=== PATIENT | female | born 1935 | race Caucasian/White ===

== ENCOUNTER → 2017-10-12 11:05 | Outpatient (CLI) | payer MEDICARE, SELFPAY ==
[2017-10-12 15:52] LABS: Absolute Lymphocyte Count 2.11 X10^3/ul (0.83-4.51); Absolute Neutrophil Count 4.8 X10^3/uL (2.0-7.7); Basophil# 0.07 X10^3/uL; Basophil% 0.9 % (0-1); Eosinophils% 1.3 % (0-5); Hematocrit 35.8 % (37-47); Hemoglobin 11.7 g/dl (12.0-15.0); Lymphocyte # 2.11 X10^3/ul (4.0); Lymphocyte % 27.9 % (19-41); Mean Corp Hgb Conc 32.7 g/gl (32-36); Mean Corpuscular Hgb 29.8 pg (27.0-32.0); Mean Corpuscular Volume 91.1 fL (81-99); Mean Platelet Vol. 10.2 fl (6.2-12.0); Monocyte# 0.51 X10^3/uL; Monocyte% 6.7 % (0-10); Neutrophil # 4.77 X10^3/uL (2.7-7.7); Neutrophil % 63.1 % (47-70); Platelet Count 355 K/mm3 (150-450); RBC Distribution Width CV 13.1 % (11.6-14.6); RBC Distribution Width SD 43.2 fl (35.1-43.9); Red Blood Count 3.93 M/mm3 (4.2-5.4); White Blood Count 7.6 K/mm3 (4.4-11.0)
[2017-10-12 16:01] LABS: POSITIVE COUNT NO; POSITIVE DIFFERENTIAL NO; POSITIVE MORPHOLOGY NO
[2017-10-12 16:15] LABS: ALB/GLOB Ratio 0.9 RATIO (0.9-2.4); AST(SGOT) 16 U/L (15-37); Alanine Aminotransfer ALT/SGPT 18 U/L (13-56); Albumin, Serum 3.4 g/dL (3.2-5.0); Alkaline Phosphatase 74 U/L (45-117); Anion Gap 10 (5-15); BUN 19 mg/dL (7-18); CRP 5.39 mg/L (0.0-3.0); Calcium,Total 8.9 mg/dL (8.5-10.1); Chloride 105 mmol/L (98-107); Creatinine, Serum 0.79 mg/dL (0.55-1.02); EST Glomerular Filtration Rate 74 mL/min (>60); Est Glom Filt Rate - Afr Amer 89 mL/min (>60); Globulin 3.6 g/dL (2.2-4.2); Glucose 134 mg/dL (74-106); Potassium 3.9 mmol/L (3.5-5.1); Sodium Level 140 mmol/L (136-145)
[2017-10-12 16:29] LABS: Erythrocyte Sedimentation Rate 13 mm/hr (0-30)
== END ==
PROVIDERS: Family Provider Family Medicine; PCP Family Medicine; Visit Provider Family Medicine
DX: R19.7 Diarrhea, unspecified (principal)
CPT/HCPCS: 36415; 80053; 85025; 85652; 86140

== ENCOUNTER → 2017-10-26 10:35 | Outpatient (CLI) | payer OTHER, SELFPAY ==
[2017-10-26 12:29] LABS: Vitamin B12 801 pg/mL (211-911)
[2017-10-26 12:40] LABS: Ferritin 54 ng/mL (8-252); Iron 81 ug/dL (50-170); T4 Free Direct 1.25 ng/dL (0.76-1.46); Thyroid Stim Hormone (TSH) 2.53 uIU/mL (0.358-3.74)
== END ==
PROVIDERS: Family Provider Family Medicine; PCP Family Medicine; Visit Provider Family Medicine
DX: E03.9 Hypothyroidism, unspecified (principal); E11.9 Type 2 diabetes mellitus without complications; E53.8 Deficiency of other specified B group vitamins; D64.9 Anemia, unspecified
CPT/HCPCS: 36415; 82607; 82728; 83540; 84439; 84443

== ENCOUNTER 2018-06-04 18:01 | Emergency (ER) | payer MEDICARE, SELFPAY ==
[2018-06-04 18:01] VITALS: BP 157/71; PULSE 52; RESP 16; TEMP 36.4; O2SAT 98; BMI 26.5
--- NOTE | 2018-06-04 18:41 | ED.VISSUMM ---
- ER Visit Summary Date of Service: 06/04/18 Chief Complaint: Left knee pain History of Present Illness: The patient is a 82 F increasing knee pain over the past 2 weeks. Worse with standing improved with rest. No trauma. Has had problem for years ago saw her PCP had had an injection at one time, states at that time did not help. Pain is worse today. Using Aleve worsening her stomach. Has tried Tylenol. No paresthesias. No injuries. Has not seen an orthopedist for this. Denies any catching or locking sensations. Physical Examination: General: Alert and oriented ?3, no acute distress HEENT: Normocephalic, atraumatic. Moist mucosa membranes Neck: supple, nontender. Cardiovascular: Regular rate and rhythm, no murmurs Respiratory: Normal breath sounds, symmetric, no distress Abdomen: Soft, nontender, nondistended Extremities: Left lower extremity: Negative logroll. Knee extensor mechanism intact. There is some effusion medial aspect of the knee no warmth or redness. Range of motion is intact. Negative varus and valgus. Neuro: no focal neurological deficits. Test Results: Left knee x-ray: Degenerative changes of the knee primary medially. Emergency Department Course and Treatment: Patient nontraumatic knee pain with swelling. No catching or locking. X-ray confirms degenerative changes. Discussed with patient due to diabetes history for joint injection to try to help with symptoms. She was given tramadol which she tolerated. Total of 40 mg Kenalog and 2 mL of Sensorcaine placed syringe of sterile conditions with a lateral approach joint injection performed with no complications. Provide tramadol use as needed she is given follow-up with orthopedic on-call along with her PCP for outpatient reevaluation. OARRS negative. Discussed side effects of constipation and sedation. Patient states she has been having loose stools. She will monitor, stool softeners as needed. Treatment Plan: [] Disposition: Discharge Impression: Left knee osteoarthritis status post joint injection This note was generated with [employer] dictation software. It may contain incorrect words, spelling, and punctuation that were not noted in review of the chart prior to signing ED Disposition - Plan for ED Patient: Disposition: Home or Assisted Living Chief Complaint: Lower Extremity Injury Diagnosis: Osteoarthritis of left knee Instructions: Osteoarthritis: Injections or Surgery Prescriptions: traMADol [Ultram] 50 mg PO Q4H PRN PRN 3 Days #12 tablet PRN Reason: Pain Referrals: Mariano Dao MD [Primary Care Provider] - 3-5 Days Julio Bennett MD [STAFF PHYSICIAN] - 3-5 Days Additional Instructions: Status post 40 mg Kenalog and 2 mL of Sensorcaine injection left knee lateral approach. Follow-up as an outpatient for reevaluation.
--- NOTE | 2018-06-04 18:57 | RAD_ITS ---
STUDY: X-RAY - LEFT KNEE REASON FOR EXAM: Female, 82 years old. Pain, swelling TECHNIQUE: 4 view(s) of the knee. COMPARISON: None. FINDINGS: Normal visualized distal femur. Normal visualized proximal tibia and fibula. Normal proximal tibiofibular articulation. Degenerative spurring and narrowing at the medial femorotibial compartment. Degenerative spurring at the lateral femorotibial compartment. Degenerative spurring slightly narrowed patellofemoral articulation. The soft tissue structures are unremarkable. RAD/Knee 4 or More Views IMPRESSION: Degenerative changes of the knee. Electronically Signed: Yayo Mcmullen DO at 19:22 EST Tel [phone], Service support ,
[2018-06-04] MEDS: traMADol 50 MG Tablet PO (19:05)
[2018-06-04] MEDS: Bupivacaine Mpf 0.5% 30 ML VIAL INFILT (19:06)
[2018-06-04] MEDS: Triamcinolone Acetonide 40 MG/ML Vial IU (19:06)
[2018-06-04 19:56] VITALS: BP 127/81; PULSE 59; RESP 15; O2SAT 98
== END 2018-06-04 20:03 | disposition home or self-care (01) ==
PROVIDERS: Emergency Provider Emergency Medicine; Family Provider Family Medicine; PCP Family Medicine
DX: M17.12 Unilateral primary osteoarthritis, left knee (principal); K21.9 Gastro-esophageal reflux disease without esophagitis; E11.9 Type 2 diabetes mellitus without complications; I10 Essential (primary) hypertension; Z79.84 Long term (current) use of oral hypoglycemic drugs; Z79.899 Other long term (current) drug therapy
CPT/HCPCS: 20610; 73564; 99284

== ENCOUNTER → 2018-09-06 10:29 | Outpatient (CLI) | payer MEDICARE, SELFPAY ==
[2018-09-06 12:43] LABS: Absolute Lymphocyte Count 2.25 X10^3/ul (0.83-4.51); Absolute Neutrophil Count 5.4 X10^3/uL (2.0-7.7); Basophil% 1.2 % (0-1); Eosinophil# 0.15 X10^3/uL; Eosinophils% 1.8 % (0-5); Hematocrit 37.5 % (37-47); Hemoglobin 12.3 g/dl (12.0-15.0); Lymphocyte # 2.25 X10^3/ul (4.0); Lymphocyte % 26.6 % (19-41); Mean Corp Hgb Conc 32.8 g/gl (32-36); Mean Corpuscular Hgb 31.5 pg (27.0-32.0); Mean Corpuscular Volume 95.9 fL (81-99); Mean Platelet Vol. 10.1 fl (6.2-12.0); Monocyte# 0.56 X10^3/uL; Monocyte% 6.6 % (0-10); Neutrophil % 63.7 % (47-70); Platelet Count 385 K/mm3 (150-450); RBC Distribution Width CV 12.9 % (11.6-14.6); RBC Distribution Width SD 43.4 fl (35.1-43.9); Red Blood Count 3.91 M/mm3 (4.2-5.4); White Blood Count 8.5 K/mm3 (4.4-11.0)
[2018-09-06 12:46] LABS: POSITIVE COUNT NO; POSITIVE DIFFERENTIAL NO; POSITIVE MORPHOLOGY NO
[2018-09-06 12:56] LABS: Vitamin B12 813 pg/mL (211-911)
[2018-09-06 13:23] LABS: Anion Gap 8 (5-15); BUN 13 mg/dL (7-18); BUN/Creat Ratio 16.5 RATIO (10-20); Chloride 106 mmol/L (98-107); Creatinine, Serum 0.79 mg/dL (0.55-1.02); EST Glomerular Filtration Rate 74 mL/min (>60); Est Glom Filt Rate - Afr Amer 90 mL/min (>60); Glucose 142 mg/dL (74-106); Iron 92 ug/dL (50-170); Potassium 3.8 mmol/L (3.5-5.1); Sodium Level 140 mmol/L (136-145); T4 Free Direct 1.24 ng/dL (0.76-1.46); Thyroid Stim Hormone (TSH) 1.86 uIU/mL (0.358-3.74)
== END ==
PROVIDERS: Family Provider Family Medicine; PCP Family Medicine; Visit Provider Family Medicine
DX: E11.9 Type 2 diabetes mellitus without complications (principal); E03.9 Hypothyroidism, unspecified; D64.9 Anemia, unspecified
CPT/HCPCS: 36415; 80048; 82607; 83540; 84439; 84443; 85025

== ENCOUNTER → 2019-02-22 10:52 | Outpatient (CLI) | payer MEDICARE, SELFPAY ==
--- NOTE | 2019-02-22 11:08 | BD_ITS ---
STUDY: DUAL ENERGY X-RAY ABSORPTIOMETRY / DXA REASON FOR EXAM: Female, 83 years old. The patient is postmenopausal. Loss of height. TECHNIQUE: Bone Mineral Density (BMD) measurements of lumbar spine and bilateral hips were obtained. COMPARISON: Comparison is made with prior examination dated June 15, 2012. FINDINGS: Lumbar Spine (L1-L4): g/cm2 (1.286) / T-score (1.0) / Z-score (2.9) Findings are suggestive of normal bone density with a low fracture risk. Left Femur Total: g/cm2 (0.726) / T-score (-2.2) / Z-score (-0.1) Left Femoral Neck: g/cm2 (0.707) / T-score (-2.4) / Z-score (-0.1) Right Femur Total: g/cm2 (0.731) / T-score (-2.2) / Z-score (-0.1) Right Femoral Neck: g/cm2 (0.698) / T-score (-2.4) / Z-score (-0.2) The T-Scores on the most recent prior examination were: Lumbar Spine (L1-L4): There has been improvement of bone density since the previous examination. Left Femur Total: which represents a worsening of 14.5%. Right Femur Total: which represents a worsening of 12.9%. BD/Dexa Bone Density Study IMPRESSION: The patient is considered osteopenic as outlined below according to World Biju Organization (WHO) criteria with a high fracture risk. There has been worsening of bone density since the previous examination. Reference Information: The T-score is the number of standard deviations above or below the standard which is normal for young adults at their peak bone mineral density. The World Health Organization (WHO) interprets the T-scores as follows: Above -1 Normal bone density Between -1 and -2.5 Osteopenia Equal to / or below -2.5 Osteoporosis As a practical clinical guideline, osteopenia may be graded as follows: Mild -1 through -1.5 Moderate -1.6 through -2.0 Severe -2.1 through -2.4 The Z-score is the number of standard deviations above or below age-matched controls. A Z-score of less than -1.5 would be considered abnormal. References: 1. NIH Osteoporosis and Related Bone Diseases http://www.osteo.org 2. International Society for Clinical Densitometry http://www.iscd.org 3. National Osteoporosis Foundation http://www.nof.org Electronically Signed: Sunil Laguna, at 11:00 EDT , Service support ,
== END ==
PROVIDERS: Family Provider Family Medicine; PCP Family Medicine; Referring Provider Family Medicine; Visit Provider Family Medicine
DX: M85.80 Other specified disorders of bone density and structure, unspecified site (principal); Z78.0 Asymptomatic menopausal state; R29.890 Loss of height
CPT/HCPCS: 77080

== ENCOUNTER → 2019-08-30 | Outpatient (CLI) | payer MEDICARE, SELFPAY ==
[2019-08-30 18:09] LABS: Absolute Lymphocyte Count 3.17 X10^3/uL (0.83-4.51); Eosinophil# 0.14 X10^3/uL; Eosinophils% 1.4 % (0-5); Hematocrit 36.8 % (37-47); Lymphocyte # 3.17 X10^3/ul (4.0); Lymphocyte % 31.2 % (19-41); Mean Corp Hgb Conc 32.6 g/dL (32-36); Mean Corpuscular Hgb 30.5 pg (27.0-32.0); Mean Corpuscular Volume 93.6 fL (81-99); Mean Platelet Vol. 9.9 fl (6.2-12.0); Monocyte# 0.76 X10^3/uL; Monocyte% 7.5 % (0-10); NRBC Flagged by Analyzer 0 % (0-5); Neutrophil # 5.96 X10^3/uL (2.7-7.7); Neutrophil % 58.5 % (47-70); Platelet Count 407 K/mm3 (150-450); RBC Distribution Width CV 12.5 % (11.6-14.6); Red Blood Count 3.93 M/mm3 (4.2-5.4); White Blood Count 10.2 K/mm3 (4.4-11.0)
[2019-08-30 19:15] LABS: Vitamin B12 675 pg/mL (211-911)
[2019-08-30 19:18] LABS: Anion Gap 5 (5-15); BUN 20 mg/dL (7-18); Calcium,Total 9.2 mg/dL (8.5-10.1); Chloride 107 mmol/L (98-107); Creatinine, Serum 1.05 mg/dL (0.55-1.02); EST Glomerular Filtration Rate 53 mL/min (>60); Est Glom Filt Rate - Afr Amer 64 mL/min (>60); Ferritin 81 ng/mL (8-252); Glucose 142 mg/dL (74-106); Iron 58 ug/dL (50-170); Potassium 4.1 mmol/L (3.5-5.1); Sodium Level 140 mmol/L (136-145); Thyroid Stim Hormone (TSH) 2.49 uIU/mL (0.358-3.74)
== END | disposition home or self-care (01) ==
LOC: BFHLAB 16:35
PROVIDERS: PCP Family Medicine; Visit Provider Family Medicine
DX: E78.5 Hyperlipidemia, unspecified (principal); E03.9 Hypothyroidism, unspecified; D64.9 Anemia, unspecified; E11.9 Type 2 diabetes mellitus without complications
CPT/HCPCS: 36415; 80048; 82607; 82728; 83540; 84443; 85025

== ENCOUNTER 2022-11-11 16:35 | Inpatient (IN) | payer MEDICARE, MEDICAID, SELFPAY ==
[2022-11-11 16:37] VITALS: BP 140/61; PULSE 76; RESP 19; TEMP 36.1; O2SAT 99; BMI 26.2
[2022-11-11 16:48] VITALS: BP 139/48; PULSE 69; RESP 13; O2SAT 99
--- NOTE | 2022-11-11 17:06 | CT_ITS ---
STUDY: CT BRAIN WITHOUT CONTRAST REASON FOR EXAM: Female, 87 years old. altered mental status Individualized dose optimization techniques were used for this CT. TECHNIQUE: Transaxial CT imaging of the brain was performed without administration of intravenous contrast material. COMPARISON: 02.07.17 FINDINGS: There are calcifications around the carotid artery. These are noted in the cavernous carotid arteries. Normal calvarium. Normal soft tissues. There is mild cerebral atrophy with widening of the extra-axial spaces and ventricular dilatation. There are areas of decreased attenuation within the white matter tracts of the supratentorial brain, consistent with microvascular disease changes. Normal basal ganglia and thalami. Normal brainstem. There is mild cerebellar atrophy. There is no intracranial hemorrhage. There are no findings of an acute ischemic infarction. Normal visualized paranasal sinuses. ASPECTS Score for Acute Strokes: 10/10 CT/Brain/Head without Contrast IMPRESSION: There are no acute findings. Chronic involutional changes of the brain. Electronically Signed: Abran Collins MD at 18:15 EDT ,
--- NOTE | 2022-11-11 17:07 | EKG12_ITS ---
Test Reason : GENERAL Blood Pressure : / mmHG Vent. Rate : 074 BPM Atrial Rate : 074 BPM P-R Int : 152 ms QRS Dur : 082 ms QT Int : 396 ms P-R-T Axes : 052 006 049 degrees QTc Int : 439 ms Normal sinus rhythm Normal ECG Confirmed by LLOYD SAMUELS, RAIZA ([id number]), associate editor BULMARO PAK ([id number]) on 11/13/2022 9:07:52 AM Referred By: Confirmed By:RAIZA DESAI MD
[2022-11-11] MEDS: 0.9% Normal Saline 1,000 ML 150 ML IV (17:13)
--- NOTE | 2022-11-11 17:30 | EDS_ITS ---
HPI History of Present Illness Chief Complaint: Nausea/Vomiting/Diarrhea Detail of Chief Complaint: Generalized weakness Informant: patient and family Onset/Context/Timing Onset: Weeks Narrative Narrative: Patient presents via EMS from assisted living at [facility]. Son is at bedside and provides much of the history. He notes that over the last 2+ weeks patient has had increasing lethargy. She has not been wanting to get up to walk at all and has been refusing her meals. Lab work today reportedly showed that her sodium had dropped to 127 and she was sent in. Patient complains of allover body pain. She denies fever or cough. [facility] Medical History Alzheimer's disease, unspecified Depression, unspecified GERD (gastroesophageal reflux disease) Hypertensive chronic kidney disease with stage 1 through stage 4 chronic kidney disease, or unspecified chronic kidney disease Hypothyroidism, unspecified Type 2 diabetes mellitus with unspecified complications Home Medications metformin 500 mg tablet 500 mg PO DAILY DIABETES 11/10/13 [History Last Taken 02/06/17 08:00] propranolol 20 mg tablet 20 mg PO DAILY BLOOD PRESSURE 11/10/13 [History Last Taken 02/06/17 08:00] levothyroxine 25 mcg tablet 25 mcg PO DAILY THYROID 02/08/17 [History Last Taken 02/06/17 08:00] atorvastatin 10 mg tablet 10 mg PO QHS CHOLESTEROL 11/11/22 [History Last Taken Unknown] cholecalciferol (vitamin D3) 1,250 mcg (50,000 unit) tablet 1,250 mcg PO WE SUPPLEMENT 11/11/22 [History Last Taken Unknown] donepezil 10 mg tablet 100 mg PO QHS MEMORY 11/11/22 [History Last Taken Unknown] sertraline 25 mg tablet 25 mg PO QODAY DEPRESSION/ANXIETY 11/11/22 [History Last Taken Unknown] Allergy/AdvReac Type Severity Reaction Status Date / Time Penicillins [PCN] AdvReac Diarrhea Verified 11/11/22 16:49 Social History Smoking Status: Never smoker ROS ROS ED Constitutional Constitutional ED: Denies chills or fever(s) ENT ENT ED: Denies rhinorrhea or sore throat Cardiovascular Cardiovascular: Denies chest pain or palpitations Respiratory/Chest Respiratory/Chest: Denies cough or dyspnea Gastrointestinal Gastrointestinal: Reports abdominal pain, diarrhea, nausea and vomiting Genitourinary Genitourinary ED: Denies dysuria Musculoskeletal Musculoskeletal: Reports myalgias; Denies back pain or extremity pain Integumentary Denies Abrasions or rash Neurologic Neurologic: Reports weakness; Denies headache(s) Allergic/Immunologic Allergic/Immunologic ED: Denies lip swelling or urticaria EXAM Physical Exam Narrative Exam Narrative: Resting both eyes closed. Will answer questions of specifically asked, however let son answer most questions. Const Vital Signs: 11/11/22 16:37 11/11/22 16:48 11/11/22 18:38 Temperature 97 F L Temperature Source Temporal Pulse Rate 76 69 72 Respiratory Rate 19 H 13 14 Blood Pressure 140/61 H 139/48 H 123/48 H Blood Pressure Mean 87 78 73 Pulse Ox 99 99 96 Oxygen Delivery Method Room Air Room Air Room Air 11/11/22 19:04 Temperature Temperature Source Pulse Rate 70 Respiratory Rate 70 H Blood Pressure 118/50 L Blood Pressure Mean 72 Pulse Ox 96 Oxygen Delivery Method Room Air Positive well nourished and well developed General Appearance ED: well developed HEENT Reports normocephalic and head/scalp atraumatic Eyes PERRL and EOMs intact bilaterally Neck supple Chest Wall inspection of chest normal and palpation of chest normal Resp normal respiratory effort and clear to auscultation bilaterally Cardio regular rate and regular rhythm GI non-tender Auscultation: hypoactive bowel sounds Palpation: soft Extremity Extremity Narrative: 2+ bilateral lower extremity edema, symmetric Neuro Neuro Narrative: Patient alert and answers questions if directly asked. Speaks slowly. Psych mental status grossly normal Skin no rashes or lesions noted MDM MDM MDM Narrative Medical decision making narrative: Patient placed on scientific investigator. EKG obtained to evaluate for cardiac arrhythmia/ischemia. Labwork obtained to evaluate for leukocytosis, anemia, and electrolyte derangement. Urinalysis obtained to evaluate for infection/hematuria. Normal saline initiated. History & Record Review Discussion w/independent historian: Family Lab Data Attestation: I reviewed the patient's lab results. Labs: Laboratory Results - last 24 hr 11/11/22 11/11/22 11/11/22 16:42 16:42 17:43 WBC 13.9 H RBC 4.23 Hgb 13.5 Hct 37.5 MCV 88.7 MCH 31.9 MCHC 36.0 RDW Std Deviation 39.2 RDW Coeff of Kristal 12.0 Plt Count 506 H MPV 8.8 Immature Gran % (Auto) 0.400 Neut % (Auto) 59.4 Lymph % (Auto) 31.3 [place] % (Auto) 7.4 Eos % (Auto) 0.9 Baso % (Auto) 0.6 Absolute Neuts (auto) 8.3 H Absolute Lymphs (auto) 4.35 Nucleated RBC % 0 Sodium 127 L Potassium 3.4 L Chloride 91 L Carbon Dioxide 28.0 Anion Gap 8 BUN 21 H Creatinine 1.30 H Estim Creat Clear Calc 27.90 Est GFR (MDRD) Af Amer 50 L Est GFR (MDRD) Non-Af 41 L BUN/Creatinine Ratio 16.2 Glucose 159 H Calcium 9.9 Total Bilirubin 1.90 H Direct Bilirubin 0.47 H AST 25 ALT 30 Alkaline Phosphatase 45 Ammonia 16.0 Troponin I High Sens 13 Total Protein 7.4 Albumin 3.9 Globulin 3.5 Urine Color Urine Clarity Urine pH Ur Specific [place] Urine Protein Urine Glucose (UA) Urine Ketones Urine Occult Blood Urine Nitrite Urine Bilirubin Urine Urobilinogen Ur Leukocyte Esterase Urine RBC Urine WBC Ur Squamous Epith Cells Urine Bacteria Urine Mucus 11/11/22 19:47 WBC RBC Hgb Hct MCV MCH MCHC RDW Std Deviation RDW Coeff of Kristal Plt Count MPV Immature Gran % (Auto) Neut % (Auto) Lymph % (Auto) [place] % (Auto) Eos % (Auto) Baso % (Auto) Absolute Neuts (auto) Absolute Lymphs (auto) Nucleated RBC % Sodium Potassium Chloride Carbon Dioxide Anion Gap BUN Creatinine Estim Creat Clear Calc Est GFR (MDRD) Af Amer Est GFR (MDRD) Non-Af BUN/Creatinine Ratio Glucose Calcium Total Bilirubin Direct Bilirubin AST ALT Alkaline Phosphatase Ammonia Troponin I High Sens Total Protein Albumin Globulin Urine Color Yellow Urine Clarity Clear Urine pH 6.0 Ur Specific [place] 1.010 Urine Protein Negative Urine Glucose (UA) Normal Urine Ketones 5 H Urine Occult Blood Negative Urine Nitrite Negative Urine Bilirubin Negative Urine Urobilinogen Normal Ur Leukocyte Esterase Negative Urine RBC 0 SEEN Urine WBC 0 SEEN Ur Squamous Epith Cells 0 SEEN Urine Bacteria 0 SEEN Urine Mucus 0 SEEN Radiography Chest X-Ray - ED: 1 View, Read by ED Physician, Chronic Changes and No Infiltrates Diagnostic Testing: Clinical Impression(s) from Imaging Studies Brain CT 11/11/22 17:06 IMPRESSION: There are no acute findings. Chronic involutional changes of the brain. Electronically Signed: Abran Collins MD at 18:15 EDT , Chest X-Ray 11/11/22 17:33 IMPRESSION: There are no acute findings. Electronically Signed: Abran Collins MD at 18:17 EDT , Abdomen/Pelvis CT 11/11/22 19:02 IMPRESSION: (NOT LISTED IN ORDER OF SIGNIFICANCE) There are multiple colonic diverticula consistent with diverticulosis. Other findings as above. Electronically Signed: Abran Collins MD at 20:31 EDT , EKG Initial EKG: Attestation: I personally reviewed and interpreted this EKG as follows: Interpretation: Sinus Rhythm (Sinus at 74 with no acute ischemia.) Treatment and Re-Evaluation :: CBC reveals a white count of 13.9 with normal differential. Hemoglobin normal at 13.5. Chemistry studies reveal a serum of 127 with a potassium of 3.4 and a chloride of 91. BUN is 21 and creatinine is 1.3. LFTs reveal a total bili of 1.9 and direct bili 0.47. ALT and AST are normal. Ammonia is normal at 16. Urinalysis reveals no evidence of acute infection. Nursing staff initially straight cath the patient for urinalysis. They report that her depends was dry with a were unable to get any urine with a catheter. In light of that a CT flank was obtained to ensure no obstructing cause. No acute findings are noted on CT of the abdomen and pelvis. At this time patient is being given normal saline secondary to her hyponatremia. IV potassium replacement is being given for her potassium level of 3.4. Patient has not been able to get up and ambulate or care for herself and is only in assisted living at this time. I will speak with hospitalist regarding admission for electrolyte correction and further evaluation by physical therapy. Son at bedside is updated. Discharge Plan Triage Chief Complaint: Nausea/Vomiting/Diarrhea ED Provider: Nancy Ewing Dx/Rx/DC Orders Clinical Impression: Weakness, Declining functional status, Hyponatremia, Hypokalemia Prescriptions: No Action metformin 500 MG tablet 500 mg PO DAILY propranolol 20 MG tablet 20 mg PO DAILY levothyroxine 25 MCG tablet 25 mcg PO DAILY atorvastatin 10 mg tablet 10 mg PO QHS donepezil 10 mg tablet 100 mg PO QHS sertraline 25 mg tablet 25 mg PO QODAY cholecalciferol (vitamin D3) 1,250 mcg (50,000 unit) Tablet 1,250 mcg PO WE Primary Care Provider: ALANNAH BENITO Referrals: Mariano Dao MD [Non-Staff] - Disposition Disposition: Acute Care Hospital [facility]
--- NOTE | 2022-11-11 17:33 | RAD_ITS ---
STUDY: XR Chest 1 View 11/11/2022 5:32 PM REASON FOR EXAM: Female, 87 years old. CHEST PAIN cough COMPARISON: None TECHNIQUE: XR Chest 1 View FINDINGS: There is no demonstrated pleural abnormality. Normal heart size. Normal mediastinum. Normal joon. Prominent appearing increased interstitial lung markings. Normal visualized pulmonary arteries. There is atherosclerotic calcification of the aortic arch with tortuosity. There are diffuse degenerative changes of the visualized thoracic spine. There is degenerative osteoarthritis of the bilateral shoulders. There is no demonstrated abnormality of the visualized soft tissue structures of the upper abdomen. RAD/Chest 1 View (Portable) IMPRESSION: There are no acute findings. Electronically Signed: Abran Collins MD at 18:17 EDT ,
[2022-11-11 17:38] LABS: Absolute Lymphocyte Count 4.35 X10^3/uL (0.83-4.51); Absolute Neutrophil Count 8.3 X10^3/uL (2.0-7.7); Basophil# 0.08 X10^3/uL; Basophil% 0.6 % (0-1); Eosinophil# 0.13 X10^3/uL; Eosinophils% 0.9 % (0-5); Hematocrit 37.5 % (37-47); Hemoglobin 13.5 g/dL (12.0-15.0); Lymphocyte # 4.35 X10^3/ul (0.83-4.51); Lymphocyte % 31.3 % (19-41); Mean Corpuscular Hgb 31.9 pg (27.0-32.0); Mean Corpuscular Volume 88.7 fL (81-99); Mean Platelet Vol. 8.8 fl (6.2-12.0); Monocyte# 1.03 X10^3/uL; Monocyte% 7.4 % (0-10); NRBC Flagged by Analyzer 0 % (0-5); Neutrophil # 8.25 X10^3/uL (2.7-7.7); Neutrophil % 59.4 % (47-70); Platelet Count 506 K/mm3 (150-450); RBC Distribution Width SD 39.2 fl (35.1-43.9); Red Blood Count 4.23 M/mm3 (4.2-5.4); White Blood Count 13.9 K/mm3 (4.4-11.0)
[2022-11-11 17:55] LABS: AST(SGOT) 25 U/L (15-37); Alanine Aminotransfer ALT/SGPT 30 U/L (13-56); Albumin, Serum 3.9 g/dL (3.2-5.0); Alkaline Phosphatase 45 U/L (45-117); Anion Gap 8 (5-15); BUN 21 mg/dL (7-18); BUN/Creat Ratio 16.2 RATIO (10-20); Bilirubin, Direct 0.47 mg/dL (0.00-0.30); Calcium,Total 9.9 mg/dL (8.5-10.1); Chloride 91 mmol/L (98-107); EST Glomerular Filtration Rate 41 mL/min (>60); Est Glom Filt Rate - Afr Amer 50 mL/min (>60); Globulin 3.5 g/dL (2.2-4.2); Glucose 159 mg/dL (74-106); Potassium 3.4 mmol/L (3.5-5.1); Protein, Total 7.4 g/dL (6.4-8.2); Sodium Level 127 mmol/L (136-145); Troponin-I HS 13 pg/mL (3.0-54.0)
[2022-11-11] MEDS: Potassium Chloride 10mEq/100mL 10 MEQ/100 ML IV.SOLN. 100 MEQ IV BOLUS ×4 (18:22→22:56)
[2022-11-11 18:38] VITALS: BP 123/48; PULSE 72; RESP 14; O2SAT 96
--- NOTE | 2022-11-11 19:02 | CT_ITS ---
STUDY: CT Abdomen And Pelvis W/O Contrast Injection 11/11/2022 8:27 PM REASON FOR EXAM: Female, 87 years old. Abdominal pain abd pain Individualized dose optimization techniques were used for this CT. COMPARISON: 02.07.17. TECHNIQUE: CT Abdomen And Pelvis W/O Contrast Injection FINDINGS: There are atherosclerotic calcifications of visualized coronary arteries. The visualized portions of the heart are within normal limits. Normal liver. There is non-visualization of the gallbladder, which may be secondary to either contraction or a prior cholecystectomy. Normal spleen. Normal pancreas. Normal bilateral adrenal glands. No acute findings of the right kidney. There is a 12mm hypodensities in the left kidney. These are consistent for cysts. No follow up required. Normal visualized stomach. Normal small intestine. There are multiple colonic diverticula consistent with diverticulosis. There is non-visualization of the appendix. There are calcifications of the abdominal aorta. This is consistent for atherosclerotic disease. There is NO abdominal aortic aneurysm. Vascular workup can be obtained based on clinical correlation. Normal inferior vena cava. Subcentimeter mesenteric lymph nodes. Normal urinary bladder. Stable t12 compression fracture. There is an umbilical hernia containing fat. There are diffuse degenerative changes of the visualized lumbar spine. Scoliosis CT/Abdomen/Pelvis without Cont IMPRESSION: (NOT LISTED IN ORDER OF SIGNIFICANCE) There are multiple colonic diverticula consistent with diverticulosis. Other findings as above. Electronically Signed: Abran Collins MD at 20:31 EDT ,
[2022-11-11 19:04] VITALS: BP 118/50; PULSE 70; RESP 70; O2SAT 96
--- NOTE | 2022-11-11 19:04 | ED.RN ---
straight cath unsuccessful at this time.
[2022-11-11 19:55] LABS: Bacteria 0 SEEN /hpf (None Seen); Mucous, Urine 0 SEEN /hpf (<or=2+); Red Blood Cells-Urine 0 SEEN /hpf (0-5); Squamous Epithelial Cells - UA 0 SEEN /hpf (5-10); White Blood Cells 0 SEEN /hpf (0-5)
[2022-11-11 20:00] LABS: Color, Urine Yellow (Yellow); Glucose, Dipstick Normal (Normal); Ketone-Dipstick 5 mg/dl (Negative); Leukocyte Esterase-Dipstick Negative /ul (Negative); Nitrite-Dipstick Negative (Negative); Occult Blood-Urine Negative /ul (Negative); Protein-Dipstick Negative (Negative); Urine Bilirubin Dipstick Negative (Negative); Urine Clarity Clear (Clear); Urine Urobilinogen Normal (Normal)
--- NOTE | 2022-11-11 21:33 | PCM.HP.STD ---
HPI - General General Date of Admission: 11/11/22 Date of Service: 11/11/22 Chief Complaint: Abnormal labs HPI Narrative MAXIME AMARAL, is a 87 F with a significant history of hypothyroidism and dementia; and who lives at assisted medicine facility at [facility] presenting to the emergency department with abnormal labs. Patient's sodium on the day of presentation was 127 at assisted living facility. For the past 2 to 3 weeks ago patient has been lethargic. She has been sleeping a lot. She has not been eating or drinking. Further patient has not been involving herself in any activity. Reportedly she has been very weak. Also two days before presentation patient had nausea vomiting and diarrhea which has since resolved. At the emergency department initially urine catheterization produced no urine. However during the course of patient's stay at the emergency department patient could not urinate. [facility] Medical History Alzheimer's disease, unspecified Depression, unspecified GERD (gastroesophageal reflux disease) Hypertensive chronic kidney disease with stage 1 through stage 4 chronic kidney disease, or unspecified chronic kidney disease Hypothyroidism, unspecified Type 2 diabetes mellitus with unspecified complications Home Medications metformin 500 mg tablet 500 mg PO DAILY DIABETES 11/10/13 [History Last Taken 02/06/17 08:00] propranolol 20 mg tablet 20 mg PO DAILY BLOOD PRESSURE 11/10/13 [History Last Taken 02/06/17 08:00] levothyroxine 25 mcg tablet 25 mcg PO DAILY THYROID 02/08/17 [History Last Taken 02/06/17 08:00] atorvastatin 10 mg tablet 10 mg PO QHS CHOLESTEROL 11/11/22 [History Last Taken Unknown] cholecalciferol (vitamin D3) 1,250 mcg (50,000 unit) tablet 1,250 mcg PO WE SUPPLEMENT 11/11/22 [History Last Taken Unknown] donepezil 10 mg tablet 100 mg PO QHS MEMORY 11/11/22 [History Last Taken Unknown] sertraline 25 mg tablet 25 mg PO QODAY DEPRESSION/ANXIETY 11/11/22 [History Last Taken Unknown] Allergy/AdvReac Type Severity Reaction Status Date / Time Penicillins [PCN] AdvReac Diarrhea Verified 11/11/22 16:49 Family History Other Diabetes Surgical History H/O section History of bowel resection Social History Smoking Status: Never smoker ROS ROS Narrative Pertinent positives and pertinent negatives as noted in HPI. All other systems were reviewed and are negative Vital Signs Vital Signs Vital Signs: 11/11/22 16:37 11/11/22 16:48 11/11/22 18:38 Temperature 97 F L Temperature Source Temporal Pulse Rate 76 69 72 Respiratory Rate 19 H 13 14 Blood Pressure 140/61 H 139/48 H 123/48 H Blood Pressure Mean 87 78 73 Pulse Ox 99 99 96 Oxygen Delivery Method Room Air Room Air Room Air 11/11/22 19:04 Temperature Temperature Source Pulse Rate 70 Respiratory Rate 70 H Blood Pressure 118/50 L Blood Pressure Mean 72 Pulse Ox 96 Oxygen Delivery Method Room Air Weight Weight: 56.9 kg Body Mass Index (BMI) 26.2 Physical Exam Narrative Physical exam: General: Well-nourished, well-developed. Head: Normocephalic, atraumatic, no tenderness Eyes: Vision is grossly intact. EOMI ENT, no trauma, moist mucous membranes, no rhinorrhea Neck: Nontender, No thyromegaly. CVS: Regular rate and rhythm. S1-S2 present. No murmur, gallop or rub. Respiratory : clear to auscultation bilaterally, chest wall nontender Abdomen: Soft, nontender, nondistended, normal bowel sounds, no masses : Deferred Back: Nontender, no CVA tenderness Extremities: Nontender full range of motion, no trauma Skin: Normal color, no trauma, abrasions Neuro: Alert, oriented, cranial nerves II through XII grossly intact. Psychiatry: With family by bedside. Normal mood. Normal affect. Laughing. Results Lab / Micro Data Result Diagrams: 11/11/22 16:42 11/11/22 16:42 Labs: Laboratory Results - last 24 hr 11/11/22 16:42: WBC 13.9 H, RBC 4.23, Hgb 13.5, Hct 37.5, MCV 88.7, MCH 31.9, MCHC 36.0, RDW Std Deviation 39.2, RDW Coeff of Kristal 12.0, Plt Count 506 H, MPV 8.8, Immature Gran % (Auto) 0.400, Neut % (Auto) 59.4, Lymph % (Auto) 31.3, [place] % (Auto) 7.4, Eos % (Auto) 0.9, Baso % (Auto) 0.6, Absolute Neuts (auto) 8.3 H, Absolute Lymphs (auto) 4.35, Nucleated RBC % 0 11/11/22 16:42: Sodium 127 L, Potassium 3.4 L, Chloride 91 L, Carbon Dioxide 28.0, Anion Gap 8, BUN 21 H, Creatinine 1.30 H, Estim Creat Clear Calc 27.90, Est GFR (MDRD) Af Amer 50 L, Est GFR (MDRD) Non-Af 41 L, BUN/Creatinine Ratio 16.2, Glucose 159 H, Calcium 9.9, Total Bilirubin 1.90 H, Direct Bilirubin 0.47 H, AST 25, ALT 30, Alkaline Phosphatase 45, Troponin I High Sens 13, Total Protein 7.4, Albumin 3.9, Globulin 3.5 11/11/22 17:43: Ammonia 16.0 11/11/22 19:47: Urine Color Yellow, Urine Clarity Clear, Urine pH 6.0, Ur Specific [place] 1.010, Urine Protein Negative, Urine Glucose (UA) Normal, Urine Ketones 5 H, Urine Occult Blood Negative, Urine Nitrite Negative, Urine Bilirubin Negative, Urine Urobilinogen Normal, Ur Leukocyte Esterase Negative, Urine RBC 0 SEEN, Urine WBC 0 SEEN, Ur Squamous Epith Cells 0 SEEN, Urine Bacteria 0 SEEN, Urine Mucus 0 SEEN Radiology Impression Brain CT 11/11/22 17:06 IMPRESSION: There are no acute findings. Chronic involutional changes of the brain. Electronically Signed: Abran Collisn MD at 18:15 EDT , Chest X-Ray 11/11/22 17:33 IMPRESSION: There are no acute findings. Electronically Signed: Abran Collins MD at 18:17 EDT , Abdomen/Pelvis CT 11/11/22 19:02 IMPRESSION: (NOT LISTED IN ORDER OF SIGNIFICANCE) There are multiple colonic diverticula consistent with diverticulosis. Other findings as above. Electronically Signed: Abran Collins MD at 20:31 EDT Reading Location ID and State: [facility] / [place] , Service support , Assessment & Plan Assessment/Plan (1) Hyponatremia: (2) Hypokalemia: (3) Hypertension: (4) Weakness: (5) Declining functional status: PLAN: Plan Hyponatremia Sodium level at the assisted nursing facility on the day of presentation was 127 and repeat at the hospital on presentation was also 127. Chloride at the nursing facility was 87 and repeat at the hospital on presentation was 91. Review of patient record that patient brought from her assisted nursing facility shows that in August of 2022 her sodium was 137; and chloride at that time was 102. Likely secondary to poor intake and recent vomiting and diarrhea.. Normal saline hydration ordered. Trend BMP. Check a.m. cortisol. Check uric acid. Check urine sodium. Check serum and urine osmolality Hypokalemia On presentation her potassium was mildly low at 3.4. Received IV replacement. Will check magnesium. Trend BMP as above. Decline in functional status: Review of outpatient labs showed a TSH on 08/25/2022 was 3.19. PT and OT to work with patient. Case management consult. Leukocytosis: White count of 13.9. With normocytosis of 506, likely reactive/dehydration. Review of outpatient labs showed that her white count on 08/25/2022 was 6.6. Trend. Abdomen pelvis CT?impression by radiologist?There are multiple colonic diverticula consistent with diverticulosis. Abdomen/pelvis CT reviewed by hospitalist: Agrees with radiology interpretation. Urinalysis on presentation was reviewed: Not impressive. Hyperbilirubinemia: Total bilirubin on presentation was 1.90. Direct bilirubin was 0.47. Review of outpatient labs shows that on 08/25/2022 T. bili was 0.6. Likely secondary to acute disease/stress. Trend. Hypothyroidism Stable Levothyroxine continued. Of note thyroid level on 08/25/2022 was 3.19. Diabetes mellitus Blood glucose is stable. In the setting of patient not eating Accu-Chek QACHS without correction scale insulin ordered. Hold metformin. DVT prophylaxis Subcutaneous Lovenox ordered. Charges/Coding Visit Charges Inpatient E&M: 68137 Init Hosp L3
[2022-11-11 21:44] VITALS: BP 134/60; PULSE 75; RESP 17; TEMP 36.6; O2SAT 100
[2022-11-11 22:19] LABS: Osmolality, Urine 227 mOsm/KG
[2022-11-11 22:22] LABS: Urine Sodium 8 mmol/L (Not Establ.)
[2022-11-11 22:32] LABS: Osmolality, Serum 277 mOsm/KG (280-301)
[2022-11-11 22:57] VITALS: BMI 25.5
[2022-11-11 23:01] LABS: Magnesium 1.6 mg/dL (1.6-2.6); Uric Acid 4.3 mg/dL (2.6-6.0)
[2022-11-11 23:08] VITALS: BP 106/41; PULSE 72; RESP 18; TEMP 36.6; O2SAT 99
[2022-11-11] MEDS: Acetaminophen 325 MG Tablet 650 MG PO (23:53)
[2022-11-11] MEDS: MELATONIN 3 MG TABLET PO (23:54)
[2022-11-11] MEDS: Atorvastatin Calcium 10 MG Tablet PO (23:54)
[2022-11-12] VITALS (8 sets, daily range): BP systolic 109–128; BP diastolic 38–54; PULSE 73–85; RESP 14–18; TEMP 36.6–36.9; O2SAT 97–100
[2022-11-12 00:30] LABS: Bedside Glucose 136 mg/dL (74-106)
[2022-11-12] MEDS: 0.9% Normal Saline 1,000 ML 100 ML IV ×2 (00:32→09:16)
[2022-11-12 01:23] LABS: Anion Gap 5 (5-15); BUN 17 mg/dL (7-18); BUN/Creat Ratio 16.5 RATIO (10-20); Calcium,Total 8.4 mg/dL (8.5-10.1); Chloride 102 mmol/L (98-107); Creatinine, Serum 1.03 mg/dL (0.55-1.02); EST Glomerular Filtration Rate 54 mL/min (>60); Est Glom Filt Rate - Afr Amer 65 mL/min (>60); Estimated Creatinine Clearance 34.35 ml/min; Glucose 139 mg/dL (74-106); Potassium 4.1 mmol/L (3.5-5.1); Sodium Level 132 mmol/L (136-145)
[2022-11-12] MEDS: Levothyroxine 25 MCG TABLET PO (04:53)
[2022-11-12] MEDS: Acetaminophen 325 MG Tablet 650 MG PO ×2 (05:48→14:53)
[2022-11-12 06:06] LABS: AST(SGOT) 20 U/L (15-37); Alanine Aminotransfer ALT/SGPT 19 U/L (13-56); Albumin, Serum 2.9 g/dL (3.2-5.0); Alkaline Phosphatase 36 U/L (45-117); Bilirubin, Direct 0.41 mg/dL (0.00-0.30); Globulin 2.8 g/dL (2.2-4.2); Protein, Total 5.7 g/dL (6.4-8.2)
[2022-11-12 06:07] LABS: Vitamin D,25 Hydroxy 43.8 ng/mL
[2022-11-12 06:11] LABS: Bedside Glucose 121 mg/dL (74-106)
[2022-11-12 06:32] LABS: Absolute Lymphocyte Count 3.14 X10^3/uL (0.83-4.51); Absolute Neutrophil Count 7.5 X10^3/uL (2.0-7.7); Basophil# 0.09 X10^3/uL; Basophil% 0.8 % (0-1); Eosinophil# 0.16 X10^3/uL; Eosinophils% 1.4 % (0-5); Hematocrit 31.9 % (37-47); Lymphocyte # 3.14 X10^3/ul (0.83-4.51); Lymphocyte % 26.7 % (19-41); Mean Corp Hgb Conc 34.5 g/dL (32-36); Mean Corpuscular Hgb 31.5 pg (27.0-32.0); Mean Corpuscular Volume 91.4 fL (81-99); Mean Platelet Vol. 8.3 fl (6.2-12.0); Monocyte# 0.84 X10^3/uL; Monocyte% 7.1 % (0-10); NRBC Flagged by Analyzer 0 % (0-5); Neutrophil # 7.49 X10^3/uL (2.7-7.7); Neutrophil % 63.6 % (47-70); Platelet Count 359 K/mm3 (150-450); RBC Distribution Width CV 12.6 % (11.6-14.6); RBC Distribution Width SD 41.6 fl (35.1-43.9); Red Blood Count 3.49 M/mm3 (4.2-5.4); White Blood Count 11.8 K/mm3 (4.4-11.0)
--- NOTE | 2022-11-12 06:59 | PN.HOSP_ITS ---
Reason for Visit Reason for Visit: Diagnoses Hypo-osmolality and hyponatremia (11/11/22) Hypokalemia (11/11/22) Essential (primary) hypertension (11/11/22) Weakness (11/11/22) Other malaise (11/11/22) Subjective Subjective Reports feeling somewhat tired today but does feel better than she did yesterday Objective Data Objective Data Vital Signs: Vital Signs Temp Pulse Resp BP Pulse Ox O2 Del Method 98.3 F 78 18 124/41 H 99 Room Air 11/12/22 04:50 11/12/22 04:50 11/12/22 04:50 11/12/22 04:50 11/12/22 04:50 11/12/22 04:50 Oxygen Delivery Method Room Air Weight: 55.5 kg Body Mass Index (BMI) 25.5 Intake & Output: Intake and Output for Last 24 Hours 11/10/22 11/11/22 11/12/22 23:59 23:59 23:59 Intake Total 1400 / 1400 Balance 1400 / 1400 Lab / Micro Data Result Diagrams: 11/12/22 06:16 11/12/22 00:09 Labs: Laboratory Results - last 24 hr 11/11/22 16:42: WBC 13.9 H, RBC 4.23, Hgb 13.5, Hct 37.5, MCV 88.7, MCH 31.9, MCHC 36.0, RDW Std Deviation 39.2, RDW Coeff of Kristal 12.0, Plt Count 506 H, MPV 8.8, Immature Gran % (Auto) 0.400, Neut % (Auto) 59.4, Lymph % (Auto) 31.3, [place] % (Auto) 7.4, Eos % (Auto) 0.9, Baso % (Auto) 0.6, Absolute Neuts (auto) 8.3 H, Absolute Lymphs (auto) 4.35, Nucleated RBC % 0 11/11/22 16:42: Sodium 127 L, Potassium 3.4 L, Chloride 91 L, Carbon Dioxide 28.0, Anion Gap 8, BUN 21 H, Creatinine 1.30 H, Estim Creat Clear Calc 27.90, Est GFR (MDRD) Af Amer 50 L, Est GFR (MDRD) Non-Af 41 L, BUN/Creatinine Ratio 16.2, Glucose 159 H, Calcium 9.9, Total Bilirubin 1.90 H, Direct Bilirubin 0.47 H, AST 25, ALT 30, Alkaline Phosphatase 45, Troponin I High Sens 13, Total Protein 7.4, Albumin 3.9, Globulin 3.5 11/11/22 16:42: Uric Acid 4.3, Magnesium 1.6 11/11/22 17:43: Ammonia 16.0 11/11/22 19:47: Urine Color Yellow, Urine Clarity Clear, Urine pH 6.0, Ur Specific [place] 1.010, Urine Protein Negative, Urine Glucose (UA) Normal, Urine Ketones 5 H, Urine Occult Blood Negative, Urine Nitrite Negative, Urine Bilirubin Negative, Urine Urobilinogen Normal, Ur Leukocyte Esterase Negative, Urine RBC 0 SEEN, Urine WBC 0 SEEN, Ur Squamous Epith Cells 0 SEEN, Urine Bacteria 0 SEEN, Urine Mucus 0 SEEN 11/11/22 19:47: Urine Osmolality 227, Ur Random Sodium 8 11/11/22 22:17: Serum Osmolality 277 L 11/12/22 00:09: Sodium 132 L, Potassium 4.1, Chloride 102, Carbon Dioxide 25.0, Anion Gap 5, BUN 17, Creatinine 1.03 H, Estim Creat Clear Calc 34.35, Est GFR (MDRD) Af Amer 65, Est GFR (MDRD) Non-Af 54 L, BUN/Creatinine Ratio 16.5, Glucose 139 H, Calcium 8.4 L 11/12/22 00:09: POC Glucose 136 H 11/12/22 05:26: WBC Cancelled, Corrected WBC Cancelled, RBC Cancelled, Hgb Cancelled, Hct Cancelled, MCV Cancelled, MCH Cancelled, MCHC Cancelled, RDW Std Deviation Cancelled, RDW Coeff of Kristal Cancelled, Plt Count Cancelled, MPV Can celled, Immature Gran % (Auto) Cancelled, Neut % (Auto) Cancelled, Lymph % (Auto) Cancelled, [place] % (Auto) Cancelled, Eos % (Auto) Cancelled, Baso % (Auto) Cancelled, Absolute Neuts (auto) Cancelled, Absolute Lymphs (auto) Cancelled, Total Counted Cancelled, Neutrophils % (Manual) Cancelled, Band Neutrophils % Cancelled, Lymphocytes % (Manual) Cancelled, Monocytes % (Manual) Cancelled, Eosinophils % (Manual) Cancelled, Basophils % (Manual) Cancelled, Metamyelocytes % Cancelled, Myelocytes % Cancelled, Promyelocytes % Cancelled, Blast Cells % Cancelled, Plasma Cell % (Manual) Cancelled, Other Cells % Cancelled, Nucleated RBC % Cancelled, Nucleated RBCs/100 WBC Cancelled, Differential Comment Cancelled, Diff Path Review Cancelled, Hypersegmented Neuts Cancelled, Atypical Lymphocytes Cancelled, Reactive Lymphocytes Cancelled, Smudge Cells Cancelled, Toxic Granulation Cancelled, Toxic Vacuolation Cancelled, Dohle Bodies Cancelled, Joaquín Rods Cancelled, Platelet Estimate Cancelled, Plt Morphology Comment Cancelled, RBC Morphology Cancelled, Polychromasia Cancelled, Hypochromasia Cancelled, Poikilocytosis Cancelled, Basophilic Stippling Cancelled, Anisocytosis Cancelled, Microcytosis Cancelled, Macrocytosis Cancelled, Spherocytes Cancelled, Sickle Cells Cancelled, Target Cells Cancelled , Tear Drop Cells Cancelled, Ovalocytes Cancelled, Stomatocytes Cancelled, [place] Bodies Cancelled, [place] Cells Cancelled, Bite Cells Cancelled, Crenated Cell Cancelled, Acanthocytes (Spur) Cancelled, Rouleaux Cancelled, Schistocytes Cancelled 11/12/22 05:26: Vitamin D 25-Hydroxy 43.8, Cortisol 28.20 H 11/12/22 05:26: Total Bilirubin 1.60 H, Direct Bilirubin 0.41 H, AST 20, ALT 19, Alkaline Phosphatase 36 L, Total Protein 5.7 L, Albumin 2.9 L, Globulin 2.8 11/12/22 05:47: POC Glucose 121 H 11/12/22 06:16: WBC 11.8 H, RBC 3.49 L, Hgb 11.0 L, Hct 31.9 L, MCV 91.4, MCH 31.5, MCHC 34.5, RDW Std Deviation 41.6, RDW Coeff of Kristal 12.6, Plt Count 359, MPV 8.3, Immature Gran % (Auto) 0.400, Neut % (Auto) 63.6, Lymph % (Auto) 26.7, [place] % (Auto) 7.1, Eos % (Auto) 1.4, Baso % (Auto) 0.8, Absolute Neuts (auto) 7.5, Absolute Lymphs (auto) 3.14, Nucleated RBC % 0 Radiography Diagnostic Testing: Radiology Impression Brain CT 11/11/22 17:06 IMPRESSION: There are no acute findings. Chronic involutional changes of the brain. Electronically Signed: Abran Collins MD at 18:15 EDT , Chest X-Ray 11/11/22 17:33 IMPRESSION: There are no acute findings. Electronically Signed: Abran Collins MD at 18:17 EDT , Abdomen/Pelvis CT 11/11/22 19:02 IMPRESSION: (NOT LISTED IN ORDER OF SIGNIFICANCE) There are multiple colonic diverticula consistent with diverticulosis. Other findings as above. Electronically Signed: Abran Collins MD at 20:31 EDT , Physical Exam Narrative General: Alert though appears tired, oriented, no apparent distress HEENT: Atraumatic, normocephalic Eyes: Anicteric, normal conjunctiva, extraocular movements grossly intact Neck: Supple Respiratory: Clear to auscultation bilaterally, normal respiratory effort Cardiovascular: Regular rate and rhythm GI: Soft, nontender, nondistended Extremities: Nonpitting edema lower extremities Musculoskeletal: Moving all extremities Neuro: No overt focal neurological deficits Skin: No rashes appreciated Psych: Cooperative Assessment & Plan Assessment/Plan (1) Hyponatremia: (2) Hypokalemia: (3) Hypertension: (4) Weakness: (5) Declining functional status: PLAN: Plan #Failure to thrive -Poor appetite, weakness, functional decline -Sodium 127 on arrival which was felt to be due to her dehydration and was hydrated and this improved -Had a cortisol of 20.2 but given acute hospitalization and illness suspect this is reactive and she does not have any predictive features and does not seem to have any unexplained severe features so do not feel an overnight suppression test is warranted at this time and am cortisol can be rechecked after acute issues resolve -We will obtain TSH and vitamin B12 -PT/OT -Will consider remeron to help with appetite pending her AM labs and progress with continued hydration #Hyponatremia -127 on admission, improved to 132 with hydration -Have continue gentle hydration and consulted nutrition #Elevated bilirubin -Bilirubin 1.6 with direct 0.41 slightly down from yesterday but no elevation in AST or ALT and ALP is low at 36 -CT abd pelvis in ED unimpressive -Tbili was 0.6 on 08/25/22, likely reactive to acute stress and dz, continue to trend. May require further evaluation if not improving. #Hypothyroidism -We will check TSH -Continue Synthroid DVT prophylaxis Subcutaneous Lovenox ordered. Charges/Coding Visit Charges Inpatient E&M: 86825 Subs Hosp L2
[2022-11-12] MEDS: Glucerna Shake 120 ML LIQUID PO (09:16)
[2022-11-12] MEDS: Enoxaparin 30 MG/0.3 ML Syringe SC (09:17)
[2022-11-12] MEDS: Propranolol 10 MG Tablet 20 MG PO (09:17)
[2022-11-12] MEDS: Ergocalciferol 1.25 MG (50, 000 UNIT) Capsule PO (09:18)
--- NOTE | 2022-11-12 11:55 | CASEMGMT ---
Addendum entered by Ariella Nieves 11/12/22 15:37: Ana Rosa informed that precert will be started today. Addendum entered by Ariella Nieves 11/12/22 14:55: [facility] pending pharmacy approval. Ana Rosa informed pharmacy may not approve until tomorrow d/t pharmacist being out today. Ana Rosa states only one med that may be questioned and if so pt could bring it from home. BARBY updated pt daughter, Odette, of plan to accept. Odette shared [place] [facility] of [place] meds at [place] facility and family can bring in whatever may be needed. Addendum entered by Ariella Nieves 11/12/22 13:16: Pt daughter left choices for SNF. [facility] BARBY sent referral to Ana Rosa at [facility]. Ana Rosa to review and update on acceptance after looking over pt case. Original Note: Social Work ? [facility] SW in to meet with pt daughter and on phone with pt son, Daniel, following update from therapy team that pt will need skilled therapy/rehab. SW introduced self and role at the hospital. Family agreeable to discussing discharge planning. A list of SNF providers including quality and resource use data consistent with the patient?s preferred geographic region, medical needs, and insurance network were provided from the [employer] Guide. Family reports not sure if they would want pt to return to [facility] or another option for rehab. Care providers, pharmacy, and demographics verified/updated at this time. PCP: Jeimy Specialists: N/A Preferred Pharmacy: [place] Insurance: [facility] AARP and Medicaid Prescription Benefit:?Yes Living Will/HCPOA: Son Daniel and Daughter Odette?share HCPOA responsibilities LNOK:Son Daniel and Daughter Odette? Living Arrangements: [facility] Transportation:?Pt does not leave [place] facility often but children assist with transportation, if needed. DME: Daughter Odette stated pt walked independent at baseline but has had decrease in ability to ambulate for the past month. ? Pt son and daughter to review choices and respond to SW today after discussing. PLAN: SNF for skilled therapy ELVIA Man
--- NOTE | 2022-11-12 12:03 | CHAPLAIN ---
Type of Pastoral Visit _x__ Initial Visit ___ Follow-up Visit ___ On-call Visit ___ General Patient Visit ___ Spiritual Assessment ___ Family Conference ___ Bereavement ___ Rapid Response ___ Code Blue ___ Other (describe below) Pastoral Care Referral From _x__ Patient _x__ Family ___ Nurse ___ Physician ___ Ld Teacher ___ Starting Gate Driver ___ Other (describe below) Sacrament/Intervention ___ Active listening ___ Anointing ___ Anglican ___ Bereavement ___ Communion ___ Ann-Marie exploration ___ ___ Life review _x__ Prayer ___ Reconciliation ___ Sacrament of Sick _x__ Supportive presence ___ Wedding ___ Other (describe below) Pastoral Comments patient is napping but awakens easily to her name; daughter is sitting with her; pt keeps closing her eyes and states that she is so tired; pt said her only need was sleep but that a prayer would be welcomed; offered ongoing support to patient and daughter
[2022-11-12] MEDS: Ensure Plus High Protein 120 ML LIQUID PO ×3 (13:17→21:56)
[2022-11-12] MEDS: Nystatin Powder 15gm Bottle 1 APPLIC TOPICAL (15:02)
[2022-11-12] MEDS: 0.9% Normal Saline 1,000 ML 50 ML IV (18:58)
[2022-11-12] MEDS: Donepezil HCl 10 MG Tablet PO (21:56)
[2022-11-12] MEDS: Propranolol 10 MG Tablet PO (21:56)
[2022-11-12] MEDS: Atorvastatin Calcium 10 MG Tablet PO (21:56)
[2022-11-13] MEDS: Acetaminophen 325 MG Tablet 650 MG PO (01:03)
[2022-11-13 05:25] VITALS: BP 146/48; PULSE 85; RESP 16; TEMP 37.2; O2SAT 96
[2022-11-13] MEDS: Levothyroxine 25 MCG TABLET PO (05:38)
[2022-11-13 05:46] LABS: Absolute Lymphocyte Count 3.26 X10^3/uL (0.83-4.51); Absolute Neutrophil Count 8.7 X10^3/uL (2.0-7.7); Basophil# 0.09 X10^3/uL; Basophil% 0.7 % (0-1); Eosinophil# 0.23 X10^3/uL; Eosinophils% 1.7 % (0-5); Hematocrit 30.7 % (37-47); Hemoglobin 10.5 g/dL (12.0-15.0); Lymphocyte # 3.26 X10^3/ul (0.83-4.51); Lymphocyte % 24.7 % (19-41); Mean Corp Hgb Conc 34.2 g/dL (32-36); Mean Corpuscular Hgb 31.6 pg (27.0-32.0); Mean Corpuscular Volume 92.5 fL (81-99); Mean Platelet Vol. 8.6 fl (6.2-12.0); Monocyte# 0.82 X10^3/uL; Monocyte% 6.2 % (0-10); NRBC Flagged by Analyzer 0 % (0-5); Neutrophil # 8.74 X10^3/uL (2.7-7.7); Neutrophil % 66.3 % (47-70); Platelet Count 370 K/mm3 (150-450); RBC Distribution Width CV 12.7 % (11.6-14.6); RBC Distribution Width SD 42.5 fl (35.1-43.9); Red Blood Count 3.32 M/mm3 (4.2-5.4); White Blood Count 13.2 K/mm3 (4.4-11.0)
[2022-11-13] MEDS: 0.9% Normal Saline 1,000 ML 50 ML IV (06:02)
[2022-11-13 06:20] LABS: Anion Gap 3 (5-15); BUN 12 mg/dL (7-18); BUN/Creat Ratio 17.2 RATIO (10-20); Calcium,Total 8.3 mg/dL (8.5-10.1); Chloride 106 mmol/L (98-107); EST Glomerular Filtration Rate 85 mL/min (>60); Est Glom Filt Rate - Afr Amer 103 mL/min (>60); Estimated Creatinine Clearance 35.38 ml/min; Glucose 150 mg/dL (74-106); Potassium 3.9 mmol/L (3.5-5.1); Sodium Level 132 mmol/L (136-145); T4 Free Direct 1.48 ng/dL (0.76-1.46); Thyroid Stim Hormone (TSH) 1.14 uIU/mL (0.358-3.74)
[2022-11-13 07:14] VITALS: O2SAT 96
[2022-11-13 07:39] LABS: AST(SGOT) 16 U/L (15-37); Alanine Aminotransfer ALT/SGPT 19 U/L (13-56); Albumin, Serum 2.8 g/dL (3.2-5.0); Alkaline Phosphatase 35 U/L (45-117); Bilirubin, Direct 0.34 mg/dL (0.00-0.30); Ferritin 195 ng/mL (8-252); Globulin 2.8 g/dL (2.2-4.2); Iron 48 ug/dL (50-170); Iron Binding Capacity,Total 214 ug/dL (250-450); Protein, Total 5.6 g/dL (6.4-8.2)
[2022-11-13 08:35] LABS: Vitamin B12 583 pg/mL (211-911)
[2022-11-13] MEDS: Propranolol 10 MG Tablet PO (10:46)
[2022-11-13] MEDS: Enoxaparin 30 MG/0.3 ML Syringe SC (10:47)
[2022-11-13] MEDS: buPROPion (XL) 150 MG TABLET.XL PO (10:47)
[2022-11-13] MEDS: Ensure Plus High Protein 120 ML LIQUID PO ×2 (10:48→14:38)
[2022-11-13 10:58] VITALS: BP 131/42; PULSE 72; RESP 18; TEMP 36.6; O2SAT 98
--- NOTE | 2022-11-13 12:15 | CASEMGMT ---
Social Work SW printed living will from [facility] and placed on pt chart. SW spoke with pt and dgt who state pt does not have a health care POA. Pt states she is not up to discussing this today. SW updated that when she feels better she can request to complete while in the TCU. ELVIA Springer
--- NOTE | 2022-11-13 12:23 | CASEMGMT ---
Social Work Pt's family brought in living will and HCPOA and documents are on the chart. Pt HCPOA designee is her spouse Aniceto Bhatti who has . Pt's alternates are 1. Daniel Bhatti 2. Odette Bhatti and 3. Mariano Bhatti. Pt confirms the accuracy of HCPOA. ELVIA Springer
--- NOTE | 2022-11-13 12:25 | CASEMGMT ---
Social Work Precert has been obtained and pt can discharge to TCU today. Physician updated and states pt is ready for discharge today. SW met with pt and dgt Odette and updated. Pt agreeable to d/c to TCU today. Ana Rosa in TCU notified that pt will admit today. BABRY will fax d/c orders when obtained. Disposition: TCU, skilled level of care ELVIA Springer
--- NOTE | 2022-11-13 13:34 | CASEMGMT ---
Social work Mohit XIONG updated that pt is discharging to TCU. VM left for Direction ssn/ssbn assistant navigator Nano Vázquez updating on disposition. Discharge summary will be faxed to [facility]. ELVIA Springer
--- NOTE | 2022-11-13 13:55 | PCM.TXEXTCAR ---
Diet Diet Order/Speech Therapy: 11/12/22 11:06 Diet: Regular - General Is pt able to select menu?: Yes Routine Orders/Code Status Suppository Type: Dulcolax 10mg Suppository Frequency: Daily PRN Routine Lab Work: BMP (3-5 days) Code Status: DNRCC Therapies Physical Therapy: Eval and Treat Occupational Therapy: Eval and Treat Problem/Diagnosis (1) Hyponatremia: Status: Acute Code(s): E87.1 - Hypo-osmolality and hyponatremia (2) Hypokalemia: Status: Acute Code(s): E87.6 - Hypokalemia (3) Hypertension: Status: Chronic Code(s): I10 - Essential (primary) hypertension (4) Weakness: Status: Acute Code(s): R53.1 - Weakness (5) Declining functional status: Status: Acute Code(s): R53.81 - Other malaise Plan 87-year-old female with hypothyroidism and dementia who presented to [facility] 11/11/2022 with a sodium of 127 at her assisted living that day. She had been down and tired for 2 to 3 weeks and had been sleeping a lot and not eating or drinking and then she had 2 days of nausea vomiting and diarrhea which had since resolved. She was admitted for her sodium and failure to thrive and weakness given her presentation it seemed to be due to dehydration. She was hydrated and improved though did still seem somewhat tired and down despite improvement in strength and sodium. Had a cortisol of 20.2 and slightly elevated bilirubin but suspect this was due to the acute stress and given no signs or symptoms of hypercortisolism do not perform stim test, count was repeated on outpatient basis and consider further work-up if indicated after acute hospitalization. Patient did end up having a downtrend in hemoglobin though given the fluids suspect this is delusional. Discussed with her and her daughter at bedside about FOBT risks and benefits and ultimately they decided if it was positive they would not want to pursue any further work-up or interventions and this was canceled. Iron panel suggestive of anemia of chronic disease. Vitamin D43.8 And vitamin B12 583, TSH 1.14. No indication of any abnormality that would lead to fatigue and down mood. After discussing with daughter do suspect there may be an aspect of depression and it reports that Zoloft if anything made things worse, this has been discontinued and discussed Wellbutrin with her and her daughter and they were agreeable to help with energy. Discussed that weight will need to be monitored but suspect if her mood improves her appetite will as well. Had discussed initially with Jailene but given her feelings of being tired all the time feel Wellbutrin would be a better fit. Denies history of seizure disorder. On day of discharge overall she had felt better but still feeling down and somewhat tired. No other complaints voiced. Discharge instructions as followed: -It is recommended that you focus on nutrition and hydration, recommend a food supplement 4 times daily like Ensure or similar -Recommend BMP to check your creatinine and sodium in 3 to 5 days -You have been taken off of Zoloft, please discontinue this -You have been started on Wellbutrin to help with energy and mood, you will take this in the morning daily -Your propranolol was changed to 10 mg twice daily #Failure to thrive #Hyponatremia improving #Low mood #Elevated total bi resolved #Hypothyroidism Allergies/Procedures Done in Hospital Allergies Penicillins [PCN] Adverse Reaction (Verified 11/11/22 16:49) Diarrhea Procedures: - (CT abd) Type of Care/Length of Stay Estimated LOS: Convalescent Care Less Than 30 days Type of Care Needed: Skilled Rehab Potential: Fair Prognosis: Fair Additional Orders/Day of Discharge Day of Discharge: 11/13/22 Dietary and Speech Recommendations Dietitian Recommendations/Changes: will liberalize diet to regular and adjust ONS to ensure plus high protein 120mL 4x/day w/ medpass given advanced age, evidence of malnutrition. Discharge Plan Admission Admit Date/Time: 11/11/22 21:22 Primary Reason for Your Visit: Abnormal labs and weakness Attending Provider: Bernice Betancur Primary Care Provider: ALANNAH BENITO Consulting Providers: Ryder Brody Instructions Patient Instructions: ED Fall Prevention Additional Instructions / Restrictions: DISCHARGE INSTRUCTIONS PLEASE READ *Please take this with you to your next doctors appointment* -It is recommended that you focus on nutrition and hydration, recommend a food supplement 4 times daily like Ensure or similar -You have been taken off of Zoloft, please discontinue this -You have been started on Wellbutrin to help with energy and mood, you will take this in the morning daily -Your propranolol was changed to 10 mg twice daily -Please call your primary care provider's office upon discharge to schedule a hospital follow up within 1 week. -For any concerning signs or symptoms please call 911 or proceed to the nearest emergency department Discharge Orders/Prescriptions Prescriptions: New bupropion HCl 150 mg Tablet Extended Release 24 Hr 150 mg PO DAILY 30 Days Qty: 30 0RF Ensure Plus High Protein 0.08 gram-1.5 kcal/mL Liquid 120 ml PO 4X/DAY Qty: 237 0RF Continued metformin 500 MG tablet 500 mg PO DAILY propranolol 20 MG tablet 20 mg PO DAILY levothyroxine 25 MCG tablet 25 mcg PO DAILY atorvastatin 10 mg tablet 10 mg PO QHS donepezil 10 mg tablet 100 mg PO QHS cholecalciferol (vitamin D3) 1,250 mcg (50,000 unit) Tablet 1,250 mcg PO WE raloxifene 60 mg Tablet 60 mg PO DAILY Referrals / Follow Up: ALANNAH BENITO [Other] Mariano Dao MD [Non-Staff] - Within 1 Week Disposition Disposition (needs filled in before D/C Order can be placed): [facility]irement Facility
--- NOTE | 2022-11-13 14:06 | PCM.DC.SUM ---
Providers Date of Admission: 11/11/22 Date of Discharge: 11/13/22 Primary Care Physician: ALANNAH BENITO Reason For Visit: DEBILITY, DEHYDRATION Diagnosis Discharge Diagnosis (1) Hyponatremia: Status: Acute Code(s): E87.1 - Hypo-osmolality and hyponatremia (2) Hypokalemia: Status: Acute Code(s): E87.6 - Hypokalemia (3) Hypertension: Status: Chronic Code(s): I10 - Essential (primary) hypertension (4) Weakness: Status: Acute Code(s): R53.1 - Weakness (5) Declining functional status: Status: Acute Code(s): R53.81 - Other malaise Plan #Failure to thrive #Hyponatremia improving #Low mood #Elevated total bi resolved #Hypothyroidism Medications at Discharge Home Medications metformin 500 mg tablet 500 mg PO DAILY DIABETES 11/10/13 propranolol 20 mg tablet 20 mg PO DAILY tremors 11/10/13 levothyroxine 25 mcg tablet 25 mcg PO DAILY THYROID 02/08/17 atorvastatin 10 mg tablet 10 mg PO QHS CHOLESTEROL 11/11/22 cholecalciferol (vitamin D3) 1,250 mcg (50,000 unit) tablet 1,250 mcg PO WE SUPPLEMENT 11/11/22 donepezil 10 mg tablet 100 mg PO QHS MEMORY 11/11/22 raloxifene 60 mg tablet 60 mg PO DAILY Check with primary doctor 11/12/22 bupropion HCl 150 mg 24 hr tablet, extended release 150 mg PO DAILY mood 11/13/22 food supplemt, lactose-reduced 0.08 gram-1.5 kcal/mL oral liquid (Ensure Plus High Protein) 120 ml PO 4X/DAY ensure 11/13/22 Hospital Course Summary of Care Provided Minutes Spent on Discharge: 32 Hospital Course: 87-year-old female with hypothyroidism and dementia who presented to [facility] 11/11/2022 with a sodium of 127 at her assisted living that day. She had been down and tired for 2 to 3 weeks and had been sleeping a lot and not eating or drinking and then she had 2 days of nausea vomiting and diarrhea which had since resolved. She was admitted for her sodium and failure to thrive and weakness given her presentation it seemed to be due to dehydration. She was hydrated and improved though did still seem somewhat tired and down despite improvement in strength and sodium. Had a cortisol of 20.2 and slightly elevated bilirubin but suspect this was due to the acute stress and given no signs or symptoms of hypercortisolism do not perform stim test, count was repeated on outpatient basis and consider further work-up if indicated after acute hospitalization. Patient did end up having a downtrend in hemoglobin though given the fluids suspect this is delusional. Discussed with her and her daughter at bedside about FOBT risks and benefits and ultimately they decided if it was positive they would not want to pursue any further work-up or interventions and this was canceled. Iron panel suggestive of anemia of chronic disease. Vitamin D43.8 And vitamin B12 583, TSH 1.14. No indication of any abnormality that would lead to fatigue and down mood. After discussing with daughter do suspect there may be an aspect of depression and it reports that Zoloft if anything made things worse, this has been discontinued and discussed Wellbutrin with her and her daughter and they were agreeable to help with energy. Discussed that weight will need to be monitored but suspect if her mood improves her appetite will as well. Had discussed initially with Jailene but given her feelings of being tired all the time feel Wellbutrin would be a better fit. Denies history of seizure disorder. On day of discharge overall she had felt better but still feeling down and somewhat tired. No other complaints voiced. Discharge instructions as followed: -It is recommended that you focus on nutrition and hydration, recommend a food supplement 4 times daily like Ensure or similar -Recommend BMP to check your creatinine and sodium in 3 to 5 days -You have been taken off of Zoloft, please discontinue this -You have been started on Wellbutrin to help with energy and mood, you will take this in the morning daily -Your propranolol was changed to 10 mg twice daily Physical Exam Narrative General: Alert though appears tired, oriented, no apparent distress HEENT: Atraumatic, normocephalic Eyes: Anicteric, normal conjunctiva, extraocular movements grossly intact Neck: Supple Respiratory: Clear to auscultation bilaterally, normal respiratory effort Cardiovascular: Regular rate and rhythm GI: Soft, nontender, nondistended Extremities: Nonpitting edema lower extremities Musculoskeletal: Moving all extremities Neuro: No overt focal neurological deficits Skin: No rashes appreciated Psych: Cooperative Medical Records Data Medical Nutrition Assessment Dietitian: Malnutrition Criteria Met Start: 11/12/22 12:44 Freq: Status: Active Protocol: Document 11/12/22 12:44 AG (Rec: 11/12/22 12:44 AG [id number]) Nutrition Malnutrition Evidence of Malnutrition Exists Yes Malnutrition (severe): Acute Illness/Injury Evidenced By Suboptimal Energy Intake ( Severe),Weight Loss (Severe) Clinical Problem Acute Disease or Injury Related Malnutrition Etiology severe, acute on likely chronic malnutrition related to inadequate energy intake Signs/Symptoms as evidenced by estimated PO intake meeting <50% of estimated energy needs > 5 days; unintentional wt loss of 14.6#/11% x <1 month Status Active Problem Recommendation Dietitian Recommendations/Changes will liberalize diet to regular and adjust ONS to ensure plus high protein 120mL 4x/day w/ medpass given advanced age, evidence of malnutrition. Weight / BMI Weight Weight: 55.5 kg Body Mass Index (BMI) 25.5 ABG / Lab / Microbiology Data Result Diagrams: 11/13/22 05:20 11/13/22 05:20 Laboratory: Laboratory Results - last 24 hr 11/13/22 05:20: WBC 13.2 H, RBC 3.32 L, Hgb 10.5 L, Hct 30.7 L, MCV 92.5, MCH 31.6, MCHC 34.2, RDW Std Deviation 42.5, RDW Coeff of Kristal 12.7, Plt Count 370, MPV 8.6, Immature Gran % (Auto) 0.400, Neut % (Auto) 66.3, Lymph % (Auto) 24.7, [place] % (Auto) 6.2, Eos % (Auto) 1.7, Baso % (Auto) 0.7, Absolute Neuts (auto) 8.7 H, Absolute Lymphs (auto) 3.26, Nucleated RBC % 0 11/13/22 05:20: Sodium 132 L, Potassium 3.9, Chloride 106, Carbon Dioxide 23.0, Anion Gap 3 L, BUN 12, Creatinine 0.70, Estim Creat Clear Calc 35.38, Est GFR (MDRD) Af Amer 103, Est GFR (MDRD) Non-Af 85, BUN/Creatinine Ratio 17.2, Glucose 150 H, Calcium 8.3 L, TSH 1.14, Free T4 1.48 H 11/13/22 05:20: Vitamin B12 583 04/27/23 05:20: Iron 48 L, TIBC 214 L, Ferritin 195, Total Bilirubin 1.00, Direct Bilirubin 0.34 H, AST 16, ALT 19, Alkaline Phosphatase 35 L, Total Protein 5.6 L, Albumin 2.8 L, Globulin 2.8 Microbiology: Microbiology 11/13/22 11:05 Nasal Secretion SARS-CoV-2 Antigen (Rapid) - Final Meaningful Use Info Meaningful Use Diagnoses (Choose all that apply): None applicable Discharge Plan Admission Admit Date/Time: 11/11/22 21:22 Primary Reason for Your Visit: Abnormal labs and weakness Attending Provider: Bernice Betancur Primary Care Provider: ALANNAH BENITO Consulting Providers: Ryder Brody Instructions Patient Instructions: ED Fall Prevention Additional Instructions / Restrictions: DISCHARGE INSTRUCTIONS PLEASE READ *Please take this with you to your next doctors appointment* -It is recommended that you focus on nutrition and hydration, recommend a food supplement 4 times daily like Ensure or similar -You have been taken off of Zoloft, please discontinue this -You have been started on Wellbutrin to help with energy and mood, you will take this in the morning daily -Your propranolol was changed to 10 mg twice daily -Please call your primary care provider's office upon discharge to schedule a hospital follow up within 1 week. -For any concerning signs or symptoms please call 911 or proceed to the nearest emergency department Discharge Orders/Prescriptions Prescriptions: Continued metformin 500 MG tablet 500 mg PO DAILY propranolol 20 MG tablet 20 mg PO DAILY levothyroxine 25 MCG tablet 25 mcg PO DAILY atorvastatin 10 mg tablet 10 mg PO QHS donepezil 10 mg tablet 100 mg PO QHS cholecalciferol (vitamin D3) 1,250 mcg (50,000 unit) Tablet 1,250 mcg PO WE raloxifene 60 mg Tablet 60 mg PO DAILY No Action bupropion HCl 150 mg tablet extended release 24 hr 150 mg PO DAILY Ensure Plus High Protein 0.08 gram-1.5 kcal/mL liquid 120 ml PO 4X/DAY Referrals / Follow Up: ALANNAH BENITO [Other] Mariano Dao MD [Non-Staff] - Within 1 Week Disposition Disposition (needs filled in before D/C Order can be placed): [facility] Facility Charges/Coding Visit Charges Inpatient E&M: 15627 Disch Hosp >30min
[2022-11-13 14:35] VITALS: BP 123/48; PULSE 71; RESP 18; TEMP 36.6; O2SAT 100
[2022-11-13] MEDS: 0.9% Saline Lock 10 ML Syringe IV (14:39)
== END 2022-11-13 16:34 | disposition skilled nursing facility (03) | DRG 640 ==
LOC: ED 21:45 → MS3 22:03
PROVIDERS: Admitting Provider Hospitalist; Emergency Provider Emergency Medicine; Visit Provider Internal Medicine
DX: E86.0 Dehydration (principal); E43 Unspecified severe protein-calorie malnutrition; E11.22 Type 2 diabetes mellitus with diabetic chronic kidney disease; F02.80 Dementia in other diseases classified elsewhere, unspecified severity, without behavioral disturbance, psychotic disturbance, mood disturbance, and anxiety; G30.9 Alzheimer's disease, unspecified; E87.1 Hypo-osmolality and hyponatremia; E03.9 Hypothyroidism, unspecified; E87.6 Hypokalemia; I10 Essential (primary) hypertension; E80.7 Disorder of bilirubin metabolism, unspecified; R62.7 Adult failure to thrive; F32.A Depression, unspecified; Z68.26 Body mass index [BMI] 26.0-26.9, adult; Z79.84 Long term (current) use of oral hypoglycemic drugs; Z79.890 Hormone replacement therapy; Z79.899 Other long term (current) drug therapy
CPT/HCPCS: 36415; 70450; 71045; 74176; 80048; 80076; 81001; 82140; 82306; 82533; 82607; 82728; 82962; 83036; 83540; 83550; 83735; 83930; 83935; 84300; 84439; 84443; 84484; 84550; 85025; 87811; 93005; 97162; 97166; 97535; 97802; 99285; J7030; J7040; P9612; A4216

== ENCOUNTER 2022-11-13 16:43 | Inpatient (IN) | payer MEDICARE, MEDICAID, SELFPAY ==
[2022-11-13 16:49] VITALS: BP 146/50; PULSE 69; RESP 16; TEMP 36.2; O2SAT 98
[2022-11-13 16:51] VITALS: BMI 26.0
--- NOTE | 2022-11-13 19:40 | HP.PCM_ITS ---
HPI - General General Date of Admission: 11/13/22 Date of Service: 11/13/22 Chief Complaint: Here for rehabilitation. HPI Narrative 11/11/2022 MAXIME AMARAL, is a 87 Female who presents to [facility] Emergency Department with nausea, vomiting, diarrhea. 11/11/2022 EKG normal sinus rhythm, normal EKG. Increasing lethargy for 2 weeks, not walking, refusing meals. Sodium 127, Pain all over. WBC 13.9, Hemoglobin 13.5, Sodium 127, K 3.4. BUN 21, Creatinine 1.3, Ammonia okay. CT abdomen/pelvis negative. IV fluids, IV potassium given. 11/11/2022 Admit to Hospital. Evaluate low sodium, check AM cortisol, give normal saline IV. IV potassium, check magnesium for hypokalemia. PT/OT for debility. Urinalysis negative. 11/12/2022 Feeling tired, but better. consider Mirtazapine for appetite loss. 11/13/2022 Admit to TCU with debility, here for rehabilitation, strengthening, prior to discharge to [facility]. [facility] Medical History Alzheimer's disease, unspecified Depression, unspecified GERD (gastroesophageal reflux disease) Hypertensive chronic kidney disease with stage 1 through stage 4 chronic kidney disease, or unspecified chronic kidney disease Hypothyroidism, unspecified Type 2 diabetes mellitus with unspecified complications Home Medications metformin 500 mg tablet 500 mg PO DAILY DIABETES 11/10/13 [History Last Taken 11/10/22] propranolol 20 mg tablet 20 mg PO DAILY tremors 11/10/13 [History Last Taken 11/10/22] levothyroxine 25 mcg tablet 25 mcg PO DAILY THYROID 02/08/17 [History Last Taken 11/10/22] atorvastatin 10 mg tablet 10 mg PO QHS CHOLESTEROL 11/11/22 [History Last Taken 11/10/22] cholecalciferol (vitamin D3) 1,250 mcg (50,000 unit) tablet 1,250 mcg PO WE SUPPLEMENT 11/11/22 [History Last Taken Unknown] donepezil 10 mg tablet 100 mg PO QHS MEMORY 11/11/22 [History Last Taken 11/09/22] raloxifene 60 mg tablet 60 mg PO DAILY Check with primary doctor 11/12/22 [History Last Taken 11/10/22] bupropion HCl 150 mg 24 hr tablet, extended release 150 mg PO DAILY mood 11/13/22 [History Last Taken Unknown] food supplemt, lactose-reduced 0.08 gram-1.5 kcal/mL oral liquid (Ensure Plus High Protein) 120 ml PO 4X/DAY ensure 11/13/22 [History Last Taken Unknown] Allergy/AdvReac Type Severity Reaction Status Date / Time Penicillins [PCN] AdvReac Diarrhea Verified 11/11/22 16:49 Family History Other Diabetes Surgical History H/O section History of bowel resection Social History (Updated 11/13/22 @ 19:[address] Sylvester Crooks MD) housing: assisted living facility Smoking Status: Never smoker alcohol intake: never substance use type: does not use ROS Constitutional Constitutional: Denies chills, fever(s) or weight gain ENT HEENT: Denies headache(s), nasal congestion or nasal discharge Cardiovascular Cardiovascular: Denies chest pain or palpitations Respiratory/Chest Respiratory/Chest: Denies cough, excessive phlegm production or shortness of breath with exertion Gastrointestinal Gastrointestinal: Denies abdominal pain, nausea or vomiting Genitourinary Genitourinary: Denies dysuria Musculoskeletal Musculoskeletal: Denies joint pain or joint swelling Integumentary Integumentary: Denies rash or wounds Neurologic Neurologic: Denies focal weakness, numbness or tingling Psychiatric Psychiatric: Denies anxiety, auditory hallucinations, depression, homicidal ideation or suicidal ideation Vital Signs Vital Signs Vital Signs: 11/13/22 16:49 Temperature 97.1 F L Temperature Source Temporal Pulse Rate 69 Respiratory Rate 16 Blood Pressure 146/50 H Blood Pressure Mean 82 Blood Pressure Source Monitor Blood Pressure Position Semi-Fowlers Blood Pressure Location Left Arm Pulse Ox 98 Oxygen Delivery Method Room Air Weight Weight: 56.472 kg Body Mass Index (BMI) 26.0 Physical Exam Const alert General Appearance: cooperative HEENT normocephalic Eyes PERRL and EOMs intact bilaterally Neck supple, no JVD and no carotid bruits Resp normal respiratory effort, normal air movement and clear to auscultation bilaterally Cardio regular rate and regular rhythm GI normal to inspection, nondistended, normoactive bowel sounds, non-tender and non-distended Extremity normal capillary refill General Extremity: Negative for edema Skin no rashes or lesions noted General Skin Exam: no breakdown Psych affect normal Appearance: appropriate Assessment & Plan Assessment/Plan (1) Debility: (2) Hyponatremia: (3) Dehydration: (4) Diabetes mellitus: (5) Hypertension: (6) Hypothyroidism: (7) Hyperlipidemia: (8) Alzheimer disease: (9) Depression: PLAN: Plan 87 year old female with below past medical history hospitalized for weakness secondary to hyponatremia, dehydration, admitted to TCU with debility, here for rehabilitation, strengthening, prior to discharge to [facility]. * Debility - PT/OT. * Cognition - ST. * Pain - Tylenol 1000mg q6h prn pain (1-10). * Bowel - senna/colace 1 tablet bid, Dulcolax 10mg pr daily prn. * Adult immunization - Administer pneumonia vaccine, covid19 vaccine, flu vaccine as appropriate. * DVT prophylaxis - HAS-BLED 1 intermediate risk of bleeding, Maru 4 high risk of blood clots, overall risk intermediate, Rx Xarelto 10mg daily x 2 weeks. * Hyperlipidemia - Atorvastatin 10mg qhs. * Depression - Bupropion XL 150mg daily, stable chronic exterminator helper use, GDR not recommended. * Alzheimer Disease - Donepezil 10mg qhs. * Nutrition - Ensure Plus 120ml 4x/day. * Vitamin D deficiency - D2 1.25mg qweek. * Hypothyroidism - Levothyroxine 25mcg daily. * Diabetes Mellitus II - Metformin 500mg daily. * Hypertension - Propranolol 20mg daily. * Osteoporosis - Evista 60mg daily.
--- NOTE | 2022-11-13 21:06 | NURSING ---
Received phone call from Dr. Crooks, new order received for Loratadine 10mg oral daily give first dose now. Order repeated back.
[2022-11-13] MEDS: Donepezil HCl 10 MG Tablet PO (21:23)
[2022-11-13] MEDS: Ensure Plus High Protein 120 ML LIQUID PO (21:23)
[2022-11-13] MEDS: Senna/Docusate Sodium 1 Tablet PO (21:23)
[2022-11-13] MEDS: Loratadine 10 MG Tablet PO (21:23)
[2022-11-13] MEDS: Atorvastatin Calcium 10 MG Tablet PO (21:23)
[2022-11-14 05:29] VITALS: BP 158/65; PULSE 82
[2022-11-14] MEDS: Senna/Docusate Sodium 1 Tablet PO (05:32)
[2022-11-14] MEDS: Propranolol 10 MG Tablet 20 MG PO (05:32)
[2022-11-14] MEDS: Raloxifene HCl 60 MG Tablet PO (05:33)
[2022-11-14] MEDS: Ensure Plus High Protein 120 ML LIQUID PO ×4 (05:33→21:23)
[2022-11-14] MEDS: Levothyroxine 25 MCG TABLET PO (05:33)
[2022-11-14] MEDS: buPROPion (XL) 150 MG TABLET.XL PO (05:33)
[2022-11-14] MEDS: Loratadine 10 MG Tablet PO (05:35)
[2022-11-14 06:01] LABS: Basophil% 0.9 % (0-1); Eosinophil# 0.32 X10^3/uL; Eosinophils% 2.8 % (0-5); Hematocrit 32.6 % (37-47); Hemoglobin 11.1 g/dL (12.0-15.0); Lymphocyte % 28.6 % (19-41); Mean Corpuscular Hgb 31.5 pg (27.0-32.0); Mean Corpuscular Volume 92.6 fL (81-99); Mean Platelet Vol. 8.8 fl (6.2-12.0); Monocyte# 0.79 X10^3/uL; Monocyte% 6.9 % (0-10); NRBC Flagged by Analyzer 0 % (0-5); Neutrophil # 6.96 X10^3/uL (2.7-7.7); Neutrophil % 60.4 % (47-70); Platelet Count 369 K/mm3 (150-450); RBC Distribution Width CV 13.1 % (11.6-14.6); RBC Distribution Width SD 44.5 fl (35.1-43.9); Red Blood Count 3.52 M/mm3 (4.2-5.4); White Blood Count 11.5 K/mm3 (4.4-11.0)
[2022-11-14 06:24] LABS: Anion Gap 2 (5-15); BUN 8 mg/dL (7-18); BUN/Creat Ratio 11.2 RATIO (10-20); Calcium,Total 8.9 mg/dL (8.5-10.1); Chloride 104 mmol/L (98-107); Creatinine, Serum 0.71 mg/dL (0.55-1.02); EST Glomerular Filtration Rate 83 mL/min (>60); Est Glom Filt Rate - Afr Amer 100 mL/min (>60); Glucose 148 mg/dL (74-106); Potassium 3.8 mmol/L (3.5-5.1); Sodium Level 134 mmol/L (136-145)
[2022-11-14] MEDS: Arthritis Pain Compound 60 CLICK TUBE TOPICAL ×2 (08:47→17:27)
[2022-11-14] MEDS: metFORMIN HCl 500 MG Tablet PO (08:47)
[2022-11-14 08:51] LABS: Bedside Glucose 172 mg/dL (74-106)
[2022-11-14] MEDS: 0.9% Saline Lock 10 ML Syringe IV (08:54)
--- NOTE | 2022-11-14 10:35 | NURSING ---
Savage x6 removed from right forehead. No bleeding noted. Laceration well approximated. Patient tolerated well.
[2022-11-14 10:45] LABS: Mucous, Urine 0 SEEN /hpf (<or=2+)
[2022-11-14 10:46] LABS: Color, Urine Yellow (Yellow); Glucose, Dipstick 100 mg/dl (Normal); Ketone-Dipstick Negative (Negative); Leukocyte Esterase-Dipstick 100 /ul (Negative); Nitrite-Dipstick Negative (Negative); Occult Blood-Urine 10 /ul (Negative); Protein-Dipstick Negative (Negative); Urine Bilirubin Dipstick Negative (Negative); Urine Clarity Sl. Cloudy (Clear); Urine Urobilinogen Normal (Normal)
[2022-11-14] MEDS: Tuberculin,Purif.prot.deriv. 50 TU/ML Vial 0.1 ML ID (10:49)
[2022-11-14 10:52] LABS: Bacteria 1+ /hpf (None Seen); Red Blood Cells-Urine 0-5 SEEN /hpf (0-5); Squamous Epithelial Cells - UA 0-5 SEEN /hpf (5-10); White Blood Cells 10-25 SEEN /hpf (0-5)
[2022-11-14 10:53] LABS: Transitional Epithelial - Ur 0-5 SEEN /hpf (0-5)
--- NOTE | 2022-11-14 11:02 | CASEMGMT ---
Social Work Met with patient to complete initial assessment. Introduced self and role. Verified/updated contacts. Discussed code status and MOLST form. Pt confirmed DNR-CC and MOLST placed in Dr folder. Educated to [facility] insurance and continued stay is not guaranteed with each review. Pt's goal is to return to [facility] to continue to follow for DC planning. Della Escobedo, RAILROAD SIGNAL TECHNICIAN DENTAL TECHNOLOGY ADVISOR
[2022-11-14] MEDS: Acetaminophen 500 MG Tablet 1000 MG PO (11:56)
--- NOTE | 2022-11-14 12:15 | NURSING ---
RN placed call to [facility], inquiring about vaccinations. Nurse unavailable at this time. Return number left with boiler engineer. Waiting return call.
--- NOTE | 2022-11-14 15:31 | PCM.PN.DRR ---
TCU RX Drug Regimen Review Subjective: TCU Admission. 87 YOF presented to the ER with nausea/vomiting/diarrhea. Hospitalized for weakness secondary to hyponatremia, dehydration. Admitted to TCU with debility for strengthening and rehabilitation. Objective: Allergies Penicillins [PCN] Adverse Reaction (Verified 11/11/22 16:49) Diarrhea Current Medications Generic Name Dose Route Start Last Admin Trade Name Freq PRN Reason Stop Dose Admin Acetaminophen 1,000 mg 11/13/22 19:54 11/14/22 11:56 Acetaminophen 500 Mg Tablet PO 1,000 mg Q6H PRN PRN Administration Pain Score 1-10 Atorvastatin Calcium 10 mg 11/13/22 22:00 11/13/22 21:23 Atorvastatin Calcium 10 Mg Tablet PO 10 mg QHS ZOHRA Administration Bisacodyl 10 mg 11/13/22 16:55 Bisacodyl 10 Mg Suppository RC DAILY PRN Constipation Bupropion HCl 150 mg 11/14/22 06:00 11/14/22 05:33 Bupropion (Xl) 150 Mg Tablet.Xl PO 150 mg DAILY ZOHRA Administration Compound Med 2 click 11/14/22 08:00 11/14/22 08:47 Arthritis Pain Compound 60 Click Tube TOPICAL 2 click BID ZOHRA Administration Protocol Donepezil HCl 10 mg 11/13/22 22:00 11/13/22 21:23 Donepezil Hcl 10 Mg Tablet PO 10 mg QHS ZOHRA Administration Ergocalciferol 1.25 mg 11/19/22 06:00 Ergocalciferol 1.25 Mg (50, 000 Unit) Capsule PO [facility] Hydrocortisone 1 applic 11/14/22 08:00 Hydrocortisone 2.5% Crm TOPICAL TID PRN PRN Hemorrhoids Protocol Levothyroxine Sodium 25 mcg 11/14/22 06:00 11/14/22 05:33 Levothyroxine 25 Mcg Tablet PO 25 mcg DAILY ZOHRA Administration Loratadine 10 mg 11/13/22 21:00 11/14/22 05:35 Loratadine 10 Mg Tablet PO 10 mg DAILY ZOHRA Administration Melatonin 10 mg 11/14/22 22:00 Melatonin 10 Mg Tablet PO QHS ZOHRA Metformin HCl 500 mg 11/14/22 08:00 11/14/22 08:47 Metformin Hcl 500 Mg Tablet PO 500 mg DAILYCM ZOHRA Administration Nutritional Formula (Lactose Free) 120 ml 11/13/22 17:00 11/14/22 11:59 Ensure Plus High Protein 120 Ml Liquid PO 120 ml 4X/DAY ZOHRA Administration Propranolol HCl 20 mg 11/14/22 06:00 11/14/22 05:32 Propranolol 10 Mg Tablet PO 20 mg DAILY ZOHRA Administration Raloxifene HCl 60 mg 11/14/22 06:00 11/14/22 05:33 Raloxifene Hcl 60 Mg Tablet PO 60 mg DAILY ZOHRA Administration Rivaroxaban 10 mg 11/14/22 17:00 Rivaroxaban 10 Mg Tablet PO 11/28/22 17:01 DINNER ZOHRA Senna/Docusate Sodium 1 tablet 11/13/22 20:00 11/14/22 05:32 Senna/Docusate Sodium 1 Tablet PO 1 tablet BID ZOHRA Administration Sodium Chloride 10 - 40 ml 11/13/22 17:16 11/14/22 08:54 0.9% Saline Lock 10 Ml Syringe IV 10 ml UD PRN Administration SALINE FLUSH Tuberculin PPD 0.1 ml 11/21/22 10:00 Tuberculin,Purif.Prot.Deriv. 50 Tu/Ml Vial ID 11/21/22 10:01 X1 ONE Problem List (Last Reviewed 11/13/22 @ 19:[address] Sylvester Crooks MD) Depression (Acute) Alzheimer disease (Acute) Hyperlipidemia (Acute) Hypothyroidism (Acute) Hypertension (Chronic) Diabetes mellitus (Acute) Dehydration (Acute) Hyponatremia (Acute) Debility (Acute) Vital Signs Temp Pulse Resp BP Pulse Ox O2 Del Method 97.1 F L 82 16 158/65 H 98 Room Air 11/13/22 16:49 11/14/22 05:29 11/13/22 16:49 11/14/22 05:29 11/13/22 16:49 11/13/22 23:00 Oxygen Delivery Method Room Air Weight: 56.472 kg Body Mass Index (BMI) 26.0 Sodium 134 mmol/L (136-145) L 11/14/22 05:15 Potassium 3.8 mmol/L (3.5-5.1) 11/14/22 05:15 Chloride 104 mmol/L (98-107) 11/14/22 05:15 Carbon Dioxide 28.0 mmol/L (21.0-32.0) 11/14/22 05:15 Anion Gap 2 (5-15) L 11/14/22 05:15 BUN 8 mg/dL (7-18) 11/14/22 05:15 Creatinine 0.71 mg/dL (0.55-1.02) 11/14/22 05:15 Est GFR (MDRD) Af Amer 100 mL/min (>60) 11/14/22 05:15 Est GFR (MDRD) Non-Af 83 mL/min (>60) 11/14/22 05:15 BUN/Creatinine Ratio 11.2 RATIO (10-20) 11/14/22 05:15 Glucose 148 mg/dL (74-106) H 11/14/22 05:15 Assessment/Plan: 1. Pain: acetaminophen 1000mg PO Q6H PRN pain 1-10 and Arthritis Pain compound 2 clicks topically to the left knee BID. Resident has used 1 dose for generalized pain of 4. Please continue to monitor for increased pain and PRN usage. 2. Bowel: senna/docusate 1T PO BID and bisacodyl 10mg RC daily PRN constipation. Please continue to monitor for constipation and PRN usage. No PRN doses have been given and last documented bowel movement from 11/12. 3. DVT prophylaxis: rivaroxaban 10mg PO dinner thru 11/28/22. Please continue to monitor for S/S of bleeding/DVT and hemoglobin (last 11.1g/dL). 4. Hyperlipidemia: atorvastatin 10mg PO QHS. Please considering order a lipid panel if clinically appropriate as this resident has not had one since 12/2016. Thanks. Please continue to monitor for muscle pain and LFTs (last WNL 11/13/22). 5. Alzheimer disease: donepezil 10mg PO QHS. Please continue to monitor for S/S of Alzheimer disease and GI side effects (resident was admitted due to nausea/vomiting/diarrhea which is common with this medication). 6. Hypothyroidism: levothyroxine 25mcg PO daily. Please continue to monitor for S/S of hypo/hyperthyroidism and TSH (last 11/13/22). 7. Diabetes mellitus II: metformin 500mg PO DAILYCM. Please continue to monitor hemoglobin A1c (last 7% 11/12/22), glucose (last 172mg/dL), hypoglycemia, diarrhea/nausea and GFR (last >60mL/min). 8. Hypertension: propranolol 20mg PO daily. Please continue to monitor HR (last 82) and BP (last 158/65). 9. Osteoporosis: raloxifene 60mg PO daily. Please continue to monitor for VTE (black box warning), hot flashes and LFTs. 10. Vitamin D deficiency: ergocalciferol 1.25mg PO Wednesdays. Please continue to monitor vitamin D levels (last 11/12/22). 11. Hemorrhoids: hydrocortisone 2.5% cream 1 application TID PRN hemorrhoids. Resident has not used any PRN doses. Please continue to monitor for hemorrhoids and PRN usage. Assessment/Plan for indications treated with psychotropic medications: 1. Depression: bupropion XL 150mg PO daily. Please see physician note regarding GDR. Please continue to monitor for suicidal ideation (black box warning) and agitation. Medical chart and medication regimen reviewed. The following medication irregularities or issues were identified: *1. Atorvastatin 10mg PO QHS. Please considering order a lipid panel if clinically appropriate as this resident has not had one since 12/2016. Thanks. *2. Loratadine 10mg PO daily and melatonin 10mg PO QHS do not have documented indications. Please consider adding the indications if medications as needed. Thanks. Date of Note:: 11/14/22
[2022-11-14 16:00] VITALS: BP 147/54; PULSE 73; RESP 16; TEMP 37; O2SAT 96
[2022-11-14] MEDS: Rivaroxaban 10 MG Tablet PO (17:26)
[2022-11-14] MEDS: Atorvastatin Calcium 10 MG Tablet PO (21:23)
[2022-11-14] MEDS: Donepezil HCl 10 MG Tablet PO (21:23)
[2022-11-14] MEDS: MELATONIN 10 MG TABLET PO (21:23)
[2022-11-15 06:36] LABS: Bedside Glucose 144 mg/dL (74-106)
[2022-11-15] MEDS: Ensure Plus High Protein 120 ML LIQUID PO ×4 (06:56→20:33)
[2022-11-15] MEDS: Arthritis Pain Compound 60 CLICK TUBE TOPICAL ×2 (06:56→17:37)
[2022-11-15] MEDS: Loratadine 10 MG Tablet PO (06:56)
[2022-11-15] MEDS: buPROPion (XL) 150 MG TABLET.XL PO (06:57)
[2022-11-15] MEDS: Raloxifene HCl 60 MG Tablet PO (06:57)
[2022-11-15] MEDS: Levothyroxine 25 MCG TABLET PO (06:57)
[2022-11-15] MEDS: Propranolol 10 MG Tablet 20 MG PO (06:57)
[2022-11-15] MEDS: Senna/Docusate Sodium 1 Tablet PO (06:57)
[2022-11-15] MEDS: metFORMIN HCl 500 MG Tablet PO (08:21)
[2022-11-15] MEDS: Acetaminophen 500 MG Tablet 1000 MG PO ×2 (11:11→20:34)
--- NOTE | 2022-11-15 14:19 | NURSING ---
Pt's daughter brought in Pneumonia Vaccine record. Pt has received Prevnar 13 and an unspecified pneumococcal vaccine. Dr. Crooks updated per Dr. Crooks d/c PCV 20. Order read back.
[2022-11-15 16:00] VITALS: BP 151/62; PULSE 71; RESP 16; TEMP 36.6; O2SAT 96
[2022-11-15] MEDS: Rivaroxaban 10 MG Tablet PO (17:37)
--- NOTE | 2022-11-15 20:00 | NURSING ---
Daughter from [place] at bedside. Assists this nurse w/ transfer to [facility]. After toileting and pericare completed, changed into gown. Pt moans and winces. In no acute distress. Transferred to bed and pt was unable to get comfortable. Asked this nurse and her daughter to frequently reposition her. Pt then c/o difficulty taking a deep breath. SpO2 95-95% on room air. Skin pink.pale, warm, and dry. Lips are pink. Respirations even and unlabored. No cough or wheeze noted. HR 80 and rhythm is slightly irregular. Denies any chest pain when asked. O2 applied at 2 lpm via nc and pt did not tolerate well. Liter flow decreased to 1 lpm and appears more comfortable. Daughter remains at bedside. Bed alarm in use. Call light w/ in reach. Will continue to monitor.
[2022-11-15] MEDS: Atorvastatin Calcium 10 MG Tablet PO (20:33)
[2022-11-15] MEDS: MELATONIN 10 MG TABLET PO (20:34)
[2022-11-15] MEDS: Donepezil HCl 10 MG Tablet PO (20:34)
[2022-11-16] MEDS: Senna/Docusate Sodium 1 Tablet PO (05:46)
[2022-11-16] MEDS: Propranolol 10 MG Tablet 20 MG PO (05:46)
[2022-11-16] MEDS: buPROPion (XL) 150 MG TABLET.XL PO (05:46)
[2022-11-16] MEDS: Levothyroxine 25 MCG TABLET PO (05:46)
[2022-11-16] MEDS: Loratadine 10 MG Tablet PO (05:46)
[2022-11-16] MEDS: Raloxifene HCl 60 MG Tablet PO (05:47)
[2022-11-16] MEDS: 0.9% Saline Lock 10 ML Syringe IV ×2 (05:55→18:46)
--- NOTE | 2022-11-16 06:24 | NURSING ---
Ensure held at this time. Warm prune juice given at this time for constipation. Arthritis compound cream to be applied after bathing.
[2022-11-16 06:51] LABS: Bedside Glucose 154 mg/dL (74-106)
[2022-11-16] MEDS: metFORMIN HCl 500 MG Tablet PO (08:01)
[2022-11-16] MEDS: Arthritis Pain Compound 60 CLICK TUBE TOPICAL ×2 (08:01→17:46)
[2022-11-16] MEDS: Bisacodyl 10 MG Suppository RC (09:53)
[2022-11-16] MEDS: Ensure Plus High Protein 120 ML LIQUID PO ×3 (12:04→20:14)
--- NOTE | 2022-11-16 13:00 | NURSING ---
Addendum entered by Anisa Min 11/16/22 16:47: Results of KUB came back and Dr. Crooks updated per Dr. Crooks discontinue Lactulose 20gm x1. Addendum entered by Anisa Min 11/16/22 16:45: Pt had moderate amount of brown liquid results from enema. Pt c/o of feeling like she had some stool Stuck. Dr. Crooks updated N.O. for KUB and Lactulose. Order read back Original Note: Pt c/o of constipation. Dr. Crooks updated and N.O. for SSE.
[2022-11-16] MEDS: Nitrofurantoin Macrocrystals 100 MG Capsule PO ×2 (13:51→17:46)
[2022-11-16 15:45] VITALS: BP 136/64; PULSE 88; RESP 16; TEMP 36.6; O2SAT 97
--- NOTE | 2022-11-16 16:00 | RAD_ITS ---
STUDY: X-RAY - ABDOMEN/PELVIS REASON FOR EXAM: Female, 87 years old. Constipation TECHNIQUE: Single AP view of the abdomen / pelvis. COMPARISON: None. FINDINGS: Normal visualized lung bases. There is an unremarkable bowel gas pattern. The visualized liver, spleen and kidneys are grossly normal in size and morphology. Normal soft tissue structures. Moderate levoscoliosis of the thoracolumbar spine with degenerative disc disease. RAD/Abdomen Single View IMPRESSION: Normal x-ray examination of the abdomen and pelvis. Electronically Signed: Wil Lilly MD at 16:20 EDT ,
[2022-11-16] MEDS: Rivaroxaban 10 MG Tablet PO (17:46)
[2022-11-16] MEDS: MELATONIN 10 MG TABLET PO (20:14)
[2022-11-16] MEDS: Donepezil HCl 10 MG Tablet PO (20:14)
[2022-11-16] MEDS: Atorvastatin Calcium 10 MG Tablet PO (20:15)
[2022-11-17] MEDS: Acetaminophen 500 MG Tablet 1000 MG PO (05:54)
[2022-11-17] MEDS: Propranolol 10 MG Tablet 20 MG PO (05:55)
[2022-11-17] MEDS: Senna/Docusate Sodium 1 Tablet PO (05:55)
[2022-11-17] MEDS: Ensure Plus High Protein 120 ML LIQUID PO ×3 (05:55→21:39)
[2022-11-17] MEDS: Loratadine 10 MG Tablet PO (05:55)
[2022-11-17] MEDS: Nitrofurantoin Macrocrystals 100 MG Capsule PO ×2 (05:56→17:16)
[2022-11-17] MEDS: Raloxifene HCl 60 MG Tablet PO (05:56)
[2022-11-17] MEDS: Levothyroxine 25 MCG TABLET PO (05:56)
[2022-11-17] MEDS: buPROPion (XL) 150 MG TABLET.XL PO (05:57)
[2022-11-17 06:00] VITALS: BP 123/54; PULSE 91
[2022-11-17] MEDS: Glycerin/Hypromellose/PEG400 15 ml Bottle 2 DRP EACH EYE (06:02)
[2022-11-17] MEDS: 0.9% Saline Lock 10 ML Syringe IV ×2 (06:05→17:27)
--- NOTE | 2022-11-17 06:09 | NURSING ---
Arthritis compound cream to be applied after bathing.
[2022-11-17 06:30] LABS: Bedside Glucose 144 mg/dL (74-106)
[2022-11-17] MEDS: metFORMIN HCl 500 MG Tablet PO (08:21)
[2022-11-17] MEDS: Arthritis Pain Compound 60 CLICK TUBE TOPICAL ×2 (08:22→17:18)
[2022-11-17 09:46] VITALS: PULSE 79; RESP 16; O2SAT 97
--- NOTE | 2022-11-17 12:52 | NURSING ---
Lumber Buyer Note; Activity Asset: nupur Pittman is independent in her choice of daily activities. She watches tv, works on word puzzles, visits w/family and friends and welcomes visits from environmental protection inspector and therapy dog. Toya will come to small group activities when feeling better. Staff will continue to visit weekly and offer in and out of room activities and respect her right to say no.
--- NOTE | 2022-11-17 14:24 | CASEMGMT ---
Social Work Received call from Carlyn at [facility] providing updates that pt must be minimal assistance to return to [place]. [facility] to [facility], out of [place], due to increased level of assistance. Carlyn will need to complete an onsite assessment if pt will be returning to AL to ensure appropriateness, unless IDT recommends SNF at [place]. Pt is able to admit to their SNF, if pt/family chooses. BARBY clarified level of assistance needed. Carlyn explained there are no nurses at night and tax assessor are not STNAs and cannot handle incontinence. tax assessor can assist with ADLs if pt is helping for the majority of the task, CGA for ambulation and transfers, if needed. SW to update IDT and family at POC. Will continue to follow. RAUL BatistaW
[2022-11-17 14:58] VITALS: BP 130/46; PULSE 72; RESP 14; TEMP 36.4; O2SAT 98
[2022-11-17] MEDS: Rivaroxaban 10 MG Tablet PO (17:16)
[2022-11-17] MEDS: Donepezil HCl 10 MG Tablet PO (21:39)
[2022-11-17] MEDS: MELATONIN 10 MG TABLET PO (21:39)
[2022-11-17] MEDS: Atorvastatin Calcium 10 MG Tablet PO (21:39)
[2022-11-18] MEDS: Acetaminophen 500 MG Tablet 1000 MG PO (05:34)
[2022-11-18] MEDS: Arthritis Pain Compound 60 CLICK TUBE TOPICAL ×2 (05:35→17:41)
[2022-11-18] MEDS: Ensure Plus High Protein 120 ML LIQUID PO ×4 (05:36→21:24)
[2022-11-18] MEDS: Raloxifene HCl 60 MG Tablet PO (05:36)
[2022-11-18] MEDS: Senna/Docusate Sodium 1 Tablet PO ×2 (05:36→17:42)
[2022-11-18] MEDS: Propranolol 10 MG Tablet 20 MG PO (05:36)
[2022-11-18] MEDS: Nitrofurantoin Macrocrystals 100 MG Capsule PO ×2 (05:36→17:42)
[2022-11-18] MEDS: Loratadine 10 MG Tablet PO (05:36)
[2022-11-18] MEDS: Levothyroxine 25 MCG TABLET PO (05:36)
[2022-11-18] MEDS: buPROPion (XL) 150 MG TABLET.XL PO (05:37)
[2022-11-18 05:47] VITALS: BP 133/49; PULSE 89
[2022-11-18 06:16] LABS: Bedside Glucose 143 mg/dL (74-106)
[2022-11-18] MEDS: metFORMIN HCl 500 MG Tablet PO (09:28)
[2022-11-18 12:52] VITALS: BMI 25.8
[2022-11-18 16:00] VITALS: BP 163/73; PULSE 76; RESP 16; TEMP 36.2; O2SAT 98
[2022-11-18] MEDS: Rivaroxaban 10 MG Tablet PO (17:41)
[2022-11-18] MEDS: Donepezil HCl 10 MG Tablet PO (21:19)
[2022-11-18] MEDS: Atorvastatin Calcium 10 MG Tablet PO (21:19)
[2022-11-18] MEDS: MELATONIN 10 MG TABLET PO (21:19)
[2022-11-18 22:00] VITALS: RESP 16
[2022-11-19] MEDS: Propranolol 10 MG Tablet 20 MG PO (06:06)
[2022-11-19] MEDS: buPROPion (XL) 150 MG TABLET.XL PO (06:06)
[2022-11-19] MEDS: Loratadine 10 MG Tablet PO (06:06)
[2022-11-19] MEDS: Nitrofurantoin Macrocrystals 100 MG Capsule PO ×2 (06:07→17:38)
[2022-11-19] MEDS: Raloxifene HCl 60 MG Tablet PO (06:07)
[2022-11-19] MEDS: Levothyroxine 25 MCG TABLET PO (06:08)
[2022-11-19] MEDS: Senna/Docusate Sodium 1 Tablet PO ×2 (06:08→17:38)
[2022-11-19] MEDS: Ergocalciferol 1.25 MG (50, 000 UNIT) Capsule PO (06:09)
[2022-11-19] MEDS: Arthritis Pain Compound 60 CLICK TUBE TOPICAL ×2 (06:09→17:38)
[2022-11-19] MEDS: Ensure Plus High Protein 120 ML LIQUID PO ×4 (06:14→19:53)
[2022-11-19] MEDS: Acetaminophen 500 MG Tablet 1000 MG PO (06:17)
[2022-11-19 06:50] LABS: Bedside Glucose 147 mg/dL (74-106)
[2022-11-19] MEDS: metFORMIN HCl 500 MG Tablet PO (08:52)
[2022-11-19 09:43] VITALS: O2SAT 97
--- NOTE | 2022-11-19 11:05 | CASEMGMT ---
Social Work IDT met with patient, son then dtr via conference call for care plan meeting. Discussed patient's progress in PT/OT/ST/SN. Educated to [facility] insurance with NRD 11/26 and EDC 11/29. Educated to level of care needed to return to [facility] and possible need for SNF placement. Family expressed understanding and realistic to that need. Discussed options for SNF placement with [facility] benefit. Explored AL vs SNF options and memory care units. Family requesting referrals to [facility], [facility] and [facility] all for AL and SNF placement. SW also discussed palliative services. Family aware of services and interested in referral. SW sent referral to [facility] Palliative. Referrals sent via CarePort to SNFs. SW to continue to follow. RAUL BatistaW
--- NOTE | 2022-11-19 11:05 | CASEMGMT ---
Social Work IDT met with patient, son then dtr via conference call for care plan meeting. Discussed patient's progress in PT/OT/ST/SN. Educated to [facility] insurance with NRD 11/26 and EDC 11/29. Educated to level of care needed to return to [facility] and possible need for SNF placement. Family expressed understanding and realistic to that need. Discussed options for SNF placement with [facility] benefit. Explored AL vs SNF options and memory care units. Family requesting referrals to [facility], [facility] and [facility] all for AL and SNF placement. SW also discussed palliative services. Family aware of services and interested in referral. SW sent referral to [facility] Palliative. Referraps ka
[2022-11-19 13:44] VITALS: BP 143/73; PULSE 83; RESP 16; TEMP 36.7; O2SAT 99
[2022-11-19] MEDS: Rivaroxaban 10 MG Tablet PO (17:38)
[2022-11-19] MEDS: Menthol/Lanolin/Calamine/Znox 113 GM Tube 1 APPLIC TOPICAL (17:39)
[2022-11-19] MEDS: Donepezil HCl 10 MG Tablet PO (19:53)
[2022-11-19] MEDS: Atorvastatin Calcium 10 MG Tablet PO (19:53)
[2022-11-19] MEDS: MELATONIN 10 MG TABLET PO (19:54)
[2022-11-19] MEDS: Mirtazapine 15 MG Tablet 7.5 MG PO (19:57)
[2022-11-20] MEDS: Menthol/Lanolin/Calamine/Znox 113 GM Tube 1 APPLIC TOPICAL ×2 (06:01→17:21)
[2022-11-20] MEDS: buPROPion (XL) 150 MG TABLET.XL PO (06:01)
[2022-11-20] MEDS: Arthritis Pain Compound 60 CLICK TUBE TOPICAL ×2 (06:01→17:20)
[2022-11-20] MEDS: Levothyroxine 25 MCG TABLET PO (06:01)
[2022-11-20] MEDS: Propranolol 10 MG Tablet 20 MG PO (06:01)
[2022-11-20] MEDS: Senna/Docusate Sodium 1 Tablet PO ×2 (06:01→17:21)
[2022-11-20] MEDS: Nitrofurantoin Macrocrystals 100 MG Capsule PO ×2 (06:01→17:20)
[2022-11-20] MEDS: Loratadine 10 MG Tablet PO (06:02)
[2022-11-20] MEDS: Ensure Plus High Protein 120 ML LIQUID PO ×4 (06:02→20:06)
[2022-11-20] MEDS: Raloxifene HCl 60 MG Tablet PO (06:02)
[2022-11-20 06:41] LABS: Bedside Glucose 141 mg/dL (74-106)
[2022-11-20] MEDS: metFORMIN HCl 500 MG Tablet PO (08:35)
--- NOTE | 2022-11-20 10:44 | CASEMGMT ---
Social Work SW left message with son updating him that [facility] can accept, but will start pt in SNF to assess level of care for AL - there are AL beds available; [facility] will complete and onsite 11/21 at 10:30 am; [facility] can accept to SNF. Will continue to follow. Della Escobedo, OVEN BUILDER SUSTAINMENT LOGISTICS ANALYST
[2022-11-20] MEDS: Acetaminophen 500 MG Tablet 1000 MG PO (12:06)
--- NOTE | 2022-11-20 14:14 | CASEMGMT ---
Social Work BIMS (06/03) and PHQ-9 (03/15) completed for MDS assessment. SW explored positive responses with pt. Pt reports to medical decline, lethargy as the reason for feeling tired and poor appetite. pt acknowledges moving slower since medical change. Pt remains motivated on improving with ongoing therapy. SW to continue to monitor. Della Escobedo, HEAD WELL PULLER PERSONAL SECURITY SPECIALIST
[2022-11-20 15:28] VITALS: BP 92/47; PULSE 82; RESP 16; TEMP 36.9; O2SAT 99
[2022-11-20 15:45] VITALS: BP 113/44; PULSE 82
[2022-11-20] MEDS: 0.9% Saline Lock 10 ML Syringe IV (15:46)
--- NOTE | 2022-11-20 16:35 | CASEMGMT ---
Social Work [facility] is meeting with pt and son on 11/24 at 11:15 am. Della Escobedo MSW INSPECTOR METAL CAN
--- NOTE | 2022-11-20 17:02 | NURSING ---
Addendum entered by Pao Clarke 11/20/22 18:08: alarm placed on chair and bed. Original Note: no order for alarm, spoke with ORNAMENT SETTER staff and they were not aware of any unassisted transfers. then spoke with BO Cheng and he did state pt was observed ambulating self to BR yesterday. note left for Dr Crooks.
[2022-11-20] MEDS: Rivaroxaban 10 MG Tablet PO (17:20)
[2022-11-20 20:00] VITALS: PULSE 86; RESP 16; O2SAT 95
[2022-11-20] MEDS: Atorvastatin Calcium 10 MG Tablet PO (20:06)
[2022-11-20] MEDS: Donepezil HCl 10 MG Tablet PO (20:06)
[2022-11-20] MEDS: Mirtazapine 15 MG Tablet 7.5 MG PO (20:07)
[2022-11-20] MEDS: MELATONIN 10 MG TABLET PO (20:07)
[2022-11-21] MEDS: Propranolol 10 MG Tablet 20 MG PO (05:05)
[2022-11-21] MEDS: Arthritis Pain Compound 60 CLICK TUBE TOPICAL ×2 (05:05→17:06)
[2022-11-21] MEDS: Menthol/Lanolin/Calamine/Znox 113 GM Tube 1 APPLIC TOPICAL ×2 (05:05→17:06)
[2022-11-21] MEDS: Ensure Plus High Protein 120 ML LIQUID PO ×4 (05:06→21:18)
[2022-11-21] MEDS: Raloxifene HCl 60 MG Tablet PO (05:06)
[2022-11-21] MEDS: Loratadine 10 MG Tablet PO (05:06)
[2022-11-21] MEDS: buPROPion (XL) 150 MG TABLET.XL PO (05:06)
[2022-11-21] MEDS: Levothyroxine 25 MCG TABLET PO (05:06)
[2022-11-21] MEDS: Nitrofurantoin Macrocrystals 100 MG Capsule PO ×2 (05:06→17:06)
[2022-11-21] MEDS: Senna/Docusate Sodium 1 Tablet PO ×2 (05:06→17:06)
[2022-11-21 05:48] LABS: Absolute Lymphocyte Count 2.62 X10^3/uL (0.83-4.51); Absolute Neutrophil Count 7.6 X10^3/uL (2.0-7.7); Basophil# 0.09 X10^3/uL; Basophil% 0.8 % (0-1); Eosinophil# 0.31 X10^3/uL; Eosinophils% 2.7 % (0-5); Hemoglobin 11.7 g/dL (12.0-15.0); Lymphocyte # 2.62 X10^3/ul (0.83-4.51); Lymphocyte % 22.7 % (19-41); Mean Corp Hgb Conc 32.5 g/dL (32-36); Mean Corpuscular Hgb 30.8 pg (27.0-32.0); Mean Corpuscular Volume 94.7 fL (81-99); Mean Platelet Vol. 8.8 fl (6.2-12.0); Monocyte# 0.91 X10^3/uL; Monocyte% 7.9 % (0-10); NRBC Flagged by Analyzer 0 % (0-5); Neutrophil # 7.58 X10^3/uL (2.7-7.7); Neutrophil % 65.6 % (47-70); Platelet Count 411 K/mm3 (150-450); RBC Distribution Width CV 12.9 % (11.6-14.6); RBC Distribution Width SD 44.5 fl (35.1-43.9); White Blood Count 11.5 K/mm3 (4.4-11.0)
[2022-11-21 06:16] LABS: Anion Gap 9 (5-15); BUN 17 mg/dL (7-18); BUN/Creat Ratio 16.3 RATIO (10-20); Calcium,Total 9.7 mg/dL (8.5-10.1); Chloride 99 mmol/L (98-107); Creatinine, Serum 1.04 mg/dL (0.55-1.02); EST Glomerular Filtration Rate 53 mL/min (>60); Est Glom Filt Rate - Afr Amer 65 mL/min (>60); Estimated Creatinine Clearance 34.39 ml/min; Glucose 161 mg/dL (74-106); Potassium 4.1 mmol/L (3.5-5.1); Sodium Level 139 mmol/L (136-145)
[2022-11-21 06:35] LABS: Bedside Glucose 189 mg/dL (74-106)
[2022-11-21] MEDS: metFORMIN HCl 500 MG Tablet PO (07:46)
[2022-11-21] MEDS: Tuberculin,Purif.prot.deriv. 50 TU/ML Vial 0.1 ML ID (11:39)
[2022-11-21] MEDS: Acetaminophen 500 MG Tablet 1000 MG PO (11:39)
[2022-11-21] MEDS: 0.9% Saline Lock 10 ML Syringe IV (11:40)
--- NOTE | 2022-11-21 12:25 | NS ---
Res requesting fruit smoothie w/ all meals and fortified pudding w/ lunch and dinner. Likes these ONS and accepting of them so will continue.
--- NOTE | 2022-11-21 13:14 | CASEMGMT ---
Social Work [facility] accepted. SW contacted son to update. Reviewed choices and answered questions. Son requested referrals to [facility] and [facility] SNF. Referrals made via CarePort. Will continue to follow. Della Escobedo MSW LABORATORY TESTER
[2022-11-21 14:54] VITALS: BP 114/41; PULSE 80; RESP 14; TEMP 36.7; O2SAT 97
[2022-11-21] MEDS: Rivaroxaban 10 MG Tablet PO (17:04)
[2022-11-21] MEDS: Carbidopa/Levodopa 25/100 Tablet PO (17:10)
[2022-11-21] MEDS: Atorvastatin Calcium 10 MG Tablet PO (21:20)
[2022-11-21] MEDS: Donepezil HCl 10 MG Tablet PO (21:20)
[2022-11-21] MEDS: MELATONIN 10 MG TABLET PO (21:20)
[2022-11-21] MEDS: Mirtazapine 15 MG Tablet 7.5 MG PO (21:20)
[2022-11-22] MEDS: Acetaminophen 500 MG Tablet 1000 MG PO ×2 (00:38→12:23)
[2022-11-22] MEDS: Raloxifene HCl 60 MG Tablet PO (05:13)
[2022-11-22] MEDS: Loratadine 10 MG Tablet PO (05:13)
[2022-11-22] MEDS: Propranolol 10 MG Tablet 20 MG PO (05:14)
[2022-11-22] MEDS: Levothyroxine 25 MCG TABLET PO (05:14)
[2022-11-22] MEDS: Nitrofurantoin Macrocrystals 100 MG Capsule PO ×2 (05:15→17:58)
[2022-11-22] MEDS: buPROPion (XL) 150 MG TABLET.XL PO (05:15)
[2022-11-22] MEDS: Senna/Docusate Sodium 1 Tablet PO ×2 (05:15→17:58)
[2022-11-22] MEDS: Carbidopa/Levodopa 25/100 Tablet PO ×3 (05:18→17:57)
[2022-11-22] MEDS: Ensure Plus High Protein 120 ML LIQUID PO ×3 (05:18→20:21)
[2022-11-22] MEDS: Arthritis Pain Compound 60 CLICK TUBE TOPICAL ×2 (05:19→17:58)
[2022-11-22] MEDS: Menthol/Lanolin/Calamine/Znox 113 GM Tube 1 APPLIC TOPICAL ×2 (05:21→17:58)
[2022-11-22 05:33] VITALS: BP 126/55; PULSE 65
[2022-11-22 06:50] LABS: Bedside Glucose 176 mg/dL (74-106)
[2022-11-22] MEDS: metFORMIN HCl 500 MG Tablet PO (08:26)
--- NOTE | 2022-11-22 10:15 | NURSING ---
RN notified by CLINIC OFFICE MANAGER patient having episode of emesis. RN provided gingerale.
--- NOTE | 2022-11-22 12:12 | NURSING ---
Patient refused lunch. States I don't feel well. Patient in good spirits, pleasant, and cooperative. Will continue to monitor.
[2022-11-22 12:21] VITALS: BP 138/79; PULSE 81; RESP 16; TEMP 36.4; O2SAT 97
[2022-11-22 13:01] LABS: Bedside Glucose 155 mg/dL (74-106)
[2022-11-22] MEDS: Rivaroxaban 10 MG Tablet PO (17:58)
[2022-11-22] MEDS: MELATONIN 10 MG TABLET PO (20:22)
[2022-11-22] MEDS: Donepezil HCl 10 MG Tablet PO (20:22)
[2022-11-22] MEDS: Mirtazapine 15 MG Tablet 7.5 MG PO (20:23)
[2022-11-22] MEDS: Atorvastatin Calcium 10 MG Tablet PO (20:23)
[2022-11-22 20:34] VITALS: PULSE 93; RESP 16; O2SAT 97
[2022-11-23] MEDS: Menthol/Lanolin/Calamine/Znox 113 GM Tube 1 APPLIC TOPICAL ×2 (05:50→17:45)
[2022-11-23] MEDS: Arthritis Pain Compound 60 CLICK TUBE TOPICAL ×2 (05:50→17:45)
[2022-11-23] MEDS: Propranolol 10 MG Tablet 20 MG PO (05:50)
[2022-11-23] MEDS: Loratadine 10 MG Tablet PO (05:51)
[2022-11-23] MEDS: Raloxifene HCl 60 MG Tablet PO (05:51)
[2022-11-23] MEDS: Senna/Docusate Sodium 1 Tablet PO ×2 (05:51→17:45)
[2022-11-23] MEDS: Nitrofurantoin Macrocrystals 100 MG Capsule PO (05:51)
[2022-11-23] MEDS: Ensure Plus High Protein 120 ML LIQUID PO ×3 (05:51→17:45)
[2022-11-23] MEDS: Levothyroxine 25 MCG TABLET PO (05:51)
[2022-11-23] MEDS: Carbidopa/Levodopa 25/100 Tablet PO ×3 (05:51→17:45)
[2022-11-23] MEDS: buPROPion (XL) 150 MG TABLET.XL PO (05:51)
[2022-11-23 06:41] LABS: Bedside Glucose 145 mg/dL (74-106)
[2022-11-23] MEDS: metFORMIN HCl 500 MG Tablet PO (07:58)
[2022-11-23 09:15] VITALS: PULSE 74; O2SAT 92
[2022-11-23 13:41] VITALS: BP 163/94; PULSE 80; RESP 19; TEMP 36.6; O2SAT 99
--- NOTE | 2022-11-23 14:56 | NURSING ---
Dr. Crooks notified of patient's on/off nausea/vomiting x2 days. Reviewed recent med changes with MD. Order to stop Macrobid (patient received last dose this AM) and N.O. for ODT 4mg Q8H PRN.
[2022-11-23] MEDS: Ondansetron ODT 4 MG Tablet PO (15:35)
[2022-11-23] MEDS: Rivaroxaban 10 MG Tablet PO (17:45)
[2022-11-23] MEDS: Donepezil HCl 10 MG Tablet PO (20:34)
[2022-11-23] MEDS: Atorvastatin Calcium 10 MG Tablet PO (20:35)
[2022-11-23] MEDS: Mirtazapine 15 MG Tablet 7.5 MG PO (20:35)
[2022-11-23] MEDS: MELATONIN 10 MG TABLET PO (20:35)
[2022-11-24] MEDS: Ondansetron ODT 4 MG Tablet PO (05:18)
[2022-11-24] MEDS: Arthritis Pain Compound 60 CLICK TUBE TOPICAL ×2 (05:20→17:51)
[2022-11-24] MEDS: Menthol/Lanolin/Calamine/Znox 113 GM Tube 1 APPLIC TOPICAL ×2 (05:20→17:51)
[2022-11-24] MEDS: buPROPion (XL) 150 MG TABLET.XL PO (05:21)
[2022-11-24] MEDS: Loratadine 10 MG Tablet PO (05:21)
[2022-11-24] MEDS: Propranolol 10 MG Tablet 20 MG PO (05:21)
[2022-11-24] MEDS: Raloxifene HCl 60 MG Tablet PO (05:21)
[2022-11-24] MEDS: Ensure Plus High Protein 120 ML LIQUID PO ×4 (05:21→19:44)
[2022-11-24] MEDS: Senna/Docusate Sodium 1 Tablet PO (05:21)
[2022-11-24] MEDS: Levothyroxine 25 MCG TABLET PO (05:21)
[2022-11-24] MEDS: Carbidopa/Levodopa 25/100 Tablet PO ×3 (05:22→16:24)
[2022-11-24 06:45] LABS: Bedside Glucose 206 mg/dL (74-106)
--- NOTE | 2022-11-24 08:40 | NURSING ---
Pt c/o of nausea this morning. Pt had emesis x2 and Diarrhea. Dr. Crooks updated N.O. for KUB.
--- NOTE | 2022-11-24 10:10 | RAD_ITS ---
STUDY: X-RAY - ABDOMEN/PELVIS REASON FOR EXAM: Female, 87 years old. Nausea, Vomiting, Diarrhea TECHNIQUE: Single AP view of the abdomen / pelvis. COMPARISON: Comparison is made with prior study November 16, 2022. FINDINGS: Stable mild elevation of the right hemidiaphragm. There is an unremarkable bowel gas pattern. The visualized liver, spleen and kidneys are grossly normal in size and morphology. Phleboliths are seen in the pelvis. There are diffuse degenerative changes of the visualized lumbar spine. Stable levoscoliosis of the lumbar spine. RAD/Abdomen Single View IMPRESSION: Stable examination. Nonspecific bowel gas pattern. Electronically Signed: Sunil Laguna MD at 10:34 EDT ,
[2022-11-24 15:38] VITALS: BP 142/65; PULSE 82; RESP 16; TEMP 36.4; O2SAT 97
[2022-11-24] MEDS: Rivaroxaban 10 MG Tablet PO (17:51)
[2022-11-24] MEDS: Donepezil HCl 10 MG Tablet PO (19:44)
[2022-11-24] MEDS: MELATONIN 10 MG TABLET PO (19:44)
[2022-11-24] MEDS: Mirtazapine 15 MG Tablet 7.5 MG PO (19:45)
[2022-11-24] MEDS: Atorvastatin Calcium 10 MG Tablet PO (19:45)
--- NOTE | 2022-11-24 19:50 | NURSING ---
Addendum entered by Marita Bailey 11/24/22 21:35: CT results came back and Dr. Crooks notified. No new orders at this time. RN aware. Addendum entered by Domo Byrd 11/24/22 20:34: supervisor respiratory notified of patient fall. Original Note: Patient heard yell for help, chair alarm sounding, PHONE BANKER and this nurse respond to patient room. Patient observed laying on floor with back resting against head of bed, legs extended, gripper socks in place. Active ROM x4 extremities. No inward/outward rotation or shortening of any extremity. when patient asked what she was attempting to do prior to fall patient states, I was going to go to the bathroom and fell. Fall unwitnessed by staff. Confusion at times per usual. When patient asked if hit head during fall, patient states yes but just a little, I'm fine. Pain assessed, patient states just sore from therapy. Raised red area observed to top left side of head. Neurochecks initiated. Pupils unequal, right pupil 2mm sluggish, left pupil 4mm sluggish. paged and notified of above, patient discussed medication, patient on Xarelto. New order received for STAT CT head without contrast, in unable to complete tonight, send to ED. Order repeated back to Dr. Crooks. CT called and states able to complete CT STAT as ordered. Patient primary nurse/PHONE BANKER (Shy) notified of new orders.
[2022-11-24 19:52] VITALS: BP 162/79; PULSE 114; RESP 16; TEMP 36.6; O2SAT 93
[2022-11-24 19:56] VITALS: PULSE 114; RESP 16; O2SAT 93
[2022-11-25] MEDS: Arthritis Pain Compound 60 CLICK TUBE TOPICAL ×2 (05:30→17:28)
[2022-11-25] MEDS: Carbidopa/Levodopa 25/100 Tablet PO (05:31)
[2022-11-25] MEDS: Propranolol 10 MG Tablet 20 MG PO (05:31)
[2022-11-25] MEDS: Loratadine 10 MG Tablet PO (05:31)
[2022-11-25] MEDS: Raloxifene HCl 60 MG Tablet PO (05:32)
[2022-11-25] MEDS: buPROPion (XL) 150 MG TABLET.XL PO (05:32)
[2022-11-25] MEDS: Menthol/Lanolin/Calamine/Znox 113 GM Tube 1 APPLIC TOPICAL ×2 (05:32→17:28)
[2022-11-25] MEDS: Ensure Plus High Protein 120 ML LIQUID PO ×3 (05:32→17:27)
[2022-11-25] MEDS: Levothyroxine 25 MCG TABLET PO (05:32)
[2022-11-25 06:26] LABS: Bedside Glucose 154 mg/dL (74-106)
--- NOTE | 2022-11-25 06:28 | NURSING ---
Contact informed of fall and CT scan at 0621: Daniel Bhatti
[2022-11-25] MEDS: metFORMIN HCl 500 MG Tablet PO (07:35)
[2022-11-25 07:40] VITALS: PULSE 85; RESP 16; O2SAT 94
--- NOTE | 2022-11-25 07:57 | NURSING ---
pt oriented to self and place, states she is very tired, no energy. resting in bed, hob elevated 45 degrees. able to move all extremities but very weak. rt pupil 2 cm sluggish, LT pupil 4cm reactive. pt refusing food but willing to drink juice. pts own josue wraps applied to BLEs.
--- NOTE | 2022-11-25 08:30 | CASEMGMT ---
Social Work Pt signed to accept Palliative services. Della Escobedo, CRITICAL CARE PARAMEDIC SLEEVE IRONER
[2022-11-25 10:20] VITALS: BP 146/60; PULSE 82; RESP 16; TEMP 36.7; O2SAT 95
--- NOTE | 2022-11-25 10:43 | NURSING ---
Addendum entered by Pao Clarke 11/25/22 17:15: [facility] Original Note: pt c/o nausea, gingerale given. message left for Dr kahn related to nausea, vomiting & loose stools yesterday.
[2022-11-25 12:48] VITALS: BMI 25.0
[2022-11-25 13:15] VITALS: BP 157/57; PULSE 86; RESP 16; TEMP 36.5; O2SAT 97
[2022-11-25 15:11] VITALS: BP 115/55; PULSE 84; RESP 14; TEMP 36.7; O2SAT 98
[2022-11-25] MEDS: Rivaroxaban 10 MG Tablet PO (17:27)
[2022-11-25] MEDS: Mirtazapine 15 MG Tablet 7.5 MG PO (21:01)
[2022-11-25] MEDS: MELATONIN 10 MG TABLET PO (21:01)
[2022-11-25] MEDS: Donepezil HCl 10 MG Tablet PO (21:02)
[2022-11-25] MEDS: Acetaminophen 500 MG Tablet 1000 MG PO (21:02)
[2022-11-25] MEDS: Atorvastatin Calcium 10 MG Tablet PO (21:03)
[2022-11-26] MEDS: Ensure Plus High Protein 120 ML LIQUID PO ×3 (05:19→16:58)
[2022-11-26] MEDS: Levothyroxine 25 MCG TABLET PO (05:20)
[2022-11-26] MEDS: buPROPion (XL) 150 MG TABLET.XL PO (05:20)
[2022-11-26] MEDS: Propranolol 10 MG Tablet 20 MG PO (05:20)
[2022-11-26] MEDS: Loratadine 10 MG Tablet PO (05:20)
[2022-11-26] MEDS: Ergocalciferol 1.25 MG (50, 000 UNIT) Capsule PO (05:21)
[2022-11-26] MEDS: Menthol/Lanolin/Calamine/Znox 113 GM Tube 1 APPLIC TOPICAL ×2 (05:21→16:58)
[2022-11-26] MEDS: Raloxifene HCl 60 MG Tablet PO (05:21)
[2022-11-26 05:29] VITALS: BP 141/75; PULSE 96
--- NOTE | 2022-11-26 05:47 | NURSING ---
Compound arthritis cream to be applied after bathing.
[2022-11-26 06:40] LABS: Bedside Glucose 170 mg/dL (74-106)
[2022-11-26] MEDS: metFORMIN HCl 500 MG Tablet PO (08:35)
[2022-11-26] MEDS: Arthritis Pain Compound 60 CLICK TUBE TOPICAL ×2 (08:37→16:58)
[2022-11-26] MEDS: Ondansetron ODT 4 MG Tablet PO (10:23)
--- NOTE | 2022-11-26 12:51 | MDS.RN ---
Information for the mds was obtained from review of the medical record, interview of resident, staff, and direct observation of resident's care.
--- NOTE | 2022-11-26 13:16 | CASEMGMT ---
Addendum entered by Della Escobedo 11/26/22 15:36: [facility] accepted pt but they are not in network with pt's insurance. SW contacted son and explained above. Son will sleep on it and talk to the family before making the final decision, but most likely will be [facility]. Answered further questions. Will continue to follow. Original Note: Social Work Insurance LCD 11/28, [place] 11/29. SW contacted son to update. Explained appeal rights. Son denied appealing. SW reviewed accepting facilities. Son's top choices from touring are [facility]. SW to refer to [facility] to get official acceptance. Son appreciative. SW updated all other SNFs and placed referral via CarePort. Plan: DC 11/29 to [facility] or [facility], intermediate Della Escobedo, RAUL HARVEYW
[2022-11-26 15:44] VITALS: BP 135/62; PULSE 88; RESP 20; TEMP 35.9; O2SAT 93
[2022-11-26] MEDS: Rivaroxaban 10 MG Tablet PO (16:58)
--- NOTE | 2022-11-26 21:04 | PCM.DC.SUM ---
Providers Date of Admission: 11/13/22 Primary Care Physician: ALANNAH BENITO Consultations 11/19/22 15:35 Consult: Hospice / Palliative Care Routine Consulting Provider: [facility] Reason for Consult: PALLIATIVE - per family request, Alzheimer's EMERGENT Consult: No MD Notified: Yes Date Notified: 11/19/22 Time Notified: 15:35 Method of Notification: Text Reason For Visit: DEBILITY Diagnosis Discharge Diagnosis (1) Debility: Status: Acute Code(s): R53.81 - Other malaise (2) Hyponatremia: Status: Acute Code(s): E87.1 - Hypo-osmolality and hyponatremia (3) Dehydration: Status: Acute Code(s): E86.0 - Dehydration (4) Diabetes mellitus: Status: Acute Code(s): E11.9 - Type 2 diabetes mellitus without complications (5) Hypertension: Status: Chronic Code(s): I10 - Essential (primary) hypertension (6) Hypothyroidism: Status: Acute Code(s): E03.9 - Hypothyroidism, unspecified (7) Hyperlipidemia: Status: Acute Code(s): E78.5 - Hyperlipidemia, unspecified (8) Alzheimer disease: Status: Acute Code(s): G30.9 - Alzheimer's disease, unspecified; F02.80 - Dementia in other diseases classified elsewhere, unspecified severity, without behavioral disturbance, psychotic disturbance, mood disturbance, and anxiety (9) Depression: Status: Acute Code(s): F32.A - Depression, unspecified Plan 87 year old female with below past medical history hospitalized for weakness secondary to hyponatremia, dehydration, admitted to TCU with debility, here for rehabilitation, strengthening, prior to discharge to [facility]. Debility - PT/OT. Cognition - ST. Pain - Tylenol 1000mg q6h prn pain (1-10). Bowel - senna/colace 1 tablet bid, Dulcolax 10mg pr daily prn. Adult immunization - Administer pneumonia vaccine, covid19 vaccine, flu vaccine as appropriate. DVT prophylaxis - HAS-BLED 1 intermediate risk of bleeding, Maru 4 high risk of blood clots, overall risk intermediate, Rx Xarelto 10mg daily x 2 weeks. Hyperlipidemia - Atorvastatin 10mg qhs. 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 Alzheimer Disease - Donepezil 10mg qhs. Nutrition - Ensure Plus 120ml 4x/day. Vitamin D deficiency - D2 1.25mg qweek. Hypothyroidism - Levothyroxine 25mcg daily. Diabetes Mellitus II - Metformin 500mg daily. Hypertension - Propranolol 20mg daily. Osteoporosis - Evista 60mg daily. Medications at Discharge Home Medications metformin 500 mg tablet 500 mg PO DAILY DIABETES 11/10/13 propranolol 20 mg tablet 20 mg PO DAILY tremors 11/10/13 levothyroxine 25 mcg tablet 25 mcg PO DAILY THYROID 02/08/17 atorvastatin 10 mg tablet 10 mg PO QHS CHOLESTEROL 11/11/22 cholecalciferol (vitamin D3) 1,250 mcg (50,000 unit) tablet 1,250 mcg PO WE SUPPLEMENT 11/11/22 raloxifene 60 mg tablet 60 mg PO DAILY Check with primary doctor 11/12/22 bupropion HCl 150 mg 24 hr tablet, extended release 150 mg PO DAILY mood 11/13/22 food supplemt, lactose-reduced 0.08 gram-1.5 kcal/mL oral liquid (Ensure Plus High Protein) 120 ml PO 4X/DAY ensure 11/13/22 acetaminophen 500 mg tablet 1,000 mg PO Q6H PRN PRN Pain Score 1-10 #0 tabs 11/26/22 donepezil 10 mg tablet 10 mg PO QHS #0 tabs 11/26/22 mirtazapine 15 mg tablet 7.5 mg PO QHS #0 tabs 11/26/22 Hospital Course Operations None Procedures None Summary of Care Provided Minutes Spent on Discharge: 35 Hospital Course: 87 year old female with below past medical history hospitalized for weakness secondary to hyponatremia, dehydration, admitted to TCU with debility, here for rehabilitation, strengthening, prior to discharge to [facility]. Discharge to [facility] 11/29/2022, intermediate. Physical Exam Const alert General Appearance: cooperative HEENT normocephalic Eyes PERRL and EOMs intact bilaterally Neck supple, no JVD and no carotid bruits Resp normal respiratory effort, normal air movement and clear to auscultation bilaterally Cardio regular rate and regular rhythm GI normal to inspection, nondistended, normoactive bowel sounds, non-tender and non-distended Extremity normal capillary refill General Extremity: Negative for edema Skin no rashes or lesions noted General Skin Exam: no breakdown Psych affect normal Appearance: appropriate Medical Records Data Medical Nutrition Assessment Dietitian: Malnutrition Criteria Met Start: 11/14/22 16:46 Freq: Status: Active Protocol: Document 11/26/22 14:47 HUSEYIN (Rec: 11/26/22 14:47 HUSEYIN [id number]) Nutrition Malnutrition Evidence of Malnutrition Exists Yes Malnutrition (severe): Acute Illness/Injury Evidenced By Suboptimal Energy Intake ( Severe),Weight Loss (Severe) Clinical Problem Acute Disease or Injury Related Malnutrition Etiology related to alzheimers and inadequate energy intake Signs/Symptoms related to <50% po intake of est nutritional needs and 2.9% unintended wt loss x past 1 wk d/t having issues w/ n/d Status Active Problem Recommendation Dietitian Recommendations/Changes Continue Regular diet - w/ fortified foods w/ all meals and small portions per res/ daughter request Continue fruit smoothie w/ breakfast and ensure pudding w / lunch and dinner Continue ONS w/ medpass ( ensure plus high protein 4x/ day) - prefers vanilla and strawberry Continue appetite stimulant to help encourage increased appetite. Weight / BMI Weight Weight: 54.295 kg Body Mass Index (BMI) 25.0 ABG / Lab / Microbiology Data Result Diagrams: 11/21/22 05:16 11/21/22 05:16 Laboratory: Laboratory Results - last 24 hr 11/26/22 06:12: POC Glucose 170 H Microbiology: Microbiology 11/14/22 09:53 Urine, Clean Catch Urine Culture - Final Escherichia coli Klebsiella pneumoniae sp pneum 11/16/22 05:50 Nasal Secretion SARS-CoV-2 Antigen (Rapid) - Final 11/15/22 11:17 Nasal Secretion SARS-CoV-2 Antigen (Rapid) - Final D/C Instructions Discharge Diet: No restrictions Discharge Activity: Return to Normal Activity, May Shower and Use Walker Weight Bearing Status: Weight bearing as tolerated Call your doctor if you observe: Fever of 101 or Higher, Inability to urinate, Inability to have a bowel movement, Shortness of breath, Dizziness, Fainting spells, Swelling in the ankles, Chest pain and Uncontrolled pain Additional Instructions: Discharge to [facility] 11/29/2022, intermediate. Meaningful Use Info Meaningful Use Diagnoses (Choose all that apply): None applicable Discharge Plan Admission Admit Date/Time: 11/13/22 16:43 Primary Reason for Your Visit: Debility. Attending Provider: Sylvester Crooks Chi Primary Care Provider: ALANNAH BENITO Consulting Providers: Magnolia Tafoya ; Steven Dean ; Fany Dao ; Tanisha Henriquez ; Britany White CONSTRUCTION PERSON Instructions Additional Instructions / Restrictions: Discharge to [facility] 11/29/2022, intermediate. Discharge Orders/Prescriptions Prescriptions: New donepezil 10 mg Tablet 10 mg PO QHS Qty: 0 0RF acetaminophen 500 mg Tablet 1,000 mg PO Q6H PRN PRN (Reason: Pain Score 1-10) Qty: 0 0RF mirtazapine 15 mg Tablet 7.5 mg PO QHS Qty: 0 0RF Continued metformin 500 MG tablet 500 mg PO DAILY propranolol 20 MG tablet 20 mg PO DAILY levothyroxine 25 MCG tablet 25 mcg PO DAILY atorvastatin 10 mg tablet 10 mg PO QHS cholecalciferol (vitamin D3) 1,250 mcg (50,000 unit) Tablet 1,250 mcg PO WE raloxifene 60 mg Tablet 60 mg PO DAILY bupropion HCl 150 mg tablet extended release 24 hr 150 mg PO DAILY Ensure Plus High Protein 0.08 gram-1.5 kcal/mL liquid 120 ml PO 4X/DAY Discontinued donepezil 10 mg tablet 100 mg PO QHS Referrals / Follow Up: ALANNAH BENITO [Other] Disposition Disposition (needs filled in before D/C Order can be placed): NonSkilled NH/Intermed Care
--- NOTE | 2022-11-26 21:09 | TREXTCAR_ITS ---
Diet Diet Order/Speech Therapy: 11/13/22 16:54 Diet: Regular - General Food consistency:: Regular Liquid Consistency:: Regular/Thin Dietary Modifications:: Fortified Foods Type of Dietary Supplement:: ensure pudding L and D Is pt able to select menu?: Yes Diet Comments: SMALL PORTIONS - 8 oz fruit smoothie at all meals; continue EP w/ L&D Routine Orders/Code Status Code Status: DNRCC Therapies Weight Bearing: Weight bearing as tolerated Extremity Affected:: Bilateral Lower Physical Therapy: Eval and Treat Occupational Therapy: Eval and Treat Speech Therapy: Eval and Treat Problem/Diagnosis (1) Debility: Status: Acute Code(s): R53.81 - Other malaise (2) Hyponatremia: Status: Acute Code(s): E87.1 - Hypo-osmolality and hyponatremia (3) Dehydration: Status: Acute Code(s): E86.0 - Dehydration (4) Diabetes mellitus: Status: Acute Code(s): E11.9 - Type 2 diabetes mellitus without complications (5) Hypertension: Status: Chronic Code(s): I10 - Essential (primary) hypertension (6) Hypothyroidism: Status: Acute Code(s): E03.9 - Hypothyroidism, unspecified (7) Hyperlipidemia: Status: Acute Code(s): E78.5 - Hyperlipidemia, unspecified (8) Alzheimer disease: Status: Acute Code(s): G30.9 - Alzheimer's disease, unspecified; F02.80 - Dementia in other diseases classified elsewhere, unspecified severity, without behavioral disturbance, psychotic disturbance, mood disturbance, and anxiety (9) Depression: Status: Acute Code(s): F32.A - Depression, unspecified Plan 87 year old female with below past medical history hospitalized for weakness secondary to hyponatremia, dehydration, admitted to TCU with debility, here for rehabilitation, strengthening, prior to discharge to [facility]. * Debility - PT/OT. * Cognition - ST. * Pain - Tylenol 1000mg q6h prn pain (1-10). * Bowel - senna/colace 1 tablet bid, Dulcolax 10mg pr daily prn. * Adult immunization - Administer pneumonia vaccine, covid19 vaccine, flu vaccine as appropriate. * DVT prophylaxis - HAS-BLED 1 intermediate risk of bleeding, Maru 4 high risk of blood clots, overall risk intermediate, Rx Xarelto 10mg daily x 2 weeks. * Hyperlipidemia - Atorvastatin 10mg qhs. * Depression - Bupropion XL 150mg daily, stable chronic usp use, GDR not recommended. * Alzheimer Disease - Donepezil 10mg qhs. * Nutrition - Ensure Plus 120ml 4x/day. * Vitamin D deficiency - D2 1.25mg qweek. * Hypothyroidism - Levothyroxine 25mcg daily. * Diabetes Mellitus II - Metformin 500mg daily. * Hypertension - Propranolol 20mg daily. * Osteoporosis - Evista 60mg daily. Allergies/Procedures Done in Hospital Allergies Penicillins [PCN] Adverse Reaction (Verified 11/11/22 16:49) Diarrhea Procedures: None Type of Care/Length of Stay Estimated LOS: Convalescent Care Less Than 30 days Type of Care Needed: Intermediate Rehab Potential: Fair Prognosis: Poor Additional Orders/Day of Discharge Day of Discharge: 11/29/22 Dietary and Speech Recommendations Dietitian Recommendations/Changes: Continue Regular diet - w/ fortified foods w/ all meals and small portions per res/daughter request Continue fruit smoothie w/ breakfast and ensure pudding w/ lunch and dinner Continue ONS w/ medpass (ensure plus high protein 4x/day) - prefers vanilla and strawberry Continue appetite stimulant to help encourage increased appetite. Discharge Plan Admission Admit Date/Time: 11/13/22 16:43 Primary Reason for Your Visit: Debility. Attending Provider: Sylvester Crooks Chi Primary Care Provider: ALANNAH BENITO Consulting Providers: Magnolia Tafoya ; Steven Dean ; Fany Dao ; Tanisha Henriquez ; Britany White DUPLICATING MACHINE MECHANIC Instructions Additional Instructions / Restrictions: Discharge to [facility] 11/29/2022, intermediate. Discharge Orders/Prescriptions Prescriptions: New donepezil 10 mg Tablet 10 mg PO QHS Qty: 0 0RF acetaminophen 500 mg Tablet 1,000 mg PO Q6H PRN PRN (Reason: Pain Score 1-10) Qty: 0 0RF mirtazapine 15 mg Tablet 7.5 mg PO QHS Qty: 0 0RF Continued metformin 500 MG tablet 500 mg PO DAILY propranolol 20 MG tablet 20 mg PO DAILY levothyroxine 25 MCG tablet 25 mcg PO DAILY atorvastatin 10 mg tablet 10 mg PO QHS cholecalciferol (vitamin D3) 1,250 mcg (50,000 unit) Tablet 1,250 mcg PO WE raloxifene 60 mg Tablet 60 mg PO DAILY bupropion HCl 150 mg tablet extended release 24 hr 150 mg PO DAILY Ensure Plus High Protein 0.08 gram-1.5 kcal/mL liquid 120 ml PO 4X/DAY Discontinued donepezil 10 mg tablet 100 mg PO QHS Referrals / Follow Up: ALANNAH BENITO [Other] Disposition Disposition (needs filled in before D/C Order can be placed): NonSkilled NH/Intermed Care
[2022-11-26] MEDS: Mirtazapine 15 MG Tablet 7.5 MG PO (21:28)
[2022-11-26] MEDS: Donepezil HCl 10 MG Tablet PO (21:28)
[2022-11-26] MEDS: Atorvastatin Calcium 10 MG Tablet PO (21:28)
[2022-11-26] MEDS: MELATONIN 10 MG TABLET PO (21:28)
[2022-11-26 21:33] VITALS: BP 136/58; PULSE 73; RESP 14; O2SAT 96
[2022-11-26 21:51] VITALS: PULSE 74; RESP 14; O2SAT 94
[2022-11-27 05:57] VITALS: BP 122/45; PULSE 90
[2022-11-27] MEDS: Loratadine 10 MG Tablet PO (05:58)
[2022-11-27] MEDS: Propranolol 10 MG Tablet 20 MG PO (05:58)
[2022-11-27] MEDS: buPROPion (XL) 150 MG TABLET.XL PO (05:58)
[2022-11-27] MEDS: Arthritis Pain Compound 60 CLICK TUBE TOPICAL ×2 (05:58→17:07)
[2022-11-27] MEDS: Menthol/Lanolin/Calamine/Znox 113 GM Tube 1 APPLIC TOPICAL ×2 (05:59→17:15)
[2022-11-27] MEDS: Levothyroxine 25 MCG TABLET PO (05:59)
[2022-11-27] MEDS: Raloxifene HCl 60 MG Tablet PO (05:59)
[2022-11-27] MEDS: Ensure Plus High Protein 120 ML LIQUID PO ×4 (06:00→22:13)
[2022-11-27 07:46] LABS: Bedside Glucose 148 mg/dL (74-106)
[2022-11-27] MEDS: metFORMIN HCl 500 MG Tablet PO (08:47)
--- NOTE | 2022-11-27 11:47 | CASEMGMT ---
Social Work Received call from son confirming placement at [facility] and requesting transport. SW confirmed with [facility]. PASRR completed. LOC sent to [facility]. DC paperwork and PASRR sent to [facility]. SW left voicemail with [facility] W[facility] CM of DC date and plans. Sent DC paperwork to [facility]. Scheduled cot transport through [facility] for [facility]. Della Escobedo, RAUL MANAGER FILM
--- NOTE | 2022-11-27 14:01 | MDS.RN ---
Pain interview for EUSEBIO 11/29/22
[2022-11-27 15:25] VITALS: BP 135/54; PULSE 84; RESP 14; TEMP 36.8; O2SAT 98
[2022-11-27] MEDS: Rivaroxaban 10 MG Tablet PO (17:06)
[2022-11-27 21:20] VITALS: PULSE 78; RESP 16; O2SAT 99
[2022-11-27] MEDS: MELATONIN 10 MG TABLET PO (22:13)
[2022-11-27] MEDS: Atorvastatin Calcium 10 MG Tablet PO (22:13)
[2022-11-27] MEDS: Donepezil HCl 10 MG Tablet PO (22:13)
[2022-11-27] MEDS: Mirtazapine 15 MG Tablet 7.5 MG PO (22:13)
[2022-11-28 05:27] LABS: Absolute Lymphocyte Count 2.74 X10^3/uL (0.83-4.51); Absolute Neutrophil Count 7.4 X10^3/uL (2.0-7.7); Basophil% 0.9 % (0-1); Eosinophil# 0.25 X10^3/uL; Eosinophils% 2.2 % (0-5); Hematocrit 34.9 % (37-47); Hemoglobin 11.2 g/dL (12.0-15.0); Lymphocyte # 2.74 X10^3/ul (0.83-4.51); Lymphocyte % 24.1 % (19-41); Mean Corp Hgb Conc 32.1 g/dL (32-36); Mean Corpuscular Hgb 30.9 pg (27.0-32.0); Mean Corpuscular Volume 96.4 fL (81-99); Mean Platelet Vol. 9.3 fl (6.2-12.0); Monocyte# 0.82 X10^3/uL; Monocyte% 7.2 % (0-10); NRBC Flagged by Analyzer 0 % (0-5); Neutrophil # 7.41 X10^3/uL (2.7-7.7); Platelet Count 445 K/mm3 (150-450); RBC Distribution Width CV 12.4 % (11.6-14.6); RBC Distribution Width SD 43.3 fl (35.1-43.9); Red Blood Count 3.62 M/mm3 (4.2-5.4); White Blood Count 11.4 K/mm3 (4.4-11.0)
[2022-11-28 05:49] LABS: Anion Gap 5 (5-15); BUN 17 mg/dL (7-18); BUN/Creat Ratio 18.2 RATIO (10-20); Calcium,Total 8.9 mg/dL (8.5-10.1); Chloride 104 mmol/L (98-107); Creatinine, Serum 0.93 mg/dL (0.55-1.02); EST Glomerular Filtration Rate 61 mL/min (>60); Est Glom Filt Rate - Afr Amer 73 mL/min (>60); Estimated Creatinine Clearance 37.22 ml/min; Glucose 146 mg/dL (74-106); Potassium 4.2 mmol/L (3.5-5.1); Sodium Level 137 mmol/L (136-145)
[2022-11-28] MEDS: Levothyroxine 25 MCG TABLET PO (06:17)
[2022-11-28] MEDS: Propranolol 10 MG Tablet 20 MG PO (06:17)
[2022-11-28] MEDS: buPROPion (XL) 150 MG TABLET.XL PO (06:17)
[2022-11-28] MEDS: Loratadine 10 MG Tablet PO (06:18)
[2022-11-28] MEDS: Raloxifene HCl 60 MG Tablet PO (06:18)
[2022-11-28] MEDS: Ensure Plus High Protein 120 ML LIQUID PO ×4 (06:18→21:20)
[2022-11-28] MEDS: Arthritis Pain Compound 60 CLICK TUBE TOPICAL ×2 (06:23→16:48)
[2022-11-28 06:24] VITALS: BP 131/55; PULSE 76
[2022-11-28] MEDS: Menthol/Lanolin/Calamine/Znox 113 GM Tube 1 APPLIC TOPICAL ×2 (06:24→16:49)
[2022-11-28 06:36] LABS: Bedside Glucose 146 mg/dL (74-106)
[2022-11-28] MEDS: metFORMIN HCl 500 MG Tablet PO (08:09)
[2022-11-28 10:00] VITALS: PULSE 72; O2SAT 97
[2022-11-28 13:27] VITALS: BP 133/61; PULSE 65; RESP 16; TEMP 36.2; O2SAT 95
[2022-11-28] MEDS: Rivaroxaban 10 MG Tablet PO (16:46)
[2022-11-28] MEDS: MELATONIN 10 MG TABLET PO (21:10)
[2022-11-28] MEDS: Atorvastatin Calcium 10 MG Tablet PO (21:11)
[2022-11-28] MEDS: Mirtazapine 15 MG Tablet 7.5 MG PO (21:12)
[2022-11-28] MEDS: Donepezil HCl 10 MG Tablet PO (21:14)
[2022-11-28] MEDS: Acetaminophen 500 MG Tablet 1000 MG PO (21:17)
[2022-11-29] MEDS: Ondansetron ODT 4 MG Tablet PO ×2 (01:53→10:22)
[2022-11-29] MEDS: Ensure Plus High Protein 120 ML LIQUID PO (06:38)
[2022-11-29] MEDS: Levothyroxine 25 MCG TABLET PO (06:39)
[2022-11-29] MEDS: Propranolol 10 MG Tablet 20 MG PO (06:39)
[2022-11-29] MEDS: Loratadine 10 MG Tablet PO (06:39)
[2022-11-29] MEDS: buPROPion (XL) 150 MG TABLET.XL PO (06:39)
[2022-11-29] MEDS: Raloxifene HCl 60 MG Tablet PO (06:39)
[2022-11-29] MEDS: Menthol/Lanolin/Calamine/Znox 113 GM Tube 1 APPLIC TOPICAL (06:39)
[2022-11-29] MEDS: Arthritis Pain Compound 60 CLICK TUBE TOPICAL (06:40)
[2022-11-29 06:50] LABS: Bedside Glucose 95 mg/dL (74-106)
[2022-11-29] MEDS: metFORMIN HCl 500 MG Tablet PO (08:16)
[2022-11-29 09:41] VITALS: BP 144/59; PULSE 92; RESP 16; TEMP 36.4; O2SAT 97
[2022-11-29 09:42] VITALS: PULSE 92; RESP 16; O2SAT 97
--- NOTE | 2022-11-29 11:08 | NURSING ---
Addendum entered by Pao Clarke 11/29/22 11:53: report called to [facility] Addendum entered by Pao Clarke 11/29/22 11:30: Correction, pt going to [facility]. Original Note: report called to Tete at [facility]. daughter here at bedside awaiting [facility]
== END 2022-11-29 11:30 | disposition intermediate care facility (04) | DRG 641 ==
PROVIDERS: Admitting Provider Family Medicine Geriatric Medicine; Visit Provider Family Medicine Geriatric Medicine
DX: E87.1 Hypo-osmolality and hyponatremia (principal); F02.80 Dementia in other diseases classified elsewhere, unspecified severity, without behavioral disturbance, psychotic disturbance, mood disturbance, and anxiety; E03.9 Hypothyroidism, unspecified; E11.22 Type 2 diabetes mellitus with diabetic chronic kidney disease; G30.9 Alzheimer's disease, unspecified; E78.5 Hyperlipidemia, unspecified; E55.9 Vitamin D deficiency, unspecified; I10 Essential (primary) hypertension; F32.A Depression, unspecified; Z79.84 Long term (current) use of oral hypoglycemic drugs; Z79.899 Other long term (current) drug therapy; Z79.810 Long term (current) use of selective estrogen receptor modulators (SERMs)
CPT/HCPCS: 36415; 70450; 71045; 74018; 74176; 80048; 80076; 81001; 82140; 82306; 82533; 82607; 82728; 82962; 83036; 83540; 83550; 83735; 83930; 83935; 84300; 84439; 84443; 84484; 84550; 85025; 87077; 87086; 87088; 87186; 87811; 92508; 92526; 92610; 93005; 97110; 97112; 97116; 97162; 97166; 97530; 97535; 97802; 99285; J7030; J7040; P9612; A4216

== ENCOUNTER → 2022-11-24 | Outpatient (CLI) | payer MEDICARE, MEDICAID, SELFPAY ==
--- NOTE | 2022-11-24 18:00 | CT_ITS ---
STUDY: CT BRAIN WITHOUT CONTRAST REASON FOR EXAM: Female, 87 years old. FALL RADIATION DOSAGE (If Supplied By Facility): CTDIvol = ( 44.99 ) mGy, DLP = ( 745.49 ) mGycm TECHNIQUE: Transaxial CT imaging of the brain was performed without administration of intravenous contrast material. Individualized dose optimization techniques were used for this CT. COMPARISON: 2022 FINDINGS: Focal left parietal scalp swelling. Normal calvarium. Prominent ventricles and extra-axial spaces with atrophy. Bilateral white matter microangiopathic ischemic change of the cerebral hemispheres. Normal basal ganglia and thalami. Normal brainstem. Normal cerebellum. There is no intracranial hemorrhage. There are no findings of an acute ischemic infarction. Normal visualized paranasal sinuses. CT/Brain/Head without Contrast IMPRESSION: Age-related changes of the brain. Electronically Signed: Yayo Mcmullen DO at 20:49 EDT ,
== END | disposition home or self-care (01) ==
LOC: CT 19:59
PROVIDERS: Referring Provider Family Medicine Geriatric Medicine; Visit Provider Family Medicine Geriatric Medicine
DX: S09.90XA Unspecified injury of head, initial encounter (principal); X58.XXXA Exposure to other specified factors, initial encounter
CPT/HCPCS: 70450

== ENCOUNTER → 2022-12-01 | Outpatient (REF) | payer MEDICARE, MEDICAID, SELFPAY ==
[2022-12-01 08:22] LABS: Absolute Lymphocyte Count 2.66 X10^3/uL (0.83-4.51); Absolute Neutrophil Count 5.8 X10^3/uL (2.0-7.7); Eosinophil# 0.22 X10^3/uL; Eosinophils% 2.3 % (0-5); Hematocrit 33.6 % (37-47); Hemoglobin 10.8 g/dL (12.0-15.0); Lymphocyte # 2.66 X10^3/ul (0.83-4.51); Lymphocyte % 27.5 % (19-41); Mean Corp Hgb Conc 32.1 g/dL (32-36); Mean Corpuscular Hgb 31.2 pg (27.0-32.0); Mean Corpuscular Volume 97.1 fL (81-99); Mean Platelet Vol. 9.9 fl (6.2-12.0); Monocyte# 0.81 X10^3/uL; Monocyte% 8.4 % (0-10); NRBC Flagged by Analyzer 0 % (0-5); Neutrophil # 5.81 X10^3/uL (2.7-7.7); Neutrophil % 60.2 % (47-70); Platelet Count 517 K/mm3 (150-450); RBC Distribution Width CV 12.5 % (11.6-14.6); RBC Distribution Width SD 44.6 fl (35.1-43.9); Red Blood Count 3.46 M/mm3 (4.2-5.4); White Blood Count 9.7 K/mm3 (4.4-11.0)
[2022-12-01 08:33] LABS: ALB/GLOB Ratio 0.8 RATIO (0.9-2.4); AST(SGOT) 15 U/L (15-37); Alanine Aminotransfer ALT/SGPT 22 U/L (13-56); Albumin, Serum 2.8 g/dL (3.2-5.0); Alkaline Phosphatase 60 U/L (45-117); Anion Gap 9 (5-15); BUN 18 mg/dL (7-18); BUN/Creat Ratio 16.1 RATIO (10-20); Chloride 100 mmol/L (98-107); Creatinine, Serum 1.12 mg/dL (0.55-1.02); EST Glomerular Filtration Rate 49 mL/min (>60); Est Glom Filt Rate - Afr Amer 59 mL/min (>60); Globulin 3.3 g/dL (2.2-4.2); Glucose 152 mg/dL (74-106); Potassium 4.3 mmol/L (3.5-5.1); Protein, Total 6.1 g/dL (6.4-8.2); Sodium Level 138 mmol/L (136-145)
== END ==
LOC: OLS.WHLTCC 05:00
PROVIDERS: Visit Provider Internal Medicine
DX: R53.83 Other fatigue (principal)
CPT/HCPCS: 36415; 80053; 85025

== ENCOUNTER 2023-01-20 01:59 | Emergency (ER) | payer MEDICARE, MEDICAID, SELFPAY ==
[2023-01-20 02:01] VITALS: BP 154/68; PULSE 77; RESP 16; TEMP 36.4; O2SAT 97; BMI 26.9
--- NOTE | 2023-01-20 02:21 | RAD_ITS ---
INDICATION: FALL EXAMINATION/TECHNIQUE: X-RAY - BILATERAL XR Knees Bilateral 1 or 2 Views Ea - [id number] VIEWS COMPARISON: FINDINGS: SOFT TISSUES: Prepatellar soft tissue swelling is worse in the left knee. No radiopaque foreign body. BONES/JOINTS: No acute fracture or subluxation.. Normal alignment. Moderate to severe degenerative arthrosis worse in the left knee more prominent in the medial femorotibial joints. RAD/Knee 1 or 2 Views IMPRESSION: Moderate to severe degenerative arthrosis worse in the left knee more prominent in the medial femorotibial joints. Electronically Signed: Netta Delarosa MD at 3:35 EDT ,
--- NOTE | 2023-01-20 02:21 | RAD_ITS ---
INDICATION: pain EXAMINATION/TECHNIQUE: X-RAY - BILATERAL XR Shoulders Bilateral Min 2 Views Ea - [id number] VIEWS COMPARISON: No relevant prior comparison study available FINDINGS: SOFT TISSUES: No soft tissue swelling or gas. No radiopaque foreign body. BONES/JOINTS: Severe narrowing of the subacromial space in both shoulders consistent with complete bilateral rotator cuff tear . Mild degenerative arthrosis in both shoulders. RAD/Shoulder min 2 Views IMPRESSION: Severe narrowing of the subacromial space in both shoulders consistent with complete bilateral rotator cuff tear . Mild degenerative arthrosis in both shoulders. Electronically Signed: Netta Delarosa MD at 3:36 EDT ,
--- NOTE | 2023-01-20 02:21 | CT_ITS ---
INDICATION: head injury EXAMINATION: CT CERVICAL SPINE - CT Spine Cervical W/O Contrast Injection TECHNIQUE: Helically acquired images were obtained of the cervical spine. 2D reformatted images were reviewed. A radiation dose optimization technique was used for this scan. IV Contrast dosage and agent: None. RADIATION DOSAGE (If Supplied By Facility): CTDIvol = ( 12.61 ) mGy, DLP = ( 248.00 ) mGycm COMPARISON: FINDINGS: Normal craniovertebral junction. Normal anterior atlantoaxial articulation. Normal odontoid process. There is straightening of the normal cervical lordosis. Normal vertebral bodies and posterior osseous elements. C2-3: Normal endplates. Normal disc height and morphology. Normal central canal and intervertebral neuroforamina. C3-4, C4-5, C5-6, C6-7: Endplate spondylosis. Central and paracentral disc bulge. Degenerative changes of the bilateral facet joints and uncovertebral joints. Zozx-in-oyakuued narrowing of the central canal and the bilateral intervertebral neural foramina. C7-T1: Normal endplates. Normal disc height and morphology. Normal central canal and intervertebral neuroforamina. Normal visualized soft tissue structures. CT/Spine Cervical without Contras IMPRESSION: Multilevel degenerative changes, as described above. Electronically Signed: Netta Delarosa MD at 3:18 EDT ,
--- NOTE | 2023-01-20 02:21 | CT_ITS ---
INDICATION: head injury EXAMINATION: CT BRAIN - CT Head or Brain W/O Contrast Injection TECHNIQUE: Multiple axial images were obtained of the head without intravenous contrast. A radiation dose optimization technique was used for this scan. IV Contrast dosage and agent: None. RADIATION DOSAGE (If Supplied By Facility): CTDIvol = ( 44.99 ) mGy, DLP = ( 796.11 ) mGycm COMPARISON: FINDINGS: BRAIN PARENCHYMA: No intra- or extra-axial hemorrhage. No evidence of acute infarct. No intracranial mass or mass effect. Moderate periventricular white matter chronic microvascular ischemic changes. Posterior fossa structures are unremarkable. CSF SPACES: Appropriate for age. No hydrocephalus. Basal cisterns are patent. CALVARIUM, SKULL BASE, PARANASAL SINUSES AND MASTOID AIR CELLS: Clear. No discrete lytic or blastic abnormalities. ORBITS: Both globes, extraocular muscles, optic nerves and retrobulbar fat appear unremarkable. ASPECTS Score for Acute Strokes: 10 CT/Brain/Head without Contrast IMPRESSION: No acute intracranial abnormality. Electronically Signed: Netta Delarosa MD at 3:16 EDT ,
--- NOTE | 2023-01-20 02:21 | RAD_ITS ---
INDICATION: pain EXAMINATION/TECHNIQUE: X-RAY - XR Pelvis 1 or 2 Views COMPARISON: FINDINGS: PELVIC BONES: No displaced fracture, destructive or sclerotic lesions. Note that overlapping bowel shadows may however obscure fine detail. Sacroiliac joints demonstrate mild degenerative arthrosis. No widening of the pubic symphysis. HIPS: Moderate degenerative arthrosis. No displaced fracture seen in this frontal view. SOFT TISSUES: No soft tissue swelling or gas. RAD/Pelvis 1 or 2 Views IMPRESSION: Degenerative arthrosis. No evidence of displaced pelvic or hip fracture. Electronically Signed: Netta Delarosa MD at 3:32 EDT ,
--- NOTE | 2023-01-20 03:42 | EX.ED.DYSGE1 ---
HPI History of Present Illness Chief Complaint: Fall Informant: patient and EMS Limited: dementia Narrative Narrative: Patient is a 87-year-old female with past medical history of dementia who stays in a skilled nursing in their dementia unit. Nursing reports that patient was reportedly wandering this evening and had a fall. They found the patient awake and alert but with trauma to her head/face. They deny any blood thinners but states secondary to the fall and patient complaining of pain in her knees and shoulders she was sent in for evaluation [facility] Medical History Alzheimer's disease, unspecified Depression, unspecified GERD (gastroesophageal reflux disease) Hypertensive chronic kidney disease with stage 1 through stage 4 chronic kidney disease, or unspecified chronic kidney disease Hypothyroidism, unspecified Type 2 diabetes mellitus with unspecified complications Home Medications metformin 500 mg tablet 500 mg PO DAILY DIABETES 11/10/13 [History Last Taken 11/10/22] propranolol 20 mg tablet 20 mg PO DAILY tremors 11/10/13 [History Last Taken 11/10/22] levothyroxine 25 mcg tablet 25 mcg PO DAILY THYROID 02/08/17 [History Last Taken 11/10/22] atorvastatin 10 mg tablet 10 mg PO QHS CHOLESTEROL 11/11/22 [History Last Taken 11/10/22] cholecalciferol (vitamin D3) 1,250 mcg (50,000 unit) tablet 1,250 mcg PO WE SUPPLEMENT 11/11/22 [History Last Taken Unknown] raloxifene 60 mg tablet 60 mg PO DAILY Check with primary doctor 11/12/22 [History Last Taken 11/10/22] bupropion HCl 150 mg 24 hr tablet, extended release 150 mg PO DAILY mood 11/13/22 [History Last Taken Unknown] food supplemt, lactose-reduced 0.08 gram-1.5 kcal/mL oral liquid (Ensure Plus High Protein) 120 ml PO 4X/DAY ensure 11/13/22 [History Last Taken Unknown] acetaminophen 500 mg tablet 1,000 mg (2 x 500 mg) PO Q6H PRN PRN Pain Score 1-10 #0 tabs 11/26/22 [Rx Last Taken Unknown] donepezil 10 mg tablet 10 mg PO QHS #0 tabs 11/26/22 [Rx Last Taken Unknown] mirtazapine 15 mg tablet 7.5 mg (1/2 x 15 mg) PO QHS #0 tabs 11/26/22 [Rx Last Taken Unknown] Allergy/AdvReac Type Severity Reaction Status Date / Time Penicillins [PCN] AdvReac Diarrhea Verified 11/11/22 16:49 Family History Other Diabetes Surgical History H/O section History of bowel resection Social History (Updated 11/13/22 @ 19:[address] Sylvester Crooks MD) housing: assisted living facility Smoking Status: Never smoker alcohol intake: never substance use type: does not use ROS ROS ED Constitutional Constitutional ED: Denies chills or fever(s) Eyes Eyes: Denies change in vision ENT ENT ED: Reports other Details: Positive nosebleed ; Denies sore throat Cardiovascular Cardiovascular: Denies chest pain Respiratory/Chest Respiratory/Chest: Denies cough or dyspnea Gastrointestinal Gastrointestinal: Denies abdominal pain, diarrhea, nausea or vomiting Genitourinary Genitourinary ED: Denies dysuria Musculoskeletal Musculoskeletal: Reports other Details: Positive bilateral shoulder and bilateral knee pain ; Denies back pain or neck pain Integumentary Reports Abrasions; Denies rash Neurologic Neurologic: Denies headache(s) Hematologic/Lymphatic Hematologic/Lymphatic: Denies easy bleeding or easy bruising EXAM Physical Exam Const Vital Signs: 01/20/23 02:01 01/20/23 03:50 Temperature 97.5 F L Temperature Source Temporal Pulse Rate 77 78 Respiratory Rate 16 18 Blood Pressure 154/68 H 146/61 H Blood Pressure Mean 96 Pulse Ox 97 97 Positive well nourished and well developed General Appearance ED: well developed HEENT HEENT Narrative: Patient has a 1 x 2 hematoma to the midportion of the forehead as well as ecchymosis and soft tissue swelling to the bridge of the nose. There is dried blood in the right nostril but no septal hematoma. No signs of depressed or basilar skull fracture Eyes PERRL and EOMs intact bilaterally Eyes Narrative: No hyphema Neck Neck Narrative: C collar in place without bony deformity or step-off of the cervical spine but there is midline pain on palpation Chest Wall palpation of chest normal Chest Narrative: No bony deformity or crepitance noted Resp normal respiratory effort and clear to auscultation bilaterally Cardio regular rate and regular rhythm Rate: other Other Details: Radial pulses are plus 2 out of 4 bilaterally are equal and symmetric GI normal to inspection, nondistended, normoactive bowel sounds, non-tender, non-distended and no masses GI Narrative: No voluntary guarding or rigidity no pulsatile mass or fluid wave Auscultation: normoactive bowel sounds Palpation: soft Back/Spine Back/Spine Narrative: No bony deformity or step-off of the thoracic or lumbar spine no midline pain with palpation Extremity Extremity Narrative: Pelvis is stable there is no shortening or external rotation of either lower extremity Patient has soft tissue swelling ecchymosis to the anterior aspects of bilateral knees that are tender to palpation without obvious bony deformity or joint effusion. Patellar tendon is intact bilaterally and knee ligaments are stable Patient also has pain on palpation of bilateral shoulders without bony deformity or joint effusion or sulcus sign present Neuro CN's II-XII intact bilaterally Neuro Narrative: Patient is at her baseline mental status without focal neurologic deficit Sensorium / Orientation: alert Psych mental status grossly normal Skin no rashes or lesions noted Skin Narrative: Soft tissue swelling with ecchymosis over top bilateral knees as documented above as well as ecchymosis and swelling to the forehead and bridge of nose MDM MDM MDM Narrative Medical decision making narrative: Patient presented to the ER at her baseline mental status. With report of fall and facial trauma there is concern for underlying skull fracture or epidural or subdural hematoma or cervical spine fracture. Patient also could have possible shoulder fracture clavicle fracture and shoulder dislocation patellar fracture or ligamentous or tendon disruption. X-rays and CTs were obtained which revealed age-related findings without acute fracture dislocation or bleed. Therefore at this time as patient's work-up reveals no acute traumatic findings and she is at her baseline mental status and vitals are stable there is no need for further work-up and he is otherwise safe for discharge History & Record Review Discussion w/independent historian: EMS personnel and Patient Radiography Diagnostic Testing: Clinical Impression(s) from Imaging Studies Brain CT 01/20/23 02:21 IMPRESSION: No acute intracranial abnormality. Electronically Signed: Netta Delarosa MD at 3:16 EDT Reading Location ID and State: [facility] / [place] Tel , Service support , Cervical Spine CT 01/20/23 02:21 IMPRESSION: Multilevel degenerative changes, as described above. 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 Electronically Signed: Netta Delarosa MD at 3:35 EDT Reading Location ID and State: [facility] / [place] Tel , Service support , Pelvis X-Ray 01/20/23 02:21 IMPRESSION: Degenerative arthrosis. No evidence of displaced pelvic or hip fracture. Electronically Signed: Netta Delarosa MD at 3:32 EDT , Shoulder X-Ray 01/20/23 02:21 IMPRESSION: Severe narrowing of the subacromial space in both shoulders consistent with complete bilateral rotator cuff tear . Mild degenerative arthrosis in both shoulders. Electronically Signed: Netta Delarosa MD at 3:36 EDT , Pelvis x-rays interpreted by the emergency medicine physician reveals age-related degenerative changes without acute fracture or dislocation Bilateral knee x-ray as interpreted by the emergency medicine physician reveals age-related degenerative changes without acute fracture or dislocation Bilateral shoulder x-rays as interpreted by the emergency medicine physician reveal chronic dislocation or joint effusion Discharge Plan Triage Chief Complaint: Fall ED Provider: Jos Rush Dx/Rx/DC Orders Clinical Impression: Traumatic hematoma of face, Closed head injury, Contusion of multiple sites, Type 2 diabetes mellitus, Alzheimer disease, Hypertension Instructions: Bruises (Contusions), ED Head Injury (Adult), ED Hematoma Prescriptions: No Action metformin 500 MG tablet 500 mg PO DAILY propranolol 20 MG tablet 20 mg PO DAILY levothyroxine 25 MCG tablet 25 mcg PO DAILY atorvastatin 10 mg tablet 10 mg PO QHS cholecalciferol (vitamin D3) 1,250 mcg (50,000 unit) Tablet 1,250 mcg PO WE raloxifene 60 mg Tablet 60 mg PO DAILY bupropion HCl 150 mg tablet extended release 24 hr 150 mg PO DAILY Ensure Plus High Protein 0.08 gram-1.5 kcal/mL liquid 120 ml PO 4X/DAY donepezil 10 mg Tablet 10 mg PO QHS Qty: 0 0RF acetaminophen 500 mg Tablet 1,000 mg PO Q6H PRN PRN (Reason: Pain Score 1-10) Qty: 0 0RF mirtazapine 15 mg Tablet 7.5 mg PO QHS Qty: 0 0RF Primary Care Provider: Pete Payne Referrals: Pete Payne MD [Primary Care Provider] - Disposition Disposition: Home, Self Care
--- NOTE | 2023-01-20 03:49 | ED.RN ---
REPORT CALLED TO JADEN, FACILITY NURSE AT [facility]
[2023-01-20 03:50] VITALS: BP 146/61; PULSE 78; RESP 18; O2SAT 97
== END 2023-01-20 06:57 | disposition home or self-care (01) ==
LOC: ED 04:01
PROVIDERS: Emergency Provider Emergency Medicine; PCP Internal Medicine; Visit Provider Emergency Medicine
DX: S00.83XA Contusion of other part of head, initial encounter (principal); G30.9 Alzheimer's disease, unspecified; F02.80 Dementia in other diseases classified elsewhere, unspecified severity, without behavioral disturbance, psychotic disturbance, mood disturbance, and anxiety; E11.22 Type 2 diabetes mellitus with diabetic chronic kidney disease; S09.90XA Unspecified injury of head, initial encounter; I12.9 Hypertensive chronic kidney disease with stage 1 through stage 4 chronic kidney disease, or unspecified chronic kidney disease; N18.9 Chronic kidney disease, unspecified; S00.33XA Contusion of nose, initial encounter; S80.211A Abrasion, right knee, initial encounter; S80.212A Abrasion, left knee, initial encounter; S00.81XA Abrasion of other part of head, initial encounter; W19.XXXA Unspecified fall, initial encounter
CPT/HCPCS: 70450; 72125; 72170; 73030; 73560; 99284

== ENCOUNTER → 2023-03-12 | Outpatient (REF) | payer MEDICARE, MEDICAID, SELFPAY ==
[2023-03-12 10:22] LABS: Absolute Lymphocyte Count 2.46 X10^3/uL (0.83-4.51); Absolute Neutrophil Count 4.8 X10^3/uL (2.0-7.7); Basophil# 0.09 X10^3/uL; Basophil% 1.1 % (0-1); Eosinophil# 0.23 X10^3/uL; Eosinophils% 2.8 % (0-5); Hematocrit 33.7 % (37-47); Lymphocyte # 2.46 X10^3/ul (0.83-4.51); Lymphocyte % 29.5 % (19-41); Mean Corp Hgb Conc 32.6 g/dL (32-36); Mean Corpuscular Hgb 30.6 pg (27.0-32.0); Mean Corpuscular Volume 93.9 fL (81-99); Mean Platelet Vol. 9.8 fl (6.2-12.0); Monocyte# 0.77 X10^3/uL; Monocyte% 9.2 % (0-10); NRBC Flagged by Analyzer 0 % (0-5); Neutrophil # 4.75 X10^3/uL (2.7-7.7); Platelet Count 361 K/mm3 (150-450); RBC Distribution Width CV 12.4 % (11.6-14.6); RBC Distribution Width SD 42.9 fl (35.1-43.9); Red Blood Count 3.59 M/mm3 (4.2-5.4); White Blood Count 8.3 K/mm3 (4.4-11.0)
[2023-03-12 10:38] LABS: ALB/GLOB Ratio 0.9 RATIO (0.9-2.4); AST(SGOT) 13 U/L (15-37); Alanine Aminotransfer ALT/SGPT 16 U/L (13-56); Albumin, Serum 2.9 g/dL (3.2-5.0); Alkaline Phosphatase 57 U/L (45-117); Anion Gap 7 (5-15); BUN 17 mg/dL (7-18); Chloride 106 mmol/L (98-107); Cholesterol 106 mg/dL (200); Creatinine, Serum 1.06 mg/dL (0.55-1.02); EST Glomerular Filtration Rate 52 mL/min (>60); Est Glom Filt Rate - Afr Amer 63 mL/min (>60); Globulin 3.4 g/dL (2.2-4.2); Glucose 151 mg/dL (74-106); High Density Lipoprotein 46 mg/dL; Potassium 4.1 mmol/L (3.5-5.1); Protein, Total 6.3 g/dL (6.4-8.2); Sodium Level 138 mmol/L (136-145); Thyroid Stim Hormone (TSH) 4.75 uIU/mL (0.358-3.74); Triglycerides 135 mg/dL; Very Low Density Lipoprotein 27 mg/dL (5-40)
[2023-03-12 10:39] LABS: Vitamin D,25 Hydroxy 107.1 ng/mL
[2023-03-12 10:47] LABS: Hemoglobin A1c 7.2 % (3.8-5.6)
== END ==
LOC: OLS.WHLCAR 05:00
PROVIDERS: PCP Internal Medicine; Visit Provider Internal Medicine
DX: E11.22 Type 2 diabetes mellitus with diabetic chronic kidney disease (principal); I12.9 Hypertensive chronic kidney disease with stage 1 through stage 4 chronic kidney disease, or unspecified chronic kidney disease; E55.9 Vitamin D deficiency, unspecified; E78.5 Hyperlipidemia, unspecified; G30.9 Alzheimer's disease, unspecified; F02.A3 Dementia in other diseases classified elsewhere, mild, with mood disturbance; N18.9 Chronic kidney disease, unspecified
CPT/HCPCS: 36415; 80053; 80061; 82306; 83036; 84443; 85025

== ENCOUNTER → 2023-03-16 | Outpatient (REF) | payer MEDICARE, MEDICAID, SELFPAY ==
[2023-03-16 09:56] LABS: T4 Free Direct 1.07 ng/dL (0.76-1.46); Thyroid Stim Hormone (TSH) 4.03 uIU/mL (0.358-3.74)
[2023-03-16 12:49] LABS: T3 Total - Triiodothyronine 1.24 ng/mL (0.6-1.81)
== END ==
LOC: OLS.WHLCAR 05:00
PROVIDERS: PCP Internal Medicine; Visit Provider Internal Medicine
DX: E03.9 Hypothyroidism, unspecified (principal)
CPT/HCPCS: 36415; 84439; 84443; 84480

== ENCOUNTER 2023-07-25 04:39 | Emergency (ER) | payer OTHER, MEDICAID, SELFPAY ==
[2023-07-25] VITALS (11 sets, daily range): BP systolic 132–150; BP diastolic 50–108; PULSE 70–91; RESP 11–16; TEMP 36.4–36.7; O2SAT 95–99; BMI 29.0; BMI 29.2
--- NOTE | 2023-07-25 04:58 | CT_ITS ---
EXAM: CT CERVICAL SPINE WITHOUT INTRAVENOUS CONTRAST CLINICAL INDICATION: fall TECHNIQUE: Helically acquired images were obtained of the cervical spine without intravenous contrast. 2D reformatted images were reviewed. This CT exam was performed using one or more of the following dose reduction techniques: automated exposure control, adjustment of the mA and/or kV according to patient size, and/or use of iterative reconstruction technique. RADIATION DOSE: CTDIvol = 14.01 mGy, DLP = 282.50 mGy-cm COMPARISON: No relevant prior studies available. FINDINGS: VERTEBRAE: Nonunited posterior ring of C1 with well-corticated margins, a common developmental variation. DISCS/SPINAL CANAL/NEURAL FORAMINA: Marked disc space narrowing and moderate endplate sclerosis and spondylosis at C4-5 and C5-6 milder disc space narrowing and mild spondylosis at C3-4 C6-7 spine minimal ventral thecal sac narrowing at multiple levels. Moderate narrowing of the left C2-3 neural foramen and marked narrowing of the proximal left C3-4 neural foramen due to hypertrophic facet joint changes. SOFT TISSUES: Unremarkable. No prevertebral soft tissue swelling. VASCULATURE: Mild cervical carotid calcifications, greater on the left. Moderate calcifications of the aortic arch and proximal left subclavian artery. LYMPH NODES: Unremarkable. No cervical adenopathy. THYROID: Small homogeneous thyroid appears unremarkable. LUNG APICES: Incidentally noted azygos lobe at the medial right lung apex, normal variation. OTHER FINDINGS: Mildly rotated and asymmetric patient positioning. CT/Spine Cervical without Contras IMPRESSION: No acute posttraumatic abnormality. Multilevel degenerative changes. Electronically Signed: Gabrielle Gallegos MD at 6:35 EST ,
--- NOTE | 2023-07-25 04:58 | RAD_ITS ---
EXAM: XR RIGHT KNEE COMPLETE, 4 OR MORE VIEWS CLINICAL INDICATION: pain TECHNIQUE: Four or more views of the right knee. COMPARISON: No relevant prior studies available. FINDINGS: BONES/JOINTS: Narrowing of the patellofemoral joint compartment. Fairly well-maintained medial and lateral joint compartments mild periarticular osteophytes at the medial and lateral knee. Small double density anterior to the medial femoral condyle on the sunrise patellar view, likely due to degenerative change on the lateral view. No convincing fracture. SOFT TISSUES: Slight apparent fluid in the suprapatellar bursa on the lateral view, no fat-fluid level. No soft tissue swelling or gas. No radiopaque foreign body. RAD/Knee 4 or More Views IMPRESSION: 1. Small suprapatellar joint effusion. 2. Multi compartmental degenerative changes. 3. Mild double bone density at the anterior-medial femoral condyle on the sunrise patellar view, not confirmed on other views. Consider CT if there is strong clinical suspicion of acute fracture, especially anterior-medial pain. Electronically Signed: Gabrielle Gallegos MD at 6:40 EST ,
--- NOTE | 2023-07-25 04:58 | CT_ITS ---
EXAM: CT HEAD WITHOUT INTRAVENOUS CONTRAST CLINICAL INDICATION: head injury TECHNIQUE: Multiple axial images were obtained of the head without intravenous contrast. This CT exam was performed using one or more of the following dose reduction techniques: automated exposure control, adjustment of the mA and/or kV according to patient size, and/or use of iterative reconstruction technique. RADIATION DOSE: CTDIvol = 44.99 mGy, DLP = 779.24 mGy-cm. COMPARISON: No relevant prior studies available. FINDINGS: BRAIN AND EXTRA-AXIAL SPACES: Moderate cerebral volume loss, mild hydrocephalus ex vacuo, mild-moderate low-attenuation deep periventricular and centrum semiovale white matter changes. No intra- or extra-axial hemorrhage. No evidence of acute infarct. No intracranial mass or mass effect. There is preservation of the peraza/white matter interface. Posterior fossa structures are unremarkable. Basal cisterns are patent. BONES/JOINTS: Unremarkable. No discrete lytic or blastic abnormalities. VASCULATURE: Intracranial carotid calcifications. SINUSES: Unremarkable as visualized. Clear. MASTOID AIR CELLS: Unremarkable. Clear. ORBITS: Visualized globes, extraocular muscles, optic nerves and retrobulbar fat appear unremarkable. OTHER FINDINGS: Moderate. CT/Brain/Head without Contrast IMPRESSION: No acute intracranial abnormality. Stable moderate chronic changes. Electronically Signed: Gabrielle Gallegos MD at 6:20 EST ,
--- NOTE | 2023-07-25 05:47 | RAD_ITS ---
EXAM: XR LEFT HIP WITH PELVIS WHEN PERFORMED, 2 OR 3 VIEWS CLINICAL INDICATION: pain TECHNIQUE: AP view of the pelvis, AP and frog-leg lateral views of the left hip. COMPARISON: Pelvic radiograph January 20, 2023 FINDINGS: BONES/JOINTS: Pelvis included hips and pubic symphysis and symmetric SI joint appears intact. There is a sclerotic bone density inferior to the left anterior-inferior iliac spine which may be avulsion fracture, uncertain chronicity but it was present and projected over the mid left iliac body on the prior exam. Proximal femurs appear intact. SOFT TISSUES: Unremarkable. No soft tissue swelling or gas. RAD/HIP, UNI W/ Pelvis 2-3 Views IMPRESSION: No acute pelvic or left hip fracture demonstrated. Electronically Signed: Gabrielle Gallegos MD at 6:45 EST ,
--- NOTE | 2023-07-25 06:44 | CT_ITS ---
EXAM: CT RIGHT LOWER EXTREMITY WITHOUT INTRAVENOUS CONTRAST CLINICAL INDICATION: Abnormal x-ray/ ? Patellar fracture TECHNIQUE: Helically acquired images were obtained of the right lower extremity without intravenous contrast. 2-D reformats were performed by the technologist. This CT exam was performed using one or more of the following dose reduction techniques: automated exposure control, adjustment of the mA and/or kV according to patient size, and/or use of iterative reconstruction technique. RADIATION DOSE: CTDIvol = 15.35 mGy, DLP = 380.63 mGy-cmContrast: COMPARISON: No relevant prior studies available. FINDINGS: BONES/JOINTS: Mild but mildly dense fluid in the suprapatellar bursa, possibly mild hemarthrosis. No fat-fluid level. Subchondral sclerosis in the posterior lateral tibial plateau and in the anterior to posterior medial tibial plateau. Irregular cortex at the posterior-lateral medial tibial plateau small oblique incomplete lucent line not typical for acute fracture., The more inferior cortex appears intact. Double density appearance at the posterior medial femoral condyle appears to be due to hypertrophic changes. Small ossific densities superior to the patella appear chronic. Preservation of the joint space. SOFT TISSUES: Unremarkable. No soft tissue swelling or gas. No radiopaque foreign body. CT/Extremity Lower without Contra IMPRESSION: 1. Small amount of presumed hemarthrosis or other complex mildly dense fluid in the suprapatellar bursa. No lipohemarthrosis or convincing acute fracture. 2. Irregular posterior-medial tibial plateau corner is not typical of acute fracture. Demineralization and degenerative changes. Electronically Signed: Gabrielle Gallegos MD at 8:18 EST ,
--- NOTE | 2023-07-25 08:39 | EX.ED.DYSGE1 ---
HPI History of Present Illness Chief Complaint: Fall Informant: patient and SNF Narrative Narrative: Patient is a 87-year-old female with history of hypertension hyperlipidemia hypothyroidism type 2 diabetes and debility as well as Alzheimer's disease. She is typically A&O x 1. [facility] states that she was found on her knees in front of of her doorway and that they did not see her fall and based on her Alzheimer's she does not have any recollection of falling. They concerned she may have struck her head or sustained a fracture and therefore sent her to the hospital for evaluation. Patient admits to knee pain and left hip pain at this time but otherwise denies any symptoms [facility] Medical History Alzheimer's disease, unspecified CKD (chronic kidney disease) Constipation Depression, unspecified Dry eye syndrome of bilateral lacrimal glands GERD (gastroesophageal reflux disease) Hyperlipidemia Hypertensive chronic kidney disease with stage 1 through stage 4 chronic kidney disease, or unspecified chronic kidney disease Hypokalemia Hypothyroidism, unspecified Type 2 diabetes mellitus with unspecified complications Weakness Home Medications metformin 500 mg tablet 500 mg PO DAILY DIABETES 11/10/13 [History Last Taken 07/24/23] propranolol 20 mg tablet 20 mg PO DAILY tremors 11/10/13 [History Last Taken 07/24/23] levothyroxine 25 mcg tablet 25 mcg PO DAILY THYROID 02/08/17 [History Last Taken 07/24/23] atorvastatin 10 mg tablet 10 mg PO QHS CHOLESTEROL 11/11/22 [History Last Taken 07/24/23] cholecalciferol (vitamin D3) 1,250 mcg (50,000 unit) tablet 1,250 mcg PO WE SUPPLEMENT 11/11/22 [History Last Taken 07/24/23] raloxifene 60 mg tablet 60 mg PO DAILY Check with primary doctor 11/12/22 [History Last Taken 07/24/23] bupropion HCl 150 mg 24 hr tablet, extended release 150 mg PO DAILY mood 11/13/22 [History Last Taken 07/24/23] food supplemt, lactose-reduced 0.08 gram-1.5 kcal/mL oral liquid (Ensure Plus High Protein) 120 ml PO 4X/DAY ensure 11/13/22 [History Last Taken 07/24/23] acetaminophen 500 mg tablet 1,000 mg (2 x 500 mg) PO Q6H PRN PRN Pain Score 1-10 #0 tabs 11/26/22 [Rx Last Taken Unknown] donepezil 10 mg tablet 10 mg PO QHS #0 tabs 11/26/22 [Rx Last Taken 07/24/23] mirtazapine 15 mg tablet 7.5 mg (1/2 x 15 mg) PO QHS #0 tabs 11/26/22 [Rx Last Taken 07/24/23] citalopram 10 mg tablet (Celexa) 10 mg PO DAILY 07/25/23 [History Last Taken Unknown] Allergy/AdvReac Type Severity Reaction Status Date / Time Penicillins [PCN] AdvReac Diarrhea Verified 07/25/23 07:59 Family History Other Diabetes Surgical History H/O section History of bowel resection Social History (Updated 11/13/22 @ 19:[address] Sylvester Crooks MD) housing: assisted living facility Smoking Status: Never smoker alcohol intake: never substance use type: does not use ROS ROS ED ROS Narrative Please note review of systems may be unreliable secondary to history of dementia Constitutional Constitutional ED: Denies chills or fever(s) Eyes Eyes: Denies change in vision ENT ENT ED: Denies sore throat Cardiovascular Cardiovascular: Reports other Details: Patient denies syncope ; Denies chest pain Respiratory/Chest Respiratory/Chest: Denies cough or dyspnea Gastrointestinal Gastrointestinal: Denies abdominal pain, diarrhea, nausea or vomiting Genitourinary Genitourinary ED: Denies dysuria Musculoskeletal Musculoskeletal: Reports other Details: Positive bilateral knee pain and left hip pain Integumentary Denies rash Neurologic Neurologic: Denies headache(s) Hematologic/Lymphatic Hematologic/Lymphatic: Denies easy bleeding or easy bruising EXAM Physical Exam Const Vital Signs: 07/25/23 04:40 07/25/23 04:49 07/25/23 05:39 Temperature 97.9 F Temperature Source Temporal Pulse Rate 79 81 Respiratory Rate 11 L 14 Respiratory Effort Normal Respiratory Depth Normal Respiratory Pattern Normal Blood Pressure 132/62 H Blood Pressure Mean 85 Pulse Ox 97 98 Oxygen Delivery Method Room Air Room Air Room Air 07/25/23 06:00 07/25/23 07:00 07/25/23 08:00 Temperature 97.6 F L 97.7 F L 97.8 F Temperature Source Temporal Temporal Temporal Pulse Rate 85 89 80 Respiratory Rate 16 14 15 Respiratory Effort Respiratory Depth Respiratory Pattern Blood Pressure 138/108 H 132/104 H 144/57 H Blood Pressure Mean 118 113 86 Pulse Ox 97 98 95 Oxygen Delivery Method Room Air Room Air Room Air Positive well nourished and well developed General Appearance ED: well developed HEENT HEENT Narrative: Patient has a superficial abrasion with soft tissue swelling along the left temporal portion of the scalp concerning for potential fall. No signs of depressed or basilar skull fracture Eyes PERRL and EOMs intact bilaterally Neck supple Neck Narrative: No bony deformity or step-off of the cervical spine Chest Wall palpation of chest normal Chest Narrative: No bony deformity or crepitance Resp normal respiratory effort and clear to auscultation bilaterally Resp Narrative: Breath sounds are diminished throughout but overall clear to auscultation without signs of distress Cardio regular rate and regular rhythm GI normal to inspection, nondistended, normoactive bowel sounds, non-tender, non-distended and no masses Auscultation: normoactive bowel sounds Palpation: soft Back/Spine Back/Spine Narrative: No bony deformity or step-off of the thoracic or lumbar spine Extremity Extremity Narrative: Patient has soft tissue swelling with ecchymosis to the anterior aspect of the right knee Patient has limited range of motion secondary to pain of the right knee but is still able to straight leg raise the right leg off the bed There is no shortening or external rotation of either lower extremity Patient does admit to pain on palpation of the left hip near the greater trochanter but there is no pain over top the pubic rami Patient will lift both upper extremities without difficulty Neuro CN's II-XII intact bilaterally Neuro Narrative: Patient is at her baseline mental status without focal neurologic deficit Sensorium / Orientation: alert Psych Psych Narrative: Patient is at her baseline mental status Skin Skin Narrative: Superficial abrasion to the left side of the scalp as well as the swelling and ecchymosis to the right knee as documented above MDM MDM MDM Narrative Medical decision making narrative: Patient presented to the ER slightly hypertensive but has a past medical history of this and otherwise with stable vitals. She did not remember falling but has Alzheimer disease and is typically alert and oriented to person only. At this time she is at her baseline mental status with stable vitals and therefore do not feel need for laboratory studies. Based on the patient's physical exam concerning for fall CTs of the head and cervical spine were obtained as well as the hip/pelvis and right knee. Differential diagnosis is for skull fracture versus subdural or epidural hematoma versus compression fracture of the cervical spine. There is also concern for pubic rami versus femoral neck fracture versus patellar or tibial plateau fracture. The x-ray of the right knee questioned a fracture and recommended CT scan so this was obtained. This revealed findings consistent with hemarthrosis/suprapatellar effusion which does correlate with her physical exam and fall. But there was no acute fracture noted which also correlates with the fact she has ability to straight leg raise. I did discuss the case with orthopedics Dr. Villalba. He recommends just an Marvel wrap at this time as the CT scan does not reveal an acute fracture and her physical exam does not indicate any type of missed fracture or ligamentous or patellar injury. Therefore this was placed and the patient is otherwise safe to return to the custodial Radiography Diagnostic Testing: Clinical Impression(s) from Imaging Studies Brain CT 07/25/23 04:58 IMPRESSION: No acute intracranial abnormality. Stable moderate chronic changes. Electronically Signed: Gabrielle Gallegos MD at 6:20 EST , Cervical Spine CT 07/25/23 04:58 IMPRESSION: No acute posttraumatic abnormality. Multilevel degenerative changes. Electronically Signed: Gabrielle Gallegos MD at 6:35 EST , Knee X-Ray 07/25/23 04:58 IMPRESSION: 1. Small suprapatellar joint effusion. 2. Multi compartmental degenerative changes. 3. Mild double bone density at the anterior-medial femoral condyle on the sunrise patellar view, not confirmed on other views. Consider CT if there is strong clinical suspicion of acute fracture, especially anterior-medial pain. Electronically Signed: Gabrielle Gallegos MD at 6:40 EST Reading Location ID and State: [facility] / [place] Tel , Service support , Hip/Pelvis X-Ray 07/25/23 05:47 IMPRESSION: No acute pelvic or left hip fracture demonstrated. Electronically Signed: Gabrielle Gallegos MD at 6:45 EST Reading Location ID and State: [place] / [place] Tel , Service support , Lower Extremity CT 07/25/23 06:44 IMPRESSION: 1. Small amount of presumed hemarthrosis or other complex mildly dense fluid in the suprapatellar bursa. No lipohemarthrosis or convincing acute fracture. 2. Irregular posterior-medial tibial plateau corner is not typical of acute fracture. Demineralization and degenerative changes. Electronically Signed: Gabrielle Gallegos MD at 8:18 EST Reading [facility] [place] Tel , Service support , Left hip x-ray with 1 view pelvis as interpreted by the emergency medicine physician reveals no acute fracture or dislocation Right knee x-ray as interpreted by the emergency medicine physician questions potential fracture off the medial aspect of the patella with small joint effusion Discharge Plan Triage Chief Complaint: Fall Other Complaint: Neuro S/Sx ED Provider: Jos Rush Dx/Rx/DC Orders Clinical Impression: Accidental fall, Hypertension, Type 2 diabetes mellitus, Alzheimer disease, Closed head injury, Suprapatellar effusion of knee Instructions: ED Head Injury (Adult), ED Knee Effusion Prescriptions: No Action metformin 500 MG tablet 500 mg PO DAILY propranolol 20 MG tablet 20 mg PO DAILY levothyroxine 25 MCG tablet 25 mcg PO DAILY atorvastatin 10 mg tablet 10 mg PO QHS cholecalciferol (vitamin D3) 1,250 mcg (50,000 unit) Tablet 1,250 mcg PO WE raloxifene 60 mg Tablet 60 mg PO DAILY bupropion HCl 150 mg tablet extended release 24 hr 150 mg PO DAILY Ensure Plus High Protein 0.08 gram-1.5 kcal/mL liquid 120 ml PO 4X/DAY donepezil 10 mg Tablet 10 mg PO QHS Qty: 0 0RF acetaminophen 500 mg Tablet 1,000 mg PO Q6H PRN PRN (Reason: Pain Score 1-10) Qty: 0 0RF mirtazapine 15 mg Tablet 7.5 mg PO QHS Qty: 0 0RF citalopram [Celexa] 10 mg tablet 10 mg PO DAILY Primary Care Provider: Pete Payne Referrals: Pete Payne MD [Primary Care Provider] - Disposition Disposition: Home, Self Care
[2023-07-25] MEDS: NUTRITIONAL SUPPLEMENT 120 ML PO (12:32)
--- NOTE | 2023-07-25 12:34 | NURSING ---
07/25/23@ 1230- PT ATE A BOWL OF PEACHES AND DRANK ENTIRE GLUCERNA.
--- NOTE | 2023-07-25 13:05 | NURSING ---
07/25/23@1240 [place] NURSE FROM [facility] CALLED FOR REPORT. REPORT GIVEN PRIOR TO DC. AWAITING TRANSPORT FOR DC BACK TO [facility]. ALL QUESTIONS ANSWERED.
== END 2023-07-25 13:53 | disposition home or self-care (01) ==
PROVIDERS: Emergency Provider Emergency Medicine; PCP Internal Medicine; Referring Provider Emergency Medicine; Visit Provider Emergency Medicine
DX: S09.90XA Unspecified injury of head, initial encounter (principal); G30.9 Alzheimer's disease, unspecified; E11.22 Type 2 diabetes mellitus with diabetic chronic kidney disease; S00.01XA Abrasion of scalp, initial encounter; S80.211A Abrasion, right knee, initial encounter; M25.552 Pain in left hip; I12.9 Hypertensive chronic kidney disease with stage 1 through stage 4 chronic kidney disease, or unspecified chronic kidney disease; M25.461 Effusion, right knee; E78.5 Hyperlipidemia, unspecified; E03.9 Hypothyroidism, unspecified; N18.9 Chronic kidney disease, unspecified; Z79.84 Long term (current) use of oral hypoglycemic drugs; Z79.890 Hormone replacement therapy; Z79.899 Other long term (current) drug therapy; M25.562 Pain in left knee
CPT/HCPCS: 70450; 72125; 73502; 73564; 73700; 99283

== ENCOUNTER → 2023-08-25 | Outpatient (REF) | payer MEDICARE, MEDICAID, SELFPAY ==
[2023-08-25 09:57] LABS: Absolute Lymphocyte Count 2.56 X10^3/uL (0.83-4.51); Absolute Neutrophil Count 5.5 X10^3/uL (2.0-7.7); Basophil# 0.09 X10^3/uL; Eosinophil# 0.31 X10^3/uL; Eosinophils% 3.4 % (0-5); Hematocrit 34.5 % (37-47); Hemoglobin 11.1 g/dL (12.0-15.0); Lymphocyte # 2.56 X10^3/ul (0.83-4.51); Lymphocyte % 28.1 % (19-41); Mean Corp Hgb Conc 32.2 g/dL (32-36); Mean Corpuscular Hgb 30.1 pg (27.0-32.0); Mean Corpuscular Volume 93.5 fL (81-99); Mean Platelet Vol. 10.2 fl (6.2-12.0); Monocyte# 0.63 X10^3/uL; Monocyte% 6.9 % (0-10); NRBC Flagged by Analyzer 0 % (0-5); Neutrophil # 5.49 X10^3/uL (2.7-7.7); Neutrophil % 60.3 % (47-70); Platelet Count 373 K/mm3 (150-450); RBC Distribution Width CV 12.9 % (11.6-14.6); RBC Distribution Width SD 44.3 fl (35.1-43.9); Red Blood Count 3.69 M/mm3 (4.2-5.4); White Blood Count 9.1 K/mm3 (4.4-11.0)
[2023-08-25 10:09] LABS: ALB/GLOB Ratio 0.8 RATIO (0.9-2.4); AST(SGOT) 13 U/L (15-37); Alanine Aminotransfer ALT/SGPT 14 U/L (13-56); Alkaline Phosphatase 62 U/L (45-117); Anion Gap 8 (5-15); BUN 20 mg/dL (7-18); BUN/Creat Ratio 20.9 RATIO (10-20); Calcium,Total 9.4 mg/dL (8.5-10.1); Chloride 107 mmol/L (98-107); Creatinine, Serum 0.96 mg/dL (0.55-1.02); EST Glomerular Filtration Rate 59 mL/min (>60); Est Glom Filt Rate - Afr Amer 71 mL/min (>60); Globulin 3.8 g/dL (2.2-4.2); Glucose 143 mg/dL (74-106); Potassium 4.1 mmol/L (3.5-5.1); Protein, Total 6.8 g/dL (6.4-8.2); Sodium Level 140 mmol/L (136-145)
[2023-08-25 12:29] LABS: Hemoglobin A1c 6.9 % (3.8-5.6)
== END ==
LOC: OLS.WHLCAR 05:00
PROVIDERS: PCP Internal Medicine; Visit Provider Internal Medicine
DX: I12.9 Hypertensive chronic kidney disease with stage 1 through stage 4 chronic kidney disease, or unspecified chronic kidney disease (principal); E11.22 Type 2 diabetes mellitus with diabetic chronic kidney disease; N18.9 Chronic kidney disease, unspecified
CPT/HCPCS: 36415; 80053; 83036; 85025

== ENCOUNTER → 2023-11-10 | Outpatient (REF) | payer MEDICARE, MEDICAID, SELFPAY ==
[2023-11-10 08:38] LABS: Absolute Lymphocyte Count 2.44 X10^3/uL (0.83-4.51); Absolute Neutrophil Count 5.7 X10^3/uL (2.0-7.7); Basophil# 0.04 X10^3/uL; Basophil% 0.4 % (0-1); Eosinophil# 0.21 X10^3/uL; Eosinophils% 2.3 % (0-5); Hematocrit 32.1 % (37-47); Hemoglobin 10.5 g/dL (12.0-15.0); Lymphocyte # 2.44 X10^3/ul (0.83-4.51); Lymphocyte % 26.7 % (19-41); Mean Corp Hgb Conc 32.7 g/dL (32-36); Mean Corpuscular Hgb 30.9 pg (27.0-32.0); Mean Corpuscular Volume 94.4 fL (81-99); Mean Platelet Vol. 10.1 fl (6.2-12.0); Monocyte# 0.72 X10^3/uL; Monocyte% 7.9 % (0-10); NRBC Flagged by Analyzer 0 % (0-5); Neutrophil % 62.3 % (47-70); Platelet Count 378 K/mm3 (150-450); RBC Distribution Width CV 13.2 % (11.6-14.6); RBC Distribution Width SD 46.3 fl (35.1-43.9); White Blood Count 9.2 K/mm3 (4.4-11.0)
[2023-11-10 08:40] LABS: Anion Gap 6 (5-15); BUN 21 mg/dL (7-18); BUN/Creat Ratio 20.2 RATIO (10-20); Calcium,Total 8.7 mg/dL (8.5-10.1); Chloride 107 mmol/L (98-107); Creatinine, Serum 1.04 mg/dL (0.55-1.02); EST Glomerular Filtration Rate 53 mL/min (>60); Est Glom Filt Rate - Afr Amer 65 mL/min (>60); Glucose 147 mg/dL (74-106); Potassium 4.4 mmol/L (3.5-5.1); Sodium Level 137 mmol/L (136-145)
== END ==
LOC: OLS.WHLCAR 05:00
PROVIDERS: PCP Internal Medicine; Visit Provider Internal Medicine
DX: I12.9 Hypertensive chronic kidney disease with stage 1 through stage 4 chronic kidney disease, or unspecified chronic kidney disease (principal); N18.9 Chronic kidney disease, unspecified; R19.7 Diarrhea, unspecified
CPT/HCPCS: 36415; 80048; 85025

== ENCOUNTER → 2023-11-24 | Outpatient (REF) | payer MEDICARE, MEDICAID, SELFPAY ==
[2023-11-24 12:39] LABS: Hemoglobin A1c 7.1 % (3.8-5.6)
== END ==
LOC: OLS.WHLCAR 05:00
PROVIDERS: PCP Internal Medicine; Visit Provider Internal Medicine
DX: E11.22 Type 2 diabetes mellitus with diabetic chronic kidney disease (principal); N18.9 Chronic kidney disease, unspecified
CPT/HCPCS: 36415; 83036

== ENCOUNTER → 2023-12-09 | Outpatient (REF) | payer MEDICARE, MEDICAID, SELFPAY ==
[2023-12-09 06:52] LABS: Thyroid Stim Hormone (TSH) 8.41 uIU/mL (0.358-3.74)
== END ==
LOC: OLS.WHLCAR 04:00
PROVIDERS: PCP Internal Medicine; Referring Provider Internal Medicine; Visit Provider Internal Medicine
DX: E03.9 Hypothyroidism, unspecified (principal); I12.9 Hypertensive chronic kidney disease with stage 1 through stage 4 chronic kidney disease, or unspecified chronic kidney disease; N18.9 Chronic kidney disease, unspecified
CPT/HCPCS: 36415; 84443

== ENCOUNTER → 2024-01-08 | Outpatient (REF) | payer MEDICARE, MEDICAID, SELFPAY | LOC: OLS.WHLCAR 11:30 | PROVIDERS: PCP Internal Medicine; Referring Provider Nurse Practitioner Adult Health; Visit Provider Nurse Practitioner Adult Health | DX: R19.7 Diarrhea, unspecified (principal) | CPT/HCPCS: 87493 ==

== ENCOUNTER → 2024-01-25 | Outpatient (REF) | payer MEDICARE, MEDICAID, SELFPAY ==
[2024-01-25 10:31] LABS: Thyroid Stim Hormone (TSH) 2.73 uIU/mL (0.358-3.74)
== END ==
LOC: OLS.WHLCAR 04:00
PROVIDERS: PCP Internal Medicine; Referring Provider Internal Medicine; Visit Provider Internal Medicine
DX: E03.9 Hypothyroidism, unspecified (principal)
CPT/HCPCS: 36415; 84443

== ENCOUNTER → 2024-02-23 | Outpatient (REF) | payer MEDICARE, MEDICAID, SELFPAY ==
[2024-02-23 10:49] LABS: Absolute Lymphocyte Count 2.65 X10^3/uL (0.83-4.51); Absolute Neutrophil Count 6.9 X10^3/uL (2.0-7.7); Basophil# 0.11 X10^3/uL; Eosinophil# 0.35 X10^3/uL; Eosinophils% 3.2 % (0-5); Hematocrit 35.8 % (37-47); Hemoglobin 11.3 g/dL (12.0-15.0); Lymphocyte # 2.65 X10^3/ul (0.83-4.51); Lymphocyte % 24.6 % (19-41); Mean Corp Hgb Conc 31.6 g/dL (32-36); Mean Corpuscular Hgb 29.9 pg (27.0-32.0); Mean Corpuscular Volume 94.7 fL (81-99); Monocyte# 0.73 X10^3/uL; Monocyte% 6.8 % (0-10); NRBC Flagged by Analyzer 0 % (0-5); Neutrophil % 63.9 % (47-70); Platelet Count 457 K/mm3 (150-450); RBC Distribution Width CV 13.1 % (11.6-14.6); Red Blood Count 3.78 M/mm3 (4.2-5.4); White Blood Count 10.8 K/mm3 (4.4-11.0)
[2024-02-23 11:08] LABS: Hemoglobin A1c 7.2 % (3.8-5.6)
[2024-02-23 11:09] LABS: ALB/GLOB Ratio 0.8 RATIO (0.9-2.4); AST(SGOT) 20 U/L (15-37); Alanine Aminotransfer ALT/SGPT 21 U/L (13-56); Alkaline Phosphatase 71 U/L (45-117); Anion Gap 7 (5-15); BUN 21 mg/dL (7-18); BUN/Creat Ratio 21.2 RATIO (10-20); Calcium,Total 9.2 mg/dL (8.5-10.1); Chloride 103 mmol/L (98-107); Cholesterol 151 mg/dL (200); Creatinine, Serum 0.99 mg/dL (0.55-1.02); EST Glomerular Filtration Rate 56 mL/min (>60); Est Glom Filt Rate - Afr Amer 68 mL/min (>60); Globulin 3.9 g/dL (2.2-4.2); Glucose 142 mg/dL (74-106); High Density Lipoprotein 40 mg/dL; Protein, Total 6.9 g/dL (6.4-8.2); Sodium Level 139 mmol/L (136-145); Triglycerides 278 mg/dL; Very Low Density Lipoprotein 56 mg/dL (5-40)
== END ==
LOC: OLS.WHLCAR 05:00
PROVIDERS: PCP Internal Medicine; Visit Provider Internal Medicine
DX: I12.9 Hypertensive chronic kidney disease with stage 1 through stage 4 chronic kidney disease, or unspecified chronic kidney disease (principal); N18.9 Chronic kidney disease, unspecified; E11.22 Type 2 diabetes mellitus with diabetic chronic kidney disease; G30.9 Alzheimer's disease, unspecified; E78.5 Hyperlipidemia, unspecified; E55.9 Vitamin D deficiency, unspecified
CPT/HCPCS: 36415; 80053; 80061; 82306; 83036; 85025

== ENCOUNTER → 2024-03-07 | Outpatient (REF) | payer MEDICARE, MEDICAID, SELFPAY ==
[2024-03-07 08:11] LABS: Anion Gap 6 (5-15); BUN 22 mg/dL (7-18); Calcium,Total 8.9 mg/dL (8.5-10.1); Chloride 105 mmol/L (98-107); Creatinine, Serum 1.05 mg/dL (0.55-1.02); EST Glomerular Filtration Rate 53 mL/min (>60); Est Glom Filt Rate - Afr Amer 64 mL/min (>60); Glucose 164 mg/dL (74-106); Sodium Level 139 mmol/L (136-145)
== END ==
LOC: OLS.WHLCAR 04:00
PROVIDERS: PCP Internal Medicine; Visit Provider Internal Medicine
DX: I12.9 Hypertensive chronic kidney disease with stage 1 through stage 4 chronic kidney disease, or unspecified chronic kidney disease (principal); N18.9 Chronic kidney disease, unspecified; G30.9 Alzheimer's disease, unspecified
CPT/HCPCS: 36415; 80048; 84443

== ENCOUNTER → 2024-04-18 | Outpatient (REF) | payer MEDICARE, MEDICAID, SELFPAY | LOC: OLS.WHLCAR 05:00 | PROVIDERS: PCP Internal Medicine; Visit Provider Internal Medicine | DX: E03.9 Hypothyroidism, unspecified (principal) | CPT/HCPCS: 36415; 84443 ==

== ENCOUNTER → 2024-05-24 | Outpatient (REF) | payer MEDICARE, MEDICAID, SELFPAY ==
[2024-05-24 11:17] LABS: Hemoglobin A1c 7.6 % (3.8-5.6)
== END ==
LOC: OLS.WHLCAR 05:00
PROVIDERS: PCP Internal Medicine; Visit Provider Internal Medicine
DX: E11.22 Type 2 diabetes mellitus with diabetic chronic kidney disease (principal); I12.9 Hypertensive chronic kidney disease with stage 1 through stage 4 chronic kidney disease, or unspecified chronic kidney disease; N18.9 Chronic kidney disease, unspecified
CPT/HCPCS: 36415; 83036

== ENCOUNTER → 2024-05-30 | Outpatient (REF) | payer MEDICARE, MEDICAID, SELFPAY | LOC: OLS.WHLCAR 04:00 | PROVIDERS: PCP Internal Medicine; Referring Provider Internal Medicine; Visit Provider Internal Medicine | DX: E03.9 Hypothyroidism, unspecified (principal) | CPT/HCPCS: 36415; 84443 ==

== ENCOUNTER → 2024-07-11 | Outpatient (REF) | payer MEDICARE, MEDICAID, SELFPAY | LOC: OLS.WHLCAR 05:00 | PROVIDERS: PCP Internal Medicine; Visit Provider Internal Medicine | DX: E03.9 Hypothyroidism, unspecified (principal) | CPT/HCPCS: 36415; 84443 ==

== ENCOUNTER → 2024-08-23 05:00 | Outpatient (REF) | payer MEDICARE, MEDICAID, SELFPAY ==
[2024-08-23 08:37] LABS: Absolute Lymphocyte Count 2.44 X10^3/uL (0.83-4.51); Absolute Neutrophil Count 5.4 X10^3/uL (2.0-7.7); Basophil# 0.05 X10^3/uL; Basophil% 0.6 % (0-1); Eosinophils% 3.4 % (0-5); Hematocrit 34.2 % (37-47); Lymphocyte # 2.44 X10^3/ul (0.83-4.51); Lymphocyte % 27.5 % (19-41); Mean Corp Hgb Conc 32.2 g/dL (32-36); Mean Corpuscular Hgb 30.1 pg (27.0-32.0); Mean Corpuscular Volume 93.4 fL (81-99); Mean Platelet Vol. 10.2 fl (6.2-12.0); Monocyte# 0.64 X10^3/uL; Monocyte% 7.2 % (0-10); NRBC Flagged by Analyzer 0 % (0-5); Neutrophil # 5.38 X10^3/uL (2.7-7.7); Neutrophil % 60.7 % (47-70); Platelet Count 352 K/mm3 (150-450); RBC Distribution Width CV 13.8 % (11.6-14.6); RBC Distribution Width SD 47.5 fl (35.1-43.9); Red Blood Count 3.66 M/mm3 (4.2-5.4); White Blood Count 8.9 K/mm3 (4.4-11.0)
[2024-08-23 09:24] LABS: ALB/GLOB Ratio 0.7 RATIO (0.9-2.4); AST(SGOT) 12 U/L (15-37); Alanine Aminotransfer ALT/SGPT 12 U/L (13-56); Albumin, Serum 2.6 g/dL (3.2-5.0); Alkaline Phosphatase 54 U/L (45-117); Anion Gap 8 (5-15); BUN 19 mg/dL (7-18); BUN/Creat Ratio 19.5 RATIO (10-20); Calcium,Total 8.5 mg/dL (8.5-10.1); Chloride 108 mmol/L (98-107); Creatinine, Serum 0.98 mg/dL (0.55-1.02); EST Glomerular Filtration Rate 57 mL/min (>60); Est Glom Filt Rate - Afr Amer 69 mL/min (>60); Globulin 3.5 g/dL (2.2-4.2); Glucose 122 mg/dL (74-106); Protein, Total 6.1 g/dL (6.4-8.2); Sodium Level 141 mmol/L (136-145)
[2024-08-23 09:59] LABS: Hemoglobin A1c 6.5 % (3.8-5.6)
== END ==
LOC: OLS.WHLCAR 05:00
PROVIDERS: PCP Internal Medicine; Visit Provider Internal Medicine
DX: E11.22 Type 2 diabetes mellitus with diabetic chronic kidney disease (principal); I12.9 Hypertensive chronic kidney disease with stage 1 through stage 4 chronic kidney disease, or unspecified chronic kidney disease; G30.9 Alzheimer's disease, unspecified; F02.A3 Dementia in other diseases classified elsewhere, mild, with mood disturbance
CPT/HCPCS: 36415; 80053; 83036; 84443; 85025

== ENCOUNTER → 2024-10-03 | Outpatient (REF) | payer MEDICARE, MEDICAID, SELFPAY | LOC: OLS.WHLCAR 05:00 | PROVIDERS: PCP Internal Medicine; Visit Provider Internal Medicine | DX: E03.9 Hypothyroidism, unspecified (principal); I12.9 Hypertensive chronic kidney disease with stage 1 through stage 4 chronic kidney disease, or unspecified chronic kidney disease; N18.9 Chronic kidney disease, unspecified | CPT/HCPCS: 36415; 84439; 84443 ==

== ENCOUNTER → 2024-10-06 | Outpatient (REF) | payer MEDICARE, MEDICAID, SELFPAY ==
[2024-10-06 07:47] LABS: Absolute Lymphocyte Count 2.51 X10^3/uL (0.83-4.51); Absolute Neutrophil Count 4.8 X10^3/uL (2.0-7.7); Basophil# 0.08 X10^3/uL; Eosinophil# 0.26 X10^3/uL; Eosinophils% 3.1 % (0-5); Hematocrit 33.2 % (37-47); Hemoglobin 11.2 g/dL (12.0-15.0); Lymphocyte # 2.51 X10^3/ul (0.83-4.51); Lymphocyte % 30.2 % (19-41); Mean Corp Hgb Conc 33.7 g/dL (32-36); Mean Corpuscular Hgb 30.9 pg (27.0-32.0); Mean Corpuscular Volume 91.5 fL (81-99); Mean Platelet Vol. 9.8 fl (6.2-12.0); Monocyte# 0.66 X10^3/uL; Monocyte% 7.9 % (0-10); NRBC Flagged by Analyzer 0 % (0-5); Neutrophil # 4.78 X10^3/uL (2.7-7.7); Neutrophil % 57.4 % (47-70); Platelet Count 348 K/mm3 (150-450); RBC Distribution Width CV 13.3 % (11.6-14.6); RBC Distribution Width SD 44.4 fl (35.1-43.9); Red Blood Count 3.63 M/mm3 (4.2-5.4); White Blood Count 8.3 K/mm3 (4.4-11.0)
== END ==
LOC: OLS.WHLCAR 05:00
PROVIDERS: PCP Internal Medicine; Visit Provider Internal Medicine
DX: K64.9 Unspecified hemorrhoids (principal); I12.9 Hypertensive chronic kidney disease with stage 1 through stage 4 chronic kidney disease, or unspecified chronic kidney disease; N18.9 Chronic kidney disease, unspecified
CPT/HCPCS: 36415; 85025

== ENCOUNTER → 2024-10-10 | Outpatient (REF) | payer MEDICARE, MEDICAID, SELFPAY ==
[2024-10-10 08:59] LABS: Absolute Lymphocyte Count 2.36 X10^3/uL (0.83-4.51); Absolute Neutrophil Count 5.5 X10^3/uL (2.0-7.7); Basophil# 0.08 X10^3/uL; Basophil% 0.9 % (0-1); Eosinophil# 0.25 X10^3/uL; Eosinophils% 2.8 % (0-5); Hemoglobin 11.3 g/dL (12.0-15.0); Lymphocyte # 2.36 X10^3/ul (0.83-4.51); Lymphocyte % 26.6 % (19-41); Mean Corp Hgb Conc 32.3 g/dL (32-36); Mean Corpuscular Hgb 29.9 pg (27.0-32.0); Mean Corpuscular Volume 92.6 fL (81-99); Mean Platelet Vol. 10.1 fl (6.2-12.0); Monocyte# 0.59 X10^3/uL; Monocyte% 6.7 % (0-10); NRBC Flagged by Analyzer 0 % (0-5); Neutrophil # 5.54 X10^3/uL (2.7-7.7); Neutrophil % 62.5 % (47-70); Platelet Count 361 K/mm3 (150-450); RBC Distribution Width CV 13.2 % (11.6-14.6); Red Blood Count 3.78 M/mm3 (4.2-5.4); White Blood Count 8.9 K/mm3 (4.4-11.0)
== END ==
LOC: OLS.WHLCAR 05:00
PROVIDERS: PCP Internal Medicine; Visit Provider Internal Medicine
DX: I12.9 Hypertensive chronic kidney disease with stage 1 through stage 4 chronic kidney disease, or unspecified chronic kidney disease (principal); N18.9 Chronic kidney disease, unspecified; D63.1 Anemia in chronic kidney disease
CPT/HCPCS: 36415; 85025

== ENCOUNTER → 2024-10-17 | Outpatient (REF) | payer MEDICARE, MEDICAID, SELFPAY ==
[2024-10-17 09:17] LABS: Absolute Lymphocyte Count 3.03 X10^3/uL (0.83-4.51); Absolute Neutrophil Count 5.3 X10^3/uL (2.0-7.7); Basophil# 0.08 X10^3/uL; Basophil% 0.8 % (0-1); Eosinophil# 0.34 X10^3/uL; Eosinophils% 3.6 % (0-5); Hematocrit 34.1 % (37-47); Hemoglobin 11.1 g/dL (12.0-15.0); Lymphocyte # 3.03 X10^3/ul (0.83-4.51); Lymphocyte % 31.8 % (19-41); Mean Corp Hgb Conc 32.6 g/dL (32-36); Mean Corpuscular Hgb 30.1 pg (27.0-32.0); Mean Corpuscular Volume 92.4 fL (81-99); Monocyte# 0.71 X10^3/uL; Monocyte% 7.4 % (0-10); NRBC Flagged by Analyzer 0 % (0-5); Neutrophil # 5.34 X10^3/uL (2.7-7.7); Platelet Count 346 K/mm3 (150-450); RBC Distribution Width CV 13.4 % (11.6-14.6); RBC Distribution Width SD 45.9 fl (35.1-43.9); Red Blood Count 3.69 M/mm3 (4.2-5.4); White Blood Count 9.5 K/mm3 (4.4-11.0)
== END ==
LOC: OLS.WHLCAR 05:00
PROVIDERS: PCP Internal Medicine; Visit Provider Internal Medicine
DX: I12.9 Hypertensive chronic kidney disease with stage 1 through stage 4 chronic kidney disease, or unspecified chronic kidney disease (principal); N18.9 Chronic kidney disease, unspecified; D63.1 Anemia in chronic kidney disease; G30.9 Alzheimer's disease, unspecified
CPT/HCPCS: 36415; 85025

== ENCOUNTER 2024-11-03 21:06 | Emergency (ER) | payer MEDICARE, MEDICAID, SELFPAY ==
[2024-11-03 21:08] VITALS: BP 136/61; PULSE 80; RESP 18; TEMP 36.5; O2SAT 95; BMI 29.4
--- NOTE | 2024-11-03 21:48 | RAD_ITS ---
PROCEDURE: SHOULDER MIN 2 VIEWS 11/03/2024 REASON FOR EXAM: INJURY TECHNIQUE: 3 view(s) of the right shoulder COMPARISON: None FINDINGS: Bones: No acute fracture. Joints: Normal alignment of the acromioclavicular and glenohumeral joints. Soft tissues: Soft tissues are unremarkable. Other: RAD/Shoulder min 2 Views IMPRESSION: NO ACUTE FRACTURE OR DISLOCATION. Reading Location: [facility]
--- NOTE | 2024-11-03 21:49 | ED.VIS.FALL ---
HPI HPI - Fall History of Present Illness Chief Complaint: Fall Informant: patient and family Narrative Narrative: Patient brought in by EMS from [facility] witnessed fall head injury. Patient history of dementia ambulatory per son. Mostly wheelchair, can weight-bear transfer. From paperwork gaited bowel with walking. Reports she did walk with a walker minimally a week ago. Reported getting off the commode she turned down hitting her head on a radiator. No anticoagulants. She is DNR CC as of 2022 from paperwork. She has baseline per son. [facility] Medical History Dry eye syndrome of bilateral lacrimal glands Constipation Hyperlipidemia Hypokalemia CKD (chronic kidney disease) Weakness Depression, unspecified Alzheimer's disease, unspecified Hypertensive chronic kidney disease with stage 1 through stage 4 chronic kidney disease, or unspecified chronic kidney disease Type 2 diabetes mellitus with unspecified complications Hypothyroidism, unspecified GERD (gastroesophageal reflux disease) Home Medications ?Medication ?Instructions ?Recorded ?Last Taken ?Type metformin 500 mg tablet 500 mg PO DAILY DIABETES 11/10/13 07/24/23 History propranolol 20 mg tablet 20 mg PO DAILY tremors 11/10/13 07/24/23 History levothyroxine 25 mcg tablet 25 mcg PO DAILY THYROID 02/08/17 07/24/23 History atorvastatin 10 mg tablet 10 mg PO QHS CHOLESTEROL 11/11/22 07/24/23 History cholecalciferol (vitamin D3) 1,250 1,250 mcg PO WE SUPPLEMENT 11/11/22 07/24/23 History mcg (50,000 unit) tablet raloxifene 60 mg tablet 60 mg PO DAILY Check with primary 11/12/22 07/24/23 History doctor bupropion HCl 150 mg 24 hr tablet, 150 mg PO DAILY mood 11/13/22 07/24/23 History extended release food supplemt, lactose-reduced 120 ml PO 4X/DAY ensure 11/13/22 07/24/23 History 0.08 gram-1.5 kcal/mL oral liquid (Ensure Plus High Protein) acetaminophen 500 mg tablet 1,000 mg (2 x 500 mg) PO Q6H PRN 11/26/22 Unknown Rx PRN Pain Score 1-10 #0 tabs donepezil 10 mg tablet 10 mg PO QHS #0 tabs 11/26/22 07/24/23 Rx mirtazapine 15 mg tablet 7.5 mg (1/2 x 15 mg) PO QHS #0 tabs 11/26/22 07/24/23 Rx citalopram 10 mg tablet (Celexa) 10 mg PO DAILY 07/25/23 Unknown History Allergy/AdvReac Type Severity Reaction Status Date / Time Penicillins (PCN) AdvReac Diarrhea Verified 11/03/24 21:07 Family History Other Diabetes Surgical History H/O section History of bowel resection Social History housing: assisted living facility Smoking Status: Never smoker alcohol intake: never substance use type: does not use ROS ROS ED Constitutional Constitutional ED: Denies chills, fever(s) or sweats ENT ENT ED: Denies sore throat Cardiovascular Cardiovascular: Denies chest pain Respiratory/Chest Respiratory/Chest: Denies cough Gastrointestinal Gastrointestinal: Denies abdominal pain, diarrhea, nausea or vomiting Musculoskeletal Musculoskeletal: Denies back pain, extremity pain or neck pain Integumentary Reports wounds; Denies rash Neurologic Neurologic: Reports headache(s); Denies paresthesias or weakness EXAM Physical Exam Const Vital Signs: 11/03/24 21:08 11/03/24 21:16 11/03/24 23:07 Temperature 97.7 F L Temperature Source Oral Pulse Rate 80 88 Respiratory Rate 18 19 H Respiratory Effort Normal Non-Labored Respiratory Depth Normal Respiratory Pattern Normal Blood Pressure 136/61 H Blood Pressure Mean 86 Pulse Ox 95 97 Oxygen Delivery Method Room Air Room Air Room Air 11/04/24 00:21 Temperature 98.2 F Temperature Source Pulse Rate 84 Respiratory Rate 17 Respiratory Effort Respiratory Depth Respiratory Pattern Blood Pressure 143/60 H Blood Pressure Mean 87 Pulse Ox 97 Oxygen Delivery Method Positive well nourished and well developed Constitutional Narrative: GCS 15. General Appearance ED: well developed and NAD HEENT Reports moist mucous membranes HEENT Narrative: Laceration above right brow 4 cm controlled with pressure. normocephalic and atraumatic Eyes General Eye ED: Yes normal appearance of both eyes Neck full ROM Chest Wall inspection of chest normal and palpation of chest normal Chest: Negative for tenderness Resp normal respiratory effort and normal air movement Effort and Inspection: symmetric chest movement; Negative for respiratory distress Cardio regular rate, regular rhythm and no murmurs Peripheral Pulses: pulses 2+ throughout GI normal to inspection, nondistended, normoactive bowel sounds and non-tender Palpation: Negative for guarding or rebound tenderness present Extremity normal to inspection Extremity Narrative: Mild tenderness right proximal shoulder no deformities. No elbow tenderness. Soft compartments. No pain left upper extremity. Negative logroll of the lower extremities bilaterally. General Extremety ED: Yes tenderness; Negative for edema General Extremity: Negative for edema Neuro no sensory deficits noted Neuro Narrative: Alert to person and place. Told me the year is 1950. Sensorium / Orientation: awake and alert Skin no rashes or lesions noted and no wounds MDM MDM MDM Narrative Medical decision making narrative: Interventions / MDM: Differential diagnosis: Facial laceration, closed head injury, DNR CC, shoulder contusion Diagnosis considered but do not suspect: Fracture however x-ray and CT negative. Intracranial hemorrhage however CT negative. My EKG interpretation: N/A Imaging independently reviewed and interpreted by myself: CT brain/cervical spine/facial bones no intracranial hemorrhage no fractures also read by radiology. Right shoulder x-ray 3 views: No fracture or dislocation also read by radiology. External documents reviewed: N/A Test considered but not ordered:N/A ED course: Witnessed fall baseline dementia no anticoagulants. Head injury. Right proximal shoulder pain. Trauma scans head neck and face ordered. Right shoulder x-ray ordered. Patient declines any medications at this time. Trauma scans all negative. Preparation for laceration repair. Procedure note: Normal sterile conditions. Total of 2 cc 1% lidocaine used for local analgesia. After dressing removed there is full-thickness laceration noted. No gross foreign bodies noted. Cleanse with sterile saline. A total of 7, 6-0 nylon simple interrupted sutures were placed with good approximation of the wound. Bacitracin placed over the wound. Patient tolerated the procedure well. Son updated on findings. She will be transported back to facility. Wound care at facility with sutures to removed in 5 to 7 days. All questions were answered. Re-evaluation: stable Disposition discussed with patient/family/significant other: Patient and son Case discussed with consulting clinician: N/A This note was generated with FlashSoftation software. It may contain incorrect words, spelling, and punctuation that were not noted in checking the note before signing. Radiography Diagnostic Testing: Clinical Impression(s) from Imaging Studies Shoulder X-Ray 11/03/24 21:48 IMPRESSION: NO ACUTE FRACTURE OR DISLOCATION. [facility] 11/03/24 22:10 IMPRESSION: CHRONIC CHANGES. NO ACUTE FINDINGS. Reading Location: [facility] Cervical Spine CT 11/03/24 22:10 IMPRESSION: NO ACUTE CERVICAL FRACTURE. DEGENERATIVE CHANGES. No acute fracture or subluxation. Reading Location: [facility] Facial/Sinus 11/03/24 22:10 IMPRESSION: Small soft tissue laceration along the right supraorbital region. No acute fracture. Reading Location: [facility] Discharge Plan Triage Chief Complaint: Fall Other Complaint: Laceration ED Provider: Alirio Edward Dx/Rx/DC Orders Clinical Impression: Face lacerations, CHI (closed head injury), Contusion of right shoulder, Dementia Instructions: ED Head Injury (Adult), ED FACIAL LACERATION Suture Tape Prescriptions: No Action metformin 500 MG tablet 500 mg PO DAILY propranolol 20 MG tablet 20 mg PO DAILY levothyroxine 25 MCG tablet 25 mcg PO DAILY atorvastatin 10 mg tablet 10 mg PO QHS cholecalciferol (vitamin D3) 1,250 mcg (50,000 unit) Tablet 1,250 mcg PO WE raloxifene 60 mg Tablet 60 mg PO DAILY bupropion HCl 150 mg tablet extended release 24 hr 150 mg PO DAILY Ensure Plus High Protein 0.08 gram-1.5 kcal/mL liquid 120 ml PO 4X/DAY donepezil 10 mg Tablet 10 mg PO QHS Qty: 0 0RF acetaminophen 500 mg Tablet 1,000 mg PO Q6H PRN PRN (Reason: Pain Score 1-10) Qty: 0 0RF mirtazapine 15 mg Tablet 7.5 mg PO QHS Qty: 0 0RF citalopram [Celexa] 10 mg tablet 10 mg PO DAILY Primary Care Provider: Pete Payne Referrals: Pete Payne MD [Primary Care Provider] - Activity Restrictions/Additional Instructions: CT head face and neck negative. Right shoulder x-ray negative. 7 sutures placed. Have removed in 5 to 7 days. Print Language: Kosovan Disposition Disposition: Home, Self Care
[2024-11-03] MEDS: Lidocaine 1% (20 ml mdv) 20 ML Vial INFILT (22:02)
--- NOTE | 2024-11-03 22:10 | CT_ITS ---
PROCEDURE: SINUS/FACIAL BONE REASON FOR EXAM: INJURY TECHNIQUE: CT of the facial bones without contrast. One or more dose reduction techniques were used (e.g., Automated exposure control, adjustment of the mA and/or kV according to patient size, use of iterative reconstruction technique). COMPARISON: None. FINDINGS: Bones: No acute fracture. Sinuses: Paranasal sinuses are clear. Orbits: Unremarkable. Soft Tissues: Small soft tissue laceration along the right supraorbital region. CT/Sinus/Facial Bone IMPRESSION: Small soft tissue laceration along the right supraorbital region. No acute fra cture. Reading Location: [facility]
--- NOTE | 2024-11-03 22:10 | CT_ITS ---
PROCEDURE: BRAIN/HEAD WITHOUT CONTRAST 11/03/2024 REASON FOR EXAM: HEAD INJURY TECHNIQUE: Head CT without intravenous contrast. Coronal and Sagittal reconstruction series were provided. One or more dose reduction techniques were used (e.g., Automated exposure control, adjustment of the mA and/or kV according to patient size, use of iterative reconstruction technique. RADIATION DOSE SUMMARY: CTDlvol: 45 mGy DLP: 762 mGycm COMPARISON: None FINDINGS: Brain: Extensive low density in the deep cerebral white matter most likely represents advanced chronic small vessel ischemic disease. CSF Spaces: Moderate generalized cerebral atrophy Sinuses/Mastoids: Clear at visualized levels Bones: No acute fracture. CT/Brain/Head without Contrast IMPRESSION: CHRONIC CHANGES. NO ACUTE FINDINGS. Reading Location: [facility]
--- NOTE | 2024-11-03 22:10 | CT_ITS ---
PROCEDURE: SPINE CERVICAL WITHOUT CONTRAS 11/03/2024 REASON FOR EXAM: INJURY TECHNIQUE: Cervical spine CT without contrast. Coronal and Sagittal reconstruction series were provided. One or more dose reduction techniques were used (e.g., Automated exposure control, adjustment of the mA and/or kV according to patient size, use of iterative reconstruction technique RADIATION DOSE SUMMARY: CTDlvol: 19 mGy DLP: 337 mGycm FINDINGS: Alignment: Straightening of the cervical alignment likely due to positioning. Disc: Multilevel narrowing of the intervertebral disc spaces. Extensive anterior endplates osteophyte formation. Vertebrae: The cervical vertebral body heights are preserved. No acute fracture or subluxation. Soft Tissues: Lung apical sac clear. Other: Carotid artery calcifications. CT/Spine Cervical without Contras IMPRESSION: NO ACUTE CERVICAL FRACTURE. DEGENERATIVE CHANGES. No acute fracture or sublux ation. Reading [facility]
[2024-11-03 23:07] VITALS: PULSE 88; RESP 19; O2SAT 97
[2024-11-04 00:21] VITALS: BP 143/60; PULSE 84; RESP 17; TEMP 36.8; O2SAT 97
--- NOTE | 2024-11-04 01:18 | ED.RN ---
CALLED [facility] TO GIVE REPORT. NO ANSWER AT THIS TIME.
[2024-11-04 03:00] VITALS: RESP 16
== END 2024-11-04 03:36 | disposition home or self-care (01) ==
PROVIDERS: Emergency Provider Emergency Medicine; PCP Internal Medicine; Visit Provider Emergency Medicine
DX: S01.111A Laceration without foreign body of right eyelid and periocular area, initial encounter (principal); F03.90 Unspecified dementia, unspecified severity, without behavioral disturbance, psychotic disturbance, mood disturbance, and anxiety; E11.22 Type 2 diabetes mellitus with diabetic chronic kidney disease; N18.9 Chronic kidney disease, unspecified; S40.011A Contusion of right shoulder, initial encounter; E78.5 Hyperlipidemia, unspecified; Z66 Do not resuscitate; I12.9 Hypertensive chronic kidney disease with stage 1 through stage 4 chronic kidney disease, or unspecified chronic kidney disease; K21.9 Gastro-esophageal reflux disease without esophagitis; S09.90XA Unspecified injury of head, initial encounter; W26.8XXA Contact with other sharp object(s), not elsewhere classified, initial encounter
CPT/HCPCS: 12013; 70450; 70486; 72125; 73030; 99285

== ENCOUNTER → 2024-11-14 | Outpatient (REF) | payer MEDICARE, MEDICAID, SELFPAY | LOC: OLS.WHLCAR 04:00 | PROVIDERS: PCP Internal Medicine; Referring Provider Internal Medicine; Visit Provider Internal Medicine | DX: I12.9 Hypertensive chronic kidney disease with stage 1 through stage 4 chronic kidney disease, or unspecified chronic kidney disease (principal); N18.9 Chronic kidney disease, unspecified; E03.9 Hypothyroidism, unspecified | CPT/HCPCS: 36415; 84443 ==

== ENCOUNTER → 2024-11-22 | Outpatient (REF) | payer MEDICARE, MEDICAID, SELFPAY | LOC: OLS.WHLCAR 05:00 | PROVIDERS: PCP Internal Medicine; Visit Provider Internal Medicine | DX: E11.22 Type 2 diabetes mellitus with diabetic chronic kidney disease (principal); I12.9 Hypertensive chronic kidney disease with stage 1 through stage 4 chronic kidney disease, or unspecified chronic kidney disease; N18.9 Chronic kidney disease, unspecified | CPT/HCPCS: 36415; 83036 ==

== ENCOUNTER → 2024-12-13 | Outpatient (REF) | payer MEDICARE, MEDICAID, SELFPAY ==
[2024-12-13 07:28] LABS: Absolute Lymphocyte Count 2.57 X10^3/uL (0.83-4.51); Absolute Neutrophil Count 5.1 X10^3/uL (2.0-7.7); Basophil# 0.07 X10^3/uL; Basophil% 0.8 % (0-1); Eosinophil# 0.31 X10^3/uL; Eosinophils% 3.5 % (0-5); Hemoglobin 10.6 g/dL (12.0-15.0); Lymphocyte # 2.57 X10^3/ul (0.83-4.51); Lymphocyte % 29.2 % (19-41); Mean Corp Hgb Conc 32.1 g/dL (32-36); Mean Corpuscular Hgb 30.2 pg (27.0-32.0); Mean Platelet Vol. 9.9 fl (6.2-12.0); Monocyte# 0.71 X10^3/uL; Monocyte% 8.1 % (0-10); NRBC Flagged by Analyzer 0 % (0-5); Neutrophil # 5.12 X10^3/uL (2.7-7.7); Neutrophil % 58.1 % (47-70); Platelet Count 309 K/mm3 (150-450); RBC Distribution Width CV 13.4 % (11.6-14.6); Red Blood Count 3.51 M/mm3 (4.2-5.4); White Blood Count 8.8 K/mm3 (4.4-11.0)
== END ==
LOC: OLS.WHLCAR 05:00
PROVIDERS: PCP Internal Medicine; Visit Provider Internal Medicine
DX: I12.9 Hypertensive chronic kidney disease with stage 1 through stage 4 chronic kidney disease, or unspecified chronic kidney disease (principal); N18.9 Chronic kidney disease, unspecified; D63.1 Anemia in chronic kidney disease
CPT/HCPCS: 36415; 85025

== ENCOUNTER → 2024-12-26 04:00 | Outpatient (REF) | payer MEDICARE, MEDICAID, SELFPAY ==
--- OUTSIDE RECORDS SUMMARY | 2024-12-26 04:05 | XMS RPT_ITS | CCD ---
Author Organization [facility] Care Team Providers Care Professor Of Communication Arts Name Role Phone Dr. Nancy Ewing Emergency Provider [phone] ALANNAH BENITO Primary Care Provider Unavail able Dr. Ryder Brody Admit Provider Dr. Ryder Brody Attending Provider Dr. Ryder Brody Other Provider ALANNAH BENITO Primary Care Provider Dr. Bernice Betancur Attending Provider Dr. Bernice Betancur Other Provider [facility] Doctor, Out of Primary Care Provider Silvia Mccracken MARINE MECHANIC, MARINE MECHANIC-C Poppy Attending Provider Dr. Pete Dietz Attending Provider [phone] Dr. Pete Payne Primary Care Provider [phone] Dr. Pete Payne Attending Provider [phone] Kaykay MARINE MECHANIC, MARINE MECHANIC-C Poppy Attending Provider Dr. Pete Dietz Primary Care Provider [phone] Dr. Pete Payne Attending Provider [phone] Kaykay MARINE MECHANIC, MARINE MECHANIC-C Poppy Attending Provider Dr. Pete Dietz Primary Care Provider [phone] Dr. Pete Payne Attending Provider [phone] Kaykay MARINE MECHANIC, MARINE MECHANIC-C Poppy Attending Provider Elmer SAMUELS, Dr. Freeman Primary Care Provider Kaykay MARINE MECHANIC-CPoppy Attending Provider Elmer SAMUELS, Pete Attending Provider Unavaila ble Mateo Cardoza Attending Provider Elmer SAMUELS, Dr. Freeman Primary Care Provider Elmer SAMUELS, Dr. Freeman Attending Provider Cheyanne DRISCOLL, Dr. Amezquita Emergency Provider Oleghe OLS, Efewongbe Attending Unavailabl e Oleghe, Efewongbe Primary Care Unavailable Oleghe OLS, Efewongbe Attending Unavailabl e Oleghe, Efewongbe Primary Care Unavailable Oleghe, Efewongbe Attending Unavailable Oleghe, Efewongbe Primary Care Unavailable Oleghe OLS, Efewongbe Attending Unavailabl e Oleghe, Efewongbe Primary Care Unavailable Oleghe OLS, Efewongbe Attending Unavailabl e Oleghe, Efewongbe Primary Care Unavailable Oleghe OLS, Efewongbe Attending Unavailabl e Oleghe, Efewongbe Primary Care Unavailable Oleghe, Efewongbe Primary Care Unavailable Oleghe OLS, Efewongbe Attending Unavailabl e Oleghe OLS, Efewongbe Attending Unavailabl e Oleghe, Efewongbe Primary Care Unavailable Tickton Poppy ALARCON Attending Unavailable Oleghe, Efewongbe Primary Care Unavailable Oleghe, Efewongbe Primary Care Unavailable Mateo Cardoza Attending Unavailable Oleghe, Efewongbe Primary Care Unavailable Tickton Poppy ALARCON Attending Unavailable Oleghe, Efewongbe Primary Care Unavailable Tickton Mildred ROBERTSara Referring Unavailable Tickton Poppy ROBERTS Attending Unavailable Oleghe, Efewongbe Primary Care Unavailable Alirio Edward Attending Unavailable Oleghe OLS, Efewongbe Attending Unavailabl e Oleghe, Efewongbe Primary Care Unavailable Oleghe OLS, Efewongbe Attending Unavailabl e Oleghe OLS, Efewongbe Referring Unavailabl e Oleghe, Efewongbe Primary Care Unavailable Oleghe OLS, Efewongbe Attending Unavailabl e Oleghe, Efewongbe Primary Care Unavailable Oleghe, Efewongbe Primary Care Unavailable Mateo Cardoza Attending Unavailable Oleghe, Efewongbe Primary Care Unavailable Kaykay MARINE MECHANIC, Poppy Attending Unavailable Oleghe, Efewongbe Primary Care Unavailable Mateo Cardoza Attending Unavailable Tickton MARINE MECHANIC, Poppy Attending Unavailable Oleghe, Efewongbe Primary Care Unavailable Oleghe OLS, Efewongbe Referring Unavailabl e Oleghe, Efewongbe Primary Care Unavailable Oleghe OLS, Efewongbe Attending Unavailabl e Oleghe, Efewongbe Primary Care Unavailable Oleghe OLS, Efewongbe Attending Unavailabl e Oleghe, Efewongbe Attending Unavailable Oleghe, Efewongbe Primary Care Unavailable Oleghe OLS, Efewongbe Attending Unavailabl e Oleghe OLS, Efewongbe Referring Unavailabl e Oleghe, Efewongbe Primary Care Unavailable Oleghe, Efewongbe Primary Care Unavailable Kaykay MARINE MECHANIC, Poppy Attending Unavailable Oleghe, Efewongbe Primary Care Unavailable Oleghe, Efewongbe Attending Unavailable Oleghe, Efewongbe Primary Care Unavailable Tickton MARINE MECHANIC, Poppy Attending Unavailable Oleghe, Efewongbe Primary Care Unavailable Oleghe, Efewongbe Attending Unavailable Oleghe OLS, Efewongbe Attending Unavailabl e Oleghe, Efewongbe Primary Care Unavailable Oleghe OLS, Efewongbe Attending Unavailabl e Oleghe, Efewongbe Primary Care Unavailable Allergies Allergy Classification Reported Allergen(s) Allergy Type Date of Onset Reaction(s) Facility (14 sources) Penicillins Propensity to adverse reactions 3 Diarrhea [facility] (1 source) Penicillins Drug allergy (disorder) 5 [facility] Repository Medications Current Medications Medication Drug Class(es) Dates Sig (Normalized) Sig (Original) acetaminophen 500 mg oral tablet (12 sources) Start: 11-26-2022 take 2 tablets by mouth every six hours as needed for pain Acetaminophen 500 mg Tablet Active 1000 mg PO EVERY 6 HOURS NEEDED as needed for Pain Score 1-10 0 November 26, 2022 12:00am Start: 11-26-2022 take 1000 mg by mout h every six hours as needed Acetaminophen Active 1000 MG PO EVERY 6 HOURS NEEDED 0 November 25, 2022 11:00pm atorvastatin 10 mg oral tablet (14 sources) HMG-CoA Reductase Inhibitor Start: 11-11-2022 take 1 tablet by mouth at bedtime Atorvastatin 10 mg tablet Active 10 mg PO AT BEDTIME November 11, 2022 12:00am 24 hr buPROPion hydrochloride 150 mg extended release oral tablet (20 sources) Aminoketone Start: 11-13-2022 End: 11-13-2022 take 1 tablet by mouth once daily Bupropion Hcl 150 mg tablet extended release 24 hr Active 150 mg PO DAILY November 13, 2022 4:51pm Cholecalciferol (14 sources) Vitamin D Start: 11-11-2022 Cholecalciferol (Vitamin D3) 1,250 mcg (50,000 unit) Tablet Active 1250 ug PO WE November 11, 2022 12:00am Start: 11-11-2022 Cholecalcifero l (Vitamin D3) Active 1250 MCG PO WE November 10, 2022 11:00pm Start: 11-11-2022 Cholecalcifero l (Vitamin D3) Active 1250 MCG PO WE November 11, 2022 12:00am citalopram 10 mg oral tablet (7 sources) Serotonin Reuptake Inhibitor Start: 07-25-2023 take 1 tablet by mouth once daily Citalopram (Celexa) 10 mg tablet Active 10 mg PO DAILY July 25, 2023 1:00am donepezil hydrochloride 10 mg oral tablet (20 sources) Start: 11-26-2022 take 1 tablet by mouth at bedtime Donepezil 10 mg Tablet Active 10 mg PO AT BEDTIME 0 November 26, 2022 12:00am Start: 11-11-2022 End: 11-26-2022 Donepezil 10 mg tablet Disco ntinued 100 mg PO AT BEDTIME November 11, 2022 12:00am November 26, 2022 9:05pm Start: 11-11-2022 End: 11-26-2022 take 100 mg by mouth at bedtime Donepezil Discontinued 100 MG PO AT BEDTIME November 10, 2022 11:00pm November 26, 2022 8:05pm Food Supplemt, Lactose-Reduc ed (Ensure Plus High Protein) 0.08 gram-1.5 kcal/mL liquid (12 sources) Start: 11-13-2022 Food Supplemt, Lactose-Reduced (Ensure Plus High Protein) 0.08 gram-1.5 kcal/mL liquid Active 120 mL PO 4 TIMES DAILY November 13, 2022 4:51pm Start: 11-13-2022 Food Supplemt, Lactose-Reduced (Ensure Plus High Protein) 0.08 gram-1.5 kcal/mL liquid Active 120 ML PO 4 TIMES DAILY November 13, 2022 3:51pm Start: 11-13-2022 Food Supplemt, Lactose-Reduced (Ensure Plus High Protein) 0.08 gram-1.5 kcal/mL liquid Active 120 ML PO 4 TIMES DAILY November 13, 2022 4:51pm levothyroxine sodium 0.025 mg oral tablet (14 sources) l-Thyroxine Start: 02-08-2017 take 1 tablet by mouth once daily Levothyroxine 25 MCG tablet Active 25 ug PO DAILY February 08, 2017 12:00am metFORMIN hydrochloride 500 mg oral tablet (14 sources) Biguanide Start: 11-10-2013 take 1 tablet by mouth once daily Metformin 500 MG tablet Active 500 mg PO DAILY November 10, 2013 12:00am mirtazapine 15 mg oral tablet (12 sources) Start: 11-26-2022 take 7.5 mg by mouth at bedtime Mirtazapine 15 mg Tablet Active 7.5 mg PO AT BEDTIME 0 November 26, 2022 12:00am Start: 11-26-2022 take 7.5 mg by mouth at bedtim e Mirtazapine Active 7.5 MG PO AT BEDTIME 0 November 25, 2022 11:00pm propranolol hydrochloride 20 mg oral tablet (14 sources) beta-Adrenergic Nathanael Start: 11-10-2013 take 1 tablet by mouth once daily Propranolol 20 MG tablet Active 20 mg PO DAILY November 10, 2013 12:00am raloxifene hydrochloride 60 mg oral tablet (13 sources) Estrogen Agonist/Antagonist Start: 11-12-2022 take 1 tablet by mouth once daily Raloxifene 60 mg Tablet Active 60 mg PO DAILY November 12, 2022 12:00am sertraline 25 mg oral tablet (1 source) Serotonin Reuptake Inhibitor Start: 11-11-2022 take 25 mg by mouth every other day Sertraline Active 25 MG PO EVERY OTHER DAY November 11, 2022 12:00am Completed/Discontinued Medications Medication Drug Class(es) Dates Sig (Normalized) Sig (Original) Food Supplemt, Lactose-Reduced (Ensure Plus High Protein) 0.08 gram-1.5 kcal/mL Liquid (13 sources) Start: 11-13-2022 End: 11-13-2022 Food Supplemt, Lactose-Reduced (Ensure Plus High Protein) 0.08 gram-1.5 kcal/mL Liquid Discontinued 120 mL PO 4 TIMES DAILY November 13, 2022 12:00am November 13, 2022 4:51pm Start: 11-13-2022 End: 11-13-2022 Food Supplemt, Lactose-Reduc ed (Ensure Plus High Protein) 0.08 gram-1.5 kcal/mL Liquid Discontinued 120 ML PO 4 TIMES DAILY November 12, 2022 11:00pm November 13, 2022 3:51pm Start: 11-13-2022 End: 11-13-2022 Food Supplemt, Lactose-Reduc ed (Ensure Plus High Protein) 0.08 gram-1.5 kcal/mL Liquid Discontinued 120 ML PO 4 TIMES DAILY November 13, 2022 12:00am November 13, 2022 4:51pm Start: 11-13-2022 Food Supplemt, Lactose-Reduced (Ensure Plus High Protein) 0.08 gram-1.5 kcal/mL Liquid Active 120 ML PO 4 TIMES DAILY November 13, 2022 12:00am ondansetron 4 mg disintegrating oral tablet (14 sources) Serotonin-3 Receptor Antagonist Start: 01-18-2014 End: 02-09-2017 take 1 tablet by mouth every eight hours as needed for nausea Ondansetron 4 MG tablet Discontinued 4 mg PO EVERY 8 HOURS NEEDED as needed for Nausea January 18, 2014 12:00am February 09, 2017 9:05am traMADol hydrochloride 50 mg oral tablet (14 sources) Opioid Agonist Start: 06-04-2018 End: 06-07-2018 take 1 tablet by mouth every four hours as needed for pain Tramadol 50 MG tablet Discontinued 50 mg PO EVERY 4 HOURS NEEDED as needed for Pain 12 3 June 04, 2018 1:00am June 06, 2018 1:00am June 07, 2018 1:12am Problems Active Problems Problem Classification Problem Date Documented Date Episodic/Chronic Deficiency and other anemia (1 source) Anemia in chronic kidney disease; Translations: [Anemia in chronic kidney disease] Onset: 11-08-2024 Chronic Delirium, dementia, and amnestic and other cognitive disorders (19 sources) Alzheimer's disease; Translations: [Alzheimer's disease, unspecified] Onset: 08-31-2024 11-13-2022 Chronic Diabetes mellitus with complications (3 sources) Type 2 diabetes mellitus with diabetic chronic kidney disease; Translations: [Type 2 diabetes mellitus with diabetic nephropathy] Onset: 06-24-2024 Chronic Diabetes mellitus without complication (20 sources) Type 2 diabetes mellitus; Translations: [Type 2 diabetes mellitus without complications] 02-07-2017 Chronic Disorders of lipid metabolism (15 sources) Hyperlipidemia; Translations: [Hyperlipidemia, unspecified] 11-13-2022 Chronic E Codes: Fall (7 sources) Accidental fall ; Translations: [Unspecified fall, initial encounter] 07-25-2023 Episodic Esophageal disorders (14 sources) Gastroesophageal reflux disease; Translations: [Gastro-esophageal reflux disease without esophagitis] 11-11-2022 Chronic Essential hypertension (20 sources) Hypertensive disorder; Translations: [Essential (primary) hypertension] 02-07-2017 Chronic Fluid and electrolyte disorders (20 sources) Hyponatremia; Translations: [Hypo-osmolality and hyponatremia] 11-11-2022 Episodic Hemorrhoids (1 source) Unspecified hemorrhoids; Translations: [Unspecified hemorrhoids] Onset: 10-25-2024 Episodic Hypertension with complications and secondary hypertension (2 sources) Hypertensive chronic kidney disease with stage 1 through stage 4 chronic kidney disease, or unspecified chronic kidney disease; Translations: [Hypertensive chronic kidney disease with stage 1 through stage 4 chronic kidney disease, or unspecified chronic kidney disease] Onset: 08-31-2024 Chronic Malaise and fatigue (20 sources) Decline in functional status; Translations: [Other malaise] 11-11-2022 Episodic Mood disorders (15 sources) Depressive disorder; Translations: [Depression] 11-13-2022 Chronic Noninfectious gastroenteritis (14 sources) Gastroenteritis; Translations: [Noninfective gastroenteritis and colitis, unspecified] 02-09-2017 Episodic Open wounds of head; neck; and trunk (3 sources) Facial laceration ; Translations: [Laceration without foreign body of other part of head, initial encounter] Onset: 11-08-2024 11-04-2024 Episodic Osteoarthritis (14 sources) Osteoarthritis of left knee joint; Translations: [Unilateral primary osteoarthritis, left knee] 06-05-2018 Chronic Osteoporosis (14 sources) Osteoporosis; Translations: [Age-related osteoporosis without current pathological fracture] 02-09-2017 Chronic Other injuries and conditions due to external causes (19 sources) Closed injury of head; Translations: [Unspecified injury of head, initial encounter] 01-20-2023 Episodic Other injuries and conditions due to external causes (10 sources) Contusion of multiple sites; Translations: [Unspecified multiple injuries, initial encounter] 01-20-2023 Episodic Other non-traumatic joint disorders (7 sources) Knee joint effusion; Translations: [Effusion, unspecified knee] 07-25-2023 Episodic Superficial injury; contusion (12 sources) Hematoma of face; Translations: [Contusion of other part of head, initial encounter] 01-20-2023 Episodic Thyroid disorders (16 sources) Hypothyroidism; Translations: [Hypothyroidism, unspecified] Onset: 12-21-2024 11-13-2022 Chronic Unclassified (2 sources) Dementia in other diseases classified elsewhere, mild, with mood disturbance; Translations: [Dementia in other diseases classified elsewhere, mild, with mood disturbance] Onset: 08-31-2024 Past or Other Problems Problem Classification Problem Date Documented Da te Episodic/Chronic Other gastrointestinal disorders (1 source) Diarrhea, unspecified; Translations: [Diarrhea, unspecified] Onset: 02-19-2024 Episodic Results Test Name Value Interpretation Reference Range Facility Brain/Head without Contrasto n 11-03-2024 Brain/Head without Contrast [facility] Imaging Services [address] [place] [address] [id number] Brain/Head without Contrast MR#: [id number] Acct: [id number] Name: MAXIME AMARAL Rep #: [id number] : 1935 F 89 From: Davin Sotelo DO PCP: Dr. Pete Payne MD Status: REG ER Study: Brain/Head without Contrast Date of Exam: 10/18 02/10 Exam# [id number] Ordering Dr: Alirio Edward DO PROCEDURE: BRAIN/HEAD WITHOUT CONTRAST 11/03/2024 REASON FOR EXAM: HEAD INJURY TECHNIQUE: Head CT without intravenous contrast. Coronal and Sagittal reconstruction series were provided. One or more dose reduction techniques were used (e.g., Automated exposure control, adjustment of the mA and/or kV according to patient size, use of iterative reconstruction technique. RADIATION DOSE SUMMARY: CTDlvol: 45 mGy DLP: 762 mGycm COMPARISON: None FINDINGS: Brain: Extensive low density in the deep cerebral white matter most likely represents advanced chronic small vessel ischemic disease. CSF Spaces: Moderate generalized cerebral atrophy Sinuses/Mastoids: Clear at visualized levels Bones: No acute fracture. CT/Brain/Head without Contrast IMPRESSION: CHRONIC CHANGES. NO ACUTE FINDINGS. Reading [facility] CC: Dr. Pete Payne MD; Dr. Alirio Edward DO Anesthesiologist: Signed Normal [facility] Emergency Department Summary on 11-03-2024 Emergency Department Summary [facility] Medical Records Department [address] [place] [id number] Emergency Department Summary 11/03/24 MR#: [id number] Acct: [id number] Name: MAXIME AMARAL Rep #: [id number] : 1935 89 From: Alirio Patel PCP: Dr. Pete Payne MD Status:REG ER Location: ED HPI HPI - Fall History of Present Illness Chief Complaint: Fall Informant: patient and family Narrative Narrative: Patient brought in by EMS from [facility] witnessed fall head injury. Patient history of dementia ambulatory per son. Mostly wheelchair, can weight-bear transfer. From paperwork gaited bowel with walking. Reports she did walk with a walker minimally a week ago. Reported getting off the commode she turned down hitting her head on a radiator. No anticoagulants. She is DNR CC as of 2022 from paperwork. She has baseline per son. [facility] Medical History Dry eye syndrome of bilateral lacrimal glands Constipation Hyperlipidemia Hypokalemia CKD (chronic kidney disease) Weakness Depression, unspecified Alzheimer's disease, unspecified Hypertensive chronic kidney disease with stage 1 through stage 4 chronic kidney disease, or unspecified chronic kidney disease Type 2 diabetes mellitus with unspecified complications Hypothyroidism, unspecified GERD (gastroesophageal reflux disease) Home Medications ???Medication ???Instructions ???Recorded ???Last Taken ???Type metformin 500 mg tablet 500 mg PO DAILY DIABETES 11/10/13 07/24/23 History propranolol 20 mg tablet 20 mg PO DAILY tremors 11/10/13 History levothyroxine 25 mcg tablet 25 mcg PO DAILY THYROID 02/08/17 0 07/24/23 History atorvastatin 10 mg tablet 10 mg PO QHS CHOLESTEROL 11/11/22 07/24/23 History cholecalciferol (vitamin D3) 1,250 1,250 mcg PO WE SUPPLEMENT 11/1107/24/23 History mcg (50,000 unit) tablet raloxifene 60 mg tablet 60 mg PO DAILY Check with primary 11/12/22 07/24/23 History doctor bupropion HCl 150 mg 24 hr tablet, 150 mg PO DAILY mood 11/13/22 History extended release food supplemt, lactose-reduced 120 ml PO 4X/DAY ensure 11/13/22 0 07/24/23 History 0.08 gram-1.5 kcal/mL oral liquid (Ensure Plus High Protein) acetaminophen 500 mg tablet 1,000 mg (2 x 500 mg) PO Q6H PRN 0 11/26/22 Unknown Rx PRN Pain Score 1-10 #0 tabs donepezil 10 mg tablet 10 mg PO QHS #0 tabs 11/26/2212/10 Rx mirtazapine 15 mg tablet 7.5 mg (1/2 x 15 mg) PO QHS #0 tab s 11/26/22 07/24/23 Rx citalopram 10 mg tablet (Celexa) 10 mg PO DAILY 07/25/23 Unknown Hi story Allergy/AdvReac Type Severity Reaction Status Date / Time Penicillins (PCN) AdvReac Diarrhea Verified 11/03/24 21:07 Family History Other Diabetes Surgical History H/O section History of bowel resection Social History housing: assisted living facility Smoking Status: Never smoker alcohol intake: never substance use type: does not use ROS ROS ED Constitutional Constitutional ED: Denies chills, fever(s) or sweats ENT ENT ED: Denies sore throat Cardiovascular Cardiovascular: Denies chest pain Respiratory/Chest Respiratory/Chest: Denies cough Gastrointestinal Gastrointestinal: Denies abdominal pain, diarrhea, nausea or vomiting Musculoskeletal Musculoskeletal: Denies back pain, extremity pain or neck pain Integumentary Reports wounds; Denies rash Neurologic Neurologic: Reports headache(s); Denies paresthesias or weakness EXAM Physical Exam Const Vital Signs: 11/03/24 21:08 11/03/24 21:16 11/03/24 23:07 Temperature 97.7 F L Temperature Source Oral Pulse Rate 80 88 Respiratory Rate 18 19 H Respiratory Effort Normal Non-Labored Respiratory Depth Normal Respiratory Pattern Normal Blood Pressure 136/61 H Blood Pressure Mean 86 Pulse Ox 95 97 Oxygen Delivery Method Room Air Room Air Room Air 11/04/24 00:21 Temperature 98.2 F Temperature Source Pulse Rate 84 Respiratory Rate 17 Respiratory Effort Respiratory Depth Respiratory Pattern Blood Pressure 143/60 H Blood Pressure Mean 87 Pulse Ox 97 Oxygen Delivery Method Positive well nourished and well developed Constitutional Narrative: GCS 15. General Appearance ED: well developed and NAD HEENT Reports moist mucous membranes HEENT Narrative: Laceration above right brow 4 cm controlled with pressure. normocephalic and atraumatic Eyes General Eye ED: Yes normal appearance of both eyes Neck full ROM Chest Wall inspection of chest normal and palpation of chest normal Chest: Negative for te (more content not included)... Normal [facility] Shoulder min 2 Viewson 11-03 Shoulder min 2 Views [facility] Imaging Services [address] [place], [place] [id number] Shoulder min 2 Views MR#: [id number] Acct: [id number] Name: MAXIME AMARAL Rep #: [id number] : 1935 F 89 From: Davin Sotelo DO PCP: Dr. Pete Payne MD Status: REG ER Study: Shoulder min 2 Views Date of Exam: 11/03/24 Exam# [id number] Ordering Dr: Alirio Edward DO PROCEDURE: SHOULDER MIN 2 VIEWS 11/03/2024 REASON FOR EXAM: INJURY TECHNIQUE: 3 view(s) of the right shoulder COMPARISON: None FINDINGS: Bones: No acute fracture. Joints: Normal alignment of the acromioclavicular and glenohumeral joints. Soft tissues: Soft tissues are unremarkable. Other: RAD/Shoulder min 2 Views IMPRESSION: NO ACUTE FRACTURE OR DISLOCATION. [facility] CC: Dr. Pete Payne MD; Dr. Alirio Edward DO Anesthesiologist: Signed Normal [facility] Sinus/Facial Boneon 11-04-19 Sinus/Facial Bone [facility] Imaging Services [address] [place] [address] Sinus/Facial Bone MR#: [id number] Acct: [id number] Name: MAXIME AMARAL Rep #: [id number] : 1935 F 89 From: Davin Sotelo DO PCP: Dr. Pete Payne MD Status: [facility] Study: Sinus/Facial Bone Date of Exam: 11/03/24 Exam# [id number] Ordering Dr: Alirio Edward DO PROCEDURE: SINUS/FACIAL BONE REASON FOR EXAM: INJURY TECHNIQUE: CT of the facial bones without contrast. One or more dose reduction techniques were used (e.g., Automated exposure control, adjustment of the mA and/or kV according to patient size, use of iterative reconstruction technique). COMPARISON: None. FINDINGS: Bones: No acute fracture. Sinuses: Paranasal sinuses are clear. Orbits: Unremarkable. Soft Tissues: Small soft tissue laceration along the right supraorbital region. CT/Sinus/Facial Bone IMPRESSION: Small soft tissue laceration along the right supraorbital region. No acute fracture. Reading Location: [facility] CC: Dr. Pete Payne MD; Dr. Alirio Edward DO Anesthesiologist: Signed Normal [facility] Spine Cervical without Contr ason 11-03-2024 Spine Cervical without Contras [facility] Imaging Services [address] [place] [address] Spine Cervical without Contras MR#: [id number] Acct: [id number] Name: MAXIME AMARAL Rep #: [id number] : 1935 F 89 From: Davin Sotelo DO PCP: Dr. Pete Payne MD Status: REG ER Study: Spine Cervical without Contras Date of Exam: 0 11/03/24 Exam# [id number] Ordering Dr: Alirio Edward DO PROCEDURE: SPINE CERVICAL WITHOUT CONTRAS 11/03/2024 REASON FOR EXAM: INJURY TECHNIQUE: Cervical spine CT without contrast. Coronal and Sagittal reconstruction series were provided. One or more dose reduction techniques were used (e.g., Automated exposure control, adjustment of the mA and/or kV according to patient size, use of iterative reconstruction technique RADIATION DOSE SUMMARY: CTDlvol: 19 mGy DLP: 337 mGycm FINDINGS: Alignment: Straightening of the cervical alignment likely due to positioning. Disc: Multilevel narrowing of the intervertebral disc spaces. Extensive anterior endplates osteophyte formation. Vertebrae: The cervical vertebral body heights are preserved. No acute fracture or subluxation. Soft Tissues: Lung apical sac clear. Other: Carotid artery calcifications. CT/Spine Cervical without Contras IMPRESSION: NO ACUTE CERVICAL FRACTURE. DEGENERATIVE CHANGES. No acute fracture or subluxation. [facility] CC: Dr. Pete Payne MD; Dr. Alirio Edward DO Anesthesiologist: Signed Normal [facility] Absolute neutrophil countOrd ered By: Pete Payne on 10-17-2024 Neutrophils (Bld) [#/Vol] 5.3 10*3/uL 2.0-7.7 [facility] Basophil percentageOrdered B y: Pete Payne on 10-17-2024 Basophils/100 WBC (Bld) 0.8 % 0-1 [facility] Eosinophil percentageOrdered By: Pete Payne on 10-17-2024 Eosinophils/100 WBC (Bld) 3.6 % 0-5 [facility] Erythrocyte distribution wid th (RBC) [Ratio]Ordered By: [facility] Payne on 10-17-2024 Erythrocyte distribution width (RBC) [Entitic vol] 45.9 fL High 35.1-43.9 [facility] Erythrocyte distribution wid th ratioOrdered By: [facility] Kentrellyulia on 10-17-2024 Erythrocyte distribution width (RBC) [Ratio] 13.4 % 11.6-14.6 [facility] Hematocrit Auto (Bld) [Volum e fraction]Ordered By: [facility] Pfeifferyulia on 10-17-2024 Hematocrit (Bld) [Volume fraction] 34.1 % Low 37-47 [facility] Hemoglobin measurementOrdere d By: [facility] Kentrellyulia on 10-17-2024 Hemoglobin (Bld) [Mass/Vol] 11.1 g/dL Low 12.0-15.0 [facility] Immature granulocytes/100 WB C Auto (Bld)[facility] Immature granulocytes/100 WBC (Bld) 0.400 % 0.0-0.9 [facility] Comment on above: IG% - Immature Granu locytes (promyelocytes, myelocytes and metamyelocytes) > 1% indicates that a LEFT SHIFT is Present. Lymphocytes Auto (Unsp spec) [#/Vol]Ordered By: [facility] Kentrellyulia on 10-17-2024 Lymphocytes (Bld) [#/Vol] 3.03 10*3/uL 0.83-4.51 [facility] Lymphocytes/100 WBC Auto (Un sp spec)Ordered By: alexissanta barbarasudarshan Pfeifferyulia on 10-17-2024 Lymphocytes/100 WBC (Bld) 31.8 % 19-41 [facility] MCV (mean corpuscular volume ) determinationOrdered By: [facility] Pfeifferyulia on 10-17-2024 MCV (RBC) [Entitic vol] 92.4 fL 81-99 [facility] Mean corpuscular hemoglobin (MCH) determinationOrdered By: [facility] Kentrellyulia on 10-17-2024 MCH (RBC) [Entitic mass] 30.1 pg 27.0-32.0 [facility] Mean corpuscular hemoglobin concentration (MCHC) determinationOrdered By: Celestealexiskeishasudarshan Payne on 10-17-2024 MCHC (RBC) [Mass/Vol] 32.6 g/dL 32-36 [facility] Mean platelet volume determi nationOrdered By: Pete Kentrellriteshe on 10-17-2024 Platelet mean volume (Bld) [Entitic vol] 10.0 fL 6.2-12.0 [facility] Monocyte percentageOrdered B y: Efterezasudarshan Pfeifferriteshe on 10-17-2024 Monocytes/100 WBC (Bld) 7.4 % 0-10 [facility] Neutrophil percentageOrdered By: Efgeena Pfeifferriteshe on 10-17-2024 Neutrophils/100 WBC (Bld) 56.0 % 47-70 [facility] Nucleated red blood cell per centageOrdered By: Celestealexisanne Kentrellriteshe on 10-17-2024 Nucleated RBC/100 WBC (Bld) [Ratio] 0 % 0-5 [facility] Platelet countOrdered By: Celeste geena Kentrellriteshyulia on 10-17-2024 Platelets (Bld) [#/Vol] 346 10*3/uL 150-450 [facility] RBC Auto (Bld) [#/Vol]Ordere d By: Pete Kentrellriteshyulia on 10-17-2024 RBC (Bld) [#/Vol] 3.69 10*6/uL Low 4.2-5.4 [facility] White blood cell (WBC) count Ordered By: Pete Pfeifferriteshyulia on 10-17-2024 WBC (Bld) [#/Vol] 9.5 10*3/uL 4.4-11.0 [facility] Absolute neutrophil countOrd ered By: Nithinsudarshan Pfeifferriteshyulia on 10-10-2024 Neutrophils (Bld) [#/Vol] 5.5 10*3/uL 2.0-7.7 [facility] Basophil percentageOrdered B y: Pete Kentrellriteshe on 10-10-2024 Basophils/100 WBC (Bld) 0.9 % 0-1 [facility] Eosinophil percentageOrdered By: Pete Pfeifferriteshe on 10-10-2024 Eosinophils/100 WBC (Bld) 2.8 % 0-5 [facility] Erythrocyte distribution wid th (RBC) [Ratio]Ordered By: Pete Payne on 10-10-2024 Erythrocyte distribution width (RBC) [Entitic vol] 45.0 fL High 35.1-43.9 [facility] Erythrocyte distribution wid th ratioOrdered By: [facility] Payne on 10-10-2024 Erythrocyte distribution width (RBC) [Ratio] 13.2 % 11.6-14.6 [facility] Hematocrit Auto (Bld) [Volum e fraction]Ordered By: [facility] Payne on 10-10-2024 Hematocrit (Bld) [Volume fraction] 35.0 % Low 37-47 [facility] Hemoglobin measurementOrdere d By: [facility] Payne on 10-10-2024 Hemoglobin (Bld) [Mass/Vol] 11.3 g/dL Low 12.0-15.0 [facility] Immature granulocytes/100 WB C Auto (Bld)Ordered By: alexissanta barbarasudarshan Payne on 10-10-2024 Immature granulocytes/100 WBC (Bld) 0.500 % 0.0-0.9 [facility] Comment on above: IG% - Immature Granu locytes (promyelocytes, myelocytes and metamyelocytes) > 1% indicates that a LEFT SHIFT is Present. Lymphocytes Auto (Unsp spec) [#/Vol]Ordered By: alexissanta barbarasudarshan Pfeifferyulia on 10-10-2024 Lymphocytes (Bld) [#/Vol] 2.36 10*3/uL 0.83-4.51 [facility] Lymphocytes/100 WBC Auto (Un sp spec)Ordered By: Pete Payne on 10-10-2024 Lymphocytes/100 WBC (Bld) 26.6 % 19-41 [facility] MCV (mean corpuscular volume ) determinationOrdered By: Pete Payne on 10-10-2024 MCV (RBC) [Entitic vol] 92.6 fL 81-99 [facility] Mean corpuscular hemoglobin (MCH) determinationOrdered By: geena Payne on 10-10-2024 MCH (RBC) [Entitic mass] 29.9 pg 27.0-32.0 [facility] Mean corpuscular hemoglobin concentration (MCHC) determinationOrdered By: Pete Payne on 10-10-2024 MCHC (RBC) [Mass/Vol] 32.3 g/dL 32-36 [facility] Mean platelet volume determi nationOrdered By: Efalexisongbe Kentrellriteshe on 10-10-2024 Platelet mean volume (Bld) [Entitic vol] 10.1 fL 6.2-12.0 [facility] Monocyte percentageOrdered B y: Efewongbe Oleghe on 10-10-2024 Monocytes/100 WBC (Bld) 6.7 % 0-10 [facility] Neutrophil percentageOrdered By: Efalexisongbe Kentrellriteshe on 10-10-2024 Neutrophils/100 WBC (Bld) 62.5 % 47-70 [facility] Nucleated red blood cell per centageOrdered By: Efalexisongbe Kentrellriteshe on 10-10-2024 Nucleated RBC/100 WBC (Bld) [Ratio] 0 % 0-5 [facility] Platelet countOrdered By: Ef alexisongbe Kentrellriteshe on 10-10-2024 Platelets (Bld) [#/Vol] 361 10*3/uL 150-450 [facility] RBC Auto (Bld) [#/Vol]Ordere d By: Efalexisongbe Kentrellriteshe on 10-10-2024 RBC (Bld) [#/Vol] 3.78 10*6/uL Low 4.2-5.4 [facility] White blood cell (WBC) count Ordered By: Nithinbe Kentrellriteshe on 10-10-2024 WBC (Bld) [#/Vol] 8.9 10*3/uL 4.4-11.0 [facility] Absolute neutrophil countOrd ered By: Efalexisongbe Kentrellriteshe on 10-06-2024 Neutrophils (Bld) [#/Vol] 4.8 10*3/uL 2.0-7.7 [facility] Basophil percentageOrdered B y: Efalexisongbe Kentrellriteshe on 10-06-2024 Basophils/100 WBC (Bld) 1.0 % 0-1 [facility] Eosinophil percentageOrdered By: Efewongbe Kentrellghe on 10-06-2024 Eosinophils/100 WBC (Bld) 3.1 % 0-5 [facility] Erythrocyte distribution wid th (RBC) [Ratio]Ordered By: Celestealexisanne Kentrellriteshyulia on 10-06-2024 Erythrocyte distribution width (RBC) [Entitic vol] 44.4 fL High 35.1-43.9 [facility] Erythrocyte distribution wid th ratioOrdered By: [facility] Pfeifferriteshyulia on 10-06-2024 Erythrocyte distribution width (RBC) [Ratio] 13.3 % 11.6-14.6 [facility] Hematocrit Auto (Bld) [Volum e fraction]Ordered By: [facility] Pfeifferriteshyulia on 10-06-2024 Hematocrit (Bld) [Volume fraction] 33.2 % Low 37-47 [facility] Hemoglobin measurementOrdere d By: Saturninosanta barbarasudarshan Kentrellsarthak on 10-06-2024 Hemoglobin (Bld) [Mass/Vol] 11.2 g/dL Low 12.0-15.0 [facility] Immature granulocytes/100 WB C Auto (Bld)Ordered By: alexissanta barbarasudarshan Pfeifferriteshyulia on 10-06-2024 Immature granulocytes/100 WBC (Bld) 0.400 % 0.0-0.9 [facility] Comment on above: IG% - Immature Granu locytes (promyelocytes, myelocytes and metamyelocytes) > 1% indicates that a LEFT SHIFT is Present. Lymphocytes Auto (Unsp spec) [#/Vol]Ordered By: alexissanta barbarasudarshan Pfeifferyulia on 10-06-2024 Lymphocytes (Bld) [#/Vol] 2.51 10*3/uL 0.83-4.51 [facility] Lymphocytes/100 WBC Auto (Un sp spec)Ordered By: alexissanta barbarasudarshan Pfeifferriteshyulia on 10-06-2024 Lymphocytes/100 WBC (Bld) 30.2 % 19-41 [facility] MCV (mean corpuscular volume ) determinationOrdered By: Celestegeena Pfeifferriteshyulia on 10-06-2024 MCV (RBC) [Entitic vol] 91.5 fL 81-99 [facility] Mean corpuscular hemoglobin (MCH) determinationOrdered By: geena Payne on 10-06-2024 MCH (RBC) [Entitic mass] 30.9 pg 27.0-32.0 [facility] Mean corpuscular hemoglobin concentration (MCHC) determinationOrdered By: Celestealexiskeishasudarshan Pfeifferriteshyulia on 10-06-2024 MCHC (RBC) [Mass/Vol] 33.7 g/dL 32-36 [facility] Mean platelet volume determi nationOrdered By: Celestealexisanne Kentrellriteshyulia on 10-06-2024 Platelet mean volume (Bld) [Entitic vol] 9.8 fL 6.2-12.0 [facility] Monocyte percentageOrdered B y: Saturninokeishasudarshan Pfeifferriteshe on 10-06-2024 Monocytes/100 WBC (Bld) 7.9 % 0-10 [facility] Neutrophil percentageOrdered By: Celestegeena Pfeifferriteshe on 10-06-2024 Neutrophils/100 WBC (Bld) 57.4 % 47-70 [facility] Nucleated red blood cell per centageOrdered By: Saturninokeishasudarshan Pfeifferriteshyulia on 10-06-2024 Nucleated RBC/100 WBC (Bld) [Ratio] 0 % 0-5 [facility] Platelet countOrdered By: Celeste geena Kentrellriteshyulia on 10-06-2024 Platelets (Bld) [#/Vol] 348 10*3/uL 150-450 [facility] RBC Auto (Bld) [#/Vol]Ordere d By: Celestegeena Kentrellriteshyulia on 10-06-2024 RBC (Bld) [#/Vol] 3.63 10*6/uL Low 4.2-5.4 [facility] White blood cell (WBC) count Ordered By: Pete Pfeifferriteshyulia on 10-06-2024 WBC (Bld) [#/Vol] 8.3 10*3/uL 4.4-11.0 [facility] T4 freeOrdered By: Celestealexisanne Kentrellriteshyulia on 10-03-2024 Free T4 [Mass/Vol] 1.20 ng/dL 0.76-1.46 [facility] TSH DL <= 0.005 mIU/L QnOrde red By: Saturninokeishasudarshan Pfeifferriteshyulia on 10-03-2024 Thyroid Stimulating Hormone (TSH) 4.480 uIU/mL High 0.300-4.200 [facility] Absolute neutrophil countOrd ered By: Pete Payne on 08-23-2024 Neutrophils (Bld) [#/Vol] 5.4 10*3/uL 2.0-7.7 [facility] Albumin to globulin ratioOrd ered By: Pete Payne on 08-23-2024 Albumin/Globulin [Mass ratio] 0.7 {ratio} Low 0.9-2.4 [facility] Basophil percentageOrdered B y: Pete Payne on 08-23-2024 Basophils/100 WBC (Bld) 0.6 % 0-1 [facility] Bilirubin, totalOrdered By: Pete Payne on 08-23-2024 Bilirubin [Mass/Vol] 0.90 mg/dL 0.20-1.00 [facility] Comment on above: For patients on eltr ombopag therapy, use of Dimension [place] TBIL is not recommended. Blood urea nitrogen (BUN)/cr eatinine ratioOrdered By: Pete Payne on 08-23-2024 Urea nitrogen/Creatinine [Mass ratio] 19.5 mg/mg 10-20 [facility] Carbon dioxide measurementOr dered By: Pete Payne on 08-23-2024 CO2 [Moles/Vol] 25.0 mmol/L 21.0-32.0 [facility] Chloride measurementOrdered By: Saturninosanta barbarasudarshan Payne on 08-23-2024 Chloride [Moles/Vol] 108 mmol/L High 98-107 [facility] Eosinophil percentageOrdered By: Pete Payne on 08-23-2024 Eosinophils/100 WBC (Bld) 3.4 % 0-5 [facility] Erythrocyte distribution wid th (RBC) [Ratio]Ordered By: Pete Payne on 08-23-2024 Erythrocyte distribution width (RBC) [Entitic vol] 47.5 fL High 35.1-43.9 [facility] Erythrocyte distribution wid th ratioOrdered By: Saturninosanta barbarasudarshan Payne on 08-23-2024 Erythrocyte distribution width (RBC) [Ratio] 13.8 % 11.6-14.6 [facility] Estimated glomerular filtrat ion rate (GFR) AmericanOrdered By: Pete Payne on 08-23-2024 Estimated GFR (MDRD) Amer 69 mL/min >60 [facility] Comment on above: GFR Calc Glomerular filtration rate ( GFR) estimationOrdered By: ePte Payne on 08-23-2024 Estimated GFR (MDRD) Non-Af Amer 57 mL/min Low >60 [facility] Comment on above: Non- GFR Calc Glucose measurementOrdered B y: Pete Payne on 08-23-2024 Glucose [Mass/Vol] 122 mg/dL High 74-106 [facility] Comment on above: Fasting Glucose resu lt from 100 to 125 mg/dL suggests IMPAIRED HOMEOSTASIS per A.D.A. criteria. Hematocrit Auto (Bld) [Volum e fraction]Ordered By: Pete Payne on 08-23-2024 Hematocrit (Bld) [Volume fraction] 34.2 % Low 37-47 [facility] Hemoglobin A1c percentageOrd ered By: Pete Payne on 08-23-2024 HbA1c (Bld) [Mass fraction] 6.5 % High 3.8-5.6 [facility] Comment on above: Normal < 5.7 % Predi abetic 5.7 - 6.4 % Diabetic >or= 6.5 % Please note range changes. Hemoglobin measurementOrdere d By: Pete Payne on 08-23-2024 Hemoglobin (Bld) [Mass/Vol] 11.0 g/dL Low 12.0-15.0 [facility] Immature granulocytes/100 WB C Auto (Bld)Ordered By: Pete Payne on 08-23-2024 Immature granulocytes/100 WBC (Bld) 0.600 % 0.0-0.9 [facility] Comment on above: IG% - Immature Granu locytes (promyelocytes, myelocytes and metamyelocytes) > 1% indicates that a LEFT SHIFT is Present. Laboratory - Chemistry and C hemistry - challengeOrdered By: Pete Payne on 08-23-2024 AST [Catalytic activity/Vol] 12 U/L Low 15-37 [facility] Lymphocytes Auto (Unsp spec) [#/Vol]Ordered By: Pete Payne on 08-23-2024 Lymphocytes (Bld) [#/Vol] 2.44 10*3/uL 0.83-4.51 [facility] Lymphocytes/100 WBC Auto (Un sp spec)Ordered By: Pete Payne on 08-23-2024 Lymphocytes/100 WBC (Bld) 27.5 % 19-41 [facility] MCV (mean corpuscular volume ) determinationOrdered By: Pete Payne on 08-23-2024 MCV (RBC) [Entitic vol] 93.4 fL 81-99 [facility] Mean corpuscular hemoglobin (MCH) determinationOrdered By: Pete Payne on 08-23-2024 MCH (RBC) [Entitic mass] 30.1 pg 27.0-32.0 [facility] Mean corpuscular hemoglobin concentration (MCHC) determinationOrdered By: Pete Payne on 08-23-2024 MCHC (RBC) [Mass/Vol] 32.2 g/dL 32-36 [facility] Mean platelet volume determi nationOrdered By: Pete Payne on 08-23-2024 Platelet mean volume (Bld) [Entitic vol] 10.2 fL 6.2-12.0 [facility] Monocyte percentageOrdered B y: Pete Payne on 08-23-2024 Monocytes/100 WBC (Bld) 7.2 % 0-10 [facility] Neutrophil percentageOrdered By: Pete Payne on 08-23-2024 Neutrophils/100 WBC (Bld) 60.7 % 47-70 [facility] Nucleated red blood cell per centageOrdered By: Pete Payne on 08-23-2024 Nucleated RBC/100 WBC (Bld) [Ratio] 0 % 0-5 [facility] Platelet countOrdered By: Celeste Payne on 08-23-2024 Platelets (Bld) [#/Vol] 352 10*3/uL 150-450 [facility] Potassium measurementOrdered By: Pete Payne on 08-23-2024 Potassium [Moles/Vol] 4.0 mmol/L 3.5-5.1 [facility] RBC Auto (Bld) [#/Vol]Ordere d By: Pete Payne on 08-23-2024 RBC (Bld) [#/Vol] 3.66 10*6/uL Low 4.2-5.4 [facility] Serum anion gap measurementO rdered By: Pete Payne on 08-23-2024 Anion gap [Moles/Vol] 8 mmol/L 5-15 [facility] Serum globulin measurementOr dered By: Pete Payne on 08-23-2024 Globulin (S) [Mass/Vol] 3.5 g/dL 2.2-4.2 [facility] Serum or plasma alanine castro otransferase (ALT) measurementOrdered By: Pete Payne on 08-23-2024 ALT [Catalytic activity/Vol] 12 U/L Low 13-56 [facility] Serum or plasma albumin karri urement (mass/volume)Ordered By: Pete Payne on 08-23-2024 Albumin [Mass/Vol] 2.6 g/dL Low 3.2-5.0 [facility] Serum or plasma alkaline corky sphatase measurementOrdered By: Pete Payne on 08-23-2024 ALP [Catalytic activity/Vol] 54 U/L 45-117 [facility] Serum or plasma calcium karri urement (mass/volume)Ordered By: Pete Payne 08-23-2024 Calcium [Mass/Vol] 8.5 mg/dL 8.5-10.1 [facility] Serum or plasma creatinine m easurement (mass/volume)Ordered By: Pete Payne on 08-23-2024 Creatinine [Mass/Vol] 0.98 mg/dL 0.55-1.02 [facility] Comment on above: The validity of the calculated GFR & GFRAA in patients over 70 years has not been determined. Clinical correlation is essential. Serum or plasma urea nitroge n measurement (mass/volume)Ordered By: Pete Payne on 08-23-2024 Urea nitrogen [Mass/Vol] 19 mg/dL High 7-18 [facility] Sodium levelOrdered By: Saturnino Pyane on 08-23-2024 Sodium [Moles/Vol] 141 mmol/L 136-145 [facility] TSH QnOrdered By: Pete Payne on 08-23-2024 Thyroid Stimulating Hormone (TSH) 3.840 uIU/mL High 0.358-3.740 [facility] Total proteinOrdered By: Ramsey Payne on 08-23-2024 Protein [Mass/Vol] 6.1 g/dL Low 6.4-8.2 [facility] White blood cell (WBC) count Ordered By: Pete Payne on 08-23-2024 WBC (Bld) [#/Vol] 8.9 10*3/uL 4.4-11.0 [facility] TSH QnOrdered By: Pete Payne on 07-11-2024 Thyroid Stimulating Hormone (TSH) 3.030 uIU/mL 0.358-3.740 [facility] Absolute lymphocyte countOrd ered By: Pete Payne on 08-25-2023 Lymphocytes Auto (Unsp spec) [#/Vol] 2.56 10*3/uL 0.83-4.51 [facility] Automated lymphocyte count a s percentage of total leukocytesOrdered By: Pete Payne on 08-25-2023 Lymphocytes/100 WBC Auto (Unsp spec) 28.1 % 19-41 [facility] Basophil percentageOrdered B y: Pete Payne on 08-25-2023 Basophils/100 WBC (Bld) 1.0 % 0-1 [facility] Bilirubin [Mass/Vol] 1.00 mg/dL 0.20-1.00 [facility] Comment on above: For patients on eltr ombopag therapy, use of Dim[employer] [place] TBIL is not recommended. Chloride [Moles/Vol] 107 mmol/L 98-107 [facility] Eosinophils/100 WBC (Bld) 3.4 % 0-5 [facility] Glucose [Mass/Vol] 143 mg/dL 74-106 [facility] Comment on above: Fasting Glucose resu lt greater than or equal to 126 mg/dL suggests DIABETES MELLITUS per A.D.A. criteria. Hemoglobin (Bld) [Mass/Vol] 11.1 g/dL 12.0-15.0 [facility] Monocytes/100 WBC (Bld) 6.9 % 0-10 [facility] Neutrophils (Bld) [#/Vol] 5.5 10*3/uL 2.0-7.7 [facility] Neutrophils/100 WBC (Bld) 60.3 % 47-70 [facility] Potassium [Moles/Vol] 4.1 mmol/L 3.5-5.1 [facility] Protein [Mass/Vol] 6.8 g/dL 6.4-8.2 [facility] Sodium [Moles/Vol] 140 mmol/L 136-145 [facility] WBC (Bld) [#/Vol] 9.1 10*3/uL 4.4-11.0 [facility] Determination of erythrocyte mean corpuscular volume (MCV)Ordered By: Pete Payne on 08-25-2023 MCV (RBC) [Entitic vol] 93.5 fL 81-99 [facility] Erythrocyte distribution wid th ratioOrdered By: alexissanta barbarasudarshan Payne on 08-25-2023 Erythrocyte distribution width (RBC) [Ratio] 12.9 % 11.6-14.6 [facility] Erythrocyte distribution wid th standard deviationOrdered By: Saturninosanta barbarasudarshan Payne on 08-25-2023 Erythrocyte distribution width (RBC) [Entitic vol] 44.3 fL 35.1-43.9 [facility] Hematocrit Auto (Bld) [Volum e fraction]Ordered By: Pete Payne on 08-25-2023 Hematocrit (Bld) [Volume fraction] 34.5 % 37-47 [facility] Immature granulocytes/100 WB C Auto (Bld)Ordered By: Pete Payne on 08-25-2023 Immature granulocytes/100 WBC (Bld) 0.300 % 0.0-0.9 [facility] Comment on above: IG% - Immature Granu locytes (promyelocytes, myelocytes and metamyelocytes) > 1% indicates that a LEFT SHIFT is Present. Laboratory - Chemistry and C hemistry - challengeOrdered By: Pete Payne on 08-25-2023 Albumin/Globulin [Mass ratio] 0.8 {ratio} 0.9-2.4 [facility] ALP [Catalytic activity/Vol] 62 U/L 45-117 [facility] ALT [Catalytic activity/Vol] 14 U/L 13-56 [facility] CO2 [Moles/Vol] 25.0 mmol/L 21.0-32.0 [facility] Globulin (S) [Mass/Vol] 3.8 g/dL 2.2-4.2 [facility] Urea nitrogen/Creatinine [Mass ratio] 20.9 mg/mg 10-20 [facility] Laboratory - Hematology and Cell countsOrdered By: Pete Payne on 08-25-2023 MCH (RBC) [Entitic mass] 30.1 pg 27.0-32.0 [facility] MCHC (RBC) [Mass/Vol] 32.2 g/dL 32-36 [facility] Nucleated RBC/100 WBC (Bld) [Ratio] 0 % 0-5 [facility] Platelet mean volume (Bld) [Entitic vol] 10.2 fL 6.2-12.0 [facility] Platelets (Bld) [#/Vol] 373 10*3/uL 150-450 [facility] No Panel InformationOrdered By: Pete Payne on 08-25-2023 Estimated GFR (MDRD) Amer 71 mL/min >60 [facility] Comment on above: GFR Calc Estimated GFR (MDRD) Non-Af Amer 59 mL/min >60 [facility] Comment on above: Non- GFR Calc RBC Auto (Bld) [#/Vol]Ordere d By: Pete Payne on 08-25-2023 RBC (Bld) [#/Vol] 3.69 10*6/uL 4.2-5.4 [facility] Serum or plasma calcium karri urement (mass/volume)Ordered By: Pete Payne on 08-25-2023 Calcium [Mass/Vol] 9.4 mg/dL 8.5-10.1 [facility] Serum or plasma creatinine m easurement (mass/volume)Ordered By: Pete Payne on 08-25-2023 Creatinine [Mass/Vol] 0.96 mg/dL 0.55-1.02 [facility] Comment on above: The validity of the calculated GFR & GFRAA in patients over 70 years has not been determined. Clinical correlation is essential. Serum or plasma urea nitroge n measurement (mass/volume)Ordered By: Pete Payne on 08-25-2023 Urea nitrogen [Mass/Vol] 20 mg/dL 7-18 [facility] Thin prep Papanicolaou smear with manual screeningOrdered By: geena Payne on 08-25-2023 Thin prep Papanicolaou smear with manual screening 3.0 g/dL 3.2-5.0 [facility] Thin prep Papanicolaou smear with manual screening 13 U/L 15-37 [facility] Thin prep Papanicolaou smear with manual screening 8 5-15 [facility] Whole blood hemoglobin A1c/t otal hemoglobin ratio (mass fraction)Ordered By: Pete Payne on 08-25-2023 HbA1c (Bld) [Mass fraction] 6.9 % 3.8-5.6 [facility] Comment on above: Normal < 5.7 % Predi abetic 5.7 - 6.4 % Diabetic >or= 6.5 % Please note range changes. Laboratory - Chemistry and C hemistry - challengeOrdered By: Pete Payne on 03-16-2023 Free T4 [Mass/Vol] 1.07 ng/dL 0.76-1.46 [facility] No Panel InformationOrdered By: Pete Payne on 03-16-2023 Thyroid Stimulating Hormone (TSH) 4.03 uIU/mL 0.358-3.74 [facility] Total Triiodothyronine 1.24 ng/mL 0.6-1.81 [facility] Absolute lymphocyte countOrd ered By: Pete Payne on 03-12-2023 Lymphocytes Auto (Unsp spec) [#/Vol] 2.46 10*3/uL 0.83-4.51 [facility] Basophil percentageOrdered B y: Pete Payne on 03-12-2023 Basophils/100 WBC (Bld) 1.1 % 0-1 [facility] Bilirubin [Mass/Vol] 0.70 mg/dL 0.20-1.00 [facility] Comment on above: For patients on eltr ombopag therapy, use of Dimension [place] TBIL is not recommended. Chloride [Moles/Vol] 106 mmol/L 98-107 [facility] Cholesterol [Mass/Vol] 106 mg/dL <200 [facility] Comment on above: <200 mg/dL Desirable 200-240 mg/dL Borderline >240 mg/dL High Risk Eosinophils/100 WBC (Bld) 2.8 % 0-5 [facility] Glucose [Mass/Vol] 151 mg/dL 74-106 [facility] Comment on above: Fasting Glucose resu lt greater than or equal to 126 mg/dL suggests DIABETES MELLITUS per A.D.A. criteria. Neutrophils (Bld) [#/Vol] 4.8 10*3/uL 2.0-7.7 [facility] Neutrophils/100 WBC (Bld) 57.0 % 47-70 [facility] Potassium [Moles/Vol] 4.1 mmol/L 3.5-5.1 [facility] Protein [Mass/Vol] 6.3 g/dL 6.4-8.2 [facility] Sodium [Moles/Vol] 138 mmol/L 136-145 [facility] Triglyceride [Mass/Vol] 135 mg/dL <199 [facility] Comment on above: The drugs N-Acetylcy steine and Metamizole may falsely depress this assay.Serum Triglycerides Reference Interval Normal <150 mg/dL Borderline high 150 - 199 mg/dL High 200 - 499 mg/dL Very High > or = 500 mg/dL WBC (Bld) [#/Vol] 8.3 10*3/uL 4.4-11.0 [facility] Blood erythrocytes count (nu mber/volume)Ordered By: Pete Payne on 03-12-2023 RBC (Bld) [#/Vol] 3.59 10*6/uL 4.2-5.4 [facility] Blood hemoglobin measurement (mass/volume)Ordered By: Pete Payne on 03-12-2023 Hemoglobin (Bld) [Mass/Vol] 11.0 g/dL 12.0-15.0 [facility] Blood lymphocytes/100 leukoc ytesOrdered By: Celestegeena Payne on 03-12-2023 Lymphocytes/100 WBC (Bld) 29.5 % 19-41 [facility] Blood monocytes/100 leukocyt esOrdered By: Nithinsudarshan Pfeifferriteshyulia on 03-12-2023 Monocytes/100 WBC (Bld) 9.2 % 0-10 [facility] Blood platelet mean volumeOr dered By: Celestegeena Payne on 03-12-2023 Platelet mean volume (Bld) [Entitic vol] 9.8 fL 6.2-12.0 [facility] Determination of erythrocyte mean corpuscular volume (MCV)Ordered By: Pete Payne on 03-12-2023 MCV (RBC) [Entitic vol] 93.9 fL 81-99 [facility] Hematocrit Auto (Bld) [Volum e fraction]Ordered By: Pete Payne on 03-12-2023 Hematocrit (Bld) [Volume fraction] 33.7 % 37-47 [facility] Laboratory - Chemistry and C hemistry - challengeOrdered By: geena Payne on 03-12-2023 ALP [Catalytic activity/Vol] 57 U/L 45-117 [facility] ALT [Catalytic activity/Vol] 16 U/L 13-56 [facility] CO2 [Moles/Vol] 25.0 mmol/L 21.0-32.0 [facility] Globulin (S) [Mass/Vol] 3.4 g/dL 2.2-4.2 [facility] Urea nitrogen/Creatinine [Mass ratio] 16.0 mg/mg 10-20 [facility] Laboratory - Hematology and Cell countsOrdered By: Pete Payne on 03-12-2023 Erythrocyte distribution width (RBC) [Entitic vol] 42.9 fL 35.1-43.9 [facility] Erythrocyte distribution width (RBC) [Ratio] 12.4 % 11.6-14.6 [facility] Immature granulocytes/100 WBC (Bld) 0.400 % 0.0-0.9 [facility] Comment on above: IG% - Immature Granu locytes (promyelocytes, myelocytes and metamyelocytes) > 1% indicates that a LEFT SHIFT is Present. MCH (RBC) [Entitic mass] 30.6 pg 27.0-32.0 [facility] Nucleated RBC/100 WBC (Bld) [Ratio] 0 % 0-5 [facility] MCHC Auto (RBC) [Mass/Vol]Or dered By: Pete Payne on 03-12-2023 MCHC (RBC) [Mass/Vol] 32.6 g/dL 32-36 [facility] No Panel InformationOrdered By: Pete Payne on 03-12-2023 Estimated GFR (MDRD) Amer 63 mL/min >60 [facility] Comment on above: GFR Calc Estimated GFR (MDRD) Non-Af Amer 52 mL/min >60 [facility] Comment on above: Non- GFR Calc Thyroid Stimulating Hormone (TSH) 4.75 uIU/mL 0.358-3.74 [facility] Vitamin D 25-Hydroxy 107.1 ng/mL [facility] Comment on above: Vitamin D 25(OH) Sta tus Range Deficiency <20 ng/mL (50nmol/L) Insufficiency 20 - 30 ng/mL (50 - 75 nmol/L) Sufficiency 30 - 100 ng/mL (75 - 250 nmol/L) Toxicity >100 ng/mL (>250 nmol/L)Evidence suggests that patients undergoing fluorescein dye angiography can retain small amounts of fluorescein in the body for up to 48 to 72 hours post-treatment. In the cases of patients with renal insufficiency, retention could be much longer. Samples containing fluorescein can produce falsely elevated values when tested with the [employer] Cent[employer] Vitamin D assay. With fluorescein interference, observed Vitamin D values can be as high as >150 ng/mL (>375 nmol/L). Samples should be resubmitted post fluorescein clearance to ensure there is no interference with Vitamin D test results. Platelets bldOrdered By: Ramsey Payne on 03-12-2023 Platelets (Bld) [#/Vol] 361 10*3/uL 150-450 [facility] Serum or plasma albumin akrri urement (mass/volume)Ordered By: Pete Payne on 03-12-2023 Albumin [Mass/Vol] 2.9 g/dL 3.2-5.0 [facility] Serum or plasma albumin/glob ulin mass ratioOrdered By: Pete Payne on 03-12-2023 Albumin/Globulin [Mass ratio] 0.9 {ratio} 0.9-2.4 [facility] Serum or plasma calcium karri urement (mass/volume)Ordered By: Pete Payne on 03-12-2023 Calcium [Mass/Vol] 9.0 mg/dL 8.5-10.1 [facility] Serum or plasma cholesterol in HDL measurement (mass/volume)Ordered By: Pete Payne on 03-12-2023 Cholesterol in HDL [Mass/Vol] 46 mg/dL >40 [facility] Comment on above: The drugs N-Acetylcy steine and Metamizole may falsely depress this assay. Reference Range HDL <40 mg/dL Low HDL Cholesterol HDL >or= 60 mg/dL High HDL Cholesterol Serum or plasma cholesterol in VLDL measurement (mass/volume)Ordered By: Pete Payne on 03-12-2023 Cholesterol in VLDL [Mass/Vol] 27 mg/dL 5-40 [facility] Serum or plasma creatinine m easurement (mass/volume)Ordered By: Pete Payne on 03-12-2023 Creatinine [Mass/Vol] 1.06 mg/dL 0.55-1.02 [facility] Comment on above: The validity of the calculated GFR & GFRAA in patients over 70 years has not been determined. Clinical correlation is essential. Serum or plasma low density lipoprotein (LDL) cholesterol measurement (mass/volume)Ordered By: Pete Payne on 03-12-2023 Cholesterol in LDL [Mass/Vol] 33 mg/dL 0-130 [facility] Serum or plasma urea nitroge n measurement (mass/volume)Ordered By: Pete Payne on 03-12-2023 Urea nitrogen [Mass/Vol] 17 mg/dL 7-18 [facility] Thin prep Papanicolaou smear with manual screeningOrdered By: Pete Payne on 03-12-2023 Thin prep Papanicolaou smear with manual screening 13 U/L 15-37 [facility] Thin prep Papanicolaou smear with manual screening 7 5-15 [facility] Whole blood hemoglobin A1c/t otal hemoglobin ratio (mass fraction)Ordered By: Pete Payne on 03-12-2023 HbA1c (Bld) [Mass fraction] 7.2 % 3.8-5.6 [facility] Comment on above: Normal < 5.7 % Predi abetic 5.7 - 6.4 % Diabetic >or= 6.5 % Please note range changes. Absolute lymphocyte countOrd ered By: Pete Payne on 12-01-2022 Lymphocytes Auto (Unsp spec) [#/Vol] 2.66 10*3/uL 0.83-4.51 [facility] Basophil percentageOrdered B y: Pete Payne on 12-01-2022 Basophils/100 WBC (Bld) 1.0 % 0-1 [facility] Bilirubin [Mass/Vol] 1.00 mg/dL 0.20-1.00 [facility] Comment on above: For patients on eltr ombopag therapy, use of Dimension [place] TBIL is not recommended. Chloride [Moles/Vol] 100 mmol/L 98-107 [facility] Eosinophils/100 WBC (Bld) 2.3 % 0-5 [facility] Glucose [Mass/Vol] 152 mg/dL 74-106 [facility] Comment on above: Fasting Glucose resu lt greater than or equal to 126 mg/dL suggests DIABETES MELLITUS per A.D.A. criteria. Neutrophils (Bld) [#/Vol] 5.8 10*3/uL 2.0-7.7 [facility] Neutrophils/100 WBC (Bld) 60.2 % 47-70 [facility] Potassium [Moles/Vol] 4.3 mmol/L 3.5-5.1 [facility] Protein [Mass/Vol] 6.1 g/dL 6.4-8.2 [facility] Sodium [Moles/Vol] 138 mmol/L 136-145 [facility] WBC (Bld) [#/Vol] 9.7 10*3/uL 4.4-11.0 [facility] Blood erythrocytes count (nu mber/volume)Ordered By: Pete Payne on 12-01-2022 RBC (Bld) [#/Vol] 3.46 10*6/uL 4.2-5.4 [facility] Blood hemoglobin measurement (mass/volume)Ordered By: Celestealexiskeishasudarshan Pfeifferriteshyulia on 12-01-2022 Hemoglobin (Bld) [Mass/Vol] 10.8 g/dL 12.0-15.0 [facility] Blood lymphocytes/100 leukoc ytesOrdered By: Celestegeena Payne on 12-01-2022 Lymphocytes/100 WBC (Bld) 27.5 % 19-41 [facility] Blood monocytes/100 leukocyt esOrdered By: alexiskeishasudarshan Pfeifferriteshyulia on 12-01-2022 Monocytes/100 WBC (Bld) 8.4 % 0-10 [facility] Blood platelet mean volumeOr dered By: Celestegeena Pfeifferriteshyulia on 12-01-2022 Platelet mean volume (Bld) [Entitic vol] 9.9 fL 6.2-12.0 [facility] Determination of erythrocyte mean corpuscular volume (MCV)Ordered By: Pete Payne on 12-01-2022 MCV (RBC) [Entitic vol] 97.1 fL 81-99 [facility] Hematocrit Auto (Bld) [Volum e fraction]Ordered By: Celestealexiskeishasudarshan Pfeifferriteshyulia on 12-01-2022 Hematocrit (Bld) [Volume fraction] 33.6 % 37-47 [facility] Laboratory - Chemistry and C hemistry - challengeOrdered By: Pete Payne on 12-01-2022 ALP [Catalytic activity/Vol] 60 U/L 45-117 [facility] ALT [Catalytic activity/Vol] 22 U/L 13-56 [facility] CO2 [Moles/Vol] 29.0 mmol/L 21.0-32.0 [facility] Globulin (S) [Mass/Vol] 3.3 g/dL 2.2-4.2 [facility] Urea nitrogen/Creatinine [Mass ratio] 16.1 mg/mg 10-20 [facility] Laboratory - Hematology and Cell countsOrdered By: Celestegeena Payne on 12-01-2022 Erythrocyte distribution width (RBC) [Entitic vol] 44.6 fL 35.1-43.9 [facility] Erythrocyte distribution width (RBC) [Ratio] 12.5 % 11.6-14.6 [facility] Immature granulocytes/100 WBC (Bld) 0.600 % 0.0-0.9 [facility] Comment on above: IG% - Immature Granu locytes (promyelocytes, myelocytes and metamyelocytes) > 1% indicates that a LEFT SHIFT is Present. MCH (RBC) [Entitic mass] 31.2 pg 27.0-32.0 [facility] Nucleated RBC/100 WBC (Bld) [Ratio] 0 % 0-5 [facility] MCHC Auto (RBC) [Mass/Vol]Or dered By: Pete Payne on 12-01-2022 MCHC (RBC) [Mass/Vol] 32.1 g/dL 32-36 [facility] No Panel InformationOrdered By: Pete Payne on 12-01-2022 Estimated GFR (MDRD) Amer 59 mL/min >60 [facility] Comment on above: GFR Calc Estimated GFR (MDRD) Non-Af Amer 49 mL/min >60 [facility] Comment on above: Non- GFR Calc Platelets bldOrdered By: Ramsey Payne on 12-01-2022 Platelets (Bld) [#/Vol] 517 10*3/uL 150-450 [facility] Serum or plasma albumin karri urement (mass/volume)Ordered By: Pete Payne on 12-01-2022 Albumin [Mass/Vol] 2.8 g/dL 3.2-5.0 [facility] Serum or plasma albumin/glob ulin mass ratioOrdered By: Pete Payne on 12-01-2022 Albumin/Globulin [Mass ratio] 0.8 {ratio} 0.9-2.4 [facility] Serum or plasma calcium karri urement (mass/volume)Ordered By: Pete Payne on 12-01-2022 Calcium [Mass/Vol] 9.0 mg/dL 8.5-10.1 [facility] Serum or plasma creatinine m easurement (mass/volume)Ordered By: Pete Payne on 12-01-2022 Creatinine [Mass/Vol] 1.12 mg/dL 0.55-1.02 [facility] Comment on above: The validity of the calculated GFR & GFRAA in patients over 70 years has not been determined. Clinical correlation is essential. Serum or plasma urea nitroge n measurement (mass/volume)Ordered By: Pete Payne on 12-01-2022 Urea nitrogen [Mass/Vol] 18 mg/dL 7-18 [facility] Thin prep Papanicolaou smear with manual screeningOrdered By: Pete Payne on 12-01-2022 Thin prep Papanicolaou smear with manual screening 15 U/L 15-37 [facility] Thin prep Papanicolaou smear with manual screening 9 5-15 [facility] Glucose Glucometer (BldC) [M ass/Vol]Ordered By: Dr. Crooks on 11-29-2022 Glucose [Mass/Vol] 95 mg/dL 74-106 [facility] Comment on above: MANAGEMENT OF PATIEN T CARE PER NURSING PROTOCOL Absolute lymphocyte countOrd ered By: Dr. Crooks on 11-28-2022 Lymphocytes Auto (Unsp spec) [#/Vol] 2.74 10*3/uL 0.83-4.51 [facility] Basophil percentageOrdered B y: Dr. Crooks on 11-28-2022 Basophils/100 WBC (Bld) 0.9 % 0-1 [facility] Chloride [Moles/Vol] 104 mmol/L 98-107 [facility] Eosinophils/100 WBC (Bld) 2.2 % 0-5 [facility] Glucose [Mass/Vol] 146 mg/dL 74-106 [facility] Comment on above: Fasting Glucose resu lt greater than or equal to 126 mg/dL suggests DIABETES MELLITUS per A.D.A. criteria. Neutrophils (Bld) [#/Vol] 7.4 10*3/uL 2.0-7.7 [facility] Neutrophils/100 WBC (Bld) 65.0 % 47-70 [facility] Potassium [Moles/Vol] 4.2 mmol/L 3.5-5.1 [facility] Sodium [Moles/Vol] 137 mmol/L 136-145 [facility] WBC (Bld) [#/Vol] 11.4 10*3/uL 4.4-11.0 [facility] Blood erythrocytes count (nu mber/volume)Ordered By: Dr. Crooks on 11-28-2022 RBC (Bld) [#/Vol] 3.62 10*6/uL 4.2-5.4 [facility] Blood hemoglobin measurement (mass/volume)Ordered By: Dr. Crooks on 11-28-2022 Hemoglobin (Bld) [Mass/Vol] 11.2 g/dL 12.0-15.0 [facility] Blood lymphocytes/100 leukoc ytesOrdered By: Dr. Crooks on 11-28-2022 Lymphocytes/100 WBC (Bld) 24.1 % 19-41 [facility] Blood monocytes/100 leukocyt esOrdered By: Dr. Crooks on 11-28-2022 Monocytes/100 WBC (Bld) 7.2 % 0-10 [facility] Blood platelet mean volumeOr dered By: Dr. Crooks on 11-28-2022 Platelet mean volume (Bld) [Entitic vol] 9.3 fL 6.2-12.0 [facility] Determination of erythrocyte mean corpuscular volume (MCV)Ordered By: Dr. Coroks on 11-28-2022 MCV (RBC) [Entitic vol] 96.4 fL 81-99 [facility] Glucose Glucometer (BldC) [M ass/Vol]Ordered By: Dr. Crooks on 11-28-2022 Glucose [Mass/Vol] 146 mg/dL 74-106 [facility] Comment on above: MANAGEMENT OF PATIEN T CARE PER NURSING PROTOCOL Hematocrit Auto (Bld) [Volum e fraction]Ordered By: Dr. Crooks on 11-28-2022 Hematocrit (Bld) [Volume fraction] 34.9 % 37-47 [facility] Laboratory - Chemistry and C hemistry - challengeOrdered By: Dr. Crooks on 11-28-2022 CO2 [Moles/Vol] 28.0 mmol/L 21.0-32.0 [facility] Urea nitrogen/Creatinine [Mass ratio] 18.2 mg/mg 10-20 [facility] Laboratory - Hematology and Cell countsOrdered By: Dr. Crooks on 11-28-2022 Erythrocyte distribution width (RBC) [Entitic vol] 43.3 fL 35.1-43.9 [facility] Erythrocyte distribution width (RBC) [Ratio] 12.4 % 11.6-14.6 [facility] Immature granulocytes/100 WBC (Bld) 0.600 % 0.0-0.9 [facility] Comment on above: IG% - Immature Granu locytes (promyelocytes, myelocytes and metamyelocytes) > 1% indicates that a LEFT SHIFT is Present. MCH (RBC) [Entitic mass] 30.9 pg 27.0-32.0 [facility] Nucleated RBC/100 WBC (Bld) [Ratio] 0 % 0-5 [facility] MCHC Auto (RBC) [Mass/Vol]Or dered By: Dr. Crooks on 11-28-2022 MCHC (RBC) [Mass/Vol] 32.1 g/dL 32-36 [facility] No Panel InformationOrdered By: Dr. Crooks on 11-28-2022 Estimated Creatinine Clearance Calc 37.22 ml/min [facility] Estimated GFR (MDRD) Amer 73 mL/min >60 [facility] Comment on above: GFR Calc Estimated GFR (MDRD) Non-Af Amer 61 mL/min >60 [facility] Comment on above: Non- GFR Calc Platelets bldOrdered By: Dr. Crooks on 11-28-2022 Platelets (Bld) [#/Vol] 445 10*3/uL 150-450 [facility] Serum or plasma calcium karri urement (mass/volume)Ordered By: Dr. Crooks on 11-28-2022 Calcium [Mass/Vol] 8.9 mg/dL 8.5-10.1 [facility] Serum or plasma creatinine m easurement (mass/volume)Ordered By: Dr. Crooks on 11-28-2022 Creatinine [Mass/Vol] 0.93 mg/dL 0.55-1.02 [facility] Comment on above: The validity of the calculated GFR & GFRAA in patients over 70 years has not been determined. Clinical correlation is essential. Serum or plasma urea nitroge n measurement (mass/volume)Ordered By: Dr. Crooks on 11-28-2022 Urea nitrogen [Mass/Vol] 17 mg/dL 7-18 [facility] Thin prep Papanicolaou smear with manual screeningOrdered By: Dr. Crooks on 11-28-2022 Thin prep Papanicolaou smear with manual screening 5 5-15 [facility] COVID-19 virus antigen assay Ordered By: Sylvester Crooks on 11-16-2022 SARS-CoV-2 (COVID-19) Ag IA.rapid Ql (Resp) [facility] COVID-19 virus antigen assay Ordered By: Dr. Crooks on 11-16-2022 SARS-CoV-2 (COVID-19) Ag IA.rapid Ql (Resp) [facility] Culture, urineOrdered By: Dr Néstor Crooks on 11-16-2022 Bacteria identified Cx Nom (U) Escherichia coli [facility] Bacteria identified Cx Nom (U) Klebsiella pneumoniae sp pneum [facility] Basophil percentageOrdered B y: Dr. Crooks on 11-14-2022 Basophil percentage 10-25 SEEN /hpf 0-5 [facility] Bilirubin Test strip Ql (U)O rdered By: Dr. Crooks on 11-14-2022 Bilirubin Ql (U) Negative Negative [facility] Culture, urineOrdered By: Raffi Crooks on 11-14-2022 Bacteria identified Cx Nom (U) Escherichia coli [facility] Bacteria identified Cx Nom (U) Klebsiella pneumoniae sp pneum [facility] Ketones Test strip Ql (U)Ord ered By: Dr. Crooks on 11-14-2022 Ketones Ql (U) Negative Negative [facility] Mucus LM Ql (Urine sed)Order ed By: Dr. Crooks on 11-14-2022 Mucus Ql (Urine sed) 0 SEEN /hpf [facility] Nitrite Test strip Ql (U)Ord ered By: Dr. Crooks on 11-14-2022 Nitrite Ql (U) Negative Negative [facility] No Panel InformationOrdered By: Dr. Crooks on 11-14-2022 Urine Transitional Epithelial Cells 0-5 SEEN /hpf 0-5 [facility] Protein Test strip Ql (U)Ord ered By: Dr. Crooks on 11-14-2022 Protein Ql (U) Negative Negative [facility] Squamous epithelial cells de tection in urine sediment by light microscopyOrdered By: Dr. Crooks on 11-14-2022 Epithelial cells.squamous LM Ql (Urine sed) 0-5 SEEN /hpf 5-10 [facility] Urine blood detectionOrdered By: Dr. Crooks on 11-14-2022 RBC Ql (U) 10 /ul Negative [facility] RBC Ql (U) 0-5 SEEN /hpf 0-5 [facility] Urine clarityOrdered By: Dr. Crooks on 11-14-2022 Clarity (U) Sl. Cloudy Clear [facility] Urine color determinationOrd ered By: Dr. Crooks on 11-14-2022 Color (U) Yellow Yellow [facility] Urine glucose detectionOrder ed By: Dr. Crooks on 11-14-2022 Glucose Ql (U) 100 mg/dl Normal [facility] Urine leukocyte esterase det ection by dipstickOrdered By: Dr. Crooks on 11-14-2022 Leukocyte esterase Test strip Ql (U) 100 /ul Negative [facility] Urine pHOrdered By: Dr. Crooks on 11-14-2022 pH (U) 6.0 [pH] 5.0 - 8.0 [facility] Urine sediment bacteria coun t by microscopy (number/high power field)Ordered By: Dr. Crooks on 11-14-2022 Bacteria LM.HPF (Urine sed) [#/Area] 1 /[HPF] None Seen [facility] Urine specific gravity measu rementOrdered By: Dr. Crooks on 11-14-2022 Specific gravity (U) [Rel density] 1.010 1.002-1.030 [facility] Urobilinogen Auto test strip Ql (U)Ordered By: Dr. Crooks on 11-14-2022 Urobilinogen Ql (U) Normal mg/dl Normal [facility] Absolute lymphocyte countOrd ered By: Dr. Betancur on 11-13-2022 Lymphocytes Auto (Unsp spec) [#/Vol] 3.26 10*3/uL 0.83-4.51 [facility] Basophil percentageOrdered B y: Dr. Betancur on 11-13-2022 Basophils/100 WBC (Bld) 0.7 % 0-1 [facility] Bilirubin [Mass/Vol] 1.00 mg/dL 0.20-1.00 [facility] Comment on above: For patients on eltr ombopag therapy, use of Dimension [place] TBIL is not recommended. Chloride [Moles/Vol] 106 mmol/L 98-107 [facility] Eosinophils/100 WBC (Bld) 1.7 % 0-5 [facility] Glucose [Mass/Vol] 150 mg/dL 74-106 [facility] Comment on above: Fasting Glucose resu lt greater than or equal to 126 mg/dL suggests DIABETES MELLITUS per A.D.A. criteria. Neutrophils (Bld) [#/Vol] 8.7 10*3/uL 2.0-7.7 [facility] Neutrophils/100 WBC (Bld) 66.3 % 47-70 [facility] Potassium [Moles/Vol] 3.9 mmol/L 3.5-5.1 [facility] Protein [Mass/Vol] 5.6 g/dL 6.4-8.2 [facility] Sodium [Moles/Vol] 132 mmol/L 136-145 [facility] WBC (Bld) [#/Vol] 13.2 10*3/uL 4.4-11.0 [facility] Blood erythrocytes count (nu mber/volume)Ordered By: Dr. Betancur on 11-13-2022 RBC (Bld) [#/Vol] 3.32 10*6/uL 4.2-5.4 [facility] Blood hemoglobin measurement (mass/volume)Ordered By: Dr. Betancur on 11-13-2022 Hemoglobin (Bld) [Mass/Vol] 10.5 g/dL 12.0-15.0 [facility] Blood lymphocytes/100 leukoc ytesOrdered By: Dr. Betancur on 11-13-2022 Lymphocytes/100 WBC (Bld) 24.7 % 19-41 [facility] Blood monocytes/100 leukocyt esOrdered By: Dr. Betancur on 11-13-2022 Monocytes/100 WBC (Bld) 6.2 % 0-10 [facility] Blood platelet mean volumeOr dered By: Dr. Betancur on 11-13-2022 Platelet mean volume (Bld) [Entitic vol] 8.6 fL 6.2-12.0 [facility] COVID-19 virus antigen assay Ordered By: Bernice Betancur on 11-13-2022 SARS-CoV-2 (COVID-19) Ag IA.rapid Ql (Resp) [facility] COVID-19 virus antigen assay Ordered By: Dr. Betancur on 11-13-2022 SARS-CoV-2 (COVID-19) Ag IA.rapid Ql (Resp) [facility] Determination of erythrocyte mean corpuscular volume (MCV)Ordered By: Dr. Betancur on 11-13-2022 MCV (RBC) [Entitic vol] 92.5 fL 81-99 [facility] Direct bilirubinOrdered By: Dr. Betancur on 11-13-2022 Bilirubin.direct [Mass/Vol] 0.34 mg/dL 0.00-0.30 [facility] Hematocrit Auto (Bld) [Volum e fraction]Ordered By: Dr. Betancur on 11-13-2022 Hematocrit (Bld) [Volume fraction] 30.7 % 37-47 [facility] Iron measurement (mass/mass) Ordered By: Dr. Betancur on 11-13-2022 Iron (Unsp spec) [Mass/Mass] 48 ug/dL 50-170 [facility] Laboratory - Chemistry and C hemistry - challengeOrdered By: Dr. Betancur on 11-13-2022 ALP [Catalytic activity/Vol] 35 U/L 45-117 [facility] ALT [Catalytic activity/Vol] 19 U/L 13-56 [facility] CO2 [Moles/Vol] 23.0 mmol/L 21.0-32.0 [facility] Cobalamin (Vitamin B12) [Mass/Vol] 583 pg/mL 211-911 [facility] Free T4 [Mass/Vol] 1.48 ng/dL 0.76-1.46 [facility] Globulin (S) [Mass/Vol] 2.8 g/dL 2.2-4.2 [facility] Urea nitrogen/Creatinine [Mass ratio] 17.2 mg/mg 10-20 [facility] Laboratory - Hematology and Cell countsOrdered By: Dr. Betancur on 11-13-2022 Erythrocyte distribution width (RBC) [Entitic vol] 42.5 fL 35.1-43.9 [facility] Erythrocyte distribution width (RBC) [Ratio] 12.7 % 11.6-14.6 [facility] Immature granulocytes/100 WBC (Bld) 0.400 % 0.0-0.9 [facility] Comment on above: IG% - Immature Granu locytes (promyelocytes, myelocytes and metamyelocytes) > 1% indicates that a LEFT SHIFT is Present. MCH (RBC) [Entitic mass] 31.6 pg 27.0-32.0 [facility] Nucleated RBC/100 WBC (Bld) [Ratio] 0 % 0-5 [facility] MCHC Auto (RBC) [Mass/Vol]Or dered By: Dr. Betancur on 11-13-2022 MCHC (RBC) [Mass/Vol] 34.2 g/dL 32-36 [facility] No Panel InformationOrdered By: Dr. Betancur on 11-13-2022 Estimated Creatinine Clearance Calc 35.38 ml/min [facility] Estimated GFR (MDRD) Amer 103 mL/min >60 [facility] Comment on above: GFR Calc Estimated GFR (MDRD) Non-Af Amer 85 mL/min >60 [facility] Comment on above: Non- GFR Calc Thyroid Stimulating Hormone (TSH) 1.14 uIU/mL 0.358-3.74 [facility] Total Iron Binding Capacity 214 ug/dL 250-450 [facility] Platelets bldOrdered By: Dr. Betancur on 11-13-2022 Platelets (Bld) [#/Vol] 370 10*3/uL 150-450 [facility] Serum or plasma albumin karri urement (mass/volume)Ordered By: Dr. Betancur on 11-13-2022 Albumin [Mass/Vol] 2.8 g/dL 3.2-5.0 [facility] Serum or plasma calcium karri urement (mass/volume)Ordered By: Dr. Betancur on 11-13-2022 Calcium [Mass/Vol] 8.3 mg/dL 8.5-10.1 [facility] Serum or plasma creatinine m easurement (mass/volume)Ordered By: Dr. Betancur on 11-13-2022 Creatinine [Mass/Vol] 0.70 mg/dL 0.55-1.02 [facility] Comment on above: The validity of the calculated GFR & GFRAA in patients over 70 years has not been determined. Clinical correlation is essential. Serum or plasma ferritin jolanta surement (mass/volume)Ordered By: Dr. Betancur on 11-13-2022 Ferritin [Mass/Vol] 195 ng/mL 8-252 [facility] Serum or plasma urea nitroge n measurement (mass/volume)Ordered By: Dr. Betancur on 11-13-2022 Urea nitrogen [Mass/Vol] 12 mg/dL 7-18 [facility] Thin prep Papanicolaou smear with manual screeningOrdered By: Dr. Betancur on 11-13-2022 Thin prep Papanicolaou smear with manual screening 16 U/L 15-37 [facility] Thin prep Papanicolaou smear with manual screening 3 5-15 [facility] Glucose Glucometer (BldC) [M ass/Vol]Ordered By: Dr. Brody on 11-12-2022 Glucose [Mass/Vol] 121 mg/dL 74-106 [facility] Comment on above: MANAGEMENT OF PATIEN T CARE PER NURSING PROTOCOL No Panel InformationOrdered By: Dr. Brody on 11-12-2022 Vitamin D 25-Hydroxy 43.8 ng/mL [facility] Comment on above: Vitamin D 25(OH) Sta tus Range Deficiency <20 ng/mL (50nmol/L) Insufficiency 20 - 30 ng/mL (50 - 75 nmol/L) Sufficiency 30 - 100 ng/mL (75 - 250 nmol/L) Toxicity >100 ng/mL (>250 nmol/L) Serum or plasma cortisol jolanta surement (mass/volume)Ordered By: Dr. Brody on 11-12-2022 Cortisol [Mass/Vol] 28.20 ug/dL 3.44-22.45 [facility] Comment on above: Adult (AM) 5.27 - 22 .45 ug/dL Adult (PM) 3.44 - 16.76 ug/dLPlease note revised CORTISOL reference range effective 2019. Whole blood hemoglobin A1c/t otal hemoglobin ratio (mass fraction)Ordered By: Dr. Betancur on 11-12-2022 HbA1c (Bld) [Mass fraction] 7.0 % 3.8-5.6 [facility] Comment on above: Normal < 5.7 % Predi abetic 5.7 - 6.4 % Diabetic >or= 6.5 % Please note range changes. Absolute lymphocyte countOrd ered By: Dr. Ewing on 11-11-2022 Lymphocytes Auto (Unsp spec) [#/Vol] 4.35 10*3/uL 0.83-4.51 [facility] Basophil percentageOrdered B y: Dr. Ewing on 11-11-2022 Basophil percentage 0 SEEN /hpf 0-5 [facility] Ammonia (P) [Moles/Vol] 16.0 umol/L 11-32 [facility] Basophils/100 WBC (Bld) 0.6 % 0-1 [facility] Bilirubin [Mass/Vol] 1.90 mg/dL 0.20-1.00 [facility] Comment on above: For patients on eltr ombopag therapy, use of Dimension [place] TBIL is not recommended. Chloride [Moles/Vol] 91 mmol/L 98-107 [facility] Eosinophils/100 WBC (Bld) 0.9 % 0-5 [facility] Glucose [Mass/Vol] 159 mg/dL 74-106 [facility] Comment on above: Fasting Glucose resu lt greater than or equal to 126 mg/dL suggests DIABETES MELLITUS per A.D.A. criteria. Neutrophils (Bld) [#/Vol] 8.3 10*3/uL 2.0-7.7 [facility] Neutrophils/100 WBC (Bld) 59.4 % 47-70 [facility] Potassium [Moles/Vol] 3.4 mmol/L 3.5-5.1 [facility] Protein [Mass/Vol] 7.4 g/dL 6.4-8.2 [facility] Sodium [Moles/Vol] 127 mmol/L 136-145 [facility] WBC (Bld) [#/Vol] 13.9 10*3/uL 4.4-11.0 [facility] Bilirubin Test strip Ql (U)O rdered By: Dr. Ewing on 11-11-2022 Bilirubin Ql (U) Negative Negative [facility] Blood erythrocytes count (nu mber/volume)Ordered By: Dr. Ewing on 11-11-2022 RBC (Bld) [#/Vol] 4.23 10*6/uL 4.2-5.4 [facility] Blood hemoglobin measurement (mass/volume)Ordered By: Dr. Ewing on 11-11-2022 Hemoglobin (Bld) [Mass/Vol] 13.5 g/dL 12.0-15.0 [facility] Blood lymphocytes/100 leukoc ytesOrdered By: Dr. Ewing on 11-11-2022 Lymphocytes/100 WBC (Bld) 31.3 % 19-41 [facility] Blood monocytes/100 leukocyt esOrdered By: Dr. Ewing on 11-11-2022 Monocytes/100 WBC (Bld) 7.4 % 0-10 [facility] Blood platelet mean volumeOr dered By: Dr. Ewing on 11-11-2022 Platelet mean volume (Bld) [Entitic vol] 8.8 fL 6.2-12.0 [facility] Determination of erythrocyte mean corpuscular volume (MCV)Ordered By: Dr. Ewing on 11-11-2022 MCV (RBC) [Entitic vol] 88.7 fL 81-99 [facility] Direct bilirubinOrdered By: Dr. Ewing on 11-11-2022 Bilirubin.direct [Mass/Vol] 0.47 mg/dL 0.00-0.30 [facility] Hematocrit Auto (Bld) [Volum e fraction]Ordered By: Dr. Ewing on 11-11-2022 Hematocrit (Bld) [Volume fraction] 37.5 % 37-47 [facility] Ketones Test strip Ql (U)Ord ered By: Dr. Ewing on 11-11-2022 Ketones Ql (U) 5 mg/dl Negative [facility] Laboratory - Chemistry and C hemistry - challengeOrdered By: Dr. Brody on 11-11-2022 Sodium (U) [Moles/Vol] 8 mmol/L Not Establ. [facility] Magnesium [Mass/Vol] 1.6 mg/dL 1.6-2.6 [facility] Laboratory - Chemistry and C hemistry - challengeOrdered By: Dr. Ewing on 11-11-2022 ALP [Catalytic activity/Vol] 45 U/L 45-117 [facility] ALT [Catalytic activity/Vol] 30 U/L 13-56 [facility] CO2 [Moles/Vol] 28.0 mmol/L 21.0-32.0 [facility] Globulin (S) [Mass/Vol] 3.5 g/dL 2.2-4.2 [facility] Urea nitrogen/Creatinine [Mass ratio] 16.2 mg/mg 10-20 [facility] Laboratory - Hematology and Cell countsOrdered By: Dr. Ewing on 11-11-2022 Erythrocyte distribution width (RBC) [Entitic vol] 39.2 fL 35.1-43.9 [facility] Erythrocyte distribution width (RBC) [Ratio] 12.0 % 11.6-14.6 [facility] Immature granulocytes/100 WBC (Bld) 0.400 % 0.0-0.9 [facility] Comment on above: IG% - Immature Granu locytes (promyelocytes, myelocytes and metamyelocytes) > 1% indicates that a LEFT SHIFT is Present. MCH (RBC) [Entitic mass] 31.9 pg 27.0-32.0 [facility] Nucleated RBC/100 WBC (Bld) [Ratio] 0 % 0-5 [facility] MCHC Auto (RBC) [Mass/Vol]Or dered By: Dr. Ewing on 11-11-2022 MCHC (RBC) [Mass/Vol] 36.0 g/dL 32-36 [facility] Mucus LM Ql (Urine sed)Order ed By: Dr. Ewing on 11-11-2022 Mucus Ql (Urine sed) 0 SEEN /hpf [facility] Nitrite Test strip Ql (U)Ord ered By: Dr. Ewing on 11-11-2022 Nitrite Ql (U) Negative Negative [facility] No Panel InformationOrdered By: Dr. Ewing on 11-11-2022 Estimated Creatinine Clearance Calc 27.90 ml/min [facility] Estimated GFR (MDRD) Amer 50 mL/min >60 [facility] Comment on above: GFR Calc Estimated GFR (MDRD) Non-Af Amer 41 mL/min >60 [facility] Comment on above: Non- GFR Calc Troponin I High Sensitivity 13 pg/mL 3.0-54.0 [facility] Comment on above: Please Note: New Denia t Units and Gender Specific Reference Ranges. For more information see Policy Stat Procedure [place] High Sensitivity Troponin (TNIH) and attachments. Platelets bldOrdered By: Dr. Ewing on 11-11-2022 Platelets (Bld) [#/Vol] 506 10*3/uL 150-450 [facility] Protein Test strip Ql (U)Ord ered By: Dr. Ewing on 11-11-2022 Protein Ql (U) Negative Negative [facility] Serum or plasma albumin karri urement (mass/volume)Ordered By: Dr. Ewing on 11-11-2022 Albumin [Mass/Vol] 3.9 g/dL 3.2-5.0 [facility] Serum or plasma calcium karri urement (mass/volume)Ordered By: Dr. Ewing on 11-11-2022 Calcium [Mass/Vol] 9.9 mg/dL 8.5-10.1 [facility] Serum or plasma creatinine m easurement (mass/volume)Ordered By: Dr. Ewing on 11-11-2022 Creatinine [Mass/Vol] 1.30 mg/dL 0.55-1.02 [facility] Comment on above: The validity of the calculated GFR & GFRAA in patients over 70 years has not been determined. Clinical correlation is essential. Serum or plasma urea nitroge n measurement (mass/volume)Ordered By: Dr. Ewing on 11-11-2022 Urea nitrogen [Mass/Vol] 21 mg/dL 7-18 [facility] Serum or plasma uric acid me asurement (mass/volume)Ordered By: Dr. Brody on 11-11-2022 Urate [Mass/Vol] 4.3 mg/dL 2.6-6.0 [facility] Comment on above: The drugs N-Acetylcy steine and Metamizole may falsely depress this assay. Squamous epithelial cells de tection in urine sediment by light microscopyOrdered By: Dr. Ewing on 11-11-2022 Epithelial cells.squamous LM Ql (Urine sed) 0 SEEN /hpf 5-10 [facility] Thin prep Papanicolaou smear with manual screeningOrdered By: Dr. Brody on 11-11-2022 Thin prep Papanicolaou smear with manual screening 277 mOsm/KG 280-301 [facility] Thin prep Papanicolaou smear with manual screeningOrdered By: Dr. Ewing on 11-11-2022 Thin prep Papanicolaou smear with manual screening 25 U/L 15-37 [facility] Thin prep Papanicolaou smear with manual screening 8 5-15 [facility] Urine blood detectionOrdered By: Dr. Ewing on 11-11-2022 RBC Ql (U) Negative Negative [facility] RBC Ql (U) 0 SEEN /hpf 0-5 [facility] Urine clarityOrdered By: Dr. Ewing on 11-11-2022 Clarity (U) Clear Clear [facility] Urine color determinationOrd ered By: Dr. Ewing on 11-11-2022 Color (U) Yellow Yellow [facility] Urine glucose detectionOrder ed By: Dr. Ewing on 11-11-2022 Glucose Ql (U) Normal mg/dl Normal [facility] Urine leukocyte esterase det ection by dipstickOrdered By: Dr. Ewing on 11-11-2022 Leukocyte esterase Test strip Ql (U) Negative Negative [facility] Urine osmolality measurement Ordered By: Dr. Brody on 11-11-2022 Osmolality (U) [Osmolality] 227 mOsm/KG >50 [facility] Comment on above: Normal Urine Referen ce Ranges Random: 50 - 1200 mOsm/kg H20 depending on fluid intake Random: >850 mOsm/kg after 12 hour fluid restriction 24 hour: ~300 - 900 mOsm/kg H2O Urine pHOrdered By: Dr. Atiya bender on 11-11-2022 pH (U) 6.0 [pH] 5.0 - 8.0 [facility] Urine sediment bacteria coun t by microscopy (number/high power field)Ordered By: Dr. Ewing on 11-11-2022 Bacteria LM.HPF (Urine sed) [#/Area] 0 /[HPF] None Seen [facility] Urine specific gravity measu rementOrdered By: Dr. Ewing on 11-11-2022 Specific gravity (U) [Rel density] 1.010 1.002-1.030 [facility] Urobilinogen Auto test strip Ql (U)Ordered By: Dr. Ewing on 11-11-2022 Urobilinogen Ql (U) Normal mg/dl Normal [facility] Vital Signs Date Time Vital Sign Value Performing Clinician Paulo cerda 11-04-2024 03:00-0400 Respiratory rate 16 /min Dr. Pete Payne MD Work Phone: [facility] 11-04-2024 00:21-0400 Body temperature 98.2 [degF] Dr. Pete Payne MD Work Phone: [facility] 11-04-2024 00:21-0400 Diastolic blood pressure 60 mm[Hg] Dr. Pete Payne MD Work Phone: [facility] 11-04-2024 00:21-0400 Heart rate 84 /min Dr. Pete Payne MD Work Phone: [facility] 11-04-2024 00:21-0400 SaO2% (BldA) [Mass fraction] 97 % Dr. Pete Payne MD Work Phone: [facility] 11-04-2024 00:21-0400 Systolic blood pressure 143 mm[Hg] Dr. Pete Payne MD Work Phone: [facility] 11-03-2024 21:08-0400 Body height 147.[address] Pete Payne MD Work Phone: [facility] 11-03-2024 21:08-0400 Body mass index (BMI) [Ratio] 29.4 kg/m2 Dr. Pete Payne MD Work Phone: [facility] 11-03-2024 21:08-0400 Body weight 63.[address] Pete Payne MD Work Phone: [facility] 07-25-2023 13:00-0500 Body temperature 97.7 [degF] Dr. Pete Payne Work Phone: [facility] 07-25-2023 13:00-0500 Diastolic blood pressure 74 mm[Hg] Dr. Pete Payne Work Phone: [facility] 07-25-2023 13:00-0500 Heart rate 86 /min Dr. Pete Payne Work Phone: [facility] 07-25-2023 13:00-0500 Respiratory rate 16 /min Dr. Pete Payne Work Phone: [facility] 07-25-2023 13:00-0500 SaO2% (BldA) [Mass fraction] 98 % Dr. Pete Payne Work Phone: [facility] 07-25-2023 13:00-0500 Systolic blood pressure 136 mm[Hg] Dr. Pete Payne Work Phone: [facility] 07-25-2023 08:00-0500 Body height 147.[address] Pete Payne Work Phone: [facility] 07-25-2023 08:00-0500 Body mass index (BMI) [Ratio] 29.2 kg/m2 Dr. Pete Payne Work Phone: [facility] 07-25-2023 08:00-0500 Body weight 63.[address] Pete Payne Work Phone: [facility] 01-20-2023 03:50-0400 Diastolic blood pressure 61 mm[Hg] Dr. Nancy Ewing Work Phone: [facility] 01-20-2023 03:50-0400 Heart rate 78 /min Dr. Nancy Ewing Work Phone: [facility] 01-20-2023 03:50-0400 Respiratory rate 18 /min Dr. Nancy Ewing Work Phone: [facility] 01-20-2023 03:50-0400 SaO2% (BldA) [Mass fraction] 97 % Dr. Nancy Ewing Work Phone: [facility] 01-20-2023 03:50-0400 Systolic blood pressure 146 mm[Hg] Dr. Nancy Ewing Work Phone: [facility] 01-20-2023 02:01-0400 Body height 147.[address] Nancy Ewing Work Phone: [facility] 01-20-2023 02:01-0400 Body mass index (BMI) [Ratio] 26.9 kg/m2 Dr. Nancy Ewing Work Phone: [facility] 01-20-2023 02:01-0400 Body temperature 97.5 [degF] Dr. Nancy Ewing Work Phone: 4(829)489-425489 [place] [address] 01-20-2023 02:01-0400 Body weight 58.[address] Nancy Ewing Work Phone: 2(761)039-967467 [address] 11-29-2022 09:42-0400 Heart rate 92 /min Dr. Nancy Ewing Work Phone: 0(003)381-877551 [place] [address] 11-29-2022 09:42-0400 Respiratory rate 16 /min Dr. Nancy Ewing Work Phone: 4(792)401-857451 [place] [address] 11-29-2022 09:42-0400 SaO2% (BldA) [Mass fraction] 97 % Dr. Nancy Ewing Work Phone: 2(080)605-966667 [address] 11-29-2022 09:41-0400 Body temperature 97.6 [degF] Dr. Nancy Ewing Work Phone: 7(826)779-718489 [place] [address] 11-29-2022 09:41-0400 Diastolic blood pressure 59 mm[Hg] Dr. Nancy wEing Work Phone: 3(828)051-014167 [address] 11-29-2022 09:41-0400 Systolic blood pressure 144 mm[Hg] Dr. Nancy Ewing Work Phone: 9(732)896-189067 [address] 11-28-2022 13:27-0400 Body temperature 97.1 [degF] Dr. Nancy Ewing Work Phone: 8(392)487-638589 [place] [address] 11-28-2022 13:27-0400 Diastolic blood pressure 61 mm[Hg] Dr. Nancy Ewing Work Phone: 6(074)221-607689 [place] [address] 11-28-2022 13:27-0400 Heart rate 65 /min Dr. Nancy Ewing Work Phone: 2(730)302-696389 [place] [address] 11-28-2022 13:27-0400 Respiratory rate 16 /min Dr. Nancy Ewing Work Phone: 7(732)584-833851 [place] [address] 11-28-2022 13:27-0400 SaO2% (BldA) [Mass fraction] 95 % Dr. Nancy Ewing Work Phone: 8(631)380-513751 [place] [address] 11-28-2022 13:27-0400 Systolic blood pressure 133 mm[Hg] Dr. Nancy Ewing Work Phone: 7(450)173-705951 [place] [address] 11-26-2022 14:37-0400 Body height 147.[address] Nancy Ewing Work Phone: 4(744)378-174551 [place] [address] 11-26-2022 14:37-0400 Body weight 54.[address] Nancy Ewing Work Phone: 1(668)673-335451 [place] [address] 11-25-2022 12:48-0400 Body mass index (BMI) [Ratio] 25 kg/m2 Dr. Nancy Ewing Work Phone: 8(591)769-000151 [place] [address] 11-13-2022 14:35-0400 Body temperature 98 [degF] Dr. Nancy Ewing Work Phone: 7(658)482-467551 [place] [address] 11-13-2022 14:35-0400 Diastolic blood pressure 48 mm[Hg] Dr. Nancy Ewing Work Phone: 6(480)529-269951 [place] [address] 11-13-2022 14:35-0400 Heart rate 71 /min Dr. Nancy Ewing Work Phone: 2(220)326-286451 [place] [address] 11-13-2022 14:35-0400 Respiratory rate 18 /min Dr. Nancy Ewing Work Phone: 0(130)270-686751 [place] [address] 11-13-2022 14:35-0400 SaO2% (BldA) [Mass fraction] 100 % Dr. Nancy Ewing Work Phone: 9(344)840-729351 [place] [address] 11-13-2022 14:35-0400 Systolic blood pressure 123 mm[Hg] Dr. Nancy Ewing Work Phone: 8(043)944-164951 [place] [address] 11-12-2022 12:32-0400 Body height 147.[address] Nancy Ewing Work Phone: 2(607)503-235351 [place] [address] 11-12-2022 12:32-0400 Body weight 55.[address] Nancy Ewing Work Phone: 7(840)136-113351 [place] [address] 11-11-2022 22:57-0400 Body mass index (BMI) [Ratio] 25.5 kg/m2 Dr. Nancy Ewing Work Phone: 0(229)558-353351 [place] [address] 11-11-2022 21:44-0400 Body temperature 97.8 [degF] Dr. Nancy Ewing Work Phone: 4(549)376-714951 [place] [address] 11-11-2022 21:44-0400 Diastolic blood pressure 60 mm[Hg] Dr. Nancy Ewing Work Phone: 0(692)360-832351 [place] [address] 11-11-2022 21:44-0400 Heart rate 75 /min Dr. Nancy Ewing Work Phone: 4(203)968-193651 [place] [address] 11-11-2022 21:44-0400 Respiratory rate 17 /min Dr. Nancy Ewing Work Phone: 4(673)169-450151 [place] [address] 11-11-2022 21:44-0400 SaO2% (BldA) [Mass fraction] 100 % Dr. Nancy Ewing Work Phone: 2(512)137-681451 [place] [address] 11-11-2022 21:44-0400 Systolic blood pressure 134 mm[Hg] Dr. Nancy Ewing Work Phone: 6(882)634-591551 [place] [address] 11-11-2022 16:37-0400 Body height 147.[address] Nancy Ewing Work Phone: 9(998)356-724151 [place] [address] 11-11-2022 16:37-0400 Body mass index (BMI) [Ratio] 26.2 kg/m2 Dr. Nancy Ewing Work Phone: [phone] [place] [address] 11-11-2022 [id number] Body weight 56.[address] Nancy Ewing Work Phone: [facility] Encounters Encounter Date Encounter Type Care Provider Facility Start: 12-13-2024 ambulatory Pete Payne Facili ty:[facility] Start: 11-22-2024 End: 11-22-2024 ambulatory Pete Beltrane Facility:[facility] Start: 11-14-2024 End: 11-14-2024 ambulatory Pete Beltrane OLS Facility:[facility] Start: 11-03-2024 End: 11-04-2024 Emergency department patient visit Dr. Pete Payne MD Work Phone: -Emergency Department Work Phone: Start: 10-21-2024 End: 10-21-2024 ambulatory Pete Payne Facility:[facility] Start: 10-17-2024 End: 10-17-[address] Pete Payne MD Work Phone: [facility] Work Phone: Start: 10-17-2024 End: 10-17-2024 Departed Referred Pete Virk Start: 10-17-2024 Registered Referred Pete Virk Start: 10-17-2024 End: 10-17-2024 ambulatory Pete Payne OLS Facility:[facility] Start: 10-10-2024 End: 10-10-[address] Pete Payne MD Work Phone: [facility] Work Phone: Start: 10-10-2024 End: 10-10-2024 Departed Referred Pete Virk Start: 10-10-2024 Registered Referred Pete Virk Start: 10-10-2024 End: 10-10-2024 ambulatory Celestegeena Payne OLS Facility:[facility] Start: 10-06-2024 End: 10-06-[address] Pete Payne MD Work Phone: [facility] Work Phone: Start: 10-06-2024 End: 10-06-2024 Departed Referred Pete Virk Start: 10-06-2024 Registered Referred Pete Virk Start: 10-06-2024 End: 10-06-2024 ambulatory Efalexisanne ROBERTS Facility:[facility] Start: 10-03-2024 End: 10-03-[address] Pete Payne MD Work Phone: [facility] Work Phone: Start: 10-03-2024 End: 10-03-2024 Departed Referred Pete Virk Start: 10-03-2024 End: 10-03-2024 ambulatory Efalexisanne Payne OLS Facility:[facility] Start: 09-20-2024 End: 09-20-2024 ambulatory Efterezabe Devine Facility:[facility] Start: 09-20-2024 End: 09-20-[address] Pete Payne MD -[facility] Work Phone: Start: 09-01-2024 End: 09-01-2024 ambulatory Efgeena Beltrane Facility:[facility] Start: 09-01-2024 End: 09-01-2024 Patient encounter procedure Mateo CRANDALL -[facility] Work Phone: Start: 08-23-2024 ambulatory Efgeena Payne OLS Fa cility:[facility] Start: 08-23-2024 Registered Referred Pete Virk Start: 07-11-2024 End: 07-11-2024 Departed Referred Pete Virk Start: 07-11-2024 End: 07-11-2024 ambulatory Efewongbe Oleghe OLS Facility:[facility] Start: 06-21-2024 End: 06-21-2024 ambulatory Efewongbe Oleghe Facility:[facility] Start: 06-21-2024 End: 06-21-2024 Patient encounter procedure Poppy Mccracken MARINE MECHANIC-C -[facility] Work Phone: Start: 05-31-2024 End: 05-31-2024 ambulatory Efewongbe Oleghe Facility:[facility] Start: 05-30-2024 End: 05-30-2024 ambulatory Efewongbe Oleghe OLS Facility:[facility] Start: 05-24-2024 End: 05-24-2024 ambulatory Efewongbe Oleghe OLS Facility:[facility] Start: 05-03-2024 End: 05-03-2024 ambulatory Poppy Mccracken MARINE MECHANIC Facility:[facility] Start: 04-18-2024 End: 04-18-2024 ambulatory Efewongbe Oleghe OLS Facility:[facility] Start: 03-22-2024 End: 03-22-2024 ambulatory Efewongbe Oleghe Facility:[facility] Start: 03-07-2024 End: 03-07-2024 ambulatory Efewongbe Oleghe OLS Facility:[facility] Start: 03-03-2024 End: 03-03-2024 ambulatory Poppy Mccracken MARINE MECHANIC Facility:[facility] Start: 02-25-2024 End: 02-25-2024 ambulatory Efewongbe Oleghe Facility:[facility] Start: 02-23-2024 End: 02-23-2024 ambulatory Efewongbe Oleghe OLS Facility:[facility] Start: 02-17-2024 End: 02-17-2024 ambulatory Efewongbe Oleghe Facility:[facility] Start: 01-26-2024 End: 01-26-2024 ambulatory Efewongbe Oleghe Facility:[facility] Start: 01-25-2024 End: 01-25-2024 ambulatory Efewongbe Oleghe OLS Facility:[facility] Start: 01-07-2024 End: 01-08-2024 ambulatory Efewongbe Oleghe Facility:[facility] Start: 12-23-2023 End: 12-23-2023 ambulatory Pete Loepz:[facility] Start: 08-25-2023 End: 08-25-[address] Pete Payne Work Phone: [facility] Work Phone: Start: 08-25-2023 End: 08-25-[address] Pete Payne Work Phone: [facility] Start: 07-25-2023 End: 07-25-2023 Emergency department patient visit Dr. Pete Pyane Work Phone: [facility]-Emergency Department Work Phone: Start: 07-02-2023 End: 07-02-[address] Pete Payne Work Phone: [facility] Work Phone: Start: 06-02-2023 End: 06-02-[address] Pete Payne Work Phone: [facility] Work Phone: Start: 05-04-2023 End: 05-04-[address] Pete Payne Work Phone: [facility] Work Phone: Start: 03-31-2023 End: 03-31-[address] Pete Payne Work Phone: [facility] Work Phone: Start: 03-16-2023 End: 03-16-[address] Pete Payne Work Phone: [facility] Work Phone: Start: 03-16-2023 End: 03-16-[address] Pete Payne Work Phone: [facility] Start: 03-16-[address] Madison Payne Work Phone: [facility] Start: 03-14-2023 End: 03-14-[address] Pete Payne Work Phone: [facility] Work Phone: Start: 03-12-2023 End: 03-12-[address] Pete Payne Work Phone: [facility] Work Phone: Start: 03-12-2023 End: 03-12-[address] Pete Payne Work Phone: [facility] Start: 01-27-2023 End: 01-27-[address] Pete Payne Work Phone: [facility] Work Phone: Start: 01-20-2023 End: 01-20-2023 Emergency department patient visit Dr. Nancy Ewing Work Phone: [facility]-Emergency Department Work Phone: Start: 12-23-2022 End: 12-23-[address] Pete Payne Work Phone: [facility] Work Phone: Start: 12-02-2022 End: 12-02-[address] Nancy Ewing Work Phone: [facility] Work Phone: Start: 12-01-2022 End: 12-01-[address] Nancy Ewing Work Phone: [facility] Work Phone: Start: 12-01-2022 End: 12-01-[address] [facility] Start: 11-24-2022 End: 11-24-[address] Nancy Ewing Work Phone: [facility] Work Phone: Start: 11-24-2022 End: 11-24-[address] Nancy Ewing Work Phone: [facility]-Cat [facility] Start: 11-13-2022 End: 11-29-2022 Evaluation and management of inpatient Dr. Nancy Ewing Work Phone: [facility]-Transitional Care Unit Start: 11-13-2022 Non-patient / Non-visit Dr. Christophe Ewing Work Phone: [facility] Start: 11-12-2022 Non-patient / Non-visit Dr. Christophe Ewing Work Phone: [facility] Start: 11-11-2022 Non-patient / Non-visit Dr. Christophe Ewing Work Phone: [facility] Start: 11-11-2022 End: 11-13-2022 Evaluation and management of inpatient Dr. Nancy Ewing Work Phone: [facility]-Medical Surgical 3 Procedures Date Procedure Procedure Detail Performing Clinician Start: 11-03-2024 CT cervical spine wi thout contrast Dr. Pete Payne MD Work Phone: Start: 11-03-[address] Madison Payne MD Work Phone: Start: 11-03-2024 CT of head without contrast Dr. Pete Payne MD Work Phone: Start: 11-03-2024 Plain X-ray of shoulder Dr. Pete Payne MD Work Phone: Start: 07-25-2023 MRI of lower extremity Dr. Pete Payne Work Phone: Start: 07-25-2023 Plain x-ray of pelvi s and lower extremity Dr. Pete Payne Work Phone: Start: 07-25-2023 CT cervical spine wi thout contrast Dr. Pete Payne Work Phone: Start: 07-25-2023 CT of head without contrast Dr. Pete Payne Work Phone: Start: 07-25-2023 Radiologic examinati on of knee Dr. Pete Payne Work Phone: Start: 01-20-2023 CT cervical spine wi thout contrast Dr. Nancy Ewing Work Phone: Start: 01-20-2023 CT of head without contrast Dr. Nancy Ewing Work Phone: Start: 01-20-2023 Pelvis X-ray Dr. Ortega Ewing Work Phone: Start: 01-20-2023 Plain X-ray of shoulder Dr. Nancy Ewing Work Phone: Start: 01-20-2023 Radiologic examinati on of knee Dr. Nancy Ewing Work Phone: Start: 11-24-2022 CT of head without contrast Dr. Nancy Ewing Work Phone: Start: 11-24-2022 Diagnostic radiograp hy of abdomen Dr. Nancy Ewing Work Phone: Start: 11-16-2022 Diagnostic radiograp hy of abdomen Dr. Nancy Ewing Work Phone: Start: 11-16-[address] Nancy Ewing Work Phone: Start: 11-14-[address] Doreen Ewing Work Phone: Start: 11-13-[address] Nancy Ewing Work Phone: Start: 11-11-2022 CT of abdomen and pe lvis without contrast Dr. Nancy Ewing Work Phone: Start: 11-11-2022 Plain chest X-ray Dr. Hernando Ewing Work Phone: Start: 11-11-2022 CT of head without contrast Dr. Nancy Ewing Work Phone: Urine culture Dr. Nancy allred Work Phone: Plan of Treatment Date Care Activity Detail Author Start: 11-04-2024 [facility] Start: 07-25-2023 [facility] Start: 01-02-2023 Blood chemistry [facility] Start: 12-26-2022 Blood chemistry [facility] Start: 12-19-2022 Blood chemistry [facility] Start: 12-12-2022 Blood chemistry [facility] Start: 12-05-2022 Blood chemistry [facility] Start: 11-29-2022 Patient discharge [facility] Start: 11-28-2022 Development of care plan [facility] Start: 11-20-2022 [facility] Start: 11-20-2022 [facility] Start: 11-19-2022 Palliative care [facility] Start: 11-19-2022 [facility] Start: 11-18-2022 [facility] Start: 11-17-2022 [facility] Start: 11-16-2022 [facility] Start: 11-15-2022 [facility] Start: 11-14-2022 Developing a treatment plan [facility] Start: 11-14-2022 Speech therapy management [facility] Start: 11-14-2022 Development of care plan [facility] Start: 11-14-2022 End: 11-14-[address] [facility] Start: 11-13-2022 Patient referral to dietitian [facility] Start: 11-13-2022 Speech therapy assessment [facility] Start: 11-13-2022 Following clinical p athway protocol [facility] Start: 11-13-2022 Admission procedure [facility] Start: 11-13-2022 Measuring intake and output [facility] Start: 11-13-2022 Patient referral to dietitian [facility] Start: 11-13-2022 Referral to occupational therapist [facility] Start: 11-13-2022 Referral to service [facility] Start: 11-13-2022 Verification routine [facility] Start: 11-13-2022 Vital signs measurements [facility] Start: 11-13-2022 [facility] Start: 11-13-2022 Patient discharge [facility] Start: 11-12-2022 Vitamin D, 25-hydroxy measurement [facility] Start: 11-12-2022 [facility] Start: 11-12-2022 Patient referral to dietitian [facility] Start: 11-11-2022 Blood chemistry [facility] Start: 11-11-2022 Following clinical p athway protocol [facility] Start: 11-11-2022 Assessment of risk o f venous thromboembolism [facility] Start: 11-11-2022 Insertion of cathete r into peripheral vein [facility] Start: 11-11-2022 Oxygen therapy [facility] Start: 11-11-2022 Providing care accor ding to standard [facility] Start: 11-11-2022 Provision of activity privileges [facility] Start: 11-11-2022 Referral to occupational therapist [facility] Start: 11-11-2022 Referral to service [facility] Start: 11-11-2022 [facility] Start: 11-11-2022 Verification routine [facility] Start: 11-11-2022 Admission procedure [facility] Start: 11-11-2022 Patient referral to dietitian [facility] Alanine aminotransfe rase [Enzymatic activity/volume] in Serum or Plasma [facility] Albumin [Mass/volume ] in Serum or Plasma [facility] Alkaline phosphatase [Enzymatic activity/volume] in Serum or Plasma [facility] Anion gap measurement [facility] Anion gap measurement [facility] Anion gap measurement [facility] Anion gap measurement [facility] Anion gap measurement [facility] Anion gap measurement [facility] Aspartate aminotrans ferase [Enzymatic activity/volume] in Serum or Plasma [facility] Bilirubin, total measurement [facility] Bilirubin.direct [Ma ss/volume] in Serum or Plasma [facility] BUN/Creatinine ratio [facility] BUN/Creatinine ratio [facility] BUN/Creatinine ratio [facility] BUN/Creatinine ratio [facility] BUN/Creatinine ratio [facility] BUN/Creatinine ratio [facility] Calcium [Mass/volume ] in Serum or Plasma [facility] Calcium [Mass/volume ] in Serum or Plasma [facility] Calcium [Mass/volume ] in Serum or Plasma [facility] Calcium [Mass/volume ] in Serum or Plasma [facility] Calcium [Mass/volume ] in Serum or Plasma [facility] Calcium [Mass/volume ] in Serum or Plasma [facility] Carbon dioxide, tota l [Moles/volume] in Serum or Plasma [facility] Carbon dioxide, tota l [Moles/volume] in Serum or Plasma [facility] Carbon dioxide, tota l [Moles/volume] in Serum or Plasma [facility] Carbon dioxide, tota l [Moles/volume] in Serum or Plasma [facility] Carbon dioxide, tota l [Moles/volume] in Serum or Plasma [facility] Carbon dioxide, tota l [Moles/volume] in Serum or Plasma [facility] Chloride [Moles/volu me] in Serum or Plasma [facility] Chloride [Moles/volu me] in Serum or Plasma [facility] Chloride [Moles/volu me] in Serum or Plasma [facility] Chloride [Moles/volu me] in Serum or Plasma [facility] Chloride [Moles/volu me] in Serum or Plasma [facility] Chloride [Moles/volu me] in Serum or Plasma [facility] Cortisol [Mass/volum e] in Serum or Plasma [facility] Creatinine [Moles/vo lume] in Serum or Plasma [facility] Creatinine [Moles/vo lume] in Serum or Plasma [facility] Creatinine [Moles/vo lume] in Serum or Plasma [facility] Creatinine [Moles/vo lume] in Serum or Plasma [facility] Creatinine [Moles/vo lume] in Serum or Plasma [facility] Creatinine [Moles/vo lume] in Serum or Plasma [facility] Glucose [Mass/volume ] in Serum or Plasma [facility] Glucose [Mass/volume ] in Serum or Plasma [facility] Glucose [Mass/volume ] in Serum or Plasma [facility] Glucose [Mass/volume ] in Serum or Plasma [facility] Glucose [Mass/volume ] in Serum or Plasma [facility] Glucose [Mass/volume ] in Serum or Plasma [facility] Hematocrit [Volume F raction] of Blood [facility] Hematocrit [Volume F raction] of Blood [facility] Hematocrit [Volume F raction] of Blood [facility] Hematocrit [Volume F raction] of Blood [facility] Hematocrit [Volume F raction] of Blood [facility] Hematocrit [Volume F raction] of Blood [facility] Hemoglobin [Mass/volume] in Blood [facility] Hemoglobin [Mass/volume] in Blood [facility] Hemoglobin [Mass/volume] in Blood [facility] Hemoglobin [Mass/volume] in Blood [facility] Hemoglobin [Mass/volume] in Blood [facility] Hemoglobin [Mass/volume] in Blood [facility] Leukocytes [#/volume] in Blood [facility] Leukocytes [#/volume] in Blood [facility] Leukocytes [#/volume] in Blood [facility] Leukocytes [#/volume] in Blood [facility] Leukocytes [#/volume] in Blood [facility] Leukocytes [#/volume] in Blood [facility] Magnesium [Mass/volu me] in Serum or Plasma [facility] Mean corpuscular hem oglobin concentration determination [facility] Mean corpuscular hem oglobin concentration determination [facility] Mean corpuscular hem oglobin concentration determination [facility] Mean corpuscular hem oglobin concentration determination [facility] Mean corpuscular hem oglobin concentration determination [facility] Mean corpuscular hem oglobin concentration determination [facility] Mean corpuscular hem oglobin determination [facility] Mean corpuscular hem oglobin determination [facility] Mean corpuscular hem oglobin determination [facility] Mean corpuscular hem oglobin determination [facility] Mean corpuscular hem oglobin determination [facility] Mean corpuscular hem oglobin determination [facility] Measurement of renal function [facility] Measurement of renal function [facility] Measurement of renal function [facility] Measurement of renal function [facility] Measurement of renal function [facility] Measurement of renal function [facility] Neutrophil count [facility] Neutrophil count [facility] Neutrophil count [facility] Neutrophil count [facility] Neutrophil count [facility] Neutrophil count [facility] Neutrophil percent d ifferential count [facility] Neutrophil percent d ifferential count [facility] Neutrophil percent d ifferential count [facility] Neutrophil percent d ifferential count [facility] Neutrophil percent d ifferential count [facility] Neutrophil percent d ifferential count [facility] Patient Education [facility] Work Phone: Patient referral [facility] Work Phone: Platelets [#/volume] in Blood [facility] Platelets [#/volume] in Blood [facility] Platelets [#/volume] in Blood [facility] Platelets [#/volume] in Blood [facility] Platelets [#/volume] in Blood [facility] Platelets [#/volume] in Blood [facility] Potassium [Moles/vol ume] in Serum or Plasma [facility] Potassium [Moles/vol ume] in Serum or Plasma [facility] Potassium [Moles/vol ume] in Serum or Plasma [facility] Potassium [Moles/vol ume] in Serum or Plasma [facility] Potassium [Moles/vol ume] in Serum or Plasma [facility] Potassium [Moles/vol ume] in Serum or Plasma [facility] Red blood cell count [facility] Red blood cell count [facility] Red blood cell count [facility] Red blood cell count [facility] [place] Red blood cell count [facility] Red blood cell count [facility] Red cell distributio n width determination [facility] Red cell distributio n width determination [facility] [place] Red cell distributio n width determination [facility] [place] Red cell distributio n width determination [facility] [place] Red cell distributio n width determination [facility] [place] Red cell distributio n width determination [facility] [place] Sodium [Moles/volume ] in Serum or Plasma [facility] [place] Sodium [Moles/volume ] in Serum or Plasma [facility] Sodium [Moles/volume ] in Serum or Plasma [facility] Sodium [Moles/volume ] in Serum or Plasma [facility] Sodium [Moles/volume ] in Serum or Plasma [facility] Sodium [Moles/volume ] in Serum or Plasma [facility] Total protein measurement [facility] Urate [Mass/volume] in Serum or Plasma [facility] [place] Urea nitrogen [Mass/ volume] in Serum or Plasma [facility] [place] Urea nitrogen [Mass/ volume] in Serum or Plasma [facility] [place] Urea nitrogen [Mass/ volume] in Serum or Plasma [facility] [place] Urea nitrogen [Mass/ volume] in Serum or Plasma [facility] [place] Urea nitrogen [Mass/ volume] in Serum or Plasma [facility] [place] Urea nitrogen [Mass/ volume] in Serum or Plasma [facility] Immunizations Immunization Date Immunization Notes Care Provider [facility] 07-03-2022 Covid Pfizer Bivalen t Booster Dr. Nancy Ewing Work Phone: [facility] 06-06-2021 Covid (Pfizer) Dr. Nancy Ewing Work Phone: [facility] 08-16-2020 Covid (Pfizer) Dr. Nancy Ewing Work Phone: [facility] 07-26-2020 Covid (Pfizer) Dr. Nancy Ewing Work Phone: [facility] 07-20-2012 pneumococcal conjuga te vaccine, [address] Nancy Ewing Work Phone: [facility] 07-20-2001 pneumococcal vaccine , unspecified formulation Dr. Nancy Ewing Work Phone: [facility] Payers Date Payer Category Payer Medicaid [id number] 2023 Self-pay [id number] 2015 Private Health Insurance [id number] 2001 Medicare MEDICARE PART A B [id number] Unknown AARP MCR ADV [id number] Unknown [id number] 2.16.840.1.731486.3.579.2.462 Unknown [id number] 2.16.840.1.275967.3.579.2.462 Unknown [id number] 2.16.840.1.775302.3.579.2.462 Unknown [id number] 2.16.840.1.405626.3.579.2.462 Unknown [id number] 2.16.840.1.068627.3.579.2.462 Unknown [id number] 2.16.840.1.792731.3.579.2.462 Unknown [id number] 2.16.840.1.154526.3.579.2.462 Unknown [id number] 2.16.840.1.191363.3.579.2.462 Unknown [id number] 2.16.840.1.155177.3.579.2.462 Unknown [id number] 2.16.840.1.534391.3.579.2.462 Unknown [id number] 2.16.840.1.022363.3.579.2.462 Unknown [id number] 2.16.840.1.066303.3.579.2.462 Unknown [id number] 2.16.840.1.975297.3.579.2.462 Unknown [id number] 2.16840.1.989331.3.579.2.462 Unknown [id number] 2.16.840.1.407057.3.579.2.462 Unknown [id number] 2.16840.1.776005.3.579.2.462 Unknown [id number] 2.840.1.109378.3.579.2.462 Unknown [id number] 2.840.1.895348.3.579.2.462 Unknown [id number] 2.840.1.742587.3.579.2.462 Unknown [id number] 2.840.1.744791.3.579.2.462 Unknown [id number] 2.840.1.777042.3.579.2.462 Unknown [id number] 2.840.1.732003.3.579.2.462 Unknown [id number] 2.840.1.808380.3.579.2.462 Unknown [id number] 2.840.1.878598.3.579.2.462 Unknown [id number] 2.840.1.333736.3.579.2.462 Unknown [id number] 2.840.1.443553.3.579.2.462 Unknown [id number] 2.840.1.448640.3.579.2.462 Unknown [id number] 2.840.1.560872.3.579.2.462 Unknown [id number] 2.16840.1.527804.3.579.2.462 Unknown [id number] 2.840.1.459468.3.579.2.462 Social History Date Type Detail Facility Start: 11-11-2022 End: 07-25-2023 Tobacco smoking status NHIS Unknown if ever smoked [facility] Start: 11-11-2022 Rare [facility] Start: 11-11-2022 None [facility] Start: 11-11-2022 Homeless [facility] Start: 11-11-2022 Non-smoker [facility] Start: 1935 Sex Assigned At Female [facility] Start: 07-25-2023 End: 11-03-2024 Tobacco smoking status NHIS Never smoked tobacco (finding) [facility] Start: 10-19-2024 End: 11-08-2024 Sex Female (finding) [facility] Goals Date Patient Goal Desired Activity /State Functional Status Date Assessment Result Facility 11-29-2022 Functional status Ambulates [facility] Work Phone: 11-28-2022 Functional status Ambulates [facility] Work Phone: 11-13-2022 Functional status 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 [facility] Work Phone: Mental Status Date Assessment Result Facility 07-25-2023 Cognitive function Voice/Name [facility] Work Phone: 11-29-2022 Cognitive function Voice/Name [facility] Work Phone: 11-27-2022 Cognitive function Voice/Name [facility] Work Phone: 11-26-2022 Cognitive function Appropriate;Cooperativ e [facility] Work Phone: 11-13-2022 Cognitive function Voice/Name [facility] Work Phone: Clinical Notes 11-12-2022 to 11-04-2024 Note Date & Type Note Facility 11-04-2024 Discharge summary Note Date/Time November 04, 2024 12:36am [facility] Medical Records Department [address] [place] [address] Emergency Department Summary 11/03/24 MR#: [id number] Acct: [id number] Name: MAXIME AMARAL Rep #:[id number] : 1935 89 From: Alirio Patel PCP: Dr. Pete Payne MD Status:R EG ER Location: ED HPI HPI - Fall History of Present Illness Chief Complaint: Fall Informant: patient and family Narrative Narrative: Patient brought in by EMS from [facility] witnessed fall head injury. Patient history of dementia ambulatory per son. Mostly wheelchair, can weight-bear transfer. From paperwork gaited bowel with walking. Reports she did walk with a walker minimally a week ago. Reported getting off the commode she turneddown hitting her head on a radiator. No anticoagulants. She is DNR CC as of 2022 from paperwork. She has baseline per son. [facility] Medical History Dry eye syndrome of bilateral lacrimal glands Constipation Hyperlipidemia Hypokalemia CKD (chronic kidney disease) Weakness Depression, unspecified Alzheimer's disease, unspecified Hypertensive chronic kidney disease with stage 1 through stage 4 chronic kidney disease, or unspecified chronic kidney disease Type 2 diabetes mellitus with unspecified complications Hypothyroidism, unspecified GERD (gastroesophageal reflux disease) Home Medications ?Medication ?Instructions ?Recorded ?Last Taken ?Type metformin 500 mg tablet 500 mg PO DAILY DIABETES 07/24/23 History propranolol 20 mg tablet 20 mg PO DAILY tremors 11/1007/24/23 History levothyroxine 25 mcg tablet 25 mcg PO DAILY THYROID 07/24/23 History atorvastatin 10 mg tablet 10 mg PO QHS CHOLESTEROL 07/24/23 History cholecalciferol (vitamin D3) 1,250 1,250 mcg PO WE SUP PLEMENT 11/11/22 07/24/23 History mcg (50,000 unit) tablet raloxifene 60 mg tablet 60 mg PO DAILY Check with pr imary 11/12/22 07/24/23 [address] doctor bupropion HCl 150 mg 24 hr tablet, 150 mg PO DAILY moo d 11/13/22 07/24/23 History extended release food supplemt, lactose-reduced 120 ml PO 4X/DAY ensure 11/13/22 07/24/23 History 0.08 gram-1.5 kcal/mL oral liquid (Ensure Plus High Protein) acetaminophen 500 mg tablet 1,000 mg (2 x 500 mg) PO Q 6H PRN 11/26/22 Unknown Rx PRN Pain Score 1-10 #0 tabs donepezil 10 mg tablet 10 mg PO QHS #0 tabs 3 07/24/23 Rx mirtazapine 15 mg tablet 7.5 mg (1/2 x 15 mg) PO QHS #0 tabs 11/26/22 07/24/23 Rx citalopram 10 mg tablet (Celexa) 10 mg PO DAILY Unknown History Allergy/AdvReac Type Severity Reaction Status Date / Time Penicillins (PCN) AdvReac Diarrhea Verified 11/03/24 21:07 Family History Other Diabetes Surgical History H/O section History of bowel resection Social History housing: assisted living facility Smoking Status: Never smoker alcohol intake: never substance use type: does not use ROS ROS ED Constitutional Constitutional ED: Denies chills, fever(s) or sweats ENT ENT ED: Denies sore throat Cardiovascular Cardiovascular: Denies chest pain Respiratory/Chest Respiratory/Chest: Denies cough Gastrointestinal Gastrointestinal: Denies abdominal pain, diarrhea, nausea or vomiting Musculoskeletal Musculoskeletal: Denies back pain, extremity pain or neck pain Integumentary Reports wounds; Denies rash Neurologic Neurologic: Reports headache(s); Denies paresthesias or weakness EXAM Physical Exam Const Vital Signs: 11/03/24 21:08 11/03/24 21:16 11/03/24 23:07 Temperature 97.7 F L Temperature Source Oral Pulse Rate 80 88 Respiratory Rate 18 19 H Respiratory Effort Normal Non-Labored Respiratory Depth Normal Respiratory Pattern Normal Blood Pressure 136/61 H Blood Pressure Mean 86 Pulse Ox 95 97 Oxygen Delivery Method Room Air Room Air Room Air 11/04/24 00:21 Temperature 98.2 F Temperature Source Pulse Rate 84 Respiratory Rate 17 Respiratory Effort Respiratory Depth Respiratory Pattern Blood Pressure 143/60 H Blood Pressure Mean 87 Pulse Ox 97 Oxygen Delivery Method Positive well nourished and well developed Constitutional Narrative: GCS 15. General Appearance ED: well developed and NAD HEENT Reports moist mucous membranes HEENT Narrative: Laceration above right brow 4 cm controlled with pressure. normocephalic and atraumatic Eyes General Eye ED: Yes normal appearance of both eyes Neck full ROM Chest Wall inspection of chest normal and palpation of chest normal Chest: Negative for tenderness Resp normal respiratory effort and normal air movement Effort and Inspection: symmetric chest movement; Negative for respiratory distress Cardio regular rate, regular rhythm and no murmurs Peripheral Pulses: pulses 2+ throughout GI normal to inspection, nondistended, normoactive bowel sounds and non-tender Palpation: Negative for guarding or rebound tenderness present Extremity normal to inspection Extremity Narrative: Mild tenderness right proximal shoulder no deformities. No elbow tenderness. Soft compartments. No pain left upper extremity. Negative logroll of the lower extremities bilaterally. General Extremety ED: Yes tenderness; Negative for edema General Extremity: Negative for edema Neuro no sensory deficits noted Neuro Narrative: Alert to person and place. Told me the year is 1950. Sensorium / Orientation: awake and alert Skin no rashes or lesions noted and no wounds MDM MDM MDM Narrative Medical decision making narrative: Interventions / MDM: Differential diagnosis: Facial laceration, closed head injury, DNR CC, shoulder contusion Diagnosis considered but do not suspect: Fracture however x-ray and CT negative. Intracranial hemorrhage however CT negative. My EKG interpretation: N/A Imaging independently reviewed and interpreted by myself: CT brain/cervical spine/facial bones no intracranial hemorrhage no fractures also read by radiology. Right shoulder x-ray 3 views: No fracture or dislocation also read by radiology. External documents reviewed: N/A Test considered but not ordered:N/A ED course: Witnessed fall baseline dementia no anticoagulants. Head injury. Right proximal shoulder pain. Trauma scans head neck and face ordered. Right shoulder x-ray ordered. Patient declines any medications at this time. Trauma scans all negative. Preparation for laceration repair. Procedure note: Normal sterile conditions. Total of 2 cc 1% lidocaine used for local analgesia. After dressing removed there is full-thickness laceration noted. No gross foreign bodies noted. Cleanse with sterile saline. A total of7, 6-0 nylon simple interrupted sutures were placed with good approximation of the wound. Bacitracin placed over the wound. Patient tolerated the procedure well. Son updated on findings. She will be transported back to facility. Wound care at facility with sutures to removed in 5 to 7 days. All questions were answered. Re-evaluation: stable Disposition discussed with patient/family/significant other: Patient and son Case discussed with consulting clinician: N/A This note was generated with [employer] dictation software. It may contain incorrectwords, spelling, and punctuation that were not noted in checking the note beforesigning. Radiography Diagnostic Testing: Clinical Impression(s) from Imaging Studies Shoulder X-Ray 11/03/24 21:48 IMPRESSION: NO ACUTE FRACTURE OR DISLOCATION. Reading Location: [facility] Brain CT 11/03/24 22:10 IMPRESSION: CHRONIC CHANGES. NO ACUTE FINDINGS. Reading Location: [facility] Cervical Spine CT 11/03/24 22:10 IMPRESSION: NO ACUTE CERVICAL FRACTURE. DEGENERATIVE CHANGES. No acute fracture or subluxation. Reading Location: [facility] Facial/Sinus 11/03/24 22:10 IMPRESSION: Small soft tissue laceration along the right supraorbital region. No acute fracture. Reading Location: [facility] Discharge Plan Triage Chief Complaint: Fall Other Complaint: Laceration ED Provider: Alirio Edward Dx/Rx/DC Orders Clinical Impression: Face lacerations, CHI (closed head injury), Contusion of right shoulder, Dementia Instructions: ED Head Injury (Adult), ED FACIAL LACERATION Suture Tape Prescriptions: No Action metformin 500 MG tablet 500 mg PO DAILY propranolol 20 MG tablet 20 mg PO DAILY levothyroxine 25 MCG tablet 25 mcg PO DAILY atorvastatin 10 mg tablet 10 mg PO QHS cholecalciferol (vitamin D3) 1,250 mcg (50,000 unit) Tablet 1,250 mcg PO WE raloxifene 60 mg Tablet 60 mg PO DAILY bupropion HCl 150 mg tablet extended release 24 hr 150 mg PO DAILY Ensure Plus High Protein 0.08 gram-1.5 kcal/mL liquid 120 ml PO 4X/DAY donepezil 10 mg Tablet 10 mg PO QHS Qty: 0 0RF acetaminophen 500 mg Tablet 1,000 mg PO Q6H PRN PRN (Reason: Pain Score 1-10) Qty: 0 0RF mirtazapine 15 mg Tablet 7.5 mg PO QHS Qty: 0 0RF citalopram [Celexa] 10 mg tablet 10 mg PO DAILY Primary Care Provider: Pete Payne Referrals: Pete Payne MD [Primary Care Provider] - Activity Restrictions/Additional Instructions: CT head face and neck negative. Right shoulder x-ray negative. 7 sutures placed. Have removed in 5 to 7 days. Print Language: Cymro Disposition Disposition: Home, Self Care What to do if you have Problems For any increased pain, shortness of breath, bleeding, nausea or vomiting, chestpain, or any unexpected problems, contact your Primary Care Provider. Call [facility] ([phone]) or report to the closest Emergency Room. Call 911 if necessary. 11/04/24 0036 <Electronically signed by Alirio Patel> Cosigner Signature (if applicable): CC: Dr. Pete Payne MD ~ Signed [facility] Work Phone: [phone] Discharge summary [facility] Medical Records Department [address] [place] [id number] Emergency Department Summary 11/03/24 MR#: [id number] Acct: [id number] Name: MAXIME AMARAL Rep #:[id number] : 1935 89 From: Alirio Patel PCP: Dr. Pete Payne MD Status:R EG ER Location: ED HPI HPI - Fall History of Present Illness Chief Complaint: Fall Informant: patient and family Narrative Narrative: Patient brought in by EMS from [facility] witnessed fall head injury. Patient history of dementia ambulatory per son. Mostly wheelchair, can weight- bear transfer. From paperwork gaited bowel withwalking. Reports she did walk with a walker minimally a week ago. Reported getting off the commode she turneddown hitting her head on a radiator. No anticoagulants. She is DNR CC as of 2022 from paperwork. She has baseline per son. PFSH [facility] Medical History Dry eye syndrome of bilateral lacrimal glands Constipation Hyperlipidemia Hypokalemia CKD (chronic kidney disease) Weakness Depression, unspecified Alzheimer's disease, unspecified Hypertensive chronic kidney disease with stage 1 through stage 4 chronic kidney disease, or unspecified chronic kidney disease Type 2 diabetes mellitus with unspecified complications Hypothyroidism, unspecified GERD (gastroesophageal reflux disease) Home Medications ?Medication ?Instructions ?Recorded ?Last Taken ?Type metformin 500 mg tablet 500 mg PO DAILY DIABETES 07/24/23 History propranolol 20 mg tablet 20 mg PO DAILY tremors 11/1007/24/23 History levothyroxine 25 mcg tablet 25 mcg PO DAILY THYROID 07/24/23 History atorvastatin 10 mg tablet 10 mg PO QHS CHOLESTEROL 07/24/23 History cholecalciferol (vitamin D3) 1,250 1,250 mcg PO WE SUP PLEMENT 11/11/22 07/24/23 History mcg (50,000 unit) tablet raloxifene 60 mg tablet 60 mg PO DAILY Check with pr imary 11/12/22 07/24/23 History doctor bupropion HCl 150 mg 24 hr tablet, 150 mg PO DAILY moo d 11/13/22 07/24/23 History extended release food supplemt, lactose-reduced 120 ml PO 4X/DAY ensure 11/13/22 07/24/23 History 0.08 gram-1.5 kcal/mL oral liquid (Ensure Plus High Protein) acetaminophen 500 mg tablet 1,000 mg (2 x 500 mg) PO Q 6H PRN 11/26/22 Unknown Rx PRN Pain Score 1-10 #0 tabs donepezil 10 mg tablet 10 mg PO QHS #0 tabs 2 3 07/24/23 Rx mirtazapine 15 mg tablet 7.5 mg (1/2 x 15 mg) PO QHS #0 tabs 11/26/22 07/24/23 Rx citalopram 10 mg tablet (Celexa) 10 mg PO DAILY Unknown History Allergy/AdvReac Type Severity Reaction Status Date / Time Penicillins (PCN) AdvReac Diarrhea Verified 11/03/24 21:07 Family History Other Diabetes Surgical History H/O section History of bowel resection Social History housing: assisted living facility Smoking Status: Never smoker alcohol intake: never substance use type: does not use ROS ROS ED Constitutional Constitutional ED: Denies chills, fever(s) or sweats ENT ENT ED: Denies sore throat Cardiovascular Cardiovascular: Denies chest pain Respiratory/Chest Respiratory/Chest: Denies cough Gastrointestinal Gastrointestinal: Denies abdominal pain, diarrhea, nausea or vomiting Musculoskeletal Musculoskeletal: Denies back pain, extremity pain or neck pain Integumentary Reports wounds; Denies rash Neurologic Neurologic: Reports headache(s); Denies paresthesias or weakness EXAM Physical Exam Const Vital Signs: 11/03/24 21:08 11/03/24 21:16 11/03/24 23:07 Temperature 97.7 F L Temperature Source Oral Pulse Rate 80 88 Respiratory Rate 18 19 H Respiratory Effort Normal Non-Labored Respiratory Depth Normal Respiratory Pattern Normal Blood Pressure 136/61 H Blood Pressure Mean 86 Pulse Ox 95 97 Oxygen Delivery Method Room Air Room Air Room Air 11/04/24 00:21 Temperature 98.2 F Temperature Source Pulse Rate 84 Respiratory Rate 17 Respiratory Effort Respiratory Depth Respiratory Pattern Blood Pressure 143/60 H Blood Pressure Mean 87 Pulse Ox 97 Oxygen Delivery Method Positive well nourished and well developed Constitutional Narrative: GCS 15. General Appearance ED: well developed and NAD HEENT Reports moist mucous membranes HEENT Narrative: Laceration above right brow 4 cm controlled with pressure. normocephalic and atraumatic Eyes General Eye ED: Yes normal appearance of both eyes Neck full ROM Chest Wall inspection of chest normal and palpation of chest normal Chest: Negative for tenderness Resp normal respiratory effort and normal air movement Effort and Inspection: symmetric chest movement; Negative for respiratory distress Cardio regular rate, regular rhythm and no murmurs Peripheral Pulses: pulses 2+ throughout GI normal to inspection, nondistended, normoactive bowel sounds and non-tender Palpation: Negative for guarding or rebound tenderness present Extremity normal to inspection Extremity Narrative: Mild tenderness right proximal shoulder no deformities. No elbow tenderness. Soft compartments. No pain left upper extremity. Negative logroll of the lower extremities bilaterally. General Extremety ED: Yes tenderness; Negative for edema General Extremity: Negative for edema Neuro no sensory deficits noted Neuro Narrative: Alert to person and place. Told me the year is 1950. Sensorium / Orientation: awake and alert Skin no rashes or lesions noted and no wounds MDM MDM MDM Narrative Medical decision making narrative: Interventions / MDM: Differential diagnosis: Facial laceration, closed head injury, DNR CC, shoulder contusion Diagnosis considered but do not suspect: Fracture however x-ray and CT negative. Intracranial hemorrhage however CT negative. My EKG interpretation: N/A Imaging independently reviewed and interpreted by myself: CT brain/cervical spine/facial bones no intracranial hemorrhage no fractures also read by radiology. Right shoulder x-ray 3 views: No fracture or dislocation also read by radiology. External documents reviewed: N/A Test considered but not ordered:N/A ED course: Witnessed fall baseline dementia no anticoagulants. Head injury. Right proximal shoulderpain. Trauma scans head neck and face ordered. Right shoulder x-ray ordered. Patient declines any medications at this time. Trauma scans all negative. Preparation for laceration repair. Procedure note: Normal sterile conditions. Total of 2 cc 1% lidocaine used for local analgesia. After dressing removed there is full-thickness laceration noted. No gross foreign bodies noted. Cleansewith sterile saline. A total of7, 6-0 nylon simple interrupted sutures were placed with good approximation of the wound. Bacitracin placed over the wound. Patient tolerated the procedure well. Son updated on findings. She will be transported back to facility. Wound care at facility with sutures to removed in 5 to 7 days. All questions were answered. Re-evaluation: stable Disposition discussed with patient/family/significant other: Patient and son Case discussed with consulting clinician: N/A This note was generated with [employer] dictation software. It may contain incorrectwords, spelling, and punctuation that were not noted in checking the note beforesigning. Radiography Diagnostic Testing: Clinical Impression(s) from Imaging Studies Shoulder X-Ray 11/03/24 21:48 IMPRESSION: NO ACUTE FRACTURE OR DISLOCATION. Reading Location: [facility] Brain CT 11/03/24 22:10 IMPRESSION: CHRONIC CHANGES. NO ACUTE FINDINGS. [facility] C[facility] Spine CT 11/03/24 22:10 IMPRESSION: NO ACUTE CERVICAL FRACTURE. DEGENERATIVE CHANGES. No acute fracture or subluxation. Reading Location: [facility] Facial/Sinus 11/03/24 22:10 IMPRESSION: Small soft tissue laceration along the right supraorbital region. No acute fracture. [facility] Discharge Plan Triage Chief Complaint: Fall Other Complaint: Laceration ED Provider: Alirio Edward Dx/Rx/DC Orders Clinical Impression: Face lacerations, CHI (closed head injury), Contusion of right shoulder, Dementia Instructions: ED Head Injury (Adult), ED FACIAL LACERATION Suture Tape Prescriptions: No Action metformin 500 MG tablet 500 mg PO DAILY propranolol 20 MG tablet 20 mg PO DAILY levothyroxine 25 MCG tablet 25 mcg PO DAILY atorvastatin 10 mg tablet 10 mg PO QHS cholecalciferol (vitamin D3) 1,250 mcg (50,000 unit) Tablet 1,250 mcg PO WE raloxifene 60 mg Tablet 60 mg PO DAILY bupropion HCl 150 mg tablet extended release 24 hr 150 mg PO DAILY Ensure Plus High Protein 0.08 gram-1.5 kcal/mL liquid 120 ml PO 4X/DAY donepezil 10 mg Tablet 10 mg PO QHS Qty: 0 0RF acetaminophen 500 mg Tablet 1,000 mg PO Q6H PRN PRN (Reason: Pain Score 1-10) Qty: 0 0RF mirtazapine 15 mg Tablet 7.5 mg PO QHS Qty: 0 0RF citalopram [Celexa] 10 mg tablet 10 mg PO DAILY Primary Care Provider: Pete Payne Referrals: Pete Payne MD [Primary Care Provider] - Activity Restrictions/Additional Instructions: CT head face and neck negative. Right shoulder x-ray negative. 7 sutures placed. Have removed in 5 to 7 days. Print Language: Cymro Disposition Disposition: Home, Self Care What to do if you have Problems For any increased pain, shortness of breath, bleeding, nausea or vomiting, chestpain, or any unexpected problems, contact your Primary Care Provider. Call [facility] ([phone]) or report tothe closest Emergency Room. Call 911 if necessary. 11/04/24 0036 Cosigner Signature (if applicable): CC: Dr. Pete Payne MD ~ Signed [facility]04-17-2025 Radiology Diagnostic study note [facility] Imaging Services [address] [place] [address] Spine Cervical without Contras MR#: [id number] Acct: [id number] Name: MAXIME AMARAL Rep #: [id number] : 1935 F 89 From: Steve Sotelo DO PCP: Dr. Pete Payne MD Status: R EG ER Study:Spine Cervical without Contras Date of Exam: 11/03/24 Exam# [id number] Ordering Dr: Alirio Edward DO PROCEDURE: SPINE CERVICAL WITHOUT CONTRAS 11/03/2024 REASON FOR EXAM: INJURY TECHNIQUE: Cervical spine CT without contrast. Coronal and Sagittal reconstruction series were provided. One or more dose reduction techniques were used (e.g., Automated exposure control, adjustment of the mA and/or kV according to patient size, use of iterative reconstruction technique RADIATION DOSE SUMMARY: CTDlvol: 19 mGy DLP: 337 mGycm FINDINGS: Alignment: Straightening of the cervical alignment likely due to positioning. Disc: Multilevel narrowing of the intervertebral disc spaces. Extensive anterior endplates osteophyte formation. Vertebrae: The cervical vertebral body heights are preserved. No acute fractureor subluxation. Soft Tissues: Lung apical sac clear. Other: Carotid artery calcifications. CT/Spine Cervical without Contras IMPRESSION: NO ACUTE CERVICAL FRACTURE. DEGENERATIVE CHANGES. No acute fracture or subluxation. Reading Location: [facility] CC: Dr. Pete Payne MD; Dr. Alirio Edward DO ~ Anesthesiologist: Signed [facility]04-17-2025 Radiology Diagnostic study note [facility] Imaging Services [address] [place] [address] Sinus/Facial Bone MR#: [id number] Acct: [id number] Name: MAXIME AMARAL Rep #: [id number] : 1935 F 89 From: Steve Sotelo DO PCP: Dr. Pete Payne MD Status: R EG ER Study:Sinus/Facial Bone Date of Exam: Exam# [id number] Ordering Dr: Alirio Edward DO PROCEDURE: SINUS/FACIAL BONE REASON FOR EXAM: INJURY TECHNIQUE: CT of the facial bones without contrast. One or more dose reduction techniques were used (e.g., Automated exposure control, adjustment of the mA and/or kV according to patient size, use of iterative reconstruction technique). COMPARISON: None. FINDINGS: Bones: No acute fracture. Sinuses: Paranasal sinuses are clear. Orbits: Unremarkable. Soft Tissues: Small soft tissue laceration along the right supraorbital region. CT/Sinus/Facial Bone IMPRESSION: Small soft tissue laceration along the right supraorbital region. No acute fracture. Reading Location: [facility] CC: Dr. Pete Payne MD; Dr. Alirio Edward DO ~ Anesthesiologist: Signed [facility]04-17-2025 Radiology Diagnostic study note [facility] Imaging Services [address] [place], [place] [id number] Brain/Head without Contrast MR#: [id number] Acct: [id number] Name: MAXIME AMARAL Rep #: [id number] : 1935 F 89 From: Steve Sotelo DO PCP: Dr. Pete Payne MD Status: R EG ER Study:Brain/Head without Contrast Date of Exa m: 11/03/24 Exam# [id number] Ordering Dr: Alirio Edward DO PROCEDURE: BRAIN/HEAD WITHOUT CONTRAST 11/03/2024 REASON FOR EXAM: HEAD INJURY TECHNIQUE: Head CT without intravenous contrast. Coronal and Sagittal reconstruction serieswere provided. One or more dose reduction techniques were used (e.g., Automated exposure control, adjustment of the mA and/or kV according to patient size, use of iterative reconstruction technique. RADIATION DOSE SUMMARY: CTDlvol: 45 mGy DLP: 762 mGycm COMPARISON: None FINDINGS: Brain: Extensive low density in the deep cerebral white matter most likely represents advanced chronic small vessel ischemic disease. CSF Spaces: Moderate generalized cerebral atrophy Sinuses/Mastoids: Clear at visualized levels Bones: No acute fracture. CT/Brain/Head without Contrast IMPRESSION: CHRONIC CHANGES. NO ACUTE FINDINGS. Reading [facility] CC: Dr. Pete Payne MD; Dr. Alirio Edward DO ~ Anesthesiologist: Signed [facility]04-17-2025 Radiology Diagnostic study note [facility] Imaging Services [address] [place] [address] [id number] Shoulder min 2 Views MR#: [id number] Acct: [id number] Name: MAXIME AMARAL Rep #: [id number] : 1935 F 89 From: Steve Sotelo DO PCP: Dr. Pete Payne MD Status: R ER Study:Shoulder min 2 Views Date of Exam: 11/03/24 Exam# [id number] Ordering Dr: Alirio Edward DO PROCEDURE: SHOULDER MIN 2 VIEWS 11/03/2024 REASON FOR EXAM: INJURY TECHNIQUE: 3 view(s) of the right shoulder COMPARISON: None FINDINGS: Bones: No acute fracture. Joints: Normal alignment of the acromioclavicular and glenohumeral joints. Soft tissues: Soft tissues are unremarkable. Other: RAD/Shoulder min 2 Views IMPRESSION: NO ACUTE FRACTURE OR DISLOCATION. Reading Location: [facility] CC: Dr. Pete Payne MD; Dr. Alirio Edward DO ~ Anesthesiologist: Signed [facility]01-06-2024 Discharge summary Author Jos Rush [facility] July 25, 2023 8:48am Note Date/Time July 25, 2023 8: 48am [facility] Medical Records Department [address] [place] [address] Emergency Department Summary 07/25/23 MR#: [id number] Acct: [id number] Name: MAXIME AMARAL Rep #:[id number] : 1935 87 From: Jos Rush DO PCP: Dr. Pete Payne MD Status:R EG ER Location: ED HPI History of Present Illness Chief Complaint: Fall Informant: patient and SNF Narrative Narrative: Patient is a 87-year-old female with history of hypertension hyperlipidemia hypothyroidism type 2 diabetes and debility as well as Alzheimer's disease. Sheis typically A&O x 1. intermediate states that she was found on her knees in front of of her doorway and that they did not see her fall and based on her Alzheimer's she does not have any recollection of falling. They concerned she may have struck her head or sustained a fracture and therefore sent her to the hospital for evaluation. Patient admits to knee pain and left hip pain at this time but otherwise denies any symptoms [facility] Medical History Alzheimer's disease, unspecified CKD (chronic kidney disease) Constipation Depression, unspecified Dry eye syndrome of bilateral lacrimal glands GERD (gastroesophageal reflux disease) Hyperlipidemia Hypertensive chronic kidney disease with stage 1 through stage 4 chronic kidney disease, or unspecified chronic kidney disease Hypokalemia Hypothyroidism, unspecified Type 2 diabetes mellitus with unspecified complications Weakness Home Medications metformin 500 mg tablet 500 mg PO DAILY DIABETES 11/10/13 [History Last Taken 07/24/23] propranolol 20 mg tablet 20 mg PO DAILY tremors 11/10/13 [History Last Taken 07/24/23] levothyroxine 25 mcg tablet 25 mcg PO DAILY THYROID 02/08/17 [History Last Taken 07/24/23] atorvastatin 10 mg tablet 10 mg PO QHS CHOLESTEROL 11/11/22 [History Last Taken 07/24/23] cholecalciferol (vitamin D3) 1,250 mcg (50,000 unit) tablet 1,250 mcg PO WE SUPPLEMENT 11/11/22 [History Last Taken 07/24/23] raloxifene 60 mg tablet 60 mg PO DAILY Check with primary doctor 11/12/22 [History Last Taken 07/24/23] bupropion HCl 150 mg 24 hr tablet, extended release 150 mg PO DAILY mood 11/13/22 [History Last Taken 07/24/23] food supplemt, lactose-reduced 0.08 gram-1.5 kcal/mL oral liquid (Ensure Plus High Protein) 120 ml PO 4X/DAY ensure 11/13/22 [History Last Taken 07/24/23] acetaminophen 500 mg tablet 1,000 mg (2 x 500 mg) PO Q6H PRN PRN Pain Score 1- 10#0 tabs 11/26/22 [Rx Last Taken Unknown] donepezil 10 mg tablet 10 mg PO QHS #0 tabs 11/26/22 [Rx Last Taken 07/24/23] mirtazapine 15 mg tablet 7.5 mg (1/2 x 15 mg) PO QHS #0 tabs 11/26/22 [Rx Last Taken 07/24/23] citalopram 10 mg tablet (Celexa) 10 mg PO DAILY 07/25/23 [History Last Taken Unknown] Allergy/AdvReac Type Severity Reaction Status Date / Time Penicillins [PCN] AdvReac Diarrhea Verified 07/25/23 07:59 Family History Other Diabetes Surgical History H/O section History of bowel resection Social History (Updated 11/13/22 @ 19:[address] Sylvester Crooks MD) housing: assisted living facility Smoking Status: Never smoker alcohol intake: never substance use type: does not use ROS ROS ED ROS Narrative Please note review of systems may be unreliable secondary to history of dementia Constitutional Constitutional ED: Denies chills or fever(s) Eyes Eyes: Denies change in vision ENT ENT ED: Denies sore throat Cardiovascular Cardiovascular: Reports other Details: Patient denies syncope ; Denies chest pain Respiratory/Chest Respiratory/Chest: Denies cough or dyspnea Gastrointestinal Gastrointestinal: Denies abdominal pain, diarrhea, nausea or vomiting Genitourinary Genitourinary ED: Denies dysuria Musculoskeletal Musculoskeletal: Reports other Details: Positive bilateral knee pain and left hip pain Integumentary Denies rash Neurologic Neurologic: Denies headache(s) Hematologic/Lymphatic Hematologic/Lymphatic: Denies easy bleeding or easy bruising EXAM Physical Exam Const Vital Signs: 07/25/23 04:40 07/25/23 04:49 07/25/23 05:39 Temperature 97.9 F Temperature Source Temporal Pulse Rate 79 81 Respiratory Rate 11 L 14 Respiratory Effort Normal Respiratory Depth Normal Respiratory Pattern Normal Blood Pressure 132/62 H Blood Pressure Mean 85 Pulse Ox 97 98 Oxygen Delivery Method Room Air Room Air Room Air 07/25/23 06:00 07/25/23 07:00 07/25/23 08:00 Temperature 97.6 F L 97.7 F L 97.8 F Temperature Source Temporal Temporal Temporal Pulse Rate 85 89 80 Respiratory Rate 16 14 15 Respiratory Effort Respiratory Depth Respiratory Pattern Blood Pressure 138/108 H 132/104 H 144/57 H Blood Pressure Mean 118 113 86 Pulse Ox 97 98 95 Oxygen Delivery Method Room Air Room Air Room Air Positive well nourished and well developed General Appearance ED: well developed HEENT HEENT Narrative: Patient has a superficial abrasion with soft tissue swelling along the left temporal portion of the scalp concerning for potential fall. No signs of depressed or basilar skull fracture Eyes PERRL and EOMs intact bilaterally Neck supple Neck Narrative: No bony deformity or step-off of the cervical spine Chest Wall palpation of chest normal Chest Narrative: No bony deformity or crepitance Resp normal respiratory effort and clear to auscultation bilaterally Resp Narrative: Breath sounds are diminished throughout but overall clear to auscultation without signs of distress Cardio regular rate and regular rhythm GI normal to inspection, nondistended, normoactive bowel sounds, non-tender, non-distended and no masses Auscultation: normoactive bowel sounds Palpation: soft Back/Spine Back/Spine Narrative: No bony deformity or step-off of the thoracic or lumbar spine Extremity Extremity Narrative: Patient has soft tissue swelling with ecchymosis to the anterior aspect of the right knee Patient has limited range of motion secondary to pain of the right knee but is still able to straight leg raise the right leg off the bed There is no shortening or external rotation of either lower extremity Patient does admit to pain on palpation of the left hip near the greater trochanter but there is no pain over top the pubic rami Patient will lift both upper extremities without difficulty Neuro CN's II-XII intact bilaterally Neuro Narrative: Patient is at her baseline mental status without focal neurologic deficit Sensorium / Orientation: alert Psych Psych Narrative: Patient is at her baseline mental status Skin Skin Narrative: Superficial abrasion to the left side of the scalp as well as the swelling and ecchymosis to the right knee as documented above MDM MDM MDM Narrative Medical decision making narrative: Patient presented to the ER slightly hypertensive but has a past medical history of this and otherwise with stable vitals. She did not remember falling but has Alzheimer disease and is typically alert and oriented to person only. At this time she is at her baseline mental status with stable vitals and therefore do not feel need for laboratory studies. Based on the patient's physical exam concerning for fall CTs of the head and cervical spine were obtained as well as the hip/pelvis and right knee. Differential diagnosis is for skull fracture versus subdural or epidural hematoma versus compression fracture of the cervical spine. There is also concern for pubic rami versus femoral neck fracture versus patellar or tibial plateau fracture. The x-ray of the right knee questioned a fracture and recommended CT scan so this was obtained. This revealed findings consistent with hemarthrosis/suprapatellar effusion which does correlate with her physical exam and fall. But there was no acute fracture noted which also correlates with the fact she has ability to straight leg raise. I did discuss the case with orthopedics Dr. Villalba. He recommends just an Marvel wrap at this time as the CT scan does not reveal an acute fracture and her physical exam does not indicate any type of missed fracture or ligamentous or patellar injury. Therefore this was placed and the patient is otherwise safe to return to the detention Radiography Diagnostic Testing: Clinical Impression(s) from Imaging Studies Brain CT 07/25/23 04:58 IMPRESSION: No acute intracranial abnormality. Stable moderate chronic changes. Electronically Signed: Gabrielle Gallegos MD at 6:20 EST , Cervical Spine CT 07/25/23 04:58 IMPRESSION: No acute posttraumatic abnormality. Multilevel degenerative changes. Electronically Signed: Gabrielle Gallegos MD at 6:35 EST , Knee X-Ray 07/25/23 04:58 IMPRESSION: 1. Small suprapatellar joint effusion. 2. Multi compartmental degenerative changes. 3. Mild double bone density at the anterior-medial femoral condyle on the sunrise patellar view, not confirmed on other views. Consider CT if there is strong clinical suspicion of acute fracture, especially anterior-medial pain. Electronically Signed: Gabrielle Gallegos MD at 6:40 EST Reading Location ID and State: [facility] / [place] Tel , Service support , Hip/Pelvis X-Ray 07/25/23 05:47 IMPRESSION: No acute pelvic or left hip fracture demonstrated. Electronically Signed: Gabrielle Gallegos MD at 6:45 EST Reading Location ID and State: [facility] / [place] Tel , Service support , Lower Extremity CT 07/25/23 06:44 IMPRESSION: 1. Small amount of presumed hemarthrosis or other complex mildly dense fluid in the suprapatellar bursa. No lipohemarthrosis or convincing acute fracture. 2. Irregular posterior-medial tibial plateau corner is not typical of acute fracture. Demineralization and degenerative changes. Electronically Signed: Gabrielle Gallegos MD at 8:18 EST Reading Location ID and State: [facility] / [place] Tel , Service support , Left hip x-ray with 1 view pelvis as interpreted by the emergency medicine physician reveals no acute fracture or dislocation Right knee x-ray as interpreted by the emergency medicine physician questions potential fracture off the medial aspect of the patella with small joint effusion Discharge Plan Triage Chief Complaint: Fall Other Complaint: Neuro S/Sx ED Provider: Jos Rush Dx/Rx/DC Orders Clinical Impression: Accidental fall, Hypertension, Type 2 diabetes mellitus, Alzheimer disease, Closed head injury, Suprapatellar effusion of knee Instructions: ED Head Injury (Adult), ED Knee Effusion Prescriptions: No Action metformin 500 MG tablet 500 mg PO DAILY propranolol 20 MG tablet 20 mg PO DAILY levothyroxine 25 MCG tablet 25 mcg PO DAILY atorvastatin 10 mg tablet 10 mg PO QHS cholecalciferol (vitamin D3) 1,250 mcg (50,000 unit) Tablet 1,250 mcg PO WE raloxifene 60 mg Tablet 60 mg PO DAILY bupropion HCl 150 mg tablet extended release 24 hr 150 mg PO DAILY Ensure Plus High Protein 0.08 gram-1.5 kcal/mL liquid 120 ml PO 4X/DAY donepezil 10 mg Tablet 10 mg PO QHS Qty: 0 0RF acetaminophen 500 mg Tablet 1,000 mg PO Q6H PRN PRN (Reason: Pain Score 1-10) Qty: 0 0RF mirtazapine 15 mg Tablet 7.5 mg PO QHS Qty: 0 0RF citalopram [Celexa] 10 mg tablet 10 mg PO DAILY Primary Care Provider: Pete Payne Referrals: Pete Payne MD [Primary Care Provider] - Disposition Disposition: Home, Self Care What to do if you have Problems For any increased pain, shortness of breath, bleeding, nausea or vomiting, chestpain, or any unexpected problems, contact your Primary Care Provider. Call [facility] ([phone]) or report to the closest Emergency Room. Call 911 if necessary. 07/25/23 0848 <Electronically signed by Jos Rush DO> Cosigner Signature (if applicable): CC: Dr. Pete Payne MD ~ Signed [facility] Work Phone: [phone]) 529-938307-04-2023 Discharge summary Author [facility] January 20, 2023 4:32am Note Date/Time January 20, 2023 3:43a m [facility] Medical Records Department [address] [place] [address] Emergency Department Summary 01/20/23 MR#: [id number] Acct: [id number] Name: MAXIME AMARAL Rep #:[id number] : 1935 87 From: Jos Rush DO PCP: Dr. Pete Payne MD Status:R EG ER Location: ED HPI History of Present Illness Chief Complaint: Fall Informant: patient and EMS Limited: dementia Narrative Narrative: Patient is a 87-year-old female with past medical history of dementia who stays in a detention in their dementia unit. Nursing reports that patient was reportedly wandering this evening and had a fall. They found the patient awake and alert but with trauma to her head/face. They deny any blood thinners but states secondary to the fall and patient complaining of pain in her knees and shoulders she was sent in for evaluation [facility] Medical History Alzheimer's disease, unspecified Depression, unspecified GERD (gastroesophageal reflux disease) Hypertensive chronic kidney disease with stage 1 through stage 4 chronic kidney disease, or unspecified chronic kidney disease Hypothyroidism, unspecified Type 2 diabetes mellitus with unspecified complications Home Medications metformin 500 mg tablet 500 mg PO DAILY DIABETES 11/10/13 [History Last Taken 11/10/22] propranolol 20 mg tablet 20 mg PO DAILY tremors 11/10/13 [History Last Taken 11/10/22] levothyroxine 25 mcg tablet 25 mcg PO DAILY THYROID 02/08/17 [History Last Taken 11/10/22] atorvastatin 10 mg tablet 10 mg PO QHS CHOLESTEROL 11/11/22 [History Last Taken 11/10/22] cholecalciferol (vitamin D3) 1,250 mcg (50,000 unit) tablet 1,250 mcg PO WE SUPPLEMENT 11/11/22 [History Last Taken Unknown] raloxifene 60 mg tablet 60 mg PO DAILY Check with primary doctor 11/12/22 [History Last Taken 11/10/22] bupropion HCl 150 mg 24 hr tablet, extended release 150 mg PO DAILY mood 11/13/22 [History Last Taken Unknown] food supplemt, lactose-reduced 0.08 gram-1.5 kcal/mL oral liquid (Ensure Plus High Protein) 120 ml PO 4X/DAY ensure 11/13/22 [History Last Taken Unknown] acetaminophen 500 mg tablet 1,000 mg (2 x 500 mg) PO Q6H PRN PRN Pain Score 1- 10#0 tabs 11/26/22 [Rx Last Taken Unknown] donepezil 10 mg tablet 10 mg PO QHS #0 tabs 11/26/22 [Rx Last Taken Unknown] mirtazapine 15 mg tablet 7.5 mg (1/2 x 15 mg) PO QHS #0 tabs 11/26/22 [Rx Last Taken Unknown] Allergy/AdvReac Type Severity Reaction Status Date / Time Penicillins [PCN] AdvReac Diarrhea Verified 11/11/22 16:49 Family History Other Diabetes Surgical History H/O section History of bowel resection Social History (Updated 11/13/22 @ 19:[address] Sylvester Crooks MD) housing: assisted living facility Smoking Status: Never smoker alcohol intake: never substance use type: does not use ROS ROS ED Constitutional Constitutional ED: Denies chills or fever(s) Eyes Eyes: Denies change in vision ENT ENT ED: Reports other Details: Positive nosebleed ; Denies sore throat Cardiovascular Cardiovascular: Denies chest pain Respiratory/Chest Respiratory/Chest: Denies cough or dyspnea Gastrointestinal Gastrointestinal: Denies abdominal pain, diarrhea, nausea or vomiting Genitourinary Genitourinary ED: Denies dysuria Musculoskeletal Musculoskeletal: Reports other Details: Positive bilateral shoulder and bilateral knee pain ; Denies back pain or neck pain Integumentary Reports Abrasions; Denies rash Neurologic Neurologic: Denies headache(s) Hematologic/Lymphatic Hematologic/Lymphatic: Denies easy bleeding or easy bruising EXAM Physical Exam Const Vital Signs: 01/20/23 02:01 01/20/23 03:50 Temperature 97.5 F L Temperature Source Temporal Pulse Rate 77 78 Respiratory Rate 16 18 Blood Pressure 154/68 H 146/61 H Blood Pressure Mean 96 Pulse Ox 97 97 Positive well nourished and well developed General Appearance ED: well developed HEENT HEENT Narrative: Patient has a 1 x 2 hematoma to the midportion of the forehead as well as ecchymosis and soft tissue swelling to the bridge of the nose. There is dried blood in the right nostril but no septal hematoma. No signs of depressed or basilar skull fracture Eyes PERRL and EOMs intact bilaterally Eyes Narrative: No hyphema Neck Neck Narrative: C collar in place without bony deformity or step-off of the cervical spine but there is midline pain on palpation Chest Wall palpation of chest normal Chest Narrative: No bony deformity or crepitance noted Resp normal respiratory effort and clear to auscultation bilaterally Cardio regular rate and regular rhythm Rate: other Other Details: Radial pulses are plus 2 out of 4 bilaterally are equal and symmetric GI normal to inspection, nondistended, normoactive bowel sounds, non-tender, non-distended and no masses GI Narrative: No voluntary guarding or rigidity no pulsatile mass or fluid wave Auscultation: normoactive bowel sounds Palpation: soft Back/Spine Back/Spine Narrative: No bony deformity or step-off of the thoracic or lumbar spine no midline pain with palpation Extremity Extremity Narrative: Pelvis is stable there is no shortening or external rotation of either lower extremity Patient has soft tissue swelling ecchymosis to the anterior aspects of bilateral knees that are tender to palpation without obvious bony deformity or joint effusion. Patellar tendon is intact bilaterally and knee ligaments are stable Patient also has pain on palpation of bilateral shoulders without bony deformity or joint effusion or sulcus sign present Neuro CN's II-XII intact bilaterally Neuro Narrative: Patient is at her baseline mental status without focal neurologic deficit Sensorium / Orientation: alert Psych mental status grossly normal Skin no rashes or lesions noted Skin Narrative: Soft tissue swelling with ecchymosis over top bilateral knees as documented above as well as ecchymosis and swelling to the forehead and bridge of nose MDM MDM MDM Narrative Medical decision making narrative: Patient presented to the ER at her baseline mental status. With report of fall and facial trauma there is concern for underlying skull fracture or epidural or subdural hematoma or cervical spine fracture. Patient also could have possible shoulder fracture clavicle fracture and shoulder dislocation patellar fracture or ligamentous or tendon disruption. X-rays and CTs were obtained which revealed age-related findings without acute fracture dislocation or bleed. Therefore at this time as patient's work-up reveals no acute traumatic findings and she is at her baseline mental status and vitals are stable there is no need for further work-up and he is otherwise safe for discharge History & Record Review Discussion w/independent historian: EMS personnel and Patient Radiography Diagnostic Testing: Clinical Impression(s) from Imaging Studies Brain CT 01/20/23 02:21 IMPRESSION: No acute intracranial abnormality. Electronically Signed: Netta Delarosa MD at 3:16 EDT Reading Location ID and State: [facility] / [place] Tel , Service support , Cervical Spine CT 01/20/23 02:21 IMPRESSION: Multilevel degenerative changes, as described above. 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 Electronically Signed: Netta Delarosa MD at 3:35 EDT Reading Location ID and State: [facility] / [place] Tel , Service support , Pelvis X-Ray 01/20/23 02:21 IMPRESSION: Degenerative arthrosis. No evidence of displaced pelvic or hip fracture. Electronically Signed: Netta Delarosa MD at 3:32 EDT Reading Location ID and State: [facility] / [place] Tel , Service support , Shoulder X-Ray 01/20/23 02:21 IMPRESSION: Severe narrowing of the subacromial space in both shoulders consistent with complete bilateral rotator cuff tear . Mild degenerative arthrosis in both shoulders. Electronically Signed: Netta Delarosa MD at 3:36 EDT , Pelvis x-rays interpreted by the emergency medicine physician reveals age- related degenerative changes without acute fracture or dislocation Bilateral knee x-ray as interpreted by the emergency medicine physician reveals age-related degenerative changes without acute fracture or dislocation Bilateral shoulder x-rays as interpreted by the emergency medicine physician reveal chronic dislocation or joint effusion Discharge Plan Triage Chief Complaint: Fall ED Provider: Jos Rush Dx/Rx/DC Orders Clinical Impression: Traumatic hematoma of face, Closed head injury, Contusion of multiple sites, Type 2 diabetes mellitus, Alzheimer disease, Hypertension Instructions: Bruises (Contusions), ED Head Injury (Adult), ED Hematoma Prescriptions: No Action metformin 500 MG tablet 500 mg PO DAILY propranolol 20 MG tablet 20 mg PO DAILY levothyroxine 25 MCG tablet 25 mcg PO DAILY atorvastatin 10 mg tablet 10 mg PO QHS cholecalciferol (vitamin D3) 1,250 mcg (50,000 unit) Tablet 1,250 mcg PO WE raloxifene 60 mg Tablet 60 mg PO DAILY bupropion HCl 150 mg tablet extended release 24 hr 150 mg PO DAILY Ensure Plus High Protein 0.08 gram-1.5 kcal/mL liquid 120 ml PO 4X/DAY donepezil 10 mg Tablet 10 mg PO QHS Qty: 0 0RF acetaminophen 500 mg Tablet 1,000 mg PO Q6H PRN PRN (Reason: Pain Score 1-10) Qty: 0 0RF mirtazapine 15 mg Tablet 7.5 mg PO QHS Qty: 0 0RF Primary Care Provider: Pete Payne Referrals: Pete Payne MD [Primary Care Provider] - Disposition Disposition: Home, Self Care What to do if you have Problems For any increased pain, shortness of breath, bleeding, nausea or vomiting, chestpain, or any unexpected problems, contact your Primary Care Provider. Call [facility] ([phone]) or report to the closest Emergency Room. Call 911 if necessary. 01/20/23 0432 <Electronically signed by Jos Rush DO> Cosigner Signature (if applicable): CC: Dr. Pete Payne MD ~ Signed [facility] Work Phone: [phone]) 806-503305-10-[address] Crooks [facility] November 26, 2022 9:10pm Note Date/Time November 26, 2022 9:10p m [facility] Medical Records Department [address] [place] [address] Transfer to [facility] MR#: [id number] Acct: [id number] Name: MAXIME AMARAL Rep #:[id number] : 1935 [id number] From: Sylvester Crooks MD PCP: ALANNAH BENITO Status:ADM IN Certification of patient admission REQUIRED AT TIME OF ADMISSION. I CERTIFY THAT POST-HOSPITAL ECF SERVICES ARE REQUIRED TO BE GIVEN ON AN IN-PATIENT BASIS BECAUSE OF THE ABOVE NAMED PATIENT'S NEED FOR RESIDENTIAL CARE ON A CONTINUING BASIS FOR THE CONDITION(S) FOR WHICH HE/SHE WAS RECEIVING IN-PATIENT HOSPITAL SERVICES PRIOR TO HIS/HER TRANSFER TO THE ECF. 11/26/222109<Electronically signed by Sylvester Crooks MD> Diet Diet Order/Speech Therapy: 11/13/22 16:54 Diet: Regular - General Food consistency:: Regular Liquid Consistency:: Regular/Thin Dietary Modifications:: Fortified Foods Type of Dietary Supplement:: ensure pudding L and D Is pt able to select menu?: Yes Diet Comments: SMALL PORTIONS - 8 oz fruit smoothie at all meals; continue EPw/ L&D Routine Orders/Code Status Code Status: DNRCC Therapies Weight Bearing: Weight bearing as tolerated Extremity Affected:: Bilateral Lower Physical Therapy: Eval and Treat Occupational Therapy: Eval and Treat Speech Therapy: Eval and Treat Problem/Diagnosis (1) Debility: Status: Acute Code(s): R53.81 - Other malaise (2) Hyponatremia: Status: Acute Code(s): E87.1 - Hypo-osmolality and hyponatremia (3) Dehydration: Status: Acute Code(s): E86.0 - Dehydration (4) Diabetes mellitus: Status: Acute Code(s): E11.9 - Type 2 diabetes mellitus without complications (5) Hypertension: Status: Chronic Code(s): I10 - Essential (primary) hypertension (6) Hypothyroidism: Status: Acute Code(s): E03.9 - Hypothyroidism, unspecified (7) Hyperlipidemia: Status: Acute Code(s): E78.5 - Hyperlipidemia, unspecified (8) Alzheimer disease: Status: Acute Code(s): G30.9 - Alzheimer's disease, unspecified; F02.80 - Dementia in other diseases classified elsewhere, unspecified severity, without behavioral disturbance, psychotic disturbance, mood disturbance, and anxiety (9) Depression: Status: Acute Code(s): F32.A - Depression, unspecified Plan 87 year old female with below past medical history hospitalized for weakness secondary to hyponatremia, dehydration, admitted to TCU with debility, here for rehabilitation, strengthening, prior to discharge to [facility]. * Debility - PT/OT. * Cognition - ST. * Pain - Tylenol 1000mg q6h prn pain (1-10). * Bowel - senna/colace 1 tablet bid, Dulcolax 10mg pr daily prn. * Adult immunization - Administer pneumonia vaccine, covid19 vaccine, flu vaccine as appropriate. * DVT prophylaxis - HAS-BLED 1 intermediate risk of bleeding, Maru 4 high risk of blood clots, overall risk intermediate, Rx Xarelto 10mg daily x 2 weeks. * Hyperlipidemia - Atorvastatin 10mg qhs. * Depression - Bupropion XL 150mg daily, stable chronic [place] [facility] use, GDR not recommended. * Alzheimer Disease - Donepezil 10mg qhs. * Nutrition - Ensure Plus 120ml 4x/day. * Vitamin D deficiency - D2 1.25mg qweek. * Hypothyroidism - Levothyroxine 25mcg daily. * Diabetes Mellitus II - Metformin 500mg daily. * Hypertension - Propranolol 20mg daily. * Osteoporosis - Evista 60mg daily. Allergies/Procedures Done in Hospital Allergies Penicillins [PCN] Adverse Reaction (Verified 11/11/22 16:49) Diarrhea Procedures: None Type of Care/Length of Stay Estimated LOS: Convalescent Care Less Than 30 days Type of Care Needed: Intermediate Rehab Potential: Fair Prognosis: Poor Additional Orders/Day of Discharge Day of Discharge: 11/29/22 Dietary and Speech Recommendations Dietitian Recommendations/Changes: Continue Regular diet - w/ fortified foods w/ all meals and small portions per res/daughter request Continue fruit smoothie w/ breakfast and ensure pudding w/ lunch and dinner Continue ONS w/ medpass (ensure plus high protein 4x/day) - prefers vanilla and strawberry Continue appetite stimulant to help encourage increased appetite. Discharge Plan Admission Admit Date/Time: 11/13/22 16:43 Primary Reason for Your Visit: Debility. Attending Provider: Sylvester Crooks Chi Primary Care Provider: ALANNAH BENITO Consulting Providers: Magnolia Tafoya ; Steven Dean ; Fany Dao ; Tanisha Henriquez ; Britany White MARINE MECHANIC Instructions Additional Instructions / Restrictions: Discharge to [facility] 11/29/2022, intermediate. Discharge Orders/Prescriptions Prescriptions: New donepezil 10 mg Tablet 10 mg PO QHS Qty: 0 0RF acetaminophen 500 mg Tablet 1,000 mg PO Q6H PRN PRN (Reason: Pain Score 1-10) Qty: 0 0RF mirtazapine 15 mg Tablet 7.5 mg PO QHS Qty: 0 0RF Continued metformin 500 MG tablet 500 mg PO DAILY propranolol 20 MG tablet 20 mg PO DAILY levothyroxine 25 MCG tablet 25 mcg PO DAILY atorvastatin 10 mg tablet 10 mg PO QHS cholecalciferol (vitamin D3) 1,250 mcg (50,000 unit) Tablet 1,250 mcg PO WE raloxifene 60 mg Tablet 60 mg PO DAILY bupropion HCl 150 mg tablet extended release 24 hr 150 mg PO DAILY Ensure Plus High Protein 0.08 gram-1.5 kcal/mL liquid 120 ml PO 4X/DAY Discontinued donepezil 10 mg tablet 100 mg PO QHS Referrals / Follow Up: ALANNAH BENITO [Other] Disposition Disposition (needs filled in before D/C Order can be placed): NonSkilled [facility] 11/26/222109 <Electronically signed by Sylvester Crooks MD> Cosigner Signature (if applicable): CC: MARINE MECHANICJavier Tafoya; JAYASHREE Henriquez; JAYASHREE hWite; Dr. Steven Dean DO; Dr. Fany Dao MD; ALANNAH BENITO ~ [facility] Work Phone: [phone] 800-643305-10-[address] Crooks [facility] November 26, 2022 9:09pm Note Date/Time November 26, 2022 9:05p [facility] Medical Records Department [address] [place] [address] Discharge Summary 11/26/222103 MR#: [id number] Acct: [id number] Name: MAXIME AMARAL Rep #:[id number] : 1935 87 From: Sylvester Crooks MD PCP: ALANNAH BENITO Status:ADM IN Location: [place] [id number] Providers Date of Admission: 11/13/22 Primary Care Physician: ALANNAH BENITO Consultations 11/19/22 15:35 Consult: Hospice / Palliative Care Routine Consulting Provider: [facility] Reason for Consult: PALLIATIVE - per family request, Alzheimer's EMERGENT Consult: No MD Notified: Yes Date Notified: 11/19/22 Time Notified: 15:35 Method of Notification: Text Reason For Visit: DEBILITY Diagnosis Discharge Diagnosis (1) Debility: Status: Acute Code(s): R53.81 - Other malaise (2) Hyponatremia: Status: Acute Code(s): E87.1 - Hypo-osmolality and hyponatremia (3) Dehydration: Status: Acute Code(s): E86.0 - Dehydration (4) Diabetes mellitus: Status: Acute Code(s): E11.9 - Type 2 diabetes mellitus without complications (5) Hypertension: Status: Chronic Code(s): I10 - Essential (primary) hypertension (6) Hypothyroidism: Status: Acute Code(s): E03.9 - Hypothyroidism, unspecified (7) Hyperlipidemia: Status: Acute Code(s): E78.5 - Hyperlipidemia, unspecified (8) Alzheimer disease: Status: Acute Code(s): G30.9 - Alzheimer's disease, unspecified; F02.80 - Dementia in other diseases classified elsewhere, unspecified severity, without behavioral disturbance, psychotic disturbance, mood disturbance, and anxiety (9) Depression: Status: Acute Code(s): F32.A - Depression, unspecified Plan 87 year old female with below past medical history hospitalized for weakness secondary to hyponatremia, dehydration, admitted to TCU with debility, here for rehabilitation, strengthening, prior to discharge to [facility]. * Debility - PT/OT. * Cognition - ST. * Pain - Tylenol 1000mg q6h prn pain (1-10). * Bowel - senna/colace 1 tablet bid, Dulcolax 10mg pr daily prn. * Adult immunization - Administer pneumonia vaccine, covid19 vaccine, flu vaccine as appropriate. * DVT prophylaxis - HAS-BLED 1 intermediate risk of bleeding, Maru 4 high risk of blood clots, overall risk intermediate, Rx Xarelto 10mg daily x 2 weeks. * Hyperlipidemia - Atorvastatin 10mg qhs. * Depression - Bupropion XL 150mg daily, stable chronic [place] [facility] use, GDR not recommended. * Alzheimer Disease - Donepezil 10mg qhs. * Nutrition - Ensure Plus 120ml 4x/day. * Vitamin D deficiency - D2 1.25mg qweek. * Hypothyroidism - Levothyroxine 25mcg daily. * Diabetes Mellitus II - Metformin 500mg daily. * Hypertension - Propranolol 20mg daily. * Osteoporosis - Evista 60mg daily. Medications at Discharge Home Medications metformin 500 mg tablet 500 mg PO DAILY DIABETES 11/10/13 propranolol 20 mg tablet 20 mg PO DAILY tremors 11/10/13 levothyroxine 25 mcg tablet 25 mcg PO DAILY THYROID 02/08/17 atorvastatin 10 mg tablet 10 mg PO QHS CHOLESTEROL 11/11/22 cholecalciferol (vitamin D3) 1,250 mcg (50,000 unit) tablet 1,250 mcg PO WE SUPPLEMENT 11/11/22 raloxifene 60 mg tablet 60 mg PO DAILY Check with primary doctor 11/12/22 bupropion HCl 150 mg 24 hr tablet, extended release 150 mg PO DAILY mood 11/13/22 food supplemt, lactose-reduced 0.08 gram-1.5 kcal/mL oral liquid (Ensure Plus High Protein) 120 ml PO 4X/DAY ensure 11/13/22 acetaminophen 500 mg tablet 1,000 mg PO Q6H PRN PRN Pain Score 1-10 #0 tabs 11/26/22 donepezil 10 mg tablet 10 mg PO QHS #0 tabs 11/26/22 mirtazapine 15 mg tablet 7.5 mg PO QHS #0 tabs 11/26/22 Hospital Course Operations None Procedures None Summary of Care Provided Minutes Spent on Discharge: 35 Hospital Course: 87 year old female with below past medical history hospitalized for weakness secondary to hyponatremia, dehydration, admitted to TCU with debility, here for rehabilitation, strengthening, prior to discharge to [facility]. Discharge to [facility] 11/29/2022, intermediate. Physical Exam Const alert General Appearance: cooperative HEENT normocephalic Eyes PERRL and EOMs intact bilaterally Neck supple, no JVD and no carotid bruits Resp normal respiratory effort, normal air movement and clear to auscultation bilaterally Cardio regular rate and regular rhythm GI normal to inspection, nondistended, normoactive bowel sounds, non-tender and non-distended Extremity normal capillary refill General Extremity: Negative for edema Skin no rashes or lesions noted General Skin Exam: no breakdown Psych affect normal Appearance: appropriate Medical Records Data Medical Nutrition Assessment Dietitian: Malnutrition Criteria Met Start: 11/14/22 16:46 Freq: Status: Active Protocol: Document 11/26/22 14:47 HUSEYIN (Rec: 11/26/22 14:47 HUSEYIN [id number]) Nutrition Malnutrition Evidence of Malnutrition Exists Yes Malnutrition (severe): Acute Illness/Injury Evidenced By Suboptimal Energy Intake ( Severe),Weight Loss (Severe) Clinical Problem Acute Disease or Injury Related Malnutrition Etiology related to alzheimers and inadequate energy intake Signs/Symptoms related to <50% po intake of est nutritional needs and 2.9% unintended wt loss x past 1 wk d/t having issues w/ n/d Status Active Problem Recommendation Dietitian Recommendations/Changes Continue Regular diet - w/ fortified foods w/ all meals and small portions per res/ daughter request Continue fruit smoothie w/ breakfast and ensure pudding w / lunch and dinner Continue ONS w/ medpass ( ensure plus high protein 4x/ day) - prefers vanilla and strawberry Continue appetite stimulant to help encourage increased appetite. Weight / BMI Weight Weight: 54.295 kg Body Mass Index (BMI) 25.0 ABG / Lab / Microbiology Data Result Diagrams: 11/21/22 05:16 11/21/22 05:16 Laboratory: Laboratory Results - last 24 hr 11/26/22 06:12: POC Glucose 170 H Microbiology: Microbiology 11/14/22 09:53 Urine, Clean Catch Urine Culture - Final Escherichia coli Klebsiella pneumoniae sp pneum 11/16/22 05:50 Nasal Secretion SARS-CoV-2 Antigen (Rapid) - Final 11/15/22 11:17 Nasal Secretion SARS-CoV-2 Antigen (Rapid) - Final D/C Instructions Discharge Diet: No restrictions Discharge Activity: Return to Normal Activity, May Shower and Use Walker Weight Bearing Status: Weight bearing as tolerated Call your doctor if you observe: Fever of 101 or Higher, Inability to urinate, Inability to have a bowel movement, Shortness of breath, Dizziness, Fainting spells, Swelling in the ankles, Chest pain and Uncontrolled pain Additional Instructions: Discharge to [facility] 11/29/2022, intermediate. Meaningful Use Info Meaningful Use Diagnoses (Choose all that apply): None applicable Discharge Plan Admission Admit Date/Time: 11/13/22 16:43 Primary Reason for Your Visit: Debility. Attending Provider: Sylvester Crooks Chi Primary Care Provider: ALANNAH BENITO Consulting Providers: Magnolia Tafoya ; Steven Dean ; Fany Dao ; Tanisha Henriquez ; Britany White MARINE MECHANIC Instructions Additional Instructions / Restrictions: Discharge to [facility] 11/29/2022, intermediate. Discharge Orders/Prescriptions Prescriptions: New donepezil 10 mg Tablet 10 mg PO QHS Qty: 0 0RF acetaminophen 500 mg Tablet 1,000 mg PO Q6H PRN PRN (Reason: Pain Score 1-10) Qty: 0 0RF mirtazapine 15 mg Tablet 7.5 mg PO QHS Qty: 0 0RF Continued metformin 500 MG tablet 500 mg PO DAILY propranolol 20 MG tablet 20 mg PO DAILY levothyroxine 25 MCG tablet 25 mcg PO DAILY atorvastatin 10 mg tablet 10 mg PO QHS cholecalciferol (vitamin D3) 1,250 mcg (50,000 unit) Tablet 1,250 mcg PO WE raloxifene 60 mg Tablet 60 mg PO DAILY bupropion HCl 150 mg tablet extended release 24 hr 150 mg PO DAILY Ensure Plus High Protein 0.08 gram-1.5 kcal/mL liquid 120 ml PO 4X/DAY Discontinued donepezil 10 mg tablet 100 mg PO QHS Referrals / Follow Up: ALANNAH BENITO [Other] Disposition Disposition (needs filled in before D/C Order can be placed): NonSkilled [place] 11/26/222108 <Electronically signed by Sylvester Crooks MD> Cosigner Signature (if applicable): CC: Dr. Sylvester Crooks MD; ALANNAH BENITO~ Signed [facility] Work Phone: [phone]) 328-563005-03-2023 History and physical note Author Dr. Crooks [facility] November 19, 2022 5:00pm Note Date/Time November 13, 2022 7:4 6pm [facility] Medical Records Department [address] [place] [address] History & Physical Exam 11/13/221939 MR#: [id number] Acct: [id number] Name: MAXIME AMARAL Rep #:[id number] : 1935 87 From: Sylvester Crooks MD PCP: ALANNAH BENITO Status:ADM IN Location: TCU TCU10-1 HPI - General General Date of Admission: 11/13/22 Date of Service: 11/13/22 Chief Complaint: Here for rehabilitation. HPI Narrative 11/11/2022 MAXIME AMARAL, is a 87 Female who presents to [facility] Emergency Department with nausea, vomiting, diarrhea. 11/11/2022 EKG normal sinus rhythm, normal EKG. Increasing lethargy for 2 weeks, not walking, refusing meals. Sodium 127, Pain all over. WBC 13.9, Hemoglobin 13.5, Sodium 127, K 3.4. BUN 21, Creatinine 1.3, Ammonia okay. CT abdomen/pelvis negative. IV fluids, IV potassium given. 11/11/2022 Admit to Hospital. Evaluate low sodium, check AM cortisol, give normal saline IV. IV potassium, check magnesium for hypokalemia. PT/OT for debility. Urinalysis negative. 11/12/2022 Feeling tired, but better. consider Mirtazapine for appetite loss. 11/13/2022 Admit to TCU with debility, here for rehabilitation, strengthening, prior to discharge to [facility]. [facility] Medical History Alzheimer's disease, unspecified Depression, unspecified GERD (gastroesophageal reflux disease) Hypertensive chronic kidney disease with stage 1 through stage 4 chronic kidney disease, or unspecified chronic kidney disease Hypothyroidism, unspecified Type 2 diabetes mellitus with unspecified complications Home Medications metformin 500 mg tablet 500 mg PO DAILY DIABETES 11/10/13 [History Last Taken 11/10/22] propranolol 20 mg tablet 20 mg PO DAILY tremors 11/10/13 [History Last Taken 11/10/22] levothyroxine 25 mcg tablet 25 mcg PO DAILY THYROID 02/08/17 [History Last Taken 11/10/22] atorvastatin 10 mg tablet 10 mg PO QHS CHOLESTEROL 11/11/22 [History Last Taken 11/10/22] cholecalciferol (vitamin D3) 1,250 mcg (50,000 unit) tablet 1,250 mcg PO WE SUPPLEMENT 11/11/22 [History Last Taken Unknown] donepezil 10 mg tablet 100 mg PO QHS MEMORY 11/11/22 [History Last Taken 11/09/22] raloxifene 60 mg tablet 60 mg PO DAILY Check with primary doctor 11/12/22 [History Last Taken 11/10/22] bupropion HCl 150 mg 24 hr tablet, extended release 150 mg PO DAILY mood 11/13/22 [History Last Taken Unknown] food supplemt, lactose-reduced 0.08 gram-1.5 kcal/mL oral liquid (Ensure Plus High Protein) 120 ml PO 4X/DAY ensure 11/13/22 [History Last Taken Unknown] Allergy/AdvReac Type Severity Reaction Status Date / Time Penicillins [PCN] AdvReac Diarrhea Verified 11/11/22 16:49 Family History Other Diabetes Surgical History H/O section History of bowel resection Social History (Updated 11/13/22 @ 19:[address] Sylvester Crooks MD) housing: assisted living facility Smoking Status: Never smoker alcohol intake: never substance use type: does not use ROS Constitutional Constitutional: Denies chills, fever(s) or weight gain ENT HEENT: Denies headache(s), nasal congestion or nasal discharge Cardiovascular Cardiovascular: Denies chest pain or palpitations Respiratory/Chest Respiratory/Chest: Denies cough, excessive phlegm production or shortness of breath with exertion Gastrointestinal Gastrointestinal: Denies abdominal pain, nausea or vomiting Genitourinary Genitourinary: Denies dysuria Musculoskeletal Musculoskeletal: Denies joint pain or joint swelling Integumentary Integumentary: Denies rash or wounds Neurologic Neurologic: Denies focal weakness, numbness or tingling Psychiatric Psychiatric: Denies anxiety, auditory hallucinations, depression, homicidal ideation or suicidal ideation Vital Signs Vital Signs Vital Signs: 11/13/22 16:49 Temperature 97.1 F L Temperature Source Temporal Pulse Rate 69 Respiratory Rate 16 Blood Pressure 146/50 H Blood Pressure Mean 82 Blood Pressure Source Monitor Blood Pressure Position Semi-Fowlers Blood Pressure Location Left Arm Pulse Ox 98 Oxygen Delivery Method Room Air Weight Weight: 56.472 kg Body Mass Index (BMI) 26.0 Physical Exam Const alert General Appearance: cooperative HEENT normocephalic Eyes PERRL and EOMs intact bilaterally Neck supple, no JVD and no carotid bruits Resp normal respiratory effort, normal air movement and clear to auscultation bilaterally Cardio regular rate and regular rhythm GI normal to inspection, nondistended, normoactive bowel sounds, non-tender and non-distended Extremity normal capillary refill General Extremity: Negative for edema Skin no rashes or lesions noted General Skin Exam: no breakdown Psych affect normal Appearance: appropriate Assessment & Plan Assessment/Plan (1) Debility: (2) Hyponatremia: (3) Dehydration: (4) Diabetes mellitus: (5) Hypertension: (6) Hypothyroidism: (7) Hyperlipidemia: (8) Alzheimer disease: (9) Depression: PLAN: Plan 87 year old female with below past medical history hospitalized for weakness secondary to hyponatremia, dehydration, admitted to TCU with debility, here for rehabilitation, strengthening, prior to discharge to [facility]. * Debility - PT/OT. * Cognition - ST. * Pain - Tylenol 1000mg q6h prn pain (1-10). * Bowel - senna/colace 1 tablet bid, Dulcolax 10mg pr daily prn. * Adult immunization - Administer pneumonia vaccine, covid19 vaccine, flu vaccine as appropriate. * DVT prophylaxis - HAS-BLED 1 intermediate risk of bleeding, Maru 4 high risk of blood clots, overall risk intermediate, Rx Xarelto 10mg daily x 2 weeks. * Hyperlipidemia - Atorvastatin 10mg qhs. * Depression - Bupropion XL 150mg daily, stable chronic [place] [facility] use, GDR not recommended. * Alzheimer Disease - Donepezil 10mg qhs. * Nutrition - Ensure Plus 120ml 4x/day. * Vitamin D deficiency - D2 1.25mg qweek. * Hypothyroidism - Levothyroxine 25mcg daily. * Diabetes Mellitus II - Metformin 500mg daily. * Hypertension - Propranolol 20mg daily. * Osteoporosis - Evista 60mg daily. 11/13/221953 <Electronically signed by Sylvester Crooks MD> Cosigner Signature (if applicable): CC: Dr. Sylvester Crooks MD; ALANNAH BENITO~ Signed ADDENDUM by Dr. Sylvester Crooks MD on 11/19/22 at 1700 Addendum Appetite loss - Rx Mirtazapine 7.5mg qhs. 11/19/22 1700<Electronically signed by Sylvester Crooks MD> Cosigner Signature (if applicable): cc: Dr. Sylvester Crooks MD; ALANNAH BENITO ~* Signed [facility] Work Phone: [phone] Crooks [facility] November 14, 2022 7:27pm Note Date/Time November 14, 2022 3:5 3pm [facility] Medical Records Department [address] [place] [address] Progress Note - Pharmacy 11/14/22 1531 MR#: [id number] Acct: [id number] Name: MAXIME AMARAL Rep #:[id number] : 1935 87 From: Roselyn Garzon PCP: ALANNAH BENITO Status:ADM IN Location: TCU [place] [address] TCU RX Drug Regimen Review Subjective: TCU Admission. 87 YOF presented to the ER with nausea/vomiting/diarrhea. Hospitalized for weakness secondary to hyponatremia, dehydration. Admitted to TCU with debility for strengthening and rehabilitation. Objective: Allergies Penicillins [PCN] Adverse Reaction (Verified 11/11/22 16:49) Diarrhea Current Medications Generic Name Dose Route Start Last Admin Trade Name Freq PRN Reason Stop Dose Admin Acetaminophen 1,000 mg 11/13/22 19:54 11/14/22 11:56 Acetaminophen 500 Mg Tablet PO 1,000 mg Q6H PRN PRN Administration Pain Score 1-10 Atorvastatin Calcium 10 mg 11/13/22 22:00 11/13/22 21:23 Atorvastatin Calcium 10 Mg Tablet PO 10 mg QHS ZOHRA Administration Bisacodyl 10 mg 11/13/22 16:55 Bisacodyl 10 Mg Suppository RC DAILY PRN Constipation Bupropion HCl 150 mg 11/14/22 06:00 11/14/22 05:33 Bupropion (Xl) 150 Mg Tablet.Xl PO 150 mg DAILY ZOHRA Administration Compound Med 2 click 11/14/22 08:00 11/14/22 08:47 Arthritis Pain Compound 60 Click Tube TOPICAL 2 click BID ZOHRA Administration Protocol Donepezil HCl 10 mg 11/13/22 22:00 11/13/22 21:23 Donepezil Hcl 10 Mg Tablet PO 10 mg QHS ZOHRA Administration Ergocalciferol 1.25 mg 11/19/22 06:00 Ergocalciferol 1.25 Mg (50, 000 Unit) Capsule PO [facility] Hydrocortisone 1 applic 11/14/22 08:00 Hydrocortisone 2.5% Crm TOPICAL TID PRN PRN Hemorrhoids Protocol Levothyroxine Sodium 25 mcg 11/14/22 06:00 11/14/22 05:33 Levothyroxine 25 Mcg Tablet PO 25 mcg DAILY ZOHRA Administration Loratadine 10 mg 11/13/22 21:00 11/14/22 05:35 Loratadine 10 Mg Tablet PO 10 mg DAILY ZOHRA Administration Melatonin 10 mg 11/14/22 22:00 Melatonin 10 Mg Tablet PO QHS ZOHRA Metformin HCl 500 mg 11/14/22 08:00 11/14/22 08:47 Metformin Hcl 500 Mg Tablet PO 500 mg DAILYCM ZOHRA Administration Nutritional Formula (Lactose Free) 120 ml 11/13/22 17:00 11/14/22 11:59 Ensure Plus High Protein 120 Ml Liquid PO 120 ml 4X/DAY ZOHRA Administration Propranolol HCl 20 mg 11/14/22 06:00 11/14/22 05:32 Propranolol 10 Mg Tablet PO 20 mg DAILY ZOHRA Administration Raloxifene HCl 60 mg 11/14/22 06:00 11/14/22 05:33 Raloxifene Hcl 60 Mg Tablet PO 60 mg DAILY ZOHRA Administration Rivaroxaban 10 mg 11/14/22 17:00 Rivaroxaban 10 Mg Tablet PO 11/28/22 17:01 DINNER ZOHRA Senna/Docusate Sodium 1 tablet 11/13/22 20:00 11/14/22 05:32 Senna/Docusate Sodium 1 Tablet PO 1 tablet BID ZOHRA Administration Sodium Chloride 10 - 40 ml 11/13/22 17:16 11/14/22 08:54 0.9% Saline Lock 10 Ml Syringe IV 10 ml UD PRN Administration SALINE FLUSH Tuberculin PPD 0.1 ml 11/21/22 10:00 Tuberculin,Purif.Prot.Deriv. 50 Tu/Ml Vial ID 11/21/22 10:01 X1 ONE Problem List (Last Reviewed 11/13/22 @ 19:[address] Sylvester Crooks MD) Depression (Acute) Alzheimer disease (Acute) Hyperlipidemia (Acute) Hypothyroidism (Acute) Hypertension (Chronic) Diabetes mellitus (Acute) Dehydration (Acute) Hyponatremia (Acute) Debility (Acute) Vital Signs Temp Pulse Resp BP Pulse Ox O2 Del Method 97.1 F L 82 16 158/65 H 98 Room Air 11/13/22 16:49 11/14/22 05:29 11/13/22 16:49 11/14/22 05:29 11/13/22 16:49 11/13/22 23:00 Oxygen Delivery Method Room Air Weight: 56.472 kg Body Mass Index (BMI) 26.0 Sodium 134 mmol/L (136-145) L 11/14/22 05:15 Potassium 3.8 mmol/L (3.5-5.1) 11/14/22 05:15 Chloride 104 mmol/L (98-107) 11/14/22 05:15 Carbon Dioxide 28.0 mmol/L (21.0-32.0) 11/14/22 05:15 Anion Gap 2 (5-15) L 11/14/22 05:15 BUN 8 mg/dL (7-18) 11/14/22 05:15 Creatinine 0.71 mg/dL (0.55-1.02) 11/14/22 05:15 Est GFR (MDRD) Af Amer 100 mL/min (>60) 11/14/22 05:15 Est GFR (MDRD) Non-Af 83 mL/min (>60) 11/14/22 05:15 BUN/Creatinine Ratio 11.2 RATIO (10-20) 11/14/22 05:15 Glucose 148 mg/dL (74-106) H 11/14/22 05:15 Assessment/Plan: 1. Pain: acetaminophen 1000mg PO Q6H PRN pain 1-10 and Arthritis Pain compound 2 clicks topically to the left knee BID. Resident has used 1 dose for generalized pain of 4. Please continue to monitor for increased pain and PRN usage. 2. Bowel: senna/docusate 1T PO BID and bisacodyl 10mg RC daily PRN constipation. Please continue to monitor for constipation and PRN usage. No PRN doses have been given and last documented bowel movement from 11/12. 3. DVT prophylaxis: rivaroxaban 10mg PO dinner thru 11/28/22. Please continue to monitor for S/S of bleeding/DVT and hemoglobin (last 11.1g/dL). 4. Hyperlipidemia: atorvastatin 10mg PO QHS. Please considering order a lipid panel if clinically appropriate as this resident has not had one since 12/2016. Thanks. Please continue to monitor for muscle pain and LFTs (last WNL 11/13/22). 5. Alzheimer disease: donepezil 10mg PO QHS. Please continue to monitor for S/S of Alzheimer disease and GI side effects (resident was admitted due to nausea/vomiting/diarrhea which is common with this medication). 6. Hypothyroidism: levothyroxine 25mcg PO daily. Please continue to monitor for S/S of hypo/hyperthyroidism and TSH (last 11/13/22). 7. Diabetes mellitus II: metformin 500mg PO DAILYCM. Please continue to monitor hemoglobin A1c (last 7% 11/12/22), glucose (last 172mg/dL), hypoglycemia, diarrhea/nausea and GFR (last >60mL/min). 8. Hypertension: propranolol 20mg PO daily. Please continue to monitor HR (last 82) and BP (last 158/65). 9. Osteoporosis: raloxifene 60mg PO daily. Please continue to monitor for VTE (black box warning), hot flashes and LFTs. 10. Vitamin D deficiency: ergocalciferol 1.25mg PO Wednesdays. Please continue to monitor vitamin D levels (last 11/12/22). 11. Hemorrhoids: hydrocortisone 2.5% cream 1 application TID PRN hemorrhoids. Resident has not used any PRN doses. Please continue to monitor for hemorrhoids and PRN usage. Assessment/Plan for indications treated with psychotropic medications: 1. Depression: bupropion XL 150mg PO daily. Please see physician note regarding GDR. Please continue to monitor for suicidal ideation (black box warning) and agitation. Medical chart and medication regimen reviewed. The following medication irregularities or issues were identified: *1. Atorvastatin 10mg PO QHS. Please considering order a lipid panel if clinically appropriate as this resident has not had one since 12/2016. Thanks. *2. Loratadine 10mg PO daily and melatonin 10mg PO QHS do not have documented indications. Please consider adding the indications if medications as needed. Thanks. Date of Note:: 11/14/22 11/14/22 7813 <Electronically signed by Roselyn Garzon > Roselyn Garzon Cosigner Signature (if applicable): 11/14/221926 <Electronically signed by Sylvester Crooks MD> CC: ~ Signed [facility] Work Phone: [phone]) 706-367004-27-[address] Betancur [facility] November 13, 2022 2:06pm Note Date/Time November 13, 2022 1:5 6pm [facility] Medical Records Department [address] [place] [address] Transfer to [facility] Care MR#: [id number] Acct: [id number] Name: MAXIEM AMARAL Rep #:[id number] : 1935 87 From: Bernice Betancur MD PCP: ALANNAH BENITO Status:ADM IN Certification of patient admission REQUIRED AT TIME OF ADMISSION. I CERTIFY THAT POST-HOSPITAL ECF SERVICES ARE REQUIRED TO BE GIVEN ON AN IN-PATIENT BASIS BECAUSE OF THE ABOVE NAMED PATIENT'S NEED FOR RESIDENTIAL CARE ON A CONTINUING BASIS FOR THE CONDITION(S) FOR WHICH HE/SHE WAS RECEIVING IN-PATIENT HOSPITAL SERVICES PRIOR TO HIS/HER TRANSFER TO THE [facility]. 11/13/22 1406<Electronically signed by Bernice Betancur MD> Diet Diet Order/Speech Therapy: 11/12/22 11:06 Diet: Regular - General Is pt able to select menu?: Yes Routine Orders/Code Status Suppository Type: Dulcolax 10mg Suppository Frequency: Daily PRN Routine Lab Work: BMP (3-5 days) Code Status: DNRCC Therapies Physical Therapy: Eval and Treat Occupational Therapy: Eval and Treat Problem/Diagnosis (1) Hyponatremia: Status: Acute Code(s): E87.1 - Hypo-osmolality and hyponatremia (2) Hypokalemia: Status: Acute Code(s): E87.6 - Hypokalemia (3) Hypertension: Status: Chronic Code(s): I10 - Essential (primary) hypertension (4) Weakness: Status: Acute Code(s): R53.1 - Weakness (5) Declining functional status: Status: Acute Code(s): R53.81 - Other malaise Plan 87-year-old female with hypothyroidism and dementia who presented to [facility] 11/11/2022 with a sodium of 127 at her assisted living that day. She had been down and tired for 2 to 3 weeks and had been sleeping a lot and not eating or drinking and then she had 2 days of nausea vomiting and diarrhea which had since resolved. She was admitted for her sodium and failure to thrive and weakness given her presentation it seemed to be due to dehydration. She was hydrated and improved though did still seem somewhat tired and down despite improvement in strength and sodium. Had a cortisol of 20.2 and slightlyelevated bilirubin but suspect this was due to the acute stress and given no signs or symptoms of hypercortisolism do not perform stim test, count was repeated on outpatient basis and consider further work-up if indicated after acute hospitalization. Patient did end up having a downtrend in hemoglobin though given the fluids suspect this is delusional. Discussed with her and her daughter at bedside about FOBT risks and benefits and ultimately they decided ifit was positive they would not want to pursue any further work-up or interventions and this was canceled. Iron panel suggestive of anemia of chronicdisease. Vitamin D43.8 And vitamin B12 583, TSH 1.14. No indication of any abnormality that would lead to fatigue and down mood. After discussing with daughter do suspect there may be an aspect of depression and it reports that Zoloft if anything made things worse, this has been discontinued and discussed Wellbutrin with her and her daughter and they were agreeable to help with energy. Discussed that weight will need to be monitored but suspect if her moodimproves her appetite will as well. Had discussed initially with Jailene but given her feelings of being tired all the time feel Wellbutrin would be a betterfit. Denies history of seizure disorder. On day of discharge overall she had felt better but still feeling down and somewhat tired. No other complaints voiced. Discharge instructions as followed: -It is recommended that you focus on nutrition and hydration, recommend a food supplement 4 times daily like Ensure or similar -Recommend BMP to check your creatinine and sodium in 3 to 5 days -You have been taken off of Zoloft, please discontinue this -You have been started on Wellbutrin to help with energy and mood, you will takethis in the morning daily -Your propranolol was changed to 10 mg twice daily #Failure to thrive #Hyponatremia improving #Low mood #Elevated total bi resolved #Hypothyroidism Allergies/Procedures Done in Hospital Allergies Penicillins [PCN] Adverse Reaction (Verified 11/11/22 16:49) Diarrhea Procedures: - (CT abd) Type of Care/Length of Stay Estimated LOS: Convalescent Care Less Than 30 days Type of Care Needed: Skilled Rehab Potential: Fair Prognosis: Fair Additional Orders/Day of Discharge Day of Discharge: 11/13/22 Dietary and Speech Recommendations Dietitian Recommendations/Changes: will liberalize diet to regular and adjust ONS to ensure plus high protein 120mL 4x/day w/ medpass given advanced age, evidence of malnutrition. Discharge Plan Admission Admit Date/Time: 11/11/22 21:22 Primary Reason for Your Visit: Abnormal labs and weakness Attending Provider: Bernice Betancur Primary Care Provider: ALANNAH BENITO Consulting Providers: Ryder Brody Instructions Patient Instructions: ED Fall Prevention Additional Instructions / Restrictions: DISCHARGE INSTRUCTIONS PLEASE READ *Please take this with you to your next doctors appointment* -It is recommended that you focus on nutrition and hydration, recommend a food supplement 4 times daily like Ensure or similar -You have been taken off of Zoloft, please discontinue this -You have been started on Wellbutrin to help with energy and mood, you will take this in the morning daily -Your propranolol was changed to 10 mg twice daily -Please call your primary care provider's office upon discharge to schedule a hospital follow up within 1 week. -For any concerning signs or symptoms please call 911 or proceed to the nearest emergency department Discharge Orders/Prescriptions Prescriptions: New bupropion HCl 150 mg Tablet Extended Release 24 Hr 150 mg PO DAILY 30 Days Qty: 30 0RF Ensure Plus High Protein 0.08 gram-1.5 kcal/mL Liquid 120 ml PO 4X/DAY Qty: 237 0RF Continued metformin 500 MG tablet 500 mg PO DAILY propranolol 20 MG tablet 20 mg PO DAILY levothyroxine 25 MCG tablet 25 mcg PO DAILY atorvastatin 10 mg tablet 10 mg PO QHS donepezil 10 mg tablet 100 mg PO QHS cholecalciferol (vitamin D3) 1,250 mcg (50,000 unit) Tablet 1,250 mcg PO WE raloxifene 60 mg Tablet 60 mg PO DAILY Referrals / Follow Up: ALANNAH BENITO [Other] Mariano Dao MD [Non-Staff] - Within 1 Week Disposition Disposition (needs filled in before D/C Order can be placed): Alf Facility 11/13/22 1406 <Electronically signed by Bernice Betancur MD> Cosigner Signature (if applicable): CC: Dr. Ryder Brody MD; ALANNAH BENITO ~ [facility] Work Phone: [phone] Betancur [facility] November 12, 2022 4:53pm Note Date/Time November 12, 2022 7:0 0am [facility] Medical Records Department [address] [place] [address] Progress Note - Hospitalist 11/12/22 0659 MR#: [id number] Acct: [id number] Name: MAXIME AMARAL Rep #:[id number] : 1935 87 From: Bernice Betancur MD PCP: ALANNAH BENITO Status:ADM IN Location: [place] [address] Reason for Visit Reason for Visit: Diagnoses Hypo-osmolality and hyponatremia (11/11/22) Hypokalemia (11/11/22) Essential (primary) hypertension (11/11/22) Weakness (11/11/22) Other malaise (11/11/22) Subjective Subjective Reports feeling somewhat tired today but does feel better than she did yesterday Objective Data Objective Data Vital Signs: Vital Signs Temp Pulse Resp BP Pulse Ox O2 Del Method 98.3 F 78 18 124/41 H 99 Room Air 11/12/22 04:50 11/12/22 04:50 11/12/22 04:50 11/12/22 04:50 11/12/22 04:50 11/12/22 04:50 Oxygen Delivery Method Room Air Weight: 55.5 kg Body Mass Index (BMI) 25.5 Intake & Output: Intake and Output for Last 24 Hours 11/10/22 11/11/22 11/12/22 23:59 23:59 23:59 Intake Total 1400 / 1400 Balance 1400 / 1400 Lab / Micro Data Result Diagrams: 11/12/22 06:16 11/12/22 00:09 Labs: Laboratory Results - last 24 hr 11/11/22 16:42: WBC 13.9 H, RBC 4.23, Hgb 13.5, Hct 37.5, MCV 88.7, MCH 31.9, MCHC 36.0, RDW Std Deviation 39.2, RDW Coeff of Kristal 12.0, Plt Count 506 H, MPV 8.8, Immature Gran % (Auto) 0.400, Neut % (Auto) 59.4, Lymph % (Auto) 31.3, Jewell% (Auto) 7.4, Eos % (Auto) 0.9, Baso % (Auto) 0.6, Absolute Neuts (auto) 8.3 H, Absolute Lymphs (auto) 4.35, Nucleated RBC % 0 11/11/22 16:42: Sodium 127 L, Potassium 3.4 L, Chloride 91 L, Carbon Dioxide 28.0, Anion Gap 8, BUN 21 H, Creatinine 1.30 H, Estim Creat Clear Calc 27.90, Est GFR (MDRD) Af Amer 50 L, Est GFR (MDRD) Non-Af 41 L, BUN/Creatinine Ratio 16.2, Glucose 159 H, Calcium 9.9, Total Bilirubin 1.90 H, Direct Bilirubin 0.47 H, AST 25, ALT 30, Alkaline Phosphatase 45, Troponin I High Sens 13, Total Protein 7.4, Albumin 3.9, Globulin 3.5 11/11/22 16:42: Uric Acid 4.3, Magnesium 1.6 11/11/22 17:43: Ammonia 16.0 11/11/22 19:47: Urine Color Yellow, Urine Clarity Clear, Urine pH 6.0, Ur Specific [place] 1.010, Urine Protein Negative, Urine Glucose (UA) Normal, UrineKetones 5 H, Urine Occult Blood Negative, Urine Nitrite Negative, Urine Bilirubin Negative, Urine Urobilinogen Normal, Ur Leukocyte Esterase Negative, Urine RBC 0 SEEN, Urine WBC 0 SEEN, Ur Squamous Epith Cells 0 SEEN, Urine Bacteria 0 SEEN, Urine Mucus 0 SEEN 11/11/22 19:47: Urine Osmolality 227, Ur Random Sodium 8 11/11/22 22:17: Serum Osmolality 277 L 11/12/22 00:09: Sodium 132 L, Potassium 4.1, Chloride 102, Carbon Dioxide 25.0, Anion Gap 5, BUN 17, Creatinine 1.03 H, Estim Creat Clear Calc 34.35, Est GFR (MDRD) Af Amer 65, Est GFR (MDRD) Non-Af 54 L, BUN/Creatinine Ratio 16.5, Glucose 139 H, Calcium 8.4 L 11/12/22 00:09: POC Glucose 136 H 11/12/22 05:26: WBC Cancelled, Corrected WBC Cancelled, RBC Cancelled, Hgb Cancelled, Hct Cancelled, MCV Cancelled, MCH Cancelled, MCHC Cancelled, RDW Std Deviation Cancelled, RDW Coeff of Kristal Cancelled, Plt Count Cancelled, MPV Cancelled, Immature Gran % (Auto) Cancelled, Neut % (Auto) Cancelled, Lymph % (Auto) Cancelled, Jewell % (Auto) Cancelled, Eos % (Auto) Cancelled, Baso % (Auto)Cancelled, Absolute Neuts (auto) Cancelled, Absolute Lymphs (auto) Cancelled, Total Counted Cancelled, Neutrophils % (Manual) Cancelled, Band Neutrophils % Cancelled, Lymphocytes % (Manual) Cancelled, Monocytes % (Manual) Cancelled, Eosinophils % (Manual) Cancelled, Basophils % (Manual) Cancelled, Metamyelocytes% Cancelled, Myelocytes % Cancelled, Promyelocytes % Cancelled, Blast Cells % Cancelled, Plasma Cell % (Manual) Cancelled, Other Cells % Cancelled, Nucleated RBC % Cancelled, Nucleated RBCs/100 WBC Cancelled, Differential Comment Cancelled, Diff Path Review Cancelled, Hypersegmented Neuts Cancelled, Atypical Lymphocytes Cancelled, Reactive Lymphocytes Cancelled, Smudge Cells Cancelled, Toxic Granulation Cancelled, Toxic Vacuolation Cancelled, Dohle Bodies Cancelled, Joaquín Rods Cancelled, Platelet Estimate Cancelled, Plt Morphology Comment Cancelled, RBC Morphology Cancelled, Polychromasia Cancelled, Hypochromasia Cancelled, Poikilocytosis Cancelled, Basophilic Stippling Cancelled, Anisocytosis Cancelled, Microcytosis Cancelled, Macrocytosis Cancelled, Spherocytes Cancelled, Sickle Cells Cancelled, Target Cells Cancelled, Tear Drop Cells Cancelled, Ovalocytes Cancelled, Stomatocytes Cancelled, [place] Bodies Cancelled, Dixie Cells Cancelled, Bite Cells Cancelled, Crenated Cell Cancelled, Acanthocytes (Spur) Cancelled, Rouleaux Cancelled, Schistocytes Cancelled 11/12/22 05:26: Vitamin D 25-Hydroxy 43.8, Cortisol 28.20 H 11/12/22 05:26: Total Bilirubin 1.60 H, Direct Bilirubin 0.41 H, AST 20, ALT 19,Alkaline Phosphatase 36 L, Total Protein 5.7 L, Albumin 2.9 L, Globulin 2.8 11/12/22 05:47: POC Glucose 121 H 11/12/22 06:16: WBC 11.8 H, RBC 3.49 L, Hgb 11.0 L, Hct 31.9 L, MCV 91.4, MCH 31.5, MCHC 34.5, RDW Std Deviation 41.6, RDW Coeff of Kristal 12.6, Plt Count 359, MPV 8.3, Immature Gran % (Auto) 0.400, Neut % (Auto) 63.6, Lymph % (Auto) 26.7, Jewell % (Auto) 7.1, Eos % (Auto) 1.4, Baso % (Auto) 0.8, Absolute Neuts (auto) 7.5, Absolute Lymphs (auto) 3.14, Nucleated RBC % 0 Radiography Diagnostic Testing: Radiology Impression Brain CT 11/11/22 17:06 IMPRESSION: There are no acute findings. Chronic involutional changes of the brain. Electronically Signed: Abran Collins MD at 18:15 EDT , Chest X-Ray 11/11/22 17:33 IMPRESSION: There are no acute findings. Electronically Signed: Abran Collins MD at 18:17 EDT , Abdomen/Pelvis CT 11/11/22 19:02 IMPRESSION: (NOT LISTED IN ORDER OF SIGNIFICANCE) There are multiple colonic diverticula consistent with diverticulosis. Other findings as above. Electronically Signed: Abran Collins MD at 20:31 EDT , Physical Exam Narrative General: Alert though appears tired, oriented, no apparent distress HEENT: Atraumatic, normocephalic Eyes: Anicteric, normal conjunctiva, extraocular movements grossly intact Neck: Supple Respiratory: Clear to auscultation bilaterally, normal respiratory effort Cardiovascular: Regular rate and rhythm GI: Soft, nontender, nondistended Extremities: Nonpitting edema lower extremities Musculoskeletal: Moving all extremities Neuro: No overt focal neurological deficits Skin: No rashes appreciated Psych: Cooperative Assessment & Plan Assessment/Plan (1) Hyponatremia: (2) Hypokalemia: (3) Hypertension: (4) Weakness: (5) Declining functional status: PLAN: Plan #Failure to thrive -Poor appetite, weakness, functional decline -Sodium 127 on arrival which was felt to be due to her dehydration and was hydrated and this improved -Had a cortisol of 20.2 but given acute hospitalization and illness suspect thisis reactive and she does not have any predictive features and does not seem to have any unexplained severe features so do not feel an overnight suppression test is warranted at this time and am cortisol can be rechecked after acute issues resolve -We will obtain TSH and vitamin B12 -PT/OT -Will consider remeron to help with appetite pending her AM labs and progress with continued hydration #Hyponatremia -127 on admission, improved to 132 with hydration -Have continue gentle hydration and consulted nutrition #Elevated bilirubin -Bilirubin 1.6 with direct 0.41 slightly down from yesterday but no elevation inAST or ALT and ALP is low at 36 -CT abd pelvis in ED unimpressive -Tbili was 0.6 on 08/25/22, likely reactive to acute stress and dz, continue to trend. May require further evaluation if not improving. #Hypothyroidism -We will check TSH -Continue Synthroid DVT prophylaxis Subcutaneous Lovenox ordered. Charges/Coding Visit Charges Inpatient E&M: 21619 Subs Hosp L2 11/12/22 4143 <Electronically signed by Bernice Betancur MD> Cosigner Signature (if applicable): CC: ~ Signed [facility] Work Phone: [phone]) [phone] Ewing [facility] November 11, 2022 11:41pm Note Date/Time November 11, 2022 5:3 3pm [facility] Medical Records Department [address] [place] [address] [place] [address] Emergency Department Summary 11/11/22 MR#: [id number] Acct: [id number] Name: MAXIME AMARAL Rep #:[id number] : 1935 87 From: Nancy Ewing MD PCP: ALANNAH BENITO Status:ADM IN Location: MS3 XM118-0 HPI History of Present Illness Chief Complaint: Nausea/Vomiting/Diarrhea Detail of Chief Complaint: Generalized weakness Informant: patient and family Onset/Context/Timing Onset: Weeks Narrative Narrative: Patient presents via EMS from assisted living at [facility]. Son is at bedside and provides much of the history. He notes that over the last 2+ weeks patient has had increasing lethargy. She has not been wanting to get up to walk at all and has been refusing her meals. Lab work today reportedly showed that her sodium had dropped to 127 and she was sent in. Patient complains of allover body pain. She denies fever or cough. [facility] Medical History Alzheimer's disease, unspecified Depression, unspecified GERD (gastroesophageal reflux disease) Hypertensive chronic kidney disease with stage 1 through stage 4 chronic kidney disease, or unspecified chronic kidney disease Hypothyroidism, unspecified Type 2 diabetes mellitus with unspecified complications Home Medications metformin 500 mg tablet 500 mg PO DAILY DIABETES 11/10/13 [History Last Taken 02/06/17 08:00] propranolol 20 mg tablet 20 mg PO DAILY BLOOD PRESSURE 11/10/13 [History Last Taken 02/06/17 08:00] levothyroxine 25 mcg tablet 25 mcg PO DAILY THYROID 02/08/17 [History Last Taken 02/06/17 08:00] atorvastatin 10 mg tablet 10 mg PO QHS CHOLESTEROL 11/11/22 [History Last Taken Unknown] cholecalciferol (vitamin D3) 1,250 mcg (50,000 unit) tablet 1,250 mcg PO WE SUPPLEMENT 11/11/22 [History Last Taken Unknown] donepezil 10 mg tablet 100 mg PO QHS MEMORY 11/11/22 [History Last Taken Unknown] sertraline 25 mg tablet 25 mg PO QODAY DEPRESSION/ANXIETY 11/11/22 [History Last Taken Unknown] Allergy/AdvReac Type Severity Reaction Status Date / Time Penicillins [PCN] AdvReac Diarrhea Verified 11/11/22 16:49 Social History Smoking Status: Never smoker ROS ROS ED Constitutional Constitutional ED: Denies chills or fever(s) ENT ENT ED: Denies rhinorrhea or sore throat Cardiovascular Cardiovascular: Denies chest pain or palpitations Respiratory/Chest Respiratory/Chest: Denies cough or dyspnea Gastrointestinal Gastrointestinal: Reports abdominal pain, diarrhea, nausea and vomiting Genitourinary Genitourinary ED: Denies dysuria Musculoskeletal Musculoskeletal: Reports myalgias; Denies back pain or extremity pain Integumentary Denies Abrasions or rash Neurologic Neurologic: Reports weakness; Denies headache(s) Allergic/Immunologic Allergic/Immunologic ED: Denies lip swelling or urticaria EXAM Physical Exam Narrative Exam Narrative: Resting both eyes closed. Will answer questions of specifically asked, however let son answer most questions. Const Vital Signs: 11/11/22 16:37 11/11/22 16:48 11/11/22 18:38 Temperature 97 F L Temperature Source Temporal Pulse Rate 76 69 72 Respiratory Rate 19 H 13 14 Blood Pressure 140/61 H 139/48 H 123/48 H Blood Pressure Mean 87 78 73 Pulse Ox 99 99 96 Oxygen Delivery Method Room Air Room Air Room Air 11/11/22 19:04 Temperature Temperature Source Pulse Rate 70 Respiratory Rate 70 H Blood Pressure 118/50 L Blood Pressure Mean 72 Pulse Ox 96 Oxygen Delivery Method Room Air Positive well nourished and well developed General Appearance ED: well developed HEENT Reports normocephalic and head/scalp atraumatic Eyes PERRL and EOMs intact bilaterally Neck supple Chest Wall inspection of chest normal and palpation of chest normal Resp normal respiratory effort and clear to auscultation bilaterally Cardio regular rate and regular rhythm GI non-tender Auscultation: hypoactive bowel sounds Palpation: soft Extremity Extremity Narrative: 2+ bilateral lower extremity edema, symmetric Neuro Neuro Narrative: Patient alert and answers questions if directly asked. Speaks slowly. Psych mental status grossly normal Skin no rashes or lesions noted MDM MDM MDM Narrative Medical decision making narrative: Patient placed on potline monitor. EKG obtained to evaluate for cardiac arrhythmia/ischemia. Labwork obtained to evaluate for leukocytosis, anemia, and electrolyte derangement. Urinalysis obtained to evaluate for infection/hematuria. Normal saline initiated. History & Record Review Discussion w/independent historian: Family Lab Data Attestation: I reviewed the patient's lab results. Labs: Laboratory Results - last 24 hr 11/11/22 11/11/22 11/11/22 16:42 16:42 17:43 WBC 13.9 H RBC 4.23 Hgb 13.5 Hct 37.5 MCV 88.7 MCH 31.9 MCHC 36.0 RDW Std Deviation 39.2 RDW Coeff of Kristal 12.0 Plt Count 506 H MPV 8.8 Immature Gran % (Auto) 0.400 Neut % (Auto) 59.4 Lymph % (Auto) 31.3 Jewell % (Auto) 7.4 Eos % (Auto) 0.9 Baso % (Auto) 0.6 Absolute Neuts (auto) 8.3 H Absolute Lymphs (auto) 4.35 Nucleated RBC % 0 Sodium 127 L Potassium 3.4 L Chloride 91 L Carbon Dioxide 28.0 Anion Gap 8 BUN 21 H Creatinine 1.30 H Estim Creat Clear Calc 27.90 Est GFR (MDRD) Af Amer 50 L Est GFR (MDRD) Non-Af 41 L BUN/Creatinine Ratio 16.2 Glucose 159 H Calcium 9.9 Total Bilirubin 1.90 H Direct Bilirubin 0.47 H AST 25 ALT 30 Alkaline Phosphatase 45 Ammonia 16.0 Troponin I High Sens 13 Total Protein 7.4 Albumin 3.9 Globulin 3.5 Urine Color Urine Clarity Urine pH Ur Specific Acton Urine Protein Urine Glucose (UA) Urine Ketones Urine Occult Blood Urine Nitrite Urine Bilirubin Urine Urobilinogen Ur Leukocyte Esterase Urine RBC Urine WBC Ur Squamous Epith Cells Urine Bacteria Urine Mucus 11/11/22 19:47 WBC RBC Hgb Hct MCV MCH MCHC RDW Std Deviation RDW Coeff of Kristal Plt Count MPV Immature Gran % (Auto) Neut % (Auto) Lymph % (Auto) Jewell % (Auto) Eos % (Auto) Baso % (Auto) Absolute Neuts (auto) Absolute Lymphs (auto) Nucleated RBC % Sodium Potassium Chloride Carbon Dioxide Anion Gap BUN Creatinine Estim Creat Clear Calc Est GFR (MDRD) Af Amer Est GFR (MDRD) Non-Af BUN/Creatinine Ratio Glucose Calcium Total Bilirubin Direct Bilirubin AST ALT Alkaline Phosphatase Ammonia Troponin I High Sens Total Protein Albumin Globulin Urine Color Yellow Urine Clarity Clear Urine pH 6.0 Ur Specific Acton 1.010 Urine Protein Negative Urine Glucose (UA) Normal Urine Ketones 5 H Urine Occult Blood Negative Urine Nitrite Negative Urine Bilirubin Negative Urine Urobilinogen Normal Ur Leukocyte Esterase Negative Urine RBC 0 SEEN Urine WBC 0 SEEN Ur Squamous Epith Cells 0 SEEN Urine Bacteria 0 SEEN Urine Mucus 0 SEEN Radiography Chest X-Ray - ED: 1 View, Read by ED Physician, Chronic Changes and No Infiltrates Diagnostic Testing: Clinical Impression(s) from Imaging Studies Brain CT 11/11/22 17:06 IMPRESSION: There are no acute findings. Chronic involutional changes of the brain. Electronically Signed: Abran Collins MD at 18:15 EDT , Chest X-Ray 11/11/22 17:33 IMPRESSION: There are no acute findings. Electronically Signed: Abran Collins MD at 18:17 EDT , Abdomen/Pelvis CT 11/11/22 19:02 IMPRESSION: (NOT LISTED IN ORDER OF SIGNIFICANCE) There are multiple colonic diverticula consistent with diverticulosis. Other findings as above. Electronically Signed: Abran Collins MD at 20:31 EDT , EKG Initial EKG: Attestation: I personally reviewed and interpreted this EKG as follows: Interpretation: Sinus Rhythm (Sinus at 74 with no acute ischemia.) Treatment and Re-Evaluation :: CBC reveals a white count of 13.9 with normal differential. Hemoglobin normal at 13.5. Chemistry studies reveal a serum of 127 with a potassium of 3.4 and a chloride of 91. BUN is 21 and creatinine is 1.3. LFTs reveal a total bili of 1.9 and direct bili 0.47. ALT and AST are normal. Ammonia is normal at 16. Urinalysis reveals no evidence of acute infection. Nursing staff initially straight cath the patient for urinalysis. They report that her depends was dry with a were unable to get any urine with a catheter. In light of that a CT flank was obtained to ensure no obstructing cause. No acute findings are noted on CT of the abdomen and pelvis. At this time patient is being given normal saline secondary to her hyponatremia. IV potassium replacement is being given for her potassium level of 3.4. Patient has not been able to get up and ambulate or care for herself and is only in assisted living at this time. I will speak with hospitalist regarding admission for electrolyte correction and further evaluation by physical therapy. Son at bedside is updated. Discharge Plan Triage Chief Complaint: Nausea/Vomiting/Diarrhea ED Provider: Nancy Ewing Dx/Rx/DC Orders Clinical Impression: Weakness, Declining functional status, Hyponatremia, Hypokalemia Prescriptions: No Action metformin 500 MG tablet 500 mg PO DAILY propranolol 20 MG tablet 20 mg PO DAILY levothyroxine 25 MCG tablet 25 mcg PO DAILY atorvastatin 10 mg tablet 10 mg PO QHS donepezil 10 mg tablet 100 mg PO QHS sertraline 25 mg tablet 25 mg PO QODAY cholecalciferol (vitamin D3) 1,250 mcg (50,000 unit) Tablet 1,250 mcg PO WE Primary Care Provider: ALANNAH BENITO Referrals: Mariano Dao MD [Non-Staff] - Disposition Disposition: Acute Care Hospital [facility] What to do if you have Problems For any increased pain, shortness of breath, bleeding, nausea or vomiting, chestpain, or any unexpected problems, contact your Primary Care Provider. Call [facility] ([phone]) or report to the closest Emergency Room. Call 911 if necessary. 11/11/222340 <Electronically signed by Nancy Ewing MD> Cosigner Signature (if applicable): CC: ALANNAH BENITO ~ Signed [facility] Work Phone: [phone] [phone] History and physical note Author Dr. Brody [facility] November 11, 2022 10:26pm Note Date/Time November 11, 2022 9:3 3pm [facility] Medical Records Department [address] [place] [address] [place] [address] H&P Exam - Hospitalist 11/11/222132 MR#: [id number] Acct: [id number] Name: MAXIME AMARAL Rep #:[id number] : 1935 87 From: Ryder Brody MD PCP: ALANNAH BENITO Status:ADM IN Location: [place] PI133-3 HPI - General General Date of Admission: 11/11/22 Date of Service: 11/11/22 Chief Complaint: Abnormal labs HPI Narrative MAXIME AMARAL, is a 87 F with a significant history of hypothyroidism and dementia; and who lives at assisted medicine facility at [facility] presenting to the emergency department with abnormal labs. Patient's sodium on the day of presentation was 127 at assisted living facility. For the past 2 to 3 weeks ago patient has been lethargic. She has been sleepinga lot. She has not been eating or drinking. Further patient has not been involving herself in any activity. Reportedly she has been very weak. Also twodays before presentation patient had nausea vomiting and diarrhea which has since resolved. At the emergency department initially urine catheterization produced no urine. However during the course of patient's stay at the emergency department patient could not urinate. [facility] Medical History Alzheimer's disease, unspecified Depression, unspecified GERD (gastroesophageal reflux disease) Hypertensive chronic kidney disease with stage 1 through stage 4 chronic kidney disease, or unspecified chronic kidney disease Hypothyroidism, unspecified Type 2 diabetes mellitus with unspecified complications Home Medications metformin 500 mg tablet 500 mg PO DAILY DIABETES 11/10/13 [History Last Taken 02/06/17 08:00] propranolol 20 mg tablet 20 mg PO DAILY BLOOD PRESSURE 11/10/13 [History Last Taken 02/06/17 08:00] levothyroxine 25 mcg tablet 25 mcg PO DAILY THYROID 02/08/17 [History Last Taken 02/06/17 08:00] atorvastatin 10 mg tablet 10 mg PO QHS CHOLESTEROL 11/11/22 [History Last Taken Unknown] cholecalciferol (vitamin D3) 1,250 mcg (50,000 unit) tablet 1,250 mcg PO WE SUPPLEMENT 11/11/22 [History Last Taken Unknown] donepezil 10 mg tablet 100 mg PO QHS MEMORY 11/11/22 [History Last Taken Unknown] sertraline 25 mg tablet 25 mg PO QODAY DEPRESSION/ANXIETY 11/11/22 [History Last Taken Unknown] Allergy/AdvReac Type Severity Reaction Status Date / Time Penicillins [PCN] AdvReac Diarrhea Verified 11/11/22 16:49 Family History Other Diabetes Surgical History H/O section History of bowel resection Social History Smoking Status: Never smoker ROS ROS Narrative Pertinent positives and pertinent negatives as noted in HPI. All other systems were reviewed and are negative Vital Signs Vital Signs Vital Signs: 11/11/22 16:37 11/11/22 16:48 11/11/22 18:38 Temperature 97 F L Temperature Source Temporal Pulse Rate 76 69 72 Respiratory Rate 19 H 13 14 Blood Pressure 140/61 H 139/48 H 123/48 H Blood Pressure Mean 87 78 73 Pulse Ox 99 99 96 Oxygen Delivery Method Room Air Room Air Room Air 11/11/22 19:04 Temperature Temperature Source Pulse Rate 70 Respiratory Rate 70 H Blood Pressure 118/50 L Blood Pressure Mean 72 Pulse Ox 96 Oxygen Delivery Method Room Air Weight Weight: 56.9 kg Body Mass Index (BMI) 26.2 Physical Exam Narrative Physical exam: General: Well-nourished, well-developed. Head: Normocephalic, atraumatic, no tenderness Eyes: Vision is grossly intact. EOMI ENT, no trauma, moist mucous membranes, no rhinorrhea Neck: Nontender, No thyromegaly. CVS: Regular rate and rhythm. S1-S2 present. No murmur, gallop or rub. Respiratory : clear to auscultation bilaterally, chest wall nontender Abdomen: Soft, nontender, nondistended, normal bowel sounds, no masses : Deferred Back: Nontender, no CVA tenderness Extremities: Nontender full range of motion, no trauma Skin: Normal color, no trauma, abrasions Neuro: Alert, oriented, cranial nerves II through XII grossly intact. Psychiatry: With family by bedside. Normal mood. Normal affect. Laughing. Results Lab / Micro Data Result Diagrams: 11/11/22 16:42 11/11/22 16:42 Labs: Laboratory Results - last 24 hr 11/11/22 16:42: WBC 13.9 H, RBC 4.23, Hgb 13.5, Hct 37.5, MCV 88.7, MCH 31.9, MCHC 36.0, RDW Std Deviation 39.2, RDW Coeff of Kristal 12.0, Plt Count 506 H, MPV 8.8, Immature Gran % (Auto) 0.400, Neut % (Auto) 59.4, Lymph % (Auto) 31.3, Jewell % (Auto) 7.4, Eos % (Auto) 0.9, Baso % (Auto) 0.6, Absolute Neuts (auto) 8.3 H, Absolute Lymphs (auto) 4.35, Nucleated RBC % 0 11/11/22 16:42: Sodium 127 L, Potassium 3.4 L, Chloride 91 L, Carbon Dioxide 28.0, Anion Gap 8, BUN 21 H, Creatinine 1.30 H, Estim Creat Clear Calc 27.90, Est GFR (MDRD) Af Amer 50 L, Est GFR (MDRD) Non-Af 41 L, BUN/Creatinine Ratio 16.2, Glucose 159 H, Calcium 9.9, Total Bilirubin 1.90 H, Direct Bilirubin 0.47 H, AST 25, ALT 30, Alkaline Phosphatase 45, Troponin I High Sens 13, Total Protein 7.4, Albumin 3.9, Globulin 3.5 11/11/22 17:43: Ammonia 16.0 11/11/22 19:47: Urine Color Yellow, Urine Clarity Clear, Urine pH 6.0, Ur Specific Acton 1.010, Urine Protein Negative, Urine Glucose (UA) Normal, Urine Ketones 5 H, Urine Occult Blood Negative, Urine Nitrite Negative, Urine Bilirubin Negative, Urine Urobilinogen Normal, Ur Leukocyte Esterase Negative, Urine RBC 0 SEEN, Urine WBC 0 SEEN, Ur Squamous Epith Cells 0 SEEN, Urine Bacteria 0 SEEN, Urine Mucus 0 SEEN Radiology Impression Brain CT 11/11/22 17:06 IMPRESSION: There are no acute findings. Chronic involutional changes of the brain. Electronically Signed: Abran Collins MD at 18:15 EDT , Chest X-Ray 11/11/22 17:33 IMPRESSION: There are no acute findings. Electronically Signed: Abran Collins MD at 18:17 EDT , Abdomen/Pelvis CT 11/11/22 19:02 IMPRESSION: (NOT LISTED IN ORDER OF SIGNIFICANCE) There are multiple colonic diverticula consistent with diverticulosis. Other findings as above. Electronically Signed: Abran Collins MD at 20:31 EDT , Assessment & Plan Assessment/Plan (1) Hyponatremia: (2) Hypokalemia: (3) Hypertension: (4) Weakness: (5) Declining functional status: PLAN: Plan Hyponatremia Sodium level at the assisted nursing facility on the day of presentation was 127 and repeat at the hospital on presentation was also 127. Chloride at the nursing facility was 87 and repeat at the hospital on presentation was 91. Review of patient record that patient brought from her assisted nursing facility shows that in August of 2022 her sodium was 137; and chloride at that time was 102. Likely secondary to poor intake and recent vomiting and diarrhea.. Normal saline hydration ordered. Trend BMP. Check a.m. cortisol. Check uric acid. Check urine sodium. Check serum and urine osmolality Hypokalemia On presentation her potassium was mildly low at 3.4. Received IV replacement. Will check magnesium. Trend BMP as above. Decline in functional status: Review of outpatient labs showed a TSH on 08/25/2022 was 3.19. PT and OT to work with patient. Case management consult. Leukocytosis: White count of 13.9. With normocytosis of 506, likely reactive/dehydration. Review of outpatient labs showed that her white count on 08/25/2022 was 6.6. Trend. Abdomen pelvis CT?impression by radiologist?There are multiple colonic diverticula consistent with diverticulosis. Abdomen/pelvis CT reviewed by hospitalist: Agrees with radiology interpretation. Urinalysis on presentation was reviewed: Not impressive. Hyperbilirubinemia: Total bilirubin on presentation was 1.90. Direct bilirubin was 0.47. Review of outpatient labs shows that on 08/25/2022 T. bili was 0.6. Likely secondary to acute disease/stress. Trend. Hypothyroidism Stable Levothyroxine continued. Of note thyroid level on 08/25/2022 was 3.19. Diabetes mellitus Blood glucose is stable. In the setting of patient not eating Accu-Chek QACHS without correction scale insulin ordered. Hold metformin. DVT prophylaxis Subcutaneous Lovenox ordered. Charges/Coding Visit Charges Inpatient E&M: 87631 Init Hosp L3 11/11/222225 <Electronically signed by Ryder Brody MD> Cosigner Signature (if applicable): CC: Dr. Ryder Brody MD; ALANNAH BENITO~ Signed [facility] Work Phone: Evaluation note* Diagnosis Onset Date Resolution Status Declining functional status acute Hypokalemia acute Hyponatremia acute Weakness acute Hypertension [facility] Work Phone: Evaluation note* Diagnosis Onset Date Resolution Status Declining functional status acute Hyponatremia acute Hypertension chronic Alzheimer disease acute Debility acute Dehydration acute Depression acute Diabetes mellitus acute Hyperlipidemia acute Hyponatremia acute Hypothyroidism acute Hypertension chronic [facility] Work Phone: Evaluation note* Diagnosis Onset Date Resolution Status Declining functional status acute Hyponatremia acute Hypertension chronic Alzheimer disease acute Debility acute Depression acute Diabetes mellitus acute Hyperlipidemia acute Hypothyroidism acute Hypertension chronic Dehydration resolved Hyponatremia resolved [facility] Work Phone: Evaluation noteNo assessment information available [facility] Work Phone: History and physical note Author Dr. Brody [facility] November 11, 2022 10:26pm Note Date/Time November 11, 2022 9:3 3pm [facility] Medical Records Department [address] [place] [address] H&P Exam - Hospitalist 11/11/222132 MR#: [id number] Acct: [id number] Name: MAXIME AMARAL Rep #:[id number] : 1935 87 From: Ryder Brody MD PCP: ALANNAH BENITO Status:ADM IN Location: [place]3 [id number] HPI - General General Date of Admission: 11/11/22 Date of Service: 11/11/22 Chief Complaint: Abnormal labs HPI Narrative MAXIME AMARAL, is a 87 F with a significant history of hypothyroidism and dementia; and who lives at assisted medicine facility at [facility] presenting to the emergency department with abnormal labs. Patient's sodium on the day of presentation was 127 at assisted living facility. For the past 2 to 3 weeks ago patient has been lethargic. She has been sleepinga lot. She has not been eating or drinking. Further patient has not been involving herself in any activity. Reportedly she has been very weak. Also twodays before presentation patient had nausea vomiting and diarrhea which has since resolved. At the emergency department initially urine catheterization produced no urine. However during the course of patient's stay at the emergency department patient could not urinate. [facility] Medical History Alzheimer's disease, unspecified Depression, unspecified GERD (gastroesophageal reflux disease) Hypertensive chronic kidney disease with stage 1 through stage 4 chronic kidney disease, or unspecified chronic kidney disease Hypothyroidism, unspecified Type 2 diabetes mellitus with unspecified complications Home Medications metformin 500 mg tablet 500 mg PO DAILY DIABETES 11/10/13 [History Last Taken 02/06/17 08:00] propranolol 20 mg tablet 20 mg PO DAILY BLOOD PRESSURE 11/10/13 [History Last Taken 02/06/17 08:00] levothyroxine 25 mcg tablet 25 mcg PO DAILY THYROID 02/08/17 [History Last Taken 02/06/17 08:00] atorvastatin 10 mg tablet 10 mg PO QHS CHOLESTEROL 11/11/22 [History Last Taken Unknown] cholecalciferol (vitamin D3) 1,250 mcg (50,000 unit) tablet 1,250 mcg PO WE SUPPLEMENT 11/11/22 [History Last Taken Unknown] donepezil 10 mg tablet 100 mg PO QHS MEMORY 11/11/22 [History Last Taken Unknown] sertraline 25 mg tablet 25 mg PO QODAY DEPRESSION/ANXIETY 11/11/22 [History Last Taken Unknown] Allergy/AdvReac Type Severity Reaction Status Date / Time Penicillins [PCN] AdvReac Diarrhea Verified 11/11/22 16:49 Family History Other Diabetes Surgical History H/O section History of bowel resection Social History Smoking Status: Never smoker ROS ROS Narrative Pertinent positives and pertinent negatives as noted in HPI. All other systems were reviewed and are negative Vital Signs Vital Signs Vital Signs: 11/11/22 16:37 11/11/22 16:48 11/11/22 18:38 Temperature 97 F L Temperature Source Temporal Pulse Rate 76 69 72 Respiratory Rate 19 H 13 14 Blood Pressure 140/61 H 139/48 H 123/48 H Blood Pressure Mean 87 78 73 Pulse Ox 99 99 96 Oxygen Delivery Method Room Air Room Air Room Air 11/11/22 19:04 Temperature Temperature Source Pulse Rate 70 Respiratory Rate 70 H Blood Pressure 118/50 L Blood Pressure Mean 72 Pulse Ox 96 Oxygen Delivery Method Room Air Weight Weight: 56.9 kg Body Mass Index (BMI) 26.2 Physical Exam Narrative Physical exam: General: Well-nourished, well-developed. Head: Normocephalic, atraumatic, no tenderness Eyes: Vision is grossly intact. EOMI ENT, no trauma, moist mucous membranes, no rhinorrhea Neck: Nontender, No thyromegaly. CVS: Regular rate and rhythm. S1-S2 present. No murmur, gallop or rub. Respiratory : clear to auscultation bilaterally, chest wall nontender Abdomen: Soft, nontender, nondistended, normal bowel sounds, no masses : Deferred Back: Nontender, no CVA tenderness Extremities: Nontender full range of motion, no trauma Skin: Normal color, no trauma, abrasions Neuro: Alert, oriented, cranial nerves II through XII grossly intact. Psychiatry: With family by bedside. Normal mood. Normal affect. Laughing. Results Lab / Micro Data Result Diagrams: 11/11/22 16:42 11/11/22 16:42 Labs: Laboratory Results - last 24 hr 11/11/22 16:42: WBC 13.9 H, RBC 4.23, Hgb 13.5, Hct 37.5, MCV 88.7, MCH 31.9, MCHC 36.0, RDW Std Deviation 39.2, RDW Coeff of Kristal 12.0, Plt Count 506 H, MPV 8.8, Immature Gran % (Auto) 0.400, Neut % (Auto) 59.4, Lymph % (Auto) 31.3, Jewell % (Auto) 7.4, Eos % (Auto) 0.9, Baso % (Auto) 0.6, Absolute Neuts (auto) 8.3 H, Absolute Lymphs (auto) 4.35, Nucleated RBC % 0 11/11/22 16:42: Sodium 127 L, Potassium 3.4 L, Chloride 91 L, Carbon Dioxide 28.0, Anion Gap 8, BUN 21 H, Creatinine 1.30 H, Estim Creat Clear Calc 27.90, Est GFR (MDRD) Af Amer 50 L, Est GFR (MDRD) Non-Af 41 L, BUN/Creatinine Ratio 16.2, Glucose 159 H, Calcium 9.9, Total Bilirubin 1.90 H, Direct Bilirubin 0.47 H, AST 25, ALT 30, Alkaline Phosphatase 45, Troponin I High Sens 13, Total Protein 7.4, Albumin 3.9, Globulin 3.5 11/11/22 17:43: Ammonia 16.0 11/11/22 19:47: Urine Color Yellow, Urine Clarity Clear, Urine pH 6.0, Ur Specific Acton 1.010, Urine Protein Negative, Urine Glucose (UA) Normal, Urine Ketones 5 H, Urine Occult Blood Negative, Urine Nitrite Negative, Urine Bilirubin Negative, Urine Urobilinogen Normal, Ur Leukocyte Esterase Negative, Urine RBC 0 SEEN, Urine WBC 0 SEEN, Ur Squamous Epith Cells 0 SEEN, Urine Bacteria 0 SEEN, Urine Mucus 0 SEEN Radiology Impression Brain CT 11/11/22 17:06 IMPRESSION: There are no acute findings. Chronic involutional changes of the brain. Electronically Signed: Abran Collins MD at 18:15 EDT , Chest X-Ray 11/11/22 17:33 IMPRESSION: There are no acute findings. Electronically Signed: Abran Collins MD at 18:17 EDT , Abdomen/Pelvis CT 11/11/22 19:02 IMPRESSION: (NOT LISTED IN ORDER OF SIGNIFICANCE) There are multiple colonic diverticula consistent with diverticulosis. Other findings as above. Electronically Signed: Abran Collins MD at 20:31 EDT , Assessment & Plan Assessment/Plan (1) Hyponatremia: (2) Hypokalemia: (3) Hypertension: (4) Weakness: (5) Declining functional status: PLAN: Plan Hyponatremia Sodium level at the assisted nursing facility on the day of presentation was 127 and repeat at the hospital on presentation was also 127. Chloride at the nursing facility was 87 and repeat at the hospital on presentation was 91. Review of patient record that patient brought from her assisted nursing facility shows that in August of 2022 her sodium was 137; and chloride at that time was 102. Likely secondary to poor intake and recent vomiting and diarrhea.. Normal saline hydration ordered. Trend BMP. Check a.m. cortisol. Check uric acid. Check urine sodium. Check serum and urine osmolality Hypokalemia On presentation her potassium was mildly low at 3.4. Received IV replacement. Will check magnesium. Trend BMP as above. Decline in functional status: Review of outpatient labs showed a TSH on 08/25/2022 was 3.19. PT and OT to work with patient. Case management consult. Leukocytosis: White count of 13.9. With normocytosis of 506, likely reactive/dehydration. Review of outpatient labs showed that her white count on 08/25/2022 was 6.6. Trend. Abdomen pelvis CT?impression by radiologist?There are multiple colonic diverticula consistent with diverticulosis. Abdomen/pelvis CT reviewed by hospitalist: Agrees with radiology interpretation. Urinalysis on presentation was reviewed: Not impressive. Hyperbilirubinemia: Total bilirubin on presentation was 1.90. Direct bilirubin was 0.47. Review of outpatient labs shows that on 08/25/2022 T. bili was 0.6. Likely secondary to acute disease/stress. Trend. Hypothyroidism Stable Levothyroxine continued. Of note thyroid level on 08/25/2022 was 3.19. Diabetes mellitus Blood glucose is stable. In the setting of patient not eating Accu-Chek QACHS without correction scale insulin ordered. Hold metformin. DVT prophylaxis Subcutaneous Lovenox ordered. Charges/Coding Visit Charges Inpatient E&M: 09334 Init Hosp L3 11/11/222225 <Electronically signed by Ryder Brody MD> Cosigner Signature (if applicable): CC: Dr. Ryder Brody MD; ALANNAH BENITO~ Signed [facility] Work Phone: Hospital Discharge instructions Additional Instructions CT head face and neck negative. Right shoulder x-ray negative. 7 sutures placed. Have removed in 5 to 7 days.[facility] Work Phone: Reason for referral (narrative)No reason for referral information availableWooSy[facility] Work Phone: Chief Complaint and Reason for Visit Chief Complaint DEBILITY, DEHYDRATIO N DEBILITY, DEHYDRATION Reason for Visit Declining functional status Hypokalemia Hyponatremia Weakness Hypertension Chief Complaint DEBILITY, DEHYDRATIO N DEBILITY, DEHYDRATION DEBILITY, DEHYDRATION DEBILITY, DEHYDRATION Reason for Visit Declining functional status Hypokalemia Hyponatremia Weakness Hypertension Chief Complaint DEBILITY, DEHYDRATIO N DEBILITY, DEHYDRATION DEBILITY, DEHYDRATION DEBILITY, DEHYDRATION DEBILITY HEAD CT Reason for Visit Declining functional status Hyponatremia Hypertension Alzheimer disease Debility Dehydration Depression Diabetes mellitus Hyperlipidemia Hyponatremia Hypothyroidism Hypertension Chief Complaint DEBILITY, DEHYDRATIO N DEBILITY, DEHYDRATION DEBILITY, DEHYDRATION DEBILITY, DEHYDRATION DEBILITY HEAD CT LABWORK ADMISSION EXAM ADMISSION EXAM UNWITNESSED FALL Reason for Visit Declining functional status Hyponatremia Hypertension Alzheimer disease Debility Depression Diabetes mellitus Hyperlipidemia Hypothyroidism Hypertension Dehydration Hyponatremia Chief Complaint MONTHLY EXAM UNWITNESSED FALL MONTHLY EXAM RESIDENTIAL LAB WORK MONTHLY EXAM NURIS HOME LABWORK Chief Complaint MONTHLY EXAM MONTHLY EXAM MONTHLY EXAM FALL Chief Complaint MONTHLY EXAM MONTHLY EXAM FALL LABWORK Chief Complaint Admit Date NEW CONCERN June 21, 2024 5 :08pm RESIDENTIAL LAB WORK July 11 5:00am RESIDENTIAL LAB WORK August 23, 2024 5:00am MONTHLY EXAM September 01, 2024 11:29am LABWORK October 03, 2024 5:0 0am Chief Complaint Admit Date RESIDENTIAL LAB WORK July 11 5:00am RESIDENTIAL LAB WORK August 23, 2024 5:00am MONTHLY EXAM September 01, 2024 11:29am MONTHLY EXAM September 20, 2024 3:13 pm LABWORK October 03, 2024 5:0 0am RESIDENTIAL LAB WORK October 06, 2024 5 :00am Chief Complaint Admit Date RESIDENTIAL LAB WORK July 11 5:00am RESIDENTIAL LAB WORK August 23, 2024 5:00am MONTHLY EXAM September 01, 2024 11:29am MONTHLY EXAM September 20, 2024 3:13 pm LABWORK October 03, 2024 5:0 0am RESIDENTIAL LAB WORK October 06, 2024 5 :00am LABWORK October 10, 2024 5:0 0am Chief Complaint Admit Date RESIDENTIAL LAB WORK July 11 5:00am RESIDENTIAL LAB WORK August 23, 2024 5:00am MONTHLY EXAM September 01, 2024 11:29am MONTHLY EXAM September 20, 2024 3:13 pm LABWORK October 03, 2024 5:0 0am RESIDENTIAL LAB WORK October 06, 2024 5 :00am LABWORK October 10, 2024 5:0 0am FALL, LACERATION November 03, 2024 9:0 6pm Chief Complaint Admit Date RESIDENTIAL LAB WORK July 11 5:00am RESIDENTIAL LAB WORK August 23, 2024 5:00am MONTHLY EXAM September 01, 2024 11:29am MONTHLY EXAM September 20, 2024 3:13 pm LABWORK October 03, 2024 5:0 0am RESIDENTIAL LAB WORK October 06, 2024 5 :00am LABWORK October 10, 2024 5:0 0am RESIDENTIAL LAB WORK October 17, 2024 5 :00am FALL, LACERATION November 03, 2024 9:0 6pm Advance Directives No Advanced Directives Records Found Advance Directive Response Recorded Date/ Time Name of Medical Power of Publishing Editor ? November 11, 2022 4:49pm Living Will Yes November 11, 2022 4:49pm Power of Publishing Editor Yes November 11 4:49pm Advance Directive Response Recorded Date/ Time Name of Medical Power of Publishing Editor Matilda Pritchett November 11, 2022 10:59pm Living Will Yes November 11, 2022 10:59pm Power of Publishing Editor Yes November 11 10:59pm Advance Directive Response Recorded Date/ Time Name of Medical Power of Publishing Editor Matilda Pritchett November 11, 2022 10:59pm Name of Medical Power of Publishing Editor christine Pritchett November 14, 2022 10:44am Living Will Yes November 14, 2022 10:44am Power of Publishing Editor Yes November 14 10:44am Advance Directive Response Recorded Date/ Time Living Will Yes November 14, 2022 10:44am Power of Publishing Editor Yes November 14 10:44am Advance Directive Response Recorded Date/ Time Name of Medical Power of Publishing Editor NYA MORRIS July 25, 2023 4:49am Living Will Yes July 25 4:49am Power of Publishing Editor Yes July 25 4:49am Advance Directive Response Recorded Date/ Time Living Will Yes November 03, 2024 9:16pm Do you have a Healthcare Power of Publishing Editor? Yes November 03, 2024 9:16pm Name of Medical Power of Publishing Editor Daniel Amaral November 03, 2024 9:16pm Summary Purpose Family History No Family History Records Found Additional Source Comments Care Teams (unrecognized sec tion and content) Team Status: Active Member Role Status Dates Dr. Mariano Dao MD Family Provider Active ALANNAH [facility] Primary Care Provider Active Team Status: Active Member Role Status Dates Dr. Nancy Ewing MD Emergency Provider [facility] Provider Active Dr. Ryder Brody MD Admit Provider, Attending Provider, Other Provider Active Team Status: Active Member Role Status Dates Dr. Nancy Ewing MD Emergency Provider [facility] Primary Care Provider Active Dr. Ryder Brody MD Admit Provider, Attending Pro vider Active Team Status: Active Member Role Status Dates Dr. Nancy Ewing MD Emergency Provider Active [facility] Primary Care Provider Active Dr. Ryder Brody MD Admit Provider, Other Provide r Active Dr. Bernice Betancur MD Attending Provider, Other Provid er Active Team Status: Inactive Member Role Status Dates Dr. Nancy Ewing MD Emergency Provider [facility] Care Provider Active Dr. Ryder Brody MD Admit Provider, Other Provide r Active Dr. Bernice Betancur MD Attending Provider Active Team Status: Active Member Role Status Dates THONG JAFFE Primary Care Provider Active Dr. Sylvester Crooks MD Admit Provider, Attending Provid er Active Magnolia Teach , MARINE MECHANIC-C Other Provider Active Dr. Steven Dean DO Other Provider Active Dr. Fany Dao MD Other Provider Active Tanisha Henriquez , MARINE MECHANIC-C Other Provider Active Britany White MARINE MECHANIC, MARINE MECHANIC-C Other Provider Active Team Status: Inactive Member Role Status Dates THONG JAFFE Primary Care Provider Active Dr. Sylvester Crooks MD Attending Provider, Referring Pr ovider Active Team Status: Inactive Member Role Status Dates THONG JAFFE Primary Care Provider Active Dr. Sylvester Crooks MD Admit Provider, Attending Provid er Active [employer] , MARINE MECHANIC-C Other Provider Active Dr. Steven Dean DO Other Provider Active Dr. Fany Dao MD Other Provider Active Tanisha Henriquez , MARINE MECHANIC-C Other Provider Active Britany White MARINE MECHANIC, MARINE MECHANIC-C Other Provider Active Team Status: Active Member Role Status Dates Dr. Mariano Dao MD Family Provider Active Dr. Pete Payne MD Primary Care Provider Active Team Status: Inactive Member Role Status Dates Out of [facility] Doctor Primary Care Provider Active Dr. Pete Payne MD Attending Provider Active Team Status: Inactive Member Role Status Dates Out of [facility] Doctor Primary Care Provider Active Poppy Mccracken MARINE MECHANIC, MARINE MECHANIC-C Attending Provider Active Team Status: Inactive Member Role Status Dates Out [facility] Doctor Primary Care Provider Active Pete ROBERTS MD Attending Provider Active Team Status: Inactive Member Role Status Dates Dr. Pete Payne MD Primary Care Provider Active Dr. Jos Rush DO Emergency Provider Active Team Status: Inactive Member Role Status Dates Dr. Pete Payne MD Primary Care Provider, Atten ding Provider Active Team Status: Inactive Member Role Status Dates Dr. Pete Payne MD Primary Care Provider Active Poppy Mccracken MARINE MECHANIC, MARINE MECHANIC-C Attending Provider Active Team Status: Inactive Member Role Status Dates Dr. Pete Payne MD Primary Care Provider Active Pete ROBERTS MD Attending Provider Active Team Status: Inactive Member Role Status Dates Dr. Pete Payne MD Primary Care Provider Active Dr. Jos Rush DO Attending Provider, Emergency Pr ovider Active Team Status: Active Member Role Status Dates Dr. Pete Payne MD Primary Care Provider Active Pete ROBERTS MD Attending Provider Active Team Status: Inactive Member Role Status Dates Dr. Pete Payne MD Primary Care Provider Active Dr. Jos Rush DO Referring Provider, Emergency Pr ovider Active Team Status: Inactive Member Role Status Dates Dr. Pete Payne MD Primary Care Provider Active Dr. Jos Rush DO Attending Provider , Referring Provider, Emergency Provider Active Team Status: Inactive Member Role Status Dates Dr. Pete Payne MD Primary Care Provider Active Start: June 21, 2024 End: June 21, 2024 Poppy Mccracken MARINE MECHANIC, MARINE MECHANIC-C Attending Provider Active Start: June 21, 2024 End: June 21, 2024 Team Status: Inactive Member Role Status Dates Dr. Pete Payne MD Primary Care Provider Active Start: July 11, 2024 End: July 11, 2024 Pete ROBERTS MD Attending Provider Active Start: July 11, 2024 End: July 11, 2024 Team Status: Active Member Role Status Dates Dr. Pete Payne MD Primary Care Provider Active Start: August 23, 2024 Pete ROBERTS MD Attending Provider Active Start: August 23, 2024 Team Status: Inactive Member Role Status Dates Dr. Pete Payne MD Primary Care Provider Active Start: September 01, 2024 End: September 01, 2024 Mateo CRANDALL PA Attending Provider Active St art: September 01, 2024 End: September 01, 2024 Team Status: Inactive Member Role Status Dates Dr. Pete Payne MD Primary Care Provider Active Start: October 03, 2024 End: October 03, 2024 Pete ROBERTS MD Attending Provider Active Start: October 03, 2024 End: October 03, 2024 Team Status: Active Member Role Status Dates Dr. Pete Payne MD Primary Care Provider Active Start: October 06, 2024 Pete ROBERTS MD Attending Provider Active Start: October 06, 2024 Team Status: Active Member Role Status Dates Dr. Pete Payne MD Primary Care Provider Active Start: October 10, 2024 Pete ROBERTS MD Attending Provider Active Start: October 10, 2024 Team Status: Active Member Role Status Dates Dr. Pete Payne MD Primary Care Provider Active Start: October 17, 2024 Pete ROBERTS MD Attending Provider Active Start: October 17, 2024 Team Status: Inactive Member Role Status Dates Dr. Pete Payne MD Primary Care Provider Active Start: September 20, 2024 End: September 20, 2024 Dr. Pete Payne MD Attending Provider Active Start: September 20, 2024 End: September 20, 2024 Team Status: Inactive Member Role Status Dates Dr. Pete Payne MD Primary Care Provider Active Start: October 06, 2024 End: October 06, 2024 Pete ROBERTS MD Attending Provider Active Start: October 06, 2024 End: October 06, 2024 Team Status: Inactive Member Role Status Dates Dr. Pete Payne MD Primary Care Provider Active Start: October 10, 2024 End: October 10, 2024 Pete ROBERTS MD Attending Provider Active Start: October 10, 2024 End: October 10, 2024 Team Status: Active Member Role Status Dates Dr. Pete Payne MD Primary Care Provider Active Team Status: Inactive Member Role Status Dates Dr. Pete Payne MD Primary Care Provider Active Start: November 03, 2024 End: November 04, 2024 Dr. Alirio Edward DO Emergency Provider Active Start : November 03, 2024 End: November 04, 2024 Team Status: Inactive Member Role Status Dates Dr. Pete Payne MD Primary Care Provider Active Start: October 17, 2024 End: October 17, 2024 Pete ROBERTS MD Attending Provider Active Start: October 17, 2024 End: October 17, 2024 Goals (unrecognized section and content) Goals may be documented in a n alternate sectionGoals may be documented in an alternate sectionGoals may be documented in an alternate sectionGoals may be documented in an alternate sectionGoals may be documented in an alternate sectionGoals may be documented in an alternate sectionGoals may be documented in an alternate sectionGoals may be documented in an alternate sectionGoals may be documented in an alternate sectionGoals may be documented in an alternate section INFORMATION SOURCE (unrecogn ized section and content) DATE CREATED AUTHOR 12/22/2024 [facility] FOR RECORDS PERTAINING TO PATIENTS WHO ARE OR HAVE BEEN ENROLLED IN A CHEMICAL DEPENDENCY/SUBSTANCEABUSE PROGRAM, SOME INFORMATION MAY BE OMITTED. This clinical summary was aggregated from multiple sources. Caution should be exercised in using it in the provision of clinical care. This summary normalizes information from multiple sources, and as a consequence, information in this document may materially change the coding, format and clinical context of patient data. In addition, data may be omitted in some cases. CLINICAL DECISIONS SHOULD BE BASED ON THE PRIMARY CLINICAL RECORDS. [employer] provides no warranty or guarantee of the accuracy or completeness of information in this document.
== END ==
LOC: OLS.WHLCAR 04:00
PROVIDERS: PCP Internal Medicine; Referring Provider Internal Medicine; Visit Provider Internal Medicine
DX: E03.9 Hypothyroidism, unspecified (principal)
CPT/HCPCS: 36415; 84443

== ENCOUNTER → 2025-01-13 | Outpatient (REF) | payer MEDICARE, MEDICAID, SELFPAY ==
--- OUTSIDE RECORDS SUMMARY | 2025-01-13 04:17 | XMS RPT_ITS | CCD ---
Author Organization [facility] Care Team Providers Care [employer] Fe[employer] Name Role Phone Dr. Nancy Ewing Emergency Provider [phone] THONG ALANNAH Primary Care Provider Unavail able Dr. Ryder Brody Admit Provider Dr. Ryder Brody Attending Provider Dr. Ryder Brody Other Provider ALANNAH BENITO Primary Care Provider Dr. Bernice Betancur Attending Provider Dr. Bernice Betancur Other Provider [facility] Doctor, Out of Primary Care Provider Silvia Mccracken CONCRETE CONVEYOR OPERATOR, CONCRETE CONVEYOR OPERATOR-C Poppy Attending Provider Dr. Pete Dietz Attending Provider Dr. Pete Payne Primary Care Provider Dr. Pete Payne Attending Provider Kaykay CONCRETE CONVEYOR OPERATOR, CONCRETE CONVEYOR OPERATOR-C Poppy Attending Provider Dr. Pete Dietz Primary Care Provider Dr. Pete Payne Attending Provider Kaykay CONCRETE CONVEYOR OPERATOR, CONCRETE CONVEYOR OPERATOR-C Poppy Attending Provider Dr. Pete Dietz Primary Care Provider Dr. Pete Payne Attending Provider Kaykay CONCRETE CONVEYOR OPERATOR, CONCRETE CONVEYOR OPERATOR-C Poppy Attending Provider Elmer SAMUELS, Dr. Fereman Primary Care Provider Kaykay CONCRETE CONVEYOR OPERATOR-CPoppy Attending Provider Pete Payne MD Attending Provider Unavaila Mateo Romero Attending Provider Elmer SAMUELS, Dr. Freeman Primary Care Provider Elmer SAMUELS, Dr. Freeman Attending Provider [phone] Cheyanne DRISCOLL, Dr. Amezquita Emergency Provider Elmer SAMUELS, Dr. Freeman Primary Care Provider Pete Payen MD Attending Provider Unavaila naun Mccracken CONCRETE CONVEYOR OPERATOR-CPoppy Attending Provider Cheyanne DRISCOLL, Dr. Amezquita Attending Provider Pete Payne MD Referring Provider Unavaila naun Payne MD, Dr. Freeman Primary Care Provider Pete Payne MD Attending Provider Unavaila ble Oleghe, Efewongbe Primary Care Unavailable Tickton Poppy ROBERTS Referring Unavailable Tickton Poppy ROBERTS Attending Unavailable Oleghe OLS, Efewongbe Referring Unavailabl e Oleghe, Efewongbe Primary Care Unavailable Oleghe OLS, Efewongbe Attending Unavailabl e Oleghe, Efewongbe Primary Care Unavailable Poppy Mccracken NP Attending Unavailable Oleghe OLS, Efewongbe Attending Unavailabl [...] Care Unavailable Oleghe, Efewongbe Primary Care Unavailable Tickton CONCRETE CONVEYOR OPERATORPoppy Attending Unavailable Oleghe, Efewongbe Primary Care Unavailable Wayt, Mateo Attending Unavailable Oleghe OLS, Efewongbe Attending Unavailabl e Oleghe, Efewongbe Primary Care Unavailable Oleghe OLS, Efewongbe Attending Unavailabl e Oleghe, Efewongbe Primary Care Unavailable Oleghe OLS, Efewongbe Attending Unavailabl e Oleghe, Efewongbe Primary Care Unavailable Oleghe, Efewongbe Primary Care Unavailable Alirio Edward Attending Unavailable Oleghe OLS, Efewongbe Referring Unavailabl e Oleghe OLS, Efewongbe Attending Unavailabl e Oleghe, Efewongbe Primary Care Unavailable Oleghe OLS, Efewongbe Attending Unavailabl e Oleghe, Efewongbe Primary Care Unavailable Oleghe, Efewongbe Primary Care Unavailable Mateo Cha Attending Unavailable Oleghe, Efewongbe Primary Care Unavailable Kaykay CONCRETE CONVEYOR OPERATORPoppy Attending Unavailable Oleghe, Efewongbe Primary Care Unavailable Oleghe, Efewongbe Attending Unavailable Oleghe, Efewongbe Attending Unavailable Oleghe, Efewongbe Primary Care Unavailable Oleghe OLS, Efewongbe Attending Unavailabl e Oleghe, Efewongbe Primary Care Unavailable Oleghe OLS, Efewongbe Attending Unavailabl e Oleghe, Efewongbe Primary Care Unavailable Oleghe, Efewongbe Attending Unavailable Oleghe, Efewongbe Primary Care Unavailable Oleghe OLS, Efewongbe Attending Unavailabl e Oleghe, Efewongbe Primary Care Unavailable Kaykay CONCRETE CONVEYOR OPERATOR, Poppy Attending Unavailable Oleghe, Efewongbe Primary Care Unavailable Oleghe, Efewongbe Attending Unavailable Oleghe, Efewongbe Primary Care Unavailable Kaykay CONCRETE CONVEYOR OPERATORPoppy Attending Unavailable Oleghe, Efewongbe Primary Care Unavailable Oleghe OLS, Efewongbe Attending Unavailabl e Oleghe, Efewongbe Primary Care Unavailable Oleghe OLS, Efewongbe Attending Unavailabl e Oleghe, Efewongbe Primary Care Unavailable Allergies Allergy Classification Reported Allergen(s) Allergy Type Date of Onset Reaction(s) Facility (17 sources) Penicillins Propensity to adverse reactions 3 Diarrhea [facility] (1 source) Penicillins Drug allergy (disorder) 5 [facility] Repository Medications Current Medications Medication Drug Class(es) Dates Sig (Normalized) Sig (Original) acetaminophen 500 mg oral tablet (15 sources) Start: 11-26-2022 take 2 tablets by [...] 2022 11:00pm atorvastatin 10 mg oral tablet (17 sources) HMG-CoA Reductase Inhibitor Start: 11-11-2022 take [...] PO DAILY November 13, 2022 4:51pm Cholecalciferol (17 sources) Vitamin D Start: 11-11-2022 Cholecalciferol (Vitamin D3) 1,250 mcg (50,000 unit) Tablet Active 1250 ug PO WE November 11, 2022 12:00am Start: 11-11-2022 Cholecalcifero l (Vitamin D3) Active 1250 MCG PO WE November 10, 2022 11:00pm Start: 11-11-2022 Cholecalcifero l (Vitamin D3) Active 1250 MCG PO WE November 11, 2022 12:00am citalopram 10 mg oral tablet (10 sources) Serotonin Reuptake Inhibitor Start: 07-25-2023 take [...] Plus High Protein) 0.08 gram-1.5 kcal/mL liquid (15 sources) Start: 11-13-2022 Food Supplemt, Lactose-Reduced (Ensure [...] 4:51pm levothyroxine sodium 0.025 mg oral tablet (17 sources) l-Thyroxine Start: 02-08-2017 take 1 tablet by mouth once daily Levothyroxine 25 MCG tablet Active 25 ug PO DAILY February 08, 2017 12:00am metFORMIN hydrochloride 500 mg oral tablet (17 sources) Biguanide Start: 11-10-2013 take 1 tablet by mouth once daily Metformin 500 MG tablet Active 500 mg PO DAILY November 10, 2013 12:00am mirtazapine 15 mg oral tablet (15 sources) Start: 11-26-2022 take 7.5 mg by mouth at bedtime Mirtazapine 15 mg Tablet Active 7.5 mg PO AT BEDTIME 0 November 26, 2022 12:00am Start: 11-26-2022 take 7.5 mg by mouth at bedtim e Mirtazapine Active 7.5 MG PO AT BEDTIME 0 November 25, 2022 11:00pm propranolol hydrochloride 20 mg oral tablet (17 sources) beta-Adrenergic Nathanael Start: 11-10-2013 take 1 tablet by mouth once daily Propranolol 20 MG tablet Active 20 mg PO DAILY November 10, 2013 12:00am raloxifene hydrochloride 60 mg oral tablet (16 sources) Estrogen Agonist/Antagonist Start: 11-12-2022 take 1 [...] Plus High Protein) 0.08 gram-1.5 kcal/mL Liquid (16 sources) Start: 11-13-2022 End: 11-13-2022 Food Supplemt, [...] 12:00am ondansetron 4 mg disintegrating oral tablet (17 sources) Serotonin-3 Receptor Antagonist Start: 01-18-2014 End: 02-09-2017 take 1 tablet by mouth every eight hours as needed for nausea Ondansetron 4 MG tablet Discontinued 4 mg PO EVERY 8 HOURS NEEDED as needed for Nausea January 18, 2014 12:00am February 09, 2017 9:05am traMADol hydrochloride 50 mg oral tablet (17 sources) Opioid Agonist Start: 06-04-2018 End: 06-07-2018 [...] dementia, and amnestic and other cognitive disorders (20 sources) Alzheimer's disease; Translations: [Alzheimer's disease, unspecified] Onset: 12-30-2024 11-13-2022 Chronic Diabetes mellitus with complications (3 sources) Type 2 diabetes mellitus with diabetic chronic kidney disease; Translations: [Type 2 diabetes mellitus with diabetic nephropathy] Onset: 06-24-2024 Chronic Diabetes mellitus without complication (20 sources) Type 2 diabetes mellitus; Translations: [Type 2 diabetes mellitus without complications] 02-07-2017 Chronic Disorders of lipid metabolism (18 sources) Hyperlipidemia; Translations: [Hyperlipidemia, unspecified] 11-13-2022 Chronic E Codes: Fall (10 sources) Accidental fall ; Translations: [Unspecified fall, initial encounter] 07-25-2023 Episodic Esophageal disorders (17 sources) Gastroesophageal reflux disease; Translations: [Gastro-esophageal reflux [...] disease, or unspecified chronic kidney disease] Onset: 12-30-2024 Chronic Malaise and fatigue (20 sources) Decline in functional status; Translations: [Other malaise] 11-11-2022 Episodic Mood disorders (18 sources) Depressive disorder; Translations: [Depression] 11-13-2022 Chronic Noninfectious gastroenteritis (17 sources) Gastroenteritis; Translations: [Noninfective gastroenteritis and colitis, unspecified] 02-09-2017 Episodic Open wounds of head; neck; and trunk (6 sources) Facial laceration ; Translations: [Laceration without foreign body of other part of head, initial encounter] Onset: 11-08-2024 11-04-2024 Episodic Osteoarthritis (17 sources) Osteoarthritis of left knee joint; Translations: [Unilateral primary osteoarthritis, left knee] 06-05-2018 Chronic Osteoporosis (17 sources) Osteoporosis; Translations: [Age-related osteoporosis without current pathological fracture] 02-09-2017 Chronic Other injuries and conditions due to external causes (20 sources) Closed injury of head; Translations: [Unspecified injury of head, initial encounter] 01-20-2023 Episodic Other injuries and conditions due to external causes (13 sources) Contusion of multiple sites; Translations: [Unspecified multiple injuries, initial encounter] 01-20-2023 Episodic Other non-traumatic joint disorders (10 sources) Knee joint effusion; Translations: [Effusion, unspecified knee] 07-25-2023 Episodic Superficial injury; contusion (18 sources) Hematoma of face; Translations: [Contusion of other part of head, initial encounter] 01-20-2023 Episodic Thyroid disorders (20 sources) Hypothyroidism; Translations: [Hypothyroidism, unspecified] Onset: 12-21-2024 11-13-2022 Chronic Unclassified (2 sources) Dementia in other diseases classified elsewhere, mild, with mood disturbance; Translations: [Dementia in other diseases classified elsewhere, mild, with mood disturbance] Onset: 12-30-2024 Past or Other Problems Problem Classification Problem Date Documented Da te Episodic/Chronic Other gastrointestinal disorders (1 source) Diarrhea, unspecified; Translations: [Diarrhea, unspecified] Onset: 02-19-2024 Episodic Results Test Name Value Interpretation Reference Range Facility TSH DL <= 0.005 mIU/L QnOrde red By: Pete Payne on 12-26-2024 TSH Qn 4.080 uIU/mL 0.300-4.200 [facility] Absolute lymphocyte countOrd ered By: Pete Payne on 12-13-2024 Lymphocytes Auto (Unsp spec) [#/Vol] 2.57 10*3/uL 0.83-4.51 [facility] Absolute neutrophil countOrd ered By: alexishomersudarshan Payne on 12-13-2024 Neutrophils (Bld) [#/Vol] 5.1 10*3/uL 2.0-7.7 [facility] Automated lymphocyte count a s percentage of total leukocytesOrdered By: alexishomersudarshan Pfeifferriteshyulia on 12-13-2024 Lymphocytes/100 WBC Auto (Unsp spec) 29.2 % 19-41 [facility] Basophil percentageOrdered B y: Pete Payne on 12-13-2024 Basophils/100 WBC (Bld) 0.8 % 0-1 [facility] Eosinophil percentageOrdered By: [facility] Kentrellyulia on 12-13-2024 Eosinophils/100 WBC (Bld) 3.5 % 0-5 [facility] Erythrocyte distribution wid th ratioOrdered By: [facility] Kentrellyulia on 12-13-2024 Erythrocyte distribution width (RBC) [Ratio] 13.4 % 11.6-14.6 [facility] Erythrocyte distribution wid th standard deviationOrdered By: [facility] Devinyulia on 12-13-2024 Erythrocyte distribution width (RBC) [Ratio] 46.0 fl High 35.1-43.9 [facility] Hematocrit Auto (Bld) [Volum e fraction]Ordered By: alexishomersudarshan Payne on 12-13-2024 Hematocrit (Bld) [Volume fraction] 33.0 % Low 37-47 [facility] Hemoglobin measurementOrdere d By: alexiskeishasudarshan Pfeifferriteshyulia on 12-13-2024 Hemoglobin (Bld) [Mass/Vol] 10.6 g/dL Low 12.0-15.0 [facility] Immature granulocytes/100 WB C Auto (Bld)Ordered By: [facility] Camdensudarshan Payne on 12-13-2024 Immature granulocytes/100 WBC (Bld) 0.300 % 0.0-0.9 [facility] Comment on above: IG% - Immature Granu locytes (promyelocytes, myelocytes and metamyelocytes) > 1% indicates that a LEFT SHIFT is Present. MCV (mean corpuscular volume ) determinationOrdered By: Pete Payne on 12-13-2024 MCV (RBC) [Entitic vol] 94.0 fL 81-99 [facility] Mean corpuscular hemoglobin (MCH) determinationOrdered By: Pete Payne on 12-13-2024 MCH (RBC) [Entitic mass] 30.2 pg 27.0-32.0 [facility] Mean corpuscular hemoglobin concentration (MCHC) determinationOrdered By: Pete Payne on 12-13-2024 MCHC (RBC) [Mass/Vol] 32.1 g/dL 32-36 [facility] Mean platelet volume determi nationOrdered By: Pete Payne on 12-13-2024 Platelet mean volume (Bld) [Entitic vol] 9.9 fL 6.2-12.0 [facility] Monocyte percentageOrdered B y: Pete Payne on 12-13-2024 Monocytes/100 WBC (Bld) 8.1 % 0-10 [facility] Neutrophil percentageOrdered By: Pete Payne on 12-13-2024 Neutrophils/100 WBC (Bld) 58.1 % 47-70 [facility] Nucleated red blood cell per centageOrdered By: Pete Payne on 12-13-2024 Nucleated RBC/100 WBC (Bld) [Ratio] 0 % 0-5 [facility] Platelet countOrdered By: Celeste alexisanne Payne on 12-13-2024 Platelets (Bld) [#/Vol] 309 10*3/uL 150-450 [facility] RBC Auto (Bld) [#/Vol]Ordere d By: Pete Payne on 12-13-2024 RBC (Bld) [#/Vol] 3.51 10*6/uL Low 4.2-5.4 [facility] White blood cell (WBC) count Ordered By: Pete Payne on 12-13-2024 WBC (Bld) [#/Vol] 8.8 10*3/uL 4.4-11.[address] [facility] Hemoglobin A1c percentageOrd ered By: Pete Payne on 11-22-2024 HbA1c (Bld) [Mass fraction] 7.0 % High <5.7 [facility] Comment on above: Normal < 5.7 % Predi abetic 5.7 - 6.4 % Diabetic >or= 6.5 % Please note range changes. TSH DL <= 0.005 mIU/L QnOrde red By: Pete Payne on 11-14-2024 TSH Qn 3.270 uIU/mL 0.300-4.200 [facility] Brain/Head without Contrasto n 11-03-2024 Brain/Head without Contrast [facility] Imaging Services [address] [place], [place] [id number] Brain/Head without Contrast MR#: [id number] Acct: [id number] Name: MAXIME AMARAL Rep #: [id number] : 1935 F 89 From: Davin Sotelo DO PCP: Dr. Pete Payne MD Status: REG ER Study: Brain/Head without Contrast Date of Exam: 10/18 02/10 Exam# [id number] Ordering Dr: Alirio Edward DO PROCEDURE: BRAIN/HEAD [...] CHRONIC CHANGES. NO ACUTE FINDINGS. Reading Location: [facility] CC: Dr. Pete Payne MD; Dr. Alirio Edward DO Flash Ranging Crewmember: Signed Normal [facility] Emergency Department Summary on 11-03-2024 Emergency Department Summary [facility] Medical Records Department [address] [place] [address] Emergency Department Summary 11/03/24 MR#: [id number] Acct: [id number] Name: MAXIME AMARAL Rep #: [id number] : 1935 89 From: Alirio Patel PCP: Dr. Pete Payne MD Status:REG ER Location: ED HPI HPI - Fall History of Present Illness Chief Complaint: Fall Informant: patient and family Narrative Narrative: Patient brought in by EMS from [facility] witnessed fall head injury. Patient history of dementia ambulatory per son. Mostly wheelchair, can weight-bear transfer. From paperwork gaited bowel with walking. Reports she did walk with a walker minimally a week ago. Reported getting off the commode she turned down hitting her head on a radiator. No anticoagulants. She is DNR CC as of 2022 from paperwork. She has baseline per son. [facility] Medical History Dry eye syndrome of [...] for te (more content not included)... Normal [facility] Shoulder min 2 Viewson 11-03 Shoulder min 2 Views [facility] Imaging Services [address], [place] [id number] Shoulder min 2 Views MR#: [id number] Acct: [id number] Name: MAXIME AMARAL Rep #: [id number] : 1935 F 89 From: Davin Sotelo DO PCP: Dr. Pete Payne MD Status: REG ER Study: Shoulder min 2 Views Date of Exam: 11/03/24 Exam# [id number] Ordering Dr: Alirio Edward DO PROCEDURE: SHOULDER MIN 2 VIEWS 11/03/2024 REASON FOR EXAM: INJURY TECHNIQUE: 3 view(s) of the right shoulder COMPARISON: None FINDINGS: Bones: No acute fracture. Joints: Normal alignment of the acromioclavicular and glenohumeral joints. Soft tissues: Soft tissues are unremarkable. Other: RAD/Shoulder min 2 Views IMPRESSION: NO ACUTE FRACTURE OR DISLOCATION. Reading Location: [facility] CC: Dr. Pete Payne MD; Dr. Alirio Edward DO [employer] Ranging Crewmember: Signed Normal [facility] Sinus/Facial Boneon 11-04-19 Sinus/Facial Bone [facility] Imaging Services [address], [place] [id number] Sinus/Facial Bone MR#: [id number] Acct: [id number] Name: MAXIME AMARAL Rep #: [id number] : 1935 F 89 From: Davin Sotelo DO PCP: Dr. Pete Payne MD Status: REG ER Study: Sinus/Facial Bone Date of Exam: 11/03/24 Exam# [id number] Ordering Dr: Alirio Edward DO PROCEDURE: SINUS/FACIAL [...] supraorbital region. No acute fracture. [facility] CC: Dr. Pete Payne MD; Dr. Alirio Edward DO [employer] Ranging Crewmember: Signed Normal [facility] Spine Cervical without Contr ason 11-03-2024 Spine Cervical without Contras [facility] Imaging Services [address] [place], [place] [address] Spine Cervical without Contras MR#: [id number] Acct: [id number] Name: MAXIME AMARAL Rep #: [id number] : 1935 F 89 From: Davin Sotelo DO PCP: Dr. Pete Payne MD Status: REG ER Study: Spine Cervical without Contras Date of Exam: 0 11/03/24 Exam# [id number] Ordering Dr: Alirio Edward DO PROCEDURE: SPINE [...] No acute fracture or subluxation. [facility] CC: Dr. Pete Payne MD; Dr. Alirio Edward DO [employer] Ranging Crewmember: Signed Normal [facility] Absolute lymphocyte countOrd ered By: Pete Payne on 10-17-2024 Lymphocytes Auto (Unsp spec) [#/Vol] 3.03 10*3/uL 0.83-4.51 [facility] Absolute neutrophil countOrd ered By: Pete Payne on 10-17-2024 Neutrophils (Bld) [#/Vol] 5.3 10*3/uL 2.0-7.7 [facility] Automated lymphocyte count a s percentage of total leukocytesOrdered By: Pete Payne on 10-17-2024 Lymphocytes/100 WBC Auto (Unsp spec) 31.8 % 19-41 [facility] Basophil percentageOrdered B y: Pete Payne on 10-17-2024 Basophils/100 WBC (Bld) 0.8 % 0-1 [facility] Eosinophil percentageOrdered By: geena Payne on 10-17-2024 Eosinophils/100 WBC (Bld) 3.6 % 0-5 [facility] Erythrocyte distribution wid th (RBC) [Ratio]Ordered By: Pete Payne on 10-17-2024 Erythrocyte distribution width (RBC) [Entitic vol] 45.9 fL High 35.1-43.9 [facility] Erythrocyte distribution wid th ratioOrdered By: Pete Payne on 10-17-2024 Erythrocyte distribution width (RBC) [Ratio] 13.4 % 11.6-14.6 [facility] Erythrocyte distribution wid th standard deviationOrdered By: Pete Payne on 10-17-2024 Erythrocyte distribution width (RBC) [Ratio] 45.9 fl High 35.1-43.9 [facility] Hematocrit Auto (Bld) [Volum e fraction]Ordered By: Pete Payne on 10-17-2024 Hematocrit (Bld) [Volume fraction] 34.1 % Low 37-47 [facility] Hemoglobin measurementOrdere d By: Pete Payne on 10-17-2024 Hemoglobin (Bld) [Mass/Vol] 11.1 g/dL Low 12.0-15.0 [facility] Immature granulocytes/100 WB C Auto (Bld)Ordered By: [facility] Camdensudarshan Payne on 10-17-2024 Immature granulocytes/100 WBC (Bld) 0.400 % 0.0-0.9 [facility] Comment on above: IG% - Immature Granu locytes (promyelocytes, myelocytes and metamyelocytes) > 1% indicates that a LEFT SHIFT is Present. Lymphocytes Auto (Unsp spec) [#/Vol]Ordered By: Saturninohomersudarshan Payne on 10-17-2024 Lymphocytes (Bld) [#/Vol] 3.03 10*3/uL 0.83-4.51 [facility] Lymphocytes/100 WBC Auto (Un sp spec)Ordered By: Pete Payne on 10-17-2024 Lymphocytes/100 WBC (Bld) 31.8 % 19-41 [facility] MCV (mean corpuscular volume ) determinationOrdered By: Pete Payne on 10-17-2024 MCV (RBC) [Entitic vol] 92.4 fL 81-99 [facility] Mean corpuscular hemoglobin (MCH) determinationOrdered By: alexishomersudarshan Payne on 10-17-2024 MCH (RBC) [Entitic mass] 30.1 pg 27.0-32.0 [facility] Mean corpuscular hemoglobin concentration (MCHC) determinationOrdered By: alexishomersudarshan Payne on 10-17-2024 MCHC (RBC) [Mass/Vol] 32.6 g/dL 32-36 [facility] Mean platelet volume determi nationOrdered By: Pete Payne on 10-17-2024 Platelet mean volume (Bld) [Entitic vol] 10.0 fL 6.2-12.0 [facility] Monocyte percentageOrdered B y: Pete Beltrane on 10-17-2024 Monocytes/100 WBC (Bld) 7.4 % 0-10 [facility] Neutrophil percentageOrdered By: Pete Beltrane on 10-17-2024 Neutrophils/100 WBC (Bld) 56.0 % 47-70 [facility] Nucleated red blood cell per centageOrdered By: Pete Beltrane on 10-17-2024 Nucleated RBC/100 WBC (Bld) [Ratio] 0 % 0-5 [facility] Platelet countOrdered By: Ef geena Payne on 10-17-2024 Platelets (Bld) [#/Vol] 346 10*3/uL 150-450 [facility] RBC Auto (Bld) [#/Vol]Ordere d By: Pete Payne on 10-17-2024 RBC (Bld) [#/Vol] 3.69 10*6/uL Low 4.2-5.4 [facility] White blood cell (WBC) count Ordered By: Pete Payne on 10-17-2024 WBC (Bld) [#/Vol] 9.5 10*3/uL 4.4-11.[address] [facility] Absolute lymphocyte countOrd ered By: Pete Beltrane on 10-10-2024 Lymphocytes Auto (Unsp spec) [#/Vol] 2.36 10*3/uL 0.83-4.51 [facility] Absolute neutrophil countOrd ered By: Pete Beltrane on 10-10-2024 Neutrophils (Bld) [#/Vol] 5.5 10*3/uL 2.0-7.7 [facility] Automated lymphocyte count a s percentage of total leukocytesOrdered By: Pete Beltrane on 10-10-2024 Lymphocytes/100 WBC Auto (Unsp spec) 26.6 % 19-41 [facility] Basophil percentageOrdered B y: Pete Beltrane on 10-10-2024 Basophils/100 WBC (Bld) 0.9 % 0-1 [facility] Eosinophil percentageOrdered By: Pete Payne on 10-10-2024 Eosinophils/100 WBC (Bld) 2.8 % 0-5 [facility] Erythrocyte distribution wid th (RBC) [Ratio]Ordered By: Pete Payne on 10-10-2024 Erythrocyte distribution width (RBC) [Entitic vol] 45.0 fL High 35.1-43.9 [facility] Erythrocyte distribution wid th ratioOrdered By: Pete Payne on 10-10-2024 Erythrocyte distribution width (RBC) [Ratio] 13.2 % 11.6-14.6 [facility] Erythrocyte distribution wid th standard deviationOrdered By: geena Payne on 10-10-2024 Erythrocyte distribution width (RBC) [Ratio] 45.0 fl High 35.1-43.9 [facility] Hematocrit Auto (Bld) [Volum e fraction]Ordered By: Pete Payne on 10-10-2024 Hematocrit (Bld) [Volume fraction] 35.0 % Low 37-47 [facility] Hemoglobin measurementOrdere d By: alexishomersudarshan Payne on 10-10-2024 Hemoglobin (Bld) [Mass/Vol] 11.3 g/dL Low 12.0-15.0 [facility] Immature granulocytes/100 WB C Auto (Bld)Ordered By: Pete Payne on 10-10-2024 Immature granulocytes/100 WBC (Bld) 0.500 % 0.0-0.9 [facility] Comment on above: IG% - Immature Granu locytes (promyelocytes, myelocytes and metamyelocytes) > 1% indicates that a LEFT SHIFT is Present. Lymphocytes Auto (Unsp spec) [#/Vol]Ordered By: Pete Payne on 10-10-2024 Lymphocytes (Bld) [#/Vol] 2.36 10*3/uL 0.83-4.51 [facility] Lymphocytes/100 WBC Auto (Un sp spec)Ordered By: Pete Payne on 10-10-2024 Lymphocytes/100 WBC (Bld) 26.6 % 19-41 [facility] MCV (mean corpuscular volume ) determinationOrdered By: Pete Payne on 10-10-2024 MCV (RBC) [Entitic vol] 92.6 fL 81-99 [facility] Mean corpuscular hemoglobin (MCH) determinationOrdered By: Pete Payne on 10-10-2024 MCH (RBC) [Entitic mass] 29.9 pg 27.0-32.0 [facility] Mean corpuscular hemoglobin concentration (MCHC) determinationOrdered By: Pete Payne on 10-10-2024 MCHC (RBC) [Mass/Vol] 32.3 g/dL 32-36 [facility] Mean platelet volume determi nationOrdered By: Pete Payne on 10-10-2024 Platelet mean volume (Bld) [Entitic vol] 10.1 fL 6.2-12.0 [facility] Monocyte percentageOrdered B y: Pete Payne on 10-10-2024 Monocytes/100 WBC (Bld) 6.7 % 0-10 [facility] Neutrophil percentageOrdered By: Pete Payne on 10-10-2024 Neutrophils/100 WBC (Bld) 62.5 % 47-70 [facility] Nucleated red blood cell per centageOrdered By: Pete Payne on 10-10-2024 Nucleated RBC/100 WBC (Bld) [Ratio] 0 % 0-5 [facility] Platelet countOrdered By: Celeste alexisanne Payne on 10-10-2024 Platelets (Bld) [#/Vol] 361 10*3/uL 150-450 [facility] RBC Auto (Bld) [#/Vol]Ordere d By: Saturninokeishasudarshan Payne on 10-10-2024 RBC (Bld) [#/Vol] 3.78 10*6/uL Low 4.2-5.4 [facility] White blood cell (WBC) count Ordered By: Pete Payne on 10-10-2024 WBC (Bld) [#/Vol] 8.9 10*3/uL 4.4-11.[address] [facility] Absolute lymphocyte countOrd ered By: Pete Payne on 10-06-2024 Lymphocytes Auto (Unsp spec) [#/Vol] 2.51 10*3/uL 0.83-4.51 [facility] Absolute neutrophil countOrd ered By: Pete Payne on 10-06-2024 Neutrophils (Bld) [#/Vol] 4.8 10*3/uL 2.0-7.7 [facility] Automated lymphocyte count a s percentage of total leukocytesOrdered By: Pete Payne on 10-06-2024 Lymphocytes/100 WBC Auto (Unsp spec) 30.2 % 19-41 [facility] Basophil percentageOrdered B y: Pete Payne on 10-06-2024 Basophils/100 WBC (Bld) 1.0 % 0-1 [facility] Eosinophil percentageOrdered By: Saturninohomersudarshan Payne on 10-06-2024 Eosinophils/100 WBC (Bld) 3.1 % 0-5 [facility] Erythrocyte distribution wid th (RBC) [Ratio]Ordered By: Pete Payne on 10-06-2024 Erythrocyte distribution width (RBC) [Entitic vol] 44.4 fL High 35.1-43.9 [facility] Erythrocyte distribution wid th ratioOrdered By: [facility] Camdensudarshan Payne on 10-06-2024 Erythrocyte distribution width (RBC) [Ratio] 13.3 % 11.6-14.6 [facility] Erythrocyte distribution wid th standard deviationOrdered By: Saturninohomersudarshan Payne on 10-06-2024 Erythrocyte distribution width (RBC) [Ratio] 44.4 fl High 35.1-43.9 [facility] Hematocrit Auto (Bld) [Volum e fraction]Ordered By: Pete Beltranyulia on 10-06-2024 Hematocrit (Bld) [Volume fraction] 33.2 % Low 37-47 [facility] Hemoglobin measurementOrdere d By: Pete Payne on 10-06-2024 Hemoglobin (Bld) [Mass/Vol] 11.2 g/dL Low 12.0-15.0 [facility] Immature granulocytes/100 WB C Auto (Bld)Ordered By: Pete Beltranyulia on 10-06-2024 Immature granulocytes/100 WBC (Bld) 0.400 % 0.0-0.9 [facility] Comment on above: IG% - Immature Granu locytes (promyelocytes, myelocytes and metamyelocytes) > 1% indicates that a LEFT SHIFT is Present. Lymphocytes Auto (Unsp spec) [#/Vol]Ordered By: Pete Payne on 10-06-2024 Lymphocytes (Bld) [#/Vol] 2.51 10*3/uL 0.83-4.51 [facility] Lymphocytes/100 WBC Auto (Un sp spec)Ordered By: Pete Payne on 10-06-2024 Lymphocytes/100 WBC (Bld) 30.2 % 19-41 [facility] MCV (mean corpuscular volume ) determinationOrdered By: Pete Payne on 10-06-2024 MCV (RBC) [Entitic vol] 91.5 fL 81-99 [facility] Mean corpuscular hemoglobin (MCH) determinationOrdered By: Saturninohomersudarshan Payne on 10-06-2024 MCH (RBC) [Entitic mass] 30.9 pg 27.0-32.0 [facility] Mean corpuscular hemoglobin concentration (MCHC) determinationOrdered By: geena Payne on 10-06-2024 MCHC (RBC) [Mass/Vol] 33.7 g/dL 32-36 [facility] Mean platelet volume determi nationOrdered By: Pete Payne on 10-06-2024 Platelet mean volume (Bld) [Entitic vol] 9.8 fL 6.2-12.0 [facility] Monocyte percentageOrdered B y: Pete Payne on 10-06-2024 Monocytes/100 WBC (Bld) 7.9 % 0-10 [facility] Neutrophil percentageOrdered By: alexishomersudarshan Payne on 10-06-2024 Neutrophils/100 WBC (Bld) 57.4 % 47-70 [facility] Nucleated red blood cell per centageOrdered By: Pete Payne on 10-06-2024 Nucleated RBC/100 WBC (Bld) [Ratio] 0 % 0-5 [facility] Platelet countOrdered By: Celeste Payne on 10-06-2024 Platelets (Bld) [#/Vol] 348 10*3/uL 150-450 [facility] RBC Auto (Bld) [#/Vol]Ordere d By: Pete Payne on 10-06-2024 RBC (Bld) [#/Vol] 3.63 10*6/uL Low 4.2-5.4 [facility] White blood cell (WBC) count Ordered By: Celestealexisanne Kentrellriteshyulia on 10-06-2024 WBC (Bld) [#/Vol] 8.3 10*3/uL 4.4-11.[address] [facility] T4 freeOrdered By: Celestealexisanne Kentrellriteshyulia on 10-03-2024 Free T4 [Mass/Vol] 1.20 ng/dL 0.76-1.[address] [facility] TSH DL <= 0.005 mIU/L QnOrde red By: Celestealexiskeishasudarshan Pfeifferriteshyulia on 10-03-2024 Thyroid Stimulating Hormone (TSH) 4.480 uIU/mL High 0.300-4.200 [facility] TSH Qn 4.480 uIU/mL High 0.300-4.200 [facility] Absolute lymphocyte countOrd ered By: Pete Payne on 08-23-2024 Lymphocytes Auto (Unsp spec) [#/Vol] 2.44 10*3/uL 0.83-4.51 [facility] Absolute neutrophil countOrd ered By: Pete Beltranyulia on 08-23-2024 Neutrophils (Bld) [#/Vol] 5.4 10*3/uL 2.0-7.7 [facility] Albumin to globulin ratioOrd ered By: Pete Payne on 08-23-2024 Albumin/Globulin [Mass ratio] 0.7 {ratio} Low 0.9-2.4 [facility] Automated lymphocyte count a s percentage of total leukocytesOrdered By: Celestealexiskeishasudarshan Pfeifferriteshyulia on 08-23-2024 Lymphocytes/100 WBC Auto (Unsp spec) 27.5 % 19-41 [facility] Basophil percentageOrdered B y: Celestealexiskeishasudarshan Pfeifferriteshyulia on 08-23-2024 Basophils/100 WBC (Bld) 0.6 % 0-1 [facility] Bilirubin, totalOrdered By: Pete Payne on 08-23-2024 Bilirubin [Mass/Vol] 0.90 mg/dL 0.20-1.00 [facility] Comment on above: For patients on eltr ombopag therapy, use of Dim[employer] [place] TBIL is not recommended. Blood urea nitrogen (BUN)/cr eatinine ratioOrdered By: Pete Payne on 08-23-2024 Urea nitrogen/Creatinine [Mass ratio] 19.5 mg/mg 10-20 [facility] Carbon dioxide measurementOr dered By: Pete Payne on 08-23-2024 CO2 [Moles/Vol] 25.0 mmol/L 21.0-32.0 [facility] Chloride measurementOrdered By: Pete Payne on 08-23-2024 Chloride [Moles/Vol] 108 mmol/L High 98-107 [facility] Eosinophil percentageOrdered By: Pete Payne on 08-23-2024 Eosinophils/100 WBC (Bld) 3.4 % 0-5 [facility] Erythrocyte distribution wid th (RBC) [Ratio]Ordered By: Pete Payne on 08-23-2024 Erythrocyte distribution width (RBC) [Entitic vol] 47.5 fL High 35.1-43.9 [facility] Erythrocyte distribution wid th ratioOrdered By: Pete Payne on 08-23-2024 Erythrocyte distribution width (RBC) [Ratio] 13.8 % 11.6-14.6 [facility] Erythrocyte distribution wid th standard deviationOrdered By: Pete Payne on 08-23-2024 Erythrocyte distribution width (RBC) [Ratio] 47.5 fl High 35.1-43.9 [facility] Estimated glomerular filtrat ion rate (GFR) AmericanOrdered By: Pete Payne on 08-23-2024 Estimated GFR (MDRD) Amer 69 mL/min >60 [facility] Comment on above: GFR Calc Glomerular filtration rate ( GFR) estimationOrdered By: Pete Payne on 08-23-2024 Estimated GFR (MDRD) Non-Af Amer 57 mL/min Low >60 [facility] Comment on above: Non- GFR Calc GFR/1.73 sq M.predicted among non-blacks MDRD (S/P/Bld) [Vol rate/Area] 57 mL/min/{1.73_m2} Low >60 [facility] Comment on above: Non- GFR Calc Glucose measurementOrdered B y: Pete Payne on 08-23-2024 Glucose [Mass/Vol] 122 mg/dL High 74-[address] [facility] Comment on above: Fasting Glucose resu lt from 100 to 125 mg/dL suggests IMPAIRED HOMEOSTASIS per A.D.A. criteria. Hematocrit Auto (Bld) [Volum e fraction]Ordered By: Pete Payne on 08-23-2024 Hematocrit (Bld) [Volume fraction] 34.2 % Low 37-47 [facility] Hemoglobin A1c percentageOrd ered By: Pete Payne on 08-23-2024 HbA1c (Bld) [Mass fraction] 6.5 % High 3.8-5.6 [facility] Comment on above: Normal < 5.7 % Predi abetic 5.7 - 6.4 % Diabetic >or= 6.5 % Please note range changes. Hemoglobin measurementOrdere d By: Pete Payne on 08-23-2024 Hemoglobin (Bld) [Mass/Vol] 11.0 g/dL Low 12.0-15.0 [facility] Immature granulocytes/100 WB C Auto (Bld)Ordered By: Pete Payne on 08-23-2024 Immature granulocytes/100 WBC (Bld) 0.600 % 0.0-0.9 [facility] Comment on above: IG% - Immature Granu locytes (promyelocytes, myelocytes and metamyelocytes) > 1% indicates that a LEFT SHIFT is Present. Laboratory - Chemistry and C hemistry - challengeOrdered By: Pete Payne on 08-23-2024 AST [Catalytic activity/Vol] 12 U/L Low 15-37 [facility] Lymphocytes Auto (Unsp spec) [#/Vol]Ordered By: Pete Payne on 08-23-2024 Lymphocytes (Bld) [#/Vol] 2.44 10*3/uL 0.83-4.51 [facility] Lymphocytes/100 WBC Auto (Un sp spec)Ordered By: Pete Payne on 08-23-2024 Lymphocytes/100 WBC (Bld) 27.5 % 19-41 [facility] MCV (mean corpuscular volume ) determinationOrdered By: Pete Payne on 08-23-2024 MCV (RBC) [Entitic vol] 93.4 fL 81-99 [facility] Mean corpuscular hemoglobin (MCH) determinationOrdered By: Pete Payne on 08-23-2024 MCH (RBC) [Entitic mass] 30.1 pg 27.0-32.0 [facility] Mean corpuscular hemoglobin concentration (MCHC) determinationOrdered By: Pete Payne on 08-23-2024 MCHC (RBC) [Mass/Vol] 32.2 g/dL 32-36 [facility] Mean platelet volume determi nationOrdered By: Pete Payne on 08-23-2024 Platelet mean volume (Bld) [Entitic vol] 10.2 fL 6.2-12.0 [facility] Monocyte percentageOrdered B y: Pete Payne on 08-23-2024 Monocytes/100 WBC (Bld) 7.2 % 0-10 [facility] Neutrophil percentageOrdered By: Pete Payne on 08-23-2024 Neutrophils/100 WBC (Bld) 60.7 % 47-70 [facility] Nucleated red blood cell per centageOrdered By: Pete Payne on 08-23-2024 Nucleated RBC/100 WBC (Bld) [Ratio] 0 % 0-5 [facility] Platelet countOrdered By: Celeste Payne on 08-23-2024 Platelets (Bld) [#/Vol] 352 10*3/uL 150-450 [facility] Potassium measurementOrdered By: Pete Payne on 08-23-2024 Potassium [Moles/Vol] 4.0 mmol/L 3.5-5.1 [facility] RBC Auto (Bld) [#/Vol]Ordere d By: Pete Payne on 08-23-2024 RBC (Bld) [#/Vol] 3.66 10*6/uL Low 4.2-5.4 [facility] Serum anion gap measurementO rdered By: Pete Payne on 08-23-2024 Anion gap [Moles/Vol] 8 mmol/L 5-15 [facility] Serum globulin measurementOr dered By: Pete Payne on 08-23-2024 Globulin (S) [Mass/Vol] 3.5 g/dL 2.2-4.2 [facility] Serum or plasma alanine castro otransferase (ALT) measurementOrdered By: Pete Payne on 08-23-2024 ALT [Catalytic activity/Vol] 12 U/L Low 13-56 [facility] Serum or plasma albumin karri urement (mass/volume)Ordered By: Pete Payne on 08-23-2024 Albumin [Mass/Vol] 2.6 g/dL Low 3.2-5.[address] [facility] Serum or plasma alkaline corky sphatase measurementOrdered By: Pete Payne on 08-23-2024 ALP [Catalytic activity/Vol] 54 U/L 45-117 [facility] Serum or plasma calcium karri urement (mass/volume)Ordered By: Pete Payne on 08-23-2024 Calcium [Mass/Vol] 8.5 mg/dL 8.5-10.[address] [facility] Serum or plasma creatinine m easurement (mass/volume)Ordered By: Pete Payne on 08-23-2024 Creatinine [Mass/Vol] 0.98 mg/dL 0.55-1.02 [facility] Comment on above: The validity of the calculated GFR & GFRAA in patients over 70 years has not been determined. Clinical correlation is essential. Serum or plasma thyroid stim ulating hormone (TSH) measurement (units/volume)Ordered By: Pete Payne on 08-23-2024 TSH Qn 3.840 uIU/mL High 0.358-3.740 [facility] Serum or plasma urea nitroge n measurement (mass/volume)Ordered By: Pete Payne on 08-23-2024 Urea nitrogen [Mass/Vol] 19 mg/dL High 7-18 [facility] Sodium levelOrdered By: Saturnino Payne on 08-23-2024 Sodium [Moles/Vol] 141 mmol/L 136-[address] [facility] TSH QnOrdered By: Pete Payne on 08-23-2024 Thyroid Stimulating Hormone (TSH) 3.840 uIU/mL High 0.358-3.740 [facility] Total proteinOrdered By: Ramsey Payne on 08-23-2024 Protein [Mass/Vol] 6.1 g/dL Low 6.4-8.[address] [facility] White blood cell (WBC) count Ordered By: Pete Payne on 08-23-2024 WBC (Bld) [#/Vol] 8.9 10*3/uL 4.4-11.[address] [facility] TSH QnOrdered By: Pete Payne on 07-11-2024 Thyroid Stimulating Hormone (TSH) 3.030 uIU/mL 0.358-3.740 [facility] Absolute lymphocyte countOrd ered By: Pete Payne on 08-25-2023 Lymphocytes Auto (Unsp spec) [#/Vol] 2.56 10*3/uL 0.83-4.51 [facility] Automated lymphocyte count a s percentage of total leukocytesOrdered By: Pete Payne on 08-25-2023 Lymphocytes/100 WBC Auto (Unsp spec) 28.1 % 19-41 [facility] Basophil percentageOrdered B y: Pete Payne on 08-25-2023 Basophils/100 WBC (Bld) 1.0 % 0-1 [facility] Bilirubin [Mass/Vol] 1.00 mg/dL 0.20-1.00 [facility] Comment on above: For patients on eltr ombopag therapy, use of [employer] [place] TBIL is not recommended. Chloride [Moles/Vol] 107 mmol/L 98-107 [facility] Eosinophils/100 WBC (Bld) 3.4 % 0-5 [facility] Glucose [Mass/Vol] 143 mg/dL 74-[address] [facility] Comment on above: Fasting Glucose resu lt greater than or equal to 126 mg/dL suggests DIABETES MELLITUS per A.D.A. criteria. Hemoglobin (Bld) [Mass/Vol] 11.1 g/dL 12.0-15.0 [facility] Monocytes/100 WBC (Bld) 6.9 % 0-10 [facility] Neutrophils (Bld) [#/Vol] 5.5 10*3/uL 2.0-7.7 [facility] Neutrophils/100 WBC (Bld) 60.3 % 47-70 [facility] Potassium [Moles/Vol] 4.1 mmol/L 3.5-5.1 [facility] Protein [Mass/Vol] 6.8 g/dL 6.4-8.[address] [facility] Sodium [Moles/Vol] 140 mmol/L 136-[address] [facility] WBC (Bld) [#/Vol] 9.1 10*3/uL 4.4-11.[address] [facility] Determination of erythrocyte mean corpuscular volume (MCV)Ordered By: Pete Payne on 08-25-2023 MCV (RBC) [Entitic vol] 93.5 fL 81-99 [facility] Erythrocyte distribution wid th ratioOrdered By: [facility] Camdensudarshan Payne on 08-25-2023 Erythrocyte distribution width (RBC) [Ratio] 12.9 % 11.6-14.6 [facility] Erythrocyte distribution wid th standard deviationOrdered By: [facility] Kentrellyulia on 08-25-2023 Erythrocyte distribution width (RBC) [Entitic vol] 44.3 fL 35.1-43.9 [facility] Hematocrit Auto (Bld) [Volum e fraction]Ordered By: Saturninohomersudarshan Payne on 08-25-2023 Hematocrit (Bld) [Volume fraction] 34.5 % 37-47 [facility] Immature granulocytes/100 WB C Auto (Bld)Ordered By: alexishomersudarshan Payne on 08-25-2023 Immature granulocytes/100 WBC (Bld) 0.300 % 0.0-0.9 [facility] Comment on above: IG% - Immature Granu locytes (promyelocytes, myelocytes and metamyelocytes) > 1% indicates that a LEFT SHIFT is Present. Laboratory - Chemistry and C hemistry - challengeOrdered By: Pete Payne on 08-25-2023 Albumin/Globulin [Mass ratio] 0.8 {ratio} 0.9-2.4 [facility] ALP [Catalytic activity/Vol] 62 U/L 45-117 [facility] ALT [Catalytic activity/Vol] 14 U/L 13-56 [facility] CO2 [Moles/Vol] 25.0 mmol/L 21.0-32.0 [facility] Globulin (S) [Mass/Vol] 3.8 g/dL 2.2-4.2 [facility] Urea nitrogen/Creatinine [Mass ratio] 20.9 mg/mg 10-20 [facility] Laboratory - Hematology and Cell countsOrdered By: Pete Payne on 08-25-2023 MCH (RBC) [Entitic mass] 30.1 pg 27.0-32.0 [facility] MCHC (RBC) [Mass/Vol] 32.2 g/dL 32-36 [facility] Nucleated RBC/100 WBC (Bld) [Ratio] 0 % 0-5 [facility] Platelet mean volume (Bld) [Entitic vol] 10.2 fL 6.2-12.0 [facility] Platelets (Bld) [#/Vol] 373 10*3/uL 150-450 [facility] No Panel InformationOrdered By: Pete Payne on 08-25-2023 Estimated GFR (MDRD) Amer 71 mL/min >60 [facility] Comment on above: GFR Calc Estimated GFR (MDRD) Non-Af Amer 59 mL/min >60 [facility] Comment on above: Non- GFR Calc RBC Auto (Bld) [#/Vol]Ordere d By: Pete Payne on 08-25-2023 RBC (Bld) [#/Vol] 3.69 10*6/uL 4.2-5.4 [facility] Serum or plasma calcium karri urement (mass/volume)Ordered By: Pete Payne on 08-25-2023 Calcium [Mass/Vol] 9.4 mg/dL 8.5-10.[address] [facility] Serum or plasma creatinine m easurement (mass/volume)Ordered By: Pete Payne on 08-25-2023 Creatinine [Mass/Vol] 0.96 mg/dL 0.55-1.02 [facility] Comment on above: The validity of the calculated GFR & GFRAA in patients over 70 years has not been determined. Clinical correlation is essential. Serum or plasma urea nitroge n measurement (mass/volume)Ordered By: Pete Payne on 08-25-2023 Urea nitrogen [Mass/Vol] 20 mg/dL 7-18 [facility] Thin prep Papanicolaou smear with manual screeningOrdered By: alexishomersudarshan Payne on 08-25-2023 Thin prep Papanicolaou smear with manual screening 3.0 g/dL 3.2-5.0 [facility] Thin prep Papanicolaou smear with manual screening 13 U/L 15-37 [facility] Thin prep Papanicolaou smear with manual screening 8 5-15 [facility] Whole blood hemoglobin A1c/t otal hemoglobin ratio (mass fraction)Ordered By: Pete Payne on 08-25-2023 HbA1c (Bld) [Mass fraction] 6.9 % 3.8-5.6 [facility] Comment on above: Normal < 5.7 % Predi abetic 5.7 - 6.4 % Diabetic >or= 6.5 % Please note range changes. Laboratory - Chemistry and C hemistry - challengeOrdered By: Pete Payne on 03-16-2023 Free T4 [Mass/Vol] 1.07 ng/dL 0.76-1.[address] [facility] No Panel InformationOrdered By: Pete Payne on 03-16-2023 Thyroid Stimulating Hormone (TSH) 4.03 uIU/mL 0.358-3.74 [facility] Total Triiodothyronine 1.24 ng/mL 0.6-1.81 [facility] Absolute lymphocyte countOrd ered By: Pete Payne on 03-12-2023 Lymphocytes Auto (Unsp spec) [#/Vol] 2.46 10*3/uL 0.83-4.51 [facility] Basophil percentageOrdered B y: Pete Payne on 03-12-2023 Basophils/100 WBC (Bld) 1.1 % 0-1 [facility] Bilirubin [Mass/Vol] 0.70 mg/dL 0.20-1.00 [facility] Comment on above: For patients on eltr ombopag therapy, use of [employer] [place] TBIL is not recommended. Chloride [Moles/Vol] 106 mmol/L 98-107 [facility] Cholesterol [Mass/Vol] 106 mg/dL <200 [facility] Comment on above: <200 mg/dL Desirable 200-240 mg/dL Borderline >240 mg/dL High Risk Eosinophils/100 WBC (Bld) 2.8 % 0-5 [facility] Glucose [Mass/Vol] 151 mg/dL 74-[address] [facility] Comment on above: Fasting Glucose resu lt greater than or equal to 126 mg/dL suggests DIABETES MELLITUS per A.D.A. criteria. Neutrophils (Bld) [#/Vol] 4.8 10*3/uL 2.0-7.7 [facility] Neutrophils/100 WBC (Bld) 57.0 % 47-70 [facility] Potassium [Moles/Vol] 4.1 mmol/L 3.5-5.1 [facility] Protein [Mass/Vol] 6.3 g/dL 6.4-8.[address] [facility] Sodium [Moles/Vol] 138 mmol/L 136-[address] [facility] Triglyceride [Mass/Vol] 135 mg/dL <199 [facility] Comment on above: The drugs N-Acetylcy steine and Metamizole may falsely depress this assay.Serum Triglycerides Reference Interval Normal <150 mg/dL Borderline high 150 - 199 mg/dL High 200 - 499 mg/dL Very High > or = 500 mg/dL WBC (Bld) [#/Vol] 8.3 10*3/uL 4.4-11.[address] [facility] Blood erythrocytes count (nu mber/volume)Ordered By: Peet aPyne on 03-12-2023 RBC (Bld) [#/Vol] 3.59 10*6/uL 4.2-5.4 [facility] Blood hemoglobin measurement (mass/volume)Ordered By: Pete Payne on 03-12-2023 Hemoglobin (Bld) [Mass/Vol] 11.0 g/dL 12.0-15.0 [facility] Blood lymphocytes/100 leukoc ytesOrdered By: Celestealexiskeishasudarshan Pfeifferriteshyulia on 03-12-2023 Lymphocytes/100 WBC (Bld) 29.5 % 19-41 [facility] Blood monocytes/100 leukocyt esOrdered By: alexishomersudarshan Pfeifferriteshyulia on 03-12-2023 Monocytes/100 WBC (Bld) 9.2 % 0-10 [facility] Blood platelet mean volumeOr dered By: Celestegeena Payne on 03-12-2023 Platelet mean volume (Bld) [Entitic vol] 9.8 fL 6.2-12.0 [facility] Determination of erythrocyte mean corpuscular volume (MCV)Ordered By: Pete Payne on 03-12-2023 MCV (RBC) [Entitic vol] 93.9 fL 81-99 [facility] Hematocrit Auto (Bld) [Volum e fraction]Ordered By: Pete Payne on 03-12-2023 Hematocrit (Bld) [Volume fraction] 33.7 % 37-47 [facility] Laboratory - Chemistry and C hemistry - challengeOrdered By: Celestegeena Payne on 03-12-2023 ALP [Catalytic activity/Vol] 57 U/L 45-117 [facility] ALT [Catalytic activity/Vol] 16 U/L 13-56 [facility] CO2 [Moles/Vol] 25.0 mmol/L 21.0-32.0 [facility] Globulin (S) [Mass/Vol] 3.4 g/dL 2.2-4.2 [facility] Urea nitrogen/Creatinine [Mass ratio] 16.0 mg/mg 10-20 [facility] Laboratory - Hematology and Cell countsOrdered By: Pete Payne on 03-12-2023 Erythrocyte distribution width (RBC) [Entitic vol] 42.9 fL 35.1-43.9 [facility] Erythrocyte distribution width (RBC) [Ratio] 12.4 % 11.6-14.6 [facility] Immature granulocytes/100 WBC (Bld) 0.400 % 0.0-0.9 [facility] Comment on above: IG% - Immature Granu locytes (promyelocytes, myelocytes and metamyelocytes) > 1% indicates that a LEFT SHIFT is Present. MCH (RBC) [Entitic mass] 30.6 pg 27.0-32.0 [facility] Nucleated RBC/100 WBC (Bld) [Ratio] 0 % 0-5 [facility] MCHC Auto (RBC) [Mass/Vol]Or dered By: Pete Payne on 03-12-2023 MCHC (RBC) [Mass/Vol] 32.6 g/dL 32-36 [facility] No Panel InformationOrdered By: Pete Payne on 03-12-2023 Estimated GFR (MDRD) Amer 63 mL/min >60 [facility] Comment on above: GFR Calc Estimated GFR (MDRD) Non-Af Amer 52 mL/min >60 [facility] Comment on above: Non- GFR Calc Thyroid Stimulating Hormone (TSH) 4.75 uIU/mL 0.358-3.74 [facility] Vitamin D 25-Hydroxy 107.1 ng/mL [facility] Comment on above: Vitamin D 25(OH) [...] 03-12-2023 Platelets (Bld) [#/Vol] 361 10*3/uL 150-450 [facility] Serum or plasma albumin karri urement (mass/volume)Ordered By: Pete Payne on 03-12-2023 Albumin [Mass/Vol] 2.9 g/dL 3.2-5.[address] [facility] Serum or plasma albumin/glob ulin mass ratioOrdered By: Pete Payne on 03-12-2023 Albumin/Globulin [Mass ratio] 0.9 {ratio} 0.9-2.4 [facility] Serum or plasma calcium karri urement (mass/volume)Ordered By: Pete Payne on 03-12-2023 Calcium [Mass/Vol] 9.0 mg/dL 8.5-10.[address] [facility] Serum or plasma cholesterol in HDL measurement (mass/volume)Ordered By: Pete Payne on 03-12-2023 Cholesterol in HDL [Mass/Vol] 46 mg/dL >40 [facility] Comment on above: The drugs N-Acetylcy steine and Metamizole may falsely depress this assay. Reference Range HDL <40 mg/dL Low HDL Cholesterol HDL >or= 60 mg/dL High HDL Cholesterol Serum or plasma cholesterol in VLDL measurement (mass/volume)Ordered By: Pete Payne on 03-12-2023 Cholesterol in VLDL [Mass/Vol] 27 mg/dL 5-40 [facility] Serum or plasma creatinine m easurement (mass/volume)Ordered By: Pete Payne on 03-12-2023 Creatinine [Mass/Vol] 1.06 mg/dL 0.55-1.02 [facility] Comment on above: The validity of the calculated GFR & GFRAA in patients over 70 years has not been determined. Clinical correlation is essential. Serum or plasma low density lipoprotein (LDL) cholesterol measurement (mass/volume)Ordered By: Pete Payne on 03-12-2023 Cholesterol in LDL [Mass/Vol] 33 mg/dL 0-130 [facility] Serum or plasma urea nitroge n measurement (mass/volume)Ordered By: Pete Payne on 03-12-2023 Urea nitrogen [Mass/Vol] 17 mg/dL 7-18 [facility] Thin prep Papanicolaou smear with manual screeningOrdered By: Pete Payne on 03-12-2023 Thin prep Papanicolaou smear with manual screening 13 U/L 15-37 [facility] Thin prep Papanicolaou smear with manual screening 7 5-15 [facility] Whole blood hemoglobin A1c/t otal hemoglobin ratio (mass fraction)Ordered By: Pete Payne on 03-12-2023 HbA1c (Bld) [Mass fraction] 7.2 % 3.8-5.6 [facility] Comment on above: Normal < 5.7 % Predi abetic 5.7 - 6.4 % Diabetic >or= 6.5 % Please note range changes. Absolute lymphocyte countOrd ered By: alexishomersudarshan Payne on 12-01-2022 Lymphocytes Auto (Unsp spec) [#/Vol] 2.66 10*3/uL 0.83-4.51 [facility] Basophil percentageOrdered B y: Pete Payne on 12-01-2022 Basophils/100 WBC (Bld) 1.0 % 0-1 [facility] Bilirubin [Mass/Vol] 1.00 mg/dL 0.20-1.00 [facility] Comment on above: For patients on eltr ombopag therapy, use of Dimension [place] TBIL is not recommended. Chloride [Moles/Vol] 100 mmol/L 98-107 [facility] Eosinophils/100 WBC (Bld) 2.3 % 0-5 [facility] Glucose [Mass/Vol] 152 mg/dL 74-[address] [facility] Comment on above: Fasting Glucose resu lt greater than or equal to 126 mg/dL suggests DIABETES MELLITUS per A.D.A. criteria. Neutrophils (Bld) [#/Vol] 5.8 10*3/uL 2.0-7.7 [facility] Neutrophils/100 WBC (Bld) 60.2 % 47-70 [facility] Potassium [Moles/Vol] 4.3 mmol/L 3.5-5.1 [facility] Protein [Mass/Vol] 6.1 g/dL 6.4-8.[address] [facility] Sodium [Moles/Vol] 138 mmol/L 136-[address] [facility] WBC (Bld) [#/Vol] 9.7 10*3/uL 4.4-11.[address] [facility] Blood erythrocytes count (nu mber/volume)Ordered By: Pete Payne on 12-01-2022 RBC (Bld) [#/Vol] 3.46 10*6/uL 4.2-5.4 [facility] Blood hemoglobin measurement (mass/volume)Ordered By: Pete Payne on 12-01-2022 Hemoglobin (Bld) [Mass/Vol] 10.8 g/dL 12.0-15.0 [facility] Blood lymphocytes/100 leukoc ytesOrdered By: Pete Payne on 12-01-2022 Lymphocytes/100 WBC (Bld) 27.5 % 19-41 [facility] Blood monocytes/100 leukocyt esOrdered By: geena Payne on 12-01-2022 Monocytes/100 WBC (Bld) 8.4 % 0-10 [facility] Blood platelet mean volumeOr dered By: Pete Payne on 12-01-2022 Platelet mean volume (Bld) [Entitic vol] 9.9 fL 6.2-12.0 [facility] Determination of erythrocyte mean corpuscular volume (MCV)Ordered By: Pete Payne on 12-01-2022 MCV (RBC) [Entitic vol] 97.1 fL 81-99 [facility] Hematocrit Auto (Bld) [Volum e fraction]Ordered By: Pete Payne on 12-01-2022 Hematocrit (Bld) [Volume fraction] 33.6 % 37-47 [facility] Laboratory - Chemistry and C hemistry - challengeOrdered By: Pete Payne on 12-01-2022 ALP [Catalytic activity/Vol] 60 U/L 45-117 [facility] ALT [Catalytic activity/Vol] 22 U/L 13-56 [facility] CO2 [Moles/Vol] 29.0 mmol/L 21.0-32.0 [facility] Globulin (S) [Mass/Vol] 3.3 g/dL 2.2-4.2 [facility] Urea nitrogen/Creatinine [Mass ratio] 16.1 mg/mg 10-20 [facility] Laboratory - Hematology and Cell countsOrdered By: Pete Payne on 12-01-2022 Erythrocyte distribution width (RBC) [Entitic vol] 44.6 fL 35.1-43.9 [facility] Erythrocyte distribution width (RBC) [Ratio] 12.5 % 11.6-14.6 [facility] Immature granulocytes/100 WBC (Bld) 0.600 % 0.0-0.9 [facility] Comment on above: IG% - Immature Granu locytes (promyelocytes, myelocytes and metamyelocytes) > 1% indicates that a LEFT SHIFT is Present. MCH (RBC) [Entitic mass] 31.2 pg 27.0-32.0 [facility] Nucleated RBC/100 WBC (Bld) [Ratio] 0 % 0-5 [facility] MCHC Auto (RBC) [Mass/Vol]Or dered By: Pete Payne on 12-01-2022 MCHC (RBC) [Mass/Vol] 32.1 g/dL 32-36 [facility] No Panel InformationOrdered By: Pete Payne on 12-01-2022 Estimated GFR (MDRD) Amer 59 mL/min >60 [facility] Comment on above: GFR Calc Estimated GFR (MDRD) Non-Af Amer 49 mL/min >60 [facility] Comment on above: Non- GFR Calc Platelets bldOrdered By: Ramsey Payne on 12-01-2022 Platelets (Bld) [#/Vol] 517 10*3/uL 150-450 [facility] Serum or plasma albumin krari urement (mass/volume)Ordered By: Pete Payne on 12-01-2022 Albumin [Mass/Vol] 2.8 g/dL 3.2-5.[address] [facility] Serum or plasma albumin/glob ulin mass ratioOrdered By: Pete Payne on 12-01-2022 Albumin/Globulin [Mass ratio] 0.8 {ratio} 0.9-2.4 [facility] Serum or plasma calcium karri urement (mass/volume)Ordered By: Pete Payne on 12-01-2022 Calcium [Mass/Vol] 9.0 mg/dL 8.5-10.[address] [facility] Serum or plasma creatinine m easurement (mass/volume)Ordered By: Pete Payne on 12-01-2022 Creatinine [Mass/Vol] 1.12 mg/dL 0.55-1.02 [facility] Comment on above: The validity of the calculated GFR & GFRAA in patients over 70 years has not been determined. Clinical correlation is essential. Serum or plasma urea nitroge n measurement (mass/volume)Ordered By: Pete Payne on 12-01-2022 Urea nitrogen [Mass/Vol] 18 mg/dL 7-18 [facility] Thin prep Papanicolaou smear with manual screeningOrdered By: [facility] on 12-01-2022 Thin prep Papanicolaou smear with manual screening 15 U/L 15-37 [facility] Thin prep Papanicolaou smear with manual screening 9 5-15 [facility] Glucose Glucometer (BldC) [M ass/Vol]Ordered By: Dr. Crooks on 11-29-2022 Glucose [Mass/Vol] 95 mg/dL 74-[address] [facility] Comment on above: MANAGEMENT OF PATIEN T CARE PER NURSING PROTOCOL Absolute lymphocyte countOrd ered By: Dr. Crooks on 11-28-2022 Lymphocytes Auto (Unsp spec) [#/Vol] 2.74 10*3/uL 0.83-4.51 [facility] Basophil percentageOrdered B y: Dr. Crooks on 11-28-2022 Basophils/100 WBC (Bld) 0.9 % 0-1 [facility] Chloride [Moles/Vol] 104 mmol/L 98-107 [facility] Eosinophils/100 WBC (Bld) 2.2 % 0-5 [facility] Glucose [Mass/Vol] 146 mg/dL 74-[address] [facility] Comment on above: Fasting Glucose resu lt greater than or equal to 126 mg/dL suggests DIABETES MELLITUS per A.D.A. criteria. Neutrophils (Bld) [#/Vol] 7.4 10*3/uL 2.0-7.7 [facility] Neutrophils/100 WBC (Bld) 65.0 % 47-70 [facility] Potassium [Moles/Vol] 4.2 mmol/L 3.5-5.1 [facility] Sodium [Moles/Vol] 137 mmol/L 136-[address] [facility] WBC (Bld) [#/Vol] 11.4 10*3/uL 4.4-11.0 [facility] Blood erythrocytes count (nu mber/volume)Ordered By: Dr. Coroks on 11-28-2022 RBC (Bld) [#/Vol] 3.62 10*6/uL 4.2-5.4 [facility] Blood hemoglobin measurement (mass/volume)Ordered By: Dr. Crooks on 11-28-2022 Hemoglobin (Bld) [Mass/Vol] 11.2 g/dL 12.0-15.0 [facility] Blood lymphocytes/100 leukoc ytesOrdered By: Dr. Crooks on 11-28-2022 Lymphocytes/100 WBC (Bld) 24.1 % 19-41 [facility] Blood monocytes/100 leukocyt esOrdered By: Dr. Crooks on 11-28-2022 Monocytes/100 WBC (Bld) 7.2 % 0-10 [facility] Blood platelet mean volumeOr dered By: Dr. Crooks on 11-28-2022 Platelet mean volume (Bld) [Entitic vol] 9.3 fL 6.2-12.0 [facility] Determination of erythrocyte mean corpuscular volume (MCV)Ordered By: Dr. Crooks on 11-28-2022 MCV (RBC) [Entitic vol] 96.4 fL 81-99 [facility] Glucose Glucometer (BldC) [M ass/Vol]Ordered By: Dr. Crooks on 11-28-2022 Glucose [Mass/Vol] 146 mg/dL 74-[address] [facility] Comment on above: MANAGEMENT OF PATIEN T CARE PER NURSING PROTOCOL Hematocrit Auto (Bld) [Volum e fraction]Ordered By: Dr. Crooks on 11-28-2022 Hematocrit (Bld) [Volume fraction] 34.9 % 37-47 [facility] Laboratory - Chemistry and C hemistry - challengeOrdered By: Dr. Crooks on 11-28-2022 CO2 [Moles/Vol] 28.0 mmol/L 21.0-32.0 [facility] Urea nitrogen/Creatinine [Mass ratio] 18.2 mg/mg 10-20 [facility] Laboratory - Hematology and Cell countsOrdered By: Dr. Crooks on 11-28-2022 Erythrocyte distribution width (RBC) [Entitic vol] 43.3 fL 35.1-43.9 [facility] Erythrocyte distribution width (RBC) [Ratio] 12.4 % 11.6-14.6 [facility] Immature granulocytes/100 WBC (Bld) 0.600 % 0.0-0.9 [facility] Comment on above: IG% - Immature Granu locytes (promyelocytes, myelocytes and metamyelocytes) > 1% indicates that a LEFT SHIFT is Present. MCH (RBC) [Entitic mass] 30.9 pg 27.0-32.0 [facility] Nucleated RBC/100 WBC (Bld) [Ratio] 0 % 0-5 [facility] MCHC Auto (RBC) [Mass/Vol]Or dered By: Dr. Crooks on 11-28-2022 MCHC (RBC) [Mass/Vol] 32.1 g/dL 32-36 [facility] No Panel InformationOrdered By: Dr. Crooks on 11-28-2022 Estimated Creatinine Clearance Calc 37.22 ml/min [facility] Estimated GFR (MDRD) Amer 73 mL/min >60 [facility] Comment on above: GFR Calc Estimated GFR (MDRD) Non-Af Amer 61 mL/min >60 [facility] Comment on above: Non- GFR Calc Platelets bldOrdered By: Dr. Crooks on 11-28-2022 Platelets (Bld) [#/Vol] 445 10*3/uL 150-450 [facility] Serum or plasma calcium karri urement (mass/volume)Ordered By: Dr. Crooks on 11-28-2022 Calcium [Mass/Vol] 8.9 mg/dL 8.5-10.[address] [facility] Serum or plasma creatinine m easurement (mass/volume)Ordered By: Dr. Crooks on 11-28-2022 Creatinine [Mass/Vol] 0.93 mg/dL 0.55-1.02 [facility] Comment on above: The validity of the calculated GFR & GFRAA in patients over 70 years has not been determined. Clinical correlation is essential. Serum or plasma urea nitroge n measurement (mass/volume)Ordered By: Dr. Crooks on 11-28-2022 Urea nitrogen [Mass/Vol] 17 mg/dL 7-18 [facility] Thin prep Papanicolaou smear with manual screeningOrdered By: Dr. Crooks on 11-28-2022 Thin prep Papanicolaou smear with manual screening 5 5-15 [facility] COVID-19 virus antigen assay Ordered By: Sylvester Crooks on 11-16-2022 SARS-CoV-2 (COVID-19) Ag IA.rapid Ql (Resp) [facility] COVID-19 virus antigen assay Ordered By: Dr. Crooks on 11-16-2022 SARS-CoV-2 (COVID-19) Ag IA.rapid Ql (Resp) [facility] Culture, urineOrdered By: Dr Néstor Crooks on 11-16-2022 Bacteria identified Cx Nom (U) Escherichia coli [facility] Bacteria identified Cx Nom (U) Klebsiella pneumoniae sp pneum [facility] Basophil percentageOrdered B y: Dr. Crooks on 11-14-2022 Basophil percentage 10-25 SEEN /hpf 0-5 [facility] Bilirubin Test strip Ql (U)O rdered By: Dr. Crooks on 11-14-2022 Bilirubin Ql (U) Negative Negative [facility] Culture, urineOrdered By: Raffi Crooks on 11-14-2022 Bacteria identified Cx Nom (U) Escherichia coli [facility] Bacteria identified Cx Nom (U) Klebsiella pneumoniae sp pneum [facility] Ketones Test strip Ql (U)Ord ered By: Dr. Crooks on 11-14-2022 Ketones Ql (U) Negative Negative [facility] Mucus LM Ql (Urine sed)Order ed By: Dr. Crooks on 11-14-2022 Mucus Ql (Urine sed) 0 SEEN /hpf [facility] Nitrite Test strip Ql (U)Ord ered By: Dr. Crooks on 11-14-2022 Nitrite Ql (U) Negative Negative [facility] No Panel InformationOrdered By: Dr. Crooks on 11-14-2022 Urine Transitional Epithelial Cells 0-5 SEEN /hpf 0-5 [facility] Protein Test strip Ql (U)Ord ered By: Dr. Crooks on 11-14-2022 Protein Ql (U) Negative Negative [facility] Squamous epithelial cells de tection in urine sediment by light microscopyOrdered By: Dr. Crooks on 11-14-2022 Epithelial cells.squamous LM Ql (Urine sed) 0-5 SEEN /hpf 5-10 [facility] Urine blood detectionOrdered By: Dr. Crooks on 11-14-2022 RBC Ql (U) 10 /ul Negative [facility] RBC Ql (U) 0-5 SEEN /hpf 0-5 [facility] Urine clarityOrdered By: Dr. Crooks on 11-14-2022 Clarity (U) Sl. Cloudy Clear [facility] Urine color determinationOrd ered By: Dr. Crooks on 11-14-2022 Color (U) Yellow Yellow [facility] Urine glucose detectionOrder ed By: Dr. Crooks on 11-14-2022 Glucose Ql (U) 100 mg/dl Normal [facility] Urine leukocyte esterase det ection by dipstickOrdered By: Dr. Crooks on 11-14-2022 Leukocyte esterase Test strip Ql (U) 100 /ul Negative [facility] Urine pHOrdered By: Dr. Crooks on 11-14-2022 pH (U) 6.0 [pH] 5.0 - 8.0 [facility] Urine sediment bacteria coun t by microscopy (number/high power field)Ordered By: Dr. Crooks on 11-14-2022 Bacteria LM.HPF (Urine sed) [#/Area] 1 /[HPF] None Seen [facility] Urine specific gravity measu rementOrdered By: Dr. Crooks on 11-14-2022 Specific gravity (U) [Rel density] 1.010 1.002-1.030 [facility] Urobilinogen Auto test strip Ql (U)Ordered By: Dr. Crooks on 11-14-2022 Urobilinogen Ql (U) Normal mg/dl Normal [facility] Absolute lymphocyte countOrd ered By: Dr. Betancur on 11-13-2022 Lymphocytes Auto (Unsp spec) [#/Vol] 3.26 10*3/uL 0.83-4.51 [facility] Basophil percentageOrdered B y: Dr. Betancur on 11-13-2022 Basophils/100 WBC (Bld) 0.7 % 0-1 [facility] Bilirubin [Mass/Vol] 1.00 mg/dL 0.20-1.00 [facility] Comment on above: For patients on eltr ombopag therapy, use of Dim[employer] [place] TBIL is not recommended. Chloride [Moles/Vol] 106 mmol/L 98-107 [facility] Eosinophils/100 WBC (Bld) 1.7 % 0-5 [facility] Glucose [Mass/Vol] 150 mg/dL 74-[address] [facility] Comment on above: Fasting Glucose resu lt greater than or equal to 126 mg/dL suggests DIABETES MELLITUS per A.D.A. criteria. Neutrophils (Bld) [#/Vol] 8.7 10*3/uL 2.0-7.7 [facility] Neutrophils/100 WBC (Bld) 66.3 % 47-70 [facility] Potassium [Moles/Vol] 3.9 mmol/L 3.5-5.1 [facility] Protein [Mass/Vol] 5.6 g/dL 6.4-8.[address] [facility] Sodium [Moles/Vol] 132 mmol/L 136-[address] [facility] WBC (Bld) [#/Vol] 13.2 10*3/uL 4.4-11.0 [facility] Blood erythrocytes count (nu mber/volume)Ordered By: Dr. Betancur on 11-13-2022 RBC (Bld) [#/Vol] 3.32 10*6/uL 4.2-5.4 [facility] Blood hemoglobin measurement (mass/volume)Ordered By: Dr. Betancur on 11-13-2022 Hemoglobin (Bld) [Mass/Vol] 10.5 g/dL 12.0-15.0 [facility] Blood lymphocytes/100 leukoc ytesOrdered By: Dr. Betancur on 11-13-2022 Lymphocytes/100 WBC (Bld) 24.7 % 19-41 [facility] Blood monocytes/100 leukocyt esOrdered By: Dr. Betancur on 11-13-2022 Monocytes/100 WBC (Bld) 6.2 % 0-10 [facility] Blood platelet mean volumeOr dered By: Dr. Betancur on 11-13-2022 Platelet mean volume (Bld) [Entitic vol] 8.6 fL 6.2-12.0 [facility] COVID-19 virus antigen assay Ordered By: Bernice Betancur on 11-13-2022 SARS-CoV-2 (COVID-19) Ag IA.rapid Ql (Resp) [facility] COVID-19 virus antigen assay Ordered By: Dr. Betancur on 11-13-2022 SARS-CoV-2 (COVID-19) Ag IA.rapid Ql (Resp) [facility] Determination of erythrocyte mean corpuscular volume (MCV)Ordered By: Dr. Betancur on 11-13-2022 MCV (RBC) [Entitic vol] 92.5 fL 81-99 [facility] Direct bilirubinOrdered By: Dr. Betancur on 11-13-2022 Bilirubin.direct [Mass/Vol] 0.34 mg/dL 0.00-0.30 [facility] Hematocrit Auto (Bld) [Volum e fraction]Ordered By: Dr. Betancur on 11-13-2022 Hematocrit (Bld) [Volume fraction] 30.7 % 37-47 [facility] Iron measurement (mass/mass) Ordered By: Dr. Betancur on 11-13-2022 Iron (Unsp spec) [Mass/Mass] 48 ug/dL 50-170 [facility] Laboratory - Chemistry and C hemistry - challengeOrdered By: Dr. Betancur on 11-13-2022 ALP [Catalytic activity/Vol] 35 U/L 45-117 [facility] ALT [Catalytic activity/Vol] 19 U/L 13-56 [facility] CO2 [Moles/Vol] 23.0 mmol/L 21.0-32.0 [facility] Cobalamin (Vitamin B12) [Mass/Vol] 583 pg/mL 211-911 [facility] Free T4 [Mass/Vol] 1.48 ng/dL 0.76-1.[address] [facility] Globulin (S) [Mass/Vol] 2.8 g/dL 2.2-4.2 [facility] Urea nitrogen/Creatinine [Mass ratio] 17.2 mg/mg 10-20 [facility] Laboratory - Hematology and Cell countsOrdered By: Dr. Betancur on 11-13-2022 Erythrocyte distribution width (RBC) [Entitic vol] 42.5 fL 35.1-43.9 [facility] Erythrocyte distribution width (RBC) [Ratio] 12.7 % 11.6-14.6 [facility] Immature granulocytes/100 WBC (Bld) 0.400 % 0.0-0.9 [facility] Comment on above: IG% - Immature Granu locytes (promyelocytes, myelocytes and metamyelocytes) > 1% indicates that a LEFT SHIFT is Present. MCH (RBC) [Entitic mass] 31.6 pg 27.0-32.0 [facility] Nucleated RBC/100 WBC (Bld) [Ratio] 0 % 0-5 [facility] MCHC Auto (RBC) [Mass/Vol]Or dered By: Dr. Betancur on 11-13-2022 MCHC (RBC) [Mass/Vol] 34.2 g/dL 32-36 [facility] No Panel InformationOrdered By: Dr. Betancur on 11-13-2022 Estimated Creatinine Clearance Calc 35.38 ml/min [facility] Estimated GFR (MDRD) Amer 103 mL/min >60 [facility] Comment on above: GFR Calc Estimated GFR (MDRD) Non-Af Amer 85 mL/min >60 [facility] Comment on above: Non- GFR Calc Thyroid Stimulating Hormone (TSH) 1.14 uIU/mL 0.358-3.74 [facility] Total Iron Binding Capacity 214 ug/dL 250-450 [facility] Platelets bldOrdered By: Dr. Betancur on 11-13-2022 Platelets (Bld) [#/Vol] 370 10*3/uL 150-450 [facility] Serum or plasma albumin karri urement (mass/volume)Ordered By: Dr. Betancur on 11-13-2022 Albumin [Mass/Vol] 2.8 g/dL 3.2-5.[address] [facility] Serum or plasma calcium karri urement (mass/volume)Ordered By: Dr. Betancur on 11-13-2022 Calcium [Mass/Vol] 8.3 mg/dL 8.5-10.[address] [facility] Serum or plasma creatinine m easurement (mass/volume)Ordered By: Dr. Betancur on 11-13-2022 Creatinine [Mass/Vol] 0.70 mg/dL 0.55-1.02 [facility] Comment on above: The validity of the calculated GFR & GFRAA in patients over 70 years has not been determined. Clinical correlation is essential. Serum or plasma ferritin jolanta surement (mass/volume)Ordered By: Dr. Betancur on 11-13-2022 Ferritin [Mass/Vol] 195 ng/mL 8-252 [facility] Serum or plasma urea nitroge n measurement (mass/volume)Ordered By: Dr. Betancur on 11-13-2022 Urea nitrogen [Mass/Vol] 12 mg/dL 7-18 [facility] Thin prep Papanicolaou smear with manual screeningOrdered By: Dr. Betancur on 11-13-2022 Thin prep Papanicolaou smear with manual screening 16 U/L 15-37 [facility] Thin prep Papanicolaou smear with manual screening 3 5-15 [facility] Glucose Glucometer (BldC) [M ass/Vol]Ordered By: Dr. Brody on 11-12-2022 Glucose [Mass/Vol] 121 mg/dL 74-[address] [facility] Comment on above: MANAGEMENT OF PATIEN T CARE PER NURSING PROTOCOL No Panel InformationOrdered By: Dr. Brody on 11-12-2022 Vitamin D 25-Hydroxy 43.8 ng/mL [facility] Comment on above: Vitamin D 25(OH) Sta tus Range Deficiency <20 ng/mL (50nmol/L) Insufficiency 20 - 30 ng/mL (50 - 75 nmol/L) Sufficiency 30 - 100 ng/mL (75 - 250 nmol/L) Toxicity >100 ng/mL (>250 nmol/L) Serum or plasma cortisol jolanta surement (mass/volume)Ordered By: Dr. Brody on 11-12-2022 Cortisol [Mass/Vol] 28.20 ug/dL 3.44-22.45 [facility] Comment on above: Adult (AM) 5.27 - 22 .45 ug/dL Adult (PM) 3.44 - 16.76 ug/dLPlease note revised CORTISOL reference range effective 2019. Whole blood hemoglobin A1c/t otal hemoglobin ratio (mass fraction)Ordered By: Dr. Betancur on 11-12-2022 HbA1c (Bld) [Mass fraction] 7.0 % 3.8-5.6 [facility] Comment on above: Normal < 5.7 % Predi abetic 5.7 - 6.4 % Diabetic >or= 6.5 % Please note range changes. Absolute lymphocyte countOrd ered By: Dr. Ewing on 11-11-2022 Lymphocytes Auto (Unsp spec) [#/Vol] 4.35 10*3/uL 0.83-4.51 [facility] Basophil percentageOrdered B y: Dr. Ewing on 11-11-2022 Basophil percentage 0 SEEN /hpf 0-5 [facility] Ammonia (P) [Moles/Vol] 16.0 umol/L 11-32 [facility] Basophils/100 WBC (Bld) 0.6 % 0-1 [facility] Bilirubin [Mass/Vol] 1.90 mg/dL 0.20-1.00 [facility] Comment on above: For patients on eltr ombopag therapy, use of Dimension [place] TBIL is not recommended. Chloride [Moles/Vol] 91 mmol/L 98-107 [facility] Eosinophils/100 WBC (Bld) 0.9 % 0-5 [facility] Glucose [Mass/Vol] 159 mg/dL 74-[address] [facility] Comment on above: Fasting Glucose resu lt greater than or equal to 126 mg/dL suggests DIABETES MELLITUS per A.D.A. criteria. Neutrophils (Bld) [#/Vol] 8.3 10*3/uL 2.0-7.7 [facility] Neutrophils/100 WBC (Bld) 59.4 % 47-70 [facility] Potassium [Moles/Vol] 3.4 mmol/L 3.5-5.1 [facility] Protein [Mass/Vol] 7.4 g/dL 6.4-8.[address] [facility] Sodium [Moles/Vol] 127 mmol/L 136-[address] [facility] WBC (Bld) [#/Vol] 13.9 10*3/uL 4.4-11.0 [facility] Bilirubin Test strip Ql (U)O rdered By: Dr. Ewing on 11-11-2022 Bilirubin Ql (U) Negative Negative [facility] Blood erythrocytes count (nu mber/volume)Ordered By: Dr. Ewing on 11-11-2022 RBC (Bld) [#/Vol] 4.23 10*6/uL 4.2-5.4 [facility] Blood hemoglobin measurement (mass/volume)Ordered By: Dr. Ewing on 11-11-2022 Hemoglobin (Bld) [Mass/Vol] 13.5 g/dL 12.0-15.0 [facility] Blood lymphocytes/100 leukoc ytesOrdered By: Dr. Ewing on 11-11-2022 Lymphocytes/100 WBC (Bld) 31.3 % 19-41 [facility] Blood monocytes/100 leukocyt esOrdered By: Dr. Ewing on 11-11-2022 Monocytes/100 WBC (Bld) 7.4 % 0-10 [facility] Blood platelet mean volumeOr dered By: Dr. Ewing on 11-11-2022 Platelet mean volume (Bld) [Entitic vol] 8.8 fL 6.2-12.0 [facility] Determination of erythrocyte mean corpuscular volume (MCV)Ordered By: Dr. Ewing on 11-11-2022 MCV (RBC) [Entitic vol] 88.7 fL 81-99 [facility] Direct bilirubinOrdered By: Dr. Ewing on 11-11-2022 Bilirubin.direct [Mass/Vol] 0.47 mg/dL 0.00-0.30 [facility] Hematocrit Auto (Bld) [Volum e fraction]Ordered By: Dr. Ewing on 11-11-2022 Hematocrit (Bld) [Volume fraction] 37.5 % 37-47 [facility] Ketones Test strip Ql (U)Ord ered By: Dr. Ewing on 11-11-2022 Ketones Ql (U) 5 mg/dl Negative [facility] Laboratory - Chemistry and C hemistry - challengeOrdered By: Dr. Brody on 11-11-2022 Sodium (U) [Moles/Vol] 8 mmol/L Not Establ. [facility] Magnesium [Mass/Vol] 1.6 mg/dL 1.6-2.6 [facility] Laboratory - Chemistry and C hemistry - challengeOrdered By: Dr. Ewing on 11-11-2022 ALP [Catalytic activity/Vol] 45 U/L 45-117 [facility] ALT [Catalytic activity/Vol] 30 U/L 13-56 [facility] CO2 [Moles/Vol] 28.0 mmol/L 21.0-32.0 [facility] Globulin (S) [Mass/Vol] 3.5 g/dL 2.2-4.2 [facility] Urea nitrogen/Creatinine [Mass ratio] 16.2 mg/mg 10-20 [facility] Laboratory - Hematology and Cell countsOrdered By: Dr. Ewing on 11-11-2022 Erythrocyte distribution width (RBC) [Entitic vol] 39.2 fL 35.1-43.9 [facility] Erythrocyte distribution width (RBC) [Ratio] 12.0 % 11.6-14.6 [facility] Immature granulocytes/100 WBC (Bld) 0.400 % 0.0-0.9 [facility] Comment on above: IG% - Immature Granu locytes (promyelocytes, myelocytes and metamyelocytes) > 1% indicates that a LEFT SHIFT is Present. MCH (RBC) [Entitic mass] 31.9 pg 27.0-32.0 [facility] Nucleated RBC/100 WBC (Bld) [Ratio] 0 % 0-5 [facility] MCHC Auto (RBC) [Mass/Vol]Or dered By: Dr. Ewing on 11-11-2022 MCHC (RBC) [Mass/Vol] 36.0 g/dL 32-36 [facility] Mucus LM Ql (Urine sed)Order ed By: Dr. Ewing on 11-11-2022 Mucus Ql (Urine sed) 0 SEEN /hpf [facility] Nitrite Test strip Ql (U)Ord ered By: Dr. Ewing on 11-11-2022 Nitrite Ql (U) Negative Negative [facility] No Panel InformationOrdered By: Dr. Ewing on 11-11-2022 Estimated Creatinine Clearance Calc 27.90 ml/min [facility] Estimated GFR (MDRD) Amer 50 mL/min >60 [facility] Comment on above: GFR Calc Estimated GFR (MDRD) Non-Af Amer 41 mL/min >60 [facility] Comment on above: Non- GFR Calc Troponin I High Sensitivity 13 pg/mL 3.0-54.0 [facility] Comment on above: Please Note: New Denia t Units and Gender Specific Reference Ranges. For more information see Policy Stat Procedure [facility] High Sensitivity Troponin (TNIH) and attachments. Platelets bldOrdered By: Dr. Ewing on 11-11-2022 Platelets (Bld) [#/Vol] 506 10*3/uL 150-450 [facility] Protein Test strip Ql (U)Ord ered By: Dr. Ewing on 11-11-2022 Protein Ql (U) Negative Negative [facility] Serum or plasma albumin karri urement (mass/volume)Ordered By: Dr. Ewing on 11-11-2022 Albumin [Mass/Vol] 3.9 g/dL 3.2-5.[address] [facility] Serum or plasma calcium karri urement (mass/volume)Ordered By: Dr. Ewing on 11-11-2022 Calcium [Mass/Vol] 9.9 mg/dL 8.5-10.[address] [facility] Serum or plasma creatinine m easurement (mass/volume)Ordered By: Dr. Ewing on 11-11-2022 Creatinine [Mass/Vol] 1.30 mg/dL 0.55-1.02 [facility] Comment on above: The validity of the calculated GFR & GFRAA in patients over 70 years has not been determined. Clinical correlation is essential. Serum or plasma urea nitroge n measurement (mass/volume)Ordered By: Dr. Ewing on 11-11-2022 Urea nitrogen [Mass/Vol] 21 mg/dL 7-18 [facility] Serum or plasma uric acid me asurement (mass/volume)Ordered By: Dr. Brody on 11-11-2022 Urate [Mass/Vol] 4.3 mg/dL 2.6-6.0 [facility] Comment on above: The drugs N-Acetylcy steine and Metamizole may falsely depress this assay. Squamous epithelial cells de tection in urine sediment by light microscopyOrdered By: Dr. Ewing on 11-11-2022 Epithelial cells.squamous LM Ql (Urine sed) 0 SEEN /hpf 5-10 [facility] Thin prep Papanicolaou smear with manual screeningOrdered By: Dr. Brody on 11-11-2022 Thin prep Papanicolaou smear with manual screening 277 mOsm/KG 280-301 [facility] Thin prep Papanicolaou smear with manual screeningOrdered By: Dr. Ewing on 11-11-2022 Thin prep Papanicolaou smear with manual screening 25 U/L 15-37 [facility] Thin prep Papanicolaou smear with manual screening 8 5-15 [facility] Urine blood detectionOrdered By: Dr. Ewing on 11-11-2022 RBC Ql (U) Negative Negative [facility] RBC Ql (U) 0 SEEN /hpf 0-5 [facility] Urine clarityOrdered By: Dr. Ewing on 11-11-2022 Clarity (U) Clear Clear [facility] Urine color determinationOrd ered By: Dr. Ewing on 11-11-2022 Color (U) Yellow Yellow [facility] Urine glucose detectionOrder ed By: Dr. Ewing on 11-11-2022 Glucose Ql (U) Normal mg/dl Normal [facility] Urine leukocyte esterase det ection by dipstickOrdered By: Dr. Ewing on 11-11-2022 Leukocyte esterase Test strip Ql (U) Negative Negative [facility] Urine osmolality measurement Ordered By: Dr. Brody on 11-11-2022 Osmolality (U) [Osmolality] 227 mOsm/KG >50 [facility] Comment on above: Normal Urine Referen ce Ranges Random: 50 - 1200 mOsm/kg H20 depending on fluid intake Random: >850 mOsm/kg after 12 hour fluid restriction 24 hour: ~300 - 900 mOsm/kg H2O Urine pHOrdered By: Dr. Atiya bender on 11-11-2022 pH (U) 6.0 [pH] 5.0 - 8.0 [facility] Urine sediment bacteria coun t by microscopy (number/high power field)Ordered By: Dr. Ewing on 11-11-2022 Bacteria LM.HPF (Urine sed) [#/Area] 0 /[HPF] None Seen [facility] Urine specific gravity measu rementOrdered By: Dr. Ewing on 11-11-2022 Specific gravity (U) [Rel density] 1.010 1.002-1.030 [facility] Urobilinogen Auto test strip Ql (U)Ordered By: Dr. Ewing on 11-11-2022 Urobilinogen Ql (U) Normal mg/dl Normal [facility] Vital Signs Date Time Vital Sign Value Performing Clinician Faci lity 11-04-2024 03:00-0400 Respiratory rate 16 /min Dr. Pete Payne MD Work Phone: [facility] 11-04-2024 00:21-0400 Body temperature 98.2 [degF] Dr. Pete Payne MD Work Phone: [facility] 11-04-2024 00:21-0400 Diastolic blood pressure 60 mm[Hg] Dr. Pete Payne MD Work Phone: [facility] 11-04-2024 00:21-0400 Heart rate 84 /min Dr. Pete Payne MD Work Phone: [facility] 11-04-2024 00:21-0400 SaO2% (BldA) [Mass fraction] 97 % Dr. Pete Payne MD Work Phone: [facility] 11-04-2024 00:21-0400 Systolic blood pressure 143 mm[Hg] Dr. Pete Payne MD Work Phone: [facility] 11-03-2024 21:08-0400 Body height 147.[address] Pete Payne MD Work Phone: [facility] 11-03-2024 21:08-0400 Body mass index (BMI) [Ratio] 29.4 kg/m2 Dr. Pete Payne MD Work Phone: [facility] 11-03-2024 21:08-0400 Body weight 63.[address] Pete Payne MD Work Phone: [facility] 07-25-2023 13:00-0500 Body temperature 97.7 [degF] Dr. Pete Payne Work Phone: [facility] 07-25-2023 13:00-0500 Diastolic blood pressure 74 mm[Hg] Dr. Pete Payne Work Phone: [facility] 07-25-2023 13:00-0500 Heart rate 86 /min Dr. Pete Payne Work Phone: [facility] 07-25-2023 13:00-0500 Respiratory rate 16 /min Dr. Pete Payne Work Phone: [facility] 07-25-2023 13:00-0500 SaO2% (BldA) [Mass fraction] 98 % Dr. Pete Payne Work Phone: [facility] 07-25-2023 13:00-0500 Systolic blood pressure 136 mm[Hg] Dr. Pete Payne Work Phone: [facility] 07-25-2023 08:00-0500 Body height 147.[address] Pete Payne Work Phone: [facility] 07-25-2023 08:00-0500 Body mass index (BMI) [Ratio] 29.2 kg/m2 Dr. Pete Payne Work Phone: [facility] 07-25-2023 08:00-0500 Body weight 63.[address] Pete Payne Work Phone: [facility] 01-20-2023 03:50-0400 Diastolic blood pressure 61 mm[Hg] Dr. Nancy Ewing Work Phone: [facility] 01-20-2023 03:50-0400 Heart rate 78 /min Dr. Nancy Ewing Work Phone: [facility] 01-20-2023 03:50-0400 Respiratory rate 18 /min Dr. Nancy Ewing Work Phone: [facility] 01-20-2023 03:50-0400 SaO2% (BldA) [Mass fraction] 97 % Dr. Nancy Ewing Work Phone: [facility] 01-20-2023 03:50-0400 Systolic blood pressure 146 mm[Hg] Dr. Nancy Ewing Work Phone: 5(794)186-106125 [place] [address] 01-20-2023 02:01-0400 Body height 147.[address] Nancy Ewing Work Phone: [facility] 01-20-2023 02:01-0400 Body mass index (BMI) [Ratio] 26.9 kg/m2 Dr. Nancy Ewing Work Phone: [facility] 01-20-2023 02:01-0400 Body temperature 97.5 [degF] Dr. Nancy Ewing Work Phone: [facility] 01-20-2023 02:01-0400 Body weight 58.[address] Nancy Ewing Work Phone: [facility] 11-29-2022 09:42-0400 Heart rate 92 /min Dr. Nancy Ewing Work Phone: [facility] 11-29-2022 09:42-0400 Respiratory rate 16 /min Dr. Nancy Ewing Work Phone: [facility] 11-29-2022 09:42-0400 SaO2% (BldA) [Mass fraction] 97 % Dr. Nancy Ewing Work Phone: [facility] 11-29-2022 09:41-0400 Body temperature 97.6 [degF] Dr. Nancy Ewing Work Phone: [facility] 11-29-2022 09:41-0400 Diastolic blood pressure 59 mm[Hg] Dr. Nancy Ewing Work Phone: [facility] 11-29-2022 09:41-0400 Systolic blood pressure 144 mm[Hg] Dr. Nancy Ewing Work Phone: [facility] 11-28-2022 13:27-0400 Body temperature 97.1 [degF] Dr. Nancy Ewing Work Phone: [facility] 11-28-2022 13:27-0400 Diastolic blood pressure 61 mm[Hg] Dr. Nancy Ewing Work Phone: [facility] 11-28-2022 13:27-0400 Heart rate 65 /min Dr. Nancy Ewing Work Phone: [facility] 11-28-2022 13:27-0400 Respiratory rate 16 /min Dr. Nancy Ewing Work Phone: [facility] 11-28-2022 13:27-0400 SaO2% (BldA) [Mass fraction] 95 % Dr. Nancy Ewing Work Phone: 9(431)952-845757 [place] [address] 11-28-2022 13:27-0400 Systolic blood pressure 133 mm[Hg] Dr. Nancy Ewing Work Phone: 1(346)512-451357 [place] [address] 11-26-2022 14:37-0400 Body height 147.[address] Nancy Ewing Work Phone: 8(583)141-192597 [address] 11-26-2022 14:37-0400 Body weight 54.[address] Nancy Ewing Work Phone: 7(457)903-684757 [place] [address] 11-25-2022 12:48-0400 Body mass index (BMI) [Ratio] 25 kg/m2 Dr. Nancy Ewing Work Phone: 4(044)252-611557 [place] [address] 11-13-2022 14:35-0400 Body temperature 98 [degF] Dr. Nancy Ewing Work Phone: 5(228)103-442557 [place] [address] 11-13-2022 14:35-0400 Diastolic blood pressure 48 mm[Hg] Dr. Nancy Ewing Work Phone: 4(294)126-902057 [place] [address] 11-13-2022 14:35-0400 Heart rate 71 /min Dr. Nancy Ewing Work Phone: [facility] 11-13-2022 14:35-0400 Respiratory rate 18 /min Dr. Nancy Ewing Work Phone: [facility] 11-13-2022 14:35-0400 SaO2% (BldA) [Mass fraction] 100 % Dr. Nancy Ewing Work Phone: 8(976)252-378457 [place] [address] 11-13-2022 14:35-0400 Systolic blood pressure 123 mm[Hg] Dr. Nancy Ewing Work Phone: 0(165)949-625347 [place] [address] 11-12-2022 12:32-0400 Body height 147.[address] Nancy Ewing Work Phone: 1(278)609-778147 [place] [address] 11-12-2022 12:32-0400 Body weight 55.[address] Nancy Ewing Work Phone: 3(155)224-129547 [place] [address] 11-11-2022 22:57-0400 Body mass index (BMI) [Ratio] 25.5 kg/m2 Dr. Nancy Ewing Work Phone: 8(553)047-297947 [place] [address] 11-11-2022 21:44-0400 Body temperature 97.8 [degF] Dr. Nancy Ewing Work Phone: 6(466)789-516247 [place] [address] 11-11-2022 21:44-0400 Diastolic blood pressure 60 mm[Hg] Dr. Nancy Ewing Work Phone: 1(620)647-704347 [place] [address] 11-11-2022 21:44-0400 Heart rate 75 /min Dr. Nancy Ewing Work Phone: 8(351)850-242847 [place] [address] 11-11-2022 21:44-0400 Respiratory rate 17 /min Dr. Nancy Ewing Work Phone: 6(807)598-652447 [place] [address] 11-11-2022 21:44-0400 SaO2% (BldA) [Mass fraction] 100 % Dr. Nancy Ewing Work Phone: 8(912)742-158147 [place] [address] 11-11-2022 21:44-0400 Systolic blood pressure 134 mm[Hg] Dr. Nancy Ewing Work Phone: 5(892)790-524947 [place] [address] 11-11-2022 16:37-0400 Body height 147.[address] Nancy Ewing Work Phone: 1(865)365-549147 [place] [address] 11-11-2022 16:37-0400 Body mass index (BMI) [Ratio] 26.2 kg/m2 Dr. Nancy Ewing Work Phone: [facility] 11-11-2022 16:37-0400 Body weight 56.[address] Nancy Ewing Work Phone: [facility] Encounters Encounter Date Encounter Type Care Provider Facility Start: 12-26-2024 ambulatory Pete ROBERTS Fa cility:[facility] Start: 12-26-2024 Registered Referred Pete Virk Start: 12-13-2024 End: 12-13-[address] Pete Payne MD Work Phone: [facility] Work Phone: Start: 12-13-2024 End: 12-13-2024 Departed Referred Pete Virk Start: 12-13-2024 Registered Referred Pete Virk Start: 12-13-2024 End: 12-13-2024 ambulatory Pete Payne Facility:[facility] Start: 11-22-2024 End: 11-22-[address] Pete Payne MD Work Phone: [facility] Work Phone: Start: 11-22-2024 End: 11-22-2024 Departed Referred Pete Virk Start: 11-22-2024 Registered Referred Pete Virk Start: 11-22-2024 End: 11-22-2024 ambulatory Pete ROBERTS Facility:[facility] Start: 11-14-2024 End: 11-14-[address] Pete Payne MD Work Phone: [facility] Work Phone: Start: 11-14-2024 End: 11-14-2024 Departed Referred Pete Virk Start: 11-14-2024 End: 11-14-2024 ambulatory Pete ROBERTS Facility:[facility] Start: 11-03-2024 End: 11-04-2024 Emergency department patient visit Dr. Pete Payne MD Work Phone: -Emergency Department Work Phone: Start: 10-21-2024 End: 10-21-2024 ambulatory Pete Payne [facility] Start: 10-21-2024 End: 10-21-2024 Patient encounter procedure Poppy Cadenanickie CONCRETE CONVEYOR OPERATORJavier -[facility] Work Phone: Start: 10-17-2024 End: 10-17-[address] ePte Payne MD Work Phone: [facility] Work Phone: Start: 10-17-2024 End: 10-17-2024 Departed Referred Pete Virk Start: 10-17-2024 Registered Referred Pete Virk Start: 10-17-2024 End: 10-17-2024 ambulatory Pete ROBERTS Facility:[facility] Start: 10-10-2024 End: 10-10-[address] Pete Payne MD Work Phone: [facility] Work Phone: Start: 10-10-2024 End: 10-10-2024 Departed Referred Pete Virk Start: 10-10-2024 Registered Referred Pete Virk Start: 10-10-2024 End: 10-10-2024 ambulatory Pete ROBERTS Facility:[facility] Start: 10-06-2024 End: 10-06-[address] Pete Payne MD Work Phone: [facility] Work Phone: Start: 10-06-2024 End: 10-06-2024 Departed Referred Pete Virk Start: 10-06-2024 Registered Referred Pete Virk Start: 10-06-2024 End: 10-06-2024 ambulatory Pete ROBERTS Facility:[facility] Start: 10-03-2024 End: 10-03-[address] Pete Payne MD Work Phone: [facility] Work Phone: Start: 10-03-2024 End: 10-03-2024 Departed Referred Pete Virk Start: 10-03-2024 End: 10-03-2024 ambulatory Pete ROBERTS Facility:[facility] Start: 09-20-2024 End: 09-20-2024 ambulatory Celestealexisanne Payne Facility:[facility] Start: 09-20-2024 End: 09-20-[address] Pete Payne MD -[facility] Work Phone: Start: 09-01-2024 End: 09-01-2024 ambulatory Celestegeena Payne Facility:[facility] Start: 09-01-2024 End: 09-01-2024 Patient encounter procedure Mateo CRANDALL [facility] Work Phone: Start: 08-23-2024 ambulatory Pete ROBERTS Fa cility:[facility] Start: 08-23-2024 Registered Referred Pete Virk Start: 07-11-2024 End: 07-11-2024 Departed Referred Pete Virk Start: 07-11-2024 End: 07-11-2024 ambulatory Pete ROBERTS Facility:[facility] Start: 06-21-2024 End: 06-21-2024 ambulatory Poppy Mccracken NP Facility:[facility] Start: 06-21-2024 End: 06-21-2024 [facility] Start: 05-31-2024 End: 05-31-2024 ambulatory Efewongbe Oleghe Facility:[facility] Start: 05-30-2024 End: 05-30-2024 ambulatory Efewongbe Oleghe OLS Facility:[facility] Start: 05-24-2024 End: 05-24-2024 ambulatory Efewongbe Oleghe OLS Facility:[facility] Start: 05-03-2024 End: 05-03-2024 ambulatory Poppy Mccracken CONCRETE CONVEYOR OPERATOR Facility:[facility] Start: 04-18-2024 End: 04-18-2024 ambulatory Efewongbe Oleghe OLS Facility:[facility] Start: 03-22-2024 End: 03-22-2024 ambulatory Efewongbe Oleghe Facility:[facility] Start: 03-07-2024 End: 03-07-2024 ambulatory Efewongbe Oleghe OLS Facility:[facility] Start: 03-03-2024 End: 03-03-2024 ambulatory Efewongbe Oleghe Facility:[facility] Start: 02-25-2024 End: 02-25-2024 ambulatory Efewongbe Oleghe Facility:[facility] Start: 02-23-2024 End: 02-23-2024 ambulatory Efewongbe Oleghe OLS Facility:[facility] Start: 02-17-2024 End: 02-17-2024 ambulatory Efewongbe Oleghe Facility:[facility] Start: 01-26-2024 End: 01-26-2024 ambulatory Efewongbe Oleghe Facility:[facility] Start: 01-25-2024 End: 01-25-2024 ambulatory Efewongbe Oleghe OLS Facility:[facility] Start: 01-08-2024 End: 01-08-2024 ambulatory Efewongbe Oleghe Facility:[facility] Start: 08-25-2023 End: 08-25-[address] Pete Payne Work Phone: [facility] Work Phone: Start: 08-25-2023 End: 08-25-[address] Pete Payne Work Phone: [facility] Start: 07-25-2023 End: 07-25-2023 Emergency department patient visit Dr. Pete Payne Work Phone: [facility]-Emergency Department Work Phone: Start: 07-02-2023 End: 07-02-[address] Pete Payne Work Phone: [facility] Work Phone: Start: 06-02-2023 End: 06-02-[address] Pete Payne Work Phone: [facility] Work Phone: Start: 05-04-2023 End: 05-04-[address] Pete Payne Work Phone: [facility] Work Phone: Start: 03-31-2023 End: 03-31-[address] Pete Payne Work Phone: [facility] Work Phone: Start: 03-16-2023 End: 03-16-[address] Pete Payne Work Phone: [facility] Work Phone: Start: 03-16-2023 End: 03-16-[address] Pete Payne Work Phone: [facility] Start: 03-16-[address] Madison Payne Work Phone: [facility] Start: 03-14-2023 End: 03-14-[address] Pete Payne Work Phone: [facility] Work Phone: Start: 03-12-2023 End: 03-12-[address] Pete Payne Work Phone: [facility] Work Phone: Start: 03-12-2023 End: 03-12-[address] Pete Payne Work Phone: [facility] Start: 01-27-2023 End: 01-27-[address] Pete Payne Work Phone: [facility] Work Phone: Start: 01-20-2023 End: 01-20-2023 Emergency department patient visit Dr. Nancy Ewing Work Phone: [facility]-Emergency Department Work Phone: Start: 12-23-2022 End: 12-23-[address] Pete Payne Work Phone: [facility] Work Phone: Start: 12-02-2022 End: 12-02-[address] Nancy Ewing Work Phone: [facility] Work Phone: Start: 12-01-2022 End: 12-01-[address] Nancy Ewing Work Phone: [facility] Work Phone: Start: 12-01-2022 End: 12-01-[address] Nancy Ewing Work Phone: [facility] Start: 11-24-2022 End: 11-24-[address] Nancy Ewing Work Phone: [facility] Work Phone: Start: 11-24-2022 End: 11-24-[address] Nancy Ewing Work Phone: [facility] Start: 11-13-2022 End: 11-29-2022 Evaluation and management of inpatient Dr. Nancy Ewing Work Phone: [facility]-Transitional Care Unit Start: 11-13-2022 Non-patient / Non-visit Dr. Christophe Ewing Work Phone: [facility] Start: 11-12-2022 Non-patient / Non-visit Dr. Christophe Ewing Work Phone: [facility] Start: 11-11-2022 Non-patient / Non-visit Dr. Christophe Ewing Work Phone: [facility] Start: 11-11-2022 End: 11-13-2022 Evaluation and management of inpatient Dr. Nancy Ewing Work Phone: [facility]-Medical Surgical 3 Procedures Date Procedure Procedure Detail Performing Clinician Start: 11-03-2024 CT cervical spine wi thout contrast Dr. Pete Payne MD Work Phone: Start: 11-03-[address] Madison Payne MD Work Phone: Start: 11-03-2024 CT of head without contrast Dr. Pete Payne MD Work Phone: Start: 11-03-2024 Plain X-ray of shoulder Dr. Pete Payne MD Work Phone: Start: 08-23-2024 Measurement of renal function Dr. Pete Payne MD Work Phone: Comment on above: GFR Calc Start: 07-25-2023 MRI of lower extremity Dr. [...] Date Care Activity Detail Author Start: 11-04-2024 [facility] Start: 11-03-2024 Simple repair f/e/e/ n/l/m 2.6cm-5.0 cm RPR F/E/E/N/L/M 2.6-5.0 CM [facility] Start: 07-25-2023 [facility] Start: 01-02-2023 Blood chemistry [facility] Start: 12-26-2022 Blood chemistry [facility] Start: 12-19-2022 Blood chemistry [facility] Start: 12-12-2022 Blood chemistry [facility] Start: 12-05-2022 Blood chemistry [facility] Start: 11-29-2022 Patient discharge [facility] Start: 11-28-2022 Development of care plan [facility] Start: 11-20-2022 [facility] Start: 11-20-2022 [facility] Start: 11-19-2022 Palliative care [facility] Start: 11-19-2022 [facility] Start: 11-18-2022 [facility] Start: 11-17-2022 [facility] Start: 11-16-2022 [facility] Start: 11-15-2022 [facility] Start: 11-14-2022 Developing a treatment plan [facility] Start: 11-14-2022 Speech therapy management [facility] Start: 11-14-2022 Development of care plan [facility] Start: 11-14-2022 End: 11-14-2022 [facility] Start: 11-13-2022 Patient referral to dietitian [facility] Start: 11-13-2022 Speech therapy assessment [facility] Start: 11-13-2022 Following clinical p athway protocol [facility] Start: 11-13-2022 Admission procedure [facility] Start: 11-13-2022 Measuring intake and output [facility] Start: 11-13-2022 Patient referral to dietitian [facility] Start: 11-13-2022 Referral to occupati onal therapist [facility] Start: 11-13-2022 Referral to service [facility] Start: 11-13-2022 Verification routine [facility] Start: 11-13-2022 Vital signs measurements [facility] Start: 11-13-2022 [facility] Start: 11-13-2022 Patient discharge [facility] Start: 11-12-2022 Vitamin D, 25-hydrox y measurement [facility] Start: 11-12-2022 [facility] Start: 11-12-2022 Patient referral to dietitian [facility] Start: 11-11-2022 Blood chemistry [facility] Start: 11-11-2022 Following clinical p athway protocol [facility] Start: 11-11-2022 Assessment of risk o f venous thromboembolism [facility] Start: 11-11-2022 Insertion of cathete r into peripheral vein [facility] Start: 11-11-2022 Oxygen therapy [facility] Start: 11-11-2022 Providing care accor ding to standard [facility] Start: 11-11-2022 Provision of activit y privileges [facility] Start: 11-11-2022 Referral to occupati onal therapist [facility] Start: 11-11-2022 Referral to service [facility] Start: 11-11-2022 [facility] Start: 11-11-2022 Verification routine [facility] Start: 11-11-2022 Admission procedure [facility] Start: 11-11-2022 Patient referral to dietitian [facility] Alanine aminotransfe rase [Enzymatic activity/volume] in Serum or Plasma [facility] Albumin [Mass/volume ] in Serum or Plasma [facility] Alkaline phosphatase [Enzymatic activity/volume] in Serum or Plasma [facility] Anion gap measurement [facility] Anion gap measurement [facility] Anion gap measurement [facility] Anion gap measurement [facility] Anion gap measurement [facility] Anion gap measurement [facility] Aspartate aminotrans ferase [Enzymatic activity/volume] in Serum or Plasma [facility] Bilirubin, total measurement [facility] Bilirubin.direct [Mass/volume] in Serum or Plasma [facility] BUN/Creatinine ratio [facility] BUN/Creatinine ratio [facility] BUN/Creatinine ratio [facility] BUN/Creatinine ratio [facility] BUN/Creatinine ratio [facility] BUN/Creatinine ratio [facility] Calcium [Mass/volume ] in Serum or Plasma [facility] Calcium [Mass/volume ] in Serum or Plasma [facility] Calcium [Mass/volume ] in Serum or Plasma [facility] Calcium [Mass/volume ] in Serum or Plasma [facility] Calcium [Mass/volume ] in Serum or Plasma [facility] Calcium [Mass/volume ] in Serum or Plasma [facility] Carbon dioxide, tota l [Moles/volume] in Serum or Plasma [facility] Carbon dioxide, tota l [Moles/volume] in Serum or Plasma [facility] Carbon dioxide, tota l [Moles/volume] in Serum or Plasma [facility] Carbon dioxide, tota l [Moles/volume] in Serum or Plasma [facility] Carbon dioxide, tota l [Moles/volume] in Serum or Plasma [facility] Carbon dioxide, tota l [Moles/volume] in Serum or Plasma [facility] Chloride [Moles/volu me] in Serum or Plasma [facility] Chloride [Moles/volu me] in Serum or Plasma [facility] Chloride [Moles/volu me] in Serum or Plasma [facility] Chloride [Moles/volu me] in Serum or Plasma [facility] Chloride [Moles/volu me] in Serum or Plasma [facility] Chloride [Moles/volu me] in Serum or Plasma [facility] Cortisol [Mass/volum e] in Serum or Plasma [facility] Creatinine [Moles/vo lume] in Serum or Plasma [facility] Creatinine [Moles/vo lume] in Serum or Plasma [facility] Creatinine [Moles/vo lume] in Serum or Plasma [facility] Creatinine [Moles/vo lume] in Serum or Plasma [facility] Creatinine [Moles/vo lume] in Serum or Plasma [facility] Creatinine [Moles/vo lume] in Serum or Plasma [facility] Glucose [Mass/volume ] in Serum or Plasma [facility] Glucose [Mass/volume ] in Serum or Plasma [facility] Glucose [Mass/volume ] in Serum or Plasma [facility] Glucose [Mass/volume ] in Serum or Plasma [facility] Glucose [Mass/volume ] in Serum or Plasma [facility] Glucose [Mass/volume ] in Serum or Plasma [facility] Hematocrit [Volume F raction] of Blood [facility] Hematocrit [Volume F raction] of Blood [facility] Hematocrit [Volume F raction] of Blood [facility] Hematocrit [Volume F raction] of Blood [facility] Hematocrit [Volume F raction] of Blood [facility] Hematocrit [Volume F raction] of Blood [facility] Hemoglobin [Mass/vol ume] in Blood [facility] Hemoglobin [Mass/vol ume] in Blood [facility] Hemoglobin [Mass/vol ume] in Blood [facility] Hemoglobin [Mass/vol ume] in Blood [facility] Hemoglobin [Mass/vol ume] in Blood [facility] Hemoglobin [Mass/vol ume] in Blood [facility] Leukocytes [#/volume ] in Blood [facility] Leukocytes [#/volume ] in Blood [facility] Leukocytes [#/volume ] in Blood [facility] Leukocytes [#/volume ] in Blood [facility] Leukocytes [#/volume ] in Blood [facility] Leukocytes [#/volume ] in Blood [facility] Magnesium [Mass/volu me] in Serum or Plasma [facility] Mean corpuscular hem oglobin concentration determination [facility] Mean corpuscular hem oglobin concentration determination [facility] Mean corpuscular hem oglobin concentration determination [facility] Mean corpuscular hem oglobin concentration determination [facility] Mean corpuscular hem oglobin concentration determination [facility] Mean corpuscular hem oglobin concentration determination [facility] Mean corpuscular hem oglobin determination [facility] Mean corpuscular hem oglobin determination [facility] Mean corpuscular hem oglobin determination [facility] Mean corpuscular hem oglobin determination [facility] Mean corpuscular hem oglobin determination [facility] Mean corpuscular hem oglobin determination [facility] Measurement of renal function [facility] Measurement of renal function [facility] Measurement of renal function [facility] Measurement of renal function [facility] Measurement of renal function [facility] Measurement of renal function [facility] Neutrophil count [facility] Neutrophil count [facility] Neutrophil count [facility] Neutrophil count [facility] Neutrophil count [facility] Neutrophil count [facility] Neutrophil percent differential count [facility] Neutrophil percent differential count [facility] Neutrophil percent differential count [facility] Neutrophil percent differential count [facility] Neutrophil percent differential count [facility] Neutrophil percent differential count [facility] Patient Education [facility] Work Phone: Patient referral [facility] Work Phone: Platelets [#/volume] in Blood [facility] Platelets [#/volume] in Blood [facility] Platelets [#/volume] in Blood [facility] Platelets [#/volume] in Blood [facility] Platelets [#/volume] in Blood [facility] Platelets [#/volume] in Blood [facility] Potassium [Moles/vol ume] in Serum or Plasma [facility] Potassium [Moles/vol ume] in Serum or Plasma [facility] Potassium [Moles/vol ume] in Serum or Plasma [facility] Potassium [Moles/vol ume] in Serum or Plasma [facility] Potassium [Moles/vol ume] in Serum or Plasma [facility] Potassium [Moles/vol ume] in Serum or Plasma [facility] Red blood cell count [facility] Red blood cell count [facility] Red blood cell count [facility] Red blood cell count [facility] Red blood cell count [facility] Red blood cell count [facility] Red cell distributio n width determination [facility] Red cell distributio n width determination [facility] Red cell distributio n width determination [facility] Red cell distributio n width determination [facility] Red cell distributio n width determination [facility] Red cell distributio n width determination [facility] Sodium [Moles/volume ] in Serum or Plasma [facility] Sodium [Moles/volume ] in Serum or Plasma [facility] Sodium [Moles/volume ] in Serum or Plasma [facility] Sodium [Moles/volume ] in Serum or Plasma [facility] Sodium [Moles/volume ] in Serum or Plasma [facility] Sodium [Moles/volume ] in Serum or Plasma [facility] Total protein measurement [facility] Urate [Mass/volume] in Serum or Plasma [facility] Urea nitrogen [Mass/ volume] in Serum or Plasma [facility] Urea nitrogen [Mass/ volume] in Serum or Plasma [facility] Urea nitrogen [Mass/ volume] in Serum or Plasma [facility] Urea nitrogen [Mass/ volume] in Serum or Plasma [facility] Urea nitrogen [Mass/ volume] in Serum or Plasma [facility] Urea nitrogen [Mass/ volume] in Serum or Plasma [facility] Immunizations Immunization Date Immunization Notes Care Provider [facility] 07-03-2022 Covid Pfizer Bival[place] t Booster Dr. Nancy Ewing Work Phone: [facility] 06-06-2021 Covid (Pfizer) Dr. Nancy Ewing Work Phone: [facility] 08-16-2020 Covid (Pfizer) Dr. Nancy Ewing Work Phone: [facility] 07-26-2020 Covid (Pfizer) Dr. Nancy Ewing Work Phone: [facility] 07-20-2012 pneumococcal conjuga te vaccine, [address] Nancy Ewing Work Phone: [facility] 07-20-2001 pneumococcal vaccine , unspecified formulation Dr. Nancy Ewing Work Phone: [facility] Payers Date Payer Category Payer Medicaid [id number] 2024 Self-pay [id number] 2015 Private Health Insurance [id number] 2001 Medicare MEDICARE PART A B [id number] Unknown AARP MCR ADV [id number] Unknown [id number] 2.16.840.1.119552.3.579.2.462 Unknown [id number] 2.16.840.1.100849.3.579.2.462 Unknown [id number] 2.16.840.1.957369.3.579.2.462 Unknown [id number] 2.16.840.1.916600.3.579.2.462 Unknown [id number] 2.16.840.1.203833.3.579.2.462 Unknown [id number] 2.16.840.1.283671.3.579.2.462 Unknown [id number] 2.16.840.1.798662.3.579.2.462 Unknown [id number] 2.16.840.1.107752.3.579.2.462 Unknown [id number] 2.16.840.1.798335.3.579.2.462 Unknown [id number] 2.16.840.1.884624.3.579.2.462 Unknown [id number] 2.16.840.1.859715.3.579.2.462 Unknown [id number] 2.16.840.1.055074.3.579.2.462 Unknown [id number] 2.16.840.1.091188.3.579.2.462 Unknown [id number] 2.16.840.1.401944.3.579.2.462 Unknown [id number] 2.16.840.1.831107.3.579.2.462 Unknown [id number] 2.16.840.1.066419.3.579.2.462 Unknown [id number] 2.16840.1.403314.3.579.2.462 Unknown [id number] 2.16840.1.491683.3.579.2.462 Unknown [id number] 2.16840.1.868019.3.579.2.462 Unknown [id number] 2.840.1.317551.3.579.2.462 Unknown [id number] 2.840.1.077224.3.579.2.462 Unknown [id number] 2.840.1.639843.3.579.2.462 Unknown [id number] 2.840.1.107326.3.579.2.462 Unknown [id number] 2.16840.1.613158.3.579.2.462 Unknown [id number] 2.16840.1.000814.3.579.2.462 Unknown [id number] 2.840.1.196530.3.579.2.462 Unknown [id number] 2.840.1.014887.3.579.2.462 Unknown [id number] 2.840.1.098464.3.579.2.462 Unknown [id number] 2.840.1.083322.3.579.2.462 Social History Date Type Detail Facility Start: 11-11-2022 End: 07-25-2023 Tobacco smoking status AKIS Unknown if ever smoked [facility] Start: 11-11-2022 Rare [facility] Start: 11-11-2022 None [facility] Start: 11-11-2022 Homeless [facility] Start: 11-11-2022 Non-smoker [facility] Start: 1935 Sex Assigned At Female [facility] Start: 07-25-2023 End: 11-03-2024 Tobacco smoking status NHIS Never smoked tobacco (finding) [facility] Start: 10-19-2024 End: 11-08-2024 Sex Female (finding) [facility] Goals Date Patient Goal Desired Activity /State Functional Status Date Assessment Result Facility 11-29-2022 Functional status Ambulates [facility] Work Phone: 11-28-2022 Functional status Ambulates [facility] Work Phone: 11-13-2022 Functional status 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 [facility] Work Phone: Mental Status Date Assessment Result Facility 07-25-2023 Cognitive function Voice/Name [facility] Work Phone: 11-29-2022 Cognitive function Voice/Name [facility] Work Phone: 11-27-2022 Cognitive function Voice/Name [facility] Work Phone: 11-26-2022 Cognitive function Appropriate;Cooperativ e [facility] Work Phone: 11-13-2022 Cognitive function Voice/Name [facility] Work Phone: Clinical Notes 11-12-2022 to 11-04-2024 Note Date & Type Note Facility 11-04-2024 Discharge summary Note Date/Time November 04, 2024 12:36am [facility] Medical Records Department [address] [place] [address] Emergency Department Summary 11/03/24 MR#: [id number] Acct: [id number] Name: MAXIME AMARAL Rep #:[id number] : 1935 89 From: Alirio Patel PCP: Dr. Pete Payne MD Status:R EG ER Location: ED HPI HPI - Fall History of Present Illness Chief Complaint: Fall Informant: patient and family Narrative Narrative: Patient brought in by EMS from [facility] witnessed fall head injury. Patient history of dementia ambulatory per son. Mostly wheelchair, can weight-bear transfer. From paperwork gaited bowel with walking. Reports she did walk with a walker minimally a week ago. Reported getting off the commode she turneddown hitting her head on a radiator. No anticoagulants. She is DNR CC as of 2022 from paperwork. She has baseline per son. [facility] Medical History Dry eye syndrome of [...] x 500 mg) PO Q 6H PRN 05/10/23 Unknown Rx PRN Pain Score 1-10 #0 tabs donepezil 10 mg tablet 10 mg PO QHS #0 tabs 3 07/24/23 Rx mirtazapine 15 mg tablet 7.5 mg (1/2 x 15 mg) PO QHS #0 tabs 23 07/24/23 Rx citalopram 10 mg tablet (Celexa) [...] clinician: N/A This note was generated with [employer] dictation software. It may contain incorrectwords, spelling, and punctuation that were not noted in checking the note beforesigning. Radiography Diagnostic Testing: Clinical Impression(s) from Imaging Studies Shoulder X-Ray 11/03/24 21:48 IMPRESSION: NO ACUTE FRACTURE OR DISLOCATION. Reading [facility] Brain [facility] 11/03/24 22:10 IMPRESSION: CHRONIC CHANGES. NO ACUTE FINDINGS. Reading Location: [employer] Cervical Spine CT 11/03/24 22:10 IMPRESSION: NO ACUTE CERVICAL FRACTURE. DEGENERATIVE CHANGES. No acute fracture or subluxation. Reading Location: [facility] Facial/Sinus 11/03/24 22:10 IMPRESSION: Small soft tissue laceration along the right supraorbital region. No acute fracture. Reading Location: [facility] Discharge Plan Triage Chief Complaint: Fall [...] in 5 to 7 days. Print Language: Slovak Disposition Disposition: Home, Self Care What to do if you have Problems For any increased pain, shortness of breath, bleeding, nausea or vomiting, chestpain, or any unexpected problems, contact your Primary Care Provider. Call [facility] ([phone]) or report to the closest Emergency Room. Call 911 if necessary. 11/04/24 003 <Electronically signed by Alirio Patel> Cosigner Signature (if applicable): CC: Dr. Pete Payne MD ~ Signed [facility] Work Phone: [phone] 216-353804-18-2025 Discharge summary [facility] Medical Records Department [address] [place] [address] Emergency Department Summary 11/03/24 MR#: [id number] Acct: [id number] Name: MAXIME AMARAL Rep #:[id number] : 1935 89 From: Alirio Patel PCP: Dr. Pete Payne MD Status:R EG ER Location: ED HPI HPI - Fall History of Present Illness Chief Complaint: Fall Informant: patient and family Narrative Narrative: Patient brought in by EMS from [facility] witnessed fall head injury. Patient history of dementia ambulatory per son. Mostly wheelchair, can weight- bear transfer. From paperwork gaited bowel withwalking. Reports she did walk with a walker minimally a week ago. Reported getting off the commode she turneddown hitting her head on a radiator. No anticoagulants. She is DNR CC as of 2022 from paperwork. She has baseline per son. [facility] Medical History Dry eye syndrome of [...] clinician: N/A This note was generated with [employer] dictation software. It may contain incorrectwords, spelling, and punctuation that were not noted in checking the note beforesigning. Radiography Diagnostic Testing: Clinical Impression(s) from Imaging Studies Shoulder X-Ray 11/03/24 21:48 IMPRESSION: NO ACUTE FRACTURE OR DISLOCATION. Reading Location: [facility] Brain CT 11/03/24 22:10 IMPRESSION: CHRONIC CHANGES. NO ACUTE FINDINGS. Reading Location: [facility] Cervical Spine CT 11/03/24 22:10 IMPRESSION: NO ACUTE CERVICAL FRACTURE. DEGENERATIVE CHANGES. No acute fracture or subluxation. Reading Location: [facility] Facial/Sinus 11/03/24 22:10 IMPRESSION: Small soft tissue laceration along the right supraorbital region. No acute fracture. Reading Location: [facility] Discharge Plan Triage Chief Complaint: Fall Other [...] in 5 to 7 days. Print Language: Slovak Disposition Disposition: Home, Self Care What to do if you have Problems For any increased pain, shortness of breath, bleeding, nausea or vomiting, chestpain, or any unexpected problems, contact your Primary Care Provider. Call [facility] ([phone]) or report tothe closest Emergency Room. Call 911 if necessary. 11/04/24 0036 Cosigner Signature (if applicable): CC: Dr. Pete Payne MD ~ Signed [facility]04-17-2025 Radiology Diagnostic study note [facility] Imaging Services [address] [place], [place] [id number] Spine Cervical without Contras MR#: [id number] Acct: [id number] Name: MAXIME AMARAL Rep #: [id number] : 1935 F 89 From: Steve Sotelo DO PCP: Dr. Pete Payne MD Status: R EG ER Study:Spine Cervical without Contras Date of Exam: 11/03/24 Exam# [id number] Ordering Dr: Alirio Edward DO PROCEDURE: SPINE [...] No acute fracture or subluxation. Reading Location: [facility] CC: Dr. Pete Payne MD; Dr. Alirio Edward DO ~ [employer] Crewmember: Signed [facility]04-17-2025 Radiology Diagnostic study note [facility] Imaging Services [address] [place] [address] Sinus/Facial Bone MR#: [id number] Acct: [id number] Name: MAXIME AMARAL Rep #: [id number] : 1935 F 89 From: Steve Sotelo DO PCP: Dr. Pete Payne MD Status: R EG ER Study:Sinus/Facial Bone Date of Exam: Exam# [id number] Ordering Dr: Alirio Edward DO PROCEDURE: SINUS/FACIAL [...] supraorbital region. No acute fracture. Reading Location[facility] CC: Dr. Pete Payne MD; Dr. Alirio Edward DO ~ [employer] Crewmember: Signed [facility]04-17-2025 Radiology Diagnostic study note [facility] Imaging Services [address] [place], [place] [id number] Brain/Head without Contrast MR#: [id number] Acct: [id number] Name: MAXIME AMARAL Rep #: [id number] : 1935 F 89 From: Steve Sotelo DO PCP: Dr. Pete Payne MD Status: R EG ER Study:Brain/Head without Contrast Date of Exa m: 11/03/24 Exam# [id number] Ordering Dr: Alirio Edward DO PROCEDURE: BRAIN/HEAD [...] CHRONIC CHANGES. NO ACUTE FINDINGS. Reading [facility] CC: Dr. Pete Payne MD; Dr. Alirio Edward DO ~ [employer] Crewmember: Signed [facility]04-17-2025 Radiology Diagnostic study note [facility] Imaging Services [address] [place], [place] [id number] Shoulder min 2 Views MR#: [id number] Acct: [id number] Name: MAXIME AMARAL Rep #: [id number] : 1935 F 89 From: Steve Sotelo DO PCP: Dr. Pete Payne MD Status: R ER Study:Shoulder min 2 Views Date of Exam: 11/03/24 Exam# [id number] Ordering Dr: Alirio Edward DO PROCEDURE: SHOULDER MIN 2 VIEWS 11/03/2024 REASON FOR EXAM: INJURY TECHNIQUE: 3 view(s) of the right shoulder COMPARISON: None FINDINGS: Bones: No acute fracture. Joints: Normal alignment of the acromioclavicular and glenohumeral joints. Soft tissues: Soft tissues are unremarkable. Other: RAD/Shoulder min 2 Views IMPRESSION: NO ACUTE FRACTURE OR DISLOCATION. Reading [facility] CC: Dr. Pete Payne MD; Dr. Alirio Edward DO ~ [employer] Crewmember: Signed [facility]01-06-2024 Discharge summary Author Jos Rush [facility] July 25, 2023 8:48am Note Date/Time July 25, 2023 8: 48am [facility] Medical Records Department [address] [place] [address] Emergency Department Summary 07/25/23 MR#: [id number] Acct: [id number] Name: MAXIME AMARAL Rep #:[id number] : 1935 87 From: Jos Rush DO PCP: Dr. Pete Payne MD Status:R EG ER Location: ED HPI History of Present Illness Chief Complaint: Fall Informant: patient and SNF Narrative Narrative: Patient is a 87-year-old female with history of hypertension hyperlipidemia hypothyroidism type 2 diabetes and debility as well as Alzheimer's disease. Sheis typically A&O x 1. [facility] states that she was found on her [...] this time but otherwise denies any symptoms [facility] Medical History Alzheimer's disease, unspecified CKD [...] is otherwise safe to return to the retirement Radiography Diagnostic Testing: Clinical Impression(s) from Imaging Studies Brain CT 07/25/23 04:58 IMPRESSION: No acute intracranial abnormality. Stable moderate chronic changes. Electronically Signed: aGbrielle Gallegos MD at 6:20 EST , Cervical [...] 6:40 EST Reading Location ID and State: [facility] / [place] Tel , Service support , Hip/Pelvis X-Ray 07/25/23 05:47 IMPRESSION: No acute pelvic or left hip fracture demonstrated. Electronically Signed: Gabrielle Gallegos MD at 6:45 EST Reading Location ID and State: [facility] / [place] Tel , Service support , Lower Extremity CT 07/25/23 06:44 IMPRESSION: 1. Small amount of presumed hemarthrosis or other complex mildly dense fluid in the suprapatellar bursa. No lipohemarthrosis or convincing acute fracture. 2. Irregular posterior-medial tibial plateau corner is not typical of acute fracture. Demineralization and degenerative changes. Electronically Signed: Gabrielle Gallegos MD at 8:18 EST Reading Location ID and State: [facility] / [place] Tel , Service support , Left hip [...] your Primary Care Provider. Call [facility] ([phone]) or report to the closest Emergency Room. Call 911 if necessary. 07/25/23 0848 <Electronically signed by Jos Rush DO> Cosigner Signature (if applicable): CC: Dr. Ptee Payne MD ~ Signed [facility] Work Phone: 1(715) 792-626307-04-2023 Discharge summary Author Jos [facility] January 20, 2023 4:32am Note Date/Time January 20, 2023 3:43a m [facility] Medical Records Department [address] [place] [address] Emergency Department Summary 01/20/23 MR#: [id number] Acct: [id number] Name: MAXIME AMARAL Ellie Rep #:[id number] : 1935 87 From: Jos Rush DO PCP: Dr. Pete Payne MD Status:R EG ER Location: ED HPI History of Present Illness Chief Complaint: Fall Informant: patient and EMS Limited: dementia Narrative Narrative: Patient is a 87-year-old female with past medical history of dementia who stays in a retirement in their dementia unit. Nursing reports that patient was reportedly wandering this evening and had a fall. They found the patient awake and alert but with trauma to her head/face. They deny any blood thinners but states secondary to the fall and patient complaining of pain in her knees and shoulders she was sent in for evaluation [facility] Medical History Alzheimer's disease, unspecified Depression, [...] 3:16 EDT Reading Location ID and State: [address] [place] [address] Tel , Service support , Cervical Spine CT 01/20/23 02:21 IMPRESSION: Multilevel degenerative changes, as described above. Electronically Signed: Netta Delarosa MD at 3:18 EDT Reading Location ID and State: [facility] / [place] Tel , Service support , Knee X-Ray 01/20/23 02:21 IMPRESSION: Moderate to severe degenerative arthrosis worse in the left knee more prominent in the medial femorotibial joints. Electronically Signed: Netta Delarosa MD at 3:35 EDT Reading Location ID and State: [facility] / [place] Tel , Service support , Pelvis X-Ray 01/20/23 02:21 IMPRESSION: Degenerative arthrosis. No evidence of displaced pelvic or hip fracture. Electronically Signed: Netta Delarosa MD at 3:32 EDT Reading Location ID and State: [facility] / [place] Tel , Service support , Shoulder X-Ray 01/20/23 02:21 IMPRESSION: Severe narrowing of the subacromial space in both shoulders consistent with complete bilateral rotator cuff tear . Mild degenerative arthrosis in both shoulders. Electronically Signed: Netta Delarosa MD at 3:36 EDT Reading Location ID and State: [facility] / [place] Tel , Service support , Pelvis x-rays interpreted by the emergency [...] your Primary Care Provider. Call [facility] ([phone]) or report to the closest Emergency Room. Call 911 if necessary. 01/20/23431 <Electronically signed by Jos Rush DO> Cosigner Signature (if applicable): CC: Dr. Pete Payne MD ~ Signed [facility] Work Phone: 1([phone]) 165-138305-10-[address] Crooks [facility] November 26, 2022 9:10pm Note Date/Time November 26, 2022 9:10p m [facility] Medical Records Department [address] [place] [address] Transfer to [facility] MR#: [id number] Acct: [id number] Name: MAXIME AMARAL Ellie Rep #:[id number] : 1935 87 From: Sylvester Crooks MD PCP: ALANNAH BENITO Status:ADM IN Certification of patient admission REQUIRED AT TIME OF ADMISSION. I CERTIFY THAT POST-HOSPITAL ECF SERVICES ARE REQUIRED TO BE GIVEN ON AN IN-PATIENT BASIS BECAUSE OF THE ABOVE NAMED PATIENT'S NEED FOR ALF CARE ON A CONTINUING BASIS FOR THE CONDITION(S) FOR WHICH HE/SHE WAS RECEIVING IN-PATIENT HOSPITAL SERVICES PRIOR TO HIS/HER TRANSFER TO THE [facility]. 11/26/222109<Electronically signed by Sylvester Crooks MD> Diet [...] for rehabilitation, strengthening, prior to discharge to [facility]. * Debility - PT/OT. * Cognition [...] - Bupropion XL 150mg daily, stable chronic long term care social worker use, GDR not recommended. * Alzheimer Disease [...] Dao ; Tanisha Henriquez ; Britany White CONCRETE CONVEYOR OPERATOR Instructions Additional Instructions / Restrictions: Discharge to [facility] 11/29/2022, intermediate. Discharge Orders/Prescriptions Prescriptions: New donepezil [...] Crooks MD> Cosigner Signature (if applicable): CC: CONCRETE CONVEYOR OPERATOR-C Magnolia Tafoya; CONCRETE CONVEYOR OPERATOR-C Tanisha Henriquez; CONCRETE CONVEYOR OPERATOR-C Britany White; Dr. Steven Dean DO; Dr. Fany Dao MD; ALANNAH BENITO ~ [facility] Work Phone: [phone]) 492-528605-10-[address] Crooks [facility] November 26, 2022 9:09pm Note Date/Time November 26, 2022 9:05p [facility] Medical Records Department [address] [place] [address] Discharge Summary 11/26/222103 MR#: [id number] Acct: [id number] Name: MAXIME AMARAL Rep #:[id number] : 1935 87 From: Sylvester Crooks MD PCP: ALANNAH BENITO Status:ADM IN Location: [facility] TCU10-1 Providers Date of Admission: 11/13/22 Primary Care [...] for rehabilitation, strengthening, prior to discharge to [facility]. * Debility - PT/OT. * Cognition [...] - Bupropion XL 150mg daily, stable chronic correction use, GDR not recommended. * Alzheimer Disease [...] for rehabilitation, strengthening, prior to discharge to [facility]. Discharge to [facility] 11/29/2022, intermediate. Physical Exam Const alert General [...] Document 11/26/22 14:47 HUSEYIN (Rec: 11/26/22 14:47 [facility] [id number]) Nutrition Malnutrition Evidence of Malnutrition Exists Yes [...] and Uncontrolled pain Additional Instructions: Discharge to [facility] 11/29/2022, intermediate. Meaningful Use Info Meaningful Use Diagnoses (Choose all that apply): None applicable Discharge Plan Admission Admit Date/Time: 11/13/22 16:43 Primary Reason for Your Visit: Debility. Attending Provider: Sylvester Crooks Chi Primary Care Provider: ALANNAH BENITO Consulting Providers: Magnolia Tafoya ; Steven Dean ; Fany Dao ; Tanisha Henriquez ; Britany White CONCRETE CONVEYOR OPERATOR Instructions Additional Instructions / Restrictions: Discharge to [facility] 11/29/2022, intermediate. Discharge Orders/Prescriptions Prescriptions: New donepezil [...] Order can be placed): NonSkilled NH/Intermed Care 11/26/222108 <Electronically signed by Sylvester Crooks MD> Cosigner Signature (if applicable): CC: Dr. Sylvester Crooks MD; ALANNAH BENITO~ Signed [facility] Work Phone: [phone]) 165-574505-03-2023 History and physical note Author Dr. Crooks [facility] November 19, 2022 5:00pm Note Date/Time November 13, 2022 7:4 6pm [facility] Medical Records Department [address] [place] [address] History & Physical Exam 11/13/221939 MR#: [id number] Acct: [id number] Name: MAXIME AMARAL Rep #:[id number] : 1935 87 From: Sylvester Crooks MD PCP: ALANNAH BENITO Status:ADM IN [facility] [id number] - General General Date of Admission: 11/13/22 Date of Service: 11/13/22 Chief Complaint: Here for rehabilitation. HPI Narrative 11/11/2022 MAXIME AMARAL, is a 87 Female who presents to [facility] Emergency Department with nausea, vomiting, diarrhea. 11/11/2022 [...] for rehabilitation, strengthening, prior to discharge to [facility]. [facility] Medical History Alzheimer's disease, unspecified Depression, [...] for rehabilitation, strengthening, prior to discharge to [facility]. * Debility - PT/OT. * Cognition [...] - Bupropion XL 150mg daily, stable chronic correction use, GDR not recommended. * Alzheimer Disease [...] Sylvester Crooks MD; ALANNAH BENITO ~* Signed [facility] Work Phone: 1([phone]) 317-473404-28-[address] Crooks [facility] November 14, 2022 7:27pm Note Date/Time November 14, 2022 3:5 3pm [facility] Medical Records Department [address] [place] [address] Progress Note - Pharmacy 11/14/22 1531 MR#: [id number] Acct: [id number] Name: MAXIME AMARAL Rep #:[id number] : 1935 87 From: Roselyn Garzon PCP: ALANNAH BENITO Status:ADM IN Location: [facility] T[facility] RX Drug Regimen Review Subjective: TCU [...] 10 Mg Tablet PO 10 mg QHS ZOHAR Administration Ergocalciferol 1.25 mg 11/19/22 06:00 Ergocalciferol 1.25 Mg (50, 000 Unit) Capsule PO WE ZOHRA Hydrocortisone 1 applic 11/14/22 08:00 Hydrocortisone 2.5% [...] needed. Thanks. Date of Note:: 11/14/22 11/14/22 1553 <Electronically signed by Roselyn Garzon > Roselyn Garzon Cosignleela Signature (if applicable): 11/14/221926 <Electronically signed by Sylvester Crooks MD> CC: ~ Signed [facility] Work Phone: 1(518) 574-546504-27-[address] Betancur [facility] November 13, 2022 2:06pm Note Date/Time November 13, 2022 1:5 6pm [facility] Medical Records Department [address] [place] [address] Transfer to [facility] MR#: [id number] Acct: [id number] Name: MAXIME AMARAL Rep #:[id number] : 1935 87 From: Bernice Betancur MD PCP: ALANNAH BENITO Status:ADM IN Certification of patient admission REQUIRED AT TIME OF ADMISSION. I CERTIFY THAT POST-HOSPITAL ECF SERVICES ARE REQUIRED TO BE GIVEN ON AN IN-PATIENT BASIS BECAUSE OF THE ABOVE NAMED PATIENT'S NEED FOR ALF CARE ON A CONTINUING BASIS FOR THE CONDITION(S) FOR WHICH HE/SHE WAS RECEIVING IN-PATIENT HOSPITAL SERVICES PRIOR TO HIS/HER TRANSFER TO THE F. 11/13/22 1406<Electronically signed by Bernice Betancur MD> [...] with hypothyroidism and dementia who presented to [facility] 11/11/2022 with a sodium of 127 at [...] in before D/C Order can be placed): [facility] 11/13/22 1406 <Electronically signed by Bernice Betancur MD> Cosigner Signature (if applicable): CC: Dr. Ryder Brody MD; ALANNAH BENITO ~ [facility] Work Phone: [phone]) [phone] Betancur [facility] November 12, 2022 4:53pm Note Date/Time November 12, 2022 7:0 0am [facility] Medical Records Department [address] [place] [address] Progress Note - Hospitalist 11/12/22 0659 MR#: [id number] Acct: [id number] Name: MAXIME AMARAL Rep #:[id number] : 1935 87 From: Bernice Betancur MD PCP: ALANNAH BENITO Status:ADM IN [facility] Reason for Visit Reason for Visit: Diagnoses [...] % (Auto) 59.4, Lymph % (Auto) 31.3, [place]% (Auto) 7.4, Eos % (Auto) 0.9, Baso [...] Clarity Clear, Urine pH 6.0, Ur Specific [place] 1.010, Urine Protein Negative, Urine Glucose (UA) [...] % (Auto) Cancelled, Lymph % (Auto) Cancelled, [place] % (Auto) Cancelled, Eos % (Auto) Cancelled, [...] Drop Cells Cancelled, Ovalocytes Cancelled, Stomatocytes Cancelled, [place] Bodies Cancelled, [place] Cells Cancelled, Bite Cells Cancelled, Crenated Cell [...] % (Auto) 63.6, Lymph % (Auto) 26.7, [place] % (Auto) 7.1, Eos % (Auto) 1.4, [...] Lovenox ordered. Charges/Coding Visit Charges Inpatient E&M: 52766 Subs Hosp L2 11/12/223 <Electronically signed by Bernice Betancur MD> Cosigner Signature (if applicable): CC: ~ Signed [facility] Work Phone: [phone]) [phone] Ewing [facility] November 11, 2022 11:41pm Note Date/Time November 11, 2022 5:3 3pm [facility] Medical Records Department [address] [place] [address] Emergency Department Summary 11/11/22 MR#: [id number] Acct: [id number] Name: MAXIME AMARAL Rep #:[id number] : 1935 87 From: Nancy Ewing MD PCP: ALANNAH BENITO Status:ADM IN Location: [facility] XS240-7 HPI History of Present Illness Chief Complaint: Nausea/Vomiting/Diarrhea Detail of Chief Complaint: Generalized weakness Informant: patient and family Onset/Context/Timing Onset: Weeks Narrative Narrative: Patient presents via EMS from assisted living at [facility]. Son is at bedside and provides much [...] body pain. She denies fever or cough. [facility] Medical History Alzheimer's disease, unspecified Depression, [...] Medical decision making narrative: Patient placed on music specialist. EKG obtained to evaluate for cardiac arrhythmia/ischemia. [...] % (Auto) 59.4 Lymph % (Auto) 31.3 [place] % (Auto) 7.4 Eos % (Auto) 0.9 [...] Color Urine Clarity Urine pH Ur Specific [place] Urine Protein Urine Glucose (UA) Urine Ketones Urine Occult Blood Urine Nitrite Urine Bilirubin Urine Urobilinogen Ur Leukocyte Esterase Urine RBC Urine WBC Ur Squamous Epith Cells Urine Bacteria Urine Mucus 11/11/22 19:47 WBC RBC Hgb Hct MCV MCH MCHC RDW Std Deviation RDW Coeff of Kristal Plt Count MPV Immature Gran % (Auto) Neut % (Auto) Lymph % (Auto) [place] % (Auto) Eos % (Auto) Baso % [...] Clarity Clear Urine pH 6.0 Ur Specific [place] 1.010 Urine Protein Negative Urine Glucose (UA) [...] [Non-Staff] - Disposition Disposition: Acute Care Hospital [facility] What to do if you have Problems For any increased pain, shortness of breath, bleeding, nausea or vomiting, chestpain, or any unexpected problems, contact your Primary Care Provider. Call [facility] ([phone]) or report to the closest Emergency Room. Call 911 if necessary. 11/11/222340 <Electronically signed by Nancy Ewing MD> Cosigner Signature (if applicable): CC: ALANNAH BENITO ~ Signed [facility] Work Phone: [phone] History and physical note Author Dr. Brody [facility] November 11, 2022 10:26pm Note Date/Time November 11, 2022 9:3 3pm [facility] Medical Records Department [address] [place] [address] H&P Exam - Hospitalist 11/11/222132 MR#: [id number] Acct: [id number] Name: MAXIME AMARAL Rep #:[id number] : 1935 87 From: Ryder Brody MD PCP: ALANNAH BENITO Status:ADM IN Location: [facility] EK015-7 HPI - General General Date of Admission: 11/11/22 Date of Service: 11/11/22 Chief Complaint: Abnormal labs HPI Narrative MAXIME AMARAL, is a 87 F with a significant history of hypothyroidism and dementia; and who lives at assisted medicine facility at [facility] presenting to the emergency department with abnormal [...] department patient could not urinate. [facility] Medical History Alzheimer's disease, unspecified Depression, [...] % (Auto) 59.4, Lymph % (Auto) 31.3, [place] % (Auto) 7.4, Eos % (Auto) 0.9, [...] Clarity Clear, Urine pH 6.0, Ur Specific [place] 1.010, Urine Protein Negative, Urine Glucose (UA) [...] Lovenox ordered. Charges/Coding Visit Charges Inpatient E&M: 56834 Init Hosp L3 11/11/222225 <Electronically signed by Ryder Brody MD> Cosigner Signature (if applicable): CC: Dr. Ryder Brody MD; ALANNAH BENITO~ Signed [facility] Work Phone: Evaluation note* Diagnosis Onset Date Resolution Status Declining functional status acute Hypokalemia acute Hyponatremia acute Weakness acute Hypertension [facility] Work Phone: Evaluation note* Diagnosis Onset Date Resolution Status Declining functional status acute Hyponatremia acute Hypertension chronic Alzheimer disease acute Debility acute Dehydration acute Depression acute Diabetes mellitus acute Hyperlipidemia acute Hyponatremia acute Hypothyroidism acute Hypertension chronic [facility] Work Phone: Evaluation note* Diagnosis Onset Date Resolution Status Declining functional status acute Hyponatremia acute Hypertension chronic Alzheimer disease acute Debility acute Depression acute Diabetes mellitus acute Hyperlipidemia acute Hypothyroidism acute Hypertension chronic Dehydration resolved Hyponatremia resolved [facility] Work Phone: Evaluation noteNo assessment information available [facility] Work Phone: History and physical note Author Dr. Brody [facility] November 11, 2022 10:26pm Note Date/Time November 11, 2022 9:3 3pm [facility] Medical Records Department [address] [place] [address] H&P Exam - Hospitalist 11/11/222132 MR#: [id number] Acct: [id number] Name: MAXIME AMARAL Rep #:[id number] : 1935 87 From: Ryder Brody MD PCP: ALANNAH BENITO Status:ADM IN Location: [facility] KU740-1 HPI - General General Date of Admission: 11/11/22 Date of Service: 11/11/22 Chief Complaint: Abnormal labs HPI Jose AMARAL, is a 87 F with a significant history of hypothyroidism and dementia; and who lives at assisted medicine facility at [facility] presenting to the emergency department with abnormal [...] department patient could not urinate. [facility] Medical History Alzheimer's disease, unspecified Depression, [...] % (Auto) 59.4, Lymph % (Auto) 31.3, [place] % (Auto) 7.4, Eos % (Auto) 0.9, [...] Clarity Clear, Urine pH 6.0, Ur Specific [place] 1.010, Urine Protein Negative, Urine Glucose (UA) [...] Lovenox ordered. Charges/Coding Visit Charges Inpatient E&M: 07156 Init Hosp L3 11/11/222225 <Electronically signed by Ryder Brody MD> Cosigner Signature (if applicable): CC: Dr. Ryder Brody MD; ALANNAH BENITO~ Signed [facility] Work Phone: Hospital Discharge instructions Additional Instructions CT head face and neck negative. Right shoulder x-ray negative. 7 sutures placed. Have removed in 5 to 7 days.[facility] Work Phone: Reason for referral (narrative)No reason for referral information availableWBarberton [facility] Work Phone: Chief Complaint and Reason for [...] Complaint MONTHLY EXAM UNWITNESSED FALL MONTHLY EXAM ALF LAB WORK MONTHLY EXAM NURIS HOME LABWORK Chief Complaint MONTHLY EXAM MONTHLY EXAM MONTHLY EXAM FALL Chief Complaint MONTHLY EXAM MONTHLY EXAM FALL LABWORK Chief Complaint Admit Date NEW CONCERN June 21, 2024 5 :08pm ALF LAB WORK July 11 5:00am ALF LAB WORK August 23, 2024 5:00am MONTHLY EXAM September 01, 2024 11:29am LABWORK October 03, 2024 5:0 0am Chief Complaint Admit Date ALF LAB WORK July 11 5:00am ALF LAB WORK August 23, 2024 5:00am MONTHLY EXAM September 01, 2024 11:29am MONTHLY EXAM September 20, 2024 3:13 pm LABWORK October 03, 2024 5:0 0am ALF LAB WORK October 06, 2024 5 :00am Chief Complaint Admit Date ALF LAB WORK July 11 5:00am ALF LAB WORK August 23, 2024 5:00am MONTHLY EXAM September 01, 2024 11:29am MONTHLY EXAM September 20, 2024 3:13 pm LABWORK October 03, 2024 5:0 0am ALF LAB WORK October 06, 2024 5 :00am LABWORK October 10, 2024 5:0 0am Chief Complaint Admit Date ALF LAB WORK July 11 5:00am ALF LAB WORK August 23, 2024 5:00am MONTHLY EXAM September 01, 2024 11:29am MONTHLY EXAM September 20, 2024 3:13 pm LABWORK October 03, 2024 5:0 0am ALF LAB WORK October 06, 2024 5 :00am LABWORK October 10, 2024 5:0 0am FALL, LACERATION November 03, 2024 9:0 6pm Chief Complaint Admit Date ALF LAB WORK July 11 5:00am ALF LAB WORK August 23, 2024 5:00am MONTHLY EXAM September 01, 2024 11:29am MONTHLY EXAM September 20, 2024 3:13 pm LABWORK October 03, 2024 5:0 0am ALF LAB WORK October 06, 2024 5 :00am LABWORK October 10, 2024 5:0 0am ALF LAB WORK October 17, 2024 5 :00am FALL, LACERATION November 03, 2024 9:0 6pm Chief Complaint Admit Date MONTHLY EXAM September 01, 2024 11:29am MONTHLY EXAM September 20, 2024 3:13 pm LABWORK October 03, 2024 5:0 0am ALF LAB WORK October 06, 2024 5 :00am LABWORK October 10, 2024 5:0 0am ALF LAB WORK October 17, 2024 5 :00am MONTHLY EXAM October 21, 2024 1:47 pm FALL, LACERATION November 03, 2024 9:0 6pm ALF LAB WORK November 14, 2024 4 :00am ALF LAB WORK November 22, 2024 5:00 am ALF LAB WORK December 13, 2024 5:0 0am Chief Complaint Admit Date ALF LAB WORK August 23, 2024 5:00am MONTHLY EXAM September 01, 2024 11:29am MONTHLY EXAM September 20, 2024 3:13 pm LABWORK October 03, 2024 5:0 0am ALF LAB WORK October 06, 2024 5 :00am LABWORK October 10, 2024 5:0 0am ALF LAB WORK October 17, 2024 5 :00am MONTHLY EXAM October 21, 2024 1:47 pm FALL, LACERATION November 03, 2024 9:0 6pm ALF LAB WORK November 14, 2024 4 :00am ALF LAB WORK November 22, 2024 5:00 am Advance Directives No Advanced Directives Records Found Advance Directive Response Recorded Date/ Time Name of Medical Power of Pumping Supervisor ? November 11, 2022 4:49pm Living Will Yes November 11, 2022 4:49pm Power of Pumping Supervisor Yes November 11 4:49pm Advance Directive Response Recorded Date/ Time Name of Medical Power of Pumping Supervisor Matilda Pritchett November 11, 2022 10:59pm Living Will Yes November 11, 2022 10:59pm Power of Pumping Supervisor Yes November 11 10:59pm Advance Directive Response Recorded Date/ Time Name of Medical Power of Pumping Supervisor Matilda Pritchett November 11, 2022 10:59pm Name of Medical Power of Pumping Supervisor christine Pritchett November 14, 2022 10:44am Living Will Yes November 14, 2022 10:44am Power of Pumping Supervisor Yes November 14 10:44am Advance Directive Response Recorded Date/ Time Living Will Yes November 14, 2022 10:44am Power of Pumping Supervisor Yes November 14 10:44am Advance Directive Response Recorded Date/ Time Name of Medical Power of Pumping Supervisor NYA MORRIS July 25, 2023 4:49am Living Will Yes July 25 4:49am Power of Pumping Supervisor Yes July 25 4:49am Advance Directive Response Recorded Date/ Time Living Will Yes November 03, 2024 9:16pm Do you have a Healthcare Power of Pumping Supervisor? Yes November 03, 2024 9:16pm Name of Medical Power of Pumping Supervisor Daniel Amaral November 03, 2024 9:16pm Summary Purpose Family History No Family History Records Found Additional Source Comments Care Teams (unrecognized sec tion and content) Team Status: Active Member Role Status Dates Dr. Pete Payne MD Primary Care Provider Active Team Status: Active Member Role Status Dates Dr. Pete Payne MD Primary Care Provider Active Start: August 23, 2024 Pete ROBERTS MD Attending Provider Active Start: August 23, 2024 Team Status: Inactive Member Role Status Dates Dr. Pete Payne MD Primary Care Provider Active Start: September 01, 2024 End: September 01, 2024 KARLEY Clemens Attending Provider Active St art: September 01, [...] 2024 End: October 03, 2024 Team Status: Inactive Member Role Status [...] 2024 End: October 10, 2024 Team Status: Inactive Member Role Status Dates Dr. Pete Payne MD Primary Care Provider Active Start: October 17, 2024 End: October 17, 2024 Pete ROBERTS MD Attending Provider Active Start: October 17, 2024 End: October 17, 2024 Team Status: Inactive Member Role Status Dates Dr. Pete Payne MD Primary Care Provider Active Start: October 21, 2024 End: October 21, 2024 Poppy Mccracken CONCRETE CONVEYOR OPERATOR, CONCRETE CONVEYOR OPERATOR-C Attending Provider Active Start: October 21, 2024 End: October 21, 2024 Team Status: Inactive Member Role Status Dates Dr. Pete Payne MD Primary Care Provider Active Start: November 03, 2024 End: November 04, 2024 Dr. Alirio Edward DO Attending Provider Active Start : November 03, 2024 End: November 04, 2024 Dr. Alirio Edward DO Emergency Provider Active Start : November 03, 2024 End: November 04, 2024 Team Status: Inactive Member Role Status Dates Dr. Pete Payne MD Primary Care Provider Active Start: November 14, 2024 End: November 14, 2024 Pete ROBERTS MD Attending Provider Active Start: November 14, 2024 End: November 14, 2024 Pete ROBERTS MD Referring Provider Active Start: November 14, 2024 End: November 14, 2024 Team Status: Active Member Role Status Dates Dr. Pete Payne MD Primary Care Provider Active Start: November 22, 2024 Pete ROBERTS MD Attending Provider Active Start: November 22, 2024 Team Status: Active Member Role Status Dates Dr. Pete Payne MD Primary Care Provider Active Start: December 13, 2024 Pete ROBERTS MD Attending Provider Active Start: December 13, 2024 Team Status: Active Member Role Status Dates Dr. Mariano Dao MD Family Provider Active ALANNAH BENTIO Primary Care Provider Active Team Status: Active Member Role Status Dates Dr. Nancy Ewing MD Emergency Provider Active THONG JAFFE Primary Care Provider Active Dr. Ryder Brody MD Admit Provider, Attending Provider, Other Provider Active Team Status: Active Member Role Status Dates Dr. Nancy Ewing MD Emergency Provider Active THONG JAFFE Primary Care Provider Active Dr. Ryder Brody MD Admit Provider, Attending Pro vider Active Team Status: Active Member Role Status Dates Dr. Nancy Ewing MD Emergency Provider Active [facility] Primary Care Provider Active Dr. Ryder Brody MD Admit Provider, Other Provide r Active Dr. Bernice Betancur MD Attending Provider, Other Provid er Active Team Status: Inactive Member Role Status Dr. Nancy Ewing MD Emergency Provider Active [facility] Primary Care Provider Active Dr. Ryder Brody MD Admit Provider, Other Provide r Active Dr. Bernice Betancur MD Attending Provider Active Team Status: Active Member Role Status [facility] Primary Care Provider Active Dr. Sylvester Crooks MD Admit Provider, Attending Provid er Active Magnolia Tafoya , CONCRETE CONVEYOR OPERATOR-C Other Provider Active Dr. Steven Dean DO Other Provider Active Dr. Fany Dao MD Other Provider Active Tanisha Henriquez , CONCRETE CONVEYOR OPERATOR-C Other Provider Active Britany White CONCRETE CONVEYOR OPERATOR, CONCRETE CONVEYOR OPERATOR-C Other Provider Active Team Status: Inactive Member Role Status [facility] Primary Care Provider Active Dr. Sylvester Crooks MD Attending Provider, Referring Pr ovider Active Team Status: Inactive Member Role Status [facility]NA[facility] Primary Care Provider Active Dr. Sylvester Crooks MD Admit Provider, Attending Provid er Active Magnolia Tafoya CONCRETE CONVEYOR OPERATOR-C Other Provider Active Dr. Steven Dean DO Other Provider Active Dr. aFny Dao MD Other Provider Active Tanisha Henriquez , CONCRETE CONVEYOR OPERATOR-C Other Provider Active Britany White CONCRETE CONVEYOR OPERATOR, CONCRETE CONVEYOR OPERATOR-C Other Provider Active Team Status: Active Member Role Status Dr. Mariano Dao MD Family Provider Active Dr. Pete Payne MD Primary Care Provider Active Team Status: Inactive Member Role Status Dates Out of [facility] Doctor Primary Care Provider Active Dr. Pete Payne MD Attending Provider Active Team Status: Inactive Member Role Status Dates Out of [facility] Doctor Primary Care Provider Active Poppy Mccracken CONCRETE CONVEYOR OPERATOR, CONCRETE CONVEYOR OPERATOR-C Attending Provider Active Team Status: Inactive Member Role Status Dates Out [facility] Doctor Primary Care Provider Active Pete ROBERTS [...] MD Primary Care Provider Active Poppy Mccracken CONCRETE CONVEYOR OPERATOR, CONCRETE CONVEYOR OPERATOR-C Attending Provider Active Team Status: Inactive Member [...] 2024 End: June 21, 2024 Poppy Mccracken CONCRETE CONVEYOR OPERATOR, CONCRETE CONVEYOR OPERATOR-C Attending Provider Active Start: June 21, 2024 [...] MD Primary Care Provider Active Start: November 22, 2024 End: November 22, 2024 Pete ROBERTS MD Attending Provider Active Start: November 22, 2024 End: November 22, 2024 Team Status: Inactive Member Role Status Dates Dr. Pete Payne MD Primary Care Provider Active Start: December 13, 2024 End: December 13, 2024 Pete ROBERTS MD Attending Provider Active Start: December 13, 2024 End: December 13, 2024 Team Status: Active Member Role Status Dates Dr. Pete Payne MD Primary Care Provider Active Start: December 26, 2024 Pete ROBERTS MD Attending Provider Active Start: December 26, 2024 Goals (unrecognized section and content) Goals [...] ized section and content) DATE CREATED AUTHOR 01/07/2025 [facility] FOR RECORDS PERTAINING TO PATIENTS WHO ARE [...] BE BASED ON THE PRIMARY CLINICAL RECORDS. [employer] [facility] provides no warranty or guarantee of the accuracy or completeness of information in this document.
--- OUTSIDE RECORDS SUMMARY | 2025-01-13 04:17 | XMS RPT_ITS | CCD ---
Author Organization [facility] Care Team Providers Care Sheet Writer Name Role Phone Dr. Nancy Ewing Emergency Provider THONG ALANNAH Primary Care Provider Unavail able Dr. Ryder Brody Admit Provider Dr. Ryder Brody Attending Provider Dr. Ryder Brody Other Provider ALANNAH BENITO Primary Care Provider Dr. Bernice Betancur Attending Provider Dr. Bernice Betancur Other Provider [facility] Doctor, Out of Primary Care Provider Silvia Mccracken CONSULTING SALES MANAGER, CONSULTING SALES MANAGER-C Poppy Attending Provider Dr. Pete Dietz Attending Provider Dr. Pete Payne Primary Care Provider Dr. Pete Payne Attending Provider Kaykay CONSULTING SALES MANAGER, CONSULTING SALES MANAGER-C Poppy Attending Provider Dr. Pete Dietz Primary Care Provider Dr. Pete Payne Attending Provider Kaykay CONSULTING SALES MANAGER, CONSULTING SALES MANAGER-C Poppy Attending Provider Dr. Pete Dietz Primary Care Provider Dr. Pete Payne Attending Provider Kaykay CONSULTING SALES MANAGER, CONSULTING SALES MANAGER-C Poppy Attending Provider Elmer SAMUELS, Dr. Freeman Primary Care Provider Kaykay CONSULTING SALES MANAGER-CPoppy Attending Provider Pete Payne MD Attending Provider Unavaila Mateo Romero Attending Provider Elmer SAMUELS, Dr. Freeman Primary Care Provider Elmer SAMUELS, Dr. Freeman Attending Provider [phone] Cheyanne DRISCOLL, Dr. Amezquita Emergency Provider [phone] Elmer SAMUELS, Dr. Freeman Primary Care Provider Pete Payne MD Attending Provider Unavaila naun Mccracken CONSULTING SALES MANAGER-CPoppy Attending Provider Cheyanne DRISCOLL, Dr. Amezquita Attending [...] Unavailable Oleghe, Efewongbe Primary Care Unavailable Tickton CONSULTING SALES MANAGERPoppy Attending Unavailable Oleghe, Efewongbe Primary Care Unavailable [...] Unavailable Oleghe, Efewongbe Primary Care Unavailable Kaykay CONSULTING SALES MANAGERPoppy Attending Unavailable Oleghe, Efewongbe Primary Care Unavailable Oleghe, Efewongbe Attending Unavailable Oleghe, Efewongbe Attending Unavailable Oleghe, Efewongbe Primary Care Unavailable Oleghe OLS, Efewongbe Attending Unavailabl e Oleghe, Efewongbe Primary Care Unavailable Oleghe OLS, Efewongbe Attending Unavailabl e Oleghe, Efewongbe Primary Care Unavailable Oleghe, Efewongbe Attending Unavailable Oleghe, Efewongbe Primary Care Unavailable Oleghe OLS, Efewongbe Attending Unavailabl e Oleghe, Efewongbe Primary Care Unavailable Kaykay CONSULTING SALES MANAGER, Poppy Attending Unavailable Oleghe, Efewongbe Primary Care Unavailable Oleghe, Efewongbe Attending Unavailable Oleghe, Efewongbe Primary Care Unavailable Kaykay CONSULTING SALES MANAGERPoppy Attending Unavailable Oleghe, Efewongbe Primary Care Unavailable Oleghe OLS, Efewongbe Attending Unavailabl e Oleghe, Efewongbe Primary Care Unavailable Oleghe OLS, Efewongbe Attending Unavailabl e Oleghe, Efewongbe Primary Care Unavailable Allergies Allergy Classification Reported Allergen(s) Allergy Type Date of Onset Reaction(s) Facility (17 sources) Penicillins Propensity to adverse reactions 3 Diarrhea [facility] (1 source) Penicillins Drug allergy (disorder) 5 [facility] Repository Medications Current Medications Medication Drug Class(es) [...] <= 0.005 mIU/L QnOrde red By: Pete aPyne on 12-26-2024 TSH Qn 4.080 uIU/mL 0.300-4.200 [facility] Absolute lymphocyte countOrd ered By: Pete Payne on 12-13-2024 Lymphocytes Auto (Unsp spec) [#/Vol] 2.57 10*3/uL 0.83-4.51 [facility] Absolute neutrophil countOrd ered By: alexiscanonsburgsudarshan Payne on 12-13-2024 Neutrophils (Bld) [#/Vol] 5.1 10*3/uL 2.0-7.7 [facility] Automated lymphocyte count a s percentage of total leukocytesOrdered By: alexiscanonsburgsudarshan Pfeifferriteshyulia on 12-13-2024 Lymphocytes/100 WBC Auto (Unsp spec) 29.2 % 19-41 [facility] Basophil percentageOrdered B y: Pete Payne on 12-13-2024 Basophils/100 WBC (Bld) 0.8 % 0-1 [facility] Eosinophil percentageOrdered By: [facility] Kentrellyulia on 12-13-2024 Eosinophils/100 WBC (Bld) 3.5 % 0-5 [facility] Erythrocyte distribution wid th ratioOrdered By: [facility] Kentrellyulia on 12-13-2024 Erythrocyte distribution width (RBC) [Ratio] 13.4 % 11.6-14.6 [facility] Erythrocyte distribution wid th standard deviationOrdered By: [facility] Devinyulia on 12-13-2024 Erythrocyte distribution width (RBC) [Ratio] 46.0 fl High 35.1-43.9 [facility] Hematocrit Auto (Bld) [Volum e fraction]Ordered By: alexiscanonsburgsudarshan Payne on 12-13-2024 Hematocrit (Bld) [Volume fraction] 33.0 % Low 37-47 [facility] Hemoglobin measurementOrdere d By: alexiskeishasudarshan Pfeifferriteshyulia on 12-13-2024 Hemoglobin (Bld) [Mass/Vol] 10.6 g/dL Low 12.0-15.0 [facility] Immature granulocytes/100 WB C Auto (Bld)Ordered By: [facility] on 12-13-2024 Immature granulocytes/100 WBC (Bld) 0.300 % 0.0-0.9 [facility] Comment on above: IG% - Immature Granu locytes (promyelocytes, myelocytes and metamyelocytes) > 1% indicates that a LEFT SHIFT is Present. MCV (mean corpuscular volume ) determinationOrdered By: Pete Payne on 12-13-2024 MCV (RBC) [Entitic vol] 94.0 fL 81-99 [facility] Mean corpuscular hemoglobin (MCH) determinationOrdered By: Pete Payne on 12-13-2024 MCH (RBC) [Entitic mass] 30.2 pg 27.0-32.0 [facility] Mean corpuscular hemoglobin concentration (MCHC) determinationOrdered By: Pete Payne on 12-13-2024 MCHC (RBC) [Mass/Vol] 32.1 g/dL 32-36 [facility] Mean platelet volume determi nationOrdered By: Pete Payne on 12-13-2024 Platelet mean volume (Bld) [Entitic vol] 9.9 fL 6.2-12.0 [facility] Monocyte percentageOrdered B y: Pete Payne on 12-13-2024 Monocytes/100 WBC (Bld) 8.1 % 0-10 [facility] Neutrophil percentageOrdered By: Pete Payne on 12-13-2024 Neutrophils/100 WBC (Bld) 58.1 % 47-70 [facility] Nucleated red blood cell per centageOrdered By: Pete Payne on 12-13-2024 Nucleated RBC/100 WBC (Bld) [Ratio] 0 % 0-5 [facility] Platelet countOrdered By: Celeste alexisanne Payne on 12-13-2024 Platelets (Bld) [#/Vol] 309 10*3/uL 150-450 [facility] RBC Auto (Bld) [#/Vol]Ordere d By: Pete Payne on 12-13-2024 RBC (Bld) [#/Vol] 3.51 10*6/uL Low 4.2-5.4 [facility] White blood cell (WBC) count Ordered By: Pete Payne on 12-13-2024 WBC (Bld) [#/Vol] 8.8 10*3/uL 4.4-11.0 [facility] Hemoglobin A1c percentageOrd ered By: Pete Payne on 11-22-2024 HbA1c (Bld) [Mass fraction] 7.0 % High <5.7 [facility] Comment on above: Normal < 5.7 % Predi abetic 5.7 - 6.4 % Diabetic >or= 6.5 % Please note range changes. TSH DL <= 0.005 mIU/L QnOrde red By: Pete Payne on 11-14-2024 TSH Qn 3.270 uIU/mL 0.300-4.200 [facility] Brain/Head without Contrasto n 11-03-2024 Brain/Head without Contrast [facility] Imaging Services [address] [place], [place] [address] Brain/Head without Contrast MR#: [id number] Acct: [id number] Name: MAXIME AMAARL Rep #: [id number] : 1935 F 89 From: Davin Sotelo DO PCP: Dr. Pete Payne MD Status: REG ER Study: Brain/Head without Contrast Date of Exam: 10/18 02/10 Exam# [id number] Ordering Dr: Alirio Edward DO PROCEDURE: BRAIN/HEAD [...] Pete Payne MD; Dr. Alirio Edward DO Senior Ios Developer: Signed Normal [facility] Emergency Department Summary on 11-03-2024 Emergency Department Summary [facility] Medical Records Department [address] [place] [address] Emergency Department Summary 11/03/24 MR#: [id number] Acct: [id number] Name: MAXIME AMARAL Rep #: [id number] : 1935 89 From: Alirio Patel PCP: Dr. Pete Payne MD Status:REG ER Location: ED HPI HPI - Fall History of Present Illness Chief Complaint: Fall Informant: patient and family Narrative Narrative: Patient brought in by EMS from [facility] witnessed fall head injury. Patient history of dementia ambulatory per son. Mostly wheelchair, can weight-bear transfer. From paperwork gaited bowel with walking. Reports she did walk with a walker minimally a week ago. Reported getting off the commode she turned down hitting her head on a radiator. No anticoagulants. She is DNR CC as of 2022 from paperwork. She has baseline per son. [facility] Medical History Dry eye syndrome of [...] for te (more content not included)... Normal [facility] Shoulder min 2 Viewson 11-03 Shoulder min 2 Views [facility] Imaging Services [address] [place], [place] [id number] Shoulder min 2 Views MR#: [id number] Acct: [id number] Name: MAXIME AMARAL Rep #: [id number] : 1935 F 89 From: Davin Sotelo DO PCP: Dr. Pete Payne MD Status: REG ER Study: Shoulder min 2 Views Date of Exam: 11/03/24 Exam# [id number] Ordering Dr: Alirio Edward DO PROCEDURE: SHOULDER [...] Pete Payne MD; Dr. Alirio Edward DO Senior Ios Developer: Signed Normal [facility] Sinus/Facial Boneon 11-04-19 Sinus/Facial Bone [facility] Imaging Services [address] [place], [place] [id number] Sinus/Facial Bone MR#: [id number] Acct: [id number] Name: MAXIME AMARAL Rep #: [id number] : 1935 F 89 From: Davin Sotelo DO PCP: Dr. Pete Payne MD Status: REG ER Study: Sinus/Facial Bone Date of Exam: 11/03/24 Exam# [id number] Ordering Dr: Alirio Edward DO PROCEDURE: SINUS/FACIAL [...] supraorbital region. No acute fracture. [facility]: Dr. Pete Payne MD; Dr. Alirio Edward DO Senior Ios Developer: Signed Normal [facility] Spine Cervical without Contr ason 11-03-2024 Spine Cervical without Contras [facility] Imaging Services [address] [place], [place] [address] Spine Cervical without Contras MR#: [id number] Acct: [id number] Name: MAXIME AMARAL Rep #: [id number] : 1935 F 89 From: Davin Sotelo DO PCP: Dr. Pete Payne MD Status: REG ER Study: Spine Cervical without Contras Date of Exam: 0 11/03/24 Exam# [id number] Ordering Dr: Alirio Edward DO PROCEDURE: SPINE [...] No acute fracture or subluxation. [facility]: Dr. Pete Payne MD; Dr. Alirio Edward DO Senior Ios Developer: Signed Normal [facility] Absolute lymphocyte countOrd ered By: Pete Payne on 10-17-2024 Lymphocytes Auto (Unsp spec) [#/Vol] 3.03 10*3/uL 0.83-4.51 [facility] Absolute neutrophil countOrd ered By: Pete Payne on 10-17-2024 Neutrophils (Bld) [#/Vol] 5.3 10*3/uL 2.0-7.7 [facility] Automated lymphocyte count a s percentage of total leukocytesOrdered By: Pete Payne on 10-17-2024 Lymphocytes/100 WBC Auto (Unsp spec) 31.8 % 19-41 [facility] Basophil percentageOrdered B y: Pete Payne on 10-17-2024 Basophils/100 WBC (Bld) 0.8 % 0-1 [facility] Eosinophil percentageOrdered By: geena Payne on 10-17-2024 Eosinophils/100 WBC (Bld) 3.6 % 0-5 [facility] Erythrocyte distribution wid th (RBC) [Ratio]Ordered By: Pete Payne on 10-17-2024 Erythrocyte distribution width (RBC) [Entitic vol] 45.9 fL High 35.1-43.9 [facility] Erythrocyte distribution wid th ratioOrdered By: Pete Payne on 10-17-2024 Erythrocyte distribution width (RBC) [Ratio] 13.4 % 11.6-14.6 [facility] Erythrocyte distribution wid th standard deviationOrdered By: Pete Payne on 10-17-2024 Erythrocyte distribution width (RBC) [Ratio] 45.9 fl High 35.1-43.9 [facility] Hematocrit Auto (Bld) [Volum e fraction]Ordered By: Pete Payne on 10-17-2024 Hematocrit (Bld) [Volume fraction] 34.1 % Low 37-47 [facility] Hemoglobin measurementOrdere d By: Pete Payne on 10-17-2024 Hemoglobin (Bld) [Mass/Vol] 11.1 g/dL Low 12.0-15.0 [facility] Immature granulocytes/100 WB C Auto (Bld)Ordered By: [facility] Payne on 10-17-2024 Immature granulocytes/100 WBC (Bld) 0.400 % 0.0-0.9 [facility] Comment on above: IG% - Immature Granu locytes (promyelocytes, myelocytes and metamyelocytes) > 1% indicates that a LEFT SHIFT is Present. Lymphocytes Auto (Unsp spec) [#/Vol]Ordered By: [place]udarshan Payne on 10-17-2024 Lymphocytes (Bld) [#/Vol] 3.03 10*3/uL 0.83-4.51 [facility] Lymphocytes/100 WBC Auto (Un sp spec)Ordered By: Pete Payne on 10-17-2024 Lymphocytes/100 WBC (Bld) 31.8 % 19-41 [facility] MCV (mean corpuscular volume ) determinationOrdered By: Pete Payne on 10-17-2024 MCV (RBC) [Entitic vol] 92.4 fL 81-99 [facility] Mean corpuscular hemoglobin (MCH) determinationOrdered By: alexiscanonsburgsudarshan Payne on 10-17-2024 MCH (RBC) [Entitic mass] 30.1 pg 27.0-32.0 [facility] Mean corpuscular hemoglobin concentration (MCHC) determinationOrdered By: alexiscanonsburgsudarshan Payne on 10-17-2024 MCHC (RBC) [Mass/Vol] 32.6 g/dL 32-36 [facility] Mean platelet volume determi nationOrdered By: Pete Payne on 10-17-2024 Platelet mean volume (Bld) [Entitic vol] 10.0 fL 6.2-12.0 [facility] Monocyte percentageOrdered B y: Pete Beltrane on 10-17-2024 Monocytes/100 WBC (Bld) 7.4 % 0-10 [facility] Neutrophil percentageOrdered By: Pete Beltrane on 10-17-2024 Neutrophils/100 WBC (Bld) 56.0 % 47-70 [facility] Nucleated red blood cell per centageOrdered By: Pete Beltrane on 10-17-2024 Nucleated RBC/100 WBC (Bld) [Ratio] 0 % 0-5 [facility] Platelet countOrdered By: Ef geena Payne on 10-17-2024 Platelets (Bld) [#/Vol] 346 10*3/uL 150-450 [facility] RBC Auto (Bld) [#/Vol]Ordere d By: Pete Payne on 10-17-2024 RBC (Bld) [#/Vol] 3.69 10*6/uL Low 4.2-5.4 [facility] White blood cell (WBC) count Ordered By: Pete Payne on 10-17-2024 WBC (Bld) [#/Vol] 9.5 10*3/uL 4.4-11.0 [facility] Absolute lymphocyte countOrd ered By: Pete Beltrane on 10-10-2024 Lymphocytes Auto (Unsp spec) [#/Vol] 2.36 10*3/uL 0.83-4.51 [facility] Absolute neutrophil countOrd ered By: Pete Beltrane on 10-10-2024 Neutrophils (Bld) [#/Vol] 5.5 10*3/uL 2.0-7.7 [facility] Automated lymphocyte count a s percentage of total leukocytesOrdered By: Pete Beltrane on 10-10-2024 Lymphocytes/100 WBC Auto (Unsp spec) 26.6 % 19-41 [facility] Basophil percentageOrdered B y: Pete Beltrane on 10-10-2024 Basophils/100 WBC (Bld) 0.9 % 0-1 [facility] Eosinophil percentageOrdered By: Pete Payne on 10-10-2024 Eosinophils/100 WBC (Bld) 2.8 % 0-5 [facility] Erythrocyte distribution wid th (RBC) [Ratio]Ordered By: Pete Payne on 10-10-2024 Erythrocyte distribution width (RBC) [Entitic vol] 45.0 fL High 35.1-43.9 [facility] Erythrocyte distribution wid th ratioOrdered By: Pete Payne on 10-10-2024 Erythrocyte distribution width (RBC) [Ratio] 13.2 % 11.6-14.6 [facility] Erythrocyte distribution wid th standard deviationOrdered By: geena Payne on 10-10-2024 Erythrocyte distribution width (RBC) [Ratio] 45.0 fl High 35.1-43.9 [facility] Hematocrit Auto (Bld) [Volum e fraction]Ordered By: Pete Payne on 10-10-2024 Hematocrit (Bld) [Volume fraction] 35.0 % Low 37-47 [facility] Hemoglobin measurementOrdere d By: alexiscanonsburgsudarshan Payne on 10-10-2024 Hemoglobin (Bld) [Mass/Vol] 11.3 g/dL Low 12.0-15.0 [facility] Immature granulocytes/100 WB C Auto (Bld)Ordered By: Pete Payne on 10-10-2024 Immature granulocytes/100 WBC (Bld) 0.500 % 0.0-0.9 [facility] Comment on above: IG% - Immature Granu locytes (promyelocytes, myelocytes and metamyelocytes) > 1% indicates that a LEFT SHIFT is Present. Lymphocytes Auto (Unsp spec) [#/Vol]Ordered By: Pete Payne on 10-10-2024 Lymphocytes (Bld) [#/Vol] 2.36 10*3/uL 0.83-4.51 [facility] Lymphocytes/100 WBC Auto (Un sp spec)Ordered By: Pete Payne on 10-10-2024 Lymphocytes/100 WBC (Bld) 26.6 % 19-41 [facility] MCV (mean corpuscular volume ) determinationOrdered By: Pete Payne on 10-10-2024 MCV (RBC) [Entitic vol] 92.6 fL 81-99 [facility] Mean corpuscular hemoglobin (MCH) determinationOrdered By: Pete Payne on 10-10-2024 MCH (RBC) [Entitic mass] 29.9 pg 27.0-32.0 [facility] Mean corpuscular hemoglobin concentration (MCHC) determinationOrdered By: Pete Payne on 10-10-2024 MCHC (RBC) [Mass/Vol] 32.3 g/dL 32-36 [facility] Mean platelet volume determi nationOrdered By: Pete Payne on 10-10-2024 Platelet mean volume (Bld) [Entitic vol] 10.1 fL 6.2-12.0 [facility] Monocyte percentageOrdered B y: Pete Payne on 10-10-2024 Monocytes/100 WBC (Bld) 6.7 % 0-10 [facility] Neutrophil percentageOrdered By: Pete Payne on 10-10-2024 Neutrophils/100 WBC (Bld) 62.5 % 47-70 [facility] Nucleated red blood cell per centageOrdered By: Pete Payne on 10-10-2024 Nucleated RBC/100 WBC (Bld) [Ratio] 0 % 0-5 [facility] Platelet countOrdered By: Celeste alexisanne Payne on 10-10-2024 Platelets (Bld) [#/Vol] 361 10*3/uL 150-450 [facility] RBC Auto (Bld) [#/Vol]Ordere d By: Saturninokeishasudarshan Payne on 10-10-2024 RBC (Bld) [#/Vol] 3.78 10*6/uL Low 4.2-5.4 [facility] White blood cell (WBC) count Ordered By: Pete Payne on 10-10-2024 WBC (Bld) [#/Vol] 8.9 10*3/uL 4.4-11.0 [facility] Absolute lymphocyte countOrd ered By: Pete Payne on 10-06-2024 Lymphocytes Auto (Unsp spec) [#/Vol] 2.51 10*3/uL 0.83-4.51 [facility] Absolute neutrophil countOrd ered By: Pete Payne on 10-06-2024 Neutrophils (Bld) [#/Vol] 4.8 10*3/uL 2.0-7.7 [facility] Automated lymphocyte count a s percentage of total leukocytesOrdered By: Pete Payne on 10-06-2024 Lymphocytes/100 WBC Auto (Unsp spec) 30.2 % 19-41 [facility] Basophil percentageOrdered B y: Pete Payne on 10-06-2024 Basophils/100 WBC (Bld) 1.0 % 0-1 [facility] Eosinophil percentageOrdered By: [place]udarshan Payne on 10-06-2024 Eosinophils/100 WBC (Bld) 3.1 % 0-5 [facility] Erythrocyte distribution wid th (RBC) [Ratio]Ordered By: Pete Payne on 10-06-2024 Erythrocyte distribution width (RBC) [Entitic vol] 44.4 fL High 35.1-43.9 [facility] Erythrocyte distribution wid th ratioOrdered By: [facility] Payne on 10-06-2024 Erythrocyte distribution width (RBC) [Ratio] 13.3 % 11.6-14.6 [facility] Erythrocyte distribution wid th standard deviationOrdered By: [place]inoc[place]sudarshan Payne on 10-06-2024 Erythrocyte distribution width (RBC) [Ratio] 44.4 fl High 35.1-43.9 [facility] Hematocrit Auto (Bld) [Volum e fraction]Ordered By: Pete Beltranyulia on 10-06-2024 Hematocrit (Bld) [Volume fraction] 33.2 % Low 37-47 [facility] Hemoglobin measurementOrdere d By: Pete Payne on 10-06-2024 Hemoglobin (Bld) [Mass/Vol] 11.2 g/dL Low 12.0-15.0 [facility] Immature granulocytes/100 WB C Auto (Bld)Ordered By: Pete Beltranyulia on 10-06-2024 Immature granulocytes/100 WBC (Bld) 0.400 % 0.0-0.9 [facility] Comment on above: IG% - Immature Granu locytes (promyelocytes, myelocytes and metamyelocytes) > 1% indicates that a LEFT SHIFT is Present. Lymphocytes Auto (Unsp spec) [#/Vol]Ordered By: Pete Payne on 10-06-2024 Lymphocytes (Bld) [#/Vol] 2.51 10*3/uL 0.83-4.51 [facility] Lymphocytes/100 WBC Auto (Un sp spec)Ordered By: Pete Payne on 10-06-2024 Lymphocytes/100 WBC (Bld) 30.2 % 19-41 [facility] MCV (mean corpuscular volume ) determinationOrdered By: Pete Payne on 10-06-2024 MCV (RBC) [Entitic vol] 91.5 fL 81-99 [facility] Mean corpuscular hemoglobin (MCH) determinationOrdered By: [place]inoc[place]sudarshan Payne on 10-06-2024 MCH (RBC) [Entitic mass] 30.9 pg 27.0-32.0 [facility] Mean corpuscular hemoglobin concentration (MCHC) determinationOrdered By: geena Payne on 10-06-2024 MCHC (RBC) [Mass/Vol] 33.7 g/dL 32-36 [facility] Mean platelet volume determi nationOrdered By: Pete Payne on 10-06-2024 Platelet mean volume (Bld) [Entitic vol] 9.8 fL 6.2-12.0 [facility] Monocyte percentageOrdered B y: Pete Payne on 10-06-2024 Monocytes/100 WBC (Bld) 7.9 % 0-10 [facility] Neutrophil percentageOrdered By: alexiscanonsburgsudarshan Payne on 10-06-2024 Neutrophils/100 WBC (Bld) 57.4 % 47-70 [facility] Nucleated red blood cell per centageOrdered By: Pete Payne on 10-06-2024 Nucleated RBC/100 WBC (Bld) [Ratio] 0 % 0-5 [facility] Platelet countOrdered By: Celeste Payne on 10-06-2024 Platelets (Bld) [#/Vol] 348 10*3/uL 150-450 [facility] RBC Auto (Bld) [#/Vol]Ordere d By: Pete Payne on 10-06-2024 RBC (Bld) [#/Vol] 3.63 10*6/uL Low 4.2-5.4 [facility] White blood cell (WBC) count Ordered By: Celestealexisanne Kentrellriteshyulia on 10-06-2024 WBC (Bld) [#/Vol] 8.3 10*3/uL 4.4-11.0 [facility] T4 freeOrdered By: Celestealexisanne Kentrellriteshyulia on 10-03-2024 Free T4 [Mass/Vol] 1.20 ng/dL 0.76-1.46 [facility] TSH DL <= 0.005 mIU/L QnOrde red By: Celestealexiskeishasudarshan Pfeifferriteshyulia on 10-03-2024 Thyroid Stimulating Hormone (TSH) 4.480 uIU/mL High 0.300-4.200 [facility] TSH Qn 4.480 uIU/mL High 0.300-4.200 [facility] Absolute lymphocyte countOrd ered By: Pete Payne on 08-23-2024 Lymphocytes Auto (Unsp spec) [#/Vol] 2.44 10*3/uL 0.83-4.51 [facility] Absolute neutrophil countOrd ered By: Pete Beltranyulia on 08-23-2024 Neutrophils (Bld) [#/Vol] 5.4 10*3/uL 2.0-7.7 [facility] Albumin to globulin ratioOrd ered By: Pete Payne on 08-23-2024 Albumin/Globulin [Mass ratio] 0.7 {ratio} Low 0.9-2.4 [facility] Automated lymphocyte count a s percentage of total leukocytesOrdered By: Celestealexiskeishasudarshan Pfeifferriteshyulia on 08-23-2024 Lymphocytes/100 WBC Auto (Unsp spec) 27.5 % 19-41 [facility] Basophil percentageOrdered B y: Celestealexiskeishasudarshan Pfeifferriteshyulia on 08-23-2024 Basophils/100 WBC (Bld) 0.6 % 0-1 [facility] Bilirubin, totalOrdered By: Pete Payne on 08-23-2024 Bilirubin [Mass/Vol] 0.90 mg/dL 0.20-1.00 [facility] Comment on above: For patients on eltr ombopag therapy, use of Dimension [place] TBIL is not recommended. Blood urea nitrogen (BUN)/cr eatinine ratioOrdered By: Pete Payne on 08-23-2024 Urea nitrogen/Creatinine [Mass ratio] 19.5 mg/mg 10-20 [facility] Carbon dioxide measurementOr dered By: Pete Payne on 08-23-2024 CO2 [Moles/Vol] 25.0 mmol/L 21.0-32.0 [facility] Chloride measurementOrdered By: Pete Payne on 08-23-2024 Chloride [Moles/Vol] 108 mmol/L High 98-107 [facility] Eosinophil percentageOrdered By: Pete Payne on 08-23-2024 Eosinophils/100 WBC (Bld) 3.4 % 0-5 [facility] Erythrocyte distribution wid th (RBC) [Ratio]Ordered By: Pete Payne on 08-23-2024 Erythrocyte distribution width (RBC) [Entitic vol] 47.5 fL High 35.1-43.9 [facility] Erythrocyte distribution wid th ratioOrdered By: Pete Payne on 08-23-2024 Erythrocyte distribution width (RBC) [Ratio] 13.8 % 11.6-14.6 [facility] Erythrocyte distribution wid th standard deviationOrdered By: Pete Payne on 08-23-2024 Erythrocyte distribution width (RBC) [Ratio] 47.5 fl High 35.1-43.9 [facility] Estimated glomerular filtrat ion rate (GFR) AmericanOrdered By: Pete Payne on 08-23-2024 Estimated GFR (MDRD) Amer 69 mL/min >60 [facility] Comment on above: GFR Calc Glomerular filtration rate ( GFR) estimationOrdered By: Pete Payne on 08-23-2024 Estimated GFR (MDRD) Non-Af Amer 57 mL/min Low >60 [facility] Comment on above: Non- GFR Calc GFR/1.73 sq M.predicted among non-blacks MDRD (S/P/Bld) [Vol rate/Area] 57 mL/min/{1.73_m2} Low >60 [facility] Comment on above: Non- GFR Calc Glucose measurementOrdered B y: Pete Payne on 08-23-2024 Glucose [Mass/Vol] 122 mg/dL High 74-106 [facility] Comment on above: Fasting Glucose resu lt from 100 to 125 mg/dL suggests IMPAIRED HOMEOSTASIS per A.D.A. criteria. Hematocrit Auto (Bld) [Volum e fraction]Ordered By: Pete Payne on 08-23-2024 Hematocrit (Bld) [Volume fraction] 34.2 % Low 37-47 [facility] Hemoglobin A1c percentageOrd ered By: Pete Payne on 08-23-2024 HbA1c (Bld) [Mass fraction] 6.5 % High 3.8-5.6 [facility] Comment on above: Normal < 5.7 % Predi abetic 5.7 - 6.4 % Diabetic >or= 6.5 % Please note range changes. Hemoglobin measurementOrdere d By: Pete Payne on 08-23-2024 Hemoglobin (Bld) [Mass/Vol] 11.0 g/dL Low 12.0-15.0 [facility] Immature granulocytes/100 WB C Auto (Bld)Ordered By: Pete Payne on 08-23-2024 Immature granulocytes/100 WBC (Bld) 0.600 % 0.0-0.9 [facility] Comment on above: IG% - Immature Granu locytes (promyelocytes, myelocytes and metamyelocytes) > 1% indicates that a LEFT SHIFT is Present. Laboratory - Chemistry and C hemistry - challengeOrdered By: Pete Payne on 08-23-2024 AST [Catalytic activity/Vol] 12 U/L Low 15-37 [facility] Lymphocytes Auto (Unsp spec) [#/Vol]Ordered By: Pete Payne on 08-23-2024 Lymphocytes (Bld) [#/Vol] 2.44 10*3/uL 0.83-4.51 [facility] Lymphocytes/100 WBC Auto (Un sp spec)Ordered By: Pete Payne on 08-23-2024 Lymphocytes/100 WBC (Bld) 27.5 % 19-41 [facility] MCV (mean corpuscular volume ) determinationOrdered By: Pete Payne on 08-23-2024 MCV (RBC) [Entitic vol] 93.4 fL 81-99 [facility] Mean corpuscular hemoglobin (MCH) determinationOrdered By: Pete Payne on 08-23-2024 MCH (RBC) [Entitic mass] 30.1 pg 27.0-32.0 [facility] Mean corpuscular hemoglobin concentration (MCHC) determinationOrdered By: Pete Payne on 08-23-2024 MCHC (RBC) [Mass/Vol] 32.2 g/dL 32-36 [facility] Mean platelet volume determi nationOrdered By: Pete Payne on 08-23-2024 Platelet mean volume (Bld) [Entitic vol] 10.2 fL 6.2-12.0 [facility] Monocyte percentageOrdered B y: Pete Payne on 08-23-2024 Monocytes/100 WBC (Bld) 7.2 % 0-10 [facility] Neutrophil percentageOrdered By: Pete Payne on 08-23-2024 Neutrophils/100 WBC (Bld) 60.7 % 47-70 [facility] Nucleated red blood cell per centageOrdered By: Pete Payne on 08-23-2024 Nucleated RBC/100 WBC (Bld) [Ratio] 0 % 0-5 [facility] Platelet countOrdered By: Celeste Payne on 08-23-2024 Platelets (Bld) [#/Vol] 352 10*3/uL 150-450 [facility] Potassium measurementOrdered By: Pete Payne on 08-23-2024 Potassium [Moles/Vol] 4.0 mmol/L 3.5-5.1 [facility] RBC Auto (Bld) [#/Vol]Ordere d By: Pete Payne on 08-23-2024 RBC (Bld) [#/Vol] 3.66 10*6/uL Low 4.2-5.4 [facility] Serum anion gap measurementO rdered By: Pete Payne on 08-23-2024 Anion gap [Moles/Vol] 8 mmol/L 5-15 [facility] Serum globulin measurementOr dered By: Pete Payne on 08-23-2024 Globulin (S) [Mass/Vol] 3.5 g/dL 2.2-4.2 [facility] Serum or plasma alanine castro otransferase (ALT) measurementOrdered By: Pete Payne on 08-23-2024 ALT [Catalytic activity/Vol] 12 U/L Low 13-56 [facility] Serum or plasma albumin karri urement (mass/volume)Ordered By: Pete Payne on 08-23-2024 Albumin [Mass/Vol] 2.6 g/dL Low 3.2-5.0 [facility] Serum or plasma alkaline corky sphatase measurementOrdered By: Pete Payne on 08-23-2024 ALP [Catalytic activity/Vol] 54 U/L 45-117 [facility] Serum or plasma calcium karri urement (mass/volume)Ordered By: Pete Payne on 08-23-2024 Calcium [Mass/Vol] 8.5 mg/dL 8.5-10.1 [facility] Serum or plasma creatinine m easurement (mass/volume)Ordered By: Pete Payne on 08-23-2024 Creatinine [Mass/Vol] 0.98 mg/dL 0.55-1.02 [facility] Comment on above: The validity of the calculated GFR & GFRAA in patients over 70 years has not been determined. Clinical correlation is essential. Serum or plasma thyroid stim ulating hormone (TSH) measurement (units/volume)Ordered By: Pete Payne on 08-23-2024 TSH Qn 3.840 uIU/mL High 0.358-3.740 [facility] Serum or plasma urea nitroge n measurement (mass/volume)Ordered By: Pete Payne on 08-23-2024 Urea nitrogen [Mass/Vol] 19 mg/dL High 7-18 [facility] Sodium levelOrdered By: Saturnino Payne on 08-23-2024 Sodium [Moles/Vol] 141 mmol/L 136-145 [facility] TSH QnOrdered By: Pete Payne on 08-23-2024 Thyroid Stimulating Hormone (TSH) 3.840 uIU/mL High 0.358-3.740 [facility] Total proteinOrdered By: Rasmey Payne on 08-23-2024 Protein [Mass/Vol] 6.1 g/dL Low 6.4-8.2 [facility] White blood cell (WBC) count Ordered By: Pete Payne on 08-23-2024 WBC (Bld) [#/Vol] 8.9 10*3/uL 4.4-11.0 [facility] TSH QnOrdered By: Pete Payne on 07-11-2024 Thyroid Stimulating Hormone (TSH) 3.030 uIU/mL 0.358-3.740 [facility] Absolute lymphocyte countOrd ered By: Pete Payne on 08-25-2023 Lymphocytes Auto (Unsp spec) [#/Vol] 2.56 10*3/uL 0.83-4.51 [facility] Automated lymphocyte count a s percentage of total leukocytesOrdered By: Pete Payne on 08-25-2023 Lymphocytes/100 WBC Auto (Unsp spec) 28.1 % 19-41 [facility] Basophil percentageOrdered B y: Pete Payne on 08-25-2023 Basophils/100 WBC (Bld) 1.0 % 0-1 [facility] Bilirubin [Mass/Vol] 1.00 mg/dL 0.20-1.00 [facility] Comment on above: For patients on eltr ombopag therapy, use of Dimension [place] TBIL is not recommended. Chloride [Moles/Vol] 107 mmol/L 98-107 [facility] Eosinophils/100 WBC (Bld) 3.4 % 0-5 [facility] Glucose [Mass/Vol] 143 mg/dL 74-106 [facility] Comment on above: Fasting Glucose resu lt greater than or equal to 126 mg/dL suggests DIABETES MELLITUS per A.D.A. criteria. Hemoglobin (Bld) [Mass/Vol] 11.1 g/dL 12.0-15.0 [facility] Monocytes/100 WBC (Bld) 6.9 % 0-10 [facility] Neutrophils (Bld) [#/Vol] 5.5 10*3/uL 2.0-7.7 [facility] Neutrophils/100 WBC (Bld) 60.3 % 47-70 [facility] Potassium [Moles/Vol] 4.1 mmol/L 3.5-5.1 [facility] Protein [Mass/Vol] 6.8 g/dL 6.4-8.2 [facility] Sodium [Moles/Vol] 140 mmol/L 136-145 [facility] WBC (Bld) [#/Vol] 9.1 10*3/uL 4.4-11.0 [facility] Determination of erythrocyte mean corpuscular volume (MCV)Ordered By: Pete Payne on 08-25-2023 MCV (RBC) [Entitic vol] 93.5 fL 81-99 [facility] Erythrocyte distribution wid th ratioOrdered By: [facility] on 08-25-2023 Erythrocyte distribution width (RBC) [Ratio] 12.9 % 11.6-14.6 [facility] Erythrocyte distribution wid th standard deviationOrdered By: [facility] Kentrellyulia on 08-25-2023 Erythrocyte distribution width (RBC) [Entitic vol] 44.3 fL 35.1-43.9 [facility] Hematocrit Auto (Bld) [Volum e fraction]Ordered By: Saturninocanonsburgsudarshan Payne on 08-25-2023 Hematocrit (Bld) [Volume fraction] 34.5 % 37-47 [facility] Immature granulocytes/100 WB C Auto (Bld)Ordered By: alexiscanonsburgsudarshan Payne on 08-25-2023 Immature granulocytes/100 WBC (Bld) 0.300 % 0.0-0.9 [facility] Comment on above: IG% - Immature Granu locytes (promyelocytes, myelocytes and metamyelocytes) > 1% indicates that a LEFT SHIFT is Present. Laboratory - Chemistry and C hemistry - challengeOrdered By: Pete Payne on 08-25-2023 Albumin/Globulin [Mass ratio] 0.8 {ratio} 0.9-2.4 [facility] ALP [Catalytic activity/Vol] 62 U/L 45-117 [facility] ALT [Catalytic activity/Vol] 14 U/L 13-56 [facility] CO2 [Moles/Vol] 25.0 mmol/L 21.0-32.0 [facility] Globulin (S) [Mass/Vol] 3.8 g/dL 2.2-4.2 [facility] Urea nitrogen/Creatinine [Mass ratio] 20.9 mg/mg 10-20 [facility] Laboratory - Hematology and Cell countsOrdered By: Pete Payne on 08-25-2023 MCH (RBC) [Entitic mass] 30.1 pg 27.0-32.0 [facility] MCHC (RBC) [Mass/Vol] 32.2 g/dL 32-36 [facility] Nucleated RBC/100 WBC (Bld) [Ratio] 0 % 0-5 [facility] Platelet mean volume (Bld) [Entitic vol] 10.2 fL 6.2-12.0 [facility] Platelets (Bld) [#/Vol] 373 10*3/uL 150-450 [facility] No Panel InformationOrdered By: Pete Payne on 08-25-2023 Estimated GFR (MDRD) Amer 71 mL/min >60 [facility] Comment on above: GFR Calc Estimated GFR (MDRD) Non-Af Amer 59 mL/min >60 [facility] Comment on above: Non- GFR Calc RBC Auto (Bld) [#/Vol]Ordere d By: Pete Payne on 08-25-2023 RBC (Bld) [#/Vol] 3.69 10*6/uL 4.2-5.4 [facility] Serum or plasma calcium karri urement (mass/volume)Ordered By: Pete Payne on 08-25-2023 Calcium [Mass/Vol] 9.4 mg/dL 8.5-10.1 [facility] Serum or plasma creatinine m easurement (mass/volume)Ordered By: Pete Payne on 08-25-2023 Creatinine [Mass/Vol] 0.96 mg/dL 0.55-1.02 [facility] Comment on above: The validity of the calculated GFR & GFRAA in patients over 70 years has not been determined. Clinical correlation is essential. Serum or plasma urea nitroge n measurement (mass/volume)Ordered By: Pete Payne on 08-25-2023 Urea nitrogen [Mass/Vol] 20 mg/dL 7-18 [facility] Thin prep Papanicolaou smear with manual screeningOrdered By: alexiscanons[place]sudarshan Payne on 08-25-2023 Thin prep Papanicolaou smear with manual screening 3.0 g/dL 3.2-5.0 [facility] Thin prep Papanicolaou smear with manual screening 13 U/L 15-37 [facility] Thin prep Papanicolaou smear with manual screening 8 5-15 [facility] Whole blood hemoglobin A1c/t otal hemoglobin ratio (mass fraction)Ordered By: Pete Payne on 08-25-2023 HbA1c (Bld) [Mass fraction] 6.9 % 3.8-5.6 [facility] Comment on above: Normal < 5.7 % Predi abetic 5.7 - 6.4 % Diabetic >or= 6.5 % Please note range changes. Laboratory - Chemistry and C hemistry - challengeOrdered By: Pete Payne on 03-16-2023 Free T4 [Mass/Vol] 1.07 ng/dL 0.76-1.46 [facility] No Panel InformationOrdered By: Pete Payne on 03-16-2023 Thyroid Stimulating Hormone (TSH) 4.03 uIU/mL 0.358-3.74 [facility] Total Triiodothyronine 1.24 ng/mL 0.6-1.81 [facility] Absolute lymphocyte countOrd ered By: Pete Payne on 03-12-2023 Lymphocytes Auto (Unsp spec) [#/Vol] 2.46 10*3/uL 0.83-4.51 [facility] Basophil percentageOrdered B y: Pete Payne on 03-12-2023 Basophils/100 WBC (Bld) 1.1 % 0-1 [facility] Bilirubin [Mass/Vol] 0.70 mg/dL 0.20-1.00 [facility] Comment on above: For patients on eltr ombopag therapy, use of Dimension [place] TBIL is not recommended. Chloride [Moles/Vol] 106 mmol/L 98-107 [facility] Cholesterol [Mass/Vol] 106 mg/dL <200 [facility] Comment on above: <200 mg/dL Desirable 200-240 mg/dL Borderline >240 mg/dL High Risk Eosinophils/100 WBC (Bld) 2.8 % 0-5 [facility] Glucose [Mass/Vol] 151 mg/dL 74-106 [facility] Comment on above: Fasting Glucose resu lt greater than or equal to 126 mg/dL suggests DIABETES MELLITUS per A.D.A. criteria. Neutrophils (Bld) [#/Vol] 4.8 10*3/uL 2.0-7.7 [facility] Neutrophils/100 WBC (Bld) 57.0 % 47-70 [facility] Potassium [Moles/Vol] 4.1 mmol/L 3.5-5.1 [facility] Protein [Mass/Vol] 6.3 g/dL 6.4-8.2 [facility] Sodium [Moles/Vol] 138 mmol/L 136-145 [facility] Triglyceride [Mass/Vol] 135 mg/dL <199 [facility] Comment on above: The drugs N-Acetylcy steine and Metamizole may falsely depress this assay.Serum Triglycerides Reference Interval Normal <150 mg/dL Borderline high 150 - 199 mg/dL High 200 - 499 mg/dL Very High > or = 500 mg/dL WBC (Bld) [#/Vol] 8.3 10*3/uL 4.4-11.0 [facility] Blood erythrocytes count (nu mber/volume)Ordered By: Pete Payne on 03-12-2023 RBC (Bld) [#/Vol] 3.59 10*6/uL 4.2-5.4 [facility] Blood hemoglobin measurement (mass/volume)Ordered By: Pete Payne on 03-12-2023 Hemoglobin (Bld) [Mass/Vol] 11.0 g/dL 12.0-15.0 [facility] Blood lymphocytes/100 leukoc ytesOrdered By: Celestealexiskeishasudarshan Pfeifferriteshyulia on 03-12-2023 Lymphocytes/100 WBC (Bld) 29.5 % 19-41 [facility] Blood monocytes/100 leukocyt esOrdered By: alexiscanons[place]sudarshan Pfeifferriteshyulia on 03-12-2023 Monocytes/100 WBC (Bld) 9.2 % 0-10 [facility] Blood platelet mean volumeOr dered By: Celestegeena Payne on 03-12-2023 Platelet mean volume (Bld) [Entitic vol] 9.8 fL 6.2-12.0 [facility] Determination of erythrocyte mean corpuscular volume (MCV)Ordered By: Pete Payne on 03-12-2023 MCV (RBC) [Entitic vol] 93.9 fL 81-99 [facility] Hematocrit Auto (Bld) [Volum e fraction]Ordered By: Pete Payne on 03-12-2023 Hematocrit (Bld) [Volume fraction] 33.7 % 37-47 [facility] Laboratory - Chemistry and C hemistry - challengeOrdered By: Celestegeena Payne on 03-12-2023 ALP [Catalytic activity/Vol] 57 U/L 45-117 [facility] ALT [Catalytic activity/Vol] 16 U/L 13-56 [facility] CO2 [Moles/Vol] 25.0 mmol/L 21.0-32.0 [facility] Globulin (S) [Mass/Vol] 3.4 g/dL 2.2-4.2 [facility] Urea nitrogen/Creatinine [Mass ratio] 16.0 mg/mg 10-20 [facility] Laboratory - Hematology and Cell countsOrdered By: Pete Payne on 03-12-2023 Erythrocyte distribution width (RBC) [Entitic vol] 42.9 fL 35.1-43.9 [facility] Erythrocyte distribution width (RBC) [Ratio] 12.4 % 11.6-14.6 [facility] Immature granulocytes/100 WBC (Bld) 0.400 % 0.0-0.9 [facility] Comment on above: IG% - Immature Granu locytes (promyelocytes, myelocytes and metamyelocytes) > 1% indicates that a LEFT SHIFT is Present. MCH (RBC) [Entitic mass] 30.6 pg 27.0-32.0 [facility] Nucleated RBC/100 WBC (Bld) [Ratio] 0 % 0-5 [facility] MCHC Auto (RBC) [Mass/Vol]Or dered By: Pete Payne on 03-12-2023 MCHC (RBC) [Mass/Vol] 32.6 g/dL 32-36 [facility] No Panel InformationOrdered By: Pete Payne on 03-12-2023 Estimated GFR (MDRD) Amer 63 mL/min >60 [facility] Comment on above: GFR Calc Estimated GFR (MDRD) Non-Af Amer 52 mL/min >60 [facility] Comment on above: Non- GFR Calc Thyroid Stimulating Hormone (TSH) 4.75 uIU/mL 0.358-3.74 [facility] Vitamin D 25-Hydroxy 107.1 ng/mL [facility] Comment on above: Vitamin D 25(OH) Sta [...] 03-12-2023 Platelets (Bld) [#/Vol] 361 10*3/uL 150-450 [facility] Serum or plasma albumin karri urement (mass/volume)Ordered By: Pete Payne on 03-12-2023 Albumin [Mass/Vol] 2.9 g/dL 3.2-5.0 [facility] Serum or plasma albumin/glob ulin mass ratioOrdered By: Pete Payne on 03-12-2023 Albumin/Globulin [Mass ratio] 0.9 {ratio} 0.9-2.4 [facility] Serum or plasma calcium karri urement (mass/volume)Ordered By: Pete Payne on 03-12-2023 Calcium [Mass/Vol] 9.0 mg/dL 8.5-10.1 [facility] Serum or plasma cholesterol in HDL measurement (mass/volume)Ordered By: Pete Payne on 03-12-2023 Cholesterol in HDL [Mass/Vol] 46 mg/dL >40 [facility] Comment on above: The drugs N-Acetylcy steine and Metamizole may falsely depress this assay. Reference Range HDL <40 mg/dL Low HDL Cholesterol HDL >or= 60 mg/dL High HDL Cholesterol Serum or plasma cholesterol in VLDL measurement (mass/volume)Ordered By: Pete Payne on 03-12-2023 Cholesterol in VLDL [Mass/Vol] 27 mg/dL 5-40 [facility] Serum or plasma creatinine m easurement (mass/volume)Ordered By: Pete Payne on 03-12-2023 Creatinine [Mass/Vol] 1.06 mg/dL 0.55-1.02 [facility] Comment on above: The validity of the calculated GFR & GFRAA in patients over 70 years has not been determined. Clinical correlation is essential. Serum or plasma low density lipoprotein (LDL) cholesterol measurement (mass/volume)Ordered By: Pete Payne on 03-12-2023 Cholesterol in LDL [Mass/Vol] 33 mg/dL 0-130 [facility] Serum or plasma urea nitroge n measurement (mass/volume)Ordered By: Pete Payne on 03-12-2023 Urea nitrogen [Mass/Vol] 17 mg/dL 7-18 [facility] Thin prep Papanicolaou smear with manual screeningOrdered By: Pete Payne on 03-12-2023 Thin prep Papanicolaou smear with manual screening 13 U/L 15-37 [facility] Thin prep Papanicolaou smear with manual screening 7 5-15 [facility] Whole blood hemoglobin A1c/t otal hemoglobin ratio (mass fraction)Ordered By: Pete Payne on 03-12-2023 HbA1c (Bld) [Mass fraction] 7.2 % 3.8-5.6 [facility] Comment on above: Normal < 5.7 % Predi abetic 5.7 - 6.4 % Diabetic >or= 6.5 % Please note range changes. Absolute lymphocyte countOrd ered By: alexisc[place]ons[place]sudarshan Payne on 12-01-2022 Lymphocytes Auto (Unsp spec) [#/Vol] 2.66 10*3/uL 0.83-4.51 [facility] Basophil percentageOrdered B y: Pete Payne on 12-01-2022 Basophils/100 WBC (Bld) 1.0 % 0-1 [facility] Bilirubin [Mass/Vol] 1.00 mg/dL 0.20-1.00 [facility] Comment on above: For patients on eltr ombopag therapy, use of Dimension [place] TBIL is not recommended. Chloride [Moles/Vol] 100 mmol/L 98-107 [facility] Eosinophils/100 WBC (Bld) 2.3 % 0-5 [facility] Glucose [Mass/Vol] 152 mg/dL 74-106 [facility] Comment on above: Fasting Glucose resu lt greater than or equal to 126 mg/dL suggests DIABETES MELLITUS per A.D.A. criteria. Neutrophils (Bld) [#/Vol] 5.8 10*3/uL 2.0-7.7 [facility] Neutrophils/100 WBC (Bld) 60.2 % 47-70 [facility] Potassium [Moles/Vol] 4.3 mmol/L 3.5-5.1 [facility] Protein [Mass/Vol] 6.1 g/dL 6.4-8.2 [facility] Sodium [Moles/Vol] 138 mmol/L 136-145 [facility] WBC (Bld) [#/Vol] 9.7 10*3/uL 4.4-11.0 [facility] Blood erythrocytes count (nu mber/volume)Ordered By: Pete Payne on 12-01-2022 RBC (Bld) [#/Vol] 3.46 10*6/uL 4.2-5.4 [facility] Blood hemoglobin measurement (mass/volume)Ordered By: Pete Payne on 12-01-2022 Hemoglobin (Bld) [Mass/Vol] 10.8 g/dL 12.0-15.0 [facility] Blood lymphocytes/100 leukoc ytesOrdered By: Pete Payne on 12-01-2022 Lymphocytes/100 WBC (Bld) 27.5 % 19-41 [facility] Blood monocytes/100 leukocyt esOrdered By: geena Payne on 12-01-2022 Monocytes/100 WBC (Bld) 8.4 % 0-10 [facility] Blood platelet mean volumeOr dered By: Pete Payne on 12-01-2022 Platelet mean volume (Bld) [Entitic vol] 9.9 fL 6.2-12.0 [facility] Determination of erythrocyte mean corpuscular volume (MCV)Ordered By: Pete Payne on 12-01-2022 MCV (RBC) [Entitic vol] 97.1 fL 81-99 [facility] Hematocrit Auto (Bld) [Volum e fraction]Ordered By: Pete Payne on 12-01-2022 Hematocrit (Bld) [Volume fraction] 33.6 % 37-47 [facility] Laboratory - Chemistry and C hemistry - challengeOrdered By: Pete Payne on 12-01-2022 ALP [Catalytic activity/Vol] 60 U/L 45-117 [facility] ALT [Catalytic activity/Vol] 22 U/L 13-56 [facility] CO2 [Moles/Vol] 29.0 mmol/L 21.0-32.0 [facility] Globulin (S) [Mass/Vol] 3.3 g/dL 2.2-4.2 [facility] Urea nitrogen/Creatinine [Mass ratio] 16.1 mg/mg 10-20 [facility] Laboratory - Hematology and Cell countsOrdered By: Pete Payne on 12-01-2022 Erythrocyte distribution width (RBC) [Entitic vol] 44.6 fL 35.1-43.9 [facility] Erythrocyte distribution width (RBC) [Ratio] 12.5 % 11.6-14.6 [facility] Immature granulocytes/100 WBC (Bld) 0.600 % 0.0-0.9 [facility] Comment on above: IG% - Immature Granu locytes (promyelocytes, myelocytes and metamyelocytes) > 1% indicates that a LEFT SHIFT is Present. MCH (RBC) [Entitic mass] 31.2 pg 27.0-32.0 [facility] Nucleated RBC/100 WBC (Bld) [Ratio] 0 % 0-5 [facility] MCHC Auto (RBC) [Mass/Vol]Or dered By: Pete Payne on 12-01-2022 MCHC (RBC) [Mass/Vol] 32.1 g/dL 32-36 [facility] No Panel InformationOrdered By: Pete Payne on 12-01-2022 Estimated GFR (MDRD) Amer 59 mL/min >60 [facility] Comment on above: GFR Calc Estimated GFR (MDRD) Non-Af Amer 49 mL/min >60 [facility] Comment on above: Non- GFR Calc Platelets bldOrdered By: Ramsey Payne on 12-01-2022 Platelets (Bld) [#/Vol] 517 10*3/uL 150-450 [facility] Serum or plasma albumin karri urement (mass/volume)Ordered By: Pete Payne on 12-01-2022 Albumin [Mass/Vol] 2.8 g/dL 3.2-5.0 [facility] Serum or plasma albumin/glob ulin mass ratioOrdered By: Pete Payne on 12-01-2022 Albumin/Globulin [Mass ratio] 0.8 {ratio} 0.9-2.4 [facility] Serum or plasma calcium karri urement (mass/volume)Ordered By: Pete Payne on 12-01-2022 Calcium [Mass/Vol] 9.0 mg/dL 8.5-10.1 [facility] Serum or plasma creatinine m easurement (mass/volume)Ordered By: Pete Payne on 12-01-2022 Creatinine [Mass/Vol] 1.12 mg/dL 0.55-1.02 [facility] Comment on above: The validity of the calculated GFR & GFRAA in patients over 70 years has not been determined. Clinical correlation is essential. Serum or plasma urea nitroge n measurement (mass/volume)Ordered By: Pete Payne on 12-01-2022 Urea nitrogen [Mass/Vol] 18 mg/dL 7-18 [facility] Thin prep Papanicolaou smear with manual screeningOrdered By: [facility] Payne on 12-01-2022 Thin prep Papanicolaou smear with manual screening 15 U/L 15-37 [facility] Thin prep Papanicolaou smear with manual screening 9 5-15 [facility] Glucose Glucometer (BldC) [M ass/Vol]Ordered By: Dr. Crooks on 11-29-2022 Glucose [Mass/Vol] 95 mg/dL 74-106 [facility] Comment on above: MANAGEMENT OF PATIEN T CARE PER NURSING PROTOCOL Absolute lymphocyte countOrd ered By: Dr. Crooks on 11-28-2022 Lymphocytes Auto (Unsp spec) [#/Vol] 2.74 10*3/uL 0.83-4.51 [facility] Basophil percentageOrdered B y: Dr. Crooks on 11-28-2022 Basophils/100 WBC (Bld) 0.9 % 0-1 [facility] Chloride [Moles/Vol] 104 mmol/L 98-107 [facility] Eosinophils/100 WBC (Bld) 2.2 % 0-5 [facility] Glucose [Mass/Vol] 146 mg/dL 74-106 [facility] Comment on above: Fasting Glucose resu lt greater than or equal to 126 mg/dL suggests DIABETES MELLITUS per A.D.A. criteria. Neutrophils (Bld) [#/Vol] 7.4 10*3/uL 2.0-7.7 [facility] Neutrophils/100 WBC (Bld) 65.0 % 47-70 [facility] Potassium [Moles/Vol] 4.2 mmol/L 3.5-5.1 [facility] Sodium [Moles/Vol] 137 mmol/L 136-145 [facility] WBC (Bld) [#/Vol] 11.4 10*3/uL 4.4-11.0 [facility] Blood erythrocytes count (nu mber/volume)Ordered By: Dr. Crooks on 11-28-2022 RBC (Bld) [#/Vol] 3.62 10*6/uL 4.2-5.4 [facility] Blood hemoglobin measurement (mass/volume)Ordered By: Dr. Crooks on 11-28-2022 Hemoglobin (Bld) [Mass/Vol] 11.2 g/dL 12.0-15.0 [facility] Blood lymphocytes/100 leukoc ytesOrdered By: Dr. Crooks on 11-28-2022 Lymphocytes/100 WBC (Bld) 24.1 % 19-41 [facility] Blood monocytes/100 leukocyt esOrdered By: Dr. Crooks on 11-28-2022 Monocytes/100 WBC (Bld) 7.2 % 0-10 [facility] Blood platelet mean volumeOr dered By: Dr. Crooks on 11-28-2022 Platelet mean volume (Bld) [Entitic vol] 9.3 fL 6.2-12.0 [facility] Determination of erythrocyte mean corpuscular volume (MCV)Ordered By: Dr. Crooks on 11-28-2022 MCV (RBC) [Entitic vol] 96.4 fL 81-99 [facility] Glucose Glucometer (BldC) [M ass/Vol]Ordered By: Dr. Crooks on 11-28-2022 Glucose [Mass/Vol] 146 mg/dL 74-106 [facility] Comment on above: MANAGEMENT OF PATIEN T CARE PER NURSING PROTOCOL Hematocrit Auto (Bld) [Volum e fraction]Ordered By: Dr. Crooks on 11-28-2022 Hematocrit (Bld) [Volume fraction] 34.9 % 37-47 [facility] Laboratory - Chemistry and C hemistry - challengeOrdered By: Dr. Crooks on 11-28-2022 CO2 [Moles/Vol] 28.0 mmol/L 21.0-32.0 [facility] Urea nitrogen/Creatinine [Mass ratio] 18.2 mg/mg 10-20 [facility] Laboratory - Hematology and Cell countsOrdered By: Dr. Crooks on 11-28-2022 Erythrocyte distribution width (RBC) [Entitic vol] 43.3 fL 35.1-43.9 [facility] Erythrocyte distribution width (RBC) [Ratio] 12.4 % 11.6-14.6 [facility] Immature granulocytes/100 WBC (Bld) 0.600 % 0.0-0.9 [facility] Comment on above: IG% - Immature Granu locytes (promyelocytes, myelocytes and metamyelocytes) > 1% indicates that a LEFT SHIFT is Present. MCH (RBC) [Entitic mass] 30.9 pg 27.0-32.0 [facility] Nucleated RBC/100 WBC (Bld) [Ratio] 0 % 0-5 [facility] MCHC Auto (RBC) [Mass/Vol]Or dered By: Dr. Crooks on 11-28-2022 MCHC (RBC) [Mass/Vol] 32.1 g/dL 32-36 [facility] No Panel InformationOrdered By: Dr. Crooks on 11-28-2022 Estimated Creatinine Clearance Calc 37.22 ml/min [facility] Estimated GFR (MDRD) Amer 73 mL/min >60 [facility] Comment on above: GFR Calc Estimated GFR (MDRD) Non-Af Amer 61 mL/min >60 [facility] Comment on above: Non- GFR Calc Platelets bldOrdered By: Dr. Crooks on 11-28-2022 Platelets (Bld) [#/Vol] 445 10*3/uL 150-450 [facility] Serum or plasma calcium karri urement (mass/volume)Ordered By: Dr. Crooks on 11-28-2022 Calcium [Mass/Vol] 8.9 mg/dL 8.5-10.1 [facility] Serum or plasma creatinine m easurement (mass/volume)Ordered By: Dr. Crooks on 11-28-2022 Creatinine [Mass/Vol] 0.93 mg/dL 0.55-1.02 [facility] Comment on above: The validity of the calculated GFR & GFRAA in patients over 70 years has not been determined. Clinical correlation is essential. Serum or plasma urea nitroge n measurement (mass/volume)Ordered By: Dr. Crooks on 11-28-2022 Urea nitrogen [Mass/Vol] 17 mg/dL 7-18 [facility] Thin prep Papanicolaou smear with manual screeningOrdered By: Dr. Crooks on 11-28-2022 Thin prep Papanicolaou smear with manual screening 5 5-15 [facility] COVID-19 virus antigen assay Ordered By: Sylvester Crooks on 11-16-2022 SARS-CoV-2 (COVID-19) Ag IA.rapid Ql (Resp) [facility] COVID-19 virus antigen assay Ordered By: Dr. Crooks on 11-16-2022 SARS-CoV-2 (COVID-19) Ag IA.rapid Ql (Resp) [facility] Culture, urineOrdered By: Dr Néstor Crooks on 11-16-2022 Bacteria identified Cx Nom (U) Escherichia coli [facility] Bacteria identified Cx Nom (U) Klebsiella pneumoniae sp pneum [facility] Basophil percentageOrdered B y: Dr. Crooks on 11-14-2022 Basophil percentage 10-25 SEEN /hpf 0-5 [facility] Bilirubin Test strip Ql (U)O rdered By: Dr. Crooks on 11-14-2022 Bilirubin Ql (U) Negative Negative [facility] Culture, urineOrdered By: Raffi Crooks on 11-14-2022 Bacteria identified Cx Nom (U) Escherichia coli [facility] Bacteria identified Cx Nom (U) Klebsiella pneumoniae sp pneum [facility] Ketones Test strip Ql (U)Ord ered By: Dr. Crooks on 11-14-2022 Ketones Ql (U) Negative Negative [facility] Mucus LM Ql (Urine sed)Order ed By: Dr. Crooks on 11-14-2022 Mucus Ql (Urine sed) 0 SEEN /hpf [facility] Nitrite Test strip Ql (U)Ord ered By: Dr. Crooks on 11-14-2022 Nitrite Ql (U) Negative Negative [facility] No Panel InformationOrdered By: Dr. Crooks on 11-14-2022 Urine Transitional Epithelial Cells 0-5 SEEN /hpf 0-5 [facility] Protein Test strip Ql (U)Ord ered By: Dr. Crooks on 11-14-2022 Protein Ql (U) Negative Negative [facility] Squamous epithelial cells de tection in urine sediment by light microscopyOrdered By: Dr. Crooks on 11-14-2022 Epithelial cells.squamous LM Ql (Urine sed) 0-5 SEEN /hpf 5-10 [facility] Urine blood detectionOrdered By: Dr. Crooks on 11-14-2022 RBC Ql (U) 10 /ul Negative [facility] RBC Ql (U) 0-5 SEEN /hpf 0-5 [facility] Urine clarityOrdered By: Dr. Crooks on 11-14-2022 Clarity (U) Sl. Cloudy Clear [facility] Urine color determinationOrd ered By: Dr. Crooks on 11-14-2022 Color (U) Yellow Yellow [facility] Urine glucose detectionOrder ed By: Dr. Crooks on 11-14-2022 Glucose Ql (U) 100 mg/dl Normal [facility] Urine leukocyte esterase det ection by dipstickOrdered By: Dr. Crooks on 11-14-2022 Leukocyte esterase Test strip Ql (U) 100 /ul Negative [facility] Urine pHOrdered By: Dr. Crooks on 11-14-2022 pH (U) 6.0 [pH] 5.0 - 8.0 [facility] Urine sediment bacteria coun t by microscopy (number/high power field)Ordered By: Dr. Crooks on 11-14-2022 Bacteria LM.HPF (Urine sed) [#/Area] 1 /[HPF] None Seen [facility] Urine specific gravity measu rementOrdered By: Dr. Crooks on 11-14-2022 Specific gravity (U) [Rel density] 1.010 1.002-1.030 [facility] Urobilinogen Auto test strip Ql (U)Ordered By: Dr. Crooks on 11-14-2022 Urobilinogen Ql (U) Normal mg/dl Normal [facility] Absolute lymphocyte countOrd ered By: Dr. Betancur on 11-13-2022 Lymphocytes Auto (Unsp spec) [#/Vol] 3.26 10*3/uL 0.83-4.51 [facility] Basophil percentageOrdered B y: Dr. Betancur on 11-13-2022 Basophils/100 WBC (Bld) 0.7 % 0-1 [facility] Bilirubin [Mass/Vol] 1.00 mg/dL 0.20-1.00 [facility] Comment on above: For patients on eltr ombopag therapy, use of Dimension [place] TBIL is not recommended. Chloride [Moles/Vol] 106 mmol/L 98-107 [facility] Eosinophils/100 WBC (Bld) 1.7 % 0-5 [facility] Glucose [Mass/Vol] 150 mg/dL 74-106 [facility] Comment on above: Fasting Glucose resu lt greater than or equal to 126 mg/dL suggests DIABETES MELLITUS per A.D.A. criteria. Neutrophils (Bld) [#/Vol] 8.7 10*3/uL 2.0-7.7 [facility] Neutrophils/100 WBC (Bld) 66.3 % 47-70 [facility] Potassium [Moles/Vol] 3.9 mmol/L 3.5-5.1 [facility] Protein [Mass/Vol] 5.6 g/dL 6.4-8.2 [facility] Sodium [Moles/Vol] 132 mmol/L 136-145 [facility] WBC (Bld) [#/Vol] 13.2 10*3/uL 4.4-11.0 [facility] Blood erythrocytes count (nu mber/volume)Ordered By: Dr. Betancur on 11-13-2022 RBC (Bld) [#/Vol] 3.32 10*6/uL 4.2-5.4 [facility] Blood hemoglobin measurement (mass/volume)Ordered By: Dr. Betancur on 11-13-2022 Hemoglobin (Bld) [Mass/Vol] 10.5 g/dL 12.0-15.0 [facility] Blood lymphocytes/100 leukoc ytesOrdered By: Dr. Betancur on 11-13-2022 Lymphocytes/100 WBC (Bld) 24.7 % 19-41 [facility] Blood monocytes/100 leukocyt esOrdered By: Dr. Betancur on 11-13-2022 Monocytes/100 WBC (Bld) 6.2 % 0-10 [facility] Blood platelet mean volumeOr dered By: Dr. Betancur on 11-13-2022 Platelet mean volume (Bld) [Entitic vol] 8.6 fL 6.2-12.0 [facility] COVID-19 virus antigen assay Ordered By: Bernice Betancur on 11-13-2022 SARS-CoV-2 (COVID-19) Ag IA.rapid Ql (Resp) [facility] COVID-19 virus antigen assay Ordered By: Dr. Betancur on 11-13-2022 SARS-CoV-2 (COVID-19) Ag IA.rapid Ql (Resp) [facility] Determination of erythrocyte mean corpuscular volume (MCV)Ordered By: Dr. Betancur on 11-13-2022 MCV (RBC) [Entitic vol] 92.5 fL 81-99 [facility] Direct bilirubinOrdered By: Dr. Betancur on 11-13-2022 Bilirubin.direct [Mass/Vol] 0.34 mg/dL 0.00-0.30 [facility] Hematocrit Auto (Bld) [Volum e fraction]Ordered By: Dr. Betancur on 11-13-2022 Hematocrit (Bld) [Volume fraction] 30.7 % 37-47 [facility] Iron measurement (mass/mass) Ordered By: Dr. Betancur on 11-13-2022 Iron (Unsp spec) [Mass/Mass] 48 ug/dL 50-170 [facility] Laboratory - Chemistry and C hemistry - challengeOrdered By: Dr. Betancur on 11-13-2022 ALP [Catalytic activity/Vol] 35 U/L 45-117 [facility] ALT [Catalytic activity/Vol] 19 U/L 13-56 [facility] CO2 [Moles/Vol] 23.0 mmol/L 21.0-32.0 [facility] Cobalamin (Vitamin B12) [Mass/Vol] 583 pg/mL 211-911 [facility] Free T4 [Mass/Vol] 1.48 ng/dL 0.76-1.46 [facility] Globulin (S) [Mass/Vol] 2.8 g/dL 2.2-4.2 [facility] Urea nitrogen/Creatinine [Mass ratio] 17.2 mg/mg 10-20 [facility] Laboratory - Hematology and Cell countsOrdered By: Dr. Betancur on 11-13-2022 Erythrocyte distribution width (RBC) [Entitic vol] 42.5 fL 35.1-43.9 [facility] Erythrocyte distribution width (RBC) [Ratio] 12.7 % 11.6-14.6 [facility] Immature granulocytes/100 WBC (Bld) 0.400 % 0.0-0.9 [facility] Comment on above: IG% - Immature Granu locytes (promyelocytes, myelocytes and metamyelocytes) > 1% indicates that a LEFT SHIFT is Present. MCH (RBC) [Entitic mass] 31.6 pg 27.0-32.0 [facility] Nucleated RBC/100 WBC (Bld) [Ratio] 0 % 0-5 [facility] MCHC Auto (RBC) [Mass/Vol]Or dered By: Dr. Betancur on 11-13-2022 MCHC (RBC) [Mass/Vol] 34.2 g/dL 32-36 [facility] No Panel InformationOrdered By: Dr. Betancur on 11-13-2022 Estimated Creatinine Clearance Calc 35.38 ml/min [facility] Estimated GFR (MDRD) Amer 103 mL/min >60 [facility] Comment on above: GFR Calc Estimated GFR (MDRD) Non-Af Amer 85 mL/min >60 [facility] Comment on above: Non- GFR Calc Thyroid Stimulating Hormone (TSH) 1.14 uIU/mL 0.358-3.74 [facility] Total Iron Binding Capacity 214 ug/dL 250-450 [facility] Platelets bldOrdered By: Dr. Betancur on 11-13-2022 Platelets (Bld) [#/Vol] 370 10*3/uL 150-450 [facility] Serum or plasma albumin karri urement (mass/volume)Ordered By: Dr. Betancur on 11-13-2022 Albumin [Mass/Vol] 2.8 g/dL 3.2-5.0 [facility] Serum or plasma calcium karri urement (mass/volume)Ordered By: Dr. Betancur on 11-13-2022 Calcium [Mass/Vol] 8.3 mg/dL 8.5-10.1 [facility] Serum or plasma creatinine m easurement (mass/volume)Ordered By: Dr. Betancur on 11-13-2022 Creatinine [Mass/Vol] 0.70 mg/dL 0.55-1.02 [facility] Comment on above: The validity of the calculated GFR & GFRAA in patients over 70 years has not been determined. Clinical correlation is essential. Serum or plasma ferritin jolanta surement (mass/volume)Ordered By: Dr. Betancur on 11-13-2022 Ferritin [Mass/Vol] 195 ng/mL 8-252 [facility] Serum or plasma urea nitroge n measurement (mass/volume)Ordered By: Dr. Betancur on 11-13-2022 Urea nitrogen [Mass/Vol] 12 mg/dL 7-18 [facility] Thin prep Papanicolaou smear with manual screeningOrdered By: Dr. Betancur on 11-13-2022 Thin prep Papanicolaou smear with manual screening 16 U/L 15-37 [facility] Thin prep Papanicolaou smear with manual screening 3 5-15 [facility] Glucose Glucometer (BldC) [M ass/Vol]Ordered By: Dr. Brody on 11-12-2022 Glucose [Mass/Vol] 121 mg/dL 74-106 [facility] Comment on above: MANAGEMENT OF PATIEN T CARE PER NURSING PROTOCOL No Panel InformationOrdered By: Dr. Brody on 11-12-2022 Vitamin D 25-Hydroxy 43.8 ng/mL [facility] Comment on above: Vitamin D 25(OH) Sta tus Range Deficiency <20 ng/mL (50nmol/L) Insufficiency 20 - 30 ng/mL (50 - 75 nmol/L) Sufficiency 30 - 100 ng/mL (75 - 250 nmol/L) Toxicity >100 ng/mL (>250 nmol/L) Serum or plasma cortisol jolanta surement (mass/volume)Ordered By: Dr. Brody on 11-12-2022 Cortisol [Mass/Vol] 28.20 ug/dL 3.44-22.45 [facility] Comment on above: Adult (AM) 5.27 - 22 .45 ug/dL Adult (PM) 3.44 - 16.76 ug/dLPlease note revised CORTISOL reference range effective 2019. Whole blood hemoglobin A1c/t otal hemoglobin ratio (mass fraction)Ordered By: Dr. Betancur on 11-12-2022 HbA1c (Bld) [Mass fraction] 7.0 % 3.8-5.6 [facility] Comment on above: Normal < 5.7 % Predi abetic 5.7 - 6.4 % Diabetic >or= 6.5 % Please note range changes. Absolute lymphocyte countOrd ered By: Dr. Ewing on 11-11-2022 Lymphocytes Auto (Unsp spec) [#/Vol] 4.35 10*3/uL 0.83-4.51 [facility] Basophil percentageOrdered B y: Dr. Ewing on 11-11-2022 Basophil percentage 0 SEEN /hpf 0-5 [facility] Ammonia (P) [Moles/Vol] 16.0 umol/L 11-32 [facility] Basophils/100 WBC (Bld) 0.6 % 0-1 [facility] Bilirubin [Mass/Vol] 1.90 mg/dL 0.20-1.00 [facility] Comment on above: For patients on eltr ombopag therapy, use of Dimension [place] TBIL is not recommended. Chloride [Moles/Vol] 91 mmol/L 98-107 [facility] Eosinophils/100 WBC (Bld) 0.9 % 0-5 [facility] Glucose [Mass/Vol] 159 mg/dL 74-106 [facility] Comment on above: Fasting Glucose resu lt greater than or equal to 126 mg/dL suggests DIABETES MELLITUS per A.D.A. criteria. Neutrophils (Bld) [#/Vol] 8.3 10*3/uL 2.0-7.7 [facility] Neutrophils/100 WBC (Bld) 59.4 % 47-70 [facility] Potassium [Moles/Vol] 3.4 mmol/L 3.5-5.1 [facility] Protein [Mass/Vol] 7.4 g/dL 6.4-8.2 [facility] Sodium [Moles/Vol] 127 mmol/L 136-145 [facility] WBC (Bld) [#/Vol] 13.9 10*3/uL 4.4-11.0 [facility] Bilirubin Test strip Ql (U)O rdered By: Dr. Ewing on 11-11-2022 Bilirubin Ql (U) Negative Negative [facility] Blood erythrocytes count (nu mber/volume)Ordered By: Dr. Ewing on 11-11-2022 RBC (Bld) [#/Vol] 4.23 10*6/uL 4.2-5.4 [facility] Blood hemoglobin measurement (mass/volume)Ordered By: Dr. Ewing on 11-11-2022 Hemoglobin (Bld) [Mass/Vol] 13.5 g/dL 12.0-15.0 [facility] Blood lymphocytes/100 leukoc ytesOrdered By: Dr. Ewing on 11-11-2022 Lymphocytes/100 WBC (Bld) 31.3 % 19-41 [facility] Blood monocytes/100 leukocyt esOrdered By: Dr. Ewing on 11-11-2022 Monocytes/100 WBC (Bld) 7.4 % 0-10 [facility] Blood platelet mean volumeOr dered By: Dr. Ewing on 11-11-2022 Platelet mean volume (Bld) [Entitic vol] 8.8 fL 6.2-12.0 [facility] Determination of erythrocyte mean corpuscular volume (MCV)Ordered By: Dr. Ewing on 11-11-2022 MCV (RBC) [Entitic vol] 88.7 fL 81-99 [facility] Direct bilirubinOrdered By: Dr. Ewing on 11-11-2022 Bilirubin.direct [Mass/Vol] 0.47 mg/dL 0.00-0.30 [facility] Hematocrit Auto (Bld) [Volum e fraction]Ordered By: Dr. Ewing on 11-11-2022 Hematocrit (Bld) [Volume fraction] 37.5 % 37-47 [facility] Ketones Test strip Ql (U)Ord ered By: Dr. Ewing on 11-11-2022 Ketones Ql (U) 5 mg/dl Negative [facility] Laboratory - Chemistry and C hemistry - challengeOrdered By: Dr. Brody on 11-11-2022 Sodium (U) [Moles/Vol] 8 mmol/L Not Establ. [facility] Magnesium [Mass/Vol] 1.6 mg/dL 1.6-2.6 [facility] Laboratory - Chemistry and C hemistry - challengeOrdered By: Dr. Ewing on 11-11-2022 ALP [Catalytic activity/Vol] 45 U/L 45-117 [facility] ALT [Catalytic activity/Vol] 30 U/L 13-56 [facility] CO2 [Moles/Vol] 28.0 mmol/L 21.0-32.0 [facility] Globulin (S) [Mass/Vol] 3.5 g/dL 2.2-4.2 [facility] Urea nitrogen/Creatinine [Mass ratio] 16.2 mg/mg 10-20 [facility] Laboratory - Hematology and Cell countsOrdered By: Dr. Ewing on 11-11-2022 Erythrocyte distribution width (RBC) [Entitic vol] 39.2 fL 35.1-43.9 [facility] Erythrocyte distribution width (RBC) [Ratio] 12.0 % 11.6-14.6 [facility] Immature granulocytes/100 WBC (Bld) 0.400 % 0.0-0.9 [facility] Comment on above: IG% - Immature Granu locytes (promyelocytes, myelocytes and metamyelocytes) > 1% indicates that a LEFT SHIFT is Present. MCH (RBC) [Entitic mass] 31.9 pg 27.0-32.0 [facility] Nucleated RBC/100 WBC (Bld) [Ratio] 0 % 0-5 [facility] MCHC Auto (RBC) [Mass/Vol]Or dered By: Dr. Ewing on 11-11-2022 MCHC (RBC) [Mass/Vol] 36.0 g/dL 32-36 [facility] Mucus LM Ql (Urine sed)Order ed By: Dr. Ewing on 11-11-2022 Mucus Ql (Urine sed) 0 SEEN /hpf [facility] Nitrite Test strip Ql (U)Ord ered By: Dr. Ewing on 11-11-2022 Nitrite Ql (U) Negative Negative [facility] No Panel InformationOrdered By: Dr. Ewing on 11-11-2022 Estimated Creatinine Clearance Calc 27.90 ml/min [facility] Estimated GFR (MDRD) Amer 50 mL/min >60 [facility] Comment on above: GFR Calc Estimated GFR (MDRD) Non-Af Amer 41 mL/min >60 [facility] Comment on above: Non- GFR Calc Troponin I High Sensitivity 13 pg/mL 3.0-54.0 [facility] Comment on above: Please Note: New Denia t Units and Gender Specific Reference Ranges. For more information see Policy Stat Procedure [place] High Sensitivity Troponin (TNIH) and attachments. Platelets bldOrdered By: Dr. Ewing on 11-11-2022 Platelets (Bld) [#/Vol] 506 10*3/uL 150-450 [facility] Protein Test strip Ql (U)Ord ered By: Dr. Ewing on 11-11-2022 Protein Ql (U) Negative Negative [facility] Serum or plasma albumin karri urement (mass/volume)Ordered By: Dr. Ewing on 11-11-2022 Albumin [Mass/Vol] 3.9 g/dL 3.2-5.0 [facility] Serum or plasma calcium karri urement (mass/volume)Ordered By: Dr. Ewing on 11-11-2022 Calcium [Mass/Vol] 9.9 mg/dL 8.5-10.1 [facility] Serum or plasma creatinine m easurement (mass/volume)Ordered By: Dr. Ewing on 11-11-2022 Creatinine [Mass/Vol] 1.30 mg/dL 0.55-1.02 [facility] Comment on above: The validity of the calculated GFR & GFRAA in patients over 70 years has not been determined. Clinical correlation is essential. Serum or plasma urea nitroge n measurement (mass/volume)Ordered By: Dr. Ewing on 11-11-2022 Urea nitrogen [Mass/Vol] 21 mg/dL 7-18 [facility] Serum or plasma uric acid me asurement (mass/volume)Ordered By: Dr. Brody on 11-11-2022 Urate [Mass/Vol] 4.3 mg/dL 2.6-6.0 [facility] Comment on above: The drugs N-Acetylcy steine and Metamizole may falsely depress this assay. Squamous epithelial cells de tection in urine sediment by light microscopyOrdered By: Dr. Ewing on 11-11-2022 Epithelial cells.squamous LM Ql (Urine sed) 0 SEEN /hpf 5-10 [facility] Thin prep Papanicolaou smear with manual screeningOrdered By: Dr. Brody on 11-11-2022 Thin prep Papanicolaou smear with manual screening 277 mOsm/KG 280-301 [facility] Thin prep Papanicolaou smear with manual screeningOrdered By: Dr. Ewing on 11-11-2022 Thin prep Papanicolaou smear with manual screening 25 U/L 15-37 [facility] Thin prep Papanicolaou smear with manual screening 8 5-15 [facility] Urine blood detectionOrdered By: Dr. Ewing on 11-11-2022 RBC Ql (U) Negative Negative [facility] RBC Ql (U) 0 SEEN /hpf 0-5 [facility] Urine clarityOrdered By: Dr. Ewing on 11-11-2022 Clarity (U) Clear Clear [facility] Urine color determinationOrd ered By: Dr. Ewing on 11-11-2022 Color (U) Yellow Yellow [facility] Urine glucose detectionOrder ed By: Dr. Ewing on 11-11-2022 Glucose Ql (U) Normal mg/dl Normal [facility] Urine leukocyte esterase det ection by dipstickOrdered By: Dr. Ewing on 11-11-2022 Leukocyte esterase Test strip Ql (U) Negative Negative [facility] Urine osmolality measurement Ordered By: Dr. Brody on 11-11-2022 Osmolality (U) [Osmolality] 227 mOsm/KG >50 [facility] Comment on above: Normal Urine Referen ce Ranges Random: 50 - 1200 mOsm/kg H20 depending on fluid intake Random: >850 mOsm/kg after 12 hour fluid restriction 24 hour: ~300 - 900 mOsm/kg H2O Urine pHOrdered By: Dr. Atiya bender on 11-11-2022 pH (U) 6.0 [pH] 5.0 - 8.0 [facility] Urine sediment bacteria coun t by microscopy (number/high power field)Ordered By: Dr. Ewing on 11-11-2022 Bacteria LM.HPF (Urine sed) [#/Area] 0 /[HPF] None Seen [facility] Urine specific gravity measu rementOrdered By: Dr. Ewing on 11-11-2022 Specific gravity (U) [Rel density] 1.010 1.002-1.030 [facility] Urobilinogen Auto test strip Ql (U)Ordered By: Dr. Ewing on 11-11-2022 Urobilinogen Ql (U) Normal mg/dl Normal [facility] Vital Signs Date Time Vital Sign Value Performing Clinician Faci lity 11-04-2024 03:00-0400 Respiratory rate 16 /min Dr. Pete Payne MD Work Phone: [facility] 11-04-2024 00:21-0400 Body temperature 98.2 [degF] Dr. Pete Payne MD Work Phone: [facility] 11-04-2024 00:21-0400 Diastolic blood pressure 60 mm[Hg] Dr. Pete Payne MD Work Phone: [facility] 11-04-2024 00:21-0400 Heart rate 84 /min Dr. Pete Payne MD Work Phone: [facility] 11-04-2024 00:21-0400 SaO2% (BldA) [Mass fraction] 97 % Dr. Pete Payne MD Work Phone: [facility] 11-04-2024 00:21-0400 Systolic blood pressure 143 mm[Hg] Dr. Pete Payne MD Work Phone: [facility] 11-03-2024 21:08-0400 Body height 147.[address] Pete Payne MD Work Phone: [facility] 11-03-2024 21:08-0400 Body mass index (BMI) [Ratio] 29.4 kg/m2 Dr. Pete Payne MD Work Phone: [facility] 11-03-2024 21:08-0400 Body weight 63.[address] Pete Payne MD Work Phone: [facility] 07-25-2023 13:00-0500 Body temperature 97.7 [degF] Dr. Pete Payne Work Phone: [facility] 07-25-2023 13:00-0500 Diastolic blood pressure 74 mm[Hg] Dr. Pete Payne Work Phone: [facility] 07-25-2023 13:00-0500 Heart rate 86 /min Dr. Pete Payne Work Phone: [facility] 07-25-2023 13:00-0500 Respiratory rate 16 /min Dr. Pete Payne Work Phone: [facility] 07-25-2023 13:00-0500 SaO2% (BldA) [Mass fraction] 98 % Dr. Pete Payne Work Phone: [facility] 07-25-2023 13:00-0500 Systolic blood pressure 136 mm[Hg] Dr. Pete Payne Work Phone: [facility] 07-25-2023 08:00-0500 Body height 147.[address] Pete Payne Work Phone: [facility] 07-25-2023 08:00-0500 Body mass index (BMI) [Ratio] 29.2 kg/m2 Dr. Pete Payne Work Phone: [facility] 07-25-2023 08:00-0500 Body weight 63.[address] Pete Payne Work Phone: [facility] 01-20-2023 03:50-0400 Diastolic blood pressure 61 mm[Hg] Dr. Nancy Ewing Work Phone: [facility] 01-20-2023 03:50-0400 Heart rate 78 /min Dr. Nancy Ewing Work Phone: [facility] 01-20-2023 03:50-0400 Respiratory rate 18 /min Dr. Nancy Ewing Work Phone: [facility] 01-20-2023 03:50-0400 SaO2% (BldA) [Mass fraction] 97 % Dr. Nancy Ewing Work Phone: [facility] 01-20-2023 03:50-0400 Systolic blood pressure 146 mm[Hg] Dr. Nancy Ewing Work Phone: 7(760)396-408782 [place] [address] 01-20-2023 02:01-0400 Body height 147.[address] Nancy Ewing Work Phone: [facility] 01-20-2023 02:01-0400 Body mass index (BMI) [Ratio] 26.9 kg/m2 Dr. Nancy Ewing Work Phone: [facility] 01-20-2023 02:01-0400 Body temperature 97.5 [degF] Dr. Nancy Ewing Work Phone: [facility] 01-20-2023 02:01-0400 Body weight 58.[address] Nancy Ewing Work Phone: [facility] 11-29-2022 09:42-0400 Heart rate 92 /min Dr. Nancy Ewing Work Phone: [facility] 11-29-2022 09:42-0400 Respiratory rate 16 /min Dr. Nancy Ewing Work Phone: [facility] 11-29-2022 09:42-0400 SaO2% (BldA) [Mass fraction] 97 % Dr. Nancy Ewing Work Phone: [facility] 11-29-2022 09:41-0400 Body temperature 97.6 [degF] Dr. Nancy Ewing Work Phone: [facility] 11-29-2022 09:41-0400 Diastolic blood pressure 59 mm[Hg] Dr. Nancy Ewing Work Phone: [facility] 11-29-2022 09:41-0400 Systolic blood pressure 144 mm[Hg] Dr. Nancy Ewing Work Phone: [facility] 11-28-2022 13:27-0400 Body temperature 97.1 [degF] Dr. Nancy Ewing Work Phone: [facility] 11-28-2022 13:27-0400 Diastolic blood pressure 61 mm[Hg] Dr. Nancy Ewing Work Phone: [facility] 11-28-2022 13:27-0400 Heart rate 65 /min Dr. Nancy Ewing Work Phone: [facility] 11-28-2022 13:27-0400 Respiratory rate 16 /min Dr. Nancy Ewing Work Phone: [facility] 11-28-2022 13:27-0400 SaO2% (BldA) [Mass fraction] 95 % Dr. Nancy Ewing Work Phone: 5(282)796-926789 [place] [address] 11-28-2022 13:27-0400 Systolic blood pressure 133 mm[Hg] Dr. Nancy Ewing Work Phone: 0(742)898-906289 [place] [address] 11-26-2022 14:37-0400 Body height 147.[address] Nancy Ewing Work Phone: 4(755)806-308768 [address] 11-26-2022 14:37-0400 Body weight 54.[address] Nancy Ewing Work Phone: 3(887)014-679489 [place] [address] 11-25-2022 12:48-0400 Body mass index (BMI) [Ratio] 25 kg/m2 Dr. Nancy Ewing Work Phone: 4(337)308-778289 [place] [address] 11-13-2022 14:35-0400 Body temperature 98 [degF] Dr. Nancy Ewing Work Phone: 9(313)439-291889 [place] [address] 11-13-2022 14:35-0400 Diastolic blood pressure 48 mm[Hg] Dr. Nancy Ewing Work Phone: 9(472)057-948489 [place] [address] 11-13-2022 14:35-0400 Heart rate 71 /min Dr. Nancy Ewing Work Phone: [facility] 11-13-2022 14:35-0400 Respiratory rate 18 /min Dr. Nancy Ewing Work Phone: [facility] 11-13-2022 14:35-0400 SaO2% (BldA) [Mass fraction] 100 % Dr. Nancy Ewing Work Phone: 7(734)462-345889 [place] [address] 11-13-2022 14:35-0400 Systolic blood pressure 123 mm[Hg] Dr. Nancy Ewing Work Phone: 1(248)529-366979 [place] [address] 11-12-2022 12:32-0400 Body height 147.[address] Nancy Ewing Work Phone: 3(745)949-243979 [place] [address] 11-12-2022 12:32-0400 Body weight 55.[address] Nancy Ewing Work Phone: 9(574)957-777179 [place] [address] 11-11-2022 22:57-0400 Body mass index (BMI) [Ratio] 25.5 kg/m2 Dr. Nancy Ewing Work Phone: 4(888)641-545679 [place] [address] 11-11-2022 21:44-0400 Body temperature 97.8 [degF] Dr. Nancy Ewing Work Phone: 3(430)958-457479 [place] [address] 11-11-2022 21:44-0400 Diastolic blood pressure 60 mm[Hg] Dr. Nancy Ewing Work Phone: 5(621)124-433179 [place] [address] 11-11-2022 21:44-0400 Heart rate 75 /min Dr. Nancy Ewing Work Phone: 4(507)833-142479 [place] [address] 11-11-2022 21:44-0400 Respiratory rate 17 /min Dr. Nancy Ewing Work Phone: 0(346)936-727979 [place] [address] 11-11-2022 21:44-0400 SaO2% (BldA) [Mass fraction] 100 % Dr. Nancy Ewing Work Phone: 2(935)461-116379 [place] [address] 11-11-2022 21:44-0400 Systolic blood pressure 134 mm[Hg] Dr. Nancy Ewing Work Phone: 0(941)803-445279 [place] [address] 11-11-2022 16:37-0400 Body height 147.[address] Nancy Ewing Work Phone: 7(856)177-925179 [place] [address] 11-11-2022 16:37-0400 Body mass index (BMI) [Ratio] 26.2 kg/m2 Dr. Nancy Ewing Work Phone: [facility] 11-11-2022 16:37-0400 Body weight 56.[address] Nancy Ewing Work Phone: [facility] Encounters Encounter Date Encounter Type Care Provider Facility Start: 12-26-2024 ambulatory Pete ROBERTS Fa cility:[facility] Start: 12-26-2024 Registered Referred Pete Virk Start: 12-13-2024 End: 12-13-[address] Pete Payne MD Work Phone: [facility] Work Phone: Start: 12-13-2024 End: 12-13-2024 Departed Referred Pete Virk Start: 12-13-2024 Registered Referred Pete Virk Start: 12-13-2024 End: 12-13-2024 ambulatory Pete Payne Facility:[facility] Start: 11-22-2024 End: 11-22-[address] Pete Payne MD Work Phone: [facility] Work Phone: Start: 11-22-2024 End: 11-22-2024 Departed Referred Pete Virk Start: 11-22-2024 Registered Referred Pete Virk Start: 11-22-2024 End: 11-22-2024 ambulatory Pete ROBERTS Facility:[facility] Start: 11-14-2024 End: 11-14-[address] Pete Payne MD Work Phone: [facility] Work Phone: Start: 11-14-2024 End: 11-14-2024 Departed Referred Pete Virk Start: 11-14-2024 End: 11-14-2024 ambulatory Pete ROBERTS Facility:[facility] Start: 11-03-2024 End: 11-04-2024 Emergency department patient visit Dr. Pete Payne MD Work Phone: -Emergency Department Work Phone: Start: 10-21-2024 End: 10-21-2024 ambulatory Pete Payne Facility[place] Start: 10-21-2024 End: 10-21-2024 Patient encounter procedure Poppy Cadenanickie CONSULTING SALES MANAGERJavier -[facility] Work Phone: Start: 10-17-2024 End: 10-17-[address] Pete Payne MD Work Phone: [facility] Work Phone: Start: 10-17-2024 End: 10-17-2024 Departed Referred Pete Virk Start: 10-17-2024 Registered Referred Pete Virk Start: 10-17-2024 End: 10-17-2024 ambulatory Pete ROBERTS Facility:[facility] Start: 10-10-2024 End: 10-10-[address] Pete Payne MD Work Phone: [facility] Work Phone: Start: 10-10-2024 End: 10-10-2024 Departed Referred Pete Virk Start: 10-10-2024 Registered Referred Pete Virk Start: 10-10-2024 End: 10-10-2024 ambulatory Pete ROBERTS Facility:[facility] Start: 10-06-2024 End: 10-06-[address] Pete Payne MD Work Phone: [facility] Work Phone: Start: 10-06-2024 End: 10-06-2024 Departed Referred Pete Virk Start: 10-06-2024 Registered Referred Pete Virk Start: 10-06-2024 End: 10-06-2024 ambulatory Pete ROBERTS Facility:[facility] Start: 10-03-2024 End: 10-03-[address] Pete Payne MD Work Phone: [facility] Work Phone: Start: 10-03-2024 End: 10-03-2024 Departed Referred Pete Virk Start: 10-03-2024 End: 10-03-2024 ambulatory Pete ROBERTS Facility:[facility] Start: 09-20-2024 End: 09-20-2024 ambulatory Celestealexisanne Payne Facility:[facility] Start: 09-20-2024 End: 09-20-[address] Pete Payne MD -[facility] Work Phone: Start: 09-01-2024 End: 09-01-2024 ambulatory Celestegeena Payne Facility:[facility] Start: 09-01-2024 End: 09-01-2024 Patient encounter procedure Mateo CRANDALL [facility] Work Phone: Start: 08-23-2024 ambulatory Pete ROBERTS Fa cility:[facility] Start: 08-23-2024 Registered Referred Pete Virk Start: 07-11-2024 End: 07-11-2024 Departed Referred Pete Virk Start: 07-11-2024 End: 07-11-2024 ambulatory Pete ROBERTS Facility:[facility] Start: 06-21-2024 End: 06-21-2024 ambulatory Poppy Mccracken NP Facility:[facility] Start: 06-21-2024 End: 06-21-2024 Patient encounter procedure Poppy Mccracken [facility]ly [facility] Work Phone: Start: 05-31-2024 End: 05-31-2024 ambulatory Efewongbe Oleghe Facility:[facility] Start: 05-30-2024 End: 05-30-2024 ambulatory Efewongbe Oleghe OLS Facility:[facility] Start: 05-24-2024 End: 05-24-2024 ambulatory Efewongbe Oleghe OLS Facility:[facility] Start: 05-03-2024 End: 05-03-2024 ambulatory Poppy Mccracken CONSULTING SALES MANAGER Facility:[facility] Start: 04-18-2024 End: 04-18-2024 ambulatory Efewongbe Oleghe OLS Facility:[facility] Start: 03-22-2024 End: 03-22-2024 ambulatory Efewongbe Oleghe Facility:[facility] Start: 03-07-2024 End: 03-07-2024 ambulatory Efewongbe Oleghe OLS Facility:[facility] Start: 03-03-2024 End: 03-03-2024 ambulatory Efewongbe Oleghe Facility:[facility] Start: 02-25-2024 End: 02-25-2024 ambulatory Efewongbe Oleghe Facility:[facility] Start: 02-23-2024 End: 02-23-2024 ambulatory Efewongbe Oleghe OLS Facility:[facility] Start: 02-17-2024 End: 02-17-2024 ambulatory Efewongbe Oleghe Facility:[facility] Start: 01-26-2024 End: 01-26-2024 ambulatory Efewongbe Oleghe Facility:[facility] Start: 01-25-2024 End: 01-25-2024 ambulatory Efewongbe Oleghe OLS Facility:[facility] Start: 01-08-2024 End: 01-08-2024 ambulatory Efewongbe Oleghe Facility:[facility] Start: 08-25-2023 End: 08-25-[address] Pete Payne Work Phone: [facility] Work Phone: Start: 08-25-2023 End: 08-25-[address] Pete Payne Work Phone: [facility] Start: 07-25-2023 End: 07-25-2023 Emergency department patient visit Dr. Pete Payne Work Phone: [facility]-Emergency Department Work Phone: Start: 07-02-2023 End: 07-02-[address] Pete Payne Work Phone: [facility] Work Phone: Start: 06-02-2023 End: 06-02-[address] Pete Payne Work Phone: [facility] Work Phone: Start: 05-04-2023 End: 05-04-[address] Pete Payne Work Phone: [facility] Work Phone: Start: 03-31-2023 End: 03-31-[address] Pete Payne Work Phone: [facility] Work Phone: Start: 03-16-2023 End: 03-16-[address] Ptee Payne Work Phone: [facility] Work Phone: Start: 03-16-2023 End: 03-16-[address] Pete Payen Work Phone: [facility] Start: 03-16-[address] Madison Payne Work Phone: [facility] Start: 03-14-2023 End: 03-14-[address] Pete Payne Work Phone: [facility] Work Phone: Start: 03-12-2023 End: 03-12-[address] Pete Payne Work Phone: [facility] Work Phone: Start: 03-12-2023 End: 03-12-[address] Pete Payne Work Phone: [facility] Start: 01-27-2023 End: 01-27-[address] Pete Payne Work Phone: [facility] Work Phone: Start: 01-20-2023 End: 01-20-2023 Emergency department patient visit Dr. Nancy Ewing Work Phone: [facility]-Emergency Department Work Phone: Start: 12-23-2022 End: 12-23-[address] Pete Payne Work Phone: [facility] Work Phone: Start: 12-02-2022 End: 12-02-[address] Nancy Ewing Work Phone: [facility] Work Phone: Start: 12-01-2022 End: 12-01-[address] Nancy Ewing Work Phone: [facility] Work Phone: Start: 12-01-2022 End: 12-01-[address] Nancy Ewing Work Phone: [facility] Start: 11-24-2022 End: 11-24-[address] Nancy Ewing Work Phone: [facility] Work Phone: Start: 11-24-2022 End: 11-24-[address] Nancy Ewing Work Phone: [facility] Start: 11-13-2022 End: 11-29-2022 Evaluation and management of inpatient Dr. Nancy Ewing Work Phone: [facility]-Transitional Care Unit Start: 11-13-2022 Non-patient / Non-visit Dr. Christophe Ewing Work Phone: [facility] Start: 11-12-2022 Non-patient / Non-visit Dr. Christophe Ewing Work Phone: [facility] Start: 11-11-2022 Non-patient / Non-visit Dr. Christophe Ewing Work Phone: [facility] Start: 11-11-2022 End: 11-13-2022 Evaluation and management of inpatient Dr. Nancy Ewing Work Phone: [facility]-Medical Surgical 3 Procedures Date Procedure Procedure Detail [...] Activity Detail Author Start: 11-04-2024 [facility] Start: 11-03-2024 Simple repair f/e/e/ n/l/m 2.6cm-5.0 cm RPR F/E/E/N/L/M 2.6-5.0 CM [facility] Start: 07-25-2023 [facility] Start: 01-02-2023 Blood chemistry [facility] Start: 12-26-2022 Blood chemistry [facility] Start: 12-19-2022 Blood chemistry [facility] Start: 12-12-2022 Blood chemistry [facility] Start: 12-05-2022 Blood chemistry [facility] Start: 11-29-2022 Patient discharge [facility] Start: 11-28-2022 Development of care plan [facility] Start: 11-20-2022 [facility] Start: 11-20-2022 [facility] Start: 11-19-2022 Palliative care [facility] Start: 11-19-2022 [facility] Start: 11-18-2022 [facility] Start: 11-17-2022 [facility] Start: 11-16-2022 [facility] Start: 11-15-2022 [facility] Start: 11-14-2022 Developing a treatment plan [facility] Start: 11-14-2022 Speech therapy management [facility] Start: 11-14-2022 Development of care plan [facility] Start: 11-14-2022 End: 11-14-2022 [facility] Start: 11-13-2022 Patient referral to dietitian [facility] Start: 11-13-2022 Speech therapy assessment [facility] Start: 11-13-2022 Following clinical p athway protocol [facility] Start: 11-13-2022 Admission procedure [facility] Start: 11-13-2022 Measuring intake and output [facility] Start: 11-13-2022 Patient referral to dietitian [facility] Start: 11-13-2022 Referral to occupati onal therapist [facility] Start: 11-13-2022 Referral to service [facility] Start: 11-13-2022 Verification routine [facility] Start: 11-13-2022 Vital signs measurements [facility] Start: 11-13-2022 [facility] Start: 11-13-2022 Patient discharge [facility] Start: 11-12-2022 Vitamin D, 25-hydrox y measurement [facility] Start: 11-12-2022 [facility] Start: 11-12-2022 Patient referral to dietitian [facility] Start: 11-11-2022 Blood chemistry [facility] Start: 11-11-2022 Following clinical p athway protocol [facility] Start: 11-11-2022 Assessment of risk o f venous thromboembolism [facility] Start: 11-11-2022 Insertion of cathete r into peripheral vein [facility] Start: 11-11-2022 Oxygen therapy [facility] Start: 11-11-2022 Providing care accor ding to standard [facility] Start: 11-11-2022 Provision of activit y privileges [facility] Start: 11-11-2022 Referral to occupati onal therapist [facility] Start: 11-11-2022 Referral to service [facility] Start: 11-11-2022 [facility] Start: 11-11-2022 Verification routine [facility] Start: 11-11-2022 Admission procedure [facility] Start: 11-11-2022 Patient referral to dietitian [facility] Alanine aminotransfe rase [Enzymatic activity/volume] in Serum or Plasma [facility] Albumin [Mass/volume ] in Serum or Plasma [facility] Alkaline phosphatase [Enzymatic activity/volume] in Serum or Plasma [facility] Anion gap measurement [facility] Anion gap measurement [facility] Anion gap measurement [facility] Anion gap measurement [facility] Anion gap measurement [facility] Anion gap measurement [facility] Aspartate aminotrans ferase [Enzymatic activity/volume] in Serum or Plasma [facility] Bilirubin, total measurement [facility] Bilirubin.direct [Mass/volume] in Serum or Plasma [facility] BUN/Creatinine ratio [facility] BUN/Creatinine ratio [facility] BUN/Creatinine ratio [facility] BUN/Creatinine ratio [facility] BUN/Creatinine ratio [facility] BUN/Creatinine ratio [facility] Calcium [Mass/volume ] in Serum or Plasma [facility] Calcium [Mass/volume ] in Serum or Plasma [facility] Calcium [Mass/volume ] in Serum or Plasma [facility] Calcium [Mass/volume ] in Serum or Plasma [facility] Calcium [Mass/volume ] in Serum or Plasma [facility] Calcium [Mass/volume ] in Serum or Plasma [facility] Carbon dioxide, tota l [Moles/volume] in Serum or Plasma [facility] Carbon dioxide, tota l [Moles/volume] in Serum or Plasma [facility] Carbon dioxide, tota l [Moles/volume] in Serum or Plasma [facility] Carbon dioxide, tota l [Moles/volume] in Serum or Plasma [facility] Carbon dioxide, tota l [Moles/volume] in Serum or Plasma [facility] Carbon dioxide, tota l [Moles/volume] in Serum or Plasma [facility] Chloride [Moles/volu me] in Serum or Plasma [facility] Chloride [Moles/volu me] in Serum or Plasma [facility] Chloride [Moles/volu me] in Serum or Plasma [facility] Chloride [Moles/volu me] in Serum or Plasma [facility] Chloride [Moles/volu me] in Serum or Plasma [facility] Chloride [Moles/volu me] in Serum or Plasma [facility] Cortisol [Mass/volum e] in Serum or Plasma [facility] Creatinine [Moles/vo lume] in Serum or Plasma [facility] Creatinine [Moles/vo lume] in Serum or Plasma [facility] Creatinine [Moles/vo lume] in Serum or Plasma [facility] Creatinine [Moles/vo lume] in Serum or Plasma [facility] Creatinine [Moles/vo lume] in Serum or Plasma [facility] Creatinine [Moles/vo lume] in Serum or Plasma [facility] Glucose [Mass/volume ] in Serum or Plasma [facility] Glucose [Mass/volume ] in Serum or Plasma [facility] Glucose [Mass/volume ] in Serum or Plasma [facility] Glucose [Mass/volume ] in Serum or Plasma [facility] Glucose [Mass/volume ] in Serum or Plasma [facility] Glucose [Mass/volume ] in Serum or Plasma [facility] Hematocrit [Volume F raction] of Blood [facility] Hematocrit [Volume F raction] of Blood [facility] Hematocrit [Volume F raction] of Blood [facility] Hematocrit [Volume F raction] of Blood [facility] Hematocrit [Volume F raction] of Blood [facility] Hematocrit [Volume F raction] of Blood [facility] Hemoglobin [Mass/vol ume] in Blood [facility] Hemoglobin [Mass/vol ume] in Blood [facility] Hemoglobin [Mass/vol ume] in Blood [facility] Hemoglobin [Mass/vol ume] in Blood [facility] Hemoglobin [Mass/vol ume] in Blood [facility] Hemoglobin [Mass/vol ume] in Blood [facility] Leukocytes [#/volume ] in Blood [facility] Leukocytes [#/volume ] in Blood [facility] Leukocytes [#/volume ] in Blood [facility] Leukocytes [#/volume ] in Blood [facility] Leukocytes [#/volume ] in Blood [facility] Leukocytes [#/volume ] in Blood [facility] Magnesium [Mass/volu me] in Serum or Plasma [facility] Mean corpuscular hem oglobin concentration determination [facility] Mean corpuscular hem oglobin concentration determination [facility] Mean corpuscular hem oglobin concentration determination [facility] Mean corpuscular hem oglobin concentration determination [facility] Mean corpuscular hem oglobin concentration determination [facility] Mean corpuscular hem oglobin concentration determination [facility] Mean corpuscular hem oglobin determination [facility] Mean corpuscular hem oglobin determination [facility] Mean corpuscular hem oglobin determination [facility] Mean corpuscular hem oglobin determination [facility] Mean corpuscular hem oglobin determination [facility] Mean corpuscular hem oglobin determination [facility] Measurement of renal function [facility] Measurement of renal function [facility] Measurement of renal function [facility] Measurement of renal function [facility] Measurement of renal function [facility] Measurement of renal function [facility] Neutrophil count [facility] Neutrophil count [facility] Neutrophil count [facility] Neutrophil count [facility] Neutrophil count [facility] Neutrophil count [facility] Neutrophil percent differential count [facility] Neutrophil percent differential count [facility] Neutrophil percent differential count [facility] Neutrophil percent differential count [facility] Neutrophil percent differential count [facility] Neutrophil percent differential count [facility] Patient Education [facility] Work Phone: Patient referral [facility] Work Phone: Platelets [#/volume] in Blood [facility] Platelets [#/volume] in Blood [facility] Platelets [#/volume] in Blood [facility] Platelets [#/volume] in Blood [facility] Platelets [#/volume] in Blood [facility] Platelets [#/volume] in Blood [facility] Potassium [Moles/vol ume] in Serum or Plasma [facility] Potassium [Moles/vol ume] in Serum or Plasma [facility] Potassium [Moles/vol ume] in Serum or Plasma [facility] Potassium [Moles/vol ume] in Serum or Plasma [facility] Potassium [Moles/vol ume] in Serum or Plasma [facility] Potassium [Moles/vol ume] in Serum or Plasma [facility] Red blood cell count [facility] Red blood cell count [facility] Red blood cell count [facility] Red blood cell count [facility] Red blood cell count [facility] Red blood cell count [facility] Red cell distributio n width determination [facility] Red cell distributio n width determination [facility] Red cell distributio n width determination [facility] Red cell distributio n width determination [facility] Red cell distributio n width determination [facility] Red cell distributio n width determination [facility] Sodium [Moles/volume ] in Serum or Plasma [facility] Sodium [Moles/volume ] in Serum or Plasma [facility] Sodium [Moles/volume ] in Serum or Plasma [facility] Sodium [Moles/volume ] in Serum or Plasma [facility] Sodium [Moles/volume ] in Serum or Plasma [facility] Sodium [Moles/volume ] in Serum or Plasma [facility] Total protein measurement [facility] Urate [Mass/volume] in Serum or Plasma [facility] Urea nitrogen [Mass/ volume] in Serum or Plasma [facility] Urea nitrogen [Mass/ volume] in Serum or Plasma [facility] Urea nitrogen [Mass/ volume] in Serum or Plasma [facility] Urea nitrogen [Mass/ volume] in Serum or Plasma [facility] Urea nitrogen [Mass/ volume] in Serum or Plasma [facility] Urea nitrogen [Mass/ volume] in Serum or Plasma [facility] Immunizations Immunization Date Immunization Notes Care Provider [facility] 07-03-2022 Covid Pfizer Bivalen t Booster Dr. Nancy Ewing Work Phone: [facility] 06-06-2021 Covid (Pfizer) Dr. Nancy Ewing Work Phone: [facility] 08-16-2020 Covid (Pfizer) Dr. Nancy Ewing Work Phone: [facility] 07-26-2020 Covid (Pfizer) Dr. Nancy Ewing Work Phone: [facility] 07-20-2012 pneumococcal conjuga te vaccine, [address] Nancy Ewing Work Phone: [facility] 07-20-2001 pneumococcal vaccine , unspecified formulation Dr. Nancy Ewing Work Phone: [facility] Payers Date Payer Category Payer Medicaid [id number] 2024 Self-pay [id number] 2015 Private Health Insurance [id number] 2001 Medicare MEDICARE PART A B [id number] Unknown AARP MCR ADV [id number] Unknown [id number] [id number]2 Unknown [id number] 2.16.840.1.086039.3.579.2.462 Unknown [id number] 2.16.840.1.944563.3.579.2.462 Unknown [id number] 2.16.840.1.464219.3.579.2.462 Unknown [id number] 2.16.840.1.868144.3.579.2.462 Unknown [id number] 2.16.840.1.187063.3.579.2.462 Unknown [id number] 2.16.840.1.050719.3.579.2.462 Unknown [id number] 2.16.840.1.227186.3.579.2.462 Unknown [id number] 2.16.840.1.196974.3.579.2.462 Unknown [id number] 2.16.840.1.816170.3.579.2.462 Unknown [id number] 2.16.840.1.668291.3.579.2.462 Unknown [id number] 2.16.840.1.904759.3.579.2.462 Unknown [id number] 2.16.840.1.296776.3.579.2.462 Unknown [id number] 2.16.840.1.377960.3.579.2.462 Unknown [id number] 2.16.840.1.618054.3.579.2.462 Unknown [id number] 2.16.840.1.016665.3.579.2.462 Unknown [id number] 2.16840.1.106302.3.579.2.462 Unknown [id number] 2.16840.1.446778.3.579.2.462 Unknown [id number] 2.16840.1.187002.3.579.2.462 Unknown [id number] 2.840.1.574287.3.579.2.462 Unknown [id number] 2.840.1.476235.3.579.2.462 Unknown [id number] 2.840.1.456279.3.579.2.462 Unknown [id number] 2.840.1.899317.3.579.2.462 Unknown [id number] 2.16840.1.174587.3.579.2.462 Unknown [id number] 2.16840.1.575037.3.579.2.462 Unknown [id number] 2.840.1.091518.3.579.2.462 Unknown [id number] 2.840.1.747567.3.579.2.462 Unknown [id number] 2.840.1.500246.3.579.2.462 Unknown [id number] 2.840.1.015114.3.579.2.462 Social History Date Type Detail Facility Start: 11-11-2022 End: 07-25-2023 Tobacco smoking status MAIS Unknown if ever smoked [facility] Start: 11-11-2022 Rare [facility] Start: 11-11-2022 None [facility] Start: 11-11-2022 Homeless [facility] Start: 11-11-2022 Non-smoker [facility] Start: 1935 Sex Assigned At Female W [facility] Start: 07-25-2023 End: 11-03-2024 Tobacco smoking status NHIS Never smoked tobacco (finding) [facility] Start: 10-19-2024 End: 11-08-2024 Sex Female (finding) [facility] Goals Date Patient Goal Desired Activity /State Functional Status Date Assessment Result Facility 11-29-2022 Functional status Ambulates [facility] Work Phone: 11-28-2022 Functional status Ambulates [facility] Work Phone: 11-13-2022 Functional status 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 [facility] Work Phone: Mental Status Date Assessment Result Facility 07-25-2023 Cognitive function Voice/Name [facility] Work Phone: 11-29-2022 Cognitive function Voice/Name [facility] Work Phone: 11-27-2022 Cognitive function Voice/Name [facility] Work Phone: 11-26-2022 Cognitive function Appropriate;Cooperativ e [facility] Work Phone: 11-13-2022 Cognitive function Voice/Name [facility] Work Phone: Clinical Notes 11-12-2022 to 11-04-2024 Note Date & Type Note Facility 11-04-2024 Discharge summary Note Date/Time November 04, 2024 12:36am [facility] Medical Records Department [address] [place] [address] Emergency Department Summary 11/03/24 MR#: [id number] Acct: [id number] Name: MAXIME AMARAL Rep #:[id number] : 1935 89 From: Alirio Patel PCP: Dr. Pete Payne MD Status:R EG ER Location: ED HPI HPI - Fall History of Present Illness Chief Complaint: Fall Informant: patient and family Narrative Narrative: Patient brought in by EMS from [facility] witnessed fall head injury. Patient history of dementia ambulatory per son. Mostly wheelchair, can weight-bear transfer. From paperwork gaited bowel with walking. Reports she did walk with a walker minimally a week ago. Reported getting off the commode she turneddown hitting her head on a radiator. No anticoagulants. She is DNR CC as of 2022 from paperwork. She has baseline per son. [facility] Medical History Dry eye syndrome of [...] clinician: N/A This note was generated with [employer] dictation software. It may contain incorrectwords, spelling, and punctuation that were not noted in checking the note beforesigning. Radiography Diagnostic Testing: Clinical Impression(s) from Imaging Studies Shoulder X-Ray 11/03/24 21:48 IMPRESSION: NO ACUTE FRACTURE OR DISLOCATION. Reading Location[facility] Brain CT 11/03/24 22:10 IMPRESSION: CHRONIC CHANGES. NO ACUTE FINDINGS. Reading Location: [facility] Cervical Spine CT 11/03/24 22:10 IMPRESSION: NO ACUTE CERVICAL FRACTURE. DEGENERATIVE CHANGES. No acute fracture or subluxation. Reading [facility] Facial/Sinus 11/03/24 22:10 IMPRESSION: Small soft tissue laceration along the right supraorbital region. No acute fracture. Reading Location[facility] Discharge Plan Triage Chief Complaint: Fall Other [...] in 5 to 7 days. Print Language: Nepali Disposition Disposition: Home, Self Care What to do if you have Problems For any increased pain, shortness of breath, bleeding, nausea or vomiting, chestpain, or any unexpected problems, contact your Primary Care Provider. Call [facility] ([phone]) or report to the closest Emergency Room. Call 911 if necessary. 11/04/24 003 <Electronically signed by Alirio Patel> Cosigner Signature (if applicable): CC: Dr. Pete Payne MD ~ Signed [facility] Work Phone: 1(543) 617-855304-18-2025 Discharge summary [facility] Medical Records Department [address] [place] [address] Emergency Department Summary 11/03/24 MR#: [id number] Acct: [id number] Name: MAXIME AMARAL Rep #:[id number] : 1935 89 From: Alirio Patel PCP: Dr. Pete Payne MD Status:R EG ER Location: ED HPI HPI - Fall History of Present Illness Chief Complaint: Fall Informant: patient and family Narrative Narrative: Patient brought in by EMS from [facility] witnessed fall head injury. Patient history of dementia ambulatory per son. Mostly wheelchair, can weight- bear transfer. From paperwork gaited bowel withwalking. Reports she did walk with a walker minimally a week ago. Reported getting off the commode she turneddown hitting her head on a radiator. No anticoagulants. She is DNR CC as of 2022 from paperwork. She has baseline per son. [facility] Medical History Dry eye syndrome of [...] clinician: N/A This note was generated with [employer] dictation software. It may contain incorrectwords, spelling, and punctuation that were not noted in checking the note beforesigning. Radiography Diagnostic Testing: Clinical Impression(s) from Imaging Studies Shoulder X-Ray 11/03/24 21:48 IMPRESSION: NO ACUTE FRACTURE OR DISLOCATION. Reading Location: [facility] Brain CT 11/03/24 22:10 IMPRESSION: CHRONIC CHANGES. NO ACUTE FINDINGS. Reading Location: [facility] Cervical Spine CT 11/03/24 22:10 IMPRESSION: [...] in 5 to 7 days. Print Language: Nepali Disposition Disposition: Home, Self Care What to do if you have Problems For any increased pain, shortness of breath, bleeding, nausea or vomiting, chestpain, or any unexpected problems, contact your Primary Care Provider. Call [facility] ([phone]) or report tothe closest Emergency Room. Call 911 if necessary. 11/04/24 0036 Cosigner Signature (if applicable): CC: Dr. Pete Payne MD ~ Signed [facility]04-17-2025 Radiology Diagnostic study note [facility] Imaging Services [address] [place], [place] [id number] Spine Cervical without Contras MR#: [id number] Acct: [id number] Name: MAXIME AMARAL Rep #: [id number] : 1935 F 89 From: Steve Sotelo DO PCP: Dr. Pete Payne MD Status: R EG ER Study:Spine Cervical without Contras Date of Exam: 11/03/24 Exam# [id number] Ordering Dr: Alirio Edward DO PROCEDURE: SPINE [...] No acute fracture or subluxation. Reading Location: [facility] CC: Dr. Pete Payne MD; Dr. Alirio Edward DO ~ Senior Ios Developer: Signed [facility]04-17-2025 Radiology Diagnostic study note [facility] Imaging Services [address] [place] [address] Sinus/Facial Bone MR#: [id number] Acct: [id number] Name: MAXIME AMARAL Rep #: [id number] : 1935 F 89 From: Steve Sotelo DO PCP: Dr. Pete Payne MD Status: R EG ER Study:Sinus/Facial Bone Date of Exam: Exam# [id number] Ordering Dr: Alirio Edward DO PROCEDURE: SINUS/FACIAL [...] supraorbital region. No acute fracture. Reading [facility] CC: Dr. Pete Payne MD; Dr. Alirio Edward DO ~ Senior Ios Developer: Signed [facility]04-17-2025 Radiology Diagnostic study note [facility] Imaging Services [address] [place], [place] [id number] Brain/Head without Contrast MR#: [id number] Acct: [id number] Name: MAXIME AMARAL Rep #: [id number] : 1935 F 89 From: Steve Sotelo DO PCP: Dr. Pete Payne MD Status: R EG ER Study:Brain/Head without Contrast Date of Exa m: 11/03/24 Exam# [id number] Ordering Dr: Alirio Edward DO PROCEDURE: BRAIN/HEAD [...] CHRONIC CHANGES. NO ACUTE FINDINGS. Reading [facility] CC: Dr. Pete Payne MD; Dr. Alirio Edward DO ~ Senior Ios Developer: Signed [facility]04-17-2025 Radiology Diagnostic study note [facility] Imaging Services [address] [place], [place] [id number] Shoulder min 2 Views MR#: [id number] Acct: [id number] Name: MAXIME AMARAL Rep #: [id number] : 1935 F 89 From: Steve Sotelo DO PCP: Dr. Pete Payne MD Status: R ER Study:Shoulder min 2 Views Date of Exam: 11/03/24 Exam# [id number] Ordering Dr: Alirio Edward DO PROCEDURE: SHOULDER MIN 2 VIEWS 11/03/2024 REASON FOR EXAM: INJURY TECHNIQUE: 3 view(s) of the right shoulder COMPARISON: None FINDINGS: Bones: No acute fracture. Joints: Normal alignment of the acromioclavicular and glenohumeral joints. Soft tissues: Soft tissues are unremarkable. Other: RAD/Shoulder min 2 Views IMPRESSION: NO ACUTE FRACTURE OR DISLOCATION. Reading [facility] CC: Dr. Pete Payne MD; Dr. Alirio Edward DO ~ Senior Ios Developer: Signed [facility]01-06-2024 Discharge summary Author Jos Rush [facility] July 25, 2023 8:48am Note Date/Time July 25, 2023 8: 48am [facility] Medical Records Department [address] [place] [address] Emergency Department Summary 07/25/23 MR#: [id number] Acct: [id number] Name: MAXIME AMARAL Rep #:[id number] : 1935 87 From: Jos Rush DO PCP: Dr. Pete Payne MD Status:R EG ER Location: ED HPI History of Present Illness Chief Complaint: Fall Informant: patient and SNF Narrative Narrative: Patient is a 87-year-old female with history of hypertension hyperlipidemia hypothyroidism type 2 diabetes and debility as well as Alzheimer's disease. Sheis typically A&O x 1. FDC states that she was found on her [...] this time but otherwise denies any symptoms [facility] Medical History Alzheimer's disease, unspecified CKD (chronic [...] orthopedics Dr. Villalba. He recommends just an Amrvel wrap at this time as the CT scan does not reveal an acute fracture and her physical exam does not indicate any type of missed fracture or ligamentous or patellar injury. Therefore this was placed and the patient is otherwise safe to return to the prison Radiography Diagnostic Testing: Clinical Impression(s) from Imaging [...] 6:40 EST Reading Location ID and State: [facility] / [place] Tel , Service support , Hip/Pelvis X-Ray 07/25/23 05:47 IMPRESSION: No acute pelvic or left hip fracture demonstrated. Electronically Signed: Gabrielle Gallegos MD at 6:45 EST Reading Location ID and State: [facility] / [place] Tel , Service support , Lower Extremity CT 07/25/23 06:44 IMPRESSION: 1. Small amount of presumed hemarthrosis or other complex mildly dense fluid in the suprapatellar bursa. No lipohemarthrosis or convincing acute fracture. 2. Irregular posterior-medial tibial plateau corner is not typical of acute fracture. Demineralization and degenerative changes. Electronically Signed: Gabrielle Gallegos MD at 8:18 EST Reading Location ID and State: [facility] / [place] Tel , Service support , Left hip [...] your Primary Care Provider. Call [facility] ([phone]) or report to the closest Emergency Room. Call 911 if necessary. 07/25/23 0848 <Electronically signed by Jos Rush DO> Cosigner Signature (if applicable): CC: Dr. Pete Payne MD ~ Signed [facility] Work Phone: 1(382) 660-588207-04-2023 Discharge summary Author Jos [facility] January 20, 2023 4:32am Note Date/Time January 20, 2023 3:43a m [facility] Medical Records Department [address] [place] [address] Emergency Department Summary 01/20/23 MR#: [id number] Acct: [id number] Name: MAXIME AMARAL Ellie Rep #:[id number] : 1935 87 From: Jos Rush DO PCP: Dr. Pete Payne MD Status:R EG ER Location: ED HPI History of Present Illness Chief Complaint: Fall Informant: patient and EMS Limited: dementia Narrative Narrative: Patient is a 87-year-old female with past medical history of dementia who stays in a prison in their dementia unit. Nursing reports that patient was reportedly wandering this evening and had a fall. They found the patient awake and alert but with trauma to her head/face. They deny any blood thinners but states secondary to the fall and patient complaining of pain in her knees and shoulders she was sent in for evaluation [facility] Medical History Alzheimer's disease, unspecified Depression, [...] 3:16 EDT Reading Location ID and State: [address] [place] [address] Tel , Service support , Cervical Spine CT 01/20/23 02:21 IMPRESSION: Multilevel degenerative changes, as described above. Electronically Signed: Netta Delarosa MD at 3:18 EDT Reading Location ID and State: [facility] / [place] Tel , Service support , Knee X-Ray 01/20/23 02:21 IMPRESSION: Moderate to severe degenerative arthrosis worse in the left knee more prominent in the medial femorotibial joints. Electronically Signed: Netta Delarosa MD at 3:35 EDT Reading Location ID and State: [facility] / [place] Tel , Service support , Pelvis X-Ray 01/20/23 02:21 IMPRESSION: Degenerative arthrosis. No evidence of displaced pelvic or hip fracture. Electronically Signed: Netta Delarosa MD at 3:32 EDT Reading Location ID and State: [facility] / [place] Tel , Service support , Shoulder X-Ray 01/20/23 02:21 IMPRESSION: Severe narrowing of the subacromial space in both shoulders consistent with complete bilateral rotator cuff tear . Mild degenerative arthrosis in both shoulders. Electronically Signed: Netta Delarosa MD at 3:36 EDT Reading Location ID and State: [facility] / [place] Tel , Service support , Pelvis x-rays [...] your Primary Care Provider. Call [facility] ([phone]) or report to the closest Emergency Room. Call 911 if necessary. 01/20/23431 <Electronically signed by Jos Rush DO> Cosigner Signature (if applicable): CC: Dr. Pete Payne MD ~ Signed [facility] Work Phone: 1(633) 451-889305-10-[address] Crooks [facility] November 26, 2022 9:10pm Note Date/Time November 26, 2022 9:10p m [facility] Medical Records Department [address] [place] [address] Transfer to [facility] MR#: [id number] Acct: [id number] Name: MAXIME AMARAL Ellie Rep #:[id number] : 1935 87 From: Sylvester Crooks MD PCP: [facility] BENITO Status:ADM IN Certification of patient admission REQUIRED AT TIME OF ADMISSION. I CERTIFY THAT POST-HOSPITAL ECF SERVICES ARE REQUIRED TO BE GIVEN ON AN IN-PATIENT BASIS BECAUSE OF THE ABOVE NAMED PATIENT'S NEED FOR [facility] CARE ON A CONTINUING BASIS FOR THE CONDITION(S) FOR WHICH HE/SHE WAS RECEIVING IN-PATIENT HOSPITAL SERVICES PRIOR TO HIS/HER TRANSFER TO [facility]. 11/26/222109<Electronically signed by ySlvester Crooks MD> Diet Diet Order/Speech Therapy: 11/13/22 [...] for rehabilitation, strengthening, prior to discharge to [facility]. * Debility - PT/OT. * [...] - Bupropion XL 150mg daily, stable chronic pss delivery professional use, GDR not recommended. * Alzheimer Disease [...] Dao ; Tanisha Henriquez ; Britany White CONSULTING SALES MANAGER Instructions Additional Instructions / Restrictions: Discharge to [facility] 11/29/2022, intermediate. Discharge Orders/Prescriptions Prescriptions: New [...] Crooks MD> Cosigner Signature (if applicable): CC: CONSULTING SALES MANAGER-C Magnolia Tafoya; CONSULTING SALES MANAGER-C Tanisha Henriquez; CONSULTING SALES MANAGER-C Britany White; Dr. Steven Dean DO; Dr. Fany Dao MD; ALANNAH BENITO ~ [facility] Work Phone: [phone]) 389-667405-10-[address] Crooks [facility] November 26, 2022 9:09pm Note Date/Time November 26, 2022 9:05p [facility] Medical Records Department [address] [place] [address] Discharge Summary 11/26/222103 MR#: [id number] Acct: [id number] Name: MAXIME AMARAL Rep #:[id number] : 1935 87 From: Sylvester Crooks MD PCP: ALANNAH BENITO Status:ADM IN Location: [facility] TCU10-1 Providers Date of Admission: 11/13/22 [...] for rehabilitation, strengthening, prior to discharge to [facility]. * Debility - PT/OT. * [...] - Bupropion XL 150mg daily, stable chronic halfway use, GDR not recommended. * Alzheimer Disease [...] for rehabilitation, strengthening, prior to discharge to [facility]. Discharge to [facility] 11/29/2022, intermediate. Physical Exam Const alert [...] Document 11/26/22 14:47 HUSEYIN (Rec: 11/26/22 14:47 [facility] [id number]) Nutrition Malnutrition Evidence of Malnutrition Exists Yes [...] and Uncontrolled pain Additional Instructions: Discharge to [facility] 11/29/2022, intermediate. Meaningful Use Info Meaningful Use Diagnoses (Choose all that apply): None applicable Discharge Plan Admission Admit Date/Time: 11/13/22 16:43 Primary Reason for Your Visit: Debility. Attending Provider: Sylvester Crooks Chi Primary Care Provider: ALANNAH BENITO Consulting Providers: Magnolia Tafoya ; Steven Dean ; Fany Dao ; Tanisha Henriquez ; Britany White CONSULTING SALES MANAGER Instructions Additional Instructions / Restrictions: Discharge to [facility] 11/29/2022, intermediate. Discharge Orders/Prescriptions Prescriptions: New [...] Dr. Sylvester Crooks MD; ALANNAH BENITO~ Signed [facility] Work Phone: [phone]) 943-933405-03-2023 History and physical note Author Dr. Crooks [facility] November 19, 2022 5:00pm Note Date/Time November 13, 2022 7:4 6pm [facility] Medical Records Department [address] [place] [address] History & Physical Exam 11/13/221939 MR#: [id number] Acct: [id number] Name: MAXIME AMARAL Rep #:[id number] : 1935 87 From: Sylvester Crooks MD PCP: ALANNAH BENITO Status:ADM IN Location: [place] [id number] [facility] - General General Date of Admission: 11/13/22 Date of Service: 11/13/22 Chief Complaint: Here for rehabilitation. HPI Narrative 11/11/2022 MAXIME AMARAL, is a 87 Female who presents to [facility] Emergency Department with nausea, vomiting, diarrhea. 11/11/2022 [...] for rehabilitation, strengthening, prior to discharge to [facility]. [facility] Medical History Alzheimer's disease, unspecified Depression, [...] for rehabilitation, strengthening, prior to discharge to [facility]. * Debility - PT/OT. * [...] - Bupropion XL 150mg daily, stable chronic halfway use, GDR not recommended. * Alzheimer Disease [...] Sylvester Crooks MD; ALANNAH BENITO ~* Signed [facility] Work Phone: [phone]) 476-274104-28-[address] Crooks [facility] November 14, 2022 7:27pm Note Date/Time November 14, 2022 3:5 3pm [facility] Medical Records Department [address] [place] [address] Progress Note - Pharmacy 11/14/22 1531 MR#: [id number] Acct: [id number] Name: MAXIME AMARAL Rep #:[id number] : 1935 87 From: Roselyn Garzon PCP: ALANNAH BNEITO Status:ADM IN Location: [facility] TCU RX Drug Regimen Review Subjective: TCU [...] by Sylvester Crooks MD> CC: ~ Signed [facility] Work Phone: [phone]) [phone] Betancur [facility] November 13, 2022 2:06pm Note Date/Time November 13, 2022 1:5 6pm [facility] Medical Records Department [address] [place] [address] Transfer to [facility] MR#: [id number] Acct: [id number] Name: MAXIME AMARAL Rep #:[id number] : 1935 87 From: Bernice Betancur MD PCP: ALANNAH BENITO Status:ADM IN Certification of patient admission REQUIRED AT TIME OF ADMISSION. I CERTIFY THAT POST-HOSPITAL ECF SERVICES ARE REQUIRED TO BE GIVEN ON AN IN-PATIENT BASIS BECAUSE OF THE ABOVE NAMED PATIENT'S NEED FOR [facility] CARE ON A CONTINUING BASIS FOR THE [...] with hypothyroidism and dementia who presented to [facility] 11/11/2022 with a sodium of 127 at [...] in before D/C Order can be placed): [facility] 11/13/22 1406 <Electronically signed by Bernice Betancur MD> Cosigner Signature (if applicable): CC: Dr. Ryder Brody MD; ALANNAH BENITO ~ [facility] Work Phone: 1(989) 489-406604-26-[address] Betancur [facility] November 12, 2022 4:53pm Note Date/Time November 12, 2022 7:0 0am [facility] Medical Records Department [address] [place] [address] Progress Note - Hospitalist 11/12/22 0659 MR#: [id number] Acct: [id number] Name: MAXIME AMARAL Rep #:[id number] : 1935 87 From: Bernice Betancur MD PCP: ALANNAH BENITO Status:ADM IN [facility] Reason for Visit Reason for Visit: Diagnoses [...] % (Auto) 59.4, Lymph % (Auto) 31.3, Brooke% (Auto) 7.4, Eos % (Auto) 0.9, Baso [...] Clarity Clear, Urine pH 6.0, Ur Specific [place] 1.010, Urine Protein Negative, Urine Glucose (UA) [...] % (Auto) Cancelled, Lymph % (Auto) Cancelled, Brooke % (Auto) Cancelled, Eos % (Auto) Cancelled, [...] Drop Cells Cancelled, Ovalocytes Cancelled, Stomatocytes Cancelled, [place] Bodies Cancelled, [place] Cells Cancelled, Bite Cells Cancelled, Crenated Cell [...] % (Auto) 63.6, Lymph % (Auto) 26.7, Brooke % (Auto) 7.1, Eos % (Auto) 1.4, [...] Lovenox ordered. Charges/Coding Visit Charges Inpatient E&M: 31744 Subs Hosp L2 11/12/223 <Electronically signed by Bernice Betancur MD> Cosigner Signature (if applicable): CC: ~ Signed [facility] Work Phone: [phone]) 310-275604-26-[address] Ewing [facility] November 11, 2022 11:41pm Note Date/Time November 11, 2022 5:3 3pm [facility] Medical Records Department [address] [place] [address] Emergency Department Summary 11/11/22 MR#: [id number] Acct: [id number] Name: MAXIME AMARAL Rep #:[id number] : 1935 87 From: Nancy Ewing MD PCP: ALANNAH BENITO Status:ADM IN Location: MS3 LD785-1 HPI History of Present Illness Chief Complaint: Nausea/Vomiting/Diarrhea Detail of Chief Complaint: Generalized weakness Informant: patient and family Onset/Context/Timing Onset: Weeks Narrative Narrative: Patient presents via EMS from assisted living at [facility]. Son is at bedside and provides much [...] body pain. She denies fever or cough. [facility] Medical History Alzheimer's disease, unspecified Depression, [...] Medical decision making narrative: Patient placed on park worker supervisor. EKG obtained to evaluate for cardiac arrhythmia/ischemia. [...] % (Auto) 59.4 Lymph % (Auto) 31.3 Brooke % (Auto) 7.4 Eos % (Auto) 0.9 [...] Color Urine Clarity Urine pH Ur Specific [place] Urine Protein Urine Glucose (UA) Urine Ketones Urine Occult Blood Urine Nitrite Urine Bilirubin Urine Urobilinogen Ur Leukocyte Esterase Urine RBC Urine WBC Ur Squamous Epith Cells Urine Bacteria Urine Mucus 11/11/22 19:47 WBC RBC Hgb Hct MCV MCH MCHC RDW Std Deviation RDW Coeff of Kristal Plt Count MPV Immature Gran % (Auto) Neut % (Auto) Lymph % (Auto) Brooke % (Auto) Eos % (Auto) Baso % [...] Clarity Clear Urine pH 6.0 Ur Specific [place] 1.010 Urine Protein Negative Urine Glucose (UA) [...] [Non-Staff] - Disposition Disposition: Acute Care Hospital [facility] What to do if you have Problems For any increased pain, shortness of breath, bleeding, nausea or vomiting, chestpain, or any unexpected problems, contact your Primary Care Provider. Call [facility] ([phone]) or report to the closest Emergency Room. Call 911 if necessary. 11/11/222340 <Electronically signed by Nancy Ewing MD> Cosigner Signature (if applicable): CC: ALANNAH BENITO ~ Signed [facility] Work Phone: [phone]) [phone] History and physical note Author Dr. Brody [facility] November 11, 2022 10:26pm Note Date/Time November 11, 2022 9:3 3pm [facility] Medical Records Department [address] [place] [address] H&P Exam - Hospitalist 11/11/222132 MR#: [id number] Acct: [id number] Name: MAXIME AMARAL Rep #:[id number] : 1935 87 From: Ryder Brody MD PCP: ALANNAH BENITO Status:ADM IN Location: [facility] RB318-5 HPI - General General Date of Admission: 11/11/22 Date of Service: 11/11/22 Chief Complaint: Abnormal labs HPI Narrative MAXIME AMARAL, is a 87 F with a significant history of hypothyroidism and dementia; and who lives at assisted medicine facility at [facility] presenting to the emergency department with abnormal [...] the emergency department patient could not urinate. [facility] Medical History Alzheimer's disease, unspecified Depression, [...] % (Auto) 59.4, Lymph % (Auto) 31.3, Brooke % (Auto) 7.4, Eos % (Auto) 0.9, [...] Clarity Clear, Urine pH 6.0, Ur Specific [place] 1.010, Urine Protein Negative, Urine Glucose (UA) [...] Lovenox ordered. Charges/Coding Visit Charges Inpatient E&M: 25449 Init Hosp L3 11/11/222225 <Electronically signed by Ryder Brody MD> Cosigner Signature (if applicable): CC: Dr. Ryder Brody MD; ALANNAH BENITO~ Signed [facility] Work Phone: Evaluation note* Diagnosis Onset Date Resolution Status Declining functional status acute Hypokalemia acute Hyponatremia acute Weakness acute Hypertension [facility] Work Phone: Evaluation note* Diagnosis Onset Date Resolution Status Declining functional status acute Hyponatremia acute Hypertension chronic Alzheimer disease acute Debility acute Dehydration acute Depression acute Diabetes mellitus acute Hyperlipidemia acute Hyponatremia acute Hypothyroidism acute Hypertension chronic [facility] Work Phone: Evaluation note* Diagnosis Onset Date Resolution Status Declining functional status acute Hyponatremia acute Hypertension chronic Alzheimer disease acute Debility acute Depression acute Diabetes mellitus acute Hyperlipidemia acute Hypothyroidism acute Hypertension chronic Dehydration resolved Hyponatremia resolved [facility] Work Phone: Evaluation noteNo assessment information available [facility] Work Phone: History and physical note Author Dr. Brody [facility] November 11, 2022 10:26pm Note Date/Time November 11, 2022 9:3 3pm [facility] Medical Records Department [address] [place] [address] H&P Exam - Hospitalist 11/11/222132 MR#: [id number] Acct: [id number] Name: MAXIME AMARAL Rep #:[id number] : 1935 87 From: Ryder Brody MD PCP: ALANNAH BENITO Status:ADM IN Location: [facility] ET137-0 HPI - General General Date of Admission: 11/11/22 Date of Service: 11/11/22 Chief Complaint: Abnormal labs HPI Jose AMARAL, is a 87 F with a significant history of hypothyroidism and dementia; and who lives at assisted medicine facility at [facility] presenting to the emergency department with abnormal [...] the emergency department patient could not urinate. [facility] Medical History Alzheimer's disease, unspecified Depression, [...] % (Auto) 59.4, Lymph % (Auto) 31.3, Brooke % (Auto) 7.4, Eos % (Auto) 0.9, [...] Clarity Clear, Urine pH 6.0, Ur Specific [place] 1.010, Urine Protein Negative, Urine Glucose (UA) [...] Lovenox ordered. Charges/Coding Visit Charges Inpatient E&M: 55034 Init Hosp L3 11/11/222225 <Electronically signed by Ryder Brody MD> Cosigner Signature (if applicable): CC: Dr. Ryder Brody MD; ALANNAH BENITO~ Signed [facility] Work Phone: Hospital Discharge instructions Additional Instructions CT head face and neck negative. Right shoulder x-ray negative. 7 sutures placed. Have removed in 5 to 7 days.[facility] Work Phone: Reason for referral (narrative)No reason for referral information availableWProMed[facility] Work Phone: Chief Complaint and Reason [...] Complaint MONTHLY EXAM UNWITNESSED FALL MONTHLY EXAM [facility] WORK MONTHLY EXAM NURIS HOME LABWORK Chief Complaint MONTHLY EXAM MONTHLY EXAM MONTHLY EXAM FALL Chief Complaint MONTHLY EXAM MONTHLY EXAM FALL LABWORK Chief Complaint Admit Date NEW CONCERN June 21, 2024 5 :08pm [facility] July 11 5:00am [facility] August 23, 2024 5:00am MONTHLY EXAM September 01, 2024 11:29am LABWORK October 03, 2024 5:0 0am Chief Complaint Admit Date [facility] July 11 5:00am [facility] August 23, 2024 5:00am MONTHLY EXAM September 01, 2024 11:29am MONTHLY EXAM September 20, 2024 3:13 pm LABWORK October 03, 2024 5:0 0am [facility] October 06, 2024 5 :00am Chief Complaint Admit Date [facility] July 11 5:00am [facility] August 23, 2024 5:00am MONTHLY EXAM September 01, 2024 11:29am MONTHLY EXAM September 20, 2024 3:13 pm LABWORK October 03, 2024 5:0 0am [facility] October 06, 2024 5 :00am LABWORK October 10, 2024 5:0 0am Chief Complaint Admit Date [facility] July 11 5:00am [facility] August 23, 2024 5:00am MONTHLY EXAM September 01, 2024 11:29am MONTHLY EXAM September 20, 2024 3:13 pm LABWORK October 03, 2024 5:0 0am [facility] October 06, 2024 5 :00am LABWORK October 10, 2024 5:0 0am FALL, LACERATION November 03, 2024 9:0 6pm Chief Complaint Admit Date [facility] July 11 5:00am [facility] August 23, 2024 5:00am MONTHLY EXAM September 01, 2024 11:29am MONTHLY EXAM September 20, 2024 3:13 pm LABWORK October 03, 2024 5:0 0am [facility] October 06, 2024 5 :00am LABWORK October 10, 2024 5:0 0am [facility] October 17, 2024 5 :00am FALL, LACERATION November 03, 2024 9:0 6pm Chief Complaint Admit Date MONTHLY EXAM September 01, 2024 11:29am MONTHLY EXAM September 20, 2024 3:13 pm LABWORK October 03, 2024 5:0 0am [facility] October 06, 2024 5 :00am LABWORK October 10, 2024 5:0 0am [facility] October 17, 2024 5 :00am MONTHLY EXAM October 21, 2024 1:47 pm FALL, LACERATION November 03, 2024 9:0 6pm [facility] November 14, 2024 4 :00am [facility] November 22, 2024 5:00 am [facility] December 13, 2024 5:0 0am Chief Complaint Admit Date [facility] August 23, 2024 5:00am MONTHLY EXAM September 01, 2024 11:29am MONTHLY EXAM September 20, 2024 3:13 pm LABWORK October 03, 2024 5:0 0am [facility] October 06, 2024 5 :00am LABWORK October 10, 2024 5:0 0am [facility] October 17, 2024 5 :00am MONTHLY EXAM October 21, 2024 1:47 pm FALL, LACERATION November 03, 2024 9:0 6pm [facility] November 14, 2024 4 :00am [facility] November 22, 2024 5:00 am Advance Directives No Advanced Directives Records Found Advance Directive Response Recorded Date/ Time Name of Medical Power of Thread Laster ? November 11, 2022 4:49pm Living Will Yes November 11, 2022 4:49pm Power of Thread Laster Yes November 11 4:49pm Advance Directive Response Recorded Date/ Time Name of Medical Power of Thread Laster Matilda Pritchett November 11, 2022 10:59pm Living Will Yes November 11, 2022 10:59pm Power of Thread Laster Yes November 11 10:59pm Advance Directive Response Recorded Date/ Time Name of Medical Power of Thread Laster Matilda Pritchett November 11, 2022 10:59pm Name of Medical Power of Thread Laster christine Pritchett November 14, 2022 10:44am Living Will Yes November 14, 2022 10:44am Power of Thread Laster Yes November 14 10:44am Advance Directive Response Recorded Date/ Time Living Will Yes November 14, 2022 10:44am Power of Thread Laster Yes November 14 10:44am Advance Directive Response Recorded Date/ Time Name of Medical Power of Thread Laster NYA MORRIS July 25, 2023 4:49am Living Will Yes July 25 4:49am Power of Thread Laster Yes July 25 4:49am Advance Directive Response Recorded Date/ Time Living Will Yes November 03, 2024 9:16pm Do you have a Healthcare Power of Thread Laster? Yes November 03, 2024 9:16pm Name of Medical Power of Thread Laster Daniel Amaral November 03, 2024 9:16pm Summary [...] 2024 End: October 21, 2024 Poppy Mccracken CONSULTING SALES MANAGER, CONSULTING SALES MANAGER-C Attending Provider Active Start: October 21, 2024 [...] Mariano Dao MD Family Provider Active ALANNAH BENITO Primary Care Provider Active Team Status: Active Member Role Status Dates Dr. Nancy Ewing MD Emergency Provider Active THONG JAFFE Primary Care Provider Active Dr. Ryder Brody MD Admit Provider, Attending Provider, Other Provider Active Team Status: Active Member Role Status Dates Dr. Nancy Ewing MD Emergency Provider Active THONG JAFFE Primary Care Provider Active Dr. Rdyer Brody MD Admit Provider, Attending Pro vider Active Team Status: Active Member Role Status Dates Dr. Nancy Ewing MD Emergency Provider Active [facility] Primary Care Provider Active Dr. Ryder Brody MD Admit Provider, Other Provide r Active Dr. Bernice Betancur MD Attending Provider, Other Provid er Active Team Status: Inactive Member Role Status Dr. Nancy Ewing MD Emergency Provider Active [facility] Primary Care Provider Active Dr. Ryder Brody MD Admit Provider, Other Provide r Active Dr. Bernice Betancur MD Attending Provider Active Team Status: Active Member Role Status ALANNAH [facility] Primary Care Provider Active Dr. Sylvester Crooks MD Admit Provider, Attending Provid er Active Magnolia Tafoya , CONSULTING SALES MANAGER-C Other Provider Active Dr. Steven Dean DO Other Provider Active Dr. Fany Dao MD Other Provider Active Tanisha Henriquez , CONSULTING SALES MANAGER-C Other Provider Active Britany White CONSULTING SALES MANAGER, CONSULTING SALES MANAGER-C Other Provider Active Team Status: Inactive Member Role Status [facility] Primary Care Provider Active Dr. Sylvester Crooks MD Attending Provider, Referring Pr ovider Active Team Status: Inactive Member Role Status ALANNAH [facility] Primary Care Provider Active Dr. Sylvester Crooks MD Admit Provider, Attending Provid er Active Magnolia Tafoya CONSULTING SALES MANAGER-C Other Provider Active Dr. Steven Dean DO Other Provider Active Dr. Fany Dao MD Other Provider Active Tanisha Henriquez , CONSULTING SALES MANAGER-C Other Provider Active Britany White CONSULTING SALES MANAGER, CONSULTING SALES MANAGER-C Other Provider Active Team Status: Active Member Role Status Dr. Mariano Dao MD Family Provider Active Dr. Pete Payne MD Primary Care Provider Active Team Status: Inactive Member Role Status Dates Out of [facility] Doctor Primary Care Provider Active Dr. Pete Payne MD Attending Provider Active Team Status: Inactive Member Role Status Dates Out of [facility] Doctor Primary Care Provider Active Poppy Mccracken CONSULTING SALES MANAGER, CONSULTING SALES MANAGER-C Attending Provider Active Team Status: Inactive Member Role Status Dates Out [facility] Doctor Primary Care Provider Active Pete [...] MD Primary Care Provider Active Poppy Mccracken CONSULTING SALES MANAGER, CONSULTING SALES MANAGER-C Attending Provider Active Team Status: Inactive Member [...] 2024 End: June 21, 2024 Poppy Mccracken CONSULTING SALES MANAGER, CONSULTING SALES MANAGER-C Attending Provider Active Start: June 21, 2024 [...] section and content) DATE CREATED AUTHOR 01/07/2025 [facility] FOR RECORDS PERTAINING TO PATIENTS WHO ARE [...] BE BASED ON THE PRIMARY CLINICAL RECORDS. [employer] [facility]. provides no warranty or guarantee of the accuracy or completeness of information in this document.
[2025-01-13 08:48] LABS: Absolute Lymphocyte Count 2.32 X10^3/uL (0.83-4.51); Absolute Neutrophil Count 5.2 X10^3/uL (2.0-7.7); Basophil# 0.08 X10^3/uL; Basophil% 0.9 % (0-1); Eosinophil# 0.29 X10^3/uL; Eosinophils% 3.4 % (0-5); Hemoglobin 11.4 g/dL (12.0-15.0); Lymphocyte # 2.32 X10^3/ul (0.83-4.51); Lymphocyte % 27.3 % (19-41); Mean Corp Hgb Conc 31.7 g/dL (32-36); Mean Corpuscular Hgb 29.5 pg (27.0-32.0); Mean Corpuscular Volume 93.3 fL (81-99); Mean Platelet Vol. 10.8 fl (6.2-12.0); Monocyte# 0.59 X10^3/uL; Monocyte% 6.9 % (0-10); NRBC Flagged by Analyzer 0 % (0-5); Neutrophil # 5.17 X10^3/uL (2.7-7.7); Platelet Count 316 K/mm3 (150-450); RBC Distribution Width CV 13.2 % (11.6-14.6); RBC Distribution Width SD 45.4 fl (35.1-43.9); Red Blood Count 3.86 M/mm3 (4.2-5.4); White Blood Count 8.5 K/mm3 (4.4-11.0)
== END ==
LOC: OLS.WHLCAR 05:00
PROVIDERS: PCP Internal Medicine; Visit Provider Internal Medicine
DX: I12.9 Hypertensive chronic kidney disease with stage 1 through stage 4 chronic kidney disease, or unspecified chronic kidney disease (principal); N18.9 Chronic kidney disease, unspecified; D63.1 Anemia in chronic kidney disease
CPT/HCPCS: 36415; 85025

== ENCOUNTER → 2025-02-06 | Outpatient (REF) | payer MEDICARE, MEDICAID, SELFPAY ==
--- OUTSIDE RECORDS SUMMARY | 2025-02-06 04:55 | XMS RPT_ITS | CCD ---
Author Organization [facility] Care Team Providers Care Pyridine Operator Name Role Phone Dr. Nancy Ewing Emergency Provider THONG ALANNAH Primary Care Provider Unavail able Dr. Ryder Brody Admit Provider Dr. Ryder Brody Attending Provider Dr. Ryder Brody Other Provider ALANNAH BENITO Primary Care Provider Dr. Bernice Betancur Attending Provider Dr. Bernice Betancur Other Provider [facility] Doctor, Out of Primary Care Provider Silvia Mccracken POST COMMANDER, POST COMMANDER-C Poppy Attending Provider Dr. Pete Dietz Attending Provider Dr. Pete Payne Primary Care Provider Dr. Pete Payne Attending Provider Kaykay POST COMMANDER, POST COMMANDER-C Poppy Attending Provider Dr. Pete Dietz Primary Care Provider Dr. Pete Payne Attending Provider Kaykay POST COMMANDER, POST COMMANDER-C Poppy Attending Provider Dr. Pete Dietz Primary Care Provider Dr. Pete Payne Attending Provider Kaykay POST COMMANDER, POST COMMANDER-C Poppy Attending Provider Elmer SAMUELS, Dr. Freeman Primary Care Provider Kaykay POST COMMANDER-CPoppy Attending Provider Pete Payne MD Attending Provider UnavailMateo Cordova Attending Provider Elmer SAMUELS, Dr. Freeman Primary Care Provider Elmer SAMUELS, Dr. Freeman Attending Provider [phone] Cheyanne DRISCOLL, Dr. Amezquita Emergency Provider Dr. Pete Payne MD Primary Care Provider Pete Payne MD Attending Provider Unavaila naun Mccracken POST COMMANDER-CPoppy Attending Provider Cheyanne DRISCOLL, Dr. Amezquita Attending Provider Pete Payne MD Referring Provider UnavailDr. Pete Gaytan MD Primary Care Provider Pete Payne MD Attending Provider UnavailDr. Pete Gaytan MD Primary Care Provider Pete Payne MD Attending Provider Unavaildeisy Payne MD, Dr. Freeman Attending Provider [phone] Oleghe OLS, Efewongbe Attending Unavailabl e Oleghe, Efewongbe Primary Care Unavailable Oleghe OLS, Efewongbe Referring Unavailabl e Oleghe OLS, Efewongbe Attending Unavailabl e Oleghe, Efewongbe Primary Care Unavailable Oleghe, Efewongbe Primary Care Unavailable Mateo Cardoza Attending Unavailable Oleghe OLS, Efewongbe Attending Unavailabl e Oleghe, Efewongbe Primary Care Unavailable Oleghe OLS, Efewongbe Attending Unavailabl e Oleghe, Efewongbe Primary Care Unavailable Oleghe OLS, Efewongbe Attending Unavailabl e Oleghe, Efewongbe Primary Care Unavailable Oleghe, Efewongbe Primary Care Unavailable Oleghe OLS, Efewongbe Attending Unavailabl e Oleghe, Efewongbe Primary Care Unavailable Oleghe OLS, Efewongbe Attending Unavailabl e Tickton POST COMMANDER, Poppy Attending Unavailable Oleghe, Efewongbe Primary Care Unavailable Oleghe, Efewongbe Attending Unavailable Oleghe, Efewongbe Primary Care Unavailable Tickton POST COMMANDERPoppy Attending Unavailable Oleghe, Efewongbe Primary Care Unavailable [...] Care Unavailable Oleghe, Efewongbe Primary Care Unavailable Oleghe, Efewongbe Attending Unavailable Oleghe, Efewongbe Attending Unavailable Oleghe, Efewongbe Primary Care Unavailable Oleghe, Efewongbe Primary Care Unavailable Mateo Cardoza Attending Unavailable Oleghe, Efewongbe Primary Care Unavailable Tickton POST COMMANDER, Poppy Attending Unavailable Oleghe OLS, Efewongbe Referring Unavailabl e Oleghe OLS, Efewongbe Attending Unavailabl e Oleghe, Efewongbe Primary Care Unavailable Oleghe OLS, Efewongbe Attending Unavailabl e Oleghe, Efewongbe Primary Care Unavailable Oleghe, Efewongbe Primary Care Unavailable Kaykay POST COMMANDERPoppy Attending Unavailable Oleghe, Efewongbe Primary Care Unavailable Oleghe OLS, Efewongbe Attending Unavailabl e Oleghe, Efewongbe Primary Care Unavailable Tickton POST COMMANDER, Poppy Attending Unavailable Oleghe, Efewongbe Primary Care Unavailable Oleghe, Efewongbe Attending Unavailable Tickton POST COMMANDER, Poppy Attending Unavailable Oleghe, Efewongbe Primary Care Unavailable Oleghe OLS, Efewongbe Attending Unavailabl e Oleghe OLS, Efewongbe Referring Unavailabl e Oleghe, Efewongbe Primary Care Unavailable Oleghe, Efewongbe Primary Care Unavailable Oleghe OLS, Efewongbe Attending Unavailabl e Allergies Allergy Classification Reported Allergen(s) Allergy Type Date of Onset Reaction(s) Facility (19 sources) Penicillins Propensity to adverse reactions 3 Diarrhea [facility] (1 source) Penicillins Drug allergy (disorder) 5 [facility] Repository Medications Current Medications Medication Drug Class(es) Dates Sig (Normalized) Sig (Original) acetaminophen 500 mg oral tablet (17 sources) Start: 11-26-2022 take 2 tablets by mouth every six hours as needed for pain Acetaminophen 500 mg Tablet Active 1000 mg PO EVERY 6 HOURS NEEDED as needed for Pain Score 1-10 0 0 November 26, 2022 12:00am Start: 11-26-2022 take 1000 mg by mout h every six hours as needed Acetaminophen Active 1000 MG PO EVERY 6 HOURS NEEDED 0 November 25, 2022 11:00pm atorvastatin 10 mg oral tablet (19 sources) HMG-CoA Reductase Inhibitor Start: 11-11-2022 take 1 tablet by mouth at bedtime Atorvastatin 10 mg tablet Active 10 mg PO AT BEDTIME November 11, 2022 12:00am CHOLESTEROL 24 hr buPROPion hydrochloride 150 mg extended release oral tablet (20 sources) Aminoketone Start: 11-13-2022 End: 11-13-2022 take 1 tablet by mouth once daily Bupropion Hcl 150 mg tablet extended release 24 hr Active 150 mg PO DAILY November 13, 2022 4:51pm mood Cholecalciferol (19 sources) Vitamin D Start: 11-11-2022 Cholecalciferol (Vitamin D3) 1,250 mcg (50,000 unit) Tablet Active 1250 ug PO WE November 11, 2022 12:00am SUPPLEMENT Start: 11-11-2022 Cholecalcifero l (Vitamin D3) 1,250 mcg (50,000 unit) Tablet Active 1250 ug PO WE November 11, 2022 12:00am Start: 11-11-2022 Cholecalcifero l (Vitamin D3) Active 1250 MCG PO WE November 10, 2022 11:00pm Start: 11-11-2022 Cholecalcifero l (Vitamin D3) Active 1250 MCG PO WE November 11, 2022 12:00am citalopram 10 mg oral tablet (12 sources) Serotonin Reuptake Inhibitor Start: 07-25-2023 take 1 tablet by mouth once daily Citalopram (Celexa) 10 mg tablet Active 10 mg PO DAILY July 25, 2023 1:00am donepezil hydrochloride 10 mg oral tablet (20 sources) Start: 11-26-2022 take 1 tablet by mouth at bedtime Donepezil 10 mg Tablet Active 10 mg PO AT BEDTIME 0 0 November 26, 2022 12:00am Start: 11-11-2022 End: 11-26-2022 Donepezil 10 mg tablet Disco ntinued 100 mg PO AT BEDTIME November 11, 2022 12:00am November 26, 2022 9:05pm MEMORY Start: 11-11-2022 End: 11-26-2022 take 100 mg by mouth at bedtime Donepezil Discontinued 100 MG PO AT BEDTIME November 10, 2022 11:00pm November 26, 2022 8:05pm Food Supplemt, Lactose-Reduc ed (Ensure Plus High Protein) 0.08 gram-1.5 kcal/mL liquid (17 sources) Start: 11-13-2022 Food Supplemt, Lactose-Reduced (Ensure Plus High Protein) 0.08 gram-1.5 kcal/mL liquid Active 120 mL PO 4 TIMES DAILY November 13, 2022 4:51pm ensure Start: 11-13-2022 Food Supplemt, Lactose-Reduced (Ensure Plus [...] 4:51pm levothyroxine sodium 0.025 mg oral tablet (19 sources) l-Thyroxine Start: 02-08-2017 take 1 tablet by mouth once daily Levothyroxine 25 MCG tablet Active 25 ug PO DAILY February 08, 2017 12:00am THYROID metFORMIN hydrochloride 500 mg oral tablet (19 sources) Biguanide Start: 11-10-2013 take 1 tablet by mouth once daily Metformin 500 MG tablet Active 500 mg PO DAILY November 10, 2013 12:00am DIABETES mirtazapine 15 mg oral tablet (17 sources) Start: 05-10-2023 take 7.5 mg by mouth at bedtime Mirtazapine 15 mg Tablet Active 7.5 mg PO AT BEDTIME 0 November 26, 2022 12:00am Start: 11-26-2022 take 7.5 mg by mouth at bedtim e Mirtazapine Active 7.5 MG PO AT BEDTIME 0 November 25, 2022 11:00pm propranolol hydrochloride 20 mg oral tablet (19 sources) beta-Adrenergic Nathanael Start: 11-10-2013 take 1 tablet by mouth once daily Propranolol 20 MG tablet Active 20 mg PO DAILY November 10, 2013 12:00am tremors raloxifene hydrochloride 60 mg oral tablet (18 sources) Estrogen Agonist/Antagonist Start: 11-12-2022 take 1 tablet by mouth once daily Raloxifene 60 mg Tablet Active 60 mg PO DAILY November 12, 2022 12:00am Check with primary doctor sertraline 25 mg oral tablet (1 source) Serotonin Reuptake Inhibitor Start: 11-11-2022 take 25 mg by mouth every other day Sertraline Active 25 MG PO EVERY OTHER DAY November 11, 2022 12:00am Completed/Discontinued Medications Medication Drug Class(es) Dates Sig (Normalized) Sig (Original) Food Supplemt, Lactose-Reduced (Ensure Plus High Protein) 0.08 gram-1.5 kcal/mL Liquid (18 sources) Start: 11-13-2022 End: 11-13-2022 Food Supplemt, Lactose-Reduced (Ensure Plus High Protein) 0.08 gram-1.5 kcal/mL Liquid Discontinued 120 mL PO 4 TIMES DAILY 237 0 November 13, 2022 12:00am November 13, 2022 4:51pm Start: 11-13-2022 End: 11-13-2022 Food Supplemt, Lactose-Reduc ed (Ensure Plus High Protein) 0.08 gram-1.5 kcal/mL Liquid Discontinued 120 mL PO 4 TIMES DAILY 237 November 13, 2022 12:00am November 13, 2022 4:51pm Start: 11-13-2022 End: 11-13-2022 Food Supplemt, Lactose-Reduc ed (Ensure Plus High Protein) 0.08 gram-1.5 kcal/mL Liquid Discontinued 120 ML PO 4 TIMES DAILY November 12, 2022 11:00pm November 13, 2022 3:51pm Start: 11-13-2022 End: 11-13-2022 Food Supplemt, Lactose-Reduc ed (Ensure Plus High Protein) 0.08 gram-1.5 kcal/mL Liquid Discontinued 120 ML PO 4 TIMES DAILY 237 November 13, 2022 12:00am November 13, 2022 4:51pm Start: 11-13-2022 Food Supplemt, Lactose-Reduced (Ensure Plus High Protein) 0.08 gram-1.5 kcal/mL Liquid Active 120 ML PO 4 TIMES DAILY 237 November 13, 2022 12:00am ondansetron 4 mg disintegrating oral tablet (19 sources) Serotonin-3 Receptor Antagonist Start: 01-18-2014 End: 02-09-2017 take 1 tablet by mouth every eight hours as needed for nausea Ondansetron 4 MG tablet Discontinued 4 mg PO EVERY 8 HOURS NEEDED as needed for Nausea January 18, 2014 12:00am February 09, 2017 9:05am traMADol hydrochloride 50 mg oral tablet (19 sources) Opioid Agonist Start: 06-04-2018 End: 06-07-2018 take 1 tablet by mouth every four hours as needed for pain Tramadol 50 MG tablet Discontinued 50 mg PO EVERY 4 HOURS NEEDED as needed for Pain 12 June 04, 2018 1:00am June 06, 2018 1:00am June 07, 2018 1:12am Osteoarthritis Unspecified osteoarthritis, unspecified site Problems Active Problems Problem Classification Problem Date [...] complications] 02-07-2017 Chronic Disorders of lipid metabolism (20 sources) Hyperlipidemia; Translations: [Hyperlipidemia, unspecified] 11-13-2022 Chronic E Codes: Fall (12 sources) Accidental fall ; Translations: [Unspecified fall, initial encounter] 07-25-2023 Episodic Esophageal disorders (19 sources) Gastroesophageal reflux disease; Translations: [Gastro-esophageal reflux disease without esophagitis] 11-11-2022 Chronic Essential hypertension (20 sources) Hypertensive disorder; Translations: [Essential (primary) hypertension] 02-07-2017 Chronic Fluid and electrolyte disorders (20 sources) Hyponatremia; Translations: [Hypo-osmolality and hyponatremia] 11-11-2022 Episodic Hypertension with complications and secondary hypertension [...] Translations: [Other malaise] 11-11-2022 Episodic Mood disorders (20 sources) Depressive disorder; Translations: [Depression] 11-13-2022 Chronic Noninfectious gastroenteritis (19 sources) Gastroenteritis; Translations: [Noninfective gastroenteritis and colitis, unspecified] 02-09-2017 Episodic Open wounds of head; neck; and trunk (8 sources) Facial laceration ; Translations: [Laceration without foreign body of other part of head, initial encounter] Onset: 11-08-2024 11-04-2024 Episodic Osteoarthritis (19 sources) Osteoarthritis of left knee joint; Translations: [Unilateral primary osteoarthritis, left knee] 06-05-2018 Chronic Osteoporosis (19 sources) Osteoporosis; Translations: [Age-related osteoporosis without current pathological fracture] 02-09-2017 Chronic Other injuries and conditions due to external causes (20 sources) Closed injury of head; Translations: [Unspecified injury of head, initial encounter] 01-20-2023 Episodic Other injuries and conditions due to external causes (15 sources) Contusion of multiple sites; Translations: [Unspecified multiple injuries, initial encounter] 01-20-2023 Episodic Other non-traumatic joint disorders (12 sources) Knee joint effusion; Translations: [Effusion, unspecified knee] 07-25-2023 Episodic Superficial injury; contusion (20 sources) Hematoma of face; Translations: [Contusion of [...] Classification Problem Date Documented Da te Episodic/Chronic Hemorrhoids (1 source) Unspecified hemorrhoids; Translations: [Unspecified hemorrhoids] Onset: 10-25-2024 Episodic Results Test Name Value Interpretation Reference Range Facility Absolute lymphocyte countOrd ered By: Pete Payne on 01-13-2025 Lymphocytes Auto (Unsp spec) [#/Vol] 2.32 10*3/uL 0.83-4.51 [facility] Absolute neutrophil countOrd ered By: Pete Payne on 01-13-2025 Neutrophils (Bld) [#/Vol] 5.2 10*3/uL 2.0-7.7 [facility] Automated lymphocyte count a s percentage of total leukocytesOrdered By: Pete Payne on 01-13-2025 Lymphocytes/100 WBC Auto (Unsp spec) 27.3 % 19-41 [facility] Basophil percentageOrdered B y: Pete Payne on 01-13-2025 Basophils/100 WBC (Bld) 0.9 % 0-1 [facility] Eosinophil percentageOrdered By: [facility] Payne on 01-13-2025 Eosinophils/100 WBC (Bld) 3.4 % 0-5 [facility] Erythrocyte distribution wid th ratioOrdered By: Pete Payne on 01-13-2025 Erythrocyte distribution width (RBC) [Ratio] 13.2 % 11.6-14.6 [facility] Erythrocyte distribution wid th standard deviationOrdered By: [facility] Payne on 01-13-2025 Erythrocyte distribution width (RBC) [Ratio] 45.4 fl High 35.1-43.9 [facility] Hematocrit Auto (Bld) [Volum e fraction]Ordered By: Pete Payne on 01-13-2025 Hematocrit (Bld) [Volume fraction] 36.0 % Low 37-47 [facility] Hemoglobin measurementOrdere d By: Pete Payne on 01-13-2025 Hemoglobin (Bld) [Mass/Vol] 11.4 g/dL Low 12.0-15.0 [facility] Immature granulocytes/100 WB C Auto (Bld)Ordered By: Pete Payne on 01-13-2025 Immature granulocytes/100 WBC (Bld) 0.500 % 0.0-0.9 [facility] Comment on above: IG% - Immature Granu locytes (promyelocytes, myelocytes and metamyelocytes) > 1% indicates that a LEFT SHIFT is Present. MCV (mean corpuscular volume ) determinationOrdered By: Pete Payne on 01-13-2025 MCV (RBC) [Entitic vol] 93.3 fL 81-99 [facility] Mean corpuscular hemoglobin (MCH) determinationOrdered By: Pete Payne on 01-13-2025 MCH (RBC) [Entitic mass] 29.5 pg 27.0-32.0 [facility] Mean corpuscular hemoglobin concentration (MCHC) determinationOrdered By: Pete Payne on 01-13-2025 MCHC (RBC) [Mass/Vol] 31.7 g/dL Low 32-36 [facility] Mean platelet volume determi nationOrdered By: Pete Payne on 01-13-2025 Platelet mean volume (Bld) [Entitic vol] 10.8 fL 6.2-12.0 [facility] Monocyte percentageOrdered B y: Pete Payne on 01-13-2025 Monocytes/100 WBC (Bld) 6.9 % 0-10 [facility] Neutrophil percentageOrdered By: Pete Payne on 01-13-2025 Neutrophils/100 WBC (Bld) 61.0 % 47-70 [facility] Nucleated red blood cell per centageOrdered By: Pete Payne on 01-13-2025 Nucleated RBC/100 WBC (Bld) [Ratio] 0 % 0-5 [facility] Platelet countOrdered By: Celeste Payne on 01-13-2025 Platelets (Bld) [#/Vol] 316 10*3/uL 150-450 [facility] RBC Auto (Bld) [#/Vol]Ordere d By: Pete Beltranyulia on 01-13-2025 RBC (Bld) [#/Vol] 3.86 10*6/uL Low 4.2-5.4 [facility] White blood cell (WBC) count Ordered By: Celestealexisanne Beltranyulia on 01-13-2025 WBC (Bld) [#/Vol] 8.5 10*3/uL 4.4-11.0 [facility] TSH DL <= 0.005 mIU/L QnOrde red By: Pete Payne on 12-26-2024 TSH Qn 4.080 uIU/mL 0.300-4.200 [facility] Absolute lymphocyte countOrd ered By: Pete Beltranyulia on 12-13-2024 Lymphocytes Auto (Unsp spec) [#/Vol] 2.57 10*3/uL 0.83-4.51 [facility] Absolute neutrophil countOrd ered By: Pete Payne on 12-13-2024 Neutrophils (Bld) [#/Vol] 5.1 10*3/uL 2.0-7.7 [facility] Automated lymphocyte count a s percentage of total leukocytesOrdered By: Nithinsudarshan Devinyulia on 12-13-2024 Lymphocytes/100 WBC Auto (Unsp spec) 29.2 % 19-41 [facility] Basophil percentageOrdered B y: Nithinsudarshan Pfeifferriteshyulia on 12-13-2024 Basophils/100 WBC (Bld) 0.8 % 0-1 [facility] Eosinophil percentageOrdered By: alexisolympiasudarshan Devinyulia on 12-13-2024 Eosinophils/100 WBC (Bld) 3.5 % 0-5 [facility] Erythrocyte distribution wid th ratioOrdered By: alexisolympiasudarshan Beltranyulia on 12-13-2024 Erythrocyte distribution width (RBC) [Ratio] 13.4 % 11.6-14.6 [facility] Erythrocyte distribution wid th standard deviationOrdered By: Celestegeena Pfeifferriteshyulia on 12-13-2024 Erythrocyte distribution width (RBC) [Ratio] 46.0 fl High 35.1-43.9 [facility] Hematocrit Auto (Bld) [Volum e fraction]Ordered By: Pete Payne on 12-13-2024 Hematocrit (Bld) [Volume fraction] 33.0 % Low 37-47 [facility] Hemoglobin measurementOrdere d By: Pete Payne on 12-13-2024 Hemoglobin (Bld) [Mass/Vol] 10.6 g/dL Low 12.0-15.0 [facility] Immature granulocytes/100 WB C Auto (Bld)Ordered By: Pete Payne on 12-13-2024 Immature granulocytes/100 WBC (Bld) 0.300 % 0.0-0.9 [facility] Comment on above: IG% - Immature Granu locytes (promyelocytes, myelocytes and metamyelocytes) > 1% indicates that a LEFT SHIFT is Present. MCV (mean corpuscular volume ) determinationOrdered By: Pete Payne on 12-13-2024 MCV (RBC) [Entitic vol] 94.0 fL 81-99 [facility] Mean corpuscular hemoglobin (MCH) determinationOrdered By: geena Payne on 12-13-2024 MCH (RBC) [Entitic mass] 30.2 pg 27.0-32.0 [facility] Mean corpuscular hemoglobin concentration (MCHC) determinationOrdered By: geena Payne on 12-13-2024 MCHC (RBC) [Mass/Vol] 32.1 g/dL 32-36 [facility] Mean platelet volume determi nationOrdered By: geena Payne on 12-13-2024 Platelet mean volume (Bld) [Entitic vol] 9.9 fL 6.2-12.0 [facility] Monocyte percentageOrdered B y: Pete Payne on 12-13-2024 Monocytes/100 WBC (Bld) 8.1 % 0-10 [facility] Neutrophil percentageOrdered By: alexisolympiasudarshan Payne on 12-13-2024 Neutrophils/100 WBC (Bld) 58.1 % 47-70 [facility] Nucleated red blood cell per centageOrdered By: alexisolympiasudarshan Payne on 12-13-2024 Nucleated RBC/100 WBC (Bld) [Ratio] 0 % 0-5 [facility] Platelet countOrdered By: Celeste terezasudarshan Payne on 12-13-2024 Platelets (Bld) [#/Vol] 309 10*3/uL 150-450 [facility] RBC Auto (Bld) [#/Vol]Ordere d By: Pete Kentrellsarthak on 12-13-2024 RBC (Bld) [#/Vol] 3.51 10*6/uL Low 4.2-5.4 [facility] White blood cell (WBC) count Ordered By: Nithinsudarshan Payne on 12-13-2024 WBC (Bld) [#/Vol] 8.8 10*3/uL 4.4-11.0 [facility] Hemoglobin A1c percentageOrd ered By: Nithinsudarshan Payne on 11-22-2024 HbA1c (Bld) [Mass fraction] 7.0 % High <5.7 [facility] Comment on above: Normal < 5.7 % Predi abetic 5.7 - 6.4 % Diabetic >or= 6.5 % Please note range changes. TSH DL <= 0.005 mIU/L QnOrde red By: Nithinsudarshan Payne on 11-14-2024 TSH Qn 3.270 uIU/mL 0.300-4.200 [facility] Brain/Head without Contrasto n 11-03-2024 Brain/Head without Contrast [facility] Imaging Services [address] [place] [address] [id number] Brain/Head without Contrast MR#: [id number] Acct: [id number] Name: MAXIME AMARAL Ellie Rep #: [id number] : 1935 F 89 From: Davin Sotelo DO PCP: Dr. Pete Payne MD Status: [facility] ER Study: Brain/Head without Contrast Date of Exam: 10/18 02/10 Exam# [id number] Ordering Dr: Alirio Edward DO PROCEDURE: BRAIN/HEAD [...] CHRONIC CHANGES. NO ACUTE FINDINGS. [facility] CC: Dr. Pete Payne MD; Dr. Alirio Edward DO Melter Caster: Signed Normal [facility] Emergency Department Summary on 11-03-2024 Emergency Department Summary [facility] Medical Records Department [address] [place] [address] Emergency Department Summary 11/03/24 MR#: [id number] Acct: [id number] Name: MAXIME AMARAL Rep #: [id number] : 1935 89 From: Alirio Patel PCP: Dr. Pete Payne MD Status:REG ER Location: ED HPI HPI - Fall History of Present Illness Chief Complaint: Fall Informant: patient and family Narrative Narrative: Patient brought in by EMS from [facility] witnessed fall head injury. Patient history [...] paperwork. She has baseline per son. [facility] Medical History Dry eye syndrome of [...] for te (more content not included)... Normal [facility] Shoulder min 2 Viewson 11-03 Shoulder min 2 Views [facility] Imaging Services [address] [place], [place] [id number] Shoulder min 2 Views MR#: [id number] Acct: [id number] Name: MAXIME AMARAL Rep #: [id number] : 1935 F 89 From: Davin Sotelo DO PCP: Dr. Pete Payne MD Status: REG ER Study: Shoulder min 2 Views Date of Exam: 11/03/24 Exam# [id number] Ordering Dr: Alirio Edward DO PROCEDURE: SHOULDER MIN 2 VIEWS 11/03/2024 REASON FOR EXAM: INJURY TECHNIQUE: 3 view(s) of the right shoulder COMPARISON: None FINDINGS: Bones: No acute fracture. Joints: Normal alignment of the acromioclavicular and glenohumeral joints. Soft tissues: Soft tissues are unremarkable. Other: RAD/Shoulder min 2 Views IMPRESSION: NO ACUTE FRACTURE OR DISLOCATION. Reading Location: [facility] CC: Dr. Pete Payne MD; Dr. Alirio Edward DO Melter Caster: Signed Normal [facility] Sinus/Facial Boneon 11-04-19 Sinus/Facial Bone [facility] Imaging Services [address] [place] [address] Sinus/Facial Bone MR#: [id number] Acct: [id number] Name: MAXIME AMARAL Rep #: [id number] : 1935 F 89 From: Davin Sotelo DO PCP: Dr. Pete Payne MD Status: REG ER Study: Sinus/Facial Bone Date of Exam: 11/03/24 Exam# [id number] Ordering Dr: Alirio Edward DO PROCEDURE: SINUS/FACIAL [...] supraorbital region. No acute fracture. Reading Location: [facility] CC: Dr. Pete Payne MD; Dr. Alirio Edward DO Melter Caster: Signed Normal [facility] Spine Cervical without Contr ason 11-03-2024 Spine Cervical without Contras [facility] Imaging Services [address] [place] [address] Spine Cervical without Contras MR#: [id number] Acct: [id number] Name: MAXIME AMARAL Rep #: [id number] : 1935 F 89 From: Davin Sotelo DO PCP: Dr. Pete Payne MD Status: REG ER Study: Spine Cervical without Contras Date of Exam: 0 11/03/24 Exam# [id number] Ordering Dr: Alirio Edward DO PROCEDURE: SPINE [...] No acute fracture or subluxation. Reading Location: [facility] CC: Dr. Pete Payne MD; Dr. Alirio Edward DO Melter Caster: Signed Normal [facility] Absolute lymphocyte countOrd ered By: Pete Payne on 10-17-2024 Lymphocytes Auto (Unsp spec) [#/Vol] 3.03 10*3/uL 0.83-4.51 [facility] Absolute neutrophil countOrd ered By: Pete Payne on 10-17-2024 Neutrophils (Bld) [#/Vol] 5.3 10*3/uL 2.0-7.7 [facility] Automated lymphocyte count a s percentage of total leukocytesOrdered By: Pete Payne on 10-17-2024 Lymphocytes/100 WBC Auto (Unsp spec) 31.8 % 19-41 [facility] Basophil percentageOrdered B y: Pete Payne on 10-17-2024 Basophils/100 WBC (Bld) 0.8 % 0-1 [facility] Eosinophil percentageOrdered By: [facility] Payne on 10-17-2024 Eosinophils/100 WBC (Bld) 3.6 % 0-5 [facility] Erythrocyte distribution wid th (RBC) [Ratio]Ordered By: Pete Payne on 10-17-2024 Erythrocyte distribution width (RBC) [Entitic vol] 45.9 fL High 35.1-43.9 [facility] Erythrocyte distribution wid th ratioOrdered By: [facility] Kentrellyulia on 10-17-2024 Erythrocyte distribution width (RBC) [Ratio] 13.4 % 11.6-14.6 [facility] Erythrocyte distribution wid th standard deviationOrdered By: [facility] Kentrellyulia on 10-17-2024 Erythrocyte distribution width (RBC) [Ratio] 45.9 fl High 35.1-43.9 [facility] Hematocrit Auto (Bld) [Volum e fraction]Ordered By: alxeisolympiasudarshan Beltranyulia on 10-17-2024 Hematocrit (Bld) [Volume fraction] 34.1 % Low 37-47 [facility] Hemoglobin measurementOrdere d By: Pete Payne on 10-17-2024 Hemoglobin (Bld) [Mass/Vol] 11.1 g/dL Low 12.0-15.0 [facility] Immature granulocytes/100 WB C Auto (Bld)Ordered By: Celestealexiskeishasudarshan Pfeifferriteshyulia on 10-17-2024 Immature granulocytes/100 WBC (Bld) 0.400 % 0.0-0.9 [facility] Comment on above: IG% - Immature Granu locytes (promyelocytes, myelocytes and metamyelocytes) > 1% indicates that a LEFT SHIFT is Present. Lymphocytes Auto (Unsp spec) [#/Vol]Ordered By: Celestealexiskeishasudarshan Pfeifferriteshyulia on 10-17-2024 Lymphocytes (Bld) [#/Vol] 3.03 10*3/uL 0.83-4.51 [facility] Lymphocytes/100 WBC Auto (Un sp spec)Ordered By: Nithinsudarshan Pfeiffersarthak on 10-17-2024 Lymphocytes/100 WBC (Bld) 31.8 % 19-41 [facility] MCV (mean corpuscular volume ) determinationOrdered By: Pete Payne on 10-17-2024 MCV (RBC) [Entitic vol] 92.4 fL 81-99 [facility] Mean corpuscular hemoglobin (MCH) determinationOrdered By: Pete Beltrane on 10-17-2024 MCH (RBC) [Entitic mass] 30.1 pg 27.0-32.0 [facility] Mean corpuscular hemoglobin concentration (MCHC) determinationOrdered By: Pete Payne on 10-17-2024 MCHC (RBC) [Mass/Vol] 32.6 g/dL 32-36 [facility] Mean platelet volume determi nationOrdered By: Pete Payne on 10-17-2024 Platelet mean volume (Bld) [Entitic vol] 10.0 fL 6.2-12.0 [facility] Monocyte percentageOrdered B y: Pete Payne on 10-17-2024 Monocytes/100 WBC (Bld) 7.4 % 0-10 [facility] Neutrophil percentageOrdered By: alexisolympiasudarshan Payne on 10-17-2024 Neutrophils/100 WBC (Bld) 56.0 % 47-70 [facility] Nucleated red blood cell per centageOrdered By: Pete Payne on 10-17-2024 Nucleated RBC/100 WBC (Bld) [Ratio] 0 % 0-5 [facility] Platelet countOrdered By: Ef alexisanne Payne on 10-17-2024 Platelets (Bld) [#/Vol] 346 10*3/uL 150-450 [facility] RBC Auto (Bld) [#/Vol]Ordere d By: Saturninoongbe Devine on 10-17-2024 RBC (Bld) [#/Vol] 3.69 10*6/uL Low 4.2-5.4 [facility] White blood cell (WBC) count Ordered By: Pete Payne on 10-17-2024 WBC (Bld) [#/Vol] 9.5 10*3/uL 4.4-11.0 [facility] Absolute lymphocyte countOrd ered By: Pete Payne on 10-10-2024 Lymphocytes Auto (Unsp spec) [#/Vol] 2.36 10*3/uL 0.83-4.51 [facility] Absolute neutrophil countOrd ered By: Pete Payne on 10-10-2024 Neutrophils (Bld) [#/Vol] 5.5 10*3/uL 2.0-7.7 [facility] Automated lymphocyte count a s percentage of total leukocytesOrdered By: Pete Beltrane on 10-10-2024 Lymphocytes/100 WBC Auto (Unsp spec) 26.6 % 19-41 [facility] Basophil percentageOrdered B y: Pete Beltrane on 10-10-2024 Basophils/100 WBC (Bld) 0.9 % 0-1 [facility] Eosinophil percentageOrdered By: alexisolympiasudarshan Beltrane on 10-10-2024 Eosinophils/100 WBC (Bld) 2.8 % 0-5 [facility] Erythrocyte distribution wid th (RBC) [Ratio]Ordered By: alexisolympiasudarshan Beltrane on 10-10-2024 Erythrocyte distribution width (RBC) [Entitic vol] 45.0 fL High 35.1-43.9 [facility] Erythrocyte distribution wid th ratioOrdered By: Saturninoolympiasudarshan Beltrane on 10-10-2024 Erythrocyte distribution width (RBC) [Ratio] 13.2 % 11.6-14.6 [facility] Erythrocyte distribution wid th standard deviationOrdered By: Pete Beltrane on 10-10-2024 Erythrocyte distribution width (RBC) [Ratio] 45.0 fl High 35.1-43.9 [facility] Hematocrit Auto (Bld) [Volum e fraction]Ordered By: Pete Payne on 10-10-2024 Hematocrit (Bld) [Volume fraction] 35.0 % Low 37-47 [facility] Hemoglobin measurementOrdere d By: Pete Payne on 10-10-2024 Hemoglobin (Bld) [Mass/Vol] 11.3 g/dL Low 12.0-15.0 [facility] Immature granulocytes/100 WB C Auto (Bld)Ordered By: Pete Payne on 10-10-2024 Immature granulocytes/100 WBC (Bld) 0.500 % 0.0-0.9 [facility] Comment on above: IG% - Immature Granu locytes (promyelocytes, myelocytes and metamyelocytes) > 1% indicates that a LEFT SHIFT is Present. Lymphocytes Auto (Unsp spec) [#/Vol]Ordered By: Pete Payne on 10-10-2024 Lymphocytes (Bld) [#/Vol] 2.36 10*3/uL 0.83-4.51 [facility] Lymphocytes/100 WBC Auto (Un sp spec)Ordered By: Pete Payne on 10-10-2024 Lymphocytes/100 WBC (Bld) 26.6 % 19-41 [facility] MCV (mean corpuscular volume ) determinationOrdered By: Pete Payne on 10-10-2024 MCV (RBC) [Entitic vol] 92.6 fL 81-99 [facility] Mean corpuscular hemoglobin (MCH) determinationOrdered By: alexisolympiasudarshan Payne on 10-10-2024 MCH (RBC) [Entitic mass] 29.9 pg 27.0-32.0 [facility] Mean corpuscular hemoglobin concentration (MCHC) determinationOrdered By: Saturninoolympiasudarshan Payne on 10-10-2024 MCHC (RBC) [Mass/Vol] 32.3 g/dL 32-36 [facility] Mean platelet volume determi nationOrdered By: Pete Payne on 10-10-2024 Platelet mean volume (Bld) [Entitic vol] 10.1 fL 6.2-12.0 [facility] Monocyte percentageOrdered B y: Pete Payne on 10-10-2024 Monocytes/100 WBC (Bld) 6.7 % 0-10 [facility] Neutrophil percentageOrdered By: Pete Payne on 10-10-2024 Neutrophils/100 WBC (Bld) 62.5 % 47-70 [facility] Nucleated red blood cell per centageOrdered By: Pete Payne on 10-10-2024 Nucleated RBC/100 WBC (Bld) [Ratio] 0 % 0-5 [facility] Platelet countOrdered By: Celeste Payne on 10-10-2024 Platelets (Bld) [#/Vol] 361 10*3/uL 150-450 [facility] RBC Auto (Bld) [#/Vol]Ordere d By: Pete Beltrane on 10-10-2024 RBC (Bld) [#/Vol] 3.78 10*6/uL Low 4.2-5.4 [facility] White blood cell (WBC) count Ordered By: Pete Payne on 10-10-2024 WBC (Bld) [#/Vol] 8.9 10*3/uL 4.4-11.0 [facility] Absolute lymphocyte countOrd ered By: Pete Payne on 10-06-2024 Lymphocytes Auto (Unsp spec) [#/Vol] 2.51 10*3/uL 0.83-4.51 [facility] Absolute neutrophil countOrd ered By: Pete Payne on 10-06-2024 Neutrophils (Bld) [#/Vol] 4.8 10*3/uL 2.0-7.7 [facility] Automated lymphocyte count a s percentage of total leukocytesOrdered By: Ptee Payne on 10-06-2024 Lymphocytes/100 WBC Auto (Unsp spec) 30.2 % 19-41 [facility] Basophil percentageOrdered B y: Pete Beltrane on 10-06-2024 Basophils/100 WBC (Bld) 1.0 % 0-1 [facility] Eosinophil percentageOrdered By: Efalexisongsudarshan Beltrane on 10-06-2024 Eosinophils/100 WBC (Bld) 3.1 % 0-5 [facility] Erythrocyte distribution wid th (RBC) [Ratio]Ordered By: Pete Beltrane on 10-06-2024 Erythrocyte distribution width (RBC) [Entitic vol] 44.4 fL High 35.1-43.9 [facility] Erythrocyte distribution wid th ratioOrdered By: Pete Beltrane on 10-06-2024 Erythrocyte distribution width (RBC) [Ratio] 13.3 % 11.6-14.6 [facility] Erythrocyte distribution wid th standard deviationOrdered By: Pete Payne on 10-06-2024 Erythrocyte distribution width (RBC) [Ratio] 44.4 fl High 35.1-43.9 [facility] Hematocrit Auto (Bld) [Volum e fraction]Ordered By: Pete Payne on 10-06-2024 Hematocrit (Bld) [Volume fraction] 33.2 % Low 37-47 [facility] Hemoglobin measurementOrdere d By: Pete Payne on 10-06-2024 Hemoglobin (Bld) [Mass/Vol] 11.2 g/dL Low 12.0-15.0 [facility] Immature granulocytes/100 WB C Auto (Bld)Ordered By: alexisolympiasudarshan Payne on 10-06-2024 Immature granulocytes/100 WBC (Bld) 0.400 % 0.0-0.9 [facility] Comment on above: IG% - Immature Granu locytes (promyelocytes, myelocytes and metamyelocytes) > 1% indicates that a LEFT SHIFT is Present. Lymphocytes Auto (Unsp spec) [#/Vol]Ordered By: alexisolympiasudarshan Payne on 10-06-2024 Lymphocytes (Bld) [#/Vol] 2.51 10*3/uL 0.83-4.51 [facility] Lymphocytes/100 WBC Auto (Un sp spec)Ordered By: Pete Payne on 10-06-2024 Lymphocytes/100 WBC (Bld) 30.2 % 19-41 [facility] MCV (mean corpuscular volume ) determinationOrdered By: Pete Payne on 10-06-2024 MCV (RBC) [Entitic vol] 91.5 fL 81-99 [facility] Mean corpuscular hemoglobin (MCH) determinationOrdered By: geena Payne on 10-06-2024 MCH (RBC) [Entitic mass] 30.9 pg 27.0-32.0 [facility] Mean corpuscular hemoglobin concentration (MCHC) determinationOrdered By: geena Payne on 10-06-2024 MCHC (RBC) [Mass/Vol] 33.7 g/dL 32-36 [facility] Mean platelet volume determi nationOrdered By: Nithinsudarshan Pfeifferriteshyulia on 10-06-2024 Platelet mean volume (Bld) [Entitic vol] 9.8 fL 6.2-12.0 [facility] Monocyte percentageOrdered B y: Pete Payne on 10-06-2024 Monocytes/100 WBC (Bld) 7.9 % 0-10 [facility] Neutrophil percentageOrdered By: Pete Beltranyulia on 10-06-2024 Neutrophils/100 WBC (Bld) 57.4 % 47-70 [facility] Nucleated red blood cell per centageOrdered By: Pete Kentrellriteshyulia on 10-06-2024 Nucleated RBC/100 WBC (Bld) [Ratio] 0 % 0-5 [facility] Platelet countOrdered By: Celeste geena Kentrellriteshyulia on 10-06-2024 Platelets (Bld) [#/Vol] 348 10*3/uL 150-450 [facility] RBC Auto (Bld) [#/Vol]Ordere d By: Pete Kentrellsarthak on 10-06-2024 RBC (Bld) [#/Vol] 3.63 10*6/uL Low 4.2-5.4 [facility] White blood cell (WBC) count Ordered By: Celestealexisanne Kentrellriteshyulia on 10-06-2024 WBC (Bld) [#/Vol] 8.3 10*3/uL 4.4-11.0 [facility] T4 freeOrdered By: Celestealexisanne Kentrellriteshyulia on 10-03-2024 Free T4 [Mass/Vol] 1.20 ng/dL 0.76-1.46 [facility] TSH DL <= 0.005 mIU/L QnOrde red By: Pete Kentrellriteshyulia on 10-03-2024 Thyroid Stimulating Hormone (TSH) 4.480 uIU/mL High 0.300-4.200 [facility] TSH Qn 4.480 uIU/mL High 0.300-4.200 [facility] Absolute lymphocyte countOrd ered By: Pete Kentrellriteshyulia on 08-23-2024 Lymphocytes Auto (Unsp spec) [#/Vol] 2.44 10*3/uL 0.83-4.51 [facility] Absolute neutrophil countOrd ered By: Pete Payne on 08-23-2024 Neutrophils (Bld) [#/Vol] 5.4 10*3/uL 2.0-7.7 [facility] Albumin to globulin ratioOrd ered By: geena Payne on 08-23-2024 Albumin/Globulin [Mass ratio] 0.7 {ratio} Low 0.9-2.4 [facility] Automated lymphocyte count a s percentage of total leukocytesOrdered By: Pete Payne on 08-23-2024 Lymphocytes/100 WBC Auto (Unsp spec) 27.5 % 19-41 [facility] Basophil percentageOrdered B y: Pete Payne on 08-23-2024 Basophils/100 WBC (Bld) 0.6 % 0-1 [facility] Bilirubin, totalOrdered By: Pete Payne on 08-23-2024 Bilirubin [Mass/Vol] 0.90 mg/dL 0.20-1.00 [facility] Comment on above: For patients on eltr ombopag therapy, use of Dimension [place] TBIL is not recommended. Blood urea nitrogen (BUN)/cr eatinine ratioOrdered By: Pete Payne on 08-23-2024 Urea nitrogen/Creatinine [Mass ratio] 19.5 mg/mg 10-20 [facility] Carbon dioxide measurementOr dered By: Pete Payne on 08-23-2024 CO2 [Moles/Vol] 25.0 mmol/L 21.0-32.0 [facility] Chloride measurementOrdered By: Pete Payne on 08-23-2024 Chloride [Moles/Vol] 108 mmol/L High 98-107 [facility] Eosinophil percentageOrdered By: geena Pfeifferyulia on 08-23-2024 Eosinophils/100 WBC (Bld) 3.4 % 0-5 [facility] Erythrocyte distribution wid th (RBC) [Ratio]Ordered By: Pete Payne on 08-23-2024 Erythrocyte distribution width (RBC) [Entitic vol] 47.5 fL High 35.1-43.9 [facility] Erythrocyte distribution wid th ratioOrdered By: Pete Payne on 08-23-2024 Erythrocyte distribution width (RBC) [Ratio] 13.8 % 11.6-14.6 [facility] Erythrocyte distribution wid th standard deviationOrdered By: Pete Payne on 08-23-2024 Erythrocyte distribution width (RBC) [Ratio] 47.5 fl High 35.1-43.9 [facility] Estimated glomerular filtrat ion rate (GFR) AmericanOrdered By: Pete Payne on 08-23-2024 Estimated GFR (MDRD) Amer 69 mL/min >60 [facility] Comment on above: GFR Calc Glomerular filtration rate ( GFR) estimationOrdered By: Pete Payne on 08-23-2024 Estimated GFR (MDRD) Non-Af Amer 57 mL/min Low >60 [facility] Comment on above: Non- GFR Calc GFR/1.73 sq M.predicted among non-blacks MDRD (S/P/Bld) [Vol rate/Area] 57 mL/min/{1.73_m2} Low >60 [facility] Comment on above: Non- GFR Calc Glucose measurementOrdered B y: Pete Payne on 08-23-2024 Glucose [Mass/Vol] 122 mg/dL High 74-106 [facility] Comment on above: Fasting Glucose resu lt from 100 to 125 mg/dL suggests IMPAIRED HOMEOSTASIS per A.D.A. criteria. Hematocrit Auto (Bld) [Volum e fraction]Ordered By: Pete Payne on 08-23-2024 Hematocrit (Bld) [Volume fraction] 34.2 % Low 37-47 [facility] Hemoglobin A1c percentageOrd ered By: Pete Payne on 08-23-2024 HbA1c (Bld) [Mass fraction] 6.5 % High 3.8-5.6 [facility] Comment on above: Normal < 5.7 % Predi abetic 5.7 - 6.4 % Diabetic >or= 6.5 % Please note range changes. Hemoglobin measurementOrdere d By: Pete Payne on 08-23-2024 Hemoglobin (Bld) [Mass/Vol] 11.0 g/dL Low 12.0-15.0 [facility] Immature granulocytes/100 WB C Auto (Bld)Ordered By: Pete Payne on 08-23-2024 Immature granulocytes/100 WBC (Bld) 0.600 % 0.0-0.9 [facility] Comment on above: IG% - Immature Granu locytes (promyelocytes, myelocytes and metamyelocytes) > 1% indicates that a LEFT SHIFT is Present. Laboratory - Chemistry and C hemistry - challengeOrdered By: Pete Payne on 08-23-2024 AST [Catalytic activity/Vol] 12 U/L Low 15-37 [facility] Lymphocytes Auto (Unsp spec) [#/Vol]Ordered By: Pete Payne on 08-23-2024 Lymphocytes (Bld) [#/Vol] 2.44 10*3/uL 0.83-4.51 [facility] Lymphocytes/100 WBC Auto (Un sp spec)Ordered By: Pete Payne on 08-23-2024 Lymphocytes/100 WBC (Bld) 27.5 % 19-41 [facility] MCV (mean corpuscular volume ) determinationOrdered By: Pete Payne on 08-23-2024 MCV (RBC) [Entitic vol] 93.4 fL 81-99 [facility] Mean corpuscular hemoglobin (MCH) determinationOrdered By: alexisolympiasudarshan Payne on 08-23-2024 MCH (RBC) [Entitic mass] 30.1 pg 27.0-32.0 [facility] Mean corpuscular hemoglobin concentration (MCHC) determinationOrdered By: Pete Payne on 08-23-2024 MCHC (RBC) [Mass/Vol] 32.2 g/dL 32-36 [facility] Mean platelet volume determi nationOrdered By: Pete Payne on 08-23-2024 Platelet mean volume (Bld) [Entitic vol] 10.2 fL 6.2-12.0 [facility] Monocyte percentageOrdered B y: Pete Payne on 08-23-2024 Monocytes/100 WBC (Bld) 7.2 % 0-10 [facility] Neutrophil percentageOrdered By: Pete Payne on 08-23-2024 Neutrophils/100 WBC (Bld) 60.7 % 47-70 [facility] Nucleated red blood cell per centageOrdered By: Pete Payne on 08-23-2024 Nucleated RBC/100 WBC (Bld) [Ratio] 0 % 0-5 [facility] Platelet countOrdered By: Celeste Payne on 08-23-2024 Platelets (Bld) [#/Vol] 352 10*3/uL 150-450 [facility] Potassium measurementOrdered By: Pete Payne on 08-23-2024 Potassium [Moles/Vol] 4.0 mmol/L 3.5-5.1 [facility] RBC Auto (Bld) [#/Vol]Ordere d By: Pete Payne on 08-23-2024 RBC (Bld) [#/Vol] 3.66 10*6/uL Low 4.2-5.4 [facility] Serum anion gap measurementO rdered By: Pete Payne on 08-23-2024 Anion gap [Moles/Vol] 8 mmol/L 5-15 [facility] Serum globulin measurementOr dered By: Pete Payne on 08-23-2024 Globulin (S) [Mass/Vol] 3.5 g/dL 2.2-4.2 [facility] Serum or plasma alanine castro otransferase (ALT) measurementOrdered By: Pete Payne on 08-23-2024 ALT [Catalytic activity/Vol] 12 U/L Low 13-56 [facility] Serum or plasma albumin karri urement (mass/volume)Ordered By: Pete Payne on 08-23-2024 Albumin [Mass/Vol] 2.6 g/dL Low 3.2-5.0 [facility] Serum or plasma alkaline corky sphatase measurementOrdered By: Pete Payne on 08-23-2024 ALP [Catalytic activity/Vol] 54 U/L 45-117 [facility] Serum or plasma calcium karri urement (mass/volume)Ordered By: Pete Payne on 08-23-2024 Calcium [Mass/Vol] 8.5 mg/dL 8.5-10.1 [facility] Serum or plasma creatinine m easurement (mass/volume)Ordered By: Pete Kentrellriteshyulia on 08-23-2024 Creatinine [Mass/Vol] 0.98 mg/dL 0.55-1.02 [facility] Comment on above: The validity of the calculated GFR & GFRAA in patients over 70 years has not been determined. Clinical correlation is essential. Serum or plasma thyroid stim ulating hormone (TSH) measurement (units/volume)Ordered By: Pete Payne on 08-23-2024 TSH Qn 3.840 uIU/mL High 0.358-3.740 [facility] Serum or plasma urea nitroge n measurement (mass/volume)Ordered By: Pete Pfeifferriteshyulia on 08-23-2024 Urea nitrogen [Mass/Vol] 19 mg/dL High 7-18 [facility] Sodium levelOrdered By: Saturnino anne Elmer on 08-23-2024 Sodium [Moles/Vol] 141 mmol/L 136-145 [facility] TSH QnOrdered By: Saturninoanne Kentrellriteshyulia on 08-23-2024 Thyroid Stimulating Hormone (TSH) 3.840 uIU/mL High 0.358-3.740 [facility] Total proteinOrdered By: Ramsey felix Kentrellriteshyulia on 08-23-2024 Protein [Mass/Vol] 6.1 g/dL Low 6.4-8.2 [facility] White blood cell (WBC) count Ordered By: Pete Payne on 08-23-2024 WBC (Bld) [#/Vol] 8.9 10*3/uL 4.4-11.0 [facility] TSH QnOrdered By: Saturninokeishasudarshan Payne on 07-11-2024 Thyroid Stimulating Hormone (TSH) 3.030 uIU/mL 0.358-3.740 [facility] Absolute lymphocyte countOrd ered By: Pete Payne on 08-25-2023 Lymphocytes Auto (Unsp spec) [#/Vol] 2.56 10*3/uL 0.83-4.51 [facility] Automated lymphocyte count a s percentage of total leukocytesOrdered By: Pete Payne on 08-25-2023 Lymphocytes/100 WBC Auto (Unsp spec) 28.1 % 19-41 [facility] Basophil percentageOrdered B y: Pete Payne on 08-25-2023 Basophils/100 WBC (Bld) 1.0 % 0-1 [facility] Bilirubin [Mass/Vol] 1.00 mg/dL 0.20-1.00 [facility] Comment on above: For patients on eltr ombopag therapy, use of Dim[employer] [place] TBIL is not recommended. Chloride [Moles/Vol] 107 mmol/L 98-107 [facility] Eosinophils/100 WBC (Bld) 3.4 % 0-5 [facility] Glucose [Mass/Vol] 143 mg/dL 74-106 [facility] Comment on above: Fasting Glucose resu lt greater than or equal to 126 mg/dL suggests DIABETES MELLITUS per A.D.A. criteria. Hemoglobin (Bld) [Mass/Vol] 11.1 g/dL 12.0-15.0 [facility] Monocytes/100 WBC (Bld) 6.9 % 0-10 [facility] Neutrophils (Bld) [#/Vol] 5.5 10*3/uL 2.0-7.7 [facility] Neutrophils/100 WBC (Bld) 60.3 % 47-70 [facility] Potassium [Moles/Vol] 4.1 mmol/L 3.5-5.1 [facility] Protein [Mass/Vol] 6.8 g/dL 6.4-8.2 [facility] Sodium [Moles/Vol] 140 mmol/L 136-145 [facility] WBC (Bld) [#/Vol] 9.1 10*3/uL 4.4-11.0 [facility] Determination of erythrocyte mean corpuscular volume (MCV)Ordered By: Pete Payne on 08-25-2023 MCV (RBC) [Entitic vol] 93.5 fL 81-99 [facility] Erythrocyte distribution wid th ratioOrdered By: Pete Payne on 08-25-2023 Erythrocyte distribution width (RBC) [Ratio] 12.9 % 11.6-14.6 [facility] Erythrocyte distribution wid th standard deviationOrdered By: Pete Payne on 08-25-2023 Erythrocyte distribution width (RBC) [Entitic vol] 44.3 fL 35.1-43.9 [facility] Hematocrit Auto (Bld) [Volum e fraction]Ordered By: Pete Payne on 08-25-2023 Hematocrit (Bld) [Volume fraction] 34.5 % 37-47 [facility] Immature granulocytes/100 WB C Auto (Bld)Ordered By: alexisolympiasudarshan Payne on 08-25-2023 Immature granulocytes/100 WBC (Bld) 0.300 % 0.0-0.9 [facility] Comment on above: IG% - Immature Granu locytes (promyelocytes, myelocytes and metamyelocytes) > 1% indicates that a LEFT SHIFT is Present. Laboratory - Chemistry and C hemistry - challengeOrdered By: Saturninoolympiasudarshan Payne on 08-25-2023 Albumin/Globulin [Mass ratio] 0.8 {ratio} 0.9-2.4 [facility] ALP [Catalytic activity/Vol] 62 U/L 45-117 [facility] ALT [Catalytic activity/Vol] 14 U/L 13-56 [facility] CO2 [Moles/Vol] 25.0 mmol/L 21.0-32.0 [facility] Globulin (S) [Mass/Vol] 3.8 g/dL 2.2-4.2 [facility] Urea nitrogen/Creatinine [Mass ratio] 20.9 mg/mg 10-20 [facility] Laboratory - Hematology and Cell countsOrdered By: Pete Payne on 08-25-2023 MCH (RBC) [Entitic mass] 30.1 pg 27.0-32.0 [facility] MCHC (RBC) [Mass/Vol] 32.2 g/dL 32-36 [facility] Nucleated RBC/100 WBC (Bld) [Ratio] 0 % 0-5 [facility] Platelet mean volume (Bld) [Entitic vol] 10.2 fL 6.2-12.0 [facility] Platelets (Bld) [#/Vol] 373 10*3/uL 150-450 [facility] No Panel InformationOrdered By: Pete Payne on 08-25-2023 Estimated GFR (MDRD) Amer 71 mL/min >60 [facility] Comment on above: GFR Calc Estimated GFR (MDRD) Non-Af Amer 59 mL/min >60 [facility] Comment on above: Non- GFR Calc RBC Auto (Bld) [#/Vol]Ordere d By: Pete Payne on 08-25-2023 RBC (Bld) [#/Vol] 3.69 10*6/uL 4.2-5.4 [facility] Serum or plasma calcium karri urement (mass/volume)Ordered By: Pete Payne on 08-25-2023 Calcium [Mass/Vol] 9.4 mg/dL 8.5-10.1 [facility] Serum or plasma creatinine m easurement (mass/volume)Ordered By: Pete Payne on 08-25-2023 Creatinine [Mass/Vol] 0.96 mg/dL 0.55-1.02 [facility] Comment on above: The validity of the calculated GFR & GFRAA in patients over 70 years has not been determined. Clinical correlation is essential. Serum or plasma urea nitroge n measurement (mass/volume)Ordered By: Pete Payne on 08-25-2023 Urea nitrogen [Mass/Vol] 20 mg/dL 7-18 [facility] Thin prep Papanicolaou smear with manual screeningOrdered By: Pete Payne on 08-25-2023 Thin prep Papanicolaou smear with manual screening 3.0 g/dL 3.2-5.0 [facility] Thin prep Papanicolaou smear with manual screening 13 U/L 15-37 [facility] Thin prep Papanicolaou smear with manual screening 8 5-15 [facility] Whole blood hemoglobin A1c/t otal hemoglobin ratio (mass fraction)Ordered By: Pete Payne on 08-25-2023 HbA1c (Bld) [Mass fraction] 6.9 % 3.8-5.6 [facility] Comment on above: Normal < 5.7 % Predi abetic 5.7 - 6.4 % Diabetic >or= 6.5 % Please note range changes. Laboratory - Chemistry and C hemistry - challengeOrdered By: Pete Payne on 03-16-2023 Free T4 [Mass/Vol] 1.07 ng/dL 0.76-1.46 [facility] No Panel InformationOrdered By: [facility] Gainesvillesudarshan Pfeifferyulia on 03-16-2023 Thyroid Stimulating Hormone (TSH) 4.03 uIU/mL 0.358-3.74 [facility] Total Triiodothyronine 1.24 ng/mL 0.6-1.81 [facility] Absolute lymphocyte countOrd ered By: [facility] Kentrellyulia on 03-12-2023 Lymphocytes Auto (Unsp spec) [#/Vol] 2.46 10*3/uL 0.83-4.51 [facility] Basophil percentageOrdered B y: Pete Pfeifferyulia on 03-12-2023 Basophils/100 WBC (Bld) 1.1 % 0-1 [facility] Bilirubin [Mass/Vol] 0.70 mg/dL 0.20-1.00 [facility] Comment on above: For patients on eltr ombopag therapy, use of [employer] [place] TBIL is not recommended. Chloride [Moles/Vol] 106 mmol/L 98-107 [facility] Cholesterol [Mass/Vol] 106 mg/dL <200 [facility] Comment on above: <200 mg/dL Desirable 200-240 mg/dL Borderline >240 mg/dL High Risk Eosinophils/100 WBC (Bld) 2.8 % 0-5 [facility] Glucose [Mass/Vol] 151 mg/dL 74-106 [facility] Comment on above: Fasting Glucose resu lt greater than or equal to 126 mg/dL suggests DIABETES MELLITUS per A.D.A. criteria. Neutrophils (Bld) [#/Vol] 4.8 10*3/uL 2.0-7.7 [facility] Neutrophils/100 WBC (Bld) 57.0 % 47-70 [facility] Potassium [Moles/Vol] 4.1 mmol/L 3.5-5.1 [facility] Protein [Mass/Vol] 6.3 g/dL 6.4-8.2 [facility] Sodium [Moles/Vol] 138 mmol/L 136-145 [facility] Triglyceride [Mass/Vol] 135 mg/dL <199 [facility] Comment on above: The drugs N-Acetylcy steine and Metamizole may falsely depress this assay.Serum Triglycerides Reference Interval Normal <150 mg/dL Borderline high 150 - 199 mg/dL High 200 - 499 mg/dL Very High > or = 500 mg/dL WBC (Bld) [#/Vol] 8.3 10*3/uL 4.4-11.0 [facility] Blood erythrocytes count (nu mber/volume)Ordered By: Pete Payne on 03-12-2023 RBC (Bld) [#/Vol] 3.59 10*6/uL 4.2-5.4 [facility] Blood hemoglobin measurement (mass/volume)Ordered By: Pete Payne on 03-12-2023 Hemoglobin (Bld) [Mass/Vol] 11.0 g/dL 12.0-15.0 [facility] Blood lymphocytes/100 leukoc ytesOrdered By: Pete Payne on 03-12-2023 Lymphocytes/100 WBC (Bld) 29.5 % 19-41 [facility] Blood monocytes/100 leukocyt esOrdered By: Pete Payne on 03-12-2023 Monocytes/100 WBC (Bld) 9.2 % 0-10 [facility] Blood platelet mean volumeOr dered By: Pete Payne on 03-12-2023 Platelet mean volume (Bld) [Entitic vol] 9.8 fL 6.2-12.0 [facility] Determination of erythrocyte mean corpuscular volume (MCV)Ordered By: Pete Payne on 03-12-2023 MCV (RBC) [Entitic vol] 93.9 fL 81-99 [facility] Hematocrit Auto (Bld) [Volum e fraction]Ordered By: Pete Payne on 03-12-2023 Hematocrit (Bld) [Volume fraction] 33.7 % 37-47 [facility] Laboratory - Chemistry and C hemistry - challengeOrdered By: Pete Payne on 03-12-2023 ALP [Catalytic activity/Vol] 57 U/L 45-117 [facility] ALT [Catalytic activity/Vol] 16 U/L 13-56 [facility] CO2 [Moles/Vol] 25.0 mmol/L 21.0-32.0 [facility] Globulin (S) [Mass/Vol] 3.4 g/dL 2.2-4.2 [facility] Urea nitrogen/Creatinine [Mass ratio] 16.0 mg/mg 10-20 [facility] - Hematology and Cell countsOrdered By: Pete Payne on 03-12-2023 Erythrocyte distribution width (RBC) [Entitic vol] 42.9 fL 35.1-43.9 [facility] Erythrocyte distribution width (RBC) [Ratio] 12.4 % 11.6-14.6 [facility] Immature granulocytes/100 WBC (Bld) 0.400 % 0.0-0.9 [facility] Comment on above: IG% - Immature Granu locytes (promyelocytes, myelocytes and metamyelocytes) > 1% indicates that a LEFT SHIFT is Present. MCH (RBC) [Entitic mass] 30.6 pg 27.0-32.0 [facility] Nucleated RBC/100 WBC (Bld) [Ratio] 0 % 0-5 [facility] MCHC Auto (RBC) [Mass/Vol]Or dered By: Pete Payne on 03-12-2023 MCHC (RBC) [Mass/Vol] 32.6 g/dL 32-36 [facility] No Panel InformationOrdered By: Pete Payne on 03-12-2023 Estimated GFR (MDRD) Amer 63 mL/min >60 [facility] Comment on above: GFR Calc Estimated GFR (MDRD) Non-Af Amer 52 mL/min >60 [facility] Comment on above: Non- GFR Calc Thyroid Stimulating Hormone (TSH) 4.75 uIU/mL 0.358-3.74 [facility] Vitamin D 25-Hydroxy 107.1 ng/mL [facility] Comment on above: Vitamin D 25(OH) [...] 03-12-2023 Platelets (Bld) [#/Vol] 361 10*3/uL 150-450 [facility] Serum or plasma albumin karri urement (mass/volume)Ordered By: Pete Payne on 03-12-2023 Albumin [Mass/Vol] 2.9 g/dL 3.2-5.0 [facility] Serum or plasma albumin/glob ulin mass ratioOrdered By: Pete Payne on 03-12-2023 Albumin/Globulin [Mass ratio] 0.9 {ratio} 0.9-2.4 [facility] Serum or plasma calcium karri urement (mass/volume)Ordered By: Pete Payne on 03-12-2023 Calcium [Mass/Vol] 9.0 mg/dL 8.5-10.1 [facility] Serum or plasma cholesterol in HDL measurement (mass/volume)Ordered By: Pete Payne on 03-12-2023 Cholesterol in HDL [Mass/Vol] 46 mg/dL >40 [facility] Comment on above: The drugs N-Acetylcy steine and Metamizole may falsely depress this assay. Reference Range HDL <40 mg/dL Low HDL Cholesterol HDL >or= 60 mg/dL High HDL Cholesterol Serum or plasma cholesterol in VLDL measurement (mass/volume)Ordered By: Pete Payne on 03-12-2023 Cholesterol in VLDL [Mass/Vol] 27 mg/dL 5-40 [facility] Serum or plasma creatinine m easurement (mass/volume)Ordered By: Pete Payne on 03-12-2023 Creatinine [Mass/Vol] 1.06 mg/dL 0.55-1.02 [facility] Comment on above: The validity of the calculated GFR & GFRAA in patients over 70 years has not been determined. Clinical correlation is essential. Serum or plasma low density lipoprotein (LDL) cholesterol measurement (mass/volume)Ordered By: Pete Payne on 03-12-2023 Cholesterol in LDL [Mass/Vol] 33 mg/dL 0-130 [facility] Serum or plasma urea nitroge n measurement (mass/volume)Ordered By: Pete Payne on 03-12-2023 Urea nitrogen [Mass/Vol] 17 mg/dL 7-18 [facility] Thin prep Papanicolaou smear with manual screeningOrdered By: Pete Payne on 03-12-2023 Thin prep Papanicolaou smear with manual screening 13 U/L 15-37 [facility] Thin prep Papanicolaou smear with manual screening 7 5-15 [facility] Whole blood hemoglobin A1c/t otal hemoglobin ratio (mass fraction)Ordered By: Pete Payne on 03-12-2023 HbA1c (Bld) [Mass fraction] 7.2 % 3.8-5.6 [facility] Comment on above: Normal < 5.7 % Predi abetic 5.7 - 6.4 % Diabetic >or= 6.5 % Please note range changes. Absolute lymphocyte countOrd ered By: Pete Payne on 12-01-2022 Lymphocytes Auto (Unsp spec) [#/Vol] 2.66 10*3/uL 0.83-4.51 [facility] Basophil percentageOrdered B y: Pete Payne on 12-01-2022 Basophils/100 WBC (Bld) 1.0 % 0-1 [facility] Bilirubin [Mass/Vol] 1.00 mg/dL 0.20-1.00 [facility] Comment on above: For patients on eltr ombopag therapy, use of Dimension [place] TBIL is not recommended. Chloride [Moles/Vol] 100 mmol/L 98-107 [facility] Eosinophils/100 WBC (Bld) 2.3 % 0-5 [facility] Glucose [Mass/Vol] 152 mg/dL 74-106 [facility] Comment on above: Fasting Glucose resu lt greater than or equal to 126 mg/dL suggests DIABETES MELLITUS per A.D.A. criteria. Neutrophils (Bld) [#/Vol] 5.8 10*3/uL 2.0-7.7 [facility] Neutrophils/100 WBC (Bld) 60.2 % 47-70 [facility] Potassium [Moles/Vol] 4.3 mmol/L 3.5-5.1 [facility] Protein [Mass/Vol] 6.1 g/dL 6.4-8.2 [facility] Sodium [Moles/Vol] 138 mmol/L 136-145 [facility] WBC (Bld) [#/Vol] 9.7 10*3/uL 4.4-11.0 [facility] Blood erythrocytes count (nu mber/volume)Ordered By: Pete Payne on 12-01-2022 RBC (Bld) [#/Vol] 3.46 10*6/uL 4.2-5.4 [facility] Blood hemoglobin measurement (mass/volume)Ordered By: Pete Payne on 12-01-2022 Hemoglobin (Bld) [Mass/Vol] 10.8 g/dL 12.0-15.0 [facility] Blood lymphocytes/100 leukoc ytesOrdered By: Pete Payne on 12-01-2022 Lymphocytes/100 WBC (Bld) 27.5 % 19-41 [facility] Blood monocytes/100 leukocyt esOrdered By: Pete Payne on 12-01-2022 Monocytes/100 WBC (Bld) 8.4 % 0-10 [facility] Blood platelet mean volumeOr dered By: Pete Payne on 12-01-2022 Platelet mean volume (Bld) [Entitic vol] 9.9 fL 6.2-12.0 [facility] Determination of erythrocyte mean corpuscular volume (MCV)Ordered By: Pete Payne on 12-01-2022 MCV (RBC) [Entitic vol] 97.1 fL 81-99 [facility] Hematocrit Auto (Bld) [Volum e fraction]Ordered By: Pete Payne on 12-01-2022 Hematocrit (Bld) [Volume fraction] 33.6 % 37-47 [facility] - Chemistry and C hemistry - challengeOrdered By: Pete Payne on 12-01-2022 ALP [Catalytic activity/Vol] 60 U/L 45-117 [facility] ALT [Catalytic activity/Vol] 22 U/L 13-56 [facility] CO2 [Moles/Vol] 29.0 mmol/L 21.0-32.0 [facility] Globulin (S) [Mass/Vol] 3.3 g/dL 2.2-4.2 [facility] Urea nitrogen/Creatinine [Mass ratio] 16.1 mg/mg 10-20 [facility] - Hematology and Cell countsOrdered By: Pete Payne on 12-01-2022 Erythrocyte distribution width (RBC) [Entitic vol] 44.6 fL 35.1-43.9 [facility] Erythrocyte distribution width (RBC) [Ratio] 12.5 % 11.6-14.6 [facility] Immature granulocytes/100 WBC (Bld) 0.600 % 0.0-0.9 [facility] Comment on above: IG% - Immature Granu locytes (promyelocytes, myelocytes and metamyelocytes) > 1% indicates that a LEFT SHIFT is Present. MCH (RBC) [Entitic mass] 31.2 pg 27.0-32.0 [facility] Nucleated RBC/100 WBC (Bld) [Ratio] 0 % 0-5 [facility] MCHC Auto (RBC) [Mass/Vol]Or dered By: Pete Payne on 12-01-2022 MCHC (RBC) [Mass/Vol] 32.1 g/dL 32-36 [facility] No Panel InformationOrdered By: Pete Payne on 12-01-2022 Estimated GFR (MDRD) Amer 59 mL/min >60 [facility] Comment on above: GFR Calc Estimated GFR (MDRD) Non-Af Amer 49 mL/min >60 [facility] Comment on above: Non- GFR Calc Platelets bldOrdered By: Ramsey Payne on 12-01-2022 Platelets (Bld) [#/Vol] 517 10*3/uL 150-450 [facility] Serum or plasma albumin karri urement (mass/volume)Ordered By: Pete Payne on 12-01-2022 Albumin [Mass/Vol] 2.8 g/dL 3.2-5.0 [facility] Serum or plasma albumin/glob ulin mass ratioOrdered By: Pete Payne on 12-01-2022 Albumin/Globulin [Mass ratio] 0.8 {ratio} 0.9-2.4 [facility] Serum or plasma calcium karri urement (mass/volume)Ordered By: Pete Payne on 12-01-2022 Calcium [Mass/Vol] 9.0 mg/dL 8.5-10.1 [facility] Serum or plasma creatinine m easurement (mass/volume)Ordered By: Pete Payne on 12-01-2022 Creatinine [Mass/Vol] 1.12 mg/dL 0.55-1.02 [facility] Comment on above: The validity of the calculated GFR & GFRAA in patients over 70 years has not been determined. Clinical correlation is essential. Serum or plasma urea nitroge n measurement (mass/volume)Ordered By: Pete Payne on 12-01-2022 Urea nitrogen [Mass/Vol] 18 mg/dL 7-18 [facility] Thin prep Papanicolaou smear with manual screeningOrdered By: Pete Payne on 12-01-2022 Thin prep Papanicolaou smear with manual screening 15 U/L 15-37 [facility] Thin prep Papanicolaou smear with manual screening 9 5-15 [facility] Glucose Glucometer (BldC) [M ass/Vol]Ordered By: Dr. Crooks on 11-29-2022 Glucose [Mass/Vol] 95 mg/dL 74-106 [facility] Comment on above: MANAGEMENT OF PATIEN T CARE PER NURSING PROTOCOL Absolute lymphocyte countOrd ered By: Dr. Crooks on 11-28-2022 Lymphocytes Auto (Unsp spec) [#/Vol] 2.74 10*3/uL 0.83-4.51 [facility] Basophil percentageOrdered B y: Dr. Crooks on 11-28-2022 Basophils/100 WBC (Bld) 0.9 % 0-1 [facility] Chloride [Moles/Vol] 104 mmol/L 98-107 [facility] Eosinophils/100 WBC (Bld) 2.2 % 0-5 [facility] Glucose [Mass/Vol] 146 mg/dL 74-106 [facility] Comment on above: Fasting Glucose resu lt greater than or equal to 126 mg/dL suggests DIABETES MELLITUS per A.D.A. criteria. Neutrophils (Bld) [#/Vol] 7.4 10*3/uL 2.0-7.7 [facility] Neutrophils/100 WBC (Bld) 65.0 % 47-70 [facility] Potassium [Moles/Vol] 4.2 mmol/L 3.5-5.1 [facility] Sodium [Moles/Vol] 137 mmol/L 136-145 [facility] WBC (Bld) [#/Vol] 11.4 10*3/uL 4.4-11.0 [facility] Blood erythrocytes count (nu mber/volume)Ordered By: Dr. Crooks on 11-28-2022 RBC (Bld) [#/Vol] 3.62 10*6/uL 4.2-5.4 [facility] Blood hemoglobin measurement (mass/volume)Ordered By: Dr. Crooks on 11-28-2022 Hemoglobin (Bld) [Mass/Vol] 11.2 g/dL 12.0-15.0 [facility] Blood lymphocytes/100 leukoc ytesOrdered By: Dr. Crooks on 11-28-2022 Lymphocytes/100 WBC (Bld) 24.1 % 19-41 [facility] Blood monocytes/100 leukocyt esOrdered By: Dr. Crooks on 11-28-2022 Monocytes/100 WBC (Bld) 7.2 % 0-10 [facility] Blood platelet mean volumeOr dered By: Dr. Crooks on 11-28-2022 Platelet mean volume (Bld) [Entitic vol] 9.3 fL 6.2-12.0 [facility] Determination of erythrocyte mean corpuscular volume (MCV)Ordered By: Dr. Crooks on 11-28-2022 MCV (RBC) [Entitic vol] 96.4 fL 81-99 [facility] Glucose Glucometer (BldC) [M ass/Vol]Ordered By: Dr. Crooks on 11-28-2022 Glucose [Mass/Vol] 146 mg/dL 74-106 [facility] Comment on above: MANAGEMENT OF PATIEN T CARE PER NURSING PROTOCOL Hematocrit Auto (Bld) [Volum e fraction]Ordered By: Dr. Crooks on 11-28-2022 Hematocrit (Bld) [Volume fraction] 34.9 % 37-47 [facility] - Chemistry and C hemistry - challengeOrdered By: Dr. Crooks on 11-28-2022 CO2 [Moles/Vol] 28.0 mmol/L 21.0-32.0 [facility] Urea nitrogen/Creatinine [Mass ratio] 18.2 mg/mg 10-20 [facility] - Hematology and Cell countsOrdered By: Dr. Crooks on 11-28-2022 Erythrocyte distribution width (RBC) [Entitic vol] 43.3 fL 35.1-43.9 [facility] Erythrocyte distribution width (RBC) [Ratio] 12.4 % 11.6-14.6 [facility] Immature granulocytes/100 WBC (Bld) 0.600 % 0.0-0.9 [facility] Comment on above: IG% - Immature Granu locytes (promyelocytes, myelocytes and metamyelocytes) > 1% indicates that a LEFT SHIFT is Present. MCH (RBC) [Entitic mass] 30.9 pg 27.0-32.0 [facility] Nucleated RBC/100 WBC (Bld) [Ratio] 0 % 0-5 [facility] MCHC Auto (RBC) [Mass/Vol]Or dered By: Dr. Crooks on 11-28-2022 MCHC (RBC) [Mass/Vol] 32.1 g/dL 32-36 [facility] No Panel InformationOrdered By: Dr. Crooks on 11-28-2022 Estimated Creatinine Clearance Calc 37.22 ml/min [facility] Estimated GFR (MDRD) Amer 73 mL/min >60 [facility] Comment on above: GFR Calc Estimated GFR (MDRD) Non-Af Amer 61 mL/min >60 [facility] Comment on above: Non- GFR Calc Platelets bldOrdered By: Dr. Crooks on 11-28-2022 Platelets (Bld) [#/Vol] 445 10*3/uL 150-450 [facility] Serum or plasma calcium karri urement (mass/volume)Ordered By: Dr. Crooks on 11-28-2022 Calcium [Mass/Vol] 8.9 mg/dL 8.5-10.1 [facility] Serum or plasma creatinine m easurement (mass/volume)Ordered By: Dr. Crooks on 11-28-2022 Creatinine [Mass/Vol] 0.93 mg/dL 0.55-1.02 [facility] Comment on above: The validity of the calculated GFR & GFRAA in patients over 70 years has not been determined. Clinical correlation is essential. Serum or plasma urea nitroge n measurement (mass/volume)Ordered By: Dr. Crooks on 11-28-2022 Urea nitrogen [Mass/Vol] 17 mg/dL 7-18 [facility] Thin prep Papanicolaou smear with manual screeningOrdered By: Dr. Crooks on 11-28-2022 Thin prep Papanicolaou smear with manual screening 5 5-15 [facility] COVID-19 virus antigen assay Ordered By: Sylvester Crooks on 11-16-2022 SARS-CoV-2 (COVID-19) Ag IA.rapid Ql (Resp) [facility] COVID-19 virus antigen assay Ordered By: Dr. Crooks on 11-16-2022 SARS-CoV-2 (COVID-19) Ag IA.rapid Ql (Resp) [facility] Culture, urineOrdered By: Dr Néstor Crooks on 11-16-2022 Bacteria identified Cx Nom (U) Escherichia coli [facility] Bacteria identified Cx Nom (U) Klebsiella pneumoniae sp pneum [facility] Basophil percentageOrdered B y: Dr. Crooks on 11-14-2022 Basophil percentage 10-25 SEEN /hpf 0-5 [facility] Bilirubin Test strip Ql (U)O rdered By: Dr. Crooks on 11-14-2022 Bilirubin Ql (U) Negative Negative [facility] Culture, urineOrdered By: Raffi Crooks on 11-14-2022 Bacteria identified Cx Nom (U) Escherichia coli [facility] Bacteria identified Cx Nom (U) Klebsiella pneumoniae sp pneum [facility] Ketones Test strip Ql (U)Ord ered By: Dr. Crooks on 11-14-2022 Ketones Ql (U) Negative Negative [facility] Mucus LM Ql (Urine sed)Order ed By: Dr. Crooks on 11-14-2022 Mucus Ql (Urine sed) 0 SEEN /hpf [facility] Nitrite Test strip Ql (U)Ord ered By: Dr. Crooks on 11-14-2022 Nitrite Ql (U) Negative Negative [facility] No Panel InformationOrdered By: Dr. Crooks on 11-14-2022 Urine Transitional Epithelial Cells 0-5 SEEN /hpf 0-5 [facility] Protein Test strip Ql (U)Ord ered By: Dr. Crooks on 11-14-2022 Protein Ql (U) Negative Negative [facility] Squamous epithelial cells de tection in urine sediment by light microscopyOrdered By: Dr. Crooks on 11-14-2022 Epithelial cells.squamous LM Ql (Urine sed) 0-5 SEEN /hpf 5-10 [facility] Urine blood detectionOrdered By: Dr. Crooks on 11-14-2022 RBC Ql (U) 10 /ul Negative [facility] RBC Ql (U) 0-5 SEEN /hpf 0-5 [facility] Urine clarityOrdered By: Dr. Crooks on 11-14-2022 Clarity (U) Sl. Cloudy Clear [facility] Urine color determinationOrd ered By: Dr. Crooks on 11-14-2022 Color (U) Yellow Yellow [facility] Urine glucose detectionOrder ed By: Dr. Crooks on 11-14-2022 Glucose Ql (U) 100 mg/dl Normal [facility] Urine leukocyte esterase det ection by dipstickOrdered By: Dr. Crooks on 11-14-2022 Leukocyte esterase Test strip Ql (U) 100 /ul Negative [facility] Urine pHOrdered By: Dr. Crooks on 11-14-2022 pH (U) 6.0 [pH] 5.0 - 8.0 [facility] Urine sediment bacteria coun t by microscopy (number/high power field)Ordered By: Dr. Crooks on 11-14-2022 Bacteria LM.HPF (Urine sed) [#/Area] 1 /[HPF] None Seen [facility] Urine specific gravity measu rementOrdered By: Dr. Crooks on 11-14-2022 Specific gravity (U) [Rel density] 1.010 1.002-1.030 [facility] Urobilinogen Auto test strip Ql (U)Ordered By: Dr. Crooks on 11-14-2022 Urobilinogen Ql (U) Normal mg/dl Normal [facility] Absolute lymphocyte countOrd ered By: Dr. Betancur on 11-13-2022 Lymphocytes Auto (Unsp spec) [#/Vol] 3.26 10*3/uL 0.83-4.51 [facility] Basophil percentageOrdered B y: Dr. Betancur on 11-13-2022 Basophils/100 WBC (Bld) 0.7 % 0-1 [facility] Bilirubin [Mass/Vol] 1.00 mg/dL 0.20-1.00 [facility] Comment on above: For patients on eltr ombopag therapy, use of Dimension [place] TBIL is not recommended. Chloride [Moles/Vol] 106 mmol/L 98-107 [facility] Eosinophils/100 WBC (Bld) 1.7 % 0-5 [facility] Glucose [Mass/Vol] 150 mg/dL 74-106 [facility] Comment on above: Fasting Glucose resu lt greater than or equal to 126 mg/dL suggests DIABETES MELLITUS per A.D.A. criteria. Neutrophils (Bld) [#/Vol] 8.7 10*3/uL 2.0-7.7 [facility] Neutrophils/100 WBC (Bld) 66.3 % 47-70 [facility] Potassium [Moles/Vol] 3.9 mmol/L 3.5-5.1 [facility] Protein [Mass/Vol] 5.6 g/dL 6.4-8.2 [facility] Sodium [Moles/Vol] 132 mmol/L 136-145 [facility] WBC (Bld) [#/Vol] 13.2 10*3/uL 4.4-11.0 [facility] Blood erythrocytes count (nu mber/volume)Ordered By: Dr. Betancur on 11-13-2022 RBC (Bld) [#/Vol] 3.32 10*6/uL 4.2-5.4 [facility] Blood hemoglobin measurement (mass/volume)Ordered By: Dr. Betancur on 11-13-2022 Hemoglobin (Bld) [Mass/Vol] 10.5 g/dL 12.0-15.0 [facility] Blood lymphocytes/100 leukoc ytesOrdered By: Dr. Betancur on 11-13-2022 Lymphocytes/100 WBC (Bld) 24.7 % 19-41 [facility] Blood monocytes/100 leukocyt esOrdered By: Dr. Betancur on 11-13-2022 Monocytes/100 WBC (Bld) 6.2 % 0-10 [facility] Blood platelet mean volumeOr dered By: Dr. Betancur on 11-13-2022 Platelet mean volume (Bld) [Entitic vol] 8.6 fL 6.2-12.0 [facility] COVID-19 virus antigen assay Ordered By: Bernice Betancur on 11-13-2022 SARS-CoV-2 (COVID-19) Ag IA.rapid Ql (Resp) [facility] COVID-19 virus antigen assay Ordered By: Dr. Betancur on 11-13-2022 SARS-CoV-2 (COVID-19) Ag IA.rapid Ql (Resp) [facility] Determination of erythrocyte mean corpuscular volume (MCV)Ordered By: Dr. Betancur on 11-13-2022 MCV (RBC) [Entitic vol] 92.5 fL 81-99 [facility] Direct bilirubinOrdered By: Dr. Betancur on 11-13-2022 Bilirubin.direct [Mass/Vol] 0.34 mg/dL 0.00-0.30 [facility] Hematocrit Auto (Bld) [Volum e fraction]Ordered By: Dr. Betancur on 11-13-2022 Hematocrit (Bld) [Volume fraction] 30.7 % 37-47 [facility] Iron measurement (mass/mass) Ordered By: Dr. Betancur on 11-13-2022 Iron (Unsp spec) [Mass/Mass] 48 ug/dL 50-170 [facility] - Chemistry and C hemistry - challengeOrdered By: Dr. Betancur on 11-13-2022 ALP [Catalytic activity/Vol] 35 U/L 45-117 [facility] ALT [Catalytic activity/Vol] 19 U/L 13-56 [facility] CO2 [Moles/Vol] 23.0 mmol/L 21.0-32.0 [facility] Cobalamin (Vitamin B12) [Mass/Vol] 583 pg/mL 211-911 [facility] Free T4 [Mass/Vol] 1.48 ng/dL 0.76-1.46 [facility] Globulin (S) [Mass/Vol] 2.8 g/dL 2.2-4.2 [facility] Urea nitrogen/Creatinine [Mass ratio] 17.2 mg/mg 10-20 [facility] - Hematology and Cell countsOrdered By: Dr. Betancur on 11-13-2022 Erythrocyte distribution width (RBC) [Entitic vol] 42.5 fL 35.1-43.9 [facility] Erythrocyte distribution width (RBC) [Ratio] 12.7 % 11.6-14.6 [facility] Immature granulocytes/100 WBC (Bld) 0.400 % 0.0-0.9 [facility] Comment on above: IG% - Immature Granu locytes (promyelocytes, myelocytes and metamyelocytes) > 1% indicates that a LEFT SHIFT is Present. MCH (RBC) [Entitic mass] 31.6 pg 27.0-32.0 [facility] Nucleated RBC/100 WBC (Bld) [Ratio] 0 % 0-5 [facility] MCHC Auto (RBC) [Mass/Vol]Or dered By: Dr. Betancur on 11-13-2022 MCHC (RBC) [Mass/Vol] 34.2 g/dL 32-36 [facility] No Panel InformationOrdered By: Dr. Betancur on 11-13-2022 Estimated Creatinine Clearance Calc 35.38 ml/min [facility] Estimated GFR (MDRD) Amer 103 mL/min >60 [facility] Comment on above: GFR Calc Estimated GFR (MDRD) Non-Af Amer 85 mL/min >60 [facility] Comment on above: Non- GFR Calc Thyroid Stimulating Hormone (TSH) 1.14 uIU/mL 0.358-3.74 [facility] Total Iron Binding Capacity 214 ug/dL 250-450 [facility] Platelets bldOrdered By: Dr. Betancur on 11-13-2022 Platelets (Bld) [#/Vol] 370 10*3/uL 150-450 [facility] Serum or plasma albumin karri urement (mass/volume)Ordered By: Dr. Betancur on 11-13-2022 Albumin [Mass/Vol] 2.8 g/dL 3.2-5.0 [facility] Serum or plasma calcium karri urement (mass/volume)Ordered By: Dr. Betancur on 11-13-2022 Calcium [Mass/Vol] 8.3 mg/dL 8.5-10.1 [facility] Serum or plasma creatinine m easurement (mass/volume)Ordered By: Dr. Betancur on 11-13-2022 Creatinine [Mass/Vol] 0.70 mg/dL 0.55-1.02 [facility] Comment on above: The validity of the calculated GFR & GFRAA in patients over 70 years has not been determined. Clinical correlation is essential. Serum or plasma ferritin jolanta surement (mass/volume)Ordered By: Dr. Betancur on 11-13-2022 Ferritin [Mass/Vol] 195 ng/mL 8-252 [facility] Serum or plasma urea nitroge n measurement (mass/volume)Ordered By: Dr. Betancur on 11-13-2022 Urea nitrogen [Mass/Vol] 12 mg/dL 7-18 [facility] Thin prep Papanicolaou smear with manual screeningOrdered By: Dr. Betancur on 11-13-2022 Thin prep Papanicolaou smear with manual screening 16 U/L 15-37 [facility] Thin prep Papanicolaou smear with manual screening 3 5-15 [facility] Glucose Glucometer (BldC) [M ass/Vol]Ordered By: Dr. Brody on 11-12-2022 Glucose [Mass/Vol] 121 mg/dL 74-106 [facility] Comment on above: MANAGEMENT OF PATIEN T CARE PER NURSING PROTOCOL No Panel InformationOrdered By: Dr. Brody on 11-12-2022 Vitamin D 25-Hydroxy 43.8 ng/mL [facility] Comment on above: Vitamin D 25(OH) Sta tus Range Deficiency <20 ng/mL (50nmol/L) Insufficiency 20 - 30 ng/mL (50 - 75 nmol/L) Sufficiency 30 - 100 ng/mL (75 - 250 nmol/L) Toxicity >100 ng/mL (>250 nmol/L) Serum or plasma cortisol jolanta surement (mass/volume)Ordered By: Dr. Brody on 11-12-2022 Cortisol [Mass/Vol] 28.20 ug/dL 3.44-22.45 [facility] Comment on above: Adult (AM) 5.27 - 22 .45 ug/dL Adult (PM) 3.44 - 16.76 ug/dLPlease note revised CORTISOL reference range effective 2019. Whole blood hemoglobin A1c/t otal hemoglobin ratio (mass fraction)Ordered By: Dr. Betancur on 11-12-2022 HbA1c (Bld) [Mass fraction] 7.0 % 3.8-5.6 [facility] Comment on above: Normal < 5.7 % Predi abetic 5.7 - 6.4 % Diabetic >or= 6.5 % Please note range changes. Absolute lymphocyte countOrd ered By: Dr. Ewing on 11-11-2022 Lymphocytes Auto (Unsp spec) [#/Vol] 4.35 10*3/uL 0.83-4.51 [facility] Basophil percentageOrdered B y: Dr. Ewing on 11-11-2022 Basophil percentage 0 SEEN /hpf 0-5 [facility] Ammonia (P) [Moles/Vol] 16.0 umol/L 11-32 [facility] Basophils/100 WBC (Bld) 0.6 % 0-1 [facility] Bilirubin [Mass/Vol] 1.90 mg/dL 0.20-1.00 [facility] Comment on above: For patients on eltr ombopag therapy, use of Dimension [place] TBIL is not recommended. Chloride [Moles/Vol] 91 mmol/L 98-107 [facility] Eosinophils/100 WBC (Bld) 0.9 % 0-5 [facility] Glucose [Mass/Vol] 159 mg/dL 74-106 [facility] Comment on above: Fasting Glucose resu lt greater than or equal to 126 mg/dL suggests DIABETES MELLITUS per A.D.A. criteria. Neutrophils (Bld) [#/Vol] 8.3 10*3/uL 2.0-7.7 [facility] Neutrophils/100 WBC (Bld) 59.4 % 47-70 [facility] Potassium [Moles/Vol] 3.4 mmol/L 3.5-5.1 [facility] Protein [Mass/Vol] 7.4 g/dL 6.4-8.2 [facility] Sodium [Moles/Vol] 127 mmol/L 136-145 [facility] WBC (Bld) [#/Vol] 13.9 10*3/uL 4.4-11.0 [facility] Bilirubin Test strip Ql (U)O rdered By: Dr. Ewing on 11-11-2022 Bilirubin Ql (U) Negative Negative [facility] Blood erythrocytes count (nu mber/volume)Ordered By: Dr. Ewing on 11-11-2022 RBC (Bld) [#/Vol] 4.23 10*6/uL 4.2-5.4 [facility] Blood hemoglobin measurement (mass/volume)Ordered By: Dr. Ewing on 11-11-2022 Hemoglobin (Bld) [Mass/Vol] 13.5 g/dL 12.0-15.0 [facility] Blood lymphocytes/100 leukoc ytesOrdered By: Dr. Ewing on 11-11-2022 Lymphocytes/100 WBC (Bld) 31.3 % 19-41 [facility] Blood monocytes/100 leukocyt esOrdered By: Dr. Ewing on 11-11-2022 Monocytes/100 WBC (Bld) 7.4 % 0-10 [facility] Blood platelet mean volumeOr dered By: Dr. Ewing on 11-11-2022 Platelet mean volume (Bld) [Entitic vol] 8.8 fL 6.2-12.0 [facility] Determination of erythrocyte mean corpuscular volume (MCV)Ordered By: Dr. Ewing on 11-11-2022 MCV (RBC) [Entitic vol] 88.7 fL 81-99 [facility] Direct bilirubinOrdered By: Dr. Ewing on 11-11-2022 Bilirubin.direct [Mass/Vol] 0.47 mg/dL 0.00-0.30 [facility] Hematocrit Auto (Bld) [Volum e fraction]Ordered By: Dr. Ewing on 04-25-2023 Hematocrit (Bld) [Volume fraction] 37.5 % 37-47 [facility] Ketones Test strip Ql (U)Ord ered By: Dr. Ewing on 11-11-2022 Ketones Ql (U) 5 mg/dl Negative [facility] Laboratory - Chemistry and C hemistry - challengeOrdered By: Dr. Brody on 11-11-2022 Sodium (U) [Moles/Vol] 8 mmol/L Not Establ. [facility] Magnesium [Mass/Vol] 1.6 mg/dL 1.6-2.6 [facility] Laboratory - Chemistry and C hemistry - challengeOrdered By: Dr. Ewing on 11-11-2022 ALP [Catalytic activity/Vol] 45 U/L 45-117 [facility] ALT [Catalytic activity/Vol] 30 U/L 13-56 [facility] CO2 [Moles/Vol] 28.0 mmol/L 21.0-32.0 [facility] Globulin (S) [Mass/Vol] 3.5 g/dL 2.2-4.2 [facility] Urea nitrogen/Creatinine [Mass ratio] 16.2 mg/mg 10-20 [facility] Laboratory - Hematology and Cell countsOrdered By: Dr. Ewing on 11-11-2022 Erythrocyte distribution width (RBC) [Entitic vol] 39.2 fL 35.1-43.9 [facility] Erythrocyte distribution width (RBC) [Ratio] 12.0 % 11.6-14.6 [facility] Immature granulocytes/100 WBC (Bld) 0.400 % 0.0-0.9 [facility] Comment on above: IG% - Immature Granu locytes (promyelocytes, myelocytes and metamyelocytes) > 1% indicates that a LEFT SHIFT is Present. MCH (RBC) [Entitic mass] 31.9 pg 27.0-32.0 [facility] Nucleated RBC/100 WBC (Bld) [Ratio] 0 % 0-5 [facility] MCHC Auto (RBC) [Mass/Vol]Or dered By: Dr. Ewing on 11-11-2022 MCHC (RBC) [Mass/Vol] 36.0 g/dL 32-36 [facility] Mucus LM Ql (Urine sed)Order ed By: Dr. Ewing on 11-11-2022 Mucus Ql (Urine sed) 0 SEEN /hpf [facility] Nitrite Test strip Ql (U)Ord ered By: Dr. Ewing on 11-11-2022 Nitrite Ql (U) Negative Negative [facility] No Panel InformationOrdered By: Dr. Ewing on 11-11-2022 Estimated Creatinine Clearance Calc 27.90 ml/min [facility] Estimated GFR (MDRD) Amer 50 mL/min >60 [facility] Comment on above: GFR Calc Estimated GFR (MDRD) Non-Af Amer 41 mL/min >60 [facility] Comment on above: Non- GFR Calc Troponin I High Sensitivity 13 pg/mL 3.0-54.0 [facility] Comment on above: Please Note: New Denia t Units and Gender Specific Reference Ranges. For more information see Policy Stat Procedure [place] High Sensitivity Troponin (TNIH) and attachments. Platelets bldOrdered By: Dr. Ewing on 11-11-2022 Platelets (Bld) [#/Vol] 506 10*3/uL 150-450 [facility] Protein Test strip Ql (U)Ord ered By: Dr. Ewing on 11-11-2022 Protein Ql (U) Negative Negative [facility] Serum or plasma albumin karri urement (mass/volume)Ordered By: Dr. Ewing on 11-11-2022 Albumin [Mass/Vol] 3.9 g/dL 3.2-5.0 [facility] Serum or plasma calcium karri urement (mass/volume)Ordered By: Dr. Ewing on 11-11-2022 Calcium [Mass/Vol] 9.9 mg/dL 8.5-10.1 [facility] Serum or plasma creatinine m easurement (mass/volume)Ordered By: Dr. Ewing on 11-11-2022 Creatinine [Mass/Vol] 1.30 mg/dL 0.55-1.02 [facility] Comment on above: The validity of the calculated GFR & GFRAA in patients over 70 years has not been determined. Clinical correlation is essential. Serum or plasma urea nitroge n measurement (mass/volume)Ordered By: Dr. Ewing on 11-11-2022 Urea nitrogen [Mass/Vol] 21 mg/dL 7-18 [facility] Serum or plasma uric acid me asurement (mass/volume)Ordered By: Dr. Brody on 11-11-2022 Urate [Mass/Vol] 4.3 mg/dL 2.6-6.0 [facility] Comment on above: The drugs N-Acetylcy steine and Metamizole may falsely depress this assay. Squamous epithelial cells de tection in urine sediment by light microscopyOrdered By: Dr. Ewing on 11-11-2022 Epithelial cells.squamous LM Ql (Urine sed) 0 SEEN /hpf 5-10 [facility] Thin prep Papanicolaou smear with manual screeningOrdered By: Dr. Brody on 11-11-2022 Thin prep Papanicolaou smear with manual screening 277 mOsm/KG 280-301 [facility] Thin prep Papanicolaou smear with manual screeningOrdered By: Dr. Ewing on 11-11-2022 Thin prep Papanicolaou smear with manual screening 25 U/L 15-37 [facility] Thin prep Papanicolaou smear with manual screening 8 5-15 [facility] Urine blood detectionOrdered By: Dr. Ewing on 11-11-2022 RBC Ql (U) Negative Negative [facility] RBC Ql (U) 0 SEEN /hpf 0-5 [facility] Urine clarityOrdered By: Dr. Ewing on 11-11-2022 Clarity (U) Clear Clear [facility] Urine color determinationOrd ered By: Dr. Ewing on 11-11-2022 Color (U) Yellow Yellow [facility] Urine glucose detectionOrder ed By: Dr. Ewing on 11-11-2022 Glucose Ql (U) Normal mg/dl Normal [facility] Urine leukocyte esterase det ection by dipstickOrdered By: Dr. Ewing on 11-11-2022 Leukocyte esterase Test strip Ql (U) Negative Negative [facility] Urine osmolality measurement Ordered By: Dr. Brody on 11-11-2022 Osmolality (U) [Osmolality] 227 mOsm/KG >50 [facility] Comment on above: Normal Urine Referen ce Ranges Random: 50 - 1200 mOsm/kg H20 depending on fluid intake Random: >850 mOsm/kg after 12 hour fluid restriction 24 hour: ~300 - 900 mOsm/kg H2O Urine pHOrdered By: Dr. Atiya bender on 11-11-2022 pH (U) 6.0 [pH] 5.0 - 8.0 [facility] Urine sediment bacteria coun t by microscopy (number/high power field)Ordered By: Dr. Ewing on 11-11-2022 Bacteria LM.HPF (Urine sed) [#/Area] 0 /[HPF] None Seen [facility] Urine specific gravity measu rementOrdered By: Dr. Ewing on 11-11-2022 Specific gravity (U) [Rel density] 1.010 1.002-1.030 [facility] Urobilinogen Auto test strip Ql (U)Ordered By: Dr. Ewing on 11-11-2022 Urobilinogen Ql (U) Normal mg/dl Normal [facility] Vital Signs Date Time Vital Sign Value Performing Clinician Faci lity 11-04-2024 03:00-0400 Respiratory rate 16 /min Dr. Pete Payne MD Work Phone: [facility] 11-04-2024 00:21-0400 Body temperature 98.2 [degF] Dr. Pete Payne MD Work Phone: [facility] 11-04-2024 00:21-0400 Diastolic blood pressure 60 mm[Hg] Dr. Pete Payne MD Work Phone: [facility] 11-04-2024 00:21-0400 Heart rate 84 /min Dr. Pete Payne MD Work Phone: [facility] 11-04-2024 00:21-0400 SaO2% (BldA) [Mass fraction] 97 % Dr. Pete Payne MD Work Phone: [facility] 11-04-2024 00:21-0400 Systolic blood pressure 143 mm[Hg] Dr. Pete Payne MD Work Phone: [facility] 11-03-2024 21:08-0400 Body height 147.[address] Pete Payne MD Work Phone: [facility] 11-03-2024 21:08-0400 Body mass index (BMI) [Ratio] 29.4 kg/m2 Dr. Pete Payne MD Work Phone: [facility] 11-03-2024 21:08-0400 Body weight 63.[address] Pete Payne MD Work Phone: [facility] 07-25-2023 13:00-0500 Body temperature 97.7 [degF] Dr. Pete Payne Work Phone: [facility] 07-25-2023 13:00-0500 Diastolic blood pressure 74 mm[Hg] Dr. Pete Payne Work Phone: [facility] 07-25-2023 13:00-0500 Heart rate 86 /min Dr. Pete Payne Work Phone: [facility] 07-25-2023 13:00-0500 Respiratory rate 16 /min Dr. Pete Payne Work Phone: [facility] 07-25-2023 13:00-0500 SaO2% (BldA) [Mass fraction] 98 % Dr. Pete Payne Work Phone: [facility] 07-25-2023 13:00-0500 Systolic blood pressure 136 mm[Hg] Dr. Pete Payne Work Phone: [facility] 07-25-2023 08:00-0500 Body height 147.[address] Pete Payne Work Phone: [facility] 07-25-2023 08:00-0500 Body mass index (BMI) [Ratio] 29.2 kg/m2 Dr. Peet Payne Work Phone: [facility] 07-25-2023 08:00-0500 Body weight 63.[address] Pete Payne Work Phone: [facility] 01-20-2023 03:50-0400 Diastolic blood pressure 61 mm[Hg] Dr. Nancy Ewing Work Phone: 0(151)586-680251 [place] [address] 01-20-2023 03:50-0400 Heart rate 78 /min Dr. Nancy Ewing Work Phone: 9(363)042-281451 [place] [address] 01-20-2023 03:50-0400 Respiratory rate 18 /min Dr. Nancy Ewing Work Phone: 1(591)090-555217 [place] [address] 01-20-2023 03:50-0400 SaO2% (BldA) [Mass fraction] 97 % Dr. Nancy Ewing Work Phone: 3(996)820-160617 [place] [address] 01-20-2023 03:50-0400 Systolic blood pressure 146 mm[Hg] Dr. Nancy Ewing Work Phone: 7(550)320-316717 [place] [address] 01-20-2023 02:01-0400 Body height 147.[address] Nancy Ewing Work Phone: 6(588)074-715117 [place] [address] 01-20-2023 02:01-0400 Body mass index (BMI) [Ratio] 26.9 kg/m2 Dr. Nancy Ewing Work Phone: 0(171)113-435417 [place] [address] 01-20-2023 02:01-0400 Body temperature 97.5 [degF] Dr. Nancy Ewing Work Phone: 8(870)585-377617 [place] [address] 01-20-2023 02:01-0400 Body weight 58.[address] Nancy Ewing Work Phone: 6(481)093-687717 [place] [address] 11-29-2022 09:42-0400 Heart rate 92 /min Dr. Nancy Ewing Work Phone: 2(710)316-451017 [place] [address] 11-29-2022 09:42-0400 Respiratory rate 16 /min Dr. Nancy Ewing Work Phone: 6(964)454-859151 [place] [address] 11-29-2022 09:42-0400 SaO2% (BldA) [Mass fraction] 97 % Dr. Nancy Ewing Work Phone: 1(354)117-130951 [place] [address] 11-29-2022 09:41-0400 Body temperature 97.6 [degF] Dr. Nancy Ewing Work Phone: 8(895)747-595217 [place] [address] 11-29-2022 09:41-0400 Diastolic blood pressure 59 mm[Hg] Dr. Nancy Ewing Work Phone: 2(130)200-368017 [place] [address] 11-29-2022 09:41-0400 Systolic blood pressure 144 mm[Hg] Dr. Nancy Ewing Work Phone: 4(593)516-695617 [place] [address] 11-28-2022 13:27-0400 Body temperature 97.1 [degF] Dr. Nancy Ewing Work Phone: 7(677)548-752317 [place] [address] 11-28-2022 13:27-0400 Diastolic blood pressure 61 mm[Hg] Dr. Nancy Ewing Work Phone: 9(939)649-681117 [place] [address] 11-28-2022 13:27-0400 Heart rate 65 /min Dr. Nancy Ewing Work Phone: 9(400)207-476017 [place] [address] 11-28-2022 13:27-0400 Respiratory rate 16 /min Dr. Nancy Ewing Work Phone: 7(056)109-701917 [place] [address] 11-28-2022 13:27-0400 SaO2% (BldA) [Mass fraction] 95 % Dr. Nancy Ewing Work Phone: 1(264)371-410617 [place] [address] 11-28-2022 13:27-0400 Systolic blood pressure 133 mm[Hg] Dr. Nancy Ewing Work Phone: 5(555)812-815551 [place] [address] 11-26-2022 14:37-0400 Body height 147.[address] Nancy Ewing Work Phone: 3(724)380-058817 [place] [address] 11-26-2022 14:37-0400 Body weight 54.[address] Nancy Ewing Work Phone: 1(209)333-254617 [place] [address] 11-25-2022 12:48-0400 Body mass index (BMI) [Ratio] 25 kg/m2 Dr. Nancy Ewing Work Phone: 5(616)698-706717 [place] [address] 11-13-2022 14:35-0400 Body temperature 98 [degF] Dr. Nancy Ewing Work Phone: 5(061)324-420317 [place] [address] 11-13-2022 14:35-0400 Diastolic blood pressure 48 mm[Hg] Dr. Nancy Ewing Work Phone: 1(556)945-996317 [place] [address] 11-13-2022 14:35-0400 Heart rate 71 /min Dr. Nancy Ewing Work Phone: 2(735)445-604817 [place] [address] 11-13-2022 14:35-0400 Respiratory rate 18 /min Dr. Nancy Ewing Work Phone: 5(956)081-190617 [place] [address] 11-13-2022 14:35-0400 SaO2% (BldA) [Mass fraction] 100 % Dr. Nancy Ewing Work Phone: 1(631)639-661717 [place] [address] 11-13-2022 14:35-0400 Systolic blood pressure 123 mm[Hg] Dr. Nancy Ewing Work Phone: 2(458)554-776417 [place] [address] 11-12-2022 12:32-0400 Body height 147.[address] Nancy Ewing Work Phone: 8(038)625-567917 [place] [address] 11-12-2022 12:32-0400 Body weight 55.[address] Nancy Ewing Work Phone: 0(175)277-782917 [place] [address] 11-11-2022 22:57-0400 Body mass index (BMI) [Ratio] 25.5 kg/m2 Dr. Nancy Ewing Work Phone: 5(649)650-721017 [place] [address] 11-11-2022 21:44-0400 Body temperature 97.8 [degF] Dr. Nancy Ewing Work Phone: 3(863)140-922517 [place] [address] 11-11-2022 21:44-0400 Diastolic blood pressure 60 mm[Hg] Dr. Nancy Ewing Work Phone: 0(286)539-849717 [place] [address] 11-11-2022 21:44-0400 Heart rate 75 /min Dr. Nancy Ewing Work Phone: [facility] 11-11-2022 21:44-0400 Respiratory rate 17 /min Dr. Nancy Ewing Work Phone: [facility] 11-11-2022 21:44-0400 SaO2% (BldA) [Mass fraction] 100 % Dr. Nancy Ewing Work Phone: [facility] 11-11-2022 21:44-0400 Systolic blood pressure 134 mm[Hg] Dr. Nancy Ewing Work Phone: [facility] 11-11-2022 16:37-0400 Body height 147.[address] Nancy Ewing Work Phone: [facility] 11-11-2022 16:37-0400 Body mass index (BMI) [Ratio] 26.2 kg/m2 Dr. Nancy Ewing Work Phone: [facility] 11-11-2022 16:37-0400 Body weight 56.[address] Nancy Ewing Work Phone: [facility] Encounters Encounter Date Encounter Type Care Provider Facility Start: 01-13-2025 ambulatory Pete Hightower ty:[facility] Start: 01-13-2025 Registered Referred Pete Payne MD -[facility] Start: 01-03-2025 End: 01-03-[address] Pete Payne MD Work Phone: -[facility] Start: 01-03-2025 End: 01-03-2025 Patient encounter procedure Poppy Mccracken POST COMMANDER-C -[facility] Work Phone: Start: 12-26-2024 ambulatory Pete Issa cility:[facility] Start: 12-26-2024 Registered Referred Pete Payne MD -[facility] Start: 12-13-2024 End: 12-13-[address] Pete Payne MD Work Phone: [facility] Work Phone: Start: 12-13-2024 End: 12-13-2024 Departed Referred Pete Virk Start: 12-13-2024 Registered Referred Pete Virk Start: 12-13-2024 End: 12-13-2024 ambulatory Pete ROBERTS Facility:[facility] Start: 12-06-2024 End: 12-06-[address] Pete Payne MD Work Phone: [facility] Start: 12-06-2024 End: 12-06-[address] Pete Payne MD -[facility] Work Phone: Start: 11-22-2024 End: 11-22-[address] Pete Payne MD Work Phone: [facility] Work Phone: Start: 11-22-2024 End: 11-22-2024 Departed Referred Pete Virk Start: 11-22-2024 Registered Referred Pete Virk Start: 11-22-2024 End: 11-22-2024 ambulatory Pete ROBERTS Facility:[facility] Start: 11-14-2024 End: 11-14-[address] Pete Payne MD Work Phone: [facility] Work Phone: Start: 11-14-2024 End: 11-14-2024 Departed Referred Pete Virk Start: 11-14-2024 End: 11-14-2024 ambulatory Celestegeena ROBERTS Facility:[facility] Start: 11-03-2024 End: 11-04-2024 Emergency department patient visit Dr. Pete Payne MD Work Phone: -Emergency Department Work Phone: Start: 10-21-2024 End: 10-21-2024 ambulatory Poppyjuice Cadenanickie POST COMMANDER Facility:[facility] Start: 10-21-2024 End: 10-21-2024 Patient encounter procedure Poppy Mccracken POST COMMANDER-C -[facility] Work Phone: Start: 10-17-2024 End: 10-17-[address] Pete Payne MD Work Phone: [facility] Work Phone: Start: 10-17-2024 End: 10-17-2024 Departed Referred Pete Virk Start: 10-17-2024 Registered Referred Pete Virk Start: 10-17-2024 End: 10-17-2024 ambulatory Pete ROBERTS Facility:[facility] Start: 10-10-2024 End: 10-10-[address] Pete Payne MD Work Phone: [facility] Work Phone: Start: 10-10-2024 End: 10-10-2024 Departed Referred Pete Virk Start: 10-10-2024 Registered Referred Pete Virk Start: 10-10-2024 End: 10-10-2024 ambulatory Pete ROBERTS Facility:[facility] Start: 10-06-2024 End: 10-06-[address] Pete Payne MD Work Phone: [facility] Work Phone: Start: 10-06-2024 End: 10-06-2024 Departed Referred Pete Virk Start: 10-06-2024 Registered Referred Pete Virk Start: 10-06-2024 End: 10-06-2024 ambulatory Pete ROBERTS Facility:[facility] Start: 10-03-2024 End: 10-03-[address] Pete Payne MD Work Phone: [facility] Work Phone: Start: 10-03-2024 End: 10-03-2024 Departed Referred Pete Virk Start: 10-03-2024 End: 10-03-2024 ambulatory Efewanne Beltrane OLS Facility:[facility] Start: 09-20-2024 End: 09-20-2024 ambulatory Efewongbe Oleriteshe Facility:[facility] Start: 09-20-2024 End: 09-20-[address] Pete Payne MD -[facility] Work Phone: Start: 09-01-2024 End: 09-01-2024 ambulatory Efewongbe Kentrellriteshe Facility:[facility] Start: 09-01-2024 End: 09-01-2024 Patient encounter procedure Mateo CRANDALL -[facility] Work Phone: Start: 08-23-2024 ambulatory Efewkeishabe Devine OLS Fa cility:[facility] Start: 08-23-2024 Registered Referred Pete Virk Start: 07-11-2024 End: 07-11-2024 Departed Referred Pete Virk Start: 07-11-2024 End: 07-11-2024 ambulatory Efewongbe Devine OLS Facility:[facility] Start: 06-21-2024 End: 06-21-2024 ambulatory Poppy Mccracken NP Facility:[facility] Start: 06-21-2024 End: 06-21-2024 Patient encounter procedure Poppy Mccracken POST COMMANDER- -[facility] Work Phone: Start: 05-31-2024 End: 05-31-2024 ambulatory Efewongbe Oleghe Facility:[facility] Start: 05-30-2024 End: 05-30-2024 ambulatory Efewongbe Oleghe OLS Facility:[facility] Start: 05-24-2024 End: 05-24-2024 ambulatory Efalexisongbe Oleriteshe Facility:[facility] Start: 05-03-2024 End: 05-03-2024 [facility] Start: 04-18-2024 End: 04-18-2024 ambulatory Efewongbe Devine Facility:[facility] Start: 03-22-2024 End: 03-22-2024 ambulatory Efewongbe Oleghe Facility:[facility] Start: 03-07-2024 End: 03-07-2024 ambulatory Efewongbe Oleghe Facility:[facility] Start: 03-03-2024 End: 03-03-2024 ambulatory Efewongbe Oleghe Facility:[facility] Start: 02-25-2024 End: 02-25-2024 ambulatory Efewongbe Oleghe Facility:[facility] Start: 02-23-2024 End: 02-23-2024 ambulatory Efewolympiabe Oleghe Facility:[facility] Start: 02-17-2024 End: 02-17-2024 ambulatory Efalexisongsudasrhan Beltrane Facility:[facility] Start: 08-25-2023 End: 08-25-[address] Pete Payne Work Phone: [facility] Work Phone: Start: 08-25-2023 End: 08-25-[address] Pete Payne Work Phone: [facility] Start: 07-25-2023 End: 07-25-2023 Emergency department patient visit Dr. Pete Payne Work Phone: [facility]Emergency [facility] Work Phone: Start: 07-02-2023 End: 07-02-[address] Pete Payne Work Phone: [facility] Work Phone: Start: 06-02-2023 End: 06-02-[address] Pete Payne Work Phone: [facility] Work Phone: Start: 05-04-2023 End: 05-04-[address] Pete Payne Work Phone: [facility] Work Phone: Start: 03-31-2023 End: 03-31-[address] Pete Payne Work Phone: [facility] Work Phone: Start: 03-16-2023 End: 03-16-[address] Pete Payne Work Phone: [facility] Work Phone: Start: 03-16-2023 End: 03-16-[address] Pete Payne Work Phone: [facility] Start: 03-16-[address] Madison Payne Work Phone: [facility] Start: 03-14-2023 End: 03-14-[address] Pete Payne Work Phone: [facility] Work Phone: Start: 03-12-2023 End: 03-12-[address] Pete Payne Work Phone: [facility] Work Phone: Start: 03-12-2023 End: 03-12-[address] Pete Payne Work Phone: [facility] Start: 01-27-2023 End: 01-27-[address] Pete Payne Work Phone: [facility] Work Phone: Start: 01-20-2023 End: 01-20-2023 Emergency department patient visit Dr. Nancy Ewing Work Phone: [facility] Work Phone: Start: 12-23-2022 End: 12-23-[address] Pete Payne Work Phone: [facility] Work Phone: Start: 12-02-2022 End: 12-02-[address] Nancy Ewing Work Phone: [facility] Work Phone: Start: 12-01-2022 End: 12-01-[address] Nancy Ewing Work Phone: [facility] Work Phone: Start: 12-01-2022 End: 12-01-[address] Nancy Ewing Work Phone: [facility] Start: 11-24-2022 End: 11-24-[address] Nancy Ewing Work Phone: [facility] Work Phone: Start: 11-24-2022 End: 11-24-[address] Nancy Ewing Work Phone: [facility] Start: 11-13-2022 End: 11-29-2022 Evaluation and management of inpatient Dr. Nancy Ewing Work Phone: [facility]Transitional [facility] Start: 11-13-2022 Non-patient / Non-visit Dr. Christophe Ewing Work Phone: [facility] Start: 11-12-2022 Non-patient / Non-visit Dr. Christophe Ewing Work Phone: [facility] Start: 11-11-2022 Non-patient / Non-visit Dr. Christophe Ewing Work Phone: [facility] Start: 11-11-2022 End: 11-13-2022 Evaluation and management of inpatient Dr. Nancy Ewing Work Phone: [facility]-Medical Surgical 3 Procedures Date Procedure Procedure [...] 01-20-2023 CT of head without contrast Dr. Nacny Ewing Work Phone: Start: 01-20-2023 Pelvis X-ray [...] Date Care Activity Detail Author Start: 11-04-2024 [facility] Start: 11-03-2024 Simple repair f/e/e/ n/l/m 2.6cm-5.0 cm RPR F/E/E/N/L/M 2.6-5.0 CM [facility] Start: 07-25-2023 [facility] Start: 01-02-2023 Blood chemistry [facility] Start: 12-26-2022 Blood chemistry [facility] Start: 12-19-2022 Blood chemistry [facility] Start: 12-12-2022 Blood chemistry [facility] Start: 12-05-2022 Blood chemistry [facility] Start: 11-29-2022 Patient discharge [facility] Start: 11-28-2022 Development of care plan [facility] Start: 11-20-2022 [facility] Start: 11-20-2022 [facility] Start: 11-19-2022 Palliative care [facility] Start: 11-19-2022 [facility] Start: 11-18-2022 [facility] Start: 11-17-2022 [facility] Start: 11-16-2022 [facility] Start: 11-15-2022 [facility] Start: 11-14-2022 Developing a treatment plan [facility] Start: 11-14-2022 Speech therapy management [facility] Start: 11-14-2022 Development of care plan [facility] Start: 11-14-2022 End: 11-14-2022 [facility] Start: 11-13-2022 Patient referral to [facility] Start: 11-13-2022 Speech therapy assessment [facility] Start: 11-13-2022 Following clinical p athway protocol [facility] Start: 11-13-2022 Admission procedure [facility] Start: 11-13-2022 Measuring intake and output [facility] Start: 11-13-2022 Patient referral to dietitian [facility] Start: 11-13-2022 Referral to occupati onal therapist [facility] Start: 11-13-2022 Referral to service [facility] Start: 11-13-2022 Verification routine [facility] Start: 11-13-2022 Vital signs measurements [facility] Start: 11-13-2022 [facility] Start: 11-13-2022 Patient discharge [facility] Start: 11-12-2022 Vitamin D, 25-hydrox y measurement [facility] Start: 11-12-2022 [facility] Start: 11-12-2022 Patient referral to dietitian [facility] Start: 11-11-2022 Blood chemistry [facility] Start: 11-11-2022 Following clinical p athway protocol [facility] Start: 11-11-2022 Assessment of risk o f venous thromboembolism [facility] Start: 11-11-2022 Insertion of cathete r into peripheral vein [facility] Start: 11-11-2022 Oxygen therapy [facility] Start: 11-11-2022 Providing care accor ding to standard [facility] Start: 11-11-2022 Provision of activit y privileges [facility] Start: 11-11-2022 Referral to occupati onal therapist [facility] Start: 11-11-2022 Referral to service [facility] Start: 11-11-2022 [facility] Start: 11-11-2022 Verification routine [facility] Start: 11-11-2022 Admission procedure [facility] Start: 11-11-2022 Patient referral to dietitian [facility] Alanine aminotransfe rase [Enzymatic activity/volume] in Serum or Plasma [facility] Albumin [Mass/volume ] in Serum or Plasma [facility] Alkaline phosphatase [Enzymatic activity/volume] in Serum or Plasma [facility] Anion gap measurement [facility] Anion gap measurement [facility] Anion gap measurement [facility] Anion gap measurement [facility] Anion gap measurement [facility] Anion gap measurement [facility] Aspartate aminotrans ferase [Enzymatic activity/volume] in Serum or Plasma [facility] Bilirubin, total measurement [facility] Bilirubin.direct [Mass/volume] in Serum or Plasma [facility] BUN/Creatinine ratio [facility] BUN/Creatinine ratio [facility] BUN/Creatinine ratio [facility] BUN/Creatinine ratio [facility] BUN/Creatinine ratio [facility] BUN/Creatinine ratio [facility] Calcium [Mass/volume ] in Serum or Plasma [facility] Calcium [Mass/volume ] in Serum or Plasma [facility] Calcium [Mass/volume ] in Serum or Plasma [facility] Calcium [Mass/volume ] in Serum or Plasma [facility] Calcium [Mass/volume ] in Serum or Plasma [facility] Calcium [Mass/volume ] in Serum or Plasma [facility] Carbon dioxide, tota l [Moles/volume] in Serum or Plasma [facility] Carbon dioxide, tota l [Moles/volume] in Serum or Plasma [facility] Carbon dioxide, tota l [Moles/volume] in Serum or Plasma [facility] Carbon dioxide, tota l [Moles/volume] in Serum or Plasma [facility] Carbon dioxide, tota l [Moles/volume] in Serum or Plasma [facility] Carbon dioxide, tota l [Moles/volume] in Serum or Plasma [facility] Chloride [Moles/volu me] in Serum or Plasma [facility] Chloride [Moles/volu me] in Serum or Plasma [facility] Chloride [Moles/volu me] in Serum or Plasma [facility] Chloride [Moles/volu me] in Serum or Plasma [facility] Chloride [Moles/volu me] in Serum or Plasma [facility] Chloride [Moles/volu me] in Serum or Plasma [facility] Cortisol [Mass/volum e] in Serum or Plasma [facility] Creatinine [Moles/vo lume] in Serum or Plasma [facility] Creatinine [Moles/vo lume] in Serum or Plasma [facility] Creatinine [Moles/vo lume] in Serum or Plasma [facility] Creatinine [Moles/vo lume] in Serum or Plasma [facility] Creatinine [Moles/vo lume] in Serum or Plasma [facility] Creatinine [Moles/vo lume] in Serum or Plasma [facility] Glucose [Mass/volume ] in Serum or Plasma [facility] Glucose [Mass/volume ] in Serum or Plasma [facility] Glucose [Mass/volume ] in Serum or Plasma [facility] Glucose [Mass/volume ] in Serum or Plasma [facility] Glucose [Mass/volume ] in Serum or Plasma [facility] Glucose [Mass/volume ] in Serum or Plasma [facility] Hematocrit [Volume F raction] of Blood [facility] Hematocrit [Volume F raction] of Blood [facility] Hematocrit [Volume F raction] of Blood [facility] Hematocrit [Volume F raction] of Blood [facility] Hematocrit [Volume F raction] of Blood [facility] Hematocrit [Volume F raction] of Blood [facility] Hemoglobin [Mass/vol ume] in Blood [facility] Hemoglobin [Mass/vol ume] in Blood [facility] Hemoglobin [Mass/vol ume] in Blood [facility] Hemoglobin [Mass/vol ume] in Blood [facility] Hemoglobin [Mass/vol ume] in Blood [facility] Hemoglobin [Mass/vol ume] in Blood [facility] Leukocytes [#/volume ] in Blood [facility] Leukocytes [#/volume ] in Blood [facility] Leukocytes [#/volume ] in Blood [facility] Leukocytes [#/volume ] in Blood [facility] Leukocytes [#/volume ] in Blood [facility] Leukocytes [#/volume ] in Blood [facility] Magnesium [Mass/volu me] in Serum or Plasma [facility] Mean corpuscular hem oglobin concentration determination [facility] Mean corpuscular hem oglobin concentration determination [facility] Mean corpuscular hem oglobin concentration determination [facility] Mean corpuscular hem oglobin concentration determination [facility] Mean corpuscular hem oglobin concentration determination [facility] Mean corpuscular hem oglobin concentration determination [facility] Mean corpuscular hem oglobin determination [facility] Mean corpuscular hem oglobin determination [facility] Mean corpuscular hem oglobin determination [facility] Mean corpuscular hem oglobin determination [facility] Mean corpuscular hem oglobin determination [facility] Mean corpuscular hem oglobin determination [facility] Measurement of renal function [facility] Measurement of renal function [facility] Measurement of renal function [facility] Measurement of renal function [facility] Measurement of renal function [facility] Measurement of renal function [facility] Neutrophil count [facility] Neut[facility] count [facility] Neutrophil count [facility] Neutrophil percent differential count [facility] Neutrophil percent differential count [facility] Neutrophil percent differential count [facility] Neutrophil percent differential count [facility] Neutrophil percent differential count [facility] Neutrophil percent differential count [facility] Patient Education [facility] Work Phone: Patient referral [facility] Work Phone: Platelets [#/volume] in Blood [facility] Platelets [#/volume] in Blood [facility] Platelets [#/volume] in Blood [facility] Platelets [#/volume] in Blood [facility] Platelets [#/volume] in Blood [facility] Platelets [#/volume] in Blood [facility] Potassium [Moles/vol ume] in Serum or Plasma [facility] Potassium [Moles/vol ume] in Serum or Plasma [facility] Potassium [Moles/vol ume] in Serum or Plasma [facility] Potassium [Moles/vol ume] in Serum or Plasma [facility] Potassium [Moles/vol ume] in Serum or Plasma [facility] Potassium [Moles/vol ume] in Serum or Plasma [facility] Red blood cell count [facility] Red blood cell count [facility] Red blood cell count [facility] Red blood cell count [facility] Red blood cell count [facility] Red blood cell count [facility] Red cell distributio n width determination [facility] Red cell distributio n width determination [facility] Red cell distributio n width determination [facility] Red cell distributio n width determination [facility] Red cell distributio n width determination [facility] Red cell distributio n width determination [facility] Sodium [Moles/volume ] in Serum or Plasma [facility] Sodium [Moles/volume ] in Serum or Plasma [facility] Sodium [Moles/volume ] in Serum or Plasma [facility] Sodium [Moles/volume ] in Serum or Plasma [facility] Sodium [Moles/volume ] in Serum or Plasma [facility] Sodium [Moles/volume ] in Serum or Plasma [facility] Total protein measurement [facility] Urate [Mass/volume] in Serum or Plasma [facility] Urea nitrogen [Mass/ volume] in Serum or Plasma [facility] Urea nitrogen [Mass/ volume] in Serum or Plasma [facility] Urea nitrogen [Mass/ volume] in Serum or Plasma [facility] Urea nitrogen [Mass/ volume] in Serum or Plasma [facility] Urea nitrogen [Mass/ volume] in Serum or Plasma [facility] Urea nitrogen [Mass/ volume] in Serum or Plasma [facility] [place]izations Immunization Date Immunization Notes Care Provider Fa [facility] 07-03-2022 Covid Pfizer Bivalen t Booster Dr. Nancy Ewing Work Phone: [facility] 06-06-2021 Covid (Pfizer) Dr. Nancy Ewing Work Phone: [facility] 08-16-2020 Covid (Pfizer) Dr. Nancy Ewing Work Phone: [facility] 07-26-2020 Covid (Pfizer) Dr. Nancy Ewing Work Phone: [facility] 07-20-2012 pneumococcal conjuga te vaccine, [address] Nancy Ewing Work Phone: [facility] 07-20-2001 pneumococcal vaccine , unspecified formulation Dr. Nancy Ewing Work Phone: [facility] Payers Date Payer Category Payer Self-pay [id number] 2024 Medicaid [id number] 2015 Private Health Insurance [id number] 2001 Medicare MEDICARE PART A B [id number] Unknown AARP MCR ADV [id number] Unknown [id number] 2.16.840.1.462669.3.579.2.462 Unknown [id number] 2.16.840.1.191020.3.579.2.462 Unknown [id number] 2.16.840.1.992512.3.579.2.462 Unknown [id number] 2.16.840.1.779723.3.579.2.462 Unknown [id number] 2.16.840.1.939506.3.579.2.462 Unknown [id number] 2..840.1.273733.3.579.2.462 Unknown [id number] 2..840.1.437174.3.579.2.462 Unknown [id number] 2..840.1.520914.3.579.2.462 Unknown [id number] 2.840.1.424132.3.579.2.462 Unknown [id number] 2.840.1.435514.3.579.2.462 Unknown [id number] 2..840.1.705356.3.579.2.462 Unknown [id number] 2..840.1.281412.3.579.2.462 Unknown [id number] 2..840.1.251590.3.579.2.462 Unknown [id number] 2.840.1.132090.3.579.2.462 Unknown [id number] 2..840.1.648125.3.579.2.462 Unknown [id number] 2.16.840.1.450892.3.579.2.462 Unknown [id number] 2.16.840.1.012963.3.579.2.462 Unknown [id number] 2.16.840.1.568223.3.579.2.462 Unknown [id number] 2.16.840.1.303302.3.579.2.462 Unknown [id number] 2.16.840.1.558164.3.579.2.462 Unknown [id number] 2.16.840.1.784231.3.579.2.462 Unknown [id number] 2.16.840.1.708943.3.579.2.462 Unknown [id number] 2.16.840.1.802256.3.579.2.462 Unknown [id number] 2.16.840.1.178744.3.579.2.462 Unknown [id number] 2.16.840.1.412316.3.579.2.462 Unknown [id number] 2.16.840.1.942393.3.579.2.462 Unknown [id number] 2.16.840.1.811715.3.579.2.462 Unknown [id number] 2.16.840.1.838967.3.579.2.462 Unknown [id number] 2.16.840.1.934097.3.579.2.462 Social History Date Type Detail Facility Start: 11-11-2022 End: 07-25-2023 Tobacco smoking status NHIS Unknown if ever smoked [facility] Start: 11-11-2022 Rare [facility] Start: 11-11-2022 None [facility] Start: 11-11-2022 Homeless [facility] Start: 11-11-2022 Non-smoker [facility] Start: 1935 Sex Assigned At Female [facility] Start: 07-25-2023 End: 11-03-2024 Tobacco smoking status NHIS Never smoked tobacco (finding) [facility] Start: 10-19-2024 End: 11-08-2024 Sex Female (finding) [facility] Goals Date Patient Goal Desired Activity /State Functional Status Date Assessment Result Facility 11-29-2022 Functional status Ambulates [facility] Work Phone: 11-28-2022 Functional status Ambulates [facility] Work Phone: 11-13-2022 Functional status 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 [facility] Work Phone: Mental Status Date Assessment Result Facility 07-25-2023 Cognitive function Voice/Name [facility] Work Phone: 11-29-2022 Cognitive function Voice/Name [facility] Work Phone: 11-27-2022 Cognitive function Voice/Name [facility] Work Phone: 11-26-2022 Cognitive function Appropriate;Cooperativ e [facility] Work Phone: 11-13-2022 Cognitive function Voice/Name [facility] Work Phone: Clinical Notes 11-12-2022 to 11-04-2024 Note Date & Type Note Facility 11-04-2024 Discharge summary Note Date/Time November 04, 2024 12:36am [facility] Medical Records Department [address] [place] [address] Emergency Department Summary 11/03/24 MR#: [id number] Acct: [id number] Name: MAXIME AMARAL Rep #:[id number] : 1935 89 From: Alirio Patel PCP: Dr. Pete Payne MD Status:R EG ER Location: ED HPI HPI - Fall History of Present Illness Chief Complaint: Fall Informant: patient and family Narrative Narrative: Patient brought in by EMS from [facility] witnessed fall head injury. Patient history [...] paperwork. She has baseline per son. [facility] Medical History Dry eye syndrome of [...] clinician: N/A This note was generated with Efield dictation software. It may contain incorrectwords, spelling, and punctuation that were not noted in checking the note beforesigning. Radiography Diagnostic Testing: Clinical Impression(s) from Imaging Studies Shoulder X-Ray 11/03/24 21:48 IMPRESSION: NO ACUTE FRACTURE OR DISLOCATION. [facility] 11/03/24 22:10 IMPRESSION: CHRONIC CHANGES. NO ACUTE FINDINGS. [facility] Cervical Spine CT 11/03/24 22:10 IMPRESSION: NO ACUTE CERVICAL FRACTURE. DEGENERATIVE CHANGES. No acute fracture or subluxation. [facility] Facial/Sinus 11/03/24 22:10 IMPRESSION: Small soft tissue laceration along the right supraorbital region. No acute fracture. Reading Location: [facility] Discharge Plan Triage Chief Complaint: Fall Other [...] in 5 to 7 days. Print Language: Citizen Of [place] Disposition Disposition: Home, Self Care What to do if you have Problems For any increased pain, shortness of breath, bleeding, nausea or vomiting, chestpain, or any unexpected problems, contact your Primary Care Provider. Call [employer] [facility] ([phone]) or report to the closest Emergency Room. Call 911 if necessary. 11/04/24 0036 <Electronically signed by Alirio Patel> Cosigner Signature (if applicable): CC: Dr. Pete Payne MD ~ Signed [facility] Work Phone: 1(955) 266-459504-18-2025 Discharge summary [facility] Medical Records Department [address] [place] [address] Emergency Department Summary 11/03/24 MR#: [id number] Acct: [id number] Name: MAXIME AMARAL Rep #:[id number] : 1935 89 From: Alirio Patel PCP: Dr. Pete Payne MD Status:R EG ER Location: ED HPI HPI - Fall History of Present Illness Chief Complaint: Fall Informant: patient and family Narrative Narrative: Patient brought in by EMS from [facility] witnessed fall head injury. Patient history [...] paperwork. She has baseline per son. [facility] Medical History Dry eye syndrome of [...] clinician: N/A This note was generated with Pivtoation software. It may contain incorrectwords, spelling, and punctuation that were not noted in checking the note beforesigning. Radiography Diagnostic Testing: Clinical Impression(s) from Imaging Studies Shoulder X-Ray 11/03/24 21:48 IMPRESSION: NO ACUTE FRACTURE OR DISLOCATION. [facility] 11/03/24 22:10 IMPRESSION: CHRONIC CHANGES. NO ACUTE FINDINGS. Reading [facility] Cervical Spine CT 11/03/24 22:10 IMPRESSION: NO ACUTE CERVICAL FRACTURE. DEGENERATIVE CHANGES. No acute fracture or subluxation. Reading Location[facility] Facial/Sinus 11/03/24 22:10 IMPRESSION: Small soft tissue laceration along the right supraorbital region. No acute fracture. Reading Location[facility] Discharge Plan Triage Chief Complaint: Fall Other [...] in 5 to 7 days. Print Language: Citizen [place] Disposition Disposition: Home, Self Care What to do if you have Problems For any increased pain, shortness of breath, bleeding, nausea or vomiting, chestpain, or any unexpected problems, contact your Primary Care Provider. Call [facility] ([phone]) or report tothe closest Emergency Room. Call 911 if necessary. 11/04/24 0036 Cosigner Signature (if applicable): CC: Dr. Pete Payne MD ~ Signed [facility]04-17-2025 Radiology Diagnostic study note [facility] Imaging Services [address] [place], [place] [id number] Spine Cervical without Contras MR#: [id number] Acct: [id number] Name: JEANETTEJOSEMAXIME Ellie Rep #: [id number] : 1935 F 89 From: Steve cisneros [employer] PCP: Dr. Pete Payne MD Status: R EG ER Study:Spine Cervical without Contras Date of Exam: 11/03/24 Exam# [id number] Ordering Dr: Alirio Edward DO PROCEDURE: SPINE [...] acute fracture or subluxation. Reading Location: [facility] CC: Dr. Pete Payne MD; Dr. Alirio Edward DO ~ Melter Caster: Signed [facility]04-17-2025 Radiology Diagnostic study note [facility] Imaging Services [address] [place], [place] [id number] Sinus/Facial Bone MR#: [id number] Acct: [id number] Name: MAXIME AMARAL Rep #: [id number] : 1935 F 89 From: Steve Sotelo DO PCP: Dr. Pete Payne MD Status: [facility] Study:Sinus/Facial Bone Date of Exam: Exam# [id number] Ordering Dr: Alirio Edward DO PROCEDURE: SINUS/FACIAL [...] supraorbital region. No acute fracture. [facility] CC: Dr. Pete Payne MD; Dr. Alirio Edward DO ~ Melter Caster: Signed [facility]04-17-2025 Radiology Diagnostic study note [facility] Imaging Services [address] [place], [place] [address] Brain/Head without Contrast MR#: [id number] Acct: [id number] Name: MAXIME AMARAL Rep #: [id number] : 1935 F 89 From: Steve Sotelo DO PCP: Dr. Pete Payne MD Status: R ER Study:Brain/Head without Contrast Date of Exa m: 11/03/24 Exam# [id number] Ordering Dr: Alirio Edward DO PROCEDURE: BRAIN/HEAD [...] CHRONIC CHANGES. NO ACUTE FINDINGS. [facility] CC: Dr. Pete Payne MD; Dr. Alirio Edward DO ~ Melter Caster: Signed [facility]04-17-2025 Radiology Diagnostic study note [facility] Imaging Services [address] [place], [place] [id number] (412) Shoulder min 2 Views MR#: [id number] Acct: [id number] Name: MAXIME AMARAL Rep #: [id number] : 1935 F 89 From: Steve Sotelo DO PCP: Dr. Pete Payne MD Status: R EG ER Study:Shoulder min 2 Views Date of Exam: 11/03/24 Exam# [id number] Ordering Dr: Alirio Edward DO PROCEDURE: SHOULDER [...] Payne MD; Dr. Alirio Edward DO ~ Melter Caster: Signed [facility]01-06-2024 Discharge summary Author [facility] July 25, 2023 8:48am Note Date/Time July 25, 2023 8: 48am [facility] Medical Records Department [address] [place] [address] Emergency Department Summary 07/25/23 MR#: [id number] Acct: [id number] Name: MAXIME AMARAL Rep #:[id number] : 1935 87 From: Jos Rush DO PCP: Dr. Pete Payne MD Status:R EG ER Location: ED HPI History of Present Illness Chief Complaint: Fall Informant: patient and SNF Narrative Narrative: Patient is a 87-year-old female with history of hypertension hyperlipidemia hypothyroidism type 2 diabetes and debility as well as Alzheimer's disease. Sheis typically A&O x 1. custodial states that she was found on her [...] this time but otherwise denies any symptoms [facility] Medical History Alzheimer's disease, unspecified CKD [...] is otherwise [facility] the [facility] Radiography Diagnostic Testing: Clinical Impression(s) from Imaging [...] Signed: Gabrielle Gallegos MD at 6:40 EST , Hip/Pelvis X-Ray 07/25/23 05:47 IMPRESSION: No acute pelvic or left hip fracture demonstrated. Electronically Signed: Gabrielle Gallegos MD at 6:45 EST , Lower Extremity CT 07/25/23 06:44 IMPRESSION: 1. Small amount of presumed hemarthrosis or other complex mildly dense fluid in the suprapatellar bursa. No lipohemarthrosis or convincing acute fracture. 2. Irregular posterior-medial tibial plateau corner is not typical of acute fracture. Demineralization and degenerative changes. Electronically Signed: Gabrielle Gallegos MD at 8:18 EST , Left hip x-ray with 1 view [...] your Primary Care Provider. Call [facility] ([phone]) or report to the closest Emergency Room. Call 911 if necessary. 07/25/23 0848 <Electronically signed by Jos Rush DO> Cosigner Signature (if applicable): CC: Dr. Pete Payne MD ~ Signed [facility] Work Phone: [phone] [id number] Discharge summary Author [facility] January 20, 2023 4:32am Note Date/Time January 20, 2023 3:43a m [facility] Medical Records Department [address] [place] [address] Emergency Department Summary 01/20/23 MR#: [id number] Acct: [id number] Name: MAXIME AMARAL Rep #:[id number] : 1935 87 From: Jos Rush DO PCP: Dr. Pete Payne MD Status:R EG ER Location: ED HPI History of Present Illness Chief Complaint: Fall Informant: patient and EMS Limited: dementia Narrative Narrative: Patient is a 87-year-old female with past medical history of dementia who stays in a [facility] in their dementia unit. Nursing reports that patient was reportedly wandering this evening and had a fall. They found the patient awake and alert but with trauma to her head/face. They deny any blood thinners but states secondary to the fall and patient complaining of pain in her knees and shoulders she was sent in for evaluation [facility] Medical History Alzheimer's disease, unspecified Depression, [...] Signed: Netta Delarosa MD at 3:16 EDT , Cervical Spine CT 01/20/23 02:21 IMPRESSION: Multilevel degenerative changes, as described above. 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 Electronically Signed: Netta Delarosa MD at 3:35 EDT , Pelvis X-Ray 01/20/23 02:21 IMPRESSION: Degenerative arthrosis. No evidence of displaced pelvic or hip fracture. Electronically Signed: Netta Delarosa MD at 3:32 EDT , Shoulder X-Ray 01/20/23 02:21 IMPRESSION: Severe [...] your Primary Care Provider. Call [facility] ([phone]) or report to the closest Emergency Room. Call 911 if necessary. 01/20/23 0432 <Electronically signed by Jos Rush DO> Cosigner Signature (if applicable): CC: Dr. Pete Payne MD ~ Signed [facility] Work Phone: [phone]) 334-357005-10-[address] Crooks [facility] November 26, 2022 9:10pm Note Date/Time November 26, 2022 9:10p m [facility] Medical Records Department [address] [place] [address] [facility] MR#: [id number] Acct: [id number] Name: MAXIME AMARAL Rep #:[id number] : 1935 87 From: Sylvester Crooks MD PCP: ALANNAH BENITO Status:ADM IN Certification of patient admission REQUIRED AT TIME OF ADMISSION. I CERTIFY THAT POST-HOSPITAL F SERVICES ARE REQUIRED TO BE GIVEN ON AN IN-PATIENT BASIS BECAUSE OF THE ABOVE NAMED PATIENT'S NEED FOR GROUP HOME CARE ON A CONTINUING BASIS FOR THE CONDITION(S) FOR WHICH HE/SHE WAS RECEIVING IN-PATIENT HOSPITAL SERVICES PRIOR TO HIS/HER TRANSFER TO THE [facility]. 11/26/222109<Electronically signed by Sylvester Crooks MD> [...] for rehabilitation, strengthening, prior to discharge to [facility]. * Debility - PT/OT. * [...] Dao ; Tanisha Henriquez ; Britany White POST COMMANDER Instructions Additional Instructions / Restrictions: Discharge to [facility] 11/29/2022, intermediate. Discharge Orders/Prescriptions Prescriptions: [...] Crooks MD> Cosigner Signature (if applicable): CC: POST COMMANDER-Pérez Tafoya; POST COMMANDER-C Tanisha Henriquez; POST COMMANDER-Pérez White; Dr. Steven Dean DO; Dr. Fany Dao MD; ALANNAH BENITO ~ [facility] Work Phone: [phone]) 874-149405-10-[address] Crooks [facility] November 26, 2022 9:09pm Note Date/Time November 26, 2022 9:05p [facility] Medical Records Department [address] [place] [address] Discharge Summary 11/26/222103 MR#: [id number] Acct: [id number] Name: MAXIME AMARAL Rep #:[id number] : 1935 87 From: Sylvester Crooks MD PCP: ALANNAH BENITO Status:ADM IN Location: [place] [address] Providers Date of Admission: 11/13/22 Primary Care [...] for rehabilitation, strengthening, prior to discharge to [facility]. * Debility - PT/OT. * Cognition [...] - Bupropion XL 150mg daily, stable chronic keno terminal operator use, GDR not recommended. * Alzheimer Disease [...] for rehabilitation, strengthening, prior to discharge to [facility]. Discharge to [facility] 11/29/2022, intermediate. Physical Exam Const [...] Document 11/26/22 14:47 HUSEYIN (Rec: 11/26/22 14:47 [facility] [id number]) Nutrition Malnutrition Evidence of Malnutrition Exists Yes [...] and Uncontrolled pain Additional Instructions: Discharge to [facility] 11/29/2022, intermediate. Meaningful Use Info Meaningful Use Diagnoses (Choose all that apply): None applicable Discharge Plan Admission Admit Date/Time: 11/13/22 16:43 Primary Reason for Your Visit: Debility. Attending Provider: Sylvester Crooks [facility] Primary Care Provider: ALANNAH BENITO Consulting Providers: Magnolia Tafoya ; Steven Dean ; Fany Dao ; Tanisha Henriquez ; Britany White POST COMMANDER Instructions Additional Instructions / Restrictions: Discharge to [facility] 11/29/2022, intermediate. Discharge Orders/Prescriptions Prescriptions: [...] (50,000 unit) Tablet 1,[address] [facility] Tablet 60 mg PO DAILY [...] Dr. Sylvester Crooks MD; ALANNAH BENITO~ Signed [facility] Work Phone: [phone] 590-446405-03-2023 History and physical note Author Dr. Crooks [facility] November 19, 2022 5:00pm Note Date/Time November 13, 2022 7:4 6pm [facility] Medical Records Department [address] [place] [id number] History & Physical Exam 11/13/221939 MR#: [id number] Acct: [id number] Name: MAXIME AMARAL Rep #:[id number] : 1935 87 From: Sylvester Crooks MD PCP: ALANNAH BENITO Status:ADM IN Location: [facility] TCU10-1 HPI - General General Date of Admission: 11/13/22 Date of Service: 11/13/22 Chief Complaint: Here for rehabilitation. HPI Narrative 11/11/2022 MAXIME AMARAL, is a 87 Female who presents to [facility] Emergency Department with nausea, vomiting, diarrhea. [...] for rehabilitation, strengthening, prior to discharge to [facility] Medical History Alzheimer's disease, unspecified Depression, [...] for rehabilitation, strengthening, prior to discharge to [facility]. * Debility - PT/OT. * Cognition - [...] - Bupropion XL 150mg daily, stable chronic keno terminal operator use, GDR not recommended. * Alzheimer Disease [...] Sylvester Crooks MD; ALANNAH BENITO ~* Signed [facility] Work Phone: [phone]) 878-585104-28-[address] Crooks [facility] November 14, 2022 7:27pm Note Date/Time November 14, 2022 3:5 3pm [facility] Medical Records Department [address] [place] [address] Progress Note - Pharmacy 11/14/22 1531 MR#: [id number] Acct: [id number] Name: MAXIME AMARAL Rep #:[id number] : 1935 87 From: Roselyn Garzon PCP: ALANNAH BENITO Status:ADM IN Location: TCU TCU10-1 TCU RX Drug Regimen Review Subjective: TCU [...] by Sylvester Crooks MD> CC: ~ Signed [facility] Work Phone: [phone]) 815-858204-27-[address] Betancur [facility] November 13, 2022 2:06pm Note Date/Time November 13, 2022 1:5 6pm [facility] Medical Records Department [address] [place] [address] [facility] MR#: [id number] Acct: [id number] Name: MAXIME AMARAL Rep #:[id number] : 1935 87 From: Bernice Betancur MD PCP: ALANNAH BENITO Status:ADM IN Certification of patient admission REQUIRED AT TIME OF ADMISSION. I CERTIFY THAT POST-HOSPITAL ECF SERVICES ARE REQUIRED TO BE GIVEN ON AN IN-PATIENT BASIS BECAUSE OF THE ABOVE NAMED PATIENT'S NEED FOR GROUP HOME CARE ON A CONTINUING BASIS FOR THE CONDITION(S) FOR WHICH HE/SHE WAS RECEIVING IN-PATIENT HOSPITAL SERVICES PRIOR TO HIS/HER TRANSFER TO THE [facility]. 11/13/22 1406<Electronically signed by Bernice Betancur MD> [...] with hypothyroidism and dementia who presented to [facility] 11/11/2022 with a sodium of 127 [...] in before D/C Order can be placed): Retirement Facility 11/13/22 1406 <Electronically signed by Bernice Betancur MD> Cosigner Signature (if applicable): CC: Dr. Ryder Brody MD; ALANNAH BENITO ~ [facility] Work Phone: [phone]) 734-761804-26-[address] Betancur [facility] November 12, 2022 4:53pm Note Date/Time November 12, 2022 7:0 0am [facility] Medical Records Department [address] [place] [address] Progress Note - Hospitalist 11/12/22 0659 MR#: [id number] Acct: [id number] Name: MAXIME AMARAL Rep #:[id number] : 1935 87 From: Bernice Betancur MD PCP: ALANNAH BENITO Status:ADM IN [facility]230-4 Reason for Visit Reason for Visit: Diagnoses [...] % (Auto) 59.4, Lymph % (Auto) 31.3, Gove% (Auto) 7.4, Eos % (Auto) 0.9, Baso [...] Clarity Clear, Urine pH 6.0, Ur Specific Kirvin 1.010, Urine Protein Negative, Urine Glucose (UA) [...] % (Auto) Cancelled, Lymph % (Auto) Cancelled, Gove % (Auto) Cancelled, Eos % (Auto) Cancelled, [...] Drop Cells Cancelled, Ovalocytes Cancelled, Stomatocytes Cancelled, [place] Bodies Cancelled, Rodolfo Cells Cancelled, Bite Cells Cancelled, Crenated Cell [...] % (Auto) 63.6, Lymph % (Auto) 26.7, Gove % (Auto) 7.1, Eos % (Auto) 1.4, [...] Lovenox ordered. Charges/Coding Visit Charges Inpatient E&M: 15054 Subs Hosp L2 11/12/22 9229 <Electronically signed by Bernice Betancur MD> Cosigner Signature (if applicable): CC: ~ Signed [facility] Work Phone: [phone] Ewing [facility] November 11, 2022 11:41pm Note Date/Time November 11, 2022 5:3 3pm [facility] Medical Records Department [address] [place] [address] Emergency Department Summary 11/11/22 MR#: [id number] Acct: [id number] Name: MAXIME AMARAL Rep #:[id number] : 1935 87 From: Nancy Ewing MD PCP: ALANNAH BENITO Status:ADM IN Location[facility] GK757-8 HPI History of Present Illness Chief Complaint: Nausea/Vomiting/Diarrhea Detail of Chief Complaint: Generalized weakness Informant: patient and family Onset/Context/Timing Onset: Weeks Narrative Narrative: Patient presents via EMS from assisted living at [facility]. Son is at bedside and provides [...] pain. She denies fever or cough. [facility] Medical History Alzheimer's disease, unspecified Depression, [...] Medical decision making narrative: Patient placed on [employer]. EKG obtained to evaluate for cardiac arrhythmia/ischemia. [...] % (Auto) 59.4 Lymph % (Auto) 31.3 Gove % (Auto) 7.4 Eos % (Auto) 0.9 [...] Color Urine Clarity Urine pH Ur Specific Kirvin Urine Protein Urine Glucose (UA) Urine Ketones Urine Occult Blood Urine Nitrite Urine Bilirubin Urine Urobilinogen Ur Leukocyte Esterase Urine RBC Urine WBC Ur Squamous Epith Cells Urine Bacteria Urine Mucus 11/11/22 19:47 WBC RBC Hgb Hct MCV MCH MCHC RDW Std Deviation RDW Coeff of Kristal Plt Count MPV Immature Gran % (Auto) Neut % (Auto) Lymph % (Auto) Gove % (Auto) Eos % (Auto) Baso % [...] Clarity Clear Urine pH 6.0 Ur Specific Kirvin 1.010 Urine Protein Negative Urine Glucose (UA) [...] [Non-Staff] - Disposition Disposition: Acute Care Hospital [facility] What to do if you have Problems For any increased pain, shortness of breath, bleeding, nausea or vomiting, chestpain, or any unexpected problems, contact your Primary Care Provider. Call [facility] ([phone]) or report to the closest Emergency Room. Call 911 if necessary. 11/11/222340 <Electronically signed by Nancy Ewing MD> Cosigner Signature (if applicable): CC: ALANNAH BENITO ~ Signed [facility] Work Phone: [phone]) 711-754804-26-2023 History and physical note Author Dr. Brody [facility] November 11, 2022 10:26pm Note Date/Time November 11, 2022 9:3 3pm [facility] Medical Records Department [address] [place] [address] H&P Exam - Hospitalist 11/11/222132 MR#: [id number] Acct: [id number] Name: MAXIME AMARAL Rep #:[id number] : 1935 87 From: Ryder Brody MD PCP: ALANNAH BENITO Status:ADM IN [facility] - General General Date of Admission: 11/11/22 Date of Service: 11/11/22 Chief Complaint: Abnormal labs HPI Narrative MAXIME AMARAL, is a 87 F with a significant history of hypothyroidism and dementia; and who lives at assisted medicine facility at [facility] presenting to the emergency department with [...] the emergency department patient could not urinate. [facility] Medical History Alzheimer's disease, unspecified Depression, [...] % (Auto) 59.4, Lymph % (Auto) 31.3, Gove % (Auto) 7.4, Eos % (Auto) 0.9, [...] Clarity Clear, Urine pH 6.0, Ur Specific Kirvin 1.010, Urine Protein Negative, Urine Glucose (UA) [...] Lovenox ordered. Charges/Coding Visit Charges Inpatient E&M: 60387 Init Hosp L3 11/11/222225 <Electronically signed by Ryder Brody MD> Cosigner Signature (if applicable): CC: Dr. Ryder Brody MD; ALANNAH BENITO~ Signed [facility] Work Phone: Evaluation note* Diagnosis Onset Date Resolution Status Declining functional status acute Hypokalemia acute Hyponatremia acute Weakness acute Hypertension chronic [facility] Work Phone: Evaluation note* Diagnosis Onset Date Resolution Status Declining functional status acute Hyponatremia acute Hypertension chronic Alzheimer disease acute Debility acute Dehydration acute Depression acute Diabetes mellitus acute Hyperlipidemia acute Hyponatremia acute Hypothyroidism acute Hypertension chronic [facility] Work Phone: Evaluation note* Diagnosis Onset Date Resolution Status Declining functional status acute Hyponatremia acute Hypertension chronic Alzheimer disease acute Debility acute Depression acute Diabetes mellitus acute Hyperlipidemia acute Hypothyroidism acute Hypertension chronic Dehydration resolved Hyponatremia resolved [facility] Work Phone: Evaluation noteNo assessment information available [facility] Work Phone: History and physical note Author Dr. Brody [facility] November 11, 2022 10:26pm Note Date/Time November 11, 2022 9:3 3pm [facility] Medical Records Department [address] [place] [address] H&P Exam - Hospitalist 11/11/222132 MR#: [id number] Acct: [id number] Name: MAXIME AMARAL Rep #:[id number] : 1935 87 From: Ryder Brody MD PCP: ALANNAH BENITO Status:ADM IN [facility] [facility] BG002-4 HPI - General General Date of Admission: 11/11/22 Date of Service: 11/11/22 Chief Complaint: Abnormal labs HPI Narrative MAXIME AMARAL, is a 87 F with a significant history of hypothyroidism and dementia; and who lives at assisted medicine facility at [facility] presenting to the emergency department with [...] the emergency department patient could not urinate. [facility] Medical History Alzheimer's disease, unspecified Depression, [...] % (Auto) 59.4, Lymph % (Auto) 31.3, Gove % (Auto) 7.4, Eos % (Auto) 0.9, [...] Clarity Clear, Urine pH 6.0, Ur Specific Kirvin 1.010, Urine Protein Negative, Urine Glucose (UA) [...] PLAN: Plan Hyponatremia Sodium level at the [facility] nursing facility on the day of presentation [...] Lovenox ordered. Charges/Coding Visit Charges Inpatient E&M: 76621 Init Hosp L3 11/11/226 <Electronically signed by Ryder Brody MD> Cosigner Signature (if applicable): CC: Dr. Ryder Brody MD; ALANNAH BENITO~ Signed [facility] Work Phone: Hospital Discharge instructions Additional Instructions CT head face and neck negative. Right shoulder x-ray negative. 7 sutures placed. Have removed in 5 to 7 days.[facility] Work Phone: Reason for referral (narrative)No reason for referral information availableWMartins Ferry [facility] Work Phone: Chief Complaint and Reason [...] Complaint MONTHLY EXAM UNWITNESSED FALL MONTHLY EXAM GROUP HOME LAB WORK MONTHLY EXAM NURISNG HOME LABWORK Chief Complaint MONTHLY EXAM MONTHLY EXAM MONTHLY EXAM FALL Chief Complaint MONTHLY EXAM MONTHLY EXAM FALL LABWORK Chief Complaint Admit Date NEW CONCERN June 21, 2024 5 :08pm GROUP HOME LAB WORK July 11 5:00am GROUP HOME LAB WORK August 23, 2024 5:00am MONTHLY EXAM September 01, 2024 11:29am LABWORK October 03, 2024 5:0 0am Chief Complaint Admit Date GROUP HOME LAB WORK July 11 5:00am GROUP HOME LAB WORK August 23, 2024 5:00am MONTHLY EXAM September 01, 2024 11:29am MONTHLY EXAM September 20, 2024 3:13 pm LABWORK October 03, 2024 5:0 0am GROUP HOME LAB WORK October 06, 2024 5 :00am Chief Complaint Admit Date GROUP HOME LAB WORK July 11 5:00am GROUP HOME LAB WORK August 23, 2024 5:00am MONTHLY EXAM September 01, 2024 11:29am MONTHLY EXAM September 20, 2024 3:13 pm LABWORK October 03, 2024 5:0 0am GROUP HOME LAB WORK October 06, 2024 5 :00am LABWORK October 10, 2024 5:0 0am Chief Complaint Admit Date GROUP HOME LAB WORK July 11 5:00am GROUP HOME LAB WORK August 23, 2024 5:00am MONTHLY EXAM September 01, 2024 11:29am MONTHLY EXAM September 20, 2024 3:13 pm LABWORK October 03, 2024 5:0 0am GROUP HOME LAB WORK October 06, 2024 5 :00am LABWORK October 10, 2024 5:0 0am FALL, LACERATION November 03, 2024 9:0 6pm Chief Complaint Admit Date GROUP HOME LAB WORK July 11 5:00am GROUP HOME LAB WORK August 23, 2024 5:00am MONTHLY EXAM September 01, 2024 11:29am MONTHLY EXAM September 20, 2024 3:13 pm LABWORK October 03, 2024 5:0 0am GROUP HOME LAB WORK October 06, 2024 5 :00am LABWORK October 10, 2024 5:0 0am GROUP HOME LAB WORK October 17, 2024 5 :00am FALL, LACERATION November 03, 2024 9:0 6pm Chief Complaint Admit Date MONTHLY EXAM September 01, 2024 11:29am MONTHLY EXAM September 20, 2024 3:13 pm LABWORK October 03, 2024 5:0 0am GROUP HOME LAB WORK October 06, 2024 5 :00am LABWORK October 10, 2024 5:0 0am GROUP HOME LAB WORK October 17, 2024 5 :00am MONTHLY EXAM October 21, 2024 1:47 pm FALL, LACERATION November 03, 2024 9:0 6pm GROUP HOME LAB WORK November 14, 2024 4 :00am GROUP HOME LAB WORK November 22, 2024 5:00 am GROUP HOME LAB WORK December 13, 2024 5:0 0am Chief Complaint Admit Date GROUP HOME LAB WORK August 23, 2024 5:00am MONTHLY EXAM September 01, 2024 11:29am MONTHLY EXAM September 20, 2024 3:13 pm LABWORK October 03, 2024 5:0 0am GROUP HOME LAB WORK October 06, 2024 5 :00am LABWORK October 10, 2024 5:0 0am GROUP HOME LAB WORK October 17, 2024 5 :00am MONTHLY EXAM October 21, 2024 1:47 pm FALL, LACERATION November 03, 2024 9:0 6pm GROUP HOME LAB WORK November 14, 2024 4 :00am GROUP HOME LAB WORK November 22, 2024 5:00 am Chief Complaint Admit Date GROUP HOME LAB WORK October 06, 2024 5 :00am LABWORK October 10, 2024 5:0 0am GROUP HOME LAB WORK October 17, 2024 5 :00am MONTHLY EXAM October 21, 2024 1:47 pm FALL, LACERATION November 03, 2024 9:0 6pm GROUP HOME LAB WORK November 14, 2024 4 :00am GROUP HOME LAB WORK November 22, 2024 5:00 am MONTHLY EXAM December 06, 2024 4:15p m GROUP HOME LAB WORK December 13, 2024 5:0 0am GROUP HOME LAB WORK December 26, 2024 4:0 0am Chief Complaint Admit Date GROUP HOME LAB WORK October 06, 2024 5 :00am LABWORK October 10, 2024 5:0 0am GROUP HOME LAB WORK October 17, 2024 5 :00am MONTHLY EXAM October 21, 2024 1:47 pm FALL, LACERATION November 03, 2024 9:0 6pm GROUP HOME LAB WORK November 14, 2024 4 :00am GROUP HOME LAB WORK November 22, 2024 5:00 am MONTHLY EXAM December 06, 2024 4:15p m GROUP HOME LAB WORK December 13, 2024 5:0 0am GROUP HOME LAB WORK December 26, 2024 4:0 0am MONTHLY EXAM January 03, 2025 6:30 pm Advance Directives No Advanced Directives Records Found Advance Directive Response Recorded Date/ Time Name of Medical Power of Entry Examiner ? November 11, 2022 4:49pm Living Will Yes November 11, 2022 4:49pm Power of Entry Examiner Yes November 11 4:49pm Advance Directive Response Recorded Date/ Time Name of Medical Power of Entry Examiner Matilda Pritchett November 11, 2022 10:59pm Living Will Yes November 11, 2022 10:59pm Power of Entry Examiner Yes November 11 10:59pm Advance Directive Response Recorded Date/ Time Name of Medical Power of Entry Examiner Matilda Pritchett November 11, 2022 10:59pm Name of Medical Power of Entry Examiner christine Pritchett November 14, 2022 10:44am Living Will Yes November 14, 2022 10:44am Power of Entry Examiner Yes November 14 10:44am Advance Directive Response Recorded Date/ Time Living Will Yes November 14, 2022 10:44am Power of Entry Examiner Yes November 14 10:44am Advance Directive Response Recorded Date/ Time Name of Medical Power of Entry Examiner NYA MORRIS July 25, 2023 4:49am Living Will Yes July 25 4:49am Power of Entry Examiner Yes July 25 4:49am Advance Directive Response Recorded Date/ Time Living Will Yes November 03, 2024 9:16pm Do you have a Healthcare Power of Entry Examiner? Yes November 03, 2024 9:16pm Name of Medical Power of Entry Examiner Daniel Amaral November 03, 2024 9:16pm Summary [...] 2024 End: October 21, 2024 Poppy Mccracken NP, POST COMMANDER-C Attending Provider Active Start: October 21, 2024 [...] Dr. Mariano Dao MD Family Provider Active [facility] Primary Care Provider Active Team Status: Active Member Role Status Dates Dr. Nancy Ewing MD Emergency Provider Active ALANNAH, [facility] Primary Care Provider Active Dr. Ryder Brody MD Admit Provider, Attending Provider, Other Provider Active Team Status: Active Member Role Status Dates Dr. Nancy Ewing MD Emergency Provider [facility] Provider Active Dr. Ryder Brody MD Admit Provider, Attending Pro vider Active Team Status: Active Member Role Status Dates Dr. Nancy Ewing MD Emergency Provider Active ALANNAH [facility] Primary Care Provider Active Dr. Ryder Brody MD Admit Provider, Other Provide r Active Dr. Berince Betancur MD Attending Provider, Other Provid er Active Team Status: Inactive Member Role Status Dr. Nancy Ewing MD Emergency Provider Active ALANNAH, [facility] Primary Care Provider Active Dr. Ryder Brody MD Admit Provider, Other Provide r Active Dr. Bernice Betancur MD Attending Provider Active Team Status: Active Member Role Status [facility] Provider Active Dr. Sylvester Crooks MD Admit Provider, Attending Provid er Active Magnolia Tafoya POST COMMANDER-C Other Provider Active Dr. Steven Dean DO Other Provider Active Dr. Fany Dao MD Other Provider Active Tanisha Henriquez POST COMMANDER-C Other Provider Active Britany White POST COMMANDER, POST COMMANDER-C Other Provider Active Team Status: Inactive Member Role Status Dates ALANNAH [facility] Primary Care Provider Active Dr. Sylvester Crooks MD Attending Provider, Referring Pr ovider Active Team Status: Inactive Member Role Status Dates ALANNAH [facility] Primary Care Provider Active Dr. Sylvester Crooks MD Admit Provider, Attending Provid er Active Magnolia Tafoya POST COMMANDER-C Other Provider Active Dr. Steven Dean DO Other Provider Active Dr. Fany Dao MD Other Provider Active Tanisha Henriquez , POST COMMANDER-C Other Provider Active Britany White NP, POST COMMANDER-C Other Provider Active Team Status: Active Member Role Status Dates Dr. Mariano Dao MD Family Provider Active Dr. Pete Payne MD Primary Care Provider Active Team Status: Inactive Member Role Status Dates Out [facility] Doctor Primary Care Provider Active Dr. Pete Payne MD Attending Provider Active Team Status: Inactive Member Role Status Dates Out [facility] Doctor Primary Care Provider Active Poppy Mccracken POST COMMANDER, POST COMMANDER-C Attending Provider Active Team Status: Inactive Member Role Status Dates Out [facility] Doctor Primary Care Provider Active Pete [...] MD Primary Care Provider Active Poppy Mccracken POST COMMANDER, POST COMMANDER-C Attending Provider Active Team Status: Inactive Member [...] 2024 End: June 21, 2024 Poppy Mccracken POST COMMANDER, [employer]ER-C Attending Provider Active Start: June 21, 2024 [...] Attending Provider Active Start: December 26, 2024 Team Status: Active Member Role/Relationship Status Dates Dr. Pete Payne MD Primary Care Provider Active Team Status: Inactive Member Role/Relationship Status Dates Dr. Pete Payne MD Primary Care Provider Active Start: October 06, 2024 End: October 06, 2024 Pete ROBERTS MD Attending Provider Active Start: October 06, 2024 End: October 06, 2024 Team Status: Inactive Member Role/Relationship Status Dates Dr. Pete Payne MD Primary Care Provider Active Start: October 10, 2024 End: October 10, 2024 Pete ROBERTS MD Attending Provider Active Start: October 10, 2024 End: October 10, 2024 Team Status: Inactive Member Role/Relationship Status Dates Dr. Pete Payne MD Primary Care Provider Active Start: October 17, 2024 End: October 17, 2024 Pete ROBERTS MD Attending Provider Active Start: October 17, 2024 End: October 17, 2024 Team Status: Inactive Member Role/Relationship Status Dates Dr. Pete Payne MD Primary Care Provider Active Start: October 21, 2024 End: October 21, 2024 Poppy Mccracken POST COMMANDER, [employer] COMMANDER-C Attending Provider Active Start: October 21, 2024 End: October 21, 2024 Team Status: Inactive Member Role/Relationship Status Dates Dr. Pete Payne MD Primary Care Provider Active Start: November 03, 2024 End: November 04, 2024 Dr. Alirio Edward DO Attending Provider Active Start : November 03, 2024 End: November 04, 2024 Dr. Alirio Edward DO Emergency Provider Active Start : November 03, 2024 End: November 04, 2024 Team Status: Inactive Member Role/Relationship Status Dates Dr. Pete Payne MD Primary Care Provider Active Start: November 14, 2024 End: November 14, 2024 Pete ROBERTS MD Attending Provider Active Start: November 14, 2024 End: November 14, 2024 Pete ROBERTS MD Referring Provider Active Start: November 14, 2024 End: November 14, 2024 Team Status: Inactive Member Role/Relationship Status Dates Dr. Pete Payne MD Primary Care Provider Active Start: November 22, 2024 End: November 22, 2024 Pete ROBERTS MD Attending Provider Active Start: November 22, 2024 End: November 22, 2024 Team Status: Inactive Member Role/Relationship Status Dates Dr. Pete Payne MD Primary Care Provider Active Start: December 06, 2024 End: December 06, 2024 Dr. Pete Payne MD Attending Provider Active Start: December 06, 2024 End: December 06, 2024 Team Status: Inactive Member Role/Relationship Status Dates Dr. Pete Payne MD Primary Care Provider Active Start: December 13, 2024 End: December 13, 2024 Pete ROBERTS MD Attending Provider Active Start: December 13, 2024 End: December 13, 2024 Team Status: Active Member Role/Relationship Status Dates Dr. Pete Payne MD Primary Care Provider Active Start: December 26, 2024 Pete ROBERTS MD Attending Provider Active Start: December 26, 2024 Pete ROBERTS MD Referring Provider Active Start: December 26, 2024 Team Status: Active Member Role/Relationship Status Dates Dr. Pete Payne MD Primary Care Provider Active Start: January 13, 2025 Pete ROBERTS MD Attending Provider Active Start: January 13, 2025 Team Status: Inactive Member Role/Relationship Status Dates Dr. Pete Payne MD Primary Care Provider Active Start: January 03, 2025 End: January 03, 2025 Poppy Mccracken POST COMMANDER, [employer] COMMANDER-C Attending Provider Active Start: January 03, 2025 End: January 03, 2025 Team Status: Active Member Role/Relationship Status Dates Dr. Pete Payne MD Primary Care Provider Active Start: January 13, 2025 Pete ROBERTS MD Attending Provider Active Start: January 13, 2025 Goals (unrecognized section and content) Goals may [...] ized section and content) DATE CREATED AUTHOR 02/05/2025 [facility] FOR RECORDS PERTAINING [...] BE BASED ON THE PRIMARY CLINICAL RECORDS. [employer] [facility]. provides no warranty or guarantee of the accuracy or completeness of information in this document.
== END ==
LOC: OLS.WHLCAR 05:00
PROVIDERS: PCP Internal Medicine; Visit Provider Internal Medicine
DX: E03.9 Hypothyroidism, unspecified (principal)
CPT/HCPCS: 36415; 84443

== ENCOUNTER → 2025-02-21 05:00 | Outpatient (REF) | payer MEDICARE, MEDICAID, SELFPAY ==
--- OUTSIDE RECORDS SUMMARY | 2025-02-21 03:40 | XMS RPT_ITS | CCD ---
Author Organization [facility] Care Team Providers Care Purchasing And Fiscal Clerk Name Role Phone Dr. Nancy Ewing Emergency Provider [phone] ALANNAH BENITO Primary Care Provider Unavail able Dr. Ryder Brody Admit Provider Dr. Ryder Brody Attending Provider Dr. Ryder Brody Other Provider ALANNAH BENITO Primary Care Provider Dr. Bernice Betancur Attending Provider Dr. Bernice Betancur Other Provider [facility] Doctor, Out of Primary Care Provider Silvia Mccracken HOT BLASTER, HOT BLASTER-C Poppy Attending Provider Dr. Pete Dietz Attending Provider [phone] Dr. Pete Payne Primary Care Provider [phone] Dr. Pete Payne Attending Provider [phone] Kaykay HOT BLASTER, HOT BLASTER-C Poppy Attending Provider Dr. Pete Dietz Primary Care Provider [phone] Dr. Pete Payne Attending Provider [phone] Kaykay HOT BLASTER, HOT BLASTER-C Poppy Attending Provider Dr. Pete Dietz Primary Care Provider [phone] Dr. Pete Payne Attending Provider [phone] Kaykay HOT BLASTER, HOT BLASTER-C Poppy Attending Provider Elmer SAMUELS, Dr. Freeman Primary Care Provider Kaykay HOT BLASTER-CPoppy Attending Provider Pete Payne MD Attending Provider UnavailMateo Cordova Attending Provider Elmer SAMUELS, Dr. Freeman Primary Care Provider Elmer SAMUELS, Dr. Freeman Attending Provider Cheyanne DRISCOLL, Dr. Amezquita Emergency Provider Elmer SAMUELS, Dr. Freeman Primary Care Provider Pete Payne MD Attending Provider Unavaila naun Mccracken HOT BLASTERNadiaCPoppy Attending Provider Cheyanne DRISCOLL, Dr. Amezquita Attending Provider [phone] Pete Payne MD Referring Provider Unavaildeisy Payne MD, Dr. Freeman Primary Care Provider Pete Payne MD Attending Provider Unavaildeisy Payne MD, Dr. Freeman Primary Care Provider Pete Payne MD Attending Provider Unavaildeisy Payne MD, Dr. Freeman Attending Provider Oleghe, Efewongbe Primary Care Unavailable Oleghe OLS Efewongbe Attending Unavailabl e Oleghe, Efewongbe Primary Care Unavailable Oleghe OLS, Celesteewongbe Attending Unavailabl e Oleghe, Efewongbe Primary Care Unavailable Poppy Mccracken NP Attending Unavailable Oleghe, Efewongbe Primary Care Unavailable [...] Unavailable Oleghe, Efewongbe Primary Care Unavailable [place]ickton HOT BLASTER, Poppy Attending Unavailable Oleghe, Efewongbe Primary Care Unavailable Oleghe OLS, Efewongbe Attending Unavailabl e Oleghe, Efewongbe Primary Care Unavailable Oleghe OLS, Efewongbe Attending Unavailabl e Alirio Edward Attending Unavailable Oleghe, Efewongbe Primary Care Unavailable [...] Unavailable Oleghe, Efewongbe Primary Care Unavailable [place]ton HOT BLASTER, Poppy Attending Unavailable Oleghe, Efewongbe Primary Care Unavailable Oleghe, Efewongbe Attending Unavailable Oleghe, Efewongbe Primary Care Unavailable Oleghe OLS, Efewongbe Attending Unavailabl e Oleghe, Efewongbe Primary Care Unavailable Oleghe OLS, Efewongbe Attending Unavailabl e Oleghe, Efewongbe Primary Care Unavailable Tickton HOT BLASTER, Poppy Attending Unavailable Oleghe OLS, Efewongbe Referring Unavailabl e Oleghe, Efewongbe Primary Care Unavailable Oleghe OLS, Efewongbe Attending Unavailabl e Oleghe, Efewongbe Primary Care Unavailable Tickton HOT BLASTER, Poppy Attending Unavailable Oleghe, Efewongbe Primary Care Unavailable Oleghe, Efewongbe Attending Unavailable Oleghe, Efewongbe Primary Care Unavailable [place]ton HOT BLASTER, Poppy Attending Unavailable Oleghe, Efewongbe Primary Care Unavailable Mateo Cardoza Attending Unavailable Oleghe, Efewongbe Primary Care Unavailable Oleghe OLS, Efewongbe Attending Unavailabl e Oleghe, Efewongbe Primary Care Unavailable Oleghe OLS, Efewongbe Attending Unavailabl e Allergies Allergy Classification Reported Allergen(s) Allergy Type Date of Onset Reaction(s) Facility (19 sources) Penicillins Propensity to adverse reactions 3 Diarrhea [facility] (1 source) Penicillins Drug allergy (disorder) 5 [facility] Repository Medications Current Medications Medication Drug Class(es) [...] 15 mg oral tablet (17 sources) Start: 11-26-2022 take 7.5 mg by [...] Documented Date Episodic/Chronic Deficiency and other anemia (2 sources) Anemia in chronic kidney disease; Translations: [Anemia [...] [Noninfective gastroenteritis and colitis, unspecified] 02-09-2017 Episodic 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7 [facility] Automated lymphocyte count a s percentage of total leukocytesOrdered By: Pete Payne on 01-13-2025 Lymphocytes/100 WBC Auto (Unsp spec) 27.3 % 19-41 [facility] Basophil percentageOrdered B y: Pete Payne on 01-13-2025 Basophils/100 WBC (Bld) 0.9 % 0-1 [facility] Eosinophil percentageOrdered By: alexisalbanysudarshan Payne on 01-13-2025 Eosinophils/100 WBC (Bld) 3.4 % 0-5 [facility] Erythrocyte distribution wid th ratioOrdered By: alexisalbanysudarshan Payne on 01-13-2025 Erythrocyte distribution width (RBC) [Ratio] 13.2 % 11.6-14.6 [facility] Erythrocyte distribution wid th standard deviationOrdered By: geena Payne on 01-13-2025 Erythrocyte distribution width (RBC) [Ratio] 45.4 fl High 35.1-43.9 [facility] Hematocrit Auto (Bld) [Volum e fraction]Ordered By: Pete Payne on 01-13-2025 Hematocrit (Bld) [Volume fraction] 36.0 % Low 37-47 [facility] Hemoglobin measurementOrdere d By: Pete Payne on 01-13-2025 Hemoglobin (Bld) [Mass/Vol] 11.4 g/dL Low 12.0-15.0 [facility] Immature granulocytes/100 WB C Auto (Bld)Ordered By: Pete Payne on 01-13-2025 Immature granulocytes/100 WBC (Bld) 0.500 % 0.0-0.9 [facility] Comment on above: IG% - Immature Granu locytes (promyelocytes, myelocytes and metamyelocytes) > 1% indicates that a LEFT SHIFT is Present. MCV (mean corpuscular volume ) determinationOrdered By: Pete Payne on 01-13-2025 MCV (RBC) [Entitic vol] 93.3 fL 81-99 [facility] Mean corpuscular hemoglobin (MCH) determinationOrdered By: Pete Payne on 01-13-2025 MCH (RBC) [Entitic mass] 29.5 pg 27.0-32.0 [facility] Mean corpuscular hemoglobin concentration (MCHC) determinationOrdered By: Pete Payne on 01-13-2025 MCHC (RBC) [Mass/Vol] 31.7 g/dL Low 32-36 [facility] Mean platelet volume determi nationOrdered By: Pete Payne on 01-13-2025 Platelet mean volume (Bld) [Entitic vol] 10.8 fL 6.2-12.0 [facility] Monocyte percentageOrdered B y: Pete Payne on 01-13-2025 Monocytes/100 WBC (Bld) 6.9 % 0-10 [facility] Neutrophil percentageOrdered By: [facility] Payne on 01-13-2025 Neutrophils/100 WBC (Bld) 61.0 % 47-70 [facility] Nucleated red blood cell per centageOrdered By: Pete Payne on 01-13-2025 Nucleated RBC/100 WBC (Bld) [Ratio] 0 % 0-5 [facility] Platelet countOrdered By: Celeste Beltranyulia on 01-13-2025 Platelets (Bld) [#/Vol] 316 10*3/uL 150-450 [facility] RBC Auto (Bld) [#/Vol]Ordere d By: Pete Payne on 01-13-2025 RBC (Bld) [#/Vol] 3.86 10*6/uL Low 4.2-5.4 [facility] White blood cell (WBC) count Ordered By: Pete Beltranyulia on 01-13-2025 WBC (Bld) [#/Vol] 8.5 10*3/uL 4.4-11.0 [facility] TSH DL <= 0.005 mIU/L QnOrde red By: Pete Payne on 12-26-2024 TSH Qn 4.080 uIU/mL 0.300-4.200 [facility] Absolute lymphocyte countOrd ered By: Pete Payne on 12-13-2024 Lymphocytes Auto (Unsp spec) [#/Vol] 2.57 10*3/uL 0.83-4.51 [facility] Absolute neutrophil countOrd ered By: Pete Payne on 12-13-2024 Neutrophils (Bld) [#/Vol] 5.1 10*3/uL 2.0-7.7 [facility] Automated lymphocyte count a s percentage of total leukocytesOrdered By: Celestealexsikeishasudarshan Pfeifferriteshyulia on 12-13-2024 Lymphocytes/100 WBC Auto (Unsp spec) 29.2 % 19-41 [facility] Basophil percentageOrdered B y: Pete Beltranyulia on 12-13-2024 Basophils/100 WBC (Bld) 0.8 % 0-1 [facility] Eosinophil percentageOrdered By: Pete Beltranyulia on 12-13-2024 Eosinophils/100 WBC (Bld) 3.5 % 0-5 [facility] Erythrocyte distribution wid th ratioOrdered By: Peet Kentrellriteshyulia on 12-13-2024 Erythrocyte distribution width (RBC) [Ratio] 13.4 % 11.6-14.6 [facility] Erythrocyte distribution wid th standard deviationOrdered By: Pete Payne on 12-13-2024 Erythrocyte distribution width (RBC) [Ratio] 46.0 fl High 35.1-43.9 [facility] Hematocrit Auto (Bld) [Volum e fraction]Ordered By: Pete Payne on 12-13-2024 Hematocrit (Bld) [Volume fraction] 33.0 % Low 37-47 [facility] Hemoglobin measurementOrdere d By: Pete Payne on 12-13-2024 Hemoglobin (Bld) [Mass/Vol] 10.6 g/dL Low 12.0-15.0 [facility] Immature granulocytes/100 WB C Auto (Bld)Ordered By: alexisalbanysudarshan Payne on 12-13-2024 Immature granulocytes/100 WBC (Bld) 0.300 % 0.0-0.9 [facility] Comment on above: IG% - Immature Granu locytes (promyelocytes, myelocytes and metamyelocytes) > 1% indicates that a LEFT SHIFT is Present. MCV (mean corpuscular volume ) determinationOrdered By: Pete Payne on 12-13-2024 MCV (RBC) [Entitic vol] 94.0 fL 81-99 [facility] Mean corpuscular hemoglobin (MCH) determinationOrdered By: Pete Payne on 12-13-2024 MCH (RBC) [Entitic mass] 30.2 pg 27.0-32.0 [facility] Mean corpuscular hemoglobin concentration (MCHC) determinationOrdered By: Pete Payne on 12-13-2024 MCHC (RBC) [Mass/Vol] 32.1 g/dL 32-36 [facility] Mean platelet volume determi nationOrdered By: geena Payne on 12-13-2024 Platelet mean volume (Bld) [Entitic vol] 9.9 fL 6.2-12.0 [facility] Monocyte percentageOrdered B y: Pete Payne on 12-13-2024 Monocytes/100 WBC (Bld) 8.1 % 0-10 [facility] Neutrophil percentageOrdered By: Pete Payne on 12-13-2024 Neutrophils/100 WBC (Bld) 58.1 % 47-70 [facility] Nucleated red blood cell per centageOrdered By: Pete Payne on 12-13-2024 Nucleated RBC/100 WBC (Bld) [Ratio] 0 % 0-5 [facility] Platelet countOrdered By: Celeste alexisanne Payne on 12-13-2024 Platelets (Bld) [#/Vol] 309 10*3/uL 150-450 [facility] RBC Auto (Bld) [#/Vol]Ordere d By: Pete Payne on 12-13-2024 RBC (Bld) [#/Vol] 3.51 10*6/uL Low 4.2-5.4 [facility] White blood cell (WBC) count Ordered By: Pete Payne on 12-13-2024 WBC (Bld) [#/Vol] 8.8 10*3/uL 4.4-11.0 [facility] Hemoglobin A1c percentageOrd ered By: Pete Payne on 11-22-2024 HbA1c (Bld) [Mass fraction] 7.0 % High <5.7 [facility] Comment on above: Normal < 5.7 % Predi abetic 5.7 - 6.4 % Diabetic >or= 6.5 % Please note range changes. TSH DL <= 0.005 mIU/L QnOrde red By: Pete Payne on 11-14-2024 TSH Qn 3.270 uIU/mL 0.300-4.200 [facility] Brain/Head without Contrasto n 11-03-2024 Brain/Head without Contrast [facility] [address] [place], [place] [address] Brain/Head without Contrast MR#: [id number] Acct: [id number] Name: MAXIME AMARAL Ellie Rep #: [id number] : 1935 F 89 From: Davin Sotelo DO PCP: Dr. Pete Payne MD Status: [facility] ER Study: Brain/Head without Contrast Date of Exam: 10/18 02/10 Exam# [id number] Ordering Dr: Alirio Edward DO PROCEDURE: BRAIN/HEAD [...] NO ACUTE FINDINGS. [facility] CC: Dr. Pete Payne MD; Dr. Alirio Edward DO Field Service Manager: Signed Normal [facility] Emergency Department Summary on 11-03-2024 Emergency Department Summary [facility] Medical Records Department [address] [place] [address] Emergency Department Summary 11/03/24 MR#: [id number] Acct: [id number] Name: MAXIME AMARAL Rep #: [id number] : 1935 89 From: Alirio Patel PCP: Dr. Pete Payne MD Status:REG ER Location: ED HPI HPI - Fall History of Present Illness Chief Complaint: Fall Informant: patient and family Narrative Narrative: Patient brought in by EMS from [facility] witnessed fall head injury. Patient [...] from paperwork. She has baseline per son. [facility] Medical History Dry eye syndrome of [...] for te (more content not included)... Normal [facility] Shoulder min 2 Viewson 11-03 Shoulder min 2 Views [facility] [address] [place] [address] Shoulder min 2 Views MR#: [id number] Acct: [id number] Name: MAXIME AMARAL Rep #: [id number] : 1935 F 89 From: Davin Sotelo DO PCP: Dr. Pete Payne MD Status: REG ER Study: Shoulder min 2 Views Date of Exam: 11/03/24 Exam# [id number] Ordering Dr: Alirio Edward DO PROCEDURE: SHOULDER MIN 2 VIEWS 11/03/2024 REASON FOR EXAM: INJURY TECHNIQUE: 3 view(s) of the right shoulder COMPARISON: None FINDINGS: Bones: No acute fracture. Joints: Normal alignment of the acromioclavicular and glenohumeral joints. Soft tissues: Soft tissues are unremarkable. Other: RAD/Shoulder min 2 Views IMPRESSION: NO ACUTE FRACTURE OR DISLOCATION. [facility] CC: Dr. Pete Payne MD; Dr. Alirio Edward DO Field Service Manager: Signed [facility] Sinus/Facial Boneon 11-04-19 Sinus/Facial Bone [facility] [address] [place] [id number] Sinus/Facial Bone MR#: [id number] Acct: [id number] Name: MAXIME AMARAL Rep #: [id number] : 1935 F 89 From: Davin Sotelo DO PCP: Dr. Pete Payne MD Status: [facility] Study: Sinus/Facial Bone Date of Exam: 11/03/24 Exam# [id number] Ordering Dr: Alirio Edward DO PROCEDURE: SINUS/FACIAL [...] supraorbital region. No acute fracture. [facility] CC: Dr. Pete Payne MD; Dr. Alirio Edward DO Field Service Manager: Signed Normal [facility] Spine Cervical without Contr ason 11-03-2024 Spine Cervical without Contras [facility] [address] [place] [address] Spine Cervical without Contras MR#: [id number] Acct: [id number] Name: MAXIME AMARAL Rep #: [id number] : 1935 F 89 From: Davin Sotelo DO PCP: Dr. Pete Payne MD Status: REG ER Study: Spine Cervical without Contras Date of Exam: 0 11/03/24 Exam# [id number] Ordering Dr: Alirio Edward DO PROCEDURE: SPINE [...] No acute fracture or subluxation. Reading Location: [facility] CC: Dr. Pete Payne MD; Dr. Alirio Edward DO Field Service Manager: Signed Normal [facility] Absolute lymphocyte countOrd ered By: Pete Payne on 10-17-2024 Lymphocytes Auto (Unsp spec) [#/Vol] 3.03 10*3/uL 0.83-4.51 [facility] Absolute neutrophil countOrd ered By: Pete Payne on 10-17-2024 Neutrophils (Bld) [#/Vol] 5.3 10*3/uL 2.0-7.7 [facility] Automated lymphocyte count a s percentage of total leukocytesOrdered By: Pete Payne on 10-17-2024 Lymphocytes/100 WBC Auto (Unsp spec) 31.8 % 19-41 [facility] Basophil percentageOrdered B y: Pete Payne on 10-17-2024 Basophils/100 WBC (Bld) 0.8 % 0-1 [facility] Eosinophil percentageOrdered By: alexisalbanysudarshan Payne on 10-17-2024 Eosinophils/100 WBC (Bld) 3.6 % 0-5 [facility] Erythrocyte distribution wid th (RBC) [Ratio]Ordered By: [facility] Payne on 10-17-2024 Erythrocyte distribution width (RBC) [Entitic vol] 45.9 fL High 35.1-43.9 [facility] Erythrocyte distribution wid th ratioOrdered By: [facility] Payne on 10-17-2024 Erythrocyte distribution width (RBC) [Ratio] 13.4 % 11.6-14.6 [facility] Erythrocyte distribution wid th standard deviationOrdered By: alexisalbanysudarshan Payne on 10-17-2024 Erythrocyte distribution width (RBC) [Ratio] 45.9 fl High 35.1-43.9 [facility] Hematocrit Auto (Bld) [Volum e fraction]Ordered By: Pete Payne on 10-17-2024 Hematocrit (Bld) [Volume fraction] 34.1 % Low 37-47 [facility] Hemoglobin measurementOrdere d By: Pete Payne on 10-17-2024 Hemoglobin (Bld) [Mass/Vol] 11.1 g/dL Low 12.0-15.0 [facility] Immature granulocytes/100 WB C Auto (Bld)Ordered By: geena Beltranyulia on 10-17-2024 Immature granulocytes/100 WBC (Bld) 0.400 % 0.0-0.9 [facility] Comment on above: IG% - Immature Granu locytes (promyelocytes, myelocytes and metamyelocytes) > 1% indicates that a LEFT SHIFT is Present. Lymphocytes Auto (Unsp spec) [#/Vol]Ordered By: Pete Beltranyulia on 10-17-2024 Lymphocytes (Bld) [#/Vol] 3.03 10*3/uL 0.83-4.51 [facility] Lymphocytes/100 WBC Auto (Un sp spec)Ordered By: Celestealexiskeishasudarshan Pfeifferriteshyulia on 10-17-2024 Lymphocytes/100 WBC (Bld) 31.8 % 19-41 [facility] MCV (mean corpuscular volume ) determinationOrdered By: Pete Pfeifferriteshyulia on 10-17-2024 MCV (RBC) [Entitic vol] 92.4 fL 81-99 [facility] Mean corpuscular hemoglobin (MCH) determinationOrdered By: Pete Payne on 10-17-2024 MCH (RBC) [Entitic mass] 30.1 pg 27.0-32.0 [facility] Mean corpuscular hemoglobin concentration (MCHC) determinationOrdered By: Pete Payne on 10-17-2024 MCHC (RBC) [Mass/Vol] 32.6 g/dL 32-36 [facility] Mean platelet volume determi nationOrdered By: Saturninokeishasudarshan Pfeifferriteshyulia on 10-17-2024 Platelet mean volume (Bld) [Entitic vol] 10.0 fL 6.2-12.0 [facility] Monocyte percentageOrdered B y: Saturninokeishasudarshan Pfeifferriteshyulia on 10-17-2024 Monocytes/100 WBC (Bld) 7.4 % 0-10 [facility] Neutrophil percentageOrdered By: Pete Payne on 10-17-2024 Neutrophils/100 WBC (Bld) 56.0 % 47-70 [facility] Nucleated red blood cell per centageOrdered By: Saturninokeishasudarshan Pfeifferriteshyulia on 10-17-2024 Nucleated RBC/100 WBC (Bld) [Ratio] 0 % 0-5 [facility] Platelet countOrdered By: Celeste terezasudarshan Pfeifferriteshyulia on 10-17-2024 Platelets (Bld) [#/Vol] 346 10*3/uL 150-450 [facility] RBC Auto (Bld) [#/Vol]Ordere d By: Saturninokeishasudarshan Pfeifferriteshyulia on 10-17-2024 RBC (Bld) [#/Vol] 3.69 10*6/uL Low 4.2-5.4 [facility] White blood cell (WBC) count Ordered By: Pete Payne on 10-17-2024 WBC (Bld) [#/Vol] 9.5 10*3/uL 4.4-11.0 [facility] Absolute lymphocyte countOrd ered By: Pete Payne on 10-10-2024 Lymphocytes Auto (Unsp spec) [#/Vol] 2.36 10*3/uL 0.83-4.51 [facility] Absolute neutrophil countOrd ered By: Pete Beltrane on 10-10-2024 Neutrophils (Bld) [#/Vol] 5.5 10*3/uL 2.0-7.7 [facility] Automated lymphocyte count a s percentage of total leukocytesOrdered By: Pete Payne on 10-10-2024 Lymphocytes/100 WBC Auto (Unsp spec) 26.6 % 19-41 [facility] Basophil percentageOrdered B y: Pete Payne on 10-10-2024 Basophils/100 WBC (Bld) 0.9 % 0-1 [facility] Eosinophil percentageOrdered By: [facility] Payne on 10-10-2024 Eosinophils/100 WBC (Bld) 2.8 % 0-5 [facility] Erythrocyte distribution wid th (RBC) [Ratio]Ordered By: Pete Payne on 10-10-2024 Erythrocyte distribution width (RBC) [Entitic vol] 45.0 fL High 35.1-43.9 [facility] Erythrocyte distribution wid th ratioOrdered By: Pete Beltrane on 10-10-2024 Erythrocyte distribution width (RBC) [Ratio] 13.2 % 11.6-14.6 [facility] Erythrocyte distribution wid th standard deviationOrdered By: geena Beltrane on 10-10-2024 Erythrocyte distribution width (RBC) [Ratio] 45.0 fl High 35.1-43.9 [facility] Hematocrit Auto (Bld) [Volum e fraction]Ordered By: Pete Payne on 10-10-2024 Hematocrit (Bld) [Volume fraction] 35.0 % Low 37-47 [facility] Hemoglobin measurementOrdere d By: Pete Payne on 10-10-2024 Hemoglobin (Bld) [Mass/Vol] 11.3 g/dL Low 12.0-15.0 [facility] Immature granulocytes/100 WB C Auto (Bld)Ordered By: Pete Payne on 10-10-2024 Immature granulocytes/100 WBC (Bld) 0.500 % 0.0-0.9 [facility] Comment on above: IG% - Immature Granu locytes (promyelocytes, myelocytes and metamyelocytes) > 1% indicates that a LEFT SHIFT is Present. Lymphocytes Auto (Unsp spec) [#/Vol]Ordered By: Pete Payne on 10-10-2024 Lymphocytes (Bld) [#/Vol] 2.36 10*3/uL 0.83-4.51 [facility] Lymphocytes/100 WBC Auto (Un sp spec)Ordered By: Pete Payne on 10-10-2024 Lymphocytes/100 WBC (Bld) 26.6 % 19-41 [facility] MCV (mean corpuscular volume ) determinationOrdered By: Pete Payne on 10-10-2024 MCV (RBC) [Entitic vol] 92.6 fL 81-99 [facility] Mean corpuscular hemoglobin (MCH) determinationOrdered By: Pete Payne on 10-10-2024 MCH (RBC) [Entitic mass] 29.9 pg 27.0-32.0 [facility] Mean corpuscular hemoglobin concentration (MCHC) determinationOrdered By: Pete Payne on 10-10-2024 MCHC (RBC) [Mass/Vol] 32.3 g/dL 32-36 [facility] Mean platelet volume determi nationOrdered By: geena Payne on 10-10-2024 Platelet mean volume (Bld) [Entitic vol] 10.1 fL 6.2-12.0 [facility] Monocyte percentageOrdered B y: Pete Payne on 10-10-2024 Monocytes/100 WBC (Bld) 6.7 % 0-10 [facility] Neutrophil percentageOrdered By: geena Payne on 10-10-2024 Neutrophils/100 WBC (Bld) 62.5 % 47-70 [facility] Nucleated red blood cell per centageOrdered By: Pete Payne on 10-10-2024 Nucleated RBC/100 WBC (Bld) [Ratio] 0 % 0-5 [facility] Platelet countOrdered By: Ef geena Payne on 10-10-2024 Platelets (Bld) [#/Vol] 361 10*3/uL 150-450 [facility] RBC Auto (Bld) [#/Vol]Ordere d By: Pete Beltrane on 10-10-2024 RBC (Bld) [#/Vol] 3.78 10*6/uL Low 4.2-5.4 [facility] White blood cell (WBC) count Ordered By: Pete Payne on 10-10-2024 WBC (Bld) [#/Vol] 8.9 10*3/uL 4.4-11.0 [facility] Absolute lymphocyte countOrd ered By: Pete Payne on 10-06-2024 Lymphocytes Auto (Unsp spec) [#/Vol] 2.51 10*3/uL 0.83-4.51 [facility] Absolute neutrophil countOrd ered By: Pete Payne on 10-06-2024 Neutrophils (Bld) [#/Vol] 4.8 10*3/uL 2.0-7.7 [facility] Automated lymphocyte count a s percentage of total leukocytesOrdered By: Pete Beltranyulia on 10-06-2024 Lymphocytes/100 WBC Auto (Unsp spec) 30.2 % 19-41 [facility] Basophil percentageOrdered B y: Pete Beltrane on 10-06-2024 Basophils/100 WBC (Bld) 1.0 % 0-1 [facility] Eosinophil percentageOrdered By: Pete Beltrane on 10-06-2024 Eosinophils/100 WBC (Bld) 3.1 % 0-5 [facility] Erythrocyte distribution wid th (RBC) [Ratio]Ordered By: Pete Payne on 10-06-2024 Erythrocyte distribution width (RBC) [Entitic vol] 44.4 fL High 35.1-43.9 [facility] Erythrocyte distribution wid th ratioOrdered By: Saturninoalbanysudarshan Payne on 10-06-2024 Erythrocyte distribution width (RBC) [Ratio] 13.3 % 11.6-14.6 [facility] Erythrocyte distribution wid th standard deviationOrdered By: alexisalbanysudarshan Payne on 10-06-2024 Erythrocyte distribution width (RBC) [Ratio] 44.4 fl High 35.1-43.9 [facility] Hematocrit Auto (Bld) [Volum e fraction]Ordered By: Pete Payne on 10-06-2024 Hematocrit (Bld) [Volume fraction] 33.2 % Low 37-47 [facility] Hemoglobin measurementOrdere d By: alexisalbanysudarshan Payne on 10-06-2024 Hemoglobin (Bld) [Mass/Vol] 11.2 g/dL Low 12.0-15.0 [facility] Immature granulocytes/100 WB C Auto (Bld)Ordered By: [facility] Payne on 10-06-2024 Immature granulocytes/100 WBC (Bld) 0.400 % 0.0-0.9 [facility] Comment on above: IG% - Immature Granu locytes (promyelocytes, myelocytes and metamyelocytes) > 1% indicates that a LEFT SHIFT is Present. Lymphocytes Auto (Unsp spec) [#/Vol]Ordered By: alexisalbanysudarshan Pfeifferyulia on 10-06-2024 Lymphocytes (Bld) [#/Vol] 2.51 10*3/uL 0.83-4.51 [facility] Lymphocytes/100 WBC Auto (Un sp spec)Ordered By: Ptee Payne on 10-06-2024 Lymphocytes/100 WBC (Bld) 30.2 % 19-41 [facility] MCV (mean corpuscular volume ) determinationOrdered By: Pete Payne on 10-06-2024 MCV (RBC) [Entitic vol] 91.5 fL 81-99 [facility] Mean corpuscular hemoglobin (MCH) determinationOrdered By: alexisalbanysudarshan Payne on 10-06-2024 MCH (RBC) [Entitic mass] 30.9 pg 27.0-32.0 [facility] Mean corpuscular hemoglobin concentration (MCHC) determinationOrdered By: Pete Payne on 10-06-2024 MCHC (RBC) [Mass/Vol] 33.7 g/dL 32-36 [facility] Mean platelet volume determi nationOrdered By: Pete Payne on 10-06-2024 Platelet mean volume (Bld) [Entitic vol] 9.8 fL 6.2-12.0 [facility] Monocyte percentageOrdered B y: Efgeena Beltrane on 10-06-2024 Monocytes/100 WBC (Bld) 7.9 % 0-10 [facility] Neutrophil percentageOrdered By: Pete Payne on 10-06-2024 Neutrophils/100 WBC (Bld) 57.4 % 47-70 [facility] Nucleated red blood cell per centageOrdered By: Pete Payne on 10-06-2024 Nucleated RBC/100 WBC (Bld) [Ratio] 0 % 0-5 [facility] Platelet countOrdered By: Celeste alexisanne Payne on 10-06-2024 Platelets (Bld) [#/Vol] 348 10*3/uL 150-450 [facility] RBC Auto (Bld) [#/Vol]Ordere d By: Saturninokeishasudarshan Payne on 10-06-2024 RBC (Bld) [#/Vol] 3.63 10*6/uL Low 4.2-5.4 [facility] White blood cell (WBC) count Ordered By: Pete Payne on 10-06-2024 WBC (Bld) [#/Vol] 8.3 10*3/uL 4.4-11.0 [facility] T4 freeOrdered By: Pete Payne on 10-03-2024 Free T4 [Mass/Vol] 1.20 ng/dL 0.76-1.46 [facility] TSH DL <= 0.005 mIU/L QnOrde red By: Pete Payne on 10-03-2024 Thyroid Stimulating Hormone (TSH) 4.480 uIU/mL High 0.300-4.200 [facility] TSH Qn 4.480 uIU/mL High 0.300-4.200 [facility] Absolute lymphocyte countOrd ered By: Nithinsudarshan Pfeifferriteshyulia on 08-23-2024 Lymphocytes Auto (Unsp spec) [#/Vol] 2.44 10*3/uL 0.83-4.51 [facility] Absolute neutrophil countOrd ered By: Celestegeena Pfeifferriteshyulia on 08-23-2024 Neutrophils (Bld) [#/Vol] 5.4 10*3/uL 2.0-7.7 [facility] Albumin to globulin ratioOrd ered By: Pete Kentrellriteshyulia on 08-23-2024 Albumin/Globulin [Mass ratio] 0.7 {ratio} Low 0.9-2.4 [facility] Automated lymphocyte count a s percentage of total leukocytesOrdered By: Pete Payne on 08-23-2024 Lymphocytes/100 WBC Auto (Unsp spec) 27.5 % 19-41 [facility] Basophil percentageOrdered B y: Pete Payne on 08-23-2024 Basophils/100 WBC (Bld) 0.6 % 0-1 [facility] Bilirubin, totalOrdered By: Pete Payne on 08-23-2024 Bilirubin [Mass/Vol] 0.90 mg/dL 0.20-1.00 [facility] Comment on above: For patients on eltr ombopag therapy, use of Dimension [place] TBIL is not recommended. Blood urea nitrogen (BUN)/cr eatinine ratioOrdered By: Pete Payne on 08-23-2024 Urea nitrogen/Creatinine [Mass ratio] 19.5 mg/mg 10-20 [facility] Carbon dioxide measurementOr dered By: Pete Payne on 08-23-2024 CO2 [Moles/Vol] 25.0 mmol/L 21.0-32.0 [facility] Chloride measurementOrdered By: Pete Payne on 08-23-2024 Chloride [Moles/Vol] 108 mmol/L High 98-107 [facility] Eosinophil percentageOrdered By: Pete Payne on 08-23-2024 Eosinophils/100 WBC (Bld) 3.4 % 0-5 [facility] Erythrocyte distribution wid th (RBC) [Ratio]Ordered By: Pete Payne on 08-23-2024 Erythrocyte distribution width (RBC) [Entitic vol] 47.5 fL High 35.1-43.9 [facility] Erythrocyte distribution wid th ratioOrdered By: geena Payne on 08-23-2024 Erythrocyte distribution width (RBC) [Ratio] 13.8 % 11.6-14.6 [facility] Erythrocyte distribution wid th standard deviationOrdered By: alexisalbanysudarshan Payne on 08-23-2024 Erythrocyte distribution width (RBC) [Ratio] 47.5 fl High 35.1-43.9 [facility] Estimated glomerular filtrat ion rate (GFR) AmericanOrdered By: Pete Payne on 08-23-2024 Estimated GFR (MDRD) Amer 69 mL/min >60 [facility] Comment on above: GFR Calc Glomerular filtration rate ( GFR) estimationOrdered By: Pete Payne on 08-23-2024 Estimated GFR (MDRD) Non-Af Amer 57 mL/min Low >60 [facility] Comment on above: Non- GFR Calc GFR/1.73 sq M.predicted among non-blacks MDRD (S/P/Bld) [Vol rate/Area] 57 mL/min/{1.73_m2} Low >60 [facility] Comment on above: Non- GFR Calc Glucose measurementOrdered B y: Pete Payne on 08-23-2024 Glucose [Mass/Vol] 122 mg/dL High 74-106 [facility] Comment on above: Fasting Glucose resu lt from 100 to 125 mg/dL suggests IMPAIRED HOMEOSTASIS per A.D.A. criteria. Hematocrit Auto (Bld) [Volum e fraction]Ordered By: ePte Payne on 08-23-2024 Hematocrit (Bld) [Volume fraction] 34.2 % Low 37-47 [facility] Hemoglobin A1c percentageOrd ered By: Pete Payne on 08-23-2024 HbA1c (Bld) [Mass fraction] 6.5 % High 3.8-5.6 [facility] Comment on above: Normal < 5.7 % Predi abetic 5.7 - 6.4 % Diabetic >or= 6.5 % Please note range changes. Hemoglobin measurementOrdere d By: Pete Payne on 08-23-2024 Hemoglobin (Bld) [Mass/Vol] 11.0 g/dL Low 12.0-15.0 [facility] Immature granulocytes/100 WB C Auto (Bld)Ordered By: Pete Payne on 08-23-2024 Immature granulocytes/100 WBC (Bld) 0.600 % 0.0-0.9 [facility] Comment on above: IG% - Immature Granu locytes (promyelocytes, myelocytes and metamyelocytes) > 1% indicates that a LEFT SHIFT is Present. Laboratory - Chemistry and C hemistry - challengeOrdered By: Pete Payne on 08-23-2024 AST [Catalytic activity/Vol] 12 U/L Low 15-37 [facility] Lymphocytes Auto (Unsp spec) [#/Vol]Ordered By: Pete Payne on 08-23-2024 Lymphocytes (Bld) [#/Vol] 2.44 10*3/uL 0.83-4.51 [facility] Lymphocytes/100 WBC Auto (Un sp spec)Ordered By: Pete Payne on 08-23-2024 Lymphocytes/100 WBC (Bld) 27.5 % 19-41 [facility] MCV (mean corpuscular volume ) determinationOrdered By: Pete Payne on 08-23-2024 MCV (RBC) [Entitic vol] 93.4 fL 81-99 [facility] Mean corpuscular hemoglobin (MCH) determinationOrdered By: Pete Payne on 08-23-2024 MCH (RBC) [Entitic mass] 30.1 pg 27.0-32.0 [facility] Mean corpuscular hemoglobin concentration (MCHC) determinationOrdered By: Pete Payne on 08-23-2024 MCHC (RBC) [Mass/Vol] 32.2 g/dL 32-36 [facility] Mean platelet volume determi nationOrdered By: Pete Payne on 08-23-2024 Platelet mean volume (Bld) [Entitic vol] 10.2 fL 6.2-12.0 [facility] Monocyte percentageOrdered B y: Pete Payne on 08-23-2024 Monocytes/100 WBC (Bld) 7.2 % 0-10 [facility] Neutrophil percentageOrdered By: Pete Payne on 08-23-2024 Neutrophils/100 WBC (Bld) 60.7 % 47-70 [facility] Nucleated red blood cell per centageOrdered By: Pete Payne on 08-23-2024 Nucleated RBC/100 WBC (Bld) [Ratio] 0 % 0-5 [facility] Platelet countOrdered By: Celeste Payne on 08-23-2024 Platelets (Bld) [#/Vol] 352 10*3/uL 150-450 [facility] Potassium measurementOrdered By: Pete Payne on 08-23-2024 Potassium [Moles/Vol] 4.0 mmol/L 3.5-5.1 [facility] RBC Auto (Bld) [#/Vol]Ordere d By: Pete Payne on 08-23-2024 RBC (Bld) [#/Vol] 3.66 10*6/uL Low 4.2-5.4 [facility] Serum anion gap measurementO rdered By: Pete Payne on 08-23-2024 Anion gap [Moles/Vol] 8 mmol/L 5-15 [facility] Serum globulin measurementOr dered By: Pete Payne on 08-23-2024 Globulin (S) [Mass/Vol] 3.5 g/dL 2.2-4.2 [facility] Serum or plasma alanine castro otransferase (ALT) measurementOrdered By: Pete Payne on 08-23-2024 ALT [Catalytic activity/Vol] 12 U/L Low 13-56 [facility] Serum or plasma albumin karri urement (mass/volume)Ordered By: Pete Payne on 08-23-2024 Albumin [Mass/Vol] 2.6 g/dL Low 3.2-5.0 [facility] Serum or plasma alkaline corky sphatase measurementOrdered By: Pete Payne on 08-23-2024 ALP [Catalytic activity/Vol] 54 U/L 45-117 [facility] Serum or plasma calcium karri urement (mass/volume)Ordered By: Celestealexiskeishasudarshan Pfeifferriteshyulia on 08-23-2024 Calcium [Mass/Vol] 8.5 mg/dL 8.5-10.1 [facility] Serum or plasma creatinine m easurement (mass/volume)Ordered By: Pete Payne on 08-23-2024 Creatinine [Mass/Vol] 0.98 mg/dL 0.55-1.02 [facility] Comment on above: The validity of the calculated GFR & GFRAA in patients over 70 years has not been determined. Clinical correlation is essential. Serum or plasma thyroid stim ulating hormone (TSH) measurement (units/volume)Ordered By: Celestealexiskeishasudarshan Payne on 08-23-2024 TSH Qn 3.840 uIU/mL High 0.358-3.740 [facility] Serum or plasma urea nitroge n measurement (mass/volume)Ordered By: Pete Payne on 08-23-2024 Urea nitrogen [Mass/Vol] 19 mg/dL High 7-18 [facility] Sodium levelOrdered By: Celestealexis anne Kentrellriteshyulia on 08-23-2024 Sodium [Moles/Vol] 141 mmol/L 136-145 [facility] TSH QnOrdered By: Pete Payne on 08-23-2024 Thyroid Stimulating Hormone (TSH) 3.840 uIU/mL High 0.358-3.740 [facility] Total proteinOrdered By: Ramsey marquezsudarshan Payne on 08-23-2024 Protein [Mass/Vol] 6.1 g/dL Low 6.4-8.2 [facility] White blood cell (WBC) count Ordered By: Celestealexiskeishasudarshan Pfeifferriteshyulia on 08-23-2024 WBC (Bld) [#/Vol] 8.9 10*3/uL 4.4-11.0 [facility] TSH QnOrdered By: Saturninokeishasudarshan Payne on 07-11-2024 Thyroid Stimulating Hormone (TSH) 3.030 uIU/mL 0.358-3.740 [facility] Absolute lymphocyte countOrd ered By: Pete Payne on 08-25-2023 Lymphocytes Auto (Unsp spec) [#/Vol] 2.56 10*3/uL 0.83-4.51 [facility] Automated lymphocyte count a s percentage of total leukocytesOrdered By: Pete Payne on 08-25-2023 Lymphocytes/100 WBC Auto (Unsp spec) 28.1 % 19-41 [facility] Basophil percentageOrdered B y: Pete Payne on 08-25-2023 Basophils/100 WBC (Bld) 1.0 % 0-1 [facility] Bilirubin [Mass/Vol] 1.00 mg/dL 0.20-1.00 [facility] Comment on above: For patients on eltr ombopag therapy, use of [place] TBIL is not recommended. Chloride [Moles/Vol] 107 mmol/L 98-107 [facility] Eosinophils/100 WBC (Bld) 3.4 % 0-5 [facility] Glucose [Mass/Vol] 143 mg/dL 74-106 [facility] Comment on above: Fasting Glucose resu lt greater than or equal to 126 mg/dL suggests DIABETES MELLITUS per A.D.A. criteria. Hemoglobin (Bld) [Mass/Vol] 11.1 g/dL 12.0-15.0 [facility] Monocytes/100 WBC (Bld) 6.9 % 0-10 [facility] Neutrophils (Bld) [#/Vol] 5.5 10*3/uL 2.0-7.7 [facility] Neutrophils/100 WBC (Bld) 60.3 % 47-70 [facility] Potassium [Moles/Vol] 4.1 mmol/L 3.5-5.1 [facility] Protein [Mass/Vol] 6.8 g/dL 6.4-8.2 [facility] Sodium [Moles/Vol] 140 mmol/L 136-145 [facility] WBC (Bld) [#/Vol] 9.1 10*3/uL 4.4-11.0 [facility] Determination of erythrocyte mean corpuscular volume (MCV)Ordered By: Pete Payne on 08-25-2023 MCV (RBC) [Entitic vol] 93.5 fL 81-99 [facility] Erythrocyte distribution wid th ratioOrdered By: Pete Payne on 08-25-2023 Erythrocyte distribution width (RBC) [Ratio] 12.9 % 11.6-14.6 [facility] Erythrocyte distribution wid th standard deviationOrdered By: [facility] on 08-25-2023 Erythrocyte distribution width (RBC) [Entitic vol] 44.3 fL 35.1-43.9 [facility] Hematocrit Auto (Bld) [Volum e fraction]Ordered By: [facility] on 08-25-2023 Hematocrit (Bld) [Volume fraction] 34.5 % 37-47 [facility] Immature granulocytes/100 WB C Auto (Bld)Ordered By: [facility] on 08-25-2023 Immature granulocytes/100 WBC (Bld) 0.300 % 0.0-0.9 [facility] Comment on above: IG% - Immature Granu locytes (promyelocytes, myelocytes and metamyelocytes) > 1% indicates that a LEFT SHIFT is Present. Laboratory - Chemistry and C hemistry - challengeOrdered By: Saturninoalbanysudarshan Payne on 08-25-2023 Albumin/Globulin [Mass ratio] 0.8 {ratio} 0.9-2.4 [facility] ALP [Catalytic activity/Vol] 62 U/L 45-117 [facility] ALT [Catalytic activity/Vol] 14 U/L 13-56 [facility] CO2 [Moles/Vol] 25.0 mmol/L 21.0-32.0 [facility] Globulin (S) [Mass/Vol] 3.8 g/dL 2.2-4.2 [facility] Urea nitrogen/Creatinine [Mass ratio] 20.9 mg/mg 10-20 [facility] Laboratory - Hematology and Cell countsOrdered By: Pete Payne on 08-25-2023 MCH (RBC) [Entitic mass] 30.1 pg 27.0-32.0 [facility] MCHC (RBC) [Mass/Vol] 32.2 g/dL 32-36 [facility] Nucleated RBC/100 WBC (Bld) [Ratio] 0 % 0-5 [facility] Platelet mean volume (Bld) [Entitic vol] 10.2 fL 6.2-12.0 [facility] Platelets (Bld) [#/Vol] 373 10*3/uL 150-450 [facility] No Panel InformationOrdered By: Pete Payne on 08-25-2023 Estimated GFR (MDRD) Amer 71 mL/min >60 [facility] Comment on above: GFR Calc Estimated GFR (MDRD) Non-Af Amer 59 mL/min >60 [facility] Comment on above: Non- GFR Calc RBC Auto (Bld) [#/Vol]Ordere d By: Pete Payne on 08-25-2023 RBC (Bld) [#/Vol] 3.69 10*6/uL 4.2-5.4 [facility] Serum or plasma calcium karri urement (mass/volume)Ordered By: Pete Payne on 08-25-2023 Calcium [Mass/Vol] 9.4 mg/dL 8.5-10.1 [facility] Serum or plasma creatinine m easurement (mass/volume)Ordered By: Pete Payne on 08-25-2023 Creatinine [Mass/Vol] 0.96 mg/dL 0.55-1.02 [facility] Comment on above: The validity of the calculated GFR & GFRAA in patients over 70 years has not been determined. Clinical correlation is essential. Serum or plasma urea nitroge n measurement (mass/volume)Ordered By: Pete Payne on 08-25-2023 Urea nitrogen [Mass/Vol] 20 mg/dL 7-18 [facility] Thin prep Papanicolaou smear with manual screeningOrdered By: Pete Payne on 08-25-2023 Thin prep Papanicolaou smear with manual screening 3.0 g/dL 3.2-5.0 [facility] Thin prep Papanicolaou smear with manual screening 13 U/L 15-37 [facility] Thin prep Papanicolaou smear with manual screening 8 5-15 [facility] Whole blood hemoglobin A1c/t otal hemoglobin ratio (mass fraction)Ordered By: Pete Payne on 08-25-2023 HbA1c (Bld) [Mass fraction] 6.9 % 3.8-5.6 [facility] Comment on above: Normal < 5.7 % Predi abetic 5.7 - 6.4 % Diabetic >or= 6.5 % Please note range changes. Laboratory - Chemistry and C hemistry - challengeOrdered By: Pete Payne on 03-16-2023 Free T4 [Mass/Vol] 1.07 ng/dL 0.76-1.46 [facility] No Panel InformationOrdered By: alexisalbanysudarshan Payne on 03-16-2023 Thyroid Stimulating Hormone (TSH) 4.03 uIU/mL 0.358-3.74 [facility] Total Triiodothyronine 1.24 ng/mL 0.6-1.81 [facility] Absolute lymphocyte countOrd ered By: Saturninoalbanysudarshan Payne on 03-12-2023 Lymphocytes Auto (Unsp spec) [#/Vol] 2.46 10*3/uL 0.83-4.51 [facility] Basophil percentageOrdered B y: Pete Payne on 03-12-2023 Basophils/100 WBC (Bld) 1.1 % 0-1 [facility] Bilirubin [Mass/Vol] 0.70 mg/dL 0.20-1.00 [facility] Comment on above: For patients on eltr ombopag therapy, use of [place] TBIL is not recommended. Chloride [Moles/Vol] 106 mmol/L 98-107 [facility] Cholesterol [Mass/Vol] 106 mg/dL <200 [facility] Comment on above: <200 mg/dL Desirable 200-240 mg/dL Borderline >240 mg/dL High Risk Eosinophils/100 WBC (Bld) 2.8 % 0-5 [facility] Glucose [Mass/Vol] 151 mg/dL 74-106 [facility] Comment on above: Fasting Glucose resu lt greater than or equal to 126 mg/dL suggests DIABETES MELLITUS per A.D.A. criteria. Neutrophils (Bld) [#/Vol] 4.8 10*3/uL 2.0-7.7 [facility] Neutrophils/100 WBC (Bld) 57.0 % 47-70 [facility] Potassium [Moles/Vol] 4.1 mmol/L 3.5-5.1 [facility] Protein [Mass/Vol] 6.3 g/dL 6.4-8.2 [facility] Sodium [Moles/Vol] 138 mmol/L 136-145 [facility] Triglyceride [Mass/Vol] 135 mg/dL <199 [facility] Comment on above: The drugs N-Acetylcy steine and Metamizole may falsely depress this assay.Serum Triglycerides Reference Interval Normal <150 mg/dL Borderline high 150 - 199 mg/dL High 200 - 499 mg/dL Very High > or = 500 mg/dL WBC (Bld) [#/Vol] 8.3 10*3/uL 4.4-11.0 [facility] Blood erythrocytes count (nu mber/volume)Ordered By: Pete Payne on 03-12-2023 RBC (Bld) [#/Vol] 3.59 10*6/uL 4.2-5.4 [facility] Blood hemoglobin measurement (mass/volume)Ordered By: Pete Payne on 03-12-2023 Hemoglobin (Bld) [Mass/Vol] 11.0 g/dL 12.0-15.0 [facility] Blood lymphocytes/100 leukoc ytesOrdered By: Pete Payne on 03-12-2023 Lymphocytes/100 WBC (Bld) 29.5 % 19-41 [facility] Blood monocytes/100 leukocyt esOrdered By: Pete Payne on 03-12-2023 Monocytes/100 WBC (Bld) 9.2 % 0-10 [facility] Blood platelet mean volumeOr dered By: Pete Payne on 03-12-2023 Platelet mean volume (Bld) [Entitic vol] 9.8 fL 6.2-12.0 [facility] Determination of erythrocyte mean corpuscular volume (MCV)Ordered By: Pete Payne on 03-12-2023 MCV (RBC) [Entitic vol] 93.9 fL 81-99 [facility] Hematocrit Auto (Bld) [Volum e fraction]Ordered By: Pete Payne on 03-12-2023 Hematocrit (Bld) [Volume fraction] 33.7 % 37-47 [facility] Laboratory - Chemistry and C hemistry - challengeOrdered By: Pete Payne on 03-12-2023 ALP [Catalytic activity/Vol] 57 U/L 45-117 [facility] ALT [Catalytic activity/Vol] 16 U/L 13-56 [facility] CO2 [Moles/Vol] 25.0 mmol/L 21.0-32.0 [facility] Globulin (S) [Mass/Vol] 3.4 g/dL 2.2-4.2 [facility] Urea nitrogen/Creatinine [Mass ratio] 16.0 mg/mg 10-20 [facility] Laboratory - Hematology and Cell countsOrdered By: Pete Payne on 03-12-2023 Erythrocyte distribution width (RBC) [Entitic vol] 42.9 fL 35.1-43.9 [facility] Erythrocyte distribution width (RBC) [Ratio] 12.4 % 11.6-14.6 [facility] Immature granulocytes/100 WBC (Bld) 0.400 % 0.0-0.9 [facility] Comment on above: IG% - Immature Granu locytes (promyelocytes, myelocytes and metamyelocytes) > 1% indicates that a LEFT SHIFT is Present. MCH (RBC) [Entitic mass] 30.6 pg 27.0-32.0 [facility] Nucleated RBC/100 WBC (Bld) [Ratio] 0 % 0-5 [facility] MCHC Auto (RBC) [Mass/Vol]Or dered By: Pete Payne on 03-12-2023 MCHC (RBC) [Mass/Vol] 32.6 g/dL 32-36 [facility] No Panel InformationOrdered By: Pete Payne on 03-12-2023 Estimated GFR (MDRD) Amer 63 mL/min >60 [facility] Comment on above: GFR Calc Estimated GFR (MDRD) Non-Af Amer 52 mL/min >60 [facility] Comment on above: Non- GFR Calc Thyroid Stimulating Hormone (TSH) 4.75 uIU/mL 0.358-3.74 [facility] Vitamin D 25-Hydroxy 107.1 ng/mL [facility] Comment on above: Vitamin D 25(OH) [...] 03-12-2023 Platelets (Bld) [#/Vol] 361 10*3/uL 150-450 [facility] Serum or plasma albumin karri urement (mass/volume)Ordered By: Pete Payne on 03-12-2023 Albumin [Mass/Vol] 2.9 g/dL 3.2-5.0 [facility] Serum or plasma albumin/glob ulin mass ratioOrdered By: Pete Payne on 03-12-2023 Albumin/Globulin [Mass ratio] 0.9 {ratio} 0.9-2.4 [facility] Serum or plasma calcium karri urement (mass/volume)Ordered By: Pete Payne on 03-12-2023 Calcium [Mass/Vol] 9.0 mg/dL 8.5-10.1 [facility] Serum or plasma cholesterol in HDL measurement (mass/volume)Ordered By: Pete Payne on 03-12-2023 Cholesterol in HDL [Mass/Vol] 46 mg/dL >40 [facility] Comment on above: The drugs N-Acetylcy steine and Metamizole may falsely depress this assay. Reference Range HDL <40 mg/dL Low HDL Cholesterol HDL >or= 60 mg/dL High HDL Cholesterol Serum or plasma cholesterol in VLDL measurement (mass/volume)Ordered By: Pete Payne on 03-12-2023 Cholesterol in VLDL [Mass/Vol] 27 mg/dL 5-40 [facility] Serum or plasma creatinine m easurement (mass/volume)Ordered By: Pete Payne on 03-12-2023 Creatinine [Mass/Vol] 1.06 mg/dL 0.55-1.02 [facility] Comment on above: The validity of the calculated GFR & GFRAA in patients over 70 years has not been determined. Clinical correlation is essential. Serum or plasma low density lipoprotein (LDL) cholesterol measurement (mass/volume)Ordered By: Pete Payne on 03-12-2023 Cholesterol in LDL [Mass/Vol] 33 mg/dL 0-130 [facility] Serum or plasma urea nitroge n measurement (mass/volume)Ordered By: Pete Payne on 03-12-2023 Urea nitrogen [Mass/Vol] 17 mg/dL 7-18 [facility] Thin prep Papanicolaou smear with manual screeningOrdered By: Pete Payne on 03-12-2023 Thin prep Papanicolaou smear with manual screening 13 U/L 15-37 [facility] Thin prep Papanicolaou smear with manual screening 7 5-15 [facility] Whole blood hemoglobin A1c/t otal hemoglobin ratio (mass fraction)Ordered By: Pete Payne on 03-12-2023 HbA1c (Bld) [Mass fraction] 7.2 % 3.8-5.6 [facility] Comment on above: Normal < 5.7 % Predi abetic 5.7 - 6.4 % Diabetic >or= 6.5 % Please note range changes. Absolute lymphocyte countOrd ered By: Pete Payne on 12-01-2022 Lymphocytes Auto (Unsp spec) [#/Vol] 2.66 10*3/uL 0.83-4.51 [facility] Basophil percentageOrdered B y: Pete Payne on 12-01-2022 Basophils/100 WBC (Bld) 1.0 % 0-1 [facility] Bilirubin [Mass/Vol] 1.00 mg/dL 0.20-1.00 [facility] Comment on above: For patients on eltr ombopag therapy, use of Dimension [place] TBIL is not recommended. Chloride [Moles/Vol] 100 mmol/L 98-107 [facility] Eosinophils/100 WBC (Bld) 2.3 % 0-5 [facility] Glucose [Mass/Vol] 152 mg/dL 74-106 [facility] Comment on above: Fasting Glucose resu lt greater than or equal to 126 mg/dL suggests DIABETES MELLITUS per A.D.A. criteria. Neutrophils (Bld) [#/Vol] 5.8 10*3/uL 2.0-7.7 [facility] Neutrophils/100 WBC (Bld) 60.2 % 47-70 [facility] Potassium [Moles/Vol] 4.3 mmol/L 3.5-5.1 [facility] Protein [Mass/Vol] 6.1 g/dL 6.4-8.2 [facility] Sodium [Moles/Vol] 138 mmol/L 136-145 [facility] WBC (Bld) [#/Vol] 9.7 10*3/uL 4.4-11.0 [facility] Blood erythrocytes count (nu mber/volume)Ordered By: Pete Payne on 12-01-2022 RBC (Bld) [#/Vol] 3.46 10*6/uL 4.2-5.4 [facility] Blood hemoglobin measurement (mass/volume)Ordered By: Pete Payne on 12-01-2022 Hemoglobin (Bld) [Mass/Vol] 10.8 g/dL 12.0-15.0 [facility] Blood lymphocytes/100 leukoc ytesOrdered By: Pete Payne on 12-01-2022 Lymphocytes/100 WBC (Bld) 27.5 % 19-41 [facility] Blood monocytes/100 leukocyt esOrdered By: Pete Payne on 12-01-2022 Monocytes/100 WBC (Bld) 8.4 % 0-10 [facility] Blood platelet mean volumeOr dered By: Pete Payne on 12-01-2022 Platelet mean volume (Bld) [Entitic vol] 9.9 fL 6.2-12.0 [facility] Determination of erythrocyte mean corpuscular volume (MCV)Ordered By: Pete Payne on 12-01-2022 MCV (RBC) [Entitic vol] 97.1 fL 81-99 [facility] Hematocrit Auto (Bld) [Volum e fraction]Ordered By: [facility] on 12-01-2022 Hematocrit (Bld) [Volume fraction] 33.6 % 37-47 [facility] Laboratory - Chemistry and C hemistry - challengeOrdered By: [facility] Pfeifferyulia on 12-01-2022 ALP [Catalytic activity/Vol] 60 U/L 45-117 [facility] ALT [Catalytic activity/Vol] 22 U/L 13-56 [facility] CO2 [Moles/Vol] 29.0 mmol/L 21.0-32.0 [facility] Globulin (S) [Mass/Vol] 3.3 g/dL 2.2-4.2 [facility] Urea nitrogen/Creatinine [Mass ratio] 16.1 mg/mg 10-20 [facility] Laboratory - Hematology and Cell countsOrdered By: alexisalbanysudarshan Payne on 12-01-2022 Erythrocyte distribution width (RBC) [Entitic vol] 44.6 fL 35.1-43.9 [facility] Erythrocyte distribution width (RBC) [Ratio] 12.5 % 11.6-14.6 [facility] Immature granulocytes/100 WBC (Bld) 0.600 % 0.0-0.9 [facility] Comment on above: IG% - Immature Granu locytes (promyelocytes, myelocytes and metamyelocytes) > 1% indicates that a LEFT SHIFT is Present. MCH (RBC) [Entitic mass] 31.2 pg 27.0-32.0 [facility] Nucleated RBC/100 WBC (Bld) [Ratio] 0 % 0-5 [facility] MCHC Auto (RBC) [Mass/Vol]Or dered By: Saturninoalbanysudarshan Payne on 12-01-2022 MCHC (RBC) [Mass/Vol] 32.1 g/dL 32-36 [facility] No Panel InformationOrdered By: alexisalbanysudarshan Payne on 12-01-2022 Estimated GFR (MDRD) Amer 59 mL/min >60 [facility] Comment on above: GFR Calc Estimated GFR (MDRD) Non-Af Amer 49 mL/min >60 [facility] Comment on above: Non- GFR Calc Platelets bldOrdered By: Ramsey Payne on 12-01-2022 Platelets (Bld) [#/Vol] 517 10*3/uL 150-450 [facility] Serum or plasma albumin karri urement (mass/volume)Ordered By: Pete Payne on 12-01-2022 Albumin [Mass/Vol] 2.8 g/dL 3.2-5.0 [facility] Serum or plasma albumin/glob ulin mass ratioOrdered By: Pete Payne on 12-01-2022 Albumin/Globulin [Mass ratio] 0.8 {ratio} 0.9-2.4 [facility] Serum or plasma calcium karri urement (mass/volume)Ordered By: Pete Payne on 12-01-2022 Calcium [Mass/Vol] 9.0 mg/dL 8.5-10.1 [facility] Serum or plasma creatinine m easurement (mass/volume)Ordered By: Pete Payne on 12-01-2022 Creatinine [Mass/Vol] 1.12 mg/dL 0.55-1.02 [facility] Comment on above: The validity of the calculated GFR & GFRAA in patients over 70 years has not been determined. Clinical correlation is essential. Serum or plasma urea nitroge n measurement (mass/volume)Ordered By: Pete Payne on 12-01-2022 Urea nitrogen [Mass/Vol] 18 mg/dL 7-18 [facility] Thin prep Papanicolaou smear with manual screeningOrdered By: Pete Payne on 12-01-2022 Thin prep Papanicolaou smear with manual screening 15 U/L 15-37 [facility] Thin prep Papanicolaou smear with manual screening 9 5-15 [facility] Glucose Glucometer (BldC) [M ass/Vol]Ordered By: Dr. Crooks on 11-29-2022 Glucose [Mass/Vol] 95 mg/dL 74-106 [facility] Comment on above: MANAGEMENT OF PATIEN T CARE PER NURSING PROTOCOL Absolute lymphocyte countOrd ered By: Dr. Crooks on 11-28-2022 Lymphocytes Auto (Unsp spec) [#/Vol] 2.74 10*3/uL 0.83-4.51 [facility] Basophil percentageOrdered B y: Dr. Crooks on 11-28-2022 Basophils/100 WBC (Bld) 0.9 % 0-1 [facility] Chloride [Moles/Vol] 104 mmol/L 98-107 [facility] Eosinophils/100 WBC (Bld) 2.2 % 0-5 [facility] Glucose [Mass/Vol] 146 mg/dL 74-106 [facility] Comment on above: Fasting Glucose resu lt greater than or equal to 126 mg/dL suggests DIABETES MELLITUS per A.D.A. criteria. Neutrophils (Bld) [#/Vol] 7.4 10*3/uL 2.0-7.7 [facility] Neutrophils/100 WBC (Bld) 65.0 % 47-70 [facility] Potassium [Moles/Vol] 4.2 mmol/L 3.5-5.1 [facility] Sodium [Moles/Vol] 137 mmol/L 136-145 [facility] WBC (Bld) [#/Vol] 11.4 10*3/uL 4.4-11.0 [facility] Blood erythrocytes count (nu mber/volume)Ordered By: Dr. Crooks on 11-28-2022 RBC (Bld) [#/Vol] 3.62 10*6/uL 4.2-5.4 [facility] Blood hemoglobin measurement (mass/volume)Ordered By: Dr. Crooks on 11-28-2022 Hemoglobin (Bld) [Mass/Vol] 11.2 g/dL 12.0-15.0 [facility] Blood lymphocytes/100 leukoc ytesOrdered By: Dr. Crooks on 11-28-2022 Lymphocytes/100 WBC (Bld) 24.1 % 19-41 [facility] Blood monocytes/100 leukocyt esOrdered By: Dr. Crooks on 11-28-2022 Monocytes/100 WBC (Bld) 7.2 % 0-10 [facility] Blood platelet mean volumeOr dered By: Dr. Crooks on 11-28-2022 Platelet mean volume (Bld) [Entitic vol] 9.3 fL 6.2-12.0 [facility] Determination of erythrocyte mean corpuscular volume (MCV)Ordered By: Dr. Crooks on 11-28-2022 MCV (RBC) [Entitic vol] 96.4 fL 81-99 [facility] Glucose Glucometer (BldC) [M ass/Vol]Ordered By: Dr. Crooks on 11-28-2022 Glucose [Mass/Vol] 146 mg/dL 74-106 [facility] Comment on above: MANAGEMENT OF PATIEN T CARE PER NURSING PROTOCOL Hematocrit Auto (Bld) [Volum e fraction]Ordered By: Dr. Crooks on 11-28-2022 Hematocrit (Bld) [Volume fraction] 34.9 % 37-47 [facility] Laboratory - Chemistry and C hemistry - challengeOrdered By: Dr. Crooks on 11-28-2022 CO2 [Moles/Vol] 28.0 mmol/L 21.0-32.0 [facility] Urea nitrogen/Creatinine [Mass ratio] 18.2 mg/mg 10-20 [facility] Laboratory - Hematology and Cell countsOrdered By: Dr. Crooks on 11-28-2022 Erythrocyte distribution width (RBC) [Entitic vol] 43.3 fL 35.1-43.9 [facility] Erythrocyte distribution width (RBC) [Ratio] 12.4 % 11.6-14.6 [facility] Immature granulocytes/100 WBC (Bld) 0.600 % 0.0-0.9 [facility] Comment on above: IG% - Immature Granu locytes (promyelocytes, myelocytes and metamyelocytes) > 1% indicates that a LEFT SHIFT is Present. MCH (RBC) [Entitic mass] 30.9 pg 27.0-32.0 [facility] Nucleated RBC/100 WBC (Bld) [Ratio] 0 % 0-5 [facility] MCHC Auto (RBC) [Mass/Vol]Or dered By: Dr. Crooks on 11-28-2022 MCHC (RBC) [Mass/Vol] 32.1 g/dL 32-36 [facility] No Panel InformationOrdered By: Dr. Crooks on 11-28-2022 Estimated Creatinine Clearance Calc 37.22 ml/min [facility] Estimated GFR (MDRD) Amer 73 mL/min >60 [facility] Comment on above: GFR Calc Estimated GFR (MDRD) Non-Af Amer 61 mL/min >60 [facility] Comment on above: Non- GFR Calc Platelets bldOrdered By: Dr. Crooks on 11-28-2022 Platelets (Bld) [#/Vol] 445 10*3/uL 150-450 [facility] Serum or plasma calcium karri urement (mass/volume)Ordered By: Dr. Crooks on 11-28-2022 Calcium [Mass/Vol] 8.9 mg/dL 8.5-10.1 [facility] Serum or plasma creatinine m easurement (mass/volume)Ordered By: Dr. Crooks on 11-28-2022 Creatinine [Mass/Vol] 0.93 mg/dL 0.55-1.02 [facility] Comment on above: The validity of the calculated GFR & GFRAA in patients over 70 years has not been determined. Clinical correlation is essential. Serum or plasma urea nitroge n measurement (mass/volume)Ordered By: Dr. Crooks on 11-28-2022 Urea nitrogen [Mass/Vol] 17 mg/dL 7-18 [facility] Thin prep Papanicolaou smear with manual screeningOrdered By: Dr. Crooks on 11-28-2022 Thin prep Papanicolaou smear with manual screening 5 5-15 [facility] COVID-19 virus antigen assay Ordered By: Sylvester Crooks on 11-16-2022 SARS-CoV-2 (COVID-19) Ag IA.rapid Ql (Resp) [facility] COVID-19 virus antigen assay Ordered By: Dr. Crooks on 11-16-2022 SARS-CoV-2 (COVID-19) Ag IA.rapid Ql (Resp) [facility] Culture, urineOrdered By: Dr Néstor Crooks on 11-16-2022 Bacteria identified Cx Nom (U) Escherichia coli [facility] Bacteria identified Cx Nom (U) Klebsiella pneumoniae sp pneum [facility] Basophil percentageOrdered B y: Dr. Crooks on 11-14-2022 Basophil percentage 10-25 SEEN /hpf 0-5 [facility] Bilirubin Test strip Ql (U)O rdered By: Dr. Crooks on 11-14-2022 Bilirubin Ql (U) Negative Negative [facility] Culture, urineOrdered By: Raffi Crooks on 11-14-2022 Bacteria identified Cx Nom (U) Escherichia coli [facility] Bacteria identified Cx Nom (U) Klebsiella pneumoniae sp pneum [facility] Ketones Test strip Ql (U)Ord ered By: Dr. Crooks on 11-14-2022 Ketones Ql (U) Negative Negative [facility] Mucus LM Ql (Urine sed)Order ed By: Dr. Crooks on 11-14-2022 Mucus Ql (Urine sed) 0 SEEN /hpf [facility] Nitrite Test strip Ql (U)Ord ered By: Dr. Crooks on 11-14-2022 Nitrite Ql (U) Negative Negative [facility] No Panel InformationOrdered By: Dr. Crooks on 11-14-2022 Urine Transitional Epithelial Cells 0-5 SEEN /hpf 0-5 [facility] Protein Test strip Ql (U)Ord ered By: Dr. Crooks on 11-14-2022 Protein Ql (U) Negative Negative [facility] Squamous epithelial cells de tection in urine sediment by light microscopyOrdered By: Dr. Crooks on 11-14-2022 Epithelial cells.squamous LM Ql (Urine sed) 0-5 SEEN /hpf 5-10 [facility] Urine blood detectionOrdered By: Dr. Crooks on 11-14-2022 RBC Ql (U) 10 /ul Negative [facility] RBC Ql (U) 0-5 SEEN /hpf 0-5 [facility] Urine clarityOrdered By: Dr. Crooks on 11-14-2022 Clarity (U) Sl. Cloudy Clear [facility] Urine color determinationOrd ered By: Dr. Crooks on 11-14-2022 Color (U) Yellow Yellow [facility] Urine glucose detectionOrder ed By: Dr. Crooks on 11-14-2022 Glucose Ql (U) 100 mg/dl Normal [facility] Urine leukocyte esterase det ection by dipstickOrdered By: Dr. Crooks on 11-14-2022 Leukocyte esterase Test strip Ql (U) 100 /ul Negative [facility] Urine pHOrdered By: Dr. Crooks on 11-14-2022 pH (U) 6.0 [pH] 5.0 - 8.0 [facility] Urine sediment bacteria coun t by microscopy (number/high power field)Ordered By: Dr. Crooks on 11-14-2022 Bacteria LM.HPF (Urine sed) [#/Area] 1 /[HPF] None Seen [facility] Urine specific gravity measu rementOrdered By: Dr. Crooks on 11-14-2022 Specific gravity (U) [Rel density] 1.010 1.002-1.030 [facility] Urobilinogen Auto test strip Ql (U)Ordered By: Dr. Crooks on 11-14-2022 Urobilinogen Ql (U) Normal mg/dl Normal [facility] Absolute lymphocyte countOrd ered By: Dr. Betancur on 11-13-2022 Lymphocytes Auto (Unsp spec) [#/Vol] 3.26 10*3/uL 0.83-4.51 [facility] Basophil percentageOrdered B y: Dr. Betancur on 11-13-2022 Basophils/100 WBC (Bld) 0.7 % 0-1 [facility] Bilirubin [Mass/Vol] 1.00 mg/dL 0.20-1.00 [facility] Comment on above: For patients on eltr ombopag therapy, use of Dimension [place] TBIL is not recommended. Chloride [Moles/Vol] 106 mmol/L 98-107 [facility] Eosinophils/100 WBC (Bld) 1.7 % 0-5 [facility] Glucose [Mass/Vol] 150 mg/dL 74-106 [facility] Comment on above: Fasting Glucose resu lt greater than or equal to 126 mg/dL suggests DIABETES MELLITUS per A.D.A. criteria. Neutrophils (Bld) [#/Vol] 8.7 10*3/uL 2.0-7.7 [facility] Neutrophils/100 WBC (Bld) 66.3 % 47-70 [facility] Potassium [Moles/Vol] 3.9 mmol/L 3.5-5.1 [facility] Protein [Mass/Vol] 5.6 g/dL 6.4-8.2 [facility] Sodium [Moles/Vol] 132 mmol/L 136-145 [facility] WBC (Bld) [#/Vol] 13.2 10*3/uL 4.4-11.0 [facility] Blood erythrocytes count (nu mber/volume)Ordered By: Dr. Betancur on 11-13-2022 RBC (Bld) [#/Vol] 3.32 10*6/uL 4.2-5.4 [facility] Blood hemoglobin measurement (mass/volume)Ordered By: Dr. Betancur on 11-13-2022 Hemoglobin (Bld) [Mass/Vol] 10.5 g/dL 12.0-15.0 [facility] Blood lymphocytes/100 leukoc ytesOrdered By: Dr. Betancur on 11-13-2022 Lymphocytes/100 WBC (Bld) 24.7 % 19-41 [facility] Blood monocytes/100 leukocyt esOrdered By: Dr. Betancur on 11-13-2022 Monocytes/100 WBC (Bld) 6.2 % 0-10 [facility] Blood platelet mean volumeOr dered By: Dr. Betancur on 11-13-2022 Platelet mean volume (Bld) [Entitic vol] 8.6 fL 6.2-12.0 [facility] COVID-19 virus antigen assay Ordered By: Bernice Betancur on 11-13-2022 SARS-CoV-2 (COVID-19) Ag IA.rapid Ql (Resp) [facility] COVID-19 virus antigen assay Ordered By: Dr. Betancur on 11-13-2022 SARS-CoV-2 (COVID-19) Ag IA.rapid Ql (Resp) [facility] Determination of erythrocyte mean corpuscular volume (MCV)Ordered By: Dr. Betancur on 11-13-2022 MCV (RBC) [Entitic vol] 92.5 fL 81-99 [facility] Direct bilirubinOrdered By: Dr. Betancur on 11-13-2022 Bilirubin.direct [Mass/Vol] 0.34 mg/dL 0.00-0.30 [facility] Hematocrit Auto (Bld) [Volum e fraction]Ordered By: Dr. Betancur on 11-13-2022 Hematocrit (Bld) [Volume fraction] 30.7 % 37-47 [facility] Iron measurement (mass/mass) Ordered By: Dr. Betancur on 11-13-2022 Iron (Unsp spec) [Mass/Mass] 48 ug/dL 50-170 [facility] Laboratory - Chemistry and C hemistry - challengeOrdered By: Dr. Betancur on 11-13-2022 ALP [Catalytic activity/Vol] 35 U/L 45-117 [facility] ALT [Catalytic activity/Vol] 19 U/L 13-56 [facility] CO2 [Moles/Vol] 23.0 mmol/L 21.0-32.0 [facility] Cobalamin (Vitamin B12) [Mass/Vol] 583 pg/mL 211-911 [facility] Free T4 [Mass/Vol] 1.48 ng/dL 0.76-1.46 [facility] Globulin (S) [Mass/Vol] 2.8 g/dL 2.2-4.2 [facility] Urea nitrogen/Creatinine [Mass ratio] 17.2 mg/mg 10-20 [facility] Laboratory - Hematology and Cell countsOrdered By: Dr. Betancur on 11-13-2022 Erythrocyte distribution width (RBC) [Entitic vol] 42.5 fL 35.1-43.9 [facility] Erythrocyte distribution width (RBC) [Ratio] 12.7 % 11.6-14.6 [facility] Immature granulocytes/100 WBC (Bld) 0.400 % 0.0-0.9 [facility] Comment on above: IG% - Immature Granu locytes (promyelocytes, myelocytes and metamyelocytes) > 1% indicates that a LEFT SHIFT is Present. MCH (RBC) [Entitic mass] 31.6 pg 27.0-32.0 [facility] Nucleated RBC/100 WBC (Bld) [Ratio] 0 % 0-5 [facility] MCHC Auto (RBC) [Mass/Vol]Or dered By: Dr. Betancur on 11-13-2022 MCHC (RBC) [Mass/Vol] 34.2 g/dL 32-36 [facility] No Panel InformationOrdered By: Dr. Betancur on 11-13-2022 Estimated Creatinine Clearance Calc 35.38 ml/min [facility] Estimated GFR (MDRD) Amer 103 mL/min >60 [facility] Comment on above: GFR Calc Estimated GFR (MDRD) Non-Af Amer 85 mL/min >60 [facility] Comment on above: Non- GFR Calc Thyroid Stimulating Hormone (TSH) 1.14 uIU/mL 0.358-3.74 [facility] Total Iron Binding Capacity 214 ug/dL 250-450 [facility] Platelets bldOrdered By: Dr. Betancur on 11-13-2022 Platelets (Bld) [#/Vol] 370 10*3/uL 150-450 [facility] Serum or plasma albumin karri urement (mass/volume)Ordered By: Dr. Betancur on 11-13-2022 Albumin [Mass/Vol] 2.8 g/dL 3.2-5.0 [facility] Serum or plasma calcium karri urement (mass/volume)Ordered By: Dr. Betancur on 11-13-2022 Calcium [Mass/Vol] 8.3 mg/dL 8.5-10.1 [facility] Serum or plasma creatinine m easurement (mass/volume)Ordered By: Dr. Betancur on 11-13-2022 Creatinine [Mass/Vol] 0.70 mg/dL 0.55-1.02 [facility] Comment on above: The validity of the calculated GFR & GFRAA in patients over 70 years has not been determined. Clinical correlation is essential. Serum or plasma ferritin jolanta surement (mass/volume)Ordered By: Dr. Betancur on 11-13-2022 Ferritin [Mass/Vol] 195 ng/mL 8-252 [facility] Serum or plasma urea nitroge n measurement (mass/volume)Ordered By: Dr. Betancur on 11-13-2022 Urea nitrogen [Mass/Vol] 12 mg/dL 7-18 [facility] Thin prep Papanicolaou smear with manual screeningOrdered By: Dr. Betancur on 11-13-2022 Thin prep Papanicolaou smear with manual screening 16 U/L 15-37 [facility] Thin prep Papanicolaou smear with manual screening 3 5-15 [facility] Glucose Glucometer (BldC) [M ass/Vol]Ordered By: Dr. Brody on 11-12-2022 Glucose [Mass/Vol] 121 mg/dL 74-106 [facility] Comment on above: MANAGEMENT OF PATIEN T CARE PER NURSING PROTOCOL No Panel InformationOrdered By: Dr. Brody on 11-12-2022 Vitamin D 25-Hydroxy 43.8 ng/mL [facility] Comment on above: Vitamin D 25(OH) Sta tus Range Deficiency <20 ng/mL (50nmol/L) Insufficiency 20 - 30 ng/mL (50 - 75 nmol/L) Sufficiency 30 - 100 ng/mL (75 - 250 nmol/L) Toxicity >100 ng/mL (>250 nmol/L) Serum or plasma cortisol jolanta surement (mass/volume)Ordered By: Dr. Brody on 11-12-2022 Cortisol [Mass/Vol] 28.20 ug/dL 3.44-22.45 [facility] Comment on above: Adult (AM) 5.27 - 22 .45 ug/dL Adult (PM) 3.44 - 16.76 ug/dLPlease note revised CORTISOL reference range effective 2019. Whole blood hemoglobin A1c/t otal hemoglobin ratio (mass fraction)Ordered By: Dr. Betancur on 11-12-2022 HbA1c (Bld) [Mass fraction] 7.0 % 3.8-5.6 [facility] Comment on above: Normal < 5.7 % Predi abetic 5.7 - 6.4 % Diabetic >or= 6.5 % Please note range changes. Absolute lymphocyte countOrd ered By: Dr. Ewing on 11-11-2022 Lymphocytes Auto (Unsp spec) [#/Vol] 4.35 10*3/uL 0.83-4.51 [facility] Basophil percentageOrdered B y: Dr. Ewing on 11-11-2022 Basophil percentage 0 SEEN /hpf 0-5 [facility] Ammonia (P) [Moles/Vol] 16.0 umol/L 11-32 [facility] Basophils/100 WBC (Bld) 0.6 % 0-1 [facility] Bilirubin [Mass/Vol] 1.90 mg/dL 0.20-1.00 [facility] Comment on above: For patients on eltr ombopag therapy, use of Dimension [place] TBIL is not recommended. Chloride [Moles/Vol] 91 mmol/L 98-107 [facility] Eosinophils/100 WBC (Bld) 0.9 % 0-5 [facility] Glucose [Mass/Vol] 159 mg/dL 74-106 [facility] Comment on above: Fasting Glucose resu lt greater than or equal to 126 mg/dL suggests DIABETES MELLITUS per A.D.A. criteria. Neutrophils (Bld) [#/Vol] 8.3 10*3/uL 2.0-7.7 [facility] Neutrophils/100 WBC (Bld) 59.4 % 47-70 [facility] Potassium [Moles/Vol] 3.4 mmol/L 3.5-5.1 [facility] Protein [Mass/Vol] 7.4 g/dL 6.4-8.2 [facility] Sodium [Moles/Vol] 127 mmol/L 136-145 [facility] WBC (Bld) [#/Vol] 13.9 10*3/uL 4.4-11.0 [facility] Bilirubin Test strip Ql (U)O rdered By: Dr. Ewing on 11-11-2022 Bilirubin Ql (U) Negative Negative [facility] Blood erythrocytes count (nu mber/volume)Ordered By: Dr. Ewing on 11-11-2022 RBC (Bld) [#/Vol] 4.23 10*6/uL 4.2-5.4 [facility] Blood hemoglobin measurement (mass/volume)Ordered By: Dr. Ewing on 11-11-2022 Hemoglobin (Bld) [Mass/Vol] 13.5 g/dL 12.0-15.0 [facility] Blood lymphocytes/100 leukoc ytesOrdered By: Dr. Ewing on 11-11-2022 Lymphocytes/100 WBC (Bld) 31.3 % 19-41 [facility] Blood monocytes/100 leukocyt esOrdered By: Dr. Ewing on 11-11-2022 Monocytes/100 WBC (Bld) 7.4 % 0-10 [facility] Blood platelet mean volumeOr dered By: Dr. Ewing on 11-11-2022 Platelet mean volume (Bld) [Entitic vol] 8.8 fL 6.2-12.0 [facility] Determination of erythrocyte mean corpuscular volume (MCV)Ordered By: Dr. Ewing on 11-11-2022 MCV (RBC) [Entitic vol] 88.7 fL 81-99 [facility] Direct bilirubinOrdered By: Dr. Ewing on 11-11-2022 Bilirubin.direct [Mass/Vol] 0.47 mg/dL 0.00-0.30 [facility] Hematocrit Auto (Bld) [Volum e fraction]Ordered By: Dr. Ewing on 11-11-2022 Hematocrit (Bld) [Volume fraction] 37.5 % 37-47 [facility] Ketones Test strip Ql (U)Ord ered By: Dr. Ewing on 11-11-2022 Ketones Ql (U) 5 mg/dl Negative [facility] Laboratory - Chemistry and C hemistry - challengeOrdered By: Dr. Brody on 11-11-2022 Sodium (U) [Moles/Vol] 8 mmol/L Not Establ. [facility] Magnesium [Mass/Vol] 1.6 mg/dL 1.6-2.6 [facility] Laboratory - Chemistry and C hemistry - challengeOrdered By: Dr. Ewing on 11-11-2022 ALP [Catalytic activity/Vol] 45 U/L 45-117 [facility] ALT [Catalytic activity/Vol] 30 U/L 13-56 [facility] CO2 [Moles/Vol] 28.0 mmol/L 21.0-32.0 [facility] Globulin (S) [Mass/Vol] 3.5 g/dL 2.2-4.2 [facility] Urea nitrogen/Creatinine [Mass ratio] 16.2 mg/mg 10-20 [facility] Laboratory - Hematology and Cell countsOrdered By: Dr. Ewing on 11-11-2022 Erythrocyte distribution width (RBC) [Entitic vol] 39.2 fL 35.1-43.9 [facility] Erythrocyte distribution width (RBC) [Ratio] 12.0 % 11.6-14.6 [facility] Immature granulocytes/100 WBC (Bld) 0.400 % 0.0-0.9 [facility] Comment on above: IG% - Immature Granu locytes (promyelocytes, myelocytes and metamyelocytes) > 1% indicates that a LEFT SHIFT is Present. MCH (RBC) [Entitic mass] 31.9 pg 27.0-32.0 [facility] Nucleated RBC/100 WBC (Bld) [Ratio] 0 % 0-5 [facility] MCHC Auto (RBC) [Mass/Vol]Or dered By: Dr. Ewing on 11-11-2022 MCHC (RBC) [Mass/Vol] 36.0 g/dL 32-36 [facility] Mucus LM Ql (Urine sed)Order ed By: Dr. Ewing on 11-11-2022 Mucus Ql (Urine sed) 0 SEEN /hpf [facility] Nitrite Test strip Ql (U)Ord ered By: Dr. Ewing on 11-11-2022 Nitrite Ql (U) Negative Negative [facility] No Panel InformationOrdered By: Dr. Ewing on 11-11-2022 Estimated Creatinine Clearance Calc 27.90 ml/min [facility] Estimated GFR (MDRD) Amer 50 mL/min >60 [facility] Comment on above: GFR Calc Estimated GFR (MDRD) Non-Af Amer 41 mL/min >60 [facility] Comment on above: Non- GFR Calc Troponin I High Sensitivity 13 pg/mL 3.0-54.0 [facility] Comment on above: Please Note: New Denia t Units and Gender Specific Reference Ranges. For more information see Policy Stat Procedure [place] High Sensitivity Troponin (TNIH) and attachments. Platelets bldOrdered By: Dr. Ewing on 11-11-2022 Platelets (Bld) [#/Vol] 506 10*3/uL 150-450 [facility] Protein Test strip Ql (U)Ord ered By: Dr. Ewing on 11-11-2022 Protein Ql (U) Negative Negative [facility] Serum or plasma albumin karri urement (mass/volume)Ordered By: Dr. Ewing on 11-11-2022 Albumin [Mass/Vol] 3.9 g/dL 3.2-5.0 [facility] Serum or plasma calcium karri urement (mass/volume)Ordered By: Dr. Ewing on 11-11-2022 Calcium [Mass/Vol] 9.9 mg/dL 8.5-10.1 [facility] [facility] Serum or plasma creatinine m easurement (mass/volume)Ordered By: Dr. Ewing on 11-11-2022 Creatinine [Mass/Vol] 1.30 mg/dL 0.55-1.02 [facility] Comment on above: The validity of the calculated GFR & GFRAA in patients over 70 years has not been determined. Clinical correlation is essential. Serum or plasma urea nitroge n measurement (mass/volume)Ordered By: Dr. Ewing on 11-11-2022 Urea nitrogen [Mass/Vol] 21 mg/dL 7-18 [facility] Serum or plasma uric acid me asurement (mass/volume)Ordered By: Dr. Brody on 11-11-2022 Urate [Mass/Vol] 4.3 mg/dL 2.6-6.0 [facility] Comment on above: The drugs N-Acetylcy steine and Metamizole may falsely depress this assay. Squamous epithelial cells de tection in urine sediment by light microscopyOrdered By: Dr. Ewing on 11-11-2022 Epithelial cells.squamous LM Ql (Urine sed) 0 SEEN /hpf 5-10 [facility] Thin prep Papanicolaou smear with manual screeningOrdered By: Dr. Brody on 11-11-2022 Thin prep Papanicolaou smear with manual screening 277 mOsm/KG 280-301 [facility] Thin prep Papanicolaou smear with manual screeningOrdered By: Dr. Ewing on 11-11-2022 Thin prep Papanicolaou smear with manual screening 25 U/L 15-37 [facility] Thin prep Papanicolaou smear with manual screening 8 5-15 [facility] Urine blood detectionOrdered By: Dr. Ewing on 11-11-2022 RBC Ql (U) Negative Negative [facility] RBC Ql (U) 0 SEEN /hpf 0-5 [facility] Urine clarityOrdered By: Dr. Ewing on 11-11-2022 Clarity (U) Clear Clear [facility] Urine color determinationOrd ered By: Dr. Ewing on 11-11-2022 Color (U) Yellow Yellow [facility] Urine glucose detectionOrder ed By: Dr. Ewing on 11-11-2022 Glucose Ql (U) Normal mg/dl Normal [facility] Urine leukocyte esterase det ection by dipstickOrdered By: Dr. Ewing on 11-11-2022 Leukocyte esterase Test strip Ql (U) Negative Negative [facility] Urine osmolality measurement Ordered By: Dr. Brody on 11-11-2022 Osmolality (U) [Osmolality] 227 mOsm/KG >50 [facility] Comment on above: Normal Urine Referen ce Ranges Random: 50 - 1200 mOsm/kg H20 depending on fluid intake Random: >850 mOsm/kg after 12 hour fluid restriction 24 hour: ~300 - 900 mOsm/kg H2O Urine pHOrdered By: Dr. Atiya bender on 11-11-2022 pH (U) 6.0 [pH] 5.0 - 8.0 [facility] Urine sediment bacteria coun t by microscopy (number/high power field)Ordered By: Dr. Ewing on 11-11-2022 Bacteria LM.HPF (Urine sed) [#/Area] 0 /[HPF] None Seen [facility] Urine specific gravity measu rementOrdered By: Dr. Ewing on 11-11-2022 Specific gravity (U) [Rel density] 1.010 1.002-1.030 [facility] Urobilinogen Auto test strip Ql (U)Ordered By: Dr. Ewing on 11-11-2022 Urobilinogen Ql (U) Normal mg/dl Normal [facility] Vital Signs Date Time Vital Sign Value Performing Clinician Faci lity 11-04-2024 03:00-0400 Respiratory rate 16 /min Dr. Pete Payne MD Work Phone: [facility] 11-04-2024 00:21-0400 Body temperature 98.2 [degF] Dr. Pete Payne MD Work Phone: [facility] 11-04-2024 00:21-0400 Diastolic blood pressure 60 mm[Hg] Dr. Pete Payne MD Work Phone: [facility] 11-04-2024 00:21-0400 Heart rate 84 /min Dr. Pete Payne MD Work Phone: [facility] 11-04-2024 00:21-0400 SaO2% (BldA) [Mass fraction] 97 % Dr. Pete Payne MD Work Phone: [facility] 11-04-2024 00:21-0400 Systolic blood pressure 143 mm[Hg] Dr. Pete Payne MD Work Phone: [facility] 11-03-2024 21:08-0400 Body height 147.[address] Pete Payne MD Work Phone: [facility] 11-03-2024 21:08-0400 Body mass index (BMI) [Ratio] 29.4 kg/m2 Dr. Pete Payne MD Work Phone: [facility] 11-03-2024 21:08-0400 Body weight 63.[address] Pete Payne MD Work Phone: [facility] 07-25-2023 13:00-0500 Body temperature 97.7 [degF] Dr. Pete Payne Work Phone: [facility] 07-25-2023 13:00-0500 Diastolic blood pressure 74 mm[Hg] Dr. Pete Payne Work Phone: [facility] 07-25-2023 13:00-0500 Heart rate 86 /min Dr. Pete Payne Work Phone: [facility] 07-25-2023 13:00-0500 Respiratory rate 16 /min Dr. Pete Payne Work Phone: [facility] 07-25-2023 13:00-0500 SaO2% (BldA) [Mass fraction] 98 % Dr. Pete Payne Work Phone: [facility] 07-25-2023 13:00-0500 Systolic blood pressure 136 mm[Hg] Dr. Pete aPyne Work Phone: [facility] 07-25-2023 08:00-0500 Body height 147.[address] Pete Payne Work Phone: [facility] 07-25-2023 08:00-0500 Body mass index (BMI) [Ratio] 29.2 kg/m2 Dr. Pete Payne Work Phone: [facility] 07-25-2023 08:00-0500 Body weight 63.[address] Pete Payne Work Phone: [facility] 01-20-2023 03:50-0400 Diastolic blood pressure 61 mm[Hg] Dr. Nancy Ewing Work Phone: [facility] 01-20-2023 03:50-0400 Heart rate 78 /min Dr. Nancy Ewing Work Phone: [facility] 01-20-2023 03:50-0400 Respiratory rate 18 /min Dr. Nancy Ewing Work Phone: [facility] 01-20-2023 03:50-0400 SaO2% (BldA) [Mass fraction] 97 % Dr. Nancy Ewing Work Phone: [facility] 01-20-2023 03:50-0400 Systolic blood pressure 146 mm[Hg] Dr. Nancy Ewing Work Phone: [facility] 01-20-2023 02:01-0400 Body height 147.[address] Nancy Ewing Work Phone: [facility] 01-20-2023 02:01-0400 Body mass index (BMI) [Ratio] 26.9 kg/m2 Dr. Nancy Ewing Work Phone: [facility] 01-20-2023 02:01-0400 Body temperature 97.5 [degF] Dr. Nancy Ewing Work Phone: [facility] 01-20-2023 02:01-0400 Body weight 58.[address] Nancy Ewing Work Phone: [facility] 11-29-2022 09:42-0400 Heart rate 92 /min Dr. Nancy Ewing Work Phone: [facility] 11-29-2022 09:42-0400 Respiratory rate 16 /min Dr. Nancy Ewing Work Phone: 7(770)233-181582 [place] [address] 11-29-2022 09:42-0400 SaO2% (BldA) [Mass fraction] 97 % Dr. Nancy Ewing Work Phone: 2(948)536-611682 [place] [address] 11-29-2022 09:41-0400 Body temperature 97.6 [degF] Dr. Nancy Ewing Work Phone: 2(630)271-480286 [place] [address] 11-29-2022 09:41-0400 Diastolic blood pressure 59 mm[Hg] Dr. Nancy Ewing Work Phone: 9(084)118-537382 [place] [address] 11-29-2022 09:41-0400 Systolic blood pressure 144 mm[Hg] Dr. Nancy Ewing Work Phone: 8(942)939-739786 [place] [address] 11-28-2022 13:27-0400 Body temperature 97.1 [degF] Dr. Nancy Ewing Work Phone: 6(797)924-759086 [place] [address] 11-28-2022 13:27-0400 Diastolic blood pressure 61 mm[Hg] Dr. Nancy Ewing Work Phone: 2(252)620-632686 [place] [address] 11-28-2022 13:27-0400 Heart rate 65 /min Dr. Nancy Ewing Work Phone: 9(255)514-049086 [place] [address] 11-28-2022 13:27-0400 Respiratory rate 16 /min Dr. Nancy Ewing Work Phone: 7(597)777-576786 [place] [address] 11-28-2022 13:27-0400 SaO2% (BldA) [Mass fraction] 95 % Dr. Nancy Ewing Work Phone: 4(888)127-688482 [place] [address] 11-28-2022 13:27-0400 Systolic blood pressure 133 mm[Hg] Dr. Nancy Ewing Work Phone: 0(948)742-561459 [address] 11-26-2022 14:37-0400 Body height 147.[address] Nancy Ewing Work Phone: 3(934)026-165886 [place] [address] 11-26-2022 14:37-0400 Body weight 54.[address] Nancy Ewing Work Phone: 2(334)321-945982 [place] [address] 11-25-2022 12:48-0400 Body mass index (BMI) [Ratio] 25 kg/m2 Dr. Nancy Ewing Work Phone: 2(256)882-184586 [place] [address] 11-13-2022 14:35-0400 Body temperature 98 [degF] Dr. Nancy Ewing Work Phone: 0(723)399-681486 [place] [address] 11-13-2022 14:35-0400 Diastolic blood pressure 48 mm[Hg] Dr. Nancy Ewing Work Phone: 0(756)301-987086 [place] [address] 11-13-2022 14:35-0400 Heart rate 71 /min Dr. Nancy Ewing Work Phone: 9(573)038-844586 [place] [address] 11-13-2022 14:35-0400 Respiratory rate 18 /min Dr. Nancy Ewing Work Phone: 9(371)012-285986 [place] [address] 11-13-2022 14:35-0400 SaO2% (BldA) [Mass fraction] 100 % Dr. Nancy Ewing Work Phone: 5(587)649-452486 [place] [address] 11-13-2022 14:35-0400 Systolic blood pressure 123 mm[Hg] Dr. Nancy Ewing Work Phone: 7(221)322-818286 [place] [address] 11-12-2022 12:32-0400 Body height 147.[address] Nancy Ewing Work Phone: 2(779)495-077586 [place] [address] 11-12-2022 12:32-0400 Body weight 55.[address] Nancy Ewing Work Phone: 1(029)666-556086 [place] [address] 11-11-2022 22:57-0400 Body mass index (BMI) [Ratio] 25.5 kg/m2 Dr. Nancy Ewing Work Phone: 8(289)135-053186 [place] [address] 11-11-2022 21:44-0400 Body temperature 97.8 [degF] Dr. Nancy Ewing Work Phone: 4(348)628-489386 [place] [address] 11-11-2022 21:44-0400 Diastolic blood pressure 60 mm[Hg] Dr. Nancy Ewing Work Phone: [facility] 11-11-2022 21:44-0400 Heart rate 75 /min Dr. Nancy Ewing Work Phone: [facility] 11-11-2022 21:44-0400 Respiratory rate 17 /min Dr. Nancy Ewing Work Phone: [facility] 11-11-2022 21:44-0400 SaO2% (BldA) [Mass fraction] 100 % Dr. Nancy Ewing Work Phone: [facility] 11-11-2022 21:44-0400 Systolic blood pressure 134 mm[Hg] Dr. Nancy Ewing Work Phone: [facility] 11-11-2022 16:37-0400 Body height 147.[address] Nancy Ewing Work Phone: [facility] 11-11-2022 16:37-0400 Body mass index (BMI) [Ratio] 26.2 kg/m2 Dr. Nancy Ewing Work Phone: [facility] 11-11-2022 16:37-0400 Body weight 56.[address] Nancy Ewing Work Phone: [facility] Encounters Encounter Date Encounter Type Care Provider Facility Start: 02-06-2025 ambulatory Efgeena Hdezi ty:[facility] Start: 01-13-2025 ambulatory Efewkeishabe Olesarthak Facili ty:[facility] Start: 01-13-2025 Registered Referred Pete Payne MD [facility] Start: 01-03-2025 End: 01-03-[address] Pete Payne MD Work Phone: -[facility] Start: 01-03-2025 End: 01-03-2025 Patient encounter procedure Poppy Mccracken HOT BLASTER-C -[facility] Work Phone: Start: 12-26-2024 ambulatory Pete ROBERTS Fa cility:[facility] Start: 12-26-2024 Registered Referred Pete Virk Start: 12-13-2024 End: 12-13-[address] Pete Payne MD Work Phone: [facility] Work Phone: Start: 12-13-2024 End: 12-13-2024 Departed Referred Pete Virk Start: 12-13-2024 Registered Referred Pete Virk Start: 12-13-2024 End: 12-13-2024 ambulatory Pete Payne Facility:[facility] Start: 12-06-2024 End: 12-06-[address] Pete Payne MD Work Phone: [facility] Start: 12-06-2024 End: 12-06-[address] Pete Payne MD -[facility] Work Phone: Start: 11-22-2024 End: 11-22-[address] Pete Payne MD Work Phone: [facility] Work Phone: Start: 11-22-2024 End: 11-22-2024 Departed Referred Pete Virk Start: 11-22-2024 Registered Referred Pete Virk Start: 11-22-2024 End: 11-22-2024 ambulatory Pete Payne Facility:[facility] Start: 11-14-2024 End: 11-14-[address] Pete Payne MD Work Phone: [facility] Work Phone: Start: 11-14-2024 End: 11-14-2024 Departed Referred Pete Virk Start: 11-14-2024 End: 11-14-2024 ambulatory Pete Payne OLS Facility:[facility] Start: 11-03-2024 End: 11-04-2024 Emergency department patient visit Dr. Pete Panye MD Work Phone: -Emergency Department Work Phone: Start: 10-21-2024 End: 10-21-2024 ambulatory Celestealexisanne Payne Facility:[facility] Start: 10-21-2024 End: 10-21-2024 Patient encounter procedure Poppy Mccracken HOT BLASTERJavier -[facility] Work Phone: Start: 10-17-2024 End: 10-17-[address] Pete Payne MD Work Phone: [facility] Work Phone: Start: 10-17-2024 End: 10-17-2024 Departed Referred Pete Virk Start: 10-17-2024 Registered Referred Pete Virk Start: 10-17-2024 End: 10-17-2024 ambulatory Pete Payne Facility:[facility] Start: 10-10-2024 End: 10-10-[address] Pete Payne MD Work Phone: [facility] Work Phone: Start: 10-10-2024 End: 10-10-2024 Departed Referred Pete Virk Start: 10-10-2024 Registered Referred Pete Virk Start: 10-10-2024 End: 10-10-2024 ambulatory Pete Payne Facility:[facility] Start: 10-06-2024 End: 10-06-[address] Pete Payne MD Work Phone: [facility] Work Phone: Start: 10-06-2024 End: 10-06-2024 Departed Referred Peet Virk Start: 10-06-2024 Registered Referred Pete Virk Start: 10-06-2024 End: 10-06-2024 ambulatory Efalexisanne Beltrane Facility:[facility] Start: 10-03-2024 End: 10-03-[address] Pete Payne MD Work Phone: [facility] Work Phone: Start: 10-03-2024 End: 10-03-2024 Departed Referred Pete Virk Start: 10-03-2024 End: 10-03-2024 ambulatory Efewongsudarshan Payne Facility:[facility] Start: 09-20-2024 End: 09-20-2024 ambulatory Efewongbe Kentrellriteshe Facility:[facility] Start: 09-20-2024 End: 09-20-[address] Pete Payne MD -[facility] Work Phone: Start: 09-01-2024 End: 09-01-2024 ambulatory Efalexisongbe Devine Facility:[facility] Start: 09-01-2024 End: 09-01-2024 Patient encounter procedure Mateo CRANDALL -[facility] Work Phone: Start: 08-23-2024 ambulatory Efalexisongbe Devine Facili ty:[facility] Start: 08-23-2024 Registered Referred Pete Virk Start: 07-11-2024 End: 07-11-2024 Departed Referred Pete Virk Start: 07-11-2024 End: 07-11-2024 ambulatory Efewongbe Oleriteshe Facility:[facility] Start: 06-21-2024 End: 06-21-2024 ambulatory Efewongbe Oleriteshe Facility:[facility] Start: 06-21-2024 End: 06-21-2024 Patient encounter procedure Poppy BLANC -[facility] Work Phone: Start: 05-31-2024 End: 05-31-2024 ambulatory Efewongbe Oleghe Facility:[facility] Start: 05-30-2024 End: 05-30-2024 ambulatory Efewongbe Oleghe OLS Facility:[facility] Start: 05-24-2024 End: 05-24-2024 ambulatory Efewongbe Oleghe Facility:[facility] Start: 05-03-2024 End: 05-03-2024 ambulatory Efewongbe Oleghe Facility:[facility] Start: 04-18-2024 End: 04-18-2024 ambulatory Efewongbe Oleghe Facility:[facility] Start: 03-22-2024 End: 03-22-2024 ambulatory Efewongbe Oleghe Facility:[facility] Start: 03-07-2024 End: 03-07-2024 ambulatory Efewongbe Oleghe Facility:[facility] Start: 03-03-2024 End: 03-03-2024 ambulatory Efewongbe Oleghe Facility:[facility] Start: 02-25-2024 End: 02-25-2024 ambulatory Efewongbe Oleghe Facility:[facility] Start: 02-23-2024 End: 02-23-2024 ambulatory Efewongbe Oleghe Facility:[facility] Start: 02-17-2024 End: 02-17-2024 ambulatory Efalexisongbe Kentrellghe Facility:[facility] Start: 08-25-2023 End: 08-25-[address] Pete Payne Work Phone: [facility] Work Phone: Start: 08-25-2023 End: 08-25-[address] Pete Payne Work Phone: [facility] Start: 07-25-2023 End: 07-25-2023 Emergency department patient visit Dr. Pete Payne Work Phone: [facility] Work Phone: Start: 07-02-2023 End: 07-02-[address] Pete Payne Work Phone: [facility] Work Phone: Start: 06-02-2023 End: 06-02-[address] Pete Payne Work Phone: [facility] Work Phone: Start: 05-04-2023 End: 05-04-[address] Pete Payne Work Phone: [facility] Work Phone: Start: 03-31-2023 End: 03-31-[address] Pete Payne Work Phone: [facility] Work Phone: Start: 03-16-2023 End: 03-16-[address] Pete Payne Work Phone: [facility] Work Phone: Start: 03-16-2023 End: 03-16-[address] Pete Payne Work Phone: [facility] Start: 03-16-[address] Madison Payne Work Phone: [facility] Start: 03-14-2023 End: 03-14-[address] Pete Payne Work Phone: [facility] Work Phone: Start: 03-12-2023 End: 03-12-[address] Pete Payne Work Phone: [facility] Work Phone: Start: 03-12-2023 End: 03-12-[address] Pete Payne Work Phone: [facility] Start: 01-27-2023 End: 01-27-[address] Pete Payne Work Phone: [facility] Work Phone: Start: 01-20-2023 End: 01-20-2023 Emergency department patient visit Dr. Nancy Ewing Work Phone: [facility] Work Phone: Start: 12-23-2022 End: 12-23-[address] Pete Payne Work Phone: [facility] Work Phone: Start: 12-02-2022 End: 12-02-[address] Nancy Ewing Work Phone: [facility] Work Phone: Start: 12-01-2022 End: 12-01-[address] Nancy Ewing Work Phone: [facility] Work Phone: Start: 12-01-2022 End: 12-01-[address] Nancy Ewing Work Phone: [facility] [place] Start: 11-24-2022 End: 11-24-[address] Nancy Ewing Work Phone: [facility] Work Phone: Start: 11-24-2022 End: 11-24-[address] Nancy Ewing Work Phone: [facility] Start: 11-13-2022 End: 11-29-2022 Evaluation and management of inpatient Dr. Nancy Ewing Work Phone: [facility]Transitional [facility] Unit Start: 11-13-2022 Non-patient / Non-visit Dr. Christophe Ewing Work Phone: [facility] Start: 11-12-2022 Non-patient / Non-visit Dr. Christophe Ewing Work Phone: [facility] Start: 11-11-2022 Non-patient / Non-visit Dr. Christophe Ewing Work Phone: [facility] Start: 11-11-2022 End: 11-13-2022 Evaluation and management of inpatient Dr. Nancy Ewing Work Phone: [facility]-Medical Surgical 3 Procedures Date Procedure Procedure Detail [...] Date Care Activity Detail Author Start: 11-04-2024 [facility] Start: 11-03-2024 Simple repair f/e/e/ n/l/m 2.6cm-5.0 cm RPR F/E/E/N/L/M 2.6-5.0 CM [facility] Start: 07-25-2023 [facility] Start: 01-02-2023 Blood chemistry [facility] Start: 12-26-2022 Blood chemistry [facility] Start: 12-19-2022 Blood chemistry [facility] Start: 12-12-2022 Blood chemistry [facility] Start: 12-05-2022 Blood chemistry [facility] Start: 11-29-2022 Patient discharge [facility] Start: 11-28-2022 Development of care plan [facility] Start: 11-20-2022 [facility] Start: 11-20-2022 [facility] Start: 11-19-2022 Palliative care [facility] Start: 11-19-2022 [facility] Start: 11-18-2022 [facility] Start: 11-17-2022 [facility] Start: 11-16-2022 [facility] Start: 11-15-2022 [facility] Start: 11-14-2022 Developing a treatment plan [facility] Start: 11-14-2022 Speech therapy management [facility] Start: 11-14-2022 Development of care plan [facility] Start: 11-14-2022 End: 11-14-2022 [facility] Start: 11-13-2022 [facility] Start: 11-13-2022 Speech therapy assessment [facility] Start: 11-13-2022 Following clinical p athway protocol [facility] Start: 11-13-2022 Admission procedure [facility] Start: 11-13-2022 Measuring intake and output [facility] Start: 11-13-2022 Patient referral to dietitian [facility] Start: 11-13-2022 Referral to occupati onal therapist [facility] Start: 11-13-2022 Referral to service [facility] Start: 11-13-2022 Verification routine [facility] Start: 11-13-2022 Vital signs measurements [facility] Start: 11-13-2022 [facility] Start: 11-13-2022 Patient discharge [facility] Start: 11-12-2022 Vitamin D, 25-hydrox y measurement [facility] Start: 11-12-2022 [facility] Start: 11-12-2022 Patient referral to dietitian [facility] Start: 11-11-2022 Blood chemistry [facility] Start: 11-11-2022 Following clinical p athway protocol [facility] Start: 11-11-2022 Assessment of risk o f venous thromboembolism [facility] Start: 11-11-2022 Insertion of cathete r into peripheral vein [facility] Start: 11-11-2022 Oxygen therapy [facility] Start: 11-11-2022 Providing care accor ding to standard [facility] Start: 11-11-2022 Provision of activit y privileges [facility] Start: 11-11-2022 Referral to occupati onal therapist [facility] Start: 11-11-2022 Referral to service [facility] Start: 11-11-2022 [facility] Start: 11-11-2022 Verification routine [facility] Start: 11-11-2022 Admission procedure [facility] Start: 11-11-2022 Patient referral to dietitian [facility] Alanine aminotransfe rase [Enzymatic activity/volume] in Serum or Plasma [facility] Albumin [Mass/volume ] in Serum or Plasma [facility] Alkaline phosphatase [Enzymatic activity/volume] in Serum or Plasma [facility] Anion gap measurement [facility] Anion gap measurement [facility] Anion gap measurement [facility] Anion gap measurement [facility] Anion gap measurement [facility] Anion gap measurement [facility] Aspartate aminotrans ferase [Enzymatic activity/volume] in Serum or Plasma [facility] Bilirubin, total measurement [facility] Bilirubin.direct [Mass/volume] in Serum or Plasma [facility] BUN/Creatinine ratio [facility] BUN/Creatinine ratio [facility] BUN/Creatinine ratio [facility] BUN/Creatinine ratio [facility] BUN/Creatinine ratio [facility] BUN/Creatinine ratio [facility] Calcium [Mass/volume ] in Serum or Plasma [facility] Calcium [Mass/volume ] in Serum or Plasma [facility] Calcium [Mass/volume ] in Serum or Plasma [facility] Calcium [Mass/volume ] in Serum or Plasma [facility] Calcium [Mass/volume ] in Serum or Plasma [facility] Calcium [Mass/volume ] in Serum or Plasma [facility] Carbon dioxide, tota l [Moles/volume] in Serum or Plasma [facility] Carbon dioxide, tota l [Moles/volume] in Serum or Plasma [facility] Carbon dioxide, tota l [Moles/volume] in Serum or Plasma [facility] Carbon dioxide, tota l [Moles/volume] in Serum or Plasma [facility] Carbon dioxide, tota l [Moles/volume] in Serum or Plasma [facility] Carbon dioxide, tota l [Moles/volume] in Serum or Plasma [facility] Chloride [Moles/volu me] in Serum or Plasma [facility] Chloride [Moles/volu me] in Serum or Plasma [facility] Chloride [Moles/volu me] in Serum or Plasma [facility] Chloride [Moles/volu me] in Serum or Plasma [facility] Chloride [Moles/volu me] in Serum or Plasma [facility] Chloride [Moles/volu me] in Serum or Plasma [facility] Cortisol [Mass/volum e] in Serum or Plasma [facility] Creatinine [Moles/vo lume] in Serum or Plasma [facility] Creatinine [Moles/vo lume] in Serum or Plasma [facility] Creatinine [Moles/vo lume] in Serum or Plasma [facility] Creatinine [Moles/vo lume] in Serum or Plasma [facility] Creatinine [Moles/vo lume] in Serum or Plasma [facility] Creatinine [Moles/vo lume] in Serum or Plasma [facility] Glucose [Mass/volume ] in Serum or Plasma [facility] Glucose [Mass/volume ] in Serum or Plasma [facility] Glucose [Mass/volume ] in Serum or Plasma [facility] Glucose [Mass/volume ] in Serum or Plasma [facility] Glucose [Mass/volume ] in Serum or Plasma [facility] Glucose [Mass/volume ] in Serum or Plasma [facility] Hematocrit [Volume F raction] of Blood [facility] Hematocrit [Volume F raction] of Blood [facility] Hematocrit [Volume F raction] of Blood [facility] Hematocrit [Volume F raction] of Blood [facility] Hematocrit [Volume F raction] of Blood [facility] Hematocrit [Volume F raction] of Blood [facility] Hemoglobin [Mass/vol ume] in Blood [facility] Hemoglobin [Mass/vol ume] in Blood [facility] Hemoglobin [Mass/vol ume] in Blood [facility] Hemoglobin [Mass/vol ume] in Blood [facility] Hemoglobin [Mass/vol ume] in Blood [facility] Hemoglobin [Mass/vol ume] in Blood [facility] Leukocytes [#/volume ] in Blood [facility] Leukocytes [#/volume ] in Blood [facility] Leukocytes [#/volume ] in Blood [facility] Leukocytes [#/volume ] in Blood [facility] Leukocytes [#/volume ] in Blood [facility] Leukocytes [#/volume ] in Blood [facility] Magnesium [Mass/volu me] in Serum or Plasma [facility] Mean corpuscular hem oglobin concentration determination [facility] Mean corpuscular hem oglobin concentration determination [facility] Mean corpuscular hem oglobin concentration determination [facility] Mean corpuscular hem oglobin concentration determination [facility] Mean corpuscular hem oglobin concentration determination [facility] Mean corpuscular hem oglobin concentration determination [facility] Mean corpuscular hem oglobin determination [facility] Mean corpuscular hem oglobin determination [facility] Mean corpuscular hem oglobin determination [facility] Mean corpuscular hem oglobin determination [facility] Mean corpuscular hem oglobin determination [facility] Mean corpuscular hem oglobin determination [facility] Measurement of renal function [facility] Measurement of renal function [facility] Measurement of renal function [facility] Measurement of renal function [facility] Measurement of renal function [facility] Measurement of renal function [facility] Neutrophil count [facility] Neutrophil count [facility] Neutrophil count [facility] Neutrophil count [facility] Neutrophil count [facility] Neutrophil count [facility] Neutrophil percent differential count [facility] Neutrophil percent differential count [facility] Neutrophil percent differential count [facility] Neutrophil percent differential count [facility] Neutrophil percent differential count [facility] Neutrophil percent differential count [facility] Patient Education [facility] Work Phone: Patient referral [facility] Work Phone: Platelets [#/volume] in Blood [facility] Platelets [#/volume] in Blood [facility] Platelets [#/volume] in Blood [facility] Platelets [#/volume] in Blood [facility] Platelets [#/volume] in Blood [facility] Platelets [#/volume] in Blood [facility] Potassium [Moles/vol ume] in Serum or Plasma [facility] Potassium [Moles/vol ume] in Serum or Plasma [facility] Potassium [Moles/vol ume] in Serum or Plasma [facility] Potassium [Moles/vol ume] in Serum or Plasma [facility] Potassium [Moles/vol ume] in Serum or Plasma [facility] Potassium [Moles/vol ume] in Serum or Plasma [facility] Red blood cell count [facility] Red blood cell count [facility] Red blood cell count [facility] Red blood cell count [facility] Red blood cell count [facility] Red blood cell count [facility] Red cell distributio n width determination [facility] Red cell distributio n width determination [facility] Red cell distributio n width determination [facility] Red cell distributio n width determination [facility] Red cell distributio n width determination [facility] Red cell distributio n width determination [facility] Sodium [Moles/volume ] in Serum or Plasma [facility] Sodium [Moles/volume ] in Serum or Plasma [facility] Sodium [Moles/volume ] in Serum or Plasma [facility] Sodium [Moles/volume ] in Serum or Plasma [facility] Sodium [Moles/volume ] in Serum or Plasma [facility] Sodium [Moles/volume ] in Serum or Plasma [facility] Total protein measurement [facility] Urate [Mass/volume] in Serum or Plasma [facility] Urea nitrogen [Mass/ volume] in Serum or Plasma [facility] Urea nitrogen [Mass/ volume] in Serum or Plasma [facility] Urea nitrogen [Mass/ volume] in Serum or Plasma [facility] Urea nitrogen [Mass/ volume] in Serum or Plasma [facility] Urea nitrogen [Mass/ volume] in Serum or Plasma [facility] Urea nitrogen [Mass/ volume] in Serum or Plasma [facility] Immunizations Immunization Date Immunization Notes Care Provider [facility] 07-03-2022 Covid Pfizer Bivalen t Booster Dr. Nancy Ewing Work Phone: [facility] 06-06-2021 Covid (Pfizer) Dr. Nancy Ewing Work Phone: [facility] 08-16-2020 Covid (Pfizer) Dr. Nancy Ewing Work Phone: [facility] 07-26-2020 Covid (Pfizer) Dr. Nancy Ewing Work Phone: [facility] 07-20-2012 pneumococcal conjuga te vaccine, [address] Nancy Ewing Work Phone: [facility] 07-20-2001 pneumococcal vaccine , unspecified formulation Dr. Nancy Ewing Work Phone: [facility] Payers Date Payer Category Payer Self-pay [id number] 2024 Medicaid [id number] 2015 Private Health Insurance [id number] 2001 Medicare MEDICARE PART A B [id number] Unknown [facility] [id number] Unknown [id number] 2.16.840.1.151076.3.579.2.462 Unknown [id number] 2.16.840.1.257056.3.579.2.462 Unknown [id number] 2.16.840.1.127091.3.579.2.462 Unknown [id number] 2.16.840.1.175703.3.579.2.462 Unknown [id number] 2.16.840.1.557349.3.579.2.462 Unknown [id number] 2.16.840.1.442420.3.579.2.462 Unknown [id number] 2.16.840.1.108435.3.579.2.462 Unknown [id number] 2.16.840.1.594948.3.579.2.462 Unknown [id number] 2.16.840.1.190754.3.579.2.462 Unknown [id number] 2.16.840.1.568386.3.579.2.462 Unknown [id number] 2.16.840.1.724175.3.579.2.462 Unknown [id number] 2.16.840.1.367528.3.579.2.462 Unknown [id number] 2.16.840.1.563391.3.579.2.462 Unknown [id number] 2.16.840.1.396351.3.579.2.462 Unknown [id number] 2.16.840.1.298380.3.579.2.462 Unknown [id number] 2.16.840.1.779843.3.579.2.462 Unknown [id number] 2.16.840.1.916435.3.579.2.462 Unknown [id number] 2.16.840.1.820937.3.579.2.462 Unknown [id number] 2.16.840.1.040267.3.579.2.462 Unknown [id number] 2.16840.1.887843.3.579.2.462 Unknown [id number] 2.16.840.1.836424.3.579.2.462 Unknown [id number] 2.16840.1.210677.3.579.2.462 Unknown [id number] 2.16840.1.952803.3.579.2.462 Unknown [id number] 2.840.1.077591.3.579.2.462 Unknown [id number] 2.16840.1.626308.3.579.2.462 Unknown [id number] 2.16840.1.129463.3.579.2.462 Unknown [id number] 2.16840.1.996920.3.579.2.462 Unknown [id number] 2.16840.1.556640.3.579.2.462 Unknown [id number] 2.840.1.578975.3.579.2.462 Unknown [id number] 2.840.1.763612.3.579.2.462 Social History Date Type Detail Facility Start: 11-11-2022 End: 07-25-2023 Tobacco smoking status NHIS Unknown if ever smoked [facility] Start: 11-11-2022 Rare [facility] Start: 11-11-2022 None [facility] Start: 11-11-2022 Homeless [facility] Start: 11-11-2022 Non-smoker [facility] Start: 04-13-1936 Sex Assigned At Female W [facility] Start: 07-25-2023 End: 11-03-2024 Tobacco smoking status NHIS Never smoked tobacco (finding) [facility] Start: 10-19-2024 End: 11-08-2024 Sex Female (finding) [facility] Goals Date Patient Goal Desired Activity /State Functional Status Date Assessment Result Facility 11-29-2022 Functional status Ambulates [facility] Work Phone: 11-28-2022 Functional status Ambulates [facility] Work Phone: 11-13-2022 Functional status 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 [facility] Work Phone: Mental Status Date Assessment Result Facility 07-25-2023 Cognitive function Voice/Name [facility] Work Phone: 11-29-2022 Cognitive function Voice/Name [facility] Work Phone: 11-27-2022 Cognitive function Voice/Name [facility] Work Phone: 11-26-2022 Cognitive function Appropriate;Cooperativ e [facility] Work Phone: 11-13-2022 Cognitive function Voice/Name [facility] Work Phone: Clinical Notes 11-12-2022 to 11-04-2024 Note Date & Type Note Facility 11-04-2024 Discharge summary Note Date/Time November 04, 2024 12:36am [facility] Medical Records Department [address] [place] [address] Emergency Department Summary 11/03/24 MR#: [id number] Acct: [id number] Name: MAXIME AMARAL Rep #:[id number] : 1935 89 From: Alirio Patel PCP: Dr. Pete Payne MD Status:R EG ER Location: ED HPI HPI - Fall History of Present Illness Chief Complaint: Fall Informant: patient and family Narrative Narrative: Patient brought in by EMS from [facility] witnessed fall head injury. Patient [...] from paperwork. She has baseline per son. [facility] Medical History Dry eye syndrome of [...] clinician: N/A This note was generated with [employer] software. It may contain incorrectwords, spelling, and punctuation that were not noted in checking the note beforesigning. Radiography Diagnostic Testing: Clinical Impression(s) from Imaging Studies Shoulder X-Ray 11/03/24 21:48 IMPRESSION: NO ACUTE FRACTURE OR DISLOCATION. Reading Location: [facility] Brain CT 11/03/24 22:10 IMPRESSION: CHRONIC CHANGES. NO ACUTE FINDINGS. [facility] C[facility] Sp[facility] CT 11/03/24 22:10 IMPRESSION: NO ACUTE CERVICAL FRACTURE. DEGENERATIVE CHANGES. No acute fracture or subluxation. Reading Location: [facility] Facial/Sinus 11/03/24 22:10 IMPRESSION: Small soft tissue laceration along the right supraorbital region. No acute fracture. Reading Location: [facility] Discharge Plan Triage Chief Complaint: Fall [...] in 5 to 7 days. Print Language: Libyan Disposition Disposition: Home, Self Care What to do if you have Problems For any increased pain, shortness of breath, bleeding, nausea or vomiting, chestpain, or any unexpected problems, contact your Primary Care Provider. Call [facility] ([phone]) or report to the closest Emergency Room. Call 911 if necessary. 11/04/24 0036 <Electronically signed by Alirio Patel> Cosigner Signature (if applicable): CC: Dr. Pete Payne MD ~ Signed [facility] Work Phone: 1(424) 487-818304-18-2025 Discharge summary [facility] Medical Records Department [address] [place] [address] Emergency Department Summary 11/03/24 MR#: [id number] Acct: [id number] Name: MAXIME AMARAL Rep #:[id number] : 1935 89 From: Alirio Patel PCP: Dr. Pete Payne MD Status:R EG ER Location: ED HPI HPI - Fall History of Present Illness Chief Complaint: Fall Informant: patient and family Narrative Narrative: Patient brought in by EMS from [facility] witnessed fall head injury. Patient [...] from paperwork. She has baseline per son. [facility] Medical History Dry eye syndrome of [...] mg tablet 500 mg PO DAILY DIABETES 04/ 24/14 01/05/24 History propranolol 20 mg tablet 20 mg [...] clinician: N/A This note was generated with [employer] dictation software. It may contain incorrectwords, spelling, and punctuation that were not noted in checking the note beforesigning. Radiography Diagnostic Testing: Clinical Impression(s) from Imaging Studies Shoulder X-Ray 11/03/24 21:48 IMPRESSION: NO ACUTE FRACTURE OR DISLOCATION. [facility] 11/03/24 22:10 IMPRESSION: CHRONIC CHANGES. NO ACUTE FINDINGS. Reading Location: [facility] Cervical Spine CT 11/03/24 22:10 IMPRESSION: NO ACUTE CERVICAL FRACTURE. DEGENERATIVE CHANGES. No acute fracture or subluxation. Reading Location: [facility] Facial/Sinus 11/03/24 22:10 IMPRESSION: Small soft tissue laceration along the right supraorbital region. No acute fracture. [facility] Dis[facility] Plan Triage Chief Complaint: Fall Other [...] in 5 to 7 days. Print Language: Libyan Disposition Disposition: Home, Self Care What to do if you have Problems For any increased pain, shortness of breath, bleeding, nausea or vomiting, chestpain, or any unexpected problems, contact your Primary Care Provider. Call [facility] ([phone]) or report tothe closest Emergency Room. Call 911 if necessary. 11/04/24 0036 Cosigner Signature (if applicable): CC: Dr. Pete Payne MD ~ Signed [facility]04-17-2025 Radiology Diagnostic study note [facility] Imaging Services [address] [place], [place] [address] Spine Cervical without Contras MR#: [id number] Acct: [id number] Name: MAXIME AMARAL Rep #: [id number] : 1935 F 89 From: Steve Sotelo DO PCP: Dr. Pete Payne MD Status: R EG ER Study:Spine Cervical without Contras Date of Exam: 11/03/24 Exam# [id number] Ordering Dr: Alirio Edward DO PROCEDURE: SPINE [...] No acute fracture or subluxation. Reading Location: [facility] CC: Dr. Pete Payne MD; Dr. Alirio Edward DO ~ Field Service Manager: Signed [facility]04-17-2025 Radiology Diagnostic study note [facility] Imaging Services [address] [place] [address] Sinus/Facial Bone MR#: [id number] Acct: [id number] Name: MAXIME AMARAL Rep #: [id number] : 1935 F 89 From: Steve Sotelo DO PCP: Dr. Pete Payne MD Status: R EG ER Study:Sinus/Facial Bone Date of Exam: Exam# [id number] Ordering Dr: Alirio Edward DO PROCEDURE: SINUS/FACIAL [...] region. No acute fracture. Reading Location: [facility] CC: Dr. Pete Payne MD; Dr. Alirio Edward DO ~ Field Service Manager: Signed [facility]04-17-2025 Radiology Diagnostic study note [facility] Imaging Services [address] [place], [place] [id number] Brain/Head without Contrast MR#: [id number] Acct: [id number] Name: MAXIME AMARAL Rep #: [id number] : 1935 F 89 From: Steve Sotelo DO PCP: Dr. Pete Payne MD Status: R ER Study:Brain/Head without Contrast Date of Exa m: 11/03/24 Exam# [id number] Ordering Dr: Alirio Edward DO PROCEDURE: BRAIN/HEAD [...] CHRONIC CHANGES. NO ACUTE FINDINGS. Reading Location: [facility] CC: Dr. Pete Payne MD; Dr. Alirio Edward DO ~ Field Service Manager: Signed [facility]04-17-2025 Radiology Diagnostic study note [facility] Imaging Services [address] [place] [address] Shoulder min 2 Views MR#: [id number] Acct: [id number] Name: MAXIME AMARAL Rep #: [id number] : 1935 F 89 From: Steve Sotelo DO PCP: Dr. Pete Payne MD Status: R EG ER Study:Shoulder min 2 Views Date of Exam: 11/03/24 Exam# [id number] Ordering Dr: Alirio Edward DO PROCEDURE: SHOULDER MIN 2 VIEWS 11/03/2024 REASON FOR EXAM: INJURY TECHNIQUE: 3 view(s) of the right shoulder COMPARISON: None FINDINGS: Bones: No acute fracture. Joints: Normal alignment of the acromioclavicular and glenohumeral joints. Soft tissues: Soft tissues are unremarkable. Other: RAD/Shoulder min 2 Views IMPRESSION: NO ACUTE FRACTURE OR DISLOCATION. Reading Location: [facility] CC: Dr. Pete Payne MD; Dr. Alirio Edward DO ~ Field Service Manager: Signed [facility]01-06-2024 Discharge summary Author [facility] July 25, 2023 8:48am Note Date/Time July 25, 2023 8: 48am [facility] Medical Records Department [address] [place] [address] Emergency Department Summary 07/25/23 MR#: [id number] Acct: [id number] Name: MAXIME AMARAL Rep #:[id number] : 1935 87 From: Jos Rush DO [...] this time but otherwise denies any symptoms [facility] Medical History Alzheimer's disease, unspecified CKD [...] is otherwise safe to return to the group home Radiography Diagnostic Testing: Clinical Impression(s) from Imaging [...] 6:40 EST Reading Location ID and State: [facility] / [place] Tel , Service support , Hip/Pelvis X-Ray 07/25/23 05:47 IMPRESSION: No acute pelvic or left hip fracture demonstrated. Electronically Signed: Gabrielle Gallegos MD at 6:45 EST Reading Location ID and State: [facility] / [place] Tel , Service support , Lower Extremity CT 07/25/23 06:44 IMPRESSION: 1. Small amount of presumed hemarthrosis or other complex mildly dense fluid in the suprapatellar bursa. No lipohemarthrosis or convincing acute fracture. 2. Irregular posterior-medial tibial plateau corner is not typical of acute fracture. Demineralization and degenerative changes. Electronically Signed: Gabrielle Gallegos MD at 8:18 EST Reading [facility] [place] Tel , Service support , Left hip [...] your Primary Care Provider. Call [facility] ([phone]) or report to the closest Emergency Room. Call 911 if necessary. 07/25/23 0848 <Electronically signed by Jos Rush DO> Cosigner Signature (if applicable): CC: Dr. Pete Payne MD ~ Signed [facility] Work Phone: 1(282) 223-159807-04-2023 Discharge summary Author [facility] January 20, 2023 4:32am Note Date/Time January 20, 2023 3:43a m [facility] Medical Records Department [address] [place] [address] Emergency Department Summary 01/20/23 MR#: [id number] Acct: [id number] Name: MAXIME AMARAL Rep #:[id number] : 1935 87 From: Jos Rush DO PCP: Dr. Pete Payne MD Status:R EG ER Location: ED HPI History of Present Illness Chief Complaint: Fall Informant: patient and EMS Limited: dementia Narrative Narrative: Patient is a 87-year-old female with past medical history of dementia who stays in a group home in their dementia unit. Nursing reports that patient was reportedly wandering this evening and had a fall. They found the patient awake and alert but with trauma to her head/face. They deny any blood thinners but states secondary to the fall and patient complaining of pain in her knees and shoulders she was sent in for evaluation [facility] Medical History Alzheimer's disease, unspecified Depression, [...] 3:16 EDT Reading Location ID and State: [facility] / [place] Tel , Service support , Cervical Spine [...] your Primary Care Provider. Call [facility] ([phone]) or report to the closest Emergency Room. Call 911 if necessary. 01/20/23 0432 <Electronically signed by Jos Rush DO> Cosigner Signature (if applicable): CC: Dr. Pete Payne MD ~ Signed [facility] Work Phone: 1(195) 763-446705-10-[address] Crooks [facility] November 26, 2022 9:10pm Note Date/Time November 26, 2022 9:10p [facility] Medical Records Department [address] [place] [address] Transfer to Extended Care MR#: [id number] Acct: [id number] Name: CRISTINMAXIME Ellie Rep #:[id number] : 1935 87 From: Sylvester Crooks MD PCP: ALANNAH BENITO Status:ADM IN Certification of patient admission REQUIRED AT TIME OF ADMISSION. I CERTIFY THAT POST-HOSPITAL ECF SERVICES ARE REQUIRED TO BE GIVEN ON AN IN-PATIENT BASIS BECAUSE OF THE ABOVE NAMED PATIENT'S NEED FOR CUSTODIAL CARE ON A CONTINUING BASIS FOR THE [...] for rehabilitation, strengthening, prior to discharge to [facility]. * Debility - PT/OT. * Cognition [...] - Bupropion XL 150mg daily, stable chronic retirement use, GDR not recommended. * Alzheimer Disease [...] Dao ; Tanisha Henriquez ; Britany White HOT BLASTER Instructions Additional Instructions / Restrictions: Discharge to [facility] 11/29/2022, intermediate. Discharge Orders/Prescriptions Prescriptions: New [...] Crooks MD> Cosigner Signature (if applicable): CC: HOT BLASTERJavier Tafoya; JAYASHREE Henriquez; JAYASHREE White; Dr. Steven Dean DO; Dr. Fany Dao MD; ALANNAH BENITO ~ [facility] Work Phone: 1(993) 470-471305-10-2023 Discharge summary Author Valeriy [facility] November 26, 2022 9:09pm Note Date/Time November 26, 2022 9:05p [facility] Medical Records Department [address] [place] [address] Discharge Summary 11/26/222103 MR#: [id number] Acct: [id number] Name: MAXIME AMARAL Rep #:[id number] : 1935 87 From: Sylvester Crooks MD PCP: ALANNAH BENITO Status:ADM IN Location: [place] [address]- Providers Date of Admission: 11/13/22 Primary Care [...] for rehabilitation, strengthening, prior to discharge to [facility]. * Debility - PT/OT. * Cognition [...] - Bupropion XL 150mg daily, stable chronic exterminator helper use, GDR not recommended. * Alzheimer Disease [...] for rehabilitation, strengthening, prior to discharge to [facility]. Discharge to [facility] 11/29/2022, intermediate. Physical Exam Const alert [...] 11/26/22 14:47 HUSEYIN (Rec: 11/26/22 14:47 HUSEYIN [id number]) Nutrition Malnutrition Evidence of Malnutrition Exists Yes [...] and Uncontrolled pain Additional Instructions: Discharge to [facility] 11/29/2022, intermediate. Meaningful Use Info Meaningful Use Diagnoses (Choose all that apply): None applicable Discharge Plan Admission Admit Date/Time: 11/13/22 16:43 Primary Reason for Your Visit: Debility. Attending Provider: Sylvester Crooks Chi Primary Care Provider: ALANNAH BENITO Consulting Providers: Magnolia Tafoya ; Steven Dean ; Fany Dao ; Tanisha Henriquez ; Britany White HOT BLASTER Instructions Additional Instructions / Restrictions: Discharge to [facility] 11/29/2022, intermediate. Discharge Orders/Prescriptions Prescriptions: New [...] Dr. Sylvester Crooks MD; ALANNAH BENITO~ Signed [facility] Work Phone: 1(249) 883-373505-03-2023 History and physical note Author Dr. Crooks [facility] November 19, 2022 5:00pm Note Date/Time November 13, 2022 7:4 6pm [facility] Medical Records Department [address] [place] [address] History & Physical Exam 11/13/221939 MR#: [id number] Acct: [id number] Name: MAXIME AMARAL Rep #:[id number] : 1935 87 From: Sylvester Crooks MD PCP: ALANNAH BENITO Status:ADM IN Location: [facility] TCU10-1 HPI - General General Date of Admission: 11/13/22 Date of Service: 11/13/22 Chief Complaint: Here for rehabilitation. HPI Narrative 11/11/2022 MAXIME AMARAL, is a 87 Female who presents to [facility] Emergency Department with nausea, vomiting, diarrhea. 11/11/2022 [...] for rehabilitation, strengthening, prior to discharge to [facility]. [facility] Medical History Alzheimer's disease, unspecified [...] High Protein) 120 ml PO 4X/DAY ensure 04/27/23 [History Last Taken Unknown] Allergy/AdvReac Type Severity [...] for rehabilitation, strengthening, prior to discharge to [facility]. * Debility - PT/OT. * Cognition [...] - Bupropion XL 150mg daily, stable chronic retirement use, GDR not recommended. * Alzheimer Disease [...] loss - Rx Mirtazapine 7.5mg qhs. 11/19/22 170<Electronically signed by Sylvester Crooks MD> Cosigner Signature (if applicable): cc: Dr. Sylvester Crooks MD; ALANNAH BENITO ~* Signed [facility] Work Phone: 1(724) 887-905804-28-[address] Crooks [facility] November 14, 2022 7:27pm Note Date/Time November 14, 2022 3:5 3pm [facility] Medical Records Department [address] [place] [address] Progress Note - Pharmacy 11/14/22 1531 MR#: [id number] Acct: [id number] Name: MAXIME AMARAL Rep #:[id number] : 1935 87 From: Roselyn Garzon PCP: ALANNAH BENITO Status:ADM IN Location: TCU [place] [address] TCU RX Drug Regimen Review Subjective: TCU [...] <Electronically signed by Roselyn Garzon > Roselyn Serna Signature (if applicable): 11/14/221926 <Electronically signed by Sylvester Crooks MD> CC: ~ Signed [facility] Work Phone: [phone]) 755-751204-27-[address] Betancur [facility] November 13, 2022 2:06pm Note Date/Time November 13, 2022 1:5 6pm [facility] Medical Records Department [address] [place] [address] [place] [address] Transfer to [facility] MR#: [id number] Acct: [id number] Name: MAXIME AMARAL Rep #:[id number] : 1935 87 From: Bernice Betancur MD PCP: ALANNAH BENITO Status:ADM IN Certification of patient admission REQUIRED AT TIME OF ADMISSION. I CERTIFY THAT POST-HOSPITAL ECF SERVICES ARE REQUIRED TO BE GIVEN ON AN IN-PATIENT BASIS BECAUSE OF THE ABOVE NAMED PATIENT'S NEED FOR CUSTODIAL CARE ON A CONTINUING BASIS FOR THE CONDITION(S) FOR WHICH HE/SHE WAS RECEIVING IN-PATIENT HOSPITAL SERVICES PRIOR TO HIS/HER TRANSFER TO THE ECF. 11/13/22 1406<Electronically signed by Bernice Betancur MD> [...] with hypothyroidism and dementia who presented to [facility] 11/11/2022 with a sodium of 127 at [...] in before D/C Order can be placed): Longterm Facility 11/13/22 1406 <Electronically signed by Bernice Betancur MD> Cosigner Signature (if applicable): CC: Dr. Ryder Brody MD; ALANNAH BENITO ~ [facility] Work Phone: 1(556) 159-995804-26-[address] Betancur [facility] November 12, 2022 4:53pm Note Date/Time November 12, 2022 7:0 0am [facility] Medical Records Department [address] [place] [address] Progress Note - Hospitalist 11/12/22 0659 MR#: [id number] Acct: [id number] Name: MAXIME AMARAL Rep #:[id number] : 1935 87 From: Bernice Betancur MD PCP: ALANNAH BENITO Status:ADM IN Location: [place] [address] Reason for Visit Reason for Visit: Diagnoses [...] % (Auto) 59.4, Lymph % (Auto) 31.3, Hanson% (Auto) 7.4, Eos % (Auto) 0.9, Baso [...] Clarity Clear, Urine pH 6.0, Ur Specific [place] 1.010, Urine Protein Negative, Urine Glucose (UA) [...] % (Auto) Cancelled, Lymph % (Auto) Cancelled, Hanson % (Auto) Cancelled, Eos % (Auto) Cancelled, [...] Drop Cells Cancelled, Ovalocytes Cancelled, Stomatocytes Cancelled, Babcock-Hume Bodies Cancelled, [place] Cells Cancelled, Bite Cells Cancelled, Crenated Cell [...] % (Auto) 63.6, Lymph % (Auto) 26.7, Hanson % (Auto) 7.1, Eos % (Auto) 1.4, [...] Lovenox ordered. Charges/Coding Visit Charges Inpatient E&M: 37208 Subs Hosp L2 11/12/223 <Electronically signed by Bernice Betancur MD> Cosigner Signature (if applicable): CC: ~ Signed [facility] Work Phone: [phone]) 580-566104-26-[address] Ewing [facility] November 11, 2022 11:41pm Note Date/Time November 11, 2022 5:3 3pm [facility] Medical Records Department [address] [place] [address] Emergency Department Summary 11/11/22 MR#: [id number] Acct: [id number] Name: MAXIME AMARAL Rep #:[id number] : 1935 87 From: Nancy Ewing MD PCP: ALANNAH BENITO Status:ADM IN Location: [facility] QE577-7 HPI History of Present Illness Chief Complaint: Nausea/Vomiting/Diarrhea Detail of Chief Complaint: Generalized weakness Informant: patient and family Onset/Context/Timing Onset: Weeks Narrative Narrative: Patient presents via EMS from assisted living at [facility]. Son is at bedside and provides [...] body pain. She denies fever or cough. PFSH [facility] Medical History Alzheimer's disease, unspecified [...] Medical decision making narrative: Patient placed on traffic monitor specialist. EKG obtained to evaluate for cardiac [...] % (Auto) 59.4 Lymph % (Auto) 31.3 Hanson % (Auto) 7.4 Eos % (Auto) 0.9 [...] Color Urine Clarity Urine pH Ur Specific [place] Urine Protein Urine Glucose (UA) Urine Ketones Urine Occult Blood Urine Nitrite Urine Bilirubin Urine Urobilinogen Ur Leukocyte Esterase Urine RBC Urine WBC Ur Squamous Epith Cells Urine Bacteria Urine Mucus 11/11/22 19:47 WBC RBC Hgb Hct MCV MCH MCHC RDW Std Deviation RDW Coeff of Kristal Plt Count MPV Immature Gran % (Auto) Neut % (Auto) Lymph % (Auto) Hanson % (Auto) Eos % (Auto) Baso % [...] Clarity Clear Urine pH 6.0 Ur Specific [place] 1.010 Urine Protein Negative Urine Glucose (UA) [...] [Non-Staff] - Disposition Disposition: Acute Care Hospital [facility] What to do if you have Problems For any increased pain, shortness of breath, bleeding, nausea or vomiting, chestpain, or any unexpected problems, contact your Primary Care Provider. Call [facility] ([phone]) or report to the closest Emergency Room. Call 911 if necessary. 11/11/222340 <Electronically signed by Nancy Ewing MD> Cosigner Signature (if applicable): CC: ALANNAH BENITO ~ Signed [facility] Work Phone: [phone]) 672-613604-26-2023 History and physical note Author Dr. Brody [facility] November 11, 2022 10:26pm Note Date/Time November 11, 2022 9:3 3pm [facility] Medical Records Department [address] [facility] [place] [address] H&P Exam - Hospitalist 11/11/222132 MR#: [id number] Acct: [id number] Name: MAXIME AMARAL Rep #:[id number] : 1935 87 From: Ryder Brody MD PCP: ALANNAH BENITO Status:ADM IN Location: [facility] FV037-4 HPI - General General Date of Admission: 11/11/22 Date of Service: 11/11/22 Chief Complaint: Abnormal labs HPI Narrative MAXIME AMARAL, is a 87 F with a significant history of hypothyroidism and dementia; and who lives at assisted medicine facility at [facility] presenting to the emergency department with [...] the emergency department patient could not urinate. [facility] Medical History Alzheimer's disease, unspecified [...] % (Auto) 59.4, Lymph % (Auto) 31.3, Hanson % (Auto) 7.4, Eos % (Auto) 0.9, [...] Clarity Clear, Urine pH 6.0, Ur Specific [place] 1.010, Urine Protein Negative, Urine Glucose (UA) [...] Lovenox ordered. Charges/Coding Visit Charges Inpatient E&M: 67423 Init Hosp L3 11/11/222225 <Electronically signed by Ryder Brody MD> Cosigner Signature (if applicable): CC: Dr. Ryder Brody MD; ALANNAH BENITO~ Signed [facility] Work Phone: Evaluation note* Diagnosis Onset Date Resolution Status Declining functional status acute Hypokalemia acute Hyponatremia acute Weakness acute Hypertension chronic [facility] Work Phone: Evaluation note* Diagnosis Onset Date Resolution Status Declining functional status acute Hyponatremia acute Hypertension chronic Alzheimer disease acute Debility acute Dehydration acute Depression acute Diabetes mellitus acute Hyperlipidemia acute Hyponatremia acute Hypothyroidism acute Hypertension chronic [facility] Work Phone: Evaluation note* Diagnosis Onset Date Resolution Status Declining functional status acute Hyponatremia acute Hypertension chronic Alzheimer disease acute Debility acute Depression acute Diabetes mellitus acute Hyperlipidemia acute Hypothyroidism acute Hypertension chronic Dehydration resolved Hyponatremia resolved [facility] Work Phone: Evaluation noteNo assessment information available [facility] Work Phone: History and physical note Author Dr. Brody [facility] November 11, 2022 10:26pm Note Date/Time November 11, 2022 9:3 3pm [facility] Medical Records Department [address] [place] [address] H&P Exam - Hospitalist 11/11/222132 MR#: [id number] Acct: [id number] Name: MAXIME AMARAL Rep #:[id number] : 1935 87 From: Ryder Brody MD PCP: ALANNAH BENITO Status:ADM IN Location: [facility] DR068-4 HPI - General General Date of Admission: 11/11/22 Date of Service: 11/11/22 Chief Complaint: Abnormal labs HPI Narrative MAXIME AMARAL, is a 87 F with a significant history of hypothyroidism and dementia; and who lives at assisted medicine facility at [facility] presenting to the emergency department with [...] the emergency department patient could not urinate. [facility] Medical History Alzheimer's disease, unspecified [...] % (Auto) 59.4, Lymph % (Auto) 31.3, Hanson % (Auto) 7.4, Eos % (Auto) 0.9, [...] Clarity Clear, Urine pH 6.0, Ur Specific [place] 1.010, Urine Protein Negative, Urine Glucose (UA) [...] Lovenox ordered. Charges/Coding Visit Charges Inpatient E&M: 95556 Init Hosp L3 11/11/222225 <Electronically signed by Ryder Brody MD> Cosigner Signature (if applicable): CC: Dr. Ryder Brody MD; ALANNAH THONG~ Signed [facility] Work Phone: Hospital Discharge instructions Additional Instructions CT head face and neck negative. Right shoulder x-ray negative. 7 sutures placed. Have removed in 5 to 7 days.[facility] Work Phone: Reason for referral (narrative)No reason for referral information availableWPremier Health [facility] Work Phone: Chief Complaint and Reason for [...] Complaint MONTHLY EXAM UNWITNESSED FALL MONTHLY EXAM CUSTODIAL LAB WORK MONTHLY EXAM NURISNG HOME LABWORK Chief Complaint MONTHLY EXAM MONTHLY EXAM MONTHLY EXAM FALL Chief Complaint MONTHLY EXAM MONTHLY EXAM FALL LABWORK Chief Complaint Admit Date NEW CONCERN June 21, 2024 5 :08pm CUSTODIAL LAB WORK July 11 5:00am CUSTODIAL LAB WORK August 23, 2024 5:00am MONTHLY EXAM September 01, 2024 11:29am LABWORK October 03, 2024 5:0 0am Chief Complaint Admit Date CUSTODIAL LAB WORK July 11 5:00am CUSTODIAL LAB WORK August 23, 2024 5:00am MONTHLY EXAM September 01, 2024 11:29am MONTHLY EXAM September 20, 2024 3:13 pm LABWORK October 03, 2024 5:0 0am CUSTODIAL LAB WORK October 06, 2024 5 :00am Chief Complaint Admit Date CUSTODIAL LAB WORK July 11 5:00am CUSTODIAL LAB WORK August 23, 2024 5:00am MONTHLY EXAM September 01, 2024 11:29am MONTHLY EXAM September 20, 2024 3:13 pm LABWORK October 03, 2024 5:0 0am CUSTODIAL LAB WORK October 06, 2024 5 :00am LABWORK October 10, 2024 5:0 0am Chief Complaint Admit Date CUSTODIAL LAB WORK July 11 5:00am CUSTODIAL LAB WORK August 23, 2024 5:00am MONTHLY EXAM September 01, 2024 11:29am MONTHLY EXAM September 20, 2024 3:13 pm LABWORK October 03, 2024 5:0 0am CUSTODIAL LAB WORK October 06, 2024 5 :00am LABWORK October 10, 2024 5:0 0am FALL, LACERATION November 03, 2024 9:0 6pm Chief Complaint Admit Date CUSTODIAL LAB WORK July 11 5:00am CUSTODIAL LAB WORK August 23, 2024 5:00am MONTHLY EXAM September 01, 2024 11:29am MONTHLY EXAM September 20, 2024 3:13 pm LABWORK October 03, 2024 5:0 0am CUSTODIAL LAB WORK October 06, 2024 5 :00am LABWORK October 10, 2024 5:0 0am CUSTODIAL LAB WORK October 17, 2024 5 :00am FALL, LACERATION November 03, 2024 9:0 6pm Chief Complaint Admit Date MONTHLY EXAM September 01, 2024 11:29am MONTHLY EXAM September 20, 2024 3:13 pm LABWORK October 03, 2024 5:0 0am CUSTODIAL LAB WORK October 06, 2024 5 :00am LABWORK October 10, 2024 5:0 0am CUSTODIAL LAB WORK October 17, 2024 5 :00am MONTHLY EXAM October 21, 2024 1:47 pm FALL, LACERATION November 03, 2024 9:0 6pm CUSTODIAL LAB WORK November 14, 2024 4 :00am CUSTODIAL LAB WORK November 22, 2024 5:00 am CUSTODIAL LAB WORK December 13, 2024 5:0 0am Chief Complaint Admit Date CUSTODIAL LAB WORK August 23, 2024 5:00am MONTHLY EXAM September 01, 2024 11:29am MONTHLY EXAM September 20, 2024 3:13 pm LABWORK October 03, 2024 5:0 0am CUSTODIAL LAB WORK October 06, 2024 5 :00am LABWORK October 10, 2024 5:0 0am CUSTODIAL LAB WORK October 17, 2024 5 :00am MONTHLY EXAM October 21, 2024 1:47 pm FALL, LACERATION November 03, 2024 9:0 6pm CUSTODIAL LAB WORK November 14, 2024 4 :00am CUSTODIAL LAB WORK November 22, 2024 5:00 am Chief Complaint Admit Date CUSTODIAL LAB WORK October 06, 2024 5 :00am LABWORK October 10, 2024 5:0 0am CUSTODIAL LAB WORK October 17, 2024 5 :00am MONTHLY EXAM October 21, 2024 1:47 pm FALL, LACERATION November 03, 2024 9:0 6pm CUSTODIAL LAB WORK November 14, 2024 4 :00am CUSTODIAL LAB WORK November 22, 2024 5:00 am MONTHLY EXAM December 06, 2024 4:15p m CUSTODIAL LAB WORK December 13, 2024 5:0 0am CUSTODIAL LAB WORK December 26, 2024 4:0 0am Chief Complaint Admit Date CUSTODIAL LAB WORK October 06, 2024 5 :00am LABWORK October 10, 2024 5:0 0am CUSTODIAL LAB WORK October 17, 2024 5 :00am MONTHLY EXAM October 21, 2024 1:47 pm FALL, LACERATION November 03, 2024 9:0 6pm CUSTODIAL LAB WORK November 14, 2024 4 :00am CUSTODIAL LAB WORK November 22, 2024 5:00 am MONTHLY EXAM December 06, 2024 4:15p m CUSTODIAL LAB WORK December 13, 2024 5:0 0am CUSTODIAL LAB WORK December 26, 2024 4:0 0am MONTHLY EXAM January 03, 2025 6:30 pm Advance Directives No Advanced Directives Records Found Advance Directive Response Recorded Date/ Time Name of Medical Power of Director Of Video Analytics ? November 11, 2022 4:49pm Living Will Yes November 11, 2022 4:49pm Power of Director Of Video Analytics Yes November 11 4:49pm Advance Directive Response Recorded Date/ Time Name of Medical Power of Director Of Video Analytics Matilda Pritchett November 11, 2022 10:59pm Living Will Yes November 11, 2022 10:59pm Power of Director Of Video Analytics Yes November 11 10:59pm Advance Directive Response Recorded Date/ Time Name of Medical Power of Director Of Video Analytics Matilda Pritchett November 11, 2022 10:59pm Name of Medical Power of Director Of Video Analytics christine Pritchett November 14, 2022 10:44am Living Will Yes November 14, 2022 10:44am Power of Director Of Video Analytics Yes November 14 10:44am Advance Directive Response Recorded Date/ Time Living Will Yes November 14, 2022 10:44am Power of Director Of Video Analytics Yes November 14 10:44am Advance Directive Response Recorded Date/ Time Name of Medical Power of Director Of Video Analytics NYA MORRIS July 25, 2023 4:49am Living Will Yes July 25 4:49am Power of Director Of Video Analytics Yes July 25 4:49am Advance Directive Response Recorded Date/ Time Living Will Yes November 03, 2024 9:16pm Do you have a Healthcare Power of Director Of Video Analytics? Yes November 03, 2024 9:16pm Name of Medical Power of Director Of Video Analytics Daniel Amaral November 03, 2024 9:16pm Summary [...] 01, 2024 End: September 01, 2024 KARLEY Clemnes Attending Provider Active St art: September 01, [...] 2024 End: October 21, 2024 Poppy Mccracken HOT BLASTER, HOT BLASTER-C Attending Provider Active Start: October 21, 2024 [...] Provider Active Start: November 22, 2024 Pete ROBERST MD Attending Provider Active Start: November 22, 2024 Team Status: Active Member Role Status Dates Dr. Pete Payne MD Primary Care Provider Active Start: December 13, 2024 Pete ROBERTS MD Attending Provider Active Start: December 13, 2024 Team Status: Active Member Role Status Dates Dr. Mariano Dao MD Family Provider Active [facility] Primary Care Provider Active Team Status: Active Member Role Status Dates Dr. Nancy Ewing MD Emergency Provider Active [facility] Primary Care Provider Active Dr. Ryder Brody MD Admit Provider, Attending Provider, Other Provider Active Team Status: Active Member Role Status Dates Dr. Nancy Ewing MD Emergency Provider Active [facility] Primary Care Provider Active Dr. Ryder Brody MD Admit Provider, Attending Pro vider Active Team Status: Active Member Role Status Dates Dr. Nancy Ewing MD Emergency Provider Active [facility] Primary Care Provider Active Dr. Ryder Brody MD Admit Provider, Other Provide r Active Dr. Bernice Betancur MD Attending Provider, Other Provid er Active Team Status: Inactive Member Role Status Dates Dr. Nancy Ewing MD Emergency Provider Active [facility] Primary Care Provider Active Dr. Ryder Brody MD Admit Provider, Other Provide r Active Dr. Bernice Betancur MD Attending Provider Active Team Status: Active Member Role Status Dates ALANNAH, [facility] Primary Care Provider Active Dr. Sylvester Crooks MD Admit Provider, Attending Provid er Active Magnolia Tafoya , HOT BLASTER-C Other Provider Active Dr. Steven Dean DO Other Provider Active Dr. Fany Dao MD Other Provider Active Tanisha Henriquez NP-C Other Provider Active Britany White NP, HOT BLASTER-C Other Provider Active Team Status: Inactive Member Role Status Dates ALANNAH, [facility] Primary Care Provider Active Dr. Sylvester Crooks MD Attending Provider, Referring Pr ovider Active Team Status: Inactive Member Role Status Dates ALANNAH, [facility] Primary Care Provider Active Dr. Sylvester Crooks MD Admit Provider, Attending Provid er Active Magnolia Tafoya , HOT BLASTER-C Other Provider Active Dr. Steven Dean DO Other Provider Active Dr. Fany Dao MD Other Provider Active Tanisha Henriquez HOT BLASTER-C Other Provider Active Britany White NP, HOT BLASTER-C Other Provider Active Team Status: Active Member Role Status Dates Dr. Mariano Dao MD Family Provider Active Dr. Pete Payne MD Primary Care Provider Active Team Status: Inactive Member Role Status Dates Out [facility] Doctor Primary Care Provider Active Dr. Pete Payne MD Attending Provider Active Team Status: Inactive Member Role Status Dates Out [facility] Doctor Primary Care Provider Active Poppy Mccracken HOT BLASTER, HOT BLASTER-C Attending Provider Active Team Status: Inactive Member Role Status Dates Out [facility] Doctor Primary Care Provider Active Pete ROBERTS [...] MD Primary Care Provider Active Poppy Mccracken HOT BLASTER, HOT BLASTER-C Attending Provider Active Team Status: Inactive Member [...] 2024 End: June 21, 2024 Poppy Mccracken HOT BLASTER, HOT BLASTER-C Attending Provider Active Start: June 21, 2024 [...] Active Member Role Status Dates Dr. Pete Panye MD Primary Care Provider Active Start: October [...] 2024 End: October 21, 2024 Poppy Mccracken HOT BLASTER, HOT BLASTER-C Attending Provider Active Start: October 21, 2024 [...] 2025 End: January 03, 2025 Poppy Mccracken NP, HOT BLASTER-C Attending Provider Active Start: January 03, 2025 [...] ized section and content) DATE CREATED AUTHOR 02/13/2025 [facility] FOR RECORDS PERTAINING TO PATIENTS WHO [...] BE BASED ON THE PRIMARY CLINICAL RECORDS. [employer]. provides no warranty or guarantee of the accuracy or completeness of information in this document.
[2025-02-21 10:23] LABS: Vitamin D,25 Hydroxy 36.4 ng/mL (30-100)
[2025-02-21 11:39] LABS: Cholesterol 120 mg/dL (<=200); Low Density Lipoprotein Calc. 36 mg/dL; Triglycerides 245 mg/dL; Very Low Density Lipoprotein 49 mg/dL (5-40); cholesterol:hdl ratio screen 3.46
== END ==
LOC: OLS.WHLCAR 05:00
PROVIDERS: PCP Internal Medicine; Visit Provider Internal Medicine
DX: E11.22 Type 2 diabetes mellitus with diabetic chronic kidney disease (principal); N18.9 Chronic kidney disease, unspecified; I12.9 Hypertensive chronic kidney disease with stage 1 through stage 4 chronic kidney disease, or unspecified chronic kidney disease; G30.9 Alzheimer's disease, unspecified; F02.A3 Dementia in other diseases classified elsewhere, mild, with mood disturbance; E78.5 Hyperlipidemia, unspecified
CPT/HCPCS: 36415; 80061; 82306; 83036

== ENCOUNTER → 2025-03-15 | Outpatient (REF) | payer MEDICARE, MEDICAID, SELFPAY ==
--- OUTSIDE RECORDS SUMMARY | 2025-03-15 04:27 | XMS RPT_ITS | CCD ---
Author Organization [facility] Care Team Providers Care Director Digital Analytics Name Role Phone Dr. Nancy Ewing Emergency Provider [phone] THONG ALANNAH Primary Care Provider Unavail able Dr. Ryder Brody Admit Provider Dr. Ryder Brody Attending Provider Dr. Ryder Brody Other Provider ALANNAH BENITO Primary Care Provider Dr. Bernice Betancur Attending Provider Dr. Bernice Betancur Other Provider [facility] Doctor, Out of Primary Care Provider Silvia Mccracken [employer] FIELD COORDINATOR, [employer] FIELD COORDINATOR-C Poppy Attending Provider Dr. Pete Dietz Attending Provider Dr. Pete Payne Primary Care Provider Dr. Pete Payne Attending Provider Kaykay [employer] FIELD COORDINATOR, [employer] FIELD COORDINATOR-C Poppy Attending Provider Dr. Pete Dietz Primary Care Provider Dr. Pete Payne Attending Provider Kaykay [employer] FIELD COORDINATOR, [employer] FIELD COORDINATOR-C Poppy Attending Provider Dr. Pete Dietz Primary Care Provider Dr. Pete Payne Attending Provider Kaykay [employer] FIELD COORDINATOR, [employer] FIELD COORDINATOR-C Poppy Attending Provider Elmer SAMUELS, Dr. Freeman Primary Care Provider Kaykay [employer] FIELD COORDINATOR-C, Poppy Attending Provider Pete Payne MD Attending Provider Unavaila Mateo Romero Attending Provider Elmer SAMUELS, Dr. Freeman Primary Care Provider Elmer SAMUELS, Dr. Freeman Attending Provider [phone] Cheyanne DRISCOLL, Dr. Amezquita Emergency Provider Elmer SAMUELS, Dr. Freeman Primary Care Provider Pete Payne MD Attending Provider Unavaila naun Mccracken [employer] FIELD COORDINATOR-CPoppy Attending Provider Cheyanne DRISCOLL, Dr. Amezquita Attending Provider Pete Payne MD Referring Provider Unavaildeisy Payne MD, Dr. Freeman Primary Care Provider Pete Payne MD Attending Provider Unavaila Dr. Pete Nolan MD Primary Care Provider Pete Payne MD Attending Provider Unavaila naun Payne MD, Dr. Freeman Attending Provider [phone] Elmer SAMUELS, Dr. Freeman Primary Care Provider Pete Payne MD Attending Provider Unavaila ble Kaykay [employer] FIELD COORDINATOR-C, Poppy Attending Provider Oleriteshe OLS, Efewongbe Attending Unavailabl e Oleghe, Efewongbe Primary Care Unavailable Oleghe OLS, Efewongbe Referring Unavailabl e Oleghe OLS, Efalexisongbe Attending Unavailabl e Oleghe, Efewongbe Primary Care Unavailable Oleghe OLS, Efewongbe Referring Unavailabl e Oleghe, Efewongbe Primary Care Unavailable Oleghe OLS, Efewongbe Attending Unavailabl e Oleghe, Efewongbe Primary Care Unavailable Oleghe OLS, Efewongbe Attending Unavailabl e Oleghe, Efewongbe Primary Care Unavailable Oleghe OLS, Efalexisongbe Attending Unavailabl e Oleghe, Efewongbe Primary Care Unavailable Oleghe, Efewongbe Attending Unavailable Oleghe, Efewongbe Primary Care Unavailable T[place]ton [employer] FIELD COORDINATOR, Poppy Attending Unavailable Oleghe, Efewongbe Primary Care Unavailable Oleghe OLS, Efewongbe Attending Unavailabl e Oleghe, Efewongbe Primary Care Unavailable Alirio Edward [...] e Oleghe, Efewongbe Primary Care Unavailable [place]ton [employer] FIELD COORDINATOR, Poppy Attending Unavailable Oleghe, Efewongbe Primary Care Unavailable Oleghe, Efewongbe Primary Care Unavailable Oleghe, Efewongbe Attending Unavailable [place] [employer] FIELD COORDINATOR, Poppy Attending Unavailable Oleghe, Efewongbe Primary Care Unavailable Oleghe, Efewongbe Attending Unavailable Oleghe, Efewongbe Primary Care Unavailable [place] [employer] FIELD COORDINATOR, Poppy Attending Unavailable Oleghe, Efewongbe Primary Care Unavailable Oleghe, Efewongbe Primary Care Unavailable Oleghe, Efewongbe Attending Unavailable Oleghe, Efewongbe Primary Care Unavailable Oleghe OLS, Efewongbe Attending Unavailabl e Allergies Allergy Classification Reported Allergen(s) Allergy Type Date of Onset Reaction(s) Facility (20 sources) Penicillins Propensity to adverse reactions 3 Diarrhea [facility] (1 source) Penicillins Drug allergy (disorder) 5 [facility] Repository Medications Current Medications Medication Drug Class(es) Dates Sig (Normalized) Sig (Original) acetaminophen 500 mg oral tablet (18 sources) Start: 11-26-2022 take 2 tablets by [...] 2022 11:00pm atorvastatin 10 mg oral tablet (20 sources) HMG-CoA Reductase Inhibitor Start: 11-11-2022 take [...] DAILY November 13, 2022 4:51pm mood Cholecalciferol (20 sources) Vitamin D Start: 11-11-2022 Cholecalciferol (Vitamin [...] 2022 12:00am citalopram 10 mg oral tablet (13 sources) Serotonin Reuptake Inhibitor Start: 07-25-2023 take [...] Plus High Protein) 0.08 gram-1.5 kcal/mL liquid (18 sources) Start: 11-13-2022 Food Supplemt, Lactose-Reduced (Ensure [...] 4:51pm levothyroxine sodium 0.025 mg oral tablet (20 sources) l-Thyroxine Start: 02-08-2017 take 1 tablet by mouth once daily Levothyroxine 25 MCG tablet Active 25 ug PO DAILY February 08, 2017 12:00am THYROID metFORMIN hydrochloride 500 mg oral tablet (20 sources) Biguanide Start: 11-10-2013 take 1 tablet by mouth once daily Metformin 500 MG tablet Active 500 mg PO DAILY November 10, 2013 12:00am DIABETES mirtazapine 15 mg oral tablet (18 sources) Start: 11-26-2022 take 7.5 mg by mouth at bedtime Mirtazapine 15 mg Tablet Active 7.5 mg PO AT BEDTIME 0 0 November 26, 2022 12:00am Start: 11-26-2022 take 7.5 mg by mouth at bedtim e Mirtazapine Active 7.5 MG PO AT BEDTIME 0 November 25, 2022 11:00pm propranolol hydrochloride 20 mg oral tablet (20 sources) beta-Adrenergic Nathanael Start: 11-10-2013 take 1 tablet by mouth once daily Propranolol 20 MG tablet Active 20 mg PO DAILY November 10, 2013 12:00am tremors raloxifene hydrochloride 60 mg oral tablet (19 sources) Estrogen Agonist/Antagonist Start: 11-12-2022 take 1 [...] Plus High Protein) 0.08 gram-1.5 kcal/mL Liquid (19 sources) Start: 11-13-2022 End: 11-13-2022 Food Supplemt, [...] 12:00am ondansetron 4 mg disintegrating oral tablet (20 sources) Serotonin-3 Receptor Antagonist Start: 01-18-2014 End: 02-09-2017 take 1 tablet by mouth every eight hours as needed for nausea Ondansetron 4 MG tablet Discontinued 4 mg PO EVERY 8 HOURS NEEDED as needed for Nausea January 18, 2014 12:00am February 09, 2017 9:05am traMADol hydrochloride 50 mg oral tablet (20 sources) Opioid Agonist Start: 06-04-2018 End: 06-07-2018 [...] [Hyperlipidemia, unspecified] 11-13-2022 Chronic E Codes: Fall (13 sources) Accidental fall ; Translations: [Unspecified fall, initial encounter] 07-25-2023 Episodic Esophageal disorders (20 sources) Gastroesophageal reflux disease; Translations: [Gastro-esophageal reflux [...] disorder; Translations: [Depression] 11-13-2022 Chronic Noninfectious gastroenteritis (20 sources) Gastroenteritis; Translations: [Noninfective gastroenteritis and colitis, unspecified] 02-09-2017 Episodic Osteoarthritis (20 sources) Osteoarthritis of left knee joint; Translations: [Unilateral primary osteoarthritis, left knee] 06-05-2018 Chronic Osteoporosis (20 sources) Osteoporosis; Translations: [Age-related osteoporosis without current pathological fracture] 02-09-2017 Chronic Other injuries and conditions due to external causes (20 sources) Closed injury of head; Translations: [Unspecified injury of head, initial encounter] 01-20-2023 Episodic Other injuries and conditions due to external causes (16 sources) Contusion of multiple sites; Translations: [Unspecified multiple injuries, initial encounter] 01-20-2023 Episodic Other non-traumatic joint disorders (13 sources) Knee joint effusion; Translations: [Effusion, unspecified [...] Open wounds of head; neck; and trunk (9 sources) Facial laceration ; Translations: [Laceration without foreign body of other part of head, initial encounter] Onset: 11-08-2024 11-04-2024 Episodic Results Test Name Value Interpretation Reference Range Facility Calculated very low density lipoprotein (VLDL) cholesterol measurementOrdered By: Pete Payne on 02-21-2025 Calculated very low density lipoprotein (VLDL) cholesterol measurement 49 mg/dL High 5-40 [facility] Hemoglobin A1c percentageOrd ered By: Pete Payne on 02-21-2025 HbA1c (Bld) [Mass fraction] 7.2 % High <5.7 [facility] Comment on above: Normal < 5.7 % Predi abetic 5.7 - 6.4 % Diabetic >or= 6.5 % Please note range changes. LDL calc ser/plasOrdered By: Pete Payne on 02-21-2025 Cholesterol in LDL [Mass/Vol] 36 mg/dL [facility] Comment on above: Tkqfizgmmy=301-256 m g/dL & Higher Ueie=347 mg/dL or greaterFriedwald Equation for LDL-C Screening total cholesterol/ high density lipoprotein (HDL) cholesterol ratioOrdered By: Pete Payne on 02-21-2025 Cholesterol.total/Choles terol in HDL [Mass ratio] 3.46 {ratio} [facility] Serum or plasma cholesterol in HDL measurement (mass/volume)Ordered By: Pete Payne on 02-21-2025 Cholesterol in HDL [Mass/Vol] 35 mg/dL Low >40 [facility] Comment on above: National Cholesterol Education Program (NCEP) guidelines:<40 mg/dL: Low HDL-cholesterol (major risk factor for CHD)>= 60 mg/dL: High HDL-cholesterol (negative risk factor for CHD)HDL-cholesterol is affected by a number of factors, e.g. smoking, exercise, hormones, sex and age. Serum or plasma cholesterol measurement (mass/volume)Ordered By: Pete Payne on 02-21-2025 Cholesterol [Mass/Vol] 120 mg/dL <201 [facility] Comment on above: Cholesterol level, D esirable <200 mg/dLBorderline high cholesterol 200-239 mg/dLHigh cholesterol >=240 mg/dLRecommendations of the NCEP Adult Treatment Panel for the following risk-cutoff thresholds for the [place] population. Triglycerides measurementOrd ered By: Pete Payne on 02-21-2025 Triglyceride [Mass/Vol] 245 mg/dL High <199 [facility] Comment on above: The drugs N-Acetylcy steine and Metamizole may falsely depress this assay. Normal range: <150 mg/dLBorderline High: 150-199 mg/dLHigh: 200-499 mg/dLVery High: >500 mg/dL TSH DL <= 0.005 mIU/L QnOrde red By: Pete Payne on 02-06-2025 TSH Qn 2.850 uIU/mL 0.300-4.200 [facility] Absolute lymphocyte countOrd ered By: Pete Payne on 01-13-2025 Lymphocytes Auto (Unsp spec) [#/Vol] 2.32 10*3/uL 0.83-4.51 [facility] Absolute neutrophil countOrd ered By: alexispilot grovesudarshan Payne on 01-13-2025 Neutrophils (Bld) [#/Vol] 5.2 10*3/uL 2.0-7.7 [facility] Automated lymphocyte count a s percentage of total leukocytesOrdered By: Pete Payne on 01-13-2025 Lymphocytes/100 WBC Auto (Unsp spec) 27.3 % 19-41 [facility] Basophil percentageOrdered B y: Pete Payne on 01-13-2025 Basophils/100 WBC (Bld) 0.9 % 0-1 [facility] Eosinophil percentageOrdered By: geena Payne on 01-13-2025 Eosinophils/100 WBC (Bld) 3.4 % 0-5 [facility] Erythrocyte distribution wid th ratioOrdered By: Pete Payne on 01-13-2025 Erythrocyte distribution width (RBC) [Ratio] 13.2 % 11.6-14.6 [facility] Erythrocyte distribution wid th standard deviationOrdered By: Saturninopilot grovesudarshan Payne on 01-13-2025 Erythrocyte distribution width (RBC) [Ratio] 45.4 fl High 35.1-43.9 [facility] Hematocrit Auto (Bld) [Volum e fraction]Ordered By: Pete Payne on 01-13-2025 Hematocrit (Bld) [Volume fraction] 36.0 % Low 37-47 [facility] Hemoglobin measurementOrdere d By: Pete Payne on 01-13-2025 Hemoglobin (Bld) [Mass/Vol] 11.4 g/dL Low 12.0-15.0 [facility] Immature granulocytes/100 WB C Auto (Bld)Ordered By: alexispilot grovesudarshan Payne on 01-13-2025 Immature granulocytes/100 WBC (Bld) 0.500 % 0.0-0.9 [facility] Comment on above: IG% - Immature Granu locytes (promyelocytes, myelocytes and metamyelocytes) > 1% indicates that a LEFT SHIFT is Present. MCV (mean corpuscular volume ) determinationOrdered By: Pete Payne on 01-13-2025 MCV (RBC) [Entitic vol] 93.3 fL 81-99 [facility] Mean corpuscular hemoglobin (MCH) determinationOrdered By: Pete Payne on 01-13-2025 MCH (RBC) [Entitic mass] 29.5 pg 27.0-32.0 [facility] Mean corpuscular hemoglobin concentration (MCHC) determinationOrdered By: Pete Payne on 01-13-2025 MCHC (RBC) [Mass/Vol] 31.7 g/dL Low 32-36 [facility] Mean platelet volume determi nationOrdered By: Pete Payne on 01-13-2025 Platelet mean volume (Bld) [Entitic vol] 10.8 fL 6.2-12.0 [facility] Monocyte percentageOrdered B y: Pete Payne on 01-13-2025 Monocytes/100 WBC (Bld) 6.9 % 0-10 [facility] Neutrophil percentageOrdered By: Pete Beltrane on 01-13-2025 Neutrophils/100 WBC (Bld) 61.0 % 47-70 [facility] Nucleated red blood cell per centageOrdered By: Pete Payne on 01-13-2025 Nucleated RBC/100 WBC (Bld) [Ratio] 0 % 0-5 [facility] Platelet countOrdered By: Celeste Payne on 01-13-2025 Platelets (Bld) [#/Vol] 316 10*3/uL 150-450 [facility] RBC Auto (Bld) [#/Vol]Ordere d By: Pete Payne on 01-13-2025 RBC (Bld) [#/Vol] 3.86 10*6/uL Low 4.2-5.4 [facility] White blood cell (WBC) count Ordered By: Pete Payne on 01-13-2025 WBC (Bld) [#/Vol] 8.5 10*3/uL 4.4-11.0 [facility] TSH DL <= 0.005 mIU/L QnOrde red By: Pete Payne on 12-26-2024 TSH Qn 4.080 uIU/mL 0.300-4.200 [facility] Absolute lymphocyte countOrd ered By: Pete Payne on 12-13-2024 Lymphocytes Auto (Unsp spec) [#/Vol] 2.57 10*3/uL 0.83-4.51 [facility] Absolute neutrophil countOrd ered By: Pete Payne on 12-13-2024 Neutrophils (Bld) [#/Vol] 5.1 10*3/uL 2.0-7.7 [facility] Automated lymphocyte count a s percentage of total leukocytesOrdered By: Pete Payne on 12-13-2024 Lymphocytes/100 WBC Auto (Unsp spec) 29.2 % 19-41 [facility] Basophil percentageOrdered B y: Pete Payne on 12-13-2024 Basophils/100 WBC (Bld) 0.8 % 0-1 [facility] Eosinophil percentageOrdered By: [facility] Pfeifferriteshandrew on 12-13-2024 Eosinophils/100 WBC (Bld) 3.5 % 0-5 [facility] Erythrocyte distribution wid th ratioOrdered By: [facility] Kenterllandrew on 12-13-2024 Erythrocyte distribution width (RBC) [Ratio] 13.4 % 11.6-14.6 [facility] Erythrocyte distribution wid th standard deviationOrdered By: [facility] Beltranandrew on 12-13-2024 Erythrocyte distribution width (RBC) [Ratio] 46.0 fl High 35.1-43.9 [facility] Hematocrit Auto (Bld) [Volum e fraction]Ordered By: [facility] Payne on 12-13-2024 Hematocrit (Bld) [Volume fraction] 33.0 % Low 37-47 [facility] Hemoglobin measurementOrdere d By: [facility] Payne on 12-13-2024 Hemoglobin (Bld) [Mass/Vol] 10.6 g/dL Low 12.0-15.0 [facility] Immature granulocytes/100 WB C Auto (Bld)Ordered By: [facility] Pfeifferandrew on 12-13-2024 Immature granulocytes/100 WBC (Bld) 0.300 % 0.0-0.9 [facility] Comment on above: IG% - Immature Granu locytes (promyelocytes, myelocytes and metamyelocytes) > 1% indicates that a LEFT SHIFT is Present. MCV (mean corpuscular volume ) determinationOrdered By: Pete Payne on 12-13-2024 MCV (RBC) [Entitic vol] 94.0 fL 81-99 [facility] Mean corpuscular hemoglobin (MCH) determinationOrdered By: [facility] Kentrellandrew on 12-13-2024 MCH (RBC) [Entitic mass] 30.2 pg 27.0-32.0 [facility] Mean corpuscular hemoglobin concentration (MCHC) determinationOrdered By: [facility] Kentrellandrew on 12-13-2024 MCHC (RBC) [Mass/Vol] 32.1 g/dL 32-36 [facility] Mean platelet volume determi nationOrdered By: Pete Payne on 12-13-2024 Platelet mean volume (Bld) [Entitic vol] 9.9 fL 6.2-12.0 [facility] Monocyte percentageOrdered B y: Celestealexiskeishasudarshan Pfeifferriteshandrew on 12-13-2024 Monocytes/100 WBC (Bld) 8.1 % 0-10 [facility] Neutrophil percentageOrdered By: geena Payne on 12-13-2024 Neutrophils/100 WBC (Bld) 58.1 % 47-70 [facility] Nucleated red blood cell per centageOrdered By: alexispilot grovesudarshan Payne on 12-13-2024 Nucleated RBC/100 WBC (Bld) [Ratio] 0 % 0-5 [facility] Platelet countOrdered By: Celeste alexisanne Payne on 12-13-2024 Platelets (Bld) [#/Vol] 309 10*3/uL 150-450 [facility] RBC Auto (Bld) [#/Vol]Ordere d By: Pete Payne on 12-13-2024 RBC (Bld) [#/Vol] 3.51 10*6/uL Low 4.2-5.4 [facility] White blood cell (WBC) count Ordered By: Pete Payne on 12-13-2024 WBC (Bld) [#/Vol] 8.8 10*3/uL 4.4-11.0 [facility] Hemoglobin A1c percentageOrd ered By: Pete Payne on 11-22-2024 HbA1c (Bld) [Mass fraction] 7.0 % High <5.7 [facility] Comment on above: Normal < 5.7 % Predi abetic 5.7 - 6.4 % Diabetic >or= 6.5 % Please note range changes. TSH DL <= 0.005 mIU/L QnOrde red By: Pete Payne on 11-14-2024 TSH Qn 3.270 uIU/mL 0.300-4.200 [facility] Brain/Head without Contrasto n 11-03-2024 Brain/Head without Contrast [facility] Imaging Services [address] [place] [address] Brain/Head without Contrast MR#: [id number] Acct: [id number] Name: MAXIME AMARAL Rep #: [id number] : 1935 F 89 From: Davin Sotelo DO PCP: Dr. Pete Payne MD Status: REG ER Study: Brain/Head without Contrast Date of Exam: 10/18 02/10 Exam# [id number] Ordering Dr: Alirio Edward DO PROCEDURE: BRAIN/HEAD [...] NO ACUTE FINDINGS. Reading Location: [facility] CC: Dr. Pete Payne MD; Dr. Alirio Edward DO Superintendent Maintenance: Signed Normal [facility] Emergency Department Summary on 11-03-2024 Emergency Department Summary [facility] Medical Records Department [address] [place] [address] Emergency Department Summary 11/03/24 MR#: [id number] Acct: [id number] Name: MAXIME AMARAL Rep #: [id number] : 1935 89 From: Alirio Patel PCP: Dr. Pete Payne MD Status:REG ER Location: ED HPI HPI - Fall History of Present Illness Chief Complaint: Fall Informant: patient and family Narrative Narrative: Patient brought in by EMS from [facility] witnessed fall head injury. Patient [...] paperwork. She has baseline per son. [facility] Medical History Dry eye syndrome of [...] 10 mg PO QHS #0 tabs 11/26/22 01/0 12/10 Rx mirtazapine 15 mg tablet 7.5 mg [...] for te (more content not included)... Normal [facility] Shoulder min 2 Viewson 11-03 Shoulder min 2 Views [facility] Services [address] [place] [address] Shoulder min 2 Views MR#: [id number] Acct: [id number] Name: MAXIME AMARAL Rep #: [id number] : 1935 F 89 From: Davin Sotelo DO PCP: Dr. Pete Payne MD Status: REG ER Study: Shoulder min 2 Views Date of Exam: 11/03/24 Exam# [id number] Ordering Dr: Alirio Edward DO PROCEDURE: SHOULDER MIN 2 VIEWS 11/03/2024 REASON FOR EXAM: INJURY TECHNIQUE: 3 view(s) of the right shoulder COMPARISON: None FINDINGS: Bones: No acute fracture. Joints: Normal alignment of the acromioclavicular and glenohumeral joints. Soft tissues: Soft tissues are unremarkable. Other: RAD/Shoulder min 2 Views IMPRESSION: NO ACUTE FRACTURE OR DISLOCATION. Reading Location: [facility] CC: Dr. Pete Payen MD; Dr. Alirio Edward DO Superintendent Maintenance: Signed Normal [facility] Sinus/Facial Boneon 11-04-19 Sinus/Facial Bone [facility] Imaging Services [address] [place] [address] Sinus/Facial Bone MR#: [id number] Acct: [id number] Name: MAXIME AMARAL Rep #: [id number] : 1935 F 89 From: Davin Sotelo DO PCP: Dr. Pete Payne MD Status: REG ER Study: Sinus/Facial Bone Date of Exam: 11/03/24 Exam# [id number] Ordering Dr: Alirio Edward DO PROCEDURE: SINUS/FACIAL [...] supraorbital region. No acute fracture. [facility] CC: Dr. Pete Payne MD; Dr. Alirio Edward DO Superintendent Maintenance: Signed Normal [facility] Spine Cervical without Contr ason 11-03-2024 Spine Cervical without Contras [facility] Services [address] [place] [address] Spine Cervical without Contras MR#: [id number] Acct: [id number] Name: MAXIME AMARAL Rep #: [id number] : 1935 F 89 From: Davin Sotelo DO PCP: Dr. Pete Payne MD Status: REG ER Study: Spine Cervical without Contras Date of Exam: 0 11/03/24 Exam# [id number] Ordering Dr: Alirio Edward DO PROCEDURE: SPINE [...] fracture or subluxation. [facility] CC: Dr. Pete Payne MD; Dr. Alirio Edward DO Superintendent Maintenance: Signed Normal [facility] Absolute lymphocyte countOrd ered By: Pete Payne on 10-17-2024 Lymphocytes Auto (Unsp spec) [#/Vol] 3.03 10*3/uL 0.83-4.51 [facility] Absolute neutrophil countOrd ered By: geena Payne on 10-17-2024 Neutrophils (Bld) [#/Vol] 5.3 10*3/uL 2.0-7.7 [facility] Automated lymphocyte count a s percentage of total leukocytesOrdered By: Pete Payne on 10-17-2024 Lymphocytes/100 WBC Auto (Unsp spec) 31.8 % 19-41 [facility] Basophil percentageOrdered B y: Pete Payne on 10-17-2024 Basophils/100 WBC (Bld) 0.8 % 0-1 [facility] Eosinophil percentageOrdered By: geena Payne on 10-17-2024 Eosinophils/100 WBC (Bld) 3.6 % 0-5 [facility] Erythrocyte distribution wid th (RBC) [Ratio]Ordered By: Pete Payne on 10-17-2024 Erythrocyte distribution width (RBC) [Entitic vol] 45.9 fL High 35.1-43.9 [facility] Erythrocyte distribution wid th ratioOrdered By: alexispilot grovesudarshan Payne on 10-17-2024 Erythrocyte distribution width (RBC) [Ratio] 13.4 % 11.6-14.6 [facility] Erythrocyte distribution wid th standard deviationOrdered By: Pete Payne on 10-17-2024 Erythrocyte distribution width (RBC) [Ratio] 45.9 fl High 35.1-43.9 [facility] Hematocrit Auto (Bld) [Volum e fraction]Ordered By: Pete Payne on 10-17-2024 Hematocrit (Bld) [Volume fraction] 34.1 % Low 37-47 [facility] Hemoglobin measurementOrdere d By: Pete Payne on 10-17-2024 Hemoglobin (Bld) [Mass/Vol] 11.1 g/dL Low 12.0-15.0 [facility] Immature granulocytes/100 WB C Auto (Bld)Ordered By: Pete Payne on 10-17-2024 Immature granulocytes/100 WBC (Bld) 0.400 % 0.0-0.9 [facility] Comment on above: IG% - Immature Granu locytes (promyelocytes, myelocytes and metamyelocytes) > 1% indicates that a LEFT SHIFT is Present. Lymphocytes Auto (Unsp spec) [#/Vol]Ordered By: Pete Payne on 10-17-2024 Lymphocytes (Bld) [#/Vol] 3.03 10*3/uL 0.83-4.51 [facility] Lymphocytes/100 WBC Auto (Un sp spec)Ordered By: Pete Payne on 10-17-2024 Lymphocytes/100 WBC (Bld) 31.8 % 19-41 [facility] MCV (mean corpuscular volume ) determinationOrdered By: Pete Payne on 10-17-2024 MCV (RBC) [Entitic vol] 92.4 fL 81-99 [facility] Mean corpuscular hemoglobin (MCH) determinationOrdered By: alexispilot grovesudarshan Payne on 10-17-2024 MCH (RBC) [Entitic mass] 30.1 pg 27.0-32.0 [facility] Mean corpuscular hemoglobin concentration (MCHC) determinationOrdered By: alexispilot grovesudarshan Payne on 10-17-2024 MCHC (RBC) [Mass/Vol] 32.6 g/dL 32-36 [facility] Mean platelet volume determi nationOrdered By: Pete Payne on 10-17-2024 Platelet mean volume (Bld) [Entitic vol] 10.0 fL 6.2-12.0 [facility] Monocyte percentageOrdered B y: Pete Payne on 10-17-2024 Monocytes/100 WBC (Bld) 7.4 % 0-10 [facility] Neutrophil percentageOrdered By: Pete Payne on 10-17-2024 Neutrophils/100 WBC (Bld) 56.0 % 47-70 [facility] Nucleated red blood cell per centageOrdered By: Pete Payne on 10-17-2024 Nucleated RBC/100 WBC (Bld) [Ratio] 0 % 0-5 [facility] Platelet countOrdered By: Celeste Payne on 10-17-2024 Platelets (Bld) [#/Vol] 346 10*3/uL 150-450 [facility] RBC Auto (Bld) [#/Vol]Ordere d By: Pete Payne on 10-17-2024 RBC (Bld) [#/Vol] 3.69 10*6/uL Low 4.2-5.4 [facility] White blood cell (WBC) count Ordered By: Pete Payne on 10-17-2024 WBC (Bld) [#/Vol] 9.5 10*3/uL 4.4-11.0 [facility] Absolute lymphocyte countOrd ered By: Pete Payne on 10-10-2024 Lymphocytes Auto (Unsp spec) [#/Vol] 2.36 10*3/uL 0.83-4.51 [facility] Absolute neutrophil countOrd ered By: Pete Payne on 10-10-2024 Neutrophils (Bld) [#/Vol] 5.5 10*3/uL 2.0-7.7 [facility] Automated lymphocyte count a s percentage of total leukocytesOrdered By: Pete Payne on 10-10-2024 Lymphocytes/100 WBC Auto (Unsp spec) 26.6 % 19-41 [facility] Basophil percentageOrdered B y: Pete Payne on 10-10-2024 Basophils/100 WBC (Bld) 0.9 % 0-1 [facility] Eosinophil percentageOrdered By: Pete Beltrane on 10-10-2024 Eosinophils/100 WBC (Bld) 2.8 % 0-5 [facility] Erythrocyte distribution wid th (RBC) [Ratio]Ordered By: Pete Payne on 10-10-2024 Erythrocyte distribution width (RBC) [Entitic vol] 45.0 fL High 35.1-43.9 [facility] Erythrocyte distribution wid th ratioOrdered By: Pete Payne on 10-10-2024 Erythrocyte distribution width (RBC) [Ratio] 13.2 % 11.6-14.6 [facility] Erythrocyte distribution wid th standard deviationOrdered By: Pete Payne on 10-10-2024 Erythrocyte distribution width (RBC) [Ratio] 45.0 fl High 35.1-43.9 [facility] Hematocrit Auto (Bld) [Volum e fraction]Ordered By: Pete Payne on 10-10-2024 Hematocrit (Bld) [Volume fraction] 35.0 % Low 37-47 [facility] Hemoglobin measurementOrdere d By: Pete Payne on 10-10-2024 Hemoglobin (Bld) [Mass/Vol] 11.3 g/dL Low 12.0-15.0 [facility] Immature granulocytes/100 WB C Auto (Bld)Ordered By: alexispilot grovesudarshan Payne on 10-10-2024 Immature granulocytes/100 WBC (Bld) 0.500 % 0.0-0.9 [facility] Comment on above: IG% - Immature Granu locytes (promyelocytes, myelocytes and metamyelocytes) > 1% indicates that a LEFT SHIFT is Present. Lymphocytes Auto (Unsp spec) [#/Vol]Ordered By: [facility] on 10-10-2024 Lymphocytes (Bld) [#/Vol] 2.36 10*3/uL 0.83-4.51 [facility] Lymphocytes/100 WBC Auto (Un sp spec)Ordered By: geena Payne on 10-10-2024 Lymphocytes/100 WBC (Bld) 26.6 % 19-41 [facility] MCV (mean corpuscular volume ) determinationOrdered By: Pete Payne on 10-10-2024 MCV (RBC) [Entitic vol] 92.6 fL 81-99 [facility] Mean corpuscular hemoglobin (MCH) determinationOrdered By: Pete Payne on 10-10-2024 MCH (RBC) [Entitic mass] 29.9 pg 27.0-32.0 [facility] Mean corpuscular hemoglobin concentration (MCHC) determinationOrdered By: alexispilot grovesudarshan Payne on 10-10-2024 MCHC (RBC) [Mass/Vol] 32.3 g/dL 32-36 [facility] Mean platelet volume determi nationOrdered By: Pete Beltrane on 10-10-2024 Platelet mean volume (Bld) [Entitic vol] 10.1 fL 6.2-12.0 [facility] Monocyte percentageOrdered B y: Efterezabe Devine on 10-10-2024 Monocytes/100 WBC (Bld) 6.7 % 0-10 [facility] Neutrophil percentageOrdered By: Efalexisongbe Oleriteshe on 10-10-2024 Neutrophils/100 WBC (Bld) 62.5 % 47-70 [facility] Nucleated red blood cell per centageOrdered By: Efterezabe Devine on 10-10-2024 Nucleated RBC/100 WBC (Bld) [Ratio] 0 % 0-5 [facility] Platelet countOrdered By: Ef geena Beltrane on 10-10-2024 Platelets (Bld) [#/Vol] 361 10*3/uL 150-450 [facility] RBC Auto (Bld) [#/Vol]Ordere d By: Efterezabe Devine on 10-10-2024 RBC (Bld) [#/Vol] 3.78 10*6/uL Low 4.2-5.4 [facility] White blood cell (WBC) count Ordered By: Pete Beltrane on 10-10-2024 WBC (Bld) [#/Vol] 8.9 10*3/uL 4.4-11.0 [facility] Absolute lymphocyte countOrd ered By: Efterezabe Devine on 10-06-2024 Lymphocytes Auto (Unsp spec) [#/Vol] 2.51 10*3/uL 0.83-4.51 [facility] Absolute neutrophil countOrd ered By: Saturninoongbe Devine on 10-06-2024 Neutrophils (Bld) [#/Vol] 4.8 10*3/uL 2.0-7.7 [facility] Automated lymphocyte count a s percentage of total leukocytesOrdered By: Pete Beltrane on 10-06-2024 Lymphocytes/100 WBC Auto (Unsp spec) 30.2 % 19-41 [facility] Basophil percentageOrdered B y: Pete Payne on 10-06-2024 Basophils/100 WBC (Bld) 1.0 % 0-1 [facility] Eosinophil percentageOrdered By: Pete Payne on 10-06-2024 Eosinophils/100 WBC (Bld) 3.1 % 0-5 [facility] Erythrocyte distribution wid th (RBC) [Ratio]Ordered By: alexispilot grovesudarshan Payne on 10-06-2024 Erythrocyte distribution width (RBC) [Entitic vol] 44.4 fL High 35.1-43.9 [facility] Erythrocyte distribution wid th ratioOrdered By: [facility] Elmer on 10-06-2024 Erythrocyte distribution width (RBC) [Ratio] 13.3 % 11.6-14.6 [facility] Erythrocyte distribution wid th standard deviationOrdered By: [facility] on 10-06-2024 Erythrocyte distribution width (RBC) [Ratio] 44.4 fl High 35.1-43.9 [facility] Hematocrit Auto (Bld) [Volum e fraction]Ordered By: Pete Beltranandrew on 10-06-2024 Hematocrit (Bld) [Volume fraction] 33.2 % Low 37-47 [facility] Hemoglobin measurementOrdere d By: Pete Payne on 10-06-2024 Hemoglobin (Bld) [Mass/Vol] 11.2 g/dL Low 12.0-15.0 [facility] Immature granulocytes/100 WB C Auto (Bld)Ordered By: alexiskeishasudarshan Pfeifferriteshandrew on 10-06-2024 Immature granulocytes/100 WBC (Bld) 0.400 % 0.0-0.9 [facility] Comment on above: IG% - Immature Granu locytes (promyelocytes, myelocytes and metamyelocytes) > 1% indicates that a LEFT SHIFT is Present. Lymphocytes Auto (Unsp spec) [#/Vol]Ordered By: Pete Beltranandrew on 10-06-2024 Lymphocytes (Bld) [#/Vol] 2.51 10*3/uL 0.83-4.51 [facility] Lymphocytes/100 WBC Auto (Un sp spec)Ordered By: Celestealexiskeishasudarshan Pfeifferriteshandrew on 03-20-2025 Lymphocytes/100 WBC (Bld) 30.2 % 19-41 [facility] MCV (mean corpuscular volume ) determinationOrdered By: Pete Payne on 10-06-2024 MCV (RBC) [Entitic vol] 91.5 fL 81-99 [facility] Mean corpuscular hemoglobin (MCH) determinationOrdered By: Efalexisongbe Kentrellghe on 10-06-2024 MCH (RBC) [Entitic mass] 30.9 pg 27.0-32.0 [facility] Mean corpuscular hemoglobin concentration (MCHC) determinationOrdered By: Pete Beltrane on 10-06-2024 MCHC (RBC) [Mass/Vol] 33.7 g/dL 32-36 [facility] Mean platelet volume determi nationOrdered By: Efalexisongbe Devine on 10-06-2024 Platelet mean volume (Bld) [Entitic vol] 9.8 fL 6.2-12.0 [facility] Monocyte percentageOrdered B y: Efalexisongbe Devine on 10-06-2024 Monocytes/100 WBC (Bld) 7.9 % 0-10 [facility] Neutrophil percentageOrdered By: Saturninoongbe Devine on 10-06-2024 Neutrophils/100 WBC (Bld) 57.4 % 47-70 [facility] Nucleated red blood cell per centageOrdered By: Saturninoongbe Devine on 10-06-2024 Nucleated RBC/100 WBC (Bld) [Ratio] 0 % 0-5 [facility] Platelet countOrdered By: Ef alexisongbe Devine on 10-06-2024 Platelets (Bld) [#/Vol] 348 10*3/uL 150-450 [facility] RBC Auto (Bld) [#/Vol]Ordere d By: Efalexisongbe Kentrellghe on 10-06-2024 RBC (Bld) [#/Vol] 3.63 10*6/uL Low 4.2-5.4 [facility] White blood cell (WBC) count Ordered By: Nithinbe Kentrellghe on 10-06-2024 WBC (Bld) [#/Vol] 8.3 10*3/uL 4.4-11.0 [facility] T4 freeOrdered By: Pete Payne on 10-03-2024 Free T4 [Mass/Vol] 1.20 ng/dL 0.76-1.46 [facility] TSH DL <= 0.005 mIU/L QnOrde red By: Pete Payne on 10-03-2024 Thyroid Stimulating Hormone (TSH) 4.480 uIU/mL High 0.300-4.200 [facility] TSH Qn 4.480 uIU/mL High 0.300-4.200 [facility] Absolute lymphocyte countOrd ered By: Pete Payne on 08-23-2024 Lymphocytes Auto (Unsp spec) [#/Vol] 2.44 10*3/uL 0.83-4.51 [facility] Absolute neutrophil countOrd ered By: Pete Payne on 08-23-2024 Neutrophils (Bld) [#/Vol] 5.4 10*3/uL 2.0-7.7 [facility] Albumin to globulin ratioOrd ered By: Pete Payne on 08-23-2024 Albumin/Globulin [Mass ratio] 0.7 {ratio} Low 0.9-2.4 [facility] Automated lymphocyte count a s percentage of total leukocytesOrdered By: Pete Payne on 08-23-2024 Lymphocytes/100 WBC Auto (Unsp spec) 27.5 % 19-41 [facility] Basophil percentageOrdered B y: Pete Payne on 08-23-2024 Basophils/100 WBC (Bld) 0.6 % 0-1 [facility] Bilirubin, totalOrdered By: Pete Payne on 08-23-2024 Bilirubin [Mass/Vol] 0.90 mg/dL 0.20-1.[address] [facility] Comment on above: For patients on eltr ombopag therapy, use of Dimension [place] TBIL is not recommended. Blood urea nitrogen (BUN)/cr eatinine ratioOrdered By: Pete Payne on 08-23-2024 Urea nitrogen/Creatinine [Mass ratio] 19.5 mg/mg 10-20 [facility] Carbon dioxide measurementOr dered By: Pete Payne on 08-23-2024 CO2 [Moles/Vol] 25.0 mmol/L 21.0-32.0 [facility] Chloride measurementOrdered By: Pete Payne on 08-23-2024 Chloride [Moles/Vol] 108 mmol/L High 98-[address] [facility] Eosinophil percentageOrdered By: Pete Payne on 08-23-2024 Eosinophils/100 WBC (Bld) 3.4 % 0-5 [facility] Erythrocyte distribution wid th (RBC) [Ratio]Ordered By: Pete Pyane on 08-23-2024 Erythrocyte distribution width (RBC) [Entitic vol] 47.5 fL High 35.1-43.9 [facility] Erythrocyte distribution wid th ratioOrdered By: Pete Payne on 08-23-2024 Erythrocyte distribution width (RBC) [Ratio] 13.8 % 11.6-14.6 [facility] Erythrocyte distribution wid th standard deviationOrdered By: Pete Payne on 08-23-2024 Erythrocyte distribution width (RBC) [Ratio] 47.5 fl High 35.1-43.9 [facility] Estimated glomerular filtrat ion rate (GFR) AmericanOrdered By: Pete Payne on 08-23-2024 Estimated GFR (MDRD) Amer 69 mL/min >60 [facility] Comment on above: GFR Calc Glomerular filtration rate ( GFR) estimationOrdered By: Pete Payne on 08-23-2024 Estimated GFR (MDRD) Non-Af Amer 57 mL/min Low >60 [facility] Comment on above: Non- GFR Calc GFR/1.73 sq M.predicted among non-blacks MDRD (S/P/Bld) [Vol rate/Area] 57 mL/min/{1.73_m2} Low >60 [facility] Comment on above: Non- GFR Calc Glucose measurementOrdered B y: Pete Payne on 08-23-2024 Glucose [Mass/Vol] 122 mg/dL High 74-106 [facility] Comment on above: Fasting Glucose resu lt from 100 to 125 mg/dL suggests IMPAIRED HOMEOSTASIS per A.D.A. criteria. Hematocrit Auto (Bld) [Volum e fraction]Ordered By: Pete Payne on 08-23-2024 Hematocrit (Bld) [Volume fraction] 34.2 % Low 37-47 [facility] Hemoglobin A1c percentageOrd ered By: Pete Payne on 08-23-2024 HbA1c (Bld) [Mass fraction] 6.5 % High 3.8-5.6 [facility] Comment on above: Normal < 5.7 % Predi abetic 5.7 - 6.4 % Diabetic >or= 6.5 % Please note range changes. Hemoglobin measurementOrdere d By: Pete Payne on 08-23-2024 Hemoglobin (Bld) [Mass/Vol] 11.0 g/dL Low 12.0-15.0 [facility] Immature granulocytes/100 WB C Auto (Bld)Ordered By: Pete Payne on 08-23-2024 Immature granulocytes/100 WBC (Bld) 0.600 % 0.0-0.9 [facility] Comment on above: IG% - Immature Granu locytes (promyelocytes, myelocytes and metamyelocytes) > 1% indicates that a LEFT SHIFT is Present. Laboratory - Chemistry and C hemistry - challengeOrdered By: Pete Payne on 08-23-2024 AST [Catalytic activity/Vol] 12 U/L Low 15-37 [facility] Lymphocytes Auto (Unsp spec) [#/Vol]Ordered By: Pete Payne on 08-23-2024 Lymphocytes (Bld) [#/Vol] 2.44 10*3/uL 0.83-4.51 [facility] Lymphocytes/100 WBC Auto (Un sp spec)Ordered By: Pete Payne on 08-23-2024 Lymphocytes/100 WBC (Bld) 27.5 % 19-41 [facility] MCV (mean corpuscular volume ) determinationOrdered By: Pete Payne on 08-23-2024 MCV (RBC) [Entitic vol] 93.4 fL 81-99 [facility] Mean corpuscular hemoglobin (MCH) determinationOrdered By: Pete Payne on 08-23-2024 MCH (RBC) [Entitic mass] 30.1 pg 27.0-32.0 [facility] Mean corpuscular hemoglobin concentration (MCHC) determinationOrdered By: Pete Payne on 08-23-2024 MCHC (RBC) [Mass/Vol] 32.2 g/dL 32-36 [facility] Mean platelet volume determi nationOrdered By: Pete Payne on 08-23-2024 Platelet mean volume (Bld) [Entitic vol] 10.2 fL 6.2-12.0 [facility] Monocyte percentageOrdered B y: Pete Payne on 08-23-2024 Monocytes/100 WBC (Bld) 7.2 % 0-10 [facility] Neutrophil percentageOrdered By: Pete Payne on 08-23-2024 Neutrophils/100 WBC (Bld) 60.7 % 47-70 [facility] Nucleated red blood cell per centageOrdered By: Pete Payne on 08-23-2024 Nucleated RBC/100 WBC (Bld) [Ratio] 0 % 0-5 [facility] Platelet countOrdered By: Celeste Payne on 08-23-2024 Platelets (Bld) [#/Vol] 352 10*3/uL 150-450 [facility] Potassium measurementOrdered By: Pete Payne on 08-23-2024 Potassium [Moles/Vol] 4.0 mmol/L 3.5-5.1 [facility] RBC Auto (Bld) [#/Vol]Ordere d By: Pete Payne on 08-23-2024 RBC (Bld) [#/Vol] 3.66 10*6/uL Low 4.2-5.4 [facility] Serum anion gap measurementO rdered By: Pete Payne on 08-23-2024 Anion gap [Moles/Vol] 8 mmol/L 5-15 [facility] Serum globulin measurementOr dered By: Pete Payne on 08-23-2024 Globulin (S) [Mass/Vol] 3.5 g/dL 2.2-4.2 [facility] Serum or plasma alanine castro otransferase (ALT) measurementOrdered By: Pete Payne on 08-23-2024 ALT [Catalytic activity/Vol] 12 U/L Low 13-56 [facility] Serum or plasma albumin karri urement (mass/volume)Ordered By: Pete Payne on 08-23-2024 Albumin [Mass/Vol] 2.6 g/dL Low 3.2-5.0 [facility] Serum or plasma alkaline corky sphatase measurementOrdered By: Pete Payne on 08-23-2024 ALP [Catalytic activity/Vol] 54 U/L 45-117 [facility] Serum or plasma calcium karri urement (mass/volume)Ordered By: Pete Payne 08-23-2024 Calcium [Mass/Vol] 8.5 mg/dL 8.5-10.1 [facility] Serum or plasma creatinine m easurement (mass/volume)Ordered By: Pete Payne on 08-23-2024 Creatinine [Mass/Vol] 0.98 mg/dL 0.55-1.02 [facility] Comment on above: The validity of the calculated GFR & GFRAA in patients over 70 years has not been determined. Clinical correlation is essential. Serum or plasma thyroid stim ulating hormone (TSH) measurement (units/volume)Ordered By: Pete Payne on 08-23-2024 TSH Qn 3.840 uIU/mL High 0.358-3.740 [facility] Serum or plasma urea nitroge n measurement (mass/volume)Ordered By: Pete Payne 08-23-2024 Urea nitrogen [Mass/Vol] 19 mg/dL High 7-18 [facility] Sodium levelOrdered By: Saturnino Payne 08-23-2024 Sodium [Moles/Vol] 141 mmol/L 136-145 [facility] TSH QnOrdered By: Pete Payne 08-23-2024 Thyroid Stimulating Hormone (TSH) 3.840 uIU/mL High 0.358-3.740 [facility] Total proteinOrdered By: Ramsey Payne 08-23-2024 Protein [Mass/Vol] 6.1 g/dL Low 6.4-8.2 [facility] White blood cell (WBC) count Ordered By: Pete Payne on 08-23-2024 WBC (Bld) [#/Vol] 8.9 10*3/uL 4.4-11.0 [facility] TSH QnOrdered By: Pete Payne on 07-11-2024 Thyroid Stimulating Hormone (TSH) 3.030 uIU/mL 0.358-3.740 [facility] Absolute lymphocyte countOrd ered By: alexispilot grovesudarshan Pfeifferandrew on 08-25-2023 Lymphocytes Auto (Unsp spec) [#/Vol] 2.56 10*3/uL 0.83-4.51 [facility] Automated lymphocyte count a s percentage of total leukocytesOrdered By: Pete Payne on 08-25-2023 Lymphocytes/100 WBC Auto (Unsp spec) 28.1 % 19-41 [facility] Basophil percentageOrdered B y: Pete Payne on 08-25-2023 Basophils/100 WBC (Bld) 1.0 % 0-1 [facility] Bilirubin [Mass/Vol] 1.00 mg/dL 0.20-1.[address] [facility] Comment on above: For patients on eltr ombopag therapy, use of Dimension [place] TBIL is not recommended. Chloride [Moles/Vol] 107 mmol/L 98-[address] [facility] Eosinophils/100 WBC (Bld) 3.4 % 0-5 [facility] Glucose [Mass/Vol] 143 mg/dL 74-106 [facility] Comment on above: Fasting Glucose resu lt greater than or equal to 126 mg/dL suggests DIABETES MELLITUS per A.D.A. criteria. Hemoglobin (Bld) [Mass/Vol] 11.1 g/dL 12.0-15.0 [facility] Monocytes/100 WBC (Bld) 6.9 % 0-10 [facility] Neutrophils (Bld) [#/Vol] 5.5 10*3/uL 2.0-7.7 [facility] Neutrophils/100 WBC (Bld) 60.3 % 47-70 [facility] Potassium [Moles/Vol] 4.1 mmol/L 3.5-5.1 [facility] Protein [Mass/Vol] 6.8 g/dL 6.4-8.2 [facility] Sodium [Moles/Vol] 140 mmol/L 136-145 [facility] WBC (Bld) [#/Vol] 9.1 10*3/uL 4.4-11.0 [facility] Determination of erythrocyte mean corpuscular volume (MCV)Ordered By: Pete Payne on 08-25-2023 MCV (RBC) [Entitic vol] 93.5 fL 81-99 [facility] Erythrocyte distribution wid th ratioOrdered By: [facility] Kentrellandrew on 08-25-2023 Erythrocyte distribution width (RBC) [Ratio] 12.9 % 11.6-14.6 [facility] Erythrocyte distribution wid th standard deviationOrdered By: [facility] Kentrellandrew on 08-25-2023 Erythrocyte distribution width (RBC) [Entitic vol] 44.3 fL 35.1-43.9 [facility] Hematocrit Auto (Bld) [Volum e fraction]Ordered By: [facility] Kentrellandrew on 08-25-2023 Hematocrit (Bld) [Volume fraction] 34.5 % 37-47 [facility] Immature granulocytes/100 WB C Auto (Bld)Ordered By: [facility] Kentrellandrew on 08-25-2023 Immature granulocytes/100 WBC (Bld) 0.300 % 0.0-0.9 [facility] Comment on above: IG% - Immature Granu locytes (promyelocytes, myelocytes and metamyelocytes) > 1% indicates that a LEFT SHIFT is Present. Laboratory - Chemistry and C hemistry - challengeOrdered By: alexispilot grovesudarshan Payne on 08-25-2023 Albumin/Globulin [Mass ratio] 0.8 {ratio} 0.9-2.4 [facility] ALP [Catalytic activity/Vol] 62 U/L 45-117 [facility] ALT [Catalytic activity/Vol] 14 U/L 13-56 [facility] CO2 [Moles/Vol] 25.0 mmol/L 21.0-32.0 [facility] Globulin (S) [Mass/Vol] 3.8 g/dL 2.2-4.2 [facility] Urea nitrogen/Creatinine [Mass ratio] 20.9 mg/mg 10-20 [facility] Laboratory - Hematology and Cell countsOrdered By: Pete Payne on 08-25-2023 MCH (RBC) [Entitic mass] 30.1 pg 27.0-32.0 [facility] MCHC (RBC) [Mass/Vol] 32.2 g/dL 32-36 [facility] Nucleated RBC/100 WBC (Bld) [Ratio] 0 % 0-5 [facility] Platelet mean volume (Bld) [Entitic vol] 10.2 fL 6.2-12.0 [facility] Platelets (Bld) [#/Vol] 373 10*3/uL 150-450 [facility] No Panel InformationOrdered By: Pete Payne on 08-25-2023 Estimated GFR (MDRD) Amer 71 mL/min >60 [facility] Comment on above: GFR Calc Estimated GFR (MDRD) Non-Af Amer 59 mL/min >60 [facility] Comment on above: Non- GFR Calc RBC Auto (Bld) [#/Vol]Ordere d By: Pete Payne on 08-25-2023 RBC (Bld) [#/Vol] 3.69 10*6/uL 4.2-5.4 [facility] Serum or plasma calcium karri urement (mass/volume)Ordered By: Pete Payne on 08-25-2023 Calcium [Mass/Vol] 9.4 mg/dL 8.5-10.1 [facility] Serum or plasma creatinine m easurement (mass/volume)Ordered By: Pete Payne on 08-25-2023 Creatinine [Mass/Vol] 0.96 mg/dL 0.55-1.02 [facility] Comment on above: The validity of the calculated GFR & GFRAA in patients over 70 years has not been determined. Clinical correlation is essential. Serum or plasma urea nitroge n measurement (mass/volume)Ordered By: Pete Payne on 08-25-2023 Urea nitrogen [Mass/Vol] 20 mg/dL 7-18 [facility] Thin prep Papanicolaou smear with manual screeningOrdered By: Pete Payne on 08-25-2023 Thin prep Papanicolaou smear with manual screening 3.0 g/dL 3.2-5.0 [facility] Thin prep Papanicolaou smear with manual screening 13 U/L 15-37 [facility] Thin prep Papanicolaou smear with manual screening 8 5-15 [facility] Whole blood hemoglobin A1c/t otal hemoglobin ratio (mass fraction)Ordered By: Pete Payne on 08-25-2023 HbA1c (Bld) [Mass fraction] 6.9 % 3.8-5.6 [facility] Comment on above: Normal < 5.7 % Predi abetic 5.7 - 6.4 % Diabetic >or= 6.5 % Please note range changes. Laboratory - Chemistry and C hemistry - challengeOrdered By: Pete Payne on 03-16-2023 Free T4 [Mass/Vol] 1.07 ng/dL 0.76-1.46 [facility] No Panel InformationOrdered By: ePte Payne on 03-16-2023 Thyroid Stimulating Hormone (TSH) 4.03 uIU/mL 0.358-3.74 [facility] Total Triiodothyronine 1.24 ng/mL 0.6-1.81 [facility] Absolute lymphocyte countOrd ered By: Pete Payne on 03-12-2023 Lymphocytes Auto (Unsp spec) [#/Vol] 2.46 10*3/uL 0.83-4.51 [facility] Basophil percentageOrdered B y: Pete Payne on 03-12-2023 Basophils/100 WBC (Bld) 1.1 % 0-1 [facility] Bilirubin [Mass/Vol] 0.70 mg/dL 0.20-1.[address] [facility] Comment on above: For patients on eltr ombopag therapy, use of Dimension [place] TBIL is not recommended. Chloride [Moles/Vol] 106 mmol/L 98-[address] [facility] Cholesterol [Mass/Vol] 106 mg/dL <200 [facility] Comment on above: <200 mg/dL Desirable 200-240 mg/dL Borderline >240 mg/dL High Risk Eosinophils/100 WBC (Bld) 2.8 % 0-5 [facility] Glucose [Mass/Vol] 151 mg/dL 74-106 [facility] Comment on above: Fasting Glucose resu lt greater than or equal to 126 mg/dL suggests DIABETES MELLITUS per A.D.A. criteria. Neutrophils (Bld) [#/Vol] 4.8 10*3/uL 2.0-7.7 [facility] Neutrophils/100 WBC (Bld) 57.0 % 47-70 [facility] Potassium [Moles/Vol] 4.1 mmol/L 3.5-5.1 [facility] Protein [Mass/Vol] 6.3 g/dL 6.4-8.2 [facility] Sodium [Moles/Vol] 138 mmol/L 136-145 [facility] Triglyceride [Mass/Vol] 135 mg/dL <199 [facility] Comment on above: The drugs N-Acetylcy steine and Metamizole may falsely depress this assay.Serum Triglycerides Reference Interval Normal <150 mg/dL Borderline high 150 - 199 mg/dL High 200 - 499 mg/dL Very High > or = 500 mg/dL WBC (Bld) [#/Vol] 8.3 10*3/uL 4.4-11.0 [facility] Blood erythrocytes count (nu mber/volume)Ordered By: Pete Payne on 03-12-2023 RBC (Bld) [#/Vol] 3.59 10*6/uL 4.2-5.4 [facility] Blood hemoglobin measurement (mass/volume)Ordered By: Pete Payne on 03-12-2023 Hemoglobin (Bld) [Mass/Vol] 11.0 g/dL 12.0-15.0 [facility] Blood lymphocytes/100 leukoc ytesOrdered By: Pete Payne on 03-12-2023 Lymphocytes/100 WBC (Bld) 29.5 % 19-41 [facility] Blood monocytes/100 leukocyt esOrdered By: Pete Payne on 03-12-2023 Monocytes/100 WBC (Bld) 9.2 % 0-10 [facility] Blood platelet mean volumeOr dered By: Pete Payne on 03-12-2023 Platelet mean volume (Bld) [Entitic vol] 9.8 fL 6.2-12.0 [facility] Determination of erythrocyte mean corpuscular volume (MCV)Ordered By: Pete Payne on 03-12-2023 MCV (RBC) [Entitic vol] 93.9 fL 81-99 [facility] Hematocrit Auto (Bld) [Volum e fraction]Ordered By: [facility] on 03-12-2023 Hematocrit (Bld) [Volume fraction] 33.7 % 37-47 [facility] Laboratory - Chemistry and C hemistry - challengeOrdered By: [facility] P[facility]ifferandrew on 03-12-2023 ALP [Catalytic activity/Vol] 57 U/L 45-117 [facility] ALT [Catalytic activity/Vol] 16 U/L 13-56 [facility] CO2 [Moles/Vol] 25.0 mmol/L 21.0-32.0 [facility] Globulin (S) [Mass/Vol] 3.4 g/dL 2.2-4.2 [facility] Urea nitrogen/Creatinine [Mass ratio] 16.0 mg/mg 10-20 [facility] Laboratory - Hematology and Cell countsOrdered By: alexispilot grovesudarshan Pfeifferandrew on 03-12-2023 Erythrocyte distribution width (RBC) [Entitic vol] 42.9 fL 35.1-43.9 [facility] Erythrocyte distribution width (RBC) [Ratio] 12.4 % 11.6-14.6 [facility] Immature granulocytes/100 WBC (Bld) 0.400 % 0.0-0.9 [facility] Comment on above: IG% - Immature Granu locytes (promyelocytes, myelocytes and metamyelocytes) > 1% indicates that a LEFT SHIFT is Present. MCH (RBC) [Entitic mass] 30.6 pg 27.0-32.0 [facility] Nucleated RBC/100 WBC (Bld) [Ratio] 0 % 0-5 [facility] MCHC Auto (RBC) [Mass/Vol]Or dered By: alexispilot grovesudarshan Payne on 03-12-2023 MCHC (RBC) [Mass/Vol] 32.6 g/dL 32-36 [facility] No Panel InformationOrdered By: Pete Payne on 03-12-2023 Estimated GFR (MDRD) Amer 63 mL/min >60 [facility] Comment on above: GFR Calc Estimated GFR (MDRD) Non-Af Amer 52 mL/min >60 [facility] Comment on above: Non- GFR Calc Thyroid Stimulating Hormone (TSH) 4.75 uIU/mL 0.358-3.74 [facility] Vitamin D 25-Hydroxy 107.1 ng/mL [facility] Comment on above: Vitamin D 25(OH) Sta [...] 03-12-2023 Platelets (Bld) [#/Vol] 361 10*3/uL 150-450 [facility] Serum or plasma albumin karri urement (mass/volume)Ordered By: Pete Payne on 03-12-2023 Albumin [Mass/Vol] 2.9 g/dL 3.2-5.0 [facility] Serum or plasma albumin/glob ulin mass ratioOrdered By: Pete Payne on 03-12-2023 Albumin/Globulin [Mass ratio] 0.9 {ratio} 0.9-2.4 [facility] Serum or plasma calcium karri urement (mass/volume)Ordered By: Pete Payne on 03-12-2023 Calcium [Mass/Vol] 9.0 mg/dL 8.5-10.1 [facility] Serum or plasma cholesterol in HDL measurement (mass/volume)Ordered By: Pete Payne on 03-12-2023 Cholesterol in HDL [Mass/Vol] 46 mg/dL >40 [facility] Comment on above: The drugs N-Acetylcy steine and Metamizole may falsely depress this assay. Reference Range HDL <40 mg/dL Low HDL Cholesterol HDL >or= 60 mg/dL High HDL Cholesterol Serum or plasma cholesterol in VLDL measurement (mass/volume)Ordered By: Pete Payne on 03-12-2023 Cholesterol in VLDL [Mass/Vol] 27 mg/dL 5-40 [facility] Serum or plasma creatinine m easurement (mass/volume)Ordered By: Pete Payne on 03-12-2023 Creatinine [Mass/Vol] 1.06 mg/dL 0.55-1.02 [facility] Comment on above: The validity of the calculated GFR & GFRAA in patients over 70 years has not been determined. Clinical correlation is essential. Serum or plasma low density lipoprotein (LDL) cholesterol measurement (mass/volume)Ordered By: Pete Payne on 03-12-2023 Cholesterol in LDL [Mass/Vol] 33 mg/dL 0-130 [facility] Serum or plasma urea nitroge n measurement (mass/volume)Ordered By: Pete Payne on 03-12-2023 Urea nitrogen [Mass/Vol] 17 mg/dL 7-18 [facility] Thin prep Papanicolaou smear with manual screeningOrdered By: Pete Payne on 03-12-2023 Thin prep Papanicolaou smear with manual screening 13 U/L 15-37 [facility] Thin prep Papanicolaou smear with manual screening 7 5-15 [facility] Whole blood hemoglobin A1c/t otal hemoglobin ratio (mass fraction)Ordered By: Pete Payne on 03-12-2023 HbA1c (Bld) [Mass fraction] 7.2 % 3.8-5.6 [facility] Comment on above: Normal < 5.7 % Predi abetic 5.7 - 6.4 % Diabetic >or= 6.5 % Please note range changes. Absolute lymphocyte countOrd ered By: Pete Payne on 12-01-2022 Lymphocytes Auto (Unsp spec) [#/Vol] 2.66 10*3/uL 0.83-4.51 [facility] Basophil percentageOrdered B y: Pete Payne on 12-01-2022 Basophils/100 WBC (Bld) 1.0 % 0-1 [facility] Bilirubin [Mass/Vol] 1.00 mg/dL 0.20-1.[address] [facility] Comment on above: For patients on eltr ombopag therapy, use of Dimension [place] TBIL is not recommended. Chloride [Moles/Vol] 100 mmol/L 98-[address] [facility] Eosinophils/100 WBC (Bld) 2.3 % 0-5 [facility] Glucose [Mass/Vol] 152 mg/dL 74-106 [facility] Comment on above: Fasting Glucose resu lt greater than or equal to 126 mg/dL suggests DIABETES MELLITUS per A.D.A. criteria. Neutrophils (Bld) [#/Vol] 5.8 10*3/uL 2.0-7.7 [facility] Neutrophils/100 WBC (Bld) 60.2 % 47-70 [facility] Potassium [Moles/Vol] 4.3 mmol/L 3.5-5.1 [facility] Protein [Mass/Vol] 6.1 g/dL 6.4-8.2 [facility] Sodium [Moles/Vol] 138 mmol/L 136-145 [facility] WBC (Bld) [#/Vol] 9.7 10*3/uL 4.4-11.0 [facility] Blood erythrocytes count (nu mber/volume)Ordered By: Pete Payne on 12-01-2022 RBC (Bld) [#/Vol] 3.46 10*6/uL 4.2-5.4 [facility] Blood hemoglobin measurement (mass/volume)Ordered By: Pete Payne on 12-01-2022 Hemoglobin (Bld) [Mass/Vol] 10.8 g/dL 12.0-15.0 [facility] Blood lymphocytes/100 leukoc ytesOrdered By: Pete Payne on 12-01-2022 Lymphocytes/100 WBC (Bld) 27.5 % 19-41 [facility] Blood monocytes/100 leukocyt esOrdered By: geena Payne on 12-01-2022 Monocytes/100 WBC (Bld) 8.4 % 0-10 [facility] Blood platelet mean volumeOr dered By: alexispilot grovesudarshan Payne on 12-01-2022 Platelet mean volume (Bld) [Entitic vol] 9.9 fL 6.2-12.0 [facility] Determination of erythrocyte mean corpuscular volume (MCV)Ordered By: alexispilot grovesudarshan Payne on 12-01-2022 MCV (RBC) [Entitic vol] 97.1 fL 81-99 [facility] Hematocrit Auto (Bld) [Volum e fraction]Ordered By: [facility] on 12-01-2022 Hematocrit (Bld) [Volume fraction] 33.6 % 37-47 [facility] Laboratory - Chemistry and C hemistry - challengeOrdered By: Pete Payne on 12-01-2022 ALP [Catalytic activity/Vol] 60 U/L 45-117 [facility] ALT [Catalytic activity/Vol] 22 U/L 13-56 [facility] CO2 [Moles/Vol] 29.0 mmol/L 21.0-32.0 [facility] Globulin (S) [Mass/Vol] 3.3 g/dL 2.2-4.2 [facility] Urea nitrogen/Creatinine [Mass ratio] 16.1 mg/mg 10-20 [facility] Laboratory - Hematology and Cell countsOrdered By: Pete Payne on 12-01-2022 Erythrocyte distribution width (RBC) [Entitic vol] 44.6 fL 35.1-43.9 [facility] Erythrocyte distribution width (RBC) [Ratio] 12.5 % 11.6-14.6 [facility] Immature granulocytes/100 WBC (Bld) 0.600 % 0.0-0.9 [facility] Comment on above: IG% - Immature Granu locytes (promyelocytes, myelocytes and metamyelocytes) > 1% indicates that a LEFT SHIFT is Present. MCH (RBC) [Entitic mass] 31.2 pg 27.0-32.0 [facility] Nucleated RBC/100 WBC (Bld) [Ratio] 0 % 0-[address] [facility] ([facility]) [Mass/Vol]Or dered By: Pete Payne on 12-01-2022 MCHC (RBC) [Mass/Vol] 32.1 g/dL 32-36 [facility] No Panel InformationOrdered By: Pete Payne on 12-01-2022 Estimated GFR (MDRD) Amer 59 mL/min >60 [facility] Comment on above: GFR Calc Estimated GFR (MDRD) Non-Af Amer 49 mL/min >60 [facility] Comment on above: Non- GFR Calc Platelets bldOrdered By: Ramsey Payne on 12-01-2022 Platelets (Bld) [#/Vol] 517 10*3/uL 150-450 [facility] Serum or plasma albumin karri urement (mass/volume)Ordered By: Pete Payne on 12-01-2022 Albumin [Mass/Vol] 2.8 g/dL 3.2-5.0 [facility] Serum or plasma albumin/glob ulin mass ratioOrdered By: Pete Payne on 12-01-2022 Albumin/Globulin [Mass ratio] 0.8 {ratio} 0.9-2.4 [facility] Serum or plasma calcium karri urement (mass/volume)Ordered By: Pete Payne on 12-01-2022 Calcium [Mass/Vol] 9.0 mg/dL 8.5-10.1 [facility] Serum or plasma creatinine m easurement (mass/volume)Ordered By: Pete Payne on 12-01-2022 Creatinine [Mass/Vol] 1.12 mg/dL 0.55-1.02 [facility] Comment on above: The validity of the calculated GFR & GFRAA in patients over 70 years has not been determined. Clinical correlation is essential. Serum or plasma urea nitroge n measurement (mass/volume)Ordered By: Pete Payne on 12-01-2022 Urea nitrogen [Mass/Vol] 18 mg/dL 7-18 [facility] Thin prep Papanicolaou smear with manual screeningOrdered By: Pete Payne on 12-01-2022 Thin prep Papanicolaou smear with manual screening 15 U/L 15-37 [facility] Thin prep Papanicolaou smear with manual screening 9 5-15 [facility] Glucose Glucometer (BldC) [M ass/Vol]Ordered By: Dr. Crooks on 11-29-2022 Glucose [Mass/Vol] 95 mg/dL 74-106 [facility] Comment on above: MANAGEMENT OF PATIEN T CARE PER NURSING PROTOCOL Absolute lymphocyte countOrd ered By: Dr. Crooks on 11-28-2022 Lymphocytes Auto (Unsp spec) [#/Vol] 2.74 10*3/uL 0.83-4.51 [facility] Basophil percentageOrdered B y: Dr. Crooks on 11-28-2022 Basophils/100 WBC (Bld) 0.9 % 0-1 [facility] Chloride [Moles/Vol] 104 mmol/L 98-[address] [facility] Eosinophils/100 WBC (Bld) 2.2 % 0-5 [facility] Glucose [Mass/Vol] 146 mg/dL 74-106 [facility] Comment on above: Fasting Glucose resu lt greater than or equal to 126 mg/dL suggests DIABETES MELLITUS per A.D.A. criteria. Neutrophils (Bld) [#/Vol] 7.4 10*3/uL 2.0-7.7 [facility] Neutrophils/100 WBC (Bld) 65.0 % 47-70 [facility] Potassium [Moles/Vol] 4.2 mmol/L 3.5-5.1 [facility] Sodium [Moles/Vol] 137 mmol/L 136-145 [facility] WBC (Bld) [#/Vol] 11.4 10*3/uL 4.4-11.0 [facility] Blood erythrocytes count (nu mber/volume)Ordered By: Dr. Crooks on 11-28-2022 RBC (Bld) [#/Vol] 3.62 10*6/uL 4.2-5.4 [facility] Blood hemoglobin measurement (mass/volume)Ordered By: Dr. Crooks on 11-28-2022 Hemoglobin (Bld) [Mass/Vol] 11.2 g/dL 12.0-15.0 [facility] Blood lymphocytes/100 leukoc ytesOrdered By: Dr. Crooks on 11-28-2022 Lymphocytes/100 WBC (Bld) 24.1 % 19-41 [facility] Blood monocytes/100 leukocyt esOrdered By: Dr. Crooks on 11-28-2022 Monocytes/100 WBC (Bld) 7.2 % 0-10 [facility] Blood platelet mean volumeOr dered By: Dr. Crooks on 11-28-2022 Platelet mean volume (Bld) [Entitic vol] 9.3 fL 6.2-12.0 [facility] Determination of erythrocyte mean corpuscular volume (MCV)Ordered By: Dr. Crooks on 11-28-2022 MCV (RBC) [Entitic vol] 96.4 fL 81-99 [facility] Glucose Glucometer (BldC) [M ass/Vol]Ordered By: Dr. Crooks on 11-28-2022 Glucose [Mass/Vol] 146 mg/dL 74-106 [facility] Comment on above: MANAGEMENT OF PATIEN T CARE PER NURSING PROTOCOL Hematocrit Auto (Bld) [Volum e fraction]Ordered By: Dr. Crooks on 11-28-2022 Hematocrit (Bld) [Volume fraction] 34.9 % 37-47 [facility] Laboratory - Chemistry and C hemistry - challengeOrdered By: Dr. Crooks on 11-28-2022 CO2 [Moles/Vol] 28.0 mmol/L 21.0-32.0 [facility] Urea nitrogen/Creatinine [Mass ratio] 18.2 mg/mg 10-20 [facility] Laboratory - Hematology and Cell countsOrdered By: Dr. Crooks on 11-28-2022 Erythrocyte distribution width (RBC) [Entitic vol] 43.3 fL 35.1-43.9 [facility] Erythrocyte distribution width (RBC) [Ratio] 12.4 % 11.6-14.6 [facility] Immature granulocytes/100 WBC (Bld) 0.600 % 0.0-0.9 [facility] Comment on above: IG% - Immature Granu locytes (promyelocytes, myelocytes and metamyelocytes) > 1% indicates that a LEFT SHIFT is Present. MCH (RBC) [Entitic mass] 30.9 pg 27.0-32.0 [facility] Nucleated RBC/100 WBC (Bld) [Ratio] 0 % 0-5 [facility] MCHC Auto (RBC) [Mass/Vol]Or dered By: Dr. Crooks on 11-28-2022 MCHC (RBC) [Mass/Vol] 32.1 g/dL 32-36 [facility] No Panel InformationOrdered By: Dr. Crooks on 11-28-2022 Estimated Creatinine Clearance Calc 37.22 ml/min [facility] Estimated GFR (MDRD) Amer 73 mL/min >60 [facility] Comment on above: GFR Calc Estimated GFR (MDRD) Non-Af Amer 61 mL/min >60 [facility] Comment on above: Non- GFR Calc Platelets bldOrdered By: Dr. Crooks on 11-28-2022 Platelets (Bld) [#/Vol] 445 10*3/uL 150-450 [facility] Serum or plasma calcium karri urement (mass/volume)Ordered By: Dr. Crooks on 11-28-2022 Calcium [Mass/Vol] 8.9 mg/dL 8.5-10.1 [facility] Serum or plasma creatinine m easurement (mass/volume)Ordered By: Dr. Crooks on 11-28-2022 Creatinine [Mass/Vol] 0.93 mg/dL 0.55-1.02 [facility] Comment on above: The validity of the calculated GFR & GFRAA in patients over 70 years has not been determined. Clinical correlation is essential. Serum or plasma urea nitroge n measurement (mass/volume)Ordered By: Dr. Crooks on 11-28-2022 Urea nitrogen [Mass/Vol] 17 mg/dL 7-18 [facility] Thin prep Papanicolaou smear with manual screeningOrdered By: Dr. Crooks on 11-28-2022 Thin prep Papanicolaou smear with manual screening 5 5-15 [facility] COVID-19 virus antigen assay Ordered By: Sylvester Crooks on 11-16-2022 SARS-CoV-2 (COVID-19) Ag IA.rapid Ql (Resp) [facility] COVID-19 virus antigen assay Ordered By: Dr. Crooks on 11-16-2022 SARS-CoV-2 (COVID-19) Ag IA.rapid Ql (Resp) [facility] Culture, urineOrdered By: Dr Néstor Crooks on 11-16-2022 Bacteria identified Cx Nom (U) Escherichia coli [facility] Bacteria identified Cx Nom (U) Klebsiella pneumoniae sp pneum [facility] Basophil percentageOrdered B y: Dr. Crooks on 11-14-2022 Basophil percentage 10-25 SEEN /hpf 0-5 [facility] Bilirubin Test strip Ql (U)O rdered By: Dr. Crooks on 11-14-2022 Bilirubin Ql (U) Negative Negative [facility] Culture, urineOrdered By: Raffi Crooks on 11-14-2022 Bacteria identified Cx Nom (U) Escherichia coli [facility] Bacteria identified Cx Nom (U) Klebsiella pneumoniae sp pneum [facility] Ketones Test strip Ql (U)Ord ered By: Dr. Crooks on 11-14-2022 Ketones Ql (U) Negative Negative [facility] Mucus LM Ql (Urine sed)Order ed By: Dr. Crooks on 11-14-2022 Mucus Ql (Urine sed) 0 SEEN /hpf [facility] Nitrite Test strip Ql (U)Ord ered By: Dr. Crooks on 11-14-2022 Nitrite Ql (U) Negative Negative [facility] No Panel InformationOrdered By: Dr. Crooks on 11-14-2022 Urine Transitional Epithelial Cells 0-5 SEEN /hpf 0-5 [facility] Protein Test strip Ql (U)Ord ered By: Dr. Crooks on 11-14-2022 Protein Ql (U) Negative Negative [facility] Squamous epithelial cells de tection in urine sediment by light microscopyOrdered By: Dr. Crooks on 11-14-2022 Epithelial cells.squamous LM Ql (Urine sed) 0-5 SEEN /hpf 5-10 [facility] Urine blood detectionOrdered By: Dr. Crooks on 11-14-2022 RBC Ql (U) 10 /ul Negative [facility] RBC Ql (U) 0-5 SEEN /hpf 0-5 [facility] Urine clarityOrdered By: Dr. Crooks on 11-14-2022 Clarity (U) Sl. Cloudy Clear [facility] Urine color determinationOrd ered By: Dr. Crooks on 11-14-2022 Color (U) Yellow Yellow [facility] Urine glucose detectionOrder ed By: Dr. Crooks on 11-14-2022 Glucose Ql (U) 100 mg/dl Normal [facility] Urine leukocyte esterase det ection by dipstickOrdered By: Dr. Crooks on 11-14-2022 Leukocyte esterase Test strip Ql (U) 100 /ul Negative [facility] Urine pHOrdered By: Dr. Crooks on 11-14-2022 pH (U) 6.0 [pH] 5.0 - 8.0 [facility] Urine sediment bacteria coun t by microscopy (number/high power field)Ordered By: Dr. Crooks on 11-14-2022 Bacteria LM.HPF (Urine sed) [#/Area] 1 /[HPF] None Seen [facility] Urine specific gravity measu rementOrdered By: Dr. Crooks on 11-14-2022 Specific gravity (U) [Rel density] 1.010 1.002-1.030 [facility] Urobilinogen Auto test strip Ql (U)Ordered By: Dr. Crooks on 11-14-2022 Urobilinogen Ql (U) Normal mg/dl Normal [facility] Absolute lymphocyte countOrd ered By: Dr. Betancur on 11-13-2022 Lymphocytes Auto (Unsp spec) [#/Vol] 3.26 10*3/uL 0.83-4.51 [facility] Basophil percentageOrdered B y: Dr. Betancur on 11-13-2022 Basophils/100 WBC (Bld) 0.7 % 0-1 [facility] Bilirubin [Mass/Vol] 1.00 mg/dL 0.20-1.[address] [facility] Comment on above: For patients on eltr ombopag therapy, use of Dimension [place] TBIL is not recommended. Chloride [Moles/Vol] 106 mmol/L 98-[address] [facility] Eosinophils/100 WBC (Bld) 1.7 % 0-5 [facility] Glucose [Mass/Vol] 150 mg/dL 74-106 [facility] Comment on above: Fasting Glucose resu lt greater than or equal to 126 mg/dL suggests DIABETES MELLITUS per A.D.A. criteria. Neutrophils (Bld) [#/Vol] 8.7 10*3/uL 2.0-7.7 [facility] Neutrophils/100 WBC (Bld) 66.3 % 47-70 [facility] Potassium [Moles/Vol] 3.9 mmol/L 3.5-5.1 [facility] Protein [Mass/Vol] 5.6 g/dL 6.4-8.2 [facility] Sodium [Moles/Vol] 132 mmol/L 136-145 [facility] WBC (Bld) [#/Vol] 13.2 10*3/uL 4.4-11.0 [facility] Blood erythrocytes count (nu mber/volume)Ordered By: Dr. Betancur on 11-13-2022 RBC (Bld) [#/Vol] 3.32 10*6/uL 4.2-5.4 [facility] Blood hemoglobin measurement (mass/volume)Ordered By: Dr. Betancur on 11-13-2022 Hemoglobin (Bld) [Mass/Vol] 10.5 g/dL 12.0-15.0 [facility] Blood lymphocytes/100 leukoc ytesOrdered By: Dr. Betancur on 11-13-2022 Lymphocytes/100 WBC (Bld) 24.7 % 19-41 [facility] Blood monocytes/100 leukocyt esOrdered By: Dr. Betancur on 11-13-2022 Monocytes/100 WBC (Bld) 6.2 % 0-10 [facility] Blood platelet mean volumeOr dered By: Dr. Betancur on 11-13-2022 Platelet mean volume (Bld) [Entitic vol] 8.6 fL 6.2-12.0 [facility] COVID-19 virus antigen assay Ordered By: Bernice Betancur on 11-13-2022 SARS-CoV-2 (COVID-19) Ag IA.rapid Ql (Resp) [facility] COVID-19 virus antigen assay Ordered By: Dr. eBtancur on 11-13-2022 SARS-CoV-2 (COVID-19) Ag IA.rapid Ql (Resp) [facility] Determination of erythrocyte mean corpuscular volume (MCV)Ordered By: Dr. Betancur on 11-13-2022 MCV (RBC) [Entitic vol] 92.5 fL 81-99 [facility] Direct bilirubinOrdered By: Dr. Betancur on 11-13-2022 Bilirubin.direct [Mass/Vol] 0.34 mg/dL 0.00-0.30 [facility] Hematocrit Auto (Bld) [Volum e fraction]Ordered By: Dr. Betancur on 11-13-2022 Hematocrit (Bld) [Volume fraction] 30.7 % 37-47 [facility] Iron measurement (mass/mass) Ordered By: Dr. Betancur on 11-13-2022 Iron (Unsp spec) [Mass/Mass] 48 ug/dL 50-170 [facility] Laboratory - Chemistry and C hemistry - challengeOrdered By: Dr. Betancur on 11-13-2022 ALP [Catalytic activity/Vol] 35 U/L 45-117 [facility] ALT [Catalytic activity/Vol] 19 U/L 13-56 [facility] CO2 [Moles/Vol] 23.0 mmol/L 21.0-32.0 [facility] Cobalamin (Vitamin B12) [Mass/Vol] 583 pg/mL 211-911 [facility] Free T4 [Mass/Vol] 1.48 ng/dL 0.76-1.46 [facility] Globulin (S) [Mass/Vol] 2.8 g/dL 2.2-4.2 [facility] Urea nitrogen/Creatinine [Mass ratio] 17.2 mg/mg 10-20 [facility] Laboratory - Hematology and Cell countsOrdered By: Dr. Betancur on 11-13-2022 Erythrocyte distribution width (RBC) [Entitic vol] 42.5 fL 35.1-43.9 [facility] Erythrocyte distribution width (RBC) [Ratio] 12.7 % 11.6-14.6 [facility] Immature granulocytes/100 WBC (Bld) 0.400 % 0.0-0.9 [facility] Comment on above: IG% - Immature Granu locytes (promyelocytes, myelocytes and metamyelocytes) > 1% indicates that a LEFT SHIFT is Present. MCH (RBC) [Entitic mass] 31.6 pg 27.0-32.0 [facility] Nucleated RBC/100 WBC (Bld) [Ratio] 0 % 0-5 [facility] MCHC Auto (RBC) [Mass/Vol]Or dered By: Dr. Betancur on 11-13-2022 MCHC (RBC) [Mass/Vol] 34.2 g/dL 32-36 [facility] No Panel InformationOrdered By: Dr. Betancur on 11-13-2022 Estimated Creatinine Clearance Calc 35.38 ml/min [facility] Estimated GFR (MDRD) Amer 103 mL/min >60 [facility] Comment on above: GFR Calc Estimated GFR (MDRD) Non-Af Amer 85 mL/min >60 [facility] Comment on above: Non- GFR Calc Thyroid Stimulating Hormone (TSH) 1.14 uIU/mL 0.358-3.74 [facility] Total Iron Binding Capacity 214 ug/dL 250-450 [facility] Platelets bldOrdered By: Dr. Betancur on 11-13-2022 Platelets (Bld) [#/Vol] 370 10*3/uL 150-450 [facility] Serum or plasma albumin karri urement (mass/volume)Ordered By: Dr. Betancur on 11-13-2022 Albumin [Mass/Vol] 2.8 g/dL 3.2-5.0 [facility] Serum or plasma calcium karri urement (mass/volume)Ordered By: Dr. Betancur on 11-13-2022 Calcium [Mass/Vol] 8.3 mg/dL 8.5-10.1 [facility] Serum or plasma creatinine m easurement (mass/volume)Ordered By: Dr. Betancur on 11-13-2022 Creatinine [Mass/Vol] 0.70 mg/dL 0.55-1.02 [facility] Comment on above: The validity of the calculated GFR & GFRAA in patients over 70 years has not been determined. Clinical correlation is essential. Serum or plasma ferritin jolanta surement (mass/volume)Ordered By: Dr. Betancur on 11-13-2022 Ferritin [Mass/Vol] 195 ng/mL 8-252 [facility] Serum or plasma urea nitroge n measurement (mass/volume)Ordered By: Dr. Betancur on 11-13-2022 Urea nitrogen [Mass/Vol] 12 mg/dL 7-18 [facility] Thin prep Papanicolaou smear with manual screeningOrdered By: Dr. Betancur on 11-13-2022 Thin prep Papanicolaou smear with manual screening 16 U/L 15-37 [facility] Thin prep Papanicolaou smear with manual screening 3 5-15 [facility] Glucose Glucometer (BldC) [M ass/Vol]Ordered By: Dr. Brody on 11-12-2022 Glucose [Mass/Vol] 121 mg/dL 74-106 [facility] Comment on above: MANAGEMENT OF PATIEN T CARE PER NURSING PROTOCOL No Panel InformationOrdered By: Dr. Brody on 11-12-2022 Vitamin D 25-Hydroxy 43.8 ng/mL [facility] Comment on above: Vitamin D 25(OH) Sta tus Range Deficiency <20 ng/mL (50nmol/L) Insufficiency 20 - 30 ng/mL (50 - 75 nmol/L) Sufficiency 30 - 100 ng/mL (75 - 250 nmol/L) Toxicity >100 ng/mL (>250 nmol/L) Serum or plasma cortisol jolanta surement (mass/volume)Ordered By: Dr. Brody on 11-12-2022 Cortisol [Mass/Vol] 28.20 ug/dL 3.44-22.[address] [facility] Comment on above: Adult (AM) 5.27 - 22 .45 ug/dL Adult (PM) 3.44 - 16.76 ug/dLPlease note revised CORTISOL reference range effective 2019. Whole blood hemoglobin A1c/t otal hemoglobin ratio (mass fraction)Ordered By: Dr. Betancur on 11-12-2022 HbA1c (Bld) [Mass fraction] 7.0 % 3.8-5.6 [facility] Comment on above: Normal < 5.7 % Predi abetic 5.7 - 6.4 % Diabetic >or= 6.5 % Please note range changes. Absolute lymphocyte countOrd ered By: Dr. Ewing on 11-11-2022 Lymphocytes Auto (Unsp spec) [#/Vol] 4.35 10*3/uL 0.83-4.51 [facility] Basophil percentageOrdered B y: Dr. Ewing on 11-11-2022 Basophil percentage 0 SEEN /hpf 0-[address] [facility] Ammonia (P) [Moles/Vol] 16.0 umol/L 11-32 [facility] Basophils/100 WBC (Bld) 0.6 % 0-1 [facility] Bilirubin [Mass/Vol] 1.90 mg/dL 0.20-1.[address] [facility] Comment on above: For patients on eltr ombopag therapy, use of Dimension [place] TBIL is not recommended. Chloride [Moles/Vol] 91 mmol/L 98-[address] [facility] Eosinophils/100 WBC (Bld) 0.9 % 0-5 [facility] Glucose [Mass/Vol] 159 mg/dL 74-106 [facility] Comment on above: Fasting Glucose resu lt greater than or equal to 126 mg/dL suggests DIABETES MELLITUS per A.D.A. criteria. Neutrophils (Bld) [#/Vol] 8.3 10*3/uL 2.0-7.7 [facility] Neutrophils/100 WBC (Bld) 59.4 % 47-70 [facility] Potassium [Moles/Vol] 3.4 mmol/L 3.5-5.1 [facility] Protein [Mass/Vol] 7.4 g/dL 6.4-8.2 [facility] Sodium [Moles/Vol] 127 mmol/L 136-145 [facility] WBC (Bld) [#/Vol] 13.9 10*3/uL 4.4-11.0 [facility] Bilirubin Test strip Ql (U)O rdered By: Dr. Ewing on 11-11-2022 Bilirubin Ql (U) Negative Negative [facility] Blood erythrocytes count (nu mber/volume)Ordered By: Dr. Ewing on 11-11-2022 RBC (Bld) [#/Vol] 4.23 10*6/uL 4.2-5.4 [facility] Blood hemoglobin measurement (mass/volume)Ordered By: Dr. Ewing on 11-11-2022 Hemoglobin (Bld) [Mass/Vol] 13.5 g/dL 12.0-15.0 [facility] Blood lymphocytes/100 leukoc ytesOrdered By: Dr. Ewing on 11-11-2022 Lymphocytes/100 WBC (Bld) 31.3 % 19-41 [facility] Blood monocytes/100 leukocyt esOrdered By: Dr. Ewing on 11-11-2022 Monocytes/100 WBC (Bld) 7.4 % 0-10 [facility] Blood platelet mean volumeOr dered By: Dr. Ewing on 11-11-2022 Platelet mean volume (Bld) [Entitic vol] 8.8 fL 6.2-12.0 [facility] Determination of erythrocyte mean corpuscular volume (MCV)Ordered By: Dr. Ewing on 11-11-2022 MCV (RBC) [Entitic vol] 88.7 fL 81-99 [facility] Direct bilirubinOrdered By: Dr. Ewing on 11-11-2022 Bilirubin.direct [Mass/Vol] 0.47 mg/dL 0.00-0.30 [facility] Hematocrit Auto (Bld) [Volum e fraction]Ordered By: Dr. Ewing on 11-11-2022 Hematocrit (Bld) [Volume fraction] 37.5 % 37-47 [facility] Ketones Test strip Ql (U)Ord ered By: Dr. Ewing on 11-11-2022 Ketones Ql (U) 5 mg/dl Negative [facility] Laboratory - Chemistry and C hemistry - challengeOrdered By: Dr. Brody on 11-11-2022 Sodium (U) [Moles/Vol] 8 mmol/L Not Establ. [facility] Magnesium [Mass/Vol] 1.6 mg/dL 1.6-2.[address] [facility] Laboratory - Chemistry and C hemistry - challengeOrdered By: Dr. Ewing on 11-11-2022 ALP [Catalytic activity/Vol] 45 U/L 45-117 [facility] ALT [Catalytic activity/Vol] 30 U/L 13-56 [facility] CO2 [Moles/Vol] 28.0 mmol/L 21.0-32.0 [facility] Globulin (S) [Mass/Vol] 3.5 g/dL 2.2-4.2 [facility] Urea nitrogen/Creatinine [Mass ratio] 16.2 mg/mg 10-20 [facility] Laboratory - Hematology and Cell countsOrdered By: Dr. Ewing on 11-11-2022 Erythrocyte distribution width (RBC) [Entitic vol] 39.2 fL 35.1-43.9 [facility] Erythrocyte distribution width (RBC) [Ratio] 12.0 % 11.6-14.6 [facility] Immature granulocytes/100 WBC (Bld) 0.400 % 0.0-0.9 [facility] Comment on above: IG% - Immature Granu locytes (promyelocytes, myelocytes and metamyelocytes) > 1% indicates that a LEFT SHIFT is Present. MCH (RBC) [Entitic mass] 31.9 pg 27.0-32.0 [facility] Nucleated RBC/100 WBC (Bld) [Ratio] 0 % 0-5 [facility] MCHC Auto (RBC) [Mass/Vol]Or dered By: Dr. Ewing on 11-11-2022 MCHC (RBC) [Mass/Vol] 36.0 g/dL 32-36 [facility] Mucus LM Ql (Urine sed)Order ed By: Dr. Ewing on 11-11-2022 Mucus Ql (Urine sed) 0 SEEN /hpf [facility] Nitrite Test strip Ql (U)Ord ered By: Dr. Ewing on 11-11-2022 Nitrite Ql (U) Negative Negative [facility] No Panel InformationOrdered By: Dr. Ewing on 11-11-2022 Estimated Creatinine Clearance Calc 27.90 ml/min [facility] Estimated GFR (MDRD) Amer 50 mL/min >60 [facility] Comment on above: GFR Calc Estimated GFR (MDRD) Non-Af Amer 41 mL/min >60 [facility] Comment on above: Non- GFR Calc Troponin I High Sensitivity 13 pg/mL 3.0-54.0 [facility] Comment on above: Please Note: New Denia t Units and Gender Specific Reference Ranges. For more information see Policy Stat Procedure [place] High Sensitivity Troponin (TNIH) and attachments. Platelets bldOrdered By: Dr. Ewing on 11-11-2022 Platelets (Bld) [#/Vol] 506 10*3/uL 150-450 [facility] Protein Test strip Ql (U)Ord ered By: Dr. Ewing on 11-11-2022 Protein Ql (U) Negative Negative [facility] Serum or plasma albumin karri urement (mass/volume)Ordered By: Dr. Ewing on 11-11-2022 Albumin [Mass/Vol] 3.9 g/dL 3.2-5.0 [facility] Serum or plasma calcium karri urement (mass/volume)Ordered By: Dr. Ewing on 11-11-2022 Calcium [Mass/Vol] 9.9 mg/dL 8.5-10.1 [facility] Serum or plasma creatinine m easurement (mass/volume)Ordered By: Dr. Ewing on 11-11-2022 Creatinine [Mass/Vol] 1.30 mg/dL 0.55-1.02 [facility] Comment on above: The validity of the calculated GFR & GFRAA in patients over 70 years has not been determined. Clinical correlation is essential. Serum or plasma urea nitroge n measurement (mass/volume)Ordered By: Dr. Ewing on 11-11-2022 Urea nitrogen [Mass/Vol] 21 mg/dL 7-18 [facility] Serum or plasma uric acid me asurement (mass/volume)Ordered By: Dr. Brody on 11-11-2022 Urate [Mass/Vol] 4.3 mg/dL 2.6-6.0 [facility] Comment on above: The drugs N-Acetylcy steine and Metamizole may falsely depress this assay. Squamous epithelial cells de tection in urine sediment by light microscopyOrdered By: Dr. Ewing on 11-11-2022 Epithelial cells.squamous LM Ql (Urine sed) 0 SEEN /hpf 5-10 [facility] Thin prep Papanicolaou smear with manual screeningOrdered By: Dr. Brody on 11-11-2022 Thin prep Papanicolaou smear with manual screening 277 mOsm/KG 280-301 [facility] Thin prep Papanicolaou smear with manual screeningOrdered By: Dr. Ewing on 11-11-2022 Thin prep Papanicolaou smear with manual screening 25 U/L 15-37 [facility] Thin prep Papanicolaou smear with manual screening 8 5-15 [facility] Urine blood detectionOrdered By: Dr. Ewing on 11-11-2022 RBC Ql (U) Negative Negative [facility] RBC Ql (U) 0 SEEN /hpf 0-5 [facility] Urine clarityOrdered By: Dr. Ewing on 11-11-2022 Clarity (U) Clear Clear [facility] Urine color determinationOrd ered By: Dr. Ewing on 11-11-2022 Color (U) Yellow Yellow [facility] Urine glucose detectionOrder ed By: Dr. Ewing on 11-11-2022 Glucose Ql (U) Normal mg/dl Normal [facility] Urine leukocyte esterase det ection by dipstickOrdered By: Dr. Ewing on 11-11-2022 Leukocyte esterase Test strip Ql (U) Negative Negative [facility] Urine osmolality measurement Ordered By: Dr. Brody on 11-11-2022 Osmolality (U) [Osmolality] 227 mOsm/KG >50 [facility] Comment on above: Normal Urine Referen ce Ranges Random: 50 - 1200 mOsm/kg H20 depending on fluid intake Random: >850 mOsm/kg after 12 hour fluid restriction 24 hour: ~300 - 900 mOsm/kg H2O Urine pHOrdered By: Dr. Atiya bender on 11-11-2022 pH (U) 6.0 [pH] 5.0 - 8.0 [facility] Urine sediment bacteria coun t by microscopy (number/high power field)Ordered By: Dr. Ewing on 11-11-2022 Bacteria LM.HPF (Urine sed) [#/Area] 0 /[HPF] None Seen [facility] Urine specific gravity measu rementOrdered By: Dr. Ewing on 11-11-2022 Specific gravity (U) [Rel density] 1.010 1.002-1.030 [facility] Urobilinogen Auto test strip Ql (U)Ordered By: Dr. Ewing on 11-11-2022 Urobilinogen Ql (U) Normal mg/dl Normal [facility] Vital Signs Date Time Vital Sign Value Performing Clinician Carmencitai prashant 11-04-2024 03:00-0400 Respiratory rate 16 /min Dr. Pete Payne MD Work Phone: [facility] 11-04-2024 00:21-0400 Body temperature 98.2 [degF] Dr. Pete Payne MD Work Phone: [facility] 11-04-2024 00:21-0400 Diastolic blood pressure 60 mm[Hg] Dr. Pete Payne MD Work Phone: [facility] 11-04-2024 00:21-0400 Heart rate 84 /min Dr. Pete Payne MD Work Phone: [facility] 11-04-2024 00:21-0400 SaO2% (BldA) [Mass fraction] 97 % Dr. Pete Payne MD Work Phone: [facility] 11-04-2024 00:21-0400 Systolic blood pressure 143 mm[Hg] Dr. Pete Payne MD Work Phone: [facility] 11-03-2024 21:08-0400 Body height 147.[address] Pete Payne MD Work Phone: [facility] 11-03-2024 21:08-0400 Body mass index (BMI) [Ratio] 29.4 kg/m2 Dr. Pete Payne MD Work Phone: [facility] 11-03-2024 21:08-0400 Body weight 63.[address] Pete Payne MD Work Phone: [facility] 07-25-2023 13:00-0500 Body temperature 97.7 [degF] Dr. Pete Payne Work Phone: [facility] 07-25-2023 13:00-0500 Diastolic blood pressure 74 mm[Hg] Dr. Pete Payne Work Phone: [facility] 07-25-2023 13:00-0500 Heart rate 86 /min Dr. Pete Payne Work Phone: [facility] 07-25-2023 13:00-0500 Respiratory rate 16 /min Dr. Pete Payne Work Phone: [facility] 07-25-2023 13:00-0500 SaO2% (BldA) [Mass fraction] 98 % Dr. Pete Payne Work Phone: [facility] 07-25-2023 13:00-0500 Systolic blood pressure 136 mm[Hg] Dr. Pete Payne Work Phone: [facility] 07-25-2023 08:00-0500 Body height 147.[address] Pete Payne Work Phone: [facility] 07-25-2023 08:00-0500 Body mass index (BMI) [Ratio] 29.2 kg/m2 Dr. Pete Payne Work Phone: [facility] 07-25-2023 08:00-0500 Body weight 63.[address] Pete Payne Work Phone: [facility] 01-20-2023 03:50-0400 Diastolic blood pressure 61 mm[Hg] Dr. Nancy Ewing Work Phone: [facility] 01-20-2023 03:50-0400 Heart rate 78 /min Dr. Nancy Ewing Work Phone: [facility] 01-20-2023 03:50-0400 Respiratory rate 18 /min Dr. Nancy Ewing Work Phone: [facility] 01-20-2023 03:50-0400 SaO2% (BldA) [Mass fraction] 97 % Dr. Nancy Ewing Work Phone: [facility] 01-20-2023 03:50-0400 Systolic blood pressure 146 mm[Hg] Dr. Nancy Ewing Work Phone: [facility] 01-20-2023 02:01-0400 Body height 147.[address] Nancy Ewing Work Phone: [facility] 01-20-2023 02:01-0400 Body mass index (BMI) [Ratio] 26.9 kg/m2 Dr. Nancy Ewing Work Phone: [facility] 01-20-2023 02:01-0400 Body temperature 97.5 [degF] Dr. Nancy Ewing Work Phone: 6(659)318-257708 [place] [address] 01-20-2023 02:01-0400 Body weight 58.[address] Nancy Ewing Work Phone: 2(727)390-608908 [place] [address] 11-29-2022 09:42-0400 Heart rate 92 /min Dr. Nancy Ewing Work Phone: 4(960)305-350508 [place] [address] 11-29-2022 09:42-0400 Respiratory rate 16 /min Dr. Nancy Ewing Work Phone: 9(576)050-540708 [place] [address] 11-29-2022 09:42-0400 SaO2% (BldA) [Mass fraction] 97 % Dr. Nancy Ewing Work Phone: 2(353)360-230608 [place] [address] 11-29-2022 09:41-0400 Body temperature 97.6 [degF] Dr. Nancy Ewing Work Phone: 6(111)596-264008 [place] [address] 11-29-2022 09:41-0400 Diastolic blood pressure 59 mm[Hg] Dr. Nancy Ewing Work Phone: 5(677)708-842408 [place] [address] 11-29-2022 09:41-0400 Systolic blood pressure 144 mm[Hg] Dr. Nancy Ewing Work Phone: 3(698)822-768908 [place] [address] 11-28-2022 13:27-0400 Body temperature 97.1 [degF] Dr. Nancy Ewing Work Phone: 0(374)533-902908 [place] [address] 11-28-2022 13:27-0400 Diastolic blood pressure 61 mm[Hg] Dr. Nancy Ewing Work Phone: 3(322)759-522208 [place] [address] 11-28-2022 13:27-0400 Heart rate 65 /min Dr. Nancy Ewing Work Phone: 0(607)190-431408 [place] [address] 11-28-2022 13:27-0400 Respiratory rate 16 /min Dr. Nancy Ewing Work Phone: 5(319)713-384808 [place] [address] 11-28-2022 13:27-0400 SaO2% (BldA) [Mass fraction] 95 % Dr. Nancy Ewing Work Phone: 3(911)351-549608 [place] [address] 11-28-2022 13:27-0400 Systolic blood pressure 133 mm[Hg] Dr. Nancy Ewing Work Phone: 7(171)863-682508 [place] [address] 11-26-2022 14:37-0400 Body height 147.[address] Nancy Ewing Work Phone: 2(317)955-445408 [place] [address] 11-26-2022 14:37-0400 Body weight 54.[address] Nancy Ewing Work Phone: 4(054)921-839708 [place] [address] 11-25-2022 12:48-0400 Body mass index (BMI) [Ratio] 25 kg/m2 Dr. Nancy Ewing Work Phone: 5(708)676-736108 [place] [address] 11-13-2022 14:35-0400 Body temperature 98 [degF] Dr. Nancy Ewing Work Phone: 5(505)737-825708 [place] [address] 11-13-2022 14:35-0400 Diastolic blood pressure 48 mm[Hg] Dr. Nancy Ewing Work Phone: 5(782)765-090308 [place] [address] 11-13-2022 14:35-0400 Heart rate 71 /min Dr. Nancy Ewing Work Phone: 6(538)053-587108 [place] [address] 11-13-2022 14:35-0400 Respiratory rate 18 /min Dr. Nancy Ewing Work Phone: 4(143)822-581308 [place] [address] 11-13-2022 14:35-0400 SaO2% (BldA) [Mass fraction] 100 % Dr. Nancy Ewing Work Phone: 2(323)636-604108 [place] [address] 11-13-2022 14:35-0400 Systolic blood pressure 123 mm[Hg] Dr. Nancy Ewing Work Phone: 9(971)220-758008 [place] [address] 11-12-2022 12:32-0400 Body height 147.[address] Nancy Ewing Work Phone: 1(787)834-731008 [place] [address] 11-12-2022 12:32-0400 Body weight 55.[address] Nancy Ewing Work Phone: 0(632)414-256208 [place] [address] 11-11-2022 22:57-0400 Body mass index (BMI) [Ratio] 25.5 kg/m2 Dr. Nancy Ewing Work Phone: [facility] 11-11-2022 21:44-0400 Body temperature 97.8 [degF] Dr. Nancy Ewing Work Phone: [facility] 11-11-2022 21:44-0400 Diastolic blood pressure 60 mm[Hg] Dr. Nancy Ewing Work Phone: [facility] 11-11-2022 21:44-0400 Heart rate 75 /min Dr. Nancy Ewing Work Phone: [facility] 11-11-2022 21:44-0400 Respiratory rate 17 /min Dr. Nancy Ewing Work Phone: [facility] 11-11-2022 21:44-0400 SaO2% (BldA) [Mass fraction] 100 % Dr. Nancy Ewing Work Phone: [facility] 11-11-2022 21:44-0400 Systolic blood pressure 134 mm[Hg] Dr. Nancy Ewing Work Phone: [facility] 11-11-2022 16:37-0400 Body height 147.[address] Nancy Ewing Work Phone: [facility] 11-11-2022 16:37-0400 Body mass index (BMI) [Ratio] 26.2 kg/m2 Dr. Nancy Ewing Work Phone: [facility] 11-11-2022 16:37-0400 Body weight 56.[address] Nancy Ewing Work Phone: [facility] Encounters Encounter Date Encounter Type Care Provider Facility Start: 02-21-2025 ambulatory Pete Hightower ty:[facility] Start: 02-21-2025 Registered Referred Pete Payne MD [facility] Start: 02-06-2025 ambulatory Pete ROBERTS Fa cility:[facility] Start: 02-06-2025 Registered Referred Pete Virk Start: 01-17-2025 End: 01-17-[address] Pete Payne MD Work Phone: [facility] Start: 01-17-2025 End: 01-17-[address] Pete Payne MD -[facility] Work Phone: Start: 01-13-2025 ambulatory Pete ROBERTS Fa cility:[facility] Start: 01-13-2025 Registered Referred Pete Virk Start: 01-03-2025 End: 01-03-[address] Pete Payne MD Work Phone: [facility] Start: 01-03-2025 End: 01-03-2025 Patient encounter procedure Poppy Cadenanickie [facility] Work Phone: Start: 12-26-2024 ambulatory Pete ROBERTS Fa cility:[facility] Start: 12-26-2024 Registered Referred Pete Virk Start: 12-13-2024 End: 12-13-[address] Pete Payne MD Work Phone: [facility] Work Phone: Start: 12-13-2024 End: 12-13-2024 Departed Referred Pete Virk Start: 12-13-2024 Registered Referred Pete Virk Start: 12-13-2024 End: 12-13-2024 ambulatory Pete ROBERTS Facility:[facility] Start: 12-06-2024 End: 12-06-[address] Pete Payne MD Work Phone: [facility] Start: 12-06-2024 End: 12-06-[address] Pete Payne MD -[facility] Work Phone: Start: 11-22-2024 End: 11-22-[address] Pete Payne MD Work Phone: [facility] Work Phone: Start: 11-22-2024 End: 11-22-2024 Departed Referred Pete Payne MD -[facility] Start: 11-22-2024 Registered Referred [facility] MD -[facility] Start: 11-22-2024 End: 11-22-2024 ambulatory Pete ROBERTS Facility:[facility] Start: 11-14-2024 End: 11-14-[address] Pete Payne MD Work Phone: [facility] Work Phone: Start: 11-14-2024 End: 11-14-2024 Departed Referred Pete Payne MD -[facility] Start: 11-14-2024 End: 11-14-2024 ambulatory Pete ROBERTS Facility:[facility] Start: 11-03-2024 End: 11-04-2024 Emergency department patient visit Dr. Pete Payne MD Work Phone: -Emergency Department Work Phone: Start: 10-21-2024 End: 10-21-2024 ambulatory Poppy Mccracken NP [facility] Start: 10-21-2024 End: 10-21-2024 Patient encounter procedure Poppy Mccracken [employer]- -[facility] Work Phone: Start: 10-17-2024 End: 10-17-[address] Pete Payne MD Work Phone: [facility] Work Phone: Start: 10-17-2024 End: 10-17-2024 Departed Referred Pete Virk Start: 10-17-2024 Registered Referred Pete Virk Start: 10-17-2024 End: 10-17-2024 ambulatory Pete Payne OLS Facility:[facility] Start: 10-10-2024 End: 10-10-[address] Pete Payne MD Work Phone: [facility] Work Phone: Start: 10-10-2024 End: 10-10-2024 Departed Referred Pete Virk Start: 10-10-2024 Registered Referred Pete Virk Start: 10-10-2024 End: 10-10-2024 ambulatory Pete ROBERTS Facility:[facility] Start: 10-06-2024 End: 10-06-[address] Pete Payne MD Work Phone: [facility] Work Phone: Start: 10-06-2024 End: 10-06-2024 Departed Referred Pete Virk Start: 10-06-2024 Registered Referred Pete Virk Start: 10-06-2024 End: 10-06-2024 ambulatory Pete Payne Facility:[facility] Start: 10-03-2024 End: 10-03-[address] Pete Payne MD Work Phone: [facility] Work Phone: Start: 10-03-2024 End: 10-03-2024 Departed Referred Pete Virk Start: 10-03-2024 End: 10-03-2024 ambulatory Pete Payne Facility:[facility] Start: 09-20-2024 End: 09-20-2024 ambulatory Efewongbe Oleghe Facility:[facility] Start: 09-20-2024 End: 09-20-[address] Pete Payne MD -[facility] Work Phone: Start: 09-01-2024 End: 09-01-2024 ambulatory Mateo CRANDALL Facility:[facility] Start: 09-01-2024 End: 09-01-2024 Patient encounter procedure Mateo CRANDALL -[facility] Work Phone: Start: 08-23-2024 ambulatory Efewongbe Oleghe Facili ty:[facility] Start: 08-23-2024 Registered Referred Pete ZunigaEllie Moose Start: 07-11-2024 End: 07-11-2024 Departed Referred Pete ZunigaEllie Moose Start: 07-11-2024 End: 07-11-2024 ambulatory Efewongbe Kentrellriteshe Facility:[facility] Start: 06-21-2024 End: 06-21-2024 ambulatory Poppy Mccracken NP Facility:[facility] Start: 06-21-2024 End: 06-21-2024 Patient encounter procedure Poppy Mccracken [employer]-C -[facility] Work Phone: Start: 05-31-2024 End: 05-31-2024 ambulatory Efewongbe Kentrellghe Facility:[facility] Start: 05-30-2024 End: 05-30-2024 ambulatory Efewongbe Oleriteshe OLS Facility:[facility] Start: 05-24-2024 End: 05-24-2024 [facility] Start: 05-03-2024 End: 05-03-2024 ambulatory Efewongbe Oleghe Facility:[facility] Start: 04-18-2024 End: 04-18-2024 [facility] Start: 03-22-2024 End: 03-22-2024 ambulatory Efewongbe Oleghe Facility:[facility] Start: 03-07-2024 End: 03-07-2024 [facility] Start: 08-25-2023 End: 08-25-[address] Pete Payne Work Phone: [facility] Work Phone: Start: 08-25-2023 End: 08-25-[address] Pete Payne Work Phone: [facility] Start: 07-25-2023 End: 07-25-2023 Emergency department patient visit Dr. Pete Payne Work Phone: [facility] Work Phone: Start: 07-02-2023 End: 07-02-[address] Pete Payne Work Phone: [facility] Work Phone: Start: 06-02-2023 End: 06-02-[address] Pete Payne Work Phone: [facility] Work Phone: Start: 05-04-2023 End: 05-04-[address] Pete Payne Work Phone: [facility] Work Phone: Start: 03-31-2023 End: 03-31-[address] Pete Payne Work Phone: [facility] Work Phone: Start: 03-16-2023 End: 03-16-[address] Pete Payne Work Phone: [facility] Work Phone: Start: 03-16-2023 End: 03-16-[address] Pete Payne Work Phone: [facility] Start: 03-16-[address] Madison Payne Work Phone: [facility] Start: 03-14-2023 End: 03-14-[address] Pete Payne Work Phone: [facility] Work Phone: Start: 03-12-2023 End: 03-12-[address] Pete Payne Work Phone: [facility] Work Phone: Start: 03-12-2023 End: 03-12-[address] Pete Payne Work Phone: [facility] Start: 01-27-2023 End: 01-27-[address] Pete Payne Work Phone: [facility] Work Phone: Start: 01-20-2023 End: 01-20-2023 Emergency department patient visit Dr. Nancy Ewing Work Phone: [facility] Work Phone: Start: 12-23-2022 End: 12-23-2022 Patient encounter procedure Dr. Pete Payne Work Phone: [facility] Work Phone: Start: 12-02-2022 End: 12-02-[address] Nancy Ewing Work Phone: [facility] Work Phone: Start: 12-01-2022 End: 12-01-[address] Nancy Ewing Work Phone: [facility] Work Phone: Start: 12-01-2022 End: 12-01-[address] Nancy Ewing Work Phone: [facility] [place] Start: 11-24-2022 End: 11-24-[address] Nancy Ewing Work Phone: [facility] Work Phone: Start: 11-24-2022 End: 11-24-[address] Nancy Ewing Work Phone: [facility]-Cat Scan, [facility] Start: 11-13-2022 End: 11-29-2022 Evaluation and management of inpatient Dr. Nancy Ewing Work Phone: [facility] Start: 11-13-2022 Non-patient / Non-visit Dr. Christophe Ewing Work Phone: [facility] Start: 11-12-2022 Non-patient / Non-visit Dr. Christophe Ewing Work Phone: [facility] Start: 11-11-2022 Non-patient / Non-visit Dr. Christophe Ewing Work Phone: [facility] Start: 11-11-2022 End: 11-13-2022 Evaluation and management of inpatient Dr. Nancy Ewing Work Phone: [facility]-Medical Surgical 3 Procedures Date Procedure Procedure Detail Performing Clinician Start: 02-21-2025 Vitamin D, 25-hydrox y measurement Dr. Pete Payne MD Work Phone: Comment on above: Vitamin D StatusDefi ciency: <20 ng/mL (50nmol/L)Insufficiency: 20-30 ng/mL (50-75 nmol/L)Sufficiency: 30-100 ng/mL (75-250 nmol/L)Toxicity: >100 ng/mL (>250 nmol/L) Start: 11-03-2024 CT cervical spine wi thout [...] Activity Detail Author Start: 11-04-2024 [facility] Start: 11-03-2024 Simple repair f/e/e/ n/l/m 2.6cm-5.0 cm RPR F/E/E/N/L/M 2.6-5.0 CM [facility] Start: 07-25-2023 [facility] Start: 01-02-2023 Blood chemistry [facility] Start: 12-26-2022 Blood chemistry [facility] Start: 12-19-2022 Blood chemistry [facility] Start: 12-12-2022 Blood chemistry [facility] Start: 12-05-2022 Blood chemistry [facility] Start: 11-29-2022 Patient discharge [facility] Start: 11-28-2022 Development of care plan [facility] Start: 11-20-2022 [facility] Start: 11-20-2022 [facility] Start: 11-19-2022 Palliative care [facility] Start: 11-19-2022 [facility] Start: 11-18-2022 [facility] Start: 11-17-2022 [facility] Start: 11-16-2022 [facility] Start: 11-15-2022 [facility] Start: 11-14-2022 Developing a treatment plan [facility] Start: 11-14-2022 Speech therapy management [facility] Start: 11-14-2022 Development of care plan [facility] Start: 11-14-2022 End: 11-14-2022 [facility] Start: 11-13-2022 [facility] Start: 11-13-2022 Speech therapy assessment [facility] Start: 11-13-2022 Following clinical p athway protocol [facility] Start: 11-13-[address] [facility] Start: 11-13-2022 Measuring intake and output [facility] Start: 11-13-2022 Patient referral to dietitian [facility] Start: 11-13-2022 Referral to occupati onal therapist [facility] Start: 11-13-[address] [facility] Start: 11-13-2022 Verification routine [facility] Start: 11-13-2022 Vital signs measurements [facility] Start: 11-13-2022 [facility] Start: 11-13-2022 Patient discharge [facility] Start: 11-12-2022 Vitamin D, 25-hydrox y measurement [facility] Start: 11-12-2022 [facility] Start: 11-12-2022 [facility] Start: 11-11-2022 Blood chemistry [facility] Start: 11-11-2022 Following clinical p athway protocol [facility] Start: 11-11-2022 Assessment of risk o f venous thromboembolism [facility] Start: 11-11-2022 Insertion of cathete r into peripheral vein [facility] Start: 11-11-2022 Oxygen therapy [facility] Start: 11-11-2022 Providing care accor ding to standard [facility] Start: 11-11-2022 Provision of activit y privileges [facility] Start: 11-11-2022 Referral to occupati onal therapist [facility] Start: 11-11-[address] [facility] Start: 11-11-2022 [facility] Start: 11-11-2022 Verification routine [facility] Start: 11-11-[address] [facility] Start: 11-11-2022 Patient referral to dietitian [facility] Alanine aminotransfe rase [Enzymatic activity/volume] in Serum or Plasma [facility] Albumin [Mass/volume ] in Serum or Plasma [facility] Alkaline phosphatase [Enzymatic activity/volume] in Serum or Plasma [facility] Anion gap measurement [facility] Anion gap measurement [facility] Anion gap measurement [facility] Anion gap measurement [facility] Anion gap measurement [facility] Anion gap measurement [facility] Aspartate aminotrans ferase [Enzymatic activity/volume] in Serum or Plasma [facility] Bilirubin, total measurement [facility] Bilirubin.direct [Mass/volume] in Serum or Plasma [facility] BUN/Creatinine ratio [facility] BUN/Creatinine ratio [facility] BUN/Creatinine ratio [facility] BUN/Creatinine ratio [facility] BUN/Creatinine ratio [facility] BUN/Creatinine ratio [facility] Calcium [Mass/volume ] in Serum or Plasma [facility] Calcium [Mass/volume ] in Serum or Plasma [facility] Calcium [Mass/volume ] in Serum or Plasma [facility] Calcium [Mass/volume ] in Serum or Plasma [facility] Calcium [Mass/volume ] in Serum or Plasma [facility] Calcium [Mass/volume ] in Serum or Plasma [facility] Carbon dioxide, tota l [Moles/volume] in Serum or Plasma [facility] Carbon dioxide, tota l [Moles/volume] in Serum or Plasma [facility] Carbon dioxide, tota l [Moles/volume] in Serum or Plasma [facility] Carbon dioxide, tota l [Moles/volume] in Serum or Plasma [facility] Carbon dioxide, tota l [Moles/volume] in Serum or Plasma [facility] Carbon dioxide, tota l [Moles/volume] in Serum or Plasma [facility] Chloride [Moles/volu me] in Serum or Plasma [facility] Chloride [Moles/volu me] in Serum or Plasma [facility] Chloride [Moles/volu me] in Serum or Plasma [facility] Chloride [Moles/volu me] in Serum or Plasma [facility] Chloride [Moles/volu me] in Serum or Plasma [facility] Chloride [Moles/volu me] in Serum or Plasma [facility] Cortisol [Mass/volum e] in Serum or Plasma [facility] Creatinine [Moles/vo lume] in Serum or Plasma [facility] Creatinine [Moles/vo lume] in Serum or Plasma [facility] Creatinine [Moles/vo lume] in Serum or Plasma [facility] Creatinine [Moles/vo lume] in Serum or Plasma [facility] Creatinine [Moles/vo lume] in Serum or Plasma [facility] Creatinine [Moles/vo lume] in Serum or Plasma [facility] Glucose [Mass/volume ] in Serum or Plasma [facility] Glucose [Mass/volume ] in Serum or Plasma [facility] Glucose [Mass/volume ] in Serum or Plasma [facility] Glucose [Mass/volume ] in Serum or Plasma [facility] Glucose [Mass/volume ] in Serum or Plasma [facility] Glucose [Mass/volume ] in Serum or Plasma [facility] Hematocrit [Volume F raction] of Blood [facility] Hematocrit [Volume F raction] of Blood [facility] Hematocrit [Volume F raction] of Blood [facility] Hematocrit [Volume F raction] of Blood [facility] Hematocrit [Volume F raction] of Blood [facility] Hematocrit [Volume F raction] of Blood [facility] Hemoglobin [Mass/vol ume] in Blood [facility] Hemoglobin [Mass/vol ume] in Blood [facility] Hemoglobin [Mass/vol ume] in Blood [facility] Hemoglobin [Mass/vol ume] in Blood [facility] Hemoglobin [Mass/vol ume] in Blood [facility] Hemoglobin [Mass/vol ume] in Blood [facility] Leukocytes [#/volume ] in Blood [facility] Leukocytes [#/volume ] in Blood [facility] Leukocytes [#/volume ] in Blood [facility] Leukocytes [#/volume ] in Blood [facility] Leukocytes [#/volume ] in Blood [facility] Leukocytes [#/volume ] in Blood [facility] Magnesium [Mass/volu me] in Serum or Plasma [facility] Mean corpuscular hem oglobin concentration determination [facility] Mean corpuscular hem oglobin concentration determination [facility] Mean corpuscular hem oglobin concentration determination [facility] Mean corpuscular hem oglobin concentration determination [facility] Mean corpuscular hem oglobin concentration determination [facility] Mean corpuscular hem oglobin concentration determination [facility] Mean corpuscular hem oglobin determination [facility] Mean corpuscular hem oglobin determination [facility] Mean corpuscular hem oglobin determination [facility] Mean corpuscular hem oglobin determination [facility] Mean corpuscular hem oglobin determination [facility] Mean corpuscular hem oglobin determination [facility] Measurement of renal function [facility] Measurement of renal function [facility] Measurement of renal function [facility] Measurement of renal function [facility] Measurement of renal function [facility] Measurement of renal function [facility] Neutrophil count [facility] Neutrophil count [facility] Neutrophil count [facility] Neutrophil count [facility] Neutrophil count [facility] Neutrophil count [facility] Neutrophil percent differential count [facility] Neutrophil percent differential count [facility] Neutrophil percent differential count [facility] Neutrophil percent differential count [facility] Neutrophil percent differential count [facility] Neutrophil percent differential count [facility] Patient Education [facility] Work Phone: Patient referral [facility] Work Phone: Platelets [#/volume] in Blood [facility] Platelets [#/volume] in Blood [facility] Platelets [#/volume] in Blood [facility] Platelets [#/volume] in Blood [facility] Platelets [#/volume] in Blood [facility] Platelets [#/volume] in Blood [facility] Potassium [Moles/vol ume] in Serum or Plasma [facility] Potassium [Moles/vol ume] in Serum or Plasma [facility] Potassium [Moles/vol ume] in Serum or Plasma [facility] Potassium [Moles/vol ume] in Serum or Plasma [facility] Potassium [Moles/vol ume] in Serum or Plasma [facility] Potassium [Moles/vol ume] in Serum or Plasma [facility] Red blood cell count [facility] Red blood cell count [facility] Red blood cell count [facility] Red blood cell count [facility] Red blood cell count [facility] Red blood cell count [facility] Red cell distributio n width determination [facility] Red cell distributio n width determination [facility] Red cell distributio n width determination [facility] Red cell distributio n width determination [facility] Red cell distributio n width determination [facility] Red cell distributio n width determination [facility] Sodium [Moles/volume ] in Serum or Plasma [facility] Sodium [Moles/volume ] in Serum or Plasma [facility] Sodium [Moles/volume ] in Serum or Plasma [facility] Sodium [Moles/volume ] in Serum or Plasma [facility] Sodium [Moles/volume ] in Serum or Plasma [facility] Sodium [Moles/volume ] in Serum or Plasma [facility] Total protein measurement [facility] Urate [Mass/volume] in Serum or Plasma [facility] Urea nitrogen [Mass/ volume] in Serum or Plasma [facility] Urea nitrogen [Mass/ volume] in Serum or Plasma [facility] Urea nitrogen [Mass/ volume] in Serum or Plasma [facility] Urea nitrogen [Mass/ volume] in Serum or Plasma [facility] Urea nitrogen [Mass/ volume] in Serum or Plasma [facility] Urea nitrogen [Mass/ volume] in Serum or Plasma [facility] Immunizations Immunization Date Immunization Notes Care Provider Fa [facility] 07-03-2022 Covmehdi Stewart Bivalen t Booster Dr. Nancy Ewing Work Phone: [facility] 06-06-2021 Covid (Pfizer) Dr. Nancy Ewing Work Phone: [facility] 08-16-2020 Covid (Pfizer) Dr. Nancy Ewing Work Phone: [facility] 07-26-2020 Covid (Pfizer) Dr. Nancy Ewing Work Phone: [facility] 07-20-2012 pneumococcal conjuga te vaccine, [address] Nancy Ewing Work Phone: [facility] 07-20-2001 pneumococcal vaccine , unspecified formulation Dr. Nancy Ewing Work Phone: [facility] Payers Date Payer Category Payer Medicaid [id number] 2024 Self-pay [id number] Private Health Insurance [id number] 2001 Medicare MEDICARE PART A B [id number] Unknown AARP MCR ADV [id number] Unknown [id number] Unknown [id number] ..1.896781.3.579.2.462 Unknown [id number] 2.0.1.112326.3.579.2.462 Unknown [id number] 2.0.1.195461.3.579.2.462 Unknown [id number] 2..1.376135.3.579.2.462 Unknown [id number] 2.16.840.1.291050.3.579.2.462 Unknown [id number] 2.16.840.1.086658.3.579.2.462 Unknown [id number] 2.16.840.1.044551.3.579.2.462 Unknown [id number] 2.16.840.1.386764.3.579.2.462 Unknown [id number] 2.840.1.498566.3.579.2.462 Unknown [id number] 2.840.1.830079.3.579.2.462 Unknown [id number] 2.840.1.518238.3.579.2.462 Unknown [id number] 2.840.1.999605.3.579.2.462 Unknown [id number] 2.840.1.638579.3.579.2.462 Unknown [id number] 2.840.1.281839.3.579.2.462 Unknown [id number] 2.840.1.488851.3.579.2.462 Unknown [id number] 2.840.1.566144.3.579.2.462 Unknown [id number] 2.840.1.023884.3.579.2.462 Unknown [id number] 2.840.1.743436.3.579.2.462 Unknown [id number] 2.840.1.698234.3.579.2.462 Unknown [id number] 2.840.1.822515.3.579.2.462 Unknown [id number] 2.840.1.429020.3.579.2.462 Unknown [id number] 2.16840.1.364000.3.579.2.462 Unknown [id number] 2.840.1.754040.3.579.2.462 Unknown [id number] 2.16.840.1.963517.3.579.2.462 Unknown [id number] 2.16.840.1.337830.3.579.2.462 Unknown [id number] 2.16.840.1.766088.3.579.2.462 Unknown [id number] 2.16.840.1.398731.3.579.2.462 Social History Date Type Detail Facility Start: 11-11-2022 End: 07-25-2023 Tobacco smoking status NHIS Unknown if ever smoked [facility] Start: 11-11-2022 Rare [facility] Start: 11-11-2022 None [facility] Start: 11-11-2022 Homeless [facility] Start: 11-11-2022 Non-smoker [facility] Start: 1935 Sex Assigned At Female [facility] Start: 07-25-2023 End: 11-03-2024 Tobacco smoking status NHIS Never smoked tobacco (finding) [facility] Start: 10-19-2024 End: 11-08-2024 Sex Female (finding) [facility] Goals Date Patient Goal Desired Activity /State Functional Status Date Assessment Result Facility 11-29-2022 Functional status Ambulates [facility] Work Phone: 11-28-2022 Functional status Ambulates [facility] Work Phone: 11-13-2022 Functional status 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 [facility] Work Phone: Mental Status Date Assessment Result Facility 07-25-2023 Cognitive function Voice[facility]Name [facility] Work Phone: 11-29-2022 Cognitive function Voice/Name [facility] Work Phone: 11-27-2022 Cognitive function Voice/Name [facility] Work Phone: 11-26-2022 Cognitive function Appropriate;Cooperativ e [facility] Work Phone: 11-13-2022 Cognitive function Voice/Name [facility] Work Phone: Clinical Notes 11-12-2022 to 11-04-2024 Note Date & Type Note Facility 11-04-2024 Discharge summary Note Date/Time November 04, 2024 12:36am [facility] Medical Records Department [address] [place] [address] Emergency Department Summary 11/03/24 MR#: [id number] Acct: [id number] Name: MAXIME AMARAL Rep #:[id number] : 1935 89 From: Alirio Patel PCP: Dr. Pete Payne MD Status:R EG ER Location: ED HPI HPI - Fall History of Present Illness Chief Complaint: Fall Informant: patient and family Narrative Narrative: Patient brought in by EMS from [facility] witnessed fall head injury. Patient [...] paperwork. She has baseline per son. [facility] Medical History Dry eye syndrome of [...] clinician: N/A This note was generated with ChatIDation software. It may contain incorrectwords, spelling, and punctuation that were not noted in checking the note beforesigning. Radiography Diagnostic Testing: Clinical Impression(s) from Imaging Studies Shoulder X-Ray 11/03/24 21:48 IMPRESSION: NO ACUTE FRACTURE OR DISLOCATION. Reading [facility] 11/03/24 22:10 IMPRESSION: CHRONIC CHANGES. NO ACUTE FINDINGS. Reading Location: [facility] Cervical Spine CT 11/03/24 22:10 IMPRESSION: NO ACUTE CERVICAL FRACTURE. DEGENERATIVE CHANGES. No acute fracture or subluxation. Reading Location: [facility] Facial/Sinus 11/03/24 22:10 IMPRESSION: Small soft tissue laceration along the right supraorbital region. No acute fracture. Reading Location: [facility] Discharge Plan Triage Chief Complaint: Fall [...] in 5 to 7 days. Print Language: Albanian Disposition Disposition: Home, Self Care What to do if you have Problems For any increased pain, shortness of breath, bleeding, nausea or vomiting, chestpain, or any unexpected problems, contact your Primary Care Provider. Call [facility] ([phone]) or report to the closest Emergency Room. Call 911 if necessary. 11/04/24 0036 <Electronically signed by Alirio Patel> Cosigner Signature (if applicable): CC: Dr. Pete Payne MD ~ Signed [facility] Work Phone: 1(424) 822-212004-18-2025 Discharge summary [facility] Medical Records Department [address] [place] [address] Emergency Department Summary 11/03/24 MR#: [id number] Acct: [id number] Name: MAXIME AMARAL Rep #:[id number] : 1935 89 From: Alirio Patel PCP: Dr. Pete Payne MD Status:R EG ER Location: ED HPI HPI - Fall History of Present Illness Chief Complaint: Fall Informant: patient and family Narrative Narrative: Patient brought in by EMS from [facility] witnessed fall head injury. Patient [...] paperwork. She has baseline per son. [facility] Medical History Dry eye syndrome of [...] clinician: N/A This note was generated with ChatIDation software. It may contain incorrectwords, spelling, and punctuation that were not noted in checking the note beforesigning. Radiography Diagnostic Testing: Clinical Impression(s) from Imaging Studies Shoulder X-Ray 11/03/24 21:48 IMPRESSION: NO ACUTE FRACTURE OR DISLOCATION. Reading Location: [facility] Brain CT 11/03/24 22:10 IMPRESSION: CHRONIC CHANGES. NO ACUTE FINDINGS. Reading Location: [facility] Cervical Spine CT 11/03/24 22:10 IMPRESSION: NO ACUTE CERVICAL FRACTURE. DEGENERATIVE CHANGES. No acute fracture or subluxation. Reading Location: [facility] Facial/Sinus 11/03/24 22:10 IMPRESSION: Small soft tissue laceration along the right supraorbital region. No acute fracture. Reading Location: [facility] Discharge Plan Triage Chief Complaint: Fall [...] in 5 to 7 days. Print Language: Albanian Disposition Disposition: Home, Self Care What to do if you have Problems For any increased pain, shortness of breath, bleeding, nausea or vomiting, chestpain, or any unexpected problems, contact your Primary Care Provider. Call [facility] ([phone]) or report tothe closest Emergency Room. Call 911 if necessary. 11/04/24 0036 Cosigner Signature (if applicable): CC: Dr. Pete Payne MD ~ Signed [facility]04-17-2025 Radiology Diagnostic study note [facility] Imaging Services [address] [place] [address] [id number] Spine Cervical without Contras MR#: [id number] Acct: [id number] Name: MAXIME AMARAL Rep #: [id number] : 1935 F 89 From: Steve Sotelo DO PCP: Dr. Pete Payne MD Status: R ER Study:Spine Cervical without Contras Date of Exam: 11/03/24 Exam# [id number] Ordering Dr: Alirio Edward DO PROCEDURE: SPINE [...] No acute fracture or subluxation. Reading Location: [facility] CC: Dr. Pete Payne MD; Dr. Alirio Edward DO ~ Superintendent Maintenance: Signed [facility]04-17-2025 Radiology Diagnostic study note [facility] Imaging Services [address] [place], [place] [id number] Sinus/Facial Bone MR#: [id number] Acct: [id number] Name: MAXIME AMARAL Rep #: [id number] : 1935 F 89 From: Steve Sotelo DO PCP: Dr. Pete Payne MD Status: R ER Study:Sinus/Facial Bone Date of Exam: Exam# [id number] Ordering Dr: Alirio Edward DO PROCEDURE: SINUS/FACIAL [...] supraorbital region. No acute fracture. Reading Location: [facility] CC: Dr. Pete Payne MD; Dr. Alirio Edward DO ~ Superintendent Maintenance: Signed [facility]04-17-2025 Radiology Diagnostic study note [facility] Imaging Services [address] [place], [place] [id number] Brain/Head without Contrast MR#: [id number] Acct: [id number] Name: MAXIME AMARAL Rep #: [id number] : 1935 F 89 From: Steve Sotelo DO PCP: Dr. Pete Payne MD Status: R EG ER Study:Brain/Head without Contrast Date of Exa m: 11/03/24 Exam# [id number] Ordering Dr: Alirio Edward DO PROCEDURE: BRAIN/HEAD [...] CHRONIC CHANGES. NO ACUTE FINDINGS. Reading Location: [facility] CC: Dr. Pete Payne MD; Dr. Alirio Edwadr DO ~ Superintendent Maintenance: Signed [facility]04-17-2025 Radiology Diagnostic study note [facility] Imaging Services [address] [place] [address] Shoulder min 2 Views MR#: [id number] Acct: [id number] Name: MAXIME AMARAL Rep #: [id number] : 1935 F 89 From: Steve Sotelo DO PCP: Dr. Pete Payne MD Status: R EG ER Study:Shoulder min 2 Views Date of Exam: 11/03/24 Exam# [id number] Ordering Dr: Alirio Edward DO PROCEDURE: SHOULDER [...] Payne MD; Dr. Alirio Edward DO ~ Superintendent Maintenance: Signed [facility]01-06-2024 Discharge summary Author Jos Rush [facility] July 25, 2023 8:48am Note Date/Time July 25, 2023 8: 48am [facility] Medical Records Department [address] [place] [address] Emergency Department Summary 07/25/23 MR#: [id number] Acct: [id number] Name: MAXIME AMARAL Rep #:[id number] : 1935 87 From: Jos Rush DO PCP: Dr. Pete Payne MD Status:R EG ER Location: ED HPI History of Present Illness Chief Complaint: Fall Informant: patient and SNF Narrative Narrative: Patient is a 87-year-old female with history of hypertension hyperlipidemia hypothyroidism type 2 diabetes and debility as well as Alzheimer's disease. Sheis typically A&O x 1. longterm states that she was found on her [...] this time but otherwise denies any symptoms [facility] Medical History Alzheimer's disease, unspecified [...] is otherwise safe to return to the alf Radiography Diagnostic Testing: Clinical Impression(s) from Imaging Studies Brain CT 07/25/23 04:58 IMPRESSION: No acute intracranial abnormality. Stable moderate chronic changes. Electronically Signed: Gabrielle Gallegos MD at 6:20 EST Reading Location ID and State: [facility] / [place] Tel , Service support , Cervical Spine CT 07/25/23 04:58 IMPRESSION: No acute posttraumatic abnormality. Multilevel degenerative changes. Electronically Signed: Gabrielle Gallegos MD at 6:35 EST Reading Location ID and State: [facility] / [place] Tel , Service support , Knee X-Ray 07/25/23 04:58 IMPRESSION: 1. Small suprapatellar joint effusion. 2. Multi compartmental degenerative changes. 3. Mild double bone density at the anterior-medial femoral condyle on the sunrise patellar view, not confirmed on other views. Consider CT if there is strong clinical suspicion of acute fracture, especially anterior-medial pain. Electronically Signed: Gabrielle Gallegos MD at 6:40 EST Reading Location ID and State: [facility] / [place] Tel , Service support , Hip/Pelvis X-Ray 07/25/23 05:47 IMPRESSION: No acute pelvic or left hip fracture demonstrated. Electronically Signed: Gabrielle Gallegos MD at 6:45 EST Reading Location ID and State: [facility] / [place] Tel , Service support , Lower Extremity CT 07/25/23 06:44 IMPRESSION: 1. Small amount of presumed hemarthrosis or other complex mildly dense fluid in the suprapatellar bursa. No lipohemarthrosis or convincing acute fracture. 2. Irregular posterior-medial tibial plateau corner is not typical of acute fracture. Demineralization and degenerative changes. Electronically Signed: Gabrielle Gallegos MD at 8:18 EST Reading Location ID and State: [facility] / [place] Tel , Service support , Left hip [...] your Primary Care Provider. Call [facility] ([phone]) or report to the closest Emergency Room. Call 911 if necessary. 07/25/23 0848 <Electronically signed by Jos Rush DO> Cosigner Signature (if applicable): CC: Dr. Pete Payne MD ~ Signed [facility] Work Phone: 1(385) 824-498607-04-2023 Discharge summary Author Jos Rush [facility] January 20, 2023 4:32am Note Date/Time January 20, 2023 3:43a [facility] Medical Records Department [address] [place] [address] Emergency Department Summary 01/20/23 MR#: [id number] Acct: [id number] Name: MAXIME AMARAL Rep #:[id number] : 1935 87 From: Jos Rush DO PCP: Dr. Pete Payne MD Status:R EG ER Location: ED HPI History of Present Illness Chief Complaint: Fall Informant: patient and EMS Limited: dementia Narrative Narrative: Patient is a 87-year-old female with past medical history of dementia who stays in a alf in their dementia unit. Nursing reports that patient was reportedly wandering this evening and had a fall. They found the patient awake and alert but with trauma to her head/face. They deny any blood thinners but states secondary to the fall and patient complaining of pain in her knees and shoulders she was sent in for evaluation [facility] Medical History Alzheimer's disease, unspecified [...] 3:16 EDT Reading Location ID and State: [facility] / [place] Tel , Service support [...] 3:35 EDT Reading Location ID and State: [facility] / [place] Tel , Service support [...] your Primary Care Provider. Call [facility] ([phone]) or report to the closest Emergency Room. Call 911 if necessary. 01/20/232 <Electronically signed by Jos Rush DO> Cosigner Signature (if applicable): CC: Dr. Pete Payne MD ~ Signed [facility] Work Phone: 1(722) 817-803705-10-[address] Crooks [facility] November 26, 2022 9:10pm Note Date/Time November 26, 2022 9:10p [facility] Medical Records Department [address] [place] [address] [facility] Care MR#: [id number] Acct: [id number] Name: MAXIME AMARAL Rep #:[id number] : 1935 87 From: Sylvester Crooks MD PCP: ALANNAH BENITO Status:ADM IN Certification of patient admission REQUIRED AT TIME OF ADMISSION. I CERTIFY THAT POST-HOSPITAL ECF SERVICES ARE REQUIRED TO BE GIVEN ON AN IN-PATIENT BASIS BECAUSE OF THE ABOVE NAMED PATIENT'S NEED FOR CARE HOME CARE ON A CONTINUING BASIS FOR THE CONDITION(S) FOR WHICH HE/SHE WAS RECEIVING IN-PATIENT HOSPITAL SERVICES PRIOR TO HIS/HER TRANSFER TO THE PSYCHIATRIC HOSPITAL. 11/26/222109<Electronically signed by Sylvester Crooks MD> [...] for rehabilitation, strengthening, prior to discharge to [facility]. * Debility - PT/OT. * [...] - Bupropion XL 150mg daily, stable chronic assisted use, GDR not recommended. * Alzheimer Disease [...] Dao ; Tanisha Henriquez ; Britany White NP Instructions Additional Instructions / Restrictions: Discharge to [...] Crooks MD> Cosigner Signature (if applicable): CC: [employer] FIELD COORDINATORNadiaC Magnolia Tafoya; [employer] FIELD COORDINATOR-C Tanisha Henriquez; [employer] FIELD COORDINATOR-C Britany White; Dr. Steven Dean, ; Dr. Fany Dao MD; ALANNAH BENITO ~ [facility] Work Phone: [phone]) 954-734505-10-[address] Crooks [facility] November 26, 2022 9:09pm Note Date/Time November 26, 2022 9:05p [facility] Medical Records Department [address] [place] [address] Discharge Summary 11/26/222103 MR#: [id number] Acct: [id number] Name: MAXIME AMARAL Rep #:[id number] : 1935 87 From: Sylvester Crooks MD PCP: ALANNAH BENITO Status:ADM IN Location: [place] [address] Providers Date of Admission: 11/13/22 Primary Care [...] for rehabilitation, strengthening, prior to discharge to [facility]. * Debility - PT/OT. * [...] Bupropion XL 150mg daily, stable chronic long filler cigar roller machine use, GDR not recommended. * Alzheimer Disease [...] for rehabilitation, strengthening, prior to discharge to [facility]. Discharge to [facility] 11/29/2022, [...] Document 11/26/22 14:47 HUSEYIN (Rec: 11/26/22 14:47 [facility] [id number]) Nutrition Malnutrition Evidence of Malnutrition Exists Yes [...] Sylvester Crooks Chi Primary Care Provider: ALANNAH EBNITO Consulting Providers: Magnolia Tafoya ; Steven Dean ; Fany Dao ; Tanisha Henriquez ; Britany White [employer]ELD COORDINATOR Instructions Additional Instructions / Restrictions: Discharge to [...] Dr. Sylvester Crooks MD; ALANNAH BENITO~ Signed [facility] Work Phone: [phone] 948-102505-03-2023 History and physical note Author Dr. Valeriy [facility] November 19, 2022 5:00pm Note Date/Time November 13, 2022 7:4 6pm [facility] Medical Records Department [address] [place] [address] History & Physical Exam 11/13/221939 MR#: [id number] Acct: [id number] Name: MAXIME AMARAL Rep #:[id number] : 1935 87 From: Sylvester Crooks MD PCP: ALANNAH BENITO Status:ADM IN Location: TCU [facility] HPI - General General Date of Admission: 11/13/22 Date of Service: 11/13/22 Chief Complaint: Here for rehabilitation. HPI Narrative 11/11/2022 MAXIME AMARAL, is a 87 Female who presents to [facility] Emergency Department with nausea, vomiting, diarrhea. 11/11/2022 [...] for rehabilitation, strengthening, prior to discharge to [facility]. [facility] Medical History Alzheimer's disease, unspecified [...] for rehabilitation, strengthening, prior to discharge to [facility]. * Debility - PT/OT. * Cognition - [...] - Bupropion XL 150mg daily, stable chronic assisted use, GDR not recommended. * Alzheimer Disease [...] Sylvester Crooks MD; ALANNAH BENITO ~* Signed [facility] Work Phone: 1([phone]) 213-216904-28-[address] Crooks [facility] November 14, 2022 7:27pm Note Date/Time November 14, 2022 3:5 3pm [facility] Medical Records Department [address] [place] [address] Progress Note - Pharmacy 11/14/22 1531 MR#: [id number] Acct: [id number] Name: MAXIME AMARAL Rep #:[id number] : 1935 87 From: Roselyn Garzon PCP: ALANNAH BENITO Status:ADM IN Location: TCU [facility]- TCU RX Drug Regimen Review Subjective: TCU [...] by Sylvester Crooks MD> CC: ~ Signed [facility] Work Phone: [phone]) 359-151504-27-[address] Betancur [facility] November 13, 2022 2:06pm Note Date/Time November 13, 2022 1:5 6pm [facility] Medical Records Department [address] [place] [address] Transfer to [facility] MR#: [id number] Acct: [id number] Name: MAXIME AMARAL Rep #:[id number] : 1935 87 From: Bernice Betancur MD PCP: ALANNAH BENITO Status:ADM IN Certification of patient admission REQUIRED AT TIME OF ADMISSION. I CERTIFY THAT POST-HOSPITAL ECF SERVICES ARE REQUIRED TO BE GIVEN ON AN IN-PATIENT BASIS BECAUSE OF THE ABOVE NAMED PATIENT'S NEED FOR CARE HOME CARE ON A CONTINUING BASIS FOR THE CONDITION(S) FOR WHICH HE/SHE WAS RECEIVING IN-PATIENT HOSPITAL SERVICES PRIOR TO HIS/HER TRANSFER TO THE PSYCHIATRIC HOSPITAL. 11/13/22 1406<Electronically signed by Bernice Betancur [...] with hypothyroidism and dementia who presented to [facility] 11/11/2022 with a sodium of 127 at [...] in before D/C Order can be placed): Group Home Facility 11/13/22 1406 <Electronically signed by Bernice Betancur MD> Cosigner Signature (if applicable): CC: Dr. Ryder Brody MD; ALANNAH BENITO ~ [facility] Work Phone: 1(726) 982-816804-26-[address] Betancur [facility] November 12, 2022 4:53pm Note Date/Time November 12, 2022 7:0 0am [facility] Medical Records Department [address] [place] [address] Progress Note - Hospitalist 11/12/22 0659 MR#: [id number] Acct: [id number] Name: MAXIME AMARAL Rep #:[id number] : 1935 87 From: Bernice Betancur MD PCP: ALANNAH BENITO Status:ADM IN Location: [place] [address]-1 Reason for Visit Reason for Visit: Diagnoses [...] % (Auto) 59.4, Lymph % (Auto) 31.3, Becker% (Auto) 7.4, Eos % (Auto) 0.9, Baso [...] Clarity Clear, Urine pH 6.0, Ur Specific [place] 1.010, Urine Protein Negative, Urine Glucose (UA) [...] % (Auto) Cancelled, Lymph % (Auto) Cancelled, Becker % (Auto) Cancelled, Eos % (Auto) Cancelled, [...] Drop Cells Cancelled, Ovalocytes Cancelled, Stomatocytes Cancelled, Babcock-Wedderburn Bodies Cancelled, Maxwell Cells Cancelled, Bite Cells Cancelled, Crenated Cell [...] % (Auto) 63.6, Lymph % (Auto) 26.7, Becker % (Auto) 7.1, Eos % (Auto) 1.4, [...] Signed: Abran Collins MD at 20:31 EDT Reading Location ID and State: [facility] / [place] , Service support , Physical Exam Narrative General: Alert though [...] Lovenox ordered. Charges/Coding Visit Charges Inpatient E&M: 50670 Subs Hosp L2 11/12/22 7378 <Electronically signed by Bernice Betancur MD> Cosigner Signature (if applicable): CC: ~ Signed [facility] Work Phone: [phone]) 224-561204-26-[address] Ewing [facility] November 11, 2022 11:41pm Note Date/Time November 11, 2022 5:3 3pm [facility] Medical Records Department [address] [place] [address] Emergency Department Summary 11/11/22 MR#: [id number] Acct: [id number] Name: MAXIME AMARAL Rep #:[id number] : 1935 87 From: Nancy Ewing MD PCP: ALANNAH BENITO Status:ADM IN Location: [facility] JK670-2 HPI History of Present Illness Chief Complaint: Nausea/Vomiting/Diarrhea Detail of Chief Complaint: Generalized weakness Informant: patient and family Onset/Context/Timing Onset: Weeks Narrative Narrative: Patient presents via EMS from assisted living at [facility] [address]. Son is at bedside and provides much [...] pain. She denies fever or cough. [facility] Medical History Alzheimer's disease, unspecified [...] Medical decision making narrative: Patient placed on manager monitoring. EKG obtained to evaluate for cardiac arrhythmia/ischemia. [...] % (Auto) 59.4 Lymph % (Auto) 31.3 Becker % (Auto) 7.4 Eos % (Auto) 0.9 [...] Color Urine Clarity Urine pH Ur Specific [place] Urine Protein Urine Glucose (UA) Urine Ketones Urine Occult Blood Urine Nitrite Urine Bilirubin Urine Urobilinogen Ur Leukocyte Esterase Urine RBC Urine WBC Ur Squamous Epith Cells Urine Bacteria Urine Mucus 11/11/22 19:47 WBC RBC Hgb Hct MCV MCH MCHC RDW Std Deviation RDW Coeff of Kristal Plt Count MPV Immature Gran % (Auto) Neut % (Auto) Lymph % (Auto) Becker % (Auto) Eos % (Auto) Baso % [...] Clarity Clear Urine pH 6.0 Ur Specific [place] 1.010 Urine Protein Negative Urine Glucose (UA) [...] [Non-Staff] - Disposition Disposition: Acute Care Hospital [facility] What to do if you have Problems For any increased pain, shortness of breath, bleeding, nausea or vomiting, chestpain, or any unexpected problems, contact your Primary Care Provider. Call [employer] [facility] ([phone]) or report to the closest Emergency Room. Call 911 if necessary. 11/11/22 5704 <Electronically signed by Nancy Ewing MD> Cosigner Signature (if applicable): CC: ALANNAH THONG ~ Signed [facility] Work Phone: [phone]) 533-714904-26-2023 History and physical note Author Dr. Brody [facility] November 11, 2022 10:26pm Note Date/Time November 11, 2022 9:3 3pm [facility] Medical Records Department [address] [place] [address] H&P Exam - Hospitalist 11/11/222132 MR#: [id number] Acct: [id number] Name: MAXIME AMARAL Rep #:[id number] : 1935 87 From: Ryder Brody MD PCP: ALANNAH BENITO Status:ADM IN Location: [facility] QR036-7 HPI - General General Date of Admission: 11/11/22 Date of Service: 11/11/22 Chief Complaint: Abnormal labs HPI Narrative MAXIME AMARAL, is a 87 F with a significant history of hypothyroidism and dementia; and who lives at assisted medicine facility at [facility] [address] presenting to the emergency department with abnormal [...] the emergency department patient could not urinate. [facility] Medical History Alzheimer's disease, unspecified [...] % (Auto) 59.4, Lymph % (Auto) 31.3, Becker % (Auto) 7.4, Eos % (Auto) 0.9, [...] Clarity Clear, Urine pH 6.0, Ur Specific [place] 1.010, Urine Protein Negative, Urine Glucose (UA) [...] Lovenox ordered. Charges/Coding Visit Charges Inpatient E&M: 26673 Init Hosp 11/11/222225 <Electronically signed by Ryder Brody MD> Cosigner Signature (if applicable): CC: Dr. Ryder Brody MD; ALANNAH BENITO~ Signed [facility] Work Phone: Evaluation note* Diagnosis Onset Date Resolution Status Declining functional status acute Hypokalemia acute Hyponatremia acute Weakness acute Hypertension chronic [facility] Work Phone: Evaluation note* Diagnosis Onset Date Resolution Status Declining functional status acute Hyponatremia acute Hypertension chronic Alzheimer disease acute Debility acute Dehydration acute Depression acute Diabetes mellitus acute Hyperlipidemia acute Hyponatremia acute Hypothyroidism acute Hypertension chronic [facility] Work Phone: Evaluation note* Diagnosis Onset Date Resolution Status Declining functional status acute Hyponatremia acute Hypertension chronic Alzheimer disease acute Debility acute Depression acute Diabetes mellitus acute Hyperlipidemia acute Hypothyroidism acute Hypertension chronic Dehydration resolved Hyponatremia resolved [facility] Work Phone: Evaluation noteNo assessment information available [facility] Work Phone: History and physical note [facility] November 11, 2022 10:26pm Note Date/Time November 11, 2022 9:3 3pm [facility] Medical Records Department [address] [place] [address] H&P Exam - Hospitalist 11/11/222132 MR#: [id number] Acct: [id number] Name: MAXIME AMARAL Rep #:[id number] : 1935 87 From: Ryder Brody MD PCP: ALANNAH BENITO Status:ADM IN Location: [facility] WT702-4 HPI - General General Date of Admission: 11/11/22 Date of Service: 11/11/22 Chief Complaint: Abnormal labs HPI Narrative MAXIME AMARAL, is a 87 F with a significant history of hypothyroidism and dementia; and who lives at assisted medicine facility at [facility] [address] presenting to the emergency department with abnormal [...] the emergency department patient could not urinate. [facility] Medical History Alzheimer's disease, unspecified [...] % (Auto) 59.4, Lymph % (Auto) 31.3, Becker % (Auto) 7.4, Eos % (Auto) 0.9, [...] Clarity Clear, Urine pH 6.0, Ur Specific [place] 1.010, Urine Protein Negative, Urine Glucose (UA) [...] Lovenox ordered. Charges/Coding Visit Charges Inpatient E&M: 46925 Init Hosp L3 11/11/222225 <Electronically signed by Ryder Brody MD> Cosigner Signature (if applicable): CC: Dr. Ryder Brody MD; ALANNAH BENITO~ Signed [facility] Work Phone: Hospital Discharge instructions Additional Instructions CT head face and neck negative. Right shoulder x-ray negative. 7 sutures placed. Have removed in 5 to 7 days.[facility] Work Phone: Reason for referral (narrative)No reason for referral information availableWSelect Medical Special[facility] Work Phone: Chief Complaint and Reason for [...] Complaint MONTHLY EXAM UNWITNESSED FALL MONTHLY EXAM CARE HOME LAB WORK MONTHLY EXAM NURISNG HOME LABWORK Chief Complaint MONTHLY EXAM MONTHLY EXAM MONTHLY EXAM FALL Chief Complaint MONTHLY EXAM MONTHLY EXAM FALL LABWORK Chief Complaint Admit Date NEW CONCERN June 21, 2024 5 :08pm CARE HOME LAB WORK July 11 5:00am CARE HOME LAB WORK August 23, 2024 5:00am MONTHLY EXAM September 01, 2024 11:29am LABWORK October 03, 2024 5:0 0am Chief Complaint Admit Date CARE HOME LAB WORK July 11 5:00am CARE HOME LAB WORK August 23, 2024 5:00am MONTHLY EXAM September 01, 2024 11:29am MONTHLY EXAM September 20, 2024 3:13 pm LABWORK October 03, 2024 5:0 0am CARE HOME LAB WORK October 06, 2024 5 :00am Chief Complaint Admit Date CARE HOME LAB WORK July 11 5:00am CARE HOME LAB WORK August 23, 2024 5:00am MONTHLY EXAM September 01, 2024 11:29am MONTHLY EXAM September 20, 2024 3:13 pm LABWORK October 03, 2024 5:0 0am CARE HOME LAB WORK October 06, 2024 5 :00am LABWORK October 10, 2024 5:0 0am Chief Complaint Admit Date CARE HOME LAB WORK July 11 5:00am CARE HOME LAB WORK August 23, 2024 5:00am MONTHLY EXAM September 01, 2024 11:29am MONTHLY EXAM September 20, 2024 3:13 pm LABWORK October 03, 2024 5:0 0am CARE HOME LAB WORK October 06, 2024 5 :00am LABWORK October 10, 2024 5:0 0am FALL, LACERATION November 03, 2024 9:0 6pm Chief Complaint Admit Date CARE HOME LAB WORK July 11 5:00am CARE HOME LAB WORK August 23, 2024 5:00am MONTHLY EXAM September 01, 2024 11:29am MONTHLY EXAM September 20, 2024 3:13 pm LABWORK October 03, 2024 5:0 0am CARE HOME LAB WORK October 06, 2024 5 :00am LABWORK October 10, 2024 5:0 0am CARE HOME LAB WORK October 17, 2024 5 :00am FALL, LACERATION November 03, 2024 9:0 6pm Chief Complaint Admit Date MONTHLY EXAM September 01, 2024 11:29am MONTHLY EXAM September 20, 2024 3:13 pm LABWORK October 03, 2024 5:0 0am CARE HOME LAB WORK October 06, 2024 5 :00am LABWORK October 10, 2024 5:0 0am CARE HOME LAB WORK October 17, 2024 5 :00am MONTHLY EXAM October 21, 2024 1:47 pm FALL, LACERATION November 03, 2024 9:0 6pm CARE HOME LAB WORK November 14, 2024 4 :00am CARE HOME LAB WORK November 22, 2024 5:00 am CARE HOME LAB WORK December 13, 2024 5:0 0am Chief Complaint Admit Date CARE HOME LAB WORK August 23, 2024 5:00am MONTHLY EXAM September 01, 2024 11:29am MONTHLY EXAM September 20, 2024 3:13 pm LABWORK October 03, 2024 5:0 0am CARE HOME LAB WORK October 06, 2024 5 :00am LABWORK October 10, 2024 5:0 0am CARE HOME LAB WORK October 17, 2024 5 :00am MONTHLY EXAM October 21, 2024 1:47 pm FALL, LACERATION November 03, 2024 9:0 6pm CARE HOME LAB WORK November 14, 2024 4 :00am CARE HOME LAB WORK November 22, 2024 5:00 am Chief Complaint Admit Date CARE HOME LAB WORK October 06, 2024 5 :00am LABWORK October 10, 2024 5:0 0am CARE HOME LAB WORK October 17, 2024 5 :00am MONTHLY EXAM October 21, 2024 1:47 pm FALL, LACERATION November 03, 2024 9:0 6pm CARE HOME LAB WORK November 14, 2024 4 :00am CARE HOME LAB WORK November 22, 2024 5:00 am MONTHLY EXAM December 06, 2024 4:15p m CARE HOME LAB WORK December 13, 2024 5:0 0am CARE HOME LAB WORK December 26, 2024 4:0 0am Chief Complaint Admit Date CARE HOME LAB WORK October 06, 2024 5 :00am LABWORK October 10, 2024 5:0 0am CARE HOME LAB WORK October 17, 2024 5 :00am MONTHLY EXAM October 21, 2024 1:47 pm FALL, LACERATION November 03, 2024 9:0 6pm CARE HOME LAB WORK November 14, 2024 4 :00am CARE HOME LAB WORK November 22, 2024 5:00 am MONTHLY EXAM December 06, 2024 4:15p m CARE HOME LAB WORK December 13, 2024 5:0 0am CARE HOME LAB WORK December 26, 2024 4:0 0am MONTHLY EXAM January 03, 2025 6:30 pm Chief Complaint Admit Date FALL, LACERATION November 03, 2024 9:0 6pm CARE HOME LAB WORK November 14, 2024 4 :00am CARE HOME LAB WORK November 22, 2024 5:00 am MONTHLY EXAM December 06, 2024 4:15p m CARE HOME LAB WORK December 13, 2024 5:0 0am CARE HOME LAB WORK December 26, 2024 4:0 0am MONTHLY EXAM January 03, 2025 6:30 pm CARE HOME LAB WORK January 13, 2025 5: 00am Monthly Exam January 17, 2025 5:25p m LABWORK February 06, 2025 5:00 am Advance Directives No Advanced Directives Records Found Advance Directive Response Recorded Date/ Time Name of Medical Power of Bundle Person ? November 11, 2022 4:49pm Living Will Yes November 11, 2022 4:49pm Power of Bundle Person Yes November 11 4:49pm Advance Directive Response Recorded Date/ Time Name of Medical Power of Bundle Person Matilda Pritchett November 11, 2022 10:59pm Living Will Yes November 11, 2022 10:59pm Power of Bundle Person Yes November 11 10:59pm Advance Directive Response Recorded Date/ Time Name of Medical Power of Bundle Person Matilda Pritchett November 11, 2022 10:59pm Name of Medical Power of Bundle Person christine Pritchett November 14, 2022 10:44am Living Will Yes November 14, 2022 10:44am Power of Bundle Person Yes November 14 10:44am Advance Directive Response Recorded Date/ Time Living Will Yes November 14, 2022 10:44am Power of Bundle Person Yes November 14 10:44am Advance Directive Response Recorded Date/ Time Name of Medical Power of Bundle Person NYA MORRIS July 25, 2023 4:49am Living Will Yes July 25 4:49am Power of Bundle Person Yes July 25 4:49am Advance Directive Response Recorded Date/ Time Living Will Yes November 03, 2024 9:16pm Do you have a Healthcare Power of Bundle Person? Yes November 03, 2024 9:16pm Name of Medical Power of Bundle Person Daniel Amaral November 03, 2024 9:16pm Summary [...] 2024 End: October 21, 2024 Poppy Mccracken [employer] FIELD COORDINATOR, [employer] FIELD COORDINATOR-C Attending Provider Active Start: October 21, 2024 [...] Dr. Mariano Dao MD Family Provider Active [facility] Primary Care Provider Active Team Status: Active Member Role Status Dates Dr. Nancy Ewing MD Emergency Provider Active [facility] Primary Care Provider Active Dr. Ryder Brody MD Admit Provider, Attending Provider, Other Provider Active Team Status: Active Member Role Status Dates Dr. Nancy Ewing MD Emergency Provider Active [facility] Primary Care Provider Active Dr. Ryder Brody MD Admit Provider, Attending Pro vider Active Team Status: Active Member Role Status Dates Dr. Nancy Ewing MD Emergency Provider Active [facility] Primary Care Provider Active Dr. Ryder Brody MD Admit Provider, Other Provide r Active Dr. Bernice Betancur MD Attending Provider, Other Provid er Active Team Status: Inactive Member Role Status Dates Dr. Nancy Ewing MD Emergency Provider Active [facility] Primary Care Provider Active Dr. Ryder Brody MD Admit Provider, Other Provide r Active Dr. Bernice Betancur MD Attending Provider Active Team Status: Active Member Role Status [facility] Primary Care Provider Active Dr. Sylvester Crooks MD Admit Provider, Attending Provid er Active Magnolia Tafoya , [employer]ORDINATOR-C Other Provider Active Dr. Steven Dean DO Other Provider Active Dr. Fany Dao MD Other Provider Active Tanisha Henriquez [employer] FI[employer] COORDINATOR-C Other Provider Active Britany White NP, [employer] FI[employer] COORDINATOR-C Other Provider Active Team Status: Inactive Member Role Status [facility] Primary Care Provider Active Dr. Sylvester Crooks MD Attending Provider, Referring Pr ovider Active Team Status: Inactive Member Role Status [facility] Care Provider Active Dr. Sylvester Crooks MD Admit Provider, Attending Provid er Active Magnolia Tafoya , [employer] FI[employer] COORDINATOR-C Other Provider Active Dr. Steven Dean DO Other Provider Active Dr. Fany Dao MD Other Provider Active Tanisha Henriquez [employer] FIELD COORDINATOR-C Other Provider Active Britany White NP, [employer] FIELD COORDINATOR-C Other Provider Active Team Status: Active Member Role Status Dates Dr. Mariano Dao MD Family Provider Active Dr. Pete Payne MD Primary Care Provider Active Team Status: Inactive Member Role Status Dates Out of [facility] Doctor Primary Care Provider Active Dr. Pete Payne MD Attending Provider Active Team Status: Inactive Member Role Status Dates Out of [facility] Doctor Primary Care Provider Active Poppy Mccracken [employer] FIELD COORDINATOR, [employer] FIELD COORDINATOR-C Attending Provider Active Team Status: Inactive Member Role Status Dates Out of [facility] Doctor Primary Care Provider Active Pete ROBERTS [...] MD Primary Care Provider Active Poppy Mccracken [employer] FIELD COORDINATOR, [employer] FIELD COORDINATOR-C Attending Provider Active Team Status: Inactive Member [...] 2024 End: June 21, 2024 Poppy Mccracken [employer] FIELD COORDINATOR, [employer] FIELD COORDINATOR-C Attending Provider Active Start: June 21, 2024 [...] 2024 End: October 21, 2024 Poppy Mccracken [employer] FIELD COORDINATOR, [employer] FIELD COORDINATOR-C Attending Provider Active Start: October 21, 2024 [...] 2025 End: January 03, 2025 Poppy Mccracken [employer] FIELD COORDINATOR, [employer] FIELD COORDINATOR-C Attending Provider Active Start: January 03, 2025 [...] Status: Inactive Member Role/Relationship Status Dates Dr. ePte Payne MD Primary Care Provider Active Start: [...] Status: Active Member Role/Relationship Status Dates Dr. Ptee Payne MD Primary Care Provider Active Start: December 26, 2024 Pete ROBERTS MD Attending Provider Active Start: December 26, 2024 Pete ROBERTS MD Referring Provider Active Start: December 26, 2024 Team Status: Inactive Member Role/Relationship Status Dates Dr. Pete Payne MD Primary Care Provider Active Start: January 03, 2025 End: January 03, 2025 Poppy Mccracken [employer] FIELD COORDINATOR, [employer] FIELD COORDINATOR-C Attending Provider Active Start: January 03, 2025 End: January 03, 2025 Team Status: Active Member Role/Relationship Status Dates Dr. Pete Payne MD Primary Care Provider Active Start: January 13, 2025 Pete ROBERTS MD Attending Provider Active Start: January 13, 2025 Team Status: Inactive Member Role/Relationship Status Dates Dr. Pete Payne MD Primary Care Provider Active Start: January 17, 2025 End: January 17, 2025 Dr. Pete Payne MD Attending Provider Active Start: January 17, 2025 End: January 17, 2025 Team Status: Active Member Role/Relationship Status Dates Dr. Pete Payne MD Primary Care Provider Active Start: February 06, 2025 Pete ROBERTS MD Attending Provider Active Start: February 06, 2025 Team Status: Active Member Role/Relationship Status Dates Dr. Pete Payne MD Primary Care Provider Active Start: February 21, 2025 Pete ROBERTS MD Attending Provider Active Start: February 21, 2025 Goals (unrecognized section and content) Goals [...] ized section and content) DATE CREATED AUTHOR 03/03/2025 [facility] FOR RECORDS PERTAINING TO PATIENTS WHO ARE [...] BE BASED ON THE PRIMARY CLINICAL RECORDS. [employer] provides no warranty or guarantee of the accuracy or completeness of information in this document.
--- OUTSIDE RECORDS SUMMARY | 2025-03-15 04:27 | XMS RPT_ITS | CCD ---
Author Organization [facility] Care Team Providers Care Order Management Specialist Name Role Phone Dr. Nancy Ewing Emergency Provider THONG ALANNAH Primary Care Provider Unavail able Dr. Ryder Brody Admit Provider Dr. Ryder Brody Attending Provider Dr. Ryder Brody Other Provider ALANNAH BENITO Primary Care Provider Dr. Bernice Betancur Attending Provider Dr. Bernice Betancur Other Provider [facility] Doctor, Out of Primary Care Provider Silvia Mccracken GREASE RACK WORKER, GREASE RACK WORKER-C Poppy Attending Provider Dr. Pete Dietz Attending Provider Dr. Pete Payne Primary Care Provider Dr. Pete Payne Attending Provider Kaykay GREASE RACK WORKER, GREASE RACK WORKER-C Poppy Attending Provider Dr. Pete Dietz Primary Care Provider Dr. Pete Payne Attending Provider Kaykay GREASE RACK WORKER, GREASE RACK WORKER-C Poppy Attending Provider Dr. Pete Dietz Primary Care Provider Dr. Pete Payne Attending Provider Kaykay GREASE RACK WORKER, GREASE RACK WORKER-C Poppy Attending Provider Elmer SAMUELS, Dr. Freeman Primary Care Provider Kaykay GREASE RACK WORKER-C, Poppy Attending Provider Pete Payne MD Attending Provider Unavaila Mateo Romero Attending Provider Elmer SAMUELS, Dr. Freeman Primary Care Provider Elmer SAMUELS, Dr. Fremean Attending Provider [phone] Cheyanne DRISCOLL, Dr. Amezquita Emergency Provider Elmer SAMUELS, Dr. Freeman Primary Care Provider Pete Payne MD Attending Provider Unavaila naun Mccracken GREASE RACK WORKER-CPoppy Attending Provider Cheyanne DRISCOLL, Dr. Amezquita Attending [...] Payne MD Attending Provider Unavaila ble Kaykay GREASE RACK WORKER-C, Poppy Attending Provider Oleriteshe OLS, Efewongbe Attending [...] Unavailable Oleghe, Efewongbe Primary Care Unavailable Tickton GREASE RACK WORKER, Poppy Attending Unavailable Oleghe, Efewongbe Primary Care [...] e Oleghe, Efewongbe Primary Care Unavailable Tickton GREASE RACK WORKER, Poppy Attending Unavailable Oleghe, Efewongbe Primary Care Unavailable Oleghe, Efewongbe Primary Care Unavailable Oleghe, Efewongbe Attending Unavailable Tickton GREASE RACK WORKER, Poppy Attending Unavailable Oleghe, Efewongbe Primary Care Unavailable Oleghe, Efewongbe Attending Unavailable Oleghe, Efewongbe Primary Care Unavailable Tickton GREASE RACK WORKER, Poppy Attending Unavailable Oleghe, Efewongbe Primary Care Unavailable Oleghe, Efewongbe Primary Care Unavailable Oleghe, Efewongbe Attending Unavailable Oleghe, Efewongbe Primary Care Unavailable Oleghe OLS, Efewongbe Attending Unavailabl e Allergies Allergy Classification Reported Allergen(s) Allergy Type Date of Onset Reaction(s) Facility (20 sources) Penicillins Propensity to adverse reactions 3 Diarrhea [facility] (1 source) Penicillins Drug allergy (disorder) 5 [facility] Repository Medications Current Medications Medication Drug [...] (VLDL) cholesterol measurement 49 mg/dL High 5-40 [facility] Hemoglobin A1c percentageOrd ered By: Pete Payne on 02-21-2025 HbA1c (Bld) [Mass fraction] 7.2 % High <5.7 [facility] Comment on above: Normal < 5.7 % Predi abetic 5.7 - 6.4 % Diabetic >or= 6.5 % Please note range changes. LDL calc ser/plasOrdered By: Pete Payne on 02-21-2025 Cholesterol in LDL [Mass/Vol] 36 mg/dL [facility] Comment on above: Hwkiebczlg=316-754 m g/dL & Higher Dugw=798 mg/dL or greaterFriedwald Equation for LDL-C Screening total cholesterol/ high density lipoprotein (HDL) cholesterol ratioOrdered By: Pete Payne on 02-21-2025 Cholesterol.total/Choles terol in HDL [Mass ratio] 3.46 {ratio} [facility] Serum or plasma cholesterol in HDL measurement (mass/volume)Ordered By: Pete Payne on 02-21-2025 Cholesterol in HDL [Mass/Vol] 35 mg/dL Low >40 [facility] Comment on above: National Cholesterol Education Program (NCEP) guidelines:<40 mg/dL: Low HDL-cholesterol (major risk factor for CHD)>= 60 mg/dL: High HDL-cholesterol (negative risk factor for CHD)HDL-cholesterol is affected by a number of factors, e.g. smoking, exercise, hormones, sex and age. Serum or plasma cholesterol measurement (mass/volume)Ordered By: Pete Payne on 02-21-2025 Cholesterol [Mass/Vol] 120 mg/dL <201 [facility] Comment on above: Cholesterol level, D esirable <200 mg/dLBorderline high cholesterol 200-239 mg/dLHigh cholesterol >=240 mg/dLRecommendations of the NCEP Adult Treatment Panel for the following risk-cutoff thresholds for the [place] population. Triglycerides measurementOrd ered By: Pete Payne on 02-21-2025 Triglyceride [Mass/Vol] 245 mg/dL High <199 [facility] Comment on above: The drugs N-Acetylcy steine and Metamizole may falsely depress this assay. Normal range: <150 mg/dLBorderline High: 150-199 mg/dLHigh: 200-499 mg/dLVery High: >500 mg/dL TSH DL <= 0.005 mIU/L QnOrde red By: Pete Payne on 02-06-2025 TSH Qn 2.850 uIU/mL 0.300-4.200 [facility] Absolute lymphocyte countOrd ered By: Pete Payne on 01-13-2025 Lymphocytes Auto (Unsp spec) [#/Vol] 2.32 10*3/uL 0.83-4.51 [facility] Absolute neutrophil countOrd ered By: alexisfarmingdalesudarshan Payne on 01-13-2025 Neutrophils (Bld) [#/Vol] 5.2 10*3/uL 2.0-7.7 [facility] Automated lymphocyte count a s percentage of total leukocytesOrdered By: Pete Payne on 01-13-2025 Lymphocytes/100 WBC Auto (Unsp spec) 27.3 % 19-41 [facility] Basophil percentageOrdered B y: Pete Payne on 01-13-2025 Basophils/100 WBC (Bld) 0.9 % 0-1 [facility] Eosinophil percentageOrdered By: geena Payne on 01-13-2025 Eosinophils/100 WBC (Bld) 3.4 % 0-5 [facility] Erythrocyte distribution wid th ratioOrdered By: Pete Payne on 01-13-2025 Erythrocyte distribution width (RBC) [Ratio] 13.2 % 11.6-14.6 [facility] Erythrocyte distribution wid th standard deviationOrdered By: Saturninofarmingdalesudarshan Payne on 01-13-2025 Erythrocyte distribution width (RBC) [Ratio] 45.4 fl High 35.1-43.9 [facility] Hematocrit Auto (Bld) [Volum e fraction]Ordered By: Pete Payne on 01-13-2025 Hematocrit (Bld) [Volume fraction] 36.0 % Low 37-47 [facility] Hemoglobin measurementOrdere d By: Pete Payne on 01-13-2025 Hemoglobin (Bld) [Mass/Vol] 11.4 g/dL Low 12.0-15.0 [facility] Immature granulocytes/100 WB C Auto (Bld)Ordered By: alexisfarmingdalesudarshan Payne on 01-13-2025 Immature granulocytes/100 WBC (Bld) 0.500 % 0.0-0.9 [facility] Comment on above: IG% - Immature Granu locytes (promyelocytes, myelocytes and metamyelocytes) > 1% indicates that a LEFT SHIFT is Present. MCV (mean corpuscular volume ) determinationOrdered By: Pete Payne on 01-13-2025 MCV (RBC) [Entitic vol] 93.3 fL 81-99 [facility] Mean corpuscular hemoglobin (MCH) determinationOrdered By: Pete Payne on 01-13-2025 MCH (RBC) [Entitic mass] 29.5 pg 27.0-32.0 [facility] Mean corpuscular hemoglobin concentration (MCHC) determinationOrdered By: Pete Payne on 01-13-2025 MCHC (RBC) [Mass/Vol] 31.7 g/dL Low 32-[address] [facility] Mean platelet volume determi nationOrdered By: Pete Payne on 01-13-2025 Platelet mean volume (Bld) [Entitic vol] 10.8 fL 6.2-12.0 [facility] Monocyte percentageOrdered B y: Pete Payne on 01-13-2025 Monocytes/100 WBC (Bld) 6.9 % 0-10 [facility] Neutrophil percentageOrdered By: Pete Beltarne on 01-13-2025 Neutrophils/100 WBC (Bld) 61.0 % 47-70 [facility] Nucleated red blood cell per centageOrdered By: Pete Payne on 01-13-2025 Nucleated RBC/100 WBC (Bld) [Ratio] 0 % 0-5 [facility] Platelet countOrdered By: Celeste Payne on 01-13-2025 Platelets (Bld) [#/Vol] 316 10*3/uL 150-450 [facility] RBC Auto (Bld) [#/Vol]Ordere d By: Pete Payne on 01-13-2025 RBC (Bld) [#/Vol] 3.86 10*6/uL Low 4.2-5.4 [facility] White blood cell (WBC) count Ordered By: Pete Payne on 01-13-2025 WBC (Bld) [#/Vol] 8.5 10*3/uL 4.4-11.0 [facility] TSH DL <= 0.005 mIU/L QnOrde red By: Pete Payne on 12-26-2024 TSH Qn 4.080 uIU/mL 0.300-4.200 [facility] Absolute lymphocyte countOrd ered By: Pete Payne on 12-13-2024 Lymphocytes Auto (Unsp spec) [#/Vol] 2.57 10*3/uL 0.83-4.51 [facility] Absolute neutrophil countOrd ered By: Pete Payne on 12-13-2024 Neutrophils (Bld) [#/Vol] 5.1 10*3/uL 2.0-7.7 [facility] Automated lymphocyte count a s percentage of total leukocytesOrdered By: Pete Payne on 12-13-2024 Lymphocytes/100 WBC Auto (Unsp spec) 29.2 % 19-41 [facility] Basophil percentageOrdered B y: Pete Payne on 12-13-2024 Basophils/100 WBC (Bld) 0.8 % 0-1 [facility] Eosinophil percentageOrdered By: [facility] Pfeifferriteshandrew on 12-13-2024 Eosinophils/100 WBC (Bld) 3.5 % 0-5 [facility] Erythrocyte distribution wid th ratioOrdered By: [facility] Kentrellandrew on 12-13-2024 Erythrocyte distribution width (RBC) [Ratio] 13.4 % 11.6-14.6 [facility] Erythrocyte distribution wid th standard deviationOrdered By: [facility] Beltranandrew on 12-13-2024 Erythrocyte distribution width (RBC) [Ratio] 46.0 fl High 35.1-43.9 [facility] Hematocrit Auto (Bld) [Volum e fraction]Ordered By: [facility] Payne on 12-13-2024 Hematocrit (Bld) [Volume fraction] 33.0 % Low 37-47 [facility] Hemoglobin measurementOrdere d By: [facility] Payne on 12-13-2024 Hemoglobin (Bld) [Mass/Vol] 10.6 g/dL Low 12.0-15.0 [facility] Immature granulocytes/100 WB C Auto (Bld)Ordered By: [facility] Pfeifferandrew on 12-13-2024 Immature granulocytes/100 WBC (Bld) 0.300 % 0.0-0.9 [facility] Comment on above: IG% - Immature Granu locytes (promyelocytes, myelocytes and metamyelocytes) > 1% indicates that a LEFT SHIFT is Present. MCV (mean corpuscular volume ) determinationOrdered By: Pete Payne on 12-13-2024 MCV (RBC) [Entitic vol] 94.0 fL 81-99 [facility] Mean corpuscular hemoglobin (MCH) determinationOrdered By: [facility] Kentrellandrew on 12-13-2024 MCH (RBC) [Entitic mass] 30.2 pg 27.0-32.0 [facility] Mean corpuscular hemoglobin concentration (MCHC) determinationOrdered By: [facility] Kentrellandrew on 12-13-2024 MCHC (RBC) [Mass/Vol] 32.1 g/dL 32-[address] [facility] Mean platelet volume determi nationOrdered By: Pete Payne on 12-13-2024 Platelet mean volume (Bld) [Entitic vol] 9.9 fL 6.2-12.0 [facility] Monocyte percentageOrdered B y: Celestealexiskeishasudarshan Pfeifferriteshandrew on 12-13-2024 Monocytes/100 WBC (Bld) 8.1 % 0-10 [facility] Neutrophil percentageOrdered By: geena Payne on 12-13-2024 Neutrophils/100 WBC (Bld) 58.1 % 47-70 [facility] Nucleated red blood cell per centageOrdered By: alexisfarmingdalesudarshan Payne on 12-13-2024 Nucleated RBC/100 WBC (Bld) [Ratio] 0 % 0-5 [facility] Platelet countOrdered By: Celeste alexisanne Payne on 12-13-2024 Platelets (Bld) [#/Vol] 309 10*3/uL 150-450 [facility] RBC Auto (Bld) [#/Vol]Ordere d By: Pete Payne on 12-13-2024 RBC (Bld) [#/Vol] 3.51 10*6/uL Low 4.2-5.4 [facility] White blood cell (WBC) count Ordered By: Pete Payne on 12-13-2024 WBC (Bld) [#/Vol] 8.8 10*3/uL 4.4-11.0 [facility] Hemoglobin A1c percentageOrd ered By: Pete Payne on 11-22-2024 HbA1c (Bld) [Mass fraction] 7.0 % High <5.7 [facility] Comment on above: Normal < 5.7 % Predi abetic 5.7 - 6.4 % Diabetic >or= 6.5 % Please note range changes. TSH DL <= 0.005 mIU/L QnOrde red By: Pete Payne on 11-14-2024 TSH Qn 3.270 uIU/mL 0.300-4.200 [facility] Brain/Head without Contrasto n 11-03-2024 Brain/Head without Contrast [facility] Imaging Services [address] [place] [address] Brain/Head without Contrast MR#: [id number] Acct: [id number] Name: MAXIME AMARAL Rep #: [id number] : 1935 F 89 From: Davin Sotelo DO PCP: Dr. Pete Payne MD Status: REG ER Study: Brain/Head without Contrast Date of Exam: 10/18 02/10 Exam# [id number] Ordering Dr: Alirio Edward DO PROCEDURE: BRAIN/HEAD [...] CHRONIC CHANGES. NO ACUTE FINDINGS. Reading Location: [facility] CC: Dr. Pete Payne MD; Dr. Alirio Edward DO Tiler'S Assistant: Signed Normal [facility] Emergency Department Summary on 11-03-2024 Emergency Department Summary [facility] Medical Records Department [address] [place] [address] Emergency Department Summary 11/03/24 MR#: [id number] Acct: [id number] Name: MAXIME AMARAL Rep #: [id number] : 1935 89 From: Alirio Patel PCP: Dr. Pete Payne MD Status:REG ER Location: ED HPI HPI - Fall History of Present Illness Chief Complaint: Fall Informant: patient and family Narrative Narrative: Patient brought in by EMS from [facility] witnessed fall head injury. Patient history [...] from paperwork. She has baseline per son. [facility] Medical History Dry eye syndrome of [...] for te (more content not included)... Normal [facility] Shoulder min 2 Viewson 11-03 Shoulder min 2 Views [facility] Imaging Services [address] [place] [address] Shoulder min 2 Views MR#: [id number] Acct: [id number] Name: MAXIME AMARAL Rep #: [id number] : 1935 F 89 From: Davin Sotelo DO PCP: Dr. Pete Payne MD Status: REG ER Study: Shoulder min 2 Views Date of Exam: 11/03/24 Exam# [id number] Ordering Dr: Alirio Edward DO PROCEDURE: SHOULDER [...] Pete Payne MD; Dr. Alirio Edward DO Tiler'S Assistant: Signed Normal [facility] Sinus/Facial Boneon 11-04-19 Sinus/Facial Bone [facility] Imaging Services [address] [place] [address] Sinus/Facial Bone MR#: [id number] Acct: [id number] Name: MAXIME AMARAL Rep #: [id number] : 1935 F 89 From: Davin Sotelo DO PCP: Dr. Pete Payne MD Status: REG ER Study: Sinus/Facial Bone Date of Exam: 11/03/24 Exam# [id number] Ordering Dr: Alirio Edward DO PROCEDURE: SINUS/FACIAL [...] supraorbital region. No acute fracture. [facility] CC: Dr. Pete Payne MD; Dr. Alirio Edward DO Tiler'S Assistant: Signed Normal [facility] Spine Cervical without Contr ason 11-03-2024 Spine Cervical without Contras [facility] Imaging Services [address] [place] [address] Spine Cervical without Contras MR#: [id number] Acct: [id number] Name: MAXIME AMARAL Rep #: [id number] : 1935 F 89 From: Davin Sotelo DO PCP: Dr. Pete Payne MD Status: REG ER Study: Spine Cervical without Contras Date of Exam: 0 11/03/24 Exam# [id number] Ordering Dr: Alirio Edward DO PROCEDURE: SPINE [...] No acute fracture or subluxation. [facility] CC: Dr. Pete Payne MD; Dr. Alirio Edward DO Tiler'S Assistant: Signed Normal [facility] Absolute lymphocyte countOrd ered By: Pete Payne on 10-17-2024 Lymphocytes Auto (Unsp spec) [#/Vol] 3.03 10*3/uL 0.83-4.51 [facility] Absolute neutrophil countOrd ered By: geena Payne on 10-17-2024 Neutrophils (Bld) [#/Vol] 5.3 10*3/uL 2.0-7.7 [facility] Automated lymphocyte count a s percentage of total leukocytesOrdered By: Pete Payne on 10-17-2024 Lymphocytes/100 WBC Auto (Unsp spec) 31.8 % 19-41 [facility] Basophil percentageOrdered B y: Pete Payne on 10-17-2024 Basophils/100 WBC (Bld) 0.8 % 0-1 [facility] Eosinophil percentageOrdered By: geena Payne on 10-17-2024 Eosinophils/100 WBC (Bld) 3.6 % 0-5 [facility] Erythrocyte distribution wid th (RBC) [Ratio]Ordered By: Pete Payne on 10-17-2024 Erythrocyte distribution width (RBC) [Entitic vol] 45.9 fL High 35.1-43.9 [facility] Erythrocyte distribution wid th ratioOrdered By: alexisfarmingdalesudarshan Payne on 10-17-2024 Erythrocyte distribution width (RBC) [Ratio] 13.4 % 11.6-14.6 [facility] Erythrocyte distribution wid th standard deviationOrdered By: Pete Payne on 10-17-2024 Erythrocyte distribution width (RBC) [Ratio] 45.9 fl High 35.1-43.9 [facility] Hematocrit Auto (Bld) [Volum e fraction]Ordered By: Pete Payne on 10-17-2024 Hematocrit (Bld) [Volume fraction] 34.1 % Low 37-47 [facility] Hemoglobin measurementOrdere d By: Pete Payne on 10-17-2024 Hemoglobin (Bld) [Mass/Vol] 11.1 g/dL Low 12.0-15.0 [facility] Immature granulocytes/100 WB C Auto (Bld)Ordered By: Pete Payne on 10-17-2024 Immature granulocytes/100 WBC (Bld) 0.400 % 0.0-0.9 [facility] Comment on above: IG% - Immature Granu locytes (promyelocytes, myelocytes and metamyelocytes) > 1% indicates that a LEFT SHIFT is Present. Lymphocytes Auto (Unsp spec) [#/Vol]Ordered By: Pete Payne on 10-17-2024 Lymphocytes (Bld) [#/Vol] 3.03 10*3/uL 0.83-4.51 [facility] Lymphocytes/100 WBC Auto (Un sp spec)Ordered By: Pete Payne on 10-17-2024 Lymphocytes/100 WBC (Bld) 31.8 % 19-41 [facility] MCV (mean corpuscular volume ) determinationOrdered By: Pete Payne on 10-17-2024 MCV (RBC) [Entitic vol] 92.4 fL 81-99 [facility] Mean corpuscular hemoglobin (MCH) determinationOrdered By: alexisfarmingdalesudarshan Payne on 10-17-2024 MCH (RBC) [Entitic mass] 30.1 pg 27.0-32.0 [facility] Mean corpuscular hemoglobin concentration (MCHC) determinationOrdered By: alexisfarmingdalesudarshan Payne on 10-17-2024 MCHC (RBC) [Mass/Vol] 32.6 g/dL 32-[address] [facility] Mean platelet volume determi nationOrdered By: Pete Payne on 10-17-2024 Platelet mean volume (Bld) [Entitic vol] 10.0 fL 6.2-12.0 [facility] Monocyte percentageOrdered B y: Pete Payne on 10-17-2024 Monocytes/100 WBC (Bld) 7.4 % 0-10 [facility] Neutrophil percentageOrdered By: Pete Payne on 10-17-2024 Neutrophils/100 WBC (Bld) 56.0 % 47-70 [facility] Nucleated red blood cell per centageOrdered By: Pete Payne on 10-17-2024 Nucleated RBC/100 WBC (Bld) [Ratio] 0 % 0-5 [facility] Platelet countOrdered By: Celeste Payne on 10-17-2024 Platelets (Bld) [#/Vol] 346 10*3/uL 150-450 [facility] RBC Auto (Bld) [#/Vol]Ordere d By: Pete Payne on 10-17-2024 RBC (Bld) [#/Vol] 3.69 10*6/uL Low 4.2-5.4 [facility] White blood cell (WBC) count Ordered By: Pete Payne on 10-17-2024 WBC (Bld) [#/Vol] 9.5 10*3/uL 4.4-11.0 [facility] Absolute lymphocyte countOrd ered By: Pete Payne on 10-10-2024 Lymphocytes Auto (Unsp spec) [#/Vol] 2.36 10*3/uL 0.83-4.51 [facility] Absolute neutrophil countOrd ered By: Pete Payne on 10-10-2024 Neutrophils (Bld) [#/Vol] 5.5 10*3/uL 2.0-7.7 [facility] Automated lymphocyte count a s percentage of total leukocytesOrdered By: Pete Payne on 10-10-2024 Lymphocytes/100 WBC Auto (Unsp spec) 26.6 % 19-41 [facility] Basophil percentageOrdered B y: Pete Payne on 10-10-2024 Basophils/100 WBC (Bld) 0.9 % 0-1 [facility] Eosinophil percentageOrdered By: Pete Beltrane on 10-10-2024 Eosinophils/100 WBC (Bld) 2.8 % 0-5 [facility] Erythrocyte distribution wid th (RBC) [Ratio]Ordered By: Pete Payne on 10-10-2024 Erythrocyte distribution width (RBC) [Entitic vol] 45.0 fL High 35.1-43.9 [facility] Erythrocyte distribution wid th ratioOrdered By: Pete Payne on 10-10-2024 Erythrocyte distribution width (RBC) [Ratio] 13.2 % 11.6-14.6 [facility] Erythrocyte distribution wid th standard deviationOrdered By: Pete Payne on 10-10-2024 Erythrocyte distribution width (RBC) [Ratio] 45.0 fl High 35.1-43.9 [facility] Hematocrit Auto (Bld) [Volum e fraction]Ordered By: Pete Payne on 10-10-2024 Hematocrit (Bld) [Volume fraction] 35.0 % Low 37-47 [facility] Hemoglobin measurementOrdere d By: Pete Payne on 10-10-2024 Hemoglobin (Bld) [Mass/Vol] 11.3 g/dL Low 12.0-15.0 [facility] Immature granulocytes/100 WB C Auto (Bld)Ordered By: alexsifarmingdalesudarshan Payne on 10-10-2024 Immature granulocytes/100 WBC (Bld) 0.500 % 0.0-0.9 [facility] Comment on above: IG% - Immature Granu locytes (promyelocytes, myelocytes and metamyelocytes) > 1% indicates that a LEFT SHIFT is Present. Lymphocytes Auto (Unsp spec) [#/Vol]Ordered By: [facility] Payne on 10-10-2024 Lymphocytes (Bld) [#/Vol] 2.36 10*3/uL 0.83-4.51 [facility] Lymphocytes/100 WBC Auto (Un sp spec)Ordered By: geena Payne on 10-10-2024 Lymphocytes/100 WBC (Bld) 26.6 % 19-41 [facility] MCV (mean corpuscular volume ) determinationOrdered By: Pete Payne on 10-10-2024 MCV (RBC) [Entitic vol] 92.6 fL 81-99 [facility] Mean corpuscular hemoglobin (MCH) determinationOrdered By: Pete Payne on 10-10-2024 MCH (RBC) [Entitic mass] 29.9 pg 27.0-32.0 [facility] Mean corpuscular hemoglobin concentration (MCHC) determinationOrdered By: alexisfarmingdalesudarshan Payne on 10-10-2024 MCHC (RBC) [Mass/Vol] 32.3 g/dL 32-[address] [facility] Mean platelet volume determi nationOrdered By: Pete Beltrane on 10-10-2024 Platelet mean volume (Bld) [Entitic vol] 10.1 fL 6.2-12.0 [facility] Monocyte percentageOrdered B y: Efterezabe Devine on 10-10-2024 Monocytes/100 WBC (Bld) 6.7 % 0-10 [facility] Neutrophil percentageOrdered By: Efalexisongbe Oleriteshe on 10-10-2024 Neutrophils/100 WBC (Bld) 62.5 % 47-70 [facility] Nucleated red blood cell per centageOrdered By: Efterezabe Devine on 10-10-2024 Nucleated RBC/100 WBC (Bld) [Ratio] 0 % 0-5 [facility] Platelet countOrdered By: Ef geena Beltrane on 10-10-2024 Platelets (Bld) [#/Vol] 361 10*3/uL 150-450 [facility] RBC Auto (Bld) [#/Vol]Ordere d By: Efterezabe Devine on 10-10-2024 RBC (Bld) [#/Vol] 3.78 10*6/uL Low 4.2-5.4 [facility] White blood cell (WBC) count Ordered By: Pete Beltrane on 10-10-2024 WBC (Bld) [#/Vol] 8.9 10*3/uL 4.4-11.0 [facility] Absolute lymphocyte countOrd ered By: Efterezabe Devine on 10-06-2024 Lymphocytes Auto (Unsp spec) [#/Vol] 2.51 10*3/uL 0.83-4.51 [facility] Absolute neutrophil countOrd ered By: Saturninoongbe Devine on 10-06-2024 Neutrophils (Bld) [#/Vol] 4.8 10*3/uL 2.0-7.7 [facility] Automated lymphocyte count a s percentage of total leukocytesOrdered By: Pete Beltrane on 10-06-2024 Lymphocytes/100 WBC Auto (Unsp spec) 30.2 % 19-41 [facility] Basophil percentageOrdered B y: Pete Payne on 10-06-2024 Basophils/100 WBC (Bld) 1.0 % 0-1 [facility] Eosinophil percentageOrdered By: Pete Payne on 10-06-2024 Eosinophils/100 WBC (Bld) 3.1 % 0-5 [facility] Erythrocyte distribution wid th (RBC) [Ratio]Ordered By: alexisfarmingdalesudarshan Payne on 10-06-2024 Erythrocyte distribution width (RBC) [Entitic vol] 44.4 fL High 35.1-43.9 [facility] Erythrocyte distribution wid th ratioOrdered By: [facility] Elmer on 10-06-2024 Erythrocyte distribution width (RBC) [Ratio] 13.3 % 11.6-14.6 [facility] Erythrocyte distribution wid th standard deviationOrdered By: [facility]als[facility] Payne on 10-06-2024 Erythrocyte distribution width (RBC) [Ratio] 44.4 fl High 35.1-43.9 [facility] Hematocrit Auto (Bld) [Volum e fraction]Ordered By: Pete Beltranandrew on 10-06-2024 Hematocrit (Bld) [Volume fraction] 33.2 % Low 37-47 [facility] Hemoglobin measurementOrdere d By: Pete Payne on 10-06-2024 Hemoglobin (Bld) [Mass/Vol] 11.2 g/dL Low 12.0-15.0 [facility] Immature granulocytes/100 WB C Auto (Bld)Ordered By: alexiskeishasudarshan Pfeifferriteshandrew on 10-06-2024 Immature granulocytes/100 WBC (Bld) 0.400 % 0.0-0.9 [facility] Comment on above: IG% - Immature Granu locytes (promyelocytes, myelocytes and metamyelocytes) > 1% indicates that a LEFT SHIFT is Present. Lymphocytes Auto (Unsp spec) [#/Vol]Ordered By: Pete Beltranandrew on 10-06-2024 Lymphocytes (Bld) [#/Vol] 2.51 10*3/uL 0.83-4.51 [facility] Lymphocytes/100 WBC Auto (Un sp spec)Ordered By: Celestealexiskeishasudarshan Pfeifferriteshandrew on 03-20-2025 Lymphocytes/100 WBC (Bld) 30.2 % 19-41 [facility] MCV (mean corpuscular volume ) determinationOrdered By: Pete Payne on 10-06-2024 MCV (RBC) [Entitic vol] 91.5 fL 81-99 [facility] Mean corpuscular hemoglobin (MCH) determinationOrdered By: Efalexisongbe Kentrellghe on 10-06-2024 MCH (RBC) [Entitic mass] 30.9 pg 27.0-32.0 [facility] Mean corpuscular hemoglobin concentration (MCHC) determinationOrdered By: Pete Beltrane on 10-06-2024 MCHC (RBC) [Mass/Vol] 33.7 g/dL 32-[address] [facility] Mean platelet volume determi nationOrdered By: Efalexisongbe Devine on 10-06-2024 Platelet mean volume (Bld) [Entitic vol] 9.8 fL 6.2-12.0 [facility] Monocyte percentageOrdered B y: Efalexisongbe Devine on 10-06-2024 Monocytes/100 WBC (Bld) 7.9 % 0-10 [facility] Neutrophil percentageOrdered By: Saturninoongbe Devine on 10-06-2024 Neutrophils/100 WBC (Bld) 57.4 % 47-70 [facility] Nucleated red blood cell per centageOrdered By: Saturninoongbe Devine on 10-06-2024 Nucleated RBC/100 WBC (Bld) [Ratio] 0 % 0-5 [facility] Platelet countOrdered By: Ef alexisongbe Devine on 10-06-2024 Platelets (Bld) [#/Vol] 348 10*3/uL 150-450 [facility] RBC Auto (Bld) [#/Vol]Ordere d By: Efalexisongbe Kentrellghe on 10-06-2024 RBC (Bld) [#/Vol] 3.63 10*6/uL Low 4.2-5.4 [facility] White blood cell (WBC) count Ordered By: Nithinbe Kentrellghe on 10-06-2024 WBC (Bld) [#/Vol] 8.3 10*3/uL 4.4-11.0 [facility] T4 freeOrdered By: Pete Payne on 10-03-2024 Free T4 [Mass/Vol] 1.20 ng/dL 0.76-1.46 [facility] TSH DL <= 0.005 mIU/L QnOrde red By: Pete Payne on 10-03-2024 Thyroid Stimulating Hormone (TSH) 4.480 uIU/mL High 0.300-4.200 [facility] TSH Qn 4.480 uIU/mL High 0.300-4.200 [facility] Absolute lymphocyte countOrd ered By: Pete Payne on 08-23-2024 Lymphocytes Auto (Unsp spec) [#/Vol] 2.44 10*3/uL 0.83-4.51 [facility] Absolute neutrophil countOrd ered By: Pete Payne on 08-23-2024 Neutrophils (Bld) [#/Vol] 5.4 10*3/uL 2.0-7.7 [facility] Albumin to globulin ratioOrd ered By: Pete Payne on 08-23-2024 Albumin/Globulin [Mass ratio] 0.7 {ratio} Low 0.9-2.4 [facility] Automated lymphocyte count a s percentage of total leukocytesOrdered By: Pete Payne on 08-23-2024 Lymphocytes/100 WBC Auto (Unsp spec) 27.5 % 19-41 [facility] Basophil percentageOrdered B y: Pete Payne on 08-23-2024 Basophils/100 WBC (Bld) 0.6 % 0-1 [facility] Bilirubin, totalOrdered By: Pete Payne on 08-23-2024 Bilirubin [Mass/Vol] 0.90 mg/dL 0.20-1.00 [facility] Comment on above: For patients on eltr ombopag therapy, use of Dimension [place] TBIL is not recommended. Blood urea nitrogen (BUN)/cr eatinine ratioOrdered By: Pete Payne on 08-23-2024 Urea nitrogen/Creatinine [Mass ratio] 19.5 mg/mg 10-20 [facility] Carbon dioxide measurementOr dered By: Pete Payne on 08-23-2024 CO2 [Moles/Vol] 25.0 mmol/L 21.0-32.0 [facility] Chloride measurementOrdered By: Pete Payne on 08-23-2024 Chloride [Moles/Vol] 108 mmol/L High 98-107 [facility] Eosinophil percentageOrdered By: Pete Payne on 08-23-2024 Eosinophils/100 WBC (Bld) 3.4 % 0-5 [facility] Erythrocyte distribution wid th (RBC) [Ratio]Ordered By: Pete Payne on 08-23-2024 Erythrocyte distribution width (RBC) [Entitic vol] 47.5 fL High 35.1-43.9 [facility] Erythrocyte distribution wid th ratioOrdered By: Pete Payne on 08-23-2024 Erythrocyte distribution width (RBC) [Ratio] 13.8 % 11.6-14.6 [facility] Erythrocyte distribution wid th standard deviationOrdered By: Pete Payne on 08-23-2024 Erythrocyte distribution width (RBC) [Ratio] 47.5 fl High 35.1-43.9 [facility] Estimated glomerular filtrat ion rate (GFR) AmericanOrdered By: Pete Payne on 08-23-2024 Estimated GFR (MDRD) Amer 69 mL/min >60 [facility] Comment on above: GFR Calc Glomerular filtration rate ( GFR) estimationOrdered By: Pete Payne on 08-23-2024 Estimated GFR (MDRD) Non-Af Amer 57 mL/min Low >60 [facility] Comment on above: Non- GFR Calc GFR/1.73 sq M.predicted among non-blacks MDRD (S/P/Bld) [Vol rate/Area] 57 mL/min/{1.73_m2} Low >60 [facility] Comment on above: Non- GFR Calc Glucose measurementOrdered B y: Pete Payne on 08-23-2024 Glucose [Mass/Vol] 122 mg/dL High 74-106 [facility] Comment on above: Fasting Glucose resu lt from 100 to 125 mg/dL suggests IMPAIRED HOMEOSTASIS per A.D.A. criteria. Hematocrit Auto (Bld) [Volum e fraction]Ordered By: Pete Payne on 08-23-2024 Hematocrit (Bld) [Volume fraction] 34.2 % Low 37-47 [facility] Hemoglobin A1c percentageOrd ered By: Pete aPyne on 08-23-2024 HbA1c (Bld) [Mass fraction] 6.5 % High 3.8-5.6 [facility] Comment on above: Normal < 5.7 % Predi abetic 5.7 - 6.4 % Diabetic >or= 6.5 % Please note range changes. Hemoglobin measurementOrdere d By: Pete Payne on 08-23-2024 Hemoglobin (Bld) [Mass/Vol] 11.0 g/dL Low 12.0-15.0 [facility] Immature granulocytes/100 WB C Auto (Bld)Ordered By: Pete Payne on 08-23-2024 Immature granulocytes/100 WBC (Bld) 0.600 % 0.0-0.9 [facility] Comment on above: IG% - Immature Granu locytes (promyelocytes, myelocytes and metamyelocytes) > 1% indicates that a LEFT SHIFT is Present. Laboratory - Chemistry and C hemistry - challengeOrdered By: Pete Payne on 08-23-2024 AST [Catalytic activity/Vol] 12 U/L Low 15-37 [facility] Lymphocytes Auto (Unsp spec) [#/Vol]Ordered By: Pete Payne on 08-23-2024 Lymphocytes (Bld) [#/Vol] 2.44 10*3/uL 0.83-4.51 [facility] Lymphocytes/100 WBC Auto (Un sp spec)Ordered By: Pete Payne on 08-23-2024 Lymphocytes/100 WBC (Bld) 27.5 % 19-41 [facility] MCV (mean corpuscular volume ) determinationOrdered By: Pete Payne on 08-23-2024 MCV (RBC) [Entitic vol] 93.4 fL 81-99 [facility] Mean corpuscular hemoglobin (MCH) determinationOrdered By: Pete Payne on 08-23-2024 MCH (RBC) [Entitic mass] 30.1 pg 27.0-32.0 [facility] Mean corpuscular hemoglobin concentration (MCHC) determinationOrdered By: Pete Payne on 08-23-2024 MCHC (RBC) [Mass/Vol] 32.2 g/dL 32-[address] [facility] Mean platelet volume determi nationOrdered By: Pete Payne on 08-23-2024 Platelet mean volume (Bld) [Entitic vol] 10.2 fL 6.2-12.0 [facility] Monocyte percentageOrdered B y: Pete Payne on 08-23-2024 Monocytes/100 WBC (Bld) 7.2 % 0-10 [facility] Neutrophil percentageOrdered By: Pete Payne on 08-23-2024 Neutrophils/100 WBC (Bld) 60.7 % 47-70 [facility] Nucleated red blood cell per centageOrdered By: Pete Payne on 08-23-2024 Nucleated RBC/100 WBC (Bld) [Ratio] 0 % 0-5 [facility] Platelet countOrdered By: Celeste Payne on 08-23-2024 Platelets (Bld) [#/Vol] 352 10*3/uL 150-450 [facility] Potassium measurementOrdered By: Pete Payne on 08-23-2024 Potassium [Moles/Vol] 4.0 mmol/L 3.5-5.[address] [facility] RBC Auto (Bld) [#/Vol]Ordere d By: Pete Payne on 08-23-2024 RBC (Bld) [#/Vol] 3.66 10*6/uL Low 4.2-5.4 [facility] Serum anion gap measurementO rdered By: Pete Payne on 08-23-2024 Anion gap [Moles/Vol] 8 mmol/L 5-[address] [facility] Serum globulin measurementOr dered By: Pete Payne on 08-23-2024 Globulin (S) [Mass/Vol] 3.5 g/dL 2.2-4.2 [facility] Serum or plasma alanine castro otransferase (ALT) measurementOrdered By: Pete Payne on 08-23-2024 ALT [Catalytic activity/Vol] 12 U/L Low 13-56 [facility] Serum or plasma albumin karri urement (mass/volume)Ordered By: Pete Payne on 08-23-2024 Albumin [Mass/Vol] 2.6 g/dL Low 3.2-5.0 [facility] Serum or plasma alkaline corky sphatase measurementOrdered By: Pete Payne on 08-23-2024 ALP [Catalytic activity/Vol] 54 U/L 45-117 [facility] Serum or plasma calcium karri urement (mass/volume)Ordered By: Pete Payne 08-23-2024 Calcium [Mass/Vol] 8.5 mg/dL 8.5-10.1 [facility] Serum or plasma creatinine m easurement (mass/volume)Ordered By: Pete Payne on 08-23-2024 Creatinine [Mass/Vol] 0.98 mg/dL 0.55-1.[address] [facility] Comment on above: The validity of the calculated GFR & GFRAA in patients over 70 years has not been determined. Clinical correlation is essential. Serum or plasma thyroid stim ulating hormone (TSH) measurement (units/volume)Ordered By: Pete Payne on 08-23-2024 TSH Qn 3.840 uIU/mL High 0.358-3.740 [facility] Serum or plasma urea nitroge n measurement (mass/volume)Ordered By: Pete Payne 08-23-2024 Urea nitrogen [Mass/Vol] 19 mg/dL High 7-18 [facility] Sodium levelOrdered By: Saturnino Payne 08-23-2024 Sodium [Moles/Vol] 141 mmol/L 136-145 [facility] TSH QnOrdered By: Pete Payne 08-23-2024 Thyroid Stimulating Hormone (TSH) 3.840 uIU/mL High 0.358-3.740 [facility] Total proteinOrdered By: Ramsey Payne 08-23-2024 Protein [Mass/Vol] 6.1 g/dL Low 6.4-8.2 [facility] White blood cell (WBC) count Ordered By: Pete Payne on 08-23-2024 WBC (Bld) [#/Vol] 8.9 10*3/uL 4.4-11.0 [facility] TSH QnOrdered By: Pete Payne on 07-11-2024 Thyroid Stimulating Hormone (TSH) 3.030 uIU/mL 0.358-3.740 [facility] Absolute lymphocyte countOrd ered By: alexisfarmingdalesudarshan Pfeifferandrew on 08-25-2023 Lymphocytes Auto (Unsp spec) [#/Vol] 2.56 10*3/uL 0.83-4.51 [facility] Automated lymphocyte count a s percentage of total leukocytesOrdered By: Pete Payne on 08-25-2023 Lymphocytes/100 WBC Auto (Unsp spec) 28.1 % 19-41 [facility] Basophil percentageOrdered B y: Pete Payne on 08-25-2023 Basophils/100 WBC (Bld) 1.0 % 0-1 [facility] Bilirubin [Mass/Vol] 1.00 mg/dL 0.20-1.00 [facility] Comment on above: For patients on eltr ombopag therapy, use of Dimension [place] TBIL is not recommended. Chloride [Moles/Vol] 107 mmol/L 98-107 [facility] Eosinophils/100 WBC (Bld) 3.4 % 0-5 [facility] Glucose [Mass/Vol] 143 mg/dL 74-106 [facility] Comment on above: Fasting Glucose resu lt greater than or equal to 126 mg/dL suggests DIABETES MELLITUS per A.D.A. criteria. Hemoglobin (Bld) [Mass/Vol] 11.1 g/dL 12.0-15.0 [facility] Monocytes/100 WBC (Bld) 6.9 % 0-10 [facility] Neutrophils (Bld) [#/Vol] 5.5 10*3/uL 2.0-7.7 [facility] Neutrophils/100 WBC (Bld) 60.3 % 47-70 [facility] Potassium [Moles/Vol] 4.1 mmol/L 3.5-5.[address] [facility] Protein [Mass/Vol] 6.8 g/dL 6.4-8.2 [facility] Sodium [Moles/Vol] 140 mmol/L 136-145 [facility] WBC (Bld) [#/Vol] 9.1 10*3/uL 4.4-11.0 [facility] Determination of erythrocyte mean corpuscular volume (MCV)Ordered By: Pete Payne on 08-25-2023 MCV (RBC) [Entitic vol] 93.5 fL 81-99 [facility] Erythrocyte distribution wid th ratioOrdered By: [facility] Kentrellandrew on 08-25-2023 Erythrocyte distribution width (RBC) [Ratio] 12.9 % 11.6-14.6 [facility] Erythrocyte distribution wid th standard deviationOrdered By: [facility] Kentrellandrew on 08-25-2023 Erythrocyte distribution width (RBC) [Entitic vol] 44.3 fL 35.1-43.9 [facility] Hematocrit Auto (Bld) [Volum e fraction]Ordered By: [facility] Kentrellandrew on 08-25-2023 Hematocrit (Bld) [Volume fraction] 34.5 % 37-47 [facility] Immature granulocytes/100 WB C Auto (Bld)Ordered By: [facility] Kentrellandrew on 08-25-2023 Immature granulocytes/100 WBC (Bld) 0.300 % 0.0-0.9 [facility] Comment on above: IG% - Immature Granu locytes (promyelocytes, myelocytes and metamyelocytes) > 1% indicates that a LEFT SHIFT is Present. Laboratory - Chemistry and C hemistry - challengeOrdered By: alexisfarmingdalesudarshan Payne on 08-25-2023 Albumin/Globulin [Mass ratio] 0.8 {ratio} 0.9-2.4 [facility] ALP [Catalytic activity/Vol] 62 U/L 45-117 [facility] ALT [Catalytic activity/Vol] 14 U/L 13-56 [facility] CO2 [Moles/Vol] 25.0 mmol/L 21.0-32.0 [facility] Globulin (S) [Mass/Vol] 3.8 g/dL 2.2-4.2 [facility] Urea nitrogen/Creatinine [Mass ratio] 20.9 mg/mg 10-20 [facility] Laboratory - Hematology and Cell countsOrdered By: Pete Payne on 08-25-2023 MCH (RBC) [Entitic mass] 30.1 pg 27.0-32.0 [facility] MCHC (RBC) [Mass/Vol] 32.2 g/dL 32-[address] [facility] Nucleated RBC/100 WBC (Bld) [Ratio] 0 % 0-5 [facility] Platelet mean volume (Bld) [Entitic vol] 10.2 fL 6.2-12.0 [facility] Platelets (Bld) [#/Vol] 373 10*3/uL 150-450 [facility] No Panel InformationOrdered By: Pete Payne on 08-25-2023 Estimated GFR (MDRD) Amer 71 mL/min >60 [facility] Comment on above: GFR Calc Estimated GFR (MDRD) Non-Af Amer 59 mL/min >60 [facility] Comment on above: Non- GFR Calc RBC Auto (Bld) [#/Vol]Ordere d By: Pete Payne on 08-25-2023 RBC (Bld) [#/Vol] 3.69 10*6/uL 4.2-5.4 [facility] Serum or plasma calcium karri urement (mass/volume)Ordered By: Pete Payne on 08-25-2023 Calcium [Mass/Vol] 9.4 mg/dL 8.5-10.1 [facility] Serum or plasma creatinine m easurement (mass/volume)Ordered By: Pete Payne on 08-25-2023 Creatinine [Mass/Vol] 0.96 mg/dL 0.55-1.[address] [facility] Comment on above: The validity of the calculated GFR & GFRAA in patients over 70 years has not been determined. Clinical correlation is essential. Serum or plasma urea nitroge n measurement (mass/volume)Ordered By: Pete Payne on 08-25-2023 Urea nitrogen [Mass/Vol] 20 mg/dL 7-18 [facility] Thin prep Papanicolaou smear with manual screeningOrdered By: Pete Payne on 08-25-2023 Thin prep Papanicolaou smear with manual screening 3.0 g/dL 3.2-5.0 [facility] Thin prep Papanicolaou smear with manual screening 13 U/L 15-37 [facility] Thin prep Papanicolaou smear with manual screening 8 5-15 [facility] Whole blood hemoglobin A1c/t otal hemoglobin ratio (mass fraction)Ordered By: Pete Payne on 08-25-2023 HbA1c (Bld) [Mass fraction] 6.9 % 3.8-5.6 [facility] Comment on above: Normal < 5.7 % Predi abetic 5.7 - 6.4 % Diabetic >or= 6.5 % Please note range changes. Laboratory - Chemistry and C hemistry - challengeOrdered By: Pete Payne on 03-16-2023 Free T4 [Mass/Vol] 1.07 ng/dL 0.76-1.46 [facility] No Panel InformationOrdered By: Pete Payne on 03-16-2023 Thyroid Stimulating Hormone (TSH) 4.03 uIU/mL 0.358-3.74 [facility] Total Triiodothyronine 1.24 ng/mL 0.6-1.81 [facility] Absolute lymphocyte countOrd ered By: Pete Payne on 03-12-2023 Lymphocytes Auto (Unsp spec) [#/Vol] 2.46 10*3/uL 0.83-4.51 [facility] Basophil percentageOrdered B y: Pete Payne on 03-12-2023 Basophils/100 WBC (Bld) 1.1 % 0-1 [facility] Bilirubin [Mass/Vol] 0.70 mg/dL 0.20-1.00 [facility] Comment on above: For patients on eltr ombopag therapy, use of Dimension [place] TBIL is not recommended. Chloride [Moles/Vol] 106 mmol/L 98-107 [facility] Cholesterol [Mass/Vol] 106 mg/dL <200 [facility] Comment on above: <200 mg/dL Desirable 200-240 mg/dL Borderline >240 mg/dL High Risk Eosinophils/100 WBC (Bld) 2.8 % 0-5 [facility] Glucose [Mass/Vol] 151 mg/dL 74-106 [facility] Comment on above: Fasting Glucose resu lt greater than or equal to 126 mg/dL suggests DIABETES MELLITUS per A.D.A. criteria. Neutrophils (Bld) [#/Vol] 4.8 10*3/uL 2.0-7.7 [facility] Neutrophils/100 WBC (Bld) 57.0 % 47-70 [facility] Potassium [Moles/Vol] 4.1 mmol/L 3.5-5.[address] [facility] Protein [Mass/Vol] 6.3 g/dL 6.4-8.2 [facility] Sodium [Moles/Vol] 138 mmol/L 136-145 [facility] Triglyceride [Mass/Vol] 135 mg/dL <199 [facility] Comment on above: The drugs N-Acetylcy steine and Metamizole may falsely depress this assay.Serum Triglycerides Reference Interval Normal <150 mg/dL Borderline high 150 - 199 mg/dL High 200 - 499 mg/dL Very High > or = 500 mg/dL WBC (Bld) [#/Vol] 8.3 10*3/uL 4.4-11.0 [facility] Blood erythrocytes count (nu mber/volume)Ordered By: Pete Payne on 03-12-2023 RBC (Bld) [#/Vol] 3.59 10*6/uL 4.2-5.4 [facility] Blood hemoglobin measurement (mass/volume)Ordered By: Pete Payne on 03-12-2023 Hemoglobin (Bld) [Mass/Vol] 11.0 g/dL 12.0-15.0 [facility] Blood lymphocytes/100 leukoc ytesOrdered By: Pete Payne on 03-12-2023 Lymphocytes/100 WBC (Bld) 29.5 % 19-41 [facility] Blood monocytes/100 leukocyt esOrdered By: Pete Payne on 03-12-2023 Monocytes/100 WBC (Bld) 9.2 % 0-10 [facility] Blood platelet mean volumeOr dered By: Pete Payne on 03-12-2023 Platelet mean volume (Bld) [Entitic vol] 9.8 fL 6.2-12.0 [facility] Determination of erythrocyte mean corpuscular volume (MCV)Ordered By: Pete Payne on 03-12-2023 MCV (RBC) [Entitic vol] 93.9 fL 81-99 [facility] Hematocrit Auto (Bld) [Volum e fraction]Ordered By: [facility] on 03-12-2023 Hematocrit (Bld) [Volume fraction] 33.7 % 37-47 [facility] Laboratory - Chemistry and C hemistry - challengeOrdered By: [facility] Pfeifferandrew on 03-12-2023 ALP [Catalytic activity/Vol] 57 U/L 45-117 [facility] ALT [Catalytic activity/Vol] 16 U/L 13-56 [facility] CO2 [Moles/Vol] 25.0 mmol/L 21.0-32.0 [facility] Globulin (S) [Mass/Vol] 3.4 g/dL 2.2-4.2 [facility] Urea nitrogen/Creatinine [Mass ratio] 16.0 mg/mg 10-20 [facility] Laboratory - Hematology and Cell countsOrdered By: alexisfarmingdalesudarshan Pfeifferandrew on 03-12-2023 Erythrocyte distribution width (RBC) [Entitic vol] 42.9 fL 35.1-43.9 [facility] Erythrocyte distribution width (RBC) [Ratio] 12.4 % 11.6-14.6 [facility] Immature granulocytes/100 WBC (Bld) 0.400 % 0.0-0.9 [facility] Comment on above: IG% - Immature Granu locytes (promyelocytes, myelocytes and metamyelocytes) > 1% indicates that a LEFT SHIFT is Present. MCH (RBC) [Entitic mass] 30.6 pg 27.0-32.0 [facility] Nucleated RBC/100 WBC (Bld) [Ratio] 0 % 0-5 [facility] MCHC Auto (RBC) [Mass/Vol]Or dered By: alexisfarmingdalesudarshan Payne on 03-12-2023 MCHC (RBC) [Mass/Vol] 32.6 g/dL 32-[address] [facility] No Panel InformationOrdered By: Pete Payne on 03-12-2023 Estimated GFR (MDRD) Amer 63 mL/min >60 [facility] Comment on above: GFR Calc Estimated GFR (MDRD) Non-Af Amer 52 mL/min >60 [facility] Comment on above: Non- GFR Calc Thyroid Stimulating Hormone (TSH) 4.75 uIU/mL 0.358-3.74 [facility] Vitamin D 25-Hydroxy 107.1 ng/mL [facility] Comment on above: Vitamin D 25(OH) [...] 03-12-2023 Platelets (Bld) [#/Vol] 361 10*3/uL 150-450 [facility] Serum or plasma albumin karri urement (mass/volume)Ordered By: Pete Payne on 03-12-2023 Albumin [Mass/Vol] 2.9 g/dL 3.2-5.0 [facility] Serum or plasma albumin/glob ulin mass ratioOrdered By: Pete Payne on 03-12-2023 Albumin/Globulin [Mass ratio] 0.9 {ratio} 0.9-2.4 [facility] Serum or plasma calcium karri urement (mass/volume)Ordered By: Pete Payne on 03-12-2023 Calcium [Mass/Vol] 9.0 mg/dL 8.5-10.1 [facility] Serum or plasma cholesterol in HDL measurement (mass/volume)Ordered By: Pete Payne on 03-12-2023 Cholesterol in HDL [Mass/Vol] 46 mg/dL >40 [facility] Comment on above: The drugs N-Acetylcy steine and Metamizole may falsely depress this assay. Reference Range HDL <40 mg/dL Low HDL Cholesterol HDL >or= 60 mg/dL High HDL Cholesterol Serum or plasma cholesterol in VLDL measurement (mass/volume)Ordered By: Pete Payne on 03-12-2023 Cholesterol in VLDL [Mass/Vol] 27 mg/dL 5-40 [facility] Serum or plasma creatinine m easurement (mass/volume)Ordered By: Pete Payne on 03-12-2023 Creatinine [Mass/Vol] 1.06 mg/dL 0.55-1.[address] [facility] Comment on above: The validity of the calculated GFR & GFRAA in patients over 70 years has not been determined. Clinical correlation is essential. Serum or plasma low density lipoprotein (LDL) cholesterol measurement (mass/volume)Ordered By: Pete Payne on 03-12-2023 Cholesterol in LDL [Mass/Vol] 33 mg/dL 0-130 [facility] Serum or plasma urea nitroge n measurement (mass/volume)Ordered By: Pete Payne on 03-12-2023 Urea nitrogen [Mass/Vol] 17 mg/dL 7-18 [facility] Thin prep Papanicolaou smear with manual screeningOrdered By: Pete Payne on 03-12-2023 Thin prep Papanicolaou smear with manual screening 13 U/L 15-37 [facility] Thin prep Papanicolaou smear with manual screening 7 5-15 [facility] Whole blood hemoglobin A1c/t otal hemoglobin ratio (mass fraction)Ordered By: Pete Payne on 03-12-2023 HbA1c (Bld) [Mass fraction] 7.2 % 3.8-5.6 [facility] Comment on above: Normal < 5.7 % Predi abetic 5.7 - 6.4 % Diabetic >or= 6.5 % Please note range changes. Absolute lymphocyte countOrd ered By: Pete Payne on 12-01-2022 Lymphocytes Auto (Unsp spec) [#/Vol] 2.66 10*3/uL 0.83-4.51 [facility] Basophil percentageOrdered B y: Pete Payne on 12-01-2022 Basophils/100 WBC (Bld) 1.0 % 0-1 [facility] Bilirubin [Mass/Vol] 1.00 mg/dL 0.20-1.00 [facility] Comment on above: For patients on eltr ombopag therapy, use of Dimension [place] TBIL is not recommended. Chloride [Moles/Vol] 100 mmol/L 98-107 [facility] Eosinophils/100 WBC (Bld) 2.3 % 0-5 [facility] Glucose [Mass/Vol] 152 mg/dL 74-106 [facility] Comment on above: Fasting Glucose resu lt greater than or equal to 126 mg/dL suggests DIABETES MELLITUS per A.D.A. criteria. Neutrophils (Bld) [#/Vol] 5.8 10*3/uL 2.0-7.7 [facility] Neutrophils/100 WBC (Bld) 60.2 % 47-70 [facility] Potassium [Moles/Vol] 4.3 mmol/L 3.5-5.[address] [facility] Protein [Mass/Vol] 6.1 g/dL 6.4-8.2 [facility] Sodium [Moles/Vol] 138 mmol/L 136-145 [facility] WBC (Bld) [#/Vol] 9.7 10*3/uL 4.4-11.0 [facility] Blood erythrocytes count (nu mber/volume)Ordered By: Pete Payne on 12-01-2022 RBC (Bld) [#/Vol] 3.46 10*6/uL 4.2-5.4 [facility] Blood hemoglobin measurement (mass/volume)Ordered By: Pete Payne on 12-01-2022 Hemoglobin (Bld) [Mass/Vol] 10.8 g/dL 12.0-15.0 [facility] Blood lymphocytes/100 leukoc ytesOrdered By: Pete Payne on 12-01-2022 Lymphocytes/100 WBC (Bld) 27.5 % 19-41 [facility] Blood monocytes/100 leukocyt esOrdered By: geena Payne on 12-01-2022 Monocytes/100 WBC (Bld) 8.4 % 0-10 [facility] Blood platelet mean volumeOr dered By: alexisfarmingdalesudarshan Payne on 12-01-2022 Platelet mean volume (Bld) [Entitic vol] 9.9 fL 6.2-12.0 [facility] Determination of erythrocyte mean corpuscular volume (MCV)Ordered By: alexisfarmingdalesudarshan Payne on 12-01-2022 MCV (RBC) [Entitic vol] 97.1 fL 81-99 [facility] Hematocrit Auto (Bld) [Volum e fraction]Ordered By: [facility] on 12-01-2022 Hematocrit (Bld) [Volume fraction] 33.6 % 37-47 [facility] Laboratory - Chemistry and C hemistry - challengeOrdered By: Pete Payne on 12-01-2022 ALP [Catalytic activity/Vol] 60 U/L 45-117 [facility] ALT [Catalytic activity/Vol] 22 U/L 13-56 [facility] CO2 [Moles/Vol] 29.0 mmol/L 21.0-32.0 [facility] Globulin (S) [Mass/Vol] 3.3 g/dL 2.2-4.2 [facility] Urea nitrogen/Creatinine [Mass ratio] 16.1 mg/mg 10-20 [facility] Laboratory - Hematology and Cell countsOrdered By: Pete Payne on 12-01-2022 Erythrocyte distribution width (RBC) [Entitic vol] 44.6 fL 35.1-43.9 [facility] Erythrocyte distribution width (RBC) [Ratio] 12.5 % 11.6-14.6 [facility] Immature granulocytes/100 WBC (Bld) 0.600 % 0.0-0.9 [facility] Comment on above: IG% - Immature Granu locytes (promyelocytes, myelocytes and metamyelocytes) > 1% indicates that a LEFT SHIFT is Present. MCH (RBC) [Entitic mass] 31.2 pg 27.0-32.0 [facility] Nucleated RBC/100 WBC (Bld) [Ratio] 0 % 0-5 [facility] Auto ([facility]BC) [Mass/Vol]Or dered By: Pete Payne on 12-01-2022 MCHC (RBC) [Mass/Vol] 32.1 g/dL 32-[address] [facility] No Panel InformationOrdered By: Pete Payne on 12-01-2022 Estimated GFR (MDRD) Amer 59 mL/min >60 [facility] Comment on above: GFR Calc Estimated GFR (MDRD) Non-Af Amer 49 mL/min >60 [facility] Comment on above: Non- GFR Calc Platelets bldOrdered By: Ramsey Payne on 12-01-2022 Platelets (Bld) [#/Vol] 517 10*3/uL 150-450 [facility] Serum or plasma albumin karir urement (mass/volume)Ordered By: Pete Payne on 12-01-2022 Albumin [Mass/Vol] 2.8 g/dL 3.2-5.0 [facility] Serum or plasma albumin/glob ulin mass ratioOrdered By: Pete Payne on 12-01-2022 Albumin/Globulin [Mass ratio] 0.8 {ratio} 0.9-2.4 [facility] Serum or plasma calcium karri urement (mass/volume)Ordered By: Pete Payne on 12-01-2022 Calcium [Mass/Vol] 9.0 mg/dL 8.5-10.1 [facility] Serum or plasma creatinine m easurement (mass/volume)Ordered By: Pete Payne on 12-01-2022 Creatinine [Mass/Vol] 1.12 mg/dL 0.55-1.[address] [facility] Comment on above: The validity of the calculated GFR & GFRAA in patients over 70 years has not been determined. Clinical correlation is essential. Serum or plasma urea nitroge n measurement (mass/volume)Ordered By: Pete Payne on 12-01-2022 Urea nitrogen [Mass/Vol] 18 mg/dL 7-18 [facility] Thin prep Papanicolaou smear with manual screeningOrdered By: Pete Payne on 12-01-2022 Thin prep Papanicolaou smear with manual screening 15 U/L 15-37 [facility] Thin prep Papanicolaou smear with manual screening 9 5-15 [facility] Glucose Glucometer (BldC) [M ass/Vol]Ordered By: Dr. Crooks on 11-29-2022 Glucose [Mass/Vol] 95 mg/dL 74-106 [facility] Comment on above: MANAGEMENT OF PATIEN T CARE PER NURSING PROTOCOL Absolute lymphocyte countOrd ered By: Dr. Crooks on 11-28-2022 Lymphocytes Auto (Unsp spec) [#/Vol] 2.74 10*3/uL 0.83-4.51 [facility] Basophil percentageOrdered B y: Dr. Crooks on 11-28-2022 Basophils/100 WBC (Bld) 0.9 % 0-1 [facility] Chloride [Moles/Vol] 104 mmol/L 98-107 [facility] Eosinophils/100 WBC (Bld) 2.2 % 0-5 [facility] Glucose [Mass/Vol] 146 mg/dL 74-106 [facility] Comment on above: Fasting Glucose resu lt greater than or equal to 126 mg/dL suggests DIABETES MELLITUS per A.D.A. criteria. Neutrophils (Bld) [#/Vol] 7.4 10*3/uL 2.0-7.7 [facility] Neutrophils/100 WBC (Bld) 65.0 % 47-70 [facility] Potassium [Moles/Vol] 4.2 mmol/L 3.5-5.[address] [facility] Sodium [Moles/Vol] 137 mmol/L 136-145 [facility] WBC (Bld) [#/Vol] 11.4 10*3/uL 4.4-11.0 [facility] Blood erythrocytes count (nu mber/volume)Ordered By: Dr. Crooks on 11-28-2022 RBC (Bld) [#/Vol] 3.62 10*6/uL 4.2-5.4 [facility] Blood hemoglobin measurement (mass/volume)Ordered By: Dr. Crooks on 11-28-2022 Hemoglobin (Bld) [Mass/Vol] 11.2 g/dL 12.0-15.0 [facility] Blood lymphocytes/100 leukoc ytesOrdered By: Dr. Crooks on 11-28-2022 Lymphocytes/100 WBC (Bld) 24.1 % 19-41 [facility] Blood monocytes/100 leukocyt esOrdered By: Dr. Crooks on 11-28-2022 Monocytes/100 WBC (Bld) 7.2 % 0-10 [facility] Blood platelet mean volumeOr dered By: Dr. Crooks on 11-28-2022 Platelet mean volume (Bld) [Entitic vol] 9.3 fL 6.2-12.0 [facility] Determination of erythrocyte mean corpuscular volume (MCV)Ordered By: Dr. Crooks on 11-28-2022 MCV (RBC) [Entitic vol] 96.4 fL 81-99 [facility] Glucose Glucometer (BldC) [M ass/Vol]Ordered By: Dr. Crooks on 11-28-2022 Glucose [Mass/Vol] 146 mg/dL 74-106 [facility] Comment on above: MANAGEMENT OF PATIEN T CARE PER NURSING PROTOCOL Hematocrit Auto (Bld) [Volum e fraction]Ordered By: Dr. Crooks on 11-28-2022 Hematocrit (Bld) [Volume fraction] 34.9 % 37-47 [facility] Laboratory - Chemistry and C hemistry - challengeOrdered By: Dr. Crooks on 11-28-2022 CO2 [Moles/Vol] 28.0 mmol/L 21.0-32.0 [facility] Urea nitrogen/Creatinine [Mass ratio] 18.2 mg/mg 10-20 [facility] Laboratory - Hematology and Cell countsOrdered By: Dr. Crooks on 11-28-2022 Erythrocyte distribution width (RBC) [Entitic vol] 43.3 fL 35.1-43.9 [facility] Erythrocyte distribution width (RBC) [Ratio] 12.4 % 11.6-14.6 [facility] Immature granulocytes/100 WBC (Bld) 0.600 % 0.0-0.9 [facility] Comment on above: IG% - Immature Granu locytes (promyelocytes, myelocytes and metamyelocytes) > 1% indicates that a LEFT SHIFT is Present. MCH (RBC) [Entitic mass] 30.9 pg 27.0-32.0 [facility] Nucleated RBC/100 WBC (Bld) [Ratio] 0 % 0-5 [facility] MCHC Auto (RBC) [Mass/Vol]Or dered By: Dr. Crooks on 11-28-2022 MCHC (RBC) [Mass/Vol] 32.1 g/dL 32-[address] [facility] No Panel InformationOrdered By: Dr. Crooks on 11-28-2022 Estimated Creatinine Clearance Calc 37.22 ml/min [facility] Estimated GFR (MDRD) Amer 73 mL/min >60 [facility] Comment on above: GFR Calc Estimated GFR (MDRD) Non-Af Amer 61 mL/min >60 [facility] Comment on above: Non- GFR Calc Platelets bldOrdered By: Dr. Crooks on 11-28-2022 Platelets (Bld) [#/Vol] 445 10*3/uL 150-450 [facility] Serum or plasma calcium karri urement (mass/volume)Ordered By: Dr. Crooks on 11-28-2022 Calcium [Mass/Vol] 8.9 mg/dL 8.5-10.1 [facility] Serum or plasma creatinine m easurement (mass/volume)Ordered By: Dr. Crooks on 11-28-2022 Creatinine [Mass/Vol] 0.93 mg/dL 0.55-1.[address] [facility] Comment on above: The validity of the calculated GFR & GFRAA in patients over 70 years has not been determined. Clinical correlation is essential. Serum or plasma urea nitroge n measurement (mass/volume)Ordered By: Dr. Crooks on 11-28-2022 Urea nitrogen [Mass/Vol] 17 mg/dL 7-18 [facility] Thin prep Papanicolaou smear with manual screeningOrdered By: Dr. Crooks on 11-28-2022 Thin prep Papanicolaou smear with manual screening 5 5-15 [facility] COVID-19 virus antigen assay Ordered By: Sylvester Crooks on 11-16-2022 SARS-CoV-2 (COVID-19) Ag IA.rapid Ql (Resp) [facility] COVID-19 virus antigen assay Ordered By: Dr. Crooks on 11-16-2022 SARS-CoV-2 (COVID-19) Ag IA.rapid Ql (Resp) [facility] Culture, urineOrdered By: Dr Néstor Crooks on 11-16-2022 Bacteria identified Cx Nom (U) Escherichia coli [facility] Bacteria identified Cx Nom (U) Klebsiella pneumoniae sp pneum [facility] Basophil percentageOrdered B y: Dr. Crooks on 11-14-2022 Basophil percentage 10-25 SEEN /hpf 0-5 [facility] Bilirubin Test strip Ql (U)O rdered By: Dr. Crooks on 11-14-2022 Bilirubin Ql (U) Negative Negative [facility] Culture, urineOrdered By: Raffi Crooks on 11-14-2022 Bacteria identified Cx Nom (U) Escherichia coli [facility] Bacteria identified Cx Nom (U) Klebsiella pneumoniae sp pneum [facility] Ketones Test strip Ql (U)Ord ered By: Dr. Crooks on 11-14-2022 Ketones Ql (U) Negative Negative [facility] Mucus LM Ql (Urine sed)Order ed By: Dr. Crooks on 11-14-2022 Mucus Ql (Urine sed) 0 SEEN /hpf [facility] Nitrite Test strip Ql (U)Ord ered By: Dr. Crooks on 11-14-2022 Nitrite Ql (U) Negative Negative [facility] No Panel InformationOrdered By: Dr. Crooks on 11-14-2022 Urine Transitional Epithelial Cells 0-5 SEEN /hpf 0-5 [facility] Protein Test strip Ql (U)Ord ered By: Dr. Crooks on 11-14-2022 Protein Ql (U) Negative Negative [facility] Squamous epithelial cells de tection in urine sediment by light microscopyOrdered By: Dr. Crooks on 11-14-2022 Epithelial cells.squamous LM Ql (Urine sed) 0-5 SEEN /hpf 5-10 [facility] Urine blood detectionOrdered By: Dr. Crooks on 11-14-2022 RBC Ql (U) 10 /ul Negative [facility] RBC Ql (U) 0-5 SEEN /hpf 0-5 [facility] Urine clarityOrdered By: Dr. Crooks on 11-14-2022 Clarity (U) Sl. Cloudy Clear [facility] Urine color determinationOrd ered By: Dr. Crooks on 11-14-2022 Color (U) Yellow Yellow [facility] Urine glucose detectionOrder ed By: Dr. Crooks on 11-14-2022 Glucose Ql (U) 100 mg/dl Normal [facility] Urine leukocyte esterase det ection by dipstickOrdered By: Dr. Crooks on 11-14-2022 Leukocyte esterase Test strip Ql (U) 100 /ul Negative [facility] Urine pHOrdered By: Dr. Crooks on 11-14-2022 pH (U) 6.0 [pH] 5.0 - 8.0 [facility] Urine sediment bacteria coun t by microscopy (number/high power field)Ordered By: Dr. Crooks on 11-14-2022 Bacteria LM.HPF (Urine sed) [#/Area] 1 /[HPF] None Seen [facility] Urine specific gravity measu rementOrdered By: Dr. Crooks on 11-14-2022 Specific gravity (U) [Rel density] 1.010 1.002-1.030 [facility] Urobilinogen Auto test strip Ql (U)Ordered By: Dr. Crooks on 11-14-2022 Urobilinogen Ql (U) Normal mg/dl Normal [facility] Absolute lymphocyte countOrd ered By: Dr. Betancur on 11-13-2022 Lymphocytes Auto (Unsp spec) [#/Vol] 3.26 10*3/uL 0.83-4.51 [facility] Basophil percentageOrdered B y: Dr. Betancur on 11-13-2022 Basophils/100 WBC (Bld) 0.7 % 0-1 [facility] Bilirubin [Mass/Vol] 1.00 mg/dL 0.20-1.00 [facility] Comment on above: For patients on eltr ombopag therapy, use of Dimension [place] TBIL is not recommended. Chloride [Moles/Vol] 106 mmol/L 98-107 [facility] Eosinophils/100 WBC (Bld) 1.7 % 0-5 [facility] Glucose [Mass/Vol] 150 mg/dL 74-106 [facility] Comment on above: Fasting Glucose resu lt greater than or equal to 126 mg/dL suggests DIABETES MELLITUS per A.D.A. criteria. Neutrophils (Bld) [#/Vol] 8.7 10*3/uL 2.0-7.7 [facility] Neutrophils/100 WBC (Bld) 66.3 % 47-70 [facility] Potassium [Moles/Vol] 3.9 mmol/L 3.5-5.[address] [facility] Protein [Mass/Vol] 5.6 g/dL 6.4-8.2 [facility] Sodium [Moles/Vol] 132 mmol/L 136-145 [facility] WBC (Bld) [#/Vol] 13.2 10*3/uL 4.4-11.0 [facility] Blood erythrocytes count (nu mber/volume)Ordered By: Dr. Betancur on 11-13-2022 RBC (Bld) [#/Vol] 3.32 10*6/uL 4.2-5.4 [facility] Blood hemoglobin measurement (mass/volume)Ordered By: Dr. Betancur on 11-13-2022 Hemoglobin (Bld) [Mass/Vol] 10.5 g/dL 12.0-15.0 [facility] Blood lymphocytes/100 leukoc ytesOrdered By: Dr. Betancur on 11-13-2022 Lymphocytes/100 WBC (Bld) 24.7 % 19-41 [facility] Blood monocytes/100 leukocyt esOrdered By: Dr. Betancur on 11-13-2022 Monocytes/100 WBC (Bld) 6.2 % 0-10 [facility] Blood platelet mean volumeOr dered By: Dr. Betancur on 11-13-2022 Platelet mean volume (Bld) [Entitic vol] 8.6 fL 6.2-12.0 [facility] COVID-19 virus antigen assay Ordered By: Bernice Betancur on 11-13-2022 SARS-CoV-2 (COVID-19) Ag IA.rapid Ql (Resp) [facility] COVID-19 virus antigen assay Ordered By: Dr. Betancur on 11-13-2022 SARS-CoV-2 (COVID-19) Ag IA.rapid Ql (Resp) [facility] Determination of erythrocyte mean corpuscular volume (MCV)Ordered By: Dr. Betancur on 11-13-2022 MCV (RBC) [Entitic vol] 92.5 fL 81-99 [facility] Direct bilirubinOrdered By: Dr. Betancur on 11-13-2022 Bilirubin.direct [Mass/Vol] 0.34 mg/dL 0.00-0.30 [facility] Hematocrit Auto (Bld) [Volum e fraction]Ordered By: Dr. Betancur on 11-13-2022 Hematocrit (Bld) [Volume fraction] 30.7 % 37-47 [facility] Iron measurement (mass/mass) Ordered By: Dr. Betancur on 11-13-2022 Iron (Unsp spec) [Mass/Mass] 48 ug/dL 50-170 [facility] Laboratory - Chemistry and C hemistry - challengeOrdered By: Dr. Betancur on 11-13-2022 ALP [Catalytic activity/Vol] 35 U/L 45-117 [facility] ALT [Catalytic activity/Vol] 19 U/L 13-56 [facility] CO2 [Moles/Vol] 23.0 mmol/L 21.0-32.0 [facility] Cobalamin (Vitamin B12) [Mass/Vol] 583 pg/mL 211-911 [facility] Free T4 [Mass/Vol] 1.48 ng/dL 0.76-1.46 [facility] Globulin (S) [Mass/Vol] 2.8 g/dL 2.2-4.2 [facility] Urea nitrogen/Creatinine [Mass ratio] 17.2 mg/mg 10-20 [facility] Laboratory - Hematology and Cell countsOrdered By: Dr. Betancur on 11-13-2022 Erythrocyte distribution width (RBC) [Entitic vol] 42.5 fL 35.1-43.9 [facility] Erythrocyte distribution width (RBC) [Ratio] 12.7 % 11.6-14.6 [facility] Immature granulocytes/100 WBC (Bld) 0.400 % 0.0-0.9 [facility] Comment on above: IG% - Immature Granu locytes (promyelocytes, myelocytes and metamyelocytes) > 1% indicates that a LEFT SHIFT is Present. MCH (RBC) [Entitic mass] 31.6 pg 27.0-32.0 [facility] Nucleated RBC/100 WBC (Bld) [Ratio] 0 % 0-5 [facility] MCHC Auto (RBC) [Mass/Vol]Or dered By: Dr. Betancur on 11-13-2022 MCHC (RBC) [Mass/Vol] 34.2 g/dL 32-[address] [facility] No Panel InformationOrdered By: Dr. Betancur on 11-13-2022 Estimated Creatinine Clearance Calc 35.38 ml/min [facility] Estimated GFR (MDRD) Amer 103 mL/min >60 [facility] Comment on above: GFR Calc Estimated GFR (MDRD) Non-Af Amer 85 mL/min >60 [facility] Comment on above: Non- GFR Calc Thyroid Stimulating Hormone (TSH) 1.14 uIU/mL 0.358-3.74 [facility] Total Iron Binding Capacity 214 ug/dL 250-450 [facility] Platelets bldOrdered By: Dr. Betancur on 11-13-2022 Platelets (Bld) [#/Vol] 370 10*3/uL 150-450 [facility] Serum or plasma albumin karri urement (mass/volume)Ordered By: Dr. Betancur on 11-13-2022 Albumin [Mass/Vol] 2.8 g/dL 3.2-5.0 [facility] Serum or plasma calcium karri urement (mass/volume)Ordered By: Dr. Betancur on 11-13-2022 Calcium [Mass/Vol] 8.3 mg/dL 8.5-10.1 [facility] Serum or plasma creatinine m easurement (mass/volume)Ordered By: Dr. Betancur on 11-13-2022 Creatinine [Mass/Vol] 0.70 mg/dL 0.55-1.[address] [facility] Comment on above: The validity of the calculated GFR & GFRAA in patients over 70 years has not been determined. Clinical correlation is essential. Serum or plasma ferritin jolanta surement (mass/volume)Ordered By: Dr. Betancur on 11-13-2022 Ferritin [Mass/Vol] 195 ng/mL 8-252 [facility] Serum or plasma urea nitroge n measurement (mass/volume)Ordered By: Dr. Betancur on 11-13-2022 Urea nitrogen [Mass/Vol] 12 mg/dL 7-18 [facility] Thin prep Papanicolaou smear with manual screeningOrdered By: Dr. Betancur on 11-13-2022 Thin prep Papanicolaou smear with manual screening 16 U/L 15-37 [facility] Thin prep Papanicolaou smear with manual screening 3 5-15 [facility] Glucose Glucometer (BldC) [M ass/Vol]Ordered By: Dr. Brody on 11-12-2022 Glucose [Mass/Vol] 121 mg/dL 74-106 [facility] Comment on above: MANAGEMENT OF PATIEN T CARE PER NURSING PROTOCOL No Panel InformationOrdered By: Dr. Brody on 11-12-2022 Vitamin D 25-Hydroxy 43.8 ng/mL [facility] Comment on above: Vitamin D 25(OH) Sta tus Range Deficiency <20 ng/mL (50nmol/L) Insufficiency 20 - 30 ng/mL (50 - 75 nmol/L) Sufficiency 30 - 100 ng/mL (75 - 250 nmol/L) Toxicity >100 ng/mL (>250 nmol/L) Serum or plasma cortisol jolanta surement (mass/volume)Ordered By: Dr. Brody on 11-12-2022 Cortisol [Mass/Vol] 28.20 ug/dL 3.44-22.45 [facility] Comment on above: Adult (AM) 5.27 - 22 .45 ug/dL Adult (PM) 3.44 - 16.76 ug/dLPlease note revised CORTISOL reference range effective 2019. Whole blood hemoglobin A1c/t otal hemoglobin ratio (mass fraction)Ordered By: Dr. Betancur on 11-12-2022 HbA1c (Bld) [Mass fraction] 7.0 % 3.8-5.6 [facility] Comment on above: Normal < 5.7 % Predi abetic 5.7 - 6.4 % Diabetic >or= 6.5 % Please note range changes. Absolute lymphocyte countOrd ered By: Dr. Ewing on 11-11-2022 Lymphocytes Auto (Unsp spec) [#/Vol] 4.35 10*3/uL 0.83-4.51 [facility] Basophil percentageOrdered B y: Dr. Ewing on 11-11-2022 Basophil percentage 0 SEEN /hpf 0-5 [facility] Ammonia (P) [Moles/Vol] 16.0 umol/L 11-32 [facility] Basophils/100 WBC (Bld) 0.6 % 0-1 [facility] Bilirubin [Mass/Vol] 1.90 mg/dL 0.20-1.00 [facility] Comment on above: For patients on eltr ombopag therapy, use of Dimension [place] TBIL is not recommended. Chloride [Moles/Vol] 91 mmol/L 98-107 [facility] Eosinophils/100 WBC (Bld) 0.9 % 0-5 [facility] Glucose [Mass/Vol] 159 mg/dL 74-106 [facility] Comment on above: Fasting Glucose resu lt greater than or equal to 126 mg/dL suggests DIABETES MELLITUS per A.D.A. criteria. Neutrophils (Bld) [#/Vol] 8.3 10*3/uL 2.0-7.7 [facility] Neutrophils/100 WBC (Bld) 59.4 % 47-70 [facility] Potassium [Moles/Vol] 3.4 mmol/L 3.5-5.[address] [facility] Protein [Mass/Vol] 7.4 g/dL 6.4-8.2 [facility] Sodium [Moles/Vol] 127 mmol/L 136-145 [facility] WBC (Bld) [#/Vol] 13.9 10*3/uL 4.4-11.0 [facility] Bilirubin Test strip Ql (U)O rdered By: Dr. Ewing on 11-11-2022 Bilirubin Ql (U) Negative Negative [facility] Blood erythrocytes count (nu mber/volume)Ordered By: Dr. Ewing on 11-11-2022 RBC (Bld) [#/Vol] 4.23 10*6/uL 4.2-5.4 [facility] Blood hemoglobin measurement (mass/volume)Ordered By: Dr. Ewing on 11-11-2022 Hemoglobin (Bld) [Mass/Vol] 13.5 g/dL 12.0-15.0 [facility] Blood lymphocytes/100 leukoc ytesOrdered By: Dr. Ewing on 11-11-2022 Lymphocytes/100 WBC (Bld) 31.3 % 19-41 [facility] Blood monocytes/100 leukocyt esOrdered By: Dr. Ewing on 11-11-2022 Monocytes/100 WBC (Bld) 7.4 % 0-10 [facility] Blood platelet mean volumeOr dered By: Dr. Ewing on 11-11-2022 Platelet mean volume (Bld) [Entitic vol] 8.8 fL 6.2-12.0 [facility] Determination of erythrocyte mean corpuscular volume (MCV)Ordered By: Dr. Ewing on 11-11-2022 MCV (RBC) [Entitic vol] 88.7 fL 81-99 [facility] Direct bilirubinOrdered By: Dr. Ewing on 11-11-2022 Bilirubin.direct [Mass/Vol] 0.47 mg/dL 0.00-0.30 [facility] Hematocrit Auto (Bld) [Volum e fraction]Ordered By: Dr. Ewing on 11-11-2022 Hematocrit (Bld) [Volume fraction] 37.5 % 37-47 [facility] Ketones Test strip Ql (U)Ord ered By: Dr. Ewing on 11-11-2022 Ketones Ql (U) 5 mg/dl Negative [facility] Laboratory - Chemistry and C hemistry - challengeOrdered By: Dr. Brody on 11-11-2022 Sodium (U) [Moles/Vol] 8 mmol/L Not Establ. [facility] Magnesium [Mass/Vol] 1.6 mg/dL 1.6-2.6 [facility] Laboratory - Chemistry and C hemistry - challengeOrdered By: Dr. Ewing on 11-11-2022 ALP [Catalytic activity/Vol] 45 U/L 45-117 [facility] ALT [Catalytic activity/Vol] 30 U/L 13-56 [facility] CO2 [Moles/Vol] 28.0 mmol/L 21.0-32.0 [facility] Globulin (S) [Mass/Vol] 3.5 g/dL 2.2-4.2 [facility] Urea nitrogen/Creatinine [Mass ratio] 16.2 mg/mg 10-20 [facility] Laboratory - Hematology and Cell countsOrdered By: Dr. Ewing on 11-11-2022 Erythrocyte distribution width (RBC) [Entitic vol] 39.2 fL 35.1-43.9 [facility] Erythrocyte distribution width (RBC) [Ratio] 12.0 % 11.6-14.6 [facility] Immature granulocytes/100 WBC (Bld) 0.400 % 0.0-0.9 [facility] Comment on above: IG% - Immature Granu locytes (promyelocytes, myelocytes and metamyelocytes) > 1% indicates that a LEFT SHIFT is Present. MCH (RBC) [Entitic mass] 31.9 pg 27.0-32.0 [facility] Nucleated RBC/100 WBC (Bld) [Ratio] 0 % 0-5 [facility] MCHC Auto (RBC) [Mass/Vol]Or dered By: Dr. Ewing on 11-11-2022 MCHC (RBC) [Mass/Vol] 36.0 g/dL 32-[address] [facility] Mucus LM Ql (Urine sed)Order ed By: Dr. Ewing on 11-11-2022 Mucus Ql (Urine sed) 0 SEEN /hpf [facility] Nitrite Test strip Ql (U)Ord ered By: Dr. Ewing on 11-11-2022 Nitrite Ql (U) Negative Negative [facility] No Panel InformationOrdered By: Dr. Ewing on 11-11-2022 Estimated Creatinine Clearance Calc 27.90 ml/min [facility] Estimated GFR (MDRD) Amer 50 mL/min >60 [facility] Comment on above: GFR Calc Estimated GFR (MDRD) Non-Af Amer 41 mL/min >60 [facility] Comment on above: Non- GFR Calc Troponin I High Sensitivity 13 pg/mL 3.0-54.0 [facility] Comment on above: Please Note: New Denia t Units and Gender Specific Reference Ranges. For more information see Policy Stat Procedure [place] High Sensitivity Troponin (TNIH) and attachments. Platelets bldOrdered By: Dr. Ewing on 11-11-2022 Platelets (Bld) [#/Vol] 506 10*3/uL 150-450 [facility] Protein Test strip Ql (U)Ord ered By: Dr. Ewing on 11-11-2022 Protein Ql (U) Negative Negative [facility] Serum or plasma albumin karri urement (mass/volume)Ordered By: Dr. Ewing on 11-11-2022 Albumin [Mass/Vol] 3.9 g/dL 3.2-5.0 [facility] Serum or plasma calcium karri urement (mass/volume)Ordered By: Dr. Ewing on 11-11-2022 Calcium [Mass/Vol] 9.9 mg/dL 8.5-10.1 [facility] Serum or plasma creatinine m easurement (mass/volume)Ordered By: Dr. Ewing on 11-11-2022 Creatinine [Mass/Vol] 1.30 mg/dL 0.55-1.[address] [facility] Comment on above: The validity of the calculated GFR & GFRAA in patients over 70 years has not been determined. Clinical correlation is essential. Serum or plasma urea nitroge n measurement (mass/volume)Ordered By: Dr. Ewing on 11-11-2022 Urea nitrogen [Mass/Vol] 21 mg/dL 7-18 [facility] Serum or plasma uric acid me asurement (mass/volume)Ordered By: Dr. Brody on 11-11-2022 Urate [Mass/Vol] 4.3 mg/dL 2.6-6.0 [facility] Comment on above: The drugs N-Acetylcy steine and Metamizole may falsely depress this assay. Squamous epithelial cells de tection in urine sediment by light microscopyOrdered By: Dr. Ewing on 11-11-2022 Epithelial cells.squamous LM Ql (Urine sed) 0 SEEN /hpf 5-10 [facility] Thin prep Papanicolaou smear with manual screeningOrdered By: Dr. Brody on 11-11-2022 Thin prep Papanicolaou smear with manual screening 277 mOsm/KG 280-301 [facility] Thin prep Papanicolaou smear with manual screeningOrdered By: Dr. Ewing on 11-11-2022 Thin prep Papanicolaou smear with manual screening 25 U/L 15-37 [facility] Thin prep Papanicolaou smear with manual screening 8 5-15 [facility] Urine blood detectionOrdered By: Dr. Ewing on 11-11-2022 RBC Ql (U) Negative Negative [facility] RBC Ql (U) 0 SEEN /hpf 0-5 [facility] Urine clarityOrdered By: Dr. Ewing on 11-11-2022 Clarity (U) Clear Clear [facility] Urine color determinationOrd ered By: Dr. Ewing on 11-11-2022 Color (U) Yellow Yellow [facility] Urine glucose detectionOrder ed By: Dr. Ewing on 11-11-2022 Glucose Ql (U) Normal mg/dl Normal [facility] Urine leukocyte esterase det ection by dipstickOrdered By: Dr. Ewing on 11-11-2022 Leukocyte esterase Test strip Ql (U) Negative Negative [facility] Urine osmolality measurement Ordered By: Dr. Brody on 11-11-2022 Osmolality (U) [Osmolality] 227 mOsm/KG >50 [facility] Comment on above: Normal Urine Referen ce Ranges Random: 50 - 1200 mOsm/kg H20 depending on fluid intake Random: >850 mOsm/kg after 12 hour fluid restriction 24 hour: ~300 - 900 mOsm/kg H2O Urine pHOrdered By: Dr. Atiya bender on 11-11-2022 pH (U) 6.0 [pH] 5.0 - 8.0 [facility] Urine sediment bacteria coun t by microscopy (number/high power field)Ordered By: Dr. Ewing on 11-11-2022 Bacteria LM.HPF (Urine sed) [#/Area] 0 /[HPF] None Seen [facility] Urine specific gravity measu rementOrdered By: Dr. Ewing on 11-11-2022 Specific gravity (U) [Rel density] 1.010 1.002-1.030 [facility] Urobilinogen Auto test strip Ql (U)Ordered By: Dr. Ewing on 11-11-2022 Urobilinogen Ql (U) Normal mg/dl Normal [facility] Vital Signs Date Time Vital Sign Value Performing Clinician Carmencitai prashant 11-04-2024 03:00-0400 Respiratory rate 16 /min Dr. Pete Payne MD Work Phone: [facility] 11-04-2024 00:21-0400 Body temperature 98.2 [degF] Dr. Pete Payne MD Work Phone: [facility] 11-04-2024 00:21-0400 Diastolic blood pressure 60 mm[Hg] Dr. Pete Payne MD Work Phone: [facility] 11-04-2024 00:21-0400 Heart rate 84 /min Dr. Pete Payne MD Work Phone: [facility] 11-04-2024 00:21-0400 SaO2% (BldA) [Mass fraction] 97 % Dr. Pete Payne MD Work Phone: [facility] 11-04-2024 00:21-0400 Systolic blood pressure 143 mm[Hg] Dr. Pete Payne MD Work Phone: [facility] 11-03-2024 21:08-0400 Body height 147.[address] Pete Payne MD Work Phone: [facility] 11-03-2024 21:08-0400 Body mass index (BMI) [Ratio] 29.4 kg/m2 Dr. Pete Payne MD Work Phone: [facility] 11-03-2024 21:08-0400 Body weight 63.[address] Pete Payne MD Work Phone: [facility] 07-25-2023 13:00-0500 Body temperature 97.7 [degF] Dr. Pete Payne Work Phone: [facility] 07-25-2023 13:00-0500 Diastolic blood pressure 74 mm[Hg] Dr. Pete Payne Work Phone: [facility] 07-25-2023 13:00-0500 Heart rate 86 /min Dr. Pete Payne Work Phone: [facility] 07-25-2023 13:00-0500 Respiratory rate 16 /min Dr. Pete Payne Work Phone: [facility] 07-25-2023 13:00-0500 SaO2% (BldA) [Mass fraction] 98 % Dr. Pete Payne Work Phone: [facility] 07-25-2023 13:00-0500 Systolic blood pressure 136 mm[Hg] Dr. Pete Payne Work Phone: [facility] 07-25-2023 08:00-0500 Body height 147.[address] Pete Payne Work Phone: [facility] 07-25-2023 08:00-0500 Body mass index (BMI) [Ratio] 29.2 kg/m2 Dr. Pete Payne Work Phone: [facility] 07-25-2023 08:00-0500 Body weight 63.[address] Pete Payne Work Phone: [facility] 01-20-2023 03:50-0400 Diastolic blood pressure 61 mm[Hg] Dr. Nancy Ewing Work Phone: [facility] 01-20-2023 03:50-0400 Heart rate 78 /min Dr. Nancy Ewing Work Phone: [facility] 01-20-2023 03:50-0400 Respiratory rate 18 /min Dr. Nancy Ewing Work Phone: [facility] 01-20-2023 03:50-0400 SaO2% (BldA) [Mass fraction] 97 % Dr. Nancy Ewing Work Phone: [facility] 01-20-2023 03:50-0400 Systolic blood pressure 146 mm[Hg] Dr. Nancy Ewing Work Phone: [facility] 01-20-2023 02:01-0400 Body height 147.[address] Nancy Ewing Work Phone: [facility] 01-20-2023 02:01-0400 Body mass index (BMI) [Ratio] 26.9 kg/m2 Dr. Nancy Ewing Work Phone: [facility] 01-20-2023 02:01-0400 Body temperature 97.5 [degF] Dr. Nancy Ewing Work Phone: 7(592)392-627527 [place] [address] 01-20-2023 02:01-0400 Body weight 58.[address] Nancy Ewing Work Phone: 7(247)198-007127 [place] [address] 11-29-2022 09:42-0400 Heart rate 92 /min Dr. Nancy Ewing Work Phone: 4(607)177-874027 [place] [address] 11-29-2022 09:42-0400 Respiratory rate 16 /min Dr. Nancy Ewing Work Phone: 2(387)264-191027 [place] [address] 11-29-2022 09:42-0400 SaO2% (BldA) [Mass fraction] 97 % Dr. Nancy Ewing Work Phone: 2(618)537-525027 [place] [address] 11-29-2022 09:41-0400 Body temperature 97.6 [degF] Dr. Nancy Ewing Work Phone: 5(265)475-319927 [place] [address] 11-29-2022 09:41-0400 Diastolic blood pressure 59 mm[Hg] Dr. Nancy Ewing Work Phone: 2(853)024-073627 [place] [address] 11-29-2022 09:41-0400 Systolic blood pressure 144 mm[Hg] Dr. Nancy Ewing Work Phone: 6(501)311-380527 [place] [address] 11-28-2022 13:27-0400 Body temperature 97.1 [degF] Dr. Nancy Ewing Work Phone: 6(786)954-275427 [place] [address] 11-28-2022 13:27-0400 Diastolic blood pressure 61 mm[Hg] Dr. Nancy Ewing Work Phone: 8(453)634-208327 [place] [address] 11-28-2022 13:27-0400 Heart rate 65 /min Dr. Nancy Ewing Work Phone: 7(060)951-906727 [place] [address] 11-28-2022 13:27-0400 Respiratory rate 16 /min Dr. Nancy Ewing Work Phone: 0(600)419-001427 [place] [address] 11-28-2022 13:27-0400 SaO2% (BldA) [Mass fraction] 95 % Dr. Nancy Ewing Work Phone: 3(271)278-094127 [place] [address] 11-28-2022 13:27-0400 Systolic blood pressure 133 mm[Hg] Dr. Nancy Ewing Work Phone: 3(514)708-716027 [place] [address] 11-26-2022 14:37-0400 Body height 147.[address] Nancy Ewing Work Phone: 4(363)723-202327 [place] [address] 11-26-2022 14:37-0400 Body weight 54.[address] Nancy Ewing Work Phone: 4(919)358-073227 [place] [address] 11-25-2022 12:48-0400 Body mass index (BMI) [Ratio] 25 kg/m2 Dr. Nancy Ewing Work Phone: 0(127)033-529527 [place] [address] 11-13-2022 14:35-0400 Body temperature 98 [degF] Dr. Nanyc Ewing Work Phone: 1(670)611-103727 [place] [address] 11-13-2022 14:35-0400 Diastolic blood pressure 48 mm[Hg] Dr. Nancy Ewing Work Phone: 8(620)887-777327 [place] [address] 11-13-2022 14:35-0400 Heart rate 71 /min Dr. Nancy Ewing Work Phone: 9(229)333-715027 [place] [address] 11-13-2022 14:35-0400 Respiratory rate 18 /min Dr. Nancy Ewing Work Phone: 5(308)329-001327 [place] [address] 11-13-2022 14:35-0400 SaO2% (BldA) [Mass fraction] 100 % Dr. Nancy Ewing Work Phone: 8(819)882-643027 [place] [address] 11-13-2022 14:35-0400 Systolic blood pressure 123 mm[Hg] Dr. Nancy Ewing Work Phone: 1(732)912-242027 [place] [address] 11-12-2022 12:32-0400 Body height 147.[address] Nancy Ewing Work Phone: 9(317)221-711227 [place] [address] 11-12-2022 12:32-0400 Body weight 55.[address] Nancy Ewing Work Phone: 3(268)769-223927 [place] [address] 11-11-2022 22:57-0400 Body mass index (BMI) [Ratio] 25.5 kg/m2 Dr. Nancy Ewing Work Phone: [facility] 11-11-2022 21:44-0400 Body temperature 97.8 [degF] Dr. Nancy Ewing Work Phone: [facility] 11-11-2022 21:44-0400 Diastolic blood pressure 60 mm[Hg] Dr. Nancy Ewing Work Phone: [facility] 11-11-2022 21:44-0400 Heart rate 75 /min Dr. Nancy Ewing Work Phone: [facility] 11-11-2022 21:44-0400 Respiratory rate 17 /min Dr. Nancy Ewing Work Phone: [facility] 11-11-2022 21:44-0400 SaO2% (BldA) [Mass fraction] 100 % Dr. Nancy Ewing Work Phone: [facility] 11-11-2022 21:44-0400 Systolic blood pressure 134 mm[Hg] Dr. Nancy Ewing Work Phone: [facility] 11-11-2022 16:37-0400 Body height 147.[address] Nancy Ewing Work Phone: [facility] 11-11-2022 16:37-0400 Body mass index (BMI) [Ratio] 26.2 kg/m2 Dr. Nancy Ewing Work Phone: [facility] 11-11-2022 16:37-0400 Body weight 56.[address] Nancy Ewing Work Phone: [facility] Encounters Encounter Date Encounter Type Care Provider Facility Start: 02-21-2025 ambulatory Pete Hightower ty:[facility] Start: 02-21-2025 Registered Referred Pete Payne MD [facility] Start: 02-06-2025 ambulatory Pete ROBERTS Fa cility:[facility] Start: 02-06-2025 Registered Referred Pete Vikr Start: 01-17-2025 End: 01-17-[address] Pete Payne MD Work Phone: [facility] Start: 01-17-2025 End: 01-17-[address] Pete Payne MD -[facility] Work Phone: Start: 01-13-2025 ambulatory Pete ROBERTS Fa cility:[facility] Start: 01-13-2025 Registered Referred Pete Virk Start: 01-03-2025 End: 01-03-[address] Pete Payne MD Work Phone: [facility] Start: 01-03-2025 End: 01-03-2025 Patient encounter procedure Poppy Cadenanickie [facility] Work Phone: Start: 12-26-2024 ambulatory Pete ROBERTS Fa cility:[facility] Start: 12-26-2024 Registered Referred Pete Virk Start: 12-13-2024 End: 12-13-[address] Pete Payne MD Work Phone: [facility] Work Phone: Start: 12-13-2024 End: 12-13-2024 Departed Referred Pete Virk Start: 12-13-2024 Registered Referred Pete Virk Start: 12-13-2024 End: 12-13-2024 ambulatory Pete ROBERTS Facility:[facility] Start: 12-06-2024 End: 12-06-[address] Pete Payne MD Work Phone: [facility] Start: 12-06-2024 End: 12-06-[address] Pete Payne MD -[facility] Work Phone: Start: 11-22-2024 End: 11-22-[address] Pete Payne MD Work Phone: [facility] Work Phone: Start: 11-22-2024 End: 11-22-2024 Departed Referred Pete Payne MD -[facility] Start: 11-22-2024 Registered Referred Pete Payne MD -[facility] Start: 11-22-2024 End: 11-22-2024 ambulatory Pete ROBERTS Facility:[facility] Start: 11-14-2024 End: 11-14-[address] Pete Payne MD Work Phone: [facility] Work Phone: Start: 11-14-2024 End: 11-14-2024 Departed Referred Pete Payne MD -[facility] Start: 11-14-2024 End: 11-14-2024 ambulatory Pete ROBERTS Facility:[facility] Start: 11-03-2024 End: 11-04-2024 Emergency department patient visit Dr. Pete Payne MD Work Phone: -Emergency Department Work Phone: Start: 10-21-2024 End: 10-21-2024 ambulatory Poppy Mccracken NP Facility:[facility] Start: 10-21-2024 End: 10-21-2024 Patient encounter procedure Poppy Mccracken [employer] WORK[employer]- -[facility] Work Phone: Start: 10-17-2024 End: 10-17-[address] Pete Payne MD Work Phone: [facility] Work Phone: Start: 10-17-2024 End: 10-17-2024 Departed Referred Pete Virk Start: 10-17-2024 Registered Referred Pete Virk Start: 10-17-2024 End: 10-17-2024 ambulatory Pete Payne OLS Facility:[facility] Start: 10-10-2024 End: 10-10-[address] Pete Payne MD Work Phone: [facility] Work Phone: Start: 10-10-2024 End: 10-10-2024 Departed Referred Pete Virk Start: 10-10-2024 Registered Referred Pete Virk Start: 10-10-2024 End: 10-10-2024 ambulatory Pete ROBERTS Facility:[facility] Start: 10-06-2024 End: 10-06-[address] Pete Payne MD Work Phone: [facility] Work Phone: Start: 10-06-2024 End: 10-06-2024 Departed Referred Pete Virk Start: 10-06-2024 Registered Referred Pete Virk Start: 10-06-2024 End: 10-06-2024 ambulatory Pete Payne Facility:[facility] Start: 10-03-2024 End: 10-03-[address] Pete Payne MD Work Phone: [facility] Work Phone: Start: 10-03-2024 End: 10-03-2024 Departed Referred Pete Virk Start: 10-03-2024 End: 10-03-2024 ambulatory Pete Payne Facility:[facility] Start: 09-20-2024 End: 09-20-2024 ambulatory Efewongbe Oleghe Facility:[facility] Start: 09-20-2024 End: 09-20-[address] Pete Payne MD -[facility] Work Phone: Start: 09-01-2024 End: 09-01-2024 ambulatory Mateo CRANDALL Facility:[facility] Start: 09-01-2024 End: 09-01-2024 Patient encounter procedure Mateo CRANDALL -[facility] Work Phone: Start: 08-23-2024 ambulatory Efewongbe Oleghe Facili ty:[facility] Start: 08-23-2024 Registered Referred Pete ZunigaEllie Moose Start: 07-11-2024 End: 07-11-2024 Departed Referred Pete ZunigaEllie Moose Start: 07-11-2024 End: 07-11-2024 ambulatory Efewongbe Kentrellriteshe Facility:[facility] Start: 06-21-2024 End: 06-21-2024 ambulatory Poppy Mccracken NP Facility:[facility] Start: 06-21-2024 End: 06-21-2024 Patient encounter procedure Poppy Mccracken [employer] WORKER-C -[facility] Work Phone: Start: 05-31-2024 End: 05-31-2024 ambulatory Efewongbe Kentrellghe Facility:[facility] Start: 05-30-2024 End: 05-30-2024 ambulatory Efewongbe Oleriteshe OLS Facility:[facility] Start: 05-24-2024 End: 05-24-2024 [facility] Start: 05-03-2024 End: 05-03-2024 ambulatory Efewongbe Oleghe Facility:[facility] Start: 04-18-2024 End: 04-18-2024 [facility] Start: 03-22-2024 End: 03-22-2024 ambulatory Efewongbe Oleghe Facility:[facility] Start: 03-07-2024 End: 03-07-2024 [facility] Start: 08-25-2023 End: 08-25-[address] Pete Payne Work Phone: [facility] Work Phone: Start: 08-25-2023 End: 08-25-[address] Pete Payne Work Phone: [facility] Start: 07-25-2023 End: 07-25-2023 Emergency department patient visit Dr. Pete Payne Work Phone: [facility]-Emergency Department Work Phone: Start: 07-02-2023 End: 07-02-[address] Pete Payne Work Phone: [facility] Work Phone: Start: 06-02-2023 End: 06-02-[address] Pete Payne Work Phone: [facility] Work Phone: Start: 05-04-2023 End: 05-04-[address] Pete Payne Work Phone: [facility] Work Phone: Start: 03-31-2023 End: 03-31-[address] Pete Payne Work Phone: [facility] Work Phone: Start: 03-16-2023 End: 03-16-[address] Pete Payne Work Phone: [facility] Work Phone: Start: 03-16-2023 End: 03-16-[address] Pete Payne Work Phone: [facility] Start: 03-16-[address] Madison Payne Work Phone: [facility] Start: 03-14-2023 End: 03-14-[address] Pete Payne Work Phone: [facility] Work Phone: Start: 03-12-2023 End: 03-12-[address] Pete Payne Work Phone: [facility] Work Phone: Start: 03-12-2023 End: 03-12-[address] Pete Payne Work Phone: [facility] Start: 01-27-2023 End: 01-27-[address] Pete Payne Work Phone: [facility] Work Phone: Start: 01-20-2023 End: 01-20-2023 Emergency department patient visit Dr. Nancy Ewing Work Phone: [facility]Emergency Department Work Phone: Start: 12-23-2022 End: 12-23-[address] Pete Payne Work Phone: [facility] Work Phone: Start: 12-02-2022 End: 12-02-[address] Nancy Ewing Work Phone: [facility] Work Phone: Start: 12-01-2022 End: 12-01-[address] Nancy Ewing Work Phone: [facility] Work Phone: Start: 12-01-2022 End: 12-01-[address] Nancy Ewing Work Phone: [facility] Start: 11-24-2022 End: 11-24-[address] Nancy Ewing Work Phone: [facility] Work Phone: Start: 11-24-2022 End: 11-24-[address] Nancy Ewing Work Phone: [facility]-Cat Scan, [facility] Start: 11-13-2022 End: 11-29-2022 Evaluation and management of inpatient Dr. Nancy Ewing Work Phone: [facility]-Transitional Care Unit Start: 11-13-2022 Non-patient / Non-visit Dr. Christophe Ewing Work Phone: [facility] Start: 11-12-2022 Non-patient / Non-visit Dr. Christophe Ewing Work Phone: [facility] Start: 11-11-2022 Non-patient / Non-visit Dr. Christophe Ewing Work Phone: [facility] Start: 11-11-2022 End: 11-13-2022 Evaluation and management of inpatient Dr. Nancy Ewing Work Phone: [facility]-Medical Surgical 3 Procedures Date Procedure Procedure [...] 01-20-2023 Plain X-ray of shoulder Dr. Nancy Eiwng Work Phone: Start: 01-20-2023 Radiologic examinati on [...] Date Care Activity Detail Author Start: 11-04-2024 [facility] Start: 11-03-2024 Simple repair f/e/e/ n/l/m 2.6cm-5.0 cm RPR F/E/E/N/L/M 2.6-5.0 CM [facility] Start: 07-25-2023 [facility] Start: 01-02-2023 Blood chemistry [facility] Start: 12-26-2022 Blood chemistry [facility] Start: 12-19-2022 Blood chemistry [facility] Start: 12-12-2022 Blood chemistry [facility] Start: 12-05-2022 Blood chemistry [facility] Start: 11-29-2022 Patient discharge [facility] Start: 11-28-2022 Development of care plan [facility] Start: 11-20-2022 [facility] Start: 11-20-2022 [facility] Start: 11-19-2022 Palliative care [facility] Start: 11-19-2022 [facility] Start: 11-18-2022 [facility] Start: 11-17-2022 [facility] Start: 11-16-2022 [facility] Start: 11-15-2022 [facility] Start: 11-14-2022 Developing a treatment plan [facility] Start: 11-14-2022 Speech therapy management [facility] Start: 11-14-2022 Development of care plan [facility] Start: 11-14-2022 End: 11-14-2022 [facility] Start: 11-13-2022 [facility] Start: 11-13-2022 Speech therapy assessment [facility] Start: 11-13-2022 Following clinical p athway protocol [facility] Start: 11-13-[address] [facility] Start: 11-13-2022 Measuring intake and output [facility] Start: 11-13-2022 Patient referral to dietitian [facility] Start: 11-13-2022 Referral to occupati onal therapist [facility] Start: 11-13-2022 Referral to service [facility] Start: 11-13-2022 Verification routine [facility] Start: 11-13-2022 Vital signs measurements [facility] Start: 11-13-2022 [facility] Start: 11-13-2022 Patient discharge [facility] Start: 11-12-2022 Vitamin D, 25-hydrox y measurement [facility] Start: 11-12-2022 [facility] Start: 11-12-2022 [facility] Start: 11-11-2022 Blood chemistry [facility] Start: 11-11-2022 Following clinical p athway protocol [facility] Start: 11-11-2022 Assessment of risk o f venous thromboembolism [facility] Start: 11-11-2022 Insertion of cathete r into peripheral vein [facility] Start: 11-11-2022 Oxygen therapy [facility] Start: 11-11-2022 Providing care accor ding to standard [facility] Start: 11-11-2022 Provision of activit y privileges [facility] Start: 11-11-2022 Referral to occupati onal therapist [facility] Start: 11-11-2022 Referral to service [facility] Start: 11-11-2022 [facility] Start: 11-11-2022 Verification routine [facility] Start: 11-11-[address] [facility] Start: 11-11-2022 Patient referral to dietitian [facility] Alanine aminotransfe rase [Enzymatic activity/volume] in Serum or Plasma [facility] Albumin [Mass/volume ] in Serum or Plasma [facility] Alkaline phosphatase [Enzymatic activity/volume] in Serum or Plasma [facility] Anion gap measurement [facility] Anion gap measurement [facility] Anion gap measurement [facility] Anion gap measurement [facility] Anion gap measurement [facility] Anion gap measurement [facility] Aspartate aminotrans ferase [Enzymatic activity/volume] in Serum or Plasma [facility] Bilirubin, total measurement [facility] Bilirubin.direct [Mass/volume] in Serum or Plasma [facility] BUN/Creatinine ratio [facility] BUN/Creatinine ratio [facility] BUN/Creatinine ratio [facility] BUN/Creatinine ratio [facility] BUN/Creatinine ratio [facility] BUN/Creatinine ratio [facility] Calcium [Mass/volume ] in Serum or Plasma [facility] Calcium [Mass/volume ] in Serum or Plasma [facility] Calcium [Mass/volume ] in Serum or Plasma [facility] Calcium [Mass/volume ] in Serum or Plasma [facility] Calcium [Mass/volume ] in Serum or Plasma [facility] Calcium [Mass/volume ] in Serum or Plasma [facility] Carbon dioxide, tota l [Moles/volume] in Serum or Plasma [facility] Carbon dioxide, tota l [Moles/volume] in Serum or Plasma [facility] Carbon dioxide, tota l [Moles/volume] in Serum or Plasma [facility] Carbon dioxide, tota l [Moles/volume] in Serum or Plasma [facility] Carbon dioxide, tota l [Moles/volume] in Serum or Plasma [facility] Carbon dioxide, tota l [Moles/volume] in Serum or Plasma [facility] Chloride [Moles/volu me] in Serum or Plasma [facility] Chloride [Moles/volu me] in Serum or Plasma [facility] Chloride [Moles/volu me] in Serum or Plasma [facility] Chloride [Moles/volu me] in Serum or Plasma [facility] Chloride [Moles/volu me] in Serum or Plasma [facility] Chloride [Moles/volu me] in Serum or Plasma [facility] Cortisol [Mass/volum e] in Serum or Plasma [facility] Creatinine [Moles/vo lume] in Serum or Plasma [facility] Creatinine [Moles/vo lume] in Serum or Plasma [facility] Creatinine [Moles/vo lume] in Serum or Plasma [facility] Creatinine [Moles/vo lume] in Serum or Plasma [facility] Creatinine [Moles/vo lume] in Serum or Plasma [facility] Creatinine [Moles/vo lume] in Serum or Plasma [facility] Glucose [Mass/volume ] in Serum or Plasma [facility] Glucose [Mass/volume ] in Serum or Plasma [facility] Glucose [Mass/volume ] in Serum or Plasma [facility] Glucose [Mass/volume ] in Serum or Plasma [facility] Glucose [Mass/volume ] in Serum or Plasma [facility] Glucose [Mass/volume ] in Serum or Plasma [facility] Hematocrit [Volume F raction] of Blood [facility] Hematocrit [Volume F raction] of Blood [facility] Hematocrit [Volume F raction] of Blood [facility] Hematocrit [Volume F raction] of Blood [facility] Hematocrit [Volume F raction] of Blood [facility] Hematocrit [Volume F raction] of Blood [facility] Hemoglobin [Mass/vol ume] in Blood [facility] Hemoglobin [Mass/vol ume] in Blood [facility] Hemoglobin [Mass/vol ume] in Blood [facility] Hemoglobin [Mass/vol ume] in Blood [facility] Hemoglobin [Mass/vol ume] in Blood [facility] Hemoglobin [Mass/vol ume] in Blood [facility] Leukocytes [#/volume ] in Blood [facility] Leukocytes [#/volume ] in Blood [facility] Leukocytes [#/volume ] in Blood [facility] Leukocytes [#/volume ] in Blood [facility] Leukocytes [#/volume ] in Blood [facility] Leukocytes [#/volume ] in Blood [facility] Magnesium [Mass/volu me] in Serum or Plasma [facility] Mean corpuscular hem oglobin concentration determination [facility] Mean corpuscular hem oglobin concentration determination [facility] Mean corpuscular hem oglobin concentration determination [facility] Mean corpuscular hem oglobin concentration determination [facility] Mean corpuscular hem oglobin concentration determination [facility] Mean corpuscular hem oglobin concentration determination [facility] Mean corpuscular hem oglobin determination [facility] Mean corpuscular hem oglobin determination [facility] Mean corpuscular hem oglobin determination [facility] Mean corpuscular hem oglobin determination [facility] Mean corpuscular hem oglobin determination [facility] Mean corpuscular hem oglobin determination [facility] Measurement of renal function [facility] Measurement of renal function [facility] Measurement of renal function [facility] Measurement of renal function [facility] Measurement of renal function [facility] Measurement of renal function [facility] Neutrophil count [facility] Neutrophil count [facility] Neutrophil count [facility] Neutrophil count [facility] Neutrophil count [facility] Neutrophil count [facility] Neutrophil percent differential count [facility] Neutrophil percent differential count [facility] Neutrophil percent differential count [facility] Neutrophil percent differential count [facility] Neutrophil percent differential count [facility] Neutrophil percent differential count [facility] Patient Education [facility] Work Phone: Patient referral [facility] Work Phone: Platelets [#/volume] in Blood [facility] Platelets [#/volume] in Blood [facility] Platelets [#/volume] in Blood [facility] Platelets [#/volume] in Blood [facility] Platelets [#/volume] in Blood [facility] Platelets [#/volume] in Blood [facility] Potassium [Moles/vol ume] in Serum or Plasma [facility] Potassium [Moles/vol ume] in Serum or Plasma [facility] Potassium [Moles/vol ume] in Serum or Plasma [facility] Potassium [Moles/vol ume] in Serum or Plasma [facility] Potassium [Moles/vol ume] in Serum or Plasma [facility] Potassium [Moles/vol ume] in Serum or Plasma [facility] Red blood cell count [facility] Red blood cell count [facility] Red blood cell count [facility] Red blood cell count [facility] Red blood cell count [facility] Red blood cell count [facility] Red cell distributio n width determination [facility] Red cell distributio n width determination [facility] Red cell distributio n width determination [facility] Red cell distributio n width determination [facility] Red cell distributio n width determination [facility] Red cell distributio n width determination [facility] Sodium [Moles/volume ] in Serum or Plasma [facility] Sodium [Moles/volume ] in Serum or Plasma [facility] Sodium [Moles/volume ] in Serum or Plasma [facility] Sodium [Moles/volume ] in Serum or Plasma [facility] Sodium [Moles/volume ] in Serum or Plasma [facility] Sodium [Moles/volume ] in Serum or Plasma [facility] Total protein measurement [facility] Urate [Mass/volume] in Serum or Plasma [facility] Urea nitrogen [Mass/ volume] in Serum or Plasma [facility] Urea nitrogen [Mass/ volume] in Serum or Plasma [facility] Urea nitrogen [Mass/ volume] in Serum or Plasma [facility] Urea nitrogen [Mass/ volume] in Serum or Plasma [facility] Urea nitrogen [Mass/ volume] in Serum or Plasma [facility] Urea nitrogen [Mass/ volume] in Serum or Plasma [facility] Immunizations Immunization Date Immunization Notes Care Provider [facility] 07-03-2022 Covmehdi Stewart Bivalen t Booster Dr. Nancy Ewing Work Phone: [facility] 06-06-2021 Covid (Pfizer) Dr. Nancy Ewing Work Phone: [facility] 08-16-2020 Covid (Pfizer) Dr. Nancy Ewing Work Phone: [facility] 07-26-2020 Covid (Pfizer) Dr. Nancy Ewing Work Phone: [facility] 07-20-2012 pneumococcal conjuga te vaccine, [address] Nancy Ewing Work Phone: [facility] 07-20-2001 pneumococcal vaccine , unspecified formulation Dr. Nancy Ewing Work Phone: [facility] Payers Date Payer Category Payer Medicaid [id number] 2024 Self-pay [id number] 2015 Private Health Insurance [id number] 2001 Medicare MEDICARE PART A B [id number] Unknown AARP MCR ADV [id number] Unknown [id number] ..[id number] Unknown [id number] Unknown [id number] 2.0.1.843149.3.579.2.462 Unknown [id number] 2.0.1.779275.3.579.2.462 Unknown [id number] 2..1.084579.3.579.2.462 Unknown [id number] 2.16.840.1.672049.3.579.2.462 Unknown [id number] 2.16.840.1.562642.3.579.2.462 Unknown [id number] 2.16.840.1.763031.3.579.2.462 Unknown [id number] 2.16.840.1.126902.3.579.2.462 Unknown [id number] 2.840.1.659866.3.579.2.462 Unknown [id number] 2.840.1.919521.3.579.2.462 Unknown [id number] 2.840.1.060121.3.579.2.462 Unknown [id number] 2.840.1.996514.3.579.2.462 Unknown [id number] 2.840.1.396611.3.579.2.462 Unknown [id number] 2.840.1.478621.3.579.2.462 Unknown [id number] 2.840.1.674010.3.579.2.462 Unknown [id number] 2.840.1.984580.3.579.2.462 Unknown [id number] 2.840.1.629572.3.579.2.462 Unknown [id number] 2.840.1.647311.3.579.2.462 Unknown [id number] 2.840.1.692551.3.579.2.462 Unknown [id number] 2.840.1.360623.3.579.2.462 Unknown [id number] 2.840.1.527983.3.579.2.462 Unknown [id number] 2.16840.1.660512.3.579.2.462 Unknown [id number] 2.840.1.230675.3.579.2.462 Unknown [id number] 2.16.840.1.563660.3.579.2.462 Unknown [id number] 2.16.840.1.217221.3.579.2.462 Unknown [id number] 2.16.840.1.119157.3.579.2.462 Unknown [id number] 2.16.840.1.405715.3.579.2.462 Social History Date Type Detail Facility Start: 11-11-2022 End: 07-25-2023 Tobacco smoking status NHIS Unknown if ever smoked [facility] Start: 11-11-2022 Rare [facility] Start: 11-11-2022 None [facility] Start: 11-11-2022 Homeless [facility] Start: 11-11-2022 Non-smoker [facility] Start: 1935 Sex Assigned At Female [facility] Start: 07-25-2023 End: 11-03-2024 Tobacco smoking status NHIS Never smoked tobacco (finding) [facility] Start: 10-19-2024 End: 11-08-2024 Sex Female (finding) [facility] Goals Date Patient Goal Desired Activity /State Functional Status Date Assessment Result Facility 11-29-2022 Functional status Ambulates [facility] Work Phone: 11-28-2022 Functional status Ambulates [facility] Work Phone: 11-13-2022 Functional status 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 [facility] Work Phone: Mental Status Date Assessment Result Facility 07-25-2023 Cognitive function Voice/Name [facility] Work Phone: 11-29-2022 Cognitive function Voice/Name [facility] Work Phone: 11-27-2022 Cognitive function Voice/Name [facility] Work Phone: 11-26-2022 Cognitive function Appropriate;Cooperativ e [facility] Work Phone: 11-13-2022 Cognitive function Voice/Name [facility] Work Phone: Clinical Notes 11-12-2022 to 11-04-2024 Note Date & Type Note Facility 11-04-2024 Discharge summary Note Date/Time November 04, 2024 12:36am [facility] Medical Records Department [address] [place] [address] Emergency Department Summary 11/03/24 MR#: [id number] Acct: [id number] Name: MAXIME AMARAL Rep #:[id number] : 1935 89 From: Alirio Patel PCP: Dr. Pete Payne MD Status:R EG ER Location: ED HPI HPI - Fall History of Present Illness Chief Complaint: Fall Informant: patient and family Narrative Narrative: Patient brought in by EMS from [facility] witnessed fall head injury. Patient history of dementia ambulatory per son. Mostly wheelchair, can weight-bear transfer. From paperwork gaited bowel with walking. Reports she did walk with a walker minimally a week ago. Reported getting off the commode she turneddown hitting her head on a radiator. No anticoagulants. She is DNR CC as of 2022 from paperwork. She has baseline per son. [facility] Medical History Dry eye syndrome of [...] clinician: N/A This note was generated with [employer] software. It may contain incorrectwords, spelling, and punctuation that were not noted in checking the note beforesigning. Radiography Diagnostic Testing: Clinical Impression(s) from Imaging Studies Shoulder X-Ray 11/03/24 21:48 IMPRESSION: NO ACUTE FRACTURE OR DISLOCATION. Reading [facility] 11/03/24 22:10 IMPRESSION: CHRONIC CHANGES. NO ACUTE FINDINGS. Reading Location: [facility] Cervical Spine CT 11/03/24 22:10 IMPRESSION: NO ACUTE CERVICAL FRACTURE. DEGENERATIVE CHANGES. No acute fracture or subluxation. Reading Location: [facility] Facial/Sinus 11/03/24 22:10 IMPRESSION: Small soft tissue laceration along the right supraorbital region. No acute fracture. Reading Location: [facility] Discharge Plan Triage Chief Complaint: Fall [...] in 5 to 7 days. Print Language: Turkmen Disposition Disposition: Home, Self Care What to do if you have Problems For any increased pain, shortness of breath, bleeding, nausea or vomiting, chestpain, or any unexpected problems, contact your Primary Care Provider. Call [facility] ([phone]) or report to the closest Emergency Room. Call 911 if necessary. 11/04/24 0036 <Electronically signed by Alirio Patel> Cosigner Signature (if applicable): CC: Dr. Pete Payne MD ~ Signed [facility] Work Phone: 1(589) 115-907304-18-2025 Discharge summary [facility] Medical Records Department [address] [place] [address] Emergency Department Summary 11/03/24 MR#: [id number] Acct: [id number] Name: MAXIME AMARAL Rep #:[id number] : 1935 89 From: Alirio Patel PCP: Dr. Pete Payne MD Status:R EG ER Location: ED HPI HPI - Fall History of Present Illness Chief Complaint: Fall Informant: patient and family Narrative Narrative: Patient brought in by EMS from [facility] witnessed fall head injury. Patient history of dementia ambulatory per son. Mostly wheelchair, can weight- bear transfer. From paperwork gaited bowel withwalking. Reports she did walk with a walker minimally a week ago. Reported getting off the commode she turneddown hitting her head on a radiator. No anticoagulants. She is DNR CC as of 2022 from paperwork. She has baseline per son. [facility] Medical History Dry eye syndrome of [...] clinician: N/A This note was generated with [employer] software. It may contain incorrectwords, spelling, and punctuation that were not noted in checking the note beforesigning. Radiography Diagnostic Testing: Clinical Impression(s) from Imaging Studies Shoulder X-Ray 11/03/24 21:48 IMPRESSION: NO ACUTE FRACTURE OR DISLOCATION. Reading Location: [facility] Brain CT 11/03/24 22:10 IMPRESSION: CHRONIC CHANGES. NO ACUTE FINDINGS. Reading Location: [facility] Cervical Spine CT 11/03/24 22:10 IMPRESSION: NO ACUTE CERVICAL FRACTURE. DEGENERATIVE CHANGES. No acute fracture or subluxation. Reading Location: [facility] Facial/Sinus 11/03/24 22:10 IMPRESSION: Small soft tissue laceration along the right supraorbital region. No acute fracture. Reading Location: [facility] Discharge Plan Triage Chief Complaint: Fall [...] in 5 to 7 days. Print Language: Turkmen Disposition Disposition: Home, Self Care What to do if you have Problems For any increased pain, shortness of breath, bleeding, nausea or vomiting, chestpain, or any unexpected problems, contact your Primary Care Provider. Call [facility] ([phone]) or report tothe closest Emergency Room. Call 911 if necessary. 11/04/24 0036 Cosigner Signature (if applicable): CC: Dr. Pete Payne MD ~ Signed [facility]04-17-2025 Radiology Diagnostic study note [facility] Imaging Services [address] [place] [address] [id number] Spine Cervical without Contras MR#: [id number] Acct: [id number] Name: MAXIME AMARAL Rep #: [id number] : 1935 F 89 From: Steve Sotelo DO PCP: Dr. Pete Payne MD Status: R ER Study:Spine Cervical without Contras Date of Exam: 11/03/24 Exam# [id number] Ordering Dr: Alirio Edward DO PROCEDURE: SPINE [...] No acute fracture or subluxation. Reading Location: [facility] CC: Dr. Pete Payne MD; Dr. Alirio Edward DO ~ Tiler'S Assistant: Signed [facility]04-17-2025 Radiology Diagnostic study note [facility] Imaging Services [address] [place], [place] [id number] Sinus/Facial Bone MR#: [id number] Acct: [id number] Name: MAXIME AMARAL Rep #: [id number] : 1935 F 89 From: Steve Sotelo DO PCP: Dr. Pete Payne MD Status: R ER Study:Sinus/Facial Bone Date of Exam: Exam# [id number] Ordering Dr: Alirio Edward DO PROCEDURE: SINUS/FACIAL [...] supraorbital region. No acute fracture. Reading Location: [facility] CC: Dr. Pete Payne MD; Dr. Alirio Edward DO ~ Tiler'S Assistant: Signed [facility]04-17-2025 Radiology Diagnostic study note [facility] Imaging Services [address] [place], [place] [id number] Brain/Head without Contrast MR#: [id number] Acct: [id number] Name: MAXIME AMARAL Rep #: [id number] : 1935 F 89 From: Steve Sotelo DO PCP: Dr. Pete Payne MD Status: R EG ER Study:Brain/Head without Contrast Date of Exa m: 11/03/24 Exam# [id number] Ordering Dr: Alirio Edward DO PROCEDURE: BRAIN/HEAD [...] CHRONIC CHANGES. NO ACUTE FINDINGS. Reading Location: [employer] CC: Dr. Pete Payne MD; Dr. Alirio Edward DO ~ Tiler'S Assistant: Signed [facility]04-17-2025 Radiology Diagnostic study note [facility] Imaging Services [address] [place] [address] Shoulder min 2 Views MR#: [id number] Acct: [id number] Name: MAXIME AMARAL Rep #: [id number] : 1935 F 89 From: Steve Sotelo DO PCP: Dr. Pete Payne MD Status: R EG ER Study:Shoulder min 2 Views Date of Exam: 11/03/24 Exam# [id number] Ordering Dr: Alirio Edward DO PROCEDURE: SHOULDER [...] Payne MD; Dr. Alirio Edward DO ~ Tiler'S Assistant: Signed [facility]01-06-2024 Discharge summary Author Jos Rush [facility] July 25, 2023 8:48am Note Date/Time July 25, 2023 8: 48am [facility] Medical Records Department [address] [place] [address] Emergency Department Summary 07/25/23 MR#: [id number] Acct: [id number] Name: MAXIME AMARAL Rep #:[id number] : 1935 87 From: Jos Rush DO [...] this time but otherwise denies any symptoms [facility] Medical History Alzheimer's disease, unspecified CKD [...] is otherwise [facility] Radiography Diagnostic Testing: Clinical Impression(s) from Imaging Studies Brain CT 07/25/23 04:58 IMPRESSION: No acute intracranial abnormality. Stable moderate chronic changes. Electronically Signed: Gabrielle Gallegos MD at 6:20 EST Reading Location ID and State: [facility] / [place] Tel , Service support , Cervical Spine CT 07/25/23 04:58 IMPRESSION: No acute posttraumatic abnormality. Multilevel degenerative changes. Electronically Signed: Gabrielle Gallegos MD at 6:35 EST Reading Location ID and State: [facility] / [place] Tel , Service support , Knee X-Ray [...] 6:40 EST Reading Location ID and State: [facility] / [place] Tel , Service support , Hip/Pelvis X-Ray 07/25/23 05:47 IMPRESSION: No acute pelvic or left hip fracture demonstrated. Electronically Signed: Gabrielle Gallegos MD at 6:45 EST Reading Location ID and State: [facility] / [place] Tel , Service support , Lower Extremity [...] and State: [facility] / [place] Tel , Service support , Left hip [...] your Primary Care Provider. Call [facility] ([phone]) or report to the closest Emergency Room. Call 911 if necessary. 07/25/23 0848 <Electronically signed by Jos Rush DO> Cosigner Signature (if applicable): CC: Dr. Pete Payne MD ~ Signed [facility] Work Phone: 1(382) 603-278907-04-2023 Discharge summary Author Jos Rush [facility] January 20, 2023 4:32am Note Date/Time January 20, 2023 3:43a [facility] Medical Records Department [address] [place] [address] Emergency Department Summary 01/20/23 MR#: [id number] Acct: [id number] Name: MAXIME AMARAL Rep #:[id number] : 1935 87 From: Jos Rush DO PCP: Dr. Pete Payne MD Status:R EG ER Location: ED HPI History of Present Illness Chief Complaint: Fall Informant: patient and EMS Limited: dementia Narrative Narrative: Patient is a 87-year-old female with past medical history of dementia who [facility] in their dementia unit. Nursing reports that patient was reportedly wandering this evening and had a fall. They found the patient awake and alert but with trauma to her head/face. They deny any blood thinners but states secondary to the fall and patient complaining of pain in her knees and shoulders she was sent in for evaluation [facility] Medical History Alzheimer's disease, unspecified Depression, [...] 3:16 EDT Reading Location ID and State: [facility] / [place] Tel , Service support [...] 3:35 EDT Reading Location ID and State: [facility] / [place] Tel , Service support [...] your Primary Care Provider. Call [facility] ([phone]) or report to the closest Emergency Room. Call 911 if necessary. 01/20/232 <Electronically signed by Jos Rush DO> Cosigner Signature (if applicable): CC: Dr. Pete Payne MD ~ Signed [facility] Work Phone: [phone]) 748-764805-10-[address] Crooks [facility] November 26, 2022 9:10pm Note Date/Time November 26, 2022 9:10p [facility] Medical Records Department [address] [place] [address] Transfer to [facility] Care MR#: [id number] Acct: [id number] Name: MAXIME AMARAL Rep #:[id number] : 1935 87 From: Sylvester Crooks MD PCP: ALANNAH BENITO Status:ADM IN Certification of patient admission REQUIRED AT TIME OF ADMISSION. I CERTIFY THAT POST-HOSPITAL ECF SERVICES ARE REQUIRED TO BE GIVEN ON AN IN-PATIENT BASIS BECAUSE OF THE ABOVE NAMED PATIENT'S NEED FOR SKILLED NURSING CARE ON A CONTINUING BASIS FOR THE CONDITION(S) FOR WHICH HE/SHE WAS RECEIVING IN-PATIENT HOSPITAL SERVICES PRIOR TO HIS/HER TRANSFER TO THE [facility]. 11/26/222109<Electronically signed by Sylvester Crooks MD> [...] for rehabilitation, strengthening, prior to discharge to [facility]. * Debility - PT/OT. * Cognition [...] - Bupropion XL 150mg daily, stable chronic prison use, GDR not recommended. * Alzheimer Disease [...] Fany Dao ; Tanisha Henriquez ; Britany Wihte NP Instructions Additional Instructions / Restrictions: Discharge to [facility] 11/29/2022, intermediate. Discharge Orders/Prescriptions Prescriptions: New donepezil [...] Crooks MD> Cosigner Signature (if applicable): CC: GREASE RACK WORKERNadiaC Magnolia Tafoya; GREASE RACK WORKER-C Tanisha Henriquez; GREASE RACK WORKER-C Britany White; Dr. Steven Dean, ; Dr. Fany Dao MD; ALANNAH BENITO ~ [facility] Work Phone: [phone]) 131-706505-10-[address] Crooks [facility] November 26, 2022 9:09pm Note Date/Time November 26, 2022 9:05p [facility] Medical Records Department [address] [place] [address] Discharge Summary 11/26/222103 MR#: [id number] Acct: [id number] Name: MAXIME AMARAL Rep #:[id number] : 1935 87 From: Sylvester Crooks MD PCP: ALANNAH BENITO Status:ADM IN Location: [place] [address] Providers Date of Admission: 11/13/22 Primary Care [...] for rehabilitation, strengthening, prior to discharge to [facility]. * Debility - PT/OT. * Cognition [...] - Bupropion XL 150mg daily, stable chronic intermediate frame tender use, GDR not recommended. * Alzheimer Disease [...] for rehabilitation, strengthening, prior to discharge to [facility]. Discharge to [facility] 11/29/2022, intermediate. Physical Exam Const alert General [...] Document 11/26/22 14:47 HUSEYIN (Rec: 11/26/22 14:47 [facility] [id number]) Nutrition Malnutrition Evidence of Malnutrition Exists Yes [...] and Uncontrolled pain Additional Instructions: Discharge to [facility] 11/29/2022, intermediate. Meaningful Use Info Meaningful Use Diagnoses (Choose all that apply): None applicable Discharge Plan Admission Admit Date/Time: 11/13/22 16:43 Primary Reason for Your Visit: Debility. Attending Provider: Sylvester Crooks Chi Primary Care Provider: ALANNAH BENITO Consulting Providers: Magnolia Tafoya ; Steven Dean ; Fany Dao ; Tanisha Henriquez ; Britany White GREASE RACK WORKER Instructions Additional Instructions / Restrictions: Discharge to [facility] 11/29/2022, intermediate. Discharge Orders/Prescriptions Prescriptions: New donepezil [...] Dr. Sylvester Crooks MD; ALANNAH BENITO~ Signed [facility] Work Phone: [phone]) 430-950805-03-2023 History and physical note Author Dr. Valeriy [facility] November 19, 2022 5:00pm Note Date/Time November 13, 2022 7:4 6pm [facility] Medical Records Department [address] [place] [address] History & Physical Exam 11/13/221939 MR#: [id number] Acct: [id number] Name: MAXIME AMARAL Rep #:[id number] : 1935 87 From: Sylvester Crooks MD PCP: ALANNAH BENITO Status:ADM IN Location: TCU [facility] HPI - General General Date of Admission: 11/13/22 Date of Service: 11/13/22 Chief Complaint: Here for rehabilitation. HPI Narrative 11/11/2022 MAXIME AMARAL, is a 87 Female who presents to [facility] Emergency Department with nausea, vomiting, diarrhea. [...] for rehabilitation, strengthening, prior to discharge to [facility]. [facility] Medical History Alzheimer's disease, unspecified [...] for rehabilitation, strengthening, prior to discharge to [facility]. * Debility - PT/OT. * Cognition [...] - Bupropion XL 150mg daily, stable chronic prison use, GDR not recommended. * Alzheimer Disease [...] Sylvester Crooks MD; ALANNAH BENITO ~* Signed [facility] Work Phone: 1(700) 595-306804-28-[address] Crooks [facility] November 14, 2022 7:27pm Note Date/Time November 14, 2022 3:5 3pm [facility] Medical Records Department [address] [place] [address] Progress Note - Pharmacy 11/14/22 1531 MR#: [id number] Acct: [id number] Name: MAXIME AMARAL Rep #:[id number] : 1935 87 From: Roselyn Garzon PCP: ALANNAH BENITO Status:ADM IN Location: TCU [facility]- TCU RX Drug Regimen Review Subjective: TCU [...] 60 Click Tube TOPICAL 2 click BID ZHORA Administration Protocol Donepezil HCl 10 mg 11/13/22 [...] by Sylvester Crooks MD> CC: ~ Signed [facility] Work Phone: [phone]) 179-874504-27-[address] Betancur [facility] November 13, 2022 2:06pm Note Date/Time November 13, 2022 1:5 6pm [facility] Medical Records Department [address] [place] [address] Transfer to [facility] MR#: [id number] Acct: [id number] Name: MAXIME AMARAL Rep #:[id number] : 1935 87 From: Bernice Betancur MD PCP: ALANNAH BENITO Status:ADM IN Certification of patient admission REQUIRED AT TIME OF ADMISSION. I CERTIFY THAT POST-HOSPITAL ECF SERVICES ARE REQUIRED TO BE GIVEN ON AN IN-PATIENT BASIS BECAUSE OF THE ABOVE NAMED PATIENT'S NEED FOR SKILLED NURSING CARE ON A CONTINUING BASIS FOR THE CONDITION(S) FOR WHICH HE/SHE WAS RECEIVING IN-PATIENT HOSPITAL SERVICES PRIOR TO HIS/HER TRANSFER TO THE [facility]. 11/13/22 1406<Electronically signed by Bernice Betancur [...] with hypothyroidism and dementia who presented to [facility] 11/11/2022 with a sodium of 127 [...] Dr. Ryder Brody MD; ALANNAH BENITO ~ [facility] Work Phone: [phone]) 425-205804-26-[address] Betancur [facility] November 12, 2022 4:53pm Note Date/Time November 12, 2022 7:0 0am [facility] Medical Records Department [address] [place] [address] Progress Note - Hospitalist 11/12/22 0659 MR#: [id number] Acct: [id number] Name: MAXIME AMARAL Rep #:[id number] : 1935 87 From: Bernice Betancur MD PCP: ALANNAH BENITO Status:ADM IN Location: [place] [address]-1 Reason for Visit Reason for Visit: Diagnoses [...] % (Auto) 59.4, Lymph % (Auto) 31.3, Pima% (Auto) 7.4, Eos % (Auto) 0.9, Baso [...] Clarity Clear, Urine pH 6.0, Ur Specific [place] 1.010, Urine Protein Negative, Urine Glucose (UA) [...] % (Auto) Cancelled, Lymph % (Auto) Cancelled, [place]ima % (Auto) Cancelled, Eos % (Auto) Cancelled, [...] Drop Cells Cancelled, Ovalocytes Cancelled, Stomatocytes Cancelled, [place] Bodies Cancelled, [place] Cells Cancelled, Bite Cells Cancelled, Crenated Cell [...] % (Auto) 63.6, Lymph % (Auto) 26.7, [place]ima % (Auto) 7.1, Eos % (Auto) 1.4, [...] 20:31 EDT Reading Location ID and State: [facility] / [place] , Service support , Physical Exam Narrative [...] Lovenox ordered. Charges/Coding Visit Charges Inpatient E&M: 48671 Subs Hosp L2 11/12/22 0235 <Electronically signed by Bernice Betancur MD> Cosigner Signature (if applicable): CC: ~ Signed [facility] Work Phone: [phone]) 134-924304-26-[address] Ewing [facility] November 11, 2022 11:41pm Note Date/Time November 11, 2022 5:3 3pm [facility] Medical Records Department [address] [place] [address] Emergency Department Summary 11/11/22 MR#: [id number] Acct: [id number] Name: MAXIME AMARAL Rep #:[id number] : 1935 87 From: Nancy Ewing MD PCP: ALANNAH BENITO Status:ADM IN [place] [facility] [id number] HPI History of Present Illness Chief Complaint: [...] body pain. She denies fever or cough. [facility] Medical History Alzheimer's disease, unspecified Depression, [...] Medical decision making narrative: Patient placed on lacquer sizer. EKG obtained to evaluate for cardiac arrhythmia/ischemia. [...] % (Auto) 59.4 Lymph % (Auto) 31.3 Pima % (Auto) 7.4 Eos % (Auto) 0.9 [...] Color Urine Clarity Urine pH Ur Specific [place] Urine Protein Urine Glucose (UA) Urine Ketones Urine Occult Blood Urine Nitrite Urine Bilirubin Urine Urobilinogen Ur Leukocyte Esterase Urine RBC Urine WBC Ur Squamous Epith Cells Urine Bacteria Urine Mucus 11/11/22 19:47 WBC RBC Hgb Hct MCV MCH MCHC RDW Std Deviation RDW Coeff of Kristal Plt Count MPV Immature Gran % (Auto) Neut % (Auto) Lymph % (Auto) Pima % (Auto) Eos % (Auto) Baso % [...] Clarity Clear Urine pH 6.0 Ur Specific [place] 1.010 Urine Protein Negative Urine Glucose (UA) [...] [Non-Staff] - Disposition Disposition: Acute Care Hospital [facility] What to do if you have Problems For any increased pain, shortness of breath, bleeding, nausea or vomiting, chestpain, or any unexpected problems, contact your Primary Care Provider. Call [facility] ([phone]) or report to the closest Emergency Room. Call 911 if necessary. 11/11/22 1304 <Electronically signed by Nancy Ewing MD> Cosigner Signature (if applicable): CC: ALANNAH THONG ~ Signed [facility] Work Phone: [phone]) 874-231004-26-2023 History and physical note Author Dr. Brody [facility] November 11, 2022 10:26pm Note Date/Time November 11, 2022 9:3 3pm [facility] Medical Records Department [address] [place] [address] H&P Exam - Hospitalist 11/11/222132 MR#: [id number] Acct: [id number] Name: MAXIME AMARAL Rep #:[id number] : 1935 87 From: Ryder Brody MD PCP: ALANNAH BENITO Status:ADM IN Location: [facility] [id number] HPI - General General Date of Admission: [...] the emergency department patient could not urinate. [facility] Medical History Alzheimer's disease, unspecified [...] % (Auto) 59.4, Lymph % (Auto) 31.3, [place] % (Auto) 7.4, Eos % (Auto) 0.9, [...] Clarity Clear, Urine pH 6.0, Ur Specific [place] 1.010, Urine Protein Negative, Urine Glucose (UA) [...] Lovenox ordered. Charges/Coding Visit Charges Inpatient E&M: 22025 Init Hosp 11/11/222225 <Electronically signed by Ryder Brody MD> Cosigner Signature (if applicable): CC: Dr. Ryder Brody MD; ALANNAH BENITO~ Signed [facility] Work Phone: Evaluation note* Diagnosis Onset Date Resolution Status Declining functional status acute Hypokalemia acute Hyponatremia acute Weakness acute Hypertension chronic [facility] Work Phone: Evaluation note* Diagnosis Onset Date Resolution Status Declining functional status acute Hyponatremia acute Hypertension chronic Alzheimer disease acute Debility acute Dehydration acute Depression acute Diabetes mellitus acute Hyperlipidemia acute Hyponatremia acute Hypothyroidism acute Hypertension chronic [facility] Work Phone: Evaluation note* Diagnosis Onset Date Resolution Status Declining functional status acute Hyponatremia acute Hypertension chronic Alzheimer disease acute Debility acute Depression acute Diabetes mellitus acute Hyperlipidemia acute Hypothyroidism acute Hypertension chronic Dehydration resolved Hyponatremia resolved [facility] Work Phone: Evaluation noteNo assessment information available [facility] Work Phone: History and physical note [facility] November 11, 2022 10:26pm Note Date/Time November 11, 2022 9:3 3pm [facility] Medical Records Department [address] [place] [address] H&P Exam - Hospitalist 11/11/222132 MR#: [id number] Acct: [id number] Name: MAXIME AMARAL Rep #:[id number] : 1935 87 From: Ryder Brody MD PCP: ALANNAH BENITO Status:ADM IN [place] [facility] [id number] HPI - General General Date of Admission: [...] the emergency department patient could not urinate. [facility] Medical History Alzheimer's disease, unspecified [...] % (Auto) 59.4, Lymph % (Auto) 31.3, [place]ima % (Auto) 7.4, Eos % (Auto) 0.9, [...] Clarity Clear, Urine pH 6.0, Ur Specific [place] 1.010, Urine Protein Negative, Urine Glucose (UA) [...] Lovenox ordered. Charges/Coding Visit Charges Inpatient E&M: 07126 Init Hosp L3 11/11/222225 <Electronically signed by Ryder Brody MD> Cosigner Signature (if applicable): CC: Dr. Ryder Brody MD; ALANNAH BENITO~ Signed [facility] Work Phone: Hospital Discharge instructions Additional Instructions CT head face and neck negative. Right shoulder x-ray negative. 7 sutures placed. Have removed in 5 to 7 days.[facility] Work Phone: Reason for referral (narrative)No reason for referral information availableWBellevue Hospital Work Phone: Chief Complaint and Reason [...] Complaint MONTHLY EXAM UNWITNESSED FALL MONTHLY EXAM SKILLED NURSING LAB WORK MONTHLY EXAM NURISNG HOME LABWORK Chief Complaint MONTHLY EXAM MONTHLY EXAM MONTHLY EXAM FALL Chief Complaint MONTHLY EXAM MONTHLY EXAM FALL LABWORK Chief Complaint Admit Date NEW CONCERN June 21, 2024 5 :08pm SKILLED NURSING LAB WORK July 11 5:00am SKILLED NURSING LAB WORK August 23, 2024 5:00am MONTHLY EXAM September 01, 2024 11:29am LABWORK October 03, 2024 5:0 0am Chief Complaint Admit Date SKILLED NURSING LAB WORK July 11 5:00am SKILLED NURSING LAB WORK August 23, 2024 5:00am MONTHLY EXAM September 01, 2024 11:29am MONTHLY EXAM September 20, 2024 3:13 pm LABWORK October 03, 2024 5:0 0am SKILLED NURSING LAB WORK October 06, 2024 5 :00am Chief Complaint Admit Date SKILLED NURSING LAB WORK July 11 5:00am SKILLED NURSING LAB WORK August 23, 2024 5:00am MONTHLY EXAM September 01, 2024 11:29am MONTHLY EXAM September 20, 2024 3:13 pm LABWORK October 03, 2024 5:0 0am SKILLED NURSING LAB WORK October 06, 2024 5 :00am LABWORK October 10, 2024 5:0 0am Chief Complaint Admit Date SKILLED NURSING LAB WORK July 11 5:00am SKILLED NURSING LAB WORK August 23, 2024 5:00am MONTHLY EXAM September 01, 2024 11:29am MONTHLY EXAM September 20, 2024 3:13 pm LABWORK October 03, 2024 5:0 0am SKILLED NURSING LAB WORK October 06, 2024 5 :00am LABWORK October 10, 2024 5:0 0am FALL, LACERATION November 03, 2024 9:0 6pm Chief Complaint Admit Date SKILLED NURSING LAB WORK July 11 5:00am SKILLED NURSING LAB WORK August 23, 2024 5:00am MONTHLY EXAM September 01, 2024 11:29am MONTHLY EXAM September 20, 2024 3:13 pm LABWORK October 03, 2024 5:0 0am SKILLED NURSING LAB WORK October 06, 2024 5 :00am LABWORK October 10, 2024 5:0 0am SKILLED NURSING LAB WORK October 17, 2024 5 :00am FALL, LACERATION November 03, 2024 9:0 6pm Chief Complaint Admit Date MONTHLY EXAM September 01, 2024 11:29am MONTHLY EXAM September 20, 2024 3:13 pm LABWORK October 03, 2024 5:0 0am SKILLED NURSING LAB WORK October 06, 2024 5 :00am LABWORK October 10, 2024 5:0 0am SKILLED NURSING LAB WORK October 17, 2024 5 :00am MONTHLY EXAM October 21, 2024 1:47 pm FALL, LACERATION November 03, 2024 9:0 6pm SKILLED NURSING LAB WORK November 14, 2024 4 :00am SKILLED NURSING LAB WORK November 22, 2024 5:00 am SKILLED NURSING LAB WORK December 13, 2024 5:0 0am Chief Complaint Admit Date SKILLED NURSING LAB WORK August 23, 2024 5:00am MONTHLY EXAM September 01, 2024 11:29am MONTHLY EXAM September 20, 2024 3:13 pm LABWORK October 03, 2024 5:0 0am SKILLED NURSING LAB WORK October 06, 2024 5 :00am LABWORK October 10, 2024 5:0 0am SKILLED NURSING LAB WORK October 17, 2024 5 :00am MONTHLY EXAM October 21, 2024 1:47 pm FALL, LACERATION November 03, 2024 9:0 6pm SKILLED NURSING LAB WORK November 14, 2024 4 :00am SKILLED NURSING LAB WORK November 22, 2024 5:00 am Chief Complaint Admit Date SKILLED NURSING LAB WORK October 06, 2024 5 :00am LABWORK October 10, 2024 5:0 0am SKILLED NURSING LAB WORK October 17, 2024 5 :00am MONTHLY EXAM October 21, 2024 1:47 pm FALL, LACERATION November 03, 2024 9:0 6pm SKILLED NURSING LAB WORK November 14, 2024 4 :00am SKILLED NURSING LAB WORK November 22, 2024 5:00 am MONTHLY EXAM December 06, 2024 4:15p m SKILLED NURSING LAB WORK December 13, 2024 5:0 0am SKILLED NURSING LAB WORK December 26, 2024 4:0 0am Chief Complaint Admit Date SKILLED NURSING LAB WORK October 06, 2024 5 :00am LABWORK October 10, 2024 5:0 0am SKILLED NURSING LAB WORK October 17, 2024 5 :00am MONTHLY EXAM October 21, 2024 1:47 pm FALL, LACERATION November 03, 2024 9:0 6pm SKILLED NURSING LAB WORK November 14, 2024 4 :00am SKILLED NURSING LAB WORK November 22, 2024 5:00 am MONTHLY EXAM December 06, 2024 4:15p m SKILLED NURSING LAB WORK December 13, 2024 5:0 0am SKILLED NURSING LAB WORK December 26, 2024 4:0 0am MONTHLY EXAM January 03, 2025 6:30 pm Chief Complaint Admit Date FALL, LACERATION November 03, 2024 9:0 6pm SKILLED NURSING LAB WORK November 14, 2024 4 :00am SKILLED NURSING LAB WORK November 22, 2024 5:00 am MONTHLY EXAM December 06, 2024 4:15p m SKILLED NURSING LAB WORK December 13, 2024 5:0 0am SKILLED NURSING LAB WORK December 26, 2024 4:0 0am MONTHLY EXAM January 03, 2025 6:30 pm SKILLED NURSING LAB WORK January 13, 2025 5: 00am Monthly Exam January 17, 2025 5:25p m LABWORK February 06, 2025 5:00 am Advance Directives No Advanced Directives Records Found Advance Directive Response Recorded Date/ Time Name of Medical Power of Frame Pulley Mortising Machine Operator ? November 11, 2022 4:49pm Living Will Yes November 11, 2022 4:49pm Power of Frame Pulley Mortising Machine Operator Yes November 11 4:49pm Advance Directive Response Recorded Date/ Time Name of Medical Power of Frame Pulley Mortising Machine Operator Matilda Pritchett November 11, 2022 10:59pm Living Will Yes November 11, 2022 10:59pm Power of Frame Pulley Mortising Machine Operator Yes November 11 10:59pm Advance Directive Response Recorded Date/ Time Name of Medical Power of Frame Pulley Mortising Machine Operator Matilda Pritchett November 11, 2022 10:59pm Name of Medical Power of Frame Pulley Mortising Machine Operator christine Pritchett November 14, 2022 10:44am Living Will Yes November 14, 2022 10:44am Power of Frame Pulley Mortising Machine Operator Yes November 14 10:44am Advance Directive Response Recorded Date/ Time Living Will Yes November 14, 2022 10:44am Power of Frame Pulley Mortising Machine Operator Yes November 14 10:44am Advance Directive Response Recorded Date/ Time Name of Medical Power of Frame Pulley Mortising Machine Operator NYA MORRIS July 25, 2023 4:49am Living Will Yes July 25 4:49am Power of Frame Pulley Mortising Machine Operator Yes July 25 4:49am Advance Directive Response Recorded Date/ Time Living Will Yes November 03, 2024 9:16pm Do you have a Healthcare Power of Frame Pulley Mortising Machine Operator? Yes November 03, 2024 9:16pm Name of Medical Power of Frame Pulley Mortising Machine Operator Daniel Amaral November 03, 2024 9:16pm Summary [...] 2024 End: October 21, 2024 Poppy Mccracken GREASE RACK WORKER, GREASE RACK WORKER-C Attending Provider Active Start: October 21, 2024 [...] Dr. Mariano Dao MD Family Provider Active [facility] Primary Care Provider Active Team Status: Active Member Role Status Dates Dr. Nancy Ewing MD Emergency Provider Active ALANNAH, [facility] Primary Care Provider Active Dr. Ryder Brody MD Admit Provider, Attending Provider, Other Provider Active Team Status: Active Member Role Status Dates Dr. Nancy Ewing MD Emergency Provider Active ALANNAH, [facility] Primary Care Provider Active Dr. Ryder Brody MD Admit Provider, Attending Pro vider Active Team Status: Active Member Role Status Dates Dr. Nancy Ewing MD Emergency Provider Active ALANNAH [facility] Primary Care Provider Active Dr. Ryder Brody MD Admit Provider, Other Provide r Active Dr. Bernice Betancur MD Attending Provider, Other Provid er Active Team Status: Inactive Member Role Status Dates Dr. Nancy Ewing MD Emergency Provider Active ALANNAH, [facility] Primary Care Provider Active Dr. Ryder Brody MD Admit Provider, Other Provide r Active Dr. Bernice Betancur MD Attending Provider Active Team Status: Active Member Role Status ALANNAH [facility] Primary Care Provider Active Dr. Sylvester Crooks MD Admit Provider, Attending Provid er Active Magnolia Tafoya , GREASE RACK WORKER-C Other Provider Active Dr. Steven Dean DO Other Provider Active Dr. Fany Dao MD Other Provider Active Tanisha Henriquez GREASE RACK WORKER-C Other Provider Active Britany White NP, GREASE RACK WORKER-C Other Provider Active Team Status: Inactive Member Role Status ALANNAH, [facility] Primary Care Provider Active Dr. Sylvester Crooks MD Attending Provider, Referring Pr ovider Active Team Status: Inactive Member Role Status [facility] Provider Active Dr. Sylvester Crooks MD Admit Provider, Attending Provid er Active Magnolia Tafoya , GREASE RACK WORKER-C Other Provider Active Dr. Steven Dean DO Other Provider Active Dr. Fany Dao MD Other Provider Active Tanisha Henriquez GREASE RACK WORKER-C Other Provider Active Britany White NP, GREASE RACK WORKER-C Other Provider Active Team Status: Active Member Role Status Dates Dr. Mariano Dao MD Family Provider Active Dr. Pete Payne MD Primary Care Provider Active Team Status: Inactive Member Role Status Dates Out of [facility] Doctor Primary Care Provider Active Dr. Pete Payne MD Attending Provider Active Team Status: Inactive Member Role Status Dates Out of [facility] Doctor Primary Care Provider Active Popyp Mccracken GREASE RACK WORKER, GREASE RACK WORKER-C Attending Provider Active Team Status: Inactive Member Role Status Dates Out of [facility] Doctor Primary Care Provider Active [...] Payne MD Primary Care Provider Active Poppy Mccarcken GREASE RACK WORKER, GREASE RACK WORKER-C Attending Provider Active Team Status: Inactive Member [...] 2024 End: June 21, 2024 Poppy Mccracken GREASE RACK WORKER, GREASE RACK WORKER-C Attending Provider Active Start: June 21, 2024 [...] 2024 End: October 21, 2024 Poppy Mccracken [employer] WORKER, [employer] WORKER-C Attending Provider Active Start: October 21, 2024 [...] 2025 End: January 03, 2025 Poppy Mccracken [employer] WORKER, [employer] WORKER-C Attending Provider Active Start: January 03, 2025 End: January 03, 2025 Team Status: Active Member Role/Relationship Status Dates Dr. Pete Payne MD Primary Care Provider Active Start: January 13, 2025 Pete ROBERTS MD Attending Provider Active Start: January 13, 2025 Team Status: Inactive Member Role/Relationship Status Dates Dr. Ptee Payne [...] 2025 End: January 03, 2025 Poppy Mccracken [employer] WORKER, [employer] R[employer] WORKER-C Attending Provider Active Start: January 03, 2025 [...] section and content) DATE CREATED AUTHOR 03/03/2025 [facility] FOR RECORDS PERTAINING TO PATIENTS WHO ARE [...] BE BASED ON THE PRIMARY CLINICAL RECORDS. [employer] provides no warranty or guarantee of the accuracy or completeness of information in this document.
[2025-03-15 07:20] LABS: Hematocrit 35.1 % (37-47); Hemoglobin 11.5 g/dL (12.0-15.0); Immature Granulocytes Count 0.030 X10^3/uL (0.0-0.0); Mean Corp Hgb Conc 32.8 g/dL (32-36); Mean Corpuscular Volume 92.1 fL (81-99); Mean Platelet Vol. 10.0 fl (6.2-12.0); NRBC Flagged by Analyzer 0 % (0-5); Platelet Count 334 K/mm3 (150-450); RBC Distribution Width CV 13.5 % (11.6-14.6); RBC Distribution Width SD 45.3 fl (35.1-43.9); Red Blood Count 3.81 M/mm3 (4.2-5.4); White Blood Count 9.9 K/mm3 (4.4-11.0)
== END ==
LOC: OLS.WHLCAR 05:00
PROVIDERS: PCP Internal Medicine; Visit Provider Internal Medicine
DX: I12.9 Hypertensive chronic kidney disease with stage 1 through stage 4 chronic kidney disease, or unspecified chronic kidney disease (principal); N18.9 Chronic kidney disease, unspecified; D63.1 Anemia in chronic kidney disease
CPT/HCPCS: 36415; 85025

== ENCOUNTER → 2025-03-21 | Outpatient (REF) | payer MEDICARE, MEDICAID, SELFPAY ==
[2025-03-21 08:59] LABS: AST(SGOT) 18 U/L (<=31); Alanine Aminotransfer ALT/SGPT 8 U/L (<=34); Albumin, Serum 3.2 g/dL (3.4-4.8); Alkaline Phosphatase 54 U/L (35-104); Anion Gap 11 (5-15); BUN 19 mg/dL (4-19); BUN/Creat Ratio 21.3 RATIO (10-20); Calcium,Total 8.9 mg/dL (7.6-11.0); Carbon Dioxide 24.1 mmol/L (21.0-32.0); Chloride 104 mmol/L (98-108); Globulin 2.5 g/dL (2.2-4.2); Glucose 138 mg/dL (70-99); Potassium 4.2 mmol/L (3.3-5.1)
== END ==
LOC: OLS.WHLCAR 05:00
PROVIDERS: PCP Internal Medicine; Visit Provider Internal Medicine
DX: I12.9 Hypertensive chronic kidney disease with stage 1 through stage 4 chronic kidney disease, or unspecified chronic kidney disease (principal); N18.9 Chronic kidney disease, unspecified; G30.9 Alzheimer's disease, unspecified
CPT/HCPCS: 36415; 80053; 84443

== ENCOUNTER → 2025-04-30 | Outpatient (REF) | payer MEDICARE, MEDICAID, SELFPAY | LOC: OLS.WHLCAR 09:30 | PROVIDERS: PCP Internal Medicine | DX: R19.7 Diarrhea, unspecified (principal); I12.9 Hypertensive chronic kidney disease with stage 1 through stage 4 chronic kidney disease, or unspecified chronic kidney disease; N18.9 Chronic kidney disease, unspecified | CPT/HCPCS: 87493 ==

== ENCOUNTER → 2025-05-02 | Outpatient (REF) | payer MEDICARE, MEDICAID, SELFPAY | LOC: OLS.WHLCAR 04:18 | PROVIDERS: PCP Internal Medicine; Referring Provider Internal Medicine; Visit Provider Internal Medicine | DX: E03.9 Hypothyroidism, unspecified (principal) | CPT/HCPCS: 36415; 84443 ==

== ENCOUNTER → 2025-05-15 06:00 | Outpatient (REF) | payer MEDICARE, MEDICAID, SELFPAY ==
[2025-05-15 08:20] LABS: Hematocrit 36.2 % (37-47); Hemoglobin 12.0 g/dL (12.0-15.0); Immature Granulocytes Count 0.050 X10^3/uL (0.0-0.0); Mean Corp Hgb Conc 33.1 g/dL (32-36); Mean Corpuscular Volume 91.6 fL (81-99); Mean Platelet Vol. 9.9 fl (6.2-12.0); NRBC Flagged by Analyzer 0 % (0-5); Platelet Count 357 K/mm3 (150-450); RBC Distribution Width CV 13.2 % (11.6-14.6); RBC Distribution Width SD 44.3 fl (35.1-43.9); Red Blood Count 3.95 M/mm3 (4.2-5.4); White Blood Count 9.4 K/mm3 (4.4-11.0)
== END ==
LOC: OLS.WHLCAR 06:00
PROVIDERS: PCP Internal Medicine; Visit Provider Internal Medicine
DX: I12.9 Hypertensive chronic kidney disease with stage 1 through stage 4 chronic kidney disease, or unspecified chronic kidney disease (principal); N18.9 Chronic kidney disease, unspecified; D63.1 Anemia in chronic kidney disease
CPT/HCPCS: 36415; 85025

== ENCOUNTER → 2025-05-23 | Outpatient (REF) | payer MEDICARE, MEDICAID, SELFPAY ==
--- OUTSIDE RECORDS SUMMARY | 2025-05-23 04:00 | XMS RPT_ITS | CCD ---
Author Organization [facility] Care Team Providers Care Environmental Control Administrator Name Role Phone Dr. Nancy Ewing Emergency Provider [phone] ALANNAH BENITO Primary Care Provider Unavail able Dr. Ryder Brody Admit Provider Dr. Ryder Brody Attending Provider Dr. Ryder Brody Other Provider ALANNAH BENITO Primary Care Provider Dr. Bernice Betancur Attending Provider Dr. Bernice Betancur Other Provider [facility] Doctor, Out of Primary Care Provider Silvia Mccracken [employer] OFF[employer], [employer]-C Poppy Attending Provider Dr. Pete Dietz Attending Provider [phone] Dr. Pete Payne Primary Care Provider [phone] Dr. Pete Payne Attending Provider [phone] Kaykay [employer], [employer]-C Poppy Attending Provider Dr. Pete Dietz Primary Care Provider [phone] Dr. Pete Payne Attending Provider [phone] Kaykay [employer]ER, [employer]-C Poppy Attending Provider Dr. Pete Dietz Primary Care Provider [phone] Dr. Pete Payne Attending Provider [phone] Kaykay [employer], [employer]-C Poppy Attending Provider Elmer SAMUELS, Dr. Freeman Primary Care Provider [place] [employer]ER-C, Poppy Attending Provider Pete Payne MD Attending Provider UnavailMateo Cordova Attending Provider Elmer SAMUELS, Dr. Freeman Primary Care Provider Elmer SAMUELS, Dr. Freeman Attending Provider Cheyanne DRISCOLL, Dr. Amezquita Emergency Provider Elmer SAMUELS, Dr. Freeman Primary Care Provider Pete Payne MD Attending Provider Unavaila ble [place] [employer]ER-C, Poppy Attending Provider Cheyanne DRISCOLL, Dr. Amezquita Attending Provider Pete Panye MD Referring Provider Unavaildeisy Payne MD, Dr. Freeman Primary Care Provider Pete Payne MD Attending Provider Unavaildeisy Payne MD, Dr. Freeman Primary Care Provider Pete Payne MD Attending Provider Unavaildeisy Payne MD, Dr. Freeman Attending Provider [phone] Elmer SAMUELS, Dr. Freeman Primary Care Provider Pete Payne MD Attending Provider Unavaila ble Kaykay [employer] OFFICER-CPoppy Attending Provider Elmer SAMUELS, Dr. Freeman Primary Care Provider Pete Payne MD Attending Provider UnavailPete Gaytan MD Referring Provider Unavaila Mateo Romero Attending Provider Elmer SAMUELS, Dr. Freeman Primary Care Physician Pete Payne MD Attending Physician Unavail able [place] [employer] OFFICER-CPoppy Attending Physician Elmer SAMUELS, Dr. Freeman Attending Physician [phone] Mateo Cardoza Attending Physician [phone] Elmer SAMUELS, Dr. Freeman Primary Care Physician Elmer SAMUELS, Pete Attending Physician Unavail able [place] Attending Physician Pete Cha MD Referring Provider Unavaila ble Oleghe, Efewongbe Primary Care Unavailable Oleghe OLS, Efewongbe Referring Unavailabl e Oleghe OLS, Efewongbe Attending Unavailabl e Oleghe, Efewongbe Primary Care Unavailable Oleghe ARMANDO, Saturninoongbe Attending Unavailabl e Healthy [place] Attending Unavail able Oleghe, Efewongbe Primary Care Unavailable Oleghe, Efewongbe Primary Care Unavailable Oleghe OLS Efewongbe Attending Unavailabl e Oleghe, Efewongbe Primary Care Unavailable Oleghe Saturnino ROBERTSongbe Referring Unavailabl e Oleghe Nithin ROBERTSbe Attending Unavailabl e Oleghe, Efewongbe Primary Care Unavailable Oleghe OLSSaturninoongbe Attending Unavailabl e Oleghe, Efewongbe Attending Unavailable Oleghe, Efewongbe Primary Care Unavailable Mateo Cardoza Attending Unavailable Oleghe, Efewongbe Primary Care Unavailable Poppy Mccracken Attending Unavailable Oleghe, Efewongbe Primary Care Unavailable Oleghe, Efewongbe Attending Unavailable Oleghe, Efewongbe Primary Care Unavailable Oleghe, Efewongbe Primary Care Unavailable Oleghe Saturnino ROBERTSongbe Attending Unavailabl e Oleghe, Efewongbe Primary Care Unavailable Oleghe OLS, Efewongbe Attending Unavailabl e Oleghe, Efewongbe Primary Care Unavailable Oleghe OLS, Efewongbe Attending Unavailabl e Oleghe OLS, Efewongbe Referring Unavailabl e Alirio Edward Attending Unavailable Oleghe, [...] Oleghe, Efewongbe Primary Care Unavailable Poppy Mccracken Attending Unavailable Oleghe, Efewongbe Attending Unavailable Oleghe, Efewongbe Primary Care Unavailable TickPoppy fu Attending Unavailable Oleghe, Efewongbe Primary Care Unavailable Oleghe, Efewongbe Primary Care Unavailable Oleghe, Efewongbe Attending Unavailable Oleghe, Efewongbe Primary Care Unavailable Oleghe, Efewongbe Attending Unavailable Oleghe OLS, Efewongbe Attending Unavailabl e Oleghe, Efewongbe Primary Care Unavailable Mateo Cardoza Attending Unavailable Oleghe, Efewongbe Primary Care Unavailable Oleghe OLS, Efewongbe Attending Unavailabl e Oleghe, Efewongbe Primary Care Unavailable Allergies Allergy Classification Reported Allergen(s) Allergy Type Date of Onset Reaction(s) Facility (20 sources) Penicillins Propensity to adverse reactions 3 Diarrhea [facility] (1 source) Penicillins Drug allergy (disorder) 5 [facility] Repository Medications Current Medications Medication Drug Class(es) Dates Sig (Normalized) Sig (Original) acetaminophen 500 mg oral tablet (20 sources) Start: 11-26-2022 take 2 tablets by mouth every six hours as needed for pain Start: 11-26-2022 take 1000 mg by mout h every six hours as needed Acetaminophen Active 1000 MG PO EVERY 6 HOURS NEEDED 0 November 25, 2022 11:00pm atorvastatin 10 mg oral tablet (20 sources) HMG-CoA Reductase Inhibitor Start: 11-11-2022 take 1 tablet by mouth at bedtime 24 hr buPROPion hydrochloride 150 mg extended release oral tablet (20 sources) Aminoketone Start: 11-13-2022 End: 11-13-2022 take 1 tablet by mouth once daily cholecalciferol 1.25 mg oral tablet (20 sources) Vitamin D Start: 11-11-2022 Start: 11-11-2022 Cholecalcifero l (Vitamin D3) 1,250 [...] 2022 12:00am citalopram 10 mg oral tablet (16 sources) Serotonin Reuptake Inhibitor Start: 07-25-2023 take 1 tablet by mouth once daily donepezil hydrochloride 10 mg oral tablet (20 sources) Start: 11-26-2022 take 1 tablet by mouth at bedtime Start: 11-11-2022 End: 11-26-2022 Donepezil 10 mg tablet Disco ntinued 100 mg PO AT BEDTIME November 11, 2022 12:00am November 26, 2022 9:05pm MEMORY Start: 11-11-2022 End: 11-26-2022 take 100 mg by mouth at bedtime Donepezil Discontinued 100 MG PO AT BEDTIME November 10, 2022 11:00pm November 26, 2022 8:05pm Food Supplemt, Lactose-Reduc ed (Ensure Plus High Protein) 0.08 gram-1.5 kcal/mL liquid (20 sources) Start: 11-13-2022 Start: 11-13-2022 Food Supplemt, Lactose-Reduced (Ensure Plus [...] November 13, 2022 4:51pm levothyroxine sodium 0.025 m g oral tablet (20 sources) l-Thyroxine Start: 02-08-2017 take 1 tablet by daya th once daily metFORMIN hydrochloride 500 mg oral tablet (20 sources) Biguanide Start: 11-10-2013 take 1 tablet by daya th once daily mirtazapine 15 mg oral table t (20 sources) Start: 11-26-2022 take 7.5 mg by mouth at bedtime Start: 11-26-2022 take 7.5 mg by mouth at bedtim e Mirtazapine Active 7.5 MG PO AT BEDTIME 0 November 25, 2022 11:00pm propranolol hydrochloride 20 mg oral tablet (20 sources) beta-Adrenergic Nathanael Start: 11-10-2013 take 1 tablet by mouth once daily raloxifene hydrochloride 60 mg oral tablet (20 sources) Estrogen Agonist/Antagonist Start: 11-12-2022 take 1 tablet by mouth once daily sertraline 25 mg oral tablet (1 source) Serotonin Reuptake Inhibitor Start: 11-11-2022 take 25 mg by mouth every other day Sertraline Active 25 MG PO EVERY OTHER DAY November 11, 2022 12:00am Completed/Discontinued Medications Medication Drug Class(es) Dates Sig (Normalized) Sig (Original) Food Supplemt, Lactose-Reduced (Ensure Plus High Protein) 0.08 gram-1.5 kcal/mL Liquid (20 sources) Start: 11-13-2022 End: 11-13-2022 Food Supplemt, [...] Active Problems Problem Classification Problem Date Documented Da te Episodic/Chronic Deficiency and other anemia (1 source) Anemia in chronic kidney disease; Translations: [Anemia in chronic kidney disease] Onset: Chronic Delirium, dementia, and amnestic and other cognitive disorders (20 sources) Alzheimer's disease; Translations: [Alzheimer's disease, unspecified] Onset: 5 11-13-2022 Chronic Diabetes mellitus with complications (3 sources) Type 2 diabetes mellitus with diabetic chronic kidney disease; Translations: [Type 2 diabetes mellitus with diabetic nephropathy] Onset: Chronic Diabetes mellitus without complication (20 sources) Type 2 diabetes mellitus; Translations: [Type 2 diabetes mellitus without complications] 02-07-2017 Chronic Disorders of lipid metabolism (20 sources) Hyperlipidemia; Translations: [Hyperlipidemia, unspecified] 11-13-2022 Chronic E Codes: Fall (16 sources) Accidental fall ; Translations: [Unspecified fall, [...] disease, or unspecified chronic kidney disease] Onset: 5 Chronic Malaise and fatigue (20 sources) Decline [...] without current pathological fracture] 02-09-2017 Chronic Other gastrointestinal disorders (1 source) Diarrhea, unspecified; Translations: [Diarrhea, unspecified] Onset: 5 Episodic Other injuries and conditions due to external causes (20 sources) Closed injury of head; Translations: [Unspecified injury of head, initial encounter] 01-20-2023 Episodic Other injuries and conditions due to external causes (19 sources) Contusion of multiple sites; Translations: [Unspecified multiple injuries, initial encounter] 01-20-2023 Episodic Other non-traumatic joint disorders (16 sources) Knee joint effusion; Translations: [Effusion, unspecified knee] 07-25-2023 Episodic Superficial injury; contusion (20 sources) Hematoma of face; Translations: [Contusion of other part of head, initial encounter] 01-20-2023 Episodic Thyroid disorders (20 sources) Hypothyroidism; Translations: [Hypothyroidism, unspecified] Onset: 5 11-13-2022 Chronic Unclassified (2 sources) Dementia in other diseases classified elsewhere, mild, with mood disturbance; Translations: [Dementia in other diseases classified elsewhere, mild, with mood disturbance] Onset: 5 Past or Other Problems Problem Classification Problem Date Documented Da te Episodic/Chronic Hemorrhoids (1 source) Unspecified hemorrhoids; Translations: [Unspecified hemorrhoids] Onset: 10-25-2024 Episodic Open wounds of head; neck; and trunk (12 sources) Facial laceration ; Translations: [Laceration without foreign body of other part of head, initial encounter] Onset: 11-08-2024 11-04-2024 Episodic Results Test Name Value Interpretation Reference Range Facility Absolute lymphocyte countOrd ered By: Pete Payne on 05-15-2025 Lymphocytes Auto (Unsp spec) [#/Vol] 2.71 10*3/uL 0.83-4.51 [facility] Absolute neutrophil countOrd ered By: Pete Payne on 05-15-2025 Neutrophils (Bld) [#/Vol] 5.7 10*3/uL 2.0-7.7 [facility] Automated lymphocyte count a s percentage of total leukocytesOrdered By: Pete Payne on 05-15-2025 Lymphocytes/100 WBC Auto (Unsp spec) 28.9 % 19-41 [facility] Basophil percentageOrdered B y: Pete Payne on 05-15-2025 Basophils/100 WBC (Bld) 0.9 % 0-1 [facility] Eosinophil percentageOrdered By: Pete Payne on 05-15-2025 Eosinophils/100 WBC (Bld) 1.9 % 0-5 [facility] Erythrocyte distribution wid th ratioOrdered By: Pete Payne on 05-15-2025 Erythrocyte distribution width (RBC) [Ratio] 13.2 % 11.6-14.6 [facility] Erythrocyte distribution wid th standard deviationOrdered By: alexiscopensudarshan Payne on 05-15-2025 Erythrocyte distribution width (RBC) [Ratio] 44.3 fl High 35.1-43.9 [facility] Hematocrit Auto (Bld) [Volum e fraction]Ordered By: geena Payne on 05-15-2025 Hematocrit (Bld) [Volume fraction] 36.2 % Low 37-47 [facility] Hemoglobin measurementOrdere d By: Pete Payne on 05-15-2025 Hemoglobin (Bld) [Mass/Vol] 12.0 g/dL 12.0-15.0 [facility] Immature granulocytes/100 WB C Auto (Bld)Ordered By: Pete Payne on 05-15-2025 Immature granulocytes/100 WBC (Bld) 0.500 % 0.0-0.9 [facility] Comment on above: IG% - Immature Granu locytes (promyelocytes, myelocytes and metamyelocytes) > 1% indicates that a LEFT SHIFT is Present. MCV (mean corpuscular volume ) determinationOrdered By: Pete Payne on 05-15-2025 MCV (RBC) [Entitic vol] 91.6 fL 81-99 [facility] Mean corpuscular hemoglobin (MCH) determinationOrdered By: Pete Payne on 05-15-2025 MCH (RBC) [Entitic mass] 30.4 pg 27.0-32.0 [facility] Mean corpuscular hemoglobin concentration (MCHC) determinationOrdered By: Pete Payne on 05-15-2025 MCHC (RBC) [Mass/Vol] 33.1 g/dL 32-36 [facility] Mean platelet volume determi nationOrdered By: alexiscopensudarshan Payne on 05-15-2025 Platelet mean volume (Bld) [Entitic vol] 9.9 fL 6.2-12.0 [facility] Monocyte percentageOrdered B y: Celestealexiskeishasudarshan Pfeifferriteshyulia on 05-15-2025 Monocytes/100 WBC (Bld) 7.0 % 0-10 [facility] Neutrophil percentageOrdered By: Celestealexiskeishasudarshan Pfeifferriteshyulia on 05-15-2025 Neutrophils/100 WBC (Bld) 60.8 % 47-70 [facility] Nucleated red blood cell per centageOrdered By: Saturninokeishasudarshan Pfeifferriteshyulia on 05-15-2025 Nucleated RBC/100 WBC (Bld) [Ratio] 0 % 0-5 [facility] Platelet countOrdered By: Celeste terezasudarshan Payne on 05-15-2025 Platelets (Bld) [#/Vol] 357 10*3/uL 150-450 [facility] RBC Auto (Bld) [#/Vol]Ordere d By: Saturninokeishasudarshan Pfeifferriteshyulia on 05-15-2025 RBC (Bld) [#/Vol] 3.95 10*6/uL Low 4.2-5.4 [facility] White blood cell (WBC) count Ordered By: Pete Payne on 05-15-2025 WBC (Bld) [#/Vol] 9.4 10*3/uL 4.4-11.0 [facility] TSH DL <= 0.005 mIU/L QnOrde red By: Saturninokeishasudarshan Payne on 05-02-2025 TSH Qn 2.410 uIU/mL 0.300-4.200 [facility] Clostridium difficile detect ion by polymerase chain reactionOrdered By: [facility] on 04-30-2025 C. difficile DNA KISHORE+probe Ql (Unsp spec) [facility] Anion gap in Serum or Plasma Ordered By: Pete Payne on 03-21-2025 Anion gap [Moles/Vol] 11 mmol/L 5-15 [facility] BUN/creatinine ratioOrdered By: Pete Payne on 03-21-2025 Urea nitrogen/Creatinine [Mass ratio] 21.3 mg/mg High 10-20 [facility] Bilirubin, totalOrdered By: Pete Payne on 03-21-2025 Bilirubin [Mass/Vol] 0.59 mg/dL 0.00-1.30 [facility] Carbon dioxide, total [Moles /volume] in Central venous bloodOrdered By: Pete Payne on 03-21-2025 CO2 [Moles/Vol] 24.1 mmol/L 21.0-32.0 [facility] Chloride assayOrdered By: Celeste Payne on 03-21-2025 Chloride [Moles/Vol] 104 mmol/L 98-108 [facility] Glomerular filtration rate ( GFR) estimation/1.73 sq m using serum, plasma, or whole bOrdered By: Pete Payne on 03-21-2025 GFR/1.73 sq M.predicted among non-blacks MDRD (S/P/Bld) [Vol rate/Area] 64 mL/min/{1.73_m2} >60 [facility] Comment on above: mL/min/1.73m2 CKD-EP I Creatinine Equation (2020) Laboratory - Chemistry and C hemistry - challengeOrdered By: Pete Payne on 03-21-2025 AST [Catalytic activity/Vol] 18 U/L <32 [facility] Potassium measurement (mass/ volume)Ordered By: Pete Payne on 03-21-2025 Potassium (Unsp spec) [Mass/Vol] 4.2 mmol/L 3.3-5.1 [facility] Serum creatinine measurement (mass/volume)Ordered By: Pete Payne on 03-21-2025 Creatinine [Mass/Vol] 0.87 mg/dL 0.70-1.20 [facility] Serum globulin measurementOr dered By: Pete Payne on 03-21-2025 Globulin (S) [Mass/Vol] 2.5 g/dL 2.2-4.2 [facility] Serum glucose measurement (m ass/volume)Ordered By: Pete Payne on 03-21-2025 Glucose [Mass/Vol] 138 mg/dL High 70-99 [facility] Serum or plasma alanine castro otransferase (ALT) measurementOrdered By: Pete Payne on 03-21-2025 ALT [Catalytic activity/Vol] 8 U/L <35 [facility] Serum or plasma albumin karri urement (mass/volume)Ordered By: Pete Kentrellriteshyulia on 03-21-2025 Albumin [Mass/Vol] 3.2 g/dL Low 3.4-4.8 [facility] Serum or plasma albumin/glob ulin mass ratioOrdered By: Pete Kentrellriteshyulia on 03-21-2025 Albumin/Globulin [Mass ratio] 1.3 {ratio} 0.9-2.4 [facility] Serum or plasma alkaline corky sphatase measurementOrdered By: Celestealexiskeishasudarshan Pfeifferriteshyulia on 03-21-2025 ALP [Catalytic activity/Vol] 54 U/L 35-104 [facility] Serum or plasma calcium karri urement (mass/volume)Ordered By: Pete Kentrellriteshyulia on 03-21-2025 Calcium [Mass/Vol] 8.9 mg/dL 7.6-11.0 [facility] Serum or plasma urea nitroge n measurement (mass/volume)Ordered By: Celestealexisanne Kentrellriteshyulia on 03-21-2025 Urea nitrogen [Mass/Vol] 19 mg/dL 4-19 [facility] Sodium levelOrdered By: Saturnino rodríguez Kentrellriteshyulia on 03-21-2025 Sodium [Moles/Vol] 139 mmol/L 133-145 [facility] TSH DL <= 0.005 mIU/L QnOrde red By: Pete Kentrellsarthak on 03-21-2025 TSH Qn 3.520 uIU/mL 0.300-4.200 [facility] Total proteinOrdered By: Ramsey felix Kentrellriteshyulia on 03-21-2025 Protein [Mass/Vol] 5.8 g/dL Low 5.9-8.4 [facility] Absolute lymphocyte countOrd ered By: Pete Kentrellriteshyuila on 03-15-2025 Lymphocytes Auto (Unsp spec) [#/Vol] 2.86 10*3/uL 0.83-4.51 [facility] Absolute neutrophil countOrd ered By: Pete Kentrellriteshyulia on 03-15-2025 Neutrophils (Bld) [#/Vol] 6.0 10*3/uL 2.0-7.7 [facility] Automated lymphocyte count a s percentage of total leukocytesOrdered By: Nithinsudarshan Elmer on 03-15-2025 Lymphocytes/100 WBC Auto (Unsp spec) 28.8 % 19-41 [facility] Basophil percentageOrdered B y: Pete Payne on 03-15-2025 Basophils/100 WBC (Bld) 0.7 % 0-1 [facility] Eosinophil percentageOrdered By: [facility] Hospit[facility] Pfeifferyulia on 03-15-2025 Eosinophils/100 WBC (Bld) 2.9 % 0-5 [facility] Erythrocyte distribution wid th ratioOrdered By: [facility] Hospitalsudarshan Payne on 03-15-2025 Erythrocyte distribution width (RBC) [Ratio] 13.5 % 11.6-14.6 [facility] Erythrocyte distribution wid th standard deviationOrdered By: [facility] Hospitalsudarshan Payne on 03-15-2025 Erythrocyte distribution width (RBC) [Ratio] 45.3 fl High 35.1-43.9 [facility] Hematocrit Auto (Bld) [Volum e fraction]Ordered By: alexiscopensudarshan Kentrellriteshyulia on 03-15-2025 Hematocrit (Bld) [Volume fraction] 35.1 % Low 37-47 [facility] Hemoglobin measurementOrdere d By: alexiscopensudarshan Payne on 03-15-2025 Hemoglobin (Bld) [Mass/Vol] 11.5 g/dL Low 12.0-15.0 [facility] Immature granulocytes/100 WB C Auto (Bld)Ordered By: [facility] Pfeifferriteshyulia on 03-15-2025 Immature granulocytes/100 WBC (Bld) 0.300 % 0.0-0.9 [facility] Comment on above: IG% - Immature Granu locytes (promyelocytes, myelocytes and metamyelocytes) > 1% indicates that a LEFT SHIFT is Present. MCV (mean corpuscular volume ) determinationOrdered By: Celestegeena Pfeifferriteshyulia on 03-15-2025 MCV (RBC) [Entitic vol] 92.1 fL 81-99 [facility] Mean corpuscular hemoglobin (MCH) determinationOrdered By: [facility] Pfeifferyulia 03-15-2025 MCH (RBC) [Entitic mass] 30.2 pg 27.0-32.0 [facility] Mean corpuscular hemoglobin concentration (MCHC) determinationOrdered By: Pete Payne on 03-15-2025 MCHC (RBC) [Mass/Vol] 32.8 g/dL 32-36 [facility] Mean platelet volume determi nationOrdered By: Pete Payne on 03-15-2025 Platelet mean volume (Bld) [Entitic vol] 10.0 fL 6.2-12.0 [facility] Monocyte percentageOrdered B y: Pete Payne on 03-15-2025 Monocytes/100 WBC (Bld) 7.4 % 0-10 [facility] Neutrophil percentageOrdered By: Pete Payne on 03-15-2025 Neutrophils/100 WBC (Bld) 59.9 % 47-70 [facility] Nucleated red blood cell per centageOrdered By: Pete Payne on 03-15-2025 Nucleated RBC/100 WBC (Bld) [Ratio] 0 % 0-5 [facility] Platelet countOrdered By: Celeste Payne on 03-15-2025 Platelets (Bld) [#/Vol] 334 10*3/uL 150-450 [facility] RBC Auto (Bld) [#/Vol]Ordere d By: Pete Payne on 03-15-2025 RBC (Bld) [#/Vol] 3.81 10*6/uL Low 4.2-5.4 [facility] White blood cell (WBC) count Ordered By: Pete Payne on 03-15-2025 WBC (Bld) [#/Vol] 9.9 10*3/uL 4.4-11.0 [facility] Calculated very low density lipoprotein (VLDL) cholesterol measurementOrdered By: Pete Payne on 02-21-2025 Calculated very low density lipoprotein (VLDL) cholesterol measurement 49 mg/dL High 5-40 [facility] Hemoglobin A1c percentageOrd ered By: Pete Payne on 02-21-2025 HbA1c (Bld) [Mass fraction] 7.2 % High <5.7 [facility] Comment on above: Normal < 5.7 % Predi abetic 5.7 - 6.4 % Diabetic >or= 6.5 % Please note range changes. LDL calc ser/plasOrdered By: Pete Payne on 02-21-2025 Cholesterol in LDL [Mass/Vol] 36 mg/dL [facility] Comment on above: Bziusgkgvq=160-815 m g/dL & Higher Cszz=408 mg/dL or greaterFriedwald Equation for LDL-C Screening total cholesterol/ high density lipoprotein (HDL) cholesterol ratioOrdered By: Pete Payne on 02-21-2025 Cholesterol.total/Choles terol in HDL [Mass ratio] 3.46 {ratio} [facility] Serum or plasma cholesterol in HDL measurement (mass/volume)Ordered By: Pete Payne on 02-21-2025 Cholesterol in HDL [Mass/Vol] 35 mg/dL Low >40 [facility] Comment on above: National Cholesterol Education Program (NCEP) guidelines:<40 mg/dL: Low HDL-cholesterol (major risk factor for CHD)>= 60 mg/dL: High HDL-cholesterol (negative risk factor for CHD)HDL-cholesterol is affected by a number of factors, e.g. smoking, exercise, hormones, sex and age. Serum or plasma cholesterol measurement (mass/volume)Ordered By: Pete Payne on 02-21-2025 Cholesterol [Mass/Vol] 120 mg/dL <201 [facility] Comment on above: Cholesterol level, D esirable <200 mg/dLBorderline high cholesterol 200-239 mg/dLHigh cholesterol >=240 mg/dLRecommendations of the NCEP Adult Treatment Panel for the following risk-cutoff thresholds for the [place] population. Triglycerides measurementOrd ered By: Pete Payne on 02-21-2025 Triglyceride [Mass/Vol] 245 mg/dL High <199 [facility] Comment on above: The drugs N-Acetylcy steine and Metamizole may falsely depress this assay. Normal range: <150 mg/dLBorderline High: 150-199 mg/dLHigh: 200-499 mg/dLVery High: >500 mg/dL TSH DL <= 0.005 mIU/L QnOrde red By: Pete Payne on 02-06-2025 TSH Qn 2.850 uIU/mL 0.300-4.200 [facility] Absolute lymphocyte countOrd ered By: Pete Payne on 01-13-2025 Lymphocytes Auto (Unsp spec) [#/Vol] 2.32 10*3/uL 0.83-4.51 [facility] Absolute neutrophil countOrd ered By: geena Payne on 01-13-2025 Neutrophils (Bld) [#/Vol] 5.2 10*3/uL 2.0-7.7 [facility] Automated lymphocyte count a s percentage of total leukocytesOrdered By: Nithinsudarshan Elmer on 01-13-2025 Lymphocytes/100 WBC Auto (Unsp spec) 27.3 % 19-41 [facility] Basophil percentageOrdered B y: Pete Payne on 01-13-2025 Basophils/100 WBC (Bld) 0.9 % 0-1 [facility] Eosinophil percentageOrdered By: alexiscopensudarshan Payne on 01-13-2025 Eosinophils/100 WBC (Bld) 3.4 % 0-5 [facility] Erythrocyte distribution wid th ratioOrdered By: [facility] Hospitals[facility]ars[facility] Payen on 01-13-2025 Erythrocyte distribution width (RBC) [Ratio] 13.2 % 11.6-14.6 [facility] Erythrocyte distribution wid th standard deviationOrdered By: alexiscopensudarshan Payne on 01-13-2025 Erythrocyte distribution width (RBC) [Ratio] 45.4 fl High 35.1-43.9 [facility] Hematocrit Auto (Bld) [Volum e fraction]Ordered By: Celestealexiskeishasudarshan Pfeifferriteshyulia on 01-13-2025 Hematocrit (Bld) [Volume fraction] 36.0 % Low 37-47 [facility] Hemoglobin measurementOrdere d By: Pete Payne on 01-13-2025 Hemoglobin (Bld) [Mass/Vol] 11.4 g/dL Low 12.0-15.0 [facility] Immature granulocytes/100 WB C Auto (Bld)Ordered By: geena Pfeifferriteshyulia on 01-13-2025 Immature granulocytes/100 WBC (Bld) 0.500 % 0.0-0.9 [facility] Comment on above: IG% - Immature Granu locytes (promyelocytes, myelocytes and metamyelocytes) > 1% indicates that a LEFT SHIFT is Present. MCV (mean corpuscular volume ) determinationOrdered By: Pete Payne on 01-13-2025 MCV (RBC) [Entitic vol] 93.3 fL 81-99 [facility] Mean corpuscular hemoglobin (MCH) determinationOrdered By: Pete Payne on 01-13-2025 MCH (RBC) [Entitic mass] 29.5 pg 27.0-32.0 [facility] Mean corpuscular hemoglobin concentration (MCHC) determinationOrdered By: Pete Payne on 01-13-2025 MCHC (RBC) [Mass/Vol] 31.7 g/dL Low 32-36 [facility] Mean platelet volume determi nationOrdered By: Pete Payne on 01-13-2025 Platelet mean volume (Bld) [Entitic vol] 10.8 fL 6.2-12.0 [facility] Monocyte percentageOrdered B y: Pete Payne on 01-13-2025 Monocytes/100 WBC (Bld) 6.9 % 0-10 [facility] Neutrophil percentageOrdered By: Pete Payne on 01-13-2025 Neutrophils/100 WBC (Bld) 61.0 % 47-70 [facility] Nucleated red blood cell per centageOrdered By: Pete Pfeifferritehsyulia on 01-13-2025 Nucleated RBC/100 WBC (Bld) [Ratio] 0 % 0-5 [facility] Platelet countOrdered By: Celeste alexisanne Payne on 01-13-2025 Platelets (Bld) [#/Vol] 316 10*3/uL 150-450 [facility] RBC Auto (Bld) [#/Vol]Ordere d By: Pete Pfeifferriteshyulia on 01-13-2025 RBC (Bld) [#/Vol] 3.86 10*6/uL Low 4.2-5.4 [facility] White blood cell (WBC) count Ordered By: Pete Payne on 01-13-2025 WBC (Bld) [#/Vol] 8.5 10*3/uL 4.4-11.0 [facility] TSH DL <= 0.005 mIU/L QnOrde red By: Pete Payne on 12-26-2024 TSH Qn 4.080 uIU/mL 0.300-4.200 [facility] Absolute lymphocyte countOrd ered By: Pete Payne on 12-13-2024 Lymphocytes Auto (Unsp spec) [#/Vol] 2.57 10*3/uL 0.83-4.51 [facility] Absolute neutrophil countOrd ered By: geena Payne on 12-13-2024 Neutrophils (Bld) [#/Vol] 5.1 10*3/uL 2.0-7.7 [facility] Automated lymphocyte count a s percentage of total leukocytesOrdered By: Pete Payne on 12-13-2024 Lymphocytes/100 WBC Auto (Unsp spec) 29.2 % 19-41 [facility] Basophil percentageOrdered B y: Pete Payne on 12-13-2024 Basophils/100 WBC (Bld) 0.8 % 0-1 [facility] Eosinophil percentageOrdered By: [facility] Payne on 12-13-2024 Eosinophils/100 WBC (Bld) 3.5 % 0-5 [facility] Erythrocyte distribution wid th ratioOrdered By: geena Payne on 12-13-2024 Erythrocyte distribution width (RBC) [Ratio] 13.4 % 11.6-14.6 [facility] Erythrocyte distribution wid th standard deviationOrdered By: Pete Payne on 12-13-2024 Erythrocyte distribution width (RBC) [Ratio] 46.0 fl High 35.1-43.9 [facility] Hematocrit Auto (Bld) [Volum e fraction]Ordered By: Pete Payne on 12-13-2024 Hematocrit (Bld) [Volume fraction] 33.0 % Low 37-47 [facility] Hemoglobin measurementOrdere d By: Pete Payne on 12-13-2024 Hemoglobin (Bld) [Mass/Vol] 10.6 g/dL Low 12.0-15.0 [facility] Immature granulocytes/100 WB C Auto (Bld)Ordered By: Pete Payne on 12-13-2024 Immature granulocytes/100 WBC (Bld) 0.300 % 0.0-0.9 [facility] Comment on above: IG% - Immature Granu locytes (promyelocytes, myelocytes and metamyelocytes) > 1% indicates that a LEFT SHIFT is Present. MCV (mean corpuscular volume ) determinationOrdered By: Pete Payne on 12-13-2024 MCV (RBC) [Entitic vol] 94.0 fL 81-99 [facility] Mean corpuscular hemoglobin (MCH) determinationOrdered By: Pete Payne on 12-13-2024 MCH (RBC) [Entitic mass] 30.2 pg 27.0-32.0 [facility] Mean corpuscular hemoglobin concentration (MCHC) determinationOrdered By: Pete Payne on 12-13-2024 MCHC (RBC) [Mass/Vol] 32.1 g/dL 32-36 [facility] Mean platelet volume determi nationOrdered By: Pete Payne on 12-13-2024 Platelet mean volume (Bld) [Entitic vol] 9.9 fL 6.2-12.0 [facility] Monocyte percentageOrdered B y: Pete Payne on 12-13-2024 Monocytes/100 WBC (Bld) 8.1 % 0-10 [facility] Neutrophil percentageOrdered By: Pete Payne on 12-13-2024 Neutrophils/100 WBC (Bld) 58.1 % 47-70 [facility] Nucleated red blood cell per centageOrdered By: Pete Payne on 12-13-2024 Nucleated RBC/100 WBC (Bld) [Ratio] 0 % 0-5 [facility] Platelet countOrdered By: Celeste Payne on 12-13-2024 Platelets (Bld) [#/Vol] 309 10*3/uL 150-450 [facility] RBC Auto (Bld) [#/Vol]Ordere d By: Pete Payne on 12-13-2024 RBC (Bld) [#/Vol] 3.51 10*6/uL Low 4.2-5.4 [facility] White blood cell (WBC) count Ordered By: Pete Payne on 12-13-2024 WBC (Bld) [#/Vol] 8.8 10*3/uL 4.4-11.0 [facility] Hemoglobin A1c percentageOrd ered By: Pete Payne on 11-22-2024 HbA1c (Bld) [Mass fraction] 7.0 % High <5.7 [facility] Comment on above: Normal < 5.7 % Predi abetic 5.7 - 6.4 % Diabetic >or= 6.5 % Please note range changes. TSH DL <= 0.005 mIU/L QnOrde red By: Pete Payne on 11-14-2024 TSH Qn 3.270 uIU/mL 0.300-4.200 [facility] Brain/Head without Contrasto n 11-03-2024 Brain/Head without Contrast [facility] Imaging Services [address] [place] [address] Brain/Head without Contrast MR#: [id number] Acct: [id number] Name: MAXIME AMARAL Rep #: [id number] : 1935 F 89 From: Davin Sotelo DO PCP: Dr. Pete Payne MD Status: [facility] ER Study: Brain/Head without Contrast Date of Exam: 10/18 02/10 Exam# [id number] Ordering Dr: Alirio Edward DO PROCEDURE: BRAIN/HEAD [...] CHRONIC CHANGES. NO ACUTE FINDINGS. [facility]: Dr. Pete Payne MD; Dr. Alirio Edward DO Investor Relations Director: Signed Normal [facility] Emergency Department Summary on 11-03-2024 Emergency Department Summary [facility] Medical Records Department [address] [place] [address] Emergency Department Summary 11/03/24 MR#: [id number] Acct: [id number] Name: MAXIME AMARAL Rep #: [id number] : 1935 89 From: Alirio Patel PCP: Dr. Pete Payne MD Status:REG ER Location: ED HPI HPI - Fall History of Present Illness Chief Complaint: Fall Informant: patient and family Narrative Narrative: Patient brought in by EMS from [facility] witnessed fall head injury. Patient history [...] from paperwork. She has baseline per son. [facility] Medical History Dry eye syndrome of bilateral [...] included)... Normal [facility] Shoulder min 2 Viewson 11-03 Shoulder min 2 Views [facility] Imaging Services [address] [place] [address] Shoulder min 2 Views MR#: [id number] Acct: [id number] Name: MAXIME AMARAL Rep #: [id number] : 1935 F 89 From: Davin Sotelo DO PCP: Dr. Pete Payne MD Status: REG ER Study: Shoulder min 2 Views Date of Exam: 11/03/24 Exam# [id number] Ordering Dr: Alirio Edward DO PROCEDURE: SHOULDER [...] Pete Payne MD; Dr. Alirio Edward DO Investor Relations Director: Signed Normal [facility] Sinus/Facial Boneon 11-04-19 Sinus/Facial Bone [facility] Imaging Services [address] [place] [address] Sinus/Facial Bone MR#: [id number] Acct: [id number] Name: MAXIME AMARAL Rep #: [id number] : 1935 F 89 From: Davin Sotelo DO PCP: Dr. Peet Payne MD Status: REG ER Study: Sinus/Facial Bone Date of Exam: 11/03/24 Exam# [id number] Ordering Dr: Alirio Edward DO PROCEDURE: SINUS/FACIAL [...] Pete Payne MD; Dr. Alirio Edward DO Investor Relations Director: Signed Normal [facility] Spine Cervical without Contr ason 11-03-2024 Spine Cervical without Contras [facility] Imaging Services [address] [place] [address] Spine Cervical without Contras MR#: [id number] Acct: [id number] Name: MAXIME AMARAL Rep #: [id number] : 1935 F 89 From: Davin Sotelo DO PCP: Dr. Pete Payne MD Status: REG ER Study: Spine Cervical without Contras Date of Exam: 0 11/03/24 Exam# [id number] Ordering Dr: Alirio Edward DO PROCEDURE: SPINE [...] No acute fracture or subluxation. [facility] CC: Dr. Pete Payne MD; Dr. Alirio Edward DO Investor Relations Director: Signed Normal [facility] Absolute lymphocyte countOrd ered By: Pete Payne on 10-17-2024 Lymphocytes Auto (Unsp spec) [#/Vol] 3.03 10*3/uL 0.83-4.51 [facility] Absolute neutrophil countOrd ered By: Pete Payne on 10-17-2024 Neutrophils (Bld) [#/Vol] 5.3 10*3/uL 2.0-7.7 [facility] Automated lymphocyte count a s percentage of total leukocytesOrdered By: Pete Payne on 10-17-2024 Lymphocytes/100 WBC Auto (Unsp spec) 31.8 % 19-41 [facility] Basophil percentageOrdered B y: Pete Payne on 10-17-2024 Basophils/100 WBC (Bld) 0.8 % 0-1 [facility] Eosinophil percentageOrdered By: Pete Payne on 10-17-2024 Eosinophils/100 WBC (Bld) 3.6 % 0-5 [facility] Erythrocyte distribution wid th (RBC) [Ratio]Ordered By: Pete Payne on 10-17-2024 Erythrocyte distribution width (RBC) [Entitic vol] 45.9 fL High 35.1-43.9 [facility] Erythrocyte distribution wid th ratioOrdered By: Pete Payne on 10-17-2024 Erythrocyte distribution width (RBC) [Ratio] 13.4 % 11.6-14.6 [facility] Erythrocyte distribution wid th standard deviationOrdered By: Saturninocopensudarshan Payne on 10-17-2024 Erythrocyte distribution width (RBC) [Ratio] 45.9 fl High 35.1-43.9 [facility] Hematocrit Auto (Bld) [Volum e fraction]Ordered By: Pete Payne on 10-17-2024 Hematocrit (Bld) [Volume fraction] 34.1 % Low 37-47 [facility] Hemoglobin measurementOrdere d By: Saturninocopensudarshan Payne on 10-17-2024 Hemoglobin (Bld) [Mass/Vol] 11.1 g/dL Low 12.0-15.0 [facility] Immature granulocytes/100 WB C Auto (Bld)Ordered By: alexiscopensudarshan Payne on 10-17-2024 Immature granulocytes/100 WBC (Bld) 0.400 % 0.0-0.9 [facility] Comment on above: IG% - Immature Granu locytes (promyelocytes, myelocytes and metamyelocytes) > 1% indicates that a LEFT SHIFT is Present. Lymphocytes Auto (Unsp spec) [#/Vol]Ordered By: Pete Payne on 10-17-2024 Lymphocytes (Bld) [#/Vol] 3.03 10*3/uL 0.83-4.51 [facility] Lymphocytes/100 WBC Auto (Un sp spec)Ordered By: Pete Payne on 10-17-2024 Lymphocytes/100 WBC (Bld) 31.8 % 19-41 [facility] MCV (mean corpuscular volume ) determinationOrdered By: Pete Payne on 10-17-2024 MCV (RBC) [Entitic vol] 92.4 fL 81-99 [facility] Mean corpuscular hemoglobin (MCH) determinationOrdered By: Pete Payne on 10-17-2024 MCH (RBC) [Entitic mass] 30.1 pg 27.0-32.0 [facility] Mean corpuscular hemoglobin concentration (MCHC) determinationOrdered By: Pete Payne on 10-17-2024 MCHC (RBC) [Mass/Vol] 32.6 g/dL 32-36 [facility] Mean platelet volume determi nationOrdered By: Pete Payne on 10-17-2024 Platelet mean volume (Bld) [Entitic vol] 10.0 fL 6.2-12.0 [facility] Monocyte percentageOrdered B y: Pete Payne on 10-17-2024 Monocytes/100 WBC (Bld) 7.4 % 0-10 [facility] Neutrophil percentageOrdered By: Pete Payne on 10-17-2024 Neutrophils/100 WBC (Bld) 56.0 % 47-70 [facility] Nucleated red blood cell per centageOrdered By: Pete Payne on 10-17-2024 Nucleated RBC/100 WBC (Bld) [Ratio] 0 % 0-5 [facility] Platelet countOrdered By: Celeste alexisanne Payne on 10-17-2024 Platelets (Bld) [#/Vol] 346 10*3/uL 150-450 [facility] RBC Auto (Bld) [#/Vol]Ordere d By: Pete Payne on 10-17-2024 RBC (Bld) [#/Vol] 3.69 10*6/uL Low 4.2-5.4 [facility] White blood cell (WBC) count Ordered By: Pete Payne on 10-17-2024 WBC (Bld) [#/Vol] 9.5 10*3/uL 4.4-11.0 [facility] Absolute lymphocyte countOrd ered By: Pete Payne on 10-10-2024 Lymphocytes Auto (Unsp spec) [#/Vol] 2.36 10*3/uL 0.83-4.51 [facility] Absolute neutrophil countOrd ered By: Pete Payne on 10-10-2024 Neutrophils (Bld) [#/Vol] 5.5 10*3/uL 2.0-7.7 [facility] Automated lymphocyte count a s percentage of total leukocytesOrdered By: Pete Payne on 10-10-2024 Lymphocytes/100 WBC Auto (Unsp spec) 26.6 % 19-41 [facility] Basophil percentageOrdered B y: Pete Payne on 10-10-2024 Basophils/100 WBC (Bld) 0.9 % 0-1 [facility] Eosinophil percentageOrdered By: alexiscopensudarshan Payne on 10-10-2024 Eosinophils/100 WBC (Bld) 2.8 % 0-5 [facility] Erythrocyte distribution wid th (RBC) [Ratio]Ordered By: [facility] Pfeifferyulia on 10-10-2024 Erythrocyte distribution width (RBC) [Entitic vol] 45.0 fL High 35.1-43.9 [facility] Erythrocyte distribution wid th ratioOrdered By: [facility] Payne on 10-10-2024 Erythrocyte distribution width (RBC) [Ratio] 13.2 % 11.6-14.6 [facility] Erythrocyte distribution wid th standard deviationOrdered By: [facility] Elmer on 10-10-2024 Erythrocyte distribution width (RBC) [Ratio] 45.0 fl High 35.1-43.9 [facility] Hematocrit Auto (Bld) [Volum e fraction]Ordered By: alexiscopensudarshan Payne on 10-10-2024 Hematocrit (Bld) [Volume fraction] 35.0 % Low 37-47 [facility] Hemoglobin measurementOrdere d By: Pete Payne on 10-10-2024 Hemoglobin (Bld) [Mass/Vol] 11.3 g/dL Low 12.0-15.0 [facility] Immature granulocytes/100 WB C Auto (Bld)Ordered By: geena Payne on 10-10-2024 Immature granulocytes/100 WBC (Bld) 0.500 % 0.0-0.9 [facility] Comment on above: IG% - Immature Granu locytes (promyelocytes, myelocytes and metamyelocytes) > 1% indicates that a LEFT SHIFT is Present. Lymphocytes Auto (Unsp spec) [#/Vol]Ordered By: Pete Payne on 10-10-2024 Lymphocytes (Bld) [#/Vol] 2.36 10*3/uL 0.83-4.51 [facility] Lymphocytes/100 WBC Auto (Un sp spec)Ordered By: Pete Payne on 10-10-2024 Lymphocytes/100 WBC (Bld) 26.6 % 19-41 [facility] MCV (mean corpuscular volume ) determinationOrdered By: Pete Payne on 10-10-2024 MCV (RBC) [Entitic vol] 92.6 fL 81-99 [facility] Mean corpuscular hemoglobin (MCH) determinationOrdered By: Pete Payne on 10-10-2024 MCH (RBC) [Entitic mass] 29.9 pg 27.0-32.0 [facility] Mean corpuscular hemoglobin concentration (MCHC) determinationOrdered By: Pete Payne on 10-10-2024 MCHC (RBC) [Mass/Vol] 32.3 g/dL 32-36 [facility] Mean platelet volume determi nationOrdered By: Pete Payne on 10-10-2024 Platelet mean volume (Bld) [Entitic vol] 10.1 fL 6.2-12.0 [facility] Monocyte percentageOrdered B y: Pete Payne on 10-10-2024 Monocytes/100 WBC (Bld) 6.7 % 0-10 [facility] Neutrophil percentageOrdered By: Pete Payne on 10-10-2024 Neutrophils/100 WBC (Bld) 62.5 % 47-70 [facility] Nucleated red blood cell per centageOrdered By: Pete Payne on 10-10-2024 Nucleated RBC/100 WBC (Bld) [Ratio] 0 % 0-5 [facility] Platelet countOrdered By: Celeste Payne on 10-10-2024 Platelets (Bld) [#/Vol] 361 10*3/uL 150-450 [facility] RBC Auto (Bld) [#/Vol]Ordere d By: Pete Payne on 10-10-2024 RBC (Bld) [#/Vol] 3.78 10*6/uL Low 4.2-5.4 [facility] White blood cell (WBC) count Ordered By: Pete Payne on 10-10-2024 WBC (Bld) [#/Vol] 8.9 10*3/uL 4.4-11.0 [facility] Absolute lymphocyte countOrd ered By: Pete Payne on 10-06-2024 Lymphocytes Auto (Unsp spec) [#/Vol] 2.51 10*3/uL 0.83-4.51 [facility] Absolute neutrophil countOrd ered By: Pete Beltrane on 10-06-2024 Neutrophils (Bld) [#/Vol] 4.8 10*3/uL 2.0-7.7 [facility] Automated lymphocyte count a s percentage of total leukocytesOrdered By: Pete Payne on 10-06-2024 Lymphocytes/100 WBC Auto (Unsp spec) 30.2 % 19-41 [facility] Basophil percentageOrdered B y: Pete Beltrane on 10-06-2024 Basophils/100 WBC (Bld) 1.0 % 0-1 [facility] Eosinophil percentageOrdered By: Pete Beltrane on 10-06-2024 Eosinophils/100 WBC (Bld) 3.1 % 0-5 [facility] Erythrocyte distribution wid th (RBC) [Ratio]Ordered By: Pete Beltrane on 10-06-2024 Erythrocyte distribution width (RBC) [Entitic vol] 44.4 fL High 35.1-43.9 [facility] Erythrocyte distribution wid th ratioOrdered By: alexisongsudarshan Beltrane on 10-06-2024 Erythrocyte distribution width (RBC) [Ratio] 13.3 % 11.6-14.6 [facility] Erythrocyte distribution wid th standard deviationOrdered By: Pete Beltrane on 10-06-2024 Erythrocyte distribution width (RBC) [Ratio] 44.4 fl High 35.1-43.9 [facility] Hematocrit Auto (Bld) [Volum e fraction]Ordered By: Pete Beltrane on 10-06-2024 Hematocrit (Bld) [Volume fraction] 33.2 % Low 37-47 [facility] Hemoglobin measurementOrdere d By: Pete Payne on 10-06-2024 Hemoglobin (Bld) [Mass/Vol] 11.2 g/dL Low 12.0-15.0 [facility] Immature granulocytes/100 WB C Auto (Bld)Ordered By: Pete Payne on 10-06-2024 Immature granulocytes/100 WBC (Bld) 0.400 % 0.0-0.9 [facility] Comment on above: IG% - Immature Granu locytes (promyelocytes, myelocytes and metamyelocytes) > 1% indicates that a LEFT SHIFT is Present. Lymphocytes Auto (Unsp spec) [#/Vol]Ordered By: Pete Payne on 10-06-2024 Lymphocytes (Bld) [#/Vol] 2.51 10*3/uL 0.83-4.51 [facility] Lymphocytes/100 WBC Auto (Un sp spec)Ordered By: Pete Payne on 10-06-2024 Lymphocytes/100 WBC (Bld) 30.2 % 19-41 [facility] MCV (mean corpuscular volume ) determinationOrdered By: Saturninocopensudarshan Payne on 10-06-2024 MCV (RBC) [Entitic vol] 91.5 fL 81-99 [facility] Mean corpuscular hemoglobin (MCH) determinationOrdered By: Pete Payne on 10-06-2024 MCH (RBC) [Entitic mass] 30.9 pg 27.0-32.0 [facility] Mean corpuscular hemoglobin concentration (MCHC) determinationOrdered By: alexiscopensudarshan Payne on 10-06-2024 MCHC (RBC) [Mass/Vol] 33.7 g/dL 32-36 [facility] Mean platelet volume determi nationOrdered By: Pete Payne on 10-06-2024 Platelet mean volume (Bld) [Entitic vol] 9.8 fL 6.2-12.0 [facility] Monocyte percentageOrdered B y: Pete Payne on 10-06-2024 Monocytes/100 WBC (Bld) 7.9 % 0-10 [facility] Neutrophil percentageOrdered By: Saturninokeishasudarshan Pfeifferriteshyulia on 10-06-2024 Neutrophils/100 WBC (Bld) 57.4 % 47-70 [facility] Nucleated red blood cell per centageOrdered By: Pete Kentrellriteshyulia on 10-06-2024 Nucleated RBC/100 WBC (Bld) [Ratio] 0 % 0-5 [facility] Platelet countOrdered By: Celeste geena Kentrellriteshyulia on 10-06-2024 Platelets (Bld) [#/Vol] 348 10*3/uL 150-450 [facility] RBC Auto (Bld) [#/Vol]Ordere d By: Celestegeena Kentrellriteshyulia on 10-06-2024 RBC (Bld) [#/Vol] 3.63 10*6/uL Low 4.2-5.4 [facility] White blood cell (WBC) count Ordered By: Saturninokeishasudarshan Pfeifferriteshyulia on 10-06-2024 WBC (Bld) [#/Vol] 8.3 10*3/uL 4.4-11.0 [facility] T4 freeOrdered By: Saturninoanne Kentrellriteshyulia on 10-03-2024 Free T4 [Mass/Vol] 1.20 ng/dL 0.76-1.46 [facility] TSH DL <= 0.005 mIU/L QnOrde red By: Saturninoanne Kentrellriteshyulia on 10-03-2024 Thyroid Stimulating Hormone (TSH) 4.480 uIU/mL High 0.300-4.200 [facility] TSH Qn 4.480 uIU/mL High 0.300-4.200 [facility] Absolute lymphocyte countOrd ered By: Saturninokeishasudarshan Pfeifferriteshyulia on 08-23-2024 Lymphocytes Auto (Unsp spec) [#/Vol] 2.44 10*3/uL 0.83-4.51 [facility] Absolute neutrophil countOrd ered By: Pete Kentrellriteshyulia on 08-23-2024 Neutrophils (Bld) [#/Vol] 5.4 10*3/uL 2.0-7.7 [facility] Albumin to globulin ratioOrd ered By: Saturninokeishasudarshan Pfeifferriteshyulia on 08-23-2024 Albumin/Globulin [Mass ratio] 0.7 {ratio} Low 0.9-2.4 [facility] Automated lymphocyte count a s percentage of total leukocytesOrdered By: Pete Payne on 08-23-2024 Lymphocytes/100 WBC Auto (Unsp spec) 27.5 % 19-41 [facility] Basophil percentageOrdered B y: Pete Payne on 08-23-2024 Basophils/100 WBC (Bld) 0.6 % 0-1 [facility] Bilirubin, totalOrdered By: Pete Payne on 08-23-2024 Bilirubin [Mass/Vol] 0.90 mg/dL 0.20-1.00 [facility] Comment on above: For patients on eltr ombopag therapy, use of Dimension [place] TBIL is not recommended. Blood urea nitrogen (BUN)/cr eatinine ratioOrdered By: Pete Payne on 08-23-2024 Urea nitrogen/Creatinine [Mass ratio] 19.5 mg/mg 10-20 [facility] Carbon dioxide measurementOr dered By: Pete Payne on 08-23-2024 CO2 [Moles/Vol] 25.0 mmol/L 21.0-32.0 [facility] Chloride measurementOrdered By: Pete Payne on 08-23-2024 Chloride [Moles/Vol] 108 mmol/L High 98-107 [facility] Eosinophil percentageOrdered By: Pete Payne on 08-23-2024 Eosinophils/100 WBC (Bld) 3.4 % 0-5 [facility] Erythrocyte distribution wid th (RBC) [Ratio]Ordered By: Pete Payne on 08-23-2024 Erythrocyte distribution width (RBC) [Entitic vol] 47.5 fL High 35.1-43.9 [facility] Erythrocyte distribution wid th ratioOrdered By: Pete Payne on 08-23-2024 Erythrocyte distribution width (RBC) [Ratio] 13.8 % 11.6-14.6 [facility] Erythrocyte distribution wid th standard deviationOrdered By: Pete Payne on 08-23-2024 Erythrocyte distribution width (RBC) [Ratio] 47.5 fl High 35.1-43.9 [facility] Estimated glomerular filtrat ion rate (GFR) AmericanOrdered By: Pete Payne on 08-23-2024 Estimated GFR (MDRD) Amer 69 mL/min >60 [facility] Comment on above: GFR Calc Glomerular filtration rate ( GFR) estimationOrdered By: Pete Payne on 08-23-2024 Estimated GFR (MDRD) Non-Af Amer 57 mL/min Low >60 [facility] Comment on above: Non- GFR Calc GFR/1.73 sq M.predicted among non-blacks MDRD (S/P/Bld) [Vol rate/Area] 57 mL/min/{1.73_m2} Low >60 [facility] Comment on above: Non- GFR Calc Glucose measurementOrdered B y: Pete Payne on 08-23-2024 Glucose [Mass/Vol] 122 mg/dL High 74-106 [facility] Comment on above: Fasting Glucose resu lt from 100 to 125 mg/dL suggests IMPAIRED HOMEOSTASIS per A.D.A. criteria. Hematocrit Auto (Bld) [Volum e fraction]Ordered By: Pete Payne on 08-23-2024 Hematocrit (Bld) [Volume fraction] 34.2 % Low 37-47 [facility] Hemoglobin A1c percentageOrd ered By: Pete Payne on 08-23-2024 HbA1c (Bld) [Mass fraction] 6.5 % High 3.8-5.6 [facility] Comment on above: Normal < 5.7 % Predi abetic 5.7 - 6.4 % Diabetic >or= 6.5 % Please note range changes. Hemoglobin measurementOrdere d By: Pete Payne on 08-23-2024 Hemoglobin (Bld) [Mass/Vol] 11.0 g/dL Low 12.0-15.0 [facility] Immature granulocytes/100 WB C Auto (Bld)Ordered By: Pete Payne on 08-23-2024 Immature granulocytes/100 WBC (Bld) 0.600 % 0.0-0.9 [facility] Comment on above: IG% - Immature Granu locytes (promyelocytes, myelocytes and metamyelocytes) > 1% indicates that a LEFT SHIFT is Present. Laboratory - Chemistry and C hemistry - challengeOrdered By: Pete Payne on 08-23-2024 AST [Catalytic activity/Vol] 12 U/L Low 15-37 [facility] Lymphocytes Auto (Unsp spec) [#/Vol]Ordered By: Pete Payne on 08-23-2024 Lymphocytes (Bld) [#/Vol] 2.44 10*3/uL 0.83-4.51 [facility] Lymphocytes/100 WBC Auto (Un sp spec)Ordered By: Pete Payne on 08-23-2024 Lymphocytes/100 WBC (Bld) 27.5 % 19-41 [facility] MCV (mean corpuscular volume ) determinationOrdered By: Pete Payne on 08-23-2024 MCV (RBC) [Entitic vol] 93.4 fL 81-99 [facility] Mean corpuscular hemoglobin (MCH) determinationOrdered By: Pete Payne on 08-23-2024 MCH (RBC) [Entitic mass] 30.1 pg 27.0-32.0 [facility] Mean corpuscular hemoglobin concentration (MCHC) determinationOrdered By: Pete Payne on 08-23-2024 MCHC (RBC) [Mass/Vol] 32.2 g/dL 32-36 [facility] Mean platelet volume determi nationOrdered By: Pete Payne on 08-23-2024 Platelet mean volume (Bld) [Entitic vol] 10.2 fL 6.2-12.0 [facility] Monocyte percentageOrdered B y: Pete Payne on 08-23-2024 Monocytes/100 WBC (Bld) 7.2 % 0-10 [facility] Neutrophil percentageOrdered By: alexiscopensudarshan Payne on 08-23-2024 Neutrophils/100 WBC (Bld) 60.7 % 47-70 [facility] Nucleated red blood cell per centageOrdered By: Pete Payne on 08-23-2024 Nucleated RBC/100 WBC (Bld) [Ratio] 0 % 0-5 [facility] Platelet countOrdered By: Celeste Payne on 08-23-2024 Platelets (Bld) [#/Vol] 352 10*3/uL 150-450 [facility] Potassium measurementOrdered By: Pete Payne on 08-23-2024 Potassium [Moles/Vol] 4.0 mmol/L 3.5-5.1 [facility] RBC Auto (Bld) [#/Vol]Ordere d By: Pete Payne on 08-23-2024 RBC (Bld) [#/Vol] 3.66 10*6/uL Low 4.2-5.4 [facility] Serum anion gap measurementO rdered By: Pete Payne on 08-23-2024 Anion gap [Moles/Vol] 8 mmol/L 5-15 [facility] Serum globulin measurementOr dered By: Pete Payne on 08-23-2024 Globulin (S) [Mass/Vol] 3.5 g/dL 2.2-4.2 [facility] Serum or plasma alanine castro otransferase (ALT) measurementOrdered By: Pete Payne on 08-23-2024 ALT [Catalytic activity/Vol] 12 U/L Low 13-56 [facility] Serum or plasma albumin karri urement (mass/volume)Ordered By: Pete Payne on 08-23-2024 Albumin [Mass/Vol] 2.6 g/dL Low 3.2-5.0 [facility] Serum or plasma alkaline corky sphatase measurementOrdered By: Pete Payne on 08-23-2024 ALP [Catalytic activity/Vol] 54 U/L 45-117 [facility] Serum or plasma calcium karri urement (mass/volume)Ordered By: Pete Payne on 08-23-2024 Calcium [Mass/Vol] 8.5 mg/dL 8.5-10.1 [facility] Serum or plasma creatinine m easurement (mass/volume)Ordered By: Pete Payne on 08-23-2024 Creatinine [Mass/Vol] 0.98 mg/dL 0.55-1.02 [facility] Comment on above: The validity of the calculated GFR & GFRAA in patients over 70 years has not been determined. Clinical correlation is essential. Serum or plasma thyroid stim ulating hormone (TSH) measurement (units/volume)Ordered By: Nithinsudarshan Pfeifferriteshyulia on 08-23-2024 TSH Qn 3.840 uIU/mL High 0.358-3.740 [facility] Serum or plasma urea nitroge n measurement (mass/volume)Ordered By: Celestegeena Pfeifferriteshyulia on 08-23-2024 Urea nitrogen [Mass/Vol] 19 mg/dL High 7-18 [facility] Sodium levelOrdered By: Saturnino rodríguez Kentrellriteshyulia on 08-23-2024 Sodium [Moles/Vol] 141 mmol/L 136-145 [facility] TSH QnOrdered By: Pete Kentrellsarthak on 08-23-2024 Thyroid Stimulating Hormone (TSH) 3.840 uIU/mL High 0.358-3.740 [facility] Total proteinOrdered By: Ramsey felix Kentrellriteshyulia on 08-23-2024 Protein [Mass/Vol] 6.1 g/dL Low 6.4-8.2 [facility] White blood cell (WBC) count Ordered By: Celestealexisanne Kentrellriteshyulia on 08-23-2024 WBC (Bld) [#/Vol] 8.9 10*3/uL 4.4-11.0 [facility] TSH QnOrdered By: Pete Kentrellsarthak on 07-11-2024 Thyroid Stimulating Hormone (TSH) 3.030 uIU/mL 0.358-3.740 [facility] Absolute lymphocyte countOrd ered By: Celestealexiskeishasudarshan Pfeifferriteshyulia on 08-25-2023 Lymphocytes Auto (Unsp spec) [#/Vol] 2.56 10*3/uL 0.83-4.51 [facility] Automated lymphocyte count a s percentage of total leukocytesOrdered By: Celestealexiskeishasudarshan Pfeifferriteshyulia on 08-25-2023 Lymphocytes/100 WBC Auto (Unsp spec) 28.1 % 19-41 [facility] Basophil percentageOrdered B y: Saturninokeishasudarshan aPyne on 08-25-2023 Basophils/100 WBC (Bld) 1.0 % 0-1 [facility] Bilirubin [Mass/Vol] 1.00 mg/dL 0.20-1.00 [facility] Comment on above: For patients on eltr ombopag therapy, use of Dimension [place] TBIL is not recommended. Chloride [Moles/Vol] 107 mmol/L 98-107 [facility] Eosinophils/100 WBC (Bld) 3.4 % 0-5 [facility] Glucose [Mass/Vol] 143 mg/dL 74-106 [facility] Comment on above: Fasting Glucose resu lt greater than or equal to 126 mg/dL suggests DIABETES MELLITUS per A.D.A. criteria. Hemoglobin (Bld) [Mass/Vol] 11.1 g/dL 12.0-15.0 [facility] Monocytes/100 WBC (Bld) 6.9 % 0-10 [facility] Neutrophils (Bld) [#/Vol] 5.5 10*3/uL 2.0-7.7 [facility] Neutrophils/100 WBC (Bld) 60.3 % 47-70 [facility] Potassium [Moles/Vol] 4.1 mmol/L 3.5-5.1 [facility] Protein [Mass/Vol] 6.8 g/dL 6.4-8.2 [facility] Sodium [Moles/Vol] 140 mmol/L 136-145 [facility] WBC (Bld) [#/Vol] 9.1 10*3/uL 4.4-11.0 [facility] Determination of erythrocyte mean corpuscular volume (MCV)Ordered By: Pete Payne on 08-25-2023 MCV (RBC) [Entitic vol] 93.5 fL 81-99 [facility] Erythrocyte distribution wid th ratioOrdered By: Pete Payne on 08-25-2023 Erythrocyte distribution width (RBC) [Ratio] 12.9 % 11.6-14.6 [facility] Erythrocyte distribution wid th standard deviationOrdered By: ePte Payne on 08-25-2023 Erythrocyte distribution width (RBC) [Entitic vol] 44.3 fL 35.1-43.9 [facility] Hematocrit Auto (Bld) [Volum e fraction]Ordered By: Pete Payne on 08-25-2023 Hematocrit (Bld) [Volume fraction] 34.5 % 37-47 [facility] Immature granulocytes/100 WB C Auto (Bld)Ordered By: Pete Payne on 08-25-2023 Immature granulocytes/100 WBC (Bld) 0.300 % 0.0-0.9 [facility] Comment on above: IG% - Immature Granu locytes (promyelocytes, myelocytes and metamyelocytes) > 1% indicates that a LEFT SHIFT is Present. Laboratory - Chemistry and C hemistry - challengeOrdered By: Pete Payne on 08-25-2023 Albumin/Globulin [Mass ratio] 0.8 {ratio} 0.9-2.4 [facility] ALP [Catalytic activity/Vol] 62 U/L 45-117 [facility] ALT [Catalytic activity/Vol] 14 U/L 13-56 [facility] CO2 [Moles/Vol] 25.0 mmol/L 21.0-32.0 [facility] Globulin (S) [Mass/Vol] 3.8 g/dL 2.2-4.2 [facility] Urea nitrogen/Creatinine [Mass ratio] 20.9 mg/mg 10-20 [facility] Laboratory - Hematology and Cell countsOrdered By: Pete Payne on 08-25-2023 MCH (RBC) [Entitic mass] 30.1 pg 27.0-32.0 [facility] MCHC (RBC) [Mass/Vol] 32.2 g/dL 32-36 [facility] Nucleated RBC/100 WBC (Bld) [Ratio] 0 % 0-5 [facility] Platelet mean volume (Bld) [Entitic vol] 10.2 fL 6.2-12.0 [facility] Platelets (Bld) [#/Vol] 373 10*3/uL 150-450 [facility] No Panel InformationOrdered By: Pete Payne on 08-25-2023 Estimated GFR (MDRD) Amer 71 mL/min >60 [facility] Comment on above: GFR Calc Estimated GFR (MDRD) Non-Af Amer 59 mL/min >60 [facility] Comment on above: Non- GFR Calc RBC Auto (Bld) [#/Vol]Ordere d By: Pete Payne on 08-25-2023 RBC (Bld) [#/Vol] 3.69 10*6/uL 4.2-5.4 [facility] Serum or plasma calcium karri urement (mass/volume)Ordered By: Pete Payne on 08-25-2023 Calcium [Mass/Vol] 9.4 mg/dL 8.5-10.1 [facility] Serum or plasma creatinine m easurement (mass/volume)Ordered By: Pete Payne on 08-25-2023 Creatinine [Mass/Vol] 0.96 mg/dL 0.55-1.02 [facility] Comment on above: The validity of the calculated GFR & GFRAA in patients over 70 years has not been determined. Clinical correlation is essential. Serum or plasma urea nitroge n measurement (mass/volume)Ordered By: Pete Payne on 08-25-2023 Urea nitrogen [Mass/Vol] 20 mg/dL 7-18 [facility] Thin prep Papanicolaou smear with manual screeningOrdered By: Pete Payne on 08-25-2023 Thin prep Papanicolaou smear with manual screening 3.0 g/dL 3.2-5.0 [facility] Thin prep Papanicolaou smear with manual screening 13 U/L 15-37 [facility] Thin prep Papanicolaou smear with manual screening 8 5-15 [facility] Whole blood hemoglobin A1c/t otal hemoglobin ratio (mass fraction)Ordered By: Pete Payne on 08-25-2023 HbA1c (Bld) [Mass fraction] 6.9 % 3.8-5.6 [facility] Comment on above: Normal < 5.7 % Predi abetic 5.7 - 6.4 % Diabetic >or= 6.5 % Please note range changes. Laboratory - Chemistry and C hemistry - challengeOrdered By: Pete Payne on 03-16-2023 Free T4 [Mass/Vol] 1.07 ng/dL 0.76-1.46 [facility] No Panel InformationOrdered By: Pete Payne on 03-16-2023 Thyroid Stimulating Hormone (TSH) 4.03 uIU/mL 0.358-3.74 [facility] Total Triiodothyronine 1.24 ng/mL 0.6-1.81 [facility] Absolute lymphocyte countOrd ered By: Pete Payne on 03-12-2023 Lymphocytes Auto (Unsp spec) [#/Vol] 2.46 10*3/uL 0.83-4.51 [facility] Basophil percentageOrdered B y: Pete Payne on 03-12-2023 Basophils/100 WBC (Bld) 1.1 % 0-1 [facility] Bilirubin [Mass/Vol] 0.70 mg/dL 0.20-1.00 [facility] Comment on above: For patients on eltr ombopag therapy, use of Dimension [place] TBIL is not recommended. Chloride [Moles/Vol] 106 mmol/L 98-107 [facility] Cholesterol [Mass/Vol] 106 mg/dL <200 [facility] Comment on above: <200 mg/dL Desirable 200-240 mg/dL Borderline >240 mg/dL High Risk Eosinophils/100 WBC (Bld) 2.8 % 0-5 [facility] Glucose [Mass/Vol] 151 mg/dL 74-106 [facility] Comment on above: Fasting Glucose resu lt greater than or equal to 126 mg/dL suggests DIABETES MELLITUS per A.D.A. criteria. Neutrophils (Bld) [#/Vol] 4.8 10*3/uL 2.0-7.7 [facility] Neutrophils/100 WBC (Bld) 57.0 % 47-70 [facility] Potassium [Moles/Vol] 4.1 mmol/L 3.5-5.1 [facility] Protein [Mass/Vol] 6.3 g/dL 6.4-8.2 [facility] Sodium [Moles/Vol] 138 mmol/L 136-145 [facility] Triglyceride [Mass/Vol] 135 mg/dL <199 [facility] Comment on above: The drugs N-Acetylcy steine and Metamizole may falsely depress this assay.Serum Triglycerides Reference Interval Normal <150 mg/dL Borderline high 150 - 199 mg/dL High 200 - 499 mg/dL Very High > or = 500 mg/dL WBC (Bld) [#/Vol] 8.3 10*3/uL 4.4-11.0 [facility] Blood erythrocytes count (nu mber/volume)Ordered By: Pete Payne on 03-12-2023 RBC (Bld) [#/Vol] 3.59 10*6/uL 4.2-5.4 [facility] Blood hemoglobin measurement (mass/volume)Ordered By: Pete Payne on 03-12-2023 Hemoglobin (Bld) [Mass/Vol] 11.0 g/dL 12.0-15.0 [facility] Blood lymphocytes/100 leukoc ytesOrdered By: Pete Payne on 03-12-2023 Lymphocytes/100 WBC (Bld) 29.5 % 19-41 [facility] Blood monocytes/100 leukocyt esOrdered By: geena Payne on 03-12-2023 Monocytes/100 WBC (Bld) 9.2 % 0-10 [facility] Blood platelet mean volumeOr dered By: Saturninocopensudarshan Payne on 03-12-2023 Platelet mean volume (Bld) [Entitic vol] 9.8 fL 6.2-12.0 [facility] Determination of erythrocyte mean corpuscular volume (MCV)Ordered By: Pete Payne on 03-12-2023 MCV (RBC) [Entitic vol] 93.9 fL 81-99 [facility] Hematocrit Auto (Bld) [Volum e fraction]Ordered By: Pete Payne on 03-12-2023 Hematocrit (Bld) [Volume fraction] 33.7 % 37-47 [facility] Laboratory - Chemistry and C hemistry - challengeOrdered By: Saturninocopensudarshan Payne on 03-12-2023 ALP [Catalytic activity/Vol] 57 U/L 45-117 [facility] ALT [Catalytic activity/Vol] 16 U/L 13-56 [facility] CO2 [Moles/Vol] 25.0 mmol/L 21.0-32.0 [facility] Globulin (S) [Mass/Vol] 3.4 g/dL 2.2-4.2 [facility] Urea nitrogen/Creatinine [Mass ratio] 16.0 mg/mg 10-20 [facility] Laboratory - Hematology and Cell countsOrdered By: Pete Payne on 03-12-2023 Erythrocyte distribution width (RBC) [Entitic vol] 42.9 fL 35.1-43.9 [facility] Erythrocyte distribution width (RBC) [Ratio] 12.4 % 11.6-14.6 [facility] Immature granulocytes/100 WBC (Bld) 0.400 % 0.0-0.9 [facility] Comment on above: IG% - Immature Granu locytes (promyelocytes, myelocytes and metamyelocytes) > 1% indicates that a LEFT SHIFT is Present. MCH (RBC) [Entitic mass] 30.6 pg 27.0-32.0 [facility] Nucleated RBC/100 WBC (Bld) [Ratio] 0 % 0-5 [facility] MCHC Auto (RBC) [Mass/Vol]Or dered By: Pete Payne on 03-12-2023 MCHC (RBC) [Mass/Vol] 32.6 g/dL 32-36 [facility] No Panel InformationOrdered By: Pete Payne on 03-12-2023 Estimated GFR (MDRD) Amer 63 mL/min >60 [facility] Comment on above: GFR Calc Estimated GFR (MDRD) Non-Af Amer 52 mL/min >60 [facility] Comment on above: Non- GFR Calc Thyroid Stimulating Hormone (TSH) 4.75 uIU/mL 0.358-3.74 [facility] Vitamin D 25-Hydroxy 107.1 ng/mL [facility] Comment on above: Vitamin D [...] 10*3/uL 150-450 [facility] Serum or plasma albumin karri urement (mass/volume)Ordered By: Pete Payne on 03-12-2023 Albumin [Mass/Vol] 2.9 g/dL 3.2-5.0 [facility] Serum or plasma albumin/glob ulin mass ratioOrdered By: Pete Payne on 03-12-2023 Albumin/Globulin [Mass ratio] 0.9 {ratio} 0.9-2.4 [facility] Serum or plasma calcium karri urement (mass/volume)Ordered By: Pete Payne on 03-12-2023 Calcium [Mass/Vol] 9.0 mg/dL 8.5-10.1 [facility] Serum or plasma cholesterol in HDL measurement (mass/volume)Ordered By: Pete Payne on 03-12-2023 Cholesterol in HDL [Mass/Vol] 46 mg/dL >40 [facility] Comment on above: The drugs N-Acetylcy steine and Metamizole may falsely depress this assay. Reference Range HDL <40 mg/dL Low HDL Cholesterol HDL >or= 60 mg/dL High HDL Cholesterol Serum or plasma cholesterol in VLDL measurement (mass/volume)Ordered By: Pete Payne on 03-12-2023 Cholesterol in VLDL [Mass/Vol] 27 mg/dL 5-40 [facility] Serum or plasma creatinine m easurement (mass/volume)Ordered By: Pete Payne on 03-12-2023 Creatinine [Mass/Vol] 1.06 mg/dL 0.55-1.02 [facility] Comment on above: The validity of the calculated GFR & GFRAA in patients over 70 years has not been determined. Clinical correlation is essential. Serum or plasma low density lipoprotein (LDL) cholesterol measurement (mass/volume)Ordered By: Pete Beltrane on 03-12-2023 Cholesterol in LDL [Mass/Vol] 33 mg/dL 0-130 [facility] Serum or plasma urea nitroge n measurement (mass/volume)Ordered By: Pete Elmer on 03-12-2023 Urea nitrogen [Mass/Vol] 17 mg/dL 7-18 [facility] Thin prep Papanicolaou smear with manual screeningOrdered By: Nithinsudarshan Payne on 03-12-2023 Thin prep Papanicolaou smear with manual screening 13 U/L 15-37 [facility] Thin prep Papanicolaou smear with manual screening 7 5-15 [facility] Whole blood hemoglobin A1c/t otal hemoglobin ratio (mass fraction)Ordered By: Celestealexiskeishasudarshan Payne on 03-12-2023 HbA1c (Bld) [Mass fraction] 7.2 % 3.8-5.6 [facility] Comment on above: Normal < 5.7 % Predi abetic 5.7 - 6.4 % Diabetic >or= 6.5 % Please note range changes. Absolute lymphocyte countOrd ered By: Nithinsudarshan Pfeifferriteshyulia on 12-01-2022 Lymphocytes Auto (Unsp spec) [#/Vol] 2.66 10*3/uL 0.83-4.51 [facility] Basophil percentageOrdered B y: Pete Kentrellriteshyulia on 12-01-2022 Basophils/100 WBC (Bld) 1.0 % 0-1 [facility] Bilirubin [Mass/Vol] 1.00 mg/dL 0.20-1.00 [facility] Comment on above: For patients on eltr ombopag therapy, use of Dimension [place] TBIL is not recommended. Chloride [Moles/Vol] 100 mmol/L 98-107 [facility] Eosinophils/100 WBC (Bld) 2.3 % 0-5 [facility] Glucose [Mass/Vol] 152 mg/dL 74-106 [facility] Comment on above: Fasting Glucose resu lt greater than or equal to 126 mg/dL suggests DIABETES MELLITUS per A.D.A. criteria. Neutrophils (Bld) [#/Vol] 5.8 10*3/uL 2.0-7.7 [facility] Neutrophils/100 WBC (Bld) 60.2 % 47-70 [facility] Potassium [Moles/Vol] 4.3 mmol/L 3.5-5.1 [facility] Protein [Mass/Vol] 6.1 g/dL 6.4-8.2 [facility] Sodium [Moles/Vol] 138 mmol/L 136-145 [facility] WBC (Bld) [#/Vol] 9.7 10*3/uL 4.4-11.0 [facility] Blood erythrocytes count (nu mber/volume)Ordered By: Pete Payne on 12-01-2022 RBC (Bld) [#/Vol] 3.46 10*6/uL 4.2-5.4 [facility] Blood hemoglobin measurement (mass/volume)Ordered By: Pete Payne on 12-01-2022 Hemoglobin (Bld) [Mass/Vol] 10.8 g/dL 12.0-15.0 [facility] Blood lymphocytes/100 leukoc ytesOrdered By: Pete Payne on 12-01-2022 Lymphocytes/100 WBC (Bld) 27.5 % 19-41 [facility] Blood monocytes/100 leukocyt esOrdered By: Pete Payne on 12-01-2022 Monocytes/100 WBC (Bld) 8.4 % 0-10 [facility] Blood platelet mean volumeOr dered By: Pete Payne on 12-01-2022 Platelet mean volume (Bld) [Entitic vol] 9.9 fL 6.2-12.0 [facility] Determination of erythrocyte mean corpuscular volume (MCV)Ordered By: Pete Payne on 12-01-2022 MCV (RBC) [Entitic vol] 97.1 fL 81-99 [facility] Hematocrit Auto (Bld) [Volum e fraction]Ordered By: Pete Payne on 12-01-2022 Hematocrit (Bld) [Volume fraction] 33.6 % 37-47 [facility] Laboratory - Chemistry and C hemistry - challengeOrdered By: Pete Payne on 12-01-2022 ALP [Catalytic activity/Vol] 60 U/L 45-117 [facility] ALT [Catalytic activity/Vol] 22 U/L 13-56 [facility] CO2 [Moles/Vol] 29.0 mmol/L 21.0-32.0 [facility] Globulin (S) [Mass/Vol] 3.3 g/dL 2.2-4.2 [facility] Urea nitrogen/Creatinine [Mass ratio] 16.1 mg/mg 10-20 [facility] Laboratory - Hematology and Cell countsOrdered By: Pete Payne on 12-01-2022 Erythrocyte distribution width (RBC) [Entitic vol] 44.6 fL 35.1-43.9 [facility] Erythrocyte distribution width (RBC) [Ratio] 12.5 % 11.6-14.6 [facility] Immature granulocytes/100 WBC (Bld) 0.600 % 0.0-0.9 [facility] Comment on above: IG% - Immature Granu locytes (promyelocytes, myelocytes and metamyelocytes) > 1% indicates that a LEFT SHIFT is Present. MCH (RBC) [Entitic mass] 31.2 pg 27.0-32.0 [facility] Nucleated RBC/100 WBC (Bld) [Ratio] 0 % 0-5 [facility] MCHC Auto (RBC) [Mass/Vol]Or dered By: Pete Payne on 12-01-2022 MCHC (RBC) [Mass/Vol] 32.1 g/dL 32-36 [facility] No Panel InformationOrdered By: Pete Payne on 12-01-2022 Estimated GFR (MDRD) Amer 59 mL/min >60 [facility] Comment on above: GFR Calc Estimated GFR (MDRD) Non-Af Amer 49 mL/min >60 [facility] Comment on above: Non- GFR Calc Platelets bldOrdered By: Ramsey Payne on 12-01-2022 Platelets (Bld) [#/Vol] 517 10*3/uL 150-450 [facility] Serum or plasma albumin karri urement (mass/volume)Ordered By: Pete Payne on 12-01-2022 Albumin [Mass/Vol] 2.8 g/dL 3.2-5.0 [facility] Serum or plasma albumin/glob ulin mass ratioOrdered By: Pete Payne on 12-01-2022 Albumin/Globulin [Mass ratio] 0.8 {ratio} 0.9-2.4 [facility] Serum or plasma calcium karri urement (mass/volume)Ordered By: Pete Payne on 12-01-2022 Calcium [Mass/Vol] 9.0 mg/dL 8.5-10.1 [facility] Serum or plasma creatinine m easurement (mass/volume)Ordered By: Pete Payne on 12-01-2022 Creatinine [Mass/Vol] 1.12 mg/dL 0.55-1.02 [facility] Comment on above: The validity of the calculated GFR & GFRAA in patients over 70 years has not been determined. Clinical correlation is essential. Serum or plasma urea nitroge n measurement (mass/volume)Ordered By: Pete Payne on 12-01-2022 Urea nitrogen [Mass/Vol] 18 mg/dL 7-18 [facility] Thin prep Papanicolaou smear with manual screeningOrdered By: geena Payne on 12-01-2022 Thin prep Papanicolaou smear with manual screening 15 U/L 15-37 [facility] Thin prep Papanicolaou smear with manual screening 9 5-15 [facility] Glucose Glucometer (BldC) [M ass/Vol]Ordered By: Dr. Crooks on 11-29-2022 Glucose [Mass/Vol] 95 mg/dL 74-106 [facility] Comment on above: MANAGEMENT OF PATIEN T CARE PER NURSING PROTOCOL Absolute lymphocyte countOrd ered By: Dr. Crooks on 11-28-2022 Lymphocytes Auto (Unsp spec) [#/Vol] 2.74 10*3/uL 0.83-4.51 [facility] Basophil percentageOrdered B y: Dr. Crooks on 11-28-2022 Basophils/100 WBC (Bld) 0.9 % 0-1 [facility] Chloride [Moles/Vol] 104 mmol/L 98-107 [facility] Eosinophils/100 WBC (Bld) 2.2 % 0-5 [facility] Glucose [Mass/Vol] 146 mg/dL 74-106 [facility] Comment on above: Fasting Glucose resu lt greater than or equal to 126 mg/dL suggests DIABETES MELLITUS per A.D.A. criteria. Neutrophils (Bld) [#/Vol] 7.4 10*3/uL 2.0-7.7 [facility] Neutrophils/100 WBC (Bld) 65.0 % 47-70 [facility] Potassium [Moles/Vol] 4.2 mmol/L 3.5-5.1 [facility] Sodium [Moles/Vol] 137 mmol/L 136-145 [facility] WBC (Bld) [#/Vol] 11.4 10*3/uL 4.4-11.0 [facility] Blood erythrocytes count (nu mber/volume)Ordered By: Dr. Crooks on 11-28-2022 RBC (Bld) [#/Vol] 3.62 10*6/uL 4.2-5.4 [facility] Blood hemoglobin measurement (mass/volume)Ordered By: Dr. Crooks on 11-28-2022 Hemoglobin (Bld) [Mass/Vol] 11.2 g/dL 12.0-15.0 [facility] Blood lymphocytes/100 leukoc ytesOrdered By: Dr. Crooks on 11-28-2022 Lymphocytes/100 WBC (Bld) 24.1 % 19-41 [facility] Blood monocytes/100 leukocyt esOrdered By: Dr. Crooks on 11-28-2022 Monocytes/100 WBC (Bld) 7.2 % 0-10 [facility] Blood platelet mean volumeOr dered By: Dr. Crooks on 11-28-2022 Platelet mean volume (Bld) [Entitic vol] 9.3 fL 6.2-12.0 [facility] Determination of erythrocyte mean corpuscular volume (MCV)Ordered By: Dr. Crooks on 11-28-2022 MCV (RBC) [Entitic vol] 96.4 fL 81-99 [facility] Glucose Glucometer (BldC) [M ass/Vol]Ordered By: Dr. Crooks on 11-28-2022 Glucose [Mass/Vol] 146 mg/dL 74-106 [facility] Comment on above: MANAGEMENT OF PATIEN T CARE PER NURSING PROTOCOL Hematocrit Auto (Bld) [Volum e fraction]Ordered By: Dr. Crooks on 11-28-2022 Hematocrit (Bld) [Volume fraction] 34.9 % 37-47 [facility] Laboratory - Chemistry and C hemistry - challengeOrdered By: Dr. Crooks on 11-28-2022 CO2 [Moles/Vol] 28.0 mmol/L 21.0-32.0 [facility] Urea nitrogen/Creatinine [Mass ratio] 18.2 mg/mg 10-20 [facility] Laboratory - Hematology and Cell countsOrdered By: Dr. Crooks on 11-28-2022 Erythrocyte distribution width (RBC) [Entitic vol] 43.3 fL 35.1-43.9 [facility] Erythrocyte distribution width (RBC) [Ratio] 12.4 % 11.6-14.6 [facility] Immature granulocytes/100 WBC (Bld) 0.600 % 0.0-0.9 [facility] Comment on above: IG% - Immature Granu locytes (promyelocytes, myelocytes and metamyelocytes) > 1% indicates that a LEFT SHIFT is Present. MCH (RBC) [Entitic mass] 30.9 pg 27.0-32.0 [facility] Nucleated RBC/100 WBC (Bld) [Ratio] 0 % 0-5 [facility] MCHC Auto (RBC) [Mass/Vol]Or dered By: Dr. Crooks on 11-28-2022 MCHC (RBC) [Mass/Vol] 32.1 g/dL 32-36 [facility] No Panel InformationOrdered By: Dr. Crooks on 11-28-2022 Estimated Creatinine Clearance Calc 37.22 ml/min [facility] Estimated GFR (MDRD) Amer 73 mL/min >60 [facility] Comment on above: GFR Calc Estimated GFR (MDRD) Non-Af Amer 61 mL/min >60 [facility] Comment on above: Non- GFR Calc Platelets bldOrdered By: Dr. Crooks on 11-28-2022 Platelets (Bld) [#/Vol] 445 10*3/uL 150-450 [facility] Serum or plasma calcium karri urement (mass/volume)Ordered By: Dr. Crooks on 05-12-2023 Calcium [Mass/Vol] 8.9 mg/dL 8.5-10.1 [facility] Serum or plasma creatinine m easurement (mass/volume)Ordered By: Dr. Crooks on 11-28-2022 Creatinine [Mass/Vol] 0.93 mg/dL 0.55-1.02 [facility] Comment on above: The validity of the calculated GFR & GFRAA in patients over 70 years has not been determined. Clinical correlation is essential. Serum or plasma urea nitroge n measurement (mass/volume)Ordered By: Dr. Crooks on 11-28-2022 Urea nitrogen [Mass/Vol] 17 mg/dL 7-18 [facility] Thin prep Papanicolaou smear with manual screeningOrdered By: Dr. Crooks on 11-28-2022 Thin prep Papanicolaou smear with manual screening 5 5-15 [facility] COVID-19 virus antigen assay Ordered By: Sylvester Crooks on 11-16-2022 SARS-CoV-2 (COVID-19) Ag IA.rapid Ql (Resp) [facility] COVID-19 virus antigen assay Ordered By: Dr. Crooks on 11-16-2022 SARS-CoV-2 (COVID-19) Ag IA.rapid Ql (Resp) [facility] Culture, urineOrdered By: Dr Néstor Crooks on 11-16-2022 Bacteria identified Cx Nom (U) Escherichia coli [facility] Bacteria identified Cx Nom (U) Klebsiella pneumoniae sp pneum [facility] Basophil percentageOrdered B y: Dr. Crooks on 11-14-2022 Basophil percentage 10-25 SEEN /hpf 0-5 [facility] Bilirubin Test strip Ql (U)O rdered By: Dr. Crooks on 11-14-2022 Bilirubin Ql (U) Negative Negative [facility] Culture, urineOrdered By: Raffi Crooks on 11-14-2022 Bacteria identified Cx Nom (U) Escherichia coli [facility] Bacteria identified Cx Nom (U) Klebsiella pneumoniae sp pneum [facility] Ketones Test strip Ql (U)Ord ered By: Dr. Crooks on 11-14-2022 Ketones Ql (U) Negative Negative [facility] Mucus LM Ql (Urine sed)Order ed By: Dr. Crooks on 11-14-2022 Mucus Ql (Urine sed) 0 SEEN /hpf [facility] Nitrite Test strip Ql (U)Ord ered By: Dr. Crooks on 11-14-2022 Nitrite Ql (U) Negative Negative [facility] No Panel InformationOrdered By: Dr. Crooks on 11-14-2022 Urine Transitional Epithelial Cells 0-5 SEEN /hpf 0-5 [facility] Protein Test strip Ql (U)Ord ered By: Dr. Crooks on 11-14-2022 Protein Ql (U) Negative Negative [facility] Squamous epithelial cells de tection in urine sediment by light microscopyOrdered By: Dr. Crooks on 11-14-2022 Epithelial cells.squamous LM Ql (Urine sed) 0-5 SEEN /hpf 5-10 [facility] Urine blood detectionOrdered By: Dr. Crooks on 11-14-2022 RBC Ql (U) 10 /ul Negative [facility] RBC Ql (U) 0-5 SEEN /hpf 0-5 [facility] Urine clarityOrdered By: Dr. Crooks on 11-14-2022 Clarity (U) Sl. Cloudy Clear [facility] Urine color determinationOrd ered By: Dr. Crooks on 11-14-2022 Color (U) Yellow Yellow [facility] Urine glucose detectionOrder ed By: Dr. Crooks on 11-14-2022 Glucose Ql (U) 100 mg/dl Normal [facility] Urine leukocyte esterase det ection by dipstickOrdered By: Dr. Crooks on 11-14-2022 Leukocyte esterase Test strip Ql (U) 100 /ul Negative [facility] Urine pHOrdered By: Dr. Crooks on 11-14-2022 pH (U) 6.0 [pH] 5.0 - 8.0 [facility] Urine sediment bacteria coun t by microscopy (number/high power field)Ordered By: Dr. Crooks on 11-14-2022 Bacteria LM.HPF (Urine sed) [#/Area] 1 /[HPF] None Seen [facility] Urine specific gravity measu rementOrdered By: Dr. Crooks on 11-14-2022 Specific gravity (U) [Rel density] 1.010 1.002-1.030 [facility] Urobilinogen Auto test strip Ql (U)Ordered By: Dr. Crooks on 11-14-2022 Urobilinogen Ql (U) Normal mg/dl Normal [facility] Absolute lymphocyte countOrd ered By: Dr. Betancur on 11-13-2022 Lymphocytes Auto (Unsp spec) [#/Vol] 3.26 10*3/uL 0.83-4.51 [facility] Basophil percentageOrdered B y: Dr. Betancur on 11-13-2022 Basophils/100 WBC (Bld) 0.7 % 0-1 [facility] Bilirubin [Mass/Vol] 1.00 mg/dL 0.20-1.00 [facility] Comment on above: For patients on eltr ombopag therapy, use of Dimension [place] TBIL is not recommended. Chloride [Moles/Vol] 106 mmol/L 98-107 [facility] Eosinophils/100 WBC (Bld) 1.7 % 0-5 [facility] Glucose [Mass/Vol] 150 mg/dL 74-106 [facility] Comment on above: Fasting Glucose resu lt greater than or equal to 126 mg/dL suggests DIABETES MELLITUS per A.D.A. criteria. Neutrophils (Bld) [#/Vol] 8.7 10*3/uL 2.0-7.7 [facility] Neutrophils/100 WBC (Bld) 66.3 % 47-70 [facility] Potassium [Moles/Vol] 3.9 mmol/L 3.5-5.1 [facility] Protein [Mass/Vol] 5.6 g/dL 6.4-8.2 [facility] Sodium [Moles/Vol] 132 mmol/L 136-145 [facility] WBC (Bld) [#/Vol] 13.2 10*3/uL 4.4-11.0 [facility] Blood erythrocytes count (nu mber/volume)Ordered By: Dr. Betancur on 11-13-2022 RBC (Bld) [#/Vol] 3.32 10*6/uL 4.2-5.4 [facility] Blood hemoglobin measurement (mass/volume)Ordered By: Dr. Betancur on 11-13-2022 Hemoglobin (Bld) [Mass/Vol] 10.5 g/dL 12.0-15.0 [facility] Blood lymphocytes/100 leukoc ytesOrdered By: Dr. Betancur on 11-13-2022 Lymphocytes/100 WBC (Bld) 24.7 % 19-41 [facility] Blood monocytes/100 leukocyt esOrdered By: Dr. Betancur on 11-13-2022 Monocytes/100 WBC (Bld) 6.2 % 0-10 [facility] Blood platelet mean volumeOr dered By: Dr. Betancur on 11-13-2022 Platelet mean volume (Bld) [Entitic vol] 8.6 fL 6.2-12.0 [facility] COVID-19 virus antigen assay Ordered By: Bernice Betancur on 11-13-2022 SARS-CoV-2 (COVID-19) Ag IA.rapid Ql (Resp) [facility] COVID-19 virus antigen assay Ordered By: Dr. Betancur on 11-13-2022 SARS-CoV-2 (COVID-19) Ag IA.rapid Ql (Resp) [facility] Determination of erythrocyte mean corpuscular volume (MCV)Ordered By: Dr. Betancur on 11-13-2022 MCV (RBC) [Entitic vol] 92.5 fL 81-99 [facility] Direct bilirubinOrdered By: Dr. Betancur on 11-13-2022 Bilirubin.direct [Mass/Vol] 0.34 mg/dL 0.00-0.30 [facility] Hematocrit Auto (Bld) [Volum e fraction]Ordered By: Dr. Betancur on 11-13-2022 Hematocrit (Bld) [Volume fraction] 30.7 % 37-47 [facility] Iron measurement (mass/mass) Ordered By: Dr. Betancur on 11-13-2022 Iron (Unsp spec) [Mass/Mass] 48 ug/dL 50-170 [facility] Laboratory - Chemistry and C hemistry - challengeOrdered By: Dr. Betancur on 11-13-2022 ALP [Catalytic activity/Vol] 35 U/L 45-117 [facility] ALT [Catalytic activity/Vol] 19 U/L 13-56 [facility] CO2 [Moles/Vol] 23.0 mmol/L 21.0-32.0 [facility] Cobalamin (Vitamin B12) [Mass/Vol] 583 pg/mL 211-911 [facility] Free T4 [Mass/Vol] 1.48 ng/dL 0.76-1.46 [facility] Globulin (S) [Mass/Vol] 2.8 g/dL 2.2-4.2 [facility] Urea nitrogen/Creatinine [Mass ratio] 17.2 mg/mg 10-20 [facility] Laboratory - Hematology and Cell countsOrdered By: Dr. Betancur on 11-13-2022 Erythrocyte distribution width (RBC) [Entitic vol] 42.5 fL 35.1-43.9 [facility] Erythrocyte distribution width (RBC) [Ratio] 12.7 % 11.6-14.6 [facility] Immature granulocytes/100 WBC (Bld) 0.400 % 0.0-0.9 [facility] Comment on above: IG% - Immature Granu locytes (promyelocytes, myelocytes and metamyelocytes) > 1% indicates that a LEFT SHIFT is Present. MCH (RBC) [Entitic mass] 31.6 pg 27.0-32.0 [facility] Nucleated RBC/100 WBC (Bld) [Ratio] 0 % 0-5 [facility] MCHC Auto (RBC) [Mass/Vol]Or dered By: Dr. Betancur on 11-13-2022 MCHC (RBC) [Mass/Vol] 34.2 g/dL 32-36 [facility] No Panel InformationOrdered By: Dr. Betancur on 11-13-2022 Estimated Creatinine Clearance Calc 35.38 ml/min [facility] Estimated GFR (MDRD) Amer 103 mL/min >60 [facility] Comment on above: GFR Calc Estimated GFR (MDRD) Non-Af Amer 85 mL/min >60 [facility] Comment on above: Non- GFR Calc Thyroid Stimulating Hormone (TSH) 1.14 uIU/mL 0.358-3.74 [facility] Total Iron Binding Capacity 214 ug/dL 250-450 [facility] Platelets bldOrdered By: Dr. Betancur on 11-13-2022 Platelets (Bld) [#/Vol] 370 10*3/uL 150-450 [facility] Serum or plasma albumin karri urement (mass/volume)Ordered By: Dr. Betancur on 11-13-2022 Albumin [Mass/Vol] 2.8 g/dL 3.2-5.0 [facility] Serum or plasma calcium karri urement (mass/volume)Ordered By: Dr. Betancur on 11-13-2022 Calcium [Mass/Vol] 8.3 mg/dL 8.5-10.1 [facility] Serum or plasma creatinine m easurement (mass/volume)Ordered By: Dr. Betancur on 11-13-2022 Creatinine [Mass/Vol] 0.70 mg/dL 0.55-1.02 [facility] Comment on above: The validity of the [...] mg/dL 7-18 [facility] Thin prep Papanicolaou smear with manual screeningOrdered By: Dr. Betancur on 11-13-2022 Thin prep Papanicolaou smear with manual screening 16 U/L 15-37 [facility] Thin prep Papanicolaou smear with manual screening 3 5-15 [facility] Glucose Glucometer (BldC) [M ass/Vol]Ordered By: Dr. Brody on 11-12-2022 Glucose [Mass/Vol] 121 mg/dL 74-106 [facility] Comment on above: MANAGEMENT OF PATIEN T CARE PER NURSING PROTOCOL No Panel InformationOrdered By: Dr. Brody on 11-12-2022 Vitamin D 25-Hydroxy 43.8 ng/mL [facility] Comment on above: Vitamin D 25(OH) Sta tus Range Deficiency <20 ng/mL (50nmol/L) Insufficiency 20 - 30 ng/mL (50 - 75 nmol/L) Sufficiency 30 - 100 ng/mL (75 - 250 nmol/L) Toxicity >100 ng/mL (>250 nmol/L) Serum or plasma cortisol jolanta surement (mass/volume)Ordered By: Dr. Brody on 11-12-2022 Cortisol [Mass/Vol] 28.20 ug/dL 3.44-22.45 [facility] Comment on above: Adult (AM) 5.27 - 22 .45 ug/dL Adult (PM) 3.44 - 16.76 ug/dLPlease note revised CORTISOL reference range effective 2019. Whole blood hemoglobin A1c/t otal hemoglobin ratio (mass fraction)Ordered By: Dr. Betancur on 11-12-2022 HbA1c (Bld) [Mass fraction] 7.0 % 3.8-5.6 [facility] Comment on above: Normal < 5.7 % Predi abetic 5.7 - 6.4 % Diabetic >or= 6.5 % Please note range changes. Absolute lymphocyte countOrd ered By: Dr. Ewing on 11-11-2022 Lymphocytes Auto (Unsp spec) [#/Vol] 4.35 10*3/uL 0.83-4.51 [facility] Basophil percentageOrdered B y: Dr. Ewing on 11-11-2022 Basophil percentage 0 SEEN /hpf 0-5 [facility] Ammonia (P) [Moles/Vol] 16.0 umol/L 11-32 [facility] Basophils/100 WBC (Bld) 0.6 % 0-1 [facility] Bilirubin [Mass/Vol] 1.90 mg/dL 0.20-1.00 [facility] Comment on above: For patients on eltr ombopag therapy, use of Dimension [place] TBIL is not recommended. Chloride [Moles/Vol] 91 mmol/L 98-107 [facility] Eosinophils/100 WBC (Bld) 0.9 % 0-5 [facility] Glucose [Mass/Vol] 159 mg/dL 74-106 [facility] Comment on above: Fasting Glucose resu lt greater than or equal to 126 mg/dL suggests DIABETES MELLITUS per A.D.A. criteria. Neutrophils (Bld) [#/Vol] 8.3 10*3/uL 2.0-7.7 [facility] Neutrophils/100 WBC (Bld) 59.4 % 47-70 [facility] Potassium [Moles/Vol] 3.4 mmol/L 3.5-5.1 [facility] Protein [Mass/Vol] 7.4 g/dL 6.4-8.2 [facility] Sodium [Moles/Vol] 127 mmol/L 136-145 [facility] WBC (Bld) [#/Vol] 13.9 10*3/uL 4.4-11.0 [facility] Bilirubin Test strip Ql (U)O rdered By: Dr. Ewing on 11-11-2022 Bilirubin Ql (U) Negative Negative [facility] Blood erythrocytes count (nu mber/volume)Ordered By: Dr. Ewing on 11-11-2022 RBC (Bld) [#/Vol] 4.23 10*6/uL 4.2-5.4 [facility] Blood hemoglobin measurement (mass/volume)Ordered By: Dr. Ewing on 11-11-2022 Hemoglobin (Bld) [Mass/Vol] 13.5 g/dL 12.0-15.0 [facility] Blood lymphocytes/100 leukoc ytesOrdered By: Dr. Ewing on 11-11-2022 Lymphocytes/100 WBC (Bld) 31.3 % 19-41 [facility] Blood monocytes/100 leukocyt esOrdered By: Dr. Ewing on 11-11-2022 Monocytes/100 WBC (Bld) 7.4 % 0-10 [facility] Blood platelet mean volumeOr dered By: Dr. Ewing on 11-11-2022 Platelet mean volume (Bld) [Entitic vol] 8.8 fL 6.2-12.0 [facility] Determination of erythrocyte mean corpuscular volume (MCV)Ordered By: Dr. Ewing on 11-11-2022 MCV (RBC) [Entitic vol] 88.7 fL 81-99 [facility] Direct bilirubinOrdered By: Dr. Ewing on 11-11-2022 Bilirubin.direct [Mass/Vol] 0.47 mg/dL 0.00-0.30 [facility] Hematocrit Auto (Bld) [Volum e fraction]Ordered By: Dr. Ewing on 11-11-2022 Hematocrit (Bld) [Volume fraction] 37.5 % 37-47 [facility] Ketones Test strip Ql (U)Ord ered By: Dr. Ewing on 11-11-2022 Ketones Ql (U) 5 mg/dl Negative [facility] Laboratory - Chemistry and C hemistry - challengeOrdered By: Dr. Brody on 11-11-2022 Sodium (U) [Moles/Vol] 8 mmol/L Not Establ. [facility] Magnesium [Mass/Vol] 1.6 mg/dL 1.6-2.6 [facility] Laboratory - Chemistry and C hemistry - challengeOrdered By: Dr. Ewing on 11-11-2022 ALP [Catalytic activity/Vol] 45 U/L 45-117 [facility] ALT [Catalytic activity/Vol] 30 U/L 13-56 [facility] CO2 [Moles/Vol] 28.0 mmol/L 21.0-32.0 [facility] Globulin (S) [Mass/Vol] 3.5 g/dL 2.2-4.2 [facility] Urea nitrogen/Creatinine [Mass ratio] 16.2 mg/mg 10-20 [facility] Laboratory - Hematology and Cell countsOrdered By: Dr. Ewing on 11-11-2022 Erythrocyte distribution width (RBC) [Entitic vol] 39.2 fL 35.1-43.9 [facility] Erythrocyte distribution width (RBC) [Ratio] 12.0 % 11.6-14.6 [facility] Immature granulocytes/100 WBC (Bld) 0.400 % 0.0-0.9 [facility] Comment on above: IG% - Immature Granu locytes (promyelocytes, myelocytes and metamyelocytes) > 1% indicates that a LEFT SHIFT is Present. MCH (RBC) [Entitic mass] 31.9 pg 27.0-32.0 [facility] Nucleated RBC/100 WBC (Bld) [Ratio] 0 % 0-5 [facility] MCHC Auto (RBC) [Mass/Vol]Or dered By: Dr. Ewing on 11-11-2022 MCHC (RBC) [Mass/Vol] 36.0 g/dL 32-36 [facility] Mucus LM Ql (Urine sed)Order ed By: Dr. Ewing on 11-11-2022 Mucus Ql (Urine sed) 0 SEEN /hpf [facility] Nitrite Test strip Ql (U)Ord ered By: Dr. Ewing on 11-11-2022 Nitrite Ql (U) Negative Negative [facility] No Panel InformationOrdered By: Dr. Ewing on 11-11-2022 Estimated Creatinine Clearance Calc 27.90 ml/min [facility] Estimated GFR (MDRD) Amer 50 mL/min >60 [facility] Comment on above: GFR Calc Estimated GFR (MDRD) Non-Af Amer 41 mL/min >60 [facility] Comment on above: Non- GFR Calc Troponin I High Sensitivity 13 pg/mL 3.0-54.0 [facility] Comment on above: Please Note: New Denia t Units and Gender Specific Reference Ranges. For more information see Policy Stat Procedure [place] High Sensitivity Troponin (TNIH) and attachments. Platelets bldOrdered By: Dr. Ewing on 11-11-2022 Platelets (Bld) [#/Vol] 506 10*3/uL 150-450 [facility] Protein Test strip Ql (U)Ord ered By: Dr. Ewing on 11-11-2022 Protein Ql (U) Negative Negative [facility] Serum or plasma albumin karri urement (mass/volume)Ordered By: Dr. Ewing on 11-11-2022 Albumin [Mass/Vol] 3.9 g/dL 3.2-5.0 [facility] Serum or plasma calcium karri urement (mass/volume)Ordered By: Dr. Ewing on 11-11-2022 Calcium [Mass/Vol] 9.9 mg/dL 8.5-10.1 [facility] Serum or plasma creatinine m easurement (mass/volume)Ordered By: Dr. Ewing on 11-11-2022 Creatinine [Mass/Vol] 1.30 mg/dL 0.55-1.02 [facility] Comment on above: The validity of the calculated GFR & GFRAA in patients over 70 years has not been determined. Clinical correlation is essential. Serum or plasma urea nitroge n measurement (mass/volume)Ordered By: Dr. Ewing on 11-11-2022 Urea nitrogen [Mass/Vol] 21 mg/dL 7-18 [facility] Serum or plasma uric acid me asurement (mass/volume)Ordered By: Dr. Brody on 11-11-2022 Urate [Mass/Vol] 4.3 mg/dL 2.6-6.0 [facility] Comment on above: The drugs N-Acetylcy steine and Metamizole may falsely depress this assay. Squamous epithelial cells de tection in urine sediment by light microscopyOrdered By: Dr. Ewing on 11-11-2022 Epithelial cells.squamous LM Ql (Urine sed) 0 SEEN /hpf 5-10 [facility] Thin prep Papanicolaou smear with manual screeningOrdered By: Dr. Brody on 11-11-2022 Thin prep Papanicolaou smear with manual screening 277 mOsm/KG 280-301 [facility] Thin prep Papanicolaou smear with manual screeningOrdered By: Dr. Ewing on 11-11-2022 Thin prep Papanicolaou smear with manual screening 25 U/L 15-37 [facility] Thin prep Papanicolaou smear with manual screening 8 5-15 [facility] Urine blood detectionOrdered By: Dr. Ewing on 11-11-2022 RBC Ql (U) Negative Negative [facility] RBC Ql (U) 0 SEEN /hpf 0-5 [facility] Urine clarityOrdered By: Dr. Ewing on 11-11-2022 Clarity (U) Clear Clear [facility] Urine color determinationOrd ered By: Dr. Ewing on 11-11-2022 Color (U) Yellow Yellow [facility] Urine glucose detectionOrder ed By: Dr. Ewing on 11-11-2022 Glucose Ql (U) Normal mg/dl Normal [facility] Urine leukocyte esterase det ection by dipstickOrdered By: Dr. Ewing on 11-11-2022 Leukocyte esterase Test strip Ql (U) Negative Negative [facility] Urine osmolality measurement Ordered By: Dr. Brody on 11-11-2022 Osmolality (U) [Osmolality] 227 mOsm/KG >50 [facility] Comment on above: Normal Urine Referen ce Ranges Random: 50 - 1200 mOsm/kg H20 depending on fluid intake Random: >850 mOsm/kg after 12 hour fluid restriction 24 hour: ~300 - 900 mOsm/kg H2O Urine pHOrdered By: Dr. Atiya bender on 11-11-2022 pH (U) 6.0 [pH] 5.0 - 8.0 [facility] Urine sediment bacteria coun t by microscopy (number/high power field)Ordered By: Dr. Ewing on 11-11-2022 Bacteria LM.HPF (Urine sed) [#/Area] 0 /[HPF] None Seen [facility] Urine specific gravity measu rementOrdered By: Dr. Ewing on 11-11-2022 Specific gravity (U) [Rel density] 1.010 1.002-1.030 [facility] Urobilinogen Auto test strip Ql (U)Ordered By: Dr. Ewing on 11-11-2022 Urobilinogen Ql (U) Normal mg/dl Normal [facility] Vital Signs Date Time Vital Sign Value Performing Clinician Faci lity 05-05-2025 10:47-0400 Body height 147.[address] Pete Payne MD Work Phone: [facility] 11-04-2024 03:00-0400 Respiratory rate 16 /min Dr. Pete Payne MD Work Phone: [facility] 11-04-2024 00:21-0400 Body temperature 98.2 [degF] Dr. Pete Payne MD Work Phone: [facility] 11-04-2024 00:21-0400 Diastolic blood pressure 60 mm[Hg] Dr. Peet Payne MD Work Phone: [facility] 11-04-2024 00:21-0400 Heart rate 84 /min Dr. Pete Payne MD Work Phone: [facility] 11-04-2024 00:21-0400 SaO2% (BldA) [Mass fraction] 97 % Dr. Pete Payne MD Work Phone: [facility] 11-04-2024 00:21-0400 Systolic blood pressure 143 mm[Hg] Dr. Pete Payne MD Work Phone: [facility] 11-03-2024 21:08-0400 Body height 147.[address] Pete Payne MD Work Phone: [facility] 11-03-2024 21:08-0400 Body mass index (BMI) [Ratio] 29.4 kg/m2 Dr. Pete Payne MD Work Phone: [facility] 11-03-2024 21:08-0400 Body weight 63.[address] Pete Payne MD Work Phone: [facility] 07-25-2023 13:00-0500 Body temperature 97.7 [degF] Dr. Pete Payne Work Phone: [facility] 07-25-2023 13:00-0500 Diastolic blood pressure 74 mm[Hg] Dr. Pete Payen Work Phone: [facility] 07-25-2023 13:00-0500 Heart rate 86 /min Dr. Pete Payne Work Phone: [facility] 07-25-2023 13:00-0500 Respiratory rate 16 /min Dr. Pete Payne Work Phone: [facility] 07-25-2023 13:00-0500 SaO2% (BldA) [Mass fraction] 98 % Dr. Pete Payne Work Phone: [facility] 07-25-2023 13:00-0500 Systolic blood pressure 136 mm[Hg] Dr. Pete Payne Work Phone: [facility] 07-25-2023 08:00-0500 Body height 147.[address] Pete Payne Work Phone: [facility] 07-25-2023 08:00-0500 Body mass index (BMI) [Ratio] 29.2 kg/m2 Dr. Pete Payne Work Phone: [facility] 07-25-2023 08:00-0500 Body weight 63.[address] Pete Payne Work Phone: [facility] 01-20-2023 03:50-0400 Diastolic blood pressure 61 mm[Hg] Dr. Nancy Ewing Work Phone: [facility] 01-20-2023 03:50-0400 Heart rate 78 /min Dr. Nancy Ewing Work Phone: [facility] 01-20-2023 03:50-0400 Respiratory rate 18 /min Dr. Nancy Ewing Work Phone: [facility] 01-20-2023 03:50-0400 SaO2% (BldA) [Mass fraction] 97 % Dr. Nancy Ewing Work Phone: 1(206)577-065995 [place] [address] 01-20-2023 03:50-0400 Systolic blood pressure 146 mm[Hg] Dr. Nancy Ewing Work Phone: 6(947)311-339995 [place] [address] 01-20-2023 02:01-0400 Body height 147.[address] Nancy Ewing Work Phone: 8(972)921-623061 [address] 01-20-2023 02:01-0400 Body mass index (BMI) [Ratio] 26.9 kg/m2 Dr. Nancy Ewing Work Phone: 4(258)514-368395 [place] [address] 01-20-2023 02:01-0400 Body temperature 97.5 [degF] Dr. Nancy Ewing Work Phone: [facility] 01-20-2023 02:01-0400 Body weight 58.[address] Nancy Ewing Work Phone: 4(689)864-774995 [place] [address] 11-29-2022 09:42-0400 Heart rate 92 /min Dr. Nancy Ewing Work Phone: 5(417)266-070095 [place] [address] 11-29-2022 09:42-0400 Respiratory rate 16 /min Dr. Nancy Ewing Work Phone: [facility] 11-29-2022 09:42-0400 SaO2% (BldA) [Mass fraction] 97 % Dr. Nancy Ewing Work Phone: 9(147)369-073795 [place] [address] 11-29-2022 09:41-0400 Body temperature 97.6 [degF] Dr. Nancy Ewing Work Phone: 1(391)286-276695 [place] [address] 11-29-2022 09:41-0400 Diastolic blood pressure 59 mm[Hg] Dr. Nancy Ewing Work Phone: 1(443)993-970305 [place] [address] 11-29-2022 09:41-0400 Systolic blood pressure 144 mm[Hg] Dr. Nancy Ewing Work Phone: 1(975)078-793505 [place] [address] 11-28-2022 13:27-0400 Body temperature 97.1 [degF] Dr. Nancy Ewing Work Phone: 0(845)052-842305 [place] [address] 11-28-2022 13:27-0400 Diastolic blood pressure 61 mm[Hg] Dr. Nancy Ewing Work Phone: 9(433)642-723805 [place] [address] 11-28-2022 13:27-0400 Heart rate 65 /min Dr. Nancy Ewing Work Phone: 7(570)016-256805 [place] [address] 11-28-2022 13:27-0400 Respiratory rate 16 /min Dr. Nancy Ewing Work Phone: 7(279)802-969605 [place] [address] 11-28-2022 13:27-0400 SaO2% (BldA) [Mass fraction] 95 % Dr. Nancy Ewing Work Phone: 0(873)981-221905 [place] [address] 11-28-2022 13:27-0400 Systolic blood pressure 133 mm[Hg] Dr. Nancy Ewing Work Phone: 5(803)252-146205 [place] [address] 11-26-2022 14:37-0400 Body height 147.[address] Nancy Ewing Work Phone: 8(506)338-410205 [place] [address] 11-26-2022 14:37-0400 Body weight 54.[address] Nancy Ewing Work Phone: 0(285)759-637605 [place] [address] 11-25-2022 12:48-0400 Body mass index (BMI) [Ratio] 25 kg/m2 Dr. Nancy Ewing Work Phone: 5(203)909-044705 [place] [address] 11-13-2022 14:35-0400 Body temperature 98 [degF] Dr. Nancy Ewing Work Phone: 0(890)468-933105 [place] [address] 11-13-2022 14:35-0400 Diastolic blood pressure 48 mm[Hg] Dr. Nancy Ewing Work Phone: 4(270)297-940005 [place] [address] 11-13-2022 14:35-0400 Heart rate 71 /min Dr. Nancy Ewing Work Phone: 8(992)257-029405 [place] [address] 11-13-2022 14:35-0400 Respiratory rate 18 /min Dr. Nancy Ewing Work Phone: 6(931)402-385205 [place] [address] 11-13-2022 14:35-0400 SaO2% (BldA) [Mass fraction] 100 % Dr. Nancy Ewing Work Phone: 4(708)210-145605 [place] [address] 11-13-2022 14:35-0400 Systolic blood pressure 123 mm[Hg] Dr. Nancy Ewing Work Phone: 6(628)250-278305 [place] [address] 11-12-2022 12:32-0400 Body height 147.[address] Nancy Ewing Work Phone: 3(346)566-319605 [place] [address] 11-12-2022 12:32-0400 Body weight 55.[address] Nancy Ewing Work Phone: 1(858)712-987205 [place] [address] 11-11-2022 22:57-0400 Body mass index (BMI) [Ratio] 25.5 kg/m2 Dr. Nancy Ewing Work Phone: 5(196)364-202705 [place] [address] 11-11-2022 21:44-0400 Body temperature 97.8 [degF] Dr. Nancy Ewing Work Phone: 1(204)628-275805 [place] [address] 11-11-2022 21:44-0400 Diastolic blood pressure 60 mm[Hg] Dr. Nancy Ewing Work Phone: 2(158)769-834605 [place] [address] 11-11-2022 21:44-0400 Heart rate 75 /min Dr. Nancy Ewing Work Phone: 5(891)099-603105 [place] [address] 11-11-2022 21:44-0400 Respiratory rate 17 /min Dr. Nancy Ewing Work Phone: 0(640)779-170405 [place] [address] 11-11-2022 21:44-0400 SaO2% (BldA) [Mass fraction] 100 % Dr. Nancy Ewing Work Phone: [facility] 11-11-2022 21:44-0400 Systolic blood pressure 134 mm[Hg] Dr. Nancy Ewing Work Phone: [facility] 11-11-2022 16:37-0400 Body height 147.[address] Nancy Ewing Work Phone: [facility] 11-11-2022 16:37-0400 Body mass index (BMI) [Ratio] 26.2 kg/m2 Dr. Nancy Ewing Work Phone: [facility] 11-11-2022 16:37-0400 Body weight 56.[address] Nancy Ewing Work Phone: [facility] Encounters Encounter Date Encounter Type Care Provider Facility Start: 05-15-2025 ambulatory Pete Payen [facility] ty:[facility] Start: 05-02-2025 Registered Referred Pete Payne MD -[facility] Start: 05-02-2025 End: 05-02-2025 [facility] Start: 04-30-2025 Registered Referred [facility] [place] Start: 04-30-2025 End: 04-30-2025 ambulatory [facility] Facility:[facility] Start: 03-28-2025 End: 03-28-[address] Pete Payne MD Work Phone: -[facility] Start: 03-28-2025 End: 03-28-[address] Pete Payne MD -[facility] Work Phone: Start: 03-21-2025 Registered Referred Pete Payne MD -[facility] Start: 03-21-2025 End: 03-21-2025 [facility] Start: 03-15-2025 [facility] Start: 03-15-2025 End: 03-15-2025 ambulatory Pete Payne Facility:[facility] Start: 02-23-2025 End: 02-23-[address] Pete Payne MD Work Phone: [facility] Start: 02-23-2025 End: 02-23-2025 Patient encounter procedure Mateo CRANDALL [facility] Work Phone: Start: 02-21-2025 ambulatory Pete Payne Facili ty:[facility] Start: 02-21-2025 [facility] Start: 02-06-2025 End: 02-06-[address] Pete Payne MD Work Phone: -[facility] Start: 02-06-2025 End: 02-06-2025 [facility] Start: 02-06-2025 [facility] Start: 02-06-2025 End: 02-06-2025 ambulatory Pete Payne Facility:[facility] Start: 01-17-2025 End: 01-17-[address] Pete Payne MD Work Phone: [facility] Start: 01-17-2025 End: 01-17-[address] Pete Payne MD [facility] Work Phone: Start: 01-13-2025 [facility] Start: 01-13-2025 End: 01-13-2025 ambulatory Saturninoanne Payne Facility:[facility] Start: 01-03-2025 End: 01-03-[address] Pete Payne MD Work Phone: [facility] Start: 01-03-2025 End: 01-03-2025 Patient encounter procedure Poppy Mccracken NP-C -[facility] Work Phone: Start: 12-26-2024 ambulatory Pete Payne Facili ty:[facility] Start: 12-26-2024 Registered Referred Pete Virk Start: 12-13-2024 End: 12-13-[address] Pete Payne MD Work Phone: [facility] Work Phone: Start: 12-13-2024 End: 12-13-2024 Departed Referred Pete Virk Start: 12-13-2024 Registered Referred Pete Virk Start: 12-13-2024 End: 12-13-2024 ambulatory Pete Payne Facility:[facility] Start: 12-06-2024 End: 12-06-[address] Pete Payne MD Work Phone: [facility] Start: 12-06-2024 End: 12-06-[address] Pete Payne MD -[facility] Work Phone: Start: 11-22-2024 End: 11-22-[address] Pete Payne MD Work Phone: [facility] Work Phone: Start: 11-22-2024 End: 11-22-2024 Departed Referred Pete Virk Start: 11-22-2024 Registered Referred Pete Virk Start: 11-22-2024 End: 11-22-2024 ambulatory Pete Payne Facility:[facility] Start: 11-14-2024 End: 11-14-[address] Pete Payne MD Work Phone: [facility] Work Phone: Start: 11-14-2024 End: 11-14-2024 Departed Referred Pete Virk Start: 11-14-2024 End: 11-14-2024 [facility] Start: 11-03-2024 End: 11-04-2024 Emergency department patient visit Dr. Pete Payne MD Work Phone: -Emergency Department Work Phone: Start: 10-21-2024 End: 10-21-2024 ambulatory Poppy Mccracken Facility:[facility] Start: 10-21-2024 End: 10-21-2024 Patient encounter procedure Poppy Mccracken [employer]- -[facility] Work Phone: Start: 10-17-2024 End: 10-17-[address] Pete Payne MD Work Phone: [facility] Work Phone: Start: 10-17-2024 End: 10-17-2024 Departed Referred Pete Virk Start: 10-17-2024 Registered Referred Pete Virk Start: 10-17-2024 End: 10-17-2024 ambulatory Pete Payne Facility:[facility] Start: 10-10-2024 End: 10-10-[address] Pete Payne MD Work Phone: [facility] Work Phone: Start: 10-10-2024 End: 10-10-2024 Departed Referred Pete Virk Start: 10-10-2024 Registered Referred Pete Virk Start: 10-10-2024 End: 10-10-2024 ambulatory Pete ROBERTS Facility:[facility] Start: 10-06-2024 End: 10-06-[address] Pete Payne MD Work Phone: [facility] Work Phone: Start: 10-06-2024 End: 10-06-2024 Departed Referred Pete Virk Start: 10-06-2024 Registered Referred Pete ZunigaEllie Virk Start: 10-06-2024 End: 10-06-2024 ambulatory Efgeena Payne OLS Facility:[facility] Start: 10-03-2024 End: 10-03-[address] Pete Payne MD Work Phone: [facility] Work Phone: Start: 10-03-2024 End: 10-03-2024 Departed Referred Pete Virk Start: 10-03-2024 End: 10-03-2024 ambulatory Efgeena Payne OLS Facility:[facility] Start: 09-20-2024 End: 09-20-2024 ambulatory Efewongbe [facility] Facility:[facility] Start: 09-20-2024 End: 09-20-[address] Pete Payne MD -[facility] Work Phone: Start: 09-01-2024 End: 09-01-2024 ambulatory Mateo CRANDALL Facility:[facility] Start: 09-01-2024 End: 09-01-2024 Patient encounter procedure Mateo CRANDALL -[facility] Work Phone: Start: 08-23-2024 ambulatory Efgeena Payne Facili ty:[facility] Start: 08-23-2024 Registered Referred Pete ZunigaEllie Virk Start: 07-11-2024 End: 07-11-2024 Departed Referred Pete Virk Start: 07-11-2024 End: 07-11-2024 ambulatory Efewcopensudarshan Payne Facility:[facility] Start: 06-21-2024 End: 06-21-2024 ambulatory Poppy Mccracken Facility:[facility] Start: 06-21-2024 End: 06-21-2024 Patient encounter procedure Poppy Mccracken [employer]-C -[facility] Work Phone: Start: 05-31-2024 End: 05-31-2024 ambulatory [facility] Facility:[facility] Start: 05-30-2024 End: 05-30-2024 ambulatory [facility] Facility:[facility] Start: 05-24-2024 End: 05-24-2024 ambulatory [facility] Facility:[facility] Start: 08-25-2023 End: 08-25-[address] Pete Payne Work Phone: [facility] Work Phone: Start: 08-25-2023 End: 08-25-[address] Pete Payne Work Phone: [facility] Start: 07-25-2023 End: 07-25-2023 Emergency department patient visit Dr. Pete Payne Work Phone: [facility]-Emergency Department Work Phone: Start: 07-02-2023 End: 07-02-[address] Pete Payne Work Phone: [facility] Work Phone: Start: 06-02-2023 End: 06-02-[address] Pete Payne Work Phone: [facility] Work Phone: Start: 05-04-2023 End: 05-04-[address] Pete Payne Work Phone: [facility] Work Phone: Start: 03-31-2023 End: 03-31-[address] Pete Payne Work Phone: [facility] Work Phone: Start: 03-16-2023 End: 03-16-[address] Pete Payne Work Phone: [facility] Work Phone: Start: 03-16-2023 End: 03-16-[address] Pete Payne Work Phone: [facility] Start: 03-16-[address] Madison Payne Work Phone: [facility] Start: 03-14-2023 End: 03-14-[address] Pete Payne Work Phone: [facility] Work Phone: Start: 03-12-2023 End: 03-12-2023 ambulatory Dr. Pete Payne Work Phone: [facility] Work Phone: Start: 03-12-2023 End: 03-12-[address] Pete Payne Work Phone: [facility] Start: 01-27-2023 End: 01-27-[address] Pete Payne Work Phone: [facility] Work Phone: Start: 01-20-2023 End: 01-20-2023 Emergency department patient visit Dr. Nancy Ewing Work Phone: [facility]Emer[facility] Work Phone: Start: 12-23-2022 End: 12-23-[address] Pete Payne Work Phone: [facility] Work Phone: Start: 12-02-2022 End: 12-02-[address] Nancy Ewing Work Phone: [facility] Work Phone: Start: 12-01-2022 End: 12-01-[address] Nancy Ewing Work Phone: [facility] Work Phone: Start: 12-01-2022 End: 12-01-[address] Nancy Ewing Work Phone: [facility] Start: 11-24-2022 End: 11-24-[address] Nancy Ewing Work Phone: [facility] Work Phone: Start: 11-24-2022 End: 11-24-[address] Nancy Ewing Work Phone: [facility] Start: 11-13-2022 End: 11-29-2022 Evaluation and management of inpatient Dr. Nancy Ewing Work Phone: [facility]-Transitional Care Unit Start: 11-13-2022 Non-patient / Non-visit Dr. Christophe Ewing Work Phone: [facility] Start: 11-12-2022 Non-patient / Non-visit Dr. Christophe Ewing Work Phone: [facility] Start: 11-11-2022 Non-patient / Non-visit Dr. Christophe Ewing Work Phone: [facility] Start: 11-11-2022 End: 11-13-2022 Evaluation and management of inpatient Dr. Nancy Ewing Work Phone: [facility]-Medical Surgical 3 Procedures Date Procedure Procedure Detail Performing Clinician Start: 04-30-2025 [address]ium diff[address] e detection Dr. Pete Payne MD Work Phone: Start: 02-21-2025 Vitamin D, 25-hydrox y measurement [...] Treatment Date Care Activity Detail Author Start: 05-15-2025 Registered Referred Registered Referred -[facility] Start: 11-04-2024 [facility] Start: 11-03-2024 Simple repair f/e/e/n/l/m 2.6cm-5.0 cm RPR F/E/E/N/L/M 2.6-5.0 CM [facility] Start: 07-25-2023 [facility] Start: 01-02-2023 Blood chemistry [facility] Start: 12-26-2022 Blood chemistry [facility] Start: 12-19-2022 Blood chemistry [facility] Start: 12-12-2022 Blood chemistry [facility] Start: 12-05-2022 Blood chemistry [facility] Start: 11-29-2022 Patient discharge [facility] Start: 11-28-2022 Development of care plan [facility] Start: 11-20-2022 [facility] Start: 11-20-2022 [facility] Start: 11-19-2022 Palliative care [facility] Start: 11-19-2022 [facility] Start: 11-18-2022 [facility] Start: 11-17-2022 [facility] Start: 11-16-2022 [facility] Start: 11-15-2022 [facility] Start: 11-14-2022 Developing a treatment plan [facility] Start: 11-14-2022 Speech therapy management [facility] Start: 11-14-2022 Development of care plan [facility] Start: 11-14-2022 End: 11-14-2022 [facility] Start: 11-13-2022 Patient referral to dietitian [facility] Start: 11-13-2022 Speech therapy assessment [facility] Start: 11-13-2022 Following clinical pathway protocol [facility] Start: 11-13-2022 Admission procedure [facility] Start: 11-13-2022 Measuring intake and output [facility] Start: 11-13-2022 Patient referral to dietitian [facility] Start: 11-13-2022 Referral to occupational therapist [facility] Start: 11-13-2022 Referral to service [facility] Start: 11-13-2022 Verification routine [facility] Start: 11-13-2022 Vital signs measurements [facility] Start: 11-13-2022 [facility] Start: 11-13-2022 Patient discharge [facility] Start: 11-12-2022 Vitamin D, 25-hydroxy measurement [facility] Start: 11-12-2022 [facility] Start: 11-12-2022 Patient referral to dietitian [facility] Start: 11-11-2022 Blood chemistry [facility] Start: 11-11-2022 Following clinical pathway protocol [facility] Start: 11-11-2022 Assessment of risk of venous thromboembolism [facility] Start: 11-11-2022 Insertion of catheter into peripheral vein [facility] Start: 11-11-2022 Oxygen therapy [facility] Start: 11-11-2022 Providing care according to standard [facility] Start: 11-11-2022 Provision of activity privileges [facility] Start: 11-11-2022 Referral to occupational therapist [facility] Start: 11-11-2022 Referral to service [facility] Start: 11-11-2022 [facility] Start: 11-11-2022 Verification routine [facility] Start: 11-11-2022 Admission procedure [facility] Start: 11-11-2022 Patient referral to dietitian [facility] Alanine aminotransfe rase [Enzymatic activity/volume] in Serum or Plasma [facility] Albumin [Mass/volume ] in Serum or Plasma [facility] Alkaline phosphatase [Enzymatic activity/volume] in Serum or Plasma [facility] Anion gap measurement [facility] Anion gap measurement [facility] Anion gap measurement [facility] Anion gap measurement [facility] Anion gap measurement [facility] Anion gap measurement [facility] Aspartate aminotrans ferase [Enzymatic activity/volume] in Serum or Plasma [facility] Bilirubin, total measurement [facility] Bilirubin.direct [Mass/volume] in Serum or Plasma [facility] BUN/Creatinine ratio [facility] BUN/Creatinine ratio [facility] BUN/Creatinine ratio [facility] BUN/Creatinine ratio [facility] BUN/Creatinine ratio [facility] BUN/Creatinine ratio [facility] Calcium [Mass/volume ] in Serum or Plasma [facility] Calcium [Mass/volume ] in Serum or Plasma [facility] Calcium [Mass/volume ] in Serum or Plasma [facility] Calcium [Mass/volume ] in Serum or Plasma [facility] Calcium [Mass/volume ] in Serum or Plasma [facility] Calcium [Mass/volume ] in Serum or Plasma [facility] Carbon dioxide, tota l [Moles/volume] in Serum or Plasma [facility] Carbon dioxide, tota l [Moles/volume] in Serum or Plasma [facility] Carbon dioxide, tota l [Moles/volume] in Serum or Plasma [facility] Carbon dioxide, tota l [Moles/volume] in Serum or Plasma [facility] Carbon dioxide, tota l [Moles/volume] in Serum or Plasma [facility] Carbon dioxide, tota l [Moles/volume] in Serum or Plasma [facility] Chloride [Moles/volu me] in Serum or Plasma [facility] Chloride [Moles/volu me] in Serum or Plasma [facility] Chloride [Moles/volu me] in Serum or Plasma [facility] Chloride [Moles/volu me] in Serum or Plasma [facility] Chloride [Moles/volu me] in Serum or Plasma [facility] Chloride [Moles/volu me] in Serum or Plasma [facility] Cortisol [Mass/volum e] in Serum or Plasma [facility] Creatinine [Moles/vo lume] in Serum or Plasma [facility] Creatinine [Moles/vo lume] in Serum or Plasma [facility] Creatinine [Moles/vo lume] in Serum or Plasma [facility] Creatinine [Moles/vo lume] in Serum or Plasma [facility] Creatinine [Moles/vo lume] in Serum or Plasma [facility] Creatinine [Moles/vo lume] in Serum or Plasma [facility] Glucose [Mass/volume ] in Serum or Plasma [facility] Glucose [Mass/volume ] in Serum or Plasma [facility] Glucose [Mass/volume ] in Serum or Plasma [facility] Glucose [Mass/volume ] in Serum or Plasma [facility] Glucose [Mass/volume ] in Serum or Plasma [facility] Glucose [Mass/volume ] in Serum or Plasma [facility] Hematocrit [Volume Fraction] of Blood [facility] Hematocrit [Volume Fraction] of Blood [facility] Hematocrit [Volume Fraction] of Blood [facility] Hematocrit [Volume Fraction] of Blood [facility] Hematocrit [Volume Fraction] of Blood [facility] Hematocrit [Volume Fraction] of Blood [facility] Hemoglobin [Mass/vol ume] in Blood [facility] Hemoglobin [Mass/vol ume] in Blood [facility] Hemoglobin [Mass/vol ume] in Blood [facility] Hemoglobin [Mass/vol ume] in Blood [facility] Hemoglobin [Mass/vol ume] in Blood [facility] Hemoglobin [Mass/vol ume] in Blood [facility] Leukocytes [#/volume ] in Blood [facility] Leukocytes [#/volume ] in Blood [facility] Leukocytes [#/volume ] in Blood [facility] Leukocytes [#/volume ] in Blood [facility] Leukocytes [#/volume ] in Blood [facility] Leukocytes [#/volume ] in Blood [facility] Magnesium [Mass/volu me] in Serum or Plasma [facility] Mean corpuscular hem oglobin concentration determination [facility] Mean corpuscular hem oglobin concentration determination [facility] Mean corpuscular hem oglobin concentration determination [facility] Mean corpuscular hem oglobin concentration determination [facility] Mean corpuscular hem oglobin concentration determination [facility] Mean corpuscular hem oglobin concentration determination [facility] Mean corpuscular hem oglobin determination [facility] Mean corpuscular hem oglobin determination [facility] Mean corpuscular hem oglobin determination [facility] Mean corpuscular hem oglobin determination [facility] Mean corpuscular hem oglobin determination [facility] Mean corpuscular hem oglobin determination [facility] Measurement of renal function [facility] Measurement of renal function [facility] Measurement of renal function [facility] Measurement of renal function [facility] Measurement of renal function [facility] Measurement of renal function [facility] Neutrophil [facility]roph[facility] Neutrophil count [facility] Neutrophil count [facility] Neutrophil count [facility] Neutrophil percent differential count [facility] Neutrophil percent differential count [facility] Neutrophil percent differential count [facility] Neutrophil percent differential count [facility] Neutrophil percent differential count [facility] Neutrophil percent differential count [facility] Patient Education [facility] Work Phone: Patient referral [facility] Work Phone: Platelets [#/volume] in Blood [facility] Platelets [#/volume] in Blood [facility] Platelets [#/volume] in Blood [facility] Platelets [#/volume] in Blood [facility] Platelets [#/volume] in Blood [facility] Platelets [#/volume] in Blood [facility] Potassium [Moles/vol ume] in Serum or Plasma [facility] Potassium [Moles/vol ume] in Serum or Plasma [facility] Potassium [Moles/vol ume] in Serum or Plasma [facility] Potassium [Moles/vol ume] in Serum or Plasma [facility] Potassium [Moles/vol ume] in Serum or Plasma [facility] Potassium [Moles/vol ume] in Serum or Plasma [facility] Red blood cell count [facility] Red blood cell count [facility] Red blood cell count [facility] Red blood cell count [facility] Red blood cell count [facility] Red blood cell count [facility] Red cell distributio n width determination [facility] Red cell distributio n width determination [facility] Red cell distributio n width determination [facility] Red cell distributio n width determination [facility] Red cell distributio n width determination [facility] Red cell distributio n width determination [facility] Sodium [Moles/volume ] in Serum or Plasma [facility] Sodium [Moles/volume ] in Serum or Plasma [facility] Sodium [Moles/volume ] in Serum or Plasma [facility] Sodium [Moles/volume ] in Serum or Plasma [facility] Sodium [Moles/volume ] in Serum or Plasma [facility] Sodium [Moles/volume ] in Serum or Plasma [facility] Total protein measurement [facility] Urate [Mass/volume] in Serum or Plasma [facility] Urea nitrogen [Mass/ volume] in Serum or Plasma [facility] Urea nitrogen [Mass/ volume] in Serum or Plasma [facility] Urea nitrogen [Mass/ volume] in Serum or Plasma [facility] Urea nitrogen [Mass/ volume] in Serum or Plasma [facility] Urea nitrogen [Mass/ volume] in Serum or Plasma [facility] Urea nitrogen [Mass/ volume] in Serum or Plasma [facility] Immunizations Immunization Date Immunization Notes Care Provider Fa cili 07-03-2022 Covid Pfizer [place] t Booster Dr. Nancy Ewing Work Phone: [facility] 06-06-2021 Covid (Pfizer) Dr. Nancy Ewing Work Phone: [facility] 08-16-2020 Covid (Pfizer) Dr. Nancy Ewing Work Phone: [facility] 07-26-2020 Covid (Pfizer) Dr. Nancy Ewing Work Phone: [facility] 07-20-2012 pneumococcal conjuga te vaccine, [address] Nancy Ewing Work Phone: [facility] 07-20-2001 pneumococcal vaccine , unspecified formulation Dr. Nancy Ewing Work Phone: [facility] Payers Date Payer Category Payer Medicaid [id number] 2024 Self-pay [id number] Private Health Insurance [id number] 2001 Medicare MEDICARE PART A B [id number] [facility] [id number] Unknown [id number] [id number]2 Unknown [id number] 2.16.840.1.435560.3.579.2.462 Unknown [id number] 2.16.840.1.022184.3.579.2.462 Unknown [id number] 2.16.840.1.803908.3.579.2.462 Unknown [id number] 2.16.840.1.138262.3.579.2.462 Unknown [id number] 2.16.840.1.181870.3.579.2.462 Unknown [id number] 2.16.840.1.963380.3.579.2.462 Unknown [id number] 2.16.840.1.369515.3.579.2.462 Unknown [id number] 2.16.840.1.011804.3.579.2.462 Unknown [id number] 2.16.840.1.772049.3.579.2.462 Unknown [id number] 2.16.840.1.048402.3.579.2.462 Unknown [id number] 2.16.840.1.216187.3.579.2.462 Unknown [id number] 2.16.840.1.678890.3.579.2.462 Unknown [id number] 2.16.840.1.038436.3.579.2.462 Unknown [id number] 2.16.840.1.716870.3.579.2.462 Unknown [id number] 2.16.840.1.678328.3.579.2.462 Unknown [id number] 2.16.840.1.063488.3.579.2.462 Unknown [id number] 2.16.840.1.563664.3.579.2.462 Unknown [id number] 2.16.840.1.965373.3.579.2.462 Unknown [id number] 2.16.840.1.574042.3.579.2.462 Unknown [id number] 2.16.840.1.436894.3.579.2.462 Unknown [id number] 2.16.840.1.941181.3.579.2.462 Unknown [id number] 2.16.840.1.421384.3.579.2.462 Unknown [id number] 2.16.840.1.003489.3.579.2.462 Unknown [id number] 2.16.840.1.949829.3.579.2.462 Unknown [id number] 2.16.840.1.967653.3.579.2.462 Unknown [id number] 2.16840.1.446045.3.579.2.462 Unknown [id number] 2.16840.1.449715.3.579.2.462 Unknown [id number] 2.16840.1.352210.3.579.2.462 Unknown [id number] 2.16840.1.599304.3.579.2.462 Unknown [id number] 2.16840.1.452576.3.579.2.462 Social History Date Type Detail Facility Start: 11-11-2022 End: 07-25-2023 Tobacco smoking status MIIS Unknown if ever smoked [facility] Start: 11-11-2022 Rare [facility] Start: 11-11-2022 None [facility] Start: 11-11-2022 Homeless [facility] Start: 11-11-2022 Non-smoker [facility] Start: 1935 Sex Assigned At Female [facility] Start: 07-25-2023 End: 05-05-2025 Tobacco smoking status NHIS Never smoked tobacco (finding) [facility] Start: 10-19-2024 End: 11-08-2024 Sex Female (finding) [facility] Sex Female [facility] Goals Date Patient Goal Desired Activity /State Functional Status Date Assessment Result Facility 11-29-2022 Functional status Ambulates [facility] Work Phone: 11-28-2022 Functional status Ambulates [facility] Work Phone: 11-13-2022 Functional status 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 [facility] Work Phone: Mental Status Date Assessment Result Facility 07-25-2023 Cognitive function Voice/Name [facility] Work Phone: 11-29-2022 Cognitive function Voice/Name [facility] Work Phone: 11-27-2022 Cognitive function Voice/Name [facility] Work Phone: 11-26-2022 Cognitive function Appropriate;Cooperativ e [facility] Work Phone: 11-13-2022 Cognitive function Voice/Name [facility] Work Phone: Clinical Notes 11-12-2022 to 11-04-2024 Note Date & Type Note Facility 11-04-2024 Discharge summary Note Date/Time November 04, 2024 12:36am [facility] Medical Records Department [address] [place] [address] Emergency Department Summary 11/03/24 MR#: [id number] Acct: [id number] Name: MAXIME AMARAL Rep #:[id number] : 1935 89 From: Alirio Patel PCP: Dr. Pete Payne MD Status:R EG ER Location: ED HPI HPI - Fall History of Present Illness Chief Complaint: Fall Informant: patient and family Narrative Narrative: Patient brought in by EMS from [facility] witnessed fall head injury. Patient history of dementia ambulatory per son. Mostly wheelchair, can weight-bear transfer. From paperwork gaited bowel with walking. Reports she did walk with a walker minimally a week ago. Reported getting off the commode she turneddown hitting her head on a radiator. No anticoagulants. She is DNR CC as of 2022 from paperwork. She has baseline per son. [facility] Medical History Dry eye syndrome of bilateral [...] mg tablet (Celexa) 10 mg PO DAILY 01/06/ 24 Unknown History Allergy/AdvReac Type Severity Reaction Status [...] clinician: N/A This note was generated with [employer] dictation software. It may contain incorrectwords, spelling, and punctuation that were not noted in checking the note beforesigning. Radiography Diagnostic Testing: Clinical Impression(s) from Imaging Studies Shoulder X-Ray 11/03/24 21:48 IMPRESSION: NO ACUTE FRACTURE OR DISLOCATION. Reading Location: [facility] Brain CT 11/03/24 22:10 IMPRESSION: CHRONIC CHANGES. NO ACUTE FINDINGS. Reading Location: [facility] Cervical Spine CT 11/03/24 22:10 IMPRESSION: NO ACUTE CERVICAL FRACTURE. DEGENERATIVE CHANGES. No acute fracture or subluxation. Reading Location: [facility] Facial/Sinus 11/03/24 22:10 IMPRESSION: Small soft tissue laceration along the right supraorbital region. No acute fracture. [facility] Plan Triage Chief Complaint: Fall Other [...] in 5 to 7 days. Print Language: Prydeinig Disposition Disposition: Home, Self Care What to do if you have Problems For any increased pain, shortness of breath, bleeding, nausea or vomiting, chestpain, or any unexpected problems, contact your Primary Care Provider. Call [facility] ([phone]) or report to the closest Emergency Room. Call 911 if necessary. 11/04/24 0036 <Electronically signed by Alirio Patel> Cosigner Signature (if applicable): CC: Dr. Pete Payne MD ~ Signed [facility] Work Phone: 1(411) 253-816304-18-2025 Discharge summary [facility] Medical Records Department [address] [place] [address] Emergency Department Summary 11/03/24 MR#: [id number] Acct: [id number] Name: MAXIME AMARAL Rep #:[id number] : 1935 89 From: Alirio Patel PCP: Dr. Pete Payne MD Status:R EG ER Location: ED HPI HPI - Fall History of Present Illness Chief Complaint: Fall Informant: patient and family Narrative Narrative: Patient brought in by EMS from [facility] witnessed fall head injury. Patient history of dementia ambulatory per son. Mostly wheelchair, can weight- bear transfer. From paperwork gaited bowel withwalking. Reports she did walk with a walker minimally a week ago. Reported getting off the commode she turneddown hitting her head on a radiator. No anticoagulants. She is DNR CC as of 2022 from paperwork. She has baseline per son. [facility] Medical History Dry eye syndrome of bilateral [...] mg tablet 20 mg PO DAILY tremors 11/1024 History levothyroxine 25 mcg tablet 25 mcg [...] clinician: N/A This note was generated with [employer] dictation software. It may contain incorrectwords, spelling, and punctuation that were not noted in checking the note beforesigning. Radiography Diagnostic Testing: Clinical Impression(s) from Imaging Studies Shoulder X-Ray 11/03/24 21:48 IMPRESSION: NO ACUTE FRACTURE OR DISLOCATION. [facility] 11/03/24 22:10 IMPRESSION: CHRONIC CHANGES. NO ACUTE FINDINGS. Reading [facility] Cervical Spine CT 11/03/24 22:10 IMPRESSION: NO ACUTE CERVICAL FRACTURE. DEGENERATIVE CHANGES. No acute fracture or subluxation. Reading [facility] Facial/Sinus 11/03/24 22:10 IMPRESSION: Small soft tissue laceration along the right supraorbital region. No acute fracture. [facility] T[facility] Chief Complaint: Fall Other [...] in 5 to 7 days. Print Language: Prydeinig Disposition Disposition: Home, Self Care What to do if you have Problems For any increased pain, shortness of breath, bleeding, nausea or vomiting, chestpain, or any unexpected problems, contact your Primary Care Provider. Call [facility] ([phone]) or report tothe closest Emergency Room. Call 911 if necessary. 11/04/24 0036 Cosigner Signature (if applicable): CC: Dr. Pete Payne MD ~ Signed [facility]04-17-2025 Radiology Diagnostic study note [facility] Imaging Services [address] [place], [place] [id number] Spine Cervical without Contras MR#: [id number] Acct: [id number] Name: MAXIME AMARAL Rep #: [id number] : 1935 F 89 From: Steve Sotelo DO PCP: Dr. Pete Payne MD Status: R EG ER Study:Spine Cervical without Contras Date of Exam: 11/03/24 Exam# [id number] Ordering Dr: Alirio Edward DO PROCEDURE: SPINE [...] No acute fracture or subluxation. [facility] CC: Dr. Pete Payne MD; Dr. Alirio Edward DO ~ Investor Relations Director: Signed [facility]04-17-2025 Radiology Diagnostic study note [facility] Imaging Services [address] [place], [place] [id number] Sinus/Facial Bone MR#: [id number] Acct: [id number] Name: MAXIME AMARAL Rep #: [id number] : 1935 F 89 From: Steve Sotelo DO PCP: Dr. Pete Payne MD Status: R EG ER Study:Sinus/Facial Bone Date of Exam: Exam# [id number] Ordering Dr: Alirio Edward DO PROCEDURE: SINUS/FACIAL [...] supraorbital region. No acute fracture. [facility] CC: Dr. Pete Payne MD; Dr. Alirio Edward DO ~ Investor Relations Director: Signed [facility]04-17-2025 Radiology Diagnostic study note [facility] Imaging Services [address] [place] [address] Brain/Head without Contrast MR#: [id number] Acct: [id number] Name: MAXIME AMARAL Rep #: [id number] : 1935 F 89 From: Steve Sotelo DO PCP: Dr. Pete Payne MD Status: R ER Study:Brain/Head without Contrast Date of Exa m: 11/03/24 Exam# [id number] Ordering Dr: Alirio Edward DO PROCEDURE: BRAIN/HEAD [...] CHRONIC CHANGES. NO ACUTE FINDINGS. Reading Location: [facility] CC: Dr. Pete Payne MD; Dr. Alirio Edward DO ~ Investor Relations Director: Signed [facility]04-17-2025 Radiology Diagnostic study note [facility] Imaging Services [address] [facility] [place] [address] Shoulder min 2 Views MR#: [id number] Acct: [id number] Name: MAXIME AMARAL Rep #: [id number] : 1935 F 89 From: Steve Sotelo DO PCP: Dr. Pete Payne MD Status: R EG ER Study:Shoulder min 2 Views Date of Exam: 11/03/24 Exam# [id number] Ordering Dr: Alirio Edward DO PROCEDURE: SHOULDER [...] Payne MD; Dr. Alirio Edward DO ~ Investor Relations Director: Signed [facility]01-06-2024 Discharge summary Author [facility] July 25, 2023 8:48am Note Date/Time July 25, 2023 8: 48am [facility] Medical Records Department [address] [place] [address] Emergency Department Summary 07/25/23 MR#: [id number] Acct: [id number] Name: MAXIME AMARAL Rep #:[id number] : 1935 87 From: Jos Rush DO PCP: Dr. Pete Payne MD Status:R EG ER Location: ED HPI History of Present Illness Chief Complaint: Fall Informant: patient and SNF Narrative Narrative: Patient is a 87-year-old female with history of hypertension hyperlipidemia hypothyroidism type 2 diabetes and debility as well as Alzheimer's disease. Sheis typically A&O x 1. half-way states that she was found on her [...] time but otherwise denies any symptoms PFSH [facility] Medical History Alzheimer's disease, unspecified CKD [...] is otherwise safe to return to the snf Radiography Diagnostic Testing: Clinical Impression(s) from Imaging [...] 6:45 EST Reading Location ID and State: [facility] / [place] Tel , Service support , [...] 8:18 EST Reading Location ID and State: [facility] / [place] Tel , Service support , Left hip [...] your Primary Care Provider. Call [facility] ([phone]) or report to the closest Emergency Room. Call 911 if necessary. 07/25/23 0848 <Electronically signed by Jos Rush DO> Cosigner Signature (if applicable): CC: Dr. Pete Payne MD ~ Signed [facility] Work Phone: 1(466) 559-674007-04-2023 Discharge summary Author [facility] January 20, 2023 4:32am Note Date/Time January 20, 2023 3:43a m [facility] Medical Records Department [address] [place] [address] Emergency Department Summary 01/20/23 MR#: [id number] Acct: [id number] Name: MAXIME AMARAL Rep #:[id number] : 1935 87 From: Jos Rush DO PCP: Dr. Pete Payne MD Status:R EG ER Location: ED HPI History of Present Illness Chief Complaint: Fall Informant: patient and EMS Limited: dementia Narrative Narrative: Patient is a 87-year-old female with past medical history of dementia who stays in a snf in their dementia unit. Nursing reports that patient was reportedly wandering this evening and had a fall. They found the patient awake and alert but with trauma to her head/face. They deny any blood thinners but states secondary to the fall and patient complaining of pain in her knees and shoulders she was sent in for evaluation [facility] Medical History Alzheimer's disease, unspecified Depression, unspecified [...] your Primary Care Provider. Call [facility] ([phone]) or report to the closest Emergency Room. Call 911 if necessary. 01/20/23 0432 <Electronically signed by Jos Rush DO> Cosigner Signature (if applicable): CC: Dr. Pete Payne MD ~ Signed [facility] Work Phone: [phone]) 279-881605-10-[address] Crooks [facility] November 26, 2022 9:10pm Note Date/Time November 26, 2022 9:10p m [facility] Medical Records Department [address] [place] [address] Transfer to [facility] MR#: [id number] Acct: [id number] Name: MAXIME AMARAL Rep #:[id number] : 1935 87 From: Sylvester Crooks MD PCP: ALANNAH BENITO Status:ADM IN Certification of patient admission REQUIRED AT TIME OF ADMISSION. I CERTIFY THAT POST-HOSPITAL ECF SERVICES ARE REQUIRED TO BE GIVEN ON AN IN-PATIENT BASIS BECAUSE OF THE ABOVE NAMED PATIENT'S NEED FOR LONG-TERM CARE ON A CONTINUING BASIS FOR THE CONDITION(S) FOR WHICH HE/SHE WAS RECEIVING IN-PATIENT HOSPITAL SERVICES PRIOR TO HIS/HER TRANSFER TO THE [facility]. 11/26/222109<Electronically signed by Sylvester Crooks MD> Diet [...] for rehabilitation, strengthening, prior to discharge to [facility]. * Debility - PT/OT. * Cognition [...] - Bupropion XL 150mg daily, stable chronic ferry terminal supervisor use, GDR not recommended. * Alzheimer Disease [...] Dao ; Tanisha Henriquez ; Britany White [employer] Instructions Additional Instructions / Restrictions: Discharge to [facility] 11/29/2022, intermediate. Discharge Orders/Prescriptions Prescriptions: [...] Crooks MD> Cosigner Signature (if applicable): CC: [employer] OFFICER-Pérez Tafoya; [employer] OFFICER-C Tanisha Henriquez; [employer] OFFICER-C Britany White; Dr. Steven Dean DO; Dr. Fany Dao MD; ALANNAH BENITO ~ [facility] Work Phone: [phone]) 579-116505-10-[address] Crooks [facility] November 26, 2022 9:09pm Note Date/Time November 26, 2022 9:05p [facility] Medical Records Department [address] [place] [address] Discharge Summary 11/26/222103 MR#: [id number] Acct: [id number] Name: MAXIME AMARAL Rep #:[id number] : 1935 87 From: Sylvester Crooks MD PCP: ALANNAH BENITO Status:ADM IN Location: [place] [address] Providers Date of Admission: 11/13/22 Primary Care [...] for rehabilitation, strengthening, prior to discharge to [facility]. * Debility - PT/OT. * Cognition [...] - Bupropion XL 150mg daily, stable chronic ferry terminal supervisor use, GDR not recommended. * Alzheimer Disease [...] for rehabilitation, strengthening, prior to discharge to [facility]. Discharge to [facility] 11/29/2022, intermediate. Physical Exam Const [...] 11/26/22 14:47 HUSEYIN (Rec: 11/26/22 14:47 HUSEYIN [id number]) Nutrition Malnutrition Evidence of Malnutrition Exists Yes [...] and Uncontrolled pain Additional Instructions: Discharge to [facility] 11/29/2022, intermediate. Meaningful Use Info Meaningful Use Diagnoses (Choose all that apply): None applicable Discharge Plan Admission Admit Date/Time: 11/13/22 16:43 Primary Reason for Your Visit: Debility. Attending Provider: Sylvester Crooks Chi Primary Care Provider: ALANNAH BENITO Consulting Providers: Magnolia Tafoya ; Steven Dean ; Fany Dao ; Tanisha Henriquez ; Britany White [employer] OFFICER Instructions Additional Instructions / Restrictions: Discharge to [facility] 11/29/2022, intermediate. Discharge Orders/Prescriptions Prescriptions: [...] BENITO~ Signed [facility] Work Phone: [phone]) 177-950605-03-2023 History and physical note Author Dr. Crooks [facility] November 19, 2022 5:00pm Note Date/Time November 13, 2022 7:4 6pm [facility] Medical Records Department [address] [place] [address] History & Physical Exam 11/13/221939 MR#: [id number] Acct: [id number] Name: MAXIME AMARAL Rep #:[id number] : 1935 87 From: Sylvester Crooks MD PCP: ALANNAH BENITO Status:ADM IN Location: [facility] TCU10-1 HPI - General General Date of Admission: 11/13/22 Date of Service: 11/13/22 Chief Complaint: Here for rehabilitation. HPI Narrative 11/11/2022 MAXIME AMARAL, is a 87 Female who presents to [facility] Emergency Department with nausea, vomiting, diarrhea. 11/11/2022 [...] for rehabilitation, strengthening, prior to discharge to [facility]. [facility] Medical History Alzheimer's disease, unspecified Depression, [...] for rehabilitation, strengthening, prior to discharge to [facility]. * Debility - PT/OT. * Cognition [...] - Bupropion XL 150mg daily, stable chronic ferry terminal supervisor use, GDR not recommended. * Alzheimer Disease [...] ~* Signed [facility] Work Phone: [phone]) [phone] Crooks [facility] November 14, 2022 7:27pm Note Date/Time November 14, 2022 3:5 3pm [facility] Medical Records Department [address] [place] [address] Progress Note - Pharmacy 11/14/22 1531 MR#: [id number] Acct: [id number] Name: MAXIME AMARAL Rep #:[id number] : 1935 87 From: Roselyn Garzon PCP: ALANNAH BENITO Status:ADM IN Location: [facility] TCU RX Drug Regimen Review Subjective: [...] ~ Signed [facility] Work Phone: [phone]) 539-981904-27-[address] Betancur [facility] November 13, 2022 2:06pm Note Date/Time November 13, 2022 1:5 6pm [facility] Medical Records Department [address] [place] [address] Transfer to [facility] MR#: [id number] Acct: [id number] Name: MAXIME AMARAL Ellie Rep #:[id number] : 1935 87 From: Bernice Betancur MD PCP: ALANNAH BENITO Status:ADM IN Certification of patient admission REQUIRED AT TIME OF ADMISSION. I CERTIFY THAT POST-HOSPITAL ECF SERVICES ARE REQUIRED TO BE GIVEN ON AN IN-PATIENT BASIS BECAUSE OF THE ABOVE NAMED PATIENT'S NEED FOR LONG-TERM CARE ON A CONTINUING BASIS FOR THE [...] presented to [facility] 11/11/2022 with a sodium of 127 at [...] BENITO ~ [facility] Work Phone: [phone]) [phone] Betancur [facility] November 12, 2022 4:53pm Note Date/Time November 12, 2022 7:0 0am [facility] Medical Records Department [address] [place] [address] Progress Note - Hospitalist 11/12/22 0659 MR#: [id number] Acct: [id number] Name: MAXIME AMARAL Rep #:[id number] : 1935 87 From: Bernice Betancur MD PCP: ALANNAH BENITO Status:ADM IN Location: [facility] TG313-9 Reason for Visit Reason for Visit: Diagnoses [...] % (Auto) 59.4, Lymph % (Auto) 31.3, Newton% (Auto) 7.4, Eos % (Auto) 0.9, Baso [...] Clarity Clear, Urine pH 6.0, Ur Specific Concord 1.010, Urine Protein Negative, Urine Glucose (UA) [...] % (Auto) Cancelled, Lymph % (Auto) Cancelled, Newton % (Auto) Cancelled, Eos % (Auto) Cancelled, [...] Drop Cells Cancelled, Ovalocytes Cancelled, Stomatocytes Cancelled, [place] Bodies Cancelled, [place] Cells Cancelled, Bite Cells Cancelled, Crenated Cell [...] % (Auto) 63.6, Lymph % (Auto) 26.7, Newton % (Auto) 7.1, Eos % (Auto) 1.4, [...] Lovenox ordered. Charges/Coding Visit Charges Inpatient E&M: 88807 Subs Hosp L2 11/12/22 1653 <Electronically signed by Bernice Betancur MD> Cosigner Signature (if applicable): CC: ~ Signed [facility] Work Phone: [phone]) [phone] Ewing [facility] November 11, 2022 11:41pm Note Date/Time November 11, 2022 5:3 3pm [facility] Medical Records Department [address] [place] [address] Emergency Department Summary 11/11/22 MR#: [id number] Acct: [id number] Name: MAXIME AMARAL Rep #:[id number] : 1935 87 From: Nancy Ewing MD PCP: ALANNAH BENITO Status:ADM IN Location: [facility]3 NQ645-7 HPI History of Present Illness Chief Complaint: Nausea/Vomiting/Diarrhea Detail of Chief Complaint: Generalized weakness Informant: patient and family Onset/Context/Timing Onset: Weeks Narrative Narrative: Patient presents via EMS from assisted living at [facility]. Son is at bedside and provides much [...] body pain. She denies fever or cough. [facility] Medical History Alzheimer's disease, unspecified Depression, unspecified [...] Medical decision making narrative: Patient placed on equipment monitor phototypesetting. EKG obtained to evaluate for cardiac arrhythmia/ischemia. [...] % (Auto) 59.4 Lymph % (Auto) 31.3 Newton % (Auto) 7.4 Eos % (Auto) 0.9 [...] Color Urine Clarity Urine pH Ur Specific Concord Urine Protein Urine Glucose (UA) Urine Ketones Urine Occult Blood Urine Nitrite Urine Bilirubin Urine Urobilinogen Ur Leukocyte Esterase Urine RBC Urine WBC Ur Squamous Epith Cells Urine Bacteria Urine Mucus 11/11/22 19:47 WBC RBC Hgb Hct MCV MCH MCHC RDW Std Deviation RDW Coeff of Kristal Plt Count MPV Immature Gran % (Auto) Neut % (Auto) Lymph % (Auto) Newton % (Auto) Eos % (Auto) Baso % [...] Clarity Clear Urine pH 6.0 Ur Specific Concord 1.010 Urine Protein Negative Urine Glucose (UA) [...] [Non-Staff] - Disposition Disposition: Acute Care Hospital [facility] What to do if you have Problems For any increased pain, shortness of breath, bleeding, nausea or vomiting, chestpain, or any unexpected problems, contact your Primary Care Provider. Call [facility] ([phone]) or report to the closest Emergency Room. Call 911 if necessary. 11/11/222340 <Electronically signed by Nancy Ewing MD> Cosigner Signature (if applicable): CC: ALANNAH BENITO ~ Signed [facility] Work Phone: [phone]) 362-978904-26-2023 History and physical note Author Dr. Brody [facility] November 11, 2022 10:26pm Note Date/Time November 11, 2022 9:3 3pm [facility] Medical Records Department [address] [place] [address] H&P Exam - Hospitalist 11/11/222132 MR#: [id number] Acct: [id number] Name: MAXIME AMARAL Rep #:[id number] : 1935 87 From: Ryder Brody MD PCP: ALANNAH BENITO Status:ADM IN Location: [facility] FC113-9 HPI - General General Date of Admission: 11/11/22 Date of Service: 11/11/22 Chief Complaint: Abnormal labs HPI Narrative MAXIME AMARAL, is a 87 F with a significant history of hypothyroidism and dementia; and who lives at [facility] medicine facility at [facility] presenting to the emergency department with abnormal [...] the emergency department patient could not urinate. [facility] Medical History Alzheimer's disease, unspecified Depression, [...] % (Auto) 59.4, Lymph % (Auto) 31.3, Newton % (Auto) 7.4, Eos % (Auto) 0.9, [...] Clarity Clear, Urine pH 6.0, Ur Specific Concord 1.010, Urine Protein Negative, Urine Glucose (UA) [...] Lovenox ordered. Charges/Coding Visit Charges Inpatient E&M: 31903 Init Hosp 04/25/23 2226 <Electronically signed by Ryder Brody MD> Cosigner Signature (if applicable): CC: Dr. Ryder Brody MD; ALANNAH BENITO~ Signed [facility] Work Phone: Evaluation note* Diagnosis Onset Date Resolution Status Declining functional status acute Hypokalemia acute Hyponatremia acute Weakness acute Hypertension chronic [facility] Work Phone: Evaluation note* Diagnosis Onset Date Resolution Status Declining functional status acute Hyponatremia acute Hypertension chronic Alzheimer disease acute Debility acute Dehydration acute Depression acute Diabetes mellitus acute Hyperlipidemia acute Hyponatremia acute Hypothyroidism acute Hypertension chronic [facility] Work Phone: Evaluation note* Diagnosis Onset Date Resolution Status Declining functional status acute Hyponatremia acute Hypertension chronic Alzheimer disease acute Debility acute Depression acute Diabetes mellitus acute Hyperlipidemia acute Hypothyroidism acute Hypertension chronic Dehydration resolved Hyponatremia resolved [facility] Work Phone: Evaluation noteNo assessment information available [facility] Work Phone: History and physical note Author Dr. Brody [facility] November 11, 2022 10:26pm Note Date/Time November 11, 2022 9:3 3pm [facility] Medical Records Department [address] [place] [address] H&P Exam - Hospitalist 11/11/222132 MR#: [id number] Acct: [id number] Name: MAXIME AMARAL Rep #:[id number] : 1935 87 From: Ryder Brody MD PCP: ALANNAH BENITO Status:ADM IN Location: [facility] EA207-8 HPI - General General Date of Admission: 11/11/22 Date of Service: 11/11/22 Chief Complaint: Abnormal labs HPI Narrative MAXIME AMARAL, is a 87 F with a significant history of hypothyroidism and dementia; and who lives at assisted medicine facility at [facility] presenting to the emergency department with abnormal [...] the emergency department patient could not urinate. [facility] Medical History Alzheimer's disease, unspecified Depression, [...] % (Auto) 59.4, Lymph % (Auto) 31.3, [place] % (Auto) 7.4, Eos % (Auto) 0.9, [...] Clarity Clear, Urine pH 6.0, Ur Specific [place] 1.010, Urine Protein Negative, Urine Glucose (UA) [...] Lovenox ordered. Charges/Coding Visit Charges Inpatient E&M: 14340 Init Hosp L3 11/11/223 <Electronically signed by Ryder Brody MD> Cosigner Signature (if applicable): CC: Dr. Ryder Brody MD; ALANNAH BENITO~ Signed [facility] Work Phone: Hospital Discharge instructions Additional Instructions CT head face and neck negative. Right shoulder x-ray negative. 7 sutures placed. Have removed in 5 to 7 days.[facility] Work Phone: Reason for referral (narrative)No reason for referral information availableWParma Community [facility] Work Phone: Chief Complaint and Reason [...] Complaint MONTHLY EXAM UNWITNESSED FALL MONTHLY EXAM LONG-TERM LAB WORK MONTHLY EXAM NURISNG HOME LABWORK Chief Complaint MONTHLY EXAM MONTHLY EXAM MONTHLY EXAM FALL Chief Complaint MONTHLY EXAM MONTHLY EXAM FALL LABWORK Chief Complaint Admit Date NEW CONCERN June 21, 2024 5 :08pm LONG-TERM LAB WORK July 11 5:00am LONG-TERM LAB WORK August 23, 2024 5:00am MONTHLY EXAM September 01, 2024 11:29am LABWORK October 03, 2024 5:0 0am Chief Complaint Admit Date LONG-TERM LAB WORK July 11 5:00am LONG-TERM LAB WORK August 23, 2024 5:00am MONTHLY EXAM September 01, 2024 11:29am MONTHLY EXAM September 20, 2024 3:13 pm LABWORK October 03, 2024 5:0 0am LONG-TERM LAB WORK October 06, 2024 5 :00am Chief Complaint Admit Date LONG-TERM LAB WORK July 11 5:00am LONG-TERM LAB WORK August 23, 2024 5:00am MONTHLY EXAM September 01, 2024 11:29am MONTHLY EXAM September 20, 2024 3:13 pm LABWORK October 03, 2024 5:0 0am LONG-TERM LAB WORK October 06, 2024 5 :00am LABWORK October 10, 2024 5:0 0am Chief Complaint Admit Date LONG-TERM LAB WORK July 11 5:00am LONG-TERM LAB WORK August 23, 2024 5:00am MONTHLY EXAM September 01, 2024 11:29am MONTHLY EXAM September 20, 2024 3:13 pm LABWORK October 03, 2024 5:0 0am LONG-TERM LAB WORK October 06, 2024 5 :00am LABWORK October 10, 2024 5:0 0am FALL, LACERATION November 03, 2024 9:0 6pm Chief Complaint Admit Date LONG-TERM LAB WORK July 11 5:00am LONG-TERM LAB WORK August 23, 2024 5:00am MONTHLY EXAM September 01, 2024 11:29am MONTHLY EXAM September 20, 2024 3:13 pm LABWORK October 03, 2024 5:0 0am LONG-TERM LAB WORK October 06, 2024 5 :00am LABWORK October 10, 2024 5:0 0am LONG-TERM LAB WORK October 17, 2024 5 :00am FALL, LACERATION November 03, 2024 9:0 6pm Chief Complaint Admit Date MONTHLY EXAM September 01, 2024 11:29am MONTHLY EXAM September 20, 2024 3:13 pm LABWORK October 03, 2024 5:0 0am LONG-TERM LAB WORK October 06, 2024 5 :00am LABWORK October 10, 2024 5:0 0am LONG-TERM LAB WORK October 17, 2024 5 :00am MONTHLY EXAM October 21, 2024 1:47 pm FALL, LACERATION November 03, 2024 9:0 6pm LONG-TERM LAB WORK November 14, 2024 4 :00am LONG-TERM LAB WORK November 22, 2024 5:00 am LONG-TERM LAB WORK December 13, 2024 5:0 0am Chief Complaint Admit Date LONG-TERM LAB WORK August 23, 2024 5:00am MONTHLY EXAM September 01, 2024 11:29am MONTHLY EXAM September 20, 2024 3:13 pm LABWORK October 03, 2024 5:0 0am LONG-TERM LAB WORK October 06, 2024 5 :00am LABWORK October 10, 2024 5:0 0am LONG-TERM LAB WORK October 17, 2024 5 :00am MONTHLY EXAM October 21, 2024 1:47 pm FALL, LACERATION November 03, 2024 9:0 6pm LONG-TERM LAB WORK November 14, 2024 4 :00am LONG-TERM LAB WORK November 22, 2024 5:00 am Chief Complaint Admit Date LONG-TERM LAB WORK October 06, 2024 5 :00am LABWORK October 10, 2024 5:0 0am LONG-TERM LAB WORK October 17, 2024 5 :00am MONTHLY EXAM October 21, 2024 1:47 pm FALL, LACERATION November 03, 2024 9:0 6pm LONG-TERM LAB WORK November 14, 2024 4 :00am LONG-TERM LAB WORK November 22, 2024 5:00 am MONTHLY EXAM December 06, 2024 4:15p m LONG-TERM LAB WORK December 13, 2024 5:0 0am LONG-TERM LAB WORK December 26, 2024 4:0 0am Chief Complaint Admit Date LONG-TERM LAB WORK October 06, 2024 5 :00am LABWORK October 10, 2024 5:0 0am LONG-TERM LAB WORK October 17, 2024 5 :00am MONTHLY EXAM October 21, 2024 1:47 pm FALL, LACERATION November 03, 2024 9:0 6pm LONG-TERM LAB WORK November 14, 2024 4 :00am LONG-TERM LAB WORK November 22, 2024 5:00 am MONTHLY EXAM December 06, 2024 4:15p m LONG-TERM LAB WORK December 13, 2024 5:0 0am LONG-TERM LAB WORK December 26, 2024 4:0 0am MONTHLY EXAM January 03, 2025 6:30 pm Chief Complaint Admit Date FALL, LACERATION November 03, 2024 9:0 6pm LONG-TERM LAB WORK November 14, 2024 4 :00am LONG-TERM LAB WORK November 22, 2024 5:00 am MONTHLY EXAM December 06, 2024 4:15p m LONG-TERM LAB WORK December 13, 2024 5:0 0am LONG-TERM LAB WORK December 26, 2024 4:0 0am MONTHLY EXAM January 03, 2025 6:30 pm LONG-TERM LAB WORK January 13, 2025 5: 00am Monthly Exam January 17, 2025 5:25p m LABWORK February 06, 2025 5:00 am Chief Complaint Admit Date LONG-TERM LAB WORK November 22, 2024 5:00 am MONTHLY EXAM December 06, 2024 4:15p m LONG-TERM LAB WORK December 13, 2024 5:0 0am LONG-TERM LAB WORK December 26, 2024 4:0 0am MONTHLY EXAM January 03, 2025 6:30 pm LONG-TERM LAB WORK January 13, 2025 5: 00am Monthly Exam January 17, 2025 5:25p m LABWORK February 06, 2025 5:00 am LONG-TERM LAB WORK February 21, 2025 5 :00am MONTHLY EXAM February 23, 2025 10: 35am Chief Complaint Admit Date LONG-TERM LAB WORK December 26, 2024 4:0 0am MONTHLY EXAM January 03, 2025 6:30 pm LONG-TERM LAB WORK January 13, 2025 5: 00am Monthly Exam January 17, 2025 5:25p m LABWORK February 06, 2025 5:00 am LONG-TERM LAB WORK February 21, 2025 5 :00am MONTHLY EXAM February 23, 2025 10: 35am LONG-TERM LAB WORK March 15, 2025 5:00am LONG-TERM LAB WORK March 21 5:00am Chief Complaint Admit Date Monthly Exam January 17, 2025 5:25p m LABWORK February 06, 2025 5:00 am LONG-TERM LAB WORK February 21, 2025 5 :00am MONTHLY EXAM February 23, 2025 10: 35am LONG-TERM LAB WORK March 15, 2025 5:00am LONG-TERM LAB WORK March 21 5:00am MONTHLY EXAM March 28, 2025 12:49pm LONG-TERM LAB WORK May 02, 2025 4:18am Advance Directives No Advanced Directives Records Found Advance Directive Response Recorded Date/ Time Name of Medical Power of Hat And Cap Sewer ? November 11, 2022 4:49pm Living Will Yes November 11, 2022 4:49pm Power of Hat And Cap Sewer Yes November 11 4:49pm Advance Directive Response Recorded Date/ Time Name of Medical Power of Hat And Cap Sewer Matilda Pritchett November 11, 2022 10:59pm Living Will Yes November 11, 2022 10:59pm Power of Hat And Cap Sewer Yes November 11 10:59pm Advance Directive Response Recorded Date/ Time Name of Medical Power of Hat And Cap Sewer Matilda Pritchett November 11, 2022 10:59pm Name of Medical Power of Hat And Cap Sewer christine Pritchett November 14, 2022 10:44am Living Will Yes November 14, 2022 10:44am Power of Hat And Cap Sewer Yes November 14 10:44am Advance Directive Response Recorded Date/ Time Living Will Yes November 14, 2022 10:44am Power of Hat And Cap Sewer Yes November 14 10:44am Advance Directive Response Recorded Date/ Time Name of Medical Power of Hat And Cap Sewer NYA MORRIS July 25, 2023 4:49am Living Will Yes July 25 4:49am Power of Hat And Cap Sewer Yes July 25 4:49am Advance Directive Response Recorded Date/ Time Living Will Yes November 03, 2024 9:16pm Do you have a Healthcare Power of Hat And Cap Sewer? Yes November 03, 2024 9:16pm Name of Medical Power of Hat And Cap Sewer Daniel Amaral November 03, 2024 9:16pm Summary [...] 2024 End: October 21, 2024 Poppy Mccracken [employer], [employer]-C Attending Provider Active Start: October 21, 2024 [...] Dr. Mariano Dao MD Family Provider Active [facility] Primary Care Provider Active Team Status: Active Member Role Status Dates Dr. Nancy Ewing MD Emergency Provider Active [facility] Primary Care Provider Active Dr. Ryder Brody MD Admit Provider, Attending Provider, Other Provider Active Team Status: Active Member Role Status Dates Dr. Nancy Ewing MD Emergency Provider Active [facility] Primary Care Provider Active Dr. Ryder Brody MD Admit Provider, Attending Pro vider Active Team Status: Active Member Role Status Dates Dr. Nancy Ewing MD Emergency Provider Active [facility] Primary Care Provider Active Dr. Ryder Brody MD Admit Provider, Other Provide r Active Dr. Bernice Betancur MD Attending Provider, Other Provid er Active Team Status: Inactive Member Role Status Dr. Nancy Ewing MD Emergency Provider Active [facility] Primary Care Provider Active Dr. Ryder Brody MD Admit Provider, Other Provide r Active Dr. Bernice Betancur MD Attending Provider Active Team Status: Active Member Role Status [facility] Provider Active Dr. Sylvester Crooks MD Admit Provider, Attending Provid er Active Magnolia Tafoya , [employer]-C Other Provider Active Dr. Steven Dean DO Other Provider Active Dr. Fany Dao MD Other Provider Active Tanisha Henriquez , [employer]-C Other Provider Active Britany White [employer]ER, [employer]ER-C Other Provider Active Team Status: Inactive Member Role Status Dates ALANNAH [facility] Primary Care Provider Active Dr. Sylvester Crooks MD Attending Provider, Referring Pr ovider Active Team Status: Inactive Member Role Status Dates ALANNAH, [facility] Primary Care Provider Active Dr. Sylvester Crooks MD Admit Provider, Attending Provid er Active Magnolia Tafoya , [employer]-C Other Provider Active Dr. Steven Dean DO Other Provider Active Dr. Fany Dao MD Other Provider Active Tanisha Henriquez [employer]-C Other Provider Active Britany White [employer]ER, [employer]ER-C Other Provider Active Team Status: Active Member Role Status Dates Dr. Mariano Dao MD Family Provider Active Dr. Pete Payne MD Primary Care Provider Active Team Status: Inactive Member Role Status Dates Out [facility] Primary Care Provider Active Dr. Pete Payne MD Attending Provider Active Team Status: Inactive Member Role Status Dates Out [facility] Primary Care Provider Active Poppy Mccracken [employer], [employer]-C Attending Provider Active Team Status: Inactive Member Role Status Dates Out [facility] Primary Care Provider Active Pete ROBERTS [...] MD Primary Care Provider Active Poppy Mccracken [employer], [employer]ER-C Attending Provider Active Team Status: Inactive Member [...] 2024 End: June 21, 2024 Poppy Mccracken [employer], [employer]ER-C Attending Provider Active Start: June 21, 2024 [...] 2024 End: October 21, 2024 Poppy Mccracken [employer], [employer]-C Attending Provider Active Start: October 21, 2024 [...] 2025 End: January 03, 2025 Poppy Mccracken [employer], [employer]ER-C Attending Provider Active Start: January 03, 2025 [...] 03, 2025 End: January 03, 2025 Poppy Mccarcken [employer]ER, [employer]ER-C Attending Provider Active Start: January 03, 2025 [...] Attending Provider Active Start: February 21, 2025 Team Status: Inactive Member Role/Relationship Status [...] 2025 End: January 03, 2025 Poppy Mccracken [employer], [employer]-C Attending Provider Active Start: January 03, 2025 [...] Attending Provider Active Start: February 21, 2025 Team Status: Inactive Member Role/Relationship Status Dates Dr. Pete Payne MD Primary Care Provider Active Start: February 23, 2025 End: February 23, 2025 KARLEY Clemens Attending Provider Active St art: February 23, 2025 End: February 23, 2025 Team Status: Active Member Role/Relationship Status Dates Dr. Pete Payne MD Primary Care Provider Active Start: March 15, 2025 Pete ROBERTS MD Attending Provider Active Start: March 15, 2025 Team Status: Active Member Role/Relationship Status Dates Dr. Pete Payne MD Primary care physician Activ e Team Status: Active Member Role/Relationship Status Dates Dr. Pete Payne MD Primary care physician Activ e Start: December 26, 2024 Pete ROBERTS MD Attending physician Active Start: December 26, 2024 Pete ROBERTS MD Referring Provider Active Start: December 26, 2024 Team Status: Inactive Member Role/Relationship Status Dates Dr. Pete Payne MD Primary care physician Activ e Start: January 03, 2025 End: January 03, 2025 Poppy Mccracken [employer], [employer]ER-C Attending physician Active Start: January 03, 2025 End: January 03, 2025 Team Status: Active Member Role/Relationship Status Dates Dr. Pete Payne MD Primary care physician Activ e Start: January 13, 2025 Pete ROBERTS MD Attending physician Active Start: January 13, 2025 Team Status: Inactive Member Role/Relationship Status Dates Dr. Pete Payne MD Primary care physician Activ e Start: January 17, 2025 End: January 17, 2025 Dr. Pete Payne MD Attending physician Active Start: January 17, 2025 End: January 17, 2025 Team Status: Inactive Member Role/Relationship Status Dates Dr. Pete Payne MD Primary care physician Activ e Start: February 06, 2025 End: February 06, 2025 Pete ROBERTS MD Attending physician Active Start: February 06, 2025 End: February 06, 2025 Team Status: Active Member Role/Relationship Status Dates Dr. Pete Payne MD Primary care physician Activ e Start: February 21, 2025 Pete ROBERTS MD Attending physician Active Start: February 21, 2025 Team Status: Inactive Member Role/Relationship Status Dates Dr. Pete Payne MD Primary care physician Activ e Start: February 23, 2025 End: February 23, 2025 KARLEY Clemens Attending physician Active S tart: February 23, 2025 End: February 23, 2025 Team Status: Active Member Role/Relationship Status Dates Dr. Pete Payne MD Primary care physician Activ e Start: March 15, 2025 Pete ROBERTS MD Attending physician Active Start: March 15, 2025 Team Status: Active Member Role/Relationship Status Dates Dr. Pete Payne MD Primary care physician Activ e Start: March 21, 2025 Pete ROBERTS MD Attending physician Active Start: March 21, 2025 Team Status: Inactive Member Role/Relationship Status Dates Dr. Pete Payne MD Primary care physician Activ e Start: January 17, 2025 End: January 17, 2025 Dr. Pete Payne MD Attending physician Active Start: January 17, 2025 End: January 17, 2025 Team Status: Inactive Member Role/Relationship Status Dates Dr. Pete Payne MD Primary care physician Activ e Start: February 06, 2025 End: February 06, 2025 Pete ROBERTS MD Attending physician Active Start: February 06, 2025 End: February 06, 2025 Team Status: Active Member Role/Relationship Status Dates Dr. Pete Payne MD Primary care physician Activ e Start: February 21, 2025 Pete ROBERTS MD Attending physician Active Start: February 21, 2025 Team Status: Inactive Member Role/Relationship Status Dates Dr. Pete Payne MD Primary care physician Activ e Start: February 23, 2025 End: February 23, 2025 KARLEY Clemens Attending physician Active S tart: February 23, 2025 End: February 23, 2025 Team Status: Active Member Role/Relationship Status Dates Dr. Pete Payne MD Primary care physician Activ e Start: March 15, 2025 Pete ROBERTS MD Attending physician Active Start: March 15, 2025 Team Status: Active Member Role/Relationship Status Dates Dr. Pete Payne MD Primary care physician Activ e Start: March 21, 2025 Pete ROBRETS MD Attending physician Active Start: March 21, 2025 Team Status: Inactive Member Role/Relationship Status Dates Dr. Pete Payne MD Primary care physician Activ e Start: March 28, 2025 End: March 28, 2025 Dr. Pete Payne MD Attending physician Active Start: March 28, 2025 End: March 28, 2025 Team Status: Active Member Role/Relationship Status Dates Dr. Pete Payne MD Primary care physician Activ e Start: April 30, 2025 [facility] Attending physician Active Start: April 30, 2025 Team Status: Active Member Role/Relationship Status Dates Dr. Pete Payne MD Primary care physician Activ e Start: May 02, 2025 Pete ROBERTS MD Attending physician Active Start: May 02, 2025 Pete ROBERTS MD Referring Provider Active Start: May 02, 2025 Team Status: Active Member Role/Relationship Status Dates Dr. Pete Payne MD Primary care physician Activ e Start: May 15, 2025 Pete ROBERTS MD Attending physician Active Start: May 15, 2025 Goals (unrecognized section and content) Goals [...] ized section and content) DATE CREATED AUTHOR 05/19/2025 [facility] FOR RECORDS PERTAINING TO PATIENTS WHO [...] BE BASED ON THE PRIMARY CLINICAL RECORDS. [employer] [facility]. provides no warranty or guarantee of the accuracy or completeness of information in this document.
== END ==
LOC: OLS.WHLCAR 05:00
PROVIDERS: PCP Internal Medicine; Visit Provider Internal Medicine
DX: E11.22 Type 2 diabetes mellitus with diabetic chronic kidney disease (principal); I12.9 Hypertensive chronic kidney disease with stage 1 through stage 4 chronic kidney disease, or unspecified chronic kidney disease; N18.9 Chronic kidney disease, unspecified
CPT/HCPCS: 36415; 83036

== ENCOUNTER → 2025-06-13 | Outpatient (REF) | payer MEDICARE, MEDICAID, SELFPAY ==
--- OUTSIDE RECORDS SUMMARY | 2025-06-13 03:25 | XMS RPT_ITS | CCD ---
Author Organization [facility] Care Team Providers Care Crematory Operator Name Role Phone Dr. Nancy Ewing Emergency Provider [phone] ALANNAH BENITO Primary Care Provider Unavail able Dr. Ryder Brody Admit Provider Dr. Ryder Brody Attending Provider Dr. Ryder Brody Other Provider ALANNAH BENITO Primary Care Provider Dr. Bernice Betancur Attending Provider Dr. Bernice Betancur Other Provider [facility] Doctor, Out of Primary Care Provider Silvia Mccracken AUDIO VIDEO TECHNICIAN, AUDIO VIDEO TECHNICIAN-C Poppy Attending Provider Dr. Pete Dietz Attending Provider [phone] Dr. Pete Payne Primary Care Provider [phone] Dr. Pete Payne Attending Provider [phone] Kaykay AUDIO VIDEO TECHNICIAN, AUDIO VIDEO TECHNICIAN-C Poppy Attending Provider Dr. Pete Dietz Primary Care Provider [phone] Dr. Pete Payne Attending Provider [phone] Kaykay AUDIO VIDEO TECHNICIAN, AUDIO VIDEO TECHNICIAN-C Poppy Attending Provider Dr. Pete Dietz Primary Care Provider [phone] Dr. Pete Payne Attending Provider [phone] Kaykay AUDIO VIDEO TECHNICIAN, AUDIO VIDEO TECHNICIAN-C Poppy Attending Provider Elmer SAMUELS, Dr. Freeman Primary Care Provider Tickton AUDIO VIDEO TECHNICIAN-C, Poppy Attending Provider Pete Payne MD Attending Provider UnavailMateo Cordova Attending Provider Elmer SAMUELS, Dr. Freeman Primary Care Provider Elmer SAMUELS, Dr. Freeman Attending Provider Cheyanne DRISCOLL, Dr. Amezquita Emergency Provider Elmer SAMUELS, Dr. Freeman Primary Care Provider Pete Payne MD Attending Provider Unavaila ble Ticknickie AUDIO VIDEO TECHNICIAN-C, Poppy Attending Provider Cheyanne DRISCOLL, Dr. Amezquita [...] Payne MD Attending Provider Unavaila ble Kaykay AUDIO VIDEO TECHNICIAN-CPoppy Attending Provider Elmer SAMUELS, Dr. Freeman Primary Care Provider Pete Payne MD Attending Provider UnavailPete Gaytan MD Referring Provider Unavaila Mateo Romero Attending Provider Elmer SAMUELS, Dr. Freeman Primary Care Physician Pete Payne MD Attending Physician Unavail able Tickton AUDIO VIDEO TECHNICIAN-CPoppy Attending Physician Elmer SAMUELS, Dr. Freeman Attending Physician [phone] Mateo Cardoza Attending Physician Elmer SAMUELS, Dr. Freeman Primary Care Physician Elmer SAMUELS, Pete Attending Physician Unavail able [facility] Attending Physician Violeta Pete Hood MD Referring Provider Unavaila ble Oleghe, Efewongbe Primary Care Unavailable Oleghe OLS, Efewongbe Attending Unavailabl e Oleghe OLS, Efewongbe Attending Unavailabl e Oleghe, Efewongbe Primary Care Unavailable Oleghe OLS, Efewongbe Attending Unavailabl e Oleghe, Efewongbe Primary Care Unavailable Oleghe OLS, Efalexisongbe Attending Unavailabl e Oleghe, Efewongbe Primary Care Unavailable Oleghe OLS, Efewongbe Referring Unavailabl e Oleghe OLS, Efterezabe Attending Unavailabl e Oleghe, Efewongbe Primary Care Unavailable Oleghe OLS, Efewongbe Referring Unavailabl e Oleghe, Efewongbe Primary Care Unavailable Oleghe OLS, Saturninoongbe Attending Unavailabl e Oleghe OLS, Efalexisongbe Attending Unavailabl [...] Primary Care Unavailable Alirio Edward Attending Unavailable Oleghe, Efewongbe Primary Care Unavailable Oleghe OLS, Efewongbe Attending Unavailabl e Oleghe, Efewongbe Primary Care Unavailable Oleghe OLS, Efewongbe Attending Unavailabl e Oleghe, Efewongbe Primary Care Unavailable [facility] [place] Attending Unavail able Oleghe, Efewongbe Attending Unavailable Oleghe, Efewongbe Primary Care Unavailable Oleghe, Efewongbe Attending Unavailable Oleghe, Efewongbe Primary Care Unavailable Ppopy Mccracken NP Attending Unavailable Oleghe, Efewongbe Primary Care Unavailable Mateo Cardoza Attending Unavailable Oleghe, Efewongbe Primary Care Unavailable Oleghe, Efewongbe Primary Care Unavailable Oleghe OLS, Efewongbe Attending Unavailabl e Oleghe, Efewongbe Primary Care Unavailable Kaykay AUDIO VIDEO TECHNICIANPoppy Attending Unavailable Oleghe OLS, Efewongbe Attending Unavailabl e Oleghe OLS, Efewongbe Referring Unavailabl e Oleghe, Efewongbe Primary Care Unavailable Oleghe, Efewongbe Primary Care Unavailable Oleghe, Efewongbe Attending Unavailable Kaykay AUDIO VIDEO TECHNICIANPoppy Attending Unavailable Oleghe, Efewongbe Primary Care Unavailable [...] Penicillins Propensity to adverse reactions 3 Diarrhea [facility] (1 source) Penicillins Drug allergy (disorder) 5 [facility] Repository Medications Current Medications Medication Drug Class(es) [...] 5 11-13-2022 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; Translations: [Type 2 diabetes mellitus with diabetic chronic kidney disease] Onset: Chronic Diabetes mellitus without complication (20 [...] Auto (Unsp spec) [#/Vol] 2.71 10*3/uL 0.83-4.51 [facility] Absolute neutrophil countOrd ered By: Pete Payne on 05-15-2025 Neutrophils (Bld) [#/Vol] 5.7 10*3/uL 2.0-7.7 [facility] Automated lymphocyte count a s percentage of total leukocytesOrdered By: Pete Payne on 05-15-2025 Lymphocytes/100 WBC Auto (Unsp spec) 28.9 % 19-41 [facility] Basophil percentageOrdered B y: Pete Payne on 05-15-2025 Basophils/100 WBC (Bld) 0.9 % 0-1 [facility] Eosinophil percentageOrdered By: Pete Payne on 05-15-2025 Eosinophils/100 WBC (Bld) 1.9 % 0-5 [facility] Erythrocyte distribution wid th ratioOrdered By: Pete Payne on 05-15-2025 Erythrocyte distribution width (RBC) [Ratio] 13.2 % 11.6-14.6 [facility] Erythrocyte distribution wid th standard deviationOrdered By: Pete Payne on 05-15-2025 Erythrocyte distribution width (RBC) [Ratio] 44.3 fl High 35.1-43.9 [facility] Hematocrit Auto (Bld) [Volum e fraction]Ordered By: Pete Payne on 05-15-2025 Hematocrit (Bld) [Volume fraction] 36.2 % Low 37-47 [facility] Hemoglobin measurementOrdere d By: Pete Payne on 05-15-2025 Hemoglobin (Bld) [Mass/Vol] 12.0 g/dL 12.0-15.0 [facility] Immature granulocytes/100 WB C Auto (Bld)Ordered By: Pete Payne on 05-15-2025 Immature granulocytes/100 WBC (Bld) 0.500 % 0.0-0.9 [facility] Comment on above: IG% - Immature Granu locytes (promyelocytes, myelocytes and metamyelocytes) > 1% indicates that a LEFT SHIFT is Present. MCV (mean corpuscular volume ) determinationOrdered By: Pete Payne on 05-15-2025 MCV (RBC) [Entitic vol] 91.6 fL 81-99 [facility] Mean corpuscular hemoglobin (MCH) determinationOrdered By: Pete Payne on 05-15-2025 MCH (RBC) [Entitic mass] 30.4 pg 27.0-32.0 [facility] Mean corpuscular hemoglobin concentration (MCHC) determinationOrdered By: Pete Payne on 05-15-2025 MCHC (RBC) [Mass/Vol] 33.1 g/dL 32-36 [facility] Mean platelet volume determi nationOrdered By: Pete Payne on 05-15-2025 Platelet mean volume (Bld) [Entitic vol] 9.9 fL 6.2-12.0 [facility] Monocyte percentageOrdered B y: Saturninokeishasudarshan Pfeifferriteshyulia on 05-15-2025 Monocytes/100 WBC (Bld) 7.0 % 0-10 [facility] Neutrophil percentageOrdered By: Celestealexiskeishasudarshan Pfeifferriteshyulia on 05-15-2025 Neutrophils/100 WBC (Bld) 60.8 % 47-70 [facility] Nucleated red blood cell per centageOrdered By: Saturninokeishasudarshan Pfeifferriteshyulia on 05-15-2025 Nucleated RBC/100 WBC (Bld) [Ratio] 0 % 0-5 [facility] Platelet countOrdered By: Celeste terezasudarshan Payne on 05-15-2025 Platelets (Bld) [#/Vol] 357 10*3/uL 150-450 [facility] RBC Auto (Bld) [#/Vol]Ordere d By: Saturninokeishasudarshan Pfeifferriteshyulia on 05-15-2025 RBC (Bld) [#/Vol] 3.95 10*6/uL Low 4.2-5.4 [facility] White blood cell (WBC) count Ordered By: Pete Payne on 05-15-2025 WBC (Bld) [#/Vol] 9.4 10*3/uL 4.4-11.0 [facility] TSH DL <= 0.005 mIU/L QnOrde red By: Saturninokeishasudarshan Pfeifferriteshyulia on 05-02-2025 TSH Qn 2.410 uIU/mL 0.300-4.200 [facility] Clostridium difficile detect ion by polymerase chain reactionOrdered By: [facility] on 04-30-2025 C. difficile DNA KISHORE+probe Ql (Unsp spec) [facility] Anion gap in Serum or Plasma Ordered By: Pete Payne on 03-21-2025 Anion gap [Moles/Vol] 11 mmol/L 5-15 [facility] BUN/creatinine ratioOrdered By: Pete Payne on 03-21-2025 Urea nitrogen/Creatinine [Mass ratio] 21.3 mg/mg High 10-20 [facility] Bilirubin, totalOrdered By: Pete Payne on 03-21-2025 Bilirubin [Mass/Vol] 0.59 mg/dL 0.00-1.30 [facility] Carbon dioxide, total [Moles /volume] in Central venous bloodOrdered By: Pete Payne on 03-21-2025 CO2 [Moles/Vol] 24.1 mmol/L 21.0-32.0 [facility] Chloride assayOrdered By: Celeste Payne on 03-21-2025 Chloride [Moles/Vol] 104 mmol/L 98-108 [facility] Glomerular filtration rate ( GFR) estimation/1.73 sq m using serum, plasma, or whole bOrdered By: Pete Payne on 03-21-2025 GFR/1.73 sq M.predicted among non-blacks MDRD (S/P/Bld) [Vol rate/Area] 64 mL/min/{1.73_m2} >60 [facility] Comment on above: mL/min/1.73m2 CKD-EP I Creatinine Equation (2020) Laboratory - Chemistry and C hemistry - challengeOrdered By: Pete Payne on 03-21-2025 AST [Catalytic activity/Vol] 18 U/L <32 [facility] Potassium measurement (mass/ volume)Ordered By: Pete Payne on 03-21-2025 Potassium (Unsp spec) [Mass/Vol] 4.2 mmol/L 3.3-5.1 [facility] Serum creatinine measurement (mass/volume)Ordered By: Pete Payne on 03-21-2025 Creatinine [Mass/Vol] 0.87 mg/dL 0.70-1.20 [facility] Serum globulin measurementOr dered By: Pete Payne on 03-21-2025 Globulin (S) [Mass/Vol] 2.5 g/dL 2.2-4.2 [facility] Serum glucose measurement (m ass/volume)Ordered By: Pete Payne on 03-21-2025 Glucose [Mass/Vol] 138 mg/dL High 70-99 [facility] Serum or plasma alanine castro otransferase (ALT) measurementOrdered By: Pete Payne on 03-21-2025 ALT [Catalytic activity/Vol] 8 U/L <35 [facility] Serum or plasma albumin karri urement (mass/volume)Ordered By: Pete Kentrellriteshyulia on 03-21-2025 Albumin [Mass/Vol] 3.2 g/dL Low 3.4-4.8 [facility] Serum or plasma albumin/glob ulin mass ratioOrdered By: Pete Kentrellriteshyulia on 03-21-2025 Albumin/Globulin [Mass ratio] 1.3 {ratio} 0.9-2.4 [facility] Serum or plasma alkaline corky sphatase measurementOrdered By: Celestealexisanne Kentrellriteshyulia on 03-21-2025 ALP [Catalytic activity/Vol] 54 U/L 35-104 [facility] Serum or plasma calcium karri urement (mass/volume)Ordered By: Pete Kentrellriteshyulia on 03-21-2025 Calcium [Mass/Vol] 8.9 mg/dL 7.6-11.0 [facility] Serum or plasma urea nitroge n measurement (mass/volume)Ordered By: Saturninokeishasudarshan Pfeifferriteshyulia on 03-21-2025 Urea nitrogen [Mass/Vol] 19 mg/dL 4-19 [facility] Sodium levelOrdered By: Saturnino rodríguez Kentrellriteshyulia on 03-21-2025 Sodium [Moles/Vol] 139 mmol/L 133-145 [facility] TSH DL <= 0.005 mIU/L QnOrde red By: Pete Kentrellsarthak on 03-21-2025 TSH Qn 3.520 uIU/mL 0.300-4.200 [facility] Total proteinOrdered By: Ramsey felix Kentrellriteshyulia on 03-21-2025 Protein [Mass/Vol] 5.8 g/dL Low 5.9-8.4 [facility] Absolute lymphocyte countOrd ered By: Celestealexisanne Kentrellriteshyulia on 03-15-2025 Lymphocytes Auto (Unsp spec) [#/Vol] 2.86 10*3/uL 0.83-4.51 [facility] Absolute neutrophil countOrd ered By: Celestealexisanne Kentrellriteshyulia on 03-15-2025 Neutrophils (Bld) [#/Vol] 6.0 10*3/uL 2.0-7.7 [facility] Automated lymphocyte count a s percentage of total leukocytesOrdered By: Celestegeena Payne on 03-15-2025 Lymphocytes/100 WBC Auto (Unsp spec) 28.8 % 19-41 [facility] Basophil percentageOrdered B y: Nithinsudarshan Devinyulia on 03-15-2025 Basophils/100 WBC (Bld) 0.7 % 0-1 [facility] Eosinophil percentageOrdered By: [facility] Pfe[facility] on 03-15-2025 Eosinophils/100 WBC (Bld) 2.9 % 0-5 [facility] Erythrocyte distribution wid th ratioOrdered By: [facility] Kentrellyulia on 03-15-2025 Erythrocyte distribution width (RBC) [Ratio] 13.5 % 11.6-14.6 [facility] Erythrocyte distribution wid th standard deviationOrdered By: [facility] Pfeifferyulia on 03-15-2025 Erythrocyte distribution width (RBC) [Ratio] 45.3 fl High 35.1-43.9 [facility] Hematocrit Auto (Bld) [Volum e fraction]Ordered By: alexisperkiomenvillesudarshan Payne on 03-15-2025 Hematocrit (Bld) [Volume fraction] 35.1 % Low 37-47 [facility] Hemoglobin measurementOrdere d By: alexisperkiomenvillesudarshan Payne on 03-15-2025 Hemoglobin (Bld) [Mass/Vol] 11.5 g/dL Low 12.0-15.0 [facility] Immature granulocytes/100 WB C Auto (Bld)Ordered By: [facility] Pfeifferyulia on 03-15-2025 Immature granulocytes/100 WBC (Bld) 0.300 % 0.0-0.9 [facility] Comment on above: IG% - Immature Granu locytes (promyelocytes, myelocytes and metamyelocytes) > 1% indicates that a LEFT SHIFT is Present. MCV (mean corpuscular volume ) determinationOrdered By: Saturninoperkiomenvillesudarshan Payne on 03-15-2025 MCV (RBC) [Entitic vol] 92.1 fL 81-99 [facility] Mean corpuscular hemoglobin (MCH) determinationOrdered By: [facility] Kentrellyulia 03-15-2025 MCH (RBC) [Entitic mass] 30.2 pg 27.0-32.0 [facility] Mean corpuscular hemoglobin concentration (MCHC) determinationOrdered By: Pete Payne on 03-15-2025 MCHC (RBC) [Mass/Vol] 32.8 g/dL 32-36 [facility] Mean platelet volume determi nationOrdered By: Pete Payne on 03-15-2025 Platelet mean volume (Bld) [Entitic vol] 10.0 fL 6.2-12.0 [facility] Monocyte percentageOrdered B y: Pete Payne on 03-15-2025 Monocytes/100 WBC (Bld) 7.4 % 0-10 [facility] Neutrophil percentageOrdered By: Pete Payne on 03-15-2025 Neutrophils/100 WBC (Bld) 59.9 % 47-70 [facility] Nucleated red blood cell per centageOrdered By: Pete Payne on 03-15-2025 Nucleated RBC/100 WBC (Bld) [Ratio] 0 % 0-5 [facility] Platelet countOrdered By: Celeste Payne on 03-15-2025 Platelets (Bld) [#/Vol] 334 10*3/uL 150-450 [facility] RBC Auto (Bld) [#/Vol]Ordere d By: Pete Payne on 03-15-2025 RBC (Bld) [#/Vol] 3.81 10*6/uL Low 4.2-5.4 [facility] White blood cell (WBC) count Ordered By: Pete Payne on 03-15-2025 WBC (Bld) [#/Vol] 9.9 10*3/uL 4.4-11.0 [facility] Calculated very low density lipoprotein (VLDL) cholesterol measurementOrdered By: Pete Payne on 02-21-2025 Calculated very low density lipoprotein (VLDL) cholesterol measurement 49 mg/dL High 5-40 [facility] Hemoglobin A1c percentageOrd ered By: Pete Payne on 02-21-2025 HbA1c (Bld) [Mass fraction] 7.2 % High <5.7 [facility] Comment on above: Normal < 5.7 % Predi abetic 5.7 - 6.4 % Diabetic >or= 6.5 % Please note range changes. LDL calc ser/plasOrdered By: Pete Payne on 02-21-2025 Cholesterol in LDL [Mass/Vol] 36 mg/dL [facility] Comment on above: Aigjbultxk=958-604 m g/dL & Higher Jgok=623 mg/dL or greaterFriedwald Equation for LDL-C Screening total cholesterol/ high density lipoprotein (HDL) cholesterol ratioOrdered By: Pete Payne on 02-21-2025 Cholesterol.total/Choles terol in HDL [Mass ratio] 3.46 {ratio} [facility] Serum or plasma cholesterol in HDL measurement (mass/volume)Ordered By: Pete Payne on 02-21-2025 Cholesterol in HDL [Mass/Vol] 35 mg/dL Low >40 [facility] Comment on above: National Cholesterol Education Program (NCEP) guidelines:<40 mg/dL: Low HDL-cholesterol (major risk factor for CHD)>= 60 mg/dL: High HDL-cholesterol (negative risk factor for CHD)HDL-cholesterol is affected by a number of factors, e.g. smoking, exercise, hormones, sex and age. Serum or plasma cholesterol measurement (mass/volume)Ordered By: Pete Payne on 02-21-2025 Cholesterol [Mass/Vol] 120 mg/dL <201 [facility] Comment on above: Cholesterol level, D esirable <200 mg/dLBorderline high cholesterol 200-239 mg/dLHigh cholesterol >=240 mg/dLRecommendations of the NCEP Adult Treatment Panel for the following risk-cutoff thresholds for the [place] population. Triglycerides measurementOrd ered By: Pete Payne on 02-21-2025 Triglyceride [Mass/Vol] 245 mg/dL High <199 [facility] Comment on above: The drugs N-Acetylcy steine and Metamizole may falsely depress this assay. Normal range: <150 mg/dLBorderline High: 150-199 mg/dLHigh: 200-499 mg/dLVery High: >500 mg/dL TSH DL <= 0.005 mIU/L QnOrde red By: Pete Payne on 02-06-2025 TSH Qn 2.850 uIU/mL 0.300-4.200 [facility] Absolute lymphocyte countOrd ered By: Pete Payne on 01-13-2025 Lymphocytes Auto (Unsp spec) [#/Vol] 2.32 10*3/uL 0.83-4.51 [facility] Absolute neutrophil countOrd ered By: Pete Payne on 01-13-2025 Neutrophils (Bld) [#/Vol] 5.2 10*3/uL 2.0-7.7 [facility] Automated lymphocyte count a s percentage of total leukocytesOrdered By: Pete Payne on 01-13-2025 Lymphocytes/100 WBC Auto (Unsp spec) 27.3 % 19-41 [facility] Basophil percentageOrdered B y: Pete Payne on 01-13-2025 Basophils/100 WBC (Bld) 0.9 % 0-1 [facility] Eosinophil percentageOrdered By: Pete Payne on 01-13-2025 Eosinophils/100 WBC (Bld) 3.4 % 0-5 [facility] Erythrocyte distribution wid th ratioOrdered By: alexisperkiomenvillesudarshan Payne on 01-13-2025 Erythrocyte distribution width (RBC) [Ratio] 13.2 % 11.6-14.6 [facility] Erythrocyte distribution wid th standard deviationOrdered By: alexisperkiomenvillesudarshan Payne on 01-13-2025 Erythrocyte distribution width (RBC) [Ratio] 45.4 fl High 35.1-43.9 [facility] Hematocrit Auto (Bld) [Volum e fraction]Ordered By: Pete Payne on 01-13-2025 Hematocrit (Bld) [Volume fraction] 36.0 % Low 37-47 [facility] Hemoglobin measurementOrdere d By: Pete Payne on 01-13-2025 Hemoglobin (Bld) [Mass/Vol] 11.4 g/dL Low 12.0-15.0 [facility] Immature granulocytes/100 WB C Auto (Bld)Ordered By: Pete Payne on 01-13-2025 Immature granulocytes/100 WBC (Bld) 0.500 % 0.0-0.9 [facility] Comment on above: IG% - Immature Granu locytes (promyelocytes, myelocytes and metamyelocytes) > 1% indicates that a LEFT SHIFT is Present. MCV (mean corpuscular volume ) determinationOrdered By: Pete Payne on 01-13-2025 MCV (RBC) [Entitic vol] 93.3 fL 81-99 [facility] Mean corpuscular hemoglobin (MCH) determinationOrdered By: Pete Payne on 01-13-2025 MCH (RBC) [Entitic mass] 29.5 pg 27.0-32.0 [facility] Mean corpuscular hemoglobin concentration (MCHC) determinationOrdered By: Pete Payne on 01-13-2025 MCHC (RBC) [Mass/Vol] 31.7 g/dL Low 32-36 [facility] Mean platelet volume determi nationOrdered By: Pete Payne on 01-13-2025 Platelet mean volume (Bld) [Entitic vol] 10.8 fL 6.2-12.0 [facility] Monocyte percentageOrdered B y: Pete Payne on 01-13-2025 Monocytes/100 WBC (Bld) 6.9 % 0-10 [facility] Neutrophil percentageOrdered By: Pete Payne on 01-13-2025 Neutrophils/100 WBC (Bld) 61.0 % 47-70 [facility] Nucleated red blood cell per centageOrdered By: Pete Payne on 01-13-2025 Nucleated RBC/100 WBC (Bld) [Ratio] 0 % 0-5 [facility] Platelet countOrdered By: Celeste alexisanne Payne on 01-13-2025 Platelets (Bld) [#/Vol] 316 10*3/uL 150-450 [facility] RBC Auto (Bld) [#/Vol]Ordere d By: Pete Payne on 01-13-2025 RBC (Bld) [#/Vol] 3.86 10*6/uL Low 4.2-5.4 [facility] White blood cell (WBC) count Ordered By: Pete Payne on 01-13-2025 WBC (Bld) [#/Vol] 8.5 10*3/uL 4.4-11.0 [facility] TSH DL <= 0.005 mIU/L QnOrde red By: Pete Payne on 12-26-2024 TSH Qn 4.080 uIU/mL 0.300-4.200 [facility] Absolute lymphocyte countOrd ered By: Pete Payne on 12-13-2024 Lymphocytes Auto (Unsp spec) [#/Vol] 2.57 10*3/uL 0.83-4.51 [facility] Absolute neutrophil countOrd ered By: Pete Payne on 12-13-2024 Neutrophils (Bld) [#/Vol] 5.1 10*3/uL 2.0-7.7 [facility] Automated lymphocyte count a s percentage of total leukocytesOrdered By: Pete Payne on 12-13-2024 Lymphocytes/100 WBC Auto (Unsp spec) 29.2 % 19-41 [facility] Basophil percentageOrdered B y: Pete Payne on 12-13-2024 Basophils/100 WBC (Bld) 0.8 % 0-1 [facility] Eosinophil percentageOrdered By: geena Payne on 12-13-2024 Eosinophils/100 WBC (Bld) 3.5 % 0-5 [facility] Erythrocyte distribution wid th ratioOrdered By: Pete Payne on 12-13-2024 Erythrocyte distribution width (RBC) [Ratio] 13.4 % 11.6-14.6 [facility] Erythrocyte distribution wid th standard deviationOrdered By: Pete Payne on 12-13-2024 Erythrocyte distribution width (RBC) [Ratio] 46.0 fl High 35.1-43.9 [facility] Hematocrit Auto (Bld) [Volum e fraction]Ordered By: Pete Payne on 12-13-2024 Hematocrit (Bld) [Volume fraction] 33.0 % Low 37-47 [facility] Hemoglobin measurementOrdere d By: Pete Payne on 12-13-2024 Hemoglobin (Bld) [Mass/Vol] 10.6 g/dL Low 12.0-15.0 [facility] Immature granulocytes/100 WB C Auto (Bld)Ordered By: Pete Payne on 12-13-2024 Immature granulocytes/100 WBC (Bld) 0.300 % 0.0-0.9 [facility] Comment on above: IG% - Immature Granu locytes (promyelocytes, myelocytes and metamyelocytes) > 1% indicates that a LEFT SHIFT is Present. MCV (mean corpuscular volume ) determinationOrdered By: Pete Payne on 12-13-2024 MCV (RBC) [Entitic vol] 94.0 fL 81-99 [facility] Mean corpuscular hemoglobin (MCH) determinationOrdered By: Pete Payne on 12-13-2024 MCH (RBC) [Entitic mass] 30.2 pg 27.0-32.0 [facility] Mean corpuscular hemoglobin concentration (MCHC) determinationOrdered By: Pete Payne on 12-13-2024 MCHC (RBC) [Mass/Vol] 32.1 g/dL 32-36 [facility] Mean platelet volume determi nationOrdered By: Pete Payne on 12-13-2024 Platelet mean volume (Bld) [Entitic vol] 9.9 fL 6.2-12.0 [facility] Monocyte percentageOrdered B y: Pete Payne on 12-13-2024 Monocytes/100 WBC (Bld) 8.1 % 0-10 [facility] Neutrophil percentageOrdered By: Pete Payne on 12-13-2024 Neutrophils/100 WBC (Bld) 58.1 % 47-70 [facility] Nucleated red blood cell per centageOrdered By: Pete Payne on 12-13-2024 Nucleated RBC/100 WBC (Bld) [Ratio] 0 % 0-5 [facility] Platelet countOrdered By: Celeste Payne on 12-13-2024 Platelets (Bld) [#/Vol] 309 10*3/uL 150-450 [facility] RBC Auto (Bld) [#/Vol]Ordere d By: Pete Payne on 12-13-2024 RBC (Bld) [#/Vol] 3.51 10*6/uL Low 4.2-5.4 [facility] White blood cell (WBC) count Ordered By: Pete Elmer on 12-13-2024 WBC (Bld) [#/Vol] 8.8 10*3/uL 4.4-11.0 [facility] Hemoglobin A1c percentageOrd ered By: Pete Payne on 11-22-2024 HbA1c (Bld) [Mass fraction] 7.0 % High <5.7 [facility] Comment on above: Normal < 5.7 % Predi abetic 5.7 - 6.4 % Diabetic >or= 6.5 % Please note range changes. TSH DL <= 0.005 mIU/L QnOrde red By: Pete Payne on 11-14-2024 TSH Qn 3.270 uIU/mL 0.300-4.200 [facility] Brain/Head without Contrasto n 11-03-2024 Brain/Head without Contrast [facility] Imaging Services [address] [place] [address] Brain/Head without Contrast MR#: [id number] Acct: [id number] Name: MAXIME AMARAL Rep #: [id number] : 1935 F 89 From: Davin Sotelo DO PCP: Dr. Pete Payne MD Status: [facility] ER Study: Brain/Head without Contrast Date of Exam: 10/18 02/10 Exam# [id number] Ordering Dr: Alirio Edward DO PROCEDURE: BRAIN/HEAD [...] CHRONIC CHANGES. NO ACUTE FINDINGS. [facility] CC: Dr. Pete Payne MD; Dr. Alirio Edward DO [employer] Supervisor: Signed Normal [facility] Emergency Department Summary on 11-03-2024 Emergency Department Summary [facility] Medical Records Department [address] [place] [address] Emergency Department Summary 11/03/24 MR#: [id number] Acct: [id number] Name: MAXIME AMARAL Rep #: [id number] : 1935 89 From: Alirio Patel PCP: Dr. Pete Payne MD Status:REG ER Location: ED HPI HPI - Fall History of Present Illness Chief Complaint: Fall Informant: patient and family Narrative Narrative: Patient brought in by EMS from [facility] witnessed fall head injury. Patient [...] paperwork. She has baseline per son. [facility] Medical History Dry eye syndrome of bilateral [...] for te (more content not included)... Normal [facility] Shoulder min 2 Viewson 11-03 Shoulder min 2 Views [facility] Imaging Services [address] [place] [address] Shoulder min 2 Views MR#: [id number] Acct: [id number] Name: MAXIME AMARAL Rep #: [id number] : 1935 F 89 From: Davin Sotelo DO PCP: Dr. Pete Payne MD Status: REG ER Study: Shoulder min 2 Views Date of Exam: 11/03/24 Exam# [id number] Ordering Dr: Alirio Edward DO PROCEDURE: SHOULDER MIN 2 VIEWS 11/03/2024 REASON FOR EXAM: INJURY TECHNIQUE: 3 view(s) of the right shoulder COMPARISON: None FINDINGS: Bones: No acute fracture. Joints: Normal alignment of the acromioclavicular and glenohumeral joints. Soft tissues: Soft tissues are unremarkable. Other: RAD/Shoulder min 2 Views IMPRESSION: NO ACUTE FRACTURE OR DISLOCATION. Reading Location: [facility] CC: Dr. Pete Payne MD; Dr. Alirio Edward DO [employer] Supervisor: Signed Normal [facility] Sinus/Facial Boneon 11-04-19 Sinus/Facial Bone [facility] Imaging Services [address] [place] [address] Sinus/Facial Bone MR#: [id number] Acct: [id number] Name: MAXIME AMARAL Rep #: [id number] : 1935 F 89 From: Davin Sotelo DO PCP: Dr. Pete Payne MD Status: REG ER Study: Sinus/Facial Bone Date of Exam: 11/03/24 Exam# [id number] Ordering Dr: Alirio Edward DO PROCEDURE: SINUS/FACIAL [...] supraorbital region. No acute fracture. Reading Location: [facility] CC: Dr. Pete Payne MD; Dr. Alirio Edward DO [employer] Supervisor: Signed Normal [facility] Spine Cervical without Contr ason 11-03-2024 Spine Cervical without Contras [facility] Imaging Services [address] [place] [address] Spine Cervical without Contras MR#: [id number] Acct: [id number] Name: MAXIME AMARAL Rep #: [id number] : 1935 F 89 From: Davin Sotelo DO PCP: Dr. Pete Payne MD Status: REG ER Study: Spine Cervical without Contras Date of Exam: 0 11/03/24 Exam# [id number] Ordering Dr: Alirio Edward DO PROCEDURE: SPINE [...] No acute fracture or subluxation. [facility] CC: Dr. Pete Payne MD; Dr. Alirio Edward DO [employer] Supervisor: Signed Normal [facility] Absolute lymphocyte countOrd ered By: Pete Payne on 10-17-2024 Lymphocytes Auto (Unsp spec) [#/Vol] 3.03 10*3/uL 0.83-4.51 [facility] Absolute neutrophil countOrd ered By: Pete Payne on 10-17-2024 Neutrophils (Bld) [#/Vol] 5.3 10*3/uL 2.0-7.7 [facility] Automated lymphocyte count a s percentage of total leukocytesOrdered By: Pete Payne on 10-17-2024 Lymphocytes/100 WBC Auto (Unsp spec) 31.8 % 19-41 [facility] Basophil percentageOrdered B y: Pete Payne on 10-17-2024 Basophils/100 WBC (Bld) 0.8 % 0-1 [facility] Eosinophil percentageOrdered By: Pete Payne on 10-17-2024 Eosinophils/100 WBC (Bld) 3.6 % 0-5 [facility] Erythrocyte distribution wid th (RBC) [Ratio]Ordered By: [facility] Pfeifferrites[facility] on 10-17-2024 Erythrocyte distribution width (RBC) [Entitic vol] 45.9 fL High 35.1-43.9 [facility] Erythrocyte distribution wid th ratioOrdered By: [facility] Kentrellyulia on 10-17-2024 Erythrocyte distribution width (RBC) [Ratio] 13.4 % 11.6-14.6 [facility] Erythrocyte distribution wid th standard deviationOrdered By: [facility] Beltranyulia on 10-17-2024 Erythrocyte distribution width (RBC) [Ratio] 45.9 fl High 35.1-43.9 [facility] Hematocrit Auto (Bld) [Volum e fraction]Ordered By: [facility] Pfeifferyulia on 10-17-2024 Hematocrit (Bld) [Volume fraction] 34.1 % Low 37-47 [facility] Hemoglobin measurementOrdere d By: [facility] Kentrellyulia on 10-17-2024 Hemoglobin (Bld) [Mass/Vol] 11.1 g/dL Low 12.0-15.0 [facility] Immature granulocytes/100 WB C Auto (Bld)Ordered By: [facility] Kentrellyulia on 10-17-2024 Immature granulocytes/100 WBC (Bld) 0.400 % 0.0-0.9 [facility] Comment on above: IG% - Immature Granu locytes (promyelocytes, myelocytes and metamyelocytes) > 1% indicates that a LEFT SHIFT is Present. Lymphocytes Auto (Unsp spec) [#/Vol]Ordered By: alexisperkiomenvillesudarshan Pfeifferyulia on 10-17-2024 Lymphocytes (Bld) [#/Vol] 3.03 10*3/uL 0.83-4.51 [facility] Lymphocytes/100 WBC Auto (Un sp spec)Ordered By: [facility] Pfeifferyulia on 10-17-2024 Lymphocytes/100 WBC (Bld) 31.8 % 19-41 [facility] MCV (mean corpuscular volume ) determinationOrdered By: alexisperkiomenvillesudarshan Pfeifferyulia on 10-17-2024 MCV (RBC) [Entitic vol] 92.4 fL 81-99 [facility] Mean corpuscular hemoglobin (MCH) determinationOrdered By: Pete Payne on 10-17-2024 MCH (RBC) [Entitic mass] 30.1 pg 27.0-32.0 [facility] Mean corpuscular hemoglobin concentration (MCHC) determinationOrdered By: Pete Payne on 10-17-2024 MCHC (RBC) [Mass/Vol] 32.6 g/dL 32-36 [facility] Mean platelet volume determi nationOrdered By: Pete Payne on 10-17-2024 Platelet mean volume (Bld) [Entitic vol] 10.0 fL 6.2-12.0 [facility] Monocyte percentageOrdered B y: Pete Payne on 10-17-2024 Monocytes/100 WBC (Bld) 7.4 % 0-10 [facility] Neutrophil percentageOrdered By: Saturninoperkiomenvillesudarshan Payne on 10-17-2024 Neutrophils/100 WBC (Bld) 56.0 % 47-70 [facility] Nucleated red blood cell per centageOrdered By: Pete Payne on 10-17-2024 Nucleated RBC/100 WBC (Bld) [Ratio] 0 % 0-5 [facility] Platelet countOrdered By: Celeste alexisanne Payne on 10-17-2024 Platelets (Bld) [#/Vol] 346 10*3/uL 150-450 [facility] RBC Auto (Bld) [#/Vol]Ordere d By: Pete Payne on 10-17-2024 RBC (Bld) [#/Vol] 3.69 10*6/uL Low 4.2-5.4 [facility] White blood cell (WBC) count Ordered By: Pete Payne on 10-17-2024 WBC (Bld) [#/Vol] 9.5 10*3/uL 4.4-11.0 [facility] Absolute lymphocyte countOrd ered By: Pete Payne on 10-10-2024 Lymphocytes Auto (Unsp spec) [#/Vol] 2.36 10*3/uL 0.83-4.51 [facility] Absolute neutrophil countOrd ered By: Pete Payne on 10-10-2024 Neutrophils (Bld) [#/Vol] 5.5 10*3/uL 2.0-7.7 [facility] Automated lymphocyte count a s percentage of total leukocytesOrdered By: Pete Payne on 10-10-2024 Lymphocytes/100 WBC Auto (Unsp spec) 26.6 % 19-41 [facility] Basophil percentageOrdered B y: Pete Payne on 10-10-2024 Basophils/100 WBC (Bld) 0.9 % 0-1 [facility] Eosinophil percentageOrdered By: [facility] Elmer on 10-10-2024 Eosinophils/100 WBC (Bld) 2.8 % 0-5 [facility] Erythrocyte distribution wid th (RBC) [Ratio]Ordered By: [facility] Pfeifferyulia on 10-10-2024 Erythrocyte distribution width (RBC) [Entitic vol] 45.0 fL High 35.1-43.9 [facility] Erythrocyte distribution wid th ratioOrdered By: [facility] Payne on 10-10-2024 Erythrocyte distribution width (RBC) [Ratio] 13.2 % 11.6-14.6 [facility] Erythrocyte distribution wid th standard deviationOrdered By: [facility] Kentrellyulia on 10-10-2024 Erythrocyte distribution width (RBC) [Ratio] 45.0 fl High 35.1-43.9 [facility] Hematocrit Auto (Bld) [Volum e fraction]Ordered By: [facility] Pfeifferyulia on 10-10-2024 Hematocrit (Bld) [Volume fraction] 35.0 % Low 37-47 [facility] Hemoglobin measurementOrdere d By: geena Payne on 10-10-2024 Hemoglobin (Bld) [Mass/Vol] 11.3 g/dL Low 12.0-15.0 [facility] Immature granulocytes/100 WB C Auto (Bld)Ordered By: geena Payne on 10-10-2024 Immature granulocytes/100 WBC (Bld) 0.500 % 0.0-0.9 [facility] Comment on above: IG% - Immature Granu locytes (promyelocytes, myelocytes and metamyelocytes) > 1% indicates that a LEFT SHIFT is Present. Lymphocytes Auto (Unsp spec) [#/Vol]Ordered By: Pete Payne on 10-10-2024 Lymphocytes (Bld) [#/Vol] 2.36 10*3/uL 0.83-4.51 [facility] Lymphocytes/100 WBC Auto (Un sp spec)Ordered By: Pete Payne on 10-10-2024 Lymphocytes/100 WBC (Bld) 26.6 % 19-41 [facility] MCV (mean corpuscular volume ) determinationOrdered By: Pete Payne on 10-10-2024 MCV (RBC) [Entitic vol] 92.6 fL 81-99 [facility] Mean corpuscular hemoglobin (MCH) determinationOrdered By: Pete Payne on 10-10-2024 MCH (RBC) [Entitic mass] 29.9 pg 27.0-32.0 [facility] Mean corpuscular hemoglobin concentration (MCHC) determinationOrdered By: Pete Payne on 10-10-2024 MCHC (RBC) [Mass/Vol] 32.3 g/dL 32-36 [facility] Mean platelet volume determi nationOrdered By: Pete Payne on 10-10-2024 Platelet mean volume (Bld) [Entitic vol] 10.1 fL 6.2-12.0 [facility] Monocyte percentageOrdered B y: Pete Payne on 10-10-2024 Monocytes/100 WBC (Bld) 6.7 % 0-10 [facility] Neutrophil percentageOrdered By: Pete Payne on 10-10-2024 Neutrophils/100 WBC (Bld) 62.5 % 47-70 [facility] Nucleated red blood cell per centageOrdered By: Pete Payne on 10-10-2024 Nucleated RBC/100 WBC (Bld) [Ratio] 0 % 0-5 [facility] Platelet countOrdered By: Celeste Payne on 10-10-2024 Platelets (Bld) [#/Vol] 361 10*3/uL 150-450 [facility] RBC Auto (Bld) [#/Vol]Ordere d By: Pete Payne on 10-10-2024 RBC (Bld) [#/Vol] 3.78 10*6/uL Low 4.2-5.4 [facility] White blood cell (WBC) count Ordered By: Pete Beltrane on 10-10-2024 WBC (Bld) [#/Vol] 8.9 10*3/uL 4.4-11.0 [facility] Absolute lymphocyte countOrd ered By: Efgeena Beltrane on 10-06-2024 Lymphocytes Auto (Unsp spec) [#/Vol] 2.51 10*3/uL 0.83-4.51 [facility] Absolute neutrophil countOrd ered By: Efgeena Beltrane on 10-06-2024 Neutrophils (Bld) [#/Vol] 4.8 10*3/uL 2.0-7.7 [facility] Automated lymphocyte count a s percentage of total leukocytesOrdered By: Pete Beltrane on 10-06-2024 Lymphocytes/100 WBC Auto (Unsp spec) 30.2 % 19-41 [facility] Basophil percentageOrdered B y: Pete Beltrane on 10-06-2024 Basophils/100 WBC (Bld) 1.0 % 0-1 [facility] Eosinophil percentageOrdered By: alexisongsudarshan Beltrane on 10-06-2024 Eosinophils/100 WBC (Bld) 3.1 % 0-5 [facility] Erythrocyte distribution wid th (RBC) [Ratio]Ordered By: Pete Beltrane on 10-06-2024 Erythrocyte distribution width (RBC) [Entitic vol] 44.4 fL High 35.1-43.9 [facility] Erythrocyte distribution wid th ratioOrdered By: alexisongsudarshan Beltrane on 10-06-2024 Erythrocyte distribution width (RBC) [Ratio] 13.3 % 11.6-14.6 [facility] Erythrocyte distribution wid th standard deviationOrdered By: Saturninoongsudarshan Beltrane on 10-06-2024 Erythrocyte distribution width (RBC) [Ratio] 44.4 fl High 35.1-43.9 [facility] Hematocrit Auto (Bld) [Volum e fraction]Ordered By: [facility] Elmer on 10-06-2024 Hematocrit (Bld) [Volume fraction] 33.2 % Low 37-47 [facility] Hemoglobin measurementOrdere d By: Pete Payne on 10-06-2024 Hemoglobin (Bld) [Mass/Vol] 11.2 g/dL Low 12.0-15.0 [facility] Immature granulocytes/100 WB C Auto (Bld)Ordered By: Pete Payne on 10-06-2024 Immature granulocytes/100 WBC (Bld) 0.400 % 0.0-0.9 [facility] Comment on above: IG% - Immature Granu locytes (promyelocytes, myelocytes and metamyelocytes) > 1% indicates that a LEFT SHIFT is Present. Lymphocytes Auto (Unsp spec) [#/Vol]Ordered By: Pete Payne on 10-06-2024 Lymphocytes (Bld) [#/Vol] 2.51 10*3/uL 0.83-4.51 [facility] Lymphocytes/100 WBC Auto (Un sp spec)Ordered By: Pete Payne on 10-06-2024 Lymphocytes/100 WBC (Bld) 30.2 % 19-41 [facility] MCV (mean corpuscular volume ) determinationOrdered By: Pete Payne on 10-06-2024 MCV (RBC) [Entitic vol] 91.5 fL 81-99 [facility] Mean corpuscular hemoglobin (MCH) determinationOrdered By: Pete Payne on 10-06-2024 MCH (RBC) [Entitic mass] 30.9 pg 27.0-32.0 [facility] Mean corpuscular hemoglobin concentration (MCHC) determinationOrdered By: Pete Payne on 10-06-2024 MCHC (RBC) [Mass/Vol] 33.7 g/dL 32-36 [facility] Mean platelet volume determi nationOrdered By: Pete Payne on 10-06-2024 Platelet mean volume (Bld) [Entitic vol] 9.8 fL 6.2-12.0 [facility] Monocyte percentageOrdered B y: Pete Payne on 10-06-2024 Monocytes/100 WBC (Bld) 7.9 % 0-10 [facility] Neutrophil percentageOrdered By: Saturninokeishasudarshan Pfeifferriteshyulia on 10-06-2024 Neutrophils/100 WBC (Bld) 57.4 % 47-70 [facility] Nucleated red blood cell per centageOrdered By: Pete Kentrellriteshyulia on 10-06-2024 Nucleated RBC/100 WBC (Bld) [Ratio] 0 % 0-5 [facility] Platelet countOrdered By: Celeste terezasudarshan Pfeifferriteshyulia on 10-06-2024 Platelets (Bld) [#/Vol] 348 10*3/uL 150-450 [facility] RBC Auto (Bld) [#/Vol]Ordere d By: Celestegeena Kentrellriteshyulia on 10-06-2024 RBC (Bld) [#/Vol] 3.63 10*6/uL Low 4.2-5.4 [facility] White blood cell (WBC) count Ordered By: Saturninokeishasudarshan Pfeifferriteshyulia on 10-06-2024 WBC (Bld) [#/Vol] 8.3 10*3/uL 4.4-11.0 [facility] T4 freeOrdered By: Saturninokeishasudarshan Pfeifferriteshyulia on 10-03-2024 Free T4 [Mass/Vol] 1.20 ng/dL 0.76-1.46 [facility] TSH DL <= 0.005 mIU/L QnOrde red By: Saturninokeishasudarshan Pfefiferriteshyulia on 10-03-2024 Thyroid Stimulating Hormone (TSH) 4.480 uIU/mL High 0.300-4.200 [facility] TSH Qn 4.480 uIU/mL High 0.300-4.200 [facility] Absolute lymphocyte countOrd ered By: Celesteterezasudarshan Pfeifferriteshyulia on 08-23-2024 Lymphocytes Auto (Unsp spec) [#/Vol] 2.44 10*3/uL 0.83-4.51 [facility] Absolute neutrophil countOrd ered By: Pete Kentrellriteshyulia on 08-23-2024 Neutrophils (Bld) [#/Vol] 5.4 10*3/uL 2.0-7.7 [facility] Albumin to globulin ratioOrd ered By: Celesteewongsudarshan Payne on 08-23-2024 Albumin/Globulin [Mass ratio] 0.7 {ratio} Low 0.9-2.4 [facility] Automated lymphocyte count a s percentage of total leukocytesOrdered By: Pete Payne on 08-23-2024 Lymphocytes/100 WBC Auto (Unsp spec) 27.5 % 19-41 [facility] Basophil percentageOrdered B y: Pete Payne on 08-23-2024 Basophils/100 WBC (Bld) 0.6 % 0-1 [facility] Bilirubin, totalOrdered By: Pete Payne on 08-23-2024 Bilirubin [Mass/Vol] 0.90 mg/dL 0.20-1.00 [facility] Comment on above: For patients on eltr ombopag therapy, use of Dimension [place] TBIL is not recommended. Blood urea nitrogen (BUN)/cr eatinine ratioOrdered By: Pete Payne on 08-23-2024 Urea nitrogen/Creatinine [Mass ratio] 19.5 mg/mg 10-20 [facility] Carbon dioxide measurementOr dered By: geena Payne on 08-23-2024 CO2 [Moles/Vol] 25.0 mmol/L 21.0-32.0 [facility] Chloride measurementOrdered By: geena Payne on 08-23-2024 Chloride [Moles/Vol] 108 mmol/L High 98-107 [facility] Eosinophil percentageOrdered By: Pete Payne on 08-23-2024 Eosinophils/100 WBC (Bld) 3.4 % 0-5 [facility] Erythrocyte distribution wid th (RBC) [Ratio]Ordered By: alexisperkiomenvillesudarshan Payne on 08-23-2024 Erythrocyte distribution width (RBC) [Entitic vol] 47.5 fL High 35.1-43.9 [facility] Erythrocyte distribution wid th ratioOrdered By: alexisperkiomenvillesudarshan Payne on 08-23-2024 Erythrocyte distribution width (RBC) [Ratio] 13.8 % 11.6-14.6 [facility] Erythrocyte distribution wid th standard deviationOrdered By: geena Payne on 08-23-2024 Erythrocyte distribution width (RBC) [Ratio] 47.5 fl High 35.1-43.9 [facility] Estimated glomerular filtrat ion rate (GFR) AmericanOrdered By: Pete Payne on 08-23-2024 Estimated GFR (MDRD) Amer 69 mL/min >60 [facility] Comment on above: GFR Calc Glomerular filtration rate ( GFR) estimationOrdered By: Pete Payne on 08-23-2024 Estimated GFR (MDRD) Non-Af Amer 57 mL/min Low >60 [facility] Comment on above: Non- GFR Calc GFR/1.73 sq M.predicted among non-blacks MDRD (S/P/Bld) [Vol rate/Area] 57 mL/min/{1.73_m2} Low >60 [facility] Comment on above: Non- GFR Calc Glucose measurementOrdered B y: Pete Payne on 08-23-2024 Glucose [Mass/Vol] 122 mg/dL High 74-106 [facility] Comment on above: Fasting Glucose resu lt from 100 to 125 mg/dL suggests IMPAIRED HOMEOSTASIS per A.D.A. criteria. Hematocrit Auto (Bld) [Volum e fraction]Ordered By: Pete Payne on 08-23-2024 Hematocrit (Bld) [Volume fraction] 34.2 % Low 37-47 [facility] Hemoglobin A1c percentageOrd ered By: Pete Payne on 08-23-2024 HbA1c (Bld) [Mass fraction] 6.5 % High 3.8-5.6 [facility] Comment on above: Normal < 5.7 % Predi abetic 5.7 - 6.4 % Diabetic >or= 6.5 % Please note range changes. Hemoglobin measurementOrdere d By: Pete Payne on 08-23-2024 Hemoglobin (Bld) [Mass/Vol] 11.0 g/dL Low 12.0-15.0 [facility] Immature granulocytes/100 WB C Auto (Bld)Ordered By: Pete Payne on 08-23-2024 Immature granulocytes/100 WBC (Bld) 0.600 % 0.0-0.9 [facility] Comment on above: IG% - Immature Granu locytes (promyelocytes, myelocytes and metamyelocytes) > 1% indicates that a LEFT SHIFT is Present. Laboratory - Chemistry and C hemistry - challengeOrdered By: Pete Payne on 08-23-2024 AST [Catalytic activity/Vol] 12 U/L Low 15-37 [facility] Lymphocytes Auto (Unsp spec) [#/Vol]Ordered By: ePte Payne on 08-23-2024 Lymphocytes (Bld) [#/Vol] 2.44 10*3/uL 0.83-4.51 [facility] Lymphocytes/100 WBC Auto (Un sp spec)Ordered By: Pete Payne on 08-23-2024 Lymphocytes/100 WBC (Bld) 27.5 % 19-41 [facility] MCV (mean corpuscular volume ) determinationOrdered By: Pete Payne on 08-23-2024 MCV (RBC) [Entitic vol] 93.4 fL 81-99 [facility] Mean corpuscular hemoglobin (MCH) determinationOrdered By: Pete Payne on 08-23-2024 MCH (RBC) [Entitic mass] 30.1 pg 27.0-32.0 [facility] Mean corpuscular hemoglobin concentration (MCHC) determinationOrdered By: [facility] on 08-23-2024 MCHC (RBC) [Mass/Vol] 32.2 g/dL 32-36 [facility] Mean platelet volume determi nationOrdered By: alexisperkiomenvillesudarshan Payne on 08-23-2024 Platelet mean volume (Bld) [Entitic vol] 10.2 fL 6.2-12.0 [facility] Monocyte percentageOrdered B y: Pete Payne on 08-23-2024 Monocytes/100 WBC (Bld) 7.2 % 0-10 [facility] Neutrophil percentageOrdered By: alexisperkiomenvillesudarshan Payne on 08-23-2024 Neutrophils/100 WBC (Bld) 60.7 % 47-70 [facility] Nucleated red blood cell per centageOrdered By: geena Payne on 08-23-2024 Nucleated RBC/100 WBC (Bld) [Ratio] 0 % 0-5 [facility] Platelet countOrdered By: Celeste Payne on 08-23-2024 Platelets (Bld) [#/Vol] 352 10*3/uL 150-450 [facility] Potassium measurementOrdered By: Pete Payne on 08-23-2024 Potassium [Moles/Vol] 4.0 mmol/L 3.5-5.1 [facility] RBC Auto (Bld) [#/Vol]Ordere d By: Pete Payne on 08-23-2024 RBC (Bld) [#/Vol] 3.66 10*6/uL Low 4.2-5.4 [facility] Serum anion gap measurementO rdered By: Pete Payne on 08-23-2024 Anion gap [Moles/Vol] 8 mmol/L 5-15 [facility] Serum globulin measurementOr dered By: Pete Payne on 08-23-2024 Globulin (S) [Mass/Vol] 3.5 g/dL 2.2-4.2 [facility] Serum or plasma alanine castro otransferase (ALT) measurementOrdered By: Pete Payne on 08-23-2024 ALT [Catalytic activity/Vol] 12 U/L Low 13-56 [facility] Serum or plasma albumin karri urement (mass/volume)Ordered By: Pete Payne on 08-23-2024 Albumin [Mass/Vol] 2.6 g/dL Low 3.2-5.0 [facility] Serum or plasma alkaline corky sphatase measurementOrdered By: Pete Payne on 08-23-2024 ALP [Catalytic activity/Vol] 54 U/L 45-117 [facility] Serum or plasma calcium karri urement (mass/volume)Ordered By: Pete Payne on 08-23-2024 Calcium [Mass/Vol] 8.5 mg/dL 8.5-10.1 [facility] Serum or plasma creatinine m easurement (mass/volume)Ordered By: Pete Payne on 08-23-2024 Creatinine [Mass/Vol] 0.98 mg/dL 0.55-1.02 [facility] Comment on above: The validity of the calculated GFR & GFRAA in patients over 70 years has not been determined. Clinical correlation is essential. Serum or plasma thyroid stim ulating hormone (TSH) measurement (units/volume)Ordered By: Pete Beltranyulia on 08-23-2024 TSH Qn 3.840 uIU/mL High 0.358-3.740 [facility] Serum or plasma urea nitroge n measurement (mass/volume)Ordered By: Celestealexiskeishasudarshan Pfeifferriteshyulia on 08-23-2024 Urea nitrogen [Mass/Vol] 19 mg/dL High 7-18 [facility] Sodium levelOrdered By: Saturnino rodríguez Kentrellsarthak on 08-23-2024 Sodium [Moles/Vol] 141 mmol/L 136-145 [facility] TSH QnOrdered By: Pete Payne on 08-23-2024 Thyroid Stimulating Hormone (TSH) 3.840 uIU/mL High 0.358-3.740 [facility] Total proteinOrdered By: Ramsey Payne on 08-23-2024 Protein [Mass/Vol] 6.1 g/dL Low 6.4-8.2 [facility] White blood cell (WBC) count Ordered By: Pete Kentrellsarthak on 08-23-2024 WBC (Bld) [#/Vol] 8.9 10*3/uL 4.4-11.0 [facility] TSH QnOrdered By: Pete Kentrellsarthak on 07-11-2024 Thyroid Stimulating Hormone (TSH) 3.030 uIU/mL 0.358-3.740 [facility] Absolute lymphocyte countOrd ered By: Pete Kentrellriteshyulia on 08-25-2023 Lymphocytes Auto (Unsp spec) [#/Vol] 2.56 10*3/uL 0.83-4.51 [facility] Automated lymphocyte count a s percentage of total leukocytesOrdered By: Pete Kentrellriteshyulia on 08-25-2023 Lymphocytes/100 WBC Auto (Unsp spec) 28.1 % 19-41 [facility] Basophil percentageOrdered B y: Nithinsudarshan Pfeifferriteshyulia on 08-25-2023 Basophils/100 WBC (Bld) 1.0 % 0-1 [facility] Bilirubin [Mass/Vol] 1.00 mg/dL 0.20-1.00 [facility] Comment on above: For patients on eltr ombopag therapy, use of Dimension [place] TBIL is not recommended. Chloride [Moles/Vol] 107 mmol/L 98-107 [facility] Eosinophils/100 WBC (Bld) 3.4 % 0-5 [facility] Glucose [Mass/Vol] 143 mg/dL 74-106 [facility] Comment on above: Fasting Glucose resu lt greater than or equal to 126 mg/dL suggests DIABETES MELLITUS per A.D.A. criteria. Hemoglobin (Bld) [Mass/Vol] 11.1 g/dL 12.0-15.0 [facility] Monocytes/100 WBC (Bld) 6.9 % 0-10 [facility] Neutrophils (Bld) [#/Vol] 5.5 10*3/uL 2.0-7.7 [facility] Neutrophils/100 WBC (Bld) 60.3 % 47-70 [facility] Potassium [Moles/Vol] 4.1 mmol/L 3.5-5.1 [facility] Protein [Mass/Vol] 6.8 g/dL 6.4-8.2 [facility] Sodium [Moles/Vol] 140 mmol/L 136-145 [facility] WBC (Bld) [#/Vol] 9.1 10*3/uL 4.4-11.0 [facility] Determination of erythrocyte mean corpuscular volume (MCV)Ordered By: Pete Payne on 08-25-2023 MCV (RBC) [Entitic vol] 93.5 fL 81-99 [facility] Erythrocyte distribution wid th ratioOrdered By: Pete Payne on 08-25-2023 Erythrocyte distribution width (RBC) [Ratio] 12.9 % 11.6-14.6 [facility] Erythrocyte distribution wid th standard deviationOrdered By: Pete Payne on 08-25-2023 Erythrocyte distribution width (RBC) [Entitic vol] 44.3 fL 35.1-43.9 [facility] Hematocrit Auto (Bld) [Volum e fraction]Ordered By: Pete Payne on 08-25-2023 Hematocrit (Bld) [Volume fraction] 34.5 % 37-47 [facility] Immature granulocytes/100 WB C Auto (Bld)Ordered By: Pete Payne on 08-25-2023 Immature granulocytes/100 WBC (Bld) 0.300 % 0.0-0.9 [facility] Comment on above: IG% - Immature Granu locytes (promyelocytes, myelocytes and metamyelocytes) > 1% indicates that a LEFT SHIFT is Present. Laboratory - Chemistry and C hemistry - challengeOrdered By: Pete Payne on 08-25-2023 Albumin/Globulin [Mass ratio] 0.8 {ratio} 0.9-2.4 [facility] ALP [Catalytic activity/Vol] 62 U/L 45-117 [facility] ALT [Catalytic activity/Vol] 14 U/L 13-56 [facility] CO2 [Moles/Vol] 25.0 mmol/L 21.0-32.0 [facility] Globulin (S) [Mass/Vol] 3.8 g/dL 2.2-4.2 [facility] Urea nitrogen/Creatinine [Mass ratio] 20.9 mg/mg 10-20 [facility] Laboratory - Hematology and Cell countsOrdered By: Pete Payne on 08-25-2023 MCH (RBC) [Entitic mass] 30.1 pg 27.0-32.0 [facility] MCHC (RBC) [Mass/Vol] 32.2 g/dL 32-36 [facility] Nucleated RBC/100 WBC (Bld) [Ratio] 0 % 0-5 [facility] Platelet mean volume (Bld) [Entitic vol] 10.2 fL 6.2-12.0 [facility] Platelets (Bld) [#/Vol] 373 10*3/uL 150-450 [facility] No Panel InformationOrdered By: Pete Payne on 08-25-2023 Estimated GFR (MDRD) Amer 71 mL/min >60 [facility] Comment on above: GFR Calc Estimated GFR (MDRD) Non-Af Amer 59 mL/min >60 [facility] Comment on above: Non- GFR Calc RBC Auto (Bld) [#/Vol]Ordere d By: Pete Payne on 08-25-2023 RBC (Bld) [#/Vol] 3.69 10*6/uL 4.2-5.4 [facility] Serum or plasma calcium karri urement (mass/volume)Ordered By: Pete Payne on 08-25-2023 Calcium [Mass/Vol] 9.4 mg/dL 8.5-10.1 [facility] Serum or plasma creatinine m easurement (mass/volume)Ordered By: Pete Payne on 08-25-2023 Creatinine [Mass/Vol] 0.96 mg/dL 0.55-1.02 [facility] Comment on above: The validity of the calculated GFR & GFRAA in patients over 70 years has not been determined. Clinical correlation is essential. Serum or plasma urea nitroge n measurement (mass/volume)Ordered By: Pete Payne on 08-25-2023 Urea nitrogen [Mass/Vol] 20 mg/dL 7-18 [facility] Thin prep Papanicolaou smear with manual screeningOrdered By: Pete Payne on 08-25-2023 Thin prep Papanicolaou smear with manual screening 3.0 g/dL 3.2-5.0 [facility] Thin prep Papanicolaou smear with manual screening 13 U/L 15-37 [facility] Thin prep Papanicolaou smear with manual screening 8 5-15 [facility] Whole blood hemoglobin A1c/t otal hemoglobin ratio (mass fraction)Ordered By: Pete Payne on 08-25-2023 HbA1c (Bld) [Mass fraction] 6.9 % 3.8-5.6 [facility] Comment on above: Normal < 5.7 % Predi abetic 5.7 - 6.4 % Diabetic >or= 6.5 % Please note range changes. Laboratory - Chemistry and C hemistry - challengeOrdered By: Pete Payne on 03-16-2023 Free T4 [Mass/Vol] 1.07 ng/dL 0.76-1.46 [facility] No Panel InformationOrdered By: Pete Payne on 03-16-2023 Thyroid Stimulating Hormone (TSH) 4.03 uIU/mL 0.358-3.74 [facility] Total Triiodothyronine 1.24 ng/mL 0.6-1.81 [facility] Absolute lymphocyte countOrd ered By: ePte Payne on 03-12-2023 Lymphocytes Auto (Unsp spec) [#/Vol] 2.46 10*3/uL 0.83-4.51 [facility] Basophil percentageOrdered B y: Pete Payne on 03-12-2023 Basophils/100 WBC (Bld) 1.1 % 0-1 [facility] Bilirubin [Mass/Vol] 0.70 mg/dL 0.20-1.00 [facility] Comment on above: For patients on eltr ombopag therapy, use of Dim[place] TBIL is not recommended. Chloride [Moles/Vol] 106 mmol/L 98-107 [facility] Cholesterol [Mass/Vol] 106 mg/dL <200 [facility] Comment on above: <200 mg/dL Desirable 200-240 mg/dL Borderline >240 mg/dL High Risk Eosinophils/100 WBC (Bld) 2.8 % 0-5 [facility] Glucose [Mass/Vol] 151 mg/dL 74-106 [facility] Comment on above: Fasting Glucose resu lt greater than or equal to 126 mg/dL suggests DIABETES MELLITUS per A.D.A. criteria. Neutrophils (Bld) [#/Vol] 4.8 10*3/uL 2.0-7.7 [facility] Neutrophils/100 WBC (Bld) 57.0 % 47-70 [facility] Potassium [Moles/Vol] 4.1 mmol/L 3.5-5.1 [facility] Protein [Mass/Vol] 6.3 g/dL 6.4-8.2 [facility] Sodium [Moles/Vol] 138 mmol/L 136-145 [facility] Triglyceride [Mass/Vol] 135 mg/dL <199 [facility] Comment on above: The drugs N-Acetylcy steine and Metamizole may falsely depress this assay.Serum Triglycerides Reference Interval Normal <150 mg/dL Borderline high 150 - 199 mg/dL High 200 - 499 mg/dL Very High > or = 500 mg/dL WBC (Bld) [#/Vol] 8.3 10*3/uL 4.4-11.0 [facility] Blood erythrocytes count (nu mber/volume)Ordered By: Pete Payne on 03-12-2023 RBC (Bld) [#/Vol] 3.59 10*6/uL 4.2-5.4 [facility] Blood hemoglobin measurement (mass/volume)Ordered By: Pete Payne on 03-12-2023 Hemoglobin (Bld) [Mass/Vol] 11.0 g/dL 12.0-15.0 [facility] Blood lymphocytes/100 leukoc ytesOrdered By: alexisperkiomenvillesudarshan Payne on 03-12-2023 Lymphocytes/100 WBC (Bld) 29.5 % 19-41 [facility] Blood monocytes/100 leukocyt esOrdered By: [facility] on 03-12-2023 Monocytes/100 WBC (Bld) 9.2 % 0-10 [facility] Blood platelet mean volumeOr dered By: alexisperkiomenvillesudarshan Payne on 03-12-2023 Platelet mean volume (Bld) [Entitic vol] 9.8 fL 6.2-12.0 [facility] Determination of erythrocyte mean corpuscular volume (MCV)Ordered By: Pete Payne on 03-12-2023 MCV (RBC) [Entitic vol] 93.9 fL 81-99 [facility] Hematocrit Auto (Bld) [Volum e fraction]Ordered By: Pete Payne on 03-12-2023 Hematocrit (Bld) [Volume fraction] 33.7 % 37-47 [facility] Laboratory - Chemistry and C hemistry - challengeOrdered By: alexisperkiomenvillesudarshan Payne on 03-12-2023 ALP [Catalytic activity/Vol] 57 U/L 45-117 [facility] ALT [Catalytic activity/Vol] 16 U/L 13-56 [facility] CO2 [Moles/Vol] 25.0 mmol/L 21.0-32.0 [facility] Globulin (S) [Mass/Vol] 3.4 g/dL 2.2-4.2 [facility] Urea nitrogen/Creatinine [Mass ratio] 16.0 mg/mg 10-20 [facility] Laboratory - Hematology and Cell countsOrdered By: Pete Payne on 03-12-2023 Erythrocyte distribution width (RBC) [Entitic vol] 42.9 fL 35.1-43.9 [facility] Erythrocyte distribution width (RBC) [Ratio] 12.4 % 11.6-14.6 [facility] Immature granulocytes/100 WBC (Bld) 0.400 % 0.0-0.9 [facility] Comment on above: IG% - Immature Granu locytes (promyelocytes, myelocytes and metamyelocytes) > 1% indicates that a LEFT SHIFT is Present. MCH (RBC) [Entitic mass] 30.6 pg 27.0-32.0 [facility] Nucleated RBC/100 WBC (Bld) [Ratio] 0 % 0-5 [facility] MCHC Auto (RBC) [Mass/Vol]Or dered By: Pete Payne on 03-12-2023 MCHC (RBC) [Mass/Vol] 32.6 g/dL 32-36 [facility] No Panel InformationOrdered By: Pete Payne on 03-12-2023 Estimated GFR (MDRD) Amer 63 mL/min >60 [facility] Comment on above: GFR Calc Estimated GFR (MDRD) Non-Af Amer 52 mL/min >60 [facility] Comment on above: Non- GFR Calc Thyroid Stimulating Hormone (TSH) 4.75 uIU/mL 0.358-3.74 [facility] Vitamin D 25-Hydroxy 107.1 ng/mL [facility] Comment on above: Vitamin D 25(OH) Sta [...] 03-12-2023 Platelets (Bld) [#/Vol] 361 10*3/uL 150-450 [facility] Serum or plasma albumin karri urement (mass/volume)Ordered By: Pete Payne on 03-12-2023 Albumin [Mass/Vol] 2.9 g/dL 3.2-5.0 [facility] Serum or plasma albumin/glob ulin mass ratioOrdered By: Pete Payne on 03-12-2023 Albumin/Globulin [Mass ratio] 0.9 {ratio} 0.9-2.4 [facility] Serum or plasma calcium karri urement (mass/volume)Ordered By: Pete Payne on 03-12-2023 Calcium [Mass/Vol] 9.0 mg/dL 8.5-10.1 [facility] Serum or plasma cholesterol in HDL measurement (mass/volume)Ordered By: Pete Payne on 03-12-2023 Cholesterol in HDL [Mass/Vol] 46 mg/dL >40 [facility] Comment on above: The drugs N-Acetylcy steine and Metamizole may falsely depress this assay. Reference Range HDL <40 mg/dL Low HDL Cholesterol HDL >or= 60 mg/dL High HDL Cholesterol Serum or plasma cholesterol in VLDL measurement (mass/volume)Ordered By: Pete Payne on 03-12-2023 Cholesterol in VLDL [Mass/Vol] 27 mg/dL 5-40 [facility] Serum or plasma creatinine m easurement (mass/volume)Ordered By: Pete Payne on 03-12-2023 Creatinine [Mass/Vol] 1.06 mg/dL 0.55-1.02 [facility] Comment on above: The validity of the calculated GFR & GFRAA in patients over 70 years has not been determined. Clinical correlation is essential. Serum or plasma low density lipoprotein (LDL) cholesterol measurement (mass/volume)Ordered By: Nithinsudarshan Pfeifferriteshyulia on 03-12-2023 Cholesterol in LDL [Mass/Vol] 33 mg/dL 0-130 [facility] Serum or plasma urea nitroge n measurement (mass/volume)Ordered By: Pete Kentrellriteshyulia on 03-12-2023 Urea nitrogen [Mass/Vol] 17 mg/dL 7-18 [facility] Thin prep Papanicolaou smear with manual screeningOrdered By: Pete Kentrellriteshyulia on 03-12-2023 Thin prep Papanicolaou smear with manual screening 13 U/L 15-37 [facility] Thin prep Papanicolaou smear with manual screening 7 5-15 [facility] Whole blood hemoglobin A1c/t otal hemoglobin ratio (mass fraction)Ordered By: Celestealexiskeishasudarshan Payne on 03-12-2023 HbA1c (Bld) [Mass fraction] 7.2 % 3.8-5.6 [facility] Comment on above: Normal < 5.7 % Predi abetic 5.7 - 6.4 % Diabetic >or= 6.5 % Please note range changes. Absolute lymphocyte countOrd ered By: Pete Kentrellriteshyulia on 12-01-2022 Lymphocytes Auto (Unsp spec) [#/Vol] 2.66 10*3/uL 0.83-4.51 [facility] Basophil percentageOrdered B y: Pete Payne on 12-01-2022 Basophils/100 WBC (Bld) 1.0 % 0-1 [facility] Bilirubin [Mass/Vol] 1.00 mg/dL 0.20-1.00 [facility] Comment on above: For patients on eltr ombopag therapy, use of [place] TBIL is not recommended. Chloride [Moles/Vol] 100 mmol/L 98-107 [facility] Eosinophils/100 WBC (Bld) 2.3 % 0-5 [facility] Glucose [Mass/Vol] 152 mg/dL 74-106 [facility] Comment on above: Fasting Glucose resu lt greater than or equal to 126 mg/dL suggests DIABETES MELLITUS per A.D.A. criteria. Neutrophils (Bld) [#/Vol] 5.8 10*3/uL 2.0-7.7 [facility] Neutrophils/100 WBC (Bld) 60.2 % 47-70 [facility] Potassium [Moles/Vol] 4.3 mmol/L 3.5-5.1 [facility] Protein [Mass/Vol] 6.1 g/dL 6.4-8.2 [facility] Sodium [Moles/Vol] 138 mmol/L 136-145 [facility] WBC (Bld) [#/Vol] 9.7 10*3/uL 4.4-11.0 [facility] Blood erythrocytes count (nu mber/volume)Ordered By: Pete Payne on 12-01-2022 RBC (Bld) [#/Vol] 3.46 10*6/uL 4.2-5.4 [facility] Blood hemoglobin measurement (mass/volume)Ordered By: Pete Payne on 12-01-2022 Hemoglobin (Bld) [Mass/Vol] 10.8 g/dL 12.0-15.0 [facility] Blood lymphocytes/100 leukoc ytesOrdered By: Pete Payne on 12-01-2022 Lymphocytes/100 WBC (Bld) 27.5 % 19-41 [facility] Blood monocytes/100 leukocyt esOrdered By: Pete Payne on 12-01-2022 Monocytes/100 WBC (Bld) 8.4 % 0-10 [facility] Blood platelet mean volumeOr dered By: Pete Payne on 12-01-2022 Platelet mean volume (Bld) [Entitic vol] 9.9 fL 6.2-12.0 [facility] Determination of erythrocyte mean corpuscular volume (MCV)Ordered By: Pete Payne on 12-01-2022 MCV (RBC) [Entitic vol] 97.1 fL 81-99 [facility] Hematocrit Auto (Bld) [Volum e fraction]Ordered By: Pete Payne on 12-01-2022 Hematocrit (Bld) [Volume fraction] 33.6 % 37-47 [facility] Laboratory - Chemistry and C hemistry - challengeOrdered By: Pete Payne on 12-01-2022 ALP [Catalytic activity/Vol] 60 U/L 45-117 [facility] ALT [Catalytic activity/Vol] 22 U/L 13-56 [facility] CO2 [Moles/Vol] 29.0 mmol/L 21.0-32.0 [facility] Globulin (S) [Mass/Vol] 3.3 g/dL 2.2-4.2 [facility] Urea nitrogen/Creatinine [Mass ratio] 16.1 mg/mg 10-20 [facility] Laboratory - Hematology and Cell countsOrdered By: Pete Payne on 12-01-2022 Erythrocyte distribution width (RBC) [Entitic vol] 44.6 fL 35.1-43.9 [facility] Erythrocyte distribution width (RBC) [Ratio] 12.5 % 11.6-14.6 [facility] Immature granulocytes/100 WBC (Bld) 0.600 % 0.0-0.9 [facility] Comment on above: IG% - Immature Granu locytes (promyelocytes, myelocytes and metamyelocytes) > 1% indicates that a LEFT SHIFT is Present. MCH (RBC) [Entitic mass] 31.2 pg 27.0-32.0 [facility] Nucleated RBC/100 WBC (Bld) [Ratio] 0 % 0-5 [facility] MCHC Auto (RBC) [Mass/Vol]Or dered By: Pete Payne on 12-01-2022 MCHC (RBC) [Mass/Vol] 32.1 g/dL 32-36 [facility] No Panel InformationOrdered By: Pete Payne on 12-01-2022 Estimated GFR (MDRD) Amer 59 mL/min >60 [facility] Comment on above: GFR Calc Estimated GFR (MDRD) Non-Af Amer 49 mL/min >60 [facility] Comment on above: Non- GFR Calc Platelets bldOrdered By: Ramsey Payne on 12-01-2022 Platelets (Bld) [#/Vol] 517 10*3/uL 150-450 [facility] Serum or plasma albumin karri urement (mass/volume)Ordered By: Pete Payne on 12-01-2022 Albumin [Mass/Vol] 2.8 g/dL 3.2-5.0 [facility] Serum or plasma albumin/glob ulin mass ratioOrdered By: Pete Payne on 12-01-2022 Albumin/Globulin [Mass ratio] 0.8 {ratio} 0.9-2.4 [facility] Serum or plasma calcium karri urement (mass/volume)Ordered By: Pete Payne on 12-01-2022 Calcium [Mass/Vol] 9.0 mg/dL 8.5-10.1 [facility] Serum or plasma creatinine m easurement (mass/volume)Ordered By: Pete Payne on 12-01-2022 Creatinine [Mass/Vol] 1.12 mg/dL 0.55-1.02 [facility] Comment on above: The validity of the calculated GFR & GFRAA in patients over 70 years has not been determined. Clinical correlation is essential. Serum or plasma urea nitroge n measurement (mass/volume)Ordered By: Pete Payne on 12-01-2022 Urea nitrogen [Mass/Vol] 18 mg/dL 7-18 [facility] Thin prep Papanicolaou smear with manual screeningOrdered By: geena Payne on 12-01-2022 Thin prep Papanicolaou smear with manual screening 15 U/L 15-37 [facility] Thin prep Papanicolaou smear with manual screening 9 5-15 [facility] Glucose Glucometer (BldC) [M ass/Vol]Ordered By: Dr. Crooks on 11-29-2022 Glucose [Mass/Vol] 95 mg/dL 74-106 [facility] Comment on above: MANAGEMENT OF PATIEN T CARE PER NURSING PROTOCOL Absolute lymphocyte countOrd ered By: Dr. Crooks on 11-28-2022 Lymphocytes Auto (Unsp spec) [#/Vol] 2.74 10*3/uL 0.83-4.51 [facility] Basophil percentageOrdered B y: Dr. Crooks on 11-28-2022 Basophils/100 WBC (Bld) 0.9 % 0-1 [facility] Chloride [Moles/Vol] 104 mmol/L 98-107 [facility] Eosinophils/100 WBC (Bld) 2.2 % 0-5 [facility] Glucose [Mass/Vol] 146 mg/dL 74-106 [facility] Comment on above: Fasting Glucose resu lt greater than or equal to 126 mg/dL suggests DIABETES MELLITUS per A.D.A. criteria. Neutrophils (Bld) [#/Vol] 7.4 10*3/uL 2.0-7.7 [facility] Neutrophils/100 WBC (Bld) 65.0 % 47-70 [facility] Potassium [Moles/Vol] 4.2 mmol/L 3.5-5.1 [facility] Sodium [Moles/Vol] 137 mmol/L 136-145 [facility] WBC (Bld) [#/Vol] 11.4 10*3/uL 4.4-11.0 [facility] Blood erythrocytes count (nu mber/volume)Ordered By: Dr. Crooks on 11-28-2022 RBC (Bld) [#/Vol] 3.62 10*6/uL 4.2-5.4 [facility] Blood hemoglobin measurement (mass/volume)Ordered By: Dr. Crooks on 11-28-2022 Hemoglobin (Bld) [Mass/Vol] 11.2 g/dL 12.0-15.0 [facility] Blood lymphocytes/100 leukoc ytesOrdered By: Dr. Crooks on 11-28-2022 Lymphocytes/100 WBC (Bld) 24.1 % 19-41 [facility] Blood monocytes/100 leukocyt esOrdered By: Dr. Crooks on 11-28-2022 Monocytes/100 WBC (Bld) 7.2 % 0-10 [facility] Blood platelet mean volumeOr dered By: Dr. Crooks on 11-28-2022 Platelet mean volume (Bld) [Entitic vol] 9.3 fL 6.2-12.0 [facility] Determination of erythrocyte mean corpuscular volume (MCV)Ordered By: Dr. Crooks on 11-28-2022 MCV (RBC) [Entitic vol] 96.4 fL 81-99 [facility] Glucose Glucometer (BldC) [M ass/Vol]Ordered By: Dr. Crooks on 11-28-2022 Glucose [Mass/Vol] 146 mg/dL 74-106 [facility] Comment on above: MANAGEMENT OF PATIEN T CARE PER NURSING PROTOCOL Hematocrit Auto (Bld) [Volum e fraction]Ordered By: Dr. Crooks on 11-28-2022 Hematocrit (Bld) [Volume fraction] 34.9 % 37-47 [facility] Laboratory - Chemistry and C hemistry - challengeOrdered By: Dr. Crooks on 11-28-2022 CO2 [Moles/Vol] 28.0 mmol/L 21.0-32.0 [facility] Urea nitrogen/Creatinine [Mass ratio] 18.2 mg/mg 10-20 [facility] Laboratory - Hematology and Cell countsOrdered By: Dr. Crooks on 11-28-2022 Erythrocyte distribution width (RBC) [Entitic vol] 43.3 fL 35.1-43.9 [facility] Erythrocyte distribution width (RBC) [Ratio] 12.4 % 11.6-14.6 [facility] Immature granulocytes/100 WBC (Bld) 0.600 % 0.0-0.9 [facility] Comment on above: IG% - Immature Granu locytes (promyelocytes, myelocytes and metamyelocytes) > 1% indicates that a LEFT SHIFT is Present. MCH (RBC) [Entitic mass] 30.9 pg 27.0-32.0 [facility] Nucleated RBC/100 WBC (Bld) [Ratio] 0 % 0-5 [facility] MCHC Auto (RBC) [Mass/Vol]Or dered By: Dr. Crooks on 11-28-2022 MCHC (RBC) [Mass/Vol] 32.1 g/dL 32-36 [facility] No Panel InformationOrdered By: Dr. Crooks on 11-28-2022 Estimated Creatinine Clearance Calc 37.22 ml/min [facility] Estimated GFR (MDRD) Amer 73 mL/min >60 [facility] Comment on above: GFR Calc Estimated GFR (MDRD) Non-Af Amer 61 mL/min >60 [facility] Comment on above: Non- GFR Calc Platelets bldOrdered By: Dr. Crooks on 11-28-2022 Platelets (Bld) [#/Vol] 445 10*3/uL 150-450 [facility] Serum or plasma calcium karri urement (mass/volume)Ordered By: Dr. Crooks on 11-28-2022 Calcium [Mass/Vol] 8.9 mg/dL 8.5-10.1 [facility] Serum or plasma creatinine m easurement (mass/volume)Ordered By: Dr. Crooks on 11-28-2022 Creatinine [Mass/Vol] 0.93 mg/dL 0.55-1.02 [facility] Comment on above: The validity of the calculated GFR & GFRAA in patients over 70 years has not been determined. Clinical correlation is essential. Serum or plasma urea nitroge n measurement (mass/volume)Ordered By: Dr. Crooks on 11-28-2022 Urea nitrogen [Mass/Vol] 17 mg/dL 7-18 [facility] Thin prep Papanicolaou smear with manual screeningOrdered By: Dr. Crooks on 11-28-2022 Thin prep Papanicolaou smear with manual screening 5 5-15 [facility] COVID-19 virus antigen assay Ordered By: Sylvester Crooks on 11-16-2022 SARS-CoV-2 (COVID-19) Ag IA.rapid Ql (Resp) [facility] COVID-19 virus antigen assay Ordered By: Dr. Crooks on 11-16-2022 SARS-CoV-2 (COVID-19) Ag IA.rapid Ql (Resp) [facility] Culture, urineOrdered By: Dr Néstor Crooks on 11-16-2022 Bacteria identified Cx Nom (U) Escherichia coli [facility] Bacteria identified Cx Nom (U) Klebsiella pneumoniae sp pneum [facility] Basophil percentageOrdered B y: Dr. Crooks on 11-14-2022 Basophil percentage 10-25 SEEN /hpf 0-5 [facility] Bilirubin Test strip Ql (U)O rdered By: Dr. Crooks on 11-14-2022 Bilirubin Ql (U) Negative Negative [facility] Culture, urineOrdered By: Raffi Crooks on 11-14-2022 Bacteria identified Cx Nom (U) Escherichia coli [facility] Bacteria identified Cx Nom (U) Klebsiella pneumoniae sp pneum [facility] Ketones Test strip Ql (U)Ord ered By: Dr. Crooks on 11-14-2022 Ketones Ql (U) Negative Negative [facility] Mucus LM Ql (Urine sed)Order ed By: Dr. Crooks on 11-14-2022 Mucus Ql (Urine sed) 0 SEEN /hpf [facility] Nitrite Test strip Ql (U)Ord ered By: Dr. Crooks on 11-14-2022 Nitrite Ql (U) Negative Negative [facility] No Panel InformationOrdered By: Dr. Crooks on 11-14-2022 Urine Transitional Epithelial Cells 0-5 SEEN /hpf 0-5 [facility] Protein Test strip Ql (U)Ord ered By: Dr. Crooks on 11-14-2022 Protein Ql (U) Negative Negative [facility] Squamous epithelial cells de tection in urine sediment by light microscopyOrdered By: Dr. Crooks on 11-14-2022 Epithelial cells.squamous LM Ql (Urine sed) 0-5 SEEN /hpf 5-10 [facility] Urine blood detectionOrdered By: Dr. Crooks on 11-14-2022 RBC Ql (U) 10 /ul Negative [facility] RBC Ql (U) 0-5 SEEN /hpf 0-5 [facility] Urine clarityOrdered By: Dr. Crooks on 11-14-2022 Clarity (U) Sl. Cloudy Clear [facility] Urine color determinationOrd ered By: Dr. Crooks on 11-14-2022 Color (U) Yellow Yellow [facility] Urine glucose detectionOrder ed By: Dr. Crooks on 11-14-2022 Glucose Ql (U) 100 mg/dl Normal [facility] Urine leukocyte esterase det ection by dipstickOrdered By: Dr. Crooks on 11-14-2022 Leukocyte esterase Test strip Ql (U) 100 /ul Negative [facility] Urine pHOrdered By: Dr. Crooks on 11-14-2022 pH (U) 6.0 [pH] 5.0 - 8.0 [facility] Urine sediment bacteria coun t by microscopy (number/high power field)Ordered By: Dr. Crooks on 11-14-2022 Bacteria LM.HPF (Urine sed) [#/Area] 1 /[HPF] None Seen [facility] Urine specific gravity measu rementOrdered By: Dr. Crooks on 11-14-2022 Specific gravity (U) [Rel density] 1.010 1.002-1.030 [facility] Urobilinogen Auto test strip Ql (U)Ordered By: Dr. Crooks on 11-14-2022 Urobilinogen Ql (U) Normal mg/dl Normal [facility] Absolute lymphocyte countOrd ered By: Dr. Betancur on 11-13-2022 Lymphocytes Auto (Unsp spec) [#/Vol] 3.26 10*3/uL 0.83-4.51 [facility] Basophil percentageOrdered B y: Dr. Betancur on 11-13-2022 Basophils/100 WBC (Bld) 0.7 % 0-1 [facility] Bilirubin [Mass/Vol] 1.00 mg/dL 0.20-1.00 [facility] Comment on above: For patients on eltr ombopag therapy, use of Dimension [place] TBIL is not recommended. Chloride [Moles/Vol] 106 mmol/L 98-107 [facility] Eosinophils/100 WBC (Bld) 1.7 % 0-5 [facility] Glucose [Mass/Vol] 150 mg/dL 74-106 [facility] Comment on above: Fasting Glucose resu lt greater than or equal to 126 mg/dL suggests DIABETES MELLITUS per A.D.A. criteria. Neutrophils (Bld) [#/Vol] 8.7 10*3/uL 2.0-7.7 [facility] Neutrophils/100 WBC (Bld) 66.3 % 47-70 [facility] Potassium [Moles/Vol] 3.9 mmol/L 3.5-5.1 [facility] Protein [Mass/Vol] 5.6 g/dL 6.4-8.2 [facility] Sodium [Moles/Vol] 132 mmol/L 136-145 [facility] WBC (Bld) [#/Vol] 13.2 10*3/uL 4.4-11.0 [facility] Blood erythrocytes count (nu mber/volume)Ordered By: Dr. Betancur on 11-13-2022 RBC (Bld) [#/Vol] 3.32 10*6/uL 4.2-5.4 [facility] Blood hemoglobin measurement (mass/volume)Ordered By: Dr. Betancur on 11-13-2022 Hemoglobin (Bld) [Mass/Vol] 10.5 g/dL 12.0-15.0 [facility] Blood lymphocytes/100 leukoc ytesOrdered By: Dr. Betancur on 11-13-2022 Lymphocytes/100 WBC (Bld) 24.7 % 19-41 [facility] Blood monocytes/100 leukocyt esOrdered By: Dr. Betancur on 11-13-2022 Monocytes/100 WBC (Bld) 6.2 % 0-10 [facility] Blood platelet mean volumeOr dered By: Dr. Betancur on 11-13-2022 Platelet mean volume (Bld) [Entitic vol] 8.6 fL 6.2-12.0 [facility] COVID-19 virus antigen assay Ordered By: Bernice Betancur on 11-13-2022 SARS-CoV-2 (COVID-19) Ag IA.rapid Ql (Resp) [facility] COVID-19 virus antigen assay Ordered By: Dr. Betancur on 11-13-2022 SARS-CoV-2 (COVID-19) Ag IA.rapid Ql (Resp) [facility] Determination of erythrocyte mean corpuscular volume (MCV)Ordered By: Dr. Betancur on 11-13-2022 MCV (RBC) [Entitic vol] 92.5 fL 81-99 [facility] Direct bilirubinOrdered By: Dr. Betancur on 11-13-2022 Bilirubin.direct [Mass/Vol] 0.34 mg/dL 0.00-0.30 [facility] Hematocrit Auto (Bld) [Volum e fraction]Ordered By: Dr. Betancur on 11-13-2022 Hematocrit (Bld) [Volume fraction] 30.7 % 37-47 [facility] Iron measurement (mass/mass) Ordered By: Dr. Betancur on 11-13-2022 Iron (Unsp spec) [Mass/Mass] 48 ug/dL 50-170 [facility] Laboratory - Chemistry and C hemistry - challengeOrdered By: Dr. Betancur on 11-13-2022 ALP [Catalytic activity/Vol] 35 U/L 45-117 [facility] ALT [Catalytic activity/Vol] 19 U/L 13-56 [facility] CO2 [Moles/Vol] 23.0 mmol/L 21.0-32.0 [facility] Cobalamin (Vitamin B12) [Mass/Vol] 583 pg/mL 211-911 [facility] Free T4 [Mass/Vol] 1.48 ng/dL 0.76-1.46 [facility] Globulin (S) [Mass/Vol] 2.8 g/dL 2.2-4.2 [facility] Urea nitrogen/Creatinine [Mass ratio] 17.2 mg/mg 10-20 [facility] Laboratory - Hematology and Cell countsOrdered By: Dr. Betancur on 11-13-2022 Erythrocyte distribution width (RBC) [Entitic vol] 42.5 fL 35.1-43.9 [facility] Erythrocyte distribution width (RBC) [Ratio] 12.7 % 11.6-14.6 [facility] Immature granulocytes/100 WBC (Bld) 0.400 % 0.0-0.9 [facility] Comment on above: IG% - Immature Granu locytes (promyelocytes, myelocytes and metamyelocytes) > 1% indicates that a LEFT SHIFT is Present. MCH (RBC) [Entitic mass] 31.6 pg 27.0-32.0 [facility] Nucleated RBC/100 WBC (Bld) [Ratio] 0 % 0-5 [facility] MCHC Auto (RBC) [Mass/Vol]Or dered By: Dr. Betancur on 11-13-2022 MCHC (RBC) [Mass/Vol] 34.2 g/dL 32-36 [facility] No Panel InformationOrdered By: Dr. Betancur on 11-13-2022 Estimated Creatinine Clearance Calc 35.38 ml/min [facility] Estimated GFR (MDRD) Amer 103 mL/min >60 [facility] Comment on above: GFR Calc Estimated GFR (MDRD) Non-Af Amer 85 mL/min >60 [facility] Comment on above: Non- GFR Calc Thyroid Stimulating Hormone (TSH) 1.14 uIU/mL 0.358-3.74 [facility] Total Iron Binding Capacity 214 ug/dL 250-450 [facility] Platelets bldOrdered By: Dr. Betancur on 11-13-2022 Platelets (Bld) [#/Vol] 370 10*3/uL 150-450 [facility] Serum or plasma albumin karri urement (mass/volume)Ordered By: Dr. Betancur on 11-13-2022 Albumin [Mass/Vol] 2.8 g/dL 3.2-5.0 [facility] Serum or plasma calcium karri urement (mass/volume)Ordered By: Dr. Betancur on 11-13-2022 Calcium [Mass/Vol] 8.3 mg/dL 8.5-10.1 [facility] Serum or plasma creatinine m easurement (mass/volume)Ordered By: Dr. Betancur on 11-13-2022 Creatinine [Mass/Vol] 0.70 mg/dL 0.55-1.02 [facility] Comment on above: The validity of the calculated GFR & GFRAA in patients over 70 years has not been determined. Clinical correlation is essential. Serum or plasma ferritin jolanta surement (mass/volume)Ordered By: Dr. Betancur on 11-13-2022 Ferritin [Mass/Vol] 195 ng/mL 8-252 [facility] Serum or plasma urea nitroge n measurement (mass/volume)Ordered By: Dr. Betancur on 11-13-2022 Urea nitrogen [Mass/Vol] 12 mg/dL 7-18 [facility] Thin prep Papanicolaou smear with manual screeningOrdered By: Dr. Betancur on 11-13-2022 Thin prep Papanicolaou smear with manual screening 16 U/L 15-37 [facility] Thin prep Papanicolaou smear with manual screening 3 5-15 [facility] Glucose Glucometer (BldC) [M ass/Vol]Ordered By: Dr. Brody on 11-12-2022 Glucose [Mass/Vol] 121 mg/dL 74-106 [facility] Comment on above: MANAGEMENT OF PATIEN T CARE PER NURSING PROTOCOL No Panel InformationOrdered By: Dr. Brody on 11-12-2022 Vitamin D 25-Hydroxy 43.8 ng/mL [facility] Comment on above: Vitamin D 25(OH) Sta tus Range Deficiency <20 ng/mL (50nmol/L) Insufficiency 20 - 30 ng/mL (50 - 75 nmol/L) Sufficiency 30 - 100 ng/mL (75 - 250 nmol/L) Toxicity >100 ng/mL (>250 nmol/L) Serum or plasma cortisol jolanta surement (mass/volume)Ordered By: Dr. Brody on 11-12-2022 Cortisol [Mass/Vol] 28.20 ug/dL 3.44-22.45 [facility] Comment on above: Adult (AM) 5.27 - 22 .45 ug/dL Adult (PM) 3.44 - 16.76 ug/dLPlease note revised CORTISOL reference range effective 2019. Whole blood hemoglobin A1c/t otal hemoglobin ratio (mass fraction)Ordered By: Dr. Betancur on 11-12-2022 HbA1c (Bld) [Mass fraction] 7.0 % 3.8-5.6 [facility] Comment on above: Normal < 5.7 % Predi abetic 5.7 - 6.4 % Diabetic >or= 6.5 % Please note range changes. Absolute lymphocyte countOrd ered By: Dr. Ewing on 11-11-2022 Lymphocytes Auto (Unsp spec) [#/Vol] 4.35 10*3/uL 0.83-4.51 [facility] Basophil percentageOrdered B y: Dr. Ewing on 11-11-2022 Basophil percentage 0 SEEN /hpf 0-5 [facility] Ammonia (P) [Moles/Vol] 16.0 umol/L 11-32 [facility] Basophils/100 WBC (Bld) 0.6 % 0-1 [facility] Bilirubin [Mass/Vol] 1.90 mg/dL 0.20-1.00 [facility] Comment on above: For patients on eltr ombopag therapy, use of Dimension [place] TBIL is not recommended. Chloride [Moles/Vol] 91 mmol/L 98-107 [facility] Eosinophils/100 WBC (Bld) 0.9 % 0-5 [facility] Glucose [Mass/Vol] 159 mg/dL 74-106 [facility] Comment on above: Fasting Glucose resu lt greater than or equal to 126 mg/dL suggests DIABETES MELLITUS per A.D.A. criteria. Neutrophils (Bld) [#/Vol] 8.3 10*3/uL 2.0-7.7 [facility] Neutrophils/100 WBC (Bld) 59.4 % 47-70 [facility] Potassium [Moles/Vol] 3.4 mmol/L 3.5-5.1 [facility] Protein [Mass/Vol] 7.4 g/dL 6.4-8.2 [facility] Sodium [Moles/Vol] 127 mmol/L 136-145 [facility] WBC (Bld) [#/Vol] 13.9 10*3/uL 4.4-11.0 [facility] Bilirubin Test strip Ql (U)O rdered By: Dr. Ewing on 11-11-2022 Bilirubin Ql (U) Negative Negative [facility] Blood erythrocytes count (nu mber/volume)Ordered By: Dr. Ewing on 11-11-2022 RBC (Bld) [#/Vol] 4.23 10*6/uL 4.2-5.4 [facility] Blood hemoglobin measurement (mass/volume)Ordered By: Dr. Ewing on 11-11-2022 Hemoglobin (Bld) [Mass/Vol] 13.5 g/dL 12.0-15.0 [facility] Blood lymphocytes/100 leukoc ytesOrdered By: Dr. Ewing on 11-11-2022 Lymphocytes/100 WBC (Bld) 31.3 % 19-41 [facility] Blood monocytes/100 leukocyt esOrdered By: Dr. Ewing on 11-11-2022 Monocytes/100 WBC (Bld) 7.4 % 0-10 [facility] Blood platelet mean volumeOr dered By: Dr. Ewing on 11-11-2022 Platelet mean volume (Bld) [Entitic vol] 8.8 fL 6.2-12.0 [facility] Determination of erythrocyte mean corpuscular volume (MCV)Ordered By: Dr. Ewing on 11-11-2022 MCV (RBC) [Entitic vol] 88.7 fL 81-99 [facility] Direct bilirubinOrdered By: Dr. Ewing on 11-11-2022 Bilirubin.direct [Mass/Vol] 0.47 mg/dL 0.00-0.30 [facility] Hematocrit Auto (Bld) [Volum e fraction]Ordered By: Dr. Ewing on 11-11-2022 Hematocrit (Bld) [Volume fraction] 37.5 % 37-47 [facility] Ketones Test strip Ql (U)Ord ered By: Dr. Ewing on 11-11-2022 Ketones Ql (U) 5 mg/dl Negative [facility] Laboratory - Chemistry and C hemistry - challengeOrdered By: Dr. Brody on 11-11-2022 Sodium (U) [Moles/Vol] 8 mmol/L Not Establ. [facility] Magnesium [Mass/Vol] 1.6 mg/dL 1.6-2.6 [facility] Laboratory - Chemistry and C hemistry - challengeOrdered By: Dr. Ewing on 11-11-2022 ALP [Catalytic activity/Vol] 45 U/L 45-117 [facility] ALT [Catalytic activity/Vol] 30 U/L 13-56 [facility] CO2 [Moles/Vol] 28.0 mmol/L 21.0-32.0 [facility] Globulin (S) [Mass/Vol] 3.5 g/dL 2.2-4.2 [facility] Urea nitrogen/Creatinine [Mass ratio] 16.2 mg/mg 10-20 [facility] Laboratory - Hematology and Cell countsOrdered By: Dr. Ewing on 11-11-2022 Erythrocyte distribution width (RBC) [Entitic vol] 39.2 fL 35.1-43.9 [facility] Erythrocyte distribution width (RBC) [Ratio] 12.0 % 11.6-14.6 [facility] Immature granulocytes/100 WBC (Bld) 0.400 % 0.0-0.9 [facility] Comment on above: IG% - Immature Granu locytes (promyelocytes, myelocytes and metamyelocytes) > 1% indicates that a LEFT SHIFT is Present. MCH (RBC) [Entitic mass] 31.9 pg 27.0-32.0 [facility] Nucleated RBC/100 WBC (Bld) [Ratio] 0 % 0-5 [facility] MCHC Auto (RBC) [Mass/Vol]Or dered By: Dr. Ewing on 11-11-2022 MCHC (RBC) [Mass/Vol] 36.0 g/dL 32-36 [facility] Mucus LM Ql (Urine sed)Order ed By: Dr. Ewing on 11-11-2022 Mucus Ql (Urine sed) 0 SEEN /hpf [facility] Nitrite Test strip Ql (U)Ord ered By: Dr. Ewing on 11-11-2022 Nitrite Ql (U) Negative Negative [facility] No Panel InformationOrdered By: Dr. Ewing on 11-11-2022 Estimated Creatinine Clearance Calc 27.90 ml/min [facility] Estimated GFR (MDRD) Amer 50 mL/min >60 [facility] Comment on above: GFR Calc Estimated GFR (MDRD) Non-Af Amer 41 mL/min >60 [facility] Comment on above: Non- GFR Calc Troponin I High Sensitivity 13 pg/mL 3.0-54.0 [facility] Comment on above: Please Note: New Denia t Units and Gender Specific Reference Ranges. For more information see Policy Stat Procedure [place] High Sensitivity Troponin (TNIH) and attachments. Platelets bldOrdered By: Dr. Ewing on 11-11-2022 Platelets (Bld) [#/Vol] 506 10*3/uL 150-450 [facility] Protein Test strip Ql (U)Ord ered By: Dr. Ewing on 11-11-2022 Protein Ql (U) Negative Negative [facility] Serum or plasma albumin karri urement (mass/volume)Ordered By: Dr. Ewing on 11-11-2022 Albumin [Mass/Vol] 3.9 g/dL 3.2-5.0 [facility] Serum or plasma calcium karri urement (mass/volume)Ordered By: Dr. Ewing on 11-11-2022 Calcium [Mass/Vol] 9.9 mg/dL 8.5-10.1 [facility] Serum or plasma creatinine m easurement (mass/volume)Ordered By: Dr. Ewing on 11-11-2022 Creatinine [Mass/Vol] 1.30 mg/dL 0.55-1.02 [facility] Comment on above: The validity of the calculated GFR & GFRAA in patients over 70 years has not been determined. Clinical correlation is essential. Serum or plasma urea nitroge n measurement (mass/volume)Ordered By: Dr. Ewing on 11-11-2022 Urea nitrogen [Mass/Vol] 21 mg/dL 7-18 [facility] Serum or plasma uric acid me asurement (mass/volume)Ordered By: Dr. Brody on 11-11-2022 Urate [Mass/Vol] 4.3 mg/dL 2.6-6.0 [facility] Comment on above: The drugs N-Acetylcy steine and Metamizole may falsely depress this assay. Squamous epithelial cells de tection in urine sediment by light microscopyOrdered By: Dr. Ewing on 11-11-2022 Epithelial cells.squamous LM Ql (Urine sed) 0 SEEN /hpf 5-10 [facility] Thin prep Papanicolaou smear with manual screeningOrdered By: Dr. Brody on 11-11-2022 Thin prep Papanicolaou smear with manual screening 277 mOsm/KG 280-301 [facility] Thin prep Papanicolaou smear with manual screeningOrdered By: Dr. Ewing on 11-11-2022 Thin prep Papanicolaou smear with manual screening 25 U/L 15-37 [facility] Thin prep Papanicolaou smear with manual screening 8 5-15 [facility] Urine blood detectionOrdered By: Dr. Ewing on 11-11-2022 RBC Ql (U) Negative Negative [facility] RBC Ql (U) 0 SEEN /hpf 0-5 [facility] Urine clarityOrdered By: Dr. Ewing on 11-11-2022 Clarity (U) Clear Clear [facility] Urine color determinationOrd ered By: Dr. Ewing on 11-11-2022 Color (U) Yellow Yellow [facility] Urine glucose detectionOrder ed By: Dr. Ewing on 11-11-2022 Glucose Ql (U) Normal mg/dl Normal [facility] Urine leukocyte esterase det ection by dipstickOrdered By: Dr. Ewing on 11-11-2022 Leukocyte esterase Test strip Ql (U) Negative Negative [facility] Urine osmolality measurement Ordered By: Dr. Brody on 11-11-2022 Osmolality (U) [Osmolality] 227 mOsm/KG >50 [facility] Comment on above: Normal Urine Referen ce Ranges Random: 50 - 1200 mOsm/kg H20 depending on fluid intake Random: >850 mOsm/kg after 12 hour fluid restriction 24 hour: ~300 - 900 mOsm/kg H2O Urine pHOrdered By: Dr. Atiya bender on 11-11-2022 pH (U) 6.0 [pH] 5.0 - 8.0 [facility] Urine sediment bacteria coun t by microscopy (number/high power field)Ordered By: Dr. Ewing on 11-11-2022 Bacteria LM.HPF (Urine sed) [#/Area] 0 /[HPF] None Seen [facility] Urine specific gravity measu rementOrdered By: Dr. Ewing on 11-11-2022 Specific gravity (U) [Rel density] 1.010 1.002-1.030 [facility] Urobilinogen Auto test strip Ql (U)Ordered By: Dr. Ewing on 11-11-2022 Urobilinogen Ql (U) Normal mg/dl Normal [facility] Vital Signs Date Time Vital Sign Value Performing Clinician Faci lity 05-05-2025 10:47-0400 Body height 147.[address] Pete Payne MD Work Phone: [facility] 11-04-2024 03:00-0400 Respiratory rate 16 /min Dr. Pete Payne MD Work Phone: [facility] 11-04-2024 00:21-0400 Body temperature 98.2 [degF] Dr. Ptee Payne MD Work Phone: [facility] 11-04-2024 00:21-0400 Diastolic blood pressure 60 mm[Hg] Dr. Pete Payne MD Work Phone: [facility] 11-04-2024 00:21-0400 Heart rate 84 /min Dr. Pete Payne MD Work Phone: [facility] 11-04-2024 00:21-0400 SaO2% (BldA) [Mass fraction] 97 % Dr. Pete Payne MD Work Phone: [facility] 11-04-2024 00:21-0400 Systolic blood pressure 143 mm[Hg] Dr. Pete Payne MD Work Phone: [facility] 11-03-2024 21:08-0400 Body height 147.[address] Pete Payne MD Work Phone: [facility] 11-03-2024 21:08-0400 Body mass index (BMI) [Ratio] 29.4 kg/m2 Dr. Pete Payne MD Work Phone: [facility] 11-03-2024 21:08-0400 Body weight 63.[address] Pete Payne MD Work Phone: [facility] 07-25-2023 13:00-0500 Body temperature 97.7 [degF] Dr. Pete Payne Work Phone: [facility] 07-25-2023 13:00-0500 Diastolic blood pressure 74 mm[Hg] Dr. Pete Payne Work Phone: [facility] 07-25-2023 13:00-0500 Heart rate 86 /min Dr. Pete Payne Work Phone: [facility] 07-25-2023 13:00-0500 Respiratory rate 16 /min Dr. Pete Payne Work Phone: [facility] 07-25-2023 13:00-0500 SaO2% (BldA) [Mass fraction] 98 % Dr. Pete aPyne Work Phone: [facility] 07-25-2023 13:00-0500 Systolic blood pressure 136 mm[Hg] Dr. Pete Payne Work Phone: [facility] 07-25-2023 08:00-0500 Body height 147.[address] Pete Payne Work Phone: [facility] 07-25-2023 08:00-0500 Body mass index (BMI) [Ratio] 29.2 kg/m2 Dr. Pete Payne Work Phone: [facility] 07-25-2023 08:00-0500 Body weight 63.[address] Pete Payne Work Phone: [facility] 01-20-2023 03:50-0400 Diastolic blood pressure 61 mm[Hg] Dr. Nancy Ewing Work Phone: [facility] 01-20-2023 03:50-0400 Heart rate 78 /min Dr. Nancy Ewing Work Phone: 2(846)128-350211 [place] [address] 01-20-2023 03:50-0400 Respiratory rate 18 /min Dr. Nancy Ewing Work Phone: 1(529)849-377911 [place] [address] 01-20-2023 03:50-0400 SaO2% (BldA) [Mass fraction] 97 % Dr. Nancy Ewing Work Phone: 6(575)361-200911 [place] [address] 01-20-2023 03:50-0400 Systolic blood pressure 146 mm[Hg] Dr. Nancy Ewing Work Phone: 3(226)077-952511 [place] [address] 01-20-2023 02:01-0400 Body height 147.[address] Nancy Ewing Work Phone: 4(891)696-352611 [place] [address] 01-20-2023 02:01-0400 Body mass index (BMI) [Ratio] 26.9 kg/m2 Dr. Nancy Ewing Work Phone: 0(269)446-003111 [place] [address] 01-20-2023 02:01-0400 Body temperature 97.5 [degF] Dr. Nancy Ewing Work Phone: 9(506)788-297911 [place] [address] 01-20-2023 02:01-0400 Body weight 58.[address] Nancy Ewing Work Phone: 5(063)996-207911 [place] [address] 11-29-2022 09:42-0400 Heart rate 92 /min Dr. Nancy Ewing Work Phone: 9(108)846-946011 [place] [address] 11-29-2022 09:42-0400 Respiratory rate 16 /min Dr. Nancy Ewing Work Phone: 5(759)496-014511 [place] [address] 11-29-2022 09:42-0400 SaO2% (BldA) [Mass fraction] 97 % Dr. Nancy Ewing Work Phone: 9(175)105-377811 [place] [address] 11-29-2022 09:41-0400 Body temperature 97.6 [degF] Dr. Nancy Ewing Work Phone: 7(677)366-322611 [place] [address] 11-29-2022 09:41-0400 Diastolic blood pressure 59 mm[Hg] Dr. Nancy Ewing Work Phone: [facility] 11-29-2022 09:41-0400 Systolic blood pressure 144 mm[Hg] Dr. Nancy Ewing Work Phone: [facility] 11-28-2022 13:27-0400 Body temperature 97.1 [degF] Dr. Nancy Ewing Work Phone: [facility] 11-28-2022 13:27-0400 Diastolic blood pressure 61 mm[Hg] Dr. Nancy Ewing Work Phone: [facility] 11-28-2022 13:27-0400 Heart rate 65 /min Dr. Nancy Ewing Work Phone: [facility] 11-28-2022 13:27-0400 Respiratory rate 16 /min Dr. Nancy Ewing Work Phone: [facility] 11-28-2022 13:27-0400 SaO2% (BldA) [Mass fraction] 95 % Dr. Nancy Ewing Work Phone: [facility] 11-28-2022 13:27-0400 Systolic blood pressure 133 mm[Hg] Dr. Nancy Ewing Work Phone: [facility] 11-26-2022 14:37-0400 Body height 147.[address] Nancy Ewing Work Phone: [facility] 11-26-2022 14:37-0400 Body weight 54.[address] Nancy Ewing Work Phone: [facility] 11-25-2022 12:48-0400 Body mass index (BMI) [Ratio] 25 kg/m2 Dr. Nancy Ewing Work Phone: [facility] 11-13-2022 14:35-0400 Body temperature 98 [degF] Dr. Nancy Ewing Work Phone: [facility] 11-13-2022 14:35-0400 Diastolic blood pressure 48 mm[Hg] Dr. Nancy Ewing Work Phone: [facility] 11-13-2022 14:35-0400 Heart rate 71 /min Dr. Nancy Ewing Work Phone: [facility] 11-13-2022 14:35-0400 Respiratory rate 18 /min Dr. Nancy Ewing Work Phone: [facility] 11-13-2022 14:35-0400 SaO2% (BldA) [Mass fraction] 100 % Dr. Nancy Ewing Work Phone: 2(205)131-476011 [place] [address] 11-13-2022 14:35-0400 Systolic blood pressure 123 mm[Hg] Dr. Nancy Ewing Work Phone: 9(062)418-217811 [place] [address] 11-12-2022 12:32-0400 Body height 147.[address] Nancy Ewing Work Phone: 4(924)766-426811 [place] [address] 11-12-2022 12:32-0400 Body weight 55.[address] Nancy Ewing Work Phone: [facility] 11-11-2022 22:57-0400 Body mass index (BMI) [Ratio] 25.5 kg/m2 Dr. Nancy Ewing Work Phone: [facility] 11-11-2022 21:44-0400 Body temperature 97.8 [degF] Dr. Nancy Ewing Work Phone: [facility] 11-11-2022 21:44-0400 Diastolic blood pressure 60 mm[Hg] Dr. Nancy Ewing Work Phone: [facility] 11-11-2022 21:44-0400 Heart rate 75 /min Dr. Nancy Ewing Work Phone: [facility] 11-11-2022 21:44-0400 Respiratory rate 17 /min Dr. Nancy Ewing Work Phone: [facility] 11-11-2022 21:44-0400 SaO2% (BldA) [Mass fraction] 100 % Dr. Nancy Ewing Work Phone: [facility] 11-11-2022 21:44-0400 Systolic blood pressure 134 mm[Hg] Dr. Nancy Ewing Work Phone: [facility] 11-11-2022 16:37-0400 Body height 147.[address] Nancy Ewing Work Phone: [facility] 11-11-2022 16:37-0400 Body mass index (BMI) [Ratio] 26.2 kg/m2 Dr. Nancy Ewing Work Phone: [facility] 11-11-2022 16:37-0400 Body weight 56.[address] Nancy Ewing Work Phone: [facility] Encounters Encounter Date Encounter Type Care Provider Facility Start: 05-23-2025 ambulatory [place] [facility] Fac[facility] ty:[facility] Start: 05-15-2025 ambulatory [place] [facility] Facili ty:[facility] Start: 05-02-2025 Registered Referred Pete Payne MD [facility] Start: 05-02-2025 End: 05-02-2025 ambulatory [place] O[facility]he OLS Facility:[facility] Start: 04-30-2025 [facility]istered Referred [facility] Start: 04-30-2025 End: 04-30-2025 ambulatory [place] Facility:[facility] Start: 03-28-2025 End: 03-28-[address] Pete Payne MD Work Phone: -[facility] Start: 03-28-2025 End: 03-28-[address] Pete Payne MD -[facility] Work Phone: Start: 03-21-2025 Registered Referred Efewongsudarshan Virk Start: 03-21-2025 End: 03-21-2025 ambulatory Pete Payne Facility:[facility] Start: 03-15-2025 Registered Referred Pete Virk Start: 03-15-2025 End: 03-15-2025 ambulatory Pete Payne Facility:[facility] Start: 02-23-2025 End: 02-23-[address] Pete Payne MD Work Phone: [facility] Start: 02-23-2025 End: 02-23-2025 Patient encounter procedure Mateo CRANDALL [facility] Work Phone: Start: 02-21-2025 ambulatory Celestegeena Payne Facili ty:[facility] Start: 02-21-2025 Registered Referred Pete Virk Start: 02-06-2025 End: 02-06-[address] Pete Payne MD Work Phone: -Ellie [facility] Start: 02-06-2025 End: 02-06-2025 Departed Referred Pete Virk Start: 02-06-2025 Registered Referred Pete Virk Start: 02-06-2025 End: 02-06-2025 ambulatory Pete ROBERTS Facility:[facility] Start: 01-17-2025 End: 01-17-[address] Pete Payne MD Work Phone: [facility] Start: 01-17-2025 End: 01-17-[address] Pete Payne MD [facility] Work Phone: Start: 01-13-2025 Registered Referred Pete Virk Start: 01-13-2025 End: 01-13-2025 ambulatory Efgeena ROBERTS Facility:[facility] Start: 01-03-2025 End: 01-03-[address] Pete Payne MD Work Phone: [facility] Start: 01-03-2025 End: 01-03-2025 Patient encounter procedure Poppy Mccracken AUDIO VIDEO TECHNICIANNadiaC -[facility] Work Phone: Start: 12-26-2024 ambulatory Pete ROBERTS Fa cility:[facility] Start: 12-26-2024 Registered Referred Pete Virk Start: 12-13-2024 End: 12-13-[address] Pete Payne MD Work Phone: [facility] Work Phone: Start: 12-13-2024 End: 12-13-2024 Departed Referred Pete Virk Start: 12-13-2024 Registered Referred Pete Virk Start: 12-13-2024 End: 12-13-2024 ambulatory Pete ROBERTS Facility:[facility] Start: 12-06-2024 End: 12-06-[address] Pete Payne MD Work Phone: [facility] Start: 12-06-2024 End: 12-06-[address] Pete Payne MD -[facility] Work Phone: Start: 11-22-2024 End: 11-22-[address] Pete Payne MD Work Phone: [facility] Work Phone: Start: 11-22-2024 End: 11-22-2024 Departed Referred Pete Virk Start: 11-22-2024 Registered Referred Pete Virk Start: 11-22-2024 End: 11-22-2024 ambulatory Pete ROBERTS Facility:[facility] Start: 11-14-2024 End: 11-14-[address] Pete Payne MD Work Phone: [facility] Work Phone: Start: 11-14-2024 End: 11-14-2024 Departed Referred Pete Virk Start: 11-14-2024 End: 11-14-2024 ambulatory Pete Payne OLS Facility:[facility] Start: 11-03-2024 End: 11-04-2024 Emergency department patient visit Dr. Pete Payne MD Work Phone: -Emergency Department Work Phone: Start: 10-21-2024 End: 10-21-2024 ambulatory Poppy Mccracken NP Facility:[facility] Start: 10-21-2024 End: 10-21-2024 Patient encounter procedure [facility] Start: 10-17-2024 End: 10-17-[address] Pete Payne MD Work Phone: [facility] Work Phone: Start: 10-17-2024 End: 10-17-2024 Departed Referred Pete Virk Start: 10-17-2024 Registered Referred Pete Virk Start: 10-17-2024 End: 10-17-2024 ambulatory Pete ROBERTS Facility:[facility] Start: 10-10-2024 End: 10-10-[address] Pete Payne MD Work Phone: [facility] Work Phone: Start: 10-10-2024 End: 10-10-2024 Departed Referred Pete Virk Start: 10-10-2024 Registered Referred Pete Montelongongton Start: 10-10-2024 End: 10-10-2024 ambulatory Pete ROBERTS Facility:[facility] Start: 10-06-2024 End: 10-06-[address] Pete Payne MD Work Phone: [facility] Work Phone: Start: 10-06-2024 End: 10-06-2024 Departed Referred Pete Virk Start: 10-06-2024 Registered Referred Peet Virk Start: 10-06-2024 End: 10-06-2024 ambulatory Pete ROBERTS Facility:[facility] Start: 10-03-2024 End: 10-03-[address] Pete Payne MD Work Phone: [facility] Work Phone: Start: 10-03-2024 End: 10-03-2024 Departed Referred Pete Virk Start: 10-03-2024 End: 10-03-2024 ambulatory Pete ROBERTS Facility:[facility] Start: 09-20-2024 End: 09-20-2024 ambulatory Pete Payne Facility:[facility] Start: 09-20-2024 End: 09-20-[address] Pete Payne MD -[facility] Work Phone: Start: 09-01-2024 End: 09-01-2024 ambulatory Mateo CRANDALL Facility:[facility] Start: 09-01-2024 End: 09-01-2024 Patient encounter procedure Mateo CRANDALL -[facility] Work Phone: Start: 08-23-2024 ambulatory Pete ROBERTS Fa cility:[facility] Start: 08-23-2024 Registered Referred Pete Virk Start: 07-11-2024 End: 07-11-2024 Departed Referred Pete Payne MD [facility] Start: 07-11-2024 End: 07-11-2024 ambulatory Pete Payne OLS Facility:[facility] Start: 06-21-2024 End: 06-21-2024 ambulatory Pete Beltranyulia Facility:[facility] Start: 06-21-2024 End: 06-21-2024 Patient encounter procedure Poppy BLANC -[facility] Work Phone: Start: 05-31-2024 End: 05-31-2024 ambulatory Pete Beltranyulia Facility:[facility] Start: 05-30-2024 End: 05-30-2024 ambulatory Saturninoanne Devinyulia OLS Facility:[facility] Start: 08-25-2023 End: 08-25-[address] Pete Payne Work Phone: [facility] Work Phone: Start: 08-25-2023 End: 08-25-[address] Pete Payne Work Phone: [facility] Start: 07-25-2023 End: 07-25-2023 Emergency department patient visit Dr. Pete Payne Work Phone: [facility] Work Phone: Start: 07-02-2023 End: 07-02-[address] Pete Payne Work Phone: [facility] Work Phone: Start: 06-02-2023 End: 06-02-[address] Pete Payne Work Phone: [facility] Work Phone: Start: 05-04-2023 End: 05-04-[address] Pete Payne Work Phone: [facility] Work Phone: Start: 03-31-2023 End: 03-31-[address] Pete Payne Work Phone: [facility] Work Phone: Start: 03-16-2023 End: 03-16-[address] Pete Payne Work Phone: [facility] Work Phone: Start: 03-16-2023 End: 03-16-[address] Pete Payne Work Phone: [facility] Start: 03-16-[address] Madison Payne Work Phone: [facility] Start: 03-14-2023 End: 03-14-[address] Pete Payne Work Phone: [facility] Work Phone: Start: 03-12-2023 End: 03-12-[address] Pete Payne Work Phone: [facility] Work Phone: Start: 03-12-2023 End: 03-12-[address] Pete Payne Work Phone: [facility] Start: 01-27-2023 End: 01-27-[address] Pete Payne Work Phone: [facility] Work Phone: Start: 01-20-2023 End: 01-20-2023 Emergency department patient visit Dr. Nancy Ewing Work Phone: [facility] Work Phone: Start: 12-23-2022 End: 12-23-[address] Pete Payne Work Phone: [facility] Work Phone: Start: 12-02-2022 End: 12-02-[address] Nancy Ewing Work Phone: [facility] Work Phone: Start: 12-01-2022 End: 12-01-[address] Nancy Ewing Work Phone: [facility] Work Phone: Start: 12-01-2022 End: 12-01-[address] Nancy Ewing Work Phone: [facility] Start: 11-24-2022 End: 11-24-[address] Nancy Ewing Work Phone: [facility] Work Phone: Start: 11-24-2022 End: 11-24-[address] Nancy Ewing Work Phone: [facility] Start: 11-13-2022 End: 11-29-2022 Evaluation and management of inpatient Dr. Nancy Ewing Work Phone: [facility] Start: 11-13-2022 Non-patient / Non-visit Dr. Christophe Ewing Work Phone: [facility] Start: 11-12-2022 Non-patient / Non-visit Dr. Christophe Ewing Work Phone: [facility] Start: 11-11-2022 Non-patient / Non-visit Dr. Christophe Ewing Work Phone: [facility] Start: 11-11-2022 End: 11-13-2022 Evaluation and management of inpatient Dr. Nancy Ewing Work Phone: [facility]Medical Surgical 3 Procedures Date Procedure Procedure Detail [...] Author Start: 05-15-2025 Registered Referred Registered Referred -[facility] Start: 11-04-2024 [facility] Start: 11-03-2024 Simple repair f/e/e/n/l/m 2.6cm-5.0 cm RPR F/E/E/N/L/M 2.6-5.0 CM [facility] Start: 07-25-2023 [facility] Start: 01-02-2023 Blood chemistry [facility] Start: 12-26-2022 Blood chemistry [facility] Start: 12-19-2022 Blood chemistry [facility] Start: 12-12-2022 Blood chemistry [facility] Start: 12-05-2022 Blood chemistry [facility] Start: 11-29-2022 Patient discharge [facility] Start: 11-28-2022 Development of care plan [facility] Start: 11-20-2022 [facility] Start: 11-20-2022 [facility] Start: 11-19-2022 Palliative care [facility] Start: 11-19-2022 [facility] Start: 11-18-2022 [facility] Start: 11-17-2022 [facility] Start: 11-16-2022 [facility] Start: 11-15-2022 [facility] Start: 11-14-2022 Developing a treatment plan [facility] Start: 11-14-2022 Speech therapy management [facility] Start: 11-14-2022 Development of care plan [facility] Start: 11-14-2022 End: 11-14-2022 [facility] Start: 11-13-2022 Patient referral to dietitian [facility] Start: 11-13-2022 Speech therapy assessment [facility] Start: 11-13-2022 Following clinical pathway protocol [facility] Start: 11-13-2022 Admission procedure [facility] Start: 11-13-2022 Measuring intake and output [facility] Start: 11-13-2022 Patient referral to dietitian [facility] Start: 11-13-2022 Referral to occupational therapist [facility] Start: 11-13-2022 Referral to service [facility] Start: 11-13-2022 Verification routine [facility] Start: 11-13-2022 Vital signs measurements [facility] Start: 11-13-2022 [facility] Start: 11-13-2022 Patient discharge [facility] Start: 11-12-2022 Vitamin D, 25-hydroxy measurement [facility] Start: 11-12-2022 [facility] Start: 11-12-2022 Patient referral to dietitian [facility] Start: 11-11-2022 Blood chemistry [facility] Start: 11-11-2022 Following clinical pathway protocol [facility] Start: 11-11-2022 Assessment of risk of venous thromboembolism [facility] Start: 11-11-2022 Insertion of catheter into peripheral vein [facility] Start: 11-11-2022 Oxygen therapy [facility] Start: 11-11-2022 Providing care according to standard [facility] Start: 11-11-2022 Provision of activity privileges [facility] Start: 11-11-2022 Referral to occupational therapist [facility] Start: 11-11-2022 Referral to service [facility] Start: 11-11-2022 [facility] Start: 11-11-2022 Verification routine [facility] Start: 11-11-2022 Admission procedure [facility] Start: 11-11-[facility]22 [facility] aminotransfe rase [Enzymatic activity/volume] in Serum or Plasma [facility] Albumin [Mass/volume ] in Serum or Plasma [facility] Alkaline phosphatase [Enzymatic activity/volume] in Serum or Plasma [facility] Anion gap measurement [facility] Anion gap measurement [facility] Anion gap measurement [facility] Anion gap measurement [facility] Anion gap measurement [facility] Anion gap measurement [facility] Aspartate aminotrans ferase [Enzymatic activity/volume] in Serum or Plasma [facility] Bilirubin, total measurement [facility] Bilirubin.direct [Mass/volume] in Serum or Plasma [facility] BUN/Creatinine ratio [facility] BUN/Creatinine ratio [facility] BUN/Creatinine ratio [facility] BUN/Creatinine ratio [facility] BUN/Creatinine ratio [facility] BUN/Creatinine ratio [facility] Calcium [Mass/volume ] in Serum or Plasma [facility] Calcium [Mass/volume ] in Serum or Plasma [facility] Calcium [Mass/volume ] in Serum or Plasma [facility] Calcium [Mass/volume ] in Serum or Plasma [facility] Calcium [Mass/volume ] in Serum or Plasma [facility] Calcium [Mass/volume ] in Serum or Plasma [facility] Carbon dioxide, tota l [Moles/volume] in Serum or Plasma [facility] Carbon dioxide, tota l [Moles/volume] in Serum or Plasma [facility] Carbon dioxide, tota l [Moles/volume] in Serum or Plasma [facility] Carbon dioxide, tota l [Moles/volume] in Serum or Plasma [facility] Carbon dioxide, tota l [Moles/volume] in Serum or Plasma [facility] Carbon dioxide, tota l [Moles/volume] in Serum or Plasma [facility] Chloride [Moles/volu me] in Serum or Plasma [facility] Chloride [Moles/volu me] in Serum or Plasma [facility] Chloride [Moles/volu me] in Serum or Plasma [facility] Chloride [Moles/volu me] in Serum or Plasma [facility] Chloride [Moles/volu me] in Serum or Plasma [facility] Chloride [Moles/volu me] in Serum or Plasma [facility] Cortisol [Mass/volum e] in Serum or Plasma [facility] Creatinine [Moles/vo lume] in Serum or Plasma [facility] Creatinine [Moles/vo lume] in Serum or Plasma [facility] Creatinine [Moles/vo lume] in Serum or Plasma [facility] Creatinine [Moles/vo lume] in Serum or Plasma [facility] Creatinine [Moles/vo lume] in Serum or Plasma [facility] Creatinine [Moles/vo lume] in Serum or Plasma [facility] Glucose [Mass/volume ] in Serum or Plasma [facility] Glucose [Mass/volume ] in Serum or Plasma [facility] Glucose [Mass/volume ] in Serum or Plasma [facility] Glucose [Mass/volume ] in Serum or Plasma [facility] Glucose [Mass/volume ] in Serum or Plasma [facility] Glucose [Mass/volume ] in Serum or Plasma [facility] Hematocrit [Volume Fraction] of Blood [facility] Hematocrit [Volume Fraction] of Blood [facility] Hematocrit [Volume Fraction] of Blood [facility] Hematocrit [Volume Fraction] of Blood [facility] Hematocrit [Volume Fraction] of Blood [facility] Hematocrit [Volume Fraction] of Blood [facility] Hemoglobin [Mass/vol ume] in Blood [facility] Hemoglobin [Mass/vol ume] in Blood [facility] Hemoglobin [Mass/vol ume] in Blood [facility] Hemoglobin [Mass/vol ume] in Blood [facility] Hemoglobin [Mass/vol ume] in Blood [facility] Hemoglobin [Mass/vol ume] in Blood [facility] Leukocytes [#/volume ] in Blood [facility] Leukocytes [#/volume ] in Blood [facility] Leukocytes [#/volume ] in Blood [facility] Leukocytes [#/volume ] in Blood [facility] Leukocytes [#/volume ] in Blood [facility] Leukocytes [#/volume ] in Blood [facility] Magnesium [Mass/volu me] in Serum or Plasma [facility] Mean corpuscular hem oglobin concentration determination [facility] Mean corpuscular hem oglobin concentration determination [facility] Mean corpuscular hem oglobin concentration determination [facility] Mean corpuscular hem oglobin concentration determination [facility] Mean corpuscular hem oglobin concentration determination [facility] Mean corpuscular hem oglobin concentration determination [facility] Mean corpuscular hem oglobin determination [facility] Mean corpuscular hem oglobin determination [facility] Mean corpuscular hem oglobin determination [facility] Mean corpuscular hem oglobin determination [facility] Mean corpuscular hem oglobin determination [facility] Mean corpuscular hem oglobin determination [facility] Measurement of renal function [facility] Measurement of renal function [facility] Measurement of renal function [facility] Measurement of renal function [facility] Measurement of renal function [facility] Measurement of renal function [facility] Neutrophil count [facility] Neutrophil count [facility] Neutrophil count [facility] Neutrophil count [facility] Neutrophil count [facility] Neutrophil count [facility] Neutrophil percent differential count [facility] Neutrophil percent differential count [facility] Neutrophil percent differential count [facility] Neutrophil percent differential count [facility] Neutrophil percent differential count [facility] Neutrophil percent differential count [facility] Patient Education [facility] Work Phone: Patient referral [facility] Work Phone: Platelets [#/volume] in Blood [facility] Platelets [#/volume] in Blood [facility] Platelets [#/volume] in Blood [facility] Platelets [#/volume] in Blood [facility] Platelets [#/volume] in Blood [facility] Platelets [#/volume] in Blood [facility] Potassium [Moles/vol ume] in Serum or Plasma [facility] Potassium [Moles/vol ume] in Serum or Plasma [facility] Potassium [Moles/vol ume] in Serum or Plasma [facility] Potassium [Moles/vol ume] in Serum or Plasma [facility] Potassium [Moles/vol ume] in Serum or Plasma [facility] Potassium [Moles/vol ume] in Serum or Plasma [facility] Red blood cell count [facility] Red blood cell count [facility] Red blood cell count [facility] Red blood cell count [facility] Red blood cell count [facility] Red blood cell count [facility] Red cell distributio n width determination [facility] Red cell distributio n width determination [facility] Red cell distributio n width determination [facility] Red cell distributio n width determination [facility] Red cell distributio n width determination [facility] Red cell distributio n width determination [facility] Sodium [Moles/volume ] in Serum or Plasma [facility] Sodium [Moles/volume ] in Serum or Plasma [facility] Sodium [Moles/volume ] in Serum or Plasma [facility] Sodium [Moles/volume ] in Serum or Plasma [facility] Sodium [Moles/volume ] in Serum or Plasma [facility] Sodium [Moles/volume ] in Serum or Plasma [facility] Total protein measurement [facility] Urate [Mass/volume] in Serum or Plasma [facility] Urea nitrogen [Mass/ volume] in Serum or Plasma [facility] Urea nitrogen [Mass/ volume] in Serum or Plasma [facility] Urea nitrogen [Mass/ volume] in Serum or Plasma [facility] Urea nitrogen [Mass/ volume] in Serum or Plasma [facility] Urea nitrogen [Mass/ volume] in Serum or Plasma [facility] Urea nitrogen [Mass/ volume] in Serum or Plasma [facility] Immunizations Immunization Date Immunization Notes Care Provider Fa cili 07-03-2022 Covid Pfizer Bivalen t Booster Dr. Nancy Ewing Work Phone: [facility] 06-06-2021 Covid (Pfizer) Dr. Nancy Ewing Work Phone: [facility] 08-16-2020 Covid (Pfizer) Dr. Nancy Ewing Work Phone: [facility] 07-26-2020 Covid (Pfizer) Dr. Nancy Ewing Work Phone: [facility] 07-20-2012 pneumococcal conjuga te vaccine, [address] Nancy Ewing Work Phone: [facility] 07-20-2001 pneumococcal vaccine , unspecified formulation Dr. Nancy Ewing Work Phone: [facility] Payers Date Payer Category Payer Medicaid [id number] 2024 Self-pay [id number] 2015 Private Health Insurance [id number] 2001 Medicare MEDICARE PART A B [id number] Unknown AARP MCR ADV [id number] Unknown [id number] Unknown [id number] 2.16.840.1.653469.3.579.2.462 Unknown [id number] 2.16.840.1.149579.3.579.2.462 Unknown [id number] 2.16.840.1.716350.3.579.2.462 Unknown [id number] 2.16.840.1.516386.3.579.2.462 Unknown [id number] 2.16.840.1.814234.3.579.2.462 Unknown [id number] 2.16.840.1.575220.3.579.2.462 Unknown [id number] 2.16.840.1.350182.3.579.2.462 Unknown [id number] 2.16.840.1.914679.3.579.2.462 Unknown [id number] 2.16.840.1.748465.3.579.2.462 Unknown [id number] 2.16.840.1.474533.3.579.2.462 Unknown [id number] 2.16.840.1.558012.3.579.2.462 Unknown [id number] 2.16.840.1.514087.3.579.2.462 Unknown [id number] 2.16.840.1.050025.3.579.2.462 Unknown [id number] 2.16.840.1.642395.3.579.2.462 Unknown [id number] 2.16.840.1.171680.3.579.2.462 Unknown [id number] 2.16.840.1.557268.3.579.2.462 Unknown [id number] 2.16.840.1.592235.3.579.2.462 Unknown [id number] 2.16.840.1.630403.3.579.2.462 Unknown [id number] 2.16.840.1.853904.3.579.2.462 Unknown [id number] 2.16.840.1.339037.3.579.2.462 Unknown [id number] 2.16.840.1.437049.3.579.2.462 Unknown [id number] 2.16.840.1.567203.3.579.2.462 Unknown [id number] 2.16.840.1.844657.3.579.2.462 Unknown [id number] 2.16.840.1.165603.3.579.2.462 Unknown [id number] 2.16.840.1.068431.3.579.2.462 Unknown [id number] 2.16.840.1.888038.3.579.2.462 Unknown [id number] 2.16.840.1.036927.3.579.2.462 Unknown [id number] Unknown [id number] Unknown [id number] Social History Date Type Detail Facility Start: 11-11-2022 End: 07-25-2023 Tobacco smoking status MIIS Unknown if ever smoked [facility] Start: 11-11-2022 Rare [facility] Start: 11-11-2022 None [facility] Start: 11-11-2022 Homeless [facility] Start: 11-11-2022 Non-smoker [facility] Start: 1935 Sex Assigned At Female W [facility] Start: 07-25-2023 End: 05-05-2025 Tobacco smoking status NHIS Never smoked tobacco (finding) [facility] Start: 10-19-2024 End: 11-08-2024 Sex Female (finding) [facility] Sex Female [facility] Goals Date Patient Goal Desired Activity /State Functional Status Date Assessment Result Facility 11-29-2022 Functional status Ambulates [facility] Work Phone: 11-28-2022 Functional status Ambulates [facility] Work Phone: 11-13-2022 Functional status 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 [facility] Work Phone: Mental Status Date Assessment Result Facility 07-25-2023 Cognitive function Voice/Name [facility] Work Phone: 11-29-2022 Cognitive function Voice/Name [facility] Work Phone: 11-27-2022 Cognitive function Voice/Name [facility] Work Phone: 11-26-2022 Cognitive function Appropriate;Cooperativ e [facility] Work Phone: 11-13-2022 Cognitive function Voice/Name [facility] Work Phone: Clinical Notes 11-12-2022 to 11-04-2024 Note Date & Type Note Facility 11-04-2024 Discharge summary Note Date/Time November 04, 2024 12:36am [facility] Medical Records Department [address] [place] [address] Emergency Department Summary 11/03/24 MR#: [id number] Acct: [id number] Name: MAXIME AMARAL Rep #:[id number] : 1935 89 From: Alirio Patel PCP: Dr. Pete Payne MD Status:R EG ER Location: ED HPI HPI - Fall History of Present Illness Chief Complaint: Fall Informant: patient and family Narrative Narrative: Patient brought in by EMS from [facility] witnessed fall head injury. Patient [...] paperwork. She has baseline per son. [facility] Medical History Dry eye syndrome of bilateral [...] clinician: N/A This note was generated with TrendPo dictation software. It may contain incorrectwords, spelling, and punctuation that were not noted in checking the note beforesigning. Radiography Diagnostic Testing: Clinical Impression(s) from Imaging Studies Shoulder X-Ray 11/03/24 21:48 IMPRESSION: NO ACUTE FRACTURE OR DISLOCATION. Reading Location: [facility] Brain CT 11/03/24 22:10 IMPRESSION: CHRONIC CHANGES. NO ACUTE FINDINGS. Reading Location: [facility] Cervical Spine CT 11/03/24 22:10 IMPRESSION: NO ACUTE CERVICAL FRACTURE. DEGENERATIVE CHANGES. No acute fracture or subluxation. Reading Location: [facility] Facial/Sinus 11/03/24 22:10 IMPRESSION: Small soft tissue laceration along the right supraorbital region. No acute fracture. Reading [facility] Discharge Plan Triage Chief Complaint: Fall Other [...] in 5 to 7 days. Print Language: Togolese Disposition Disposition: Home, Self Care What to do if you have Problems For any increased pain, shortness of breath, bleeding, nausea or vomiting, chestpain, or any unexpected problems, contact your Primary Care Provider. Call [facility] ([phone]) or report to the closest Emergency Room. Call 911 if necessary. 11/04/24 0036 <Electronically signed by Alirio Patel> Cosigner Signature (if applicable): CC: Dr. Pete Payne MD ~ Signed [facility] Work Phone: 1(977) 869-414104-18-2025 Discharge summary [facility] Medical Records Department [address] [place] [address] Emergency Department Summary 11/03/24 MR#: [id number] Acct: [id number] Name: MAXIME AMARAL Rep #:[id number] : 1935 89 From: Alirio Patel PCP: Dr. Pete Payne MD Status:R EG ER Location: ED HPI HPI - Fall History of Present Illness Chief Complaint: Fall Informant: patient and family Narrative Narrative: Patient brought in by EMS from [facility] witnessed fall head injury. Patient [...] paperwork. She has baseline per son. [facility] Medical History Dry eye syndrome of bilateral [...] clinician: N/A This note was generated with TrendPo dictation software. It may contain incorrectwords, spelling, and punctuation that were not noted in checking the note beforesigning. Radiography Diagnostic Testing: Clinical Impression(s) from Imaging Studies Shoulder X-Ray 11/03/24 21:48 IMPRESSION: NO ACUTE FRACTURE OR DISLOCATION. Reading Location: [facility] Brain CT 11/03/24 22:10 IMPRESSION: CHRONIC CHANGES. NO ACUTE FINDINGS. Reading [facility] Cervical Spine CT 11/03/24 22:10 IMPRESSION: NO ACUTE CERVICAL FRACTURE. DEGENERATIVE CHANGES. No acute fracture or subluxation. Reading Location: [facility] Facial/Sinus 11/03/24 22:10 IMPRESSION: Small soft tissue laceration along the right supraorbital region. No acute fracture. Reading Location: [facility] Discharge Plan Triage Chief Complaint: [...] in 5 to 7 days. Print Language: Togolese Disposition Disposition: Home, Self Care What to do if you have Problems For any increased pain, shortness of breath, bleeding, nausea or vomiting, chestpain, or any unexpected problems, contact your Primary Care Provider. Call [facility] ([phone]) or report tothe closest Emergency Room. Call 911 if necessary. 11/04/24 0036 Cosigner Signature (if applicable): CC: Dr. Pete Payne MD ~ Signed [facility]04-17-2025 Radiology Diagnostic study note [facility] Imaging Services [address] [place], [place] [id number] Spine Cervical without Contras MR#: [id number] Acct: [id number] Name: MAXIME AMARAL Rep #: [id number] : 1935 F 89 From: Steve Sotelo DO PCP: Dr. Pete Payne MD Status: R EG ER Study:Spine Cervical without Contras Date of Exam: 11/03/24 Exam# [id number] Ordering Dr: Alirio Edward DO PROCEDURE: SPINE [...] No acute fracture or subluxation. Reading Location: [facility] CC: Dr. Pete Payne MD; Dr. lAirio Edward DO ~ [employer] Supervisor: Signed [facility]04-17-2025 Radiology Diagnostic study note [facility] Imaging Services [facility] [place], [place] [id number] Sinus/Facial Bone MR#: [id number] Acct: [id number] Name: MAXIME AMARAL Rep #: [id number] : 1935 F 89 From: Steve Sotelo DO PCP: Dr. Pete Payne MD Status: R EG ER Study:Sinus/Facial Bone Date of Exam: Exam# [id number] Ordering Dr: Alirio Edward DO PROCEDURE: SINUS/FACIAL [...] supraorbital region. No acute fracture. Reading Location: [facility] CC: Dr. Pete Payne MD; Dr. Alirio Edward DO ~ [employer] Supervisor: Signed [facility]04-17-2025 Radiology Diagnostic study note [facility] Imaging Services [address] [place] [id number] Brain/Head without Contrast MR#: [id number] Acct: [id number] Name: MAXIME AMARAL Rep #: [id number] : 1935 F 89 From: Steve Sotelo DO PCP: Dr. Pete Payne MD Status: R ER Study:Brain/Head without Contrast Date of Exa m: 11/03/24 Exam# [id number] Ordering Dr: Alirio Edward DO PROCEDURE: BRAIN/HEAD [...] CHRONIC CHANGES. NO ACUTE FINDINGS. Reading Location: [facility] CC: Dr. Pete Payne MD; Dr. Alirio Edward DO ~ [employer] Supervisor: Signed [facility]04-17-2025 Radiology Diagnostic study note [facility] Imaging Services [address] [place] [address] Shoulder min 2 Views MR#: [id number] Acct: [id number] Name: MAXIME AMARAL Rep #: [id number] : 1935 F 89 From: Steve Sotelo DO PCP: Dr. Pete Payne MD Status: R EG ER Study:Shoulder min 2 Views Date of Exam: 11/03/24 Exam# [id number] Ordering Dr: Alirio Edward DO PROCEDURE: SHOULDER MIN 2 VIEWS 11/03/2024 REASON FOR EXAM: INJURY TECHNIQUE: 3 view(s) of the right shoulder COMPARISON: None FINDINGS: Bones: No acute fracture. Joints: Normal alignment of the acromioclavicular and glenohumeral joints. Soft tissues: Soft tissues are unremarkable. Other: RAD/Shoulder min 2 Views IMPRESSION: NO ACUTE FRACTURE OR DISLOCATION. Reading [facility] CC: Dr. Pete Payne MD; Dr. Alirio Edward DO ~ [employer] Supervisor: Signed [facility]01-06-2024 Discharge summary Author [facility] July 25, 2023 8:48am Note Date/Time July 25, 2023 8: 48am [facility] Medical Records Department [address] [facility] [place] [address] Emergency Department Summary 07/25/23 MR#: [id number] Acct: [id number] Name: MAXIME AMARAL Rep #:[id number] : 1935 87 From: Jos Rush DO [...] this time but otherwise denies any symptoms [facility] Medical History Alzheimer's disease, unspecified CKD (chronic [...] is otherwise safe to return to the custodial Radiography Diagnostic Testing: Clinical Impression(s) from Imaging [...] 6:45 EST Reading Location ID and State: [facility] / [place] Tel , Service support , Lower Extremity CT 07/25/23 06:44 IMPRESSION: 1. Small amount of presumed hemarthrosis or other complex mildly dense fluid in the suprapatellar bursa. No lipohemarthrosis or convincing acute fracture. 2. Irregular posterior-medial tibial plateau corner is not typical of acute fracture. Demineralization and degenerative changes. Electronically Signed: aGbrielle Gallegos MD at 8:18 EST Reading Location ID and State: [facility] / [place] Tel , Service support , Left hip [...] your Primary Care Provider. Call [facility] ([phone]) or report to the closest Emergency Room. Call 911 if necessary. 07/25/23 0848 <Electronically signed by Jos Rush DO> Cosigner Signature (if applicable): CC: Dr. Pete Payne MD ~ Signed [facility] Work Phone: 1(510) 636-814107-04-2023 Discharge summary Author [facility] January 20, 2023 4:32am Note Date/Time January 20, 2023 3:43a m [facility] Medical Records Department [address] [place] [address] Emergency Department Summary 01/20/23 MR#: [id number] Acct: [id number] Name: MAXIME AMARAL Rep #:[id number] : 1935 87 From: Jos Rush DO PCP: Dr. Pete Payne MD Status:R EG ER Location: ED HPI History of Present Illness Chief Complaint: Fall Informant: patient and EMS Limited: dementia Narrative Narrative: Patient is a 87-year-old female with past medical history of dementia who stays in a custodial in their dementia unit. Nursing reports that patient was reportedly wandering this evening and had a fall. They found the patient awake and alert but with trauma to her head/face. They deny any blood thinners but states secondary to the fall and patient complaining of pain in her knees and shoulders she was sent in for evaluation [facility] Medical History Alzheimer's disease, unspecified Depression, unspecified [...] your Primary Care Provider. Call [facility] ([phone]) or report to the closest Emergency Room. Call 911 if necessary. 01/20/23 0432 <Electronically signed by Jos Rush DO> Cosigner Signature (if applicable): CC: Dr. Pete Payne MD ~ Signed [facility] Work Phone: 1(311) 988-961905-10-[address] Crooks [facility] November 26, 2022 9:10pm Note Date/Time November 26, 2022 9:10p m [facility] Medical Records Department [address] [place] [address] Transfer to [facility] MR#: [id number] Acct: [id number] Name: MAXIME AMARAL Ellie Rep #:[id number] : 1935 87 From: Sylvester Crooks MD PCP: ALANNAH BENITO Status:ADM IN Certification of patient admission REQUIRED AT TIME OF ADMISSION. I CERTIFY THAT POST-HOSPITAL ECF SERVICES ARE REQUIRED TO BE GIVEN ON AN IN-PATIENT BASIS BECAUSE OF THE ABOVE NAMED PATIENT'S NEED FOR DETENTION CARE ON A CONTINUING BASIS FOR THE CONDITION(S) FOR WHICH HE/SHE WAS RECEIVING IN-PATIENT HOSPITAL SERVICES PRIOR TO HIS/HER TRANSFER TO THE F. 11/26/220<Electronically signed by Sylvester Crooks MD> Diet Diet Order/Speech Therapy: 04/27/23 16:54 Diet: Regular - General Food consistency:: [...] for rehabilitation, strengthening, prior to discharge to [facility]. * Debility - PT/OT. 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 * Alzheimer [...] Dao ; Tanisha Henriquez ; Britany White AUDIO VIDEO TECHNICIAN Instructions Additional Instructions / Restrictions: Discharge to [facility] 11/29/2022, intermediate. Discharge Orders/Prescriptions Prescriptions: [...] Crooks MD> Cosigner Signature (if applicable): CC: AUDIO VIDEO TECHNICIAN-Pérez Tafoya; AUDIO VIDEO TECHNICIANJavier Henriquez; JAYASHREE White; Dr. Steven Dean DO; Dr. Fany Dao MD; ALANNAH BENITO ~ [facility] Work Phone: [phone]) [phone] Crooks [facility] November 26, 2022 9:09pm Note Date/Time November 26, 2022 9:05p [facility] Medical Records Department [address] [place] [address] Discharge Summary 11/26/222103 MR#: [id number] Acct: [id number] Name: MAXIME AMARAL Rep #:[id number] : 1935 87 From: Sylvester Crooks MD PCP: ALANNAH BENITO Status:ADM IN Location: [place] [address] Providers Date of Admission: 11/13/22 Primary Care [...] for rehabilitation, strengthening, prior to discharge to [facility]. * Debility - PT/OT. * [...] - Bupropion XL 150mg daily, stable chronic care home use, GDR not recommended. * Alzheimer Disease [...] for rehabilitation, strengthening, prior to discharge to [facility]. Discharge to [facility] 11/29/2022, intermediate. Physical Exam Const [...] 11/26/22 14:47 HUSEYIN (Rec: 11/26/22 14:47 HUSEYIN [id number]) Nutrition Malnutrition Evidence of Malnutrition Exists Yes [...] and Uncontrolled pain Additional Instructions: Discharge to [facility] 11/29/2022, intermediate. Meaningful Use Info Meaningful Use Diagnoses (Choose all that apply): None applicable Discharge Plan Admission Admit Date/Time: 11/13/22 16:43 Primary Reason for Your Visit: Debility. Attending Provider: Sylvester Crooks Chi Primary Care Provider: ALANNAH BENITO Consulting Providers: Magnolia Tafoya ; Steven Dean ; Fany Dao ; Tanisha Henriquez ; Britany White AUDIO VIDEO TECHNICIAN Instructions Additional Instructions / Restrictions: Discharge to [facility] 11/29/2022, intermediate. Discharge Orders/Prescriptions Prescriptions: [...] Dr. Sylvester Crooks MD; ALANNAH BENITO~ Signed [facility] Work Phone: 1(558) 564-179405-03-2023 History and physical note Author Dr. Crooks [facility] November 19, 2022 5:00pm Note Date/Time November 13, 2022 7:4 6pm [facility] Medical Records Department [address] [place] [address] History & Physical Exam 11/13/221939 MR#: [id number] Acct: [id number] Name: MAXIME AMARAL Rep #:[id number] : 1935 87 From: Sylvester Crooks MD PCP: ALANNAH BENITO Status:ADM IN Location: [facility] TCU10-1 HPI - General General Date of Admission: 11/13/22 Date of Service: 11/13/22 Chief Complaint: Here for rehabilitation. HPI Narrative 11/11/2022 MAXIME AMARAL, is a 87 Female who presents to [facility] Emergency Department with nausea, vomiting, diarrhea. 11/11/2022 [...] for rehabilitation, strengthening, prior to discharge to [facility]. [facility] Medical History Alzheimer's disease, unspecified Depression, unspecified [...] for rehabilitation, strengthening, prior to discharge to [facility]. * Debility - PT/OT. 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 * Alzheimer [...] Sylvester Crooks MD; ALANNAH BENITO ~* Signed [facility] Work Phone: 1(368) 441-973804-28-[address] Crooks [facility] November 14, 2022 7:27pm Note Date/Time November 14, 2022 3:5 3pm [facility] Medical Records Department [address] [place] [address] [place] [address] Progress Note - Pharmacy 11/14/22 1531 MR#: [id number] Acct: [id number] Name: MAXIME AMARAL Rep #:[id number] : 1935 87 From: Roselyn Garzon PCP: ALANNAH BENITO Status:ADM IN Location: TCU [place] [address] TCU RX Drug Regimen Review Subjective: TCU [...] by Sylvester Crooks MD> CC: ~ Signed [facility] Work Phone: 1([phone]) 491-527404-27-[address] Betancur [facility] November 13, 2022 2:06pm Note Date/Time November 13, 2022 1:5 6pm [facility] Medical Records Department [address] [place], [place] [address] [place] [address] Transfer to [facility] MR#: [id number] Acct: [id number] Name: MAXIME AMARAL Rep #:[id number] : 1935 87 From: Bernice Betancur MD PCP: ALANNAH BENITO Status:ADM IN Certification of patient admission REQUIRED AT TIME OF ADMISSION. I CERTIFY THAT POST-HOSPITAL ECF SERVICES ARE REQUIRED TO BE GIVEN ON AN IN-PATIENT BASIS BECAUSE OF THE ABOVE NAMED PATIENT'S NEED FOR DETENTION CARE ON A CONTINUING BASIS FOR THE [...] with hypothyroidism and dementia who presented to [facility] 11/11/2022 with a sodium of 127 at [...] in before D/C Order can be placed): [facility] 11/13/22 1406 <Electronically signed by Bernice Betancur MD> Cosigner Signature (if applicable): CC: Dr. Ryder Brody MD; ALANNAH BENITO ~ [facility] Work Phone: 1(238) 265-429204-26-[address] Betancur [facility] November 12, 2022 4:53pm Note Date/Time November 12, 2022 7:0 0am [facility] Medical Records Department [address] [place] [address] Progress Note - Hospitalist 11/12/22 0659 MR#: [id number] Acct: [id number] Name: MAXIME AMARAL Rep #:[id number] : 1935 87 From: Bernice Betancur MD PCP: ALANNAH BENITO Status:ADM IN Location: [place] [address] Reason for Visit Reason for Visit: Diagnoses [...] % (Auto) 59.4, Lymph % (Auto) 31.3, Hardeman% (Auto) 7.4, Eos % (Auto) 0.9, Baso [...] Clarity Clear, Urine pH 6.0, Ur Specific [place] 1.010, Urine Protein Negative, Urine Glucose (UA) [...] % (Auto) Cancelled, Lymph % (Auto) Cancelled, Hardeman % (Auto) Cancelled, Eos % (Auto) Cancelled, [...] Drop Cells Cancelled, Ovalocytes Cancelled, Stomatocytes Cancelled, Babcock-Loami Bodies Cancelled, Rodolfo Cells Cancelled, Bite Cells [...] % (Auto) 63.6, Lymph % (Auto) 26.7, Hardeman % (Auto) 7.1, Eos % (Auto) 1.4, [...] Lovenox ordered. Charges/Coding Visit Charges Inpatient E&M: 87267 Subs Hosp L2 11/12/22 1653 <Electronically signed by Bernice Betancur MD> Cosigner Signature (if applicable): CC: ~ Signed [facility] Work Phone: 1([phone]) 550-782004-26-[address] Ewing [facility] November 11, 2022 11:41pm Note Date/Time November 11, 2022 5:3 3pm [facility] Medical Records Department [address] [place] [address] Emergency Department Summary 11/11/22 MR#: [id number] Acct: [id number] Name: MAXIME AMARAL Rep #:[id number] : 1935 87 From: Nancy Ewing MD PCP: ALANNAH BENITO Status:ADM IN Location: PR3 CN626-1 HPI History of Present Illness Chief Complaint: Nausea/Vomiting/Diarrhea Detail of Chief Complaint: Generalized weakness Informant: patient and family Onset/Context/Timing Onset: Weeks Narrative Narrative: Patient presents via EMS from assisted living at [facility]. Son is at bedside and provides [...] pain. She denies fever or cough. [facility] Medical History Alzheimer's disease, unspecified Depression, unspecified [...] Medical decision making narrative: Patient placed on floor installer. EKG obtained to evaluate for cardiac arrhythmia/ischemia. [...] % (Auto) 59.4 Lymph % (Auto) 31.3 Hardeman % (Auto) 7.4 Eos % (Auto) 0.9 [...] Color Urine Clarity Urine pH Ur Specific [place] Urine Protein Urine Glucose (UA) Urine Ketones Urine Occult Blood Urine Nitrite Urine Bilirubin Urine Urobilinogen Ur Leukocyte Esterase Urine RBC Urine WBC Ur Squamous Epith Cells Urine Bacteria Urine Mucus 11/11/22 19:47 WBC RBC Hgb Hct MCV MCH MCHC RDW Std Deviation RDW Coeff of Kristal Plt Count MPV Immature Gran % (Auto) Neut % (Auto) Lymph % (Auto) Hardeman % (Auto) Eos % (Auto) Baso % [...] Clarity Clear Urine pH 6.0 Ur Specific [place] 1.010 Urine Protein Negative Urine Glucose (UA) [...] - Disposition Disposition: Acute Care Hospital [facility] What to do if you have Problems For any increased pain, shortness of breath, bleeding, nausea or vomiting, chestpain, or any unexpected problems, contact your Primary Care Provider. Call [facility] ([phone]) or report to the closest Emergency Room. Call 911 if necessary. 11/11/222340 <Electronically signed by Nancy Ewing MD> Cosigner Signature (if applicable): CC: ALANNAH BENITO ~ Signed [facility] Work Phone: 1(744) 694-863604-26-2023 History and physical note Author Dr. Brody [facility] November 11, 2022 10:26pm Note Date/Time November 11, 2022 9:3 3pm [facility] Medical Records Department [address] [place] [address] H&P Exam - Hospitalist 11/11/222132 MR#: [id number] Acct: [id number] Name: MAXIME AMARAL Rep #:[id number] : 1935 87 From: Ryder Brody MD PCP: ALANNAH BENITO Status:ADM IN Location: [facility] KV883-1 HPI - General General Date of Admission: 11/11/22 Date of Service: 11/11/22 Chief Complaint: Abnormal labs HPI Narrative MAXIME AMARAL, is a 87 F with a significant history of hypothyroidism and dementia; and who lives at assisted medicine facility at [facility] presenting to the emergency department with [...] the emergency department patient could not urinate. [facility] Medical History Alzheimer's disease, unspecified Depression, unspecified [...] % (Auto) 59.4, Lymph % (Auto) 31.3, Hardeman % (Auto) 7.4, Eos % (Auto) 0.9, [...] Clarity Clear, Urine pH 6.0, Ur Specific [place] 1.010, Urine Protein Negative, Urine Glucose (UA) [...] Lovenox ordered. Charges/Coding Visit Charges Inpatient E&M: 03280 Init Hosp L3 11/11/226 <Electronically signed by Ryder Brody MD> Cosigner Signature (if applicable): CC: Dr. Ryder Brody MD; ALANNAH BENITO~ Signed [facility] Work Phone: Evaluation note* Diagnosis Onset Date Resolution Status Declining functional status acute Hypokalemia acute Hyponatremia acute Weakness acute Hypertension chronic [facility] Work Phone: Evaluation note* Diagnosis Onset Date Resolution Status Declining functional status acute Hyponatremia acute Hypertension chronic Alzheimer disease acute Debility acute Dehydration acute Depression acute Diabetes mellitus acute Hyperlipidemia acute Hyponatremia acute Hypothyroidism acute Hypertension chronic [facility] Work Phone: evaluation note* Diagnosis Onset Date Resolution Status Declining functional status acute Hyponatremia acute Hypertension chronic Alzheimer disease acute Debility acute Depression acute Diabetes mellitus acute Hyperlipidemia acute Hypothyroidism acute Hypertension chronic Dehydration resolved Hyponatremia resolved [facility] Work Phone: Evaluation noteNo assessment information available [facility] Work Phone: History and physical note Author Dr. Brody [facility] November 11, 2022 10:26pm Note Date/Time November 11, 2022 9:3 3pm [facility] Medical Records Department [address] [place] [id number] H&P Exam - Hospitalist 11/11/222132 MR#: [id number] Acct: [id number] Name: MAXIME AMARAL Rep #:[id number] : 1935 87 From: Ryder Brody MD PCP: ALANNAH BENITO Status:ADM IN Location: [facility] [id number] HPI - General General Date of Admission: 11/11/22 Date of Service: 11/11/22 Chief Complaint: Abnormal labs HPI Narrative MAXIME AMARAL, is a 87 F with a significant history of hypothyroidism and dementia; and who lives at assisted medicine facility at [facility] presenting to the emergency department with [...] the emergency department patient could not urinate. [facility] Medical History Alzheimer's disease, unspecified Depression, unspecified [...] % (Auto) 59.4, Lymph % (Auto) 31.3, [place] % (Auto) 7.4, Eos % (Auto) 0.9, [...] Clarity Clear, Urine pH 6.0, Ur Specific [place] 1.010, Urine Protein Negative, Urine Glucose (UA) [...] Lovenox ordered. Charges/Coding Visit Charges Inpatient E&M: 24697 Init Hosp L3 11/11/222225 <Electronically signed by Ryder Brody MD> Cosigner Signature (if applicable): CC: Dr. Ryder Brody MD; ALANNAH BENITO~ Signed [facility] Work Phone: Hospital Discharge instructions Additional Instructions CT head face and neck negative. Right shoulder x-ray negative. 7 sutures placed. Have removed in 5 to 7 days.[facility] Work Phone: Reason for referral (narrative)No reason for referral information available[facility] Work Phone: Chief Complaint and [...] Complaint MONTHLY EXAM UNWITNESSED FALL MONTHLY EXAM DETENTION LAB WORK MONTHLY EXAM NURISNG HOME LABWORK Chief Complaint MONTHLY EXAM MONTHLY EXAM MONTHLY EXAM FALL Chief Complaint MONTHLY EXAM MONTHLY EXAM FALL LABWORK Chief Complaint Admit Date NEW CONCERN June 21, 2024 5 :08pm DETENTION LAB WORK July 11 5:00am DETENTION LAB WORK August 23, 2024 5:00am MONTHLY EXAM September 01, 2024 11:29am LABWORK October 03, 2024 5:0 0am Chief Complaint Admit Date DETENTION LAB WORK July 11 5:00am DETENTION LAB WORK August 23, 2024 5:00am MONTHLY EXAM September 01, 2024 11:29am MONTHLY EXAM September 20, 2024 3:13 pm LABWORK October 03, 2024 5:0 0am DETENTION LAB WORK October 06, 2024 5 :00am Chief Complaint Admit Date DETENTION LAB WORK July 11 5:00am DETENTION LAB WORK August 23, 2024 5:00am MONTHLY EXAM September 01, 2024 11:29am MONTHLY EXAM September 20, 2024 3:13 pm LABWORK October 03, 2024 5:0 0am DETENTION LAB WORK October 06, 2024 5 :00am LABWORK October 10, 2024 5:0 0am Chief Complaint Admit Date DETENTION LAB WORK July 11 5:00am DETENTION LAB WORK August 23, 2024 5:00am MONTHLY EXAM September 01, 2024 11:29am MONTHLY EXAM September 20, 2024 3:13 pm LABWORK October 03, 2024 5:0 0am DETENTION LAB WORK October 06, 2024 5 :00am LABWORK October 10, 2024 5:0 0am FALL, LACERATION November 03, 2024 9:0 6pm Chief Complaint Admit Date DETENTION LAB WORK July 11 5:00am DETENTION LAB WORK August 23, 2024 5:00am MONTHLY EXAM September 01, 2024 11:29am MONTHLY EXAM September 20, 2024 3:13 pm LABWORK October 03, 2024 5:0 0am DETENTION LAB WORK October 06, 2024 5 :00am LABWORK October 10, 2024 5:0 0am DETENTION LAB WORK October 17, 2024 5 :00am FALL, LACERATION November 03, 2024 9:0 6pm Chief Complaint Admit Date MONTHLY EXAM September 01, 2024 11:29am MONTHLY EXAM September 20, 2024 3:13 pm LABWORK October 03, 2024 5:0 0am DETENTION LAB WORK October 06, 2024 5 :00am LABWORK October 10, 2024 5:0 0am DETENTION LAB WORK October 17, 2024 5 :00am MONTHLY EXAM October 21, 2024 1:47 pm FALL, LACERATION November 03, 2024 9:0 6pm DETENTION LAB WORK November 14, 2024 4 :00am DETENTION LAB WORK November 22, 2024 5:00 am DETENTION LAB WORK December 13, 2024 5:0 0am Chief Complaint Admit Date DETENTION LAB WORK August 23, 2024 5:00am MONTHLY EXAM September 01, 2024 11:29am MONTHLY EXAM September 20, 2024 3:13 pm LABWORK October 03, 2024 5:0 0am DETENTION LAB WORK October 06, 2024 5 :00am LABWORK October 10, 2024 5:0 0am DETENTION LAB WORK October 17, 2024 5 :00am MONTHLY EXAM October 21, 2024 1:47 pm FALL, LACERATION November 03, 2024 9:0 6pm DETENTION LAB WORK November 14, 2024 4 :00am DETENTION LAB WORK November 22, 2024 5:00 am Chief Complaint Admit Date DETENTION LAB WORK October 06, 2024 5 :00am LABWORK October 10, 2024 5:0 0am DETENTION LAB WORK October 17, 2024 5 :00am MONTHLY EXAM October 21, 2024 1:47 pm FALL, LACERATION November 03, 2024 9:0 6pm DETENTION LAB WORK November 14, 2024 4 :00am DETENTION LAB WORK November 22, 2024 5:00 am MONTHLY EXAM December 06, 2024 4:15p m DETENTION LAB WORK December 13, 2024 5:0 0am DETENTION LAB WORK December 26, 2024 4:0 0am Chief Complaint Admit Date DETENTION LAB WORK October 06, 2024 5 :00am LABWORK October 10, 2024 5:0 0am DETENTION LAB WORK October 17, 2024 5 :00am MONTHLY EXAM October 21, 2024 1:47 pm FALL, LACERATION November 03, 2024 9:0 6pm DETENTION LAB WORK November 14, 2024 4 :00am DETENTION LAB WORK November 22, 2024 5:00 am MONTHLY EXAM December 06, 2024 4:15p m DETENTION LAB WORK December 13, 2024 5:0 0am DETENTION LAB WORK December 26, 2024 4:0 0am MONTHLY EXAM January 03, 2025 6:30 pm Chief Complaint Admit Date FALL, LACERATION November 03, 2024 9:0 6pm DETENTION LAB WORK November 14, 2024 4 :00am DETENTION LAB WORK November 22, 2024 5:00 am MONTHLY EXAM December 06, 2024 4:15p m DETENTION LAB WORK December 13, 2024 5:0 0am DETENTION LAB WORK December 26, 2024 4:0 0am MONTHLY EXAM January 03, 2025 6:30 pm DETENTION LAB WORK January 13, 2025 5: 00am Monthly Exam January 17, 2025 5:25p m LABWORK February 06, 2025 5:00 am Chief Complaint Admit Date DETENTION LAB WORK November 22, 2024 5:00 am MONTHLY EXAM December 06, 2024 4:15p m DETENTION LAB WORK December 13, 2024 5:0 0am DETENTION LAB WORK December 26, 2024 4:0 0am MONTHLY EXAM January 03, 2025 6:30 pm DETENTION LAB WORK January 13, 2025 5: 00am Monthly Exam January 17, 2025 5:25p m LABWORK February 06, 2025 5:00 am DETENTION LAB WORK February 21, 2025 5 :00am MONTHLY EXAM February 23, 2025 10: 35am Chief Complaint Admit Date DETENTION LAB WORK December 26, 2024 4:0 0am MONTHLY EXAM January 03, 2025 6:30 pm DETENTION LAB WORK January 13, 2025 5: 00am Monthly Exam January 17, 2025 5:25p m LABWORK February 06, 2025 5:00 am DETENTION LAB WORK February 21, 2025 5 :00am MONTHLY EXAM February 23, 2025 10: 35am DETENTION LAB WORK March 15, 2025 5:00am DETENTION LAB WORK March 21 5:00am Chief Complaint Admit Date Monthly Exam January 17, 2025 5:25p m LABWORK February 06, 2025 5:00 am DETENTION LAB WORK February 21, 2025 5 :00am MONTHLY EXAM February 23, 2025 10: 35am DETENTION LAB WORK March 15, 2025 5:00am DETENTION LAB WORK March 21 5:00am MONTHLY EXAM March 28, 2025 12:49pm DETENTION LAB WORK May 02, 2025 4:18am Advance Directives No Advanced Directives Records Found Advance Directive Response Recorded Date/ Time Name of Medical Power of Auto Rental Clerk ? November 11, 2022 4:49pm Living Will Yes November 11, 2022 4:49pm Power of Auto Rental Clerk Yes November 11 4:49pm Advance Directive Response Recorded Date/ Time Name of Medical Power of Auto Rental Clerk Matilda Pritchett November 11, 2022 10:59pm Living Will Yes November 11, 2022 10:59pm Power of Auto Rental Clerk Yes November 11 10:59pm Advance Directive Response Recorded Date/ Time Name of Medical Power of Auto Rental Clerk Matilda Pritchett November 11, 2022 10:59pm Name of Medical Power of Auto Rental Clerk christine Pritchett November 14, 2022 10:44am Living Will Yes November 14, 2022 10:44am Power of Auto Rental Clerk Yes November 14 10:44am Advance Directive Response Recorded Date/ Time Living Will Yes November 14, 2022 10:44am Power of Auto Rental Clerk Yes November 14 10:44am Advance Directive Response Recorded Date/ Time Name of Medical Power of Auto Rental Clerk NYA MORRIS July 25, 2023 4:49am Living Will Yes July 25 4:49am Power of Auto Rental Clerk Yes July 25 4:49am Advance Directive Response Recorded Date/ Time Living Will Yes November 03, 2024 9:16pm Do you have a Healthcare Power of Auto Rental Clerk? Yes November 03, 2024 9:16pm Name of Medical Power of Auto Rental Clerk Daniel Amaral November 03, 2024 9:16pm Summary [...] 2024 End: October 21, 2024 Poppy Mccracken AUDIO VIDEO TECHNICIAN, AUDIO VIDEO TECHNICIAN-C Attending Provider Active Start: October 21, 2024 [...] Dr. Mariano Dao MD Family Provider Active [facility] Primary Care Provider Active Team Status: Active Member Role Status Dates Dr. Nancy Ewing MD Emergency Provider Active [facility] Primary Care Provider Active Dr. Ryder Brody MD Admit Provider, Attending Provider, Other Provider Active Team Status: Active Member Role Status Dates Dr. Nancy Ewing MD Emergency Provider Active [facility] Primary Care Provider Active Dr. Ryder Brody MD Admit Provider, Attending Pro vider Active Team Status: Active Member Role Status Dates Dr. Nancy Ewing MD Emergency Provider Active AL[facility]NA[facility] Primary Care Provider Active Dr. Ryder Brody MD Admit Provider, Other Provide r Active Dr. Bernice Betancur MD Attending Provider, Other Provid er Active Team Status: Inactive Member Role Status Dates Dr. Nancy Ewing MD Emergency Provider Active [facility] Primary Care Provider Active Dr. Ryder Brody MD Admit Provider, Other Provide r Active Dr. Bernice Betancur MD Attending Provider Active Team Status: Active Member Role Status THONG JAFFE Primary Care Provider Active Dr. Sylvester Crooks MD Admit Provider, Attending Provid er Active Magnolia Teach , AUDIO VIDEO TECHNICIAN-C Other Provider Active Dr. Steven Dean DO Other Provider Active Dr. Fnay Dao MD Other Provider Active Tanisha Henriquez AUDIO VIDEO TECHNICIAN-C Other Provider Active Britany White NP, AUDIO VIDEO TECHNICIAN-C Other Provider Active Team Status: Inactive Member Role Status Dates [facility] Active Dr. Sylvester Crooks MD Attending Provider, Referring Pr ovider Active Team Status: Inactive Member Role Status Dates [facility] Provider Active Dr. Sylvester Crooks MD Admit Provider, Attending Provid er Active Magnolia Teach , AUDIO VIDEO TECHNICIAN-C Other Provider Active Dr. Steven Dean DO Other Provider Active Dr. Fany Dao MD Other Provider Active Tanisha Henriquez AUDIO VIDEO TECHNICIAN-C Other Provider Active Britany White AUDIO VIDEO TECHNICIAN, AUDIO VIDEO TECHNICIAN-C Other Provider Active Team Status: Active Member Role Status Dates Dr. Mariano Dao MD Family Provider Active Dr. Pete Payne MD Primary Care Provider Active Team Status: Inactive Member Role Status Dates Out [facility] Doctor Primary Care Provider Active Dr. Pete Payne MD Attending Provider Active Team Status: Inactive Member Role Status Dates Out of [facility] Doctor Primary Care Provider Active Poppy Mccracken AUDIO VIDEO TECHNICIAN, AUDIO VIDEO TECHNICIAN-C Attending Provider Active Team Status: Inactive Member Role Status Dates Out [facility] Doctor Primary Care Provider [...] MD Primary Care Provider Active Poppy Mccracken AUDIO VIDEO TECHNICIAN, AUDIO VIDEO TECHNICIAN-C Attending Provider Active Team Status: Inactive Member [...] 2024 End: June 21, 2024 Poppy Mccracken AUDIO VIDEO TECHNICIAN, AUDIO VIDEO TECHNICIAN-C Attending Provider Active Start: June 21, 2024 [...] 2024 End: October 21, 2024 Poppy Mccracken AUDIO VIDEO TECHNICIAN, AUDIO VIDEO TECHNICIAN-C Attending Provider Active Start: October 21, 2024 [...] 2025 End: January 03, 2025 Poppy Mccracken AUDIO VIDEO TECHNICIAN, AUDIO VIDEO TECHNICIAN-C Attending Provider Active Start: January 03, 2025 [...] Inactive Member Role/Relationship Status Dates Dr. Pete Pyane MD Primary Care Provider Active Start: January 03, 2025 End: January 03, 2025 Poppy Mccracken NP, AUDIO VIDEO TECHNICIAN-C Attending Provider Active Start: January 03, 2025 [...] 2025 End: January 03, 2025 Poppy Mccracken AUDIO VIDEO TECHNICIAN, AUDIO VIDEO TECHNICIAN-C Attending Provider Active Start: January 03, 2025 [...] 2025 End: January 03, 2025 Poppy Mccracken AUDIO VIDEO TECHNICIAN, AUDIO VIDEO TECHNICIAN-C Attending physician Active Start: January 03, 2025 [...] physician Activ e Start: March 21, 2025 Peet ROBERTS MD Attending physician Active Start: March [...] physician Activ e Start: April 30, 2025 [facility] Attending physician Active Start: April 30, 2025 [...] ized section and content) DATE CREATED AUTHOR 05/24/[address] [facility] FOR RECORDS PERTAINING TO PATIENTS WHO [...] BE BASED ON THE PRIMARY CLINICAL RECORDS. [facility]. provides no warranty or guarantee of the accuracy or completeness of information in this document.
[2025-06-13 07:02] LABS: Hematocrit 37.6 % (37-47); Hemoglobin 12.3 g/dL (12.0-15.0); Immature Granulocytes Count 0.050 X10^3/uL (0.0-0.0); Mean Corp Hgb Conc 32.7 g/dL (32-36); Mean Corpuscular Volume 91.3 fL (81-99); Mean Platelet Vol. 9.7 fl (6.2-12.0); NRBC Flagged by Analyzer 0 % (0-5); Platelet Count 367 K/mm3 (150-450); RBC Distribution Width CV 13.7 % (11.6-14.6); RBC Distribution Width SD 46.1 fl (35.1-43.9); Red Blood Count 4.12 M/mm3 (4.2-5.4); White Blood Count 10.9 K/mm3 (4.4-11.0)
== END ==
LOC: OLS.WHLCAR 05:00
PROVIDERS: PCP Internal Medicine; Visit Provider Internal Medicine
DX: N18.9 Chronic kidney disease, unspecified (principal); D63.1 Anemia in chronic kidney disease; E03.9 Hypothyroidism, unspecified
CPT/HCPCS: 36415; 84443; 85025

== ENCOUNTER → 2025-07-11 04:00 | Outpatient (REF) | payer MEDICARE, MEDICAID, SELFPAY ==
--- OUTSIDE RECORDS SUMMARY | 2025-07-11 03:17 | XMS RPT_ITS | CCD ---
Author Organization [facility] Care Team Providers Care Hyperion Developer Name Role Phone Dr. Nancy Ewing Emergency Provider [phone] ALANNAH BENITO Primary Care Provider Unavail able Dr. Ryder Brody Admit Provider Dr. Ryder Brody Attending Provider Dr. Ryder Brody Other Provider ALANNAH BENITO Primary Care Provider Dr. Bernice Betancur Attending Provider Dr. Bernice Betancur Other Provider [facility] Doctor, Out of Primary Care Provider Silvia Mccracken PATTERN DRAFTER, PATTERN DRAFTER-C Poppy Attending Provider Dr. Pete Dietz Attending Provider [phone] Dr. Pete Payne Primary Care Provider [phone] Dr. Pete Payne Attending Provider [phone] Kaykay PATTERN DRAFTER, PATTERN DRAFTER-C Poppy Attending Provider Dr. Pete Dietz Primary Care Provider [phone] Dr. Pete Payne Attending Provider [phone] Kaykay PATTERN DRAFTER, PATTERN DRAFTER-C Poppy Attending Provider Dr. Pete Dietz Primary Care Provider [phone] Dr. Pete Payne Attending Provider [phone] Kaykay PATTERN DRAFTER, PATTERN DRAFTER-C Poppy Attending Provider Elmer SAMUELS, Dr. Freeman Primary Care Provider [place] PATTERN DRAFTER-C, Poppy Attending Provider Pete Payne MD Attending Provider UnavailMateo Cordova Attending Provider Elmer SAMUELS, Dr. Freeman Primary Care Provider Elmer SAMUELS, Dr. Freeman Attending Provider Cheyanne DRISCOLL, Dr. Amezquita Emergency Provider Elmer SAMUELS, Dr. Freeman Primary Care Provider Pete Payne MD Attending Provider Unavaila ble Ticknickie PATTERN DRAFTER-C, Poppy Attending Provider Cheyanne DRISCOLL, Dr. Amezquita Attending Provider Pete Payne MD Referring Provider Unavaildeisy Payne MD, Dr. Freeman Primary Care Provider Pete Pyane MD Attending Provider Unavaildeisy Payne MD, Dr. Freeman Primary Care Provider Pete Payne MD Attending Provider Unavaildeisy Payne MD, Dr. Freeman Attending Provider [phone] Elmer SAMUELS, Dr. Freeman Primary Care Provider Pete Payne MD Attending Provider Unavaila ble Kaykay PATTERN DRAFTER-CPoppy Attending Provider Elmer SAMUELS, Dr. Freeman Primary Care Provider Pete Payne MD Attending Provider UnavailPete Gaytan MD Referring Provider Unavaila Mateo Romero Attending Provider Elmer SAMUELS, Dr. Freeman Primary Care Physician Pete Payne MD Attending Physician Unavail able [place] PATTERN DRAFTER-CPoppy Attending Physician Elmer SAMUELS, Dr. Freeman Attending Physician Mateo Cardoza Attending Physician Elmer SAMUELS, Dr. Freeman Primary Care Physician Elmer SAMUELS, Pete Attending Physician Unavail able [facility] Attending Physician Violeta Pete Hood MD Referring [...] Oleghe, Efewongbe Primary Care Unavailable [facility] [place] Attending Unavail able Oleghe, Efewongbe Attending Unavailable Oleghe, Efewongbe Primary Care Unavailable Oleghe, Efewongbe Attending Unavailable Oleghe, Efewongbe Primary Care Unavailable Poppy Mccracken NP Attending Unavailable Oleghe, Efewongbe Primary Care Unavailable Mateo Cardoza Attending Unavailable Oleghe, Efewongbe Primary Care Unavailable Oleghe, Efewongbe Primary Care Unavailable Oleghe OLS, Efewongbe Attending Unavailabl e Oleghe, Efewongbe Primary Care Unavailable Kaykay PATTERN DRAFTERPoppy Attending Unavailable Oleghe OLS, Efewongbe Attending Unavailabl e Oleghe OLS, Efewongbe Referring Unavailabl e Oleghe, Efewongbe Primary Care Unavailable Oleghe, Efewongbe Primary Care Unavailable Oleghe, Efewongbe Attending Unavailable Kaykay PATTERN DRAFTERPoppy Attending Unavailable Oleghe, Efewongbe Primary Care Unavailable [...] Penicillins Propensity to adverse reactions 3 Diarrhea [facility] (1 source) Penicillins Drug allergy (disorder) 5 [facility] Repository Medications Current Medications Medication Drug [...] Auto (Unsp spec) [#/Vol] 2.71 10*3/uL 0.83-4.51 [facility] Absolute neutrophil countOrd ered By: Pete Payne on 05-15-2025 Neutrophils (Bld) [#/Vol] 5.7 10*3/uL 2.0-7.7 [facility] Automated lymphocyte count a s percentage of total leukocytesOrdered By: Pete Payne on 05-15-2025 Lymphocytes/100 WBC Auto (Unsp spec) 28.9 % 19-41 [facility] Basophil percentageOrdered B y: Pete Payne on 05-15-2025 Basophils/100 WBC (Bld) 0.9 % 0-1 [facility] Eosinophil percentageOrdered By: Pete Payne on 05-15-2025 Eosinophils/100 WBC (Bld) 1.9 % 0-5 [facility] Erythrocyte distribution wid th ratioOrdered By: Pete Payne on 05-15-2025 Erythrocyte distribution width (RBC) [Ratio] 13.2 % 11.6-14.6 [facility] Erythrocyte distribution wid th standard deviationOrdered By: Pete Payne on 05-15-2025 Erythrocyte distribution width (RBC) [Ratio] 44.3 fl High 35.1-43.9 [facility] Hematocrit Auto (Bld) [Volum e fraction]Ordered By: Pete Payne on 05-15-2025 Hematocrit (Bld) [Volume fraction] 36.2 % Low 37-47 [facility] Hemoglobin measurementOrdere d By: Pete Payne on 05-15-2025 Hemoglobin (Bld) [Mass/Vol] 12.0 g/dL 12.0-15.0 [facility] Immature granulocytes/100 WB C Auto (Bld)Ordered By: Pete Payne on 05-15-2025 Immature granulocytes/100 WBC (Bld) 0.500 % 0.0-0.9 [facility] Comment on above: IG% - Immature Granu locytes (promyelocytes, myelocytes and metamyelocytes) > 1% indicates that a LEFT SHIFT is Present. MCV (mean corpuscular volume ) determinationOrdered By: Pete Payne on 05-15-2025 MCV (RBC) [Entitic vol] 91.6 fL 81-99 [facility] Mean corpuscular hemoglobin (MCH) determinationOrdered By: Pete Payne on 05-15-2025 MCH (RBC) [Entitic mass] 30.4 pg 27.0-32.0 [facility] Mean corpuscular hemoglobin concentration (MCHC) determinationOrdered By: Pete Payne on 05-15-2025 MCHC (RBC) [Mass/Vol] 33.1 g/dL 32-36 [facility] Mean platelet volume determi nationOrdered By: Pete Payne on 05-15-2025 Platelet mean volume (Bld) [Entitic vol] 9.9 fL 6.2-12.0 [facility] Monocyte percentageOrdered B y: Saturninokeishasudarshan Pfeifferriteshyulia on 05-15-2025 Monocytes/100 WBC (Bld) 7.0 % 0-10 [facility] Neutrophil percentageOrdered By: Celestealexiskeishasudarshan Pfeifferriteshyulia on 05-15-2025 Neutrophils/100 WBC (Bld) 60.8 % 47-70 [facility] Nucleated red blood cell per centageOrdered By: Saturninokeishasudarshan Pfeifferriteshyulia on 05-15-2025 Nucleated RBC/100 WBC (Bld) [Ratio] 0 % 0-5 [facility] Platelet countOrdered By: Celeste terezasudarshan Payne on 05-15-2025 Platelets (Bld) [#/Vol] 357 10*3/uL 150-450 [facility] RBC Auto (Bld) [#/Vol]Ordere d By: Saturninokeishasudarshan Pfeifferriteshyulia on 05-15-2025 RBC (Bld) [#/Vol] 3.95 10*6/uL Low 4.2-5.4 [facility] White blood cell (WBC) count Ordered By: Pete Payne on 05-15-2025 WBC (Bld) [#/Vol] 9.4 10*3/uL 4.4-11.0 [facility] TSH DL <= 0.005 mIU/L QnOrde red By: Saturninokeishasudarshan Pfeifferriteshyulia on 05-02-2025 TSH Qn 2.410 uIU/mL 0.300-4.200 [facility] Clostridium difficile detect ion by polymerase chain reactionOrdered By: [facility] on 04-30-2025 C. difficile DNA KISHORE+probe Ql (Unsp spec) [facility] Anion gap in Serum or Plasma Ordered By: Pete Payne on 03-21-2025 Anion gap [Moles/Vol] 11 mmol/L 5-15 [facility] BUN/creatinine ratioOrdered By: Pete Payne on 03-21-2025 Urea nitrogen/Creatinine [Mass ratio] 21.3 mg/mg High 10-20 [facility] Bilirubin, totalOrdered By: Pete Payne on 03-21-2025 Bilirubin [Mass/Vol] 0.59 mg/dL 0.00-1.30 [facility] Carbon dioxide, total [Moles /volume] in Central venous bloodOrdered By: Pete Payne on 03-21-2025 CO2 [Moles/Vol] 24.1 mmol/L 21.0-32.0 [facility] Chloride assayOrdered By: Celeste Payne on 03-21-2025 Chloride [Moles/Vol] 104 mmol/L 98-108 [facility] Glomerular filtration rate ( GFR) estimation/1.73 sq m using serum, plasma, or whole bOrdered By: Pete Payne on 03-21-2025 GFR/1.73 sq M.predicted among non-blacks MDRD (S/P/Bld) [Vol rate/Area] 64 mL/min/{1.73_m2} >60 [facility] Comment on above: mL/min/1.73m2 CKD-EP I Creatinine Equation (2020) Laboratory - Chemistry and C hemistry - challengeOrdered By: Pete Payne on 03-21-2025 AST [Catalytic activity/Vol] 18 U/L <32 [facility] Potassium measurement (mass/ volume)Ordered By: Pete Payne on 03-21-2025 Potassium (Unsp spec) [Mass/Vol] 4.2 mmol/L 3.3-5.1 [facility] Serum creatinine measurement (mass/volume)Ordered By: Pete Payne on 03-21-2025 Creatinine [Mass/Vol] 0.87 mg/dL 0.70-1.20 [facility] Serum globulin measurementOr dered By: Pete Payne on 03-21-2025 Globulin (S) [Mass/Vol] 2.5 g/dL 2.2-4.2 [facility] Serum glucose measurement (m ass/volume)Ordered By: Pete Payne on 03-21-2025 Glucose [Mass/Vol] 138 mg/dL High 70-99 [facility] Serum or plasma alanine castro otransferase (ALT) measurementOrdered By: Pete Payne on 03-21-2025 ALT [Catalytic activity/Vol] 8 U/L <35 [facility] Serum or plasma albumin karri urement (mass/volume)Ordered By: Pete Kentrellriteshyulia on 03-21-2025 Albumin [Mass/Vol] 3.2 g/dL Low 3.4-4.8 [facility] Serum or plasma albumin/glob ulin mass ratioOrdered By: Pete Kentrellriteshyulia on 03-21-2025 Albumin/Globulin [Mass ratio] 1.3 {ratio} 0.9-2.4 [facility] Serum or plasma alkaline corky sphatase measurementOrdered By: Celestealexisanne Kentrellriteshyulia on 03-21-2025 ALP [Catalytic activity/Vol] 54 U/L 35-104 [facility] Serum or plasma calcium karri urement (mass/volume)Ordered By: Pete Kentrellriteshyulia on 03-21-2025 Calcium [Mass/Vol] 8.9 mg/dL 7.6-11.0 [facility] Serum or plasma urea nitroge n measurement (mass/volume)Ordered By: Saturninokeishasudarshan Pfeifferriteshyulia on 03-21-2025 Urea nitrogen [Mass/Vol] 19 mg/dL 4-19 [facility] Sodium levelOrdered By: Saturnino rodríguez Kentrellriteshyulia on 03-21-2025 Sodium [Moles/Vol] 139 mmol/L 133-145 [facility] TSH DL <= 0.005 mIU/L QnOrde red By: Pete Kentrellsarthak on 03-21-2025 TSH Qn 3.520 uIU/mL 0.300-4.200 [facility] Total proteinOrdered By: Ramsey felix Kentrellriteshyulia on 03-21-2025 Protein [Mass/Vol] 5.8 g/dL Low 5.9-8.4 [facility] Absolute lymphocyte countOrd ered By: Celestealexisanne Kentrellriteshyulia on 03-15-2025 Lymphocytes Auto (Unsp spec) [#/Vol] 2.86 10*3/uL 0.83-4.51 [facility] Absolute neutrophil countOrd ered By: Celestealexisanne Kentrellriteshyulia on 03-15-2025 Neutrophils (Bld) [#/Vol] 6.0 10*3/uL 2.0-7.7 [facility] Automated lymphocyte count a s percentage of total leukocytesOrdered By: Celestegeena Payne on 03-15-2025 Lymphocytes/100 WBC Auto (Unsp spec) 28.8 % 19-41 [facility] Basophil percentageOrdered B y: Nithinsudarshan Devinyulia on 03-15-2025 Basophils/100 WBC (Bld) 0.7 % 0-1 [facility] Eosinophil percentageOrdered By: [facility] Pfeifferriteshyulia on 03-15-2025 Eosinophils/100 WBC (Bld) 2.9 % 0-5 [facility] Erythrocyte distribution wid th ratioOrdered By: [facility] Kentrellyulia on 03-15-2025 Erythrocyte distribution width (RBC) [Ratio] 13.5 % 11.6-14.6 [facility] Erythrocyte distribution wid th standard deviationOrdered By: [facility] Pfeifferyulia on 03-15-2025 Erythrocyte distribution width (RBC) [Ratio] 45.3 fl High 35.1-43.9 [facility] Hematocrit Auto (Bld) [Volum e fraction]Ordered By: alexispeterboroughsudarshan Payne on 03-15-2025 Hematocrit (Bld) [Volume fraction] 35.1 % Low 37-47 [facility] Hemoglobin measurementOrdere d By: alexispeterboroughsudarshan Payne on 03-15-2025 Hemoglobin (Bld) [Mass/Vol] 11.5 g/dL Low 12.0-15.0 [facility] Immature granulocytes/100 WB C Auto (Bld)Ordered By: [facility] Pfeifferyulia on 03-15-2025 Immature granulocytes/100 WBC (Bld) 0.300 % 0.0-0.9 [facility] Comment on above: IG% - Immature Granu locytes (promyelocytes, myelocytes and metamyelocytes) > 1% indicates that a LEFT SHIFT is Present. MCV (mean corpuscular volume ) determinationOrdered By: Saturninopeterboroughsudarshan Payne on 03-15-2025 MCV (RBC) [Entitic vol] 92.1 fL 81-99 [facility] Mean corpuscular hemoglobin (MCH) determinationOrdered By: [facility] Kentrellyulia 03-15-2025 MCH (RBC) [Entitic mass] 30.2 pg 27.0-32.0 [facility] Mean corpuscular hemoglobin concentration (MCHC) determinationOrdered By: Pete Payne on 03-15-2025 MCHC (RBC) [Mass/Vol] 32.8 g/dL 32-36 [facility] Mean platelet volume determi nationOrdered By: Pete Payne on 03-15-2025 Platelet mean volume (Bld) [Entitic vol] 10.0 fL 6.2-12.0 [facility] Monocyte percentageOrdered B y: Pete Payne on 03-15-2025 Monocytes/100 WBC (Bld) 7.4 % 0-10 [facility] Neutrophil percentageOrdered By: Pete Payne on 03-15-2025 Neutrophils/100 WBC (Bld) 59.9 % 47-70 [facility] Nucleated red blood cell per centageOrdered By: Ptee Payne on 03-15-2025 Nucleated RBC/100 WBC (Bld) [Ratio] 0 % 0-5 [facility] Platelet countOrdered By: Celeste Payne on 03-15-2025 Platelets (Bld) [#/Vol] 334 10*3/uL 150-450 [facility] RBC Auto (Bld) [#/Vol]Ordere d By: Pete Payne on 03-15-2025 RBC (Bld) [#/Vol] 3.81 10*6/uL Low 4.2-5.4 [facility] White blood cell (WBC) count Ordered By: Pete Payne on 03-15-2025 WBC (Bld) [#/Vol] 9.9 10*3/uL 4.4-11.0 [facility] Calculated very low density lipoprotein (VLDL) cholesterol measurementOrdered By: Pete Payne on 02-21-2025 Calculated very low density lipoprotein (VLDL) cholesterol measurement 49 mg/dL High 5-40 [facility] Hemoglobin A1c percentageOrd ered By: Pete Payne on 02-21-2025 HbA1c (Bld) [Mass fraction] 7.2 % High <5.7 [facility] Comment on above: Normal < 5.7 % Predi abetic 5.7 - 6.4 % Diabetic >or= 6.5 % Please note range changes. LDL calc ser/plasOrdered By: Pete Payne on 02-21-2025 Cholesterol in LDL [Mass/Vol] 36 mg/dL [facility] Comment on above: Ftccqzioms=623-189 m g/dL & Higher Lyij=222 mg/dL or greaterFriedwald Equation for LDL-C Screening total cholesterol/ high density lipoprotein (HDL) cholesterol ratioOrdered By: Pete Payne on 02-21-2025 Cholesterol.total/Choles terol in HDL [Mass ratio] 3.46 {ratio} [facility] Serum or plasma cholesterol in HDL measurement (mass/volume)Ordered By: Pete Payne on 02-21-2025 Cholesterol in HDL [Mass/Vol] 35 mg/dL Low >40 [facility] Comment on above: National Cholesterol Education Program (NCEP) guidelines:<40 mg/dL: Low HDL-cholesterol (major risk factor for CHD)>= 60 mg/dL: High HDL-cholesterol (negative risk factor for CHD)HDL-cholesterol is affected by a number of factors, e.g. smoking, exercise, hormones, sex and age. Serum or plasma cholesterol measurement (mass/volume)Ordered By: Pete Payne on 02-21-2025 Cholesterol [Mass/Vol] 120 mg/dL <201 [facility] Comment on above: Cholesterol level, D esirable <200 mg/dLBorderline high cholesterol 200-239 mg/dLHigh cholesterol >=240 mg/dLRecommendations of the NCEP Adult Treatment Panel for the following risk-cutoff thresholds for the [place] population. Triglycerides measurementOrd ered By: Pete Payne on 02-21-2025 Triglyceride [Mass/Vol] 245 mg/dL High <199 [facility] Comment on above: The drugs N-Acetylcy steine and Metamizole may falsely depress this assay. Normal range: <150 mg/dLBorderline High: 150-199 mg/dLHigh: 200-499 mg/dLVery High: >500 mg/dL TSH DL <= 0.005 mIU/L QnOrde red By: Pete Payne on 02-06-2025 TSH Qn 2.850 uIU/mL 0.300-4.200 [facility] Absolute lymphocyte countOrd ered By: Pete Payne on 01-13-2025 Lymphocytes Auto (Unsp spec) [#/Vol] 2.32 10*3/uL 0.83-4.51 [facility] Absolute neutrophil countOrd ered By: Pete Payne on 01-13-2025 Neutrophils (Bld) [#/Vol] 5.2 10*3/uL 2.0-7.7 [facility] Automated lymphocyte count a s percentage of total leukocytesOrdered By: Pete Payne on 01-13-2025 Lymphocytes/100 WBC Auto (Unsp spec) 27.3 % 19-41 [facility] Basophil percentageOrdered B y: Pete Payne on 01-13-2025 Basophils/100 WBC (Bld) 0.9 % 0-1 [facility] Eosinophil percentageOrdered By: Pete Payne on 01-13-2025 Eosinophils/100 WBC (Bld) 3.4 % 0-5 [facility] Erythrocyte distribution wid th ratioOrdered By: alexispeterboroughsudarshan Payne on 01-13-2025 Erythrocyte distribution width (RBC) [Ratio] 13.2 % 11.6-14.6 [facility] Erythrocyte distribution wid th standard deviationOrdered By: alexispeterboroughsudarshan Payne on 01-13-2025 Erythrocyte distribution width (RBC) [Ratio] 45.4 fl High 35.1-43.9 [facility] Hematocrit Auto (Bld) [Volum e fraction]Ordered By: Pete Payne on 01-13-2025 Hematocrit (Bld) [Volume fraction] 36.0 % Low 37-47 [facility] Hemoglobin measurementOrdere d By: Pete Payne on 01-13-2025 Hemoglobin (Bld) [Mass/Vol] 11.4 g/dL Low 12.0-15.0 [facility] Immature granulocytes/100 WB C Auto (Bld)Ordered By: Pete Payne on 01-13-2025 Immature granulocytes/100 WBC (Bld) 0.500 % 0.0-0.9 [facility] Comment on above: IG% - Immature Granu locytes (promyelocytes, myelocytes and metamyelocytes) > 1% indicates that a LEFT SHIFT is Present. MCV (mean corpuscular volume ) determinationOrdered By: Pete Payne on 01-13-2025 MCV (RBC) [Entitic vol] 93.3 fL 81-99 [facility] Mean corpuscular hemoglobin (MCH) determinationOrdered By: Pete Payne on 01-13-2025 MCH (RBC) [Entitic mass] 29.5 pg 27.0-32.0 [facility] Mean corpuscular hemoglobin concentration (MCHC) determinationOrdered By: Pete Payne on 01-13-2025 MCHC (RBC) [Mass/Vol] 31.7 g/dL Low 32-36 [facility] Mean platelet volume determi nationOrdered By: Pete Payne on 01-13-2025 Platelet mean volume (Bld) [Entitic vol] 10.8 fL 6.2-12.0 [facility] Monocyte percentageOrdered B y: Pete Payne on 01-13-2025 Monocytes/100 WBC (Bld) 6.9 % 0-10 [facility] Neutrophil percentageOrdered By: Pete Payne on 01-13-2025 Neutrophils/100 WBC (Bld) 61.0 % 47-70 [facility] Nucleated red blood cell per centageOrdered By: Pete Payne on 01-13-2025 Nucleated RBC/100 WBC (Bld) [Ratio] 0 % 0-5 [facility] Platelet countOrdered By: Celeste alexisanne Payne on 01-13-2025 Platelets (Bld) [#/Vol] 316 10*3/uL 150-450 [facility] RBC Auto (Bld) [#/Vol]Ordere d By: Pete Payne on 01-13-2025 RBC (Bld) [#/Vol] 3.86 10*6/uL Low 4.2-5.4 [facility] White blood cell (WBC) count Ordered By: Pete Payne on 01-13-2025 WBC (Bld) [#/Vol] 8.5 10*3/uL 4.4-11.0 [facility] TSH DL <= 0.005 mIU/L QnOrde red By: Pete Payne on 12-26-2024 TSH Qn 4.080 uIU/mL 0.300-4.200 [facility] Absolute lymphocyte countOrd ered By: Pete Payne on 12-13-2024 Lymphocytes Auto (Unsp spec) [#/Vol] 2.57 10*3/uL 0.83-4.51 [facility] Absolute neutrophil countOrd ered By: Pete Payne on 12-13-2024 Neutrophils (Bld) [#/Vol] 5.1 10*3/uL 2.0-7.7 [facility] Automated lymphocyte count a s percentage of total leukocytesOrdered By: Pete Payne on 12-13-2024 Lymphocytes/100 WBC Auto (Unsp spec) 29.2 % 19-41 [facility] Basophil percentageOrdered B y: Pete Payne on 12-13-2024 Basophils/100 WBC (Bld) 0.8 % 0-1 [facility] Eosinophil percentageOrdered By: geena Payne on 12-13-2024 Eosinophils/100 WBC (Bld) 3.5 % 0-5 [facility] Erythrocyte distribution wid th ratioOrdered By: Pete Payne on 12-13-2024 Erythrocyte distribution width (RBC) [Ratio] 13.4 % 11.6-14.6 [facility] Erythrocyte distribution wid th standard deviationOrdered By: Pete Payne on 12-13-2024 Erythrocyte distribution width (RBC) [Ratio] 46.0 fl High 35.1-43.9 [facility] Hematocrit Auto (Bld) [Volum e fraction]Ordered By: Pete Payne on 12-13-2024 Hematocrit (Bld) [Volume fraction] 33.0 % Low 37-47 [facility] Hemoglobin measurementOrdere d By: Pete Payne on 12-13-2024 Hemoglobin (Bld) [Mass/Vol] 10.6 g/dL Low 12.0-15.0 [facility] Immature granulocytes/100 WB C Auto (Bld)Ordered By: Pete Payne on 12-13-2024 Immature granulocytes/100 WBC (Bld) 0.300 % 0.0-0.9 [facility] Comment on above: IG% - Immature Granu locytes (promyelocytes, myelocytes and metamyelocytes) > 1% indicates that a LEFT SHIFT is Present. MCV (mean corpuscular volume ) determinationOrdered By: Pete Payne on 12-13-2024 MCV (RBC) [Entitic vol] 94.0 fL 81-99 [facility] Mean corpuscular hemoglobin (MCH) determinationOrdered By: Pete Payne on 12-13-2024 MCH (RBC) [Entitic mass] 30.2 pg 27.0-32.0 [facility] Mean corpuscular hemoglobin concentration (MCHC) determinationOrdered By: Pete Payne on 12-13-2024 MCHC (RBC) [Mass/Vol] 32.1 g/dL 32-36 [facility] Mean platelet volume determi nationOrdered By: Pete Payne on 12-13-2024 Platelet mean volume (Bld) [Entitic vol] 9.9 fL 6.2-12.0 [facility] Monocyte percentageOrdered B y: Pete Payne on 12-13-2024 Monocytes/100 WBC (Bld) 8.1 % 0-10 [facility] Neutrophil percentageOrdered By: Pete Payne on 12-13-2024 Neutrophils/100 WBC (Bld) 58.1 % 47-70 [facility] Nucleated red blood cell per centageOrdered By: Pete Payne on 12-13-2024 Nucleated RBC/100 WBC (Bld) [Ratio] 0 % 0-5 [facility] Platelet countOrdered By: Celeste Payne on 12-13-2024 Platelets (Bld) [#/Vol] 309 10*3/uL 150-450 [facility] RBC Auto (Bld) [#/Vol]Ordere d By: Pete Payne on 12-13-2024 RBC (Bld) [#/Vol] 3.51 10*6/uL Low 4.2-5.4 [facility] White blood cell (WBC) count Ordered By: Pete Elmer on 12-13-2024 WBC (Bld) [#/Vol] 8.8 10*3/uL 4.4-11.0 [facility] Hemoglobin A1c percentageOrd ered By: Pete Payne on 11-22-2024 HbA1c (Bld) [Mass fraction] 7.0 % High <5.7 [facility] Comment on above: Normal < 5.7 % Predi abetic 5.7 - 6.4 % Diabetic >or= 6.5 % Please note range changes. TSH DL <= 0.005 mIU/L QnOrde red By: Pete Payne on 11-14-2024 TSH Qn 3.270 uIU/mL 0.300-4.200 [facility] Brain/Head without Contrasto n 11-03-2024 Brain/Head without Contrast [facility] Services [address] [place] [address] Brain/Head without Contrast MR#: [id number] Acct: [id number] Name: MAXIME AMARAL Rep #: [id number] : [id number] F [id number] From: Davin Sotelo DO PCP: Dr. Pete Payne MD Status: [facility] ER Study: Brain/Head without Contrast Date of Exam: 10/18 02/10 Exam# [id number] Ordering Dr: Alirio Edward DO PROCEDURE: BRAIN/HEAD [...] CHRONIC CHANGES. NO ACUTE FINDINGS. [facility] CC: Dr. Pete Payne MD; Dr. Alirio Edward DO Dramatic Agent: Signed Normal [facility] Emergency Department Summary on 11-03-2024 Emergency Department Summary [facility] Medical Records Department [address] [place] [address] Emergency Department Summary 11/03/24 MR#: [id number] Acct: [id number] Name: MAXIME AMARAL Rep #: [id number] : 1935 89 From: Alirio Patel PCP: Dr. Pete Payne MD Status:REG ER Location: ED HPI HPI - Fall History of Present Illness Chief Complaint: Fall Informant: patient and family Narrative Narrative: Patient brought in by EMS from [facility] witnessed fall head injury. Patient [...] from paperwork. She has baseline per son. [facility] Medical History Dry eye syndrome of bilateral [...] for te (more content not included)... Normal [facility] Shoulder min 2 Viewson 11-03 Shoulder min 2 Views [facility] Imaging Services [address] [place] [address] Shoulder min 2 Views MR#: [id number] Acct: [id number] Name: MAXIME AMARAL Rep #: [id number] : 1935 F 89 From: Davin Sotelo DO PCP: Dr. Pete Payne MD Status: REG ER Study: Shoulder min 2 Views Date of Exam: 11/03/24 Exam# [id number] Ordering Dr: Alirio Edward DO PROCEDURE: SHOULDER MIN 2 VIEWS 11/03/2024 REASON FOR EXAM: INJURY TECHNIQUE: 3 view(s) of the right shoulder COMPARISON: None FINDINGS: Bones: No acute fracture. Joints: Normal alignment of the acromioclavicular and glenohumeral joints. Soft tissues: Soft tissues are unremarkable. Other: RAD/Shoulder min 2 Views IMPRESSION: NO ACUTE FRACTURE OR DISLOCATION. Reading Location: [facility] CC: Dr. Pete Payne MD; Dr. Alirio Edward DO Dramatic Agent: Signed Normal [facility] Sinus/Facial Boneon 11-04-19 Sinus/Facial Bone [facility] Imaging Services [address] [place] [address] Sinus/Facial Bone MR#: [id number] Acct: [id number] Name: MAXIME AMARAL Rep #: [id number] : 1935 F 89 From: Davin Sotelo DO PCP: Dr. Pete Payne MD Status: REG ER Study: Sinus/Facial Bone Date of Exam: 11/03/24 Exam# [id number] Ordering Dr: Alirio Edward DO PROCEDURE: SINUS/FACIAL [...] supraorbital region. No acute fracture. Reading Location: [facility] CC: Dr. Pete Payne MD; Dr. Alirio Edward DO Dramatic Agent: Signed Normal [facility] Spine Cervical without Contr ason 11-03-2024 Spine Cervical without Contras [facility] Imaging Services [address] [place] [address] Spine Cervical without Contras MR#: [id number] Acct: [id number] Name: MAXIME AMARAL Rep #: [id number] : 1935 F 89 From: Davin Sotelo DO PCP: Dr. Pete Payne MD Status: REG ER Study: Spine Cervical without Contras Date of Exam: 0 11/03/24 Exam# [id number] Ordering Dr: Alirio Edward DO PROCEDURE: SPINE [...] No acute fracture or subluxation. [facility] CC: Dr. Pete Payne MD; Dr. Alirio Edward DO Dramatic Agent: Signed Normal [facility] Absolute lymphocyte countOrd ered By: Pete Payne on 10-17-2024 Lymphocytes Auto (Unsp spec) [#/Vol] 3.03 10*3/uL 0.83-4.51 [facility] Absolute neutrophil countOrd ered By: Pete Payne on 10-17-2024 Neutrophils (Bld) [#/Vol] 5.3 10*3/uL 2.0-7.7 [facility] Automated lymphocyte count a s percentage of total leukocytesOrdered By: Pete Payne on 10-17-2024 Lymphocytes/100 WBC Auto (Unsp spec) 31.8 % 19-41 [facility] Basophil percentageOrdered B y: Pete Payne on 10-17-2024 Basophils/100 WBC (Bld) 0.8 % 0-1 [facility] Eosinophil percentageOrdered By: Pete Payne on 10-17-2024 Eosinophils/100 WBC (Bld) 3.6 % 0-5 [facility] Erythrocyte distribution wid th (RBC) [Ratio]Ordered By: [facility] Pfeifferriteshyulia on 10-17-2024 Erythrocyte distribution width (RBC) [Entitic vol] 45.9 fL High 35.1-43.9 [facility] Erythrocyte distribution wid th ratioOrdered By: [facility] Kentrellyulia on 10-17-2024 Erythrocyte distribution width (RBC) [Ratio] 13.4 % 11.6-14.6 [facility] Erythrocyte distribution wid th standard deviationOrdered By: [facility] Beltranyulia on 10-17-2024 Erythrocyte distribution width (RBC) [Ratio] 45.9 fl High 35.1-43.9 [facility] Hematocrit Auto (Bld) [Volum e fraction]Ordered By: [facility] Pfeifferyulia on 10-17-2024 Hematocrit (Bld) [Volume fraction] 34.1 % Low 37-47 [facility] Hemoglobin measurementOrdere d By: [facility] Kentrellyulia on 10-17-2024 Hemoglobin (Bld) [Mass/Vol] 11.1 g/dL Low 12.0-15.0 [facility] Immature granulocytes/100 WB C Auto (Bld)Ordered By: [facility] Kentrellyulia on 10-17-2024 Immature granulocytes/100 WBC (Bld) 0.400 % 0.0-0.9 [facility] Comment on above: IG% - Immature Granu locytes (promyelocytes, myelocytes and metamyelocytes) > 1% indicates that a LEFT SHIFT is Present. Lymphocytes Auto (Unsp spec) [#/Vol]Ordered By: alexispeterboroughsudarshan Pfeifferyulia on 10-17-2024 Lymphocytes (Bld) [#/Vol] 3.03 10*3/uL 0.83-4.51 [facility] Lymphocytes/100 WBC Auto (Un sp spec)Ordered By: [facility] Pfeifferyulia on 10-17-2024 Lymphocytes/100 WBC (Bld) 31.8 % 19-41 [facility] MCV (mean corpuscular volume ) determinationOrdered By: alexispeterboroughsudarshan Pfeifferyulia on 10-17-2024 MCV (RBC) [Entitic vol] 92.4 fL 81-99 [facility] Mean corpuscular hemoglobin (MCH) determinationOrdered By: Pete Payne on 10-17-2024 MCH (RBC) [Entitic mass] 30.1 pg 27.0-32.0 [facility] Mean corpuscular hemoglobin concentration (MCHC) determinationOrdered By: Pete Payne on 10-17-2024 MCHC (RBC) [Mass/Vol] 32.6 g/dL 32-36 [facility] Mean platelet volume determi nationOrdered By: Pete Payne on 10-17-2024 Platelet mean volume (Bld) [Entitic vol] 10.0 fL 6.2-12.0 [facility] Monocyte percentageOrdered B y: Pete Payne on 10-17-2024 Monocytes/100 WBC (Bld) 7.4 % 0-10 [facility] Neutrophil percentageOrdered By: Saturninopeterboroughsudarshan Payne on 10-17-2024 Neutrophils/100 WBC (Bld) 56.0 % 47-70 [facility] Nucleated red blood cell per centageOrdered By: Pete Payne on 10-17-2024 Nucleated RBC/100 WBC (Bld) [Ratio] 0 % 0-5 [facility] Platelet countOrdered By: Celeste alexisanne Payne on 10-17-2024 Platelets (Bld) [#/Vol] 346 10*3/uL 150-450 [facility] RBC Auto (Bld) [#/Vol]Ordere d By: Pete Payne on 10-17-2024 RBC (Bld) [#/Vol] 3.69 10*6/uL Low 4.2-5.4 [facility] White blood cell (WBC) count Ordered By: Pete Payne on 10-17-2024 WBC (Bld) [#/Vol] 9.5 10*3/uL 4.4-11.0 [facility] Absolute lymphocyte countOrd ered By: Pete Payne on 10-10-2024 Lymphocytes Auto (Unsp spec) [#/Vol] 2.36 10*3/uL 0.83-4.51 [facility] Absolute neutrophil countOrd ered By: Pete Payne on 10-10-2024 Neutrophils (Bld) [#/Vol] 5.5 10*3/uL 2.0-7.7 [facility] Automated lymphocyte count a s percentage of total leukocytesOrdered By: Pete Payne on 10-10-2024 Lymphocytes/100 WBC Auto (Unsp spec) 26.6 % 19-41 [facility] Basophil percentageOrdered B y: Pete Payne on 10-10-2024 Basophils/100 WBC (Bld) 0.9 % 0-1 [facility] Eosinophil percentageOrdered By: [facility] Elmer on 10-10-2024 Eosinophils/100 WBC (Bld) 2.8 % 0-5 [facility] Erythrocyte distribution wid th (RBC) [Ratio]Ordered By: [facility] Pfeifferyulia on 10-10-2024 Erythrocyte distribution width (RBC) [Entitic vol] 45.0 fL High 35.1-43.9 [facility] Erythrocyte distribution wid th ratioOrdered By: [facility] Payne on 10-10-2024 Erythrocyte distribution width (RBC) [Ratio] 13.2 % 11.6-14.6 [facility] Erythrocyte distribution wid th standard deviationOrdered By: [facility] Kentrellyulia on 10-10-2024 Erythrocyte distribution width (RBC) [Ratio] 45.0 fl High 35.1-43.9 [facility] Hematocrit Auto (Bld) [Volum e fraction]Ordered By: [facility] Pfeifferyulia on 10-10-2024 Hematocrit (Bld) [Volume fraction] 35.0 % Low 37-47 [facility] Hemoglobin measurementOrdere d By: geena Payne on 10-10-2024 Hemoglobin (Bld) [Mass/Vol] 11.3 g/dL Low 12.0-15.0 [facility] Immature granulocytes/100 WB C Auto (Bld)Ordered By: geena Payne on 10-10-2024 Immature granulocytes/100 WBC (Bld) 0.500 % 0.0-0.9 [facility] Comment on above: IG% - Immature Granu locytes (promyelocytes, myelocytes and metamyelocytes) > 1% indicates that a LEFT SHIFT is Present. Lymphocytes Auto (Unsp spec) [#/Vol]Ordered By: Pete Payne on 10-10-2024 Lymphocytes (Bld) [#/Vol] 2.36 10*3/uL 0.83-4.51 [facility] Lymphocytes/100 WBC Auto (Un sp spec)Ordered By: Pete Payne on 10-10-2024 Lymphocytes/100 WBC (Bld) 26.6 % 19-41 [facility] MCV (mean corpuscular volume ) determinationOrdered By: Pete Payne on 10-10-2024 MCV (RBC) [Entitic vol] 92.6 fL 81-99 [facility] Mean corpuscular hemoglobin (MCH) determinationOrdered By: Pete Payne on 10-10-2024 MCH (RBC) [Entitic mass] 29.9 pg 27.0-32.0 [facility] Mean corpuscular hemoglobin concentration (MCHC) determinationOrdered By: Pete Payne on 10-10-2024 MCHC (RBC) [Mass/Vol] 32.3 g/dL 32-36 [facility] Mean platelet volume determi nationOrdered By: Pete Payne on 10-10-2024 Platelet mean volume (Bld) [Entitic vol] 10.1 fL 6.2-12.0 [facility] Monocyte percentageOrdered B y: Pete Payne on 10-10-2024 Monocytes/100 WBC (Bld) 6.7 % 0-10 [facility] Neutrophil percentageOrdered By: Pete Payne on 10-10-2024 Neutrophils/100 WBC (Bld) 62.5 % 47-70 [facility] Nucleated red blood cell per centageOrdered By: Pete Payne on 10-10-2024 Nucleated RBC/100 WBC (Bld) [Ratio] 0 % 0-5 [facility] Platelet countOrdered By: Celeste Payne on 10-10-2024 Platelets (Bld) [#/Vol] 361 10*3/uL 150-450 [facility] RBC Auto (Bld) [#/Vol]Ordere d By: Pete Payne on 10-10-2024 RBC (Bld) [#/Vol] 3.78 10*6/uL Low 4.2-5.4 [facility] White blood cell (WBC) count Ordered By: Pete Beltrane on 10-10-2024 WBC (Bld) [#/Vol] 8.9 10*3/uL 4.4-11.0 [facility] Absolute lymphocyte countOrd ered By: Efgeena Beltrane on 10-06-2024 Lymphocytes Auto (Unsp spec) [#/Vol] 2.51 10*3/uL 0.83-4.51 [facility] Absolute neutrophil countOrd ered By: Efgeena Beltrane on 10-06-2024 Neutrophils (Bld) [#/Vol] 4.8 10*3/uL 2.0-7.7 [facility] Automated lymphocyte count a s percentage of total leukocytesOrdered By: Pete Beltrane on 10-06-2024 Lymphocytes/100 WBC Auto (Unsp spec) 30.2 % 19-41 [facility] Basophil percentageOrdered B y: Pete Beltrane on 10-06-2024 Basophils/100 WBC (Bld) 1.0 % 0-1 [facility] Eosinophil percentageOrdered By: alexisongsudarshan Beltrane on 10-06-2024 Eosinophils/100 WBC (Bld) 3.1 % 0-5 [facility] Erythrocyte distribution wid th (RBC) [Ratio]Ordered By: Pete Beltrane on 10-06-2024 Erythrocyte distribution width (RBC) [Entitic vol] 44.4 fL High 35.1-43.9 [facility] Erythrocyte distribution wid th ratioOrdered By: alexisongsudarshan Beltrane on 10-06-2024 Erythrocyte distribution width (RBC) [Ratio] 13.3 % 11.6-14.6 [facility] Erythrocyte distribution wid th standard deviationOrdered By: Saturninoongsudarshan Beltrane on 10-06-2024 Erythrocyte distribution width (RBC) [Ratio] 44.4 fl High 35.1-43.9 [facility] Hematocrit Auto (Bld) [Volum e fraction]Ordered By: [facility] Elmer on 10-06-2024 Hematocrit (Bld) [Volume fraction] 33.2 % Low 37-47 [facility] Hemoglobin measurementOrdere d By: Pete Payne on 10-06-2024 Hemoglobin (Bld) [Mass/Vol] 11.2 g/dL Low 12.0-15.0 [facility] Immature granulocytes/100 WB C Auto (Bld)Ordered By: Pete Payne on 10-06-2024 Immature granulocytes/100 WBC (Bld) 0.400 % 0.0-0.9 [facility] Comment on above: IG% - Immature Granu locytes (promyelocytes, myelocytes and metamyelocytes) > 1% indicates that a LEFT SHIFT is Present. Lymphocytes Auto (Unsp spec) [#/Vol]Ordered By: Pete Payne on 10-06-2024 Lymphocytes (Bld) [#/Vol] 2.51 10*3/uL 0.83-4.51 [facility] Lymphocytes/100 WBC Auto (Un sp spec)Ordered By: Pete Payne on 10-06-2024 Lymphocytes/100 WBC (Bld) 30.2 % 19-41 [facility] MCV (mean corpuscular volume ) determinationOrdered By: Pete Payne on 10-06-2024 MCV (RBC) [Entitic vol] 91.5 fL 81-99 [facility] Mean corpuscular hemoglobin (MCH) determinationOrdered By: Pete Payne on 10-06-2024 MCH (RBC) [Entitic mass] 30.9 pg 27.0-32.0 [facility] Mean corpuscular hemoglobin concentration (MCHC) determinationOrdered By: Pete Payne on 10-06-2024 MCHC (RBC) [Mass/Vol] 33.7 g/dL 32-36 [facility] Mean platelet volume determi nationOrdered By: Pete Payne on 10-06-2024 Platelet mean volume (Bld) [Entitic vol] 9.8 fL 6.2-12.0 [facility] Monocyte percentageOrdered B y: Pete Payne on 10-06-2024 Monocytes/100 WBC (Bld) 7.9 % 0-10 [facility] Neutrophil percentageOrdered By: Saturninokeishasudarshan Pfeifferriteshyulia on 10-06-2024 Neutrophils/100 WBC (Bld) 57.4 % 47-70 [facility] Nucleated red blood cell per centageOrdered By: Pete Kentrellriteshyulia on 10-06-2024 Nucleated RBC/100 WBC (Bld) [Ratio] 0 % 0-5 [facility] Platelet countOrdered By: Celeste terezasudarshan Pfeifferriteshyulia on 10-06-2024 Platelets (Bld) [#/Vol] 348 10*3/uL 150-450 [facility] RBC Auto (Bld) [#/Vol]Ordere d By: Celestegeena Kentrellriteshyulia on 10-06-2024 RBC (Bld) [#/Vol] 3.63 10*6/uL Low 4.2-5.4 [facility] White blood cell (WBC) count Ordered By: Saturninokeishasudarshan Pfeifferriteshyulia on 10-06-2024 WBC (Bld) [#/Vol] 8.3 10*3/uL 4.4-11.0 [facility] T4 freeOrdered By: Saturninokeishasudarshan Pfeifferriteshyulia on 10-03-2024 Free T4 [Mass/Vol] 1.20 ng/dL 0.76-1.46 [facility] TSH DL <= 0.005 mIU/L QnOrde red By: Saturninokeishasudarshan Pfeifferriteshyulia on 10-03-2024 Thyroid Stimulating Hormone (TSH) 4.480 uIU/mL High 0.300-4.200 [facility] TSH Qn 4.480 uIU/mL High 0.300-4.200 [facility] Absolute lymphocyte countOrd ered By: Celesteterezasudarshan Pfeifferriteshyulia on 08-23-2024 Lymphocytes Auto (Unsp spec) [#/Vol] 2.44 10*3/uL 0.83-4.51 [facility] Absolute neutrophil countOrd ered By: Pete Kentrellriteshyulia on 08-23-2024 Neutrophils (Bld) [#/Vol] 5.4 10*3/uL 2.0-7.7 [facility] Albumin to globulin ratioOrd ered By: Celesteewongsudarshan Payne on 08-23-2024 Albumin/Globulin [Mass ratio] 0.7 {ratio} Low 0.9-2.4 [facility] Automated lymphocyte count a s percentage of total leukocytesOrdered By: Pete Payne on 08-23-2024 Lymphocytes/100 WBC Auto (Unsp spec) 27.5 % 19-41 [facility] Basophil percentageOrdered B y: Pete Payne on 08-23-2024 Basophils/100 WBC (Bld) 0.6 % 0-1 [facility] Bilirubin, totalOrdered By: Pete Payne on 08-23-2024 Bilirubin [Mass/Vol] 0.90 mg/dL 0.20-1.00 [facility] Comment on above: For patients on eltr ombopag therapy, use of Dimension [place] TBIL is not recommended. Blood urea nitrogen (BUN)/cr eatinine ratioOrdered By: Pete Payne on 08-23-2024 Urea nitrogen/Creatinine [Mass ratio] 19.5 mg/mg 10-20 [facility] Carbon dioxide measurementOr dered By: geena Payne on 08-23-2024 CO2 [Moles/Vol] 25.0 mmol/L 21.0-32.0 [facility] Chloride measurementOrdered By: geena Payne on 08-23-2024 Chloride [Moles/Vol] 108 mmol/L High 98-107 [facility] Eosinophil percentageOrdered By: Pete Payne on 08-23-2024 Eosinophils/100 WBC (Bld) 3.4 % 0-5 [facility] Erythrocyte distribution wid th (RBC) [Ratio]Ordered By: alexispeterboroughsudarshan Payne on 08-23-2024 Erythrocyte distribution width (RBC) [Entitic vol] 47.5 fL High 35.1-43.9 [facility] Erythrocyte distribution wid th ratioOrdered By: alexispeterboroughsudarshan Payne on 08-23-2024 Erythrocyte distribution width (RBC) [Ratio] 13.8 % 11.6-14.6 [facility] Erythrocyte distribution wid th standard deviationOrdered By: geena Payne on 08-23-2024 Erythrocyte distribution width (RBC) [Ratio] 47.5 fl High 35.1-43.9 [facility] Estimated glomerular filtrat ion rate (GFR) AmericanOrdered By: ePte Payne on 08-23-2024 Estimated GFR (MDRD) Amer 69 mL/min >60 [facility] Comment on above: GFR Calc Glomerular filtration rate ( GFR) estimationOrdered By: Pete Payne on 08-23-2024 Estimated GFR (MDRD) Non-Af Amer 57 mL/min Low >60 [facility] Comment on above: Non- GFR Calc GFR/1.73 sq M.predicted among non-blacks MDRD (S/P/Bld) [Vol rate/Area] 57 mL/min/{1.73_m2} Low >60 [facility] Comment on above: Non- GFR Calc Glucose measurementOrdered B y: Pete Payne on 08-23-2024 Glucose [Mass/Vol] 122 mg/dL High 74-106 [facility] Comment on above: Fasting Glucose resu lt from 100 to 125 mg/dL suggests IMPAIRED HOMEOSTASIS per A.D.A. criteria. Hematocrit Auto (Bld) [Volum e fraction]Ordered By: Pete Payne on 08-23-2024 Hematocrit (Bld) [Volume fraction] 34.2 % Low 37-47 [facility] Hemoglobin A1c percentageOrd ered By: Pete Payne on 08-23-2024 HbA1c (Bld) [Mass fraction] 6.5 % High 3.8-5.6 [facility] Comment on above: Normal < 5.7 % Predi abetic 5.7 - 6.4 % Diabetic >or= 6.5 % Please note range changes. Hemoglobin measurementOrdere d By: Pete Payne on 08-23-2024 Hemoglobin (Bld) [Mass/Vol] 11.0 g/dL Low 12.0-15.0 [facility] Immature granulocytes/100 WB C Auto (Bld)Ordered By: Pete Payne on 08-23-2024 Immature granulocytes/100 WBC (Bld) 0.600 % 0.0-0.9 [facility] Comment on above: IG% - Immature Granu locytes (promyelocytes, myelocytes and metamyelocytes) > 1% indicates that a LEFT SHIFT is Present. Laboratory - Chemistry and C hemistry - challengeOrdered By: Pete Payne on 08-23-2024 AST [Catalytic activity/Vol] 12 U/L Low 15-37 [facility] Lymphocytes Auto (Unsp spec) [#/Vol]Ordered By: Pete Payne on 08-23-2024 Lymphocytes (Bld) [#/Vol] 2.44 10*3/uL 0.83-4.51 [facility] Lymphocytes/100 WBC Auto (Un sp spec)Ordered By: Pete Payne on 08-23-2024 Lymphocytes/100 WBC (Bld) 27.5 % 19-41 [facility] MCV (mean corpuscular volume ) determinationOrdered By: Pete Payne on 08-23-2024 MCV (RBC) [Entitic vol] 93.4 fL 81-99 [facility] Mean corpuscular hemoglobin (MCH) determinationOrdered By: Pete Payne on 08-23-2024 MCH (RBC) [Entitic mass] 30.1 pg 27.0-32.0 [facility] Mean corpuscular hemoglobin concentration (MCHC) determinationOrdered By: [facility] on 08-23-2024 MCHC (RBC) [Mass/Vol] 32.2 g/dL 32-36 [facility] Mean platelet volume determi nationOrdered By: alexispeterboroughsudarshan Payne on 08-23-2024 Platelet mean volume (Bld) [Entitic vol] 10.2 fL 6.2-12.0 [facility] Monocyte percentageOrdered B y: Pete Payne on 08-23-2024 Monocytes/100 WBC (Bld) 7.2 % 0-10 [facility] Neutrophil percentageOrdered By: alexispeterboroughsudarshan Payne on 08-23-2024 Neutrophils/100 WBC (Bld) 60.7 % 47-70 [facility] Nucleated red blood cell per centageOrdered By: geena Payne on 08-23-2024 Nucleated RBC/100 WBC (Bld) [Ratio] 0 % 0-5 [facility] Platelet countOrdered By: Celeste Payne on 08-23-2024 Platelets (Bld) [#/Vol] 352 10*3/uL 150-450 [facility] Potassium measurementOrdered By: Pete Payne on 08-23-2024 Potassium [Moles/Vol] 4.0 mmol/L 3.5-5.1 [facility] RBC Auto (Bld) [#/Vol]Ordere d By: Pete Payne on 08-23-2024 RBC (Bld) [#/Vol] 3.66 10*6/uL Low 4.2-5.4 [facility] Serum anion gap measurementO rdered By: Pete Payne on 08-23-2024 Anion gap [Moles/Vol] 8 mmol/L 5-15 [facility] Serum globulin measurementOr dered By: Pete Payne on 08-23-2024 Globulin (S) [Mass/Vol] 3.5 g/dL 2.2-4.2 [facility] Serum or plasma alanine castro otransferase (ALT) measurementOrdered By: Pete Payne on 08-23-2024 ALT [Catalytic activity/Vol] 12 U/L Low 13-56 [facility] Serum or plasma albumin karri urement (mass/volume)Ordered By: Pete Payne on 08-23-2024 Albumin [Mass/Vol] 2.6 g/dL Low 3.2-5.0 [facility] Serum or plasma alkaline corky sphatase measurementOrdered By: Pete Payne on 08-23-2024 ALP [Catalytic activity/Vol] 54 U/L 45-117 [facility] Serum or plasma calcium karri urement (mass/volume)Ordered By: Pete Payne on 08-23-2024 Calcium [Mass/Vol] 8.5 mg/dL 8.5-10.1 [facility] Serum or plasma creatinine m easurement (mass/volume)Ordered By: Pete Payne on 08-23-2024 Creatinine [Mass/Vol] 0.98 mg/dL 0.55-1.02 [facility] Comment on above: The validity of the calculated GFR & GFRAA in patients over 70 years has not been determined. Clinical correlation is essential. Serum or plasma thyroid stim ulating hormone (TSH) measurement (units/volume)Ordered By: Pete Beltranyulia on 08-23-2024 TSH Qn 3.840 uIU/mL High 0.358-3.740 [facility] Serum or plasma urea nitroge n measurement (mass/volume)Ordered By: Celestealexiskeishasudarshan Pfeifferriteshyulia on 08-23-2024 Urea nitrogen [Mass/Vol] 19 mg/dL High 7-18 [facility] Sodium levelOrdered By: Saturnino rodríguez Kentrellsarthak on 08-23-2024 Sodium [Moles/Vol] 141 mmol/L 136-145 [facility] TSH QnOrdered By: Pete Payne on 08-23-2024 Thyroid Stimulating Hormone (TSH) 3.840 uIU/mL High 0.358-3.740 [facility] Total proteinOrdered By: Ramsey Payne on 08-23-2024 Protein [Mass/Vol] 6.1 g/dL Low 6.4-8.2 [facility] White blood cell (WBC) count Ordered By: Pete Kentrellsarthak on 08-23-2024 WBC (Bld) [#/Vol] 8.9 10*3/uL 4.4-11.0 [facility] TSH QnOrdered By: Pete Kentrellsarthak on 07-11-2024 Thyroid Stimulating Hormone (TSH) 3.030 uIU/mL 0.358-3.740 [facility] Absolute lymphocyte countOrd ered By: Pete Kentrellriteshyulia on 08-25-2023 Lymphocytes Auto (Unsp spec) [#/Vol] 2.56 10*3/uL 0.83-4.51 [facility] Automated lymphocyte count a s percentage of total leukocytesOrdered By: Pete Kentrellriteshyulia on 08-25-2023 Lymphocytes/100 WBC Auto (Unsp spec) 28.1 % 19-41 [facility] Basophil percentageOrdered B y: Nithinsudarshan Pfeifferriteshyulia on 08-25-2023 Basophils/100 WBC (Bld) 1.0 % 0-1 [facility] Bilirubin [Mass/Vol] 1.00 mg/dL 0.20-1.00 [facility] Comment on above: For patients on eltr ombopag therapy, use of Dim[place] TBIL is not recommended. Chloride [Moles/Vol] 107 mmol/L 98-107 [facility] Eosinophils/100 WBC (Bld) 3.4 % 0-5 [facility] Glucose [Mass/Vol] 143 mg/dL 74-106 [facility] Comment on above: Fasting Glucose resu lt greater than or equal to 126 mg/dL suggests DIABETES MELLITUS per A.D.A. criteria. Hemoglobin (Bld) [Mass/Vol] 11.1 g/dL 12.0-15.0 [facility] Monocytes/100 WBC (Bld) 6.9 % 0-10 [facility] Neutrophils (Bld) [#/Vol] 5.5 10*3/uL 2.0-7.7 [facility] Neutrophils/100 WBC (Bld) 60.3 % 47-70 [facility] Potassium [Moles/Vol] 4.1 mmol/L 3.5-5.1 [facility] Protein [Mass/Vol] 6.8 g/dL 6.4-8.2 [facility] Sodium [Moles/Vol] 140 mmol/L 136-145 [facility] WBC (Bld) [#/Vol] 9.1 10*3/uL 4.4-11.0 [facility] Determination of erythrocyte mean corpuscular volume (MCV)Ordered By: Pete Payne on 08-25-2023 MCV (RBC) [Entitic vol] 93.5 fL 81-99 [facility] Erythrocyte distribution wid th ratioOrdered By: Pete Payne on 08-25-2023 Erythrocyte distribution width (RBC) [Ratio] 12.9 % 11.6-14.6 [facility] Erythrocyte distribution wid th standard deviationOrdered By: Pete Payne on 08-25-2023 Erythrocyte distribution width (RBC) [Entitic vol] 44.3 fL 35.1-43.9 [facility] Hematocrit Auto (Bld) [Volum e fraction]Ordered By: Pete Payne on 08-25-2023 Hematocrit (Bld) [Volume fraction] 34.5 % 37-47 [facility] Immature granulocytes/100 WB C Auto (Bld)Ordered By: Pete Payne on 08-25-2023 Immature granulocytes/100 WBC (Bld) 0.300 % 0.0-0.9 [facility] Comment on above: IG% - Immature Granu locytes (promyelocytes, myelocytes and metamyelocytes) > 1% indicates that a LEFT SHIFT is Present. Laboratory - Chemistry and C hemistry - challengeOrdered By: Pete Payne on 08-25-2023 Albumin/Globulin [Mass ratio] 0.8 {ratio} 0.9-2.4 [facility] ALP [Catalytic activity/Vol] 62 U/L 45-117 [facility] ALT [Catalytic activity/Vol] 14 U/L 13-56 [facility] CO2 [Moles/Vol] 25.0 mmol/L 21.0-32.0 [facility] Globulin (S) [Mass/Vol] 3.8 g/dL 2.2-4.2 [facility] Urea nitrogen/Creatinine [Mass ratio] 20.9 mg/mg 10-20 [facility] Laboratory - Hematology and Cell countsOrdered By: Pete Payne on 08-25-2023 MCH (RBC) [Entitic mass] 30.1 pg 27.0-32.0 [facility] MCHC (RBC) [Mass/Vol] 32.2 g/dL 32-36 [facility] Nucleated RBC/100 WBC (Bld) [Ratio] 0 % 0-5 [facility] Platelet mean volume (Bld) [Entitic vol] 10.2 fL 6.2-12.0 [facility] Platelets (Bld) [#/Vol] 373 10*3/uL 150-450 [facility] No Panel InformationOrdered By: Pete Payne on 08-25-2023 Estimated GFR (MDRD) Amer 71 mL/min >60 [facility] Comment on above: GFR Calc Estimated GFR (MDRD) Non-Af Amer 59 mL/min >60 [facility] Comment on above: Non- GFR Calc RBC Auto (Bld) [#/Vol]Ordere d By: Pete Payne on 08-25-2023 RBC (Bld) [#/Vol] 3.69 10*6/uL 4.2-5.4 [facility] Serum or plasma calcium karri urement (mass/volume)Ordered By: Pete Payne on 08-25-2023 Calcium [Mass/Vol] 9.4 mg/dL 8.5-10.1 [facility] Serum or plasma creatinine m easurement (mass/volume)Ordered By: Pete Payne on 08-25-2023 Creatinine [Mass/Vol] 0.96 mg/dL 0.55-1.02 [facility] Comment on above: The validity of the calculated GFR & GFRAA in patients over 70 years has not been determined. Clinical correlation is essential. Serum or plasma urea nitroge n measurement (mass/volume)Ordered By: Pete Payne on 08-25-2023 Urea nitrogen [Mass/Vol] 20 mg/dL 7-18 [facility] Thin prep Papanicolaou smear with manual screeningOrdered By: Pete Payne on 08-25-2023 Thin prep Papanicolaou smear with manual screening 3.0 g/dL 3.2-5.0 [facility] Thin prep Papanicolaou smear with manual screening 13 U/L 15-37 [facility] Thin prep Papanicolaou smear with manual screening 8 5-15 [facility] Whole blood hemoglobin A1c/t otal hemoglobin ratio (mass fraction)Ordered By: Pete Payne on 08-25-2023 HbA1c (Bld) [Mass fraction] 6.9 % 3.8-5.6 [facility] Comment on above: Normal < 5.7 % Predi abetic 5.7 - 6.4 % Diabetic >or= 6.5 % Please note range changes. Laboratory - Chemistry and C hemistry - challengeOrdered By: Pete Payne on 03-16-2023 Free T4 [Mass/Vol] 1.07 ng/dL 0.76-1.46 [facility] No Panel InformationOrdered By: Pete Payne on 03-16-2023 Thyroid Stimulating Hormone (TSH) 4.03 uIU/mL 0.358-3.74 [facility] Total Triiodothyronine 1.24 ng/mL 0.6-1.81 [facility] Absolute lymphocyte countOrd ered By: Pete Payne on 03-12-2023 Lymphocytes Auto (Unsp spec) [#/Vol] 2.46 10*3/uL 0.83-4.51 [facility] Basophil percentageOrdered B y: Pete Payne on 03-12-2023 Basophils/100 WBC (Bld) 1.1 % 0-1 [facility] Bilirubin [Mass/Vol] 0.70 mg/dL 0.20-1.00 [facility] Comment on above: For patients on eltr ombopag therapy, use of [place] TBIL is not recommended. Chloride [Moles/Vol] 106 mmol/L 98-107 [facility] Cholesterol [Mass/Vol] 106 mg/dL <200 [facility] Comment on above: <200 mg/dL Desirable 200-240 mg/dL Borderline >240 mg/dL High Risk Eosinophils/100 WBC (Bld) 2.8 % 0-5 [facility] Glucose [Mass/Vol] 151 mg/dL 74-106 [facility] Comment on above: Fasting Glucose resu lt greater than or equal to 126 mg/dL suggests DIABETES MELLITUS per A.D.A. criteria. Neutrophils (Bld) [#/Vol] 4.8 10*3/uL 2.0-7.7 [facility] Neutrophils/100 WBC (Bld) 57.0 % 47-70 [facility] Potassium [Moles/Vol] 4.1 mmol/L 3.5-5.1 [facility] Protein [Mass/Vol] 6.3 g/dL 6.4-8.2 [facility] Sodium [Moles/Vol] 138 mmol/L 136-145 [facility] Triglyceride [Mass/Vol] 135 mg/dL <199 [facility] Comment on above: The drugs N-Acetylcy steine and Metamizole may falsely depress this assay.Serum Triglycerides Reference Interval Normal <150 mg/dL Borderline high 150 - 199 mg/dL High 200 - 499 mg/dL Very High > or = 500 mg/dL WBC (Bld) [#/Vol] 8.3 10*3/uL 4.4-11.0 [facility] Blood erythrocytes count (nu mber/volume)Ordered By: Pete Payne on 03-12-2023 RBC (Bld) [#/Vol] 3.59 10*6/uL 4.2-5.4 [facility] Blood hemoglobin measurement (mass/volume)Ordered By: Pete Payne on 03-12-2023 Hemoglobin (Bld) [Mass/Vol] 11.0 g/dL 12.0-15.0 [facility] Blood lymphocytes/100 leukoc ytesOrdered By: alexispeterboroughsudarshan Payne on 03-12-2023 Lymphocytes/100 WBC (Bld) 29.5 % 19-41 [facility] Blood monocytes/100 leukocyt esOrdered By: [facility]ars[facility] on 03-12-2023 Monocytes/100 WBC (Bld) 9.2 % 0-10 [facility] Blood platelet mean volumeOr dered By: alexispeterboroughsudarshan Payne on 03-12-2023 Platelet mean volume (Bld) [Entitic vol] 9.8 fL 6.2-12.0 [facility] Determination of erythrocyte mean corpuscular volume (MCV)Ordered By: Pete Payne on 03-12-2023 MCV (RBC) [Entitic vol] 93.9 fL 81-99 [facility] Hematocrit Auto (Bld) [Volum e fraction]Ordered By: Pete Payne on 03-12-2023 Hematocrit (Bld) [Volume fraction] 33.7 % 37-47 [facility] Laboratory - Chemistry and C hemistry - challengeOrdered By: alexispeterboroughsudarshan Payne on 03-12-2023 ALP [Catalytic activity/Vol] 57 U/L 45-117 [facility] ALT [Catalytic activity/Vol] 16 U/L 13-56 [facility] CO2 [Moles/Vol] 25.0 mmol/L 21.0-32.0 [facility] Globulin (S) [Mass/Vol] 3.4 g/dL 2.2-4.2 [facility] Urea nitrogen/Creatinine [Mass ratio] 16.0 mg/mg 10-20 [facility] Laboratory - Hematology and Cell countsOrdered By: Pete Payne on 03-12-2023 Erythrocyte distribution width (RBC) [Entitic vol] 42.9 fL 35.1-43.9 [facility] Erythrocyte distribution width (RBC) [Ratio] 12.4 % 11.6-14.6 [facility] Immature granulocytes/100 WBC (Bld) 0.400 % 0.0-0.9 [facility] Comment on above: IG% - Immature Granu locytes (promyelocytes, myelocytes and metamyelocytes) > 1% indicates that a LEFT SHIFT is Present. MCH (RBC) [Entitic mass] 30.6 pg 27.0-32.0 [facility] Nucleated RBC/100 WBC (Bld) [Ratio] 0 % 0-5 [facility] MCHC Auto (RBC) [Mass/Vol]Or dered By: Pete Payne on 03-12-2023 MCHC (RBC) [Mass/Vol] 32.6 g/dL 32-36 [facility] No Panel InformationOrdered By: Pete Payne on 03-12-2023 Estimated GFR (MDRD) Amer 63 mL/min >60 [facility] Comment on above: GFR Calc Estimated GFR (MDRD) Non-Af Amer 52 mL/min >60 [facility] Comment on above: Non- GFR Calc Thyroid Stimulating Hormone (TSH) 4.75 uIU/mL 0.358-3.74 [facility] Vitamin D 25-Hydroxy 107.1 ng/mL [facility] Comment on above: Vitamin D 25(OH) [...] 03-12-2023 Platelets (Bld) [#/Vol] 361 10*3/uL 150-450 [facility] Serum or plasma albumin karri urement (mass/volume)Ordered By: Pete Payne on 03-12-2023 Albumin [Mass/Vol] 2.9 g/dL 3.2-5.0 [facility] Serum or plasma albumin/glob ulin mass ratioOrdered By: Pete Payne on 03-12-2023 Albumin/Globulin [Mass ratio] 0.9 {ratio} 0.9-2.4 [facility] Serum or plasma calcium karri urement (mass/volume)Ordered By: Pete Payne on 03-12-2023 Calcium [Mass/Vol] 9.0 mg/dL 8.5-10.1 [facility] Serum or plasma cholesterol in HDL measurement (mass/volume)Ordered By: ePte Payne on 03-12-2023 Cholesterol in HDL [Mass/Vol] 46 mg/dL >40 [facility] Comment on above: The drugs N-Acetylcy steine and Metamizole may falsely depress this assay. Reference Range HDL <40 mg/dL Low HDL Cholesterol HDL >or= 60 mg/dL High HDL Cholesterol Serum or plasma cholesterol in VLDL measurement (mass/volume)Ordered By: Pete Payne on 03-12-2023 Cholesterol in VLDL [Mass/Vol] 27 mg/dL 5-40 [facility] Serum or plasma creatinine m easurement (mass/volume)Ordered By: Pete Payne on 03-12-2023 Creatinine [Mass/Vol] 1.06 mg/dL 0.55-1.02 [facility] Comment on above: The validity of the calculated GFR & GFRAA in patients over 70 years has not been determined. Clinical correlation is essential. Serum or plasma low density lipoprotein (LDL) cholesterol measurement (mass/volume)Ordered By: Nithinsudarshan Pfeifferriteshyulia on 03-12-2023 Cholesterol in LDL [Mass/Vol] 33 mg/dL 0-130 [facility] Serum or plasma urea nitroge n measurement (mass/volume)Ordered By: Pete Kentrellriteshyulia on 03-12-2023 Urea nitrogen [Mass/Vol] 17 mg/dL 7-18 [facility] Thin prep Papanicolaou smear with manual screeningOrdered By: Pete Kentrellriteshyulia on 03-12-2023 Thin prep Papanicolaou smear with manual screening 13 U/L 15-37 [facility] Thin prep Papanicolaou smear with manual screening 7 5-15 [facility] Whole blood hemoglobin A1c/t otal hemoglobin ratio (mass fraction)Ordered By: Celestealexisekishasudarshan Payne on 03-12-2023 HbA1c (Bld) [Mass fraction] 7.2 % 3.8-5.6 [facility] Comment on above: Normal < 5.7 % Predi abetic 5.7 - 6.4 % Diabetic >or= 6.5 % Please note range changes. Absolute lymphocyte countOrd ered By: Pete Kentrellriteshyulia on 12-01-2022 Lymphocytes Auto (Unsp spec) [#/Vol] 2.66 10*3/uL 0.83-4.51 [facility] Basophil percentageOrdered B y: Pete Payne on 12-01-2022 Basophils/100 WBC (Bld) 1.0 % 0-1 [facility] Bilirubin [Mass/Vol] 1.00 mg/dL 0.20-1.00 [facility] Comment on above: For patients on eltr ombopag therapy, use of [place] TBIL is not recommended. Chloride [Moles/Vol] 100 mmol/L 98-107 [facility] Eosinophils/100 WBC (Bld) 2.3 % 0-5 [facility] Glucose [Mass/Vol] 152 mg/dL 74-106 [facility] Comment on above: Fasting Glucose resu lt greater than or equal to 126 mg/dL suggests DIABETES MELLITUS per A.D.A. criteria. Neutrophils (Bld) [#/Vol] 5.8 10*3/uL 2.0-7.7 [facility] Neutrophils/100 WBC (Bld) 60.2 % 47-70 [facility] Potassium [Moles/Vol] 4.3 mmol/L 3.5-5.1 [facility] Protein [Mass/Vol] 6.1 g/dL 6.4-8.2 [facility] Sodium [Moles/Vol] 138 mmol/L 136-145 [facility] WBC (Bld) [#/Vol] 9.7 10*3/uL 4.4-11.0 [facility] Blood erythrocytes count (nu mber/volume)Ordered By: Pete Payne on 12-01-2022 RBC (Bld) [#/Vol] 3.46 10*6/uL 4.2-5.4 [facility] Blood hemoglobin measurement (mass/volume)Ordered By: Pete Payne on 12-01-2022 Hemoglobin (Bld) [Mass/Vol] 10.8 g/dL 12.0-15.0 [facility] Blood lymphocytes/100 leukoc ytesOrdered By: Pete Payne on 12-01-2022 Lymphocytes/100 WBC (Bld) 27.5 % 19-41 [facility] Blood monocytes/100 leukocyt esOrdered By: Pete Payne on 12-01-2022 Monocytes/100 WBC (Bld) 8.4 % 0-10 [facility] Blood platelet mean volumeOr dered By: Pete Payne on 12-01-2022 Platelet mean volume (Bld) [Entitic vol] 9.9 fL 6.2-12.0 [facility] Determination of erythrocyte mean corpuscular volume (MCV)Ordered By: Pete Payne on 12-01-2022 MCV (RBC) [Entitic vol] 97.1 fL 81-99 [facility] Hematocrit Auto (Bld) [Volum e fraction]Ordered By: Pete Payne on 12-01-2022 Hematocrit (Bld) [Volume fraction] 33.6 % 37-47 [facility] Laboratory - Chemistry and C hemistry - challengeOrdered By: Pete Payne on 12-01-2022 ALP [Catalytic activity/Vol] 60 U/L 45-117 [facility] ALT [Catalytic activity/Vol] 22 U/L 13-56 [facility] CO2 [Moles/Vol] 29.0 mmol/L 21.0-32.0 [facility] Globulin (S) [Mass/Vol] 3.3 g/dL 2.2-4.2 [facility] Urea nitrogen/Creatinine [Mass ratio] 16.1 mg/mg 10-20 [facility] Laboratory - Hematology and Cell countsOrdered By: Pete Payne on 12-01-2022 Erythrocyte distribution width (RBC) [Entitic vol] 44.6 fL 35.1-43.9 [facility] Erythrocyte distribution width (RBC) [Ratio] 12.5 % 11.6-14.6 [facility] Immature granulocytes/100 WBC (Bld) 0.600 % 0.0-0.9 [facility] Comment on above: IG% - Immature Granu locytes (promyelocytes, myelocytes and metamyelocytes) > 1% indicates that a LEFT SHIFT is Present. MCH (RBC) [Entitic mass] 31.2 pg 27.0-32.0 [facility] Nucleated RBC/100 WBC (Bld) [Ratio] 0 % 0-5 [facility] MCHC Auto (RBC) [Mass/Vol]Or dered By: Pete Payne on 12-01-2022 MCHC (RBC) [Mass/Vol] 32.1 g/dL 32-36 [facility] No Panel InformationOrdered By: Pete Payne on 12-01-2022 Estimated GFR (MDRD) Amer 59 mL/min >60 [facility] Comment on above: GFR Calc Estimated GFR (MDRD) Non-Af Amer 49 mL/min >60 [facility] Comment on above: Non- GFR Calc Platelets bldOrdered By: Ramsey Payne on 12-01-2022 Platelets (Bld) [#/Vol] 517 10*3/uL 150-450 [facility] Serum or plasma albumin karri urement (mass/volume)Ordered By: Pete Payne on 12-01-2022 Albumin [Mass/Vol] 2.8 g/dL 3.2-5.0 [facility] Serum or plasma albumin/glob ulin mass ratioOrdered By: Pete Payne on 12-01-2022 Albumin/Globulin [Mass ratio] 0.8 {ratio} 0.9-2.4 [facility] Serum or plasma calcium karri urement (mass/volume)Ordered By: Pete Payne on 12-01-2022 Calcium [Mass/Vol] 9.0 mg/dL 8.5-10.1 [facility] Serum or plasma creatinine m easurement (mass/volume)Ordered By: Pete Payne on 12-01-2022 Creatinine [Mass/Vol] 1.12 mg/dL 0.55-1.02 [facility] Comment on above: The validity of the calculated GFR & GFRAA in patients over 70 years has not been determined. Clinical correlation is essential. Serum or plasma urea nitroge n measurement (mass/volume)Ordered By: Pete Payne on 12-01-2022 Urea nitrogen [Mass/Vol] 18 mg/dL 7-18 [facility] Thin prep Papanicolaou smear with manual screeningOrdered By: geena Payne on 12-01-2022 Thin prep Papanicolaou smear with manual screening 15 U/L 15-37 [facility] Thin prep Papanicolaou smear with manual screening 9 5-15 [facility] Glucose Glucometer (BldC) [M ass/Vol]Ordered By: Dr. Crooks on 11-29-2022 Glucose [Mass/Vol] 95 mg/dL 74-106 [facility] Comment on above: MANAGEMENT OF PATIEN T CARE PER NURSING PROTOCOL Absolute lymphocyte countOrd ered By: Dr. Crooks on 11-28-2022 Lymphocytes Auto (Unsp spec) [#/Vol] 2.74 10*3/uL 0.83-4.51 [facility] Basophil percentageOrdered B y: Dr. Crooks on 11-28-2022 Basophils/100 WBC (Bld) 0.9 % 0-1 [facility] Chloride [Moles/Vol] 104 mmol/L 98-107 [facility] Eosinophils/100 WBC (Bld) 2.2 % 0-5 [facility] Glucose [Mass/Vol] 146 mg/dL 74-106 [facility] Comment on above: Fasting Glucose resu lt greater than or equal to 126 mg/dL suggests DIABETES MELLITUS per A.D.A. criteria. Neutrophils (Bld) [#/Vol] 7.4 10*3/uL 2.0-7.7 [facility] Neutrophils/100 WBC (Bld) 65.0 % 47-70 [facility] Potassium [Moles/Vol] 4.2 mmol/L 3.5-5.1 [facility] Sodium [Moles/Vol] 137 mmol/L 136-145 [facility] WBC (Bld) [#/Vol] 11.4 10*3/uL 4.4-11.0 [facility] Blood erythrocytes count (nu mber/volume)Ordered By: Dr. Crooks on 11-28-2022 RBC (Bld) [#/Vol] 3.62 10*6/uL 4.2-5.4 [facility] Blood hemoglobin measurement (mass/volume)Ordered By: Dr. Crooks on 11-28-2022 Hemoglobin (Bld) [Mass/Vol] 11.2 g/dL 12.0-15.0 [facility] Blood lymphocytes/100 leukoc ytesOrdered By: Dr. Crooks on 11-28-2022 Lymphocytes/100 WBC (Bld) 24.1 % 19-41 [facility] Blood monocytes/100 leukocyt esOrdered By: Dr. Crooks on 11-28-2022 Monocytes/100 WBC (Bld) 7.2 % 0-10 [facility] Blood platelet mean volumeOr dered By: Dr. Crooks on 11-28-2022 Platelet mean volume (Bld) [Entitic vol] 9.3 fL 6.2-12.0 [facility] Determination of erythrocyte mean corpuscular volume (MCV)Ordered By: Dr. Crooks on 11-28-2022 MCV (RBC) [Entitic vol] 96.4 fL 81-99 [facility] Glucose Glucometer (BldC) [M ass/Vol]Ordered By: Dr. Crooks on 11-28-2022 Glucose [Mass/Vol] 146 mg/dL 74-106 [facility] Comment on above: MANAGEMENT OF PATIEN T CARE PER NURSING PROTOCOL Hematocrit Auto (Bld) [Volum e fraction]Ordered By: Dr. Crooks on 11-28-2022 Hematocrit (Bld) [Volume fraction] 34.9 % 37-47 [facility] Laboratory - Chemistry and C hemistry - challengeOrdered By: Dr. Crooks on 11-28-2022 CO2 [Moles/Vol] 28.0 mmol/L 21.0-32.0 [facility] Urea nitrogen/Creatinine [Mass ratio] 18.2 mg/mg 10-20 [facility] Laboratory - Hematology and Cell countsOrdered By: Dr. Crooks on 11-28-2022 Erythrocyte distribution width (RBC) [Entitic vol] 43.3 fL 35.1-43.9 [facility] Erythrocyte distribution width (RBC) [Ratio] 12.4 % 11.6-14.6 [facility] Immature granulocytes/100 WBC (Bld) 0.600 % 0.0-0.9 [facility] Comment on above: IG% - Immature Granu locytes (promyelocytes, myelocytes and metamyelocytes) > 1% indicates that a LEFT SHIFT is Present. MCH (RBC) [Entitic mass] 30.9 pg 27.0-32.0 [facility] Nucleated RBC/100 WBC (Bld) [Ratio] 0 % 0-5 [facility] MCHC Auto (RBC) [Mass/Vol]Or dered By: Dr. Crooks on 11-28-2022 MCHC (RBC) [Mass/Vol] 32.1 g/dL 32-36 [facility] No Panel InformationOrdered By: Dr. Crooks on 11-28-2022 Estimated Creatinine Clearance Calc 37.22 ml/min [facility] Estimated GFR (MDRD) Amer 73 mL/min >60 [facility] Comment on above: GFR Calc Estimated GFR (MDRD) Non-Af Amer 61 mL/min >60 [facility] Comment on above: Non- GFR Calc Platelets bldOrdered By: Dr. Crooks on 11-28-2022 Platelets (Bld) [#/Vol] 445 10*3/uL 150-450 [facility] Serum or plasma calcium karri urement (mass/volume)Ordered By: Dr. Crooks on 11-28-2022 Calcium [Mass/Vol] 8.9 mg/dL 8.5-10.1 [facility] Serum or plasma creatinine m easurement (mass/volume)Ordered By: Dr. Crooks on 11-28-2022 Creatinine [Mass/Vol] 0.93 mg/dL 0.55-1.02 [facility] Comment on above: The validity of the calculated GFR & GFRAA in patients over 70 years has not been determined. Clinical correlation is essential. Serum or plasma urea nitroge n measurement (mass/volume)Ordered By: Dr. Crooks on 11-28-2022 Urea nitrogen [Mass/Vol] 17 mg/dL 7-18 [facility] Thin prep Papanicolaou smear with manual screeningOrdered By: Dr. Crooks on 11-28-2022 Thin prep Papanicolaou smear with manual screening 5 5-15 [facility] COVID-19 virus antigen assay Ordered By: Sylvester Crooks on 11-16-2022 SARS-CoV-2 (COVID-19) Ag IA.rapid Ql (Resp) [facility] COVID-19 virus antigen assay Ordered By: Dr. Crooks on 11-16-2022 SARS-CoV-2 (COVID-19) Ag IA.rapid Ql (Resp) [facility] Culture, urineOrdered By: Dr Néstor Crooks on 11-16-2022 Bacteria identified Cx Nom (U) Escherichia coli [facility] Bacteria identified Cx Nom (U) Klebsiella pneumoniae sp pneum [facility] Basophil percentageOrdered B y: Dr. Crooks on 11-14-2022 Basophil percentage 10-25 SEEN /hpf 0-5 [facility] Bilirubin Test strip Ql (U)O rdered By: Dr. Crooks on 11-14-2022 Bilirubin Ql (U) Negative Negative [facility] Culture, urineOrdered By: Raffi Crooks on 11-14-2022 Bacteria identified Cx Nom (U) Escherichia coli [facility] Bacteria identified Cx Nom (U) Klebsiella pneumoniae sp pneum [facility] Ketones Test strip Ql (U)Ord ered By: Dr. Crooks on 11-14-2022 Ketones Ql (U) Negative Negative [facility] Mucus LM Ql (Urine sed)Order ed By: Dr. Crooks on 11-14-2022 Mucus Ql (Urine sed) 0 SEEN /hpf [facility] Nitrite Test strip Ql (U)Ord ered By: Dr. Crooks on 11-14-2022 Nitrite Ql (U) Negative Negative [facility] No Panel InformationOrdered By: Dr. Crooks on 11-14-2022 Urine Transitional Epithelial Cells 0-5 SEEN /hpf 0-5 [facility] Protein Test strip Ql (U)Ord ered By: Dr. Crooks on 11-14-2022 Protein Ql (U) Negative Negative [facility] Squamous epithelial cells de tection in urine sediment by light microscopyOrdered By: Dr. Crooks on 11-14-2022 Epithelial cells.squamous LM Ql (Urine sed) 0-5 SEEN /hpf 5-10 [facility] Urine blood detectionOrdered By: Dr. Crooks on 11-14-2022 RBC Ql (U) 10 /ul Negative [facility] RBC Ql (U) 0-5 SEEN /hpf 0-5 [facility] Urine clarityOrdered By: Dr. Crooks on 11-14-2022 Clarity (U) Sl. Cloudy Clear [facility] Urine color determinationOrd ered By: Dr. Crooks on 11-14-2022 Color (U) Yellow Yellow [facility] Urine glucose detectionOrder ed By: Dr. Crooks on 11-14-2022 Glucose Ql (U) 100 mg/dl Normal [facility] Urine leukocyte esterase det ection by dipstickOrdered By: Dr. Crooks on 11-14-2022 Leukocyte esterase Test strip Ql (U) 100 /ul Negative [facility] Urine pHOrdered By: Dr. Crooks on 11-14-2022 pH (U) 6.0 [pH] 5.0 - 8.0 [facility] Urine sediment bacteria coun t by microscopy (number/high power field)Ordered By: Dr. Crooks on 11-14-2022 Bacteria LM.HPF (Urine sed) [#/Area] 1 /[HPF] None Seen [facility] Urine specific gravity measu rementOrdered By: Dr. Crooks on 11-14-2022 Specific gravity (U) [Rel density] 1.010 1.002-1.030 [facility] Urobilinogen Auto test strip Ql (U)Ordered By: Dr. Crooks on 11-14-2022 Urobilinogen Ql (U) Normal mg/dl Normal [facility] Absolute lymphocyte countOrd ered By: Dr. Betancur on 11-13-2022 Lymphocytes Auto (Unsp spec) [#/Vol] 3.26 10*3/uL 0.83-4.51 [facility] Basophil percentageOrdered B y: Dr. Betancur on 11-13-2022 Basophils/100 WBC (Bld) 0.7 % 0-1 [facility] Bilirubin [Mass/Vol] 1.00 mg/dL 0.20-1.00 [facility] Comment on above: For patients on eltr ombopag therapy, use of Dimension [place] TBIL is not recommended. Chloride [Moles/Vol] 106 mmol/L 98-107 [facility] Eosinophils/100 WBC (Bld) 1.7 % 0-5 [facility] Glucose [Mass/Vol] 150 mg/dL 74-106 [facility] Comment on above: Fasting Glucose resu lt greater than or equal to 126 mg/dL suggests DIABETES MELLITUS per A.D.A. criteria. Neutrophils (Bld) [#/Vol] 8.7 10*3/uL 2.0-7.7 [facility] Neutrophils/100 WBC (Bld) 66.3 % 47-70 [facility] Potassium [Moles/Vol] 3.9 mmol/L 3.5-5.1 [facility] Protein [Mass/Vol] 5.6 g/dL 6.4-8.2 [facility] Sodium [Moles/Vol] 132 mmol/L 136-145 [facility] WBC (Bld) [#/Vol] 13.2 10*3/uL 4.4-11.0 [facility] Blood erythrocytes count (nu mber/volume)Ordered By: Dr. Betancur on 11-13-2022 RBC (Bld) [#/Vol] 3.32 10*6/uL 4.2-5.4 [facility] Blood hemoglobin measurement (mass/volume)Ordered By: Dr. Betancur on 11-13-2022 Hemoglobin (Bld) [Mass/Vol] 10.5 g/dL 12.0-15.0 [facility] Blood lymphocytes/100 leukoc ytesOrdered By: Dr. Betancur on 11-13-2022 Lymphocytes/100 WBC (Bld) 24.7 % 19-41 [facility] Blood monocytes/100 leukocyt esOrdered By: Dr. Betancur on 11-13-2022 Monocytes/100 WBC (Bld) 6.2 % 0-10 [facility] Blood platelet mean volumeOr dered By: Dr. Betancur on 11-13-2022 Platelet mean volume (Bld) [Entitic vol] 8.6 fL 6.2-12.0 [facility] COVID-19 virus antigen assay Ordered By: Bernice Betancur on 11-13-2022 SARS-CoV-2 (COVID-19) Ag IA.rapid Ql (Resp) [facility] COVID-19 virus antigen assay Ordered By: Dr. Betancur on 11-13-2022 SARS-CoV-2 (COVID-19) Ag IA.rapid Ql (Resp) [facility] Determination of erythrocyte mean corpuscular volume (MCV)Ordered By: Dr. Betancur on 11-13-2022 MCV (RBC) [Entitic vol] 92.5 fL 81-99 [facility] Direct bilirubinOrdered By: Dr. Betancur on 11-13-2022 Bilirubin.direct [Mass/Vol] 0.34 mg/dL 0.00-0.30 [facility] Hematocrit Auto (Bld) [Volum e fraction]Ordered By: Dr. Betancur on 11-13-2022 Hematocrit (Bld) [Volume fraction] 30.7 % 37-47 [facility] Iron measurement (mass/mass) Ordered By: Dr. Betancur on 11-13-2022 Iron (Unsp spec) [Mass/Mass] 48 ug/dL 50-170 [facility] Laboratory - Chemistry and C hemistry - challengeOrdered By: Dr. Betancur on 11-13-2022 ALP [Catalytic activity/Vol] 35 U/L 45-117 [facility] ALT [Catalytic activity/Vol] 19 U/L 13-56 [facility] CO2 [Moles/Vol] 23.0 mmol/L 21.0-32.0 [facility] Cobalamin (Vitamin B12) [Mass/Vol] 583 pg/mL 211-911 [facility] Free T4 [Mass/Vol] 1.48 ng/dL 0.76-1.46 [facility] Globulin (S) [Mass/Vol] 2.8 g/dL 2.2-4.2 [facility] Urea nitrogen/Creatinine [Mass ratio] 17.2 mg/mg 10-20 [facility] Laboratory - Hematology and Cell countsOrdered By: Dr. Betancur on 11-13-2022 Erythrocyte distribution width (RBC) [Entitic vol] 42.5 fL 35.1-43.9 [facility] Erythrocyte distribution width (RBC) [Ratio] 12.7 % 11.6-14.6 [facility] Immature granulocytes/100 WBC (Bld) 0.400 % 0.0-0.9 [facility] Comment on above: IG% - Immature Granu locytes (promyelocytes, myelocytes and metamyelocytes) > 1% indicates that a LEFT SHIFT is Present. MCH (RBC) [Entitic mass] 31.6 pg 27.0-32.0 [facility] Nucleated RBC/100 WBC (Bld) [Ratio] 0 % 0-5 [facility] MCHC Auto (RBC) [Mass/Vol]Or dered By: Dr. Betancur on 11-13-2022 MCHC (RBC) [Mass/Vol] 34.2 g/dL 32-36 [facility] No Panel InformationOrdered By: Dr. Betancur on 11-13-2022 Estimated Creatinine Clearance Calc 35.38 ml/min [facility] Estimated GFR (MDRD) Amer 103 mL/min >60 [facility] Comment on above: GFR Calc Estimated GFR (MDRD) Non-Af Amer 85 mL/min >60 [facility] Comment on above: Non- GFR Calc Thyroid Stimulating Hormone (TSH) 1.14 uIU/mL 0.358-3.74 [facility] Total Iron Binding Capacity 214 ug/dL 250-450 [facility] Platelets bldOrdered By: Dr. Betancur on 11-13-2022 Platelets (Bld) [#/Vol] 370 10*3/uL 150-450 [facility] Serum or plasma albumin karri urement (mass/volume)Ordered By: Dr. Betancur on 11-13-2022 Albumin [Mass/Vol] 2.8 g/dL 3.2-5.0 [facility] Serum or plasma calcium karri urement (mass/volume)Ordered By: Dr. Betancur on 11-13-2022 Calcium [Mass/Vol] 8.3 mg/dL 8.5-10.1 [facility] Serum or plasma creatinine m easurement (mass/volume)Ordered By: Dr. Betancur on 11-13-2022 Creatinine [Mass/Vol] 0.70 mg/dL 0.55-1.02 [facility] Comment on above: The validity of the calculated GFR & GFRAA in patients over 70 years has not been determined. Clinical correlation is essential. Serum or plasma ferritin jolanta surement (mass/volume)Ordered By: Dr. Betancur on 11-13-2022 Ferritin [Mass/Vol] 195 ng/mL 8-252 [facility] Serum or plasma urea nitroge n measurement (mass/volume)Ordered By: Dr. Betancur on 11-13-2022 Urea nitrogen [Mass/Vol] 12 mg/dL 7-18 [facility] Thin prep Papanicolaou smear with manual screeningOrdered By: Dr. Betancur on 11-13-2022 Thin prep Papanicolaou smear with manual screening 16 U/L 15-37 [facility] Thin prep Papanicolaou smear with manual screening 3 5-15 [facility] Glucose Glucometer (BldC) [M ass/Vol]Ordered By: Dr. Brody on 11-12-2022 Glucose [Mass/Vol] 121 mg/dL 74-106 [facility] Comment on above: MANAGEMENT OF PATIEN T CARE PER NURSING PROTOCOL No Panel InformationOrdered By: Dr. Brody on 11-12-2022 Vitamin D 25-Hydroxy 43.8 ng/mL [facility] Comment on above: Vitamin D 25(OH) Sta tus Range Deficiency <20 ng/mL (50nmol/L) Insufficiency 20 - 30 ng/mL (50 - 75 nmol/L) Sufficiency 30 - 100 ng/mL (75 - 250 nmol/L) Toxicity >100 ng/mL (>250 nmol/L) Serum or plasma cortisol jolanta surement (mass/volume)Ordered By: Dr. Brody on 11-12-2022 Cortisol [Mass/Vol] 28.20 ug/dL 3.44-22.45 [facility] Comment on above: Adult (AM) 5.27 - 22 .45 ug/dL Adult (PM) 3.44 - 16.76 ug/dLPlease note revised CORTISOL reference range effective 2019. Whole blood hemoglobin A1c/t otal hemoglobin ratio (mass fraction)Ordered By: Dr. Betancur on 11-12-2022 HbA1c (Bld) [Mass fraction] 7.0 % 3.8-5.6 [facility] Comment on above: Normal < 5.7 % Predi abetic 5.7 - 6.4 % Diabetic >or= 6.5 % Please note range changes. Absolute lymphocyte countOrd ered By: Dr. Ewing on 11-11-2022 Lymphocytes Auto (Unsp spec) [#/Vol] 4.35 10*3/uL 0.83-4.51 [facility] Basophil percentageOrdered B y: Dr. Ewing on 11-11-2022 Basophil percentage 0 SEEN /hpf 0-5 [facility] Ammonia (P) [Moles/Vol] 16.0 umol/L 11-32 [facility] Basophils/100 WBC (Bld) 0.6 % 0-1 [facility] Bilirubin [Mass/Vol] 1.90 mg/dL 0.20-1.00 [facility] Comment on above: For patients on eltr ombopag therapy, use of Dimension [place] TBIL is not recommended. Chloride [Moles/Vol] 91 mmol/L 98-107 [facility] Eosinophils/100 WBC (Bld) 0.9 % 0-5 [facility] Glucose [Mass/Vol] 159 mg/dL 74-106 [facility] Comment on above: Fasting Glucose resu lt greater than or equal to 126 mg/dL suggests DIABETES MELLITUS per A.D.A. criteria. Neutrophils (Bld) [#/Vol] 8.3 10*3/uL 2.0-7.7 [facility] Neutrophils/100 WBC (Bld) 59.4 % 47-70 [facility] Potassium [Moles/Vol] 3.4 mmol/L 3.5-5.1 [facility] Protein [Mass/Vol] 7.4 g/dL 6.4-8.2 [facility] Sodium [Moles/Vol] 127 mmol/L 136-145 [facility] WBC (Bld) [#/Vol] 13.9 10*3/uL 4.4-11.0 [facility] Bilirubin Test strip Ql (U)O rdered By: Dr. Ewing on 11-11-2022 Bilirubin Ql (U) Negative Negative [facility] Blood erythrocytes count (nu mber/volume)Ordered By: Dr. Ewing on 11-11-2022 RBC (Bld) [#/Vol] 4.23 10*6/uL 4.2-5.4 [facility] Blood hemoglobin measurement (mass/volume)Ordered By: Dr. Ewing on 11-11-2022 Hemoglobin (Bld) [Mass/Vol] 13.5 g/dL 12.0-15.0 [facility] Blood lymphocytes/100 leukoc ytesOrdered By: Dr. Ewing on 11-11-2022 Lymphocytes/100 WBC (Bld) 31.3 % 19-41 [facility] Blood monocytes/100 leukocyt esOrdered By: Dr. Ewing on 11-11-2022 Monocytes/100 WBC (Bld) 7.4 % 0-10 [facility] Blood platelet mean volumeOr dered By: Dr. Ewing on 11-11-2022 Platelet mean volume (Bld) [Entitic vol] 8.8 fL 6.2-12.0 [facility] Determination of erythrocyte mean corpuscular volume (MCV)Ordered By: Dr. Ewing on 11-11-2022 MCV (RBC) [Entitic vol] 88.7 fL 81-99 [facility] Direct bilirubinOrdered By: Dr. Ewing on 11-11-2022 Bilirubin.direct [Mass/Vol] 0.47 mg/dL 0.00-0.30 [facility] Hematocrit Auto (Bld) [Volum e fraction]Ordered By: Dr. Ewing on 11-11-2022 Hematocrit (Bld) [Volume fraction] 37.5 % 37-47 [facility] Ketones Test strip Ql (U)Ord ered By: Dr. Ewing on 11-11-2022 Ketones Ql (U) 5 mg/dl Negative [facility] Laboratory - Chemistry and C hemistry - challengeOrdered By: Dr. Brody on 11-11-2022 Sodium (U) [Moles/Vol] 8 mmol/L Not Establ. [facility] Magnesium [Mass/Vol] 1.6 mg/dL 1.6-2.6 [facility] Laboratory - Chemistry and C hemistry - challengeOrdered By: Dr. Ewing on 11-11-2022 ALP [Catalytic activity/Vol] 45 U/L 45-117 [facility] ALT [Catalytic activity/Vol] 30 U/L 13-56 [facility] CO2 [Moles/Vol] 28.0 mmol/L 21.0-32.0 [facility] Globulin (S) [Mass/Vol] 3.5 g/dL 2.2-4.2 [facility] Urea nitrogen/Creatinine [Mass ratio] 16.2 mg/mg 10-20 [facility] Laboratory - Hematology and Cell countsOrdered By: Dr. Ewing on 11-11-2022 Erythrocyte distribution width (RBC) [Entitic vol] 39.2 fL 35.1-43.9 [facility] Erythrocyte distribution width (RBC) [Ratio] 12.0 % 11.6-14.6 [facility] Immature granulocytes/100 WBC (Bld) 0.400 % 0.0-0.9 [facility] Comment on above: IG% - Immature Granu locytes (promyelocytes, myelocytes and metamyelocytes) > 1% indicates that a LEFT SHIFT is Present. MCH (RBC) [Entitic mass] 31.9 pg 27.0-32.0 [facility] Nucleated RBC/100 WBC (Bld) [Ratio] 0 % 0-5 [facility] MCHC Auto (RBC) [Mass/Vol]Or dered By: Dr. Ewing on 11-11-2022 MCHC (RBC) [Mass/Vol] 36.0 g/dL 32-36 [facility] Mucus LM Ql (Urine sed)Order ed By: Dr. Ewing on 11-11-2022 Mucus Ql (Urine sed) 0 SEEN /hpf [facility] Nitrite Test strip Ql (U)Ord ered By: Dr. Ewing on 11-11-2022 Nitrite Ql (U) Negative Negative [facility] No Panel InformationOrdered By: Dr. Ewing on 11-11-2022 Estimated Creatinine Clearance Calc 27.90 ml/min [facility] Estimated GFR (MDRD) Amer 50 mL/min >60 [facility] Comment on above: GFR Calc Estimated GFR (MDRD) Non-Af Amer 41 mL/min >60 [facility] Comment on above: Non- GFR Calc Troponin I High Sensitivity 13 pg/mL 3.0-54.0 [facility] Comment on above: Please Note: New Denia t Units and Gender Specific Reference Ranges. For more information see Policy Stat Procedure [place] High Sensitivity Troponin (TNIH) and attachments. Platelets bldOrdered By: Dr. Ewing on 11-11-2022 Platelets (Bld) [#/Vol] 506 10*3/uL 150-450 [facility] Protein Test strip Ql (U)Ord ered By: Dr. Ewing on 11-11-2022 Protein Ql (U) Negative Negative [facility] Serum or plasma albumin karri urement (mass/volume)Ordered By: Dr. Ewing on 11-11-2022 Albumin [Mass/Vol] 3.9 g/dL 3.2-5.0 [facility] Serum or plasma calcium karri urement (mass/volume)Ordered By: Dr. Ewing on 11-11-2022 Calcium [Mass/Vol] 9.9 mg/dL 8.5-10.1 [facility] Serum or plasma creatinine m easurement (mass/volume)Ordered By: Dr. Ewing on 11-11-2022 Creatinine [Mass/Vol] 1.30 mg/dL 0.55-1.02 [facility] Comment on above: The validity of the calculated GFR & GFRAA in patients over 70 years has not been determined. Clinical correlation is essential. Serum or plasma urea nitroge n measurement (mass/volume)Ordered By: Dr. wEing on 11-11-2022 Urea nitrogen [Mass/Vol] 21 mg/dL 7-18 [facility] Serum or plasma uric acid me asurement (mass/volume)Ordered By: Dr. Brody on 11-11-2022 Urate [Mass/Vol] 4.3 mg/dL 2.6-6.0 [facility] Comment on above: The drugs N-Acetylcy steine and Metamizole may falsely depress this assay. Squamous epithelial cells de tection in urine sediment by light microscopyOrdered By: Dr. Ewing on 11-11-2022 Epithelial cells.squamous LM Ql (Urine sed) 0 SEEN /hpf 5-10 [facility] Thin prep Papanicolaou smear with manual screeningOrdered By: Dr. Brody on 11-11-2022 Thin prep Papanicolaou smear with manual screening 277 mOsm/KG 280-301 [facility] Thin prep Papanicolaou smear with manual screeningOrdered By: Dr. Ewing on 11-11-2022 Thin prep Papanicolaou smear with manual screening 25 U/L 15-37 [facility] Thin prep Papanicolaou smear with manual screening 8 5-15 [facility] Urine blood detectionOrdered By: Dr. Ewing on 11-11-2022 RBC Ql (U) Negative Negative [facility] RBC Ql (U) 0 SEEN /hpf 0-5 [facility] Urine clarityOrdered By: Dr. Ewing on 11-11-2022 Clarity (U) Clear Clear [facility] Urine color determinationOrd ered By: Dr. Ewing on 11-11-2022 Color (U) Yellow Yellow [facility] Urine glucose detectionOrder ed By: Dr. Ewing on 11-11-2022 Glucose Ql (U) Normal mg/dl Normal [facility] Urine leukocyte esterase det ection by dipstickOrdered By: Dr. Ewing on 11-11-2022 Leukocyte esterase Test strip Ql (U) Negative Negative [facility] Urine osmolality measurement Ordered By: Dr. Brody on 11-11-2022 Osmolality (U) [Osmolality] 227 mOsm/KG >50 [facility] Comment on above: Normal Urine Referen ce Ranges Random: 50 - 1200 mOsm/kg H20 depending on fluid intake Random: >850 mOsm/kg after 12 hour fluid restriction 24 hour: ~300 - 900 mOsm/kg H2O Urine pHOrdered By: Dr. Atiya bender on 11-11-2022 pH (U) 6.0 [pH] 5.0 - 8.0 [facility] Urine sediment bacteria coun t by microscopy (number/high power field)Ordered By: Dr. Ewing on 11-11-2022 Bacteria LM.HPF (Urine sed) [#/Area] 0 /[HPF] None Seen [facility] Urine specific gravity measu rementOrdered By: Dr. Ewing on 11-11-2022 Specific gravity (U) [Rel density] 1.010 1.002-1.030 [facility] Urobilinogen Auto test strip Ql (U)Ordered By: Dr. Ewing on 11-11-2022 Urobilinogen Ql (U) Normal mg/dl Normal [facility] Vital Signs Date Time Vital Sign Value Performing Clinician Faci lity 05-05-2025 10:47-0400 Body height 147.[address] Pete Payne MD Work Phone: [facility] 11-04-2024 03:00-0400 Respiratory rate 16 /min Dr. Pete Payne MD Work Phone: [facility] 11-04-2024 00:21-0400 Body temperature 98.2 [degF] Dr. Pete Pyane MD Work Phone: [facility] 11-04-2024 00:21-0400 Diastolic blood pressure 60 mm[Hg] Dr. Pete Payne MD Work Phone: [facility] 11-04-2024 00:21-0400 Heart rate 84 /min Dr. Pete Payne MD Work Phone: [facility] 11-04-2024 00:21-0400 SaO2% (BldA) [Mass fraction] 97 % Dr. Pete Payne MD Work Phone: [facility] 11-04-2024 00:21-0400 Systolic blood pressure 143 mm[Hg] Dr. Pete Payne MD Work Phone: [facility] 11-03-2024 21:08-0400 Body height 147.[address] Pete Payne MD Work Phone: [facility] 11-03-2024 21:08-0400 Body mass index (BMI) [Ratio] 29.4 kg/m2 Dr. Pete Payne MD Work Phone: [facility] 11-03-2024 21:08-0400 Body weight 63.[address] Pete Payne MD Work Phone: [facility] 07-25-2023 13:00-0500 Body temperature 97.7 [degF] Dr. Pete Payne Work Phone: [facility] 07-25-2023 13:00-0500 Diastolic blood pressure 74 mm[Hg] Dr. Pete Payne Work Phone: [facility] 07-25-2023 13:00-0500 Heart rate 86 /min Dr. Pete Payne Work Phone: [facility] 07-25-2023 13:00-0500 Respiratory rate 16 /min Dr. Pete Payne Work Phone: [facility] 07-25-2023 13:00-0500 SaO2% (BldA) [Mass fraction] 98 % Dr. Pete Payne Work Phone: [facility] 07-25-2023 13:00-0500 Systolic blood pressure 136 mm[Hg] Dr. Pete Payne Work Phone: [facility] 07-25-2023 08:00-0500 Body height 147.[address] Pete Payne Work Phone: [facility] 07-25-2023 08:00-0500 Body mass index (BMI) [Ratio] 29.2 kg/m2 Dr. Pete Payne Work Phone: [facility] 07-25-2023 08:00-0500 Body weight 63.[address] Pete Payne Work Phone: [facility] 01-20-2023 03:50-0400 Diastolic blood pressure 61 mm[Hg] Dr. Nancy Ewing Work Phone: [facility] 01-20-2023 03:50-0400 Heart rate 78 /min Dr. Nancy Ewing Work Phone: 8(465)851-471479 [place] [address] 01-20-2023 03:50-0400 Respiratory rate 18 /min Dr. Nancy Ewing Work Phone: 2(573)906-335679 [place] [address] 01-20-2023 03:50-0400 SaO2% (BldA) [Mass fraction] 97 % Dr. Nancy Ewing Work Phone: 6(619)586-358479 [place] [address] 01-20-2023 03:50-0400 Systolic blood pressure 146 mm[Hg] Dr. Nancy Ewing Work Phone: 8(522)034-023879 [place] [address] 01-20-2023 02:01-0400 Body height 147.[address] Nancy Ewing Work Phone: 7(378)254-271879 [place] [address] 01-20-2023 02:01-0400 Body mass index (BMI) [Ratio] 26.9 kg/m2 Dr. Nancy Ewing Work Phone: 6(751)711-442879 [place] [address] 01-20-2023 02:01-0400 Body temperature 97.5 [degF] Dr. Nancy Ewing Work Phone: 9(902)070-003479 [place] [address] 01-20-2023 02:01-0400 Body weight 58.[address] Nancy Ewing Work Phone: 5(641)235-093479 [place] [address] 11-29-2022 09:42-0400 Heart rate 92 /min Dr. Nancy Ewing Work Phone: 6(366)807-275979 [place] [address] 11-29-2022 09:42-0400 Respiratory rate 16 /min Dr. Nancy Ewing Work Phone: 9(177)749-555979 [place] [address] 11-29-2022 09:42-0400 SaO2% (BldA) [Mass fraction] 97 % Dr. Nancy Ewing Work Phone: 2(185)777-758079 [place] [address] 11-29-2022 09:41-0400 Body temperature 97.6 [degF] Dr. Nancy Ewing Work Phone: 6(818)440-197079 [place] [address] 11-29-2022 09:41-0400 Diastolic blood pressure 59 mm[Hg] Dr. Nancy Ewing Work Phone: [facility] 11-29-2022 09:41-0400 Systolic blood pressure 144 mm[Hg] Dr. Nancy Ewing Work Phone: [facility] 11-28-2022 13:27-0400 Body temperature 97.1 [degF] Dr. Nancy Ewing Work Phone: [facility] 11-28-2022 13:27-0400 Diastolic blood pressure 61 mm[Hg] Dr. Nancy Ewing Work Phone: [facility] 11-28-2022 13:27-0400 Heart rate 65 /min Dr. Nancy Ewing Work Phone: [facility] 11-28-2022 13:27-0400 Respiratory rate 16 /min Dr. Nancy Ewing Work Phone: [facility] 11-28-2022 13:27-0400 SaO2% (BldA) [Mass fraction] 95 % Dr. Nancy Ewing Work Phone: [facility] 11-28-2022 13:27-0400 Systolic blood pressure 133 mm[Hg] Dr. Nancy Ewing Work Phone: [facility] 11-26-2022 14:37-0400 Body height 147.[address] Nancy Ewing Work Phone: [facility] 11-26-2022 14:37-0400 Body weight 54.[address] Nancy Ewing Work Phone: [facility] 11-25-2022 12:48-0400 Body mass index (BMI) [Ratio] 25 kg/m2 Dr. Nancy Ewing Work Phone: [facility] 11-13-2022 14:35-0400 Body temperature 98 [degF] Dr. Nancy Ewing Work Phone: [facility] 11-13-2022 14:35-0400 Diastolic blood pressure 48 mm[Hg] Dr. Nancy Ewing Work Phone: [facility] 11-13-2022 14:35-0400 Heart rate 71 /min Dr. Nancy Ewing Work Phone: [facility] 11-13-2022 14:35-0400 Respiratory rate 18 /min Dr. Nancy Ewing Work Phone: [facility] 11-13-2022 14:35-0400 SaO2% (BldA) [Mass fraction] 100 % Dr. Nancy Ewing Work Phone: 0(281)960-460579 [place] [address] 11-13-2022 14:35-0400 Systolic blood pressure 123 mm[Hg] Dr. Nancy Ewing Work Phone: 5(789)383-279079 [place] [address] 11-12-2022 12:32-0400 Body height 147.[address] Nancy Ewing Work Phone: 1(845)627-690879 [place] [address] 11-12-2022 12:32-0400 Body weight 55.[address] Nancy Ewing Work Phone: [facility] 11-11-2022 22:57-0400 Body mass index (BMI) [Ratio] 25.5 kg/m2 Dr. Nancy Ewing Work Phone: [facility] 11-11-2022 21:44-0400 Body temperature 97.8 [degF] Dr. Nancy Ewing Work Phone: [facility] 11-11-2022 21:44-0400 Diastolic blood pressure 60 mm[Hg] Dr. Nancy Ewing Work Phone: [facility] 11-11-2022 21:44-0400 Heart rate 75 /min Dr. Nancy Ewing Work Phone: [facility] 11-11-2022 21:44-0400 Respiratory rate 17 /min Dr. Nancy Ewing Work Phone: [facility] 11-11-2022 21:44-0400 SaO2% (BldA) [Mass fraction] 100 % Dr. Nancy Ewing Work Phone: [facility] 11-11-2022 21:44-0400 Systolic blood pressure 134 mm[Hg] Dr. Nancy Ewing Work Phone: [facility] 11-11-2022 16:37-0400 Body height 147.[address] Nancy Ewing Work Phone: [facility] 11-11-2022 16:37-0400 Body mass index (BMI) [Ratio] 26.2 kg/m2 Dr. Nancy Ewing Work Phone: [facility] 11-11-2022 16:37-0400 Body weight 56.[address] Nancy Ewing Work Phone: [facility] Encounters Encounter Date Encounter Type Care Provider Facility Start: 05-23-2025 ambulatory [place]be Oleghe Facili ty:[facility] Start: 05-15-2025 ambulatory [place]be Oleghe Facili ty:[facility] Start: 05-02-2025 Registered Referred Pete Payne MD [facility] Start: 05-02-2025 End: 05-02-2025 ambulatory Efewongbe Oleghe OLS Facility:[facility] Start: 04-30-2025 Registered Referred Santana chavez [facility] Start: 04-30-2025 End: 04-30-2025 ambulatory Efewongbe Oleghe Facility:[facility] Start: 03-28-2025 End: 03-28-[address] Pete Payne MD Work Phone: -[facility] Start: 03-28-2025 End: 03-28-[address] Pete Payne MD -[facility] Work Phone: Start: 03-21-2025 Registered Referred Efewongsudarshan Virk Start: 03-21-2025 End: 03-21-2025 ambulatory Pete Payne Facility:[facility] Start: 03-15-2025 Registered Referred Pete Virk Start: 03-15-2025 End: 03-15-2025 ambulatory Pete Payne Facility:[facility] Start: 02-23-2025 End: 02-23-[address] Pete Payne MD Work Phone: [facility] Start: 02-23-2025 End: 02-23-2025 Patient encounter procedure Mateo CRANDALL [facility] Work Phone: Start: 02-21-2025 ambulatory Celestegeena Payne Facili ty:[facility] Start: 02-21-2025 Registered Referred Pete Virk Start: 02-06-2025 End: 02-06-[address] Pete Payne MD Work Phone: -[facility] Start: 02-06-2025 End: 02-06-2025 Departed Referred Pete Virk Start: 02-06-2025 Registered Referred Pete Virk Start: 02-06-2025 End: 02-06-2025 ambulatory Pete ROBERTS Facility:[facility] Start: 01-17-2025 End: 01-17-[address] Pete Payne MD Work Phone: [facility] Start: 01-17-2025 End: 01-17-[address] Pete Payne MD [facility] Work Phone: Start: 01-13-2025 Registered Referred Pete Virk Start: 01-13-2025 End: 01-13-2025 ambulatory Efgeena ROBERTS Facility:[facility] Start: 01-03-2025 End: 01-03-[address] Pete Payne MD Work Phone: [facility] Start: 01-03-2025 End: 01-03-2025 Patient encounter procedure Poppy Mccracken PATTERN DRAFTERNadiaC -[facility] Work Phone: Start: 12-26-2024 ambulatory Pete ROBERTS Fa cility:[facility] Start: 12-26-2024 Registered Referred Pete Virk Start: 12-13-2024 End: 12-13-[address] Pete Payne MD Work Phone: [facility] Work Phone: Start: 12-13-2024 End: 12-13-2024 Departed Referred Pete Virk Start: 12-13-2024 Registered Referred Pete Virk Start: 12-13-2024 End: 12-13-2024 ambulatory Pete ROBERTS Facility:[facility] Start: 12-06-2024 End: 12-06-[address] Pete Payne MD Work Phone: [facility] Start: 12-06-2024 End: 12-06-[address] Pete Payne MD -[facility] Work Phone: Start: 11-22-2024 End: 11-22-[address] Pete Payne MD Work Phone: [facility] Work Phone: Start: 11-22-2024 End: 11-22-2024 Departed Referred Pete Virk Start: 11-22-2024 Registered Referred Pete Virk Start: 11-22-2024 End: 11-22-2024 ambulatory Pete ROBERTS Facility:[facility] Start: 11-14-2024 End: 11-14-[address] Pete Payne MD Work Phone: [facility] Work Phone: Start: 11-14-2024 End: 11-14-2024 Departed Referred Pete Virk Start: 11-14-2024 End: 11-14-2024 ambulatory Pete Payne OLS Facility:[facility] Start: 11-03-2024 End: 11-04-2024 Emergency department patient visit Dr. Pete Payne MD Work Phone: -Emergency Department Work Phone: Start: 10-21-2024 End: 10-21-2024 ambulatory Poppy Mccracken NP Facility:[facility] Start: 10-21-2024 End: 10-21-2024 [facility] Start: 10-17-2024 End: 10-17-[address] Pete Payne MD Work Phone: [facility] Work Phone: Start: 10-17-2024 End: 10-17-2024 Departed Referred Pete Virk Start: 10-17-2024 Registered Referred Pete Virk Start: 10-17-2024 End: 10-17-2024 ambulatory Pete ROBERTS Facility:[facility] Start: 10-10-2024 End: 10-10-[address] Pete Payne MD Work Phone: [facility] Work Phone: Start: 10-10-2024 End: 10-10-2024 Departed Referred Pete Virk Start: 10-10-2024 Registered Referred Pete Montelongongton Start: 10-10-2024 End: 10-10-2024 ambulatory Pete ROBERTS Facility:[facility] Start: 10-06-2024 End: 10-06-[address] Pete Payne MD Work Phone: [facility] Work Phone: Start: 10-06-2024 End: 10-06-2024 Departed Referred Pete Virk Start: 10-06-2024 Registered Referred Pete Virk Start: 10-06-2024 End: 10-06-2024 ambulatory Pete ROBERTS Facility:[facility] Start: 10-03-2024 End: 10-03-[address] Pete Payne MD Work Phone: [facility] Work Phone: Start: 10-03-2024 End: 10-03-2024 Departed Referred Pete Virk Start: 10-03-2024 End: 10-03-2024 ambulatory Pete ROBERTS Facility:[facility] Start: 09-20-2024 End: 09-20-2024 ambulatory Pete Payne Facility:[facility] Start: 09-20-2024 End: 09-20-[address] Pete Payne MD -[facility] Work Phone: Start: 09-01-2024 End: 09-01-2024 ambulatory Mateo CRANDALL Facility:[facility] Start: 09-01-2024 End: 09-01-2024 Patient encounter procedure Mateo CRANDALL -[facility] Work Phone: Start: 08-23-2024 ambulatory Pete ROBERTS Fa cility:[facility] Start: 08-23-2024 Registered Referred Pete Virk Start: 07-11-2024 End: 07-11-2024 Departed Referred Pete Payne MD [facility] Start: 07-11-2024 End: 07-11-2024 ambulatory Pete Payne OLS Facility:[facility] Start: 06-21-2024 End: 06-21-2024 ambulatory Pete Beltranyulia Facility:[facility] Start: 06-21-2024 End: 06-21-2024 Patient encounter procedure Poppy BLANC -[facility] Work Phone: Start: 05-31-2024 End: 05-31-2024 ambulatory Pete Beltranyulia Facility:[facility] Start: 05-30-2024 End: 05-30-2024 ambulatory Saturninoanne Devinyulia OLS Facility:[facility] Start: 08-25-2023 End: 08-25-[address] Pete Payne Work Phone: [facility] Work Phone: Start: 08-25-2023 End: 08-25-[address] Pete Payne Work Phone: [facility] Start: 07-25-2023 End: 07-25-2023 Emergency department patient visit Dr. Pete Payne Work Phone: [facility]Emergency Department Work Phone: Start: 07-02-2023 End: 07-02-[address] Pete Payne Work Phone: [facility] Work Phone: Start: 06-02-2023 End: 06-02-[address] Pete Payne Work Phone: [facility] Work Phone: Start: 05-04-2023 End: 05-04-[address] Pete Payne Work Phone: [facility] Work Phone: Start: 03-31-2023 End: 03-31-[address] Pete Payne Work Phone: [facility] Work Phone: Start: 03-16-2023 End: 03-16-[address] Pete Payne Work Phone: [facility] Work Phone: Start: 03-16-2023 End: 03-16-[address] Pete Payne Work Phone: [facility] Start: 03-16-[address] Madison Payne Work Phone: [facility] Start: 03-14-2023 End: 03-14-[address] Pete Payne Work Phone: [facility] Work Phone: Start: 03-12-2023 End: 03-12-[address] Pete Payne Work Phone: [facility] Work Phone: Start: 03-12-2023 End: 03-12-[address] Pete Payne Work Phone: [facility] Start: 01-27-2023 End: 01-27-[address] Pete Payne Work Phone: [facility] Work Phone: Start: 01-20-2023 End: 01-20-2023 Emergency department patient visit Dr. Nancy Ewing Work Phone: [facility]Emergency Department Work Phone: Start: 12-23-2022 End: 12-23-[address] Pete Payne Work Phone: [facility] Work Phone: Start: 12-02-2022 End: 12-02-[address] Nancy Ewing Work Phone: [facility] Work Phone: Start: 12-01-2022 End: 12-01-[address] Nancy Ewing Work Phone: [facility] Work Phone: Start: 12-01-2022 End: 12-01-[address] Nancy Ewing Work Phone: [facility] Start: 11-24-2022 End: 11-24-[address] Nancy Ewing Work Phone: [facility] Work Phone: Start: 11-24-2022 End: 11-24-[address] Nancy Ewing Work Phone: [facility] Start: 11-13-2022 End: 11-29-2022 Evaluation and management of inpatient Dr. Nancy Ewing Work Phone: [facility]-Transitional Care Unit Start: 11-13-2022 Non-patient / Non-visit Dr. Christophe Ewing Work Phone: [facility] Start: 11-12-2022 Non-patient / Non-visit Dr. Christophe Ewing Work Phone: [facility] Start: 11-11-2022 Non-patient / Non-visit Dr. Christophe Ewing Work Phone: [facility] Start: 11-11-2022 End: 11-13-2022 Evaluation and management of inpatient Dr. Nancy Ewing Work Phone: [facility]-Medical Surgical 3 Procedures Date Procedure Procedure [...] Registered Referred -[facility] Start: 11-04-2024 [facility] Start: 11-03-2024 Simple repair f/e/e/n/l/m 2.6cm-5.0 cm RPR F/E/E/N/L/M 2.6-5.0 CM [facility] Start: 07-25-2023 [facility] Start: 01-02-2023 Blood chemistry [facility] Start: 12-26-2022 Blood chemistry [facility] Start: 12-19-2022 Blood chemistry [facility] Start: 12-12-2022 Blood chemistry [facility] Start: 12-05-2022 Blood chemistry [facility] Start: 11-29-2022 Patient discharge [facility] Start: 11-28-2022 Development of care plan [facility] Start: 11-20-2022 [facility] Start: 11-20-2022 [facility] Start: 11-19-2022 Palliative care [facility] Start: 11-19-2022 [facility] Start: 11-18-2022 [facility] Start: 11-17-2022 [facility] Start: 11-16-2022 [facility] Start: 11-15-2022 [facility] Start: 11-14-2022 Developing a treatment plan [facility] Start: 11-14-2022 Speech therapy management [facility] Start: 11-14-2022 Development of care plan [facility] Start: 11-14-2022 End: 11-14-2022 [facility] Start: 11-13-2022 Patient referral to dietitian [facility] Start: 11-13-2022 Speech therapy assessment [facility] Start: 11-13-2022 Following clinical pathway protocol [facility] Start: 11-13-2022 Admission procedure [facility] Start: 11-13-2022 Measuring intake and output [facility] Start: 11-13-2022 Patient referral to dietitian [facility] Start: 11-13-2022 Referral to occupational therapist [facility] Start: 11-13-2022 Referral to service [facility] Start: 11-13-2022 Verification routine [facility] Start: 11-13-2022 Vital signs measurements [facility] Start: 11-13-2022 [facility] Start: 11-13-2022 Patient discharge [facility] Start: 11-12-2022 Vitamin D, 25-hydroxy measurement [facility] Start: 11-12-2022 [facility] Start: 11-12-2022 Patient referral to dietitian [facility] Start: 11-11-2022 Blood chemistry [facility] Start: 11-11-2022 Following clinical pathway protocol [facility] Start: 11-11-2022 Assessment of risk of venous thromboembolism [facility] Start: 11-11-2022 Insertion of catheter into peripheral vein [facility] Start: 11-11-2022 Oxygen therapy [facility] Start: 11-11-2022 Providing care according to standard [facility] Start: 11-11-2022 Provision of activity privileges [facility] Start: 11-11-2022 Referral to occupational therapist [facility] Start: 11-11-2022 Referral to service [facility] Start: 11-11-2022 [facility] Start: 11-11-2022 Verification routine [facility] Start: 11-11-2022 Admission procedure [facility] Start: 11-11-2022 [facility] aminotransfe rase [Enzymatic activity/volume] in Serum or Plasma [facility] Albumin [Mass/volume ] in Serum or Plasma [facility] Alkaline phosphatase [Enzymatic activity/volume] in Serum or Plasma [facility] Anion gap measurement [facility] Anion gap measurement [facility] Anion gap measurement [facility] Anion gap measurement [facility] Anion gap measurement [facility] Anion gap measurement [facility] Aspartate aminotrans ferase [Enzymatic activity/volume] in Serum or Plasma [facility] Bilirubin, total measurement [facility] Bilirubin.direct [Mass/volume] in Serum or Plasma [facility] BUN/Creatinine ratio [facility] BUN/Creatinine ratio [facility] BUN/Creatinine ratio [facility] BUN/Creatinine ratio [facility] BUN/Creatinine ratio [facility] BUN/Creatinine ratio [facility] Calcium [Mass/volume ] in Serum or Plasma [facility] Calcium [Mass/volume ] in Serum or Plasma [facility] Calcium [Mass/volume ] in Serum or Plasma [facility] Calcium [Mass/volume ] in Serum or Plasma [facility] Calcium [Mass/volume ] in Serum or Plasma [facility] Calcium [Mass/volume ] in Serum or Plasma [facility] Carbon dioxide, tota l [Moles/volume] in Serum or Plasma [facility] Carbon dioxide, tota l [Moles/volume] in Serum or Plasma [facility] Carbon dioxide, tota l [Moles/volume] in Serum or Plasma [facility] Carbon dioxide, tota l [Moles/volume] in Serum or Plasma [facility] Carbon dioxide, tota l [Moles/volume] in Serum or Plasma [facility] Carbon dioxide, tota l [Moles/volume] in Serum or Plasma [facility] Chloride [Moles/volu me] in Serum or Plasma [facility] Chloride [Moles/volu me] in Serum or Plasma [facility] Chloride [Moles/volu me] in Serum or Plasma [facility] Chloride [Moles/volu me] in Serum or Plasma [facility] Chloride [Moles/volu me] in Serum or Plasma [facility] Chloride [Moles/volu me] in Serum or Plasma [facility] Cortisol [Mass/volum e] in Serum or Plasma [facility] Creatinine [Moles/vo lume] in Serum or Plasma [facility] Creatinine [Moles/vo lume] in Serum or Plasma [facility] Creatinine [Moles/vo lume] in Serum or Plasma [facility] Creatinine [Moles/vo lume] in Serum or Plasma [facility] Creatinine [Moles/vo lume] in Serum or Plasma [facility] Creatinine [Moles/vo lume] in Serum or Plasma [facility] Glucose [Mass/volume ] in Serum or Plasma [facility] Glucose [Mass/volume ] in Serum or Plasma [facility] Glucose [Mass/volume ] in Serum or Plasma [facility] Glucose [Mass/volume ] in Serum or Plasma [facility] Glucose [Mass/volume ] in Serum or Plasma [facility] Glucose [Mass/volume ] in Serum or Plasma [facility] Hematocrit [Volume Fraction] of Blood [facility] Hematocrit [Volume Fraction] of Blood [facility] Hematocrit [Volume Fraction] of Blood [facility] Hematocrit [Volume Fraction] of Blood [facility] Hematocrit [Volume Fraction] of Blood [facility] Hematocrit [Volume Fraction] of Blood [facility] Hemoglobin [Mass/vol ume] in Blood [facility] Hemoglobin [Mass/vol ume] in Blood [facility] Hemoglobin [Mass/vol ume] in Blood [facility] Hemoglobin [Mass/vol ume] in Blood [facility] Hemoglobin [Mass/vol ume] in Blood [facility] Hemoglobin [Mass/vol ume] in Blood [facility] Leukocytes [#/volume ] in Blood [facility] Leukocytes [#/volume ] in Blood [facility] Leukocytes [#/volume ] in Blood [facility] Leukocytes [#/volume ] in Blood [facility] Leukocytes [#/volume ] in Blood [facility] Leukocytes [#/volume ] in Blood [facility] Magnesium [Mass/volu me] in Serum or Plasma [facility] Mean corpuscular hem oglobin concentration determination [facility] Mean corpuscular hem oglobin concentration determination [facility] Mean corpuscular hem oglobin concentration determination [facility] Mean corpuscular hem oglobin concentration determination [facility] Mean corpuscular hem oglobin concentration determination [facility] Mean corpuscular hem oglobin concentration determination [facility] Mean corpuscular hem oglobin determination [facility] Mean corpuscular hem oglobin determination [facility] Mean corpuscular hem oglobin determination [facility] Mean corpuscular hem oglobin determination [facility] Mean corpuscular hem oglobin determination [facility] Mean corpuscular hem oglobin determination [facility] Measurement of renal function [facility] Measurement of renal function [facility] Measurement of renal function [facility] Measurement of renal function [facility] Measurement of renal function [facility] Measurement of renal function [facility] Neutrophil count [facility] Neutrophil count [facility] Neutrophil count [facility] Neutrophil count [facility] Neutrophil count [facility] Neutrophil count [facility] Neutrophil percent differential count [facility] Neutrophil percent differential count [facility] Neutrophil percent differential count [facility] Neutrophil percent differential count [facility] Neutrophil percent differential count [facility] Neutrophil percent differential count [facility] Patient Education [facility] Work Phone: Patient referral [facility] Work Phone: Platelets [#/volume] in Blood [facility] Platelets [#/volume] in Blood [facility] Platelets [#/volume] in Blood [facility] Platelets [#/volume] in Blood [facility] Platelets [#/volume] in Blood [facility] Platelets [#/volume] in Blood [facility] Potassium [Moles/vol ume] in Serum or Plasma [facility] Potassium [Moles/vol ume] in Serum or Plasma [facility] Potassium [Moles/vol ume] in Serum or Plasma [facility] Potassium [Moles/vol ume] in Serum or Plasma [facility] Potassium [Moles/vol ume] in Serum or Plasma [facility] Potassium [Moles/vol ume] in Serum or Plasma [facility] Red blood cell count [facility] Red blood cell count [facility] Red blood cell count [facility] Red blood cell count [facility] Red blood cell count [facility] Red blood cell count [facility] Red cell distributio n width determination [facility] Red cell distributio n width determination [facility] Red cell distributio n width determination [facility] Red cell distributio n width determination [facility] Red cell distributio n width determination [facility] Red cell distributio n width determination [facility] Sodium [Moles/volume ] in Serum or Plasma [facility] Sodium [Moles/volume ] in Serum or Plasma [facility] Sodium [Moles/volume ] in Serum or Plasma [facility] Sodium [Moles/volume ] in Serum or Plasma [facility] [facility] Sodium [Moles/volume ] in Serum or Plasma [facility] Sodium [Moles/volume ] in Serum or Plasma [facility] Total protein measurement [facility] Urate [Mass/volume] in Serum or Plasma [facility] Urea nitrogen [Mass/ volume] in Serum or Plasma [facility] Urea nitrogen [Mass/ volume] in Serum or Plasma [facility] Urea nitrogen [Mass/ volume] in Serum or Plasma [facility] Urea nitrogen [Mass/ volume] in Serum or Plasma [facility] Urea nitrogen [Mass/ volume] in Serum or Plasma [facility] Urea nitrogen [Mass/ volume] in Serum or Plasma [facility] Immunizations Immunization Date Immunization Notes Care Provider Fa cili 07-03-2022 Covid Pfizer Bivalen t Booster Dr. Nancy Ewing Work Phone: [facility] 06-06-2021 Covid (Pfizer) Dr. Nancy Ewing Work Phone: [facility] 08-16-2020 Covid (Pfizer) Dr. Nancy Ewing Work Phone: [facility] 07-26-2020 Covid (Pfizer) Dr. Nancy Ewing Work Phone: [facility] 07-20-2012 pneumococcal conjuga te vaccine, [address] Nancy Ewing Work Phone: [facility] 07-20-2001 pneumococcal vaccine , unspecified formulation Dr. Nancy Ewing Work Phone: [facility] Payers Date Payer Category Payer Medicaid [id number] 2024 Self-pay [id number] 2015 Private Health Insurance [id number] 2001 Medicare MEDICARE PART A B [id number] Unknown AARP MCR ADV [id number] Unknown [id number] 2.16.840.1.996660.3.579.2.462 Unknown [id number] 2.16.840.1.233382.3.579.2.462 Unknown [id number] 2.16.840.1.704270.3.579.2.462 Unknown [id number] 2.16.840.1.673548.3.579.2.462 Unknown [id number] 2.16.840.1.437717.3.579.2.462 Unknown [id number] 2.16.840.1.134980.3.579.2.462 Unknown [id number] 2.16.840.1.061619.3.579.2.462 Unknown [id number] 2.16.840.1.997906.3.579.2.462 Unknown [id number] 2.16.840.1.225923.3.579.2.462 Unknown [id number] 2.16.840.1.131434.3.579.2.462 Unknown [id number] 2.16.840.1.268573.3.579.2.462 Unknown [id number] 2.16.840.1.973939.3.579.2.462 Unknown [id number] 2.16.840.1.085986.3.579.2.462 Unknown [id number] 2.16.840.1.555393.3.579.2.462 Unknown [id number] 2.16.840.1.735693.3.579.2.462 Unknown [id number] 2.16.840.1.983267.3.579.2.462 Unknown [id number] 2.16.840.1.239659.3.579.2.462 Unknown [id number] 2.16.840.1.409200.3.579.2.462 Unknown [id number] 2.16.840.1.735615.3.579.2.462 Unknown [id number] 2.16.840.1.672050.3.579.2.462 Unknown [id number] 2.16.840.1.042680.3.579.2.462 Unknown [id number] 2.16.840.1.734506.3.579.2.462 Unknown [id number] 2.16.840.1.983164.3.579.2.462 Unknown [id number] 2.16.840.1.004664.3.579.2.462 Unknown [id number] 2.16.840.1.292967.3.579.2.462 Unknown [id number] 2.16.840.1.769428.3.579.2.462 Unknown [id number] 2.16.840.1.153727.3.579.2.462 Unknown [id number] 2.16.840.1.673803.3.579.2.462 Unknown [id number] 2.16.840.1.590673.3.579.2.462 Unknown [id number] 2.16.840.1.365173.3.579.2.462 Unknown [id number] 2.16.840.1.921599.3.579.2.462 Social History Date Type Detail Facility Start: 11-11-2022 End: 07-25-2023 Tobacco smoking status WYIS Unknown if ever smoked [facility] Start: 11-11-2022 Rare [facility] Start: 11-11-2022 None [facility] Start: 11-11-2022 Homeless [facility] Start: 11-11-2022 Non-smoker [facility] Start: 1935 Sex Assigned At Female [facility] Start: 07-25-2023 End: 05-05-2025 Tobacco smoking status NHIS Never smoked tobacco (finding) [facility] Start: 10-19-2024 End: 11-08-2024 Sex Female (finding) [facility] Sex Female [facility] Goals Date Patient Goal Desired Activity /State Functional Status Date Assessment Result Facility 11-29-2022 Functional status Ambulates [facility] Work Phone: 11-28-2022 Functional status Ambulates [facility] Work Phone: 11-13-2022 Functional status 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 [facility] Work Phone: Mental Status Date Assessment Result Facility 07-25-2023 Cognitive function Voice/Name [facility] Work Phone: 11-29-2022 Cognitive function Voice/Name [facility] Work Phone: 11-27-2022 Cognitive function Voice/Name [facility] Work Phone: 11-26-2022 Cognitive function Appropriate;Cooperativ e [facility] Work Phone: 11-13-2022 Cognitive function Voice/Name [facility] Work Phone: Clinical Notes 11-12-2022 to 11-04-2024 Note Date & Type Note Facility 11-04-2024 Discharge summary Note Date/Time November 04, 2024 12:36am [facility] Medical Records Department [address] [place] [address] Emergency Department Summary 11/03/24 MR#: [id number] Acct: [id number] Name: MAXIME AMARAL Rep #:[id number] : 1935 89 From: Alirio Patel PCP: Dr. Pete Payne MD Status:R EG ER Location: ED HPI HPI - Fall History of Present Illness Chief Complaint: Fall Informant: patient and family Narrative Narrative: Patient brought in by EMS from [facility] witnessed fall head injury. Patient [...] from paperwork. She has baseline per son. [facility] Medical History Dry eye syndrome of bilateral [...] clinician: N/A This note was generated with [employer] dictation software. It may contain incorrectwords, spelling, and punctuation that were not noted in checking the note beforesigning. Radiography Diagnostic Testing: Clinical Impression(s) from Imaging Studies Shoulder X-Ray 11/03/24 21:48 IMPRESSION: NO ACUTE FRACTURE OR DISLOCATION. Reading Location: [facility] Brain CT 11/03/24 22:10 IMPRESSION: CHRONIC CHANGES. NO ACUTE FINDINGS. Reading Location: [facility] Cervical Spine CT 11/03/24 22:10 IMPRESSION: NO ACUTE CERVICAL FRACTURE. DEGENERATIVE CHANGES. No acute fracture or subluxation. Reading Location: [facility] Facial/Sinus 11/03/24 22:10 IMPRESSION: Small soft tissue laceration along the right supraorbital region. No acute fracture. Reading Location: [facility] Discharge Plan Triage Chief Complaint: Fall [...] in 5 to 7 days. Print Language: Kyrgyz Disposition Disposition: Home, Self Care What to do if you have Problems For any increased pain, shortness of breath, bleeding, nausea or vomiting, chestpain, or any unexpected problems, contact your Primary Care Provider. Call [facility] ([phone]) or report to the closest Emergency Room. Call 911 if necessary. 11/04/24 0036 <Electronically signed by Alirio Patel> Cosigner Signature (if applicable): CC: Dr. Pete Payne MD ~ Signed [facility] Work Phone: 1(637) 165-428904-18-2025 Discharge summary [facility] Medical Records Department [address] [place] [address] Emergency Department Summary 11/03/24 MR#: [id number] Acct: [id number] Name: MAXIME AMARAL Rep #:[id number] : 1935 89 From: Alirio Patel PCP: Dr. Pete Payne MD Status:R EG ER Location: ED HPI HPI - Fall History of Present Illness Chief Complaint: Fall Informant: patient and family Narrative Narrative: Patient brought in by EMS from [facility] witnessed fall head injury. Patient [...] from paperwork. She has baseline per son. [facility] Medical History Dry eye syndrome of bilateral [...] clinician: N/A This note was generated with [employer] dictation software. It may contain incorrectwords, spelling, and punctuation that were not noted in checking the note beforesigning. Radiography Diagnostic Testing: Clinical Impression(s) from Imaging Studies Shoulder X-Ray 11/03/24 21:48 IMPRESSION: NO ACUTE FRACTURE OR DISLOCATION. Reading Location: [facility] Brain CT 11/03/24 22:10 IMPRESSION: CHRONIC CHANGES. NO ACUTE FINDINGS. Reading Location[facility] Cervical Spine CT 11/03/24 22:10 IMPRESSION: NO ACUTE CERVICAL FRACTURE. DEGENERATIVE CHANGES. No acute fracture or subluxation. Reading Location: [facility] Facial/Sinus 11/03/24 22:10 IMPRESSION: Small soft tissue laceration along the right supraorbital region. No acute fracture. Reading Location: [facility] Discharge Plan Triage Chief Complaint: Fall Other [...] in 5 to 7 days. Print Language: Kyrgyz Disposition Disposition: Home, Self Care What to do if you have Problems For any increased pain, shortness of breath, bleeding, nausea or vomiting, chestpain, or any unexpected problems, contact your Primary Care Provider. Call [facility] ([phone]) or report tothe closest Emergency Room. Call 911 if necessary. 11/04/24 0036 Cosigner Signature (if applicable): CC: Dr. Pete Payne MD ~ Signed [facility]04-17-2025 Radiology Diagnostic study note [facility] Imaging Services [address] [place], [place] [id number] Spine Cervical without Contras MR#: [id number] Acct: [id number] Name: MAXIME AMARAL Rep #: [id number] : 1935 F 89 From: Steve Sotelo DO PCP: Dr. Pete Payne MD Status: R EG ER Study:Spine Cervical without Contras Date of Exam: 11/03/24 Exam# [id number] Ordering Dr: Alirio Edward DO PROCEDURE: SPINE [...] No acute fracture or subluxation. Reading Location: [facility] CC: Dr. Pete Payne MD; Dr. Alirio Edward DO ~ Dramatic Agent: Signed [facility]04-17-2025 Radiology Diagnostic study note [facility] Imaging Services [facility] [place], [place] [id number] Sinus/Facial Bone MR#: [id number] Acct: [id number] Name: MAXIME AMARAL Rep #: [id number] : 1935 F 89 From: Steve Sotelo DO PCP: Dr. Pete Payne MD Status: R EG ER Study:Sinus/Facial Bone Date of Exam: Exam# [id number] Ordering Dr: Alirio Edward DO PROCEDURE: SINUS/FACIAL [...] supraorbital region. No acute fracture. Reading Location: [facility] CC: Dr. Pete Payne MD; Dr. Alirio Edward DO ~ Dramatic Agent: Signed [facility]04-17-2025 Radiology Diagnostic study note [facility] Imaging Services [address] [place] [address] Brain/Head without Contrast MR#: [id number] Acct: [id number] Name: MAXIME AMARAL Rep #: [id number] : 1935 F 89 From: Steve Sotelo DO PCP: Dr. Pete Payne MD Status: R ER Study:Brain/Head without Contrast Date of Exa m: 11/03/24 Exam# [id number] Ordering Dr: Alirio Edward DO PROCEDURE: BRAIN/HEAD [...] CHRONIC CHANGES. NO ACUTE FINDINGS. Reading Location: [facility] CC: Dr. Pete Payne MD; Dr. Alirio Edward DO ~ Dramatic Agent: Signed [facility]04-17-2025 Radiology Diagnostic study note [facility] Imaging Services [address] [place] [address] Shoulder min 2 Views MR#: [id number] Acct: [id number] Name: MAXIME AMARAL Rep #: [id number] : 1935 F 89 From: Steve Sotelo DO PCP: Dr. Pete Payne MD Status: R EG ER Study:Shoulder min 2 Views Date of Exam: 11/03/24 Exam# [id number] Ordering Dr: Alirio Edward DO PROCEDURE: SHOULDER MIN 2 VIEWS 11/03/2024 REASON FOR EXAM: INJURY TECHNIQUE: 3 view(s) of the right shoulder COMPARISON: None FINDINGS: Bones: No acute fracture. Joints: Normal alignment of the acromioclavicular and glenohumeral joints. Soft tissues: Soft tissues are unremarkable. Other: RAD/Shoulder min 2 Views IMPRESSION: NO ACUTE FRACTURE OR DISLOCATION. Reading [facility] CC: Dr. Pete Payne MD; Dr. Alirio Edward DO ~ Dramatic Agent: Signed [facility]01-06-2024 Discharge summary Author [facility] July 25, 2023 8:48am Note Date/Time July 25, 2023 8: 48am [facility] Medical Records Department [address] [facility] [place] [address] Emergency Department Summary 07/25/23 MR#: [id number] Acct: [id number] Name: MAXIME AMARAL Rep #:[id number] : 1935 87 From: Jos Rush DO PCP: Dr. Pete Payne MD Status:R EG ER Location: ED HPI History of Present Illness Chief Complaint: Fall Informant: patient and SNF Narrative Narrative: Patient is a 87-year-old female with history of hypertension hyperlipidemia hypothyroidism type 2 diabetes and debility as well as Alzheimer's disease. Sheis typically A&O x 1. retirement states that she was found on her [...] this time but otherwise denies any symptoms [facility] Medical History Alzheimer's disease, unspecified CKD (chronic [...] 6:45 EST Reading Location ID and State: [facility] / [place] Tel , Service support , Lower Extremity CT 07/25/23 06:44 IMPRESSION: 1. Small amount of presumed hemarthrosis or other complex mildly dense fluid in the suprapatellar bursa. No lipohemarthrosis or convincing acute fracture. 2. Irregular posterior-medial tibial plateau corner is not typical of acute fracture. Demineralization and degenerative changes. Electronically Signed: Gabrielle Gallegos MD at 8:18 EST Reading Location ID and State: [facility] / [place] Tel , Service support , Left hip [...] your Primary Care Provider. Call [facility] ([phone]) or report to the closest Emergency Room. Call 911 if necessary. 07/25/23 0848 <Electronically signed by Jos Rush DO> Cosigner Signature (if applicable): CC: Dr. Pete Payne MD ~ Signed [facility] Work Phone: 1(971) 285-285107-04-2023 Discharge summary Author [facility] January 20, 2023 4:32am Note Date/Time January 20, 2023 3:43a m [facility] Medical Records Department [address] [place] [address] Emergency Department Summary 01/20/23 MR#: [id number] Acct: [id number] Name: MAXIME AMARAL Rep #:[id number] : 1935 87 From: Jos Rush DO [...] shoulders she was sent in for evaluation [facility] Medical History Alzheimer's disease, unspecified Depression, unspecified [...] your Primary Care Provider. Call [facility] ([phone]) or report to the closest Emergency Room. Call 911 if necessary. 01/20/23 0432 <Electronically signed by Jos Rush DO> Cosigner Signature (if applicable): CC: Dr. Pete Payne MD ~ Signed [facility] Work Phone: 1(516) 978-266105-10-[address] 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 * Alzheimer Disease [...] Dao ; Tanisha Henriquez ; Britany White PATTERN DRAFTER Instructions Additional Instructions / Restrictions: Discharge to [facility] 11/29/2022, intermediate. Discharge Orders/Prescriptions Prescriptions: [...] Crooks MD> Cosigner Signature (if applicable): CC: PATTERN DRAFTER-Pérez Tafoya; PATTERN DRAFTERJavier Henriquez; JAYASHREE White; Dr. Steven Dean DO; Dr. Fany Dao MD; ALANNAH BENITO ~ [facility] Work Phone: 1(469) 844-986605-10-[address] Crooks [facility] November 26, 2022 9:09pm Note Date/Time November 26, 2022 9:05p [facility] Medical Records Department [address] [place] [address] Discharge Summary 11/26/222103 MR#: [id number] Acct: [id number] Name: MAXIME AMARAL Rep #:[id number] : 1935 87 From: Sylvester Crooks MD PCP: ALANNAH BENITO Status:ADM IN Location: [place] [address] Providers Date of Admission: 11/13/22 Primary Care [...] for rehabilitation, strengthening, prior to discharge to [facility]. * Debility - [...] - Bupropion XL 150mg daily, stable chronic snf use, GDR not recommended. * Alzheimer Disease [...] to [facility]. Discharge to [facility] 11/29/2022, intermediate. Physical Exam Const [...] 11/26/22 14:47 HUSEYIN (Rec: 11/26/22 14:47 HUSEYIN [id number]) Nutrition Malnutrition Evidence of Malnutrition Exists Yes [...] and Uncontrolled pain Additional Instructions: Discharge to [facility] 11/29/2022, intermediate. Meaningful Use Info Meaningful Use Diagnoses (Choose all that apply): None applicable Discharge Plan Admission Admit Date/Time: 11/13/22 16:43 Primary Reason for Your Visit: Debility. Attending Provider: Sylvester Crooks Chi Primary Care Provider: ALANNAH BENITO Consulting Providers: Magnolia Tafoya ; Steven Dean ; Fany Dao ; Tanisha Henriquez ; Britany White PATTERN DRAFTER Instructions Additional Instructions / Restrictions: Discharge to [facility] 11/29/2022, intermediate. Discharge Orders/Prescriptions Prescriptions: [...] Dr. Sylvester Crooks MD; ALANNAH BENITO~ Signed [facility] Work Phone: 1(564) 669-553905-03-2023 History and physical note Author Dr. Crooks [facility] November 19, 2022 5:00pm Note Date/Time November 13, 2022 7:4 6pm [facility] Medical Records Department [address] [place] [address] History & Physical Exam 11/13/221939 MR#: [id number] Acct: [id number] Name: MAXIME AMARAL Rep #:[id number] : 1935 87 From: Sylvester Crooks MD PCP: ALANNAH BENITO Status:ADM IN Location: [facility] TCU10-1 HPI - General General Date of Admission: 11/13/22 Date of Service: 11/13/22 Chief Complaint: Here for rehabilitation. HPI Narrative 11/11/2022 MAXIME AMARAL, is a 87 Female who presents to [facility] Emergency Department with nausea, vomiting, diarrhea. [...] [facility] Living. 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 * Alzheimer Disease [...] Sylvester Crooks MD; ALANNAH BENITO ~* Signed [facility] Work Phone: 1(350) 304-828104-28-[address] Crooks [facility] November 14, 2022 7:27pm Note Date/Time November 14, 2022 3:5 3pm [facility] Medical Records Department [address] [place] [address] [place] [address] Progress Note - Pharmacy 11/14/22 1531 MR#: [id number] Acct: [id number] Name: MAXIME AMARAL Rep #:[id number] : 1935 87 From: Roselyn Garzon PCP: ALANNAH BENITO Status:ADM IN Location: [facility]CU [place] [address] TCU RX Drug Regimen Review Subjective: TCU [...] by Sylvester Crooks MD> CC: ~ Signed [facility] Work Phone: 1(253) 301-156804-27-[address] Betancur [facility] November 13, 2022 2:06pm Note Date/Time November 13, 2022 1:5 6pm [facility] Medical Records Department [address] [place], [place] [address] [address] Transfer to [facility] MR#: [id number] Acct: [id number] Name: MAXIME AMARAL Rep #:[id number] : 1935 87 From: Bernice Betancur MD [...] with hypothyroidism and dementia who presented to [facility] 11/11/2022 with a sodium of 127 [...] in before D/C Order can be placed): Intermediate Facility 11/13/22 1406 <Electronically signed by Bernice Betancur MD> Cosigner Signature (if applicable): CC: Dr. Ryder Brody MD; ALANNAH BENITO ~ [facility] Work Phone: 1(855) 994-992204-26-[address] Betancur [facility] November 12, 2022 4:53pm Note Date/Time November 12, 2022 7:0 0am [facility] Medical Records Department [address] [facility] [place] [address] Progress Note - Hospitalist 11/12/22 0659 MR#: [id number] Acct: [id number] Name: MAXIME AMARAL Rep #:[id number] : 1935 87 From: Bernice Betancur MD PCP: ALANNAH BENITO Status:ADM IN Location: [place] [address] Reason for Visit Reason for Visit: Diagnoses [...] % (Auto) 59.4, Lymph % (Auto) 31.3, [place]% (Auto) 7.4, Eos % (Auto) 0.9, Baso [...] Clarity Clear, Urine pH 6.0, Ur Specific Dexter 1.010, Urine Protein Negative, Urine Glucose (UA) [...] % (Auto) Cancelled, Lymph % (Auto) Cancelled, [place] % (Auto) Cancelled, Eos % (Auto) Cancelled, [...] Drop Cells Cancelled, Ovalocytes Cancelled, Stomatocytes Cancelled, [place] Bodies Cancelled, Rodolfo Cells Cancelled, Bite Cells [...] % (Auto) 63.6, Lymph % (Auto) 26.7, [place] % (Auto) 7.1, Eos % (Auto) 1.4, [...] Lovenox ordered. Charges/Coding Visit Charges Inpatient E&M: 61573 Subs Hosp L2 11/12/22 1653 <Electronically signed by Bernice Betancur MD> Cosigner Signature (if applicable): CC: ~ Signed [facility] Work Phone: 1(360) 985-331604-26-[address] Ewing [facility] November 11, 2022 11:41pm Note Date/Time November 11, 2022 5:3 3pm [facility] Medical Records Department [address] [place] [address] Emergency Department Summary 11/11/22 MR#: [id number] Acct: [id number] Name: MAXIME AMARAL Rep #:[id number] : 1935 87 From: Nancy Ewing MD PCP: ALANNAH BENITO Status:ADM IN Location: [facility] LO385-1 HPI History of Present Illness Chief Complaint: Nausea/Vomiting/Diarrhea Detail of Chief Complaint: Generalized weakness Informant: patient and family Onset/Context/Timing Onset: Weeks Narrative Narrative: Patient presents via EMS from assisted living at [facility]. Son is at bedside and provides much [...] body pain. She denies fever or cough. [facility] Medical History Alzheimer's disease, unspecified Depression, unspecified [...] Medical decision making narrative: Patient placed on cardiac sonographer. EKG obtained to evaluate for cardiac arrhythmia/ischemia. [...] % (Auto) 59.4 Lymph % (Auto) 31.3 [place] % (Auto) 7.4 Eos % (Auto) 0.9 [...] Color Urine Clarity Urine pH Ur Specific Dexter Urine Protein Urine Glucose (UA) Urine Ketones Urine Occult Blood Urine Nitrite Urine Bilirubin Urine Urobilinogen Ur Leukocyte Esterase Urine RBC Urine WBC Ur Squamous Epith Cells Urine Bacteria Urine Mucus 11/11/22 19:47 WBC RBC Hgb Hct MCV MCH MCHC RDW Std Deviation RDW Coeff of Kristal Plt Count MPV Immature Gran % (Auto) Neut % (Auto) Lymph % (Auto) [place] % (Auto) Eos % (Auto) Baso % [...] Clarity Clear Urine pH 6.0 Ur Specific Dexter 1.010 Urine Protein Negative Urine Glucose (UA) [...] [Non-Staff] - Disposition Disposition: Acute Care Hospital [facility] What to do if you have Problems For any increased pain, shortness of breath, bleeding, nausea or vomiting, chestpain, or any unexpected problems, contact your Primary Care Provider. Call [facility] ([phone]) or report to the closest Emergency Room. Call 911 if necessary. 11/11/222340 <Electronically signed by Nancy Ewing MD> Cosigner Signature (if applicable): CC: ALANNAH BENITO ~ Signed [facility] Work Phone: 1(991) 487-224304-26-2023 History and physical note Author Dr. Brody [facility] November 11, 2022 10:26pm Note Date/Time November 11, 2022 9:3 3pm [facility] Medical Records Department [address] [place] [address] H&P Exam - Hospitalist 11/11/222132 MR#: [id number] Acct: [id number] Name: MAXIME AMARAL Rep #:[id number] : 1935 87 From: Ryder Brody MD PCP: ALANNAH BENITO Status:ADM IN [facility] HPI - General General Date of Admission: 11/11/22 Date of Service: 11/11/22 Chief Complaint: Abnormal labs HPI Narrative MAXIME AMARAL, is a 87 F with a significant history of hypothyroidism and dementia; and who lives at assisted medicine facility at [facility] presenting to the emergency department with abnormal [...] the emergency department patient could not urinate. [facility] Medical History Alzheimer's disease, unspecified Depression, unspecified [...] % (Auto) 59.4, Lymph % (Auto) 31.3, [place] % (Auto) 7.4, Eos % (Auto) 0.9, [...] Clarity Clear, Urine pH 6.0, Ur Specific Dexter 1.010, Urine Protein Negative, Urine Glucose (UA) [...] Lovenox ordered. Charges/Coding Visit Charges Inpatient E&M: 47788 Init Hosp L3 11/11/226 <Electronically signed by Ryder Brody MD> Cosigner Signature (if applicable): CC: Dr. Ryder Brody MD; ALANNAH BENITO~ Signed [facility] Work Phone: Evaluation note* Diagnosis Onset Date Resolution Status Declining functional status acute Hypokalemia acute Hyponatremia acute Weakness acute Hypertension chronic [facility] Work Phone: Evaluation note* Diagnosis Onset Date Resolution Status Declining functional status acute Hyponatremia acute Hypertension chronic Alzheimer disease acute Debility acute Dehydration acute Depression acute Diabetes mellitus acute Hyperlipidemia acute Hyponatremia acute Hypothyroidism acute Hypertension chronic [facility] Work Phone: evaluation note* Diagnosis Onset Date Resolution Status Declining functional status acute Hyponatremia acute Hypertension chronic Alzheimer disease acute Debility acute Depression acute Diabetes mellitus acute Hyperlipidemia acute Hypothyroidism acute Hypertension chronic Dehydration resolved Hyponatremia resolved [facility] Work Phone: Evaluation noteNo assessment information available [facility] Work Phone: History and physical note Author Dr. Brody [facility] November 11, 2022 10:26pm Note Date/Time November 11, 2022 9:3 3pm [facility] Medical Records Department [address] [place] [id number] H&P Exam - Hospitalist 11/11/222132 MR#: [id number] Acct: [id number] Name: MAXIME AMARAL Rep #:[id number] : 1935 87 From: Ryder Brody MD PCP: ALANNAH BENITO Status:ADM IN [facility] [facility] WB[facility]-0 HPI - General General Date of Admission: 11/11/22 Date of Service: 11/11/22 Chief Complaint: Abnormal labs HPI Narrative MAXIME AMARAL, is a 87 F with a significant history of hypothyroidism and dementia; and who lives at assisted medicine facility at [facility] presenting to the emergency department with abnormal [...] the emergency department patient could not urinate. [facility] Medical History Alzheimer's disease, unspecified Depression, unspecified [...] % (Auto) 59.4, Lymph % (Auto) 31.3, [place] % (Auto) 7.4, Eos % (Auto) 0.9, [...] Clarity Clear, Urine pH 6.0, Ur Specific Dexter 1.010, Urine Protein Negative, Urine Glucose (UA) [...] Lovenox ordered. Charges/Coding Visit Charges Inpatient E&M: 20302 Init Hosp L3 11/11/222225 <Electronically signed by Ryder Brody MD> Cosigner Signature (if applicable): CC: Dr. Ryder Brody MD; ALANNAH BENITO~ Signed [facility] Work Phone: Hospital Discharge instructions Additional Instructions CT head face and neck negative. Right shoulder x-ray negative. 7 sutures placed. Have removed in 5 to 7 days.[facility] Work Phone: Reason for referral (narrative)No reason for referral information availableW[facility] Work Phone: Chief Complaint and Reason for [...] MONTHLY EXAM January 03, 2025 6:30 pm [facility] January 13, 2025 5: 00am Monthly Exam January 17, 2025 5:25p m LABWORK February 06, 2025 5:00 am Chief Complaint Admit Date [facility] November 22, 2024 5:00 am MONTHLY EXAM December 06, 2024 4:15p m [facility] December 13, 2024 5:0 0am [facility] December 26, 2024 4:0 0am MONTHLY EXAM January 03, 2025 6:30 pm [facility] January 13, 2025 5: 00am Monthly Exam January 17, 2025 5:25p m LABWORK February 06, 2025 5:00 am [facility] February 21, 2025 5 :00am MONTHLY EXAM February 23, 2025 10: 35am Chief Complaint Admit Date [facility] WORK December 26, 2024 4:0 0am MONTHLY EXAM January 03, 2025 6:30 pm [facility] WORK January 13, 2025 5: 00am Monthly Exam January 17, 2025 5:25p m LABWORK February 06, 2025 5:00 am [facility] WORK February 21, 2025 5 :00am MONTHLY EXAM February 23, 2025 10: 35am [facility] WORK March 15, 2025 5:00am [facility] WORK March 21 5:00am Chief Complaint Admit Date Monthly Exam January 17, 2025 5:25p m LABWORK February 06, 2025 5:00 am [facility] LAB WORK February 21, 2025 5 :00am MONTHLY EXAM February 23, 2025 10: 35am [facility] WORK March 15, 2025 5:00am [facility] WORK March 21 5:00am MONTHLY EXAM March 28, 2025 12:49pm [facility] HOME LAB WORK May 02, 2025 4:18am Advance Directives No Advanced Directives Records Found Advance Directive Response Recorded Date/ Time Name of Medical Power of Drop Pit Worker ? November 11, 2022 4:49pm Living Will Yes November 11, 2022 4:49pm Power of Drop Pit Worker Yes November 11 4:49pm Advance Directive Response Recorded Date/ Time Name of Medical Power of Drop Pit Worker Matilda Pritchett November 11, 2022 10:59pm Living Will Yes November 11, 2022 10:59pm Power of Drop Pit Worker Yes November 11 10:59pm Advance Directive Response Recorded Date/ Time Name of Medical Power of Drop Pit Worker Matilda Pritchett November 11, 2022 10:59pm Name of Medical Power of Drop Pit Worker christine Pritchett November 14, 2022 10:44am Living Will Yes November 14, 2022 10:44am Power of Drop Pit Worker Yes November 14 10:44am Advance Directive Response Recorded Date/ Time Living Will Yes November 14, 2022 10:44am Power of Drop Pit Worker Yes November 14 10:44am Advance Directive Response Recorded Date/ Time Name of Medical Power of Drop Pit Worker NYA MORRIS July 25, 2023 4:49am Living Will Yes July 25 4:49am Power of Drop Pit Worker Yes July 25 4:49am Advance Directive Response Recorded Date/ Time Living Will Yes November 03, 2024 9:16pm Do you have a Healthcare Power of Drop Pit Worker? Yes November 03, 2024 9:16pm Name of Medical Power of Drop Pit Worker Daniel Amaral November 03, 2024 9:16pm Summary [...] 2024 End: October 21, 2024 Poppy Mccracken PATTERN DRAFTER, PATTERN DRAFTER-C Attending Provider Active Start: October 21, 2024 End: October 21, 2024 Team Status: Inactive Member Role Status Dates Dr. Pete aPyne MD Primary Care Provider Active Start: November [...] Dr. Mariano Dao MD Family Provider Active [facility] Primary Care Provider Active Team Status: Active Member Role Status Dates Dr. Nancy Ewing MD Emergency Provider Active [facility] Primary Care Provider Active Dr. Ryder Brody MD Admit Provider, Attending Provider, Other Provider Active Team Status: Active Member Role Status Dates Dr. Nancy Ewing MD Emergency Provider Active ALANNAH [facility] Primary Care Provider Active Dr. Ryder Brody MD Admit Provider, Attending Pro vider Active Team Status: Active Member Role Status Dates Dr. Nancy Ewing MD Emergency Provider Active ALANNAH [facility] Primary Care Provider Active Dr. Ryder Brody MD Admit Provider, Other Provide r Active Dr. Bernice Betancur MD Attending Provider, Other Provid er Active Team Status: Inactive Member Role Status Dates Dr. Nancy Ewing MD Emergency Provider Active ALANNAH [facility] Primary Care Provider Active Dr. Ryder Brody MD Admit Provider, Other Provide r Active Dr. Bernice Betancur MD Attending Provider Active Team Status: Active Member Role Status THONG JAFFE Primary Care Provider Active Dr. Sylvester Crooks MD Admit Provider, Attending Provid er Active [employer] , PATTERN DRAFTER-C Other Provider Active Dr. Steven Dean DO Other Provider Active Dr. Fany Dao MD Other Provider Active Tanisha Henriquez PATTERN DRAFTER-C Other Provider Active Britany White NP, PATTERN DRAFTER-C Other Provider Active Team Status: Inactive Member Role Status Dates [facility] Care Provider Active Dr. Sylvester Crooks MD Attending Provider, Referring Pr ovider Active Team Status: Inactive Member Role Status Dates [facility] Primary Care Provider Active Dr. Sylvester Crooks MD Admit Provider, Attending Provid er Active [employer] , PATTERN DRAFTER-C Other Provider Active Dr. Steven Dean DO Other Provider Active Dr. Fany Dao MD Other Provider Active Tanisha Henriquez PATTERN DRAFTER-C Other Provider Active Britany White PATTERN DRAFTER, PATTERN DRAFTER-C Other Provider Active Team Status: Active Member Role Status Dates Dr. Mariano Dao MD Family Provider Active Dr. Pete Payne MD Primary Care Provider Active Team Status: Inactive Member Role Status Dates Out [facility] Doctor Primary Care Provider Active Dr. Pete Payne MD Attending Provider Active Team Status: Inactive Member Role Status Dates Out of [facility] Doctor Primary Care Provider Active Poppy Mccracken PATTERN DRAFTER, PATTERN DRAFTER-C Attending Provider Active Team Status: Inactive Member Role Status Dates Out [facility] Doctor Primary Care Provider Active Pete ROBERTS [...] MD Primary Care Provider Active Poppy Mccracken PATTERN DRAFTER, PATTERN DRAFTER-C Attending Provider Active Team Status: Inactive Member [...] 2024 End: June 21, 2024 Poppy Mccracken PATTERN DRAFTER, PATTERN DRAFTER-C Attending Provider Active Start: June 21, 2024 [...] 2024 End: October 21, 2024 Poppy Mccracken PATTERN DRAFTER, PATTERN DRAFTER-C Attending Provider Active Start: October 21, 2024 [...] 2025 End: January 03, 2025 Poppy Mccracken PATTERN DRAFTER, PATTERN DRAFTER-C Attending Provider Active Start: January 03, 2025 [...] End: January 03, 2025 Poppy Mccracken NP, PATTERN DRAFTER-C Attending Provider Active Start: January 03, 2025 [...] 2025 End: January 03, 2025 Poppy Mccracken PATTERN DRAFTER, PATTERN DRAFTER-C Attending Provider Active Start: January 03, 2025 [...] 2025 End: January 03, 2025 Poppy Mccracken PATTERN DRAFTER, PATTERN DRAFTER-C Attending physician Active Start: January 03, 2025 [...] Activ e Start: February 21, 2025 Pete ROBETRS MD Attending physician Active Start: February 21, [...] physician Activ e Start: April 30, 2025 [facility] Attending physician Active Start: April [...] section and content) DATE CREATED AUTHOR 05/24/2025 [facility] FOR RECORDS PERTAINING TO PATIENTS WHO ARE [...] BE BASED ON THE PRIMARY CLINICAL RECORDS. [employer] [facility]. provides no warranty or guarantee of the accuracy or completeness of information in this document.
[2025-07-11 07:45] LABS: Hematocrit 35.5 % (37-47); Hemoglobin 11.5 g/dL (12.0-15.0); Immature Granulocytes Count 0.030 X10^3/uL (0.0-0.0); Mean Corp Hgb Conc 32.4 g/dL (32-36); Mean Corpuscular Volume 92.4 fL (81-99); Mean Platelet Vol. 10.1 fl (6.2-12.0); NRBC Flagged by Analyzer 0 % (0-5); Platelet Count 334 K/mm3 (150-450); RBC Distribution Width CV 13.3 % (11.6-14.6); RBC Distribution Width SD 44.9 fl (35.1-43.9); Red Blood Count 3.84 M/mm3 (4.2-5.4); White Blood Count 10.0 K/mm3 (4.4-11.0)
== END ==
LOC: OLS.WHLCAR 04:00
PROVIDERS: PCP Internal Medicine; Referring Provider Internal Medicine; Visit Provider Internal Medicine
DX: N18.9 Chronic kidney disease, unspecified (principal); D63.1 Anemia in chronic kidney disease
CPT/HCPCS: 36415; 85025